=== PATIENT | female | born 1955 | race Caucasian/White ===

== ENCOUNTER → 2018-03-17 10:04 | Outpatient (CLI) | payer MEDICAID, SELFPAY ==
--- NOTE | 2018-03-17 10:11 | MM_ITS ---
MM Dig screening mamm BI w/CAD ORDERING PHYSICIAN : Lane Pozo MD PATIENT AGE: 62 years GENDER: Female INDICATION: Routine screening.. Previous benign excisional biopsy right breast. No new areas of concern reported on history sheet. No hormones. Noncontributory family history COMPARISON:.: Only prior is a [facility] Film screen mammogram from 2011 TECHNIQUE: Standard CC and MLO images were obtained. R2 CAD reviewed. FINDINGS: . Low-density breast with diffuse generalized fatty replacement. . No dominant mass nor suspicious calcifications. In either breast There are a few small scattered benign calcifications at lateral right and left breast. These small punctate benign-appearing calcifications can be followed in one year. IMPRESSION: No areas of significant concern follow-up in one year . Overall basically Stable bilateral mammogram since outside studies 2011 BI-RADS Category: 1 Negative RECOMMENDED FOLLOW-UP: 1YR - 1 YEAR FOLLOW-UP (A letter has been sent to the patient regarding results of the study.)
== END ==
PROVIDERS: Family Provider Internal Medicine Adolescent Medicine; PCP Internal Medicine Adolescent Medicine; Visit Provider Internal Medicine Adolescent Medicine
DX: Z12.31 Encounter for screening mammogram for malignant neoplasm of breast (principal)
CPT/HCPCS: 77067

== ENCOUNTER → 2018-12-22 08:47 | Outpatient (CLI) | payer MEDICARE, BC, SELFPAY ==
--- NOTE | 2018-12-22 08:56 | MM_ITS ---
MM Dig screening mamm BI w/CAD CAD Screening COMPARISON: Digital mammograms with CAD 03/17/2018 and outside analog mammograms 06/07/2012 INDICATION: There is no personal or family history of breast cancer. There has been a previous biopsy right breast for benign disease. TECHNIQUE: Standard CC and MLO images were obtained. R2 CAD reviewed. FINDINGS: The breasts are of low density composed primarily of fat with minimal scattered fibroglandular densities in each breast. There are couple benign-appearing calcination is in each breast. There is a cardiac pacing device overlying the axillary tail left breast. There is a possible small asymmetric density right breast 6:00 position. This could very well be a summation shadow but recommend patient return for spot compression views and ultrasound if this proves to be a true lesion. No other abnormality is seen. IMPRESSION: Fatty type breast parenchyma with possible new asymmetric density right breast BI-RADS Category: 0 Need Additional Imaging Evaluation RECOMMENDED FOLLOW-UP: IMM - IMMEDIATE FOLLOW-UP RECOMMENDED (A letter has been sent to the patient regarding results of the study.)
== END ==
PROVIDERS: PCP Internal Medicine Adolescent Medicine; Visit Provider Internal Medicine Adolescent Medicine
DX: Z12.31 Encounter for screening mammogram for malignant neoplasm of breast (principal)
CPT/HCPCS: 77067

== ENCOUNTER → 2018-12-30 19:13 | Outpatient (CLI) | payer MEDICARE, BC, MEDICAID, SELFPAY ==
[2018-12-30 20:24] LABS: Basophils % 0.7 % (0.1-2.0); Eosinophils # 0.1 K/mm3 (0.0-0.4); Eosinophils % 1.7 % (0.1-12.0); Hematocrit 35.8 % (37.0-47.0); Hemoglobin 11.7 g/dL (12.2-16.2); Lymphocytes % 52.8 % (10-50); Mean Corpuscular HGB Conc 32.7 g/dL (31.8-35.4); Mean Corpuscular Hemoglobin 30.4 pg (27.0-31.2); Mean Corpuscular Volume 93.1 fl (81-99); Mean Platelet Volume 8.4 fl (7.4-10.4); Monocytes # 0.5 K/mm3 (0.1-1.0); Monocytes % 8.3 % (1.7-9.3); Neutrophils # 2.1 K/mm3 (1.8-7.8); Neutrophils % 36.5 % (37.0-80.0); Platelet Count 212 K/mm3 (142-424); Red Blood Count 3.85 M/mm3 (4.20-5.40); Red Cell Distribution Width 14.6 % (11.5-17.5); White Blood Count 5.7 K/mm3 (4.8-10.8)
[2018-12-30 20:26] LABS: MANUAL DIFFERENTIAL MANUAL DIFFERENTIAL (MANUAL DIFF)
[2018-12-30 20:53] LABS: Alanine Aminotransferase 29 U/L (12-78); Albumin Level 2.8 gm/dL (3.4-5.0); Albumin/Globulin Ratio 0.7 (1.1-1.8); Alkaline Phosphatase 78 U/L (46-116); Aspartate Amino Transferase 25 U/L (15-37); Bilirubin,Total 0.2 mg/dL (0.2-1.0); Blood Urea Nitrogen 15 mg/dL (7-18); Calcium 8.7 mg/dL (8.5-10.1); Carbon Dioxide 34 mmol/L (21.0-32.0); Chloride 100 mmol/L (98-107); Creatinine,Serum 0.69 mg/dL (0.55-1.02); Estimated Glomerular Filt Rate 85 ml/min (>60); GFR (African American) 103 ML/MIN (>60); Globulin 3.9 gm/dl (1.3-3.2); Glucose 85 mg/dL (74-106); Sodium 141 mmol/L (136-145); Total Protein,Serum 6.7 gm/dL (6.4-8.2)
[2018-12-30 23:22] LABS: Anisocytosis 1+; Eosinophils % 5 % (0-3); Lymphocytes % 58 % (10-50); Monocytes % 6 % (2-9); Neutrophils % 30 % (42-76); Platelet Estimate Normal; Total Cells Counted 100
== END ==
PROVIDERS: Visit Provider Internal Medicine Adolescent Medicine
DX: D64.9 Anemia, unspecified (principal)
CPT/HCPCS: 80053; 85007; 85025

== ENCOUNTER → 2018-12-31 14:47 | Outpatient (CLI) | payer MEDICARE, BC, MEDICAID, SELFPAY ==
[2018-12-31 14:51] LABS: Microscopic, Urine URINE MICROSCOPIC (MICROSCOPIC)
[2018-12-31 15:07] LABS: Appearance,Urine CLEAR (Clear); Bilirubin,Urine Negative (Negative); Blood, Urine Negative (Negative); Color,Urine DK YELLOW (Yellow); Glucose,Urine (UA) Negative (Negative); Ketones,Urine TRACE (Negative); Leukocyte Esterase,Urine Negative (Negative); Nitrate,Urine Negative (Negative); Protein,Urine Negative (Negative); Specific Gravity, Urine 1.025 (1.005-1.030); Urobilinogen,Urine 0.2 EU/dl (0.2)
[2018-12-31 16:28] LABS: Bacteria,Urine Trace /lpf; WBC,Urine Occasional #/hpf (0-3)
== END ==
PROVIDERS: Visit Provider Internal Medicine Adolescent Medicine
DX: R56.9 Unspecified convulsions (principal)
CPT/HCPCS: 81001

== ENCOUNTER → 2019-02-10 14:22 | Outpatient (CLI) | payer MEDICARE, MEDICAID, SELFPAY ==
--- NOTE | 2019-02-10 14:28 | MM_ITS ---
MM Dig mamm DX unilat RT CAD, US breast RT complete INDICATION: Follow-up abnormal mammogram ORDERING PHYSICIAN: Lane Pozo MD PATIENT AGE: 63 years COMPARISON: 12/22/2018 TECHNIQUE: Problem-solving views of the right wrist along with right breast ultrasound FINDINGS: Average fibroglandular tissue. Minimal focus of asymmetric density in the central aspect of the right breast cc view are somewhat less distinct on spot compression views. There is a faint nodular density noted in the lower one half of the right breast on the MLO view at 5 x 3 mm. Right breast ultrasound: No cystic or solid nodules. Small nodes are present in the axilla. IMPRESSION: There is some minimal asymmetric density in the central aspect of the right breast which persist on the spot compression views but not demonstrated on the orthogonal view. A faint nodular area is noted in the inferior right breast on the MLO view. These findings are probably benign. Six-month follow-up recommended. Ultrasound is unremarkable BI-RADS Category: 3 Probably Benign Finding Short Term Follow-up RECOMMENDED FOLLOW-UP: 6M - 6 MONTH FOLLOW-UP (A letter has been sent to the patient regarding results of the study.)
== END ==
PROVIDERS: PCP Internal Medicine Adolescent Medicine; Visit Provider Internal Medicine Adolescent Medicine
DX: R92.8 Other abnormal and inconclusive findings on diagnostic imaging of breast (principal)
CPT/HCPCS: 76641; 77065

== ENCOUNTER → 2019-04-05 09:10 | Outpatient (CLI) | payer MEDICARE, MEDICAID, SELFPAY ==
--- NOTE | 2019-04-05 09:15 | CT_ITS ---
CT lung screening EXAM: CT LUNG LOW DOSE WO CONTRAST HISTORY: 30 pack-year smoking history, asymptomatic for lung cancer ITS.REASON: HX TOBACCO USE ORDERING PHYSICIAN: Torri Cooney APRN PATIENT AGE: 63 years COMPARISON: None TECHNIQUE: The exam was performed . On a GE Light Speed [address] scanner using 2.90 mGy CTDI. A low dose helical CT CHEST was performed on a multi-detector scanner. All CT scans at the facility use one or more dose reduction, viz: automated exposure control, ma/kV adjustment per patient size (including targeted exams where dose is matched to indication, i.e. head), or iterative reconstruction technique. The LDCT was performed in a facility that meets the criteria for the screening program. Data regarding this exam was submitted to ACR which is an approved registry. The order for this exam indicates that it came as a result of a lung cancer screening counseling shard decision-making visit that included all the elements required of such a visit including smoking cessation. The radiologist interpreting this exam meets the CMS criteria for the LDCT lung cancer screening program. The exam is reported using the Lung-RADS classification scale and reported to the ACR registry. NOTE: This study was performed for the specific purposes of lung cancer screening and is not an alternative to diagnostic chest CT. RADIATION DOSE: CTDI vol(CT dose Index-volume) = 2.90mG DLP (Dose Length Product) = 96.38 mGcm FINDINGS: Artifact is present from pacemaker placed by left subclavian approach. Coronary artery stents and/or calcifications noted. 5 mm noncalcified nodule right middle lobe axial image #41. Atelectatic or fibrotic change in the lingula. IMPRESSION: 1. Lung RADS Category: 3, probably benign 5 mm nodule right middle lobe 2. Other findings: coronary artery disease RECOMMENDATIONS: [address] follow-up
== END ==
PROVIDERS: PCP Nurse Practitioner Family; Visit Provider Nurse Practitioner Family
DX: Z12.2 Encounter for screening for malignant neoplasm of respiratory organs (principal); Z87.891 Personal history of nicotine dependence

== ENCOUNTER 2019-04-23 17:28 | Observation (INO) ==
[2019-04-23 17:49] LABS: ABG Base Excess 5.5 mmol/L (-2.4-2.3); ABG HCO3 30.1 mmhg (22.0-26.0); ABG Oxygen Saturation 95 % (90-100); ABG PCO2 48.4 mmhg (35.0-45.0); ABG PH 7.41 mmol/L (7.35-7.45); ABG PO2 81.8 mmhg (80-100); ABG TCO2 31.6 mmhg (23-27); Allen's Test Y; Oxygen 6 %
--- NOTE | 2019-04-23 18:05 | Emergency Department Note ---
ED Disposition Clinical Impression: COPD (chronic obstructive pulmonary disease), Obesity, ZULEYKA (obstructive sleep apnea), Hypertension Disposition: Still a Patient Condition on Discharge: Fair Referrals: Provider,Referral, [Referring] - - Critical Care Critical Care Time: No Attestation: On , the high probability of a clinically significant, sudden or life threatening deterioration of the following system(s) required my full and direct attention, intervention and personal management. The time I documented below is in addition to time spent performing reported procedures but includes the follo wing listed in this critical care notation. Medical Decision Making - Medical Records Medical records reviewed: Yes: I reviewed the patient's medical records. - Marc Inquiry Pt receiving controlled substance: No Marc was queried for this patient: No Vital Signs: 04/23/19 17:29 04/23/19 17:52 04/23/19 17:53 Temperature 98 F Temperature Source Oral Pulse Rate 77 80 Pulse Rate [Left Radial] 90 Respiratory Rate 24 Blood Pressure [Right Arm] 123/95 H Blood Pressure Mean [Right Arm] 104 Blood Pressure Source [Right Arm] Automatic Cuff Blood Pressure Position [Right Arm] Sitting 02 Sat by Pulse Oximetry 95 Oxygen Delivery Method Nasal Cannula Oxygen Flow Rate (LPM) 6 04/23/19 19:07 Temperature Temperature Source Pulse Rate Pulse Rate [Left Radial] 91 H Respiratory Rate Blood Pressure [Right Arm] 130/64 Blood Pressure Mean [Right Arm] 86 Blood Pressure Source [Right Arm] Automatic Cuff Blood Pressure Position [Right Arm] Sitting 02 Sat by Pulse Oximetry 93 L Oxygen Delivery Method Nasal Cannula Oxygen Flow Rate (LPM) 2 - Lab Data Lab Results 04/23/19 17:48: Specimen Source R/r, O2 % 6, ABG pH 7.41, ABG pCO2 48.4 H, ABG pO2 81.8, ABG HCO3 30.1 H, ABG Total CO2 31.6 H, ABG O2 Saturation 95, ABG Base Excess 5.5 H, Abdirizak Test Y 04/23/19 18:58: WBC 7.9, RBC 3.73 L, Hgb 10.4 L, Hct 34.1 L, MCV 91.5, MCH 27.9, MCHC 30.5 L, RDW 15.1, Plt Count 237, MPV 7.7, Neut % (Auto) 72.5, Lymph % (Auto) 18.4, [place] % (Auto) 8.6, Eos % (Auto) 0.2, Baso % (Auto) 0.3, Neut # (Auto) 5.8, Lymph # (Auto) 1.5, [place] # (Auto) 0.7, Eos # (Auto) 0.0, Baso # (Auto) 0.0 04/23/19 18:58: Sodium 139, Potassium 4.5, Chloride 100, Carbon Dioxide 29, Anion Gap 14.5, BUN 12, Creatinine 0.65, Estimated Creat Clear 76, Estimated GFR 91, Est GFR ( Amer) 111, Glucose 118 H, Calcium 8.9, Total Bilirubin 0.3, AST 24, ALT 30, Alkaline Phosphatase 79, Troponin I 0.02, Total Protein 7.9, Albumin 2.6 L, Globulin 5.3 H, Albumin/Globulin Ratio 0.5 L, Total Valproic Acid 64.4 04/23/19 18:58: Lactate 0.7 04/23/19 18:58: PT 12.0 H, INR 1.16 H, APTT 33.4 04/23/19 18:58: Urine Color Yellow, Urine Appearance Clear, Urine pH 7.0, Ur Specific [place] 1.020, Urine Protein 1+, Urine Glucose (UA) Negative, Urine Ketones Trace, Urine Blood 1+, Urine Nitrate Negative, Urine Bilirubin Negative, Urine Urobilinogen 1.0, Ur Leukocyte Esterase Negative, Urine RBC 5-10, Ur Squamous Epith Cells 5-10 Result diagrams: 04/23/19 18:58 04/23/19 18:58 Orders (Tests/Meds): ED MEDICATIONS Discontinued Medications Generic Name Dose Route Start Last Admin Trade Name Christopherq PRN Reason Stop Dose Admin Albuterol/Ipratropium 3 ml 04/23/19 19:40 Duoneb 3ml Neb IH 04/23/19 19:41 ONCE ONE Methylprednisolone Sodium Succinate 125 mg 04/23/19 17:42 04/23/19 19:17 Solu-Medrol 125mg/2ml Vial IV 04/23/19 17:43 125 mg ONCE ONE Administration ORDERS Category Date Time Status Chest XR -- portable [XR chest portable] Stat Exams 04/23/19 17:36 Taken BNP [B-Type Natriuretic Peptide] Stat Lab 04/23/19 18:58 Received D-Dimer Stat Lab 04/23/19 18:58 Results Levetiracetam (Keppra) Stat Lab 04/23/19 18:58 Received PT/PTT Stat Lab 04/23/19 18:58 Results Blood Culture Stat Micro 04/23/19 19:30 Ordered Arterial Blood Gas Stat RT 04/23/19 17:36 Ordered - Radiology Data #1 Image(s): Chest Image Reviewed: Yes I reviewed the patient's radiology image Preliminary Findings: Abnormal Chest x-ray portable: underpenetrated, postop changes, pulmonary vascular congestion, no pulmonary edema. - ECG Data Tracing #1 Normal sinus rhythm 91/min baseline artifact no acute findings ECG initial impression date: 04/23/19 ECG initial impression time: 19:45 Medical Decision Narrative: The patient improved after Solu-Medrol and neb treatments. Came less shaky and more talkative. Her EKG and troponin was negative for acute findings. Her BNP was 455 and her dimer was 650. The patient continued to deny having chest pain, shortness of breath has improved. I discussed with Dr. Pozo who was in the thoughts that she may have an upper respiratory infection that triggered an airway disease. He requested upper respiratory panel, IV antibiotics and continued neb treatments. The patient was admitted in a stable condition. General Adult HPI - General Chief complaint: Shortness of Breath/Dyspnea Stated complaint: sob Time Seen by Provider: 04/23/19 17:40 Mode of Arrival: EMS Limitations: No Limitations Description of Symptoms (Recalled from ER Triage Doc. by RN): to ed per squad with c/o weakness, sob, low o2 sats starting this am. NH states o2 sats of 82 % 4Lpt diaphoretic . pt wears 2L o2 24/7. pt with intermittent episodes of confusion. pt alert oriented to person and place. pt with snoring resp. currently on 6L o2 pt with diminished breath sounds dora. cpta duo neb - History of Present Illness HPI narrative: 63 years old white female with history of COPD who developed shortness of breath, weakness and became confused. Upon EMS arrival her saturations were in the 80s she received neb treatment oxygen and was brought to the ED for evaluation. Onset (ago): hour(s) Radiation: non-radiation Relieving factors: none Exacerbating factors: none Associated symptoms: denies other symptoms - Related Data Home Medications Medication Instructions Recorded Confirmed Amitriptyline HCl [Elavil 50mg 100 mg PO HS 04/23/19 04/23/19 tablet] Aspirin [Aspir 81] 81 mg PO DAILY 04/23/19 04/23/19 Atorvastatin Calcium [Atorvastatin 40 mg PO DAILY 04/23/19 04/23/19 40mg Tab] Carvedilol [Carvedilol 6.25mg Tab] 6.25 mg PO DAILY 04/23/19 04/23/19 Cetirizine HCl [Zyrtec] 10 mg PO DAILY 04/23/19 04/23/19 Clopidogrel Bisulfate [Plavix 75mg 75 mg PO DAILY 04/23/19 04/23/19 Tab] Divalproex Sodium [Depakote] 1,000 mg PO BID 04/23/19 04/23/19 Docusate Sodium [Colace] 100 mg PO DAILY 04/23/19 04/23/19 Donepezil HCl [Aricept 10mg 10 mg PO HS 04/23/19 04/23/19 tablet] Fluticasone Propionate [Flonase 1 spr NS DAILY 04/23/19 04/23/19 50mcg nasal spray 16gm] Furosemide [Lasix 40mg tablet] 40 mg PO DAILY 04/23/19 04/23/19 LORazepam [Ativan 2mg/ml inj] 2 mg IM NEEDED PRN 04/23/19 04/23/19 OXcarbazepine [Trileptal] 600 mg PO BID 04/23/19 04/23/19 Omeprazole Magnesium [Prilosec Otc 20 mg PO DAILY 04/23/19 04/23/19 20mg Tab] Omeprazole [Omeprazole 40mg 40 mg PO DAILY 04/23/19 04/23/19 Capsule] Potassium Chloride in 0.9%NaCl 20 meq PO DAILY 04/23/19 04/23/19 [Potassium Cl Conc 20 Meq/20 ml] levETIRAcetam [Keppra] 2,000 mg PO BID 04/23/19 04/23/19 levoFLOXacin [Levaquin 250mg 250 mg PO DAILY 04/23/19 04/23/19 tab] levoFLOXacin [Levaquin 500mg 500 mg PO DAILY 04/23/19 04/23/19 tab] predniSONE [Deltasone 20mg 20 mg PO BID 04/23/19 04/23/19 tablet] Allergies Allergy/AdvReac Type Severity Reaction Status Date / Time alendronate sodium Allergy Unknown I-HIVES Verified 04/23/19 19:17 [From FOSAMAX] Penicillins [PENICILLINS] Allergy Unknown I-HIVES Verified 04/23/19 19:17 Sulfa (Sulfonamide Allergy Unknown I-HIVES Verified 04/23/19 19:17 Antibiotics) [SULFA (SULFONAMIDE ANTIBIOTICS)] [facility] History - Hepatitis A Screen Drug use history?: No High risk sexual behaviors?: No History of sexually transmitted infection?: No Currently employed?: No Childcare worker?: No Do you have indoor plumbing?: Yes Do you have electricity?: Yes Attestation statement:: This patient has been screened for Hepatitis A risk factors. I have reviewed the patient's past medical history: Yes - Social History Alcohol Intake: never Occupational Status: other - Psychiatric History Expresses thoughts of harming self/others: None Suicide Plan Description: No Plan ROS Obtained: Yes All systems reviewed & no additional complaints Physical Exam - General General appearance: alert, in no apparent distress - Head Head exam: atraumatic, normocephalic, normal inspection - Eye Eye exam: Present: normal appearance, PERRL, EOMI - ENT ENT exam: Present: normal exam, normal oropharynx, mucous membranes moist, TM's normal bilaterally, normal external ear exam - Neck Neck exam: Present: normal inspection, full ROM, trachea midline. Absent: meningismus, lymphadenopathy - Chest Chest inspection: Present: normal inspection, symmetric chest wall rise. Absent: tenderness - Respiratory Respiratory exam: Present: normal lung sounds bilaterally. Absent: respiratory distress - Cardiovascular Cardiovascular exam: Present: regular rate, normal rhythm, normal heart sounds. Absent: JVD - Abdominal Exam Abdominal exam: Present: soft, normal bowel sounds. Absent: distention, tend erness, guarding - Extremities Exam Extremities exam: Present: normal inspection, full ROM, normal capillary refill. Absent: calf tenderness - Back Exam Back exam: Present: normal inspection. Absent: tenderness - Neurological Exam Neurological exam: Present: alert, oriented X3, CN II-XII intact, motor sensory deficit, reflexes normal - Psychiatric Psychiatric exam: Present: normal affect, normal mood - Skin Skin exam: Present: warm, dry, intact, normal color - Lymphatic Lymphatic Findings: no adenopathy
[2019-04-23 19:16] LABS: Microscopic, Urine URINE MICROSCOPIC (MICROSCOPIC)
[2019-04-23 19:29] LABS: Basophils % 0.3 % (0.1-2.0); Eosinophils % 0.2 % (0.1-12.0); Hematocrit 34.1 % (37.0-47.0); Hemoglobin 10.4 g/dL (12.2-16.2); Lymphocytes # 1.5 K/mm3 (0.7-4.5); Lymphocytes % 18.4 % (10-50); Mean Corpuscular HGB Conc 30.5 g/dL (31.8-35.4); Mean Corpuscular Volume 91.5 fl (81-99); Mean Platelet Volume 7.7 fl (7.4-10.4); Monocytes # 0.7 K/mm3 (0.1-1.0); Monocytes % 8.6 % (1.7-9.3); Neutrophils # 5.8 K/mm3 (1.8-7.8); Neutrophils % 72.5 % (37.0-80.0); Platelet Count 237 K/mm3 (142-424); Red Blood Count 3.73 M/mm3 (4.20-5.40); Red Cell Distribution Width 15.1 % (11.5-17.5); White Blood Count 7.9 K/mm3 (4.8-10.8)
[2019-04-23 19:37] LABS: Activated Partial Thrombo Time 33.4 seconds (23.6-34.0); INR 1.16 (0.9-1.1)
[2019-04-23 19:44] LABS: Albumin Level 2.6 gm/dL (3.4-5.0); Albumin/Globulin Ratio 0.5 (1.1-1.8); Anion Gap 14.5 mEq/L (5-15); Appearance,Urine CLEAR (Clear); Bilirubin,Total 0.3 mg/dL (0.2-1.0); Bilirubin,Urine Negative (Negative); Blood, Urine 1+ (Negative); Calcium 8.9 mg/dL (8.5-10.1); Color,Urine YELLOW (Yellow); Globulin 5.3 gm/dl (1.3-3.2); Glucose,Urine (UA) Negative (Negative); Ketones,Urine TRACE (Negative); Leukocyte Esterase,Urine Negative (Negative); Protein,Urine 1+ (Negative); Total Protein,Serum 7.9 gm/dL (6.4-8.2)
[2019-04-24 01:48] LABS: Coronavirus 229E Not Detected (NotDetected); Coronavirus NL63 Not Detected (NotDetected); Coronavirus OC43 Not Detected (NotDetected); Coronovirus HKU1,PCR Not Detected (NotDetected)
[2019-04-24 05:41] LABS: Basophils % 0.3 % (0.1-2.0); Eosinophils % 0.4 % (0.1-12.0); Hemoglobin 10.1 g/dL (12.2-16.2); Lymphocytes # 1.6 K/mm3 (0.7-4.5); Lymphocytes % 21.4 % (10-50); Mean Corpuscular HGB Conc 30.6 g/dL (31.8-35.4); Mean Corpuscular Volume 91.5 fl (81-99); Mean Platelet Volume 7.7 fl (7.4-10.4); Monocytes # 0.5 K/mm3 (0.1-1.0); Monocytes % 6.7 % (1.7-9.3); Neutrophils # 5.4 K/mm3 (1.8-7.8); Neutrophils % 71.2 % (37.0-80.0); Platelet Count 237 K/mm3 (142-424); Red Cell Distribution Width 14.9 % (11.5-17.5); White Blood Count 7.6 K/mm3 (4.8-10.8)
[2019-04-24 06:02] LABS: Anion Gap 11.1 mEq/L (5-15); Blood Urea Nitrogen 12 mg/dL (7-18); Calcium 8.8 mg/dL (8.5-10.1); Carbon Dioxide 31 mmol/L (21.0-32.0); Chloride 102 mmol/L (98-107); Glucose 107 mg/dL (74-106); Sodium 140 mmol/L (136-145)
--- NOTE | 2019-04-24 09:19 | History & Physical Report ---
*Admission Date: 04/23/19 *Chief complaint: Weakness, cough/congestion *History of present illness: 63-year-old white female with seizure disorder and COPD, resident of [facility] [place], who was recently treated with Levaquin therapy for COPD exacerbation, cough and mucus production who continued to feel worse and was transferred to the emergency department. Labs were not significantly abnormal but patient had crackles, rhonchi and felt very badly, admitted to hospital for COPD exacerbation and further antibiotic therapy, pulmonary toilet and more diagnostic testing. [facility] History I have reviewed the patient's past medical history: Yes Medical History: Reports:: Hypertension, Myocardial Infarction Denies:: Cancer, Diabetes Mellitus Type 1, Diabetes Mellitus Type 2, Internal Pacemaker, MRSA *Have you ever received a pneumonia vaccine?: Yes *Have you received a flu vaccine this season?: No Other Surgeries: No: Pacemaker Amputation: No Fractures: No - *Social History Smoking Status: Former smoker Tobacco Type: cigarettes # Packs/Day (cigarettes): 2 Alcohol Intake: never *Occupational Status:: retired, other Housing: [facility] *Travel in the last 8 weeks: Outside the [facility] - Psychiatric History Expresses thoughts of harming self/others: None Suicide Plan Description: No Plan Family Hx:: Unable to obtain, No significant family history Review of Systems - Review of Systems Review of systems:: pertinent systems reviewed and negative unless documented below This morning patient states she feels better, continues to suffer from a cough, Denies chest pain, abdominal pain, Meds Home Medications Medication Instructions Recorded Confirmed Type Amitriptyline HCl [Elavil 50mg 100 mg PO HS 04/23/19 04/24/19 History tablet] Aspirin [Aspir 81] 81 mg PO DAILY 04/23/19 04/24/19 History Atorvastatin Calcium [Atorvastatin 40 mg PO DAILY 04/23/19 04/24/19 History 40mg Tab] Carvedilol [Carvedilol 6.25mg Tab] 6.25 mg PO DAILY 04/23/19 04/24/19 History Cetirizine HCl [Zyrtec] 10 mg PO DAILY 04/23/19 04/24/19 History Clopidogrel Bisulfate [Plavix 75mg 75 mg PO DAILY 04/23/19 04/24/19 History Tab] Divalproex Sodium [Depakote] 1,000 mg PO BID 04/23/19 04/24/19 History Docusate Sodium [Colace] 100 mg PO DAILY 04/23/19 04/24/19 History Donepezil HCl [Aricept 10mg 10 mg PO HS 04/23/19 04/24/19 History tablet] Fluticasone Propionate [Flonase 1 spr NS DAILY 04/23/19 04/24/19 History 50mcg nasal spray 16gm] Furosemide [Lasix 40mg tablet] 40 mg PO DAILY 04/23/19 04/24/19 History LORazepam [Ativan 2mg/ml inj] 2 mg IM NEEDED PRN 04/23/19 04/24/19 History OXcarbazepine [Trileptal] 600 mg PO BID 04/23/19 04/24/19 History Omeprazole Magnesium [Prilosec Otc 20 mg PO DAILY 04/23/19 04/24/19 History 20mg Tab] Omeprazole [Omeprazole 40mg 40 mg PO DAILY 04/23/19 04/24/19 History Capsule] levETIRAcetam [Keppra] 2,000 mg PO BID 04/23/19 04/24/19 History levoFLOXacin [Levaquin 250mg 250 mg PO DAILY 04/23/19 04/24/19 History tab] levoFLOXacin [Levaquin 500mg 500 mg PO DAILY 04/23/19 04/24/19 History tab] predniSONE [Deltasone 20mg 20 mg PO BID 04/23/19 04/24/19 History tablet] Potassium Chloride [Klor-con 20 20 meq PO BID 04/24/19 04/24/19 History mEq tablet] Allergies Allergy/AdvReac Type Severity Reaction Status Date / Time alendronate sodium Allergy Unknown I-HIVES Verified 04/23/19 23:36 [From FOSAMAX] Penicillins [PENICILLINS] Allergy Unknown I-HIVES Verified 04/23/19 23:36 Sulfa (Sulfonamide Allergy Unknown I-HIVES Verified 04/23/19 23:36 Antibiotics) [SULFA (SULFONAMIDE ANTIBIOTICS)] Exam Vital signs and Labs for Last 24 Hours: Temp Pulse Resp BP Pulse Ox 97.3 F L 74 20 162/79 H 94 L 04/24/19 07:57 04/24/19 07:57 04/24/19 07:57 04/24/19 07:57 04/24/19 07:57 Laboratory Results - last 24 hr 04/23/19 17:48: Specimen Source R/r, O2 % 6, ABG pH 7.41, ABG pCO2 48.4 H, ABG pO2 81.8, ABG HCO3 30.1 H, ABG Total CO2 31.6 H, ABG O2 Saturation 95, ABG Base Excess 5.5 H, Abdirizak Test Y 04/23/19 18:58: WBC 7.9, RBC 3.73 L, Hgb 10.4 L, Hct 34.1 L, MCV 91.5, MCH 27.9, MCHC 30.5 L, RDW 15.1, Plt Count 237, MPV 7.7, Neut % (Auto) 72.5, Lymph % (Auto) 18.4, [place] % (Auto) 8.6, Eos % (Auto) 0.2, Baso % (Auto) 0.3, Neut # (Auto) 5.8, Lymph # (Auto) 1.5, [place] # (Auto) 0.7, Eos # (Auto) 0.0, Baso # (Auto) 0.0 04/23/19 18:58: Sodium 139, Potassium 4.5, Chloride 100, Carbon Dioxide 29, Anion Gap 14.5, BUN 12, Creatinine 0.65, Estimated Creat Clear 76, Estimated GFR 91, Est GFR ( Amer) 111, Glucose 118 H, Calcium 8.9, Total Bilirubin 0.3, AST 24, ALT 30, Alkaline Phosphatase 79, Troponin I 0.02, Total Protein 7.9, Albumin 2.6 L, Globulin 5.3 H, Albumin/Globulin Ratio 0.5 L, Total Valproic Acid 64.4 04/23/19 18:58: Lactate 0.7 04/23/19 18:58: B-Natriuretic Peptide 455 H 04/23/19 18:58: PT 12.0 H, INR 1.16 H, APTT 33.4, D-Dimer 593 H* 04/23/19 18:58: Urine Color Yellow, Urine Appearance Clear, Urine pH 7.0, Ur Specific [place] 1.020, Urine Protein 1+, Urine Glucose (UA) Negative, Urine Ketones Trace, Urine Blood 1+, Urine Nitrate Negative, Urine Bilirubin Negative, Urine Urobilinogen 1.0, Ur Leukocyte Esterase Negative, Urine RBC 5-10, Ur Squamous Epith Cells 5-10 04/23/19 23:15: Troponin I < 0.02 04/24/19 01:30: Chlamy pneumoniae PCR Not detected, Adenovirus (PCR) Not detected, B. pertussis DNA (PCR) Not detected, Coronavirus OC43 (PCR) Not detected, Coronavirus HKU1 (PCR) Not detected, Coronavirus 229E (PCR) Not detected, Coronavirus NL63 (PCR) Not detected, Human Metapneumovir PCR Not detected, Influenza A (H1) PCR Not detected, Influ A (H1N1/09) PCR Not detected, Influenza A (H3) PCR Not detected, Influenza Type A (PCR) Not detected, Influenza Type B (PCR) Not detected, M. pneumoniae (PCR) Not detected, Parainfluenza 1 (PCR) Not detected, Parainfluenza 2 (PCR) Not detected, Parainfluenza 3 (PCR) Not detected, Parainfluenza 4 (PCR) Not detected, RSV (PCR) Not detected, Entero/Rhino (PCR) Not detected 04/24/19 05:15: Sodium 140, Potassium 4.1, Chloride 102, Carbon Dioxide 31, Anion Gap 11.1, BUN 12, Creatinine 0.64, Estimated Creat Clear 46, Estimated GFR 93, Est GFR ( Amer) 113, Glucose 107 H, Calcium 8.8, Troponin I < 0.02 04/24/19 05:15: WBC 7.6, RBC 3.60 L, Hgb 10.1 L, Hct 33.0 L, MCV 91.5, MCH 28.0, MCHC 30.6 L, RDW 14.9, Plt Count 237, MPV 7.7, Neut % (Auto) 71.2, Lymph % (Auto) 21.4, [place] % (Auto) 6.7, Eos % (Auto) 0.4, Baso % (Auto) 0.3, Neut # (Auto) 5.4, Lymph # (Auto) 1.6, [place] # (Auto) 0.5, Eos # (Auto) 0.0, Baso # (Auto) 0.0 I & O for Last 24 hours: Intake & Output 04/21/19 04/22/19 04/23/19 04/24/19 11:59 11:59 11:59 11:59 Intake Total 404 / 404 Balance 404 / 404 Weight 241 lb 3 oz Narrative: Patient is alert. Responsive. States she feels better. Cranial nerves intact, Rhonchi and crackles in both lower lung aburto. Abdomen soft and nontender. No edema noted. ENT exam clear. Neurologic exam nonfocal. Assessment and Plan (1) COPD (chronic obstructive pulmonary disease) Current visit: Yes Status: Acute Category: Medical Code(s): J44.9 - Chronic obstructive pulmonary disease, unspecified Possible exacerbation but chest x-ray is somewhat suspicious for fluid overload. Repeat PA and lateral chest x-ray today. Elevated BNP noted but patient clinically does not appear to be fluid overloaded. (2) ZULEYKA (obstructive sleep apnea) Current visit: Yes Status: Acute Category: Medical Code(s): G47.33 - Obstructive sleep apnea (adult) (pediatric) (3) Obesity Current visit: Yes Status: Acute Category: Medical Code(s): E66.9 - Obesity, unspecified
--- NOTE | 2019-04-24 10:59 | Pharmacy Consult Notes ---
[facility] VTE Monitoring - Patient Demographics Admission date: 04/24/19 Report Date: 04/24/19 Time: 10:59 Allergies/Adverse Reactions: Patient Allergies alendronate sodium [From FOSAMAX] Allergy (Unknown, Verified 04/23/19 23:36) I-HIVES Penicillins [PENICILLINS] Allergy (Unknown, Verified 04/23/19 23:36) I-HIVES Sulfa (Sulfonamide Antibiotics) [SULFA (SULFONAMIDE ANTIBIOTICS)] Allergy (Unknown, Verified 04/23/19 23:36) I-HIVES Height: 1.6 m Weight: 109.401 kg Patient Problems: Current Active Problems (Updated 04/23/19 @ 20:09 by Rodriguez Larkin MD) COPD (chronic obstructive pulmonary disease) (Acute) Obesity (Acute) ZULEYKA (obstructive sleep apnea) (Acute) Hypertension (Acute) - VTE Risk Labs: VTE Related Lab Results Hgb 10.1 g/dL (12.2-16.2) L 04/24/19 05:15 Hct 33.0 % (37.0-47.0) L 04/24/19 05:15 Plt Count 237 K/mm3 (142-424) 04/24/19 05:15 PT 12.0 seconds (9.4-11.8) H 04/23/19 18:58 INR 1.16 (0.9-1.1) H 04/23/19 18:58 APTT 33.4 seconds (23.6-34.0) 04/23/19 18:58 BUN 12 mg/dL (7-18) 04/24/19 05:15 Creatinine 0.64 mg/dL (0.55-1.02) 04/24/19 05:15 Estimated Creat Clear 46 mL/min (50-200) 04/24/19 05:15 VTE Score: 9 VTE Risk Level: Moderate Risk - Prophylaxis Types of VTE Prophylaxis: TEDS Knee High (SONI HOSE ORDER PLACED)
[2019-04-25 06:57] LABS: Basophils # 0.1 K/mm3 (0-0.2); Basophils % 0.6 % (0.1-2.0); Eosinophils # 0.1 K/mm3 (0.0-0.4); Eosinophils % 0.6 % (0.1-12.0); Hematocrit 39.3 % (37.0-47.0); Hemoglobin 12.2 g/dL (12.2-16.2); Lymphocytes # 2.3 K/mm3 (0.7-4.5); Lymphocytes % 22.7 % (10-50); Mean Corpuscular HGB Conc 31.2 g/dL (31.8-35.4); Mean Corpuscular Volume 90.8 fl (81-99); Mean Platelet Volume 7.3 fl (7.4-10.4); Monocytes # 0.8 K/mm3 (0.1-1.0); Monocytes % 7.6 % (1.7-9.3); Neutrophils # 6.9 K/mm3 (1.8-7.8); Neutrophils % 68.4 % (37.0-80.0); Platelet Count 277 K/mm3 (142-424); Red Blood Count 4.33 M/mm3 (4.20-5.40); White Blood Count 10.1 K/mm3 (4.8-10.8)
[2019-04-25 07:31] LABS: Albumin Level 2.6 gm/dL (3.4-5.0); Albumin/Globulin Ratio 0.6 (1.1-1.8); Anion Gap 14.3 mEq/L (5-15); Bilirubin,Total 0.3 mg/dL (0.2-1.0); Calcium 8.8 mg/dL (8.5-10.1); Globulin 4.6 gm/dl (1.3-3.2); Total Protein,Serum 7.2 gm/dL (6.4-8.2)
--- NOTE | 2019-04-25 08:42 | Progress Note ---
Internal Medicine - PN: Subj *Date: 04/25/19 *Time: 08:41 Interval history: Patient sitting up on the side of the chair/bed, feels better, eating breakfast vigorously. Exam Vital signs and Labs for Last 24 Hours: Temp Pulse Resp BP Pulse Ox 97.8 F 101 H 20 159/86 H 89 L 04/25/19 04:00 04/25/19 07:33 04/25/19 04:00 04/25/19 04:00 04/25/19 07:33 Laboratory Results - last 24 hr 04/25/19 06:28: WBC 10.1 D, RBC 4.33, Hgb 12.2, Hct 39.3, MCV 90.8, MCH 28.3, MCHC 31.2 L, RDW 15.0, Plt Count 277, MPV 7.3 L, Neut % (Auto) 68.4, Lymph % (Auto) 22.7, Hendricks % (Auto) 7.6, Eos % (Auto) 0.6, Baso % (Auto) 0.6, Neut # (Auto) 6.9, Lymph # (Auto) 2.3, Hendricks # (Auto) 0.8, Eos # (Auto) 0.1, Baso # (Auto) 0.1 04/25/19 06:28: Sodium 140, Potassium 4.3, Chloride 100, Carbon Dioxide 30, Anion Gap 14.3, BUN 17 D, Creatinine 0.68, Estimated Creat Clear 46, Estimated GFR 87, Est GFR ( Amer) 105, Glucose 78, Calcium 8.8, Total Bilirubin 0.3, AST 35 D, ALT 31, Alkaline Phosphatase 85, Total Protein 7.2, Albumin 2.6 L, Globulin 4.6 H, Albumin/Globulin Ratio 0.6 L I & O for Last 24 hours: Intake & Output 04/22/19 04/23/19 04/24/19 04/25/19 11:59 11:59 11:59 11:59 Intake Total 404 / 404 850 / 850 Balance 404 / 404 850 / 850 Weight 241 lb 3 oz Microbiology Reports for the Last 24 Hours: Microbiology 04/24/19 08:47 Sputum - Expectorated Sputum Gram Stain - Final Narrative: Some rhonchi in both bases, minor crackles. However better air entry. Heart rate regular. Abdomen soft, tremulous but this is her baseline. Alert, oriented x3. Assessment and Plan (1) COPD (chronic obstructive pulmonary disease) Current visit: Yes Status: Acute Category: Medical Code(s): J44.9 - Chronic obstructive pulmonary disease, unspecified (2) ZULEYKA (obstructive sleep apnea) Current visit: Yes Status: Acute Category: Medical Code(s): G47.33 - Obstructive sleep apnea (adult) (pediatric) (3) Obesity Current visit: Yes Status: Acute Category: Medical Code(s): E66.9 - Obesity, unspecified - Assessment and plan all Dx Assessment and Plan for all problems:: Overall improving. Stop IV fluids. 1 dose of Lasix given history of fluid overload. Await sputum culture results and probable transfer back to [facility] tomorrow.
--- NOTE | 2019-04-26 07:49 | Discharge Summary ---
General - General Admission date:: 04/23/19 Discharge date: 04/26/19 HPI HPI: 63-year-old white female with seizure disorder and COPD, resident of assisted in [place], who was recently treated with Levaquin therapy for COPD exacerbation, cough and mucus production who continued to feel worse and was transferred to the emergency department. Labs were not significantly abnormal but patient had crackles, rhonchi and felt very badly, admitted to hospital for COPD exacerbation and further antibiotic therapy, pulmonary toilet and more diagnostic testing. Hospital Course Hospital Course: Upon admission antibiotic coverage was broadened. Blood cultures were obtained and patient treated for worsening COPD exacerbation vs pneumonia. Symptoms defervesced. Stable on baseline oxygen requirement. Transition back to oral Levaquin for discharge. Blood culture and sputum cultures negative. Patient at baseline alertness, denies chest pain, shortness of breath, nausea vomiting. Hemodynamically stable on day of discharge. Meeting criteria for discharge back to nursing facility. Plan to finish 750 mg of Levaquin daily for the next 5 days. Continue steroids as previously prescribed. Continue aggressive breathing treatments and COPD treatment at assisted.. Medically stable for discharge Objective Vital signs: Temp Pulse Resp BP Pulse Ox 98.4 F 77 20 116/61 95 04/26/19 04:00 04/26/19 06:26 04/26/19 04:00 04/26/19 04:00 04/26/19 06:26 Narrative: Due to body habitus, respiratory exam difficult. Poor air movement in bases with some rhonchi in both bases Heart rate regular Abdomen soft tremulous but this is her baseline Alert, oriented x3. Results Labs on day of discharge: Preliminary micro results at discharge 04/23/19 18:58 Blood Culture - Preliminary Blood NO GROWTH AFTER 48 HOURS 04/23/19 18:58 Blood Culture - Preliminary Blood NO GROWTH AFTER 48 HOURS 04/24/19 08:47 Sputum Culture - Preliminary Sputum - Expectorated Sputum DS: Diagnosis - Discharge Diagnosis (1) COPD (chronic obstructive pulmonary disease) Status: Chronic (2) ZULEYKA (obstructive sleep apnea) Status: Chronic (3) Obesity Status: Chronic (4) COPD exacerbation Status: Acute Discharge Plan - Patient Discharge Instructions Patient Instructions: DI for Chronic Obstructive Pulmonary Disease - Follow up Plan Disposition: er Intermediate Care [facility] Home Medications: Home Medications Medication Instructions Recorded Confirmed Type Atorvastatin Calcium [Atorvastatin 40 mg PO DAILY 04/23/19 04/24/19 History 40mg Tab] Carvedilol [Carvedilol 6.25mg Tab] 6.25 mg PO BID 04/23/19 04/24/19 History Cetirizine HCl [Zyrtec] 10 mg PO DAILY 04/23/19 04/24/19 History Docusate Sodium [Colace] 100 mg PO DAILY 04/23/19 04/24/19 History Donepezil HCl [Aricept 10mg 10 mg PO HS 04/23/19 04/24/19 History tablet] Fluticasone Propionate [Flonase 1 spr NS DAILY 04/23/19 04/24/19 History 50mcg nasal spray 16gm] Furosemide [Lasix 40mg tablet] 40 mg PO BIDL 04/23/19 04/24/19 History LORazepam [Ativan 2mg/ml inj] 2 mg IM NEEDED PRN 04/23/19 04/24/19 History OXcarbazepine [Trileptal] 600 mg PO BID 04/23/19 04/24/19 History Omeprazole [Omeprazole 40mg 40 mg PO DAILY 04/23/19 04/24/19 History Capsule] levETIRAcetam [Keppra] 2,000 mg PO BID 04/23/19 04/24/19 History predniSONE [Deltasone 20mg 20 mg PO BID 04/23/19 04/24/19 History tablet] Acetaminophen [Acetaminophen 325mg 650 mg PO Q4HP PRN 04/24/19 04/24/19 History tab] Albuterol Sulfate [Albuterol HFA 2 puffs IH Q6HP PRN 04/24/19 04/24/19 History Inhaler] Amitriptyline HCl 100 mg PO HS 04/24/19 04/24/19 History Aspirin [Aspirin 81mg chewable 81 mg PO DAILY 04/24/19 04/24/19 History tab] Divalproex Sodium [Depakote ER] 1,000 mg PO BID 04/24/19 04/24/19 History Levothyroxine Sodium 150 mcg PO DAILY 04/24/19 04/24/19 History [Levothyroxine 150mcg (0.15mg) Tab] Loperamide HCl [Imodium 2 mg 2 mg PO DAILYP PRN 04/24/19 04/24/19 History capsule] Magnesium Oxide 400 mg PO BID 04/24/19 04/24/19 History Melatonin 10 mg PO HS 04/24/19 04/24/19 History Nitroglycerin 0.4 mg SL Q5MINP PRN 04/24/19 04/24/19 History Sherrill-3 Fatty Acids/Fish Oil [Fish 1 each PO HS 04/24/19 04/24/19 History Oil 1,000 mg Capsule] Ondansetron [Ondansetron Odt 8mg 8 mg PO Q8HP PRN 04/24/19 04/24/19 History Tab] Potassium Chloride [Klor-con 20 20 meq PO BID 04/24/19 04/24/19 History mEq tablet] Simethicone [Gas Relief 80] 80 mg PO TIDP PRN 04/24/19 04/24/19 History Tramadol HCl [Ultram 50mg 50 mg PO DAILYP PRN 04/24/19 04/24/19 History tablet] diphenhydrAMINE HCl 25 mg PO Q6HP PRN 04/24/19 04/24/19 History [Diphenhydramine HCl] guaiFENesin [Robitussin 200mg/10mL 200 mg PO Q6HP PRN 04/24/19 04/24/19 History Syrup Udc] levoFLOXacin [Levaquin 750mg 750 mg PO 2100 tablet 04/26/19 Rx tablet] Prescriptions/Medication Reconciliation: New levoFLOXacin [Levaquin 750mg tablet] 750 mg PO 2100 tablet Continued Donepezil HCl [Aricept 10mg tablet] 10 mg PO HS Fluticasone Propionate [Flonase 50mcg nasal spray 16gm] 1 spr NS DAILY predniSONE [Deltasone 20mg tablet] 20 mg PO BID OXcarbazepine [Trileptal] 600 mg PO BID Omeprazole [Omeprazole 40mg Capsule] 40 mg PO DAILY levETIRAcetam [Keppra] 2,000 mg PO BID Furosemide [Lasix 40mg tablet] 40 mg PO BIDL Docusate Sodium [Colace] 100 mg PO DAILY Cetirizine HCl [Zyrtec] 10 mg PO DAILY Atorvastatin Calcium [Atorvastatin 40mg Tab] 40 mg PO DAILY Potassium Chloride [Klor-con 20 mEq tablet] 20 meq PO BID Aspirin [Aspirin 81mg chewable tab] 81 mg PO DAILY Divalproex Sodium [Depakote ER] 1,000 mg PO BID Albuterol Sulfate [Albuterol HFA Inhaler] 2 puffs IH Q6HP PRN PRN Reason: Shortness Of Breath Or Wheezing guaiFENesin [Robitussin 200mg/10mL Syrup Udc] 200 mg PO Q6HP PRN PRN Reason: Cough Magnesium Oxide 400 mg PO BID Melatonin 10 mg PO HS Sherrill-3 Fatty Acids/Fish Oil [Fish Oil 1,000 mg Capsule] 1 each PO HS Nitroglycerin 0.4 mg SL Q5MINP PRN PRN Reason: Chest Pain Loperamide HCl [Imodium 2 mg capsule] 2 mg PO DAILYP PRN PRN Reason: Diarrhea Ondansetron [Ondansetron Odt 8mg Tab] 8 mg PO Q8HP PRN PRN Reason: Nausea LORazepam [Ativan 2mg/ml inj] 2 mg IM NEEDED PRN PRN Reason: seizure Carvedilol [Carvedilol 6.25mg Tab] 6.25 mg PO BID Amitriptyline HCl 100 mg PO HS Levothyroxine Sodium [Levothyroxine 150mcg (0.15mg) Tab] 150 mcg PO DAILY Acetaminophen [Acetaminophen 325mg tab] 650 mg PO Q4HP PRN PRN Reason: As Needed For Fever Or Pain Simethicone [Gas Relief 80] 80 mg PO TIDP PRN PRN Reason: Gas Pain And Discomfort diphenhydrAMINE HCl [Diphenhydramine HCl] 25 mg PO Q6HP PRN PRN Reason: Itching Tramadol HCl [Ultram 50mg tablet] 50 mg PO DAILYP PRN PRN Reason: PAIN Discontinued levoFLOXacin [Levaquin 500mg tab] 500 mg PO DAILY
[2019-04-26 11:46] VITALS: BP 145/83
== END 2019-04-26 14:40 ==
LOC: 2ND 17:28 → ER 17:28 → 2ND 21:08
PROVIDERS: ADMIT Internal Medicine Adolescent Medicine; ATTEND Internal Medicine Adolescent Medicine
DX: Z88.0 Allergy status to penicillin; Z68.41 Body mass index [BMI] 40.0-44.9, adult; G47.33 Obstructive sleep apnea (adult) (pediatric); Z88.8 Allergy status to other drugs, medicaments and biological substances; Z79.82 Long term (current) use of aspirin; I10 Essential (primary) hypertension; J44.1 Chronic obstructive pulmonary disease with (acute) exacerbation; Z88.2 Allergy status to sulfonamides; Z79.899 Other long term (current) drug therapy; E66.9 Obesity, unspecified; Z79.2 Long term (current) use of antibiotics; G40.909 Epilepsy, unspecified, not intractable, without status epilepticus
CPT/HCPCS: 36415; 71010; 71020; 71045; 71046; 80048; 80053; 80164; 80177; 81001; 82803; 83605; 83880; 84484; 85025; 85378; 85610; 85730; 87040; 87070; 87077; 87186; 87205; 87486; 87581; 87633; 87798; 93005; 94640; 94761; 96365; 96375; 99285; G0378; J1956

== ENCOUNTER → 2019-07-27 14:24 | Outpatient (CLI) | payer MEDICARE, MEDICAID, SELFPAY ==
--- NOTE | 2019-07-27 14:27 | MM_ITS ---
PROCEDURE: MM DIG MAMM DX UNILAT RT CAD CLINICAL INDICATION: 6 MONTH F/U Follow-up abnormal mammogram COMPARISON: [facility] [employer] from 06/07/2012 [facility] MM Dig screening mamm BI w/CAD from 03/17/2018 [facility] MM Dig screening mamm BI w/CAD from 12/22/2018 [facility] MM Dig mamm DX unilat RT CAD from 02/10/2019 TECHNIQUE: Standard images performed along with spot compression views and right breast ultrasound FINDINGS: Average fibroglandular tissue. No malignant appearing mass or malignant-appearing microcalcification. There is a small lobulated density in the mid aspect of the right breast at 5 mm the small nodular density noted in the inferior 1/3 of the right breast does not appear significantly changed from the previous exam. Right breast ultrasound: At 3 o'clock there is a 5 mm cyst. At 9 o'clock there is a 4 mm cyst. No suspicious nodules are evident. IMPRESSION: Probably benign findings. There is a new nodular density in the central aspect of the right breast which is probably benign. This may correspond to the 1 of the cysts seen on the ultrasound. No evidence of malignancy BI-RAD Category: 3 Probably Benign Finding Short Term Follow-up FOLLOW-UP: 6M 6Month Follow-up (A letter has been sent to the patient regarding results of the study.) Dictated by: Abdirizak Neumann MD 07/31/2019 22:47 Electronically signed by Abdirizak Neumann MD in [place] 07/31/2019 22:48
== END ==
PROVIDERS: PCP Internal Medicine Adolescent Medicine; Visit Provider Internal Medicine Adolescent Medicine
DX: R92.8 Other abnormal and inconclusive findings on diagnostic imaging of breast (principal)
CPT/HCPCS: 76641; 77065

== ENCOUNTER → 2019-08-08 10:43 | Outpatient (POV) | payer MEDICARE, MEDICAID, SELFPAY ==
[2019-08-08 11:00] VITALS: BP 141/61; PULSE 78; RESP 20; O2SAT 96; BMI 35.3
--- NOTE | 2019-08-09 08:56 | HMH.PMCON ---
Assessment and Plan (1) Degenerative disc disease Current visit: Yes Status: Chronic Qualifiers: Spinal region: lumbar Qualified Code(s): M51.36 - Other intervertebral disc degeneration, lumbar region Category: Medical (2) Lumbar spondylosis Current visit: Yes Status: Chronic Category: Medical Code(s): M47.816 - Spondylosis without myelopathy or radiculopathy, lumbar region (3) Knee pain Current visit: Yes Status: Chronic Category: Medical Code(s): M25.569 - Pain in unspecified knee - Assessment and plan all Dx Assessment and Plan for all problems:: Schedule medial branch block for the patient L3-L4 L4-L5 L5-S1 bilaterally. We will see if this is beneficial for her. We did discuss potential neurotomy in the diagnostic nature of this. Patient is asking about narcotic medications. Patient has failed a pill count with us in the past. I discussed with her that we would not be prescribing any narcotic medications. Patient is not on any anticoagulation therapy. I will follow-up with her after her injection reassess her symptoms at that time. Dr. Centeno has reviewed this note and agrees with this plan of care. This note was dictated using voice recognition software and may contain errors or omissions HPI - Data of Consult Consult date: 08/08/19 Requesting Physician: Cely Perkins APRN Primary Care Provider: Lane Pozo MD - Consult Narrative Reason for consult: Back pain, leg pain, knee pain History of present illness: Ms. Perkins is a 64 year old female who presents today for consultation in regards to her back and knee pain. Patient was seen several years ago and discharged due to an inappropriate pill count during that time she did receive some injection therapy. However she did not find it beneficial. Patient and I discussed about her pain is mostly focal in her low back and on her knee. We discussed which area we would start treating first we discussed decided that the back is a bigger issue for her at this time. Patient and I discussed a medial branch block/facet joint injection. She has no radiation of pain into her legs. She has difficulty with any kind of twisting motion. She is tried and failed physical therapy, medications, anti-inflammatories. [facility] CC: Cely Perkins APRN [facility] History I have reviewed the patient's past medical history: Yes Medical History: Reports:: Diabetes Mellitus Type 2, Hyperlipidemia, Hypertension, Internal Pacemaker, Myocardial Infarction Denies:: Cancer, Diabetes Mellitus Type 1, MRSA *Have you ever received a pneumonia vaccine?: Yes *Have you received a flu vaccine this season?: Yes Other Medical History: Reports: Hypothyroidism Laterality Cases: Right: Lumpectomy Other Surgeries: Yes: Cholecystectomy, Hernia Repair, Hysterectomy-Total, Pacemaker, Other ( nerve rotation , gum) Amputation: No Fractures: No - *Social History Smoking Status: Former smoker Tobacco Type: cigarettes # Packs/Day (cigarettes): 2 Alcohol Intake: never *Occupational Status:: retired, other Housing: jail Household Members: other *Travel in the last 8 weeks: None Family Hx:: Unable to obtain, No significant family history Review of Systems - Review of Systems ROS General: no recent weight change, no fever, no sleep disturbances Respiratory: no cough, no shortness of air, no recurring pulmonary infections Cardiovascular/Peripheral Vascular: No chest pain, No palpitations, no edema, no shortness of breath. Gastrointestinal: no incontinence, normal bowel movements reported Genitourinary: no incontinence Musculoskeletal: Back pain, knee pain Psychiatric: normal mood/ affect Neurological: [denies weakness in extremities], [denies balance issues] Meds Home Medications Medication Instructions Recorded Confirmed Type Atorvastatin Calcium [Atorvastatin 40 mg PO DAILY 04/23/19
--- NOTE | 2019-08-09 09:00 | P.CONS_ITS ---
Assessment and Plan (1) Degenerative disc disease Current visit: Yes Status: Chronic Qualifiers: Spinal region: lumbar Qualified Code(s): M51.36 - Other intervertebral disc degeneration, lumbar region Category: Medical (2) Lumbar spondylosis Current visit: Yes Status: Chronic Category: Medical Code(s): M47.816 - Spondylosis without myelopathy or radiculopathy, lumbar region (3) Knee pain Current visit: Yes Status: Chronic Category: Medical Code(s): M25.569 - Pain in unspecified knee - Assessment and plan all Dx Assessment and Plan for all problems:: Schedule medial branch block for the patient L3-L4 L4-L5 L5-S1 bilaterally. We will see if this is beneficial for her. We did discuss potential neurotomy in the diagnostic nature of this. Patient is asking about narcotic medications. Patient has failed a pill count with us in the past. I discussed with her that we would not be prescribing any narcotic medications. Patient is not on any anticoagulation therapy. I will follow-up with her after her injection reassess her symptoms at that time. Dr. Centeno has reviewed this note and agrees with this plan of care. This note was dictated using voice recognition software and may contain errors or omissions HPI - Data of Consult Consult date: 08/08/19 Requesting Physician: Cely Perkins APRN Primary Care Provider: Lane Pozo MD - Consult Narrative Reason for consult: Back pain, leg pain, knee pain History of present illness: Ms. Perkins is a 64 year old female who presents today for consultation in regards to her back and knee pain. Patient was seen several years ago and discharged due to an inappropriate pill count during that time she did receive some injection therapy. However she did not find it beneficial. Patient and I discussed about her pain is mostly focal in her low back and on her knee. We discussed which area we would start treating first we discussed decided that the back is a bigger issue for her at this time. Patient and I discussed a medial branch block/facet joint injection. She has no radiation of pain into her legs. She has difficulty with any kind of twisting motion. She is tried and failed physical therapy, medications, anti-inflammatories. She is continuing therapy at her long term at this time. CC: Cely Perkins APRN [facility] History I have reviewed the patient's past medical history: Yes Medical History: Reports:: Diabetes Mellitus Type 2, Hyperlipidemia, Hypertension, Internal Pacemaker, Myocardial Infarction Denies:: Cancer, Diabetes Mellitus Type 1, MRSA *Have you ever received a pneumonia vaccine?: Yes *Have you received a flu vaccine this season?: Yes Other Medical History: Reports: Hypothyroidism Laterality Cases: Right: Lumpectomy Other Surgeries: Yes: Cholecystectomy, Hernia Repair, Hysterectomy-Total, Pacemaker, Other ( nerve rotation , gum) Amputation: No Fractures: No - *Social History Smoking Status: Former smoker Tobacco Type: cigarettes # Packs/Day (cigarettes): 2 Alcohol Intake: never *Occupational Status:: retired, other Housing: long term Household Members: other *Travel in the last 8 weeks: None Family Hx:: Unable to obtain, No significant family history Review of Systems - Review of Systems ROS General: no recent weight change, no fever, no sleep disturbances Respiratory: no cough, no shortness of air, no recurring pulmonary infections Cardiovascular/Peripheral Vascular: No chest pain, No palpitations, no edema, no shortness of breath. Gastrointestinal: no incon
== END ==
PROVIDERS: PCP Internal Medicine Adolescent Medicine; Visit Provider Clinical Nurse Specialist Family Health
DX: M51.36 Other intervertebral disc degeneration, lumbar region (principal); M47.816 Spondylosis without myelopathy or radiculopathy, lumbar region; M25.569 Pain in unspecified knee
CPT/HCPCS: 99202

== ENCOUNTER → 2019-09-13 15:20 | Outpatient (CLI) | payer MEDICARE, MEDICAID, SELFPAY ==
--- NOTE | 2019-09-13 15:24 | CT_ITS ---
PROCEDURE: CT HEAD/BRAIN WO CON CLINICAL INDICATION: SEIZURES Seizure disorder, multiple syncopal episodes COMPARISON: [facility] CT HEAD W/O CONTRAST from 05/08/2017 TECHNIQUE: Axial images obtained. All CT scans at the facility use one or more dose reduction, viz: automated exposure control, ma/kV adjustment per patient size (including targeted exams where dose is matched to indication, i.e. head), or iterative reconstruction technique. FINDINGS: No midline shift, mass effect, intracranial hemorrhage, hydrocephalus, or extra-axial fluid collection is evident. There is generalized atrophy with hypoattenuation of the periventricular white matter consistent with microangiopathic changes. The calvarium has an unremarkable appearance. No mastoid effusion. No sinus air-fluid level. IMPRESSION: No acute intracranial finding Dictated by: Abdirizak Neumann MD 09/13/2019 16:46 Electronically signed by Abdirizak Neumann MD in [place] 09/13/2019 16:46
== END ==
PROVIDERS: PCP Internal Medicine Adolescent Medicine; Visit Provider Nurse Practitioner Family
DX: R56.9 Unspecified convulsions (principal)
CPT/HCPCS: 70450

== ENCOUNTER → 2019-10-10 14:40 | Outpatient (POV) | payer MEDICARE, MEDICAID, SELFPAY ==
[2019-10-10 15:32] VITALS: BP 129/67; PULSE 89; RESP 18; O2SAT 98; BMI 48.9
--- NOTE | 2019-10-11 08:29 | HMH.PAINSOAP ---
[facility] Pain Management SOAP Note Subjective:: Patient is a pleasant 64-year-old white female who presents today for follow-up after medial branch block. Patient states that she had no relief from her injection she rates her pain a 7 out of 10. Patient does not want to move forward with any more injections. Patient did ask me about gabapentin I do believe that adding this to her regimen may be beneficial I will recommend it. ROS General: no recent weight change, no fever, no sleep disturbances Respiratory: no cough, no shortness of air, no recurring pulmonary infections Cardiovascular/Peripheral Vascular: No chest pain, No palpitations, no edema, no shortness of breath. Gastrointestinal: no new onset incontinence, normal bowel movements reported Genitourinary: no new onset incontinence Musculoskeletal: Back pain, leg pain Psychiatric: normal mood/ affect Neurological: [denies new onset weakness in extremities], [denies new onset balance issues] Objective:: Physical Exam General: Alert and oriented x3, no acute distress, pleasant and cooperative, Lungs: Resps E/U, Symmetrical chest expansion, Eyes: PERRL Musculoskeletal: Flexion and extension of lumbar spine somewhat guarded secondary to pain, deep tendon reflexes normal, strength in upper and lower extremities [5/5], [abnormal gait noted] Neurological: speech clear, conceptor equal, no gross sensory deficits Assessment:: Degenerative generative disc disease lumbar spine with lumbar radiculopathy Plan:: I will follow-up with the patient on as-needed basis. It is recommended to potentially start gabapentin therapy. I be happy to see the patient back in the future. I do also think patient would benefit from occupational therapy. Dr. Centeno has reviewed this note and agrees with this plan of care. This note was dictated using voice recognition software and may contain errors or omissions [facility] History I have reviewed the patient's past medical history: Yes Medical History: Reports:: Diabetes Mellitus Type 2, Hyperlipidemia, Hypertension, Internal Pacemaker, Myocardial Infarction, Seizures Denies:: Cancer, Diabetes Mellitus Type 1, MRSA *Have you ever received a pneumonia vaccine?: Yes *Have you received a flu vaccine this season?: Yes Other Medical History: Reports: Hypothyroidism Laterality Cases: Right: Lumpectomy Other Surgeries: Yes: Cholecystectomy, Hernia Repair, Hysterectomy-Total, Pacemaker, Other ( nerve rotation , gum) Amputation: No Fractures: No - *Social History Smoking Status: Former smoker Tobacco Type: cigarettes # Packs/Day (cigarettes): 2 Alcohol Intake: never *Occupational Status:: other Housing: halfway Household Members: other *Travel in the last 8 weeks: None Family Hx:: Unable to obtain, No significant family history
== END ==
PROVIDERS: PCP Internal Medicine Adolescent Medicine; Visit Provider Clinical Nurse Specialist Family Health
DX: M51.16 Intervertebral disc disorders with radiculopathy, lumbar region (principal)
CPT/HCPCS: 99212

== ENCOUNTER → 2019-10-12 13:08 | Outpatient (CLI) | payer MEDICARE, MEDICAID, SELFPAY ==
--- NOTE | 2019-10-12 13:12 | CT_ITS ---
PROCEDURE: CT CHEST WO CON CLINICAL INDICATION: ABN LOW DOSE LUNG SCREENING,RT LOBE NODULE Tobacco use, COPD, abnormal low dose lung scan, follow-up pulmonary nodule COMPARISON: [facility] from 04/05/2019 TECHNIQUE: Axial images obtained with sagittal and coronal reformats. All CT scans at the facility use one or more dose reduction, viz: automated exposure control, ma/kV adjustment per patient size (including targeted exams where dose is matched to indication, i.e. head), or iterative reconstruction technique. FINDINGS: There are significant coronary artery calcifications. Normal heart size. Cardiac pacemaker device is present with artifact. There is a small precarinal lymph node at 10 mm slightly larger compared to the previous exam. The right hilum is also somewhat prominent and may be due to some small overlying nodes adjacent to the vessels difficult to evaluate without contrast. There are scattered patchy areas of ground-glass density in the right upper lobe, right perihilar region, right middle lobe, right lower lobe, lingula, and left lower lobe consistent with bilateral pneumonitis. This is more prominent on the right compared to the left. Right middle lobe nodules unchanged. Faint nodular opacity is present in the right lung base medially but could be related to underlying inflammation at 6 mm. Continued follow-up is recommended. Nodular density also present in the left lung base at 7 mm not readily apparent previously. IMPRESSION: 1. Interval development patchy ground-glass infiltrates in both lungs consistent with pneumonia the. 2. No change right middle lobe nodule. 3. There are 2 new nodular opacities 1 in the right lower lobe and 1 in the left lung base possibly related to the acute pathological process of pneumonitis. Recommend 3 month follow-up without and with contrast. 4. Mild right hilar and mediastinal adenopathy. Possibly reactive change to the pneumonia. Follow-up recommended Dictated by: Abdirizak Neumann MD 10/14/2019 09:59 Electronically signed by Abdirizak Neumann MD in [place] 10/14/2019 09:59
== END ==
PROVIDERS: PCP Internal Medicine Adolescent Medicine; Visit Provider Internal Medicine Adolescent Medicine
DX: R91.1 Solitary pulmonary nodule (principal)
CPT/HCPCS: 71250

== ENCOUNTER → 2019-12-14 09:59 | Outpatient (CLI) | payer MEDICARE, MEDICAID, SELFPAY ==
[2019-12-14 10:35] LABS: Basophils % 0.4 % (0.1-2.0); Eosinophils # 0.2 K/mm3 (0.0-0.4); Eosinophils % 3.6 % (0.1-12.0); Hematocrit 40.8 % (37.0-47.0); Hemoglobin 13.5 g/dL (12.2-16.2); Lymphocytes # 2.6 K/mm3 (0.7-4.5); Lymphocytes % 48.5 % (10-50); Mean Corpuscular HGB Conc 33.1 g/dL (31.8-35.4); Mean Corpuscular Hemoglobin 31.2 pg (27.0-31.2); Mean Corpuscular Volume 94.3 fl (81-99); Mean Platelet Volume 8.1 fl (7.4-10.4); Monocytes # 0.4 K/mm3 (0.1-1.0); Monocytes % 7.9 % (1.7-9.3); Neutrophils # 2.1 K/mm3 (1.8-7.8); Neutrophils % 39.6 % (37.0-80.0); Platelet Count 199 K/mm3 (142-424); Red Blood Count 4.33 M/mm3 (4.20-5.40); Red Cell Distribution Width 14.2 % (11.5-17.5); White Blood Count 5.4 K/mm3 (4.8-10.8)
--- NOTE | 2019-12-14 10:42 | ECG_ITS ---
APPROVED REPORT Exam: Resting ECG HR:79 bpm ECG Measurements Heart Rate 79 AXES MA 158 P 54 QRSd 74 QRS 23 QT 386 T -14 QTc 442 <Conclusion> Normal sinus rhythm Normal ECG Electronically signed by : Lane Pozo, 12/18/2019 07:53:06
[2019-12-14 11:02] LABS: Anion Gap 13.8 mEq/L (5-15); Blood Urea Nitrogen 14 mg/dL (7-18); Calcium 9.5 mg/dL (8.5-10.1); Carbon Dioxide 34 mmol/L (21.0-32.0); Chloride 98 mmol/L (98-107); Creatinine,Serum 1.09 mg/dL (0.55-1.02); Estimated Glomerular Filt Rate 50 ml/min (>60); GFR (African American) 61 ML/MIN (>60); Glucose 139 mg/dL (74-106); Sodium 142 mmol/L (137-145)
[2019-12-14 11:05] LABS: Potassium 3.8 mmoL/L (3.5-5.1)
== END ==
PROVIDERS: Visit Provider Surgery
DX: K81.1 Chronic cholecystitis (principal); R22.31 Localized swelling, mass and lump, right upper limb
CPT/HCPCS: 36415; 80048; 85025; 93005

== ENCOUNTER → 2020-04-10 12:48 | Outpatient (CLI) | payer MEDICARE, MEDICAID, SELFPAY ==
--- NOTE | 2020-04-10 12:56 | CT_ITS ---
PROCEDURE: CT CHEST WO CON CLINICAL INDICATION: LUNG NODULE COMPARISON: CT CHEST WO CON from 10/12/2019 TECHNIQUE: Axial images obtained with sagittal and coronal reformats. All CT scans at the facility use one or more dose reduction, viz: automated exposure control, ma/kV adjustment per patient size (including targeted exams where dose is matched to indication, i.e. head), or iterative reconstruction technique. FINDINGS: HEART AND MEDIASTINAL STRUCTURES: Cardiac size is normal. There is prominent coronary artery calcification. The left-sided cardiac pacemaker is again noted causing streak artifact. The small precarinal node seen on the previous study is stable and unchanged. There is prominent arteriosclerotic calcification of the aortic arch. LUNGS AND PLEURAL SPACES: Coarse patchy ill-defined pneumonic infiltrate is seen in the right perihilar region and right upper lobe. There is a small focal subpleural numb opacity anterior segment left upper lobe which was not seen previously and likely is a small focal pneumonic infiltrate. There is an ill-defined pneumonic infiltrate in superior segment left lower lobe which was not seen previously. There is a focal opacity with air bronchograms proximal aspect posterior basal segment right lower lobe which was not seen previously. The right middle lobe nodule stable the small nodule medial aspect of the right lower lobe seen on the previous study is not definitely seen on this study. There is no pleural fluid. BONY STRUCTURES: No acute bony abnormalities apparent. UPPER ABDOMEN: Unremarkable. ADDITIONAL FINDINGS: No other significant abnormalities. IMPRESSION: New findings of patchy bilateral pneumonic infiltrates and in this clinical environment certainly covid- 19 is a consideration. Dictated by: Dr. Severo Santiago MD 04/10/2020 13:[address] Severo Santiago MD in [facility] 04/10/2020 13:31
--- NOTE | 2020-04-10 12:57 | MM_ITS ---
PROCEDURE: MM DIG MAMM BI DX W/CAD Digital Breast Tomosynthesis Included CLINICAL INDICATION: ABN MAMM There is no personal or family history of breast cancer. There has been a previous biopsy right breast for benign disease. This is a screening mammogram left breast and six-month follow-up mammogram right breast. COMPARISON: [facility] MM Dig screening mamm BI w/CAD from 03/17/2018 [facility] MM Dig screening mamm BI w/CAD from 12/22/2018 [facility] MM Dig mamm DX unilat RT CAD from 02/10/2019 MM DIG MAMM DX UNILAT RT CAD from 07/27/2019 TECHNIQUE: Standard CC and MLO images and 3D Tomosynthesis was obtained. R2 CAD reviewed. FINDINGS: The breasts are composed primarily of fat. The questionable tiny lesion right breast seen on the previous study is not definitely seen and confirmed with tracey images. A cardiac pacemaker device overlies the axillary tail of the left breast. There are few scattered benign-appearing microcalcifications in each breast there is no suspicious lesion in either breast and no suspicious microcalcifications. IMPRESSION: Fatty type breast parenchyma with no suspicious lesions seen BI-RAD Category: 2 Benign Finding(s) FOLLOW-UP: 1YR 1 Year Follow-up (A letter has been sent to the patient regarding results of the study.) Dictated by: Dr. Severo Santiago MD 04/10/2020 14:[address] Severo Santiago MD in [facility] 04/10/2020 14:43
== END ==
PROVIDERS: PCP Internal Medicine Adolescent Medicine; Visit Provider Internal Medicine Adolescent Medicine
DX: R91.1 Solitary pulmonary nodule (principal)
CPT/HCPCS: 71250; 77062; 77066; G0279

== ENCOUNTER → 2020-08-07 10:24 | Outpatient (CLI) | payer MEDICARE, MEDICAID, SELFPAY ==
--- NOTE | 2020-08-07 10:29 | CT_ITS ---
PROCEDURE: CT ABDOMEN PELVIS W CON CLINICAL INDICATION: N/V,DIARRHEA COMPARISON: CT CT CHEST WO CON from 04/10/2020 TECHNIQUE: IV Contrast: 75ML OPTIRAY 350 Oral Contrast None Axial images obtained with sagittal and coronal reformats. All CT scans at the facility use one or more dose reduction, viz: automated exposure control, ma/kV adjustment per patient size (including targeted exams where dose is matched to indication, i.e. head), or iterative reconstruction technique. FINDINGS: LOWER THORAX: There is some patchy density noted in the lung bases and lingula. There is a 4 mm noncalcified nodule in the right middle lobe unchanged. Artifact is present from cardiac pacemaker device. Coronary artery calcifications are present as well. ABDOMEN & PELVIS: There has been a prior cholecystectomy. The liver, spleen, adrenal glands, and pancreas have an unremarkable appearance. No renal or ureteral calculi are evident. The appendix is not clearly delineated. There is no convincing evidence of appendicitis. There is a mild amount of retained colonic feces within the colon. There has been a prior hysterectomy. 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 There is a small ventral abdominal wall hernia containing fat. This is central and 12 cm superior to the umbilicus. There is a small umbilical hernia containing fat. No acute bony findings. IMPRESSION: 1. Moderate amount of retained colonic feces. 2. Small ventral abdominal wall hernia and small umbilical hernia both containing fat. 3. Mild bibasilar airspace disease Dictated by: Abdirizak Neumann MD 08/08/2020 11:40 Abdirizak Neumann MD in [facility] 08/08/2020 11:40
== END ==
PROVIDERS: PCP Internal Medicine Adolescent Medicine; Visit Provider Internal Medicine Adolescent Medicine
DX: R11.2 Nausea with vomiting, unspecified (principal); R19.7 Diarrhea, unspecified
CPT/HCPCS: 74177; Q9967

== ENCOUNTER → 2020-08-17 05:00 | Outpatient (CLI) | payer MEDICARE, MEDICAID, SELFPAY ==
[2020-08-18 12:39] LABS: Microscopic, Urine URINE MICROSCOPIC (MICROSCOPIC)
[2020-08-18 13:41] LABS: Appearance,Urine CLEAR (Clear); Bilirubin,Urine Negative (Negative); Blood, Urine Negative (Negative); Color,Urine YELLOW (Yellow); Glucose,Urine (UA) Negative (Negative); Ketones,Urine Negative (Negative); Leukocyte Esterase,Urine 1+ (Negative); Nitrate,Urine Negative (Negative); Protein,Urine Negative (Negative); Specific Gravity, Urine 1.015 (1.005-1.030)
[2020-08-18 13:58] LABS: Calcium Oxalate Crystals,Urine 2+ /lpf
== END ==
PROVIDERS: Visit Provider Nurse Practitioner Family
DX: N39.0 Urinary tract infection, site not specified (principal)
CPT/HCPCS: 81001; 87086; 87088; 87186

== ENCOUNTER 2020-08-25 12:18 | Emergency (ER) | payer MEDICARE, MEDICAID, SELFPAY ==
[2020-08-25 12:18] VITALS: BP 158/82; PULSE 83; RESP 20; TEMP 36.5; O2SAT 95; BMI 38.9
--- NOTE | 2020-08-25 12:22 | CT_ITS ---
PROCEDURE: CT CERVICAL SPINE WO CON CLINICAL INDICATION: fall Neck injury with pain, contusion/abrasion or hematoma, cervical sprain/strain the COMPARISON: No exams were available for comparison TECHNIQUE: Axial images obtained with sagittal and coronal reformats. All CT scans at the facility use one or more dose reduction, viz: automated exposure control, ma/kV adjustment per patient size (including targeted exams where dose is matched to indication, i.e. head), or iterative reconstruction technique. Axial spiral CT scanning performed of the cervical spine beginning at the base of the skull and continuing to the upper T-spine. 3-D multiplanar reconstruction with 3-D manipulation of volumetric data set in image rendering was completed by the radiologist and/or technologist with the supervision of the radiologist on independent workstation. FINDINGS: Normal alignment. No fracture or dislocation. There is degenerative disc disease at C5-C6. No lytic or blastic change. Lung apices are clear. Air hemorrhage levels present in the right maxillary sinus IMPRESSION: 1. No acute fracture. 2. Degenerative changes. 3. Air hemorrhage level right maxillary sinus Dictated by: Abdirizak Neumann MD 08/25/2020 15:03 Abdirizak Neumann MD in [facility] 08/25/2020 15:03
--- NOTE | 2020-08-25 12:22 | XR_ITS ---
PROCEDURE: XR CHEST AP CLINICAL HISTORY: fall Pain COMPARISON: CR CXR1 CHEST-PORTABLE from 12/23/2013 CR CXR2V XR chest 2V from 04/24/[address] CHEST WO CON from 04/10/2020 FINDINGS: Bipolar pacemaker is present from left subclavian approach. Normal heart size. Coronary artery calcification and/or stents noted on the left The lungs are clear without infiltrates, suspicious nodules, or pleural effusions. No acute bony abnormalities. IMPRESSION: No acute findings. Dictated by: Abdirizak Neumann MD 08/25/2020 14:42 Abdirizak Neumann MD in [facility] 08/25/2020 14:42
--- NOTE | 2020-08-25 12:22 | CT_ITS ---
PROCEDURE: CT HEAD/BRAIN WO CON CLINICAL INDICATION: fall Posttraumatic pain, Head injury with headache/pain, contusion, abrasion or hematoma with loss of consciousness bruising and swelling COMPARISON: CT CT HEAD/BRAIN WO CON from 09/13/2019 TECHNIQUE: Axial images obtained. All CT scans at the facility use one or more dose reduction, viz: automated exposure control, ma/kV adjustment per patient size (including targeted exams where dose is matched to indication, i.e. head), or iterative reconstruction technique. FINDINGS: No midline shift, mass effect, intracranial hemorrhage, hydrocephalus, or extra-axial fluid collection is evident. There is generalized atrophy with hypoattenuation of the periventricular white matter consistent with microangiopathic changes.. Soft tissue swelling is present in the right frontal region of the scalp. There is an air-fluid level in the right maxillary sinus. Right orbital floor fracture is present better distinguished on the maxillofacial CT. The calvarium has an unremarkable appearance. No mastoid effusion. Air-fluid level right maxillary sinus IMPRESSION: 1. No acute intracranial findings. 2. Right frontal scalp hematoma 3. Right orbital floor fracture with air hemorrhage level in the right maxillary sinus Dictated by: Abdirizak Neumann MD 08/25/2020 15:00 Abdirizak Neumann MD in [facility] 08/25/2020 15:00
--- NOTE | 2020-08-25 12:22 | XR_ITS ---
PROCEDURE: XR PELVIS 1-2V CLINICAL INDICATION: fall Pain COMPARISON: No exams were available for comparison TECHNIQUE: XR Pelvis AP View FINDINGS: No fracture or dislocation is evident. No significant degenerative change. No lytic or blastic change. IMPRESSION: No acute findings. Dictated by: Abdirizak Neumann MD 08/25/2020 14:41 Abdirizak Neumann MD in [facility] 08/25/2020 14:41
--- NOTE | 2020-08-25 12:23 | CT_ITS ---
PROCEDURE: CT LUMBAR SPINE WO CON CLINICAL HISTORY: fall Fall with injury and pain, low back pain COMPARISON: CT LSWO CT LUMBAR SPINE W/O CONTRAST from 05/22/2015 TECHNIQUE: Axial images obtained with sagittal and coronal reformats. All CT scans at the facility use one or more dose reduction, viz: automated exposure control, ma/kV adjustment per patient size (including targeted exams where dose is matched to indication, i.e. head), or iterative reconstruction technique. FINDINGS: Normal alignment. No fracture or dislocation. There mild facet hypertrophic change at L4-5 and L5-S1. Minimal bulging disc at L5-S1 and L3-L4. Incidental findings include mild distention of the urinary bladder, prior cholecystectomy with mild biliary ectasia, colonic diverticulosis IMPRESSION: 1. No acute fracture. 2. Other nonacute findings as described above Dictated by: Abdirizak Neumann MD 08/25/2020 15:06 Abdirizak Neumann MD in [facility] 08/25/2020 15:06
--- NOTE | 2020-08-25 12:24 | CT_ITS ---
PROCEDURE: CT FACIAL BONES WO CON CLINICAL HISTORY: trauma Right periorbital pain bruising and swelling, recent injury COMPARISON: No exams were available for comparison TECHNIQUE: Axial images obtained with sagittal and coronal reformats. All CT scans at the facility use one or more dose reduction, viz: automated exposure control, ma/kV adjustment per patient size (including targeted exams where dose is matched to indication, i.e. head), or iterative reconstruction technique. FINDINGS: There is a minimally displaced right orbital floor fracture. The inferior rectus muscle does not appear entrapped. Correlation with ophthalmologic exam is needed however. The fracture is along the inferior aspect of the inferior rectus muscle. There is mild mucosal thickening involving the roof of the right maxillary sinus with some lobular thickening along the anterior and superior aspect of the right maxillary sinus. The nondisplaced fracture is present involving the right lateral orbital wall. The zygomatic arch appears intact. There is some irregularity of the medial wall the right orbit. Minimal impaction injury is not excluded. The roof of the right orbit has an unremarkable appearance. There is small air-fluid level in the right maxillary sinus. There is an old fracture versus of the right styloid process at its base versus an ununited ossification center. Mild osteoarthritic changes are present involving the TMJs left more so than right. Prominent soft tissue swelling is present in the right periorbital region both supraorbital lateral orbital and infraorbital area. The right globe appears intact. There is bilateral exophthalmos. The right-side appears slightly greater than the left but could be related to the imaging plane. There is mild rightward nasal septal deviation. IMPRESSION: 1. Minimally displaced fracture involves the floor the right orbit 2. Nondisplaced lateral orbital wall fracture on the right. 3. Possible minimal depression of the medial wall of the right orbit. 4. Periorbital hematoma with an air hemorrhage level in the right maxillary sinus 5. Exophthalmos on both sides right slightly greater than left Dictated by: Abdirizak Neumann MD 08/25/2020 15:11 Abdirizak Neumann MD in [place] 08/25/2020 15:11
--- NOTE | 2020-08-25 12:25 | [facility].EDFALL ---
ED Disposition Clinical Impression: Closed fracture of right orbital floor Qualifiers: Encounter type: initial encounter Qualified Code(s): S02.31XA - Fracture of orbital floor, right side, initial encounter for closed fracture Concussion with loss of consciousness Qualifiers: Encounter type: initial encounter Qualified Code(s): S06.0X9A - Concussion with loss of consciousness of unspecified duration, initial encounter Disposition: Xfer SNF Condition on Discharge: Good Instructions: DI for Orbital Fracture Referrals: PCP,No [Primary Care Provider] - [facility] [Other] - Critical Care Critical Care Time: No Attestation: On , the high probability of a clinically significant, sudden or life threatening deterioration of the following system(s) required my full and direct attention, intervention and personal management. The time I documented below is in addition to time spent performing reported procedures but includes the following listed in this critical care notation. Medical Decision Making - Medical Records Medical records reviewed: Yes: I reviewed the patient's medical records. - Marc Inquiry Pt receiving controlled substance: No Vital Signs: 08/25/20 12:18 Temperature 97.7 F Temperature Source Oral Pulse Rate [Right Radial] 83 Respiratory Rate 20 Blood Pressure [Right Arm] 158/82 H Blood Pressure Mean [Right Arm] 107 02 Sat by Pulse Oximetry 95 Oxygen Delivery Method Nasal Cannula Oxygen Flow Rate (LPM) 1 Orders (Tests/Meds): ED MEDICATIONS Discontinued Medications Generic Name Dose Route Start Last Admin Trade Name Freq PRN Reason Stop Dose Admin Morphine Sulfate 4 mg 08/25/20 14:16 Morphine 4mg/Ml Syringe IV 08/25/20 14:17 ONCE ONE Ondansetron HCl 4 mg 08/25/20 14:16 Ondansetron 4mg/2ml Vial IV 08/25/20 14:17 ONCE ONE ORDERS Category Date Time Status CT cervical spine wo con Stat Cat Scan 08/25/20 12:[address] facial bones wo con Stat Cat Scan 08/25/20 12:[address] head/brain wo con Stat Cat Scan 08/25/20 12:[address] lumbar spine wo con Stat Cat Scan 08/25/20 12:23 Ordered XR chest AP Stat Exams 08/25/20 12:22 Ordered XR pelvis 1-2V Stat Exams 08/25/20 12:22 Ordered - Radiology Data #1 Image(s): Chest, Pelvis Image Reviewed: Yes I reviewed the patient's radiology results, Yes I reviewed the patient's radiology image Preliminary Findings: Normal/NAD, No Fracture Seen - CT Data CT Scan: Head, C-Spine, L-Spine, Other (Facial) Time Received: 14:[address] Reviewed: Yes: I have reviewed the patient's CT results, I have viewed the radiologist's interpretation Findings Narrative: CT of the head without contrast showed no acute intracranial hemorrhage. Some soft tissue swelling of the right frontal region. Right orbital floor fracture. CT of the cervical spine did not show any acute fracture. No subluxation. Intervertebral disc narrowing at C5-C6. CT lumbar spine showed mild degeneration with no acute fracture. CT of the maxillofacial did show some extra calvarial soft tissue swelling over the right orbit. There is air hemorrhage level in the right maxillary sinus. Minimally displaced right orbital floor fracture. - Reevaluation(s) Time: 14:15 Reevaluation #1: On reevaluation, the patient is feeling much better. She does have evidence of a right orbital floor fracture. Her examination does not show any loss of extraocular movements. Does have some bleeding in the right maxillary sinus which is consistent with orbital floor fracture. Her nasal septum is intact. She is not having any epistaxis at this time. Patient will be arranged to follow-up with oral maxillofacial surgeon. The daughter was given strict return precautions. Verbalized understanding. Medical Decision Narrative: 65-year-old female presented to the emergency department after A fall. Patient does have some ecchymosis
[2020-08-25 14:27] VITALS: BP 111/57; PULSE 76; RESP 17; TEMP 36.8; O2SAT 95
--- NOTE | 2020-08-25 14:38 | XR_ITS ---
PROCEDURE: XR HAND LT MIN 3V CLINICAL INDICATION: fall, injury Pain COMPARISON: No exams were available for comparison FINDINGS: There is a longitudinal lucency involving the ulnar and proximal aspect of the middle phalanx of the 2nd digit. This is of questionable clinical significance as the patient's pain is reported to be at the 3rd digit. The 3rd digit has an unremarkable appearance. No other significant anomalies. IMPRESSION: As above, possible nondisplaced fracture involves the proximal and ulnar aspect of the middle phalanx of the 2nd digit otherwise negative Dictated by: Abdirizak Neumann MD 08/25/2020 15:14 Abdirizak Neumann MD in [place] 08/25/2020 15:14
== END 2020-08-25 15:21 ==
PROVIDERS: Emergency Provider Emergency Medicine
DX: S02.31XA Fracture of orbital floor, right side, initial encounter for closed fracture (principal); S06.0X9A Concussion with loss of consciousness of unspecified duration, initial encounter; W01.0XXA Fall on same level from slipping, tripping and stumbling without subsequent striking against object, initial encounter; Y92.129 Unspecified place in nursing home as the place of occurrence of the external cause; I25.2 Old myocardial infarction; I10 Essential (primary) hypertension; E11.9 Type 2 diabetes mellitus without complications; E78.5 Hyperlipidemia, unspecified; Z88.2 Allergy status to sulfonamides; Z79.899 Other long term (current) drug therapy
CPT/HCPCS: 70450; 70486; 71045; 72125; 72131; 72170; 73130; 96374; 96375; 99283; J2405

== ENCOUNTER → 2021-02-12 09:07 | Outpatient (CLI) | payer MEDICARE, MEDICAID, SELFPAY ==
[2021-02-13 14:35] LABS: Hep A Ab, IgM Negative (Negative); Hepatitis B Core Antibody IgM Negative (Negative); Hepatitis B Surface Antigen Negative (Negative)
[2021-02-13 22:26] LABS: HIV Screen 4th Generation wRfx Non Reactive (Non Reactive); Hepatitis C Antibody <0.1 s/co ratio (0.0-0.9)
== END ==
PROVIDERS: Visit Provider Nurse Practitioner Family
DX: R63.4 Abnormal weight loss (principal); L81.8 Other specified disorders of pigmentation; Z11.4 Encounter for screening for human immunodeficiency virus [HIV]
CPT/HCPCS: 36415; 80074; 86703; G0432

== ENCOUNTER → 2021-02-15 11:50 | Outpatient (CLI) | payer MEDICARE, MEDICAID, SELFPAY ==
[2021-02-15 15:26] LABS: Coronavirus 19 IgG Antibody Positive (Negative); Coronavirus 19 IgM Antibody Negative (Negative)
== END ==
PROVIDERS: Visit Provider Internal Medicine Gastroenterology
DX: Z01.812 Encounter for preprocedural laboratory examination (principal); Z20.822 Contact with and (suspected) exposure to COVID-19; Z13.810 Encounter for screening for upper gastrointestinal disorder; Z12.2 Encounter for screening for malignant neoplasm of respiratory organs; R13.10 Dysphagia, unspecified; R11.2 Nausea with vomiting, unspecified; R63.4 Abnormal weight loss
CPT/HCPCS: 36415; 86328

== ENCOUNTER 2021-02-18 10:57 | Day surgery (SDC) | payer MEDICARE, MEDICAID, SELFPAY ==
[2021-02-13 14:14] VITALS: BMI 36.8
[2021-02-18 11:36] VITALS: BP 130/77; PULSE 60; RESP 20; TEMP 36.1; O2SAT 97
[2021-02-18 11:55] LABS: POC Glucose,Bedside 99 (70-110)
--- NOTE | 2021-02-18 13:03 | P.PN_ITS ---
[facility] Anesthesia Checklist - Patient Identification Patient Identification: Arm Band - Structural Data Admitted From: Home Planned Operative Procedure/s: EGD, Colonoscopy Consent for Planned Operative Procedure(s) Verified: Yes - NPO Status Verified Time NPO: 00:00 - Additional verifications Anesthesia Reactions: No Hx Blood Transfusions: No Blood Transfusion Reaction: No - Airway Assessment Dentition: Edentulous - Neurological Assessment Level of Consciousness: Awake - Anesthesia Plan Anesthesia Risk discussed: Yes Anesthesia Plan: Verified ASA Class: III Anesthesia Type: MAC [facility] History I have reviewed the patient's past medical history: Yes Medical History: Reports:: Diabetes Mellitus Type 2, Hyperlipidemia, Hypertension, Internal Pacemaker, Myocardial Infarction Denies:: Cancer, Diabetes Mellitus Type 1, MRSA, Seizures *Have you ever received a pneumonia vaccine?: Yes *Have you received a flu vaccine this season?: Yes Other Medical History: Reports: Hypothyroidism. Denies: Blood Transfusion Reaction Anesthesia experience/problems:: None Laterality Cases: Right: Lumpectomy Other Surgeries: Yes: Cholecystectomy, Hernia Repair, Hysterectomy-Total, Pacemaker, Other Amputation: No Fractures: No - *Social History Smoking Status: Former smoker Tobacco Type: cigarettes # Packs/Day (cigarettes): 2 Alcohol Intake: never Substance Use Type: other *Occupational Status:: disabled Housing: long-term Household Members: other *Travel in the last 8 weeks: None Family Hx:: Unable to obtain
--- NOTE | 2021-02-18 13:18 | P.PCN_ITS ---
[facility] Procedure Note Procedure Note:: Upper Endoscopy Procedure Report: Esophagogastroduodenoscopy with cold biopsies and TTS balloon dilation Endoscopost: Teo Robin II, MD Referring Physician: Lane Pozo M.D. Date of Procedure: February 18, 2021 Equipment: Olympus GIF 190 standard upper endoscope Sedation: MAC sedation Indications: Mrs. Perkins is a 65-year-old female with COPD, CASHD and cardiomyopathy with a defibrillator. The patient has had ongoing nausea, vomiting, dyspepsia, weight loss and dysphagia. She has required prior endoscopy with TTS balloon dilation. She does state that she has lost over 100 pounds in the last couple of years. She does take omeprazole and Zofran when necessary. Her CAT scan showed some narrowing of the ostium of the celiac artery at about 60% but there was no evidence of mesenteric three-vessel disease (i.e. no mesenteric angina/ischemia). The patient does report moderate chronic constipation. Procedure: Prior to the procedure, a history and physical exam was performed, and patient's medications and allergies were reviewed. The risks, benefits and alternatives of the sedation and procedure were discussed with the patient. All questions were answered and informed consent was obtained. The patient was brought to the procedure room. Patient identification and proposed procedure were verified by the physician and the nurse. The patient was placed in a left lateral decubitus position and the scope was passed under direct vision. Throughout the procedure, the patient's blood pressure, pulse, and oxygen saturations were monitored continuously. The upper GI endoscopy was accomplished without difficulty. The patient tolerated the procedure well. Findings: The scope was passed directly into the upper esophagus and advanced to the third portion of the duodenum. The post bulbar duodenum and duodenal bulb were normal with normal mucosa and conniventes. The scope was withdrawn through a normal duodenal bulb and pylorus into the stomach. There was moderate bile reflux with linear reactive gastropathy of the antrum and body of the stomach. The remainder of the fundus of the stomach was grossly normal. Upon retroflexion there was a very small sliding 1 to 2 cm hiatal hernia. 2 biopsies were taken in the antrum and along the lesser curvature for histology to rule out gastritis and/or H pylori. The scope was then withdrawn into the esophagus. There was a serrated Z-line but no evidence of reflux esophagitis, Moser's or Schatzki's ring. There were tertiary contractions and evidence of moderate esophageal dysmotility. The entire esophagus was dilated to 60 [place]/20 mm with a TTS hydrostatic balloon. There was minor resistance at the cricopharyngeus. The remainder of the esophageal mucosa was normal. Impression: 1. Nonerosive GERD with moderate esophageal dysmotility and very small sliding 1 to 2 cm hiatal hernia 2. Bile reflux with moderate linear reactive gastropathy Plan: I will follow-up the biopsies. 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 We will discuss additional treatment options which may include promotility therapy and treatment of her obstipation. I will proceed with diagnostic colonoscopy.
--- NOTE | 2021-02-18 13:40 | P.PCN_ITS ---
[facility] Procedure Note Procedure Note:: Colonoscopy Procedure Report: Colonoscopy with cold snare polypectomy Endoscopist: Teo Robin II, MD Referring physician: Lane Pozo M.D. Date of Procedure: February 18, 2021 Equipment: Olympus 190 variable stiffness pediatric colonoscope Sedation: MAC sedation Indication: Mrs. Perkins is a 65-year-old female with abdominal pain/discomfort, dyspepsia and chronic constipation. Her CAT scan in August 2020 showed a marked amount of retained stool. She also had some narrowing (60%) of the ostium of the celiac artery but no evidence of any other mesenteric vessel disease. She has lost 100 pounds over the last couple of years. She reports no rectal bleeding or family history of colon cancer. It has been more than 10 years since her last colonoscopy. She has had a prior hysterectomy. Procedure: Prior to the procedure, a history and physical exam was performed, and patient's medications and allergies were reviewed. The risks, benefits and alternatives of the sedation and procedure were discussed with the patient. All questions were answered and informed consent was obtained. The patient was brought to the procedure room. Patient identification and proposed procedure were verified by the physician and the nurse. The patient was placed in a left lateral decubitus position and the scope was passed under direct vision. Throughout the procedure, the patient's blood pressure, pulse, and oxygen saturations were monitored continuously. The colonoscopy was accomplished without difficulty. The patient tolerated the procedure well. Findings: On digital rectal examination there was normal rectal tone. There were no external hemorrhoids. The colonoscope was introduced through the anal canal to the rectum and advanced to the cecum. The ileocecal valve and appendiceal orifice were identified. The scope was advanced a short distance into the ileum which appeared grossly normal. The scope was then withdrawn into the colon. There was marked submucosal hemorrhages of the right colon because of pericolonic adhesions pulling creating these with colonoscopy. There were 8 colon polyps (ascending x2 (5 and 7 mm), transverse x2 (6 and 7 mm), descending x3 (5, 6 and 9 mm) and sigmoid x1 (5 mm)) which were all removed via cold snare polypectomy. There were scattered extensive diverticuli throughout the descending and sigmoid colon (LEFT colon). There was also evidence of moderate pericolonic adhesions around the sigmoid colon. The rectum itself was normal. Upon retroflexion within the rectum there were grade 1 internal hemorrhoids. The preparation was good throughout with [place] Preparation Score of 8 out of 9. The cecal time was 16 minutes. Impression: 1. Colonic polyps x8 2. Left-sided diverticulosis with sigmoid pericolonic adhesions (likely secondary to prior hysterectomy) 3. Grade 1 internal hemorrhoids Plan: I will follow up the polyp pathology and recommend repeat colonoscopy again in 2-3 years based upon the size and number of adenomatous polyps and the polyp histology. I would encourage dietary measures and fiber bowel regimen (combined MiraLAX plus Konsyl twice daily) on a long-term daily maintenance basis.
[2021-02-18 13:42] VITALS: BP 85/39; PULSE 51; RESP 18; TEMP 36.2; O2SAT 97
--- NOTE | 2021-02-18 13:45 | HMH.ANESI ---
[facility] Anesthesia Record Part I Intake, IV Amount: 600 Estimated blood loss (mL): 0 Urine output (mL): 0 Blood Pressure: 85/39 SaO2: 92 Pulse Rate: 51 Respiratory Rate: 14 Temperature: 97.1 F Patient is:: Awake Stable to PACU at:: 13:42
[2021-02-18 13:46] VITALS: BP 85/39; PULSE 51; RESP 14; TEMP 36.2; O2SAT 92
[2021-02-18 13:52] VITALS: BP 129/61; PULSE 60; RESP 18; O2SAT 98
[2021-02-18 14:28] VITALS: BP 155/79; BP 173/85; PULSE 60; RESP 18; O2SAT 100; O2SAT 96
--- NOTE | 2021-02-18 14:35 | SUR.PHASEII ---
REPORT CALLED TO MARTA NAJERA [employer].
--- NOTE | 2021-02-18 14:48 | HMH.ANESII ---
[facility] Anesthesia Record Part II Discharge Time: 14:28 Destination: Surgical Day Care (OP Surgery) PACU nurse assessment reviewed?: Yes Patient Condition:: Good Anesthesia Complications:: None Swallowing reflex intact?: Yes Cyanosis?: No Blood Pressure: 173/85 Pulse Rate: 60 Temperature: 97.1 F Mental Status: Alert & Oriented Pain level:: 0 Nausea and/or vomitting:: None Intake, IV Amount: 600
[2021-02-18 14:49] VITALS: BP 173/85; PULSE 60; TEMP 36.2
== END 2021-02-18 14:36 | disposition home or self-care (01) ==
LOC: OUTP 11:01
PROVIDERS: PCP Internal Medicine Adolescent Medicine; Visit Provider Internal Medicine Gastroenterology
PROC: 0DJ08ZZ Inspection of Upper Intestinal Tract, Via Natural or Artificial Opening Endoscopic (ICD-10-PCS; CPT 43235; principal; 2021-02-18 12:00)
DX: K21.9 Gastro-esophageal reflux disease without esophagitis (principal); K22.4 Dyskinesia of esophagus; K44.9 Diaphragmatic hernia without obstruction or gangrene; K31.9 Disease of stomach and duodenum, unspecified; K63.5 Polyp of colon; K57.30 Diverticulosis of large intestine without perforation or abscess without bleeding; K66.0 Peritoneal adhesions (postprocedural) (postinfection); K64.0 First degree hemorrhoids; E11.9 Type 2 diabetes mellitus without complications; E78.5 Hyperlipidemia, unspecified; I10 Essential (primary) hypertension; J44.9 Chronic obstructive pulmonary disease, unspecified; I25.10 Atherosclerotic heart disease of native coronary artery without angina pectoris
CPT/HCPCS: 43239; 43249; 45385; 82962; C1726

== ENCOUNTER → 2021-02-24 14:58 | Outpatient (CLI) | payer MEDICARE, MEDICAID, SELFPAY ==
[2021-02-24 15:05] LABS: Microscopic, Urine URINE MICROSCOPIC (MICROSCOPIC)
[2021-02-24 15:14] LABS: Appearance,Urine TURBID (Clear); Bilirubin,Urine Negative (Negative); Blood, Urine TRACE-I (Negative); Color,Urine YELLOW (Yellow); Glucose,Urine (UA) Negative (Negative); Ketones,Urine TRACE (Negative); Leukocyte Esterase,Urine 1+ (Negative); Nitrate,Urine Negative (Negative); PH,Urine 8.5 (5.0-8.5); Protein,Urine 2+ (Negative); Specific Gravity, Urine 1.015 (1.005-1.030)
[2021-02-24 15:26] LABS: Amorphous Sediment,Urine 3+ /lpf; WBC,Urine Occasional #/hpf (0-3)
== END ==
LOC: LAB.DROPOF 02-25 06:27 → HMH.JM 02-25 07:00
PROVIDERS: Visit Provider Nurse Practitioner Family
DX: N39.0 Urinary tract infection, site not specified (principal); B96.4 Proteus (mirabilis) (morganii) as the cause of diseases classified elsewhere
CPT/HCPCS: 81001; 87086; 87088; 87186

== ENCOUNTER → 2021-06-03 12:14 | Outpatient (CLI) | payer MEDICARE, MEDICAID, SELFPAY ==
--- NOTE | 2021-06-03 | CA_ITS ---
APPROVED REPORT [facility]ship: SUNG Laterality: Bilateral Study Quality: Good Indications: syncope Risk Factors Smoking Doppler Spectral Velocity Analysis ECA (R) 93.60/8.60 cm/s ECA (L) 65.80/10.50 cm/s dICA (R) 207.50/55.10 cm/s dICA (L) 114.30/32.10 cm/s Naty (R) 68.00/16.00 cm/s Naty (L) 106.60/25.70 cm/s pICA (R) 62.60/15.00 cm/s pICA (L) 63.60/14.20 cm/s dCCA (R) 79.10/13.70 cm/s dCCA (L) 75.60/18.00 cm/s pCCA (R) 96.20/16.00 cm/s pCCA (L) 86.80/16.50 cm/s Vert (R) 31.00/7.50 cm/s Vert (L) 68.10/20.50 cm/s ICA/CCA 2.20 ICA/CCA 1.40 Findings Duplex evaluation demonstrates stenosis of the right distal internal carotid artery in the range of 50-69% with PSV =140 cm/sec, EDV =100 cm/sec, and IC/CC Ratio <4.0. Duplex evaluation demonstrates stenosis of the left proximal internal carotid artery in the range of 20-49% with PSV <140 cm/sec, EDV <100 cm/sec, and IC/CC Ratio <4.0. Duplex evaluation demonstrates antegrade flow of the bilateral Vertebral Arteries. Conclusion Duplex evaluation demonstrates stenosis of the right distal internal carotid artery in the range of 50-69% with PSV =140 cm/sec, EDV =100 cm/sec, and IC/CC Ratio <4.0. Duplex evaluation demonstrates stenosis of the left proximal internal carotid artery in the range of 20-49% with PSV <140 cm/sec, EDV <100 cm/sec, and IC/CC Ratio <4.0. Duplex evaluation demonstrates antegrade flow of the bilateral Vertebral Arteries. Electronically signed by : Abdirizak Neumann MD 06/03/2021 16:53:36
--- NOTE | 2021-06-03 | CA_ITS ---
APPROVED REPORT EXAM: Comprehensive 2D, Doppler, and color-flow Echocardiogram [employer]: Irena Dumont CRT Ht: 5 ft 0 in Wt: 223lbs BSA: 1.96 BP: 110/74 mmHg Indications: COPD, Shortness of Breath, Diabetes, CAD, Hyperlipidemia, Hypertension/HDD, stents, AICD, old mi, coded x 4,syncope 2D Dimensions LVOT 1.94 cm (M/F) 1.5-2.5 LA Volume 24.00 mL LA Volume Index 12.30 mL/m2 (M/F) 16-34 M-Mode Dimensions RVDd 2.75 cm (0.9-2.6) LA Diam 3.61 cm (1.9-4.0) LVDd 4.51 cm (3.5-5.7) Ao Diam 3.46 cm (2.0-3.7) LVDs 2.47 cm (3.5-5.7) IVSd 0.94 cm (0.6-1.1) PWd 0.81 cm (0.6-1.1) EF (Teich) 76.60% FS 45.20% EDV (Teich) 92.90 mL ESV (Teich) 21.70 mL LV Diastology E Decel Time 243.00 (160-240 msec) E/A Ratio 0.76 MED E' 7.30 (< 7 cm/sec) MED A' 11.40 cm/s E'/MED E' Ratio 8.79 (>14) LAT E' 9.60 (<10 cm/sec) LAT A' 9.40 cm/s E/LAT E' Ratio 6.69 (>14) Aortic Valve AO Peak GR. 6.70 mmHg Mitral Valve MV A Velocity 85.00 (40-130 cm/s) E/A Ratio 0.76 MV Decel. Time 243.00 (160-240 ms) Pulmonary Valve PV Peak Velocity 96.00 (50-150 cm/s) Tricuspid Valve TR P. Velocity 237.00 cm/s RAP Estimate 10.00 mmHg RVSP 32.40 mmHg Left Ventricle Left atrium is mildly enlarged, left ventricle is normal size, mild concentric left ventricular hypertrophy, visually estimated ejection fraction 55% with no regional wall motion abnormality, grade 1 diastolic dysfunction seen without tissue Doppler evidence of raise left atrial pressure. Right Ventricle Right atrium and right ventricle are mildly enlarged with normal contractility, there is an AICD lead seen in right ventricle. Aortic Valve Aortic valve is minimally thickened and fibrosed, there is no aortic stenosis or aortic insufficiency. Mitral Valve Mitral valve is grossly normal, there is trace mitral regurgitation. Tricuspid Valve Tricuspid valve grossly normal, there is trace tricuspid regurgitation, tricuspid regurgitation jet velocity is inadequate for calculation of the right ventricular systolic pressure. Pulmonic Valve Pulmonic valve is poorly visualized. Great Vessels Aortic root is normal size. Pericardium No significant pericardial effusion noted. Conclusion 1. Mild biatrial enlargement, normal left ventricular size, mild concentric left ventricular hypertrophy, visually estimated ejection fraction 55% with no regional wall motion abnormality, grade 1 diastolic dysfunction seen without tissue Doppler evidence of raise left atrial pressure. 2. Mildly enlarged right ventricle with normal contractility. 3. Trace mitral and tricuspid regurgitation. 4. No significant pericardial effusion noted. Electronically signed by : Bonilla Roberts, 06/03/2021 22:01:23
== END ==
PROVIDERS: PCP Internal Medicine Adolescent Medicine; Visit Provider Nurse Practitioner Family
DX: R55 Syncope and collapse (principal)
CPT/HCPCS: 93225; 93226; 93306; 93880

== ENCOUNTER → 2021-06-04 13:44 | Outpatient (CLI) | payer MEDICARE, MEDICAID, SELFPAY ==
[2021-06-04 14:35] LABS: Alanine Aminotransferase 21 U/L (12-78); Albumin Level 3.2 g/dl (3.5-5.0); Albumin/Globulin Ratio 1.3 (1.1-1.8); Alkaline Phosphatase 48 U/L (38-126); Anion Gap 12.1 mEq/L (5-15); Aspartate Amino Transferase 68 U/L (14-36); Bilirubin,Total 0.8 mg/dl (0.2-1.3); Blood Urea Nitrogen 17 mg/dl (7-17); Carbon Dioxide 30 mmol/L (22.0-30.0); Chloride 101 mmol/L (98-107); Estimated Glomerular Filt Rate 72 ml/min (>60); GFR (African American) 87 ML/MIN (>60); Globulin 2.5 g/dL (1.3-3.2); Glucose 82 mg/dl (74-100); HDL Cholesterol 30 mg/dl (40-60); Potassium 4.1 mmoL/L (3.5-5.1); Sodium 139 mmol/L (136-145); Total Protein,Serum 5.7 g/dl (6.3-8.2)
[2021-06-04 14:43] LABS: Chol/HDL Ratio 3.7 (1-3.5); Cholesterol 111 mg/dl (140-200); Triglycerides 207 mg/dl (30-150); VLDL Cholesterol 41 mg/dL (0-40)
[2021-06-04 14:47] LABS: Direct LDL Cholesterol 38.13 mg/dL (100-129); Valproic Acid, (Depakene) 93.7 ug/ml (50-100)
[2021-06-04 15:00] LABS: Hemoglobin A1C 4.8 % (4.0-6.0)
[2021-06-04 15:06] LABS: Thyroid Stimulating Hormone < 0.02 uIU/mL (0.465-4.68)
[2021-06-04 15:55] LABS: Basophils % 0.6 % (0.1-2.0); Eosinophils % 0.8 % (0.1-12.0); Hematocrit 34.9 % (37.0-47.0); Hemoglobin 11.2 g/dL (12.2-16.2); Lymphocytes # 2.6 K/mm3 (0.7-4.5); Lymphocytes % 63.8 % (10-50); Mean Corpuscular HGB Conc 32.3 g/dL (31.8-35.4); Mean Corpuscular Hemoglobin 31.2 pg (27.0-31.2); Mean Corpuscular Volume 96.7 fl (81-99); Mean Platelet Volume 11.6 fl (7.4-10.4); Monocytes # 0.4 K/mm3 (0.1-1.0); Monocytes % 8.7 % (1.7-9.3); Neutrophils # 1.1 K/mm3 (1.8-7.8); Neutrophils % 26.1 % (37.0-80.0); Platelet Count 121 K/mm3 (142-424); Red Cell Distribution Width 14.4 % (11.5-17.5); White Blood Count 4.1 K/mm3 (4.8-10.8)
[2021-06-04 15:57] LABS: MANUAL DIFFERENTIAL MANUAL DIFFERENTIAL (MANUAL DIFF)
[2021-06-04 16:41] LABS: Lymphocytes % 43 % (10-50); Monocytes % 4 % (2-9); Neutrophils % 50 % (42-76); Total Cells Counted 100
[2021-06-04 16:46] LABS: Platelet Estimate Slight Decrease
== END ==
PROVIDERS: Visit Provider Nurse Practitioner Family
DX: I10 Essential (primary) hypertension (principal); R79.1 Abnormal coagulation profile; E66.9 Obesity, unspecified; Z79.899 Other long term (current) drug therapy; Z51.81 Encounter for therapeutic drug level monitoring
CPT/HCPCS: 36415; 80053; 80061; 80164; 83036; 84443; 85007; 85025

== ENCOUNTER → 2021-06-07 07:40 | Outpatient (CLI) | payer MEDICARE, MEDICAID, SELFPAY ==
--- NOTE | 2021-06-07 07:47 | MM_ITS ---
PROCEDURE: MM DIG SCREENING MAMM BI W/CAD Digital Breast Tomosynthesis Included CLINICAL INDICATION: SCREENING COMPARISON: MG SCBI MM Dig screening mamm BI w/CAD from 12/22/2018 MG DXRT MM Dig mamm DX unilat RT CAD from 02/10/2019 MG MM DIG MAMM DX UNILAT RT CAD from 07/27/2019 MG MM DIG MAMM BI DX W/CAD from 04/10/2020 TECHNIQUE: Standard CC and MLO images and 3D Tomosynthesis was obtained. R2 CAD reviewed. FINDINGS: Mostly fatty replaced fibroglandular tissue. Pacemaker artifact present on the left. No suspicious appearing mass, malignant-appearing microcalcification, architectural distortion, or skin thickening. No significant change IMPRESSION: Negative BI-RAD Category: 1 Negative FOLLOW-UP: 1 YR 1 Year Follow-up (A letter has been sent to the patient regarding results of the study.) Dictated by: Adbirizak Neumann MD 06/20/2021 14:27 Abdirizak Neumann MD in [place] 06/20/2021 14:27
--- NOTE | 2021-06-07 08:27 | CT_ITS ---
PROCEDURE: CT CHEST WO CON CLINICAL INDICATION: LUNG NODULES Follow-up lung nodules and infiltrates COMPARISON: CT LDLS from 04/05/[address] CHEST WO CON from 04/10/2020 TECHNIQUE: Axial images obtained with sagittal and coronal reformats. All CT scans at the facility use one or more dose reduction, viz: automated exposure control, ma/kV adjustment per patient size (including targeted exams where dose is matched to indication, i.e. head), or iterative reconstruction technique. FINDINGS: HEART AND MEDIASTINAL STRUCTURES: Cardiac pacemaker device is present from left subclavian approach. Coronary artery stents are noted. Mild ectasia ascending aorta at 3.8 cm unchanged. No mediastinal or hilar mass or adenopathy. LUNGS AND PLEURAL SPACES: Biapical scarring. The stable 4 mm nodule right middle lobe. Stable 4 mm nodule right lower lobe. Previously noted infiltrates have resolved. Scarring noted in the lingula as before. No new nodules. No effusions or infiltrates. BONY STRUCTURES: No acute bony abnormalities apparent. UPPER ABDOMEN: There is a ventral abdominal wall hernia containing fat 7 cm inferior to the tip of the xiphoid process. ADDITIONAL FINDINGS: No other significant abnormalities. IMPRESSION: No acute finding. Stable bilateral pulmonary nodules Resolved areas of pneumonia. Dictated by: Abdirizak Neumann MD 06/08/2021 08:14 Abdirizak Neumann MD in [place] 06/08/2021 08:14
== END ==
PROVIDERS: PCP Internal Medicine Adolescent Medicine; Visit Provider Nurse Practitioner Family
DX: Z12.31 Encounter for screening mammogram for malignant neoplasm of breast (principal); Z87.891 Personal history of nicotine dependence; Z12.2 Encounter for screening for malignant neoplasm of respiratory organs
CPT/HCPCS: 71250; 77063; 77067

== ENCOUNTER → 2021-06-13 07:36 | Outpatient (CLI) | payer MEDICARE, MEDICAID, SELFPAY ==
[2021-06-13 14:50] LABS: Blood Urea Nitrogen 19 mg/dl (7-17); Estimated Glomerular Filt Rate 83 ml/min (>60); GFR (African American) 101 ML/MIN (>60)
== END ==
PROVIDERS: Visit Provider Nurse Practitioner Family
DX: Z01.812 Encounter for preprocedural laboratory examination (principal)
CPT/HCPCS: 36415; 82565; 84520

== ENCOUNTER → 2021-06-17 10:15 | Outpatient (CLI) | payer MEDICARE, MEDICAID, SELFPAY ==
--- NOTE | 2021-06-17 10:23 | CT_ITS ---
Procedure: CT ANGIO NECK CLINICAL HISTORY: ABN IMAGING ON DOPPLER Carotid stenosis COMPARISON: CT CT ANGIO HEAD from 06/17/2021 TECHNIQUE: IV Contrast: 100ml Isovue 370 Axial images obtained with sagittal and coronal reformats. All CT scans at the facility use one or more dose reduction, viz: automated exposure control, ma/kV adjustment per patient size (including targeted exams where dose is matched to indication, i.e. head), or iterative reconstruction technique. FINDINGS: CTA NECK: Calcific plaque is present in the aortic arch. No significant stenosis of the great vessels. There is some calcific plaque at the ostium of the left common carotid and subclavian artery. Right carotid: No significant stenosis. There is mild eccentric fibrocalcific plaque at the proximal ICA on the right. There is tortuosity of the distal ICA which may account for the increased velocity on the duplex carotid. Left carotid: The left common carotid is unremarkable. Minimal eccentric calcific plaque at the carotid bulb. No stenosis. Moderate tortuosity of the distal left ICA. No significant stenosis. Vertebrals: Hypoplastic right vertebral artery which ends in PICA. Small amount of eccentric calcific plaque is present involving the left dominant vertebral with no significant stenosis. The left vertebral gives rise to the basilar artery. CTA BRAIN: Mild atheromatous changes are present involving the cavernous portion of the ICAs with minimal luminal irregularity. No significant stenosis. There is persistent origin of the right posterior cerebral artery as a normal variant. There is a hypoplastic A1 segment on the right with a dominant left A1 segment. No large aneurysms are evident. A small infundibulum is present at the origin of the left meningeal hypophyseal branch at approximately 2 mm. 2/396 no other significant anomalies are evident. No midline shift, mass effect, intracranial hemorrhage, or hydrocephalus is evident. No enhancing lesions. No dural venous thrombosis. IMPRESSION: 1. No carotid stenotic lesions evident. There is tortuosity of the ICAs distally on both sides which may account for the increased velocity on the carotid Doppler. Mild atheromatous calcific and fibrocalcific plaque without significant stenosis. No ulceration or dissection. 2. 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 Small area of protrusion along the suprasellar portion of the left ICA suggesting a small infundibulum of the meningeal hypophyseal branch. Consider follow-up exam in 6 months to confirm stability. Dictated by: Abdirizak Neumann MD 06/18/2021 06:38 Abdirizak Neumann MD in [place] 06/18/2021 06:38
== END ==
PROVIDERS: PCP Internal Medicine Adolescent Medicine; Visit Provider Nurse Practitioner Family
DX: R51.9 Headache, unspecified (principal); M54.2 Cervicalgia; I65.23 Occlusion and stenosis of bilateral carotid arteries
CPT/HCPCS: 70496; 70498; Q9967

== ENCOUNTER → 2021-07-22 06:57 | Outpatient (CLI) | payer MEDICARE, MEDICAID, SELFPAY ==
[2021-07-22 14:04] LABS: Basophils % 0.3 % (0.1-2.0); Eosinophils # 0.1 K/mm3 (0.0-0.4); Hematocrit 34.8 % (37.0-47.0); Hemoglobin 11.3 g/dL (12.2-16.2); Lymphocytes % 65.9 % (10-50); Mean Corpuscular HGB Conc 32.5 g/dL (31.8-35.4); Mean Corpuscular Hemoglobin 32.4 pg (27.0-31.2); Mean Corpuscular Volume 99.6 fl (81-99); Mean Platelet Volume 11.1 fl (7.4-10.4); Monocytes # 0.4 K/mm3 (0.1-1.0); Monocytes % 5.8 % (1.7-9.3); Neutrophils # 1.6 K/mm3 (1.8-7.8); Neutrophils % 26.9 % (37.0-80.0); Platelet Count 195 K/mm3 (142-424); Red Blood Count 3.49 M/mm3 (4.20-5.40); Red Cell Distribution Width 14.2 % (11.5-17.5)
[2021-07-22 14:09] LABS: MANUAL DIFFERENTIAL MANUAL DIFFERENTIAL (MANUAL DIFF)
[2021-07-22 14:16] LABS: Chloride 96 mmol/L (98-107); Sodium 138 mmol/L (136-145)
[2021-07-22 14:17] LABS: Potassium 3.7 mmoL/L (3.5-5.1)
[2021-07-22 14:20] LABS: Anion Gap 13.7 mEq/L (5-15); Blood Urea Nitrogen 16 mg/dl (7-17); Calcium 9.1 mg/dl (8.4-10.2); Carbon Dioxide 32 mmol/L (22.0-30.0); Estimated Glomerular Filt Rate 83 ml/min (>60); GFR (African American) 101 ML/MIN (>60); Glucose 80 mg/dl (74-100)
[2021-07-22 17:56] LABS: Eosinophils % 1 % (0-3); Lymphocytes % 75 % (10-50); Monocytes % 7 % (2-9); Neutrophils % 17 % (42-76); Platelet Estimate Normal; RBC Morphology Normal; Total Cells Counted 100
== END ==
PROVIDERS: Visit Provider Internal Medicine Adolescent Medicine
DX: I10 Essential (primary) hypertension (principal)
CPT/HCPCS: 36415; 80048; 85007; 85025

== ENCOUNTER → 2021-09-02 06:47 | Outpatient (CLI) | payer MEDICARE, MEDICAID, SELFPAY ==
[2021-09-02 14:13] LABS: Chloride 100 mmol/L (98-107); Potassium 3.5 mmoL/L (3.5-5.1); Sodium 136 mmol/L (136-145)
[2021-09-02 14:15] LABS: Blood Urea Nitrogen 21 mg/dl (7-17); Estimated Glomerular Filt Rate 83 ml/min (>60); GFR (African American) 101 ML/MIN (>60)
[2021-09-02 14:16] LABS: Alanine Aminotransferase 12 U/L (12-78); Albumin/Globulin Ratio 1.1 (1.1-1.8); Alkaline Phosphatase 53 U/L (38-126); Anion Gap 10.5 mEq/L (5-15); Aspartate Amino Transferase 37 U/L (14-36); Basophils # 0.1 K/mm3 (0-0.2); Basophils % 0.6 % (0.1-2.0); Bilirubin,Total 0.8 mg/dl (0.2-1.3); Carbon Dioxide 29 mmol/L (22.0-30.0); Chol/HDL Ratio 2.5 (1-3.5); Cholesterol 93 mg/dl (140-200); Eosinophils # 0.1 K/mm3 (0.0-0.4); Eosinophils % 0.5 % (0.1-12.0); Globulin 2.7 g/dL (1.3-3.2); Glucose 91 mg/dl (74-100); HDL Cholesterol 37 mg/dl (40-60); Hemoglobin 10.5 g/dL (12.2-16.2); Lymphocytes # 3.9 K/mm3 (0.7-4.5); Lymphocytes % 31.8 % (10-50); Mean Corpuscular HGB Conc 31.8 g/dL (31.8-35.4); Mean Corpuscular Hemoglobin 31.7 pg (27.0-31.2); Mean Corpuscular Volume 99.5 fl (81-99); Mean Platelet Volume 10.8 fl (7.4-10.4); Monocytes # 0.7 K/mm3 (0.1-1.0); Monocytes % 5.8 % (1.7-9.3); Neutrophils # 7.5 K/mm3 (1.8-7.8); Neutrophils % 61.3 % (37.0-80.0); Platelet Count 158 K/mm3 (142-424); Red Blood Count 3.32 M/mm3 (4.20-5.40); Red Cell Distribution Width 14.1 % (11.5-17.5); Total Protein,Serum 5.7 g/dl (6.3-8.2); Triglycerides 108 mg/dl (30-150); VLDL Cholesterol 22 mg/dL (0-40); White Blood Count 12.2 K/mm3 (4.8-10.8)
[2021-09-02 14:27] LABS: Direct LDL Cholesterol 32.22 mg/dL (100-129)
[2021-09-02 14:47] LABS: Thyroid Stimulating Hormone 0.06 uIU/mL (0.465-4.68)
[2021-09-02 15:01] LABS: Hemoglobin A1C 4.7 % (4.0-6.0)
== END ==
PROVIDERS: Visit Provider Nurse Practitioner Family
DX: I10 Essential (primary) hypertension (principal); Z79.899 Other long term (current) drug therapy
CPT/HCPCS: 36415; 80053; 80061; 83036; 84443; 85025

== ENCOUNTER → 2021-09-05 07:52 | Outpatient (CLI) | payer MEDICARE, MEDICAID, SELFPAY ==
[2021-09-05 15:54] LABS: Anion Gap 8.8 mEq/L (5-15); Blood Urea Nitrogen 17 mg/dl (7-17); Calcium 8.6 mg/dl (8.4-10.2); Carbon Dioxide 32 mmol/L (22.0-30.0); Chloride 98 mmol/L (98-107); Estimated Glomerular Filt Rate 99 ml/min (>60); GFR (African American) 120 ML/MIN (>60); Glucose 102 mg/dl (74-100); Potassium 3.8 mmoL/L (3.5-5.1); Sodium 135 mmol/L (136-145)
== END ==
PROVIDERS: Visit Provider Nurse Practitioner Family
DX: I10 Essential (primary) hypertension (principal)
CPT/HCPCS: 36415; 80048

== ENCOUNTER → 2021-10-15 08:45 | Outpatient (CLI) | payer MEDICARE, MEDICAID, SELFPAY ==
[2021-10-15 13:57] LABS: Chloride 98 mmol/L (98-107); Sodium 139 mmol/L (136-145)
[2021-10-15 13:58] LABS: Potassium 3.6 mmoL/L (3.5-5.1)
[2021-10-15 14:00] LABS: Alanine Aminotransferase 12 U/L (12-78); Albumin Level 3.3 g/dl (3.5-5.0); Alkaline Phosphatase 91 U/L (38-126); Anion Gap 12.6 mEq/L (5-15); Aspartate Amino Transferase 37 U/L (14-36); Blood Urea Nitrogen 27 mg/dl (7-17); Carbon Dioxide 32 mmol/L (22.0-30.0); Estimated Glomerular Filt Rate 71 ml/min (>60); GFR (African American) 86 ML/MIN (>60)
[2021-10-15 14:01] LABS: Albumin/Globulin Ratio 1.2 (1.1-1.8); Calcium 8.9 mg/dl (8.4-10.2); Globulin 2.7 g/dL (1.3-3.2); Glucose 83 mg/dl (74-100)
[2021-10-15 14:02] LABS: Basophils % 0.5 % (0.1-2.0); Eosinophils # 0.2 K/mm3 (0.0-0.4); Hematocrit 34.3 % (37.0-47.0); Hemoglobin 11.3 g/dL (12.2-16.2); Lymphocytes # 3.2 K/mm3 (0.7-4.5); Lymphocytes % 42.9 % (10-50); Mean Corpuscular Hemoglobin 31.1 pg (27.0-31.2); Mean Corpuscular Volume 94.2 fl (81-99); Mean Platelet Volume 10.4 fl (7.4-10.4); Monocytes # 0.4 K/mm3 (0.1-1.0); Monocytes % 5.8 % (1.7-9.3); Neutrophils # 3.6 K/mm3 (1.8-7.8); Neutrophils % 48.7 % (37.0-80.0); Platelet Count 250 K/mm3 (142-424); Red Blood Count 3.64 M/mm3 (4.20-5.40); Red Cell Distribution Width 14.1 % (11.5-17.5); White Blood Count 7.5 K/mm3 (4.8-10.8)
[2021-10-15 14:15] LABS: Bilirubin,Total 0.1 mg/dl (0.2-1.3)
[2021-11-12 11:50] LABS: Free Valproic Acid (Depakote) 6.5
== END ==
PROVIDERS: Visit Provider Nurse Practitioner Family
DX: E11.9 Type 2 diabetes mellitus without complications (principal); G40.909 Epilepsy, unspecified, not intractable, without status epilepticus; Z79.84 Long term (current) use of oral hypoglycemic drugs
CPT/HCPCS: 36415; 80053; 80165; 85025

== ENCOUNTER → 2021-11-12 07:09 | Outpatient (CLI) | payer MEDICARE, MEDICAID, SELFPAY ==
[2021-11-12 13:57] LABS: Alanine Aminotransferase 16 U/L (12-78); Albumin Level 3.5 g/dl (3.5-5.0); Albumin/Globulin Ratio 1.3 (1.1-1.8); Alkaline Phosphatase 55 U/L (38-126); Anion Gap 11.3 mEq/L (5-15); Aspartate Amino Transferase 45 U/L (14-36); Bilirubin,Total 0.4 mg/dl (0.2-1.3); Blood Urea Nitrogen 25 mg/dl (7-17); Calcium 9.3 mg/dl (8.4-10.2); Carbon Dioxide 33 mmol/L (22.0-30.0); Chloride 97 mmol/L (98-107); Estimated Glomerular Filt Rate 71 ml/min (>60); GFR (African American) 86 ML/MIN (>60); Globulin 2.7 g/dL (1.3-3.2); Glucose 86 mg/dl (74-100); Magnesium 1.5 mg/dl (1.6-2.3); Phosphorous 4.5 mg/dl (2.5-4.5); Potassium 3.3 mmoL/L (3.5-5.1); Sodium 138 mmol/L (136-145); Total Protein,Serum 6.2 g/dl (6.3-8.2)
[2021-11-12 14:09] LABS: Basophils # 0.1 K/mm3 (0-0.2); Basophils % 0.9 % (0.1-2.0); Eosinophils # 0.1 K/mm3 (0.0-0.4); Eosinophils % 1.8 % (0.1-12.0); Hematocrit 38.6 % (37.0-47.0); Hemoglobin 12.4 g/dL (12.2-16.2); Lymphocytes # 3.8 K/mm3 (0.7-4.5); Lymphocytes % 60.3 % (10-50); Mean Corpuscular HGB Conc 32.1 g/dL (31.8-35.4); Mean Corpuscular Hemoglobin 30.9 pg (27.0-31.2); Mean Corpuscular Volume 96.3 fl (81-99); Mean Platelet Volume 10.8 fl (7.4-10.4); Monocytes # 0.4 K/mm3 (0.1-1.0); Monocytes % 6.7 % (1.7-9.3); Neutrophils # 1.9 K/mm3 (1.8-7.8); Neutrophils % 30.4 % (37.0-80.0); Platelet Count 236 K/mm3 (142-424); Red Blood Count 4.01 M/mm3 (4.20-5.40); Red Cell Distribution Width 14.9 % (11.5-17.5); White Blood Count 6.3 K/mm3 (4.8-10.8)
[2021-11-12 14:19] LABS: MANUAL DIFFERENTIAL MANUAL DIFFERENTIAL (MANUAL DIFF)
[2021-11-12 14:28] LABS: Thyroid Stimulating Hormone 0.03 uIU/mL (0.465-4.68)
[2021-11-12 15:33] LABS: Eosinophils % 2 % (0-3); Lymphocytes % 62 % (10-50); Monocytes % 7 % (2-9); Neutrophils % 29 % (42-76); Total Cells Counted 100
[2021-11-12 15:34] LABS: Platelet Estimate Normal
== END ==
PROVIDERS: Visit Provider Nurse Practitioner Family
DX: I10 Essential (primary) hypertension (principal); Z79.899 Other long term (current) drug therapy
CPT/HCPCS: 36415; 80053; 83735; 84100; 84443; 85007; 85025

== ENCOUNTER → 2021-11-26 06:38 | Outpatient (CLI) | payer MEDICARE, MEDICAID, SELFPAY ==
[2021-11-26 14:28] LABS: Magnesium 1.9 mg/dl (1.6-2.3)
== END ==
PROVIDERS: Visit Provider Nurse Practitioner Family
DX: R79.89 Other specified abnormal findings of blood chemistry (principal)
CPT/HCPCS: 36415; 83735

== ENCOUNTER → 2021-12-24 06:26 | Outpatient (CLI) | payer MEDICARE, MEDICAID, SELFPAY ==
[2021-12-24 14:31] LABS: Chloride 98 mmol/L (98-107); Sodium 134 mmol/L (136-145)
[2021-12-24 14:32] LABS: Potassium 3.5 mmoL/L (3.5-5.1)
[2021-12-24 14:34] LABS: Anion Gap 9.5 mEq/L (5-15); Blood Urea Nitrogen 22 mg/dl (7-17); Carbon Dioxide 30 mmol/L (22.0-30.0); Estimated Glomerular Filt Rate 62 ml/min (>60); GFR (African American) 75 ML/MIN (>60)
[2021-12-24 14:35] LABS: Calcium 8.3 mg/dl (8.4-10.2); Glucose 83 mg/dl (74-100); Magnesium 1.7 mg/dl (1.6-2.3)
== END ==
PROVIDERS: Visit Provider Nurse Practitioner Family
DX: I10 Essential (primary) hypertension (principal)
CPT/HCPCS: 36415; 80048; 83735

== ENCOUNTER → 2022-01-03 08:36 | Outpatient (CLI) | payer MEDICARE, MEDICAID, SELFPAY ==
--- NOTE | 2022-01-03 08:43 | CT_ITS ---
FINAL REPORT CLINICAL HISTORY: .cad, cta head and neck also done today FINDINGS: Axial images of the head were obtained without contrast. Coronal reformatted images were also obtained. This study was performed with techniques to keep radiation doses as low as reasonably achievable (ALARA). Individualized dose reduction techniques using automated exposure control or adjustment of mA and/or kV according to the patient's size were employed. There is generalized age-appropriate atrophy. Periventricular low-attenuation areas are seen consistent with mild chronic ischemic changes. There is no evidence of intracranial hemorrhage or mass. There is no evidence of acute infarct. There is no evidence of shift of the midline structures. No skull abnormality is seen on the bone window images. IMPRESSION: Atrophy and mild periventricular chronic ischemic changes. No acute intracranial abnormality identified. Reviewed, Interpreted and Dictated by Juan Marmolejo III, MD Transcribed by Penny Drew Authenticated by Juan Marmolejo III, MD on 01/03/2022 01:13:14 PM [facility]
--- NOTE | 2022-01-03 08:43 | CT_ITS ---
FINAL REPORT TECHNIQUE: Thin section axial CT with IV contrast supplemented with multiplanar reconstruction under CT angiogram protocol. 3-D reconstructions were performed. This study was performed with techniques to keep radiation doses as low as reasonably achievable (ALARA). Individualized dose reduction techniques using automated exposure control or adjustment of mA and/or kV according to the patient's size were employed. CLINICAL HISTORY: .cad FINDINGS: The distal vertebral, basilar and distal internal carotid arteries have an unremarkable appearance. No aneurysm is seen. Major intracranial vessels are patent without significant stenosis. IMPRESSION: No abnormality is identified. Reviewed, Interpreted and Dictated by Juan Marmolejo III, MD Transcribed by Penny Drew Authenticated by Juan Marmolejo III, MD on 01/03/2022 01:12:57 PM [facility]
--- NOTE | 2022-01-03 08:43 | CT_ITS ---
FINAL REPORT TECHNIQUE: Thin section axial CT with IV contrast supplemented with multiplanar reconstruction under CT angiogram protocol. This study was performed with techniques to keep radiation doses as low as reasonably achievable (ALARA). Individualized dose reduction techniques using automated exposure control or adjustment of mA and/or kV according to the patient''s size were employed. NASCET criteria was utilized during interpretation. CLINICAL HISTORY: CAD FINDINGS: Aortic arch: Arch shows no significant narrowing. Great vessel origins are widely patent. Right carotid: No significant stenosis is seen of the cervical common or internal carotid artery. There is moderate plaque at the level of the carotid bulb. Left carotid: No significant stenosis is seen of the cervical common or internal carotid artery. There is moderate plaque at the level of the carotid bulb. Vertebral: Left vertebral artery is dominant. No significant stenosis is present. IMPRESSION: No significant stenosis or major branch occlusion. Moderate plaque at the level of the carotid bulbs bilaterally. Reviewed, Interpreted and Dictated by Juan Marmolejo III, MD Transcribed by Penny Drew Authenticated by Juan Marmolejo III, MD on 01/03/2022 01:13:09 PM [facility]
== END ==
PROVIDERS: PCP Internal Medicine Adolescent Medicine; Visit Provider Internal Medicine Adolescent Medicine
DX: I25.10 Atherosclerotic heart disease of native coronary artery without angina pectoris (principal)
CPT/HCPCS: 70450; 70496; 70498; Q9967

== ENCOUNTER 2024-09-27 08:51 | Outpatient (CLI) | payer MEDICARE, MEDICAID, SELFPAY ==
--- OUTSIDE RECORDS SUMMARY | 2024-09-27 08:55 | XMS_ITS | Encounter Summary ---
Author Organization [employer] Address [address] [place] [address] Care Team Providers Care Woodworking Bench Carpenter Name Role Phone Marly Kumar NP Primary Care Provider [phone] Reason for Visit * Auth/Cert (Routine) Specialty Diagnoses / Procedures Referred By Nubia dawkins Referred To Contact Diagnoses Combined forms of age-related cataract of left eye SEE PRIMARY DX Procedures [place] XCAPSL CTRC RMVL INSJ IO LENS PROSTH W/O ECP EXTRACTION, CATARACT, WITH IOL INSERTION [facility] Operating Room [address] [place] [phone] Phone: tel: fax: [facility] Operating Room [address] [place] [phone] Phone: tel: fax: Referral ID Status Reason Start Date Expiration Date Visits Re quested Visits Authorized [id number] 1 1 Encounter Details Date Type Department Care Team (Late st Contact Info) Description 09/22/2024 1:37 PM EST Anesthesia Event [facility] Operating Room [address] [place] [phone] Hasmukh Porter, [employer] SUPERVISOR [address] [place] [address] Carole Baugh, DO [address] [place] [address] Anesthesia Record Procedure Summary Procedure Name Responsible Anesthesiologist Anesthesia Start Time Anesthesia Stop Time PHACO IOL OS PC 21.50 (Left: Eye) Hasmukh Porter, [employer] SUPERVISOR 09/22/24 1337 09/22/24 1352 Events Date Time Event Comment 09/22/2024 1247 1337 An Start Patient identif ied and chart reviewed. 1337 An Start Data Anesthesia mac alfonso and monitors checked. 1337 Pre-Induction Eval FDA anest hesia machine pre-use checkout completed. Patient status reassessed prior to start of anesthesia care. 1337 Anesthesia Ready 1351 an stop data 1352 Handoff to Receiving I compl eted my handoff to the receiving clinician during which we: 1. Identified the patient. 2. Identified the responsible provider. 3. Reviewed the pertinent medical history. 4. Discussed the surgical course. 5. Reviewed intra-op anesthesia management and issues during anesthesia. 6. Set expectations for post-procedure period. 7. Allowed opportunity for questions and acknowledgement of understanding. 1352 An Stop Meds Name Total midazolam (VERSED) injection 1 mg/ mL 2 mg * Agents Name O2 N2O Air * Blood No blood administrations on file. Lines, Drains, and Airways Type Details Placement Removal Wound 09/22/24; 1221; Inci patricia; Eye; Left 09/22/24 1221 by Ling Delaney RN Peripheral IV Placement Date: 09/03 11/25; Placement Time: 1214; Size: 22 G; Orientation: Anterior, Left; Location: Forearm; Site Prep: Alcohol; Inserted by: adonis dinero; Insertion attempts: 1; Securement Method: Taped; Removal Date: 09/22/24; Removal Time: 1354; Removal Reason: Therapy Completed 09/22/24 1214 by Ruth Armijo RN 09/22/24 1354 by Celeste Alvarez RN documented in this encounter Social History Tobacco Use Types Packs/Day Years Used Date Smoking Tobacco: Former Cigarettes Smokeless Tobacco: Never Alcohol Use Standard Drinks/Week Comments Not Currently 0 (1 standard drink = 0.6 oz pur e alcohol) Comments No Sex and Gender Information Value Date Recorded Sex Assigned at Female 05/01/2022 3:59 PM CDT Legal Sex Female 1:54 PM CDT Gender Identity Female 05/01/2022 3:59 PM CDT Sexual Orientation Not on file documented as of this encounter OR Notes * Anesthesia Postprocedure Evaluation - Hasmukh Porter CRNA - 09/22/2024 1:52 PM EST Patient: Eloy Perkins Procedure Summary Date: 09/22/24 Room / Location: [facility] [place] [facility] OPERATING ROOM Anesthesia Start: 1337 Anesthesia Stop: Procedure: PHACO IOL OS PC 21.50 (Left: Eye) Diagnosis: Combined forms of age-related cataract of left eye (SEE PRIMARY DX) Surgeons: Urmila So MD Responsible Provider: Hasmukh Porter CRNA Anesthesia Type: MAC ASA Status: 4 Anesthesia Type: MAC Vitals Value Taken Time BP 153/70 09/22/24 1352 Temp 97 09/22/24 1352 Pulse 70 09/22/24 1352 Resp 12 09/22/24 1352 SpO2 100 09/22/24 1352 Ht 1.524 m (5') Wt 70.3 kg (155 lb) BMI 30.27 kg/m?? Anesthesia Post Evaluation Patient location during evaluation: PACU Patient participation: complete - patient participated Level of consciousness: awake Pain score: 0 Pain management: adequate Multimodal analgesia pain management approach Airway patency: patent Cardiovascular status: stable Respiratory status: nasal cannula Hydration status: stable Color: [place] Activity: Moves 4 extremities Inotropes/Vasopressors: N/A No notable events documented. Hasmukh Porter CRNA 09/22/2024 1:52 PM EST ET RISK SPECIALIST * Anesthesia Preprocedure Evaluation - Carole Baugh DO - 09/22/2024 12:44 PM EST Anesthesia Pre Evaluation Ms. Eloy Perkins is a 69 y.o. female being evaluated for the following: Date/Time: 09/22/24 1427 Procedure: PHACO IOL OS PC 21.50 (Left: Eye) - 1215 Pacemaker Location: [facility] OR OPERATING ROOM Surgeons: Urmila So MD Relevant Problems No relevant active problems Past Medical History: Diagnosis Date COPD (chronic obstructive pulmonary disease) (HCC) History of migraine Presence of combination internal cardiac defibrillator (ICD) and pacemaker MRI compatible Seizure (HCC) beginning of year Stroke (HCC) strokes-last one two years ago Past Surgical History: Procedure Laterality Date BREAST LUMPECTOMY Right CARDIAC PACEMAKER PLACEMENT CHOLECYSTECTOMY HERNIA REPAIR Inguinal HYSTERECTOMY MOUTH SURGERY gums NERVE SURGERY left arm nerve rotation Allergies Allergen Reactions Penicillin Hives Sulfa (Sulfonamide Antibiotics) Nausea And Vomiting Alendronate Rash Current Outpatient Medications Medication Instructions aspirin 81 mg, Daily atorvastatin (LIPITOR) 40 mg, Every Night budesonide-formoteroL (SYMBICORT) 160-4.5 mcg/actuation inhaler 2 puffs, 2 times daily (RT) divalproex (DEPAKOTE) 500 mg, 2 times daily fenofibrate (TRICOR) 145 mg, Daily furosemide (LASIX) 20 mg, Daily levothyroxine (SYNTHROID) 88 mcg, Daily (0600) loratadine (CLARITIN) 10 mg, Daily magnesium oxide (MAG-OX) 400 mg tablet 1 tablet, Daily midodrine (PROAMATINE) 2.5 mg, 2 times daily mirtazapine (REMERON) 30 mg, Every Night omeprazole (PRILOSEC) 40 mg, Daily (0600) ondansetron (ZOFRAN) 4 mg, Every 6 hours PRN OXcarbazepine (TRILEPTAL) 300 mg, 2 times daily potassium chloride 40 mEq/15 mL liqd 10 mEq, Daily QUEtiapine (SEROQUEL) 12.5-25 mg, Every Night tiZANidine (ZANAFLEX) 2-4 mg, Every 6 hours PRN Clinical information reviewed: NPO Status Date of last liquid: 09/21/24 Time of last liquid: 1899 Date of last solid: 09/21/24 Time of last solid: 1899 Physical Exam Airway Mallampati: III TM distance: <3 FB Neck ROM: full Cardiovascular - normal exam Dental Comments: decay Pulmonary - normal exam Abdominal Anesthesia Plan ASA 4 Planned anesthetic: MAC (MAC) Induction: intravenous Informed Consent- Anesthetic plan and risks discussed with patient. Plan discussed with [employer] SUPERVISOR. AICD - St Doc (for ischemic cardiomyopathy) placed 2015, generator change 2022. Sees lita Nicole . CAD- 2 stents 2015 COPD- inhalers prn ZULEYKA- BIPAP ET RISK SPECIALIST documented in this encounter Plan of Treatment Not on file documented as of this encounter Visit Diagnoses Not on filedocumented in this encounter Administered Medications Inactive Administered Medications - up to 3 most recent administrations Medication Order MAR Action Action Date Dose Rate Site midazolam (VERSED) injection As needed, intravenous, Starting on Mary 09/22/24 at 1339, Anesthesia Intra-op Given 09/22/2024 1:39 PM EST 2 mg documented in this encounter Care Teams Woodworking Bench Carpenter Relationship Specialty Start Date End Date Marly Kumar, DUNG [address] [place] [address] PCP - General Nurse Practitioner 09/22/24 documented as of this encounter
--- OUTSIDE RECORDS SUMMARY | 2024-09-27 08:55 | XMS_ITS | Encounter Summary ---
Author Organization [facility] [employer] Address [address] [place] [address] Care Team Providers Care Bolt Loader Name Role Phone Marly Kumar [employer] SUPERVISOR Primary Care Provider [phone] Encounter Details Date Type Department Care Team (Late st Contact Info) Description 07/28/2020 Transcribed Document [facility] [place] Family Medicine [address] [place] [address] ProviderMiya MD [address] [place] [id number] Social History Tobacco Use Types Packs/Day Years Used Date Smoking Tobacco: Never Assessed Comments Unknown Sex and Gender Information Value Date Recorded Sex Assigned at Female 05/01/2022 3:59 PM CDT Legal Sex Female 1:54 PM CDT Gender Identity Female 05/01/2022 3:59 PM CDT Sexual Orientation Not on file documented as of this encounter Miscellaneous Notes * Cerner Conversion Note - Miya Vegas MD - 07/28/2020 11:02 AM CDT DATE OF SERVICE: 07/28/2020 REPORT TYPE: EEG REFERRING PHYSICIAN: Rad Duong MD REPORT TITLE: Video Electroencephalogram Report STUDY DURATION: 4 hours 15 minutes. 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 EEG VIDEO MONITORING METHODOLOGY: Time-locked EEG-video monitoring was performed using the 32-channel [employer] monitoring system. The seizure detection computer was used for detection of ictal discharges (subclinical and clinical), interictal discharges, and to record ictal events that were documented by depression of the event button in the patient's room. Analyses of the monitoring data were performed using the following techniques: Review of the relevant EEG-video data. Review of events detected by the computer system in detail. Review of clinical seizures, with both detailed review of EEG and video and playback using multiple montages. A variety of referential and bipolar montages were used. CLINICAL AND EEG ANALYSIS: There was no event reported. TIME SAMPLES: The recording was reviewed. During wakefulness, 9 to 9.5 Hz activity is seen posteriorly intermixed with lower amplitude faster activity in the beta range with a wider distribution. 4 to 5 Hz theta waves and less frequent higher amplitude 2 to 3 Hz delta waves are seen at F7-T7 and F8-T8, more commonly in the former. Sleep was recorded with the appearance of well-formed sleep spindles in both hemispheres. SPIKE DETECTION: The spike detection program was activated during the period of monitoring and revealed no abnormal paroxysmal activity. EEG DIAGNOSIS: This is an abnormal video EEG study because of focal slow wave activity seen independently at F7-T7 and F8-T8, more commonly in the former. CLINICAL INTERPRETATION: The patient had no clinical event during the period of monitoring. Continuous EEG recordings showed no electrographic ictal discharge or other epileptiform abnormality. EEG recordings showed focal slow-wave activity independently in the anterior temporal electrodes in both hemispheres, more commonly on the left, indicative of focal cerebral dysfunction in the anterior temporal regions, more prominent on the left. /[id number] MD RAPHAEL Esquivel/AQ / TAF / MODL /[id number] Electronically signed by [facility] Conversion Cereal Popper Cerner at 02/19/2023 6:29 PM CDT documented in this encounter Plan of Treatment Not on file documented as of this encounter Visit Diagnoses Not on filedocumented in this encounter Care Teams Bolt Loader Relationship Specialty Start Date End Date Marly Kumar, DUNG [address] [place] [address] PCP - General Nurse Practitioner 09/22/24 documented as of this encounter
--- OUTSIDE RECORDS SUMMARY | 2024-09-27 08:55 | XMS_ITS | Encounter Summary ---
Author Organization [facility] [employer] Address [address] [place] [address] Care Team Providers Care Leadership Development Manager Name Role Phone Marly Kumar NP Primary Care Provider [phone] Reason for Visit * Auth/Cert (Routine) Specialty Diagnoses / Procedures Referred By Nubia dawkins Referred To Contact Diagnoses Combined forms of age-related cataract of left eye SEE PRIMARY DX Procedures OR XCAPSL CTRC RMVL INSJ IO LENS PROSTH W/O ECP EXTRACTION, CATARACT, WITH IOL INSERTION [facility] Operating Room [address] [place] [phone] Phone: tel: fax: [facility] Operating Room [address] [place] [phone] Phone: tel: fax: Referral ID Status Reason Start Date Expiration Date Visits Re quested Visits Authorized [id number] 1 1 Encounter Details Date Type Department Care Team (Late st Contact Info) Description 09/22/2024 12:01 PM EST - 09/22/2024 1:57 PM [facility] Hospital Encounter [facility] Operating Room [address] [place] [phone] Urmila So MD [address] [facility] [address] [place] [phone] Discharge Disposition: Home or Self Care Social History Tobacco Use Types Packs/Day Years Used Date Smoking Tobacco: Former Cigarettes Smokeless Tobacco: Never Tobacco Cessation:Counseling Given: Not Answered Alcohol Use Standard Drinks/Week Comments Not Currently 0 (1 standard drink = 0.6 oz pur e alcohol) Comments No Sex and Gender Information Value Date Recorded Sex Assigned at Female 05/01/2022 3:59 PM CDT Legal Sex Female 1:54 PM CDT Gender Identity Female 05/01/2022 3:59 PM CDT Sexual Orientation Not on file documented as of this encounter Last Filed Vital Signs Vital Sign Reading Time Taken Comments Blood Pressure 163/84 09/22/2024 1:55 PM EST Pulse 67 09/22/2024 1:55 PM EST Temperature 36.3 ??C (97.4 ??F) 09/22/2024 1:55 PM ES T Respiratory Rate 17 09/22/2024 1:55 PM EST Oxygen Saturation 100% 09/22/2024 1:55 PM EST Inhaled Oxygen Concentration - - Weight 70.3 kg (155 lb) 09/22/2024 12:11 PM EST Height 152.4 cm (5') 09/22/2024 12:11 PM EST Body Mass Index 30.27 09/22/2024 12:11 PM EST documented in this encounter Medications at Time of Discharge aspirin 81 MG EC tablet Take 1 tablet (81 mg total) by mouth daily. atorvastatin (LIPITOR) 40 MG tablet Take 1 tablet (40 mg total) by mouth nightly. 07/21/2024 budesonide-formotero L (SYMBICORT) 160-4.5 mcg/actuation inhaler Inhale 2 puffs by mouth via inhaler 2 (two) times daily. divalproex (DEPAKOTE) 500 MG EC tablet Take 1 tablet (500 mg total) by mouth 2 (two) times daily. fenofibrate (TRICOR) 145 MG tablet Take 1 tablet (145 mg total) by mouth daily. furosemide (LASIX) 20 MG tablet Take 1 tablet (20 mg total) by mouth daily. 08/15/2024 levothyroxine (SYNTHROID) 88 MCG tablet Take 1 tablet (88 mcg total) by mouth Daily (0600). loratadine (CLARITIN) 10 mg tablet Take 1 tablet (10 mg total) by mouth daily. 08/22/2024 magnesium oxide (MAG-OX) 400 mg tablet Take 1 tablet (400 mg total) by mouth daily. 08/22/2024 midodrine (PROAMATINE) 2.5 MG tablet Take 1 tablet (2.5 mg total) by mouth 2 (two) times daily. 07/15/2024 mirtazapine (REMERON) 30 MG disintegrating tablet Take 1 tablet (30 mg total) by mouth nightly. omeprazole (PriLOSEC) 40 MG capsule Take 1 capsule (40 mg total) by mouth Daily (0600). ondansetron (ZOFRAN) 4 MG tablet Take 1 tablet (4 mg total) by mouth every 6 (six) hours as needed for nausea or vomiting. OXcarbazepine (TRILEPTAL) 300 MG tablet Take 1 tablet (300 mg total) by mouth 2 (two) times daily. potassium chloride 40 mEq/15 mL liqd Take 3.75 mLs (10 mEq total) by mouth daily. 09/08/2024 QUEtiapine (SEROquel) 25 MG tablet Take 0.5-1 tablets (12.5-25 mg total) by mouth nightly. 09/08/2024 tiZANidine (ZANAFLEX) 4 MG tablet Take 0.5-1 tablets (2-4 mg total) by mouth every 6 (six) hours as needed. 08/22/2024 documented as of this encounter H&P Notes * Urmila So MD - 09/22/2024 1:00 PM EST H&P reviewed. The patient was examined and there are no changes to the H&P. RAM PRODUCTION SPECIALIST Source Note - Urmila So MD - 09/19/2024 10:54 AM EST documented in this encounter Miscellaneous Notes * Op Note - Urmila So MD - 09/22/2024 1:33 PM EST Date: 09/22/24 Patient Name: Eloy Perkins : 1955 Procedures: Procedure(s): PHACO IOL OS PC 21.50 Indications: Eloy Perkins is an 69 y.o. female presents with SEE PRIMARY DX. The risks, benefits, and alternatives of the above procedure were discussed and the patient has elected to proceed. Surgeons: * Urmila So MD - Primary Findings: SEE MEDIA Anesthesia: Monitor Anesthesia Care Estimated Blood Loss: NONE Total IV Fluids: See anesthesia note Complications: SEE NOTE * Disposition: Post Op to Home Condition: Stable Urmila So MD RAM PRODUCTION SPECIALIST documented in this encounter Plan of Treatment Not on file documented as of this encounter Procedures Procedure Name Priority Date/Time Associated Diagnosis Comments OR XCAPSL CTRC RMVL INSJ IO LENS PROSTH W/O ECP 09/22/2024 1:37 PM EST Combined forms of age-related cataract of left eye Case Notes 1215 Pacemaker documented in this encounter Visit Diagnoses Not on filedocumented in this encounter Administered Medications Inactive Administered Medications - up to 3 most recent administrations Medication Order MAR Action Action Date Dose Rate Site ofloxacin (OCUFLOX) ophthalmic solution 0.3% 1 drop Every 5 min, left eye, First dose on Mary 09/22/24 at 1230, For 3 doses, Patient Supplied, Pre-op Given 09/22/2024 12:27 PM EST 1 drop Given 09/22/2024 12:20 PM EST 1 drop Given 09/22/2024 12:15 PM EST 1 drop phenylephrine (MYDFRIN) ophthalmic solution 2.5% 1 drop Every 5 min, left eye, First dose on Mary 09/22/24 at 1230, For 3 doses, Pre-op Given 09/22/2024 12:27 PM EST 1 drop Given 09/22/2024 12:20 PM EST 1 drop Given 09/22/2024 12:15 PM EST 1 drop povidone-iodine 5 % ophthalmic solution left eye, Once, On Mary 09/22/24 at 1230, For 1 dose, 1 drop in operative eye On-call to OR (immediately before leaving pre-op area -- after tetracaine), Pre-op Given 09/22/2024 1:18 PM EST tetracaine (PF) ophthalmic drop 0.5% 1 drop Every hour, left eye, First dose on Mary 09/22/24 at 1230, For 2 doses, Instill drop prior to all other eye drops; Instill an additional drop on-call to OR (immediately before leaving pre-op area), Pre-op Given 09/22/2024 1:19 PM EST 1 drop Given 09/22/2024 12:15 PM EST 1 drop Given 09/22/2024 12:14 PM EST 1 drop tropicamide (MYDRIACYL) ophthalmic solution 1% 1 drop Every 5 min, left eye, First dose on Mary 09/22/24 at 1230, For 3 doses, Pre-op Given 09/22/2024 12:27 PM EST 1 drop Given 09/22/2024 12:20 PM EST 1 drop Given 09/22/2024 12:15 PM EST 1 drop documented in this encounter Active and Recently Administered Medications Times are shown in EST. Scheduled Medication Order 09/20/2024 09/21/2024 09/22/2024 BSS with gentamicin, epinephrine and vancomycin ophthalmic irrigation (COMPLETED) ophthalmic, Once, On Mary 09/22/24 at 1230, For 1 dose, In the operative eye as per MD instructions during procedure, Intra-op 1230 (Due)1342 (Give n - Provider: Urimla So MD) lidocaine PF (XYLOCAINE) 40 mg/mL (4 %) injection 40 mg (COMPLETED) 40 mg Once (1 mL), other - see admin instructions, On Mary 09/22/24 at 1230, For 1 dose, In the operative eye as per MD instructions during procedure, Intra-op 1230 (Due)1342 (Give n - Provider: Roxana Rider RN) llhzumand-jhcdwprauyxr-DGS(PF) 1-1.5 % syrg 1 mL (COMPLETED) 1 mL Once, ophthalmic, On Mary 09/22/24 at 1230, For 1 dose, In the operative eye as per MD instructions during procedure, Intra-op 1230 (Due)1342 (Give n - Provider: Urmila So MD) ofloxacin (OCUFLOX) ophthalmic solution 0.3% (COMPLETED)(Linked Group 1) 1 drop Every 5 min, left eye, First dose on Mary 09/22/24 at 1230, For 3 doses, Patient Supplied, Pre-op 1215 (Given - Provid er: Nia Gage RN)1220 (Given - Provider: Nia Gage RN)1227 (Given - Provider: Nia Gage RN) ofloxacin (OCUFLOX) ophthalmic solution 0.3%(Linked Group 2) 1 drop Once, left eye, On Mary 09/22/24 at 1230, For 1 dose, Immediately after procedure Patient Supplied, Intra-op 1230 (Due) ofloxacin (OCUFLOX) ophthalmic solution 0.3%(Linked Group 2) 1 drop Once, left eye, On Mary 09/22/24 at 1230, For 1 dose, Immediately after procedure Hospital Supply - use only if patient own supply unavailable, Intra-op 1230 (Due) phenylephrine (MYDFRIN) ophthalmic solution 2.5% (COMPLETED) 1 drop Every 5 min, left eye, First dose on Mary 09/22/24 at 1230, For 3 doses, Pre-op 1215 (Given - Provid er: Nia Gage RN)1220 (Given - Provider: Nia Gage RN)1227 (Given - Provider: Nia Gage RN) povidone-iodine 5 % ophthalmic solution (COMPLETED) left eye, Once, On Mary 09/22/24 at 1230, For 1 dose, 1 drop in operative eye On-call to OR (immediately before leaving pre-op area -- after tetracaine), Pre-op 1318 (Given - Provid er: Chiquis Mccall RN) tetracaine (PF) ophthalmic drop 0.5% (COMPLETED) 1 drop Every hour, left eye, First dose on Mary 09/22/24 at 1230, For 2 doses, Instill drop prior to all other eye drops; Instill an additional drop on-call to OR (immediately before leaving pre-op area), Pre-op 1214 (Given - Provid er: Nery Matthew RN)1215 (Given - Provider: Nia Gage RN)1319 (Given - Provider: Chiquis Mccall RN) tropicamide (MYDRIACYL) ophthalmic solution 1% (COMPLETED) 1 drop Every 5 min, left eye, First dose on Mary 09/22/24 at 1230, For 3 doses, Pre-op 1215 (Given - Provid er: Nia Gage RN)1220 (Given - Provider: Nia Gage RN)1227 (Given - Provider: Nia Gage RN) Linked Groups Order Group 1: ofloxacin (OCUFLOX) ophthalmic solution 0.3% (COMPLETED)Jump to med 1 drop Every 5 min, left eye, First dose on Mary 09/22/24 at 1230, For 3 doses, Patient Supplied, Pre-op Or ofloxacin (OCUFLOX) ophthalmic solution 0.3% (COMPLETED) 1 drop Every 5 min, left eye, First dose on Mary 09/22/24 at 1230, For 3 doses, Hospital Supply - use only if patient own supply unavailable, Pre-op Or gentamicin (GARAMYCIN) ophthalmic solution 0.3% (CANCELED) 1 drop Every 5 min, left eye, First dose on Mary 09/22/24 at 1230, For 3 doses, If patient has ALLERGY to fluoroquinolones (e.g. levofloxacin, ciprofloxacin, ofloxacin, etc.) Patient Supplied, Pre-op Or tobramycin (TOBREX) 0.3 % ophthalmic solution 1 drop (CANCELED) 1 drop Every 5 min, left eye, First dose on Mary 09/22/24 at 1230, For 3 doses, If patient has ALLERGY to fluoroquinolones (e.g. levofloxacin, ciprofloxacin, ofloxacin, etc.) Hospital Supply - use only if patient own supply unavailable, Pre-op Group 2: ofloxacin (OCUFLOX) ophthalmic solution 0.3%Jump to med 1 drop Once, left eye, On Mary 09/22/24 at 1230, For 1 dose, Immediately after procedure Patient Supplied, Intra-op Or ofloxacin (OCUFLOX) ophthalmic solution 0.3%Jump to med 1 drop Once, left eye, On Mary 09/22/24 at 1230, For 1 dose, Immediately after procedure Hospital Supply - use only if patient own supply unavailable, Intra-op Or gentamicin (GARAMYCIN) ophthalmic solution 0.3% (CANCELED) 1 drop Once, left eye, On Mary 09/22/24 at 1230, For 1 dose, Immediately after procedure If patient has ALLERGY to fluoroquinolones (e.g. levofloxacin, ciprofloxacin, ofloxacin, etc.) Patient Supplied, Intra-op Or tobramycin (TOBREX) 0.3 % ophthalmic solution 1 drop (CANCELED) 1 drop Once, left eye, On Mary 09/22/24 at 1230, For 1 dose, Immediately after procedure If patient has ALLERGY to fluoroquinolones (e.g. levofloxacin, ciprofloxacin, ofloxacin, etc.) Hospital Supply - use only if patient own supply unavailable, Intra-op documented in this encounter Care Teams Leadership Development Manager Relationship Specialty Start Date End Date Marly Kumar, DUNG [address] [place] [address] PCP - General Nurse Practitioner 09/22/24 documented as of this encounter
--- OUTSIDE RECORDS SUMMARY | 2024-09-27 08:55 | XMS_ITS | Referral Summary ---
Author Organization [employer] Address [address] [place] [address] Care Team Providers Care Assistant Professor Of Life Sciences Name Role Phone Marly Kumar DIRECTOR OF SUSTAINABILITY PROGRAMS Primary Care Provider [phone] Encounters Date Type Department Care Team Description 09/22/2024 1:37 PM EST Anesthesia Event [facility] Operating Room [address] [place] [phone] Hasmukh Porter CRNA Qureshi, Hera Fatima, DO 09/22/2024 Travel 09/22/2024 2:27 PM EST - 09/22/2024 2:53 PM EST Surgery [facility] Operating Room [address] [place] [phone] Urmila So MD PHACO IOL OS PC 21.50 09/22/2024 12:01 PM EST - 09/22/2024 1:57 PM EST Hospital Encounter [facility] Operating Room [address] [place] [phone] Urmila So MD Discharge Disposition: Home or Self Care from Last 3 Months Allergies Active Allergy Reactions Criticality Noted Date Comments Alendronate Rash Low 03/06/2017 Penicillin Hives High 09/15/2024 Sulfa (Sulfonamide Antibiotics) Nausea And Vomiting 09/15/2024 Medications atorvastatin (LIPITOR) 40 MG tablet Take 1 tablet (40 mg total) by mouth nightly. 4 Active furosemide (LASIX) 20 MG tablet Take 1 tablet (20 mg total) by mouth daily. 4 Active loratadine (CLARITIN) 10 mg tablet Take 1 tablet (10 mg total) by mouth daily. 4 Active magnesium oxide (MAG-OX) 400 mg tablet Take 1 tablet (400 mg total) by mouth daily. 4 Active midodrine (PROAMATINE) 2.5 MG tablet Take 1 tablet (2.5 mg total) by mouth 2 (two) times daily. 4 Active potassium chloride 40 mEq/15 mL liqd Take 3.75 mLs (10 mEq total) by mouth daily. 4 Active QUEtiapine (SEROquel) 25 MG tablet Take 0.5-1 tablets (12.5-25 mg total) by mouth nightly. 4 Active tiZANidine (ZANAFLEX) 4 MG tablet Take 0.5-1 tablets (2-4 mg total) by mouth every 6 (six) hours as needed. 4 Active aspirin 81 MG EC tablet Take 1 tablet (81 mg total) by mouth daily. Active budesonide-formoter oL (SYMBICORT) 160-4.5 mcg/actuation inhaler Inhale 2 puffs by mouth via inhaler 2 (two) times daily. Active divalproex (DEPAKOTE) 500 MG EC tablet Take 1 tablet (500 mg total) by mouth 2 (two) times daily. Active fenofibrate (TRICOR) 145 MG tablet Take 1 tablet (145 mg total) by mouth daily. Active levothyroxine (SYNTHROID) 88 MCG tablet Take 1 tablet (88 mcg total) by mouth Daily (0600). Active mirtazapine (REMERON) 30 MG disintegrating tablet Take 1 tablet (30 mg total) by mouth nightly. Active omeprazole (PriLOSEC) 40 MG capsule Take 1 capsule (40 mg total) by mouth Daily (0600). Active ondansetron (ZOFRAN) 4 MG tablet Take 1 tablet (4 mg total) by mouth every 6 (six) hours as needed for nausea or vomiting. Active OXcarbazepine (TRILEPTAL) 300 MG tablet Take 1 tablet (300 mg total) by mouth 2 (two) times daily. Active Social History Tobacco Use Types Packs/Day Years [...] PM CDT Sexual Orientation Not on file Last Filed Vital Signs Vital Sign Reading [...] Mass Index 30.27 09/22/2024 12:11 PM EST Plan of Treatment Not on file Medical Devices Implanted Type Area Senior Buyer Device Identifier Shelf Expiration Date Model / Serial / Lot Iol Uv Clareon +21.5 [id number] - [id number] Implanted:Qty: 1 on 09/22/2024 by Urmila So MD at [facility] IMPLANTS Left: Eye GUS LAB:SURG 09/24/2027 [id number] / [id number] / Procedures Procedure Name Priority Date/Time Associated Diagnosis Comments NE XCAPSL CTRC RMVL INSJ IO LENS PROSTH W/O ECP 09/22/2024 1:37 PM EST Combined forms of age-related cataract of left eye Case Notes 1215 Pacemaker from Last 3 Months Insurance MEDICARE PART B ONLY MEDICAID OF [place] Care Teams Assistant Professor Of Life Sciences Relationship Specialty Start Date End Date Marly Kumar, DUNG [address] [place] [id number] PCP - General Nurse Practitioner 09/22/24
--- OUTSIDE RECORDS SUMMARY | 2024-09-27 08:55 | XMS_ITS | Clinical Summary ---
Author Organization [employer] Address [address] [place] [address] Care Team Providers Care Underwriter Solicitation Director Name Role Phone José Marly Kaity HANDBELL CHOIR DIRECTOR Primary Care Provider [phone] Allergies Active Allergy Reactions Criticality Noted Date [...] by mouth 2 (two) times daily. Active Encounters Date Type Department Care Team Description 09/22/2024 2:27 PM EST - 09/22/2024 2:53 PM EST Surgery [facility] Operating Room [address] [place] [phone] Urmila So MD PHACO IOL OS PC 21.50 09/22/2024 1:37 PM EST Anesthesia Event [facility] Operating Room [address] [place] [phone] Hasmukh Porter CRNA Qureshi, Hera Fatima, 09/22/2024 12:01 PM EST - 09/22/2024 1:57 PM EST Hospital Encounter [facility] Operating Room [address] [place] [phone] Urmila So MD Discharge Disposition: Home or Self Care 09/22/2024 Travel from Last 3 Months Social History Tobacco Use Types Packs/Day Years [...] 09/22/2024 12:11 PM EST Plan of Treatment Health Maintenance Due Date Last Done Comments CT Colonography 1953 Colonoscopy 1953 Colorectal Cancer Screening 1953 DXA SCAN 1953 FOBT/FIT 1953 Fit-DNA (Cologuard) 1953 Sigmoidoscopy 1953 Depression Screening (12+) 1965 Hepatitis C Screening 1971 DTAP/TDAP/TD VACCINES (1 - Tdap) 1972 Breast Cancer Screening 1993 Shingles Vaccine (Zoster) (1 of 2) 2003 Pneumococcal 65+ years (1 of 1 - PCV) 2018 Falls Risk Screening 11/02/2023 COVID-19 VACCINE (1 - season) 2024 Influenza Vaccine (#1) 2024 Tobacco Cessation Counseling and Screening (12+) 09/2209/22/2024 Respiratory Syncytial Virus (RSV) Adult or (1 - 1-dose 75+ series) 2028 Medical Devices Implanted Type Area Qualification Engineer Device Identifier Shelf Expiration Date Model / Serial / Lot Iol Uv Clareon +21.5 [id number] - [id number] Implanted:Qty: 1 on 09/22/2024 by Urmila So MD at [facility] IMPLANTS Left: Eye GUS LAB:SURG 09/24/2027 [id number] / [id number] / Procedures Procedure Name Priority Date/Time Associated Diagnosis Comments [place] XCAPSL CTRC RMVL INSJ IO LENS PROSTH W/O ECP 09/22/2024 1:37 PM EST Combined forms of age-related cataract of left eye Case Notes 1215 Pacemaker from Last 3 Months Insurance MEDICARE PART B ONLY MEDICAID OF [place] Care Teams Underwriter Solicitation Director Relationship Specialty Start Date End Date Marly Kumar NP [address] [place] [address] PCP - General Nurse Practitioner 09/22/24
--- OUTSIDE RECORDS SUMMARY | 2024-09-27 08:55 | XMS_ITS | Encounter Summary ---
Author Organization [facility] Address [address] [place] [address] Care Team Providers Care Entry Level Installation Technician Name Role Phone Unavailable Primary Care Provider Unavailabl e Encounter Details Date Type Department Care Team (Late st Contact Info) Description 07/27/2020 Historic Encounter [address] [phone] Provider, [facility] Historical Social History Tobacco Use Types Packs/Day Years Used Date Smoking Tobacco: Never Assessed Comments Unknown Sex and Gender Information Value Date Recorded Sex Assigned at Female 05/01/2022 3:59 PM CDT Legal Sex Female 1:54 PM CDT Gender Identity Female 05/01/2022 3:59 PM CDT Sexual Orientation Not on file documented as of this encounter Plan of Treatment Not on file documented as of this encounter Procedures Procedure Name Priority Date/Time Associated Diagnosis Comments GLUCOSE-POC Routine 07/27/2020 10:40 PM EDT documented in this encounter Results * (ABNORMAL) Glucose, Point of Care (07/27/2020 10:40 PM EDT) [facility] Signature Glucose POC2 126(H) 70 - 110 mg/dL 07/28/2020 2:[address] [facility] Telecommunicator Supervisor [phone] 07/28/2020 2:[address] [facility] Device SN [id number] 07/28/2020 2:[address] [facility] Blood 07/27/2020 10:4 0 PM EDT 07/28/2020 10:15 AM EDT [facility] Historical Provider POINT OF CARE TEST YELITZA LOU Final Result [facility] [address] [place] [address], [facility] [phone] documented in this encounter Visit Diagnoses Not on filedocumented in this encounter
--- OUTSIDE RECORDS SUMMARY | 2024-09-27 08:55 | XMS_ITS | Encounter Summary ---
Author Organization [facility] Address [address] [place] [address] Care Team Providers Care Aoc Operations Intelligence Chief Name Role Phone Unavailable Primary Care Provider Unavailabl e Encounter Details Date Type Department Care Team (Late st Contact Info) Description 08/09/2013 Office Visit Converted [facility] [address] [place] [address] Avinash Jerez MD Social History Tobacco Use Types Packs/Day Years Used Date Smoking Tobacco: Never Assessed Comments Unknown Sex and Gender Information Value Date Recorded Sex Assigned at Not on file Legal Sex Female 10:34 AM EDT Gender Identity Not on file Sexual Orientation Not on file documented as of this encounter Last Filed Vital Signs Vital Sign Reading Time Taken Comments Blood Pressure 128/84 08/09/2013 3:05 PM EDT Pulse - - Temperature - - Respiratory Rate - - Oxygen Saturation - - Inhaled Oxygen Concentration - - Weight 95.7 kg (211 lb) 08/09/2013 3:05 PM EDT Height 149.9 cm (4' 11 ) 08/09/2013 3:05 PM EDT Body Mass Index 42.62 08/09/2013 3:05 PM EDT documented in this encounter Progress Notes * Avinash Jerez MD - 08/09/2013 2:45 PM EDT Chief Complaint 1. Seizure History of Present Illness HPI: The patient is seen today in consultation at the request of Dr. Payne My assessment and recommendations follow below and have been forwarded to the referring doctor. 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 Apparently when she was in her teens her seizures subsided for some time and then she started havingthem on a regular basis but they were controlled with Depakote 500 in the morning and 1000 in the evening. More recently however she has had breakthrough seizures almost every single day. they are short and usually consist of staring spells. Her Depakote level was reported to be high and the dose was reduced to 500 in the morning and 750 in the evening. He also has had for about 7-8 years bilateral tremor which he takes Requip. Review of Systems Complete-Female: Constitutional: negative. Eyes: negative. ENT: negative. Cardiovascular: negative. Respiratory: negative. Gastrointestinal: negative. Genitourinary: negative. Musculoskeletal: negative. Integumentary and Breasts: negative. Neurological: as noted in HPI. Psychiatric: negative. Endocrine: negative. Hematologic and Lymphatic: negative. Past Medical History 1. History of Cancer 199.1 2. History of Chronic Obstructive Pulmonary Disease 496 3. History of Congestive Heart Failure 428.0 4. 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 History of Hyperlipidemia 272.4 6. History of Hypothyroidism 244.9 7. History of Osteoarthritis V13.4 8. History of Parkinson's Disease 332.0 9. History of Restless Legs Syndrome 333.94 10. History of Stroke Syndrome 436 Surgical History 1. History of Breast Surgery Lumpectomy 2. History of Cholecystectomy 3. History of Dental Surgery 4. History of Hernia Repair 5. History of Hysterectomy V45.77 Family History 1. Family history of Cancer 2. Family history of Diabetes Mellitus V18.0 3. Family history of Hypertension V17.49 4. Family history of Reported Family History Of Heart Disease Social History ?? Being A Social Drinker ?? Former Smoker V15.82 ?? Marital History - V61.03 Current Meds 1. Advair Diskus 100-50 MCG/DOSE Inhalation Aerosol Powder Breath Activated; Therapy: 09Aug2013 to 2. Amitriptyline HCl 100 MG Oral Tablet; Therapy: 09Aug2013 to 3. Aspirin Low Dose 81 MG Oral Tablet; Therapy: 09Aug2013 to 4. Depakote 500 MG Oral Tablet Delayed Release; Therapy: 09Aug2013 to 5. Lofibra 134 MG Oral Capsule; Therapy: 09Aug2013 to 6. Lortab 10-500 MG Oral Tablet; Therapy: 09Aug2013 to 7. Lovastatin 40 MG Oral Tablet; Therapy: 09Aug2013 to . Mobic 7.5 MG Oral Tablet; Therapy: 09Aug2013 to 9. Oxybutynin Chloride 5 MG Oral Tablet; Therapy: 09Aug2013 to 10. Prevacid 30 MG Oral Capsule Delayed Release; Therapy: 09Aug2013 to 11. Promethazine HCl 25 MG Oral Tablet; Therapy: 09Aug2013 to 12. Requip 1 MG Oral Tablet; Therapy: 09Aug2013 to 13. Synthroid 50 MCG Oral Tablet; Therapy: 09Aug2013 to Allergies 1. Fosamax TABS 2. Penicillins 3. Sulfa Drugs Vitals Signs [Data Includes: Current Encounter] 09Aug2013 03:05PM Systolic: 128 Diastolic: 84 BMI Calculated: 42.54 BSA Calculated: 1.89 Height: 4 ft 11 in Weight: 211 lb Physical Exam Constitutional General appearance: Normal. Cardiovascular Auscultation of heart: Normal. Carotid pulses: Normal. Peripheral vascular exam: Normal. Eyes Ophthalmoscopic examination: Normal. Mental status:. The patient's orientation, memory, attention, language and furnd of knowledge were normal. Cranial Nerves: visual acuity and visual aburto were intact, the oculomotor, trochlear and abducensnervea were intact, no trigeminal neuropathy was noted, no facial nerve palsy was noted, hearing was intact, there was normal movement of the soft palate and normal gag, shoulder shrug was intact bilaterally and there was no tongue deviation with protrusion. Sensory exam:. Light touch was intact. Pain and temperature sensation was intact. Vibration sense was intact. Proprioception was normal. Coordination was normal, including finger to nose, heal to shiin, and rapid alternating movements. Deep tendon reflexes: Biceps: right 2+, left 2+. Triceps: right 2+, left 2+. Brachioradialis: right 2+, left 2+. Patella: right 2+, left 2+. Ankle Jerk: right 2+, left 2+. Babinski reflex absent on the right, absent on the left. Musculoskeletal The gait and station were normal. Motor Strength: motor strength was normal in all muscle groups. Motor tone:. The muscle tone was normal. An intention tremor was observed on the right. A rest tremor was observed in the right upper extremity. An action tremor was observed on the right. Assessment 1. 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 Tremor 781.0 Plan 1. LevETIRAcetam 500 MG Oral Tablet; TAKE 1 TABLET TWICE DAILY; Therapy: 09Aug2013 to (Evaluate:07Mar2014); Last Rx:09Aug2013 2. EEG Sleep Deprived - 18760 Requested for: 09Aug2013 3. Follow-up visit in 3 weeks Evaluation and Treatment Follow-up Requested for: 09Aug2013 Discussion/Summary Discussion Summary Free Text Note Form: Mr. patient's Depakote dose was reduced and we will have to add Keppra to her present regimen especially since am not sure if the Depakote is not the cause for her tremor. If her seizure tendency increases on that combination she is to contact the office to further increase the dose of Keppra to 750 mg twice a day. I will get a sleep deprived EEG to look for seizure tendency and see her back in 3 weeks time at which point I will get blood levels on both medications. I discussed my assessment and my recommendations in detail with the patient. However, should there be worsening of the patient's condition, appearence of new symptoms or lack of improvement despite my recommendations, the patient is to contact the office for re-evaluation and discuss the possibility of additional diagnostic testing (e.g. imaging, electrophysiology, etc.) In case of acute worsening, the patient is to seek the attention of the closest emergency room without delay. Review of Data: Reviewed lab tests . Ordered lab tests eeg. PCP records reviewed. Referring MD records reviewed . Time Documentation: The patient and patient's family was counseled regarding instructions for management, patient and family education, impressions, risks and benefits of treatment options and importance of compliance with treatment. Total time of encounter was 55 minutes and [address] minutes was spent counseling. Dr Pennington Per your request, I saw ZAKIYA VILLA today in consultation for the assessment listedbelow. Dr Pennington Thank you very much for allowing me to participate in the care of this patient. If you have any questions, please do not hesitate to contact me. Signatures Electronically signed by : Avinash Jerez M.D.; Aug 09 2013 3:28PM (Author) documented in this encounter Miscellaneous Notes * Letter - Avinash Jerez MD - 08/09/2013 2:[address] Pennington Per your request, I saw ZAKIYA VILLA today in consultation for the assessment listedbelow. Chief Complaint 1. Seizure History of Present Illness HPI: The patient is seen today in consultation at the request of Dr. Payne My assessment and recommendations follow below and have been forwarded to the referring doctor. 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 Apparently when she was in her teens her seizures subsided for some time and then she started havingthem on a regular basis but they were controlled with Depakote 500 in the morning and 1000 in the evening. More recently however she has had breakthrough seizures almost every single day. they are short and usually consist of staring spells. Her Depakote level was reported to be high and the dose was reduced to 500 in the morning and 750 in the evening. He also has had for about 7-8 years bilateral tremor which he takes Requip. Review of Systems Constitutional: negative. Eyes: negative. ENT: negative. Cardiovascular: negative. Respiratory: negative. Gastrointestinal: negative. Genitourinary: negative. Musculoskeletal: negative. Integumentary and Breasts: negative. Neurological: as noted in HPI. Psychiatric: negative. Endocrine: negative. Hematologic and Lymphatic: negative. Past Medical History ?? History of Cancer 199.1 ?? History of Chronic Obstructive Pulmonary Disease 496 ?? History of Congestive Heart Failure 428.0 ?? 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 History of Hyperlipidemia 272.4 ?? History of Hypothyroidism 244.9 ?? History of Osteoarthritis V13.4 ?? History of Parkinson's Disease 332.0 ?? History of Restless Legs Syndrome 333.94 ?? History of Stroke Syndrome 436 Surgical History ?? History of Breast Surgery Lumpectomy ?? History of Cholecystectomy ?? History of Dental Surgery ?? History of Hernia Repair ?? History of Hysterectomy V45.77 Family History ?? Family history of Cancer ?? Family history of Diabetes Mellitus V18.0 ?? Family history of Hypertension V17.49 ?? Family history of Reported Family History Of Heart Disease Social History ?? Being A Social Drinker ?? Former Smoker V15.82 ?? Marital History - V61.03 Current Meds 1. Advair Diskus 100-50 MCG/DOSE Inhalation Aerosol Powder Breath Activated; Therapy: 09Aug2013 to 2. Amitriptyline HCl 100 MG Oral Tablet; Therapy: 09Aug2013 to 3. Aspirin Low Dose 81 MG Oral Tablet; Therapy: 09Aug2013 to 4. Depakote 500 MG Oral Tablet Delayed Release; Therapy: 09Aug2013 to 5. Lofibra 134 MG Oral Capsule; Therapy: 09Aug2013 to 6. Lortab 10-500 MG Oral Tablet; Therapy: 09Aug2013 to 7. Lovastatin 40 MG Oral Tablet; Therapy: 09Aug2013 to 8. Mobic 7.5 MG Oral Tablet; Therapy: 09Aug2013 to 9. Oxybutynin Chloride 5 MG Oral Tablet; Therapy: 09Aug2013 to 10. Prevacid 30 MG Oral Capsule Delayed Release; Therapy: 09Aug2013 to 11. Promethazine HCl 25 MG Oral Tablet; Therapy: 09Aug2013 to 12. Requip 1 MG Oral Tablet; Therapy: 09Aug2013 to 13. Synthroid 50 MCG Oral Tablet; Therapy: 09Aug2013 to Allergies 1. Fosamax TABS 2. Penicillins 3. Sulfa Drugs Vitals Signs [Data Includes: Current Encounter] Systolic: 128, Diastolic: 84, BMI Calculated: 42.54, BSA Calculated: 1.89, Height: 4 ft 11 in, Weight: 211 lb Physical Exam Constitutional General appearance: Normal. Cardiovascular Auscultation of heart: Normal. Carotid pulses: Normal. Peripheral vascular exam: Normal. Eyes Ophthalmoscopic examination: Normal. Mental status:. The patient's orientation, memory, attention, language and furnd of knowledge were normal. Cranial Nerves: visual acuity and visual aburto were intact, the oculomotor, trochlear and abducensnervea were intact, no trigeminal neuropathy was noted, no facial nerve palsy was noted, hearing was intact, there was normal movement of the soft palate and normal gag, shoulder shrug was intact bilaterally and there was no tongue deviation with protrusion. Sensory exam:. Light touch was intact. Pain and temperature sensation was intact. Vibration sense was intact. Proprioception was normal. Coordination was normal, including finger to nose, heal to shiin, and rapid alternating movements. Deep tendon reflexes: Biceps: right 2+, left 2+. Triceps: right 2+, left 2+. Brachioradialis: right 2+, left 2+. Patella: right 2+, left 2+. Ankle Jerk: right 2+, left 2+. Babinski reflex absent on the right, absent on the left. Musculoskeletal The gait and station were normal. Motor Strength: motor strength was normal in all muscle groups. Motor tone:. The muscle tone was normal. An intention tremor was observed on the right. A rest tremor was observed in the right upper extremity. An action tremor was observed on the right. Assessment 1. 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 Tremor 781.0 Plan Epilepsy And Recurrent Seizures (345.90) ?? LevETIRAcetam 500 MG Oral Tablet; TAKE 1 TABLET TWICE DAILY; Therapy: 09Aug2013 to (Evaluate:07Mar2014); Last Rx:09Aug2013 Tremor (781.0) ?? EEG Sleep Deprived - 22450 Requested for: 09Aug2013 ?? Follow-up visit in 3 weeks Evaluation and Treatment Follow-up Requested for: 09Aug2013 Discussion/Summary Mr. dean's Depakote dose was reduced and we will have to add Keppra to her present regimen especially since am not sure if the Depakote is not the cause for her tremor. If her seizure tendency increases on that combination she is to contact the office to further increase the dose of Keppra to 750 mg twice a day. I will get a sleep deprived EEG to look for seizure tendency and see her back in 3 weeks time at which point I will get blood levels on both medications. I discussed my assessment and my recommendations in detail with the patient. However, should there be worsening of the patient's condition, appearence of new symptoms or lack of improvement despite my recommendations, the patient is to contact the office for re-evaluation and discuss the possibility of additional diagnostic testing (e.g. imaging, electrophysiology, etc.) In case of acute worsening, the patient is to seek the attention of the closest emergency room without delay. Reviewed lab tests . Ordered lab tests eeg. PCP records reviewed. Referring MD records reviewed . The patient and patient's family was counseled regarding instructions for management, patient and family education, impressions, risks and benefits of treatment options and importance of compliance with treatment. Total time of encounter was 55 minutes and 35 minutes was spent counseling. Dr Pennington Thank you very much for allowing me to participate in the care of this patient. If you have any questions, please do not hesitate to contact me. Signatures Electronically signed by : Avinash Jerez M.D.; Aug 09 2013 3:28PM (Author) documented in this encounter Plan of Treatment Upcoming Encounters Date Type Department Care Team (Late st Contact Info) Description 10/05/2024 12:30 PM EST Office Visit [facility] [address] [phone] Kailey Porras APRN [address] [place] [address] 10/05/2024 12:30 PM EST Clinical Support No Requirements [facility] [address] [address] documented as of this encounter Visit Diagnoses Not on filedocumented in this encounter
--- OUTSIDE RECORDS SUMMARY | 2024-09-27 08:55 | XMS_ITS | Encounter Summary ---
Author Organization [employer] Address [address] [place] [id number] Care Team Providers Care Edi Analyst Name Role Phone Marly Kumar SALES AND SERVICE AGENT Primary Care Provider [phone] Encounter Details Date Type Department Care Team (Late st Contact Info) Description 07/27/2020 Transcribed Document [facility] [place] [address] [place] [address] ProviderMiya MD [address] [id number] Social History Tobacco Use Types Packs/Day Years Used Date Smoking Tobacco: Never Assessed Comments Unknown Sex and Gender Information Value Date Recorded Sex Assigned at Female 05/01/2022 3:59 PM CDT Legal Sex Female 1:54 PM CDT Gender Identity Female 05/01/2022 3:59 PM CDT Sexual Orientation Not on file documented as of this encounter Miscellaneous Notes * Cerner Conversion Note - Miya ProviderMD - 07/27/2020 10:23 AM CDT Patient: RENNY VELAZQUEZ Age: 64 years Sex: Female : 1955 Associated Diagnoses: None Author: YADI SIDDIQI MD-LALITO Subjective No clinical event since admission. ROS: No complaints. Health Status Allergies: Allergic Reactions (Selected) Severity Not Documented Alendronate- Raxh and raxh. Penicillin- Hives and hives. Sulfa drugs- Nausea and nausea., Allergies (3) Active Reaction alendronate raxh penicillin hives sulfa drugs nausea Current medications: (Selected) Inpatient Medications Ordered Aricept: 10 mg, Oral, Daily Depakote: 1,000 mg, Oral, BID Elavil: 100 mg, Oral, At Bedtime Fish Oil: 1,000 mg, Oral, Daily Flonase: 1 [place], Nostrils Both, Daily Florastor: 250 mg, Oral, Daily Glucophage: 500 mg, Oral, Daily LORazepam: 2 mg, IV Push, Q8H, PRN: Seizures Lasix: 40 mg, Oral, Daily Lasix: 80 mg, Oral, Daily Lipitor: 40 mg, Oral, Daily TriCor 145 mg oral tablet: 145 mg, 1 Tab, Oral, Daily Trileptal: 300 mg, Oral, BID Zofran: 4 mg, IV Push, Q6H, PRN: Nausea/Vomiting aspirin: 81 mg, Oral, Daily carvedilol: 6.25 mg, Oral, BID ibuprofen: 600 mg, Oral, Q6H, PRN: Headache/Pain levothyroxine: 150 mcg, Oral, Daily loratadine: 10 mg, Oral, Daily niacin: 1,000 mg, Oral, At Bedtime pantoprazole: 40 mg, Oral, Daily potassium chloride 20 mEq oral tablet, extended release: 20 mEq, 1 Tab, Oral, BID Documented Medications Documented Aricept 10 mg oral tablet: 1 Tab, Oral, Once a day (at bedtime), 30 Tab, 0 Refill(s) Depakote 500 mg oral delayed release tablet: 2 Tab, Oral, BID, 270 Tab, 0 Refill(s) Elavil: 100 mg, Oral, At Bedtime, 0 Refill(s) Fish Oil 1000 mg oral capsule: 1 Cap, Oral, Daily, 60 Cap, 0 Refill(s) Flonase: 1 [place], Nostrils Both, Daily, 0 Refill(s) Florastor: 250 mg, Oral, Daily, 0 Refill(s) Glucophage 500 mg oral tablet: 1 Tab, Oral, Daily, 60 Tab, 0 Refill(s) Lasix 40 mg oral tablet: 1 Tab, Oral, See Comment, every afternoon at 1pm, 0 Refill(s) Lasix: 80 mg, Oral, Daily, 0 Refill(s) Lipitor 40 mg oral tablet: 1 Tab, Oral, Daily, 0 Refill(s) Niaspan ER 1000 mg oral tablet, extended release: 1 Tab, Oral, At Bedtime, 0 Refill(s) PriLOSEC: 40 mg, Oral, Daily, 0 Refill(s) TriCor 145 mg oral tablet: 1 Tab, Oral, Daily, 30 Tab, 0 Refill(s) Trileptal 300 mg oral tablet: 1 Tab, Oral, BID, 120 Tab, 0 Refill(s) ZyrTEC: 10 mg, Oral, Daily, 0 Refill(s) aspirin 81 mg oral tablet: 1 Tab, Oral, Daily, 30 Tab, 0 Refill(s) carvedilol 6.25 mg oral tablet: 1 Tab, Oral, BID, 60 Tab, 0 Refill(s) levothyroxine 150 mcg (0.15 mg) oral tablet: 1 Tab, Oral, Daily, 60 Tab, 0 Refill(s) potassium chloride 20 mEq oral tablet, extended release: 1 Tab, Oral, BID, 0 Refill(s), Home Medications (19) Active Aricept 10 mg oral tablet 10 mg = 1 Tab, Oral, Once a day (at bedtime) aspirin 81 mg oral tablet 1 Tab, Oral, Daily carvedilol 6.25 mg oral tablet 6.25 mg = 1 Tab, Oral, BID Depakote 500 mg oral delayed release tablet 1,000 mg = 2 Tab, Oral, BID Elavil 100 mg, Oral, At Bedtime Fish Oil 1000 mg oral capsule 1,000 mg = 1 Cap, Oral, Daily Flonase 1 [place], Nostrils Both, Daily Florastor 250 mg, Oral, Daily Glucophage 500 mg oral tablet 500 mg = 1 Tab, Oral, Daily Lasix 80 mg, Oral, Daily Lasix 40 mg oral tablet 40 mg = 1 Tab, Oral, See Comment levothyroxine 150 mcg (0.15 mg) oral tablet 150 mcg = 1 Tab, Oral, Daily Lipitor 40 mg oral tablet 40 mg = 1 Tab, Oral, Daily Niaspan ER 1000 mg oral tablet, extended release 1,000 mg = 1 Tab, Oral, At Bedtime potassium chloride 20 mEq oral tablet, extended release 20 mEq = 1 Tab, Oral, BID PriLOSEC 40 mg, Oral, Daily TriCor 145 mg oral tablet 145 mg = 1 Tab, Oral, Daily Trileptal 300 mg oral tablet 300 mg = 1 Tab, Oral, BID ZyrTEC 10 mg, Oral, Daily , Medications (22) Active Scheduled: (19) amitriptyline 50 mg tab 100 mg 2 Tab, Oral, At Bedtime aspirin 81 mg chew tab 81 mg 1 Tab, Oral, Daily atorvastatin 40 mg tab 40 mg 1 Tab, Oral, Daily carvedilol 6.25 mg tab 6.25 mg 1 Tab, Oral, BID divalproex 500 mg EC tab 1,000 mg 2 Tab, Oral, BID donepezil 10 mg tab 10 mg 1 Tab, Oral, Daily fenofibrate 145 mg tab 145 mg 1 Tab, Oral, Daily fluticasone 0.05% nasal spray 1 [place], Nostrils Both, Daily furosemide 40 mg tab 40 mg 1 Tab, Oral, Daily furosemide 80 mg tab 80 mg 1 Tab, Oral, Daily levothyroxine 150 mcg (0.15 mg) tab 150 mcg 1 Tab, Oral, Daily loratadine 10 mg tab 10 mg 1 Tab, Oral, Daily metFORMIN 500 mg tab 500 mg 1 Tab, Oral, Daily niacin SR 500 mg tab 1,000 mg 2 Tab, Oral, At Bedtime omega-3 fish oil 1,000 mg cap 1,000 mg 1 Cap, Oral, Daily OXcarbazepine 300 mg tab 300 mg 1 Tab, Oral, BID pantoprazole EC 40 mg tab 40 mg 1 Tab, Oral, Daily potassium chloride CR 20 mEq tab 20 mEq 1 Tab, Oral, BID saccharomyces boulardii 250 mg cap 250 mg 1 Cap, Oral, Daily Continuous: (0) PRN: (3) ibuprofen 600 mg tab 600 mg 1 Tab, Oral, Q6H LORazepam 2 mg/mL inj 2 mg 1 mL, IV Push, Q8H ondansetron 4 mg/2 mL inj 4 mg 2 mL, IV Push, Q6H Problem list: Medical At risk for sleep apnea / IMO [id number] / Confirmed, Active Problems (17) Angina Arthritis At risk for sleep apnea Back pain Cardiomyopathy COPD Coronary artery disease GERD - Gastro-esophageal reflux disease H/O: CVA High blood pressure Hyperlipidemia Myocardial infarction Restless legs syndrome Seizure Sleep apnea Stented coronary artery Thyroid disease Objective VS/Measurements Vital Signs/Vital Measures 07/26/2020 12:00 EDT Systolic Blood Pressure 153 mmHg HI Diastolic Blood Pressure 81 mmHg Temperature Source Oral Temperature Mode Fahrenheit Temperature, Fahrenheit 98.3 Deg F Clinical Temperature, C 36.8 Deg C Heart Rate, Apical 65 bpm Respiratory Rate 18 Breaths/Min , Measurements from flowsheet : Measurements 07/26/2020 16:24 EDT Height Source Stated Height Entry Format [place] Height/Length, SOMALI (ft) 4 ft Height/Length SOMALI 11 Inch CLINICALHEIGHT 149.86 cm Type of Weight Measurement. [place] Weight, est lb 245 lb Estimated Clinical Dosing Weight 111.36 kg [place] Body Weight 43 kg Weight Source Stated 07/26/2020 15:40 EDT Height Source Not Done: Completed and previously documented (Not Done) Height Entry Format Not Done: Completed and previously documented (Not Done) Weight Source Not Done: Completed and previously documented (Not Done) , Vitals Signs (last 24 hrs) Last Charted Minimum Maximum Temp 98.3 (JUL 26 12:00) 98.3 (JUL 26 12:00) 98.3 (JUL 26 12:00) Apical HR 65 (JUL 26 12:00) 65 (JUL 26 12:00) 65 (JUL 26 12:00) Resp Rate 18 (JUL 26 12:00) 18 (JUL 26 12:00) 18 (JUL 26 12:00) SBP H 153 (JUL 26 12:00) H 153 [place] H 153 [place] [place] DBP 81 [place] 81 [place] [place]) 81 ([facility] [place] General: Alert and oriented. Eye: Pupils are equal, round and reactive to light. Neurologic: Normal motor function, No focal deficits, Cranial Nerves II-XII are grossly intact. Results Review Continuous EEG: bilateral temporal slowing Impression and Plan Discussed findings with patient. 1. Continue video EEG monitoring. 2. DVT prophylaxis Electronically signed by [facility] Conversion Sql Analyst Cerner at 02/19/2023 6:41 PM CDT documented in this encounter Plan of Treatment Not on file documented as of this encounter Visit Diagnoses Not on filedocumented in this encounter Care Teams Edi Analyst Relationship Specialty Start Date End Date Marly Kumar NP [address] [place] [address] PCP - General Nurse Practitioner 09/22/24 documented as of this encounter
--- OUTSIDE RECORDS SUMMARY | 2024-09-27 08:55 | XMS_ITS | Encounter Summary ---
Author Organization [facility] Address [address] [place] [address] Care Team Providers Care Corn Husker Machine Operator Name Role Phone Jass Barrios Marlee SHAKIRA Primary Care Provider Reason for Visit * Reason Onset Date Comments remote monitoring 06/07/2024 Encounter Details Date Type Department Care Team (Late st Contact Info) Description 06/07/[address] [facility] [address] [place] [phone] Dinorah Christiansen MD [address] [place] [address] remote monitoring Social History Tobacco Use Types Packs/Day Years Used Date Smoking Tobacco: Former Cigarettes Passive Smoke Exposure: Past Smokeless Tobacco: Never Alcohol Use Standard Drinks/Week Comments Yes 0 (1 standard drink = 0.6 oz pur e alcohol) social Abuse Screen Answer Date Recorded Unsafe at Home or Work/School Not on file Feels Threatened by Someone? Not on file 07/2023 Does Anyone Keep You from Co ntacting Others or Doint Things Outside the Home? Not on file 08/10/2023 Physical Sign of Abuse Present Not on file 1 Housing Stability Answer Date Recorded Current Living Arrangements Not on file 07/2023 Potentially Unsafe Housing Conditions Not on kymberly e 08/10/2023 Family and Community Support Answer Jai e Recorded Help with Day-to-Day Activities Not on file 08/10/2023 Lonely or Isolated Not on file 08/10/2023 Employment Answer Date Recorded Do you want help finding or keeping work or a jarett b? Not on file 08/10/2023 Disabilities Answer Date Recorded Concentrating, Remembering, or Making Decisions Difficulty Not on file 08/10/2023 Doing Errands Independently Difficulty Not on fi le 08/10/2023 Education Answer Date Recorded Help with school or training? Not on file Preferred Language Not on file 08/10/2023 Comments Unknown Sex and Gender Information Value Date Recorded Sex Assigned at Not on file Legal Sex Female 10:34 AM EDT Gender Identity Not on file Sexual Orientation Not on file documented as of this encounter Miscellaneous Notes * Telephone Encounter - Jessy Ivan RN - 06/07/2024 2:59 PM EDT Requested release of remote monitoring from [facility] . She is pending release from them so we can assume remote monitoring of her [employer] [place] device. documented in this encounter Plan of Treatment Upcoming Encounters Date Type Department Care Team (Late st Contact Info) Description 10/05/2024 12:30 PM EST Office Visit [facility] [address] [place] [address] [place] [phone] Kailey Porras APRN [address] [place] [address] 10/05/2024 12:30 PM EST Clinical Support No Requirements [facility] [place] [address] documented as of this encounter Visit Diagnoses Not on filedocumented in this encounter Care Teams Corn Husker Machine Operator Relationship Specialty Start Date End Date Jass Barrios APRN [address] [place] [id number] PCP - General Nurse Practitioner 05/24/24 07/05/24 documented as of this encounter
--- OUTSIDE RECORDS SUMMARY | 2024-09-27 08:55 | XMS_ITS | Encounter Summary ---
Author Organization [employer] Address [address] [place] [address] Care Team Providers Care Scale Shooter Name Role Phone Marly Kumar EXECUTIVE RECRUITER Primary Care Provider [phone] Encounter Details Date Type Department Care Team (Late st Contact Info) Description 07/28/2020 Transcribed Document [facility] [place] [address] [place] [address] ProviderMiya MD [address] [place] [id number] Social History Tobacco Use Types Packs/Day Years Used Date Smoking Tobacco: Never Assessed Comments Unknown Sex and Gender Information Value Date Recorded Sex Assigned at Female 05/01/2022 3:59 PM CDT Legal Sex Female 1:54 PM CDT Gender Identity Female 05/01/2022 3:59 PM CDT Sexual Orientation Not on file documented as of this encounter Miscellaneous Notes * Cerner Conversion Note - Miya ProviderMD - 07/28/2020 10:18 AM CDT DATE OF ADMISSION: 07/26/2020 DATE OF DISCHARGE: 07/28/2020 FINAL DIAGNOSIS: Intractable localization-related epilepsy. HISTORY: This is a 64-year-old woman with long history of seizures. She has had intense episodes characterized by loss of consciousness with generalized stiffening and jerking with no recent recurrence. She has had milder episodes where she stares and becomes unresponsive. A few months ago, there was an addition of levetiracetam because of a suspicion of nocturnal seizures. PAST MEDICAL HISTORY: 1. Hypertension. 2. Head trauma. 3. Osteoporosis. HOSPITAL COURSE: The patient was admitted following tapering and discontinuation of levetiracetam. She had no clinical event during hospitalization. Continuous EEG recordings showed no electrographic ictal discharge. DISPOSITION: I discussed the results of monitoring with the patient. I told her that this study showed no evidence for unrecognized seizures. I recommended therefore making no additional change in her regimen. PHYSICAL EXAMINATION: VITAL SIGNS: On the day of discharge, blood pressure 118/57, heart rate 80 per minute and regular. HEENT: Pupils equal and reactive. LUNGS: Clear. HEART: Regular rate and rhythm. Normal peripheral pulses. NEUROLOGIC: She is alert and well oriented. Normal language functions. Normal cranial nerves. Normal motor exam. She has bilateral hand tremors. DISCHARGE INSTRUCTIONS: 1. No driving. 2. Atorvastatin 40 mg daily. 3. Zyrtec 10 mg daily. 4. Aricept 10 mg daily. 5. Tricor 145 mg daily. 6. Flonase 1 spray in both nostrils daily. 7. Metformin 500 mg daily. 8. Niacin 1000 mg daily. 9. Fish oil 1000 mg daily. 10. Florastor 250 mg daily. 11. Oxcarbazepine 300 mg twice daily. 12. Amitriptyline 100 mg nightly. 13. Aspirin 81 mg daily. 14. Carvedilol 6.25 mg twice daily. 15. Divalproex 1000 mg twice daily. 16. Furosemide 120 mg daily. 17. Levothyroxine 150 mcg daily. 18. Omeprazole 40 mg daily. 19. Potassium chloride 20 mEq twice daily. 20. Follow up with Dr. Duong in 6 months. /[id number] MD RAPHAEL Esquivel/JOHNNIE / RAPHAEL / MODL /[id number] documented in this encounter Plan of Treatment Not on file documented as of this encounter Visit Diagnoses Not on filedocumented in this encounter Care Teams Scale Shooter Relationship Specialty Start Date End Date Marly Kumar NP [address] [place] [address] PCP - General Nurse Practitioner 09/22/24 documented as of this encounter
--- OUTSIDE RECORDS SUMMARY | 2024-09-27 08:55 | XMS_ITS | Encounter Summary ---
Author Organization [facility] Address [address] [place] [address] Care Team Providers Care Engineering Document Control Clerk Name Role Phone JoséMarly frey APRN Primary Care Provider [phone] Reason for Visit * Diagnostic Imaging (Routine) - Closed Specialty Diagnoses / Procedures Referred By Contac t Referred To Contact Diagnoses PVD (peripheral vascular disease) with claudication Procedures Duplex Lower Extremity Art / Grafts - Bilateral CAR Dinorah Christiansen MD [address] [place] [address] Phone: tel: fax: [facility] [place] [address] [address] [place] [address] Phone: tel: fax: Referral ID Status Reason Start Date Expiration Date Visits Re quested Visits Authorized [id number] Closed 06/06/2024 06/06/2025 1 1 Encounter Details Date Type Department Care Team (Latest Contact Info) Description 07/25/2024 2:30 PM EDT Ancillary Procedure [facility] [place] [address] PVD (peripheral vascular disease) with claudication Social History Tobacco Use Types Packs/Day Years [...] Sign Reading Time Taken Comments Blood Pressure 126/82 07/25/2024 2:17 PM EDT Pulse - - Temperature - - Respiratory Rate - - Oxygen Saturation - - Inhaled Oxygen Concentration - - Weight 69.4 kg (153 lb) 07/25/2024 2:17 PM EDT Height 149.9 cm (4' 11 ) 07/25/2024 2:17 PM EDT Body Mass Index 30.9 07/25/2024 2:17 PM EDT documented in this encounter Plan of Treatment Upcoming Encounters Date Type Department Care Team (Late st Contact Info) Description 10/05/2024 12:30 PM EST Office Visit [facility] [address] [place] [address] Kailey Porras APRN [address] [place] [address] 10/05/2024 12:30 PM EST Clinical Support No Requirements [facility] [address] [place] [address] documented as of this encounter Procedures Procedure Name Priority Date/Time Associated Diagnosis Comments DUPLEX LOWER EXTREMITY ART/GRAFTS BILATERAL CAR - COR/YARELY/MAD Routine 07/25/2024 2:59 PM EDT PVD (peripheral vascular disease) with claudication documented in this encounter Results * DUPLEX LOWER EXTREMITY ART/GRAFTS BILATERAL CAR - COR/YARELY/MAD (07/25/2024 2:59 PM EDT) Right Brachial Pressure 122 mmHg Left Brachial Pressure 126 mmHg RIGHT E [employer] PRESSURE 160 mmHg LEFT E [employer] PRESSURE 150 mmHg SFA Prox PSV-Right -105.0 cm/s SFA Mid PSV-Right -98.0 cm/s SFA Distal PSV-Right -91.7 cm/s Popiteal A Prox PSV-Right 85.8 cm/s Ant Tibial A Prox PSV-Right 67.9 cm/s Ant Tibial A Distal PSV-Right 67.9 cm/s SFA Prox PSV-Left -101.0 cm/s SFA Mid PSV-Left -80.5 cm/s SFA Distal PSV-Left -82.4 cm/s Popiteal A Prox PSV-Left 74.2 cm/s Right groin DIRECTOR OF CASEWORK DEPARTMENT sys 259.0 cm/sec Left groin DIRECTOR OF CASEWORK DEPARTMENT sys 113.0 cm/sec DIRECTOR OF CASEWORK DEPARTMENT Distal PSV-Right 259.00 cm/s DFA Prox PSV-Right 84.20 cm/s Rt. Tibeoperoneal PSV 89.50 cm/s E [employer] Distal PSV-Right 112.00 cm/s RIGHT ANDREA RATIO 1.31 LEFT ANDREA RATIO 1.19 DIRECTOR OF CASEWORK DEPARTMENT Distal PSV-Left 113.00 cm/s DFA Prox PSV-Left 89.50 cm/s Ant Tibial A Mid PSV-Left 51.80 cm/s Lt. Tibperoneal PSV 80.70 cm/s E [employer] Distal PSV-Left 82.40 cm/s Anatomical Region Laterality Modality Ultrasound Narrative 07/25/2024 5:45 PM EDT ?Right lower extremity arteries are patent and without significant stenosis. Left lower extremity arteries are patent and without significant stenosis. ?The left proximal deep femoral artery demonstrates no significant stenosis. ?Left lower extremity arteries are patent and without significant stenosis. Right Lower Arterial Findings The right distal common femoral artery exhibits multiphasic, high resistive arterial flow. The right proximal deep femoral artery exhibits multiphasic, high resistive arterial flow. The right proximal superficial femoral artery exhibits multiphasic, high resistive arterial flow. The right mid superficial femoral artery exhibits multiphasic, high resistive arterial flow. The right distal superficial femoral artery exhibits multiphasic, high resistive arterial flow. The right proximal popliteal artery exhibits multiphasic, high resistive arterial flow. The right distal anterior tibial artery exhibits multiphasic, high resistive arterial flow. The right tibial peroneal trunk exhibits multiphasic, high resistive arterial flow. The right distal posterior tibial artery exhibits multiphasic, high resistive arterial flow. Lower Arterial Conclusions Right Conclusion: All right sided vessels appear normal. Left Conclusion: The left proximal deep femoral artery demonstrates no significant stenosis. All left sided vessels appear normal. Left Lower Arterial Findings The left distal common femoral artery exhibits multiphasic, high resistive arterial flow. The left proximal deep femoral artery exhibits multiphasic, high resistive arterial flow. The left proximal superficial femoral artery exhibits multiphasic, high resistive arterial flow. The left mid superficial femoral artery exhibits multiphasic, high resistive arterial flow. The left distal superficial femoral artery exhibits multiphasic, high resistive arterial flow. The left proximal popliteal artery exhibits multiphasic, high resistive arterial flow. The left mid anterior tibial artery exhibits multiphasic, high resistive arterial flow. The left tibial peroneal trunk exhibits multiphasic, high resistive arterial flow. The left distal posterior tibial artery exhibits multiphasic, high resistive arterial flow. Additional Study Details The study is technically adequate for diagnosis. us Dinorah Christiansen MD CV VASCULAR ORDERABLES Final Result documented in this encounter Visit Diagnoses Diagnosis PVD (peripheral vascular disease) with claudication Unspecified peripheral vascular disease documented in this encounter Care Teams Engineering Document Control Clerk Relationship Specialty Start Date End Date JoséMarly APRN [address] [place] [address] PCP - General Family Medicine 9/4/24 documented as of this encounter
--- OUTSIDE RECORDS SUMMARY | 2024-09-27 08:55 | XMS_ITS | Encounter Summary ---
Author Organization [facility] Address [address] [place] [address] Care Team Providers Care Boilermaker Central Steam Plant Name Role Phone Unavailable Primary Care Provider Unavailabl e Encounter Details Date Type Department Care Team (Late st Contact Info) Description 12/27/2014 Office Visit Converted [facility] [address] [place] [address] [place] [id number] Avinash Jerez MD Social History Tobacco Use Types Packs/Day Years Used Date Smoking Tobacco: Never Assessed Comments Unknown Sex and Gender Information Value Date Recorded Sex Assigned at Not on file Legal Sex Female 10:34 AM EDT Gender Identity Not on file Sexual Orientation Not on file documented as of this encounter Miscellaneous Notes * Letter - Avinash Jerez MD - 12/27/2014 10:30 AM EST Dear ZAKIYA VILLA, Thank you for choosing [facility]. Your health is of our utmost concern which is why we want to inform you that you recently missed your appointment on 12/27/2014 at 10:30AM with Avinash Jerez. We understand unexpected circumstances arise; however, anytime you miss your appointment we are unable to provide you with appropriate care. In addition, each appointment missed could have been used to provide care for others. We ask that you call at least 24 hours in advance to cancel or reschedule an appointment in order to avoid a possible fee for a no-show. We would like to take this opportunity to remind you of our policy stating patients who miss three or more appointments without cancelling or rescheduling 24 hours in advance of the appointment may be subject to dismissal from the practice. To reschedule your appointment, please contact the number listed above. We value you as a patient and thank you for allowing [facility] to provide care for all of your healthcare needs. Thank you. Electronically signed by : Jennie Briscoe, ; Dec 27 2014 10:51AM EST (Author) documented in this encounter Plan of Treatment Upcoming Encounters Date Type Department Care Team (Late st Contact Info) Description 10/05/2024 12:30 PM EST Office Visit [facility] [address] [place] [address] Kailey Porras APRN [address] [facility] [place] [address] 10/05/2024 12:30 PM EST Clinical Support No Requirements [facility] [address] [place] [address] documented as of this encounter Visit Diagnoses Not on filedocumented in this encounter
--- OUTSIDE RECORDS SUMMARY | 2024-09-27 08:55 | XMS_ITS | Encounter Summary ---
Author Organization [facility] [employer] Address [address] [place] [address] Care Team Providers Care Brood Station Manager Name Role Phone Marly Kumar DRAWING IN MACHINE TENDER HELPER Primary Care Provider [phone] Encounter Details Date Type Department Care Team (Late st Contact Info) Description 07/28/2020 Transcribed Document [facility] [place] Family Medicine [address] [place] [address] ProviderMiya MD [address] [place] [id number] Social History Tobacco Use Types Packs/Day Years [...] Conversion Note - Miya ProviderMD - 07/28/2020 9:27 AM CDT DATE OF SERVICE: 07/27/2020 REPORT TYPE: EEG REFERRING PHYSICIAN: Rad Duong MD REPORT TITLE: Video Electroencephalogram Report STUDY DURATION: One day. 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 EEG VIDEO MONITORING METHODOLOGY: Time-locked EEG-video monitoring was performed using the 32-channel InHiro monitoring system. The seizure detection computer was [...] AND EEG ANALYSIS: There was no event reported during the period of monitoring. TIME SAMPLES: The recording was reviewed. During wakefulness, 9 to 9.5 Hz activity is seen posteriorly, intermixed with lower amplitude fast activity in the beta range with a wider distribution. 4 to 5 Hz theta waves and less frequent 2 to 3 Hz delta waves are seen at F7-T7-P7 and F8-T8-P8, at times appearing more prominent in the latter. During sleep, well-formed sleep spindles were seen in both hemispheres. SPIKE DETECTION: The spike detection program was activated during the period of monitoring and revealed no abnormal paroxysmal activity. EEG DIAGNOSES: This is an abnormal video EEG study because of focal slow wave activity seen at F7-T7-P7 and F8-T8-P8, at times appearing more prominent in the latter. CLINICAL INTERPRETATION: There was no clinical event reported during the period of monitoring. Continuous EEG recording showed no electrographic ictal discharge or other epileptiform abnormality. The study therefore provides no definitive evidence to support the diagnosis of epilepsy. However, that diagnosis cannot be excluded, particularly in the absence of a recorded event. EEG recordings showed focal slow-wave activity independently in the temporal electrodes in both hemispheres, at times appearing more prominent on the right. This finding is consistent with focal cerebral dysfunction in the temporal regions, which may be more prominent on the right. /[id number] Rad Duong MD TAF/AQ / TAF / MODL /[id number] documented in this encounter Plan of Treatment Not on file documented as of this encounter Visit Diagnoses Not on filedocumented in this encounter Care Teams Brood Station Manager Relationship Specialty Start Date End Date Marly Kumar, DUNG [address] [place] [address] PCP - General Nurse Practitioner 09/22/24 documented as of this encounter
--- OUTSIDE RECORDS SUMMARY | 2024-09-27 08:55 | XMS_ITS | Encounter Summary ---
Author Organization [facility] [employer] Address [address] [place] [address] Care Team Providers Care Newspaper Reporter Name Role Phone Marly Kumar MASTER BLACK BELT Primary Care Provider [phone] Encounter Details Date Type Department Care Team (Late st Contact Info) Description 07/27/2020 Transcribed Document [facility] [place] [address] [place] [address] ProviderMiya MD [address] [place] [address] Social History Tobacco Use Types Packs/Day Years [...] Conversion Note - Miya ProviderMD - 07/27/2020 2:25 PM CDT On Going Discharge Planning Entered On: 07/27/2020 14:25 EDT Performed On: 07/27/2020 14:25 EDT by EDISON FONTANEZ, RN-Software Support TechnicianSulphate Tester Progress Note Discharge Arrangements : Patient Post-Acute Information Patient Name: RENNY VILLA Gender: Female : [birth year] Age: 64 Years No Post-Acute Placement(s) Listed No Post-Acute Service(s) Listed No [place] Referral(s) Listed Barriers to Discharge Identified : Clinical Condition of Patient Barriers to Discharge Unresolved : Clinical Condition of Patient Designation of Choice Signed : No Patient Offered Choice/Affiliations Explained : No Were Referrals Sent to Post Acute Providers : Yes Does the Patient have a Floor to SNF Benefit? : No Is the Patient Meeting Medical Necessity : Yes Physician Agreeable to Move Forward with D/C Plan? : No Did you Attend Multidisciplinary Rounds? : No EDISON FONTANEZ, RN-Software Support Technician - 07/27/2020 14:25 EDT Narrative Progress Note Narrative Progress Note : Continues on EEG monitoring. Updates faxed to Justin Perkins. Historical Progress Note : On continuous EEG monitoring. EDISON FONTANEZ, RN-Software Support Technician - 07/26/20 16:04:13 EDISON FONTANEZ RN-Software Support Technician - 07/27/2020 14:25 EDT documented in this encounter Plan of Treatment Not on file documented as of this encounter Visit Diagnoses Not on filedocumented in this encounter Care Teams Newspaper Reporter Relationship Specialty Start Date End Date Marly Kumar NP [address] [place] [address] PCP - General Nurse Practitioner 09/22/24 documented as of this encounter
--- OUTSIDE RECORDS SUMMARY | 2024-09-27 08:55 | XMS_ITS | Encounter Summary ---
Author Organization [facility] Address [address] [place] [address] Care Team Providers Care Supervising Broker Name Role Phone Jass Barrios SHAKIRA Primary Care Provider Encounter Details Date Type Department Care Team (Late st Contact Info) Description 05/24/2024 5:00 AM EDT Outside Facility Service [facility] [address] [place] [address] Dinorah Christiansen MD [address] [place] [address] Social History Tobacco Use Types Packs/Day Years Used Date Smoking Tobacco: Never Assessed Abuse Screen Answer Date Recorded Unsafe at [...] as of this encounter Plan of Treatment Upcoming Encounters Date Type Department Care Team (Late st Contact Info) Description 10/05/2024 12:30 PM EST Office Visit [facility] [address] [place] [address] Kailey Porras, SHAKIRA [address] [place] [address] 10/05/2024 12:30 PM EST Clinical Support No Requirements [facility] [address] [facility] [place] [address] documented as of this encounter Visit Diagnoses Not on filedocumented in this encounter Care Teams Supervising Broker Relationship Specialty Start Date End Date Jass Barrios, JEWELRY CONSULTANT [address] [place] [address] PCP - General Nurse Practitioner 05/24/24 07/05/24 documented as of this encounter
--- OUTSIDE RECORDS SUMMARY | 2024-09-27 08:55 | XMS_ITS | Encounter Summary ---
Author Organization [facility] Address [address] [place] [address] Care Team Providers Care Electrical Engineer Name Role Phone Marly Kumar Kaity ROSENBERG Primary Care Provider [phone] Reason for Visit * Reason Comments Coronary Artery Disease [facility] Follow Up Lo w BP Leg Swelling Encounter Details Date Type Department Care Team (Late st Contact Info) Description 07/06/2024 10:00 AM EDT Office Visit [facility] [address] [place] [address] Kailey Porras APRN [address] [place], [place] [id number] Hospital discharge follow-up; Hypotension due to drugs; Localized edema Social History Tobacco Use Types Packs/Day Years Used Date Smoking Tobacco: Former Cigarettes Passive Smoke Exposure: Past Smokeless Tobacco: Never Tobacco Cessation:Counseling Given: Yes Alcohol Use Standard Drinks/Week Comments Yes 0 [...] Sign Reading Time Taken Comments Blood Pressure 110/60 07/06/2024 9:57 AM EDT Pulse 73 07/06/2024 9:57 AM EDT Temperature - - Respiratory Rate - - Oxygen Saturation 99% 07/06/2024 9:57 AM EDT Inhaled Oxygen Concentration - - Weight 73.5 kg (162 lb) 07/06/2024 9:57 AM EDT Height 149.9 cm (4' 11 ) 07/06/2024 9:57 AM EDT Body Mass Index 32.72 07/06/2024 9:57 AM EDT documented in this encounter Progress Notes * Kailey Porras APRN - 07/06/2024 11:01 AM EDTAssociated Problem(s): Localized edema Will restart Lasix at a very low dose to help prevent hypotension or kidney injury. Will titrate upslowly and cautiously. Today will restart Lasix at 20 mg daily and potassium at 10 mEq daily. May need to recheck labs at follow-up. Patient has arterial duplex and follow-up already scheduled with Dr. Christiansen on 07/25/2024. * Kailey Porras APRN - 07/06/2024 11:01 AM EDTAssociated Problem(s): Hypotension due to drugs Very labile blood pressure. Per Dr. Christiansen restart midodrine 2.5 mg twice daily to help compensate for restarting Lasix. * Kailey Porras APRN - 07/06/2024 11:01 AM EDTAssociated Problem(s): Hospital discharge follow-up [facility] 06/30/2024 ER records reviewed. Patient was dehydrated and had acute renal failure. All diuretics and several blood pressure medications were stopped including her carvedilol. She has an appointment with Dr. Christiansen on 07/25/2024. Based on how patient's blood pressure is doing Dr. Christiansen may want to restart beta-hernando. * Kailey Porras APRN - 07/06/2024 10:00 AM EDT Images from the original note were not included. [facility] Provider Note Date: 07/06/2024 Name: Mu Perkins : 1955 PCP: Marly Kumar APRN Chief Complaint Patient presents with Coronary Artery Disease [facility] Follow Up Low BP Leg Swelling Subjective History of Present Illness Mu Perkins is a 68 y.o. female who presents today for ER follow-up for labile blood pressure. They stopped several of her medications. Today she reports her blood pressure has been stable around 110/80. She does have significant 2+ edema bilateral lower extremities. She is asking to restart Lasix that ER stopped. No chest pain or shortness of air. No palpitations. Pacemaker in place. Spoke with Dr. Christiansen. Dr. Christiansen like to restart midodrine, restart Lasix at a much lower dose of 20 daily and potassium 10 mEq daily. Patient has appointment on 07/25/2024 Dr. Christiansen and to get bilateral arterial duplex. We will see her back as scheduled. Cardiac and sleep related history 1. Ischemic cardiomyopathy -Dual-chamber defibrillator [facility]. 2. CAD -LHC 02/25/2016 LAD stents patent x 2, 40% RCA 3. ZULEYKA AHI 10 on BiPAP with oxygen 4. CVA 5. COPD 6. Seizure disorder Allergies Allergen Reactions Penicillins Hives, Itching and Unknown - Low Severity Sulfa Antibiotics Unknown - Low Severity Current Outpatient Medications: aspirin 81 MG EC tablet, Take 1 tablet by mouth Daily., Disp: , Rfl: atorvastatin (LIPITOR) 40 MG tablet, Take 1 tablet by mouth every night at bedtime., Disp: , Rfl: budesonide-formoterol (SYMBICORT) 160-4.5 MCG/ACT inhaler, Inhale 2 puffs 2 (Two) Times a Day., Disp: , Rfl: divalproex (DEPAKOTE ER) 500 MG 24 hr tablet, Take 1 tablet by mouth 2 (Two) Times a Day., Disp: , Rfl: fenofibrate (TRICOR) 145 MG tablet, Take 1 tablet by mouth every night at bedtime., Disp: , Rfl: hydrOXYzine (ATARAX) 25 MG tablet, Take 1 tablet by mouth Every 6 (Six) Hours As Needed., Disp: , Rfl: levothyroxine (SYNTHROID, LEVOTHROID) 75 MCG tablet, Take 1 tablet by mouth Daily., Disp: , Rfl: loratadine (CLARITIN) 10 MG tablet, Take 1 tablet by mouth Daily., Disp: , Rfl: magnesium oxide (MAG-OX) 400 MG tablet, Take 1 tablet by mouth Daily., Disp: 30 tablet, Rfl: 11 midodrine (PROAMATINE) 2.5 MG tablet, Take 1 tablet by mouth 2 (Two) Times a Day., Disp: 60 tablet,Rfl: 0 mirtazapine (REMERON) 30 MG tablet, Take 1 tablet by mouth every night at bedtime., Disp: , Rfl: omeprazole (priLOSEC) 40 MG capsule, Take 1 capsule by mouth Daily., Disp: , Rfl: tiZANidine (ZANAFLEX) 4 MG tablet, TAKE 1/2 TABLET TO ONE TABLET EVERY SIX HOURS NEEDED FOR PAIN, Disp: , Rfl: furosemide (Lasix) 20 MG tablet, Take 1 tablet by mouth Daily., Disp: 30 tablet, Rfl: 0 potassium chloride 10 MEQ CR tablet, Take 1 tablet by mouth Daily., Disp: 30 tablet, Rfl: 0 Past Medical History: Diagnosis Date Acute on chronic systolic heart failure 11/20/2016 Bronchopneumonia 11/20/2016 Problem Code: J18.0; Problem Code Type: ICD-10; Problem Code: J18.0; Problem Code Type: ICD-10; CAD (coronary artery disease) Carotid stenosis CHF (congestive heart failure) COPD (chronic obstructive pulmonary disease) Hyperlipidemia Hypertension Localized swelling of head 11/12/2023 Pneumococcal pneumonia 11/20/2016 Problem Code: 481; Problem Code Type: ICD-9; Problem Code: 481; Problem Code Type: ICD-9; Seizures Sleep apnea Past Surgical History: Procedure Laterality Date BREAST LUMPECTOMY CARDIAC DEFIBRILLATOR PLACEMENT GALLBLADDER SURGERY GUM SURGERY HERNIA REPAIR HYSTERECTOMY NERVE REPAIR Left SUBCLAVIAN / PULMONARY SHUNT History reviewed. No pertinent family history. Social History Socioeconomic History Marital status: Tobacco Use Smoking status: Former Current packs/day: 1.00 Types: Cigarettes Passive exposure: Past Smokeless tobacco: Never Vaping Use Vaping status: Never Used Substance and Sexual Activity Alcohol use: Yes Comment: social Drug use: Never Sexual activity: Defer Objective Vital Signs: BP 110/60 (BP Location: Left arm, Patient Position: Sitting, Cuff Size: Large Adult) Pulse 73 Ht 149.9 cm (59 ) Wt 73.5 kg (162 lb) SpO2 99% BMI 32.72 kg/m?? Estimated body mass index is 32.72 kg/m?? as calculated from the following: Height as of this encounter: 149.9 cm (59 ). Weight as of this encounter: 73.5 kg (162 lb). Physical Exam Vitals reviewed. Constitutional: Appearance: Normal appearance. She is well-developed. HENT: Head: Normocephalic and atraumatic. Eyes: General: No scleral icterus. Pupils: Pupils are equal, round, and reactive to light. Cardiovascular: Rate and Rhythm: Normal rate and regular rhythm. Heart sounds: Normal heart sounds. No murmur heard. Pulmonary: Breath sounds: Normal breath sounds. No wheezing or rhonchi. Musculoskeletal: Right lower leg: Edema present. Left lower leg: Edema present. Comments: 2+ Skin: Capillary Refill: Capillary refill takes less than 2 seconds. Coloration: Skin is not cyanotic. Nails: There is no clubbing. Neurological: Mental Status: She is alert and oriented to person, place, and time. Motor: No weakness. Gait: Gait normal. Psychiatric: Mood and Affect: Mood normal. Behavior: Behavior is cooperative. Thought Content: Thought content normal. Cognition and Memory: Memory normal. Assessment and Plan Diagnoses and all orders for this visit: 1. Hospital discharge follow-up Assessment & Plan: [facility] 06/30/2024 ER records reviewed. Patient was dehydrated and had acute renal failure. All diuretics and several blood pressure medications were stopped including her carvedilol. She has an appointment with Dr. Christiansen on 07/25/2024. Based on how patient's blood pressure is doing Dr. Christiansen may want to restart beta-hernando. 2. Hypotension due to drugs Assessment & Plan: Very labile blood pressure. Per Dr. Christiansen restart midodrine 2.5 mg twice daily to help compensate for restarting Lasix. Orders: - midodrine (PROAMATINE) 2.5 MG tablet; Take 1 tablet by mouth 2 (Two) Times a Day. Dispense: 60 tablet; Refill: 0 3. Localized edema Assessment & Plan: Will restart Lasix at a very low dose to help prevent hypotension or kidney injury. Will titrate upslowly and cautiously. Today will restart Lasix at 20 mg daily and potassium at 10 mEq daily. May need to recheck labs at follow-up. Patient has arterial duplex and follow-up already scheduled with Dr. Christiansen on 07/25/2024. Other orders - furosemide (Lasix) 20 MG tablet; Take 1 tablet by mouth Daily. Dispense: 30 tablet; Refill: 0 - potassium chloride 10 MEQ CR tablet; Take 1 tablet by mouth Daily. Dispense: 30 tablet; Refill: 0 Recommendations: ER if symptoms increase, Report if any new/changing symptoms immediately, Elevate legs, Compression hose, and Stop cigarettes Follow Up Return for as scheduled on 07/25/24. Kailey Porras APRN 07/06/2024 Please note that this explicitly excludes time spent on other separate billable services such as performing procedures or test interpretation, when applicable. This note was created using dictation software which occasionally transcribes nonsensical phrases. Please contact the provider if any clarification is needed. documented in this encounter Plan of Treatment Upcoming Encounters Date Type Department Care Team (Lilliam nichole Contact Info) Description 10/05/2024 12:30 PM EST Office Visit [facility] [address] [place] [address] [place] [address] Kailey Porras APRN [address] [place] [address] 10/05/2024 12:30 PM EST Clinical Support No Requirements [facility] [address] [place] [address] [place] [address] documented as of this encounter Visit Diagnoses Diagnosis Hospital discharge follow-up Other follow-up examination Hypotension due to drugs Other iatrogenic hypotension Localized edema Edema documented in this encounter Care Teams Electrical Engineer Relationship Specialty Start Date End Date Marly Kumar APRN [address] [place] [address] PCP - General Family Medicine 07/06/24 documented as of this encounter
--- OUTSIDE RECORDS SUMMARY | 2024-09-27 08:55 | XMS_ITS | Encounter Summary ---
Author Organization [facility] [employer] Address [address] [place] [address] Care Team Providers Care Application Coordinator Name Role Phone Marly Kumar SCREEN ROOM OPERATOR Primary Care Provider [phone] Encounter Details Date Type Department Care Team (Late st Contact Info) Description 07/28/2020 Transcribed Document [facility] [place] Family Medicine [address] [place] [address] ProviderMiya MD [address] [place] [address] Social History Tobacco Use Types Packs/Day [...] Conversion Note - Miya ProviderMD - 07/28/2020 10:08 AM CDT [address] , [place] [address] Patient Copy Patient Information: Name: RENNY VILLA Current Date: 07/28/2020 10:08:21 : 1955 Patient Address: [address] [place] [id number] Patient Attending Physician: YADI SIDDIQI MD-NEU Primary Care Provider: MARIE OMER (REF)ALEJA Primary Care Provider Discharge Diagnosis: Abnormal electroencephalogram (EEG); Localization-related (focal) (partial) idiopathic epilepsy and epileptic syndromes with seizures of localized onset, intractable, without status epilepticus Comment: Follow-up Instructions: With: Address: When: YADI SIDDIQI [address] [place] [address], [address] [place] [id number] Business (1) Within 6 months Discharge Instructions: Immunizations Documented During Stay: No Immunizations Found Heart Failure Discharge Instructions (if any): Stroke Related Discharge Instructions (if any): Warfarin Related Discharge Instructions (if any): Final Medication List: Other Medications OXcarbazepine (Trileptal 300 mg oral tablet) 1 Tablet(s) Oral Two Times A Day. amitriptyline (Elavil) 100 Milligram(s) Oral At Bedtime. aspirin (aspirin 81 mg oral tablet) 1 Tablet(s) Oral Every Day. atorvastatin (Lipitor 40 mg oral tablet) 1 Tablet(s) Oral Every Day. carvedilol (carvedilol 6.25 mg oral tablet) 1 Tablet(s) Oral Two Times A Day. cetirizine (ZyrTEC) 10 Milligram(s) Oral Every Day. divalproex sodium (Depakote 500 mg oral delayed release tablet) 2 Tablet(s) Oral Two Times A Day. donepezil (Aricept 10 mg oral tablet) 1 Tablet(s) Oral once a day (at bedtime). fenofibrate (TriCor 145 mg oral tablet) 1 Tablet(s) Oral Every Day. fluticasone nasal (Flonase) 1 [place](s) Nostrils Both Every Day. furosemide (Lasix 40 mg oral tablet) 1 Tablet(s) Oral See Comment. every afternoon at 1pm. furosemide (Lasix) 80 Milligram(s) Oral Every Day. levothyroxine (levothyroxine 150 mcg (0.15 mg) oral tablet) 1 Tablet(s) Oral Every Day. metFORMIN (Glucophage 500 mg oral tablet) 1 Tablet(s) Oral Every Day. niacin (Niaspan ER 1000 mg oral tablet, extended release) 1 Tablet(s) Oral At Bedtime. omega-3 polyunsaturated fatty acids (Fish Oil 1000 mg oral capsule) 1 Capsule(s) Oral Every Day. omeprazole (PriLOSEC) 40 Milligram(s) Oral Every Day. potassium chloride (potassium chloride 20 mEq oral tablet, extended release) 1 Tablet(s) Oral Two Times A Day. saccharomyces boulardii lyo (Florastor) 250 Milligram(s) Oral Every Day. Patient Allergies: sulfa drugs; alendronate; penicillin Medication Instructions: Take your medications faithfully. Do NOT skip medication. Do NOT stop taking medications without the direction of a physician. Carry a list of your medications with you at all times, and take this medication list with you to your first follow up visit. Report any side effects. Avoid herbal remedies unless discussed with your physician. As part of your treatment plan, your physician may have prescribed a limited course of a controlled substance. This medication may be given to help people with moderate or severe pain or for other medical conditions, but there are risks involved with treatment. Common side effects may include nausea, constipation, drowsiness, sweating, itching, dry mouth, and rash. More serious side effects may include cognitive and motor impairment, like problems with thinking, concentrating, alertness, and movement (e.g. slowed reflexes), and driving and operating heavy machinery can be dangerous. It is important for you to talk to your physician if you have these side effects or questions. These controlled substances can produce physical dependence and be habit-forming if taken for an extended period of time, which means that the body has gotten used to them and may experience withdrawal symptoms if they are abruptly stopped. Withdrawal symptoms can include runny nose, sweating, goose bumps, diarrhea, abdominal cramping, rapid heartbeat, difficulty sleeping, and nervousness. CIGARETTE SMOKING: The facts are clear, cigarette smoking will shorten your life. Smoking can cause many illnesses along the way. As a healthcare provider, we recommend that you stop smoking. Assistance with quitting is available by contacting 9-096-RFCK-NOW. This is a free resource providing counseling, support, and referral. Or you may contact your personal physician. 4 WAYS TO GET AHEAD OF SEPSIS SEPSIS is a MEDICAL EMERGENCY. Time matters! Infections put you and your family at risk for a life-threatening condition called sepsis. Sepsis is the body???s extreme response to an infection. It is life-threatening, and without timely treatment, sepsis can rapidly lead to tissue damage, organ failure, and . Sepsis happens when an infection you already have???in your skin, lungs, urinary tract or somewhere else???triggers a chain reaction throughout your body. 1 PREVENT INFECTIONS Take good care of chronic conditions. Talk to your doctor about getting the recommended vaccines. 2 PRACTICE GOOD HYGIENE Wash your hands frequently. Keep cuts or open sores clean and covered until they are healed. 3 KNOW THE SYMPTOMS Confusion or disorientation Shortness of breath High heart rate Fever, shivering, or feeling very cold Extreme pain or discomfort Clammy or sweaty skin 4 ACT FAST Get medical care IMMEDIATELY if you suspect sepsis or if you have an infection that???s not getting better or is getting worse. To learn more about sepsis and how to prevent infections, visit www.cdc.gov/sepsis. STROKE is an EMERGENCY Every Minute Counts ACT F.A.S.T! FACE ?? Facial droop ?? Uneven smile ARM ?? Arm numbness ?? Arm weakness SPEECH ?? Slurred speech ?? Difficulty speaking or understanding TIME ?? Call 911 and get to the hospital immediately Have the ambulance go to the nearest stroke center. STROKE Risk Factors High blood pressure High cholesterol Heart Disease Diabetes Smoking Heavy alcohol use Physical inactivity and obesity Atrial Fibrillation (irregular heartbeat) Family history of stroke Reminder: Be sure to sign up for the [employer] patient portal, which gives you 25/05 access to your medical information ??? including these discharge instructions ??? using your computer, smartphone, or tablet. Just go to [facility] to get started. Questions? Call . [facility] would like to thank you for allowing us to assist you with your healthcare needs. DAISY Richter JACKQUELINE F, (or car sales representative) have received the above patient education materials/instructions and have verbalized understanding: Patient Signature _ Date/Time Patient Waistband Setter Lockstitch Signature (if needed) Date/Time Clinician/Hospital Waistband Setter Lockstitch Signature (if needed) Date/Time Electronically signed by Interface, [facility] Conversion Publication Specialist Cerner at 02/19/2023 6:41 PM CDT documented in this encounter Plan of Treatment Not on file documented as of this encounter Visit Diagnoses Not on filedocumented in this encounter Care Teams Application Coordinator Relationship Specialty Start Date End Date Marly Kumar, DUNG [address] [place] [address] PCP - General Nurse Practitioner 09/22/24 documented as of this encounter
--- OUTSIDE RECORDS SUMMARY | 2024-09-27 08:55 | XMS_ITS | Encounter Summary ---
Author Organization [facility] [employer] Address [address] [place] [address] Care Team Providers Care Marinator Name Role Phone Marly Kumar DUNG Primary Care Provider [phone] Encounter Details Date Type Department Care Team (Late st Contact Info) Description 07/28/[address] [facility] [place] Family Medicine [address] [place] [address] ProviderMiya MD [address] [place] [address] Social History Tobacco Use Types [...] Conversion Note - Miya ProviderMD - 07/28/2020 12:50 PM CDT Meds to Bed Enrollment Entered On: 07/28/2020 12:50 EDT Performed On: 07/28/2020 12:50 EDT by [facility] PHARMACIST-MEDICATION RECON Meds to Bed Enrollment Patient Enrollment Decision: : No/do not enroll in meds to bed program Reason for Declining Meds to Bed Program: : Prefer to use home pharmacy [facility] PHARMACIST-MEDICATION RECON - 07/28/2020 12:50 EDT documented in this encounter Plan of Treatment Not on file documented as of this encounter Visit Diagnoses Not on filedocumented in this encounter Care Teams Marinator Relationship Specialty Start Date End Date Marly Kumar, DUNG [address] [place] [id number] PCP - General Nurse Practitioner 09/22/24 documented as of this encounter
--- OUTSIDE RECORDS SUMMARY | 2024-09-27 08:55 | XMS_ITS | Encounter Summary ---
Author Organization [facility] [employer] Address [address] [place] [address] Care Team Providers Care Stump Shooter Name Role Phone Marly Kumar COMPUTER ASSISTANT Primary Care Provider [phone] Encounter Details Date Type Department Care Team (Late st Contact Info) Description 07/28/2020 Transcribed Document [facility] Family Medicine [address] [place] [address] ProviderMiya MD [address] [place] [address] Social History Tobacco Use Types [...] Conversion Note - Miya ProviderMD - 07/28/2020 1:07 PM CDT Final Discharge Planning Entered On: 07/28/2020 13:08 EDT Performed On: 07/28/2020 13:07 EDT by JENNIFER TRUJILLO RN-Blog Writer Final Discharge Planning Discharge Arrangements : Patient Post-Acute Information Patient Name: RENNY VILLA Gender: Female : [birth year] Age: 64 Years No Post-Acute Placement(s) Listed No Post-Acute Service(s) Listed No [place] Referral(s) Listed Patient Offered Choice/Affiliations Explained : No Discharge Transportation Arrangement Cmt : [place] transportation Follow Up Appointment Scheduled : No (Comment: List of appointments sent to Patient Access Center [JENNIFER TRUJILLO RN-Blog Writer - 07/28/2020 13:07 EDT] ) Is Patient High/Moderate Readmission Risk? : No Patient/Family Notified of Plan : Yes Is Patient Ready for Discharge? : Yes Physician Notified Patient is Ready for Discharge? : Yes Discharge To Care Management : SNF with Medicare Certification-03 JENNIFER TRUJILLO RN-Blog Writer - 07/28/2020 13:07 EDT Final Narrative Note Final Narrative Note : Discharged back to [facility]. Transportation by [place] [facility] JENNIFER TRUJILLO RN-Blog Writer - 07/28/2020 13:07 EDT documented in this encounter Plan of Treatment Not on file documented as of this encounter Visit Diagnoses Not on filedocumented in this encounter Care Teams Stump Shooter Relationship Specialty Start Date End Date Marly Kumar NP [address] [place] [address] PCP - General Nurse Practitioner 09/22/24 documented as of this encounter
--- OUTSIDE RECORDS SUMMARY | 2024-09-27 08:55 | XMS_ITS | Encounter Summary ---
Author Organization [facility] Address [address] [place] [address] Care Team Providers Care Upper Inspector Name Role Phone Unavailable Primary Care Provider Unavailabl e Encounter Details Date Type Department Care Team (Late st Contact Info) Description 02/08/2014 Office Visit Converted [facility] NEUROLOGY [address] [place], [place] [phone] Avinash Jerez MD Social History Tobacco Use [...] Sign Reading Time Taken Comments Blood Pressure 127/73 02/08/2014 10:07 AM EDT Pulse - - Temperature - - Respiratory Rate - - Oxygen Saturation - - Inhaled Oxygen Concentration - - Weight 94.8 kg (208 lb 15.9 oz) 014 10:07 AM EDT Height 149.9 cm (4' 11 ) 02/08/2014 10: 07 AM EDT Body Mass Index 42.21 02/08/2014 10:07 AM EDT documented in this encounter Progress Notes * Avinash Jerez MD - 02/08/2014 10:15 AM EDT PCP/Referring Physician Primary Care Provider: Marianela Payne APRN Chief Complaint 1. Seizure History of Present Illness HPI: the patient has off and on tremor and she has gotten used to it and is not bothered by it. Shehas no seizures. She is currently in 750 mg of Depakote and on 1500 mg of Keppra. Review of Systems Constitutional: negative. ENT: negative. Cardiovascular: negative. Respiratory: negative. Gastrointestinal: negative. Genitourinary: negative. Musculoskeletal: negative. Integumentary and Breasts: negative. Neurological: as noted in HPI. Psychiatric: negative. Active Problems 1. Seizure disorder (345.90) ?? Assessed By: Avinash eJrez (Neurology); Last Assessed: 08 Feb 2014 2. Tremor (781.0) ?? Assessed By: Avinash Jerez (Neurology); Last Assessed: 08 Feb 2014 Past Medical History 1. History of Cancer (199.1) 2. History of Chronic obstructive pulmonary disease (496) 3. History of congestive heart disease (V12.59) 4. History of hyperlipidemia (V12.29) 5. History of hypertension (V12.59) 6. History of hypothyroidism (V12.29) 7. History of seizure disorder (V12.49) 8. History of Osteoarthritis (V13.4) 9. History of Parkinson's disease (332.0) 10. History of Restless legs syndrome (333.94) 11. History of Stroke syndrome (436) Surgical History 1. History of Breast Surgery Lumpectomy 2. History of Cholecystectomy 3. History of Dental Surgery 4. History of Hernia Repair 5. History of Hysterectomy Family History 1. Family history of Cancer 2. Family history of Diabetes Mellitus (V18.0) 3. Family history of Hypertension (V17.49) 4. Family history of Parkinson's Disease 5. Family history of Reported Family History Of Heart Disease Social History 1. Being A Social Drinker 2. Former smoker (V15.82) 3. Marital History - (V61.03) Current Meds Medication Name Instruction Advair Diskus 100-50 MCG/DOSE Inhalation Aerosol Powder Breath Activated Amitriptyline HCl - 100 MG Oral Tablet Aspirin Low Dose 81 MG Oral Tablet Depakote 500 MG Oral Tablet Delayed Release LevETIRAcetam 500 MG Oral Tablet TAKE 1 AND 1/2 TABLETS TWICE DAILY. Lofibra 134 MG Oral Capsule Lortab 10-500 MG Oral Tablet Lovastatin 40 MG Oral Tablet Metoprolol Tartrate 25 MG Oral Tablet Mobic 7.5 MG Oral Tablet Oxybutynin Chloride 5 MG Oral Tablet Prevacid 30 MG Oral Capsule Delayed Release Promethazine HCl - 25 MG Oral Tablet Requip 1 MG Oral Tablet Synthroid 50 MCG Oral Tablet Allergies 1. Fosamax TABS 2. Penicillins 3. Sulfa Drugs Vitals Signs [Data Includes: Current Encounter] Systolic: 127 Diastolic: 73 Height: 4 ft 11 in Weight: 209 lb BMI Calculated: 42.21 BSA Calculated: 1.88 Physical Exam Constitutional General appearance: Normal. Cardiovascular Carotid pulses: Normal. Mental status:. The patient's orientation, memory, [...] Vibration sense was intact. Proprioception was normal. Coordination: Coordination was normal, including finger to nose, heal to frost, and rapid alternating movements. Deep tendon reflexes: [...] Motor tone:. The muscle tone was normal. A rest tremor was observed in the right upper extremity and observed in the left upper extremity. An action tremor was observed on the right. A head tremor was observed. Discussion/Summary we'll get an ammonia level. if the level is less than 60 I will not to change to patient's current regimen but just see her back in 2 months unless her tremor worsens. If the level is higher than that I will reduce the dose of Depakote to 500 mg ER and increase Keppra 2000 mg twice a day. I will see her back in 2 months, unless she develops further problems. Reviewed lab tests . Referring MD records reviewed . Assessment 1. Tremor (781.0) ?? Assessed By: Avinash Jerez (Neurology); Last Assessed: 08 Feb 2014 2. Seizure disorder (345.90) ?? Assessed By: Avinash Jerez (Neurology); Last Assessed: 08 Feb 2014 Plan Seizure disorder 1. Renew: Renew: LevETIRAcetam 500 MG Oral Tablet; TAKE 1 AND 1/2 TABLETS TWICE DAILY Rx By: Avinash Jerez; Dispense: 0 Days ; #:90 Tablet; Refill: 6; For: Seizure disorder; DENISA = N;Send To: [facility] 2. Ammonia Level Status: Hold For - Specimen Collection and/or Additional Processing Requested for: 08Feb2014 Perform: To Be Determined Lab Due: 22Feb2014 Marked Important; Ordered; For: Seizure disorder; Ordered By: Avinash Jerez 3. Follow-up visit in 2 months Evaluation and Treatment Follow-up Status: Hold For - Scheduling Requested for: 08Feb2014 Ordered; For: Seizure disorder; Ordered By: Avinash Jerez Performed: Due: 13Feb2014 End of Encounter Meds Medication Name Instruction Advair Diskus 100-50 MCG/DOSE Inhalation Aerosol Powder Breath Activated Amitriptyline HCl - 100 MG Oral Tablet Aspirin Low Dose 81 MG Oral Tablet Depakote 500 MG Oral Tablet Delayed Release (Divalproex Sodium) LevETIRAcetam 500 MG Oral Tablet TAKE 1 AND 1/2 TABLETS TWICE DAILY. Lofibra 134 MG Oral Capsule (Fenofibrate Micronized) Lortab 10-500 MG Oral Tablet (Hydrocodone-Acetaminophen) Lovastatin 40 MG Oral Tablet Metoprolol Tartrate 25 MG Oral Tablet Mobic 7.5 MG Oral Tablet (Meloxicam) Oxybutynin Chloride 5 MG Oral Tablet Prevacid 30 MG Oral Capsule Delayed Release (Lansoprazole) Promethazine HCl - 25 MG Oral Tablet Requip 1 MG Oral Tablet (ROPINIRole HCl) Synthroid 50 MCG Oral Tablet (Levothyroxine Sodium) Signatures Electronically signed by : Avinash Jerez M.D.; Feb 08 2014 10:33AM EST (Author) documented in this encounter Miscellaneous Notes * Letter - Avinash Jerez MD - 02/08/2014 10:15 AM EDT Chief Complaint 1. Seizure History of Present Illness HPI: the patient has off and on tremor and she has gotten used to it and is not bothered by it. Shehas no seizures. She is currently in 750 mg of Depakote and on 1500 mg of Keppra. Review of Systems Constitutional: negative. ENT: negative. Cardiovascular: negative. Respiratory: negative. Gastrointestinal: negative. Genitourinary: negative. Musculoskeletal: negative. Integumentary and Breasts: negative. Neurological: as noted in HPI. Psychiatric: negative. Active Problems 1. Seizure disorder (345.90) ?? Assessed By: Avinash Jerez (Neurology); Last Assessed: 08 Feb 2014 2. Tremor (781.0) ?? Assessed By: Avinash Jerez (Neurology); Last Assessed: 08 Feb 2014 Past Medical History ?? History of Cancer (199.1) ?? History of Chronic obstructive pulmonary disease (496) ?? History of congestive heart disease (V12.59) ?? History of hyperlipidemia (V12.29) ?? History of hypertension (V12.59) ?? History of hypothyroidism (V12.29) ?? History of seizure disorder (V12.49) ?? History of Osteoarthritis (V13.4) ?? History of Parkinson's disease (332.0) ?? History of Restless legs syndrome (333.94) ?? History of Stroke syndrome (436) Surgical History ?? History of Breast Surgery Lumpectomy ?? History of Cholecystectomy ?? History of Dental Surgery ?? History of Hernia Repair ?? History of Hysterectomy Family History ?? Family history of Cancer ?? Family history of Diabetes Mellitus (V18.0) ?? Family history of Hypertension (V17.49) ?? Family history of Parkinson's Disease ?? Family history of Reported Family History Of Heart Disease Social History ?? Being A Social Drinker ?? Former smoker (V15.82) ?? Marital History - (V61.03) Current Meds Medication Name Instruction Advair Diskus 100-50 MCG/DOSE Inhalation Aerosol Powder Breath Activated Amitriptyline HCl - 100 MG Oral Tablet Aspirin Low Dose 81 MG Oral Tablet Depakote 500 MG Oral Tablet Delayed Release LevETIRAcetam 500 MG Oral Tablet TAKE 1 AND 1/2 TABLETS TWICE DAILY. Lofibra 134 MG Oral Capsule Lortab 10-500 MG Oral Tablet Lovastatin 40 MG Oral Tablet Metoprolol Tartrate 25 MG Oral Tablet Mobic 7.5 MG Oral Tablet Oxybutynin Chloride 5 MG Oral Tablet Prevacid 30 MG Oral Capsule Delayed Release Promethazine HCl - 25 MG Oral Tablet Requip 1 MG Oral Tablet Synthroid 50 MCG Oral Tablet Allergies 1. Fosamax TABS 2. Penicillins 3. Sulfa Drugs Vitals Signs [Data Includes: Current Encounter] Systolic: 127 Diastolic: 73 Height: 4 ft 11 in Weight: 209 lb BMI Calculated: 42.21 BSA Calculated: 1.88 Physical Exam Constitutional General appearance: Normal. Cardiovascular Carotid pulses: Normal. Mental status:. The patient's orientation, memory, [...] Vibration sense was intact. Proprioception was normal. Coordination: Coordination was normal, including finger to nose, heal to frost, and rapid alternating movements. Deep tendon reflexes: [...] Motor tone:. The muscle tone was normal. A rest tremor was observed in the right upper extremity and observed in the left upper extremity. An action tremor was observed on the right. A head tremor was observed. Discussion/Summary we'll get an ammonia level. if the level is less than 60 I will not to change to patient's current regimen but just see her back in 2 months unless her tremor worsens. If the level is higher than that I will reduce the dose of Depakote to 500 mg ER and increase Keppra 2000 mg twice a day. I will see her back in 2 months, unless she develops further problems. Reviewed lab tests . Referring MD records reviewed . Assessment 1. Tremor (781.0) ?? Assessed By: Avinash Jerez (Neurology); Last Assessed: 08 Feb 2014 2. Seizure disorder (345.90) ?? Assessed By: Avinash Jerez (Neurology); Last Assessed: 08 Feb 2014 Plan Seizure disorder ?? Renew: LevETIRAcetam 500 MG Oral Tablet; TAKE 1 AND 1/2 TABLETS TWICE DAILY Rx By: Avinash Jerez; Dispense: 0 Days ; #:90 Tablet; Refill: 6; For: Seizure disorder; DENISA = N;Send To: [facility] ?? Ammonia Level Status: Hold For - Specimen Collection and/or Additional Processing Requested for: 08Feb2014 Perform: To Be Determined Lab Due: 22Feb2014 Marked Important; Ordered; For: Seizure disorder; Ordered By: Avinash Jerez ?? Follow-up visit in 2 months Evaluation and Treatment Follow-up Status: Hold For - Scheduling Requested for: 08Feb2014 Ordered; For: Seizure disorder; Ordered By: Avinash Jerez Performed: Due: 13Feb2014 End of Encounter Meds Medication Name Instruction Advair Diskus 100-50 MCG/DOSE Inhalation Aerosol Powder Breath Activated Amitriptyline HCl - 100 MG Oral Tablet Aspirin Low Dose 81 MG Oral Tablet Depakote 500 MG Oral Tablet Delayed Release (Divalproex Sodium) LevETIRAcetam 500 MG Oral Tablet TAKE 1 AND 1/2 TABLETS TWICE DAILY. Lofibra 134 MG Oral Capsule (Fenofibrate Micronized) Lortab 10-500 MG Oral Tablet (Hydrocodone-Acetaminophen) Lovastatin 40 MG Oral Tablet Metoprolol Tartrate 25 MG Oral Tablet Mobic 7.5 MG Oral Tablet (Meloxicam) Oxybutynin Chloride 5 MG Oral Tablet Prevacid 30 MG Oral Capsule Delayed Release (Lansoprazole) Promethazine HCl - 25 MG Oral Tablet Requip 1 MG Oral Tablet (ROPINIRole HCl) Synthroid 50 MCG Oral Tablet (Levothyroxine Sodium) Signatures Electronically signed by : Avinash Jerez M.D.; Feb 08 2014 10:33AM EST (Author) documented in this encounter Plan of Treatment Upcoming Encounters Date Type Department Care Team (Late st Contact Info) Description 10/05/2024 12:30 PM EST Office Visit [facility] [address] [place] [address] [place] [phone] Kailey Porras APRN [address] [facility] [place] [address] 10/05/2024 12:30 PM EST Clinical Support No Requirements [facility] [address] [place] [address] [place] [id number] documented as of this encounter Visit Diagnoses Not on filedocumented in this encounter
--- OUTSIDE RECORDS SUMMARY | 2024-09-27 08:55 | XMS_ITS | Encounter Summary ---
Author Organization [facility] Address [address] [place] [address] Care Team Providers Care Hosiery Mater Name Role Phone Marly Kumar APRN Primary Care Provider [phone] Reason for Visit * Reason Onset Date Comments DR. SULTANA 06/20/2024 Encounter Details Date Type Department Care Team (Late st Contact Info) Description 06/20/[address] [facility] [address] [place] [address] Dinorah Christiansen MD [address] [place] [address] DR. SULTANA Social History Tobacco Use Types Packs/Day Years [...] encounter Miscellaneous Notes * Telephone Encounter - Peace Pope RN - 06/21/2024 2:47 PM EDT Spoke with emergency contact Edwin Wilson ( I tried calling patient and got no answer) went over instructions about decreasing lasix and starting midodrine. Also advised to monitor B/P and symptoms and if any issues to let us know. Verbalized understanding- she will inform patient. * Telephone Encounter - Dinorah Christiansen MD - 06/21/2024 2:39 PM EDT Cut her lasix from three times a day to two times a day and start midodrine 2.5mg BID. Low dose med to keep blood pressure up. I have done a really small dose to start. * Telephone Encounter - Tona Luciano MA - 06/20/2024 4:19 PM EDT Patient is not on carvedilol anymore. Patient also has been having headaches, dizziness and passingout feeling. * Telephone Encounter - Dinorah Christiansen MD - 06/20/2024 4:04 PM EDT Double check that she is not taking carvedilol anymore. If not I may need to call her something in.Let me know. If it gets very low and does not come back up she probably needs to go to the emergency room. * Telephone Encounter - Jessy Sanchez RegSched Rep - 06/20/2024 2:11 PM EDT Caller: EDWIN WILSON Relationship: Emergency Contact Best call back number: [phone] What is the best time to reach you: ANY What was the call regarding: ADVISING PATIENT'S BP IS RUNNING LOW AROUND 70/40 YESTERDAY AND ATE SALT IT BROUGHT IT UP TO 127/70. HAVING THE SAME ISSUES TODAY. PLEASE CALL THE ABOVE TO ADVISE. Is it okay if the provider responds through MyChart: NO documented in this encounter Plan of Treatment Upcoming Encounters Date Type Department Care Team (Late st Contact Info) Description 10/05/2024 12:30 PM EST Office Visit [facility] [address] [place] [address] [place] [address] Kailey Porras APRN [address] [place] [address] 10/05/2024 12:30 PM EST Clinical Support No Requirements [facility] [place] [address] documented as of this encounter Visit Diagnoses Diagnosis Hypotension due to drugs- Primary Other iatrogenic hypotension documented in this encounter Care Teams Hosiery Mater Relationship Specialty Start Date End Date Marly Kumar APRN [address] [place], [place] [id number] PCP - General Family Medicine 07/06/24 documented as of this encounter
--- OUTSIDE RECORDS SUMMARY | 2024-09-27 08:55 | XMS_ITS | Encounter Summary ---
Author Organization [facility] Address [address] [place] [address] Care Team Providers Care Needle Punch Machine Operator Name Role Phone Marly Kumar APRN Primary Care Provider [phone] Encounter Details Date Type Department Care Team (Late st Contact Info) Description 09/08/2024 Telephone [facility] [address] [place] [address] Dinorah Christiansen MD [address] [place] [address] Social History Tobacco Use Types Packs/Day Years [...] Miscellaneous Notes * Telephone Encounter - Jessy Sanchez RegSched Rep - 09/09/2024 3:45 PM EST Name: Mu Perkins Relationship: Self Best Callback Number: [phone] [facility] PROVIDED THE RELAY MESSAGE FROM THE OFFICE PATIENT: VOICED UNDERSTANDING AND HAS NO FURTHER QUESTIONS AT THIS TIME ADDITIONAL INFORMATION: THERE WAS NO Thursday AVAILABLE, SCHEDULED PATIENT FOR 09.28.2024 PLEASE CALL HER IF THIS IS A PROBLEM * Telephone Encounter - Ester Richardson RegSched Rep - 09/09/2024 12:36 PM EST CALLED PATIENT LEFT VM FOR HER TO CALL BACK AND SCHEDULE ON [facility] ON THE OR Thursday OK FOR HUB TO RELAY AND SCHEDULE. * Telephone Encounter - Joaquín Ybarra CMA - 09/09/2024 11:37 AM EST PCP NOTIFIED OF MESSAGE. CAN YOU CALL PATIENT AND SCHEDULE APPT? PATIENT HAS DEFIBRILLATOR THAT WILL NEED TO BE FOLLOWED. THANK YOU * Telephone Encounter - Dinorah Christiansen MD - 09/08/2024 4:42 PM EST I would not recommend NSAIDs because of possibility of fluid retention and her history of heart failure. Please let PCP know and also schedule follow-up as she has a defibrillator that needs to be followed. Thanks * Telephone Encounter - Yulissa Queen RN - 09/08/2024 11:53 AM EST Pt last seen by Mira on 07/06/24 with no follow up scheduled. Please advise. * Telephone Encounter - Peyton Zimmerman RegSched Rep - 09/08/2024 10:39 AM EST Marly from [facility] in [place] called regarding patient. Evin stated that PT suffers from chronic back pain and she would like to prescribe patient Meloxicam 7.5mg, She just wanted to confirm with Dr Christiansen that this would be OK for this patient. Marly asked for a call back at . She stated that a message could be left for her. documented in this encounter Plan of Treatment Upcoming Encounters Date Type Department Care Team (Late st Contact Info) Description 10/05/2024 12:30 PM EST Office Visit [facility] [address] [place] [address] Kailey Porras APRN [address] [place] [address] 10/05/2024 12:30 PM EST Clinical Support No Requirements [facility] [address] [place] [address] documented as of this encounter Visit Diagnoses Not on filedocumented in this encounter Care Teams Needle Punch Machine Operator Relationship Specialty Start Date End Date Mraly Kumar APRN [address] [phone] PCP - General Family Medicine 07/06/24 documented as of this encounter
--- OUTSIDE RECORDS SUMMARY | 2024-09-27 08:55 | XMS_ITS | Encounter Summary ---
Author Organization [facility] Address [address] [place] [address] Care Team Providers Care Converting Technician Name Role Phone Unavailable Primary Care Provider Unavailabl e Encounter Details Date Type Department Care Team (Late st Contact Info) Description 07/27/2020 Historic Encounter [address] [address] Provider, [facility] Historical Social History Tobacco Use Types [...] Date/Time Associated Diagnosis Comments GLUCOSE-POC Routine 07/27/2020 6:59 AM EDT documented in this encounter Results * Glucose, Point of Care (07/27/2020 6:59 AM EDT) [facility] Glucose POC2 102 70 - 110 mg/dL 07/27/2020 10:59 AM EDT [facility] Plumbing Technician [id number] 07/27/2020 10:59 AM EDT [facility] Device SN [id number] 07/27/2020 10:59 AM EDT [facility] Blood 07/27/2020 6:59 AM EDT 07/27/2020 3:15 PM EDT [facility] Historical Provider POINT OF CARE TEST ORDAaron LOU Final Result [facility] [address] [place] [address], [facility] [phone] documented in this encounter Visit Diagnoses Not on filedocumented in this encounter
--- OUTSIDE RECORDS SUMMARY | 2024-09-27 08:55 | XMS_ITS | Encounter Summary ---
Author Organization [facility] Address [address] [place] [address] Care Team Providers Care Handyman Name Role Phone Unavailable Primary Care Provider Unavailabl e Encounter Details Date Type Department Care Team (Late st Contact Info) Description 04/12/2014 Office Visit Converted [facility] [address] [place], [place] [id number] Avinash Jerez MD Social History Tobacco Use [...] Sign Reading Time Taken Comments Blood Pressure 145/83 04/12/2014 10:41 AM EDT Pulse - - Temperature - - Respiratory Rate - - Oxygen Saturation - - Inhaled Oxygen Concentration - - Weight 99.3 kg (219 lb 0.1 oz) 04/12/2014 10:41 AM EDT Height 149.9 cm (4' 11 ) 04/12/2014 10:41 AM EDT Body Mass Index 44.23 04/12/2014 10:41 AM EDT documented in this encounter Progress Notes * Avinash Jerez MD - 04/12/2014 10:45 AM EDT Chief Complaint 1. Headache 2. Seizure History of Present Illness HPI: And has been seizure free on the dose of Keppra 750 twice a day and go to a 500 twice a day +250 in the evening. she has a significant tremor especially in her right arm that is on occasion so severe that she has problems feeding herself Review of Systems Constitutional: negative. ENT: negative. Cardiovascular: negative. Respiratory: negative. Gastrointestinal: negative. Genitourinary: negative. Musculoskeletal: negative. Integumentary and Breasts: negative. Neurological: as noted in HPI. Psychiatric: negative. Active Problems 1. Seizure disorder (345.90) ?? Assessed By: Avinash Jerez (Neurology); Last Assessed: 12 Apr 2014 2. Tremor (781.0) ?? Assessed By: Avinash Jerez (Neurology); Last Assessed: 12 Apr 2014 Past Medical History 1. History of [...] 134 MG Oral Capsule Lortab 10-500 MG TABS Lovastatin 40 MG Oral Tablet Metoprolol Tartrate 25 MG Oral Tablet Mobic 7.5 MG Oral Tablet Oxybutynin Chloride 5 MG Oral Tablet Prevacid 30 MG Oral Capsule Delayed Release Promethazine HCl - 25 MG Oral Tablet Requip 1 MG Oral Tablet Synthroid 50 MCG Oral Tablet Allergies 1. Fosamax TABS 2. Penicillins 3. Sulfa Drugs Vitals Signs [Data Includes: Current Encounter] Systolic: 145 Diastolic: 83 Height: 4 ft 11 in Weight: 219 lb BMI Calculated: 44.23 BSA Calculated: 1.92 Physical Exam Constitutional General appearance: Normal. Cardiovascular [...] An action tremor was observed on the right and observed on the left. Discussion/Summary Get a Keppra and an and Depakote level today and an ammonia level since her ammonia was slightly elevated as well as a TSH. He will decrease Depakote to 500 twice a day and increase Keppra 2000 twicea day Reviewed lab tests . Ordered lab tests . PCP records reviewed. Referring MD records reviewed . Assessment 1. Seizure disorder (345.90) ?? Assessed By: Avinash Jerez (Neurology); Last Assessed: 12 Apr 2014 2. Tremor (781.0) ?? Assessed By: Avinash Jerez (Neurology); Last Assessed: 12 Apr 2014 Plan Seizure disorder, Tremor 1. Start: Start: LevETIRAcetam 1000 MG Oral Tablet; 1 tab po BID Rx By: Avinash Jerez; Dispense: 0 Days ; #:1 X 60 Tablet Bottle; Refill: 10; For: Seizure disorder, Tremor; DENISA = N; Send To: [facility] Tremor 2. Ammonia Level Status: Hold For - Specimen Collection and/or Additional Processing Requested for: 12Apr2014 Perform: To Be Determined Lab Due: 26Apr2014 Marked Important; Ordered; For: Tremor; Ordered By: Avinash Jerez 3. Depakene ( Valproic Acid ) Status: Hold For - Specimen Collection and/or Additional Processing Requested for: 12Apr2014 Perform: To Be Determined Lab Due: 26Apr2014 Marked Important; Ordered; For: Tremor; Ordered By: Avinash Jerez 4. Levetiracetam ( Keppra ) Quant Status: Hold For - Specimen Collection and/or Additional Processing Requested for: 12Apr2014 Perform: To Be Determined Lab Due: 26Apr2014 Marked Important; Ordered; For: Tremor; Ordered By: Avinash Jerez 5. TSH Status: Hold For - Specimen Collection and/or Additional Processing Requested for: 12Apr2014 Perform: To Be Determined Lab Due: 26Apr2014 Marked Important; Ordered; For: Tremor; Ordered By: Avinash Jerez 6. Follow-up visit in 4 months Evaluation and Treatment Follow-up Status: Hold For - Scheduling Requested for: 12Apr2014 Ordered; For: Tremor; Ordered By: Avinash Jerez Performed: Due: 17Apr2014 End of Encounter Meds Medication Name Instruction Advair Diskus 100-50 MCG/DOSE Inhalation Aerosol Powder Breath Activated Amitriptyline HCl - 100 MG Oral Tablet Aspirin Low Dose 81 MG Oral Tablet Depakote 500 MG Oral Tablet Delayed Release (Divalproex Sodium) LevETIRAcetam 1000 MG Oral Tablet 1 tab po BID LevETIRAcetam 500 MG Oral Tablet TAKE 1 AND 1/2 TABLETS TWICE DAILY. Lofibra 134 MG Oral Capsule (Fenofibrate Micronized) Lortab 10-500 MG TABS (Hydrocodone-Acetaminophen) Lovastatin 40 MG Oral Tablet Metoprolol Tartrate 25 MG Oral Tablet Mobic 7.5 MG Oral Tablet (Meloxicam) Oxybutynin Chloride 5 MG Oral Tablet Prevacid 30 MG Oral Capsule Delayed Release (Lansoprazole) Promethazine HCl - 25 MG Oral Tablet Requip 1 MG Oral Tablet (ROPINIRole HCl) Synthroid 50 MCG Oral Tablet (Levothyroxine Sodium) The patient and patient's family was counseled regarding instructions for management, patient and family education, impressions, risks and benefits of treatment options and importance of compliance with treatment. Signatures Electronically signed by : Avinash Jerez M.D.; Apr 12 2014 11:25AM EST (Author) documented in this encounter Miscellaneous Notes * Letter - Avinash Jerez MD - 04/12/2014 10:45 AM EDT Chief Complaint 1. Headache 2. Seizure History of Present Illness HPI: And has been seizure free on the dose of Keppra 750 twice a day and go to a 500 twice a day +250 in the evening. she has a significant tremor especially in her right arm that is on occasion so severe that she has problems feeding herself Review of Systems Constitutional: negative. ENT: negative. Cardiovascular: negative. Respiratory: negative. Gastrointestinal: negative. Genitourinary: negative. Musculoskeletal: negative. Integumentary and Breasts: negative. Neurological: as noted in HPI. Psychiatric: negative. Active Problems 1. Seizure disorder (345.90) ?? Assessed By: Avinash Jerez (Neurology); Last Assessed: 12 Apr 2014 2. Tremor (781.0) ?? Assessed By: Avinash Jerez (Neurology); Last Assessed: 12 Apr 2014 Past Medical History ?? History of [...] 134 MG Oral Capsule Lortab 10-500 MG TABS Lovastatin 40 MG Oral Tablet Metoprolol Tartrate 25 MG Oral Tablet Mobic 7.5 MG Oral Tablet Oxybutynin Chloride 5 MG Oral Tablet Prevacid 30 MG Oral Capsule Delayed Release Promethazine HCl - 25 MG Oral Tablet Requip 1 MG Oral Tablet Synthroid 50 MCG Oral Tablet Allergies 1. Fosamax TABS 2. Penicillins 3. Sulfa Drugs Vitals Signs [Data Includes: Current Encounter] Systolic: 145 Diastolic: 83 Height: 4 ft 11 in Weight: 219 lb BMI Calculated: 44.23 BSA Calculated: 1.92 Physical Exam Constitutional General appearance: Normal. Cardiovascular [...] An action tremor was observed on the right and observed on the left. Discussion/Summary Get a Keppra and an and Depakote level today and an ammonia level since her ammonia was slightly elevated as well as a TSH. He will decrease Depakote to 500 twice a day and increase Keppra 2000 twicea day Reviewed lab tests . Ordered lab tests . PCP records reviewed. Referring MD records reviewed . Assessment 1. Seizure disorder (345.90) ?? Assessed By: Avinash Jerez (Neurology); Last Assessed: 12 Apr 2014 2. Tremor (781.0) ?? Assessed By: Avinash Jerez (Neurology); Last Assessed: 12 Apr 2014 Plan Seizure disorder, Tremor ?? Start: LevETIRAcetam 1000 MG Oral Tablet; 1 tab po BID Rx By: Avinash Jerez; Dispense: 0 Days ; #:1 X 60 Tablet Bottle; Refill: 10; For: Seizure disorder, Tremor; DENISA = N; Send To: [facility] Tremor ?? Ammonia Level Status: Hold For - Specimen Collection and/or Additional Processing Requested for: 12Apr2014 Perform: To Be Determined Lab Due: 26Apr2014 Marked Important; Ordered; For: Tremor; Ordered By: Avinash Jerez ?? Depakene ( Valproic Acid ) Status: Hold For - Specimen Collection and/or Additional Processing Requested for: 12Apr2014 Perform: To Be Determined Lab Due: 26Apr2014 Marked Important; Ordered; For: Tremor; Ordered By: Avinash Jerez ?? Levetiracetam ( Keppra ) Quant Status: Hold For - Specimen Collection and/or Additional Processing Requested for: 12Apr2014 Perform: To Be Determined Lab Due: 26Apr2014 Marked Important; Ordered; For: Tremor; Ordered By: Avinash Jerez ?? TSH Status: Hold For - Specimen Collection and/or Additional Processing Requested for: 12Apr2014 Perform: To Be Determined Lab Due: 26Apr2014 Marked Important; Ordered; For: Tremor; Ordered By: Avinash Jerez ?? Follow-up visit in 4 months Evaluation and Treatment Follow-up Status: Hold For - Scheduling Requested for: 12Apr2014 Ordered; For: Tremor; Ordered By: Avinash Jerez Performed: Due: 17Apr2014 End of Encounter Meds Medication Name Instruction Advair Diskus 100-50 MCG/DOSE Inhalation Aerosol Powder Breath Activated Amitriptyline HCl - 100 MG Oral Tablet Aspirin Low Dose 81 MG Oral Tablet Depakote 500 MG Oral Tablet Delayed Release (Divalproex Sodium) LevETIRAcetam 1000 MG Oral Tablet 1 tab po BID LevETIRAcetam 500 MG Oral Tablet TAKE 1 AND 1/2 TABLETS TWICE DAILY. Lofibra 134 MG Oral Capsule (Fenofibrate Micronized) Lortab 10-500 MG TABS (Hydrocodone-Acetaminophen) Lovastatin 40 MG Oral Tablet Metoprolol Tartrate 25 MG Oral Tablet Mobic 7.5 MG Oral Tablet (Meloxicam) Oxybutynin Chloride 5 MG Oral Tablet Prevacid 30 MG Oral Capsule Delayed Release (Lansoprazole) Promethazine HCl - 25 MG Oral Tablet Requip 1 MG Oral Tablet (ROPINIRole HCl) Synthroid 50 MCG Oral Tablet (Levothyroxine Sodium) The patient and patient's family was counseled regarding instructions for management, patient and family education, impressions, risks and benefits of treatment options and importance of compliance with treatment. Signatures Electronically signed by : Avinash Jerez M.D.; Apr 12 2014 11:25AM EST (Author) documented in this encounter Plan of Treatment Upcoming Encounters Date Type Department Care Team (Late st Contact Info) Description 10/05/2024 12:30 PM EST Office Visit [facility] [address] [place] [address] Kailey Porras APRN [address] [place] [address] 10/05/2024 12:30 PM EST Clinical Support No Requirements [facility] [address] [place] [address] documented as of this encounter Visit Diagnoses Not on filedocumented in this encounter
--- OUTSIDE RECORDS SUMMARY | 2024-09-27 08:55 | XMS_ITS | Encounter Summary ---
Author Organization [facility] Address [address] [place] [address] Care Team Providers Care Grocery Deliverer Name Role Phone Unavailable Primary Care Provider Unavailabl e Encounter Details Date Type Department Care Team (Late st Contact Info) Description 07/28/2020 Historic Encounter [address] [address] Provider, [facility] Historical Social History Tobacco Use Types Packs/Day [...] Priority Date/Time Associated Diagnosis Comments GLUCOSE-POC Routine 07/28/2020 6:34 AM EDT documented in this encounter Results * (ABNORMAL) Glucose, Point of Care (07/28/2020 6:34 AM EDT) [facility] Glucose POC2 111(H) 70 - 110 mg/dL 07/28/2020 10:34 AM EDT [facility] Criminology Professor [phone] 07/28/2020 10:34 AM EDT [facility] Device SN [id number] 07/28/2020 10:34 AM EDT [facility] Blood 07/28/2020 6:34 AM EDT 07/28/2020 10:41 AM EDT [facility] Historical Provider POINT OF CARE TEST ORDE RABLES Final Result [facility] [address] [phone] documented in this encounter Visit Diagnoses Not on filedocumented in this encounter
--- OUTSIDE RECORDS SUMMARY | 2024-09-27 08:55 | XMS_ITS | Encounter Summary ---
Author Organization [facility] Address [address] [place] [address] Care Team Providers Care Missile Pad Mechanic Name Role Phone Unavailable Primary Care Provider Unavailabl e Encounter Details Date Type Department Care Team (Late st Contact Info) Description 08/30/2013 Office Visit Converted [facility] [address] [place] [address] Avinash Jerez MD Social History Tobacco Use [...] Sign Reading Time Taken Comments Blood Pressure 130/82 08/30/2013 1:55 PM EDT Pulse - - Temperature - - Respiratory Rate - - Oxygen Saturation - - Inhaled Oxygen Concentration - - Weight 95.7 kg (211 lb) 08/30/2013 1:55 PM EDT Height 149.9 cm (4' 11 ) 08/30/2013 1:55 PM EDT Body Mass Index 42.62 08/30/2013 1:55 PM EDT documented in this encounter Progress Notes * Avinash Jerez MD - 08/30/2013 2:15 PM EDT Chief Complaint 1. Seizure History of Present Illness HPI: The patient had 3 seizures since I saw her last. 2 of these episodes she had longer lasting convulsions. However, overall she is doing better. She continues to have her tremor Review of Systems Constitutional: negative. ENT: negative. Cardiovascular: negative. Respiratory: negative. Gastrointestinal: negative. Genitourinary: negative. Musculoskeletal: negative. Integumentary and Breasts: negative. Neurological: as noted in HPI. Psychiatric: negative. Active Problems 1. 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 Tremor 781.0 Past Medical History ?? History of Cancer 199.1 ?? History of Chronic Obstructive Pulmonary Disease 496 ?? History of Congestive Heart Failure 428.0 ?? 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 History of Hyperlipidemia 272.4 ?? History of Hypertension 401.9 ?? History of Hypothyroidism 244.9 ?? History [...] of Hypertension V17.49 ?? Family history of Parkinson's Disease ?? [...] Tablet Delayed Release; Therapy: 09Aug2013 to 5. LevETIRAcetam 500 MG Oral Tablet; TAKE 1 TABLET TWICE DAILY; Therapy: 09Aug2013 to (Evaluate:[id number]) Requested for: 09Aug2013; Last Rx:09Aug2013 6. Lofibra 134 MG Oral Capsule; Therapy: 09Aug2013 to 7. Lortab 10-500 MG Oral Tablet; Therapy: 09Aug2013 to 8. Lovastatin 40 MG Oral Tablet; Therapy: 09Aug2013 to 9. Metoprolol Tartrate 25 MG Oral Tablet; Therapy: 30Aug2013 to 10. Mobic 7.5 MG Oral Tablet; Therapy: 09Aug2013 to 11. Oxybutynin Chloride 5 MG Oral Tablet; Therapy: 09Aug2013 to 12. Prevacid 30 MG Oral Capsule Delayed Release; Therapy: 09Aug2013 to 13. Promethazine HCl 25 MG Oral Tablet; Therapy: 09Aug2013 to 14. Requip 1 MG Oral Tablet; Therapy: 09Aug2013 to 15. Synthroid 50 MCG Oral Tablet; Therapy: 09Aug2013 to Allergies 1. Fosamax TABS 2. Penicillins 3. Sulfa Drugs Vitals Signs [Data Includes: Current Encounter] Systolic: 130, Diastolic: 82, BMI Calculated: 42.54, BSA Calculated: 1.89, Height: [...] was observed on the right. Assessment 1. Tremor 781.0 2. Epilepsy And Recurrent Seizures 345.90 Plan Epilepsy And Recurrent Seizures (345.90) ?? LevETIRAcetam 500 MG Oral Tablet; TAKE 1 AND 1/2 TABLETS TWICE DAILY; Therapy: 09Aug2013 to (Evaluate:[id number]) Requested for: 30Aug2013; Last Rx:30Aug2013 Epilepsy And Recurrent Seizures (345.90), Tremor (781.0) ?? Follow-up visit in 6 weeks Evaluation and Treatment Follow-up Requested for: 30Aug2013 Discussion/Summary At this point and the entire sure about the etiology of the tremor but they cannot taper off Depakote because the patient still has seizures. She will increase her dose of Depakote to 750 mg twice a day and I will reevaluate her in 6 weeks. Her MRI and EEG were normal however the EEG was not a sleep deprived and without hyperventilation and photic stimulation. Reviewed lab tests . Reviewed radiology tests . PCP records reviewed. Referring MD records reviewed . MRI reviewed. The patient and patient's family was counseled regarding diagnostic results, instructions for management, patient and family education, impressions and risks and benefits of treatment options. Total time of encounter was 45 minutes and 35 minutes was spent counseling. Signatures Electronically signed by : Avinash Jerez M.D.; Aug 30 2013 2:19PM (Author) documented in this encounter Miscellaneous Notes * Letter - Avinash Jerez MD - 08/30/2013 2:15 PM EDT Chief Complaint 1. Seizure History of Present Illness HPI: The patient had 3 seizures since I saw her last. 2 of these episodes she had longer lasting convulsions. However, overall she is doing better. She continues to have her tremor Review of Systems Constitutional: negative. ENT: negative. Cardiovascular: negative. Respiratory: negative. Gastrointestinal: negative. Genitourinary: negative. Musculoskeletal: negative. Integumentary and Breasts: negative. Neurological: as noted in HPI. Psychiatric: negative. Active Problems 1. 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 Tremor 781.0 Past Medical History ?? History of Cancer 199.1 ?? History of Chronic Obstructive Pulmonary Disease 496 ?? History of Congestive Heart Failure 428.0 ?? 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 History of Hyperlipidemia 272.4 ?? History of Hypertension 401.9 ?? History of Hypothyroidism 244.9 ?? History [...] of Hypertension V17.49 ?? Family history of Parkinson's Disease ?? [...] Tablet Delayed Release; Therapy: 09Aug2013 to 5. LevETIRAcetam 500 MG Oral Tablet; TAKE 1 TABLET TWICE DAILY; Therapy: 09Aug2013 to (Evaluate:[id number]) Requested for: 09Aug2013; Last Rx:09Aug2013 6. Lofibra 134 MG Oral Capsule; Therapy: 09Aug2013 to 7. Lortab 10-500 MG Oral Tablet; Therapy: 09Aug2013 to 8. Lovastatin 40 MG Oral Tablet; Therapy: 09Aug2013 to 9. Metoprolol Tartrate 25 MG Oral Tablet; Therapy: 30Aug2013 to 10. Mobic 7.5 MG Oral Tablet; Therapy: 09Aug2013 to 11. Oxybutynin Chloride 5 MG Oral Tablet; Therapy: 09Aug2013 to 12. Prevacid 30 MG Oral Capsule Delayed Release; Therapy: 09Aug2013 to 13. Promethazine HCl 25 MG Oral Tablet; Therapy: 09Aug2013 to 14. Requip 1 MG Oral Tablet; Therapy: 09Aug2013 to 15. Synthroid 50 MCG Oral Tablet; Therapy: 09Aug2013 to Allergies 1. Fosamax TABS 2. Penicillins 3. Sulfa Drugs Vitals Signs [Data Includes: Current Encounter] Systolic: 130, Diastolic: 82, BMI Calculated: 42.54, BSA Calculated: 1.89, Height: [...] was observed on the right. Assessment 1. Tremor 781.0 2. Epilepsy And Recurrent Seizures 345.90 Plan Epilepsy And Recurrent Seizures (345.90) ?? LevETIRAcetam 500 MG Oral Tablet; TAKE 1 AND 1/2 TABLETS TWICE DAILY; Therapy: 09Aug2013 to (Evaluate:28Mar2014) Requested for: 30Aug2013; Last Rx:30Aug2013 Epilepsy And Recurrent Seizures (345.90), Tremor (781.0) ?? Follow-up visit in 6 weeks Evaluation and Treatment Follow-up Requested for: 30Aug2013 Discussion/Summary At this point and the entire sure about the etiology of the tremor but they cannot taper off Depakote because the patient still has seizures. She will increase her dose of Depakote to 750 mg twice a day and I will reevaluate her in 6 weeks. Her MRI and EEG were normal however the EEG was not a sleep deprived and without hyperventilation and photic stimulation. Reviewed lab tests . Reviewed radiology tests . PCP records reviewed. Referring MD records reviewed . MRI reviewed. The patient and patient's family was counseled regarding diagnostic results, instructions for management, patient and family education, impressions and risks and benefits of treatment options. Total time of encounter was 45 minutes and 35 minutes was spent counseling. Signatures Electronically signed by : Avinash Jerez M.D.; Aug 30 2013 2:19PM (Author) documented in this encounter Plan of Treatment Upcoming Encounters Date Type Department Care Team (Late st Contact Info) Description 10/05/2024 12:30 PM EST Office Visit [facility] [address] [place] [address] Kailey Porras APRN [address] [facility] [place] [address] 10/05/2024 12:30 PM EST Clinical Support No Requirements [facility] [address] [place] [address] documented as of this encounter Visit Diagnoses Not on filedocumented in this encounter
--- OUTSIDE RECORDS SUMMARY | 2024-09-27 08:55 | XMS_ITS | Encounter Summary ---
Author Organization [facility] Address [address] [place] [address] Care Team Providers Care Program Director Name Role Phone Unavailable Primary Care Provider Unavailabl e Encounter Details Date Type Department Care Team (Late st Contact Info) Description 03/23/2003 Conversion Encounter [facility]ISTORICAL CONV [address] [place] [address] Interface, See Report Social History Tobacco Use Types Packs/Day Years [...] Description 10/05/2024 12:30 PM EST Office Visit [facility] [address] [place] [address] Kailey Porras APRN [address] [place] [address] 10/05/2024 12:30 PM EST Clinical Support No Requirements [facility] [address] [place] [address] documented as of this encounter Procedures Procedure Name Priority Date/Time Associated Diagnosis Comments CONVERTED (HISTORICAL) SURGICAL PATHOLOGY Routine 03/23/2003 2:48 PM EDT documented in this encounter Results * Converted Surgical Pathology (03/23/2003 2:48 PM EDT) 03/23/2003 2:48 PM EDT [facility] LABORATORY - 03/24/2003 2:40 PM EDT [facility] SURGICAL PATHOLOGY REPORT Patient Name: LAUREN VILLA MR#: [id number] : 51 Gender: F Ordering Physician: CESAR VICTORIA Copy To: [facility] Endoscopy Location: OP Collected: 03/23/03 Received: 03/23/03 Reported: 03/24/03 Clinical Diagnosis and History The working history is dysphagia, GERD, esopahgeal candidiasis. Final Diagnosis 1. ?GASTRIC ANTRUM BIOPSIES: ? Mild chronic gastritis. ??Helicobacter organisms not identified. 2. ?ESOPHAGEAL BIOPSIES: ? Slight acute and chronic inflammation. Electronically Signed Out By Uday Colindres M.D. Specimen(s) Received: 1: Gastric Biopsy 2: Esophagus, biopsy Gross Description Specimen 1 labeled antrum biopsies consists of four soft che tissue biopsies 0.4 to 0.6 cm entirely submitted. Specimen 2 labeled esophagus biopsies consists of four soft che tissue biopsies 0.5 cm each entirely submitted. ??JM/blm Microscopic Description Sections of #1 show only slight chronic inflammation but there is definite reactive change and disorganization consistent with chronic gastritis. ??No atrophy, atypia or intestinal metaplasia is seen. ??Helicobacter forms are not seen on special stain. ??Controls stain appropriately. Sections of #2 show squamous epithelium with some reactive change but there is only rare slight chronic inflammation present. ??There is also only slight acanthosis and eosinophils are rare. ??Erosion is not seen and there is only slight acute inflammation. us See Report Interface PATHOLOGY/CYTOLOGY ORDERABL ES Final Result PSYCHIATRIC LABORATORY [address] [id number], documented in this encounter Visit Diagnoses Not on filedocumented in this encounter
--- OUTSIDE RECORDS SUMMARY | 2024-09-27 08:55 | XMS_ITS | Encounter Summary ---
Author Organization [facility] Address [address] [place] [address] Care Team Providers Care Labor Delivery Rn Name Role Phone Unavailable Primary Care Provider Unavailabl e Encounter Details Date Type Department Care Team (Late st Contact Info) Description 09/27/2014 Office Visit Converted [facility] [address] [place] [id number] Avinash Jerez MD Social History Tobacco Use [...] Sign Reading Time Taken Comments Blood Pressure 160/94 09/27/2014 10:10 AM EST Pulse - - Temperature - - Respiratory Rate - - Oxygen Saturation - - Inhaled Oxygen Concentration - - Weight 105 kg (232 lb 0.2 oz) 09/27/2014 10:10 A M EST Height 149.9 cm (4' 11 ) 09/27/2014 10:10 AM EST Body Mass Index 46.86 09/27/2014 10:10 AM EST documented in this encounter Progress Notes * Avinash Jerez MD - 09/27/2014 10:15 AM EST PCP/Referring Physician Primary Care Provider: SHANNON Elizabeth Chief Complaint 1. Seizure History of Present Illness HPI: With the initial switch from Keppra to Trileptal the patient had no more seizures they were all tonic, now on Trileptal 600 milligrams twice a day and Depakote 750 mg daily at bedtime she is seizure-free for 3 weeks now. Her tremor is unchanged but she also has now bronchitis Review of Systems Constitutional: negative. ENT: negative. Cardiovascular: negative. Respiratory: negative. Gastrointestinal: negative. Genitourinary: negative. Musculoskeletal: negative. Integumentary and Breasts: negative. Neurological: as noted in HPI. Psychiatric: negative. Active Problems 1. Chronic insomnia (780.52) ?? Assessed By: Avinash Jerez (Neurology); Last Assessed: 27 Sep 2014 2. Seizure disorder (345.90) ?? Assessed By: Avinash Jerez (Neurology); Last Assessed: 27 Sep 2014 3. Tremor (781.0) ?? Assessed By: Avinash Jerez (Neurology); Last Assessed: 27 Sep 2014 Past Medical History 1. History of [...] Hysterectomy Family History 1. Family history of Hypertension (V17.49) 2. Family history of Cancer 3. Family history of Diabetes Mellitus (V18.0) 4. Family history of Hypertension (V17.49) 5. Family history of Parkinson's Disease 6. Family history of Reported Family History Of Heart Disease Social History 1. Being A Social Drinker 2. Former smoker (V15.82) 3. Marital History - (V61.03) Current Meds Medication Name Instruction Advair Diskus 100-50 MCG/DOSE Inhalation Aerosol Powder Breath Activated Amitriptyline HCl - 50 MG Oral Tablet TAKE 1 TABLET AT BEDTIME. Aspirin Low Dose 81 MG Oral Tablet Divalproex Sodium 500 MG Oral Tablet Delayed Release take 1 tab QAM and 2 tab po QPM Lofibra 134 MG Oral Capsule Lortab 10-500 MG TABS Lovastatin 40 MG Oral Tablet Metoprolol Tartrate 25 MG Oral Tablet Mobic 7.5 MG Oral Tablet OXcarbazepine 300 MG Oral Tablet 2 tab po bid Oxybutynin Chloride 5 MG Oral Tablet Prevacid 30 MG Oral Capsule Delayed Release Promethazine HCl - 25 MG Oral Tablet Requip 1 MG Oral Tablet Synthroid 50 MCG Oral Tablet Allergies 1. Fosamax TABS 2. Penicillins 3. Sulfa Drugs Vitals Signs [Data Includes: Current Encounter] Systolic: 160 Diastolic: 94 Height: 4 ft 11 in Weight: 232 lb BMI Calculated: 46.86 BSA Calculated: 1.96 Physical Exam Constitutional General appearance: Normal. Cardiovascular [...] and rapid alternating movements. Deep tendon reflexes: Babinski reflex absent on the right, absent on the left. Musculoskeletal The gait and station were normal. Motor Strength: motor strength was normal in all muscle groups. Motor tone:. The muscle tone was normal. A rest tremor was observed in the right upper extremity and observed in the left upper extremity. A head tremor was observed. Discussion/Summary I will get a Depakote and Trileptal level today and will see the patient back in 3-4 months Reviewed lab tests . PCP records reviewed. Referring MD records reviewed . Assessment 1. Chronic insomnia (780.52) ?? Assessed By: Avinash Jerez (Neurology); Last Assessed: 27 Sep 2014 2. Seizure disorder (345.90) ?? Assessed By: Avinash Jerez (Neurology); Last Assessed: 27 Sep 2014 3. Tremor (781.0) ?? Assessed By: Avinash Jerez (Neurology); Last Assessed: 27 Sep 2014 Plan Tremor 1. Depakene ( Valproic Acid ); Status:Hold For - Specimen Collection and/or Additional Processing; Requested for:27Sep2014; Perform:To Be Determined Lab; Due:[id number]; Marked Important;Ordered; For:Tremor; Ordered By:Avinash Jerez; 2. Oxcarbazepine Metabolite; Status:Hold For - Specimen Collection and/or Additional Processing; Requested for:27Sep2014; Perform:To Be Determined Lab; Due:[id number]; Marked Important;Ordered; For:Tremor; Ordered By:Avinash Jerez; 3. Follow-up visit in 4 months Evaluation and Treatment Follow-up Status: Hold For - Scheduling Requested for: 27Sep2014 Ordered; For: Tremor; Ordered By: Avinash Jerez Performed: Due: [id number] End of Encounter Meds Medication Name Instruction Advair Diskus 100-50 MCG/DOSE Inhalation Aerosol Powder Breath Activated Amitriptyline HCl - 50 MG Oral Tablet TAKE 1 TABLET AT BEDTIME. Aspirin Low Dose 81 MG Oral Tablet Divalproex Sodium 500 MG Oral Tablet Delayed Release (Depakote) take 1 tab QAM and 2 tab po QPM Lofibra 134 MG Oral Capsule (Fenofibrate Micronized) Lortab 10-500 MG TABS (Hydrocodone-Acetaminophen) Lovastatin 40 MG Oral Tablet Metoprolol Tartrate 25 MG Oral Tablet Mobic 7.5 MG Oral Tablet (Meloxicam) OXcarbazepine 300 MG Oral Tablet 2 tab po bid Oxybutynin Chloride 5 MG Oral Tablet Prevacid 30 MG Oral Capsule Delayed Release (Lansoprazole) Promethazine HCl - 25 MG Oral Tablet Requip 1 MG Oral Tablet (ROPINIRole HCl) Synthroid 50 MCG Oral Tablet (Levothyroxine Sodium) Patient Care Team Care Labor Delivery Rn Role Specialty Office Number [place] The patient and patient's family was counseled regarding instructions for management, patient and family education, impressions, risks and benefits of treatment options and importance of compliance with treatment. Signatures Electronically signed by : Avinash Jerez M.D.; Sep 27 2014 10:31AM EST (Author) documented in this encounter Miscellaneous Notes * Letter - Avinash Jerez MD - 09/27/2014 10:15 AM EST Chief Complaint 1. Seizure History of Present Illness HPI: With the initial switch from Keppra to Trileptal the patient had no more seizures they were all tonic, now on Trileptal 600 milligrams twice a day and Depakote 750 mg daily at bedtime she is seizure-free for 3 weeks now. Her tremor is unchanged but she also has now bronchitis Review of Systems Constitutional: negative. ENT: negative. Cardiovascular: negative. Respiratory: negative. Gastrointestinal: negative. Genitourinary: negative. Musculoskeletal: negative. Integumentary and Breasts: negative. Neurological: as noted in HPI. Psychiatric: negative. Active Problems 1. Chronic insomnia (780.52) ?? Assessed By: Avinash Jerez (Neurology); Last Assessed: 27 Sep 2014 2. Seizure disorder (345.90) ?? Assessed By: Avinash Jerez (Neurology); Last Assessed: 27 Sep 2014 3. Tremor (781.0) ?? Assessed By: Avinash Jerez (Neurology); Last Assessed: 27 Sep 2014 Past Medical History ?? History of [...] Hysterectomy Family History ?? Family history of Hypertension (V17.49) ?? Family history of Cancer ?? Family [...] Aerosol Powder Breath Activated Amitriptyline HCl - 50 MG Oral Tablet TAKE 1 TABLET AT BEDTIME. Aspirin Low Dose 81 MG Oral Tablet Divalproex Sodium 500 MG Oral Tablet Delayed Release take 1 tab QAM and 2 tab po QPM Lofibra 134 MG Oral Capsule Lortab 10-500 MG TABS Lovastatin 40 MG Oral Tablet Metoprolol Tartrate 25 MG Oral Tablet Mobic 7.5 MG Oral Tablet OXcarbazepine 300 MG Oral Tablet 2 tab po bid Oxybutynin Chloride 5 MG Oral Tablet Prevacid 30 MG Oral Capsule Delayed Release Promethazine HCl - 25 MG Oral Tablet Requip 1 MG Oral Tablet Synthroid 50 MCG Oral Tablet Allergies 1. Fosamax TABS 2. Penicillins 3. Sulfa Drugs Vitals Signs [Data Includes: Current Encounter] Systolic: 160 Diastolic: 94 Height: 4 ft 11 in Weight: 232 lb BMI Calculated: 46.86 BSA Calculated: 1.96 Physical Exam Constitutional General appearance: Normal. Cardiovascular [...] and rapid alternating movements. Deep tendon reflexes: Babinski reflex absent on the right, absent on the left. Musculoskeletal The gait and station were normal. Motor Strength: motor strength was normal in all muscle groups. Motor tone:. The muscle tone was normal. A rest tremor was observed in the right upper extremity and observed in the left upper extremity. A head tremor was observed. Discussion/Summary I will get a Depakote and Trileptal level today and will see the patient back in 3-4 months Reviewed lab tests . PCP records reviewed. Referring MD records reviewed . Assessment 1. Chronic insomnia (780.52) ?? Assessed By: Avinash Jerez (Neurology); Last Assessed: 27 Sep 2014 2. Seizure disorder (345.90) ?? Assessed By: Avinash Jerez (Neurology); Last Assessed: 27 Sep 2014 3. Tremor (781.0) ?? Assessed By: Avinash Jerez (Neurology); Last Assessed: 27 Sep 2014 Plan Tremor ?? Depakene ( Valproic Acid ); Status:Hold For - Specimen Collection and/or Additional Processing; Requested for:27Sep2014; Perform:To Be Determined Lab; Due:[id number]; Marked Important;Ordered; For:Tremor; Ordered By:Avinash Jerez; ?? Oxcarbazepine Metabolite; Status:Hold For - Specimen Collection and/or Additional Processing; Requested for:27Sep2014; Perform:To Be Determined Lab; Due:[id number]; Marked Important;Ordered; For:Tremor; Ordered By:Avinash Jerez; ?? Follow-up visit in 4 months Evaluation and Treatment Follow-up Status: Hold For - Scheduling Requested for: 27Sep2014 Ordered; For: Tremor; Ordered By: Avinash Jerez Performed: Due: [id number] End of Encounter Meds Medication Name Instruction Advair Diskus 100-50 MCG/DOSE Inhalation Aerosol Powder Breath Activated Amitriptyline HCl - 50 MG Oral Tablet TAKE 1 TABLET AT BEDTIME. Aspirin Low Dose 81 MG Oral Tablet Divalproex Sodium 500 MG Oral Tablet Delayed Release (Depakote) take 1 tab QAM and 2 tab po QPM Lofibra 134 MG Oral Capsule (Fenofibrate Micronized) Lortab 10-500 MG TABS (Hydrocodone-Acetaminophen) Lovastatin 40 MG Oral Tablet Metoprolol Tartrate 25 MG Oral Tablet Mobic 7.5 MG Oral Tablet (Meloxicam) OXcarbazepine 300 MG Oral Tablet 2 tab po bid Oxybutynin Chloride 5 MG Oral Tablet Prevacid 30 MG Oral Capsule Delayed Release (Lansoprazole) Promethazine HCl - 25 MG Oral Tablet Requip 1 MG Oral Tablet (ROPINIRole HCl) Synthroid 50 MCG Oral Tablet (Levothyroxine Sodium) Patient Care Team Care Labor Delivery Rn Role Specialty Office Number [place] The patient and patient's family was counseled regarding instructions for management, patient and family education, impressions, risks and benefits of treatment options and importance of compliance with treatment. Signatures Electronically signed by : Avinash Jerez M.D.; Sep 27 2014 10:31AM EST (Author) documented in this encounter Plan of Treatment Upcoming Encounters Date Type Department Care Team (Late st Contact Info) Description 10/05/2024 12:30 PM EST Office Visit [facility] [address] [place] [address] Kailey Porras APRN 24 [facility] [place] [address] 10/05/2024 12:30 PM EST Clinical Support No Requirements [facility] [address] [place] [address] documented as of this encounter Visit Diagnoses Not on filedocumented in this encounter
--- OUTSIDE RECORDS SUMMARY | 2024-09-27 08:55 | XMS_ITS | Encounter Summary ---
Author Organization [facility] [employer] Address [address] [place] [address] Care Team Providers Care Electrical Calibrator Name Role Phone Marly Kumar NP Primary Care Provider [phone] Encounter Details Date Type Department Care Team (Late st Contact Info) Description 07/28/2020 Transcribed Document [facility] Family Medicine [address] [place] [address] ProviderMiya MD [address] [place] [address] Social History Tobacco Use Types Packs/Day Years Used Date Smoking Tobacco: Never Assessed Comments Unknown Sex and Gender Information Value Date Recorded Sex Assigned at Female 05/01/2022 3:59 PM CDT Legal Sex Female 1:54 PM CDT Gender Identity Female 05/01/2022 3:59 PM CDT Sexual Orientation Not on file documented as of this encounter Miscellaneous Notes * [employer] Conversion Note - Miya ProviderMD - 07/28/2020 10:08 AM CDT Patient Education Materials Follows: documented in this encounter Plan of Treatment Not on file documented as of this encounter Visit Diagnoses Not on filedocumented in this encounter Care Teams Electrical Calibrator Relationship Specialty Start Date End Date Marly Kumar NP [address] [place] [id number] PCP - General Nurse Practitioner 09/22/24 documented as of this encounter
--- OUTSIDE RECORDS SUMMARY | 2024-09-27 08:55 | XMS_ITS | Encounter Summary ---
Author Organization [facility] [employer] Address [address] [place] [address] Care Team Providers Care Environmental Conflict Manager Name Role Phone José Marly aKity RAZO Primary Care Provider [phone] Reason for Visit * Auth/Cert (Routine) Specialty Diagnoses / Procedures Referred By Nubia dawkins Referred To Contact Diagnoses Combined forms of age-related cataract of left eye SEE PRIMARY DX Procedures ND XCAPSL CTRC RMVL INSJ IO LENS PROSTH W/O ECP EXTRACTION, CATARACT, WITH IOL INSERTION [facility] Operating Room [address] [place] [phone] Phone: tel: fax: [facility] [address] [place] [phone] Phone: tel: fax: Referral ID Status Reason Start Date Expiration Date Visits Re quested Visits Authorized [id number] 1 1 Encounter Details Date Type Department Care Team (Late st Contact Info) Description 09/22/2024 2:27 PM EST - 09/22/2024 2:53 PM EST Surgery [facility] Operating Room [address] [place] [phone] Urmila So MD [address] [facility] [address] [place] [phone] PHACO IOL OS PC 21.50 Social History Tobacco Use Types Packs/Day Years [...] there are no changes to the H&P. [facility]O[employer] DE[employer]Y Source Note - Urmila So MD - [...] to Home Condition: Stable Urmila So MD [employer] documented in this encounter Plan of Treatment Not on file documented as of this encounter Procedures Procedure Name Priority Date/Time Associated Diagnosis Comments ND XCAPSL CTRC RMVL INSJ IO LENS PROSTH W/O ECP 09/22/2024 1:37 PM EST Combined forms of age-related cataract of left eye Case Notes 1215 Pacemaker documented in this encounter Visit Diagnoses Diagnosis Combined forms of age-related cataract of left eye documented in this encounter Administered Medications Inactive Administered Medications - up to 3 most recent administrations Medication Order MAR Action Action Date Dose Rate Site BSS with gentamicin, epinephrine and vancomycin ophthalmic irrigation ophthalmic, Once, On Mary 09/22/24 at 1230, For 1 dose, In the operative eye as per MD instructions during procedure, Intra-op Given 09/22/2024 1:42 PM EST 500 mLs Left Eye lidocaine PF (XYLOCAINE) 40 mg/mL (4 %) injection 40 mg 40 mg Once (1 mL), other - see admin instructions, On Mary 09/22/24 at 1230, For 1 dose, In the operative eye as per MD instructions during procedure, Intra-op Given 09/22/2024 1:42 PM EST 1 mL Left Eye ddqtrdsyc-tfhhnsfrsefp-PAY(PF ) 1-1.5 % syrg 1 mL 1 mL Once, ophthalmic, On Mary 09/22/24 at 1230, For 1 dose, In the operative eye as per MD instructions during procedure, Intra-op Given 09/22/2024 1:42 PM EST 1 mL Left Eye ofloxacin (OCUFLOX) ophthalmic solution 0.3% 1 drop [...] dose, In the operative eye as per instructions during procedure, Intra-op 1230 (Due)1342 (Give n - Provider: Urmila So MD) lidocaine PF (XYLOCAINE) 40 mg/mL (4 %) injection 40 mg (COMPLETED) 40 mg Once (1 mL), other - see admin instructions, On Mary 09/22/24 at 1230, For 1 dose, In the operative eye as per MD instructions during procedure, Intra-op 1230 (Due)1342 (Give n - Provider: Roxana Rider RN) zaekwmpxi-rmhkjneetrbh-XQB(PF) 1-1.5 % syrg 1 mL (COMPLETED) 1 [...] Pre-op 1318 (Given - Provid er: Chiquis Mccall, TIM) tetracaine (PF) ophthalmic drop 0.5% (COMPLETED) 1 drop Every hour, left eye, First dose on Mary 09/22/24 at 1230, For 2 doses, Instill drop prior to all other eye drops; Instill an additional drop on-call to OR (immediately before leaving pre-op area), Pre-op 1214 (Given - Provid er: Nery Matthew RN)1215 (Given - Provider: Nia Gage, TIM)1319 (Given - Provider: Chiquis Mccall, TIM) tropicamide (MYDRIACYL) ophthalmic solution 1% (COMPLETED) 1 drop Every 5 min, left eye, First dose on Mary 09/22/24 at 1230, For 3 doses, Pre-op 1215 (Given - Provid er: Nia Gage RN)1220 (Given - Provider: Nia Gage, TIM)1227 (Given - Provider: Nia Gage, TIM) Linked Groups Order Group 1: ofloxacin (OCUFLOX) [...] Intra-op documented in this encounter Care Teams Environmental Conflict Manager Relationship Specialty Start Date End Date Marly Kumar, DUNG [address] [place] [address] PCP - General Nurse Practitioner 09/22/24 documented as of this encounter
--- OUTSIDE RECORDS SUMMARY | 2024-09-27 08:55 | XMS_ITS | Encounter Summary ---
Author Organization [facility] [employer] Address [address] [place] [address] Care Team Providers Care Dental Laboratory Manager Name Role Phone Marly Kumar NP Primary Care Provider [phone] Encounter Details Date Type Department Care Team (Latest Contact Info) Description 09/22/2024 Travel Social History Tobacco Use Types Packs/Day Years [...] on filedocumented in this encounter Care Teams Dental Laboratory Manager Relationship Specialty Start Date End Date Marly Kumar NP [address] [place] [address] PCP - General Nurse Practitioner 09/22/24 documented as of this encounter
--- OUTSIDE RECORDS SUMMARY | 2024-09-27 08:55 | XMS_ITS | Clinical Summary ---
Author Organization [facility] Address [address] [place] [address] Care Team Providers Care Bar Tacker Name Role Phone Marly Kumar Kaity ROSENBERG Primary Care Provider [phone] Allergies Active Allergy Reactions Criticality Noted Date Comments Penicillins Hives,Itching,Unknow n - Low Severity 08/09/2013 Sulfa Antibiotics Unknown - Low Severity 2012 Medications aspirin 81 MG EC tablet Take 1 tablet by mouth Daily. Active atorvastatin (LIPITOR) 40 MG tablet Take 1 tablet by mouth every night at bedtime. Active budesonide-form oterol (SYMBICORT) 160-4.5 MCG/ACT inhaler Inhale 2 puffs 2 (Two) Times a Day. 05/18/2024 Active divalproex (DEPAKOTE ER) 500 MG 24 hr tablet Take 1 tablet by mouth 2 (Two) Times a Day. Active fenofibrate (TRICOR) 145 MG tablet Take 1 tablet by mouth every night at bedtime. Active hydrOXYzine (ATARAX) 25 MG tablet Take 1 tablet by mouth Every 6 (Six) Hours As Needed. Active levothyroxine (SYNTHROID, LEVOTHROID) 75 MCG tablet Take 1 tablet by mouth Daily. Active loratadine (CLARITIN) 10 MG tablet Take 1 tablet by mouth Daily. Active mirtazapine (REMERON) 30 MG tablet Take 1 tablet by mouth every night at bedtime. Active omeprazole (priLOSEC) 40 MG capsule Take 1 capsule by mouth Daily. Active tiZANidine (ZANAFLEX) 4 MG tablet TAKE 1/2 TABLET TO ONE TABLET EVERY SIX HOURS NEEDED FOR PAIN Active magnesium oxide (MAG-OX) 400 MG tabletIndicatio ns:Hypomagnesem ia Take 1 tablet by mouth Daily. 30 tablet 11 06/06/2024 Active midodrine (PROAMATINE) 2.5 MG tabletIndicatio ns:Hypotension due to drugs Take 1 tablet by mouth 2 (Two) Times a Day. 60 tablet 07/06/2024 Active potassium chloride 10 MEQ CR tablet TAKE ONE TABLET BY MOUTH EVERY DAY 30 tablet 08/15/2024 Active furosemide (LASIX) 20 MG tablet TAKE ONE TABLET BY MOUTH DAILY 30 tablet 08/15/2024 Active Active Problems Problem Noted Date Diagnosed Date Has a tremor 07/06/2024 Hospital discharge follow-up 07/06/2024 Assessment & Plan (07/06/2024 11:01 AM EDT): [facility] 06/30/2024 ER records reviewed. Patient was dehydrated and had acute renal failure. All diuretics and several blood pressure medications were stopped including her carvedilol. She has an appointment with Dr. Christiansen on 07/25/2024. Based on how patient's blood pressure is doing Dr. Christiansen may want to restart beta-hernando. Hypotension due to drugs 07/06/2024 Assessment & Plan (07/06/2024 11:01 AM EDT): Very labile blood pressure. Per Dr. Christiansen restart midodrine 2.5 mg twice daily to help compensate for restarting Lasix. Chronic low back pain 12/23/2023 Chronic obstructive pulmonary disease 08/19/2023 Hypothyroidism 08/19/2023 Gastroesophageal reflux disease without esophagi tis 08/19/2023 Hypertensive disorder 08/19/2023 Hypokalemia 08/19/2023 Hypomagnesemia 08/19/2023 Insomnia, persistent 08/19/2023 Seasonal allergies 08/19/2023 Automatic implantable cardiac defibrillator in s itu 02/25/2022 Benign essential hypertension 02/25/2022 Coronary atherosclerosis 02/25/2022 History of cardiac arrest 02/25/2022 Mixed hyperlipidemia 02/25/2022 Seizure disorder 02/25/2022 Localized edema 02/24/2017 Overview (07/06/2024): Problem Code: 782.3; Problem Code Type: ICD-9; Problem Code: R60.0; Problem Code Type: ICD-10; Assessment & Plan (07/06/2024 11:05 AM EDT): Will restart Lasix at a very low dose to help prevent hypotension or kidney injury. Will titrate up slowly and cautiously. Today will restart Lasix at 20 mg daily and potassium at 10 mEq daily. May need to recheck labs at follow-up. Patient has arterial duplex and follow-up already scheduled with Dr. Christiansen on 07/25/2024. Congestive heart failure 11/20/2016 Overview (07/06/2024): Problem Code: 428.0; Problem Code Type: ICD-9; Resolved Problems Problem Noted Date Diagnosed Date Resolved Date Localized swelling of head 11/12/2023 0 07/06/2024 Memory impairment 08/19/2023 07/06/2024 Acute on chronic systolic heart failure 11/20/2016 07/06/2024 Bronchopneumonia 11/20/2016 07/06/2024 Overview (07/06/2024): Problem Code: J18.0; Problem Code Type: ICD-10; Problem Code: J18.0; Problem Code Type: ICD-10; Pneumococcal pneumonia 11/20/201607/06 Overview (07/06/2024): Problem Code: 481; Problem Code Type: ICD-9; Problem Code: 481; Problem Code Type: ICD-9; Encounters Date Type Department Care Team Description 09/08/2024 Telephone [facility] [address] [place] [phone] Dinorah Christiansen MD 08/15/2024 Refill [facility] [address] [place] [phone] Kailey Porras APRN Med Refill 07/25/2024 2:30 PM EDT Ancillary Procedure [facility] [address] [place] [phone] PVD (peripheral vascular disease) with claudication 07/06/2024 10:00 AM EDT Office Visit [facility] [address] [place] [phone] Kailey Porras APRN Hospital discharge follow-up; Hypotension due to drugs; Localized edema from Last 3 Months Immunizations Name Administration Dates Next Due Fluzone >6mos 08/11/2014 Fluzone (or Fluarix & Flulav al for VFC) >6mos 08/18/2022 Influenza Seasonal Injectable 07/21/2012, 010,12/03/2006 Family History Relation Name Status Comments Brother 2 Alive Father Mother Sister Social History Tobacco Use Types Packs/Day Years [...] on file Sexual Orientation Not on file Last Filed Vital Signs Vital Sign Reading Time Taken Comments Blood Pressure 126/82 07/25/2024 2:17 PM EDT Pulse 73 07/06/2024 9:57 AM EDT Temperature - - Respiratory Rate - - Oxygen Saturation 99% 07/06/2024 9:57 AM EDT Inhaled Oxygen Concentration - - Weight 69.4 kg (153 lb) 07/25/2024 2:17 PM EDT Height 149.9 cm (4' 11 ) 07/25/2024 2:17 PM EDT Body Mass Index 30.9 07/25/2024 2:17 PM EDT Plan of Treatment Upcoming Encounters Date Type Department Care Team (Late st Contact Info) Description 10/05/2024 12:30 PM EST Office Visit [facility] [address] [place], [place] [phone] Kailey Porras APRN [address] [place] [address] 10/05/2024 12:30 PM EST Clinical Support No Requirements [facility] [address] [place], [place] [phone] Health Maintenance Due Date Last Done Comments BMI FOLLOWUP 1953 COLOGUARD 1953 COLON CANCER SCREENING 5 YEA R SIGMOIDOSCOPY 1953 COLONOSCOPY 1953 [address] CANCER SCREENING 1953 CT COLONOGRAPHY 1953 DXA SCAN 1953 FECAL OCCULT BLOOD TEST 1953 FIT Testing (1 year) 1953 LIPID PANEL 1953 Pneumococcal Vaccine 65+ (1 of 2 - PCV) 1959 TDAP/TD VACCINES (1 - Tdap) 1972 MAMMOGRAM 1993 ZOSTER VACCINE (1 of 2) 2003 ANNUAL WELLNESS VISIT 05/23/2024 HEPATITIS C SCREENING 05/23/2024 INFLUENZA VACCINE 06/02/2024 08/18/2022, , 07/21/2012, Additional history exists COVID-19 Vaccine ( - 2023-2 5 season) 2024 09/09/2021, 12/05/2020, 11/15/2020 Procedures Procedure Name Priority Date/Time Associated Diagnosis Comments DUPLEX LOWER EXTREMITY ART/GRAFTS BILATERAL CAR - COR/YARELY/MAD Routine 07/25/2024 2:59 PM EDT PVD (peripheral vascular disease) with claudication SCANNED EKG 06/29/2024 SCANNED - LABS 06/28/2024 SCANNED - IMAGING 06/28/2024 SCANNED - IMAGING 06/28/2024 from Last 3 Months Results * DUPLEX LOWER EXTREMITY ART/GRAFTS BILATERAL CAR - COR/YARELY/MAD (07/25/2024 2:59 PM EDT) Right Brachial Pressure 122 mmHg Left Brachial Pressure 126 mmHg RIGHT PRECIPITATOR PRESSURE 160 mmHg LEFT PRECIPITATOR PRESSURE 150 mmHg SFA Prox PSV-Right -105.0 cm/s SFA Mid PSV-Right -98.0 cm/s SFA Distal PSV-Right -91.7 cm/s Popiteal A Prox PSV-Right 85.8 cm/s Ant Tibial A Prox PSV-Right 67.9 cm/s Ant Tibial A Distal PSV-Right 67.9 cm/s SFA Prox PSV-Left -101.0 cm/s SFA Mid PSV-Left -80.5 cm/s SFA Distal PSV-Left -82.4 cm/s Popiteal A Prox PSV-Left 74.2 cm/s Right groin PRESSURE CONTROLLER sys 259.0 cm/sec Left groin PRESSURE CONTROLLER sys 113.0 cm/sec PRESSURE CONTROLLER Distal PSV-Right 259.00 cm/s DFA Prox PSV-Right 84.20 cm/s Rt. Tibeoperoneal PSV 89.50 cm/s PRECIPITATOR Distal PSV-Right 112.00 cm/s RIGHT ANDREA RATIO 1.31 LEFT ANDREA RATIO 1.19 PRESSURE CONTROLLER Distal PSV-Left 113.00 cm/s DFA Prox PSV-Left 89.50 cm/s Ant Tibial A Mid PSV-Left 51.80 cm/s Lt. Tibperoneal PSV 80.70 cm/s PRECIPITATOR Distal PSV-Left 82.40 cm/s Anatomical Region Laterality [...] Christiansen MD CV VASCULAR ORDERABLES Final Result * ECG Scan (06/29/2024) us Sarah Barclay APRN ECG ORDERABLES Final Re sult * IMAGING SCANNED (06/28/2024) Only the most recent of2 resultswithin the time period is included. Anatomical Region Laterality Modality Radiographic Dayanara ging us Sarah Barclay APRN IMG DIAGNOSTIC IMAGING O RDERABLES Final Result * LABS SCANNED (06/28/2024) us Sarah Barclay APRN LAB BLOOD ORDERABLES Fin al Result from Last 3 Months [place] [address] MEDICA[place] Care Teams Bar Tacker Relationship Specialty Start Date End Date Marly Kumar APRN [address] [place] [address] PCP - General Family Medicine 07/06/24
--- OUTSIDE RECORDS SUMMARY | 2024-09-27 08:55 | XMS_ITS | Encounter Summary ---
Author Organization [facility] Address [address] [place] [address] Care Team Providers Care Electric Meter Repairer Helper Name Role Phone Denis Jass Marlee ROSENBERG Primary Care Provider Reason for Referral * Diagnostic Imaging (Routine) - Closed Specialty Diagnoses / Procedures Referred By Contac t Referred To Contact Diagnoses PVD (peripheral vascular disease) with claudication Procedures Duplex Lower Extremity Art / Grafts - Bilateral CAR [place] [address] Phone: tel: fax: [facility] [address] [place] [address] Phone: tel: fax: Referral ID Status Reason Start Date Expiration Date Visits Re quested Visits Authorized [id number] Closed 06/06/2024 06/06/2025 1 1 Reason for Visit * Reason Comments Pacemaker Check ICD ARTIST AND REPERTOIRE MANAGER follow u p Coronary Artery Disease Encounter Details Date Type Department Care Team (Late st Contact Info) Description 06/06/2024 2:15 PM EDT Office Visit [facility] [place] [address] [place] [address] Coronary artery disease involving chicken ranch coronary artery of chicken ranch heart without angina pectoris (Primary Dx); PVD (peripheral vascular disease) with claudication; Hypomagnesemia; Hypotension due to drugs; ICD (implantable cardioverter-defibril lator), dual, in situ Social History Tobacco Use Types Packs/Day Years [...] Sign Reading Time Taken Comments Blood Pressure 86/62 06/06/2024 2:18 PM EDT Pulse 64 06/06/2024 2:13 PM EDT Temperature - - Respiratory Rate - - Oxygen Saturation 99% 06/06/2024 2:13 PM EDT Inhaled Oxygen Concentration - - Weight 68 kg (150 lb) 06/06/2024 2:13 PM EDT Height 149.9 cm (4' 11 ) 06/06/2024 2:13 PM EDT Body Mass Index 30.3 06/06/2024 2:13 PM EDT documented in this encounter Progress Notes * Dinorah Christiansen MD - 06/06/2024 2:15 PM EDTAssociated Order(s): ECG 12 Lead Post-Procedure Diagnose(s): Coronary artery disease involving chicken ranch coronary artery of chicken ranch heart without angina pectoris Images from the original note were not included. [facility] Provider Note Date: 06/06/2024 Name: Mu Perkins : 1955 PCP: Jass Barrios APRN Chief Complaint Patient presents with Pacemaker Check ICD CHECK ER follow up Coronary Artery Disease Subjective History of Present Illness Mu Perkins is a 68 y.o. female who presents today for follow-up. She has not seen us in about 2 years. She moved to [facility] for a while and now is living back here. She did get her defibrillator generator changed during that time. She is doing well except for some low blood pressures. She was in the hospital recently and underwent stress testing and echocardiogram. Both were reviewed. After the Lexiscan administration she became hypotensive and had also went ahead and takenher regular medicines for the day. She was observed and recovered with a small amount of fluid after that. No new chest pain. Just fatigue. No increase in shortness of breath. Lower extremity edema is present but stable. Lower extremity edema does not change throughout the day. She also has some leg cramping both at night and during the day with activity. Cardiac and sleep related history 1. Ischemic cardiomyopathy -Dual-chamber defibrillator [place]. 2. CAD -C 02/25/2016 LAD stents patent x 2, 40% [...] (Two) Times a Day., Disp: , Rfl: donepezil (ARICEPT) 5 MG tablet, Take 1 tablet by mouth every night at bedtime., Disp: , Rfl: fenofibrate (TRICOR) 145 MG tablet, Take 1 tablet by mouth every night at bedtime., Disp: , Rfl: furosemide (LASIX) 40 MG tablet, Take 1 tablet by mouth 3 (Three) Times a Day., Disp: , Rfl: hydrOXYzine (ATARAX) 25 MG tablet, Take 1 tablet by mouth Every 6 (Six) Hours As Needed., Disp: , Rfl: levothyroxine (SYNTHROID, LEVOTHROID) 75 MCG tablet, Take 1 tablet by mouth Daily., Disp: , Rfl: loratadine (CLARITIN) 10 MG tablet, Take 1 tablet by mouth Daily., Disp: , Rfl: mirtazapine (REMERON) 30 MG tablet, Take 1 tablet by mouth every night at bedtime., Disp: , Rfl: omeprazole (priLOSEC) 40 MG capsule, Take 1 capsule by mouth Daily., Disp: , Rfl: potassium chloride (KLOR-CON M20) 20 MEQ CR tablet, Take 1 tablet by mouth 3 (Three) Times a Day., Disp: , Rfl: tiZANidine (ZANAFLEX) 4 MG tablet, TAKE 1/2 TABLET TO ONE TABLET EVERY SIX HOURS NEEDED FOR PAIN, Disp: , Rfl: magnesium oxide (MAG-OX) 400 MG tablet, Take 1 tablet by mouth Daily., Disp: 30 tablet, Rfl: 11 Past Medical History: Diagnosis Date CAD (coronary artery disease) Carotid stenosis CHF (congestive heart failure) COPD (chronic obstructive pulmonary disease) Hyperlipidemia Hypertension Seizures Sleep apnea Past Surgical History: Procedure [...] Sexual activity: Defer Objective Vital Signs: BP (!) 86/62 Pulse 64 Ht 149.9 cm (59 ) Wt 68 kg (150 lb) SpO2 99% BMI 30.30 kg/m?? Estimated body mass index is 30.3 kg/m?? as calculated from the following: Height as of this encounter: 149.9 cm (59 ). Weight as of this encounter: 68 kg (150 lb). Physical Exam Constitutional: Appearance: Normal appearance. She is well-developed. HENT: Head: Normocephalic and atraumatic. Eyes: General: No scleral icterus. Pupils: Pupils are equal, round, and reactive to light. Cardiovascular: Rate and Rhythm: Normal rate and regular rhythm. Heart sounds: Normal heart sounds. No murmur heard. Pulmonary: Breath sounds: Normal breath sounds. No wheezing or rhonchi. Musculoskeletal: Right lower leg: Edema (+1) present. Left lower leg: Edema (+1) present. Skin: Capillary Refill: Capillary refill takes less than 2 seconds. Coloration: Skin is not cyanotic. Nails: There is no clubbing. Neurological: Mental Status: She is alert and oriented to person, place, and time. Motor: No weakness. Gait: Gait normal. Psychiatric: Mood and Affect: Mood normal. Behavior: Behavior is cooperative. Thought Content: Thought content normal. Cognition and Memory: Memory normal. ECG 12 Lead Date/Time: 06/06/2024 3:07 PM Performed by: Dinorah Christiansen MD Authorized by: Dinorah Christiansen MD Comparison: compared with previous ECG from 05/16/2024 Similar to previous ECG Rhythm: sinus rhythm Rate: normal Conduction: conduction normal ST Segments: ST segments normal T Waves: T waves normal QRS axis: normal Other: no other findings Clinical impression: normal ECG Assessment and Plan Diagnoses and all orders for this visit: 1. Coronary artery disease involving chicken ranch coronary artery of chicken ranch heart without angina pectoris(Primary) Comments: Stress test low risk. Continue medical therapy. Troponins normal after hypotensive episode confirming stress test is false positive. Orders: - ECG 12 Lead 2. PVD (peripheral vascular disease) with claudication Comments: Plan arterial duplex for cramping. Suspect may be related to some neuropathy as well. Orders: - Duplex Lower Extremity Art / Grafts - Bilateral CAR; Future 3. Hypomagnesemia Comments: From labs in the [facility] emergency room. Start magnesium. May help cramping. Orders: - magnesium oxide (MAG-OX) 400 MG tablet; Take 1 tablet by mouth Daily. Dispense: 30 tablet; Refill: 11 4. Hypotension due to drugs Comments: Continued low blood pressure today. Stop carvedilol and monitor blood pressure at home. 5. ICD (implantable cardioverter-defibrillator), dual, in situ Comments: Good battery life and lead function. Will try to get an hour remote monitoring now that she has midback. Follow Up Return in about 6 weeks (around 07/18/2024) for PM/ICD check. Dinorah Christiansen MD 06/06/2024 Please note that this explicitly excludes time [...] Description 10/05/2024 12:30 PM EST Office Visit [facility] [place] [place] [address] Kailey Porras APRN [address] [place] [address] 10/05/2024 12:30 PM EST Clinical Support No Requirements [facility] [address] [place] [address] documented as of this encounter Procedures Procedure Name Priority Date/Time Associated Diagnosis Comments ECG 12-LEAD Routine 06/06/2024 3:07 PM EDT Coronary artery disease involving chicken ranch coronary artery of chicken ranch heart without angina pectoris documented in this encounter Results * DUPLEX LOWER EXTREMITY ART/GRAFTS BILATERAL CAR - COR/YARELY/MAD (07/25/2024 2:59 PM EDT) Right Brachial Pressure 122 mmHg Left Brachial Pressure 126 mmHg RIGHT NARROW FABRIC LOOM FIXER PRESSURE 160 mmHg LEFT NARROW FABRIC LOOM FIXER PRESSURE 150 mmHg SFA Prox PSV-Right -105.0 cm/s SFA Mid PSV-Right -98.0 cm/s SFA Distal PSV-Right -91.7 cm/s Popiteal A Prox PSV-Right 85.8 cm/s Ant Tibial A Prox PSV-Right 67.9 cm/s Ant Tibial A Distal PSV-Right 67.9 cm/s SFA Prox PSV-Left -101.0 cm/s SFA Mid PSV-Left -80.5 cm/s SFA Distal PSV-Left -82.4 cm/s Popiteal A Prox PSV-Left 74.2 cm/s Right groin PROFESSOR [employer] SP[employer] sys 259.0 cm/sec Left groin PROFESSOR [employer] sys 113.0 cm/sec PROFESSOR OF SPANISH Distal PSV-Right 259.00 cm/s DFA Prox PSV-Right 84.20 cm/s Rt. Tibeoperoneal PSV 89.50 cm/s NARROW FABRIC LOOM FIXER Distal PSV-Right 112.00 cm/s RIGHT ANDREA RATIO 1.31 LEFT ANDREA RATIO 1.19 PROFESSOR OF SPANISH Distal PSV-Left 113.00 cm/s DFA Prox PSV-Left 89.50 cm/s Ant Tibial A Mid PSV-Left 51.80 cm/s Lt. Tibperoneal PSV 80.70 cm/s NARROW FABRIC LOOM FIXER Distal PSV-Left 82.40 cm/s Anatomical Region Laterality [...] CV VASCULAR ORDERABLES Final Result * ECG 12-LEAD (06/06/2024 3:07 PM EDT) Narrative Dinorah Christiansen MD - 06/06/2024 3:07 PM EDT Dinorah Christiansen MD ? 06/07/2024 10:32 AM ECG 12 Lead Date/Time: 06/06/2024 3:07 PM Performed by: Dinorah Christiansen MD Authorized by: Dinorah Christiansen MD ??Comparison: compared with previous ECG from 05/16/2024 Similar to previous ECG Rhythm: sinus rhythm Rate: normal Conduction: conduction normal ST Segments: ST segments normal T Waves: T waves normal QRS axis: normal Other: no other findings Clinical impression: normal ECG Dinorah Christiansen MD ECG ORDERABLES Final Result documented in this encounter Visit Diagnoses Diagnosis Coronary artery disease involving chicken ranch coronary artery of chicken ranch heart without angina pectoris- Primary PVD (peripheral vascular disease) with claudication Unspecified peripheral vascular disease Hypomagnesemia Disorders of magnesium metabolism Hypotension due to drugs Other iatrogenic hypotension ICD (implantable cardioverter-defibrillator), dual, in situ PVD (peripheral vascular disease) with claudication Unspecified peripheral vascular disease documented in this encounter Care Teams Electric Meter Repairer Helper Relationship Specialty Start Date End Date Jass Barrios APRN [address] [place] [address] PCP - General Nurse Practitioner 05/24/24 07/05/24 documented as of this encounter
--- OUTSIDE RECORDS SUMMARY | 2024-09-27 08:55 | XMS_ITS | Encounter Summary ---
Author Organization [facility] Address [address] [place] [address] Care Team Providers Care Tenter Name Role Phone Unavailable Primary Care Provider Unavailabl e Encounter Details Date Type Department Care Team (Late st Contact Info) Description 08/09/2014 Office Visit Converted [facility] [address] [place] [id number] Avinash Jerez MD Social History Tobacco Use Types Packs/Day Years Used Date Smoking Tobacco: Never Assessed Comments Unknown Sex and Gender Information Value Date Recorded Sex Assigned at Not on file Legal Sex Female 10:34 AM EDT Gender Identity Not on file Sexual Orientation Not on file documented as of this encounter Progress Notes * Avinash Jerez MD - 08/09/2014 10:00 AM EDT PCP/Referring Physician Primary Care Provider: Dr. Garrett Payne Chief Complaint 1. Headache 2. Seizure History of Present Illness HPI: The patient had several seizures since I saw her last 4 in succession on the and 1-2 on July 24. She also has increased head tremor and she continues to have her tremor in both arms. Review of Systems Constitutional: negative. ENT: negative. Cardiovascular: negative. Respiratory: negative. Gastrointestinal: negative. Genitourinary: negative. Musculoskeletal: negative. Integumentary and Breasts: negative. Neurological: as noted in HPI. Psychiatric: negative. Active Problems 1. Seizure disorder (345.90) ?? Assessed By: Avinash Jerez (Neurology); Last Assessed: 09 Aug 2014 2. Tremor (781.0) ?? Assessed By: Avinash Jerez (Neurology); Last Assessed: 09 Aug 2014 Past Medical History 1. History of [...] tab QAM and 2 tab po QPM LevETIRAcetam 1000 MG Oral Tablet 1 tab po BID Lofibra 134 MG Oral Capsule Lortab 10-500 [...] Fosamax TABS 2. Penicillins 3. Sulfa Drugs Physical Exam Constitutional General appearance: Normal. Cardiovascular [...] head tremor was observed. Discussion/Summary I will switch the patient over from Keppra to Trileptal since it still seems to be ineffective and I cannot change the dose of Depakote as it appears the only effective medication at this time. She will reduce Keppra by half a tablet every week and instead increase Trileptal by 1 tablet every week up to 2 tablets twice a day. Reviewed lab tests . Referring MD records reviewed . Assessment 1. Tremor (781.0) ?? Assessed By: Avinash Jerez (Neurology); Last Assessed: 09 Aug 2014 2. Seizure disorder (345.90) ?? Assessed By: Avinash Jerez (Neurology); Last Assessed: 09 Aug 2014 3. Chronic insomnia (780.52) ?? Assessed By: Avinash Jerez (Neurology); Last Assessed: 09 Aug 2014 Plan Chronic insomnia 1. Changed: From Amitriptyline HCl - 100 MG Oral Tablet To Amitriptyline HCl - 50 MG Oral Tablet TAKE 1 TABLET AT BEDTIME Rx By: Avinash Jerez; Dispense: 30 Days ; #:30 Tablet; Refill: 6; For: Chronic insomnia; DENISA = N;Record Seizure disorder 2. Start: OXcarbazepine 300 MG Oral Tablet; 2 tab po BID Rx By: Avinash Jerez; Dispense: 0 Days ; #:120 Tablet; Refill: 1; For: Seizure disorder; DENISA = N;Sent To: [facility] 3. Follow-up visit in 6 weeks Evaluation and Treatment Follow-up Status: Hold For - Scheduling Requested for: 09Aug2014 Ordered; For: Seizure disorder; Ordered By: Avinash Jerez Performed: Due: 14Aug2014 End of Encounter Meds Medication Name Instruction Advair Diskus 100-50 MCG/DOSE Inhalation Aerosol Powder Breath Activated Amitriptyline HCl - 50 MG Oral Tablet TAKE 1 TABLET AT BEDTIME. Aspirin Low Dose 81 MG Oral Tablet Divalproex Sodium 500 MG Oral Tablet Delayed Release (Depakote) take 1 tab QAM and 2 tab po QPM LevETIRAcetam 1000 MG Oral Tablet 1 tab po BID Lofibra 134 MG Oral Capsule (Fenofibrate Micronized) Lortab 10-500 MG TABS (Hydrocodone-Acetaminophen) Lovastatin 40 MG Oral Tablet Metoprolol Tartrate 25 MG Oral Tablet Mobic 7.5 MG Oral Tablet (Meloxicam) OXcarbazepine 300 MG Oral Tablet 2 tab po BID Oxybutynin Chloride 5 MG Oral Tablet Prevacid 30 MG Oral Capsule Delayed Release (Lansoprazole) Promethazine HCl - 25 MG Oral Tablet Requip 1 MG Oral Tablet (ROPINIRole HCl) Synthroid 50 MCG Oral Tablet (Levothyroxine Sodium) Patient Care Team Care Tenter Role Specialty Office Number [place] The patient was counseled regarding instructions for management, patient and family education, impressions, risks and benefits of treatment options and importance of compliance with treatment. Signatures Electronically signed by : Avinash Jerez M.D.; Aug 09 2014 10:19AM EST (Author) documented in this encounter Miscellaneous Notes * Letter - Avinash Jerez MD - 08/09/2014 10:00 AM EDT Chief Complaint 1. Headache 2. Seizure History of Present Illness HPI: The patient had several seizures since I saw her last 4 in succession on the and 1-2 on July 24. She also has increased head tremor and she continues to have her tremor in both arms. Review of Systems Constitutional: negative. ENT: negative. Cardiovascular: negative. Respiratory: negative. Gastrointestinal: negative. Genitourinary: negative. Musculoskeletal: negative. Integumentary and Breasts: negative. Neurological: as noted in HPI. Psychiatric: negative. Active Problems 1. Seizure disorder (345.90) ?? Assessed By: Avinash Jerez (Neurology); Last Assessed: 09 Aug 2014 2. Tremor (781.0) ?? Assessed By: Avinash Jerez (Neurology); Last Assessed: 09 Aug 2014 Past Medical History ?? History of [...] tab QAM and 2 tab po QPM LevETIRAcetam 1000 MG Oral Tablet 1 tab po BID Lofibra 134 MG Oral Capsule Lortab 10-500 [...] Fosamax TABS 2. Penicillins 3. Sulfa Drugs Physical Exam Constitutional General appearance: Normal. Cardiovascular [...] head tremor was observed. Discussion/Summary I will switch the patient over from Keppra to Trileptal since it still seems to be ineffective and I cannot change the dose of Depakote as it appears the only effective medication at this time. She will reduce Keppra by half a tablet every week and instead increase Trileptal by 1 tablet every week up to 2 tablets twice a day. Reviewed lab tests . Referring MD records reviewed . Assessment 1. Tremor (781.0) ?? Assessed By: Avinash Jerez (Neurology); Last Assessed: 09 Aug 2014 2. Seizure disorder (345.90) ?? Assessed By: Avinash Jerez (Neurology); Last Assessed: 09 Aug 2014 3. Chronic insomnia (780.52) ?? Assessed By: Avinash Jerez (Neurology); Last Assessed: 09 Aug 2014 Plan Chronic insomnia ?? Changed: Amitriptyline HCl - 100 MG Oral Tablet To Amitriptyline HCl - 50 MG Oral Tablet TAKE 1 TABLET AT BEDTIME Rx By: Avinash Jerez; Dispense: 30 Days ; #:30 Tablet; Refill: 6; For: Chronic insomnia; DENISA = N;Record Seizure disorder ?? Start: 300 MG Oral Tablet; 2 tab po BID Rx By: Avinash Jerez; Dispense: 0 Days ; #:120 Tablet; Refill: 1; For: Seizure disorder; DENISA = N;Sent To: [facility] ?? Follow-up visit in 6 weeks Evaluation and Treatment Follow-up Status: Hold For - Scheduling Requested for: 09Aug2014 Ordered; For: Seizure disorder; Ordered By: Avinash Jerez Performed: Due: 14Aug2014 End of Encounter Meds Medication Name Instruction Advair Diskus 100-50 MCG/DOSE Inhalation Aerosol Powder Breath Activated Amitriptyline HCl - 50 MG Oral Tablet TAKE 1 TABLET AT BEDTIME. Aspirin Low Dose 81 MG Oral Tablet Divalproex Sodium 500 MG Oral Tablet Delayed Release (Depakote) take 1 tab QAM and 2 tab po QPM LevETIRAcetam 1000 MG Oral Tablet 1 tab po BID Lofibra 134 MG Oral Capsule (Fenofibrate Micronized) Lortab 10-500 MG TABS (Hydrocodone-Acetaminophen) Lovastatin 40 MG Oral Tablet Metoprolol Tartrate 25 MG Oral Tablet Mobic 7.5 MG Oral Tablet (Meloxicam) OXcarbazepine 300 MG Oral Tablet 2 tab po BID Oxybutynin Chloride 5 MG Oral Tablet Prevacid 30 MG Oral Capsule Delayed Release (Lansoprazole) Promethazine HCl - 25 MG Oral Tablet Requip 1 MG Oral Tablet (ROPINIRole HCl) Synthroid 50 MCG Oral Tablet (Levothyroxine Sodium) Patient Care Team Care Tenter Role Specialty Office Number GARRETT PAYNE The patient was counseled regarding instructions for management, patient and family education, impressions, risks and benefits of treatment options and importance of compliance with treatment. Signatures Electronically signed by : Avinash Jerez M.D.; Aug 09 2014 10:19AM EST (Author) documented in this encounter Plan of Treatment Upcoming Encounters Date Type Department Care Team (Late st Contact Info) Description 10/05/2024 12:30 PM EST Office Visit [facility] [address] [place] [address] Kailey Porras APRN [address] [facility] [place] [address] 10/05/2024 12:30 PM EST Clinical Support No Requirements [facility] [address] [place] [address] documented as of this encounter Visit Diagnoses Not on filedocumented in this encounter
--- OUTSIDE RECORDS SUMMARY | 2024-09-27 08:55 | XMS_ITS | Encounter Summary ---
Author Organization [facility] Address [address] [place] [address] Care Team Providers Care Front End Specialist Name Role Phone Marly Kumar Kaity ROSENBERG Primary Care Provider [phone] Reason for Visit * Reason Comments Med Refill Encounter Details Date Type Department Care Team (Late st Contact Info) Description 08/15/[address] [facility] [address] [place] [address] Kailey Porras APRN [address] [place], [place] [id number] Med Refill Social History Tobacco Use Types Packs/Day Years [...] Visit [facility] [place] [address] Kailey Porras APRN [address] [place] [address] 10/05/2024 12:30 PM EST Clinical Support No Requirements [facility] [place] [address] documented as of this encounter Visit Diagnoses Not on filedocumented in this encounter Care Teams Front End Specialist Relationship Specialty Start Date End Date Marly Kumar APRN [address] [place] [id number] PCP - General Family Medicine 07/06/24 documented as of this encounter
--- OUTSIDE RECORDS SUMMARY | 2024-09-27 08:55 | XMS_ITS | Encounter Summary ---
Author Organization [facility] [employer] Address [address] [place] [address] Care Team Providers Care Target Aircraft Technician Name Role Phone Marly Kumar COLLECTION CORRESPONDENT Primary Care Provider [phone] Encounter Details Date Type Department Care Team (Late st Contact Info) Description 07/27/2020 Transcribed Document [facility] Family Medicine [address] [place] [address] ProviderMiya MD [address] [id number] Social History Tobacco Use Types Packs/Day Years [...] Conversion Note - Miya ProviderMD - 07/27/2020 12:35 PM CDT UM Authorization Entered On: 07/27/2020 12:35 EDT Performed On: 07/27/2020 12:35 EDT by DRISS DEL REAL RN Primary Insurance Authorization Authorization and Policy Numbers : Insurance 1 Health Plan: MEDICARE Policy Number: [id number] Authorization Number: Insurance 2 Health Plan: MEDICAID [facility] Policy Number: [id number] Authorization Number: Insurance Primary Name : MEDICARE Policy Number: [id number] Authorized Service Begin Date-Primary : 07/26/2020 EDT Historical Authorization Comments-Primary : No Authorization Comments Found DRISS DEL REAL RN - 07/27/2020 12:35 EDT documented in this encounter Plan of Treatment Not on file documented as of this encounter Visit Diagnoses Not on filedocumented in this encounter Care Teams Target Aircraft Technician Relationship Specialty Start Date End Date Marly Kumar NP [address] [place] [address] PCP - General Nurse Practitioner 09/22/24 documented as of this encounter
--- OUTSIDE RECORDS SUMMARY | 2024-09-27 08:55 | XMS_ITS | Encounter Summary ---
Author Organization [facility] Address [address] [place] [address] Care Team Providers Care Vision Specialist Name Role Phone Unavailable Primary Care Provider Unavailabl e Encounter Details Date Type Department Care Team (Late st Contact Info) Description 04/19/2014 Documentation Converted [facility] HISTORICAL CONV [address] [place] [address] ProviderMiya MD [address] [place] [address] Social History Tobacco Use Types Packs/Day Years Used Date Smoking Tobacco: Never Assessed Comments Unknown Sex and Gender Information Value Date Recorded Sex Assigned at Not on file Legal Sex Female 10:34 AM EDT Gender Identity Not on file Sexual Orientation Not on file documented as of this encounter Miscellaneous Notes * Telephone Encounter - Interface, See Report - 04/19/2014 9:33 AM EDT Message Recorded as Task Date: 04/18/2014 08:33 AM, Created By: Avinash Jerez Task Name: Test Result Assigned To: Jennie Briscoe Regarding Patient: ZAKIYA VILLA, Status: Active Comment: Avinash Jerez - 18 Apr 2014 8:33 AM TASK CREATED ammonia level is high. repeat in 1 week w LFT's. mailed letter to patient with lab order to have labs re-drawn in a week Signatures Electronically signed by : Jennie Briscoe, ; Apr 19 2014 9:34AM EST (Author) documented in this encounter Plan of Treatment Upcoming Encounters Date Type Department Care Team (Late st Contact Info) Description 10/05/2024 12:30 PM EST Office Visit [facility] CARDIOLOGY [address] [place], [place] [address] Kailey Porras APRN [address] [place] [address] 10/05/2024 12:30 PM EST Clinical Support No Requirements [facility] C[facility] [address] [place], [place] [address] documented as of this encounter Visit Diagnoses Not on filedocumented in this encounter
--- OUTSIDE RECORDS SUMMARY | 2024-09-27 08:55 | XMS_ITS | Encounter Summary ---
Author Organization [facility] Address [address] [place] [address] Care Team Providers Care Protective Signal Operations Supervisor Name Role Phone Unavailable Primary Care Provider Unavailabl e Encounter Details Date Type Department Care Team (Late st Contact Info) Description 10/12/2013 Office Visit Converted [facility] NEUROLOGY [address] [place], [place] [id number] Avinash Jerez MD Social History Tobacco Use [...] Sign Reading Time Taken Comments Blood Pressure 121/67 10/12/2013 10:55 AM EST Pulse - - Temperature - - Respiratory Rate - - Oxygen Saturation - - Inhaled Oxygen Concentration - - Weight 98.4 kg (217 lb) 10/12/2013 10:55 AM EST Height 149.9 cm (4' 11 ) 10/12/2013 10:55 AM EST Body Mass Index 43.83 10/12/2013 10:55 AM EST documented in this encounter Progress Notes * Avinash Jerez MD - 10/12/2013 10:15 AM EST PCP/Referring Physician Primary Care Provider: Dr. Marianela Payne Chief Complaint 1. Seizure History of Present Illness HPI: the patient has had no seizures for 2 months on depakote 750 BID. the tremor has not worsend, but also not improved. Review of Systems Constitutional: negative. ENT: negative. [...] 1/2 TABLETS TWICE DAILY; Therapy: 09Aug2013 to (Evaluate:[id number]) Requested for: 30Aug2013; Last Rx:30Aug2013 6. Lofibra 134 MG Oral Capsule; Therapy: [...] Vitals Signs [Data Includes: Current Encounter] Systolic: 121, Diastolic: 67, BMI Calculated: 43.75, BSA Calculated: 1.91, Height: 4 ft 11 in, Weight: 217 lb Physical Exam Constitutional General appearance: Normal. [...] An intention tremor was observed on the right and observedon the left. A rest tremor was observed in the right upper extremity and observed in the left upperextremity. An action tremor was observed on the right and observed on the left. Assessment 1. 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 Tremor 781.0 Plan Epilepsy And Recurrent Seizures (345.90), Tremor (781.0) ?? Follow-up visit in 4 months Evaluation and Treatment Follow-up Requested for: [id number] ?? Ammonia Level Requested for: [id number] ?? Depakene ( Valproic Acid ) Requested for: [id number] Discussion/Summary I would like the patient to be seizure free for another 3 months until I consider adjusting her medications if the tremor is still a problem. Ordered lab tests . PCP records reviewed. Referring MD records reviewed . The patient and patient's family was counseled regarding instructions for management, patient and family education, impressions, risks and benefits of treatment options and importance of compliance with treatment. Total time of encounter was 35 minutes and 20 minutes was spent counseling. Signatures Electronically signed by : Avinash Jerez M.D.; Oct 12 2013 11:07AM (Author) documented in this encounter Miscellaneous Notes * Letter - Avinash Jerez MD - 10/12/2013 10:[address] Marianela Payne, Chief Complaint 1. Seizure History of Present Illness HPI: the patient has had no seizures for 2 months on depakote 750 BID. the tremor has not worsend, but also not improved. Review of Systems Constitutional: negative. ENT: negative. [...] 1/2 TABLETS TWICE DAILY; Therapy: 09Aug2013 to (Evaluate:[id number]) Requested for: 30Aug2013; Last Rx:30Aug2013 6. Lofibra 134 MG Oral Capsule; Therapy: [...] Vitals Signs [Data Includes: Current Encounter] Systolic: 121, Diastolic: 67, BMI Calculated: 43.75, BSA Calculated: 1.91, Height: 4 ft 11 in, Weight: 217 lb Physical Exam Constitutional General appearance: Normal. [...] An intention tremor was observed on the right and observedon the left. A rest tremor was observed in the right upper extremity and observed in the left upperextremity. An action tremor was observed on the right and observed on the left. Assessment 1. 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 Tremor 781.0 Plan Epilepsy And Recurrent Seizures (345.90), Tremor (781.0) ?? Follow-up visit in 4 months Evaluation and Treatment Follow-up Requested for: [id number] ?? Ammonia Level Requested for: [id number] ?? Depakene ( Valproic Acid ) Requested for: [id number] Discussion/Summary I would like the patient to be seizure free for another 3 months until I consider adjusting her medications if the tremor is still a problem. Ordered lab tests . PCP records reviewed. Referring MD records reviewed . The patient and patient's family was counseled regarding instructions for management, patient and family education, impressions, risks and benefits of treatment options and importance of compliance with treatment. Total time of encounter was 35 minutes and 20 minutes was spent counseling. Signatures Electronically signed by : Avinash Jerez M.D.; Oct 12 2013 11:07AM (Author) documented in this encounter Plan of Treatment Upcoming Encounters Date Type Department Care Team (Late st Contact Info) Description 10/05/2024 12:30 PM EST Office Visit [facility] CARDIOLOGY [address] [place] [address] [place] [address] Kailey Porras APRN [address] [place] [address] 10/05/2024 12:30 PM EST Clinical Support No Requirements [facility] C[facility]IOLOG[facility] [address] [place] [address] [place] [address] documented as of this encounter Visit Diagnoses Not on filedocumented in this encounter
--- OUTSIDE RECORDS SUMMARY | 2024-09-27 08:56 | XMS_ITS | Encounter Summary ---
Author Organization [facility] Address [address] [place] [address] Care Team Providers Care Striping Machine Operator Name Role Phone Marly Kumar AUTO BODY MECHANIC APPRENTICE Primary Care Provider [phone] Encounter Details Date Type Department Care Team (Late st Contact Info) Description 07/27/2020 Transcribed Document [facility] [place] [address] [place] [address] ProviderMiya MD [address] [place] [phone] Social History Tobacco Use Types Packs/Day Years [...] Conversion Note - Miya ProviderMD - 07/27/2020 8:45 AM CDT DATE OF SERVICE: 07/26/2020 REPORT TYPE: EEG REFERRING PHYSICIAN: Rad Duong MD REPORT TITLE: Video Electroencephalogram Report STUDY DURATION: One day. 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 EEG VIDEO MONITORING METHODOLOGY: Time-locked EEG-video monitoring was performed using the 32-channel [employer] monitoring system. The seizure detection computer was [...] SAMPLES: The recording was reviewed. During wakefulness, 8 to 9 Hz activity is seen posteriorly. Lower amplitude faster activity in the beta range is seen with a wider distribution. 4 to 6 Hz theta waves are seen at F7-T7 and F8-T8, more commonly in the former. At times, the slow waves have a wider field of distribution involving Fp1-F3 and Fp2-F4 respectively. During sleep, sleep spindles are seen in both hemispheres. SPIKE DETECTION: The spike detection program was activated during the period of monitoring and revealed no abnormal paroxysmal activity. EEG DIAGNOSIS: This is an abnormal video EEG study because of: 1. Slow wave activity noted independently at F7-T7 and F8-T8, overall more commonly in the former. 2. Intermittent slowing of the background. CLINICAL INTERPRETATION: There was no event reported during the period of monitoring. Continuous EEG recordings showed no electrographic ictal discharge or other epileptiform abnormality. This video EEG study therefore provides no evidence to support the diagnosis of epilepsy. However, that diagnosis cannot be excluded, particularly in the absence of a recorded event. EEG recordings showed slow-wave activity independently in the anterior temporal electrodes in both hemispheres, more commonly on the left, indicative of focal cerebral dysfunction in the anterior temporal regions, more prominent on the left. Additionally, intermittent slowing of the background was noted suggestive of mild diffuse cerebral dysfunction. /[id number] MD RAPHAEL Esquivel/AQ / TAF / MODL /[id number] documented in this encounter Plan of Treatment Not on file documented as of this encounter Visit Diagnoses Not on filedocumented in this encounter Care Teams Striping Machine Operator Relationship Specialty Start Date End Date Marly Kumar, AUTO BODY MECHANIC APPRENTICE [address] [place] [address] PCP - General Nurse Practitioner 09/22/24 documented as of this encounter
--- OUTSIDE RECORDS SUMMARY | 2024-09-27 08:56 | XMS_ITS | Encounter Summary ---
Author Organization [facility] Address [address] [id number] Care Team Providers Care Bar Waiter/Waitress Name Role Phone Pcp, No Primary Care Provider Unavailabl e Reason for Visit * Reason Onset Date Comments HCN Clinical Concern/Question 08/13/2023 HCN - Patient Message 08/13/2023 Encounter Details Date Type Department Care Team (Late st Contact Info) Description 08/13/[address] [facility] General Surgery [address] [place] [address] Peace Schmitt MD [address] [place] [address] HCN Clinical Concern/Question; HCN - Patient Message Social History Tobacco Use Types Packs/Day Years Used Date Smoking Tobacco: Former Cigarettes Smokeless Tobacco: Never Alcohol Use Standard Drinks/Week Comments Not Currently 0 (1 standard drink = 0.6 oz pur e alcohol) CAGE ASSESSMENT Answer Date Recorded Cage unable to access Not on file 08/08/2023 Cage max number of drinks Not on file 2022 Cage Beverages a week Not on file 08/08/2023 Have you ever felt you should CUT down on your d rinking? 0 08/08/2023 Have you been ANNOYED by people criticizing your drinking? 0 08/08/2023 Have you felt GUILTY about your drinking? 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 0 08/08/2023 CAGE Questionnaire Score 0 023 Comments Unknown Sex and Gender Information Value Date Recorded Sex Assigned at Not on file Legal Sex Female 7:19 PM EDT Gender Identity Not on file Sexual Orientation Not on file documented as of this encounter Functional Status * Are you deaf or do you have serious difficulty hearing? Answer Date of Assessment Author No 08/08/2023 5:39 PM EDT Kevin Isidro RN * Are you blind or do you have serious difficulty seeing, even when wearing glasses? Answer Date of Assessment Author No 08/08/2023 5:39 PM EDT Kevin Isidro RN * Do you have serious difficulty walking or climbing stairs? Answer Date of Assessment Author No 08/08/2023 5:39 PM EDT Kevin Isidro RN * Do you have serious difficulty dressing or bathing? Answer Date of Assessment Author No 08/08/2023 5:39 PM EDT Kevin Isidro RN * Because of a physical, mental, or emotional condition, do you have serious difficulty doing errandsalone such as visiting the doctor? Answer Date of Assessment Author Yes 08/08/2023 5:39 PM EDT Kevin Isidro RN documented as of this encounter Mental Status * Because of a physical, mental, or emotional condition, do you have serious difficulty concentrating, remembering, or making decisions? (5 years old or older) Answer Entry Date Author No 08/08/2023 5:39 PM EDT Kevin Isidro RN documented in this encounter Miscellaneous Notes * Telephone Encounter - Harvinder Riggs - 08/14/2023 9:33 AM EDT Patient Phone Message Reason for Call: Her daughter is calling back to make sure the picture she emailed was received. Best contact number and optimal time of day to reach caller: [phone] Note: Please do not reply to this message. Follow-up communication and further actions as a result of this message need to be communicated with the patient directly, if the patient is not active onMyChart. If the patient is active on MyChart, they will receive notification of the communication/outcome via [employer]. * Telephone Encounter - Sarita Middleton - 08/14/2023 8:42 AM EDT Returned patients daughter phone call. Daughter stated patients wound was hot to touch, but did notanswer my other questions about fever, n/v, pain, chills, etc. Will ask about those symptoms again after reviewing photo of patients wound patients daughter stated that she would send to my email. Patients daughter verbalized understanding of conversation. Currently awaiting patients daughter to send photo of wound to email. Nothing further at this time. * Telephone Encounter - Esthela Hutchison - 08/13/2023 4:22 PM EDT Clinical Concern/Question Reason for Call: pt daughter calling stating that surgical site is infected on pt head and needing antibiotics called in. Pharmacy: [facility] in [place] Best contact number: Other: [phone] or allowed to contact kevin downs [phone] Optimal time of day to reach caller: ANYTIME Additional comments/information from caller: None Note: Please do not reply to this message. Follow-up communication and further actions as a result of this message need to be communicated with the patient directly, if the patient is not active onMyChart. If the patient is active on MyChart, they will receive notification of the communication/outcome via MyChart. documented in this encounter Plan of Treatment Not on file documented as of this encounter Visit Diagnoses Not on filedocumented in this encounter Care Teams Bar Waiter/Waitress Relationship Specialty Start Date End Date Jose, [place] [address] PCP - General Family Medicine 08/07/23 documented as of this encounter
--- OUTSIDE RECORDS SUMMARY | 2024-09-27 08:56 | XMS_ITS | Encounter Summary ---
Author Organization [facility] Address [address] [place] [address] Care Team Providers Care Reversing Mill Roller Name Role Phone Marly Kumar NP Primary Care Provider Encounter Details Date Type Department Care Team (Late st Contact Info) Description 07/26/2020 Transcribed Document [facility] [place] Family Medicine [address] [place] [address] ProviderMiya MD [address] [place] [address] Social History Tobacco Use Types [...] Cerner Conversion Note - Miya ProviderMD - 07/26/2020 11:36 AM CDT Meds to Bed Enrollment Entered On: 07/26/2020 14:09 EDT Performed On: 07/26/2020 11:36 EDT by Jerry Hewitt HOP FARMER LEAD Meds to Bed Enrollment Patient Enrollment Decision: : Yes/enroll in meds to bed program Jerry Hewitt PHARMACY TECH LEAD - 07/26/2020 14:08 EDT documented in this encounter Plan of Treatment Not on file documented as of this encounter Visit Diagnoses Not on filedocumented in this encounter Care Teams Reversing Mill Roller Relationship Specialty Start Date End Date Marly Kumar NP [address] [place] [address] PCP - General Nurse Practitioner 09/22/24 documented as of this encounter
--- OUTSIDE RECORDS SUMMARY | 2024-09-27 08:56 | XMS_ITS | Clinical Summary ---
Author Organization Healthcare Address [address] [place] [address] Care Team Providers Care Applied Anthropologist Name Role Phone Pcp, No Primary Care Provider Unavailabl e Allergies Active Allergy Reactions Criticality Noted Date Comments Tamsulosin Other - please docum ent in the comment field Low 08/08/2023 Sick to stomach Penicillins Hives Medium 08/07/2023 Sulfa Drugs Other - please docum ent in the comment field Low 08/08/2023 Sick to stomach Active Problems Problem Noted Date Diagnosed Date ABLA (acute blood loss anemia) 08/08/2023 Overview (08/08/2023): Hgb: 11 and PLT 138 CTM/trend Transfuse blood products if hgb is <7 or PLT <100 Anemia 08/08/2023 Overview (08/08/2023): MCV-102 MCH-32.3 Need to follow up with PCP Coagulation test abnormality 08/08/2023 Overview (08/08/2023): PT-14.6 and INR: 1.2 Monitor/trend Treat when necessary Hypocalcemia 08/08/2023 Overview (08/08/2023): Likely due to stress secondary to trauma Malnourished 08/08/2023 Overview (08/08/2023): Albumin 3.4 and Total protein 5.9 Needs nutritional optimization and supplemental nutrition Elevated SGOT (AST) 08/08/2023 Overview (08/08/2023): Elevated; CTM/trend Monitor for bleeding Scalp laceration, initial encounter 08/08/2023 Overview (08/08/2023): Due to fall Left front scalp extending into the midline frontal scalp and left periorbital Repaired with glue Hypomagnesemia 08/08/2023 Overview (08/08/2023): Replete prn Monitor/trend 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 Overview (08/08/2023): Left cerebellum representing sequela Incidental finding on imaging Cerebral atrophy 08/08/2023 Overview (08/08/2023): Mild generalized Small vessel disease 08/08/2023 Overview (08/08/2023): Mild white matter changes Follow up with PCP Retention cyst of nasal cavity 08/08/2023 Overview (08/08/2023): Right maxillary sinus Incidental finding on imaging Follow-up with PCP for surveillance Multilevel degenerative joint disease of spine 1 Overview (08/08/2023): Cervical, thoracic, and lumbar spine Mild attenuation of the disc space at C5/6 associated with uncovertebral joint hypertrophy and facet arthropathy Mild facet arthropathy of the thoracic spine Multilevel tiny endplate osteophytes of the lumbar and lower lumbar and lumbosacral facet arthropathy Incidental finding on imaging Follow-up with PCP for surveillance HTN (hypertension) 08/07/2023 Overview (08/08/2023): Resume home medications when appropriate Pacemaker 08/07/2023 Overview (08/08/2023): Dual paced On ASA COPD (chronic obstructive pulmonary disease) 04/2023 Overview (08/08/2023): Resume home medications when appropriate Fall against sharp object, initial encounter 04/2023 Overview (08/08/2023): Hit wall and called laceration on left forehead Admitted SGT 2 Tertiary exam 08/08 Immunizations Name Administration Dates Next Due Tdap 08/07/2023 Social History Tobacco Use Types Packs/Day Years Used Date Smoking Tobacco: Former Cigarettes Smokeless Tobacco: Never Tobacco Cessation:Counseling Given: Yes Alcohol Use Standard Drinks/Week Comments Not Currently [...] drink first t 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 0 08/08/2023 CAGE Questionnaire Score 0 023 Comments Unknown Sex and Gender Information Value Date Recorded Sex Assigned at Not on file Legal Sex Female 7:19 PM EDT Gender Identity Not on file Sexual Orientation Not on file Last Filed Vital Signs Vital Sign Reading Time Taken Comments Blood Pressure 117/71 08/08/2023 2:50 PM EDT Pulse 69 08/08/2023 2:50 PM EDT Temperature 36.9 ??C (98.5 ??F) 08/08/2023 2:50 PM ED T Respiratory Rate 17 08/08/2023 2:50 PM EDT Oxygen Saturation 97% 08/08/2023 2:50 PM EDT Inhaled Oxygen Concentration - - Weight 67.1 kg (148 lb) 08/08/2023 2:41 AM EDT Height 152.4 cm (5') 08/08/2023 2:41 AM EDT Body Mass Index 28.9 08/08/2023 2:41 AM EDT Plan of Treatment Health Maintenance Due Date Last Done Comments [facility]-Bone Density Scan 1953 [facility]-Depression Screening 1953 [facility]-Hepatitis C Screening 1953 [facility]-Infant/Child/Adol SDOH Screenings 1953 [facility]-Pneumococcal Vaccine: 65+ Years (1 of 2 - PCV) 1959 [facility]- SDOH Screenings 1971 [facility]-Adult SDOH Screenings 1971 CT Colonography 1998 Colonoscopy 1998 FIT-DNA 1998 FIT 1998 FOBT 1998 Sigmoidoscopy 1998 [facility]-Colorectal Cancer Screening 1998 [facility]-Breast Cancer Screening 2003 [facility]-Zoster Vaccines (1 of 2) 2003 [facility]-RSV Vaccine: 60+ Years or (1 - Risk 60-74 years 1-dose series) 2013 LMV-YPQTO-10 Vaccine (4 - season) 2024 09/09/2021, 12/05/2020, 11/15/2020 [facility]-Influenza Vaccine (#1) 07/03/202408/18, 08/11/2014, 07/21/2012, Additional history exists [facility]-DTaP,Tdap,and Td Vaccines (2 - Td or Tdap) 08/07/2033 08/07/2023 [facility]-Obesity Intervention Completed 08/14/2023 [facility]-HIB Vaccines Aged Out No longer e ligible based on patient's age to complete this topic [facility]-HPV Vaccines Aged Out No longer e ligible based on patient's age to complete this topic [facility]-Hepatitis A Vaccines Aged Out No longer eligible based on patient's age to complete this topic [facility]-IPV Vaccines Aged Out No longer e ligible based on patient's age to complete this topic [facility]-Rotavirus Vaccines Aged Out No lo nger eligible based on patient's age to complete this topic Insurance [facility]ICAID [facility] OUT OF STATE Advance Directives * Full Code (Latest Code Status on File) Date Activated Date Inactivated Comments 08/07/2023 11:31 PM 08/08/2023 9:21 PM Question Answer Comments Patient has decision-making capacity? Yes Care Teams Applied Anthropologist Relationship Specialty Start Date End Date Pcp, No [address] [address] PCP - General Family Medicine 08/07/23
--- OUTSIDE RECORDS SUMMARY | 2024-09-27 08:56 | XMS_ITS | Encounter Summary ---
Author Organization Healthcare Address [address] [place] [address] Care Team Providers Care Night Cleaner Name Role Phone Pcp, No Primary Care Provider Unavailabl e Reason for Visit * Reason Comments Trauma Alert Red * Auth/Cert (Routine) Specialty Diagnoses / Procedures Referred By Contac t Referred To Contact Diagnoses Fall against sharp object, initial encounter Silverio Torres DO [address] [address] Phone: tel: fax: [facility] [address] [place] [address] Phone: tel: Referral ID Status Reason Start Date Expiration Date Visits Re quested Visits Authorized [id number] 1 1 Encounter Details Date Type Department Care Team (Late st Contact Info) Description 08/07/2023 7:19 PM EDT - 08/08/2023 7:16 PM EDT Emergency [facility] [address] [place] [address] Guille Badillo MD [address] [place] [address] Silverio Torres DO [address] [address] Peace Schmitt MD [address] [address] Fall against sharp object, initial encounter (Primary Dx); Laceration of forehead, initial encounter Discharge Disposition: Home or Self Care Social [...] drink first t 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 * Laceration, All Closures (Emirati) * Fall, Mechanical (Emirati) * Fall Prevention (Emirati) * Oxycodone Oral Tablet (Emirati) * Controlled Substance Discharge Sheet - [facility] () (Emirati) documented in this encounter Medications at Time of Discharge acetaminophen (Tylenol) 325 MG tablet Take 2 tablets (650 mg) by mouth every 6 (six) hours for 13 days. 100 tablet 08/08/2023 08/21/2023 senna-docusate (Rosie-Colace) 8.6-50 MG tablet Take 1 tablet by mouth 1 (one) time each day for 10 days. 10 tablet 08/08/2023 08/18/2023 documented as of this encounter Miscellaneous Notes * Nursing Note - Marcin Isidro - 08/08/2023 5:54 PM EDT Discharge completed at this time with patient. No questions. Waiting on family to knot picker cloth at this time. * Discharge Instr - Appointments - Wesley Ngo RN - 08/08/2023 5:40 PM EDT Follow up: Primary Care Provider: Follow up in 1-2 weeks post hospitalization for incidental findings and management of chronic conditions/medications SGT: [facility] Clinic as needed; [address] [facility] First Floor, Wing D Room [address] [place] [address], #[phone]. Questions or Concerns and Appointments If there are questions or concerns after discharge from the hospital, please call [phone] and ask for Blue Surgery Nurse. Working hours are Thursday - Thursday 8:00 AM to 4:00 PM. After hours, weekends and holidays please call [phone] and ask for the resident bowling or skating front desk clerk for Blue Surgery. For appointments please call [phone]. Medication requests should be made between the hours of 9:00 AM to 3:00 PM Thursday thru Thursday. Please note that based upon recent changes to [place] law related to prescribing opioid pain medications, our providers will not provide refills on controlled medications after your hospital discharge following a major surgery or trauma. [place] 218[place], [place].205 [place] 201 KAR9:260. * Discharge Summary - Alia Mcmahon, MACHINE ZIPPER TRIMMER, DNP - 08/08/2023 4:51 PM EDT Hospitalization Admit Date/Time: 08/07/2023 7:19 PM Admitting Attending: Silverio Torres Discharge Date: 08/08/2023 Discharge Attending Physician: Peace Schmitt MD PCP name and Address: Pcp, No [address] [place] [address] Referring provider name and address: No referring provider defined for this encounter. Chief Concern, Brief History of Present Illness, and Hospital Course Daniela Perkins is a 68 year old female who presented on 08/07/2023 after a fall. She has history ofCOPD, HTN, pacemaker. She was bending down to pick something up and fell forward face first into the corner of a wall. Injuries included scalp laceration which was glued closed. Past 24h: Patient resting in bed with daughter in the room. Alert and oriented. VSS, NAD. On RA. Pain controlled. Denies visual issues, nausea, vomiting, abd pain/discomfort, dizziness, SOA, or chest pain. Patient tolerating diet. Voiding spontaneously. 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 Tertiary exam was completed. No spinaltenderness with palpation and compression to C/T/L spine. No pelvic tenderness with rotation and palpation. All compartments are soft and compressible. Pulses are palpable and present. Patient is able to ambulate and has assistance at home. She is medically ready and will be discharged today. No concerns per patient or nursing at this time. At the time of discharge the patient was hemodynamically stable, tolerating PO, voiding spontaneously, normal bowel function, mobilizing appropriately, with their pain controlled with PO medication. At this time, the patient has obtained the maximum benefit from the present hospital stay, and so will be discharged to home. 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 Questions or Concerns and Appointments If there are questions or concerns after discharge from the hospital, please call [phone] and ask for Blue Surgery Nurse. Working hours are Thursday - Thursday 8:00 AM to 4:00 PM. After hours, weekends and holidays please call [phone] and ask for the resident bowling or skating front desk clerk for Blue Surgery. For appointments please call [phone]. Medication requests should be made between the hours of 9:00 AM to 3:00 PM Thursday thru Thursday. Please note that based upon recent changes to [place] law related to prescribing opioid pain medications, our providers will not provide refills on controlled medications after your hospital discharge following a major surgery or trauma. [place] 218[place], [place].205 [place] 201 KAR9:260. Surgeries and Procedures Procedures performed in this encounter Procedures Laceration Repair Medication List .. acetaminophen 325 MG tablet Commonly known as: Tylenol Take 2 tablets (650 mg) by mouth every 6 (six) hours for 13 days. senna-docusate 8.6-50 MG tablet Commonly known as: Rosie-Colace Take 1 tablet by mouth 1 (one) time each day for 10 days. Where to Get Your Medications These medications were sent to [facility] - [place], [place] - [address] [facility] [id number] acetaminophen 325 MG tablet senna-docusate 8.6-50 MG tablet Discharge Diagnosis Medical Problems Active and Resolved Hospital Problems Hospital HTN (hypertension) Overview Signed 08/08/2023 3:44 PM by Alia Mcmahon APRN, DNP Resume home medications when appropriate COPD (chronic obstructive pulmonary disease) ([facility]) Overview Signed 08/08/2023 3:44 PM by Alia Mcmahon APRN, DNP Resume home medications when appropriate * (Principal) Fall against sharp object, initial encounter Overview Signed 08/08/2023 3:45 PM by Alia Mcmahon APRN, DNP Hit wall and called laceration on left forehead Admitted SGT 2 Tertiary exam 08/08 ABLA (acute blood loss anemia) Overview Signed 08/08/2023 3:47 PM by Alia Mcmahon APRN, DNP Hgb: 11 and PLT 138 CTM/trend Transfuse blood products if hgb is <7 or PLT <100 Anemia Overview Signed 08/08/2023 3:48 PM by Alia Mcmahon APRN, DNP MCV-102 MCH-32.3 Need to follow up with PCP Coagulation test abnormality Overview Signed 08/08/2023 3:49 PM by Alia Mcmahon APRN, DNP PT-14.6 and INR: 1.2 Monitor/trend Treat when necessary Hypocalcemia Overview Signed 08/08/2023 3:49 PM by Alia Mcmahon APRN, DNP Likely due to stress secondary to trauma Malnourished (CMS/HCC) Overview Signed 08/08/2023 3:50 PM by Alia Mcmahon APRN, DNP Albumin 3.4 and Total protein 5.9 Needs nutritional optimization and supplemental nutrition Elevated SGOT (AST) Overview Signed 08/08/2023 3:52 PM by Alia Mcmahon APRN, DNP Elevated; CTM/trend Monitor for bleeding Scalp laceration, initial encounter Overview Signed 08/08/2023 3:53 PM by Alia Mcmahon APRN, DNP Due to fall Left front scalp extending into the midline frontal scalp and left periorbital Repaired with glue Hypomagnesemia Overview Signed 08/08/2023 3:53 PM by Alia Mcmahon APRN, DNP Replete prn Monitor/trend 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 Overview Addendum 08/08/2023 4:38 PM by Alia Mcmahon APRN, DNP Left cerebellum representing sequela Incidental finding on imaging Cerebral atrophy (CMS/HCC) Overview Signed 08/08/2023 4:10 PM by Alia Mcmahon APRN, DNP Mild generalized Small vessel disease (CMS/HCC) Overview Signed 08/08/2023 4:37 PM by Alia Mcmahon APRN, DNP Mild white matter changes Follow up with PCP Retention cyst of nasal cavity Overview Signed 08/08/2023 4:38 PM by Alia Mcmahon APRN, DNP Right maxillary sinus Incidental finding on imaging Follow-up with PCP for surveillance Multilevel degenerative joint disease of spine Overview Signed 08/08/2023 4:42 PM by Alia Mcmahon APRN, DNP Cervical, thoracic, and lumbar spine Mild attenuation of the disc space at C5/6 associated with uncovertebral joint hypertrophy and facet arthropathy Mild facet arthropathy of the thoracic spine Multilevel tiny endplate osteophytes of the lumbar and lower lumbar and lumbosacral facet arthropathy Incidental finding on imaging Follow-up with PCP for surveillance Pacemaker Overview Addendum 08/08/2023 3:45 PM by Alia Mcmahon APRN, DNP Dual paced On ASA Pertinent Physical Exam At Time of Discharge Physical Exam Vitals reviewed. HENT: Head: Comments: Left forehead laceration, glued and DIPTI Right Ear: External ear normal. Left Ear: External ear normal. Nose: Nose normal. Mouth/Throat: Mouth: Mucous membranes are moist. Pharynx: Oropharynx is clear. Eyes: Extraocular Movements: Extraocular movements intact. Pupils: Pupils are equal, round, and reactive to light. Comments: Redness around the skin of the eye Neck: Comments: No cervical stepoff; no pain noted per patient Cardiovascular: Rate and Rhythm: Normal rate. Pulses: Normal pulses. Comments: Rhythm is paced Pulmonary: Effort: Pulmonary effort is normal. Abdominal: General: There is no distension. Palpations: Abdomen is soft. Tenderness: There is no abdominal tenderness. Genitourinary: Comments: [facility] Musculoskeletal: General: No swelling or tenderness. Normal range of motion. Cervical back: Normal range of motion and neck supple. No tenderness. Comments: No spinal tenderness with palpation and compression to C/T/L spine. No pelvic tenderness with rotation and palpation. All compartments are soft and compressible. Pulses are palpable and present. Skin: General: Skin is warm and dry. Capillary Refill: Capillary refill takes less than 2 seconds. Findings: Bruising (around left eye) and laceration (left side of forehead) present. Neurological: General: No focal deficit present. Mental Status: She is alert and oriented to person, place, and time. Psychiatric: Mood and Affect: Mood normal. Behavior: Behavior normal. Thought Content: Thought content normal. Judgment: Judgment normal. TRAUMA SURGERY TERTIARY SURVEY I performed a complete tertiary exam, reviewed patient history, lab studies and all available imaging. All traumatic or incidental findings have been documented as below: Past Medical History: Active Ambulatory Problems Diagnosis Date Noted No Active Ambulatory Problems Resolved Ambulatory Problems Diagnosis Date Noted No Resolved Ambulatory Problems Past Medical History: Diagnosis Date COPD (chronic obstructive pulmonary disease) ([facility]) HTN (hypertension) Pacemaker Seizures ([facility]) Past Surgical History: History reviewed. No pertinent surgical history. Home Medications: Prior to Admission medications Medication Sig Start Date End Date Taking? Authorizing Provider acetaminophen (Tylenol) 325 MG tablet Take 2 tablets (650 mg) by mouth every 6 (six) hours for 13 days. 08/08/23 08/21/23 Yes Alia Mcmahon, MACHINE ZIPPER TRIMMER, DNP oxyCODONE (Roxicodone) 5 MG immediate release tablet Take 1 tablet (5 mg) by mouth every 6 (six) hours if needed for severe pain for up to 3 days. 08/08/23 08/11/23 Yes Magaly Briceño APRN senna-docusate (Rosie-Colace) 8.6-50 MG tablet Take 1 tablet by mouth 1 (one) time each day for 10 days. 08/08/23 08/18/23 Alia Mcmahon APRN, DNP Social History: Pt has reports that she has quit smoking. Her smoking use included cigarettes. She has never used smokeless tobacco. She reports that she does not currently use alcohol. She reports that she does notuse drugs. (details as available below) Social History Substance and Sexual Activity Alcohol Use Not Currently Social History Substance and Sexual Activity Drug Use Never Social History Tobacco Use Smoking Status Former Types: Cigarettes Smokeless Tobacco Never Audit-C for Alcohol Misuse Screening Q1: How often did you have a drink containing alcohol in the past year? Never = 0 Q2: How many drinks did you have on a typical day when you were drinking in the past year? None = 0 Q3: How often did you have six or more drinks on one occasion in the past year? Never = 0 The AUDIT-C is scored on a scale of 0-12 (scores of 0 reflect no alcohol use). In men, a score of 4or more is considered positive; in women, a score of 3 or more is considered positive. Generally, the higher the AUDIT-C score, the more likely it is that the patient's drinking is affecting his/her health and safety. If screening positive (men = 4 women = 3), proceed with referral for alcohol misuse. TOTAL SCORE: 0 Brief Intervention Performed: Not indicated Referral to Treatment Made: Not indicated Tertiary exam as documented above. Radiology: All imaging was reviewed New diagnoses, need for imaging or specialty consultation identified as present on admission via tertiary survey: No Discharge Disposition/Condition Disposition: Home Condition: Stable (s/sx potential problems absent or manageable) I spent >30 minutes of patient care and instruction time in preparation for this discharge. Cosigned by Peace Schmitt MD at 08/08/2023 8:19 PM EDT Associated attestation - Peace Schmitt MD - 08/08/2023 8:19 PM EDT The patient was seen only by Advanced Practice Provider ([facility]). * Hospital Course - Alia Mcmahon APRN, DNP - 08/08/2023 4:09 PM EDT Daniela Perkins is a 68 year old female who presented on 08/07/2023 after a fall. She has history ofCOPD, HTN, pacemaker. She was bending down to pick something up and fell forward face first into the corner of a wall. Injuries included scalp laceration which was glued closed. Past 24h: Patient resting in bed with daughter in the room. Alert and oriented. VSS, NAD. On RA. Pain controlled. Denies visual issues, nausea, vomiting, abd pain/discomfort, dizziness, SOA, or chest pain. Patient tolerating diet. Voiding spontaneously. 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 Tertiary exam was completed. No spinaltenderness with palpation and compression to C/T/L spine. No pelvic tenderness with rotation and palpation. All compartments are soft and compressible. Pulses are palpable and present. Patient is able to ambulate and has assistance at home. She is medically ready and will be discharged today. No concerns per patient or nursing at this time. At the time of discharge the patient was hemodynamically stable, tolerating PO, voiding spontaneously, normal bowel function, mobilizing appropriately, with their pain controlled with PO medication. At this time, the patient has obtained the maximum benefit from the present hospital stay, and so will be discharged to home. 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 Questions or Concerns and Appointments If there are questions or concerns after discharge from the hospital, please call [phone] and ask for Blue Surgery Nurse. Working hours are Thursday - Thursday 8:00 AM to 4:00 PM. After hours, weekends and holidays please call [phone] and ask for the resident bowling or skating front desk clerk for Blue Surgery. For appointments please call [phone]. Medication requests should be made between the hours of 9:00 AM to 3:00 PM Thursday thru Thursday. Please note that based upon recent changes to [place] law related to prescribing opioid pain medications, our providers will not provide refills on controlled medications after your hospital discharge following a major surgery or trauma. [place], [place] 201 KAR9:260. * Nursing Note - Marcin Isidro - 08/08/2023 7:15 AM EDT Bedside shift report recievec at this time. Patient in bed Aox4 at this time. Denies SOA. Complaints of head pain 03/11. Forehead laceration noted CDI glued DIPTI at this time. Patient updated on POC and medications at this time with no questions. Call light within reach and encouraged to call for assistance. No needs at this time. Will continue rounds. * Care Plan - Cherie Bowen - 08/08/2023 5:08 AM EDT Problem: Adult Inpatient Plan of Care Goal: Plan of Care Review Outcome: Ongoing, Progressing Flowsheets (Taken 08/08/2023 0507) Plan of Care Reviewed With: patient Goal: Patient-Specific Goal (Individualized) Outcome: Ongoing, Progressing Flowsheets (Taken 08/08/2023 0242 by Dayanara Bernnan) Patient/Family-Specific Goals (Include Timeframe): Pt will verbalize adequate pain control this shift Individualized Care Needs: Pain control Anxieties, Fears or Concerns: Pain control Goal: Absence of Hospital-Acquired Illness or Injury Outcome: Ongoing, Progressing Goal: Optimal Comfort and Wellbeing Outcome: Ongoing, Progressing Goal: Readiness for Transition of Care Outcome: Ongoing, Progressing Problem: Fall Injury Risk Goal: Absence of Fall and Fall-Related Injury Outcome: Ongoing, Progressing * Procedures - Calderon Goldman MD - 08/08/2023 1:00 AM EDTAssociated Order(s): Laceration Repair Post-Procedure Diagnose(s): Fall against sharp object, initial encounter Laceration Repair Performed by: Calderon Goldman MD Authorized by: Silverio Torres DO Consent: Consent obtained: Verbal Consent given by: Patient Osprey protocol: Procedure explained and questions answered to patient or proxy's satisfaction: yes Relevant documents present and verified: yes Test results available: yes Imaging studies available: no Required blood products, implants, devices, and special equipment available: yes Site/side marked: no Immediately prior to procedure, a time out was called: no Patient identity confirmed: Verbally with patient and arm band Attending Supervision?: yes Anesthesia: Anesthesia method: Local infiltration Local anesthetic: Lidocaine 1% w/o epi Laceration details: Location: Face Face location: Forehead Length (cm): 5 Depth (mm): 1 Pre-procedure details: Preparation: Patient was prepped and draped in usual sterile fashion Exploration: Limited defect created (wound extended): no Hemostasis achieved with: Direct pressure Wound exploration: entire depth of wound visualized Wound extent: areolar tissue violated and muscle damage Wound extent: fascia not violated, no foreign body, no nerve damage, no underlying fracture and no vascular damage Contaminated: no Treatment: Area cleansed with: Saline Amount of cleaning: Standard Irrigation solution: Sterile saline Irrigation volume: 50ml Irrigation method: Syringe Debridement: None Undermining: None Scar revision: no Layers/structures repaired: Deep dermal/superficial fascia Deep dermal/superficial fascia: Suture size: 3-0 Suture material: Vicryl Suture technique: Simple interrupted Number of sutures: 6 Skin repair: Repair method: Sutures Suture size: 4-0 Wound skin closure material used: monocryl. Suture technique: Subcuticular and running Number of sutures: 1 Approximation: Approximation: Close Repair type: Repair type: Intermediate Post-procedure details: Dressing: Open (no dressing) Procedure completion: Tolerated well, no immediate complications Cosigned by Silverio Torres DO at 08/17/2023 10:15 PM EDT Associated attestation - Silverio Torres DO - 08/17/2023 10:15 PM EDT I was present during all critical and israel portions of the procedure(s) and immediately available [facility] services the entire duration. See resident note for details. * Significant Event - Melissa Blanco MD - 08/08/2023 12:15 AM EDT Patient's C collar has been cleared. Patient denied any tenderness to palpation along cervical spine. Denies any neck pain while moving neck side to side or in flexion/extension. CT cervical revealeddegenerative changes of cervical spine without evidence of acute osseous injury, or acute traumaticmalalignment. Melissa Blanco MD General Surgery PGY1 Pager: [phone] * ED Notes - Bree Beaulieu - 08/07/2023 11:58 PM EDT Unable to get pts home medication list. She has her meds with her in the med office workforce planner. She just recently moved here from [place] and last pharmacy was [facility] in [place] Bree Beaulieu 08/07/23 1586 * Consults - Hernesto Pepe - 08/07/2023 7:45 PM EDT Pastoral Care Note Referral From: Dielectric Press Operator initiated Patient Profile: Consult Reasons: Trauma alert Unable to Assess: Unavailable Spiritual Assessment: Coping Skills: Unknown Interventions: Interventions Provided: Team meeting Pastoral Care Outcomes: Patient was busy with the Traum team, EMS said family was aware of the situation but did not seem to be rushing to the hospital. * H&P - Melissa Blanco MD - 08/07/2023 7:26 PM EDTAssociated Order(s): Consult to Trauma Surgery Trauma Alert? Yes Trauma Alert Red Consult to Trauma Surgery Consult performed by: Melissa Blanco MD Consult ordered by: Guille Badillo MD Reason for consult: Fall from standing Assessment/Recommendations: Tdap Follow up imaging Time of Consultation: 19:13 Time of Trauma Evaluation: 19:24 Arrival Date: 08/07/23 Arrival Time: 19:24 Referring Hospital: From scene Injury Date: 08/07/23 Injury Time: Unknown Transport Mode: Mode of Arrival: Ambulance Mechanism of Injury Fall Distance from standing Farm Related Injury: no Work Related Injury: no History Of Present Illness Eloy Perkins is a 68 y.o. female presenting after a fall. She was bending down to pick something up and fell forward face first into the corner of a wall. -LOC. She has a laceration on her left forehead. En route, SBP 89 and given 500cc fluids. PMH Pacemaker and HTN. On ASA 81. Old Chart Reviewed: no Total fluids given prior to arrival 500 ml. Loss of Consciousness: no Past Medical History She has a past medical history of COPD (chronic obstructive pulmonary disease) ([facility]/HCC), HTN (hypertension), and Pacemaker. Surgical History She has no past surgical history on file. Unable to obtain Family History No family history on file. Unable to obtain Social History She has no history on file for tobacco use, alcohol use, and drug use. Unable to obtain Allergies Penicillins Medications Current Facility-Administered Medications Medication Dose Route Frequency Provider Last Rate Last Admin lidocaine (Xylocaine) 1 % injection 10 mL 10 mL Infiltration Once Calderon Goldman MD No current outpatient medications on file. Unable to obtain Occupational History Employer: No address on file. Unable to obtain Immunizations reviewed VACCINE/DOSE DATE Flu Tetanus 08/07/2023 Pneumovax Shingles Review of Systems Relevant review of systems was obtained as able and is negative unless stated above in HPI. Physical Exam GEN: no apparent distress female HENT: normocephalic, atraumatic, 5cm vertical laceration medial to left eye and extending to forehead with exposed bone, surrounding ecchymosis EYES: pupils 4mm, equal, round, reactive to light, extraocular motion intact EARS: no hemotympanum, no lacerations FACE: no step off, lacerations, avulsions, or gross deformities NOSE: no septal hematoma, no tenderness to palpation, no lacerations, no blood per nares ORAL: no malocclusion, no lacerations NECK: no acute fracture of mal-alignment of cervical spine, c-collar in place, trachea midline, no masses or lacerations RESP: symmetric chest expansion, breath sounds present bilaterally, no tenderness to the chest wall, no lacerations or abrasions CV: appears well perfused, 85 rate, 2+ and symmetric ABD: soft, non-tender, non-distended, no penetrating wounds, no abrasions, no seat belt sign BACK: no tenderness to palpation of the thoracic, no tenderness to palpation of the lumbar spine, no step-offs, no penetrating wounds PELVIS: stable, no tenderness to palpation EXT: no apparent deformities, stength/tone grossly normal. 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 rate 14, weight 71.3 kg (157lb 3 oz), SpO2 99 %. Kelsie Kelsie Coma Scale Best Eye Response: Spontaneous Best Verbal Response: Oriented Best Motor Response: Follows commands Steger Coma Scale Score: 15 Intubated No Recent Results Labs in last 18 hours CBC WBC 5.55 Hb 11.0 (L) Plt 138 (L) Hct 34.8 ANC ?? INR 1.2 (H), PTT 25, Anti-Xa ?? BMP Na 137 Cl 105 BUN 16 Glu 84 K 3.7 Co2 24 Cr 0.74 Ca 8.6 (L) iCa ?? Mg ??, Phos ?? Lactate ?? LFT AST 73 (H) AlkPhos 111 T Prot 6.2 (L) ALK 27 Bili 0.3 Alb ?? D.Bili ?? Radiology FAST:Negative Images associated: No Images personally reviewed and consistent with the following: Plain Films: XR CHEST 1 VIEW, XR PELVIS 1 OR 2 VIEWS COMPARISON: None. FINDINGS: Chest: Unremarkable cardiomediastinal silhouette. No consolidation. No pneumothorax or pleural effusion. No acute displaced rib fracture. Pelvis: No acute fracture or malalignment. No SI joint or pubic symphysis diastasis. IMPRESSION: No acute findings. XR CHEST 1 VIEW, XR PELVIS 1 OR 2 VIEWS COMPARISON: None. FINDINGS: Chest: Unremarkable cardiomediastinal silhouette. No consolidation. No pneumothorax or pleural effusion. No acute displaced rib fracture. Pelvis: No acute fracture or malalignment. No SI joint or pubic symphysis diastasis. IMPRESSION: No acute findings. CT Scans: CT CERVICAL SPINE WO IV CONTRAST, CT THORACIC SPINE WO IV CONTRAST, CT LUMBAR SPINE WO IVCONTRAST IMPRESSION: Degenerative changes of cervical, thoracic,and lumbar spine without evidence of acute osseous injury, or acute traumatic malalignment. FINDINGS: CT Head: No acute intracranial abnormality. No evidence of acute hemorrhage or ischemia. No mass, mass effect, or midline displacement of structures. Normal ventricular size and configuration. Patent basal cisterns. 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 Mild generalized cerebral atrophy. Mild white matter changes which are nonspecific but commonly seen with small vessel ischemic disease. No displaced or depressed calvarial fractures. The mastoid air cells are clear. Contusion, laceration, and small hematoma of the superior left frontal scalp which extends into the midline frontal scalp and into the left periorbital soft tissues.. CT Face: Facial bones: No acute facial bone fracture. Patient is edentulous. Paranasal sinuses: Retention cyst is present within the right maxillary sinus. Globes: Bilateral globes appear intact. Soft tissues: Left frontal parietal scalp contusion and laceration as described above. Mild soft tissue swelling of the left cheek. IMPRESSION: No acute intracranial abnormality. No acute facial bone fracture. Contusion, laceration, and small hematoma of the superior left frontal scalp with associated subcutaneous emphysema which extends into the midline frontal scalp and into the left periorbital soft tissues. Contusion of the left cheek. CRITICAL RESULT: No. Angiography: None Impression: No acute fractures noted or acute findings on CT head. Laceration and small hematoma ofsuperior left frontal scalp with associated subcutaneous emphysema which extends into the midline frontal scalp and into the left periorbital soft tissues. Medical Problems Problem List HTN (hypertension) Pacemaker Overview Signed 08/07/2023 7:41 PM by Melissa Blanco MD On ASA COPD (chronic obstructive pulmonary disease) ([facility]) Plan: - Admit to SGT1 to obs - Tdap booster - Follow up on CT imaging head, face, cervical, lumbar, thoracic - Laceration repair of forehead - Clear c collar - Monitor hypotension - mIVF - NPO Melissa Blanco MD General Surgery PGY1 Pager: [phone] Cosigned by Silverio Torres DO at 08/17/2023 10:10 PM EDT Associated attestation - Silverio Torres DO - 08/17/2023 10:10 PM EDT Present on arrival. I saw and evaluated the patient. I discussed the case with the resident/fellow and agree with the findings and plan as documented. * ED Provider Notes - Ja Tobar MD - 08/07/2023 7:19 PM EDT Chief Complaint: Trauma Alert Red HPI: Eloy Perkins is a 68 y.o. female with a history of COPD, hypertension, pacemaker presenting for evaluation of Trauma Alert Red. Per EMS, patient was in her home and had a mechanical falland hit her head. They noted a large laceration over her left forehead. Patient states that she hadturned around in her home and lost her balance, she took several steps trying to regain her balancebut ended up falling, hitting her head on an item in her home. She denies any loss of consciousness. Per EMS, when they arrived, she was hypotensive with systolic pressures in the 90s but was mentating appropriately. GCS 15 on arrival. Patient does not know when her last tetanus shot was. She denies any other symptoms currently other than pain in the left forehead. She denies vision changes. Past Medical History: Past medical history was reviewed. Past Medical History: Diagnosis Date COPD (chronic obstructive pulmonary disease) ([facility]) HTN (hypertension) Pacemaker Seizures ([facility]) Social History: Social History was reviewed. Tobacco Use Smoking status: Former Types: Cigarettes Smokeless tobacco: Never Substance Use Topics Alcohol use: Not Currently Drug use: Never ROS: Review of Systems All other systems reviewed and are negative. ED Triage Vitals: ED Triage Vitals [08/07/231924] Temp Heart Rate Resp BP 36.7 ??C (98.1 ??F) 88 17 (!) 153/107 SpO2 Temp Source Heart Rate Source Patient Position 99 % Oral Monitor -- BP Location FiO2 (%) -- -- Physical Exam Vitals and nursing note reviewed. Constitutional: General: She is not in acute distress. Appearance: She is well-developed. She is not toxic-appearing. Interventions: Cervical collar in place. HENT: Head: Comments: Large vertical 5cm laceration along the left forehead extending to inferior portion of the left eyebrow. Exposed bone visualized within the laceration appears to be intact. Ecchymosis present to bilateral orbits with left worse than right Right Ear: External ear normal. Left Ear: External ear normal. Nose: Nose normal. Mouth/Throat: Mouth: Mucous membranes are moist. Eyes: Conjunctiva/sclera: Conjunctivae normal. Comments: PERRLA with 4mm and reactive pupils bilaterally Cardiovascular: Rate and Rhythm: Normal rate and regular rhythm. Pulses: Normal pulses. Heart sounds: Normal heart sounds. No murmur heard. No friction rub. No gallop. Pulmonary: Effort: Pulmonary effort is normal. No respiratory distress. Breath sounds: Normal breath sounds. No wheezing, rhonchi or rales. Abdominal: Palpations: Abdomen is soft. Tenderness: There is no abdominal tenderness. Musculoskeletal: General: No swelling. Cervical back: Neck supple. Skin: General: Skin is warm and dry. Capillary Refill: Capillary refill takes less than 2 seconds. Neurological: General: No focal deficit present. Mental Status: She is alert and oriented to person, place, and time. GCS: GCS eye subscore is 4. GCS verbal subscore is 5. GCS motor subscore is 6. Psychiatric: Mood and Affect: Mood normal. Behavior: Behavior normal. ED Course & MDM Medical Decision Making MDM: Patient is a 68 y.o. female with history and exam per above presenting for evaluation of Trauma Alert Red. Diagnoses considered include facial bone fracture, nasal bone fracture, cervical spine injury, intracranial injury, among others. The trauma surgery team was present at the time of the patient's arrival to the ED. See their notesfor full primary and secondary assessment and management decisions. The patient was hemodynamically stable upon arrival, in no acute respiratory distress, breathing comfortably on room air. Afebrile. Physical exam, as stated above, revealed a c-collar in place with alarge vertical 5cm laceration over the left forehead extending just inferior to the left eyebrow without occular involvement. GCS 15. She is complaining only of pain to her left forehead. Initial workup included CXR, pelvis xray, CT head without contrast, CT face without contrast, CT C-spine without contrast, CT T spine without contrast, CT L spine without contrast. These were reviewed and interpreted by me and revealed no acute fractures or dislocations. No acute intrathoracic findings. The patient does have soft tissue injuries and mild subcutaneous emphysema to the left forehead. The patient's tetanus shot was updated. The patient was subsequently admitted to the trauma surgery service for repair of the facial laceration and to give mIVF and to monitor hypotension. She did not require any acute airway interventionsduring her stay in the ED. Labs were independently interpreted by me. They are significant for no acute findings. The following orders were placed this encounter: Orders Placed This Encounter Procedures Laceration Repair XR Chest 1 View XR Pelvis [address] Head wo IV Contrast CT Face wo IV Contrast CT Cervical Spine wo IV Contrast CT Thoracic Spine wo IV Contrast CT Lumbar Spine wo IV Contrast Trauma shock panel blood gas CMP CBC w/o diff PT-INR APTT (PTT) Ethyl Alcohol Plasma Drug Abuse Screen, Urine Urinalysis with reflex microscopic Test Qualitative Plasma TEG Global Hemostasis with Lysis Type and Screen Urinalysis Microscopic Examination CBC W/O Differential Comprehensive metabolic panel Magnesium Phosphorus Adult diet Diet texture: Regular Continuous Pulse Oximetry Trauma Alert Red Notification Cardiac Monitoring Continuous Pulse Oximetry Trauma Alert Red Notification Notify Provider Vital Signs Intake and Output - Strict Neuro checks Mobility Orders Sequential compression device Do Not Give Nicotine Replacement Update First Call Provider Assignment Full code Consult to Trauma Surgery Consult to Trauma Surgery Oxygen Therapy - Device: Nasal Cannula Oxygen Therapy - Device: Nasal Cannula 2 Large Bore IV's 2 Large Bore IV's Insert peripheral IV Saline lock IV Initiate observation status Medications administered this encounter: Medications sodium chloride 0.9 % flush 10 mL (has no administration in time range) And sodium chloride 0.9 % flush 10 mL (has no administration in time range) ondansetron (Zofran) injection 4 mg (has no administration in time range) oxyCODONE (Roxicodone) immediate release tablet 5 mg (5 mg Oral Given 08/08/23 0631) acetaminophen (Tylenol) tablet 650 mg (has no administration in time range) Tdap (BoostRIX) 5-2.5-18.5 LF-MCG/0.5 vaccine 0.5 mL (0.5 mL Intramuscular Given 08/07/232035) morphine PF 4 mg (4 mg Intravenous Given 08/07/23 2202) lidocaine (Xylocaine) 1 % injection 10 mL (10 mL Infiltration Given 08/07/23 234) HYDROmorphone (Dilaudid) injection 0.25 mg (0.25 mg Intravenous Given 08/08/23 0053) morphine PF 2 mg (2 mg Intravenous Given 08/08/23 0306) ketorolac (Toradol) injection 15 mg (15 mg Intravenous Given 08/08/23 1144) Patient was admitted by Silverio Torres DO with admitting diagnosis of Fall against sharp object, initial encounter [W01.119A]. The following providers were documented as being assigned to this patient during this visit: Sincerely, Guille Badillo MD Tucker, DO Oskar Fischer Margaret M, MD Karsner, Joshua M, MD Roederer, Ardis M, MACHINE ZIPPER TRIMMER, DNP Clinical Impressions as of 08/08/235 Fall against sharp object, initial encounter Laceration of forehead, initial encounter New prescriptions, ambulatory referrals placed, if applicable: There are no discharge medications for this patient. You have no referrals or appointment requests from this visit. Ja Tobar MD Resident 08/08/231414 Cosigned by Guille Badillo MD at 08/09/2023 3:23 PM EDT Associated attestation - Guille Badillo MD - 08/09/2023 3:23 PM EDT I saw and evaluated the patient with the resident/fellow. I discussed the case with the resident/fellow and agree with the findings and plan as documented. * ED Triage Notes - Bernie Wisdom RN - 08/07/2023 7:19 PM EDT Pt fell and hit face off the wall. Laceration to eye to goes to forehead. -LOC, -BT, HOTN. Pt has apacemaker. documented in this encounter Plan of Treatment Not on file documented as of this encounter Procedures Procedure Name Priority Date/Time Associated Diagnosis Comments CBC W/O DIFFERENTIAL Routine 08/08/2023 4:02 AM EDT PHOSPHORUS, PLASMA Routine 08/08/2023 4: 02 AM EDT MAGNESIUM, PLASMA Routine 08/08/2023 4:0 2 AM EDT COMPREHENSIVE METABOLIC PANEL, PLASMA Routine 08/08/2023 4:02 AM EDT DC LAYR CLOS WND FACE,FACIAL 2.5-5 CM Routine 08/08/2023 1:00 AM EDT Fall against sharp object, initial encounter TRAUMA SHOCK PANEL BLOOD GAS STAT 08/07/2023 8:03 PM EDT ETHYL ALCOHOL PLASMA STAT 08/07/2023 8:03 PM EDT TEG GLOBAL HEMOSTASIS WITH LYSIS STAT 08/07/2023 8:03 PM EDT OXYGEN THERAPY STAT 08/07/2023 8:00 PM EDT OXYGEN THERAPY STAT 08/07/2023 8:00 PM EDT URINALYSIS MICROSCOPIC FOR UA REFLEX STAT 08/07/2023 7:56 PM EDT DRUG ABUSE SCREEN, URINE STAT 08/07/2023 7:56 PM EDT URINALYSIS WITH REFLEX MICROSCOPIC STAT 08/07/2023 7:[address] LUMBAR SPINE WO IV CONTRAST STAT 08/07/2023 7:[address] THORACIC SPINE WO IV CONTRAST STAT 08/07/2023 7:[address] CERVICAL SPINE WO IV CONTRAST STAT 08/07/2023 7:[address] FACE WO IV CONTRAST STAT 7:[address] HEAD WO IV CONTRAST STAT 7:54 PM EDT APTT STAT 08/07/2023 7:45 PM EDT PROTHROMBIN TIME(PT) / INR STAT 08/07/2023 7:45 PM EDT CBC W/O DIFFERENTIAL STAT 08/07/2023 7:45 PM EDT TYPE AND SCREEN STAT 08/07/2023 7:45 PM EDT TEST QUALITATIVE PLASMA STAT 08/07/2023 7:45 PM EDT COMPREHENSIVE METABOLIC PANEL, PLASMA STAT 08/07/2023 7:45 PM EDT XR PELVIS 1 OR 2 VIEWS STAT 7:41 PM EDT XR CHEST 1 VIEW STAT 08/07/2023 7:41 PM EDT OXYGEN THERAPY STAT 08/07/2023 7:31 PM EDT OXYGEN THERAPY STAT 08/07/2023 7:31 PM EDT OXYGEN THERAPY STAT 08/07/2023 7:31 PM EDT OXYGEN THERAPY STAT 08/07/2023 7:20 PM EDT OXYGEN THERAPY STAT 08/07/2023 7:20 PM EDT OXYGEN THERAPY STAT 08/07/2023 7:20 PM EDT documented in this encounter Results * (ABNORMAL) Phosphorus (08/08/2023 4:02 AM EDT) Phosphorus, Plasma 2.3(L) 2.5 - 4.5 mg/dL 08/08/2023 5:25 AM EDT [facility] Blood Venous blood specimen / Unknown Venipuncture / Unknown 08/08/2023 4:02 AM EDT 08/08/2023 4:45 AM EDT us Silverio Torres DO LAB BLOOD ORDERABLES Final Res ult [facility] [address] [place] [address] * (ABNORMAL) Magnesium (08/08/2023 4:02 AM EDT) Magnesium, Plasma 1.7(L) 1.9 - 2.4 mg/dL 08/08/2023 5:25 AM EDT [facility] Blood Venous blood specimen / Unknown Venipuncture / Unknown 08/08/2023 4:02 AM EDT 08/08/2023 4:45 AM EDT Silverio K Brian DO LAB BLOOD ORDERABLES Final Res ult [facility] [address] [place] [address] * (ABNORMAL) Comprehensive metabolic panel (08/08/2023 4:02 AM EDT) Glucose, Plasma 130(H) 74 - 99 mg/dL 08/08/2023 5:25 AM EDT [facility] BUN, Plasma 13 8 - 23 mg/dL 08/08/2023 5:25 AM EDT [facility] Creatinine, Plasma 0.79 0.60 - 1.10 mg/dL 08/08/2023 5:25 AM EDT [facility] BUN/Creatinine Ratio 16 08/08/2023 5:25 AM EDT [facility] Sodium, Plasma 143 136 - 145 mmol/L 08/08/2023 5:25 AM EDT [facility] Potassium, Plasma 3.8 3.7 - 4.8 mmol/L 08/08/2023 5:25 AM EDT [facility] Chloride, Plasma 107 97 - 107 mmol/L 08/08/2023 5:25 AM EDT [facility] CO2, Plasma 26 22 - 29 mmol/L 08/08/2023 5:25 AM EDT [facility] Anion Gap 10 6 - 16 mmol/L 08/08/2023 5:25 AM EDT [facility] Total Calcium, Plasma 8.9 8.9 - 10.2 mg/dL 08/08/2023 5:25 AM EDT [facility] Total Protein 5.9(L) 6.3 - 7.9 g/dL 08/08/2023 5:25 AM EDT [facility] Albumin, Plasma 3.4(L) 3.5 - 5.2 g/dL 08/08/2023 5:25 AM EDT [facility] AST, Plasma 71(H) 10 - 35 U/L 08/08/2023 5:25 AM EDT [facility] ALT, Plasma 27 10 - 35 U/L 08/08/2023 5:25 AM EDT [facility] Alkaline Phosphatase, Plasma 91 46 - 142 U/L 08/08/2023 5:25 AM EDT [facility] Total Bilirubin, Plasma 0.3 0.2 - 1.1 mg/dL 08/08/2023 5:25 AM EDT [facility] eGFRcr 80.6 mL/min/1.7 3m*2 08/08/2023 5:25 AM EDT [facility] Comment:Reported eGFRcr in m L/min/1.73m2 is based the CKD-EPI 2020 equation that does not use a race coefficient. Blood Venous blood specimen / Unknown Venipuncture / Unknown 08/08/2023 4:02 AM EDT 08/08/2023 4:45 AM EDT Silverio Torres DO LAB BLOOD ORDERABLES Final Res ult [facility] [address] [place] [address] * (ABNORMAL) CBC W/O Differential (08/08/2023 4:02 AM EDT) WBC Count 8.00 3.70 - 10.30 10*3/uL LAB HEMATOLOGY METHOD 08/08/2023 5:03 AM EDT [facility] RBC Count 3.44(L) 3.90 - 5.20 10*6/uL LAB HEMATOLOGY METHOD 08/08/2023 5:03 AM EDT [facility] HGB 11.3 11.2 - 15.7 g/dL LAB HEMATOLOGY METHOD 08/08/2023 5:03 AM EDT [facility] HCT 34.5 34.0 - 45.0 % LAB HEMATOLOGY METHOD 08/08/2023 5:03 AM EDT [facility] Platelet Count 136(L) 155 - 369 10*3/uL LAB HEMATOLOGY METHOD 08/08/2023 5:03 AM EDT [facility] MCV 100(H) 79 - 98 fL LAB HEMATOLOGY METHOD 08/08/2023 5:03 AM EDT [facility] MCH 32.8(H) 26.0 - 32.0 pg LAB HEMATOLOGY METHOD 08/08/2023 5:03 AM EDT [facility] MCHC 32.8 30.7 - 35.5 g/dL LAB HEMATOLOGY METHOD 08/08/2023 5:03 AM EDT [facility] RDW 13.8 11.5 - 14.5 % LAB HEMATOLOGY METHOD 08/08/2023 5:03 AM EDT [facility] MPV LAB HEMATOLOGY METHOD 08/08/2023 5:03 AM EDT [facility] Comment:Not Measured nRBC 0.0 <=0.0 per 100 WBCs LAB HEMATOLOGY METHOD 08/08/2023 5:03 AM EDT [facility] Blood Venous blood specimen / Unknown Venipuncture / Unknown 08/08/2023 4:02 AM EDT 08/08/2023 4:47 AM EDT us Silverio Torres DO LAB BLOOD ORDERABLES Final Res ult Performing Organization Address City/State/[facility] Co de Phone Number [facility] [address] [place] [address] * DC LAYR CLOS WND FACE,FACIAL 2.5-5 CM (08/08/2023 1:00 AM EDT) Narrative Silverio Torres, - 08/08/2023 1:00 AM EDT Calderon Goldman MD ? 08/08/2023 ??3:25 AM Laceration Repair Performed by: Calderon Goldman MD Authorized by: Silverio Torres DO ?? Consent: ??Consent obtained: ??Verbal ??Consent given by: ??Patient Osprey protocol: ??Procedure explained and questions answered to patient or proxy's satisfaction: yes ?Relevant documents present and verified: yes ?Test results available: yes ?Imaging studies available: no ?Required blood products, implants, devices, and special equipment available: yes ?Site/side marked: no ?Immediately prior to procedure, a time out was called: no ?Patient identity confirmed: ??Verbally with patient and arm band Attending Supervision?: yes ?? Anesthesia: ??Anesthesia method: ??Local infiltration ??Local anesthetic: ??Lidocaine 1% w/o epi Laceration details: ??Location: ??Face ??Face location: ??Forehead ??Length (cm): ??5 ??Depth (mm): ??1 Pre-procedure details: ??Preparation: ??Patient was prepped and draped in usual sterile fashion Exploration: ??Limited defect created (wound extended): no ?Hemostasis achieved with: ??Direct pressure ??Wound exploration: entire depth of wound visualized ?Wound extent: areolar tissue violated and muscle damage ?Wound extent: fascia not violated, no foreign body, no nerve damage, no underlying fracture and no vascular damage ?Contaminated: no ?? Treatment: ??Area cleansed with: ??Saline ??Amount of cleaning: ??Standard ??Irrigation solution: ??Sterile saline ??Irrigation volume: ??50ml ??Irrigation method: ??Syringe ??Debridement: ??None ??Undermining: ??None ??Scar revision: no ?Layers/structures repaired: ??Deep dermal/superficial fascia Deep dermal/superficial fascia: ??Suture size: ??3-0 ??Suture material: ??Vicryl ??Suture technique: ??Simple interrupted ??Number of sutures: ??6 Skin repair: ??Repair method: ??Sutures ??Suture size: ??4-0 ??Wound skin closure material used: monocryl. ??Suture technique: ??Subcuticular and running ??Number of sutures: ??1 Approximation: ??Approximation: ??Close Repair type: ??Repair type: ??Intermediate Post-procedure details: ??Dressing: ??Open (no dressing) ??Procedure completion: ??Tolerated well, no immediate complications us Silverio Torres DO IN CLINIC/BEDSIDE ORDERABLES F inal Result * (ABNORMAL) TEG Global Hemostasis with Lysis (08/07/2023 8:03 PM EDT) R, Lysis 2.2(L) 4.6 - 9.1 min 08/07/2023 9:22 PM EDT [facility] MA, Rapid, Lysis 63.2 52.0 - 70.0 mm 08/07/2023 9:22 PM EDT [facility] MA, Fibrinogen, Lysis 31.1 15.0 - 32.0 mm 08/07/2023 9:22 PM EDT [facility] LY30 0.0 0.0 - 2.6 % 08/07/2023 9:22 PM EDT [facility] Blood Venous blood specimen / Unknown Venipuncture / Unknown 08/07/2023 8:03 PM EDT 08/07/2023 8:06 PM EDT Gulile Badillo MD LAB BLOOD ORDERABLES Final Result [facility] [address] [place] [address] * Ethyl Alcohol Plasma (08/07/2023 8:03 PM EDT) Ethanol Plasma <10 <10 mg/dL 08/07/2023 8:27 PM EDT [facility] Blood Venous blood specimen / Unknown Venipuncture / Unknown 08/07/2023 8:03 PM EDT 08/07/2023 8:06 PM EDT Narrative [facility] - 08/07/2023 8:27 PM EDT Enzymatic Assay: Performed on [place] Gabriela. Guille Badillo MD LAB BLOOD ORDERABLES Final Result Performing Organization Address City/[facility] Co de Phone Number [facility] [address] [place] [address] * (ABNORMAL) Trauma shock panel blood gas (08/07/2023 8:03 PM EDT) pH, Venous 7.35 7.32 - 7.43 LAB HEMATOLOGY METHOD 08/07/2023 8:08 PM EDT [facility] Bicarbonate, Calculated, Venous 28(H) 22 - 26 mmol/L LAB HEMATOLOGY METHOD 08/07/2023 8:08 PM EDT [facility] Base Excess, Venous 1.4 -2.0 - 3.0 mmol/L LAB HEMATOLOGY METHOD 08/07/2023 8:08 PM EDT [facility] Lactate, Venous, Whole Blood 1.3 0.5 - 2.2 mmol/L LAB HEMATOLOGY METHOD 08/07/2023 8:08 PM EDT [facility] Blood Venous blood specimen / Unknown Venipuncture / Unknown 08/07/2023 8:03 PM EDT 08/07/2023 8:06 PM EDT Guille Badillo MD LAB BLOOD ORDERABLES Final Result Performing Organization Address [facility] Co de Phone Number [facility] [address] [place] [address] * Urinalysis Microscopic Examination (08/07/2023 7:56 PM EDT) Urine Urine specimen obtained by clean catch procedure / Unknown Non-blood Collection / Unknown 08/07/2023 7:56 PM EDT 08/07/2023 7:58 PM EDT Guille Badillo MD LAB URINE ORDERABLES Final Result Performing Organization Address [facility] Phone Number [facility] [address] [place] [address] * (ABNORMAL) Urinalysis with reflex microscopic (08/07/2023 7:56 PM EDT) Color, Urine Yellow LAB URINALYSIS - AUTOMATED METHOD 08/07/2023 8:32 PM EDT [facility] Clarity, Urine Clear LAB URINALYSIS - AUTOMATED METHOD 08/07/2023 8:32 PM EDT [facility] Spec Amigo, Urine 1.017 <=1.005 to >=1.030 LAB URINALYSIS - AUTOMATED METHOD 08/07/2023 8:32 PM EDT [facility] pH, Urine 7.5 4.5 to 8 LAB URINALYSIS - AUTOMATED METHOD 08/07/2023 8:32 PM EDT [facility] Protein, Urine Negative Negative mg/dL LAB URINALYSIS - AUTOMATED METHOD 08/07/2023 8:32 PM EDT [facility] Glucose, Urine Negative Negative mg/dL LAB URINALYSIS - AUTOMATED METHOD 08/07/2023 8:32 PM EDT [facility] Ketones, Urine Negative Negative mg/dL LAB URINALYSIS - AUTOMATED METHOD 08/07/2023 8:32 PM EDT [facility] Blood, Urine Negative Negative LAB URINALYSIS - AUTOMATED METHOD 08/07/2023 8:32 PM EDT [facility] Bilirubin, Urine Negative Negative LAB URINALYSIS - AUTOMATED METHOD 08/07/2023 8:32 PM EDT [facility] Urobilinogen, Urine 0.2 0.2 to 1.0 mg/dL LAB URINALYSIS - AUTOMATED METHOD 08/07/2023 8:32 PM EDT [facility] Leukocytes, Urine Small(A) Negative LAB URINALYSIS - AUTOMATED METHOD 08/07/2023 8:32 PM EDT [facility] Nitrite, Urine Negative Negative LAB URINALYSIS - AUTOMATED METHOD 08/07/2023 8:32 PM EDT [facility] RBC, Urine 1 0 to 3 /HPF LAB URINALYSIS - AUTOMATED METHOD 08/07/2023 8:32 PM EDT [facility] Comment:This result was prev iously suppressed from the chart. WBC, Urine 6 - 10(A) 0 to 5 /HPF LAB URINALYSIS - AUTOMATED METHOD 08/07/2023 8:32 PM EDT [facility] Comment:This result was prev iously suppressed from the chart. Squamous Epithelial Cells 0 - 2 0 to 5 /HPF LAB URINALYSIS - AUTOMATED METHOD 08/07/2023 8:32 PM EDT [facility] Comment:This result was prev iously suppressed from the chart. Hyaline Casts 0 - 2 0 to 5 /LPF LAB URINALYSIS - AUTOMATED METHOD 08/07/2023 8:32 PM EDT [facility] Comment:This result was prev iously suppressed from the chart. Bacteria, Urine Negative Negative LAB URINALYSIS - AUTOMATED METHOD 08/07/2023 8:32 PM EDT [facility] Comment:This result was prev iously suppressed from the chart. Urine Urine specimen obtained by clean catch procedure / Unknown Non-blood Collection / Unknown 08/07/2023 7:56 PM EDT 08/07/2023 7:58 PM EDT Guille Badillo MD LAB URINE ORDERABLES Final Result [facility] [address] [place] [id number] * Drug Abuse Screen, Urine (08/07/2023 7:56 PM EDT) [facility] Amphetamine Screen Urine Negative Cutoff: 500 ng/mL 08/07/2023 8:19 PM EDT [facility] Benzodiazepines Screen Urine Negative Cutoff: 200 ng/mL 08/07/2023 8:19 PM EDT [facility] Cannabinoid Screen Urine Negative Cutoff: 50 ng/mL 08/07/2023 8:19 PM EDT [facility] Cocaine Screen Urine Negative Cutoff: 300 ng/mL 08/07/2023 8:19 PM EDT [facility] Barbiturate Screen Urine Negative Cutoff: 200 ng/mL 08/07/2023 8:19 PM EDT [facility] Opiate Screen Urine Negative Cutoff: 300 ng/mL 08/07/2023 8:19 PM EDT [facility] Methadone Screen Urine Negative Cutoff: 300 ng/mL 08/07/2023 8:19 PM EDT [facility] Buprenorphine Screen Urine Negative Cutoff: 10 ng/mL 08/07/2023 8:19 PM EDT [facility] Fentanyl Screen Urine Negative Cutoff: 1 ng/mL 08/07/2023 8:19 PM EDT [facility] Oxycodone Screen Urine Negative Cutoff: 100 ng/mL 08/07/2023 8:19 PM EDT [facility] Urine Urine specimen obtained by clean catch procedure / Unknown Non-blood Collection / Unknown 08/07/2023 7:56 PM EDT 08/07/2023 7:59 PM EDT Guille Badillo MD LAB URINE ORDERABLES Final Result Performing Organization Address City/State/[facility] de Phone Number [facility] [address] [place] [address] * CT Lumbar Spine wo IV Contrast (08/07/2023 7:54 PM EDT) Anatomical Region Laterality Modality Spine, L-spine Computed Tomogra phy Impressions 08/07/2023 8:44 PM EDT Degenerative changes of cervical, thoracic,and lumbar spine without evidence of acute osseous injury, or acute traumatic malalignment. CRITICAL RESULT: ?? No. ?? COMMUNICATION: Per this written report. Drafted by Jose Del Rosario MD on 08/07/2023 8:39 PM Final report signed by Jose Del Rosario MD on 08/07/2023 8:44 PM Narrative 08/07/2023 8:44 PM EDT CLINICAL INDICATION: poly trauma TECHNIQUE: Imaging of the entire cervical, thoracic, and lumbar spine was performed, using spiral technique, without contrast administration. Reformatted images in the coronal and sagittal planes were generated from the axial data set to facilitate diagnostic accuracy and/or surgical planning. Total DLP (Dose-Length Product): 2138. Please note: The reported value represents the total of one or more individual components during the CT acquisition on this date and at this time, and as such, the same value may appear in more than one CT report depending on the interpreting/reporting physicians. COMPARISON: None. FINDINGS: Cervical Spine: Vertebrae: No acute vertebral body compression. Mild attenuation of the disc space at C5/6, associated uncovertebral joint hypertrophy. Mild multilevel facet arthropathy. Dens intact. Posterior skull base intact. No acute cervical spine fracture. Alignment: No acute traumatic subluxation. Paraspinal Soft Tissues: No paraspinal hematoma. Lung Apices: No pneumothorax at the lung apices. Thoracic Spine: Vertebrae: No acute vertebral body compression. Mild facet arthropathy of the thoracic spine. Posterior elements and the adjacent posterior medial ribs are intact. Alignment: No traumatic subluxation. Paraspinal Soft Tissues: No paraspinal hematoma. Lumbar Spine: Vertebrae: No acute vertebral body compression. Multilevel tiny endplate osteophytes. Lower lumbar and lumbosacral facet arthropathy. The posterior orbits otherwise intact. The SI joints do not appear to be widened. Visualized portion of the sacrum appears intact. Alignment: No traumatic subluxation. Paraspinal Soft Tissues: No paraspinal hematoma. Procedure Note Jose Del Rosario MD - 08/07/2023 CLINICAL INDICATION: poly trauma TECHNIQUE: Imaging of the entire cervical, thoracic, and lumbar spine was performed,using spiral technique, without contrast administration. Reformattedimages in the coronal and sagittal planes were generated from the axialdata set to facilitate diagnostic accuracy and/or surgical planning. Total DLP (Dose-Length Product): 2138. Please note: The reported valuerepresents the total of one or more individual components during the CTacquisition on this date and at this time, and as such, the same value mayappear in more than one CT report depending on the interpreting/reportingphysicians. COMPARISON: None. FINDINGS: Cervical Spine: Vertebrae: No acute vertebral body compression. Mild attenuation of thedisc space at C5/6, associated uncovertebral joint hypertrophy. Mildmultilevel facet arthropathy. Dens intact. Posterior skull base intact. Noacute cervical spine fracture. Alignment: No acute traumatic subluxation. Paraspinal Soft Tissues: No paraspinal hematoma. Lung Apices: No pneumothorax at the lung apices. Thoracic Spine: Vertebrae: No acute vertebral body compression. Mild facet arthropathy ofthe thoracic spine. Posterior elements and the adjacent posterior medialribs are intact. Alignment: No traumatic subluxation. Paraspinal Soft Tissues: No paraspinal hematoma. Lumbar Spine: Vertebrae: No acute vertebral body compression. Multilevel tiny endplateosteophytes. Lower lumbar and lumbosacral facet arthropathy. The posteriororbits otherwise intact. The SI joints do not appear to be widened.Visualized portion of the sacrum appears intact. Alignment: No traumatic subluxation. Paraspinal Soft Tissues: No paraspinal hematoma. IMPRESSION: Degenerative changes of cervical, thoracic,and lumbar spine withoutevidence of acute osseous injury, or acute traumatic malalignment. CRITICAL RESULT: No. COMMUNICATION: Per this written report. Drafted by Jose Del Rosario MD on 08/07/2023 8:39 PM Final report signed by Jose Del Rosario MD on 08/07/2023 8:44 PM Silverio Torres DO IMG CT PROCEDURES Final Result * CT Thoracic Spine wo IV Contrast (08/07/2023 7:54 PM EDT) Anatomical Region Laterality Modality Spine, T-spine Computed Tomogra phy Impressions 08/07/2023 8:44 PM EDT Degenerative changes of cervical, thoracic,and lumbar spine without evidence of acute osseous injury, or acute traumatic malalignment. CRITICAL RESULT: ?? No. ?? COMMUNICATION: Per this written report. Drafted by Jose Del Rosario MD on 08/07/2023 8:39 PM Final report signed by Jose Del Rosario MD on 08/07/2023 8:44 PM Narrative 08/07/2023 8:44 PM EDT CLINICAL INDICATION: poly trauma TECHNIQUE: Imaging of the entire cervical, thoracic, and lumbar spine was performed, using spiral technique, without contrast administration. Reformatted images in the coronal and sagittal planes were generated from the axial data set to facilitate diagnostic accuracy and/or surgical planning. Total DLP (Dose-Length Product): 2138. Please note: The reported value represents the total of one or more individual components during the CT acquisition on this date and at this time, and as such, the same value may appear in more than one CT report depending on the interpreting/reporting physicians. COMPARISON: None. FINDINGS: Cervical Spine: Vertebrae: No acute vertebral body compression. Mild attenuation of the disc space at C5/6, associated uncovertebral joint hypertrophy. Mild multilevel facet arthropathy. Dens intact. Posterior skull base intact. No acute cervical spine fracture. Alignment: No acute traumatic subluxation. Paraspinal Soft Tissues: No paraspinal hematoma. Lung Apices: No pneumothorax at the lung apices. Thoracic Spine: Vertebrae: No acute vertebral body compression. Mild facet arthropathy of the thoracic spine. Posterior elements and the adjacent posterior medial ribs are intact. Alignment: No traumatic subluxation. Paraspinal Soft Tissues: No paraspinal hematoma. Lumbar Spine: Vertebrae: No acute vertebral body compression. Multilevel tiny endplate osteophytes. Lower lumbar and lumbosacral facet arthropathy. The posterior orbits otherwise intact. The SI joints do not appear to be widened. Visualized portion of the sacrum appears intact. Alignment: No traumatic subluxation. Paraspinal Soft Tissues: No paraspinal hematoma. Procedure Note Jose Del Rosario MD - 08/07/2023 CLINICAL INDICATION: poly trauma TECHNIQUE: Imaging of the entire cervical, thoracic, and lumbar spine was performed,using spiral technique, without contrast administration. Reformattedimages in the coronal and sagittal planes were generated from the axialdata set to facilitate diagnostic accuracy and/or surgical planning. Total DLP (Dose-Length Product): 2138. Please note: The reported valuerepresents the total of one or more individual components during the CTacquisition on this date and at this time, and as such, the same value mayappear in more than one CT report depending on the interpreting/reportingphysicians. COMPARISON: None. FINDINGS: Cervical Spine: Vertebrae: No acute vertebral body compression. Mild attenuation of thedisc space at C5/6, associated uncovertebral joint hypertrophy. Mildmultilevel facet arthropathy. Dens intact. Posterior skull base intact. Noacute cervical spine fracture. Alignment: No acute traumatic subluxation. Paraspinal Soft Tissues: No paraspinal hematoma. Lung Apices: No pneumothorax at the lung apices. Thoracic Spine: Vertebrae: No acute vertebral body compression. Mild facet arthropathy ofthe thoracic spine. Posterior elements and the adjacent posterior medialribs are intact. Alignment: No traumatic subluxation. Paraspinal Soft Tissues: No paraspinal hematoma. Lumbar Spine: Vertebrae: No acute vertebral body compression. Multilevel tiny endplateosteophytes. Lower lumbar and lumbosacral facet arthropathy. The posteriororbits otherwise intact. The SI joints do not appear to be widened.Visualized portion of the sacrum appears intact. Alignment: No traumatic subluxation. Paraspinal Soft Tissues: No paraspinal hematoma. IMPRESSION: Degenerative changes of cervical, thoracic,and lumbar spine withoutevidence of acute osseous injury, or acute traumatic malalignment. CRITICAL RESULT: No. COMMUNICATION: Per this written report. Drafted by Jose Del Rosario MD on 08/07/2023 8:39 PM Final report signed by Jose Del Rosario MD on 08/07/2023 8:44 PM us Silverio Torres DO IMG CT PROCEDURES Final Result * CT Cervical Spine wo IV Contrast (08/07/2023 7:54 PM EDT) Anatomical Region Laterality Modality Spine, C-spine Computed Tomogra phy Impressions 08/07/2023 8:44 PM EDT Degenerative changes of cervical, thoracic,and lumbar spine without evidence of acute osseous injury, or acute traumatic malalignment. CRITICAL RESULT: ?? No. ?? COMMUNICATION: Per this written report. Drafted by Jose Del Rosario MD on 08/07/2023 8:39 PM Final report signed by Jose Del Rosario MD on 08/07/2023 8:44 PM Narrative 08/07/2023 8:44 PM EDT CLINICAL INDICATION: poly trauma TECHNIQUE: Imaging of the entire cervical, thoracic, and lumbar spine was performed, using spiral technique, without contrast administration. Reformatted images in the coronal and sagittal planes were generated from the axial data set to facilitate diagnostic accuracy and/or surgical planning. Total DLP (Dose-Length Product): 2138. Please note: The reported value represents the total of one or more individual components during the CT acquisition on this date and at this time, and as such, the same value may appear in more than one CT report depending on the interpreting/reporting physicians. COMPARISON: None. FINDINGS: Cervical Spine: Vertebrae: No acute vertebral body compression. Mild attenuation of the disc space at C5/6, associated uncovertebral joint hypertrophy. Mild multilevel facet arthropathy. Dens intact. Posterior skull base intact. No acute cervical spine fracture. Alignment: No acute traumatic subluxation. Paraspinal Soft Tissues: No paraspinal hematoma. Lung Apices: No pneumothorax at the lung apices. Thoracic Spine: Vertebrae: No acute vertebral body compression. Mild facet arthropathy of the thoracic spine. Posterior elements and the adjacent posterior medial ribs are intact. Alignment: No traumatic subluxation. Paraspinal Soft Tissues: No paraspinal hematoma. Lumbar Spine: Vertebrae: No acute vertebral body compression. Multilevel tiny endplate osteophytes. Lower lumbar and lumbosacral facet arthropathy. The posterior orbits otherwise intact. The SI joints do not appear to be widened. Visualized portion of the sacrum appears intact. Alignment: No traumatic subluxation. Paraspinal Soft Tissues: No paraspinal hematoma. Procedure Note Jose Del Rosario MD - 08/07/2023 CLINICAL INDICATION: poly trauma TECHNIQUE: Imaging of the entire cervical, thoracic, and lumbar spine was performed,using spiral technique, without contrast administration. Reformattedimages in the coronal and sagittal planes were generated from the axialdata set to facilitate diagnostic accuracy and/or surgical planning. Total DLP (Dose-Length Product): 2138. Please note: The reported valuerepresents the total of one or more individual components during the CTacquisition on this date and at this time, and as such, the same value mayappear in more than one CT report depending on the interpreting/reportingphysicians. COMPARISON: None. FINDINGS: Cervical Spine: Vertebrae: No acute vertebral body compression. Mild attenuation of thedisc space at C5/6, associated uncovertebral joint hypertrophy. Mildmultilevel facet arthropathy. Dens intact. Posterior skull base intact. Noacute cervical spine fracture. Alignment: No acute traumatic subluxation. Paraspinal Soft Tissues: No paraspinal hematoma. Lung Apices: No pneumothorax at the lung apices. Thoracic Spine: Vertebrae: No acute vertebral body compression. Mild facet arthropathy ofthe thoracic spine. Posterior elements and the adjacent posterior medialribs are intact. Alignment: No traumatic subluxation. Paraspinal Soft Tissues: No paraspinal hematoma. Lumbar Spine: Vertebrae: No acute vertebral body compression. Multilevel tiny endplateosteophytes. Lower lumbar and lumbosacral facet arthropathy. The posteriororbits otherwise intact. The SI joints do not appear to be widened.Visualized portion of the sacrum appears intact. Alignment: No traumatic subluxation. Paraspinal Soft Tissues: No paraspinal hematoma. IMPRESSION: Degenerative changes of cervical, thoracic,and lumbar spine withoutevidence of acute osseous injury, or acute traumatic malalignment. CRITICAL RESULT: No. COMMUNICATION: Per this written report. Drafted by Jose Del Rosario MD on 08/07/2023 8:39 PM Final report signed by Jose Del Rosario MD on 08/07/2023 8:44 PM Silverio Torres DO IMG CT PROCEDURES Final Result * CT Face wo IV Contrast (08/07/2023 7:54 PM EDT) Anatomical Region Laterality Modality Facial bones Computed Tomogra phy Impressions 08/07/2023 9:09 PM EDT No acute intracranial abnormality. No acute facial bone fracture. Contusion, laceration, and small hematoma of the superior left frontal scalp with associated subcutaneous emphysema which extends into the midline frontal scalp and into the left periorbital soft tissues. Contusion of the left cheek. CRITICAL RESULT: ?? No. COMMUNICATION: Per this written report. Drafted by Marie Urbano MD on 08/07/2023 8:56 PM Final report signed by Marie Urbano MD on 08/07/2023 9:09 PM Narrative 08/07/2023 9:09 PM EDT CLINICAL INDICATION: poly trauma TECHNIQUE: Routine contiguous axial CT images of the head and face were obtained without contrast administration. ??The axial dataset through the face was used to reconstruct images in the sagittal and coronal planes. TOTAL DLP (Dose-Length Product): 2137.53 mGy.cm. Please note: The reported value represents the total of one or more individual components during the CT acquisition on this date and at this time, and as such, the same value may appear in more than one CT report depending on the interpreting/reporting physicians. COMPARISON: None. FINDINGS: CT Head: No acute intracranial abnormality. No evidence of acute hemorrhage or ischemia. No mass, mass effect, or midline displacement of structures. Normal ventricular size and configuration. ??Patent basal cisterns. 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 Mild generalized cerebral atrophy. Mild white matter changes which are nonspecific but commonly seen with small vessel ischemic disease. No displaced or depressed calvarial fractures. The mastoid air cells are clear. Contusion, laceration, and small hematoma of the superior left frontal scalp which extends into the midline frontal scalp and into the left periorbital soft tissues.. CT Face: Facial bones: No acute facial bone fracture. Patient is edentulous. Paranasal sinuses: Retention cyst is present within the right maxillary sinus. Globes: Bilateral globes appear intact. Soft tissues: Left frontal parietal scalp contusion and laceration as described above. Mild soft tissue swelling of the left cheek. Procedure Note True, Marie Mcneill MD - 08/07/2023 CLINICAL INDICATION: poly trauma TECHNIQUE: Routine contiguous axial CT images of the head and face were obtainedwithout contrast administration. The axial dataset through the face wasused to reconstruct images in the sagittal and coronal planes. TOTAL DLP (Dose-Length Product): 2137.53 mGy.cm. Please note: The reportedvalue represents the total of one or more individual components during theCT acquisition on this date and at this time, and as such, the same valuemay appear in more than one CT report depending on theinterpreting/reporting physicians. COMPARISON: None. FINDINGS: CT Head: No acute intracranial abnormality. No evidence of acute hemorrhage orischemia. No mass, mass effect, or midline displacement of structures.Normal ventricular size and configuration. Patent basal cisterns. Smalllow-attenuation focus is present within the left cerebellum likelyrepresenting sequela of old infarction. Mild generalized cerebral atrophy.Mild white matter changes which are nonspecific but commonly seen withsmall vessel ischemic disease. No displaced or depressed calvarial fractures. The mastoid air cells areclear. Contusion, laceration, and small hematoma of the superior leftfrontal scalp which extends into the midline frontal scalp and into theleft periorbital soft tissues.. CT Face: Facial bones: No acute facial bone fracture. Patient is edentulous. Paranasal sinuses: Retention cyst is present within the right maxillarysinus. Globes: Bilateral globes appear intact. Soft tissues: Left frontal parietal scalp contusion and laceration asdescribed above. Mild soft tissue swelling of the left cheek. IMPRESSION: No acute intracranial abnormality. No acute facial bone fracture. Contusion, laceration, and small hematoma of the superior left frontalscalp with associated subcutaneous emphysema which extends into themidline frontal scalp and into the left periorbital soft tissues.Contusion of the left cheek. CRITICAL RESULT: No. COMMUNICATION: Per this written report. Drafted by Marie Urbano MD on 08/07/2023 8:56 PM Final report signed by aMrie Urbano MD on 08/07/2023 9:09 PM Silverio Torres DO IMG CT PROCEDURES Final Result * CT Head wo IV Contrast (08/07/2023 7:54 PM EDT) Anatomical Region Laterality Modality Head Computed Tomogra phy Impressions 08/07/2023 9:09 PM EDT No acute intracranial abnormality. No acute facial bone fracture. Contusion, laceration, and small hematoma of the superior left frontal scalp with associated subcutaneous emphysema which extends into the midline frontal scalp and into the left periorbital soft tissues. Contusion of the left cheek. CRITICAL RESULT: ?? No. COMMUNICATION: Per this written report. Drafted by Marie Urbano MD on 08/07/2023 8:56 PM Final report signed by Marie Urbano MD on 08/07/2023 9:09 PM Narrative 08/07/2023 9:09 PM EDT CLINICAL INDICATION: poly trauma TECHNIQUE: Routine contiguous axial CT images of the head and face were obtained without contrast administration. ??The axial dataset through the face was used to reconstruct images in the sagittal and coronal planes. TOTAL DLP (Dose-Length Product): 2137.53 mGy.cm. Please note: The reported value represents the total of one or more individual components during the CT acquisition on this date and at this time, and as such, the same value may appear in more than one CT report depending on the interpreting/reporting physicians. COMPARISON: None. FINDINGS: CT Head: No acute intracranial abnormality. No evidence of acute hemorrhage or ischemia. No mass, mass effect, or midline displacement of structures. Normal ventricular size and configuration. ??Patent basal cisterns. 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 Mild generalized cerebral atrophy. Mild white matter changes which are nonspecific but commonly seen with small vessel ischemic disease. No displaced or depressed calvarial fractures. The mastoid air cells are clear. Contusion, laceration, and small hematoma of the superior left frontal scalp which extends into the midline frontal scalp and into the left periorbital soft tissues.. CT Face: Facial bones: No acute facial bone fracture. Patient is edentulous. Paranasal sinuses: Retention cyst is present within the right maxillary sinus. Globes: Bilateral globes appear intact. Soft tissues: Left frontal parietal scalp contusion and laceration as described above. Mild soft tissue swelling of the left cheek. Procedure Note True, Marie Mcneill MD - 08/07/2023 CLINICAL INDICATION: poly trauma TECHNIQUE: Routine contiguous axial CT images of the head and face were obtainedwithout contrast administration. The axial dataset through the face wasused to reconstruct images in the sagittal and coronal planes. TOTAL DLP (Dose-Length Product): 2137.53 mGy.cm. Please note: The reportedvalue represents the total of one or more individual components during theCT acquisition on this date and at this time, and as such, the same valuemay appear in more than one CT report depending on theinterpreting/reporting physicians. COMPARISON: None. FINDINGS: CT Head: No acute intracranial abnormality. No evidence of acute hemorrhage orischemia. No mass, mass effect, or midline displacement of structures.Normal ventricular size and configuration. Patent basal cisterns. Smalllow-attenuation focus is present within the left cerebellum likelyrepresenting sequela of old infarction. Mild generalized cerebral atrophy.Mild white matter changes which are nonspecific but commonly seen withsmall vessel ischemic disease. No displaced or depressed calvarial fractures. The mastoid air cells areclear. Contusion, laceration, and small hematoma of the superior leftfrontal scalp which extends into the midline frontal scalp and into theleft periorbital soft tissues.. CT Face: Facial bones: No acute facial bone fracture. Patient is edentulous. Paranasal sinuses: Retention cyst is present within the right maxillarysinus. Globes: Bilateral globes appear intact. Soft tissues: Left frontal parietal scalp contusion and laceration asdescribed above. Mild soft tissue swelling of the left cheek. IMPRESSION: No acute intracranial abnormality. No acute facial bone fracture. Contusion, laceration, and small hematoma of the superior left frontalscalp with associated subcutaneous emphysema which extends into themidline frontal scalp and into the left periorbital soft tissues.Contusion of the left cheek. CRITICAL RESULT: No. COMMUNICATION: Per this written report. Drafted by Marie Urbano MD on 08/07/2023 8:56 PM Final report signed by Marie Urbano MD on 08/07/2023 9:09 PM Silverio Torres DO IMG CT PROCEDURES Final Result * Type and Screen (08/07/2023 7:45 PM EDT) ABO/Rh O Positive 08/07/2023 7:21 PM EDT BLOOD BANK Antibody Screen Negative 08/07/2023 7:21 PM EDT BLOOD BANK Specimen Expiration 08/10/2023 23:59 08/07/2023 7:21 PM EDT BLOOD BANK Blood Venous blood specimen / Unknown Venipuncture / Unknown 08/07/2023 7:45 PM EDT 08/07/2023 7:51 PM EDT Guille Badillo MD LAB BLOOD BANK TEST ORDERAB LES Final Result BLOOD BANK [address] [place] [address], * Test Qualitative Plasma (08/07/2023 7:45 PM EDT) Test Negative Negative 08/07/2023 8:15 PM EDT [facility] Blood Venous blood specimen / Unknown Venipuncture / Unknown 08/07/2023 7:45 PM EDT 08/07/2023 7:49 PM EDT Narrative [facility] - 08/07/2023 8:15 PM EDT Reference Range: Males and non- females: Negative. Guille Badillo MD LAB BLOOD ORDERABLES Final Result Performing Organization Address [facility]/ZIP Co de Phone Number HEALTHCARE LAB [address] [place] [address] * APTT (PTT) (08/07/2023 7:45 PM EDT) aPTT 25 25 - 35 sec 08/07/2023 8:09 PM EDT [facility]ALTH[facility]ARE LAB Blood Venous blood specimen / Unknown Venipuncture / Unknown 08/07/2023 7:45 PM EDT 08/07/2023 7:49 PM EDT Guille Badillo MD LAB BLOOD ORDERABLES Final Result Performing Organization Address [facility] de Phone Number HEALTHCARE LAB [address] [place] [address] * (ABNORMAL) PT-INR (08/07/2023 7:45 PM EDT) Prothrombin Time 14.6(H) 12.0 - 14.3 sec 08/07/2023 8:08 PM EDT [facility] INR 1.2(H) 0.9 - 1.1 08/07/2023 8:08 PM EDT [facility] Blood Venous blood specimen / Unknown Venipuncture / Unknown 08/07/2023 7:45 PM EDT 08/07/2023 7:49 PM EDT Narrative [facility] - 08/07/2023 8:08 PM EDT OPTIMAL INR RANGES FOR PATIENT ON ORAL ANTICOAGULANT THERAPY Prevention of venous thromboembolism ?INR 2.0 to 3.0 In patients with heart disease: Atrial fibrillation ?INR 2.0 to 3.0 Valvular heart disease ? INR 2.0 to 3.0 Tissue heart valves ?INR 2.0 to 3.0 Mechanical prosthetic valves ? INR 2.5 to 3.5 Prevention of recurrent CA ? INR 2.5 to 3.5 Guille Badillo MD LAB BLOOD ORDERABLES Final Result [facility] [address] [place] [address] * (ABNORMAL) CBC w/o diff (08/07/2023 7:45 PM EDT) WBC Count 5.55 3.70 - 10.30 10*3/uL LAB HEMATOLOGY METHOD 08/07/2023 7:51 PM EDT [facility] RBC Count 3.41(L) 3.90 - 5.20 10*6/uL LAB HEMATOLOGY METHOD 08/07/2023 7:51 PM EDT [facility]ALTH[facility] HGB 11.0(L) 11.2 - 15.7 g/dL LAB HEMATOLOGY METHOD 08/07/2023 7:51 PM EDT [facility] HCT 34.8 34.0 - 45.0 % LAB HEMATOLOGY METHOD 08/07/2023 7:51 PM EDT [facility] Platelet Count 138(L) 155 - 369 10*3/uL LAB HEMATOLOGY METHOD 08/07/2023 7:51 PM EDT [facility] MCV 102(H) 79 - 98 fL LAB HEMATOLOGY METHOD 08/07/2023 7:51 PM EDT [facility] MCH 32.3(H) 26.0 - 32.0 pg LAB HEMATOLOGY METHOD 08/07/2023 7:51 PM EDT [facility] MCHC 31.6 30.7 - 35.5 g/dL LAB HEMATOLOGY METHOD 08/07/2023 7:51 PM EDT [facility]ALTH[facility] RDW 13.5 11.5 - 14.5 % LAB HEMATOLOGY METHOD 08/07/2023 7:51 PM EDT [facility]ALTH[facility] MPV 12.7(H) 8.8 - 12.5 fL LAB HEMATOLOGY METHOD 08/07/2023 7:51 PM EDT [facility] nRBC 0.0 <=0.0 per 100 WBCs LAB HEMATOLOGY METHOD 08/07/2023 7:51 PM EDT [facility] Blood Venous blood specimen / Unknown Venipuncture / Unknown 08/07/2023 7:45 PM EDT 08/07/2023 7:49 PM EDT Guille Badillo MD LAB BLOOD ORDERABLES Final Result Performing Organization Address City/State/[facility] Co de Phone Number [facility] [address] [place] [address] * (ABNORMAL) CMP (08/07/2023 7:45 PM EDT) Glucose, Plasma 84 74 - 99 mg/dL 08/07/2023 8:15 PM EDT [facility] BUN, Plasma 16 10 - 31 mg/dL 08/07/2023 8:15 PM EDT [facility] Creatinine, Plasma 0.74 0.60 - 1.30 mg/dL 08/07/2023 8:15 PM EDT [facility] BUN/Creatinine Ratio 22 08/07/2023 8:15 PM EDT [facility] Sodium, Plasma 137 136 - 145 mmol/L 08/07/2023 8:15 PM EDT [facility] Potassium, Plasma 3.7 3.7 - 4.8 mmol/L 08/07/2023 8:15 PM EDT [facility] Chloride, Plasma 105 97 - 107 mmol/L 08/07/2023 8:15 PM EDT [facility] CO2, Plasma 24 22 - 29 mmol/L 08/07/2023 8:15 PM EDT [facility] Anion Gap 8 6 - 16 mmol/L 08/07/2023 8:15 PM EDT [facility] Total Calcium, Plasma 8.6(L) 8.9 - 10.2 mg/dL 08/07/2023 8:15 PM EDT [facility] Total Protein 6.2(L) 6.3 - 7.9 g/dL 08/07/2023 8:15 PM EDT [facility] Albumin, Plasma 3.4(L) 3.5 - 5.2 g/dL 08/07/2023 8:15 PM EDT [facility] AST, Plasma 73(H) 10 - 35 U/L 08/07/2023 8:15 PM EDT [facility] ALT, Plasma 27 10 - 35 U/L 08/07/2023 8:15 PM EDT [facility] Alkaline Phosphatase, Plasma 111 46 - 142 U/L 08/07/2023 8:15 PM EDT [facility] Total Bilirubin, Plasma 0.3 0.2 - 1.1 mg/dL 08/07/2023 8:15 PM EDT [facility] eGFRcr 62.7 mL/min/1.7 3m*2 08/07/2023 8:15 PM EDT [facility] Comment:Reported eGFRcr in m L/min/1.73m2 is based the CKD-EPI 2020 equation that does not use a race coefficient. Blood Venous blood specimen / Unknown Venipuncture / Unknown 08/07/2023 7:45 PM EDT 08/07/2023 7:49 PM EDT us Guille Badillo MD LAB BLOOD ORDERABLES Final Result Performing Organization Address City/State/[facility] Co de Phone Number [facility] [address] [place] [address] * XR Pelvis 1 or 2 Views (08/07/2023 7:41 PM EDT) Anatomical Region Laterality Modality Body, Pelvis Digital Radiogra phy Impressions 08/07/2023 8:28 PM EDT No acute findings. CRITICAL RESULT: ?? No. COMMUNICATION: Per this written report. Preliminary report signed by Ramiro Meza MD on 08/07/2023 8:18 PM By electronically signing this report, I, the attending physician, attest that I have personally reviewed the images/data for the above examination(s) and agree with the final edited report. Drafted by Ramiro Meza MD on 08/07/2023 8:17 PM Final report signed by Marie Urbano MD on 08/07/2023 8:28 PM Narrative 08/07/2023 8:28 PM EDT CLINICAL INDICATION: Trauma Alert Red TECHNIQUE: XR CHEST 1 VIEW, XR PELVIS 1 OR 2 VIEWS COMPARISON: None. FINDINGS: Chest: Unremarkable cardiomediastinal silhouette. No consolidation. No pneumothorax or pleural effusion. No acute displaced rib fracture. Pelvis: No acute fracture or malalignment. No SI joint or pubic symphysis diastasis. Procedure Note Marie Urbano MD - 08/07/2023 CLINICAL INDICATION: Trauma Alert Red TECHNIQUE: XR CHEST 1 VIEW, XR PELVIS 1 OR 2 VIEWS COMPARISON: None. FINDINGS: Chest: Unremarkable cardiomediastinal silhouette. No consolidation. Nopneumothorax or pleural effusion. No acute displaced rib fracture. Pelvis: No acute fracture or malalignment. No SI joint or pubic symphysisdiastasis. IMPRESSION: No acute findings. CRITICAL RESULT: No. COMMUNICATION: Per this written report. Preliminary report signed by Ramiro Meza MD on 08/07/2023 8:18 PM By electronically signing this report, I, the attending physician, attestthat I have personally reviewed the images/data for the aboveexamination(s) and agree with the final edited report. Drafted by Ramiro Meza MD on 08/07/2023 8:17 PM Final report signed by Marie Urbano MD on 08/07/2023 8:28 PM us Guille Badillo MD IMG XR PROCEDURES Final Res ult * XR Chest 1 View (08/07/2023 7:41 PM EDT) Anatomical Region Laterality Modality Chest Digital Radiogra phy Impressions 08/07/2023 8:28 PM EDT No acute findings. CRITICAL RESULT: ?? No. COMMUNICATION: Per this written report. Preliminary report signed by Ramiro Meza MD on 08/07/2023 8:18 PM By electronically signing this report, I, the attending physician, attest that I have personally reviewed the images/data for the above examination(s) and agree with the final edited report. Drafted by Ramiro Meza MD on 08/07/2023 8:17 PM Final report signed by Marie Urbano MD on 08/07/2023 8:28 PM Narrative 08/07/2023 8:28 PM EDT CLINICAL INDICATION: Trauma Alert Red TECHNIQUE: XR CHEST 1 VIEW, XR PELVIS 1 OR 2 VIEWS COMPARISON: None. FINDINGS: Chest: Unremarkable cardiomediastinal silhouette. No consolidation. No pneumothorax or pleural effusion. No acute displaced rib fracture. Pelvis: No acute fracture or malalignment. No SI joint or pubic symphysis diastasis. Procedure Note Marie Urbano MD - 08/07/2023 CLINICAL INDICATION: Trauma Alert Red TECHNIQUE: XR CHEST 1 VIEW, XR PELVIS 1 OR 2 VIEWS COMPARISON: None. FINDINGS: Chest: Unremarkable cardiomediastinal silhouette. No consolidation. Nopneumothorax or pleural effusion. No acute displaced rib fracture. Pelvis: No acute fracture or malalignment. No SI joint or pubic symphysisdiastasis. IMPRESSION: No acute findings. CRITICAL RESULT: No. COMMUNICATION: Per this written report. Preliminary report signed by Ramiro Meza MD on 08/07/2023 8:18 PM By electronically signing this report, I, the attending physician, attestthat I have personally reviewed the images/data for the aboveexamination(s) and agree with the final edited report. Drafted by Ramiro Meza MD on 08/07/2023 8:17 PM Final report signed by Marie Urbano MD on 08/07/2023 8:28 PM us Guille Badillo MD IMG XR PROCEDURES Final Res ult documented in this encounter Visit Diagnoses Diagnosis Fall against sharp object, initial encounter- Primary Fall against sharp object, initial encounter Laceration of forehead, initial encounter HTN (hypertension) Unspecified essential hypertension Pacemaker Cardiac pacemaker in situ COPD (chronic obstructive pulmonary disease) (CMS/HCC) Chronic airway obstruction, not elsewhere classified ABLA (acute blood loss anemia) Anemia Unspecified anemia Coagulation test abnormality Abnormal coagulation profile Hypocalcemia Malnourished (CMS/HCC) Unspecified protein-calorie malnutrition Elevated SGOT (AST) Nonspecific elevation of levels of transaminase or lactic acid dehydrogenase (LDH) Scalp laceration, initial encounter Hypomagnesemia Disorders of magnesium metabolism 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 Cerebral atrophy (CMS/HCC) Unspecified cerebral degeneration Small vessel disease (CMS/HCC) Unspecified peripheral vascular disease Retention cyst of nasal cavity Other diseases of nasal cavity and sinuses Multilevel degenerative joint disease of spine documented in this encounter Admitting Diagnoses Diagnosis Fall against sharp object, initial encounter documented in this encounter Administered Medications Inactive Administered Medications - up to 3 most recent administrations Medication Order MAR Action Action Date Dose Rate Site acetaminophen (Tylenol) tablet 500 mg 500 mg, Oral, Every 6 hours scheduled, First dose on 08/08/23 at 0000, Until Discontinued, Routine Given 08/08/2023 8:55 AM EDT 500 mg Given 08/08/2023 2:37 AM EDT 500 mg acetaminophen (Tylenol) tablet 650 mg 650 mg, Oral, Every 6 hours scheduled, First dose (after last modification) on 08/08/23 at 1430, Until Discontinued, Routine dextrose 5 % and lactated Ringer's infusion 100 mL/hr, Intravenous, Continuous, Starting on Thu08/07/23 at 2335, Until Thu08/08/23 at 0549, Routine New Bag 08/08/2023 2:38 AM EDT 100 mL/hr 100 mL /hr HYDROmorphone (Dilaudid) injection 0.25 mg 0.25 mg, Intravenous, Once, 1 dose, On 08/08/23 at 0040, Routine Given 08/08/2023 12:53 AM EDT 0.25 mg ketorolac (Toradol) injection 15 mg 15 mg, Intravenous, Once, 1 dose, On 08/08/23 at 1115, Routine Given 08/08/2023 11:44 AM EDT 15 mg lidocaine (Xylocaine) 1 % injection 10 mL 10 mL, Infiltration, Once, 1 dose, On Thu08/07/23 at 2330, Routine Given 08/07/2023 11:46 PM EDT 10 mL morphine PF 2 mg 2 mg, Intravenous, Once, 1 dose, On Thu08/08/23 at 0300, Routine Given 08/08/2023 3:06 AM EDT 2 mg morphine PF 4 mg 4 mg, Intravenous, Once, 1 dose, On Thu08/07/23 at 2155, STAT Given 08/07/2023 10:02 PM EDT 4 mg ondansetron (Zofran) injection 4 mg 4 mg, Intravenous, Every 6 hours PRN, Starting on Thu08/07/23 at 2330, Until 08/08/23 at 2116, Routine, nausea, vomiting oxyCODONE (Roxicodone) immediate release tablet 5 mg 5 mg, Oral, Every 6 hours PRN, Starting on Thu08/08/23 at 0612, Until 08/08/23 at 2116, Routine, severe pain Given 08/08/2023 3:00 PM EDT 5 mg Given 08/08/2023 6:31 AM EDT 5 mg sodium chloride 0.9 % flush 10 mL 10 mL, Intravenous, Every 12 hours PRN, Starting on Thu08/07/23 at 2328, Until 08/08/23 at 2116, Routine, line care sodium chloride 0.9 % flush 10 mL 10 mL, Intravenous, As needed, Starting on Thu08/07/23 at 2328, Until 08/08/23 at 2116, Routine, line care, Before and after each medication infusion documented in this encounter Active and Recently Administered Medications Times are shown in EDT. Scheduled Medication Order 2023 08/07/2023 08/08/2023 acetaminophen (Tylenol) tablet 500 mg (CANCELED) 500 mg, Oral, Every 6 hours scheduled, First dose on 08/08/23 at 0000, Until Discontinued, Routine 0237 (Given - Provid er: Cherie Bowen)0855 (Given - Provider: Marcin Isidro) acetaminophen (Tylenol) tablet 650 mg 650 mg, Oral, Every 6 hours scheduled, First dose (after last modification) on 08/08/23 at 1430, Until Discontinued, Routine 1451 (Not Given - Provider: Marcin Isidro - Reason: Patient/family refused)2030 (Canceled Entry - Provider: Automatic Discharge Provider - Comment: Automatically canceled at discontinue of medication order) HYDROmorphone (Dilaudid) injection 0.25 mg (COMPLETED) 0.25 mg, Intravenous, Once, 1 dose, On 08/08/23 at 0040, Routine 0053 (Given - Provid er: Bree Beaulieu) ketorolac (Toradol) injection 15 mg (COMPLETED) 15 mg, Intravenous, Once, 1 dose, On 08/08/23 at 1115, Routine 1144 (Given - Provid er: Marcin Isidro) lidocaine (Xylocaine) 1 % injection 10 mL (COMPLETED) 10 mL, Infiltration, Once, 1 dose, On Thu08/07/23 at 2330, Routine 2346 (Given - Provider: Bree Beaulieu - Comment: admin by provider doing lac) morphine PF 2 mg (COMPLETED) 2 mg, Intravenous, Once, 1 dose, On 08/08/23 at 0300, Routine 0306 (Given - Provid er: Dayanara Brennan) morphine PF 4 mg (COMPLETED) 4 mg, Intravenous, Once, 1 dose, On Thu08/07/23 at 2155, STAT 2202 (Given - Provider: Bree Beaulieu) Continuous Medication Order 2023 08/07/2023 08/08/2023 dextrose 5 % and lactated Ringer's infusion (CANCELED) 100 mL/hr, Intravenous, Continuous, Starting on Thu08/07/23 at 2335, Until 08/08/23 at 0549, Routine 0238 (New Bag - Prov ider: Cherie Bowen)0632 (Stopped - Provider: Cherie Bowen) PRN Medication Order 2023 08/07/2023 08/08/2023 ondansetron (Zofran) injection 4 mg 4 mg, Intravenous, Every 6 hours PRN, Starting on Thu08/07/23 at 2330, Until 08/08/23 at 2116, Routine, nausea, vomiting oxyCODONE (Roxicodone) immediate release tablet 5 mg 5 mg, Oral, Every 6 hours PRN, Starting on 08/08/23 at 0612, Until 08/08/23 at 2116, Routine, severe pain 0631 (Given - Provid er: Cherie Bowen)1500 (Given - Provider: Marcin Isidro) sodium chloride 0.9 % flush 10 mL(Linked Group 1) 10 mL, Intravenous, Every 12 hours PRN, Starting on Thu08/07/23 at 2328, Until 08/08/23 at 2116, Routine, line care sodium chloride 0.9 % flush 10 mL(Linked Group 1) 10 mL, Intravenous, As needed, Starting on Thu08/07/23 at 2328, Until 08/08/23 at 2116, Routine, line care, Before and after each medication infusion Linked Groups Order Group 1: Insert peripheral IV (COMPLETED) Once, On Thu08/07/23 at 2329, For 1 occurrence And Saline lock IV (COMPLETED) Once, On Thu08/07/23 at 2329, For 1 occurrence And sodium chloride 0.9 % flush 10 mLJump to med 10 mL, Intravenous, Every 12 hours PRN, Starting on Thu08/07/23 at 2328, Until 08/08/23 at 2116, Routine, line care And sodium chloride 0.9 % flush 10 mLJump to med 10 mL, Intravenous, As needed, Starting on Thu08/07/23 at 2328, Until 08/08/23 at 2116, Routine, line care, Before and after each medication infusion documented in this encounter Care Teams Night Cleaner Relationship Specialty Start Date End Date Pcp, Shea [address] [place] [address] PCP - General Family Medicine 08/07/23 documented as of this encounter
--- OUTSIDE RECORDS SUMMARY | 2024-09-27 08:56 | XMS_ITS | Encounter Summary ---
Author Organization [employer] Address [address] [place] [id number] Care Team Providers Care Licensed Veterinary Technician Name Role Phone Marly Kumar [employer] Primary Care Provider [phone] Encounter Details Date Type Department Care Team (Late st Contact Info) Description 07/26/2020 Transcribed Document [facility] Family Medicine [address] [place] [address] ProviderMiya MD [address] [place] [address] [phone] Social History Tobacco Use Types Packs/Day Years [...] Conversion Note - Miya ProviderMD - 07/26/2020 5:07 PM CDT EPILEPSY ADMISSION NOTE. DATE OF ADMISSION: 07/26/2020 ADMITTING PHYSICIAN: YADI SIDDIQI MD REASON FOR ADMISSION: Intractable epilepsy. HISTORY: This is a 64-year-old woman with long history of seizures that started in childhood. She has had seizures characterized by generalized stiffening and jerking in the past. She has had no recurrence of such episodes recently. She has had episodes of staring and decreased responsiveness. She had a change in her antiseizure medication regimen with the addition of levetiracetam because of suspicion of seizures in her sleep. PAST MEDICAL HISTORY: 1. Hypertension. 2. Osteoporosis. 3. Head trauma. PAST SURGICAL HISTORY: 1. Cholecystectomy. 2. Dental surgery. 3. Hysterectomy. 4. Hernia repair. ALLERGIES: 1. Alendronate. 2. Sulfa drugs. 3. Penicillin. MEDICATIONS AT HOME: 1. Amitriptyline 100 mg nightly. 2. Aspirin 81 mg daily. 3. Atorvastatin 40 mg daily. 4. Carvedilol 6.25 mg daily. 5. Cetirizine 10 mg daily. 6. Divalproex 1000 mg twice daily. 7. Aricept 10 mg daily. 8. Fenofibrate 145 mg daily. 9. Flonase 1 spray in both nostrils daily. 10. Furosemide 120 mg daily. 11. Levothyroxine 150 mcg daily. 12. Metformin 500 mg daily. 13. Niacin extended release 1000 mg daily. 14. Fish oil 1000 mg daily. 15. Omeprazole 40 mg daily. 16. Oxcarbazepine 300 mg twice daily. 17. Potassium chloride 20 mEq twice daily. 18. Florastor 250 mg daily. FAMILY HISTORY: Mental illness. SOCIAL HISTORY: She is a former smoker. She does not consume alcohol. REVIEW OF SYSTEMS: She has had symptoms of depression and anxiety, but denies suicidal ideation. She denies current symptoms referable to the cardiac, pulmonary, gastrointestinal or genitourinary systems. PHYSICAL EXAMINATION: BP: 153/81 ; HR: 65/min; RR: 18/min HEENT: Pupils are equal and reactive. NECK: Supple. Normal carotid pulses. NEUROLOGIC: Cranial nerves are normal. Full range of motion of extraocular muscles. Symmetric facial contractions. Normal tongue movements. Her motor examination was symmetric in the upper and lower extremities. COORDINATION: Normal [id number]. IMPRESSION: Ms. Perkins has a long history of intractable epilepsy. She has had no recent recognized seizures. She was suspected of having nocturnal events, and levetiracetam was added to her regimen. PLAN: 1. Admit to the epilepsy monitoring unit. 2. Start video EEG monitoring. 3. Discontinue levetiracetam. 4. Continue current doses of divalproex and oxcarbazepine. 5. Seizure precautions. 6. Lorazepam 2 mg IV for repetitive or prolonged seizures. /[id number] MD RAPHAEL Esquivel/AQ / TAF / MODL Electronically signed by Celestine, [facility] Conversion Compliance Vice President Cerner at 02/19/2023 6:42 PM CDT documented in this encounter Plan of Treatment Not on file documented as of this encounter Visit Diagnoses Not on filedocumented in this encounter Care Teams Licensed Veterinary Technician Relationship Specialty Start Date End Date Marly Kumar, DUNG [address] [place] [address] PCP - General Nurse Practitioner 09/22/24 documented as of this encounter
--- OUTSIDE RECORDS SUMMARY | 2024-09-27 08:56 | XMS_ITS | Encounter Summary ---
Author Organization Healthcare Address [address] [place] [address] Care Team Providers Care Gluer Name Role Phone Pcp, No Primary Care Provider Unavailabl e Encounter Details Date Type Department Care Team (Late st Contact Info) Description 08/14/2023 10:15 AM EDT [facility] Visit [facility] [address], [address] [place] [address] Shelley Gastelum, ORTHOPEDIC RADIOLOGIC TECHNOLOGIST [address] [place] [address] Scalp laceration, initial encounter (Primary Dx); Cellulitis of head except face Social History Tobacco Use Types Packs/Day Years [...] drink first t zander in the morning (EYE-ANTENNA DESIGN ENGINEER) to steady your nerves or to get [...] Entry Date Author No 08/08/2023 5:39 PM Kevin Schmidt RN documented in this encounter Miscellaneous Notes * Progress Notes - Shelley Gastelum, ORTHOPEDIC RADIOLOGIC TECHNOLOGIST - 08/14/2023 10:15 AM EDT 08/14/23 Eloy Perkins --- HPI --- Eloy Perkins is a 68 y.o. year old female who presents today for increased drainage and redness from laceration on forehead from fall on 08/07. Patient seen via tele health with daughter present. Patient forehead laceration noted to have dried blood at site with small amount of serosanguinous drainage. Site is erythematous and tender around edges. A scant amount of purulent discharge is expelled upon palpation of surrounding skin by daughter. Patient denies fever, chills and states painis controlled. Antibiotics sent to patients preferred pharmacy . Patient to follow up as needed. --- Social History --- reports that she has quit smoking. Her smoking use included cigarettes. She has never used smokeless tobacco. She reports that she does not currently use alcohol. She reports that she does not use drugs. --- Past Medical History --- Past Medical History: Diagnosis Date COPD (chronic obstructive pulmonary disease) ([facility]) HTN (hypertension) Pacemaker Seizures ([facility]) --- Past Surgical History --- No past surgical history on file. --- Vitals --- There were no vitals filed for this visit. --- Physical Exam --- Physical Exam HENT: Head: Normocephalic. Pulmonary: Effort: Pulmonary effort is normal. Skin: General: Skin is dry. Comments: Forehead laceration with dried blood; erythematous and tenderness noted around laceration. Neurological: General: No focal deficit present. Mental Status: She is alert. Psychiatric: Mood and Affect: Mood normal. BMI: There is no height or weight on file to calculate BMI. --- Current Medications --- Current Outpatient Medications Medication Sig Dispense Refill acetaminophen (Tylenol) 325 MG tablet Take 2 tablets (650 mg) by mouth every 6 (six) hours for 13 days. 100 tablet 0 cephalexin (Keflex) 250 MG capsule Take 2 capsules (500 mg) by mouth 4 (four) times a day for 7 days. 56 capsule 0 senna-docusate (Rosie-Colace) 8.6-50 MG tablet Take 1 tablet by mouth 1 (one) time each day for 10 days. 10 tablet 0 No current facility-administered medications for this visit. --- Assessment and Plan --- 1. Scalp laceration, initial encounter 2. Cellulitis of head except face Keep laceration clean and dry. Clean with soap and water Complete Abx course of keflex 500mg 4X daily X7 days Follow up as needed if s/s do not resolve Shelley Gastelum APRN documented in this encounter Plan of Treatment Not on file documented as of this encounter Visit Diagnoses Diagnosis Scalp laceration, initial encounter- Primary Cellulitis of head except face documented in this encounter Additional Health Concerns Assessment Noted Time A Body Mass Index follow-up plan has been documented for the patient 08/14/2023 12:22 PM EDT documented as of this encounter Care Teams Gluer Relationship Specialty Start Date End Date Pcp, Shea [address] [place] [address] PCP - General Family Medicine 08/07/23 documented as of this encounter
--- OUTSIDE RECORDS SUMMARY | 2024-09-27 08:56 | XMS_ITS | Encounter Summary ---
Author Organization Healthcare Address [address] [place] [address] Care Team Providers Care Traffic Circuit Engineer Name Role Phone Pcp, No Primary Care Provider Unavailabl e Encounter Details Date Type Department Care Team (Latest Contact Info) Description 08/07/2023 Travel Social History Tobacco Use Types Packs/Day Years Used Date Smoking Tobacco: Never Assessed CAGE ASSESSMENT Answer Date Recorded Cage unable [...] drink first t zander in the morning (EYE-PLANT CHANGER) to steady your nerves or to get [...] on filedocumented in this encounter Care Teams Traffic Circuit Engineer Relationship Specialty Start Date End Date Pcp, Shea [address] [place] [address] PCP - General Family Medicine 08/07/23 documented as of this encounter
--- OUTSIDE RECORDS SUMMARY | 2024-09-27 08:56 | XMS_ITS | Encounter Summary ---
Author Organization [employer] Address [address] [place] [address] Care Team Providers Care Superintendent Stations Name Role Phone Marly Kumar BOARDING KENNEL OR CATTERY OPERATOR Primary Care Provider [phone] Encounter Details Date Type Department Care Team (Late st Contact Info) Description 07/26/2020 Transcribed Document [facility] [place] [address] [place] [address] ProviderMiya MD [address] [place] [address] Social History Tobacco Use Types [...] Conversion Note - Miya ProviderMD - 07/26/2020 4:03 PM CDT On Going Discharge Planning Entered On: 07/26/2020 16:04 EDT Performed On: 07/26/2020 16:03 EDT by EDISON FONTANEZ, RN-Slip Box ChangerClinical Faculty Progress Note Discharge Arrangements : Patient Post-Acute [...] Referrals Sent to Post Acute Providers : No Does the Patient have a Floor to SNF Benefit? : No Is the Patient Meeting Medical Necessity : Yes Physician Agreeable to Move Forward with D/C Plan? : No Did you Attend Multidisciplinary Rounds? : No EDISON FONTANEZ, RN-Slip Box Changer - 07/26/2020 16:03 EDT Narrative Progress Note Narrative Progress Note : On continuous EEG monitoring. EDISON FONTANEZ RN-Slip Box Changer - 07/26/2020 16:03 EDT Electronically signed by [facility] Conversion Pediatrics Physician Cerner at 02/19/2023 6:34 PM CDT documented in this encounter Plan of Treatment Not on file documented as of this encounter Visit Diagnoses Not on filedocumented in this encounter Care Teams Superintendent Stations Relationship Specialty Start Date End Date Marly Kumar NP [address] [place] [address] PCP - General Nurse Practitioner 09/22/24 documented as of this encounter
--- OUTSIDE RECORDS SUMMARY | 2024-09-27 08:56 | XMS_ITS | Encounter Summary ---
Author Organization [facility] [employer] Address [address] [place] [address] Care Team Providers Care Patient Access Coordinator Name Role Phone Marly Kumar HYPNOTHERAPIST Primary Care Provider [phone] Encounter Details Date Type Department Care Team (Late st Contact Info) Description 07/26/2020 Transcribed Document [facility] [place] [address] [place] [address] ProviderMiya MD [address] [place], [place] [id number] Social History Tobacco Use Types Packs/Day Years [...] Conversion Note - Miya ProviderMD - 07/26/2020 3:58 PM CDT Initial Discharge Planning Entered On: 07/26/2020 16:03 EDT Performed On: 07/26/2020 15:58 EDT by EDISON FONTANEZ, RN-Wine Steward/Stewardess Initial Assessment I Previously Documented Living Environment : No qualifying data available. Living Situation : Extended care facility Patient Lives With : Family member(s) Is the Patient a Caregiver at Home? : No Emergency Contact #1 : Mckenna Mata Emergency Contact #1 Emergency Contact #1 Relationship : daughter Enter Doctors Name : Lane Pozo Does Patient have PCP Listed? : Yes Legal Guardian : No Is Guardianship Needed : No EDISON FONTANEZ, RN-Wine Steward/Stewardess - 07/26/2020 15:58 EDT Initial Assessment II Sensory and Motor Deficits : Weakness Deficit Description : uses a wheelchair for mobility Current Home Treatments and Equipment : Wheelchair Services and Community Resources : Transportation assistance Services and Community Resources Addl Comments : [facility] phone [phone] fax [phone] [employer] phone [phone] / [phone] Does the Patient have a Floor to SNF Benefit? : No EDISON FONTANEZ, RN-Wine Steward/Stewardess - 07/26/2020 15:58 EDT Discharge Needs I Anticipated Discharge Date : 07/28/2020 EDT Anticipated Discharge To, CM : Extended Care Facility Current Home Treatment/Equipment : Current Home Treatment/Equipment No qualifying data available. Post Acute/Home Treatments : None Documentation Status Complete : Yes EDISON FONTANEZ RN-Wine Steward/Stewardess - 07/26/2020 15:58 EDT Discharge Needs II Professional Skilled Services : Professional Skilled Services No qualifying data available. Needs Assistance with Transportation : Yes EDISON FONTANEZ, RN-Wine Steward/Stewardess - 07/26/2020 15:58 EDT Narrative Note Narrative Note : Pt from [facility] in [place]. Called Em at [facility]. She stated that pt has a bedhold. She stated that pt travels using [employer] (the bus). She stated that pt can return to the facility when she is discharged. EDISON FONTANEZ RN-Wine Steward/Stewardess - 07/26/2020 15:58 EDT documented in this encounter Plan of Treatment Not on file documented as of this encounter Visit Diagnoses Not on filedocumented in this encounter Care Teams Patient Access Coordinator Relationship Specialty Start Date End Date Marly Kumar, DUNG [address] [place] [address] PCP - General Nurse Practitioner 09/22/24 documented as of this encounter
--- OUTSIDE RECORDS SUMMARY | 2024-09-27 08:56 | XMS_ITS | Encounter Summary ---
Author Organization Healthcare Address [address] [place] [address] Care Team Providers Care Bee Robber Name Role Phone Pcp, No Primary Care Provider Unavailabl e Encounter Details Date Type Department Care Team (Latest Contact Info) Description 08/14/2023 Travel Social History Tobacco Use Types Packs/Day [...] drink first t zander in the morning (EYE-GENERAL OFFICE DISPATCHER) to steady your nerves or to get [...] of Assessment Author Yes 08/08/2023 5:39 PM EDKevin Trujillo RN documented as of this encounter Mental Status * Because of a physical, mental, or emotional condition, do you have serious difficulty concentrating, remembering, or making decisions? (5 years old or older) Answer Entry Date Author No 08/08/2023 5:39 PM Kevin Schmidt RN documented in this encounter Plan of Treatment Not on file documented as of this encounter Visit Diagnoses Not on filedocumented in this encounter Additional Health Concerns Assessment Noted Time A Body Mass Index follow-up plan has been documented for the patient 08/14/2023 12:22 PM EDT documented as of this encounter Care Teams Bee Robber Relationship Specialty Start Date End Date Pcp, No [address] [place] [address] PCP - General Family Medicine 08/07/23 documented as of this encounter
--- OUTSIDE RECORDS SUMMARY | 2024-09-27 08:56 | XMS_ITS | Encounter Summary ---
Author Organization [facility] [employer] Address [address] [place] [address] Care Team Providers Care Direct Sales Representative Name Role Phone Marly Kumar COMMUNICATIONS CONSULTANT Primary Care Provider [phone] Encounter Details Date Type Department Care Team (Late st Contact Info) Description 07/26/2020 Transcribed Document [facility] [place] [address] [place] [address] ProviderMiya MD [address], [place] [id number] Social History Tobacco Use Types Packs/Day Years [...] Conversion Note - Miya ProviderMD - 07/26/2020 4:24 PM CDT Admission History, Adult Entered On: 07/26/2020 16:55 EDT Performed On: 07/26/2020 16:24 EDT by Courtney Kearns RN Advance Directive Patient has Advance Directive *Q : Yes, Advance Directive with the patient Advance Directive Type : CPR directive Copy Advance Directive Verified/on Chart : Yes Courtney Kearns RN - 07/26/2020 16:24 EDT Anesthesia/Transfusion History Family History of Anesthesia Reaction : No prior transfusion(s) Blood Transfusion Acceptable to Patient : Yes Transfusion History : Prior anesthesia without reaction Family History of Anesthesia Reaction : None Courtney Kearns RN - 07/26/2020 16:24 EDT Functional Assessment Living Situation : Rehabilitation unit/facility Patient Lives With : Alone Current Daily Living Assistance : ADLs, Housekeeping, Meals, Transportation Sensory Deficits : None Mobility Assistance Prior to Admission : Total assistance ANGEL Hx Falls Immediate/Within 3 Months : No Current Home Treatments : BiPAP Home Equipment : Wheelchair Wheelchair : Wheelchair, standard Professional Skilled Services : Nursing, Occupational therapy, Physical Therapy, office services assistant, Respiratory Therapy, Saxophone Teacher Courtney Kearns RN - 07/26/2020 16:24 EDT General Info Arrived From : [facility] Mode of Arrival on Unit : Wheelchair Patient Arrival Date/Time : 07/26/2020 12:00 EDT Legal Guardian : Care provider Legal Guardian : No Support Person/Patient Personal Clothing Laundry Aide : No Support Person/Pt Rep Name : Marie Perkins [phone] Want Family/Rep/Phys Notified of Admit : No Emergency Contact #1 : Mckenna Mata Emergency Contact #1 Emergency Contact #1 Relationship : daughter Emergency Contact #2 : n/a Emergency Contact #2 Phone Number : n/a Emergency Contact #2 Relationship : n/a Information Obtained From : Medical Record Primary Language : Sami Preferred Communication Mode : Verbal Communication Barrier : None Research Administrator Needed : No Objects to Sharing Info w Family : No Currently Lactating : No Status : Patient denies Clinical Trials Participant *Q : None CTP, None *Q : Yes Courtney Kearns RN - 07/26/2020 16:24 EDT Fall Risk Scales ABCs Fall Injury Risk Identification : None Injury Moderate to High Risk Interventions : Bed alarm on, Transport methods appropriate to patient ANGEL Hx Falls Immediate/Within 3 Months : No Angel Secondary Diagnosis : Yes ANGEL Use of Ambulatory Aid : Bed rest/Nurse assist ANGEL IV Therapy or IV Access : Yes Angel Gait/Transferring : Weak Angel Mental Status : Overestimates/Forgets limitations Angel Fall Risk Score : 60 ANGEL Fall Scale Risk Level : 46 or > High Risk [place] Fall Interventions : Adequate lighting, Bed in low position, Call device within reach, Fall prevention handout/education per facility policy, Frequent orientation to call device, Frequent orientation to surroundings, Hourly comfort/safety rounds, Non-slip footwear, Personal items within reach, Reinforced to call for assistance before getting out of bed, Room free of clutter/spills, Upper side-rails up, Wheels locked, Wires/Cords secured Fall Moderate to High Risk Interventions : Bed alarm on, Transport methods appropriate to patient Barriers to Learning : None evident Highest Level of Education : None Baseline Knowledge of Topic : Limited Teaching Method : Explanation Learning Style Preferences Family : None Learning Style Preferences Patient : Verbal explanation Teaching Evaluation : Verbalizes understanding Fall Risk Scale Calc Temp : 0 Courtney Kearns RN - 07/26/2020 16:24 EDT Health Histories Smoking Status : Never (less than 100 in lifetime; none in last 30 days) Smokeless Tobacco Status : Never Courtney Kearns RN - 07/26/2020 16:24 EDT Social History (As Of: 07/26/2020 16:55:08 EDT) Tobacco: Smoking Status Former smoker. Last Used: quit 4 years ago. (Last Updated: 02/25/2016 12:29:21 EDT by FELISHA AGGARWAL RN) Height and Weight, Clinical Dosing Height Source : Stated Height Entry Format : [place] Height, Feet : 4 ft(Converted to: 122 cm, 48 Inch) Height, Inches : 11 Inch(Converted to: 0 ft 11 Inch, 27.94 cm) Clinical Height : 149.86 cm Weight Source : Stated [place] Body Weight : 43 kg Courtney Kearns RN - 07/26/2020 16:24 EDT Estimated Weight Type of Weight Measurement Est : [place] Weight, est lb : 245 lb(Converted to: 111 kg) Estimated Clinical Dosing Weight : 111.36 kg Courtney Kearns RN - 07/26/2020 16:24 EDT Infectious Disease History Has the patient ever been tested for COVID-19? : Unable to obtain or unsure Does patient have symptoms of COVID-19? : No COVID19 Screening : Unknown Experiencing Infectious Disease Symptoms : No symptoms Physical contact outside [place] in the last 30 days : No Infectious Disease History : Chicken pox/Shingles, Influenza, Measles, Mumps Active Surveillance Screen Assessment : Pt transferred from SNF, LTC, [facility], or rehab hospital Active Surveillance Screen Positive : Yes Childhood Vaccinations Up to Date : N/A Exposure to Contagious Illness : Unknown Tuberculosis Symptoms : None Courtney Kearns RN - 07/26/2020 16:24 EDT Influenza Vaccine Asmt, Adult Previous Vaccines from Immunization Schedule : No qualifying data available. Influenza Immunization, Current Season : Unknown Inactivated Flu Vaccine Contraindications : No contraindications to inactivated influenza vaccine Transplant Workup/Recent Transplant : No Order for Influenza Vaccine : Declined Vaccination Courtney Kearns RN - 07/26/2020 16:24 EDT Pneumococcal Vaccine Previous Vaccines from Immunization Schedule : No qualifying data available. Pneumonia Immunization Received : Unknown Pneumococcal Risk Assessment < Age 65 : N/A- Patient 65 years of age or older Pneumococcal Vaccine Contraindications : No contraindications to pneumococcal vaccine Transplant Workup/Recent Transplant : No Order for Pneumococcal Vaccine : Declined Vaccination Courtney Kearns RN - 07/26/2020 16:24 EDT Nutrition History Feeding Ability : Set-up, Minimal assist Adaptive Feeding Equipment : None Adaptive Feeding Equipment : Regular Oral Medication Administration : By mouth Eating Poorly Due to Decreased Appetite : No Unplanned Weight Loss in Past 3-6 Months : No Malnutrition Screening Tool Total(mal) : 0 Malnutrition Screening Tool Risk Level : Patient not at risk Courtney Kearns RN - 07/26/2020 16:24 EDT [place] Suicide Severity Rating Scale (C-SSRS) CSSRS Past Month Wish to be : No CSSRS Past Month Suicidal Thoughts : No CSSRS Lifetime Suicide Behavior : No Suicide Severity Rating Score : 0 Suicide Severity Rating : No Additional Care Required at this time Thoughts of Harming/Killing Others : Unable to obtain Courtney Kearns RN - 07/26/2020 16:24 EDT Psychosocial History Currently in Unsafe Situation : No Restraining Order Against Another Person : No Do You Have a Support System? : Unable to obtain Hospital/DC Financial Concerns : No Stressors Affecting Hospitalization/DC : No Courtney Kearns RN - 07/26/2020 16:24 EDT Sleep Apnea Risk Assmt Hx of Obstructive Sleep Apnea Diagnosis : No Snore Loudly : No Tired, Fatigued, or Sleepy During Day : No Observed Stopping Breathing During Sleep : No Have/Are Being Treated for Hypertension : Yes BMI Greater Than 35 kg/m2 : No Age over 50 Years Old : Yes Neck Circumference Greater Than 40 cm : No Gender Male : No STOP-BANG Sleep Apnea Risk Level Score : 2 Courtney Kearns RN - 9/24/2020 16:24 EDT Spiritual/Cultural Needs Significant Loss/Crisis in Past 3 Years : No Significant Distress/Coping/Need Support : No Any Spiritual/Cultural Needs or Requests : No Courtney Kearns RN - 07/26/2020 16:24 EDT Valuables and Belongings Valuables and Belongings : Clothing Clothing : Common streetwear Clothing Disposition : Bedside Courtney Kearns RN - 07/26/2020 16:24 EDT documented in this encounter Plan of Treatment Not on file documented as of this encounter Visit Diagnoses Not on filedocumented in this encounter Care Teams Direct Sales Representative Relationship Specialty Start Date End Date Marly Kumar, DUNG [address] [place] [address] PCP - General Nurse Practitioner 09/22/24 documented as of this encounter
--- OUTSIDE RECORDS SUMMARY | 2024-09-27 08:56 | XMS_ITS | Encounter Summary ---
Author Organization Healthcare Address [address] [place] [address] Care Team Providers Care Metal Caster Name Role Phone Pcp, No Primary Care Provider Unavailabl e Encounter Details Date Type Department Care Team (Late st Contact Info) Description 08/14/2023 Telephone TRAUMA SURGERY [address] [place] [address] Sarita Middleton RN Social History Tobacco Use Types Packs/Day Years [...] drink first t zander in the morning (EYE-LAN ADMINISTRATOR) to steady your nerves or to get [...] of Assessment Author Yes 08/08/2023 5:39 PM SEANT Kevin Isidro RN documented as of this encounter Mental Status * Because of a physical, mental, or emotional condition, do you have serious difficulty concentrating, remembering, or making decisions? (5 years old or older) Answer Entry Date Author No 08/08/2023 5:39 PM Kevin Schmidt RN documented in this encounter Miscellaneous Notes * Telephone Encounter - Sarita Middleton - 08/14/2023 9:59 AM EDT Returned patients daughter's phone call. Patients daughters email did not come through. Patients daughter was offered to set up a TH visit for patient so a provider could at least see the wound on patients head. Patients daughter was sent the link to set up patient [employer] account and offered an appointment at [phone] with our provider in clinic today to determine rather or not patient needs antibiotics. Patients daughter stated that patients wound was very warm to touch, swollen, red, and draining pus. Patients daughter verbalized understanding of TH visit and conversation. Nothing further at this time. documented in this encounter Plan of Treatment Not on file documented as of this encounter Visit Diagnoses Not on filedocumented in this encounter Additional Health Concerns Assessment Noted Time A Body Mass Index follow-up plan has been documented for the patient 08/14/2023 12:22 PM EDT documented as of this encounter Care Teams Metal Caster Relationship Specialty Start Date End Date Pcp, No [address] [place] [address] PCP - General Family Medicine 08/07/23 documented as of this encounter
--- NOTE | 2024-09-27 09:01 | XR_ITS ---
FINAL REPORT TECHNIQUE: Bone densitometry calculations of the lumbar spine and left hip were obtained. CLINICAL HISTORY: SCREENING COMPARISON: None FINDINGS: Using L1-4, the bone mineral density of the spine is 0.978 g/cm2, corresponding to T-score of -0.6 and a Z score of 1.6. This is within the range of within normal limits. Using the left hip, the bone mineral density of the femoral neck is 0.653 g/cm2, corresponding to a T-score of -2.4 and a Z-score of -0.8. This is within the range of osteopenia. Using the right hip, the bone mineral density of the femoral neck is 0.606 g/cm2, corresponding to a T-score of -2.8 and a Z-score of -1.2. This is within the range of osteoporosis. FRAX not reported because some T-score at or below-2.5. NOTE: T-score: Standard deviation compared with peak bone mass of young adult mean. *Following the recommendations of the International Society of Bone densitometry, classification of hip BMD is based on the lower of two T-scores; total hip or femoral neck. IMPRESSION: 1. Bone mineral density of the lumbar spine within the range of normal limits. 2. Bone mineral density of the left femoral neck within the range of osteopenia. 3. Bone mineral density of the right femoral neck within the range of osteoporosis. Reviewed, Interpreted and Dictated by Yesika Solano MD Transcribed by Jazzmine Colindres Authenticated and . [facility]
== END 2024-09-27 23:59 | disposition home or self-care (01) ==
LOC: RAD 08:53
PROVIDERS: PCP Internal Medicine Adolescent Medicine; Visit Provider Nurse Practitioner Family
DX: M81.0 Age-related osteoporosis without current pathological fracture (principal)
CPT/HCPCS: 77080

== ENCOUNTER 2025-02-10 09:06 | Outpatient (CLI) | payer MEDICARE, MEDICAID, SELFPAY ==
--- NOTE | 2025-02-10 10:00 | CT_ITS ---
FINAL REPORT TECHNIQUE: Noncontrast exam This study was performed with techniques to keep radiation doses as low as reasonably achievable, (ALARA). Individualized dose reduction techniques using automated exposure control or adjustment of mA and/or kV according to the patient's size were employed. CLINICAL HISTORY: seizures within 24 hours, HEADACHES COMPARISON: 01/03/2022 FINDINGS: CT HEAD: No abnormal density is seen. Ventricles are normal. There is no hemorrhage. No mass effect is seen. Bone windows show no evidence of fracture. IMPRESSION: No acute findings Reviewed, Interpreted and Dictated by Kimberley Franklin MD Transcribed by Tameka Cárdenas Authenticated and [facility]
== END 2025-02-10 23:59 | disposition home or self-care (01) ==
LOC: RAD 09:07
PROVIDERS: PCP Nurse Practitioner Family; Visit Provider Specialist
DX: R51.9 Headache, unspecified (principal); R56.9 Unspecified convulsions
CPT/HCPCS: 70450

== ENCOUNTER 2025-04-17 11:00 | Outpatient (RCR) | payer MEDICARE, MEDICAID, SELFPAY ==
--- NOTE | 2025-04-06 08:24 | HMH.OTOPEV ---
OT Inpatient Evaluation Rehab OT Outpatient Eval Start: 04/05/25 16:05 Freq: Status: Active Protocol: Document 04/05/25 16:06 LARISA (Rec: 04/05/25 16:48 LARISA [id number]) E-signed By Brook Anton, OT Outpatient Therapy Subjective History Subjective History Pt presents as a pleasant 75 year old female referred to OT for evaluation due to Bilateral wrist/UE pain and functional impairments related to bilateral carpel tunnel syndrome. PLOF reported by pt as independent ADL/IADL. She states she initially noticed symptoms approximately 6 months ago. Symptoms included RUE numbness progressing to tingling radiating from fingertips to elbow/shoulder. Symptoms have now started in LUE as well. Pt has difficulty opening jars and containers, also frequently drops items with both hands right worse than left). Pt has difficulty manipulating fasteners. 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 Daughter does laundry and cooks for pt. Pt was seen at [facility] and nerve conduction test was performed. Marly Kumar, PCP received results and referred pt to Dr. Garay in neurology at [facility] (f/u 04/24) . Pt attends [facility] [employer] 4 days per week. She states she exercises and engages in craft and gardening activities, as well as other various social activities. Medical History: seizure disorder, h/o ovarian cancer ( removed in 1960's ), CHF, COPD, HTN, hyperlipidemia, pacemaker and defibrillator (MRI compatible), bilateral eye surgeries for lens implant approximately one year ago. Other surgeries include Hysterectomy, gall bladder , 4 oral surgeries, inguinal hernia repair, lumpectomy right breast (benign), nerve rotation in left UE (scar medial elbow). Past smoker. Pt reside in a one level home with 3 steps to enter front and one step to rear entrance. New diagnosis of No cancer in past 12 months? Chief Complaint Pain,Stiff,Clicks,Swelling,Paresthesia,Weakness, Decreased Gas Desulfurizer Strength,Decreased Coordination Symptom Type Ache,Dull,Numbness,Tingling,Shooting Symptoms Relieved By OTC Meds,Prescription Meds Symptoms Aggravated Physical Activity,Lifting By Prior Functional None Limitations Current Functional Lifting,Housework,Dressing,Sleeping,Recreation Activity Limitations Symptom Description Constant but Variable Level of pain today 4 (0-10) Pain scale - at its 3 best (0-10) Pain scale - at its 10 worst (0-10) Wrist/Hand Eval Palpation Tenderness/Visual Exam Wrist pain bilateral tenderness wrist bilateral exam standard Wrist swelling right Wrist/Hand Palpation Tenderness Findings Wrist Range of Motion Right Wrist Limitations of Soft Tissue Tightness,Muscle Weakness,Pain Range of Motion Wrist Extension 65 Active Range of Motion (degrees) Wrist Flexion Active 75 Range of Motion ( degrees) Wrist Radial 28 Deviation Active Range of Motion ( degrees) Wrist Ulnar 30 Deviation Active Range of Motion ( degrees) Left Wrist Limitations of Soft Tissue Tightness,Muscle Weakness,Pain Range of Motion Wrist Extension 35 Active Range of Motion (degrees) Wrist Flexion Active 45 Range of Motion ( degrees) Wrist Radial 20 Deviation Active Range of Motion ( degrees) Wrist Ulnar 18 Deviation Active Range of Motion ( degrees) Forearm Supination WNL Active Range of Motion (degrees) Forearm Pronation WNL Active Range of Motion (degrees) Gas Desulfurizer/Pinch Strength Right Gas Desulfurizer Strength 18 Measurement (lbs) Palmar Pinch (3- Severe Impairment point) Ability Tip Pinch (2-point) Severe Impairment Ability Lateral Pinch Severe Impairment Ability Left Gas Desulfurizer Strength 20 Measurement (lbs) Palmar Pinch (3- Moderate Impairment point) Ability Tip Pinch (2-point) Moderate Impairment Ability Lateral Pinch Moderate Impairment Ability QuickDASH Activities Please rate your ability to do the following activities in the last week by selecting the number below the appropriate response. 1. Open a tight or Unable new jar. 2. Do heavy Severe difficulty senior officer (e. g., wash sanders, floors). 3. Carry a shopping Severe difficulty bag or briefcase. 4. Wash your back. Unable 5. Use a knife to Severe difficulty cut food. 6. Recreational Severe difficulty activities in which you take some force or impact through your arm, shoulder, or hand (e.g., golf, hammering, tennis, etc.). 7. During the past Extremely week, to what extent has your arm, shoulder or hand problem interfered with your normal social activities with family, friends , neighbors or groups? 8. During the past Very limited week, were you limited in your work or other regular daily activites as a result of your arm, shoulder or hand problem? 9. Arm, shoulder or Extreme hand pain. 10. Tingling (pins Extreme and needles) in your arm, shoulder or hand. 11. During the past Severe difficulty week, how much difficulty have you had sleeping because of the pain in your arm, shoulder or hand? Quick DASH 49 OT Outpatient Assessment Impairments Problems/Impairments Palpation Tenderness,Impaired Range of Motion,Impaired Strength,Impaired Endurance,Impaired Lifting,Impaired Dressing,Impaired Household Care,Impaired Recreational Activities,Subjective C/O Pain,Impaired Self Care/Self Management Prognosis Rehab Potential Good Clinical Impression Consistent with Yes Diagnosis Short Term Goals Number of Weeks 3 Increase Range of Yes: R wrist ext 70/flex 80; BRETT 35/RD 35; L wrist ext Motion 40/flex 50; HAYDEE 25/LRD 25 Increase Strength Yes: increase R necktie centralizing machine operator to 25 and L necktie centralizing machine operator to 30 Increase Endurance Yes: Pt will engage in 10 min sustained TE/TA prior to rest Improve Ability to Yes: Improve 9-hole peg test score to 25 sec B Dress Self Decrease Subjective Yes: Pain no greater than 5 at worst C/O Pain Patient to be Ind w/ Yes: ind with basic AROM/HEP HEP Improve Quick Dash Yes: no greater than 35 Score Mcc Goals Number of Weeks 6 Increase Range of Yes: R wrist ext 75/flex 85; BRETT 40/RD 40; L wrist ext Motion 45/flex 55; HAYDEE 30/LRD 30 Increase Strength Yes: increase R necktie centralizing machine operator to 30 and L necktie centralizing machine operator to 35 Increase Endurance Yes: Pt will engage in 20 min sustained TE/TA prior to rest Improve Ability to Yes: Imporve 9-hole peg test to 20 sec B Dress Self Patient to be Ind w/ Yes: pt ind with advanced HEP Advanced HEP Improve Quick Dash Yes: score no greater than 25 Score Outpatient Therapy Plan of Care Treatment Plan May Include Therapeutic Exercise Yes Including Home Exercise Program Manual Therapy Yes Techniques Therapeutic Yes Activities to Return to Previous Functional/Work Level ADL/Self Care Yes Education Thermal Modalities Yes Electrical Yes Stimulation Ultrasound/ Yes Phonophoresis Iontophoresis Yes Parrafin Yes Eval/Re-Eval Yes Frequency Times per week 2 Duration Number of Weeks 6 Addendums This patient is a No candidate for social or vocational rehab ? Patient/Guardian Yes verbally acknowledges understanding of treatment program and consents to further treatment? Patient/Guardian Yes verbally acknowledges understanding of diagnosis, prognosis and goals for treatment? Eval Complexity OT Charge 65575 - Moderate Complexity Shoulder/Elbow Eval Shoulder Objective Measurements Elbow Objective Measurements PHYSICIAN CERTIFICATION: I certify the specified therapy services for Jackqueline Ting Gregorio are required, authorized, and reviewed every 30 days.
== END 2025-04-17 23:59 | disposition home or self-care (01) ==
LOC: OT 11:00
PROVIDERS: Visit Provider Specialist
DX: G56.03 Carpal tunnel syndrome, bilateral upper limbs (principal)
CPT/HCPCS: 97110; 97140; 97166; 97530; 97763

== ENCOUNTER 2025-04-26 18:58 | Inpatient (IN) | payer MEDICAID, SELFPAY ==
--- OUTSIDE RECORDS SUMMARY | 2025-03-17 08:18 | XMS_ITS | Continuity of Care Document ---
Author Organization [facility] Phone Care Team Providers Care Authorization Manager Name Role Phone BRAYDEN SOTOMAYOR Unavailable BRAYDEN SOTOMAYOR Primary Attending BRAYDEN SOTOMAYOR Primary Care BRAYDEN SOTOMAYOR Admitting ALLERGIES AND ADVERSE REACTIONS ALLERGIES AND ADVERSE REACTIONS Code System Allergy Substance Adverse Reaction Date Reaction (Severity) Comment Status Reported By Updated [place] [id number] SNOMED CT Penicillins Adverse reaction to substance desir active [id number] on February 21, 2025 5:26:46 AM [facility] [id number] SNOMED CT Sulfa Antibiotics Adverse reaction to substance desir active [id number] on February 21, 2025 5:26:46 AM [facility] 41569 RXNorm Fosamax Adverse reaction to substance unknown active [id number] on February 21, 2025 5:26:46 AM [facility] FAMILY HISTORY RELATION: Father Status: Cause of : Motor vehicle accident victim Age at : Unknown SNOMED-CT Diagnosis Age At Onset Information not available RELATION: Father Status: Cause of : Motor vehicle injury Age at : Unknown SNOMED-CT Diagnosis Age At Onset Information not available RELATION: Mother Status: Cause of : Heart disease Age at : Unknown SNOMED-CT Diagnosis Age At Onset Information not available RELATION: Brother Status: LIVING SNOMED-CT Diagnosis Age At Onset [id number] Malignant neoplastic disease RELATION: Brother Status: LIVING SNOMED-CT Diagnosis Age At Onset Information not available RELATION: Sister Status: Cause of : Malignant neoplastic disease Age at : 61 SNOMED-CT Diagnosis Age At Onset Information not available RELATION: Son Status: LIVING SNOMED-CT Diagnosis Age At Onset Information not available RELATION: Son Status: LIVING SNOMED-CT Diagnosis Age At Onset [id number] Malignant tumor of testis RELATION: Daughter Status: LIVING SNOMED-CT Diagnosis Age At Onset Information not available RELATION: Daughter Status: LIVING SNOMED-CT Diagnosis Age At Onset Information not available RESULTS Patient: DAISY Walker Date of : [birth year] LABORATORY RESULTS Information is not available LABORATORY NARRATIVE RESULTS Information is not available RADIOLOGY RESULTS ORDER 100: SKYLER DIAG MAMMO W CAD RT (LOINC: 92943-1) ORDER DATE: March 14, 2025 11:54:00 AM [facility] PERFORMING LAB: [address] [id number] Final Result Date: March 14 12:31:[address] [place] [address] Name: RENNY VILLA Exam Date: 03/14/2025 : 1955 Age 69 years Gender: F Physician: BRAYDEN SOTOMAYOR Facility: [facility] Facility HSV: Outpatient Exam: SKYLER DIAG MAMMO W CAD RT Exam: 1.Right Diagnostic Mammogram Clinical indication: Patient presents for upper inner right breast calcifications with question focal asymmetry seen on screening exam Comparison: Exams to 2016 TECHNIQUE: Diagnostic Right 2D mammography and 3D (tomosynthesis) imaging were performed. BREAST DENSITY:There are scattered areas of fibroglandular density. FINDINGS: Additional views confirm predominantly coarse scattered calcifications seen throughout the upper central right breast. Previously questioned focal asymmetry resolves with spot compression. IMPRESSION: Probably benign upper central right breast predominantly coarse calcifications. Recommendation: Follow-up right mammogram recommended in 6 months The results of this report will be communicated to the patient by letter in layman's terms. ACR BI-RADS:3 - Probably Benign Findings Mammography does not detect approximately 10-15% of breast cancers. A normal mammogram does not exclude breast cancer in a patient with palpable mass or abnormal findings on physical examination. These patients may need biopsies and when clinically indicated a biopsy should not be postponed because of a normal mammogram. If the patient has breast surgery or biopsy, FDA/SA Regulatory Guidelines mandate that this facility receive pathologic results for follow-up correlation. Electronically signed by: Truong Berger MD 03/14/2025 08:37 AM EDT RP Dictated By: Truong Berger Transcribed By: Transcribed On: 03/14/2025 8:31 AM Electronically signed by: Truong Berger 03/14/2025 Thank you [facility]. Legally authenticated by JUAN DIEGO BROWN MD 2025-03-14 08:31:00 PATHOLOGY NARRATIVE RESULTS Information is not available MICROBIOLOGY RESULTS No Micro Labs/Results Exist for Patient BLOOD ADMIN RESULTS Information is not available MEDICATIONS HOME MEDICATIONS Status RXNORM NDC Medication Dose Route Frequency Dates Comments Reported By Updated By Drug Treatment Unknown DISCHARGE MEDICATIONS Status RXNORM NDC Medication Dose Route Frequency Dates Comments Physician Updated By No Discharge Medication Info rmation Available INPATIENT MEDICATIONS Status RXNORM NDC Medication Dose Route Frequency Rat e Quantity Dates Comments Physician Updated By No Inpatient Medication Info rmation Available SOCIAL HISTORY SOCIAL HISTORY SNOMED-CT Social History Element Description Effective Dates Offered Cessation Comment UpdatedBy [id number] Historical Tobacco smoking status Former Smoker [id number] on February 20, 2025 11:54:11 PM [facility] SOCIAL HISTORY - Gender Sex: Female SOCIAL HISTORY - Status : status i nformation is not available Intention in Next Year: intention information is not available SOCIAL HISTORY - Sexual Behavior Sexual Orientation Gender Identity SNOMED-CT Description SNO MED -CT Description Activity Level No of Partners Partner Type UpdatedBy Information is not available HEALTH CONCERNS Problems Concern Status Health Concern problem infor mation not available. Smoking Status Status Years Used Consumed packs p er day Health Concern smoking histo ry information not available. Family History Concern Status Health Concern family histor y information not available. ENCOUNTERS ENCOUNTER INFORMATION Reason for Visit R92.8 Admission March 14, 2025 11:39:[address] [address] Discharge March 14, 2025 5:39:00 PM [facility] DISC HARGED TO HOME OR SELF CARE ENCOUNTER DIAGNOSES Notes information is not gabino ilable. Code System Diagnosis Onset Date Diagnosis information is not available. ABSTRACT DIAGNOSES Code System Diagnosis Updated By R92.8 ICD10 OTHER ABNORMAL A ND INCONCLUSIVE FINDINGS ON DIAGNOSTIC IMAGING OF BREAST [id number] on February 24, 2025 4:17:55 PM [facility] R92.8 ICD10 OTHER ABNORMAL A ND INCONCLUSIVE FINDINGS ON DIAGNOSTIC IMAGING OF BREAST [id number] on March 17, 2025 12:17:38 PM UTC CARE TEAM Care Authorization Manager Role BRAYDEN SOTOMAYOR Referring BRAYDEN SOTOMAYOR Primary Attending BRAYDEN SOTOMAYOR Primary Care BRAYDEN SOTOMAYOR Admitting CARE TEAM CARE contact worker Role on Team Status Start Date End Date Update d By BRAN CRONIN APRN PCP normal February 24, 2025 4:17:55 PM UTC March 14, 2025 5:39:00 PM UTC [id number] on February 24, 2025 4:17:55 PM UTC BRAN CRONIN APRN Referring normal February 24, 2025 4:17:55 PM UTC March 14, 2025 5:39:00 PM UTC [id number] on February 24, 2025 4:17:55 PM UTC BRAN CRONIN APRN Attending normal February 24, 2025 4:17:55 PM UTC March 14, 2025 5:39:00 PM UTC [id number] on February 24, 2025 4:17:55 PM UTC BRAN CRONIN APRN Admitting normal February 24, 2025 4:17:55 PM UTC March 14, 2025 5:39:00 PM UTC [id number] on February 24, 2025 4:17:55 PM UTC
--- OUTSIDE RECORDS SUMMARY | 2025-03-20 06:46 | XMS_ITS | Continuity of Care Document ---
Author Organization [facility] Phone Care Team Providers Care Pathology Transcriptionist Name Role Phone THOMAS WELSH Admitting [phone] BRAYDEN SOTOMAYOR Primary Care THOMAS WELSH Primary Attending THOMAS WELSH Unavailable [phone] ALLERGIES AND ADVERSE REACTIONS ALLERGIES AND ADVERSE REACTIONS Code System Allergy Substance Adverse Reaction Date Reaction (Severity) Comment Status Reported By Updated [place] [id number] SNOMED CT Penicillins Adverse reaction to substance desir active [id number] on February 21, 2025 5:26:46 AM [facility] [id number] SNOMED CT Sulfa Antibiotics Adverse reaction to substance desir active [id number] on February 21, 2025 5:26:46 AM [facility] 33474 RXNorm Fosamax Adverse reaction to substance unknown active [id number] on February 21, 2025 5:26:46 AM [facility] [...] Status: LIVING SNOMED-CT Diagnosis Age At Onset [id number] Malignant neoplastic disease RELATION: Brother Status: LIVING SNOMED-CT Diagnosis Age At Onset Information not available RELATION: Sister Status: Cause of : Malignant neoplastic disease Age at : 61 SNOMED-CT Diagnosis Age At Onset Information not available RELATION: Son Status: LIVING SNOMED-CT Diagnosis Age At Onset Information not available RELATION: Son Status: LIVING SNOMED-CT Diagnosis Age At Onset [id number] Malignant tumor of testis RELATION: Daughter Status: LIVING SNOMED-CT Diagnosis Age At Onset Information not available RELATION: Daughter Status: LIVING SNOMED-CT Diagnosis Age At Onset Information not available RESULTS Patient: DAISY Walker Date of : August [birth year] LABORATORY RESULTS ORDER 200: BASIC METABOLIC P LEONARD (LOINC: 82336-2) ORDER DATE: March 17, 2025 6:10:00 PM UTC Specimen Source: Serum/Plasm a Specimen Type: Acellular blo od (serum or plasma) specimen PERFORMING LAB: [address] [id number] Result Comment: Final Result Date: March 17, 2025 6:40:00 PM UTC (TECH: LT) LOINC TEST FLAG RESULT REFERENCE RANGE UPDA SONI BY 2951-2 Sodium [Moles/volume ] in Serum or Plasma N 142 mmol/L 136 mmol/L - 145 mmol/L March 17, 2025 6:40:00 PM UTC (TECH: LT) 2823-3 Potassium [Moles/volume] in Serum or Plasma N 3.9 mmol/L 3.5 mmol/L - 5.1 mmol/L March 17, 2025 6:40:00 PM UTC (TECH: LT) 2075-0 Chloride [Moles/volu me] in Serum or Plasma N 106 mmol/L 98 mmol/L - 107 mmol/L March 17, 2025 6:40:00 PM UTC (TECH: LT) 8-9 Carbon dioxide, tota l [Moles/volume] in Serum or Plasma N 27 mmol/L 21 mmol/L - 32 mmol/L March 17, 2025 6:40:00 PM UTC (TECH: LT) 20770-2 Anion gap 3 in Serum or Plasma N 9.0 March 17, 2025 6:40:00 PM UTC (TECH: LT) 2345-7 Glucose [Mass/volume ] in Serum or Plasma N 106 mg/dL 70 mg/dL - 110 mg/dL March 17, 2025 6:40:00 PM UTC (TECH: LT) 3094-0 Urea nitrogen [Mass/volume] in Serum or Plasma H 20 mg/dL 7 mg/dL - 18 mg/dL March 17, 2025 6:40:00 PM UTC (TECH: LT) 2160-0 Creatinine [Mass/volume] in Serum or Plasma N 0.8 mg/dL 0.6 mg/dL - 1.0 mg/dL March 17, 2025 6:40:00 PM [facility] (TECH: LT) 3097-3 Urea nitrogen/Creatinine [Mass Ratio] in Serum or Plasma H 25.0 9 - 21 March 17, 2025 6:40:00 PM [facility] (TECH: LT) 51215-9 Glomerular filtratio n rate/1.73 sq M.predicted by Creatinine-based formula (MDRD) N 79 mL/min >60 March 17, 2025 6:40:00 PM [facility] (TECH: LT) 84164-4 Osmolality of Serum or Plasma by calculated by sum of electrolytes N 298 mosm/kg 275 mosm/kg - 301 mosm/kg March 17, 2025 6:40:00 PM [facility] (TECH: LT) 09580-4 Calcium [Mass/volume ] in Serum or Plasma N 9.9 mg/dL 8.5 mg/dL - 10.1 mg/dL March 17, 2025 6:40:00 PM [facility] (TECH: LT) LABORATORY NARRATIVE RESULTS Information is not available RADIOLOGY RESULTS Information is not available PATHOLOGY NARRATIVE RESULTS Information is not available [...] Description Effective Dates Offered Cessation Comment UpdatedBy [id number] Historical Tobacco smoking status Former Smoker [id number] on February 20, 2025 11:54:11 PM [facility] [...] available. ENCOUNTERS ENCOUNTER INFORMATION Reason for Visit R60.0 Admission March 17, 2025 5:59:00 PM [facility] [address] [facility] [address] Discharge March 17, 2025 5:59:00 PM [facility] DISC HARGED TO HOME OR SELF CARE ENCOUNTER DIAGNOSES Notes information is not gabino ilable. Code System Diagnosis Onset Date Diagnosis information is not available. ABSTRACT DIAGNOSES Code System Diagnosis Updated By R60.0 ICD10 LOCALIZED EDEMA [id number] on M ay 2024 10:46:13 AM [place] R60.0 ICD10 LOCALIZED EDEMA [id number] on M ay 2024 10:46:14 AM [facility] CARE TEAM Care Pathology Transcriptionist Role THOMAS WELSH Admitting BRAYDEN SOTOMAYOR Primary Care THOMAS WELSH Primary Attending THOMAS WELSH Referring CARE TEAM CARE wired music operator Role on Team Status Start Date End Date Update d By BRAN CRONIN APRN PCP normal March 17, 2025 4:00:00 AM [facility] March 17, 2025 5:59:00 PM [facility] [id number] on March 17, 2025 6:00:48 PM [facility] ANITHA [employer] SPORTS DEVELOPMENT OFFICER Referring normal March 17, 2025 4:00:00 AM [facility] March 17, 2025 5:59:00 PM [facility] [id number] on March 17, 2025 6:00:48 PM [facility] ANITHA [employer] SPORTS DEVELOPMENT OFFICER Attending normal March 17, 2025 4:00:00 AM [facility] March 17, 2025 5:59:00 PM [facility] [id number] on March 17, 2025 6:00:48 PM [facility] ANITHA Kell[employer] SPORTS DEVELOPMENT OFFICER Admitting normal March 17, 2025 4:00:00 AM [facility] March 17, 2025 5:59:00 PM [facility] [id number] on March 17, 2025 6:00:48 PM [facility]
[2025-04-26] VITALS (10 sets, daily range): BP systolic 92–172; BP diastolic 53–88; PULSE 62–73; RESP 12–20; TEMP 36.7–36.8; O2SAT 94–98; BMI 34.5; BMI 34.2
--- NOTE | 2025-04-26 19:00 | PC.NURSE ---
Pt awake alert and oriented states she does have some confusion cloudiness . Resp full and easy Speech clear and appropriate Skin pink warm and dry Report given to Shahnaz DUMONT
--- NOTE | 2025-04-26 19:02 | ED_ITS ---
<Statement entered by Marly Degroot DO - 04/26/25 23:30> I was consulted by the LIBBY, and we discussed the complexity of the problems being addressed. I approved the treatment and management plan for this patient's care in the emergency department, thus performing a substantive portion of the medical decision making. Marly Degroot DO Discharge Plan Disposition Patient Disposition: Admitted Condition: Fair Prescriptions Prescriptions: No Action quetiapine 25 mg tablet 25 mg PO Patient Comments: take ONE-HALF TABLET BY MOUTH every night FOR SLEEP nystatin 100,000 unit/gram cream topical loratadine 10 mg tablet 10 mg PO Patient Comments: TAKE ONE TABLET BY MOUTH DAILY budesonide-formoterol 160-4.5 mcg/actuation HFA aerosol inhaler 2 puff inhalation BID fenofibrate nanocrystallized 145 mg tablet 145 mg PO ONCE Patient Comments: TAKE ONE TABLET BY MOUTH AT BEDTIME furosemide 20 mg tablet 20 mg PO DAILY Patient Comments: TAKE TWO TABLETS BY MOUTH EVERY MORNING & ONE TABLET EVERY AFTERNOON DAILY levothyroxine 88 mcg capsule 88 mcg PO DAILY Rx Instructions: Take 1 tablet by mouth daily on empty stomach before breakfast ketorolac 0.4 % drops 1 drp Eye-Both QID Patient Comments: INSTILL ONE drop into the affected eye four times per day midodrine 5 mg tablet 2.5 mg PO BID Patient Comments: TAKE ONE TABLET BY MOUTH TWICE DAILY mirtazapine 30 mg tablet 30 mg PO HS Patient Comments: TAKE ONE TABLET BY MOUTH AT BEDTIME ofloxacin 0.3 % drops 1 drp Eye-Left QID Patient Comments: INSTILL ONE drop into operative (L) eye four times a day as directed prednisolone acetate 1 % drops,suspension 1 drp Eye-Left QID Patient Comments: INSTILL ONE drop into the affected eye (L) four times per day for 1 week then twice daily for 2 weeks tizanidine 4 mg tablet 4 mg PO Rx Instructions: Take 1/2 to 1 tablet every 6 hours as needed for pain ropinirole 0.5 mg tablet 0.5 mg PO HS Patient Comments: TAKE ONE TABLET BY MOUTH EVERY DAY NEEDED for restless legs acetaminophen 500 MG tablet 1,000 mg PO BIDP PRN (Reason: pain) omeprazole 40 capsule,delayed release(DR/EC) 40 mg PO DAILY atorvastatin 40 MG tablet 40 mg PO DAILY potassium chloride 20 MEQ tablet 20 meq PO BID aspirin 81 MG tablet,chewable 81 mg PO DAILY nitroglycerin 0.4 MG tablet, sublingual 0.4 mg sublingual Q5MINP PRN (Reason: Chest Pain) ondansetron 8 MG tablet,disintegrating 8 mg PO Q8HP PRN (Reason: Nausea) divalproex 500 mg tablet extended release 24 hr 500 mg PO BID magnesium oxide 400 mg (241.3 mg magnesium) tablet 400 mg PO ONCE oxcarbazepine 600 mg tablet 300 mg PO BID Referrals Follow up/Referrals: Marly Kumar APRN [Primary Care Provider, Medical] - See instructions Clinical Impressions Clinical Impression: Encephalopathy, Hyperammonemia, Urinary tract infectious disease, RON (acute kidney injury) Instructions Patient Instructions: DI for Diarrhea and Traveler's Diarrhea -- Adult, DI for Diarrhea and Traveler's Diarrhea -- Child, DI for Nausea -- Adult, DI for Nausea -- Child Print Language Print Language: Guatemalan Discharge ED Provider: Marly Degroot General Adult HPI <YUVAL East - Last Filed: 04/26/25 22:21> General Chief complaint: Nausea/Vomiting/Diarrhea Stated complaint: vomiting,swelling in legs Time Seen by Provider: 04/26/25 19:02 History of Present Illness HPI narrative: Patient presents in the care of her daughter for evaluation of weakness and acute confusion. Patient has a longstanding history of atrial fibrillation coronary artery disease pacemaker defibrillator seizure disorder COPD not on home O2 hyperlipidemia hypothyroidism GERD. Patient had a seizure and was taken to [facility] after which she was admitted. According to the daughter she apparently had an elevated ammonia level and was very confused. She was discharged today however daughter feels that she is not at her baseline. Patient states at baseline patient is conversant independent of all of her ADLs. Patient herself could not give a history at the moment although she is awake and interactive. There is no report of chest pain fever chills hemoptysis hematochezia melena nausea vomiting diarrhea. Patient does not have a known history of liver disease alcohol or drug abuse. Related Data Home Medications ?Medication ?Instructions ?Recorded ?Confirmed atorvastatin 40 mg tablet 40 mg PO DAILY Cholesterol 0 04/23/19 01/25/25 omeprazole 40 mg capsule,delayed 40 mg PO DAILY GERD 0 04/23/19 01/25/25 release aspirin 81 mg chewable tablet 81 mg PO DAILY CIRCULATI ON 04/24/19 01/25/25 nitroglycerin 0.4 mg sublingual 0.4 mg sublingual Q5MI BOTTOM CEMENTER PRN Chest 04/24/19 01/25/25 tablet Pain ondansetron 8 mg disintegrating 8 mg PO Q8HP PRN Nause a 04/24/19 01/25/25 tablet potassium chloride 20 mEq 20 meq PO BID POTASSIUM SUPP LEMENT 04/24/19 01/25/25 tablet,extended release(part/cryst) acetaminophen 500 mg tablet 1,000 mg PO BIDP PRN pain 08/08/19 01/25/25 budesonide-formoterol HFA 160 2 puff inhalation BID 01/25/25 mcg-4.5 mcg/actuation aerosol inhaler divalproex 500 mg tablet,extended 500 mg PO BID SEIZUR ES 01/25/25 01/25/25 release 24 hr fenofibrate nanocrystallized 145 145 mg PO ONCE 01/25/25 mg tablet furosemide 20 mg tablet 20 mg PO DAILY 01/25/2501/01 ketorolac 0.4 % eye drops 1 drp Eye-Both QID 01/25/25 01/25/25 levothyroxine 88 mcg capsule 88 mcg PO DAILY 01/25/25 01/25/25 loratadine 10 mg tablet 10 mg PO 01/25/25 01/25/25 magnesium oxide 400 mg (241.3 mg 400 mg PO ONCE Supple ment 01/25/25 01/25/25 magnesium) tablet midodrine 5 mg tablet 2.5 mg PO BID 01/25/2501/25 mirtazapine 30 mg tablet 30 mg PO HS 01/25/25 5 nystatin 100,000 unit/gram topical topical 01/25/25 cream ofloxacin 0.3 % eye drops 1 drp Eye-Left QID 01/25/25 01/25/25 oxcarbazepine 600 mg tablet 300 mg PO BID SEIZURES 01/25/25 prednisolone acetate 1 % eye 1 drp Eye-Left QID 01/25/25 drops,suspension quetiapine 25 mg tablet 25 mg PO 01/25/25 01/25/25 ropinirole 0.5 mg tablet 0.5 mg PO HS 01/25/25 tizanidine 4 mg tablet 4 mg PO 01/25/25 01/25/25 Allergies Allergy/AdvReac Type Severity Reaction Status Date / Time alendronate sodium (From Allergy Unknown I-HIVES Verified 01/25/25 08:52 FOSAMAX) Penicillins (PENICILLINS) Allergy Unknown I-HIVES Verified 01/25/25 08:52 Sulfa (Sulfonamide Allergy Unknown I-HIVES Verified 01/25/25 08:52 Antibiotics) (SULFA (SULFONAMIDE ANTIBIOTICS)) gabapentin Allergy Verified 01/25/25 08:52 [facility] <YUVAL East - Last Filed: 04/26/25 22:21> [facility] Disclaimer: The information contained in this section may have been updated after the patient was seen, as this information can be updated by other users. Medical History (Updated 04/26/25 @ 20:54 by YUVAL East) Seizure History of pacemaker Arthritis Seizures Renal insufficiency Osteoporosis Heart attack Migraine Hyperlipemia Depression Dementia CHF (congestive heart failure) Afib Surgical History (Updated 01/25/25 @ 08:58 by BEE Mayorga) Hx of hysterectomy Hx of lumpectomy Hx of cholecystectomy Family History (Updated 01/25/25 @ 08:59 by BEE Mayorga) Other Diabetes Hyperlipidemia Hypertension Social History Smoking Status: Never smoker second hand exposure: No alcohol intake: never substance use type: other current occupational status: disabled Travel in the last 8 weeks?: None household members: other housing: longterm current occupational exposures/hazards: No caffeine: Yes Have you lived/traveled outside [place] in past 30 days?: No Contact w/someone who lives/traveled outside US past 30 days?: No Exposure to someone with infectious disease in past 14 days?: No Do you have a fever (greater than 100.4 F or 38 C)?: No Have you tested positive for COVID-19?: No Exposed to someone with COVID-19 in past 14 days?: No Do you have a sore throat?: No Do you have a cough?: No Do you have any weakness?: No Do you have any diarrhea?: No Are you experiencing any unusual bleeding?: No Do you have any muscle aches/pain?: No Do you have any abdominal pain?: No Are you experiencing loss of taste or smell?: No Other Medical History Have you received the Flu Vaccine for this season: Yes Have you received the Pneumonia Vaccine: Yes <YUVAL East - Last Filed: 04/26/25 22:21> ROS Obtained: Yes Systems reviewed as appropriate & no additional complaints except as documented Physical Exam <YUVAL East - Last Filed: 04/26/25 22:21> General General appearance: alert and in no apparent distress Respiratory Respiratory exam: Present normal lung sounds bilaterally Cardiovascular Cardiovascular exam: Present regular rate Neurological Exam Neurological exam: Present alert and oriented X3 Medical Decision Making <YUVAL East - Last Filed: 04/26/25 22:21> Medical Records Medical records reviewed: Yes I reviewed the patient's medical records. Screening: Per USPSTF and CDC recommendations, given the prevalence of disease in our region, it is our hospital?s policy to screen for HIV and viral Hepatitis for all patients aged 18 and over and those with ongoing risk factors. Marc Inquiry Pt receiving controlled substance: No Vital Signs: 04/26/25 19:10 04/26/25 19:30 04/26/25 20:00 Temperature 98.2 F Temperature Source Oral Pulse Rate 67 63 Pulse Rate [Right Brachial] 73 Respiratory Rate 20 16 14 Blood Pressure 161/78 H 139/78 Blood Pressure [Right Arm] 167/77 H Blood Pressure Mean Blood Pressure Mean [Right Arm] 107 Blood Pressure Source Blood Pressure Source [Right Arm] Automatic Cuff Blood Pressure Position [Right Arm] Sitting 02 Sat by Pulse Oximetry 98 97 97 Oxygen Delivery Method Room Air 04/26/25 20:02 04/26/25 20:30 04/26/25 21:00 Temperature Temperature Source Pulse Rate 62 68 67 Pulse Rate [Right Brachial] Respiratory Rate 18 18 14 Blood Pressure 139/78 136/88 133/68 Blood Pressure [Right Arm] Blood Pressure Mean Blood Pressure Mean [Right Arm] Blood Pressure Source Automatic Cuff Blood Pressure Source [Right Arm] Blood Pressure Position [Right Arm] 02 Sat by Pulse Oximetry 97 97 97 Oxygen Delivery Method Room Air 04/26/25 21:31 04/26/25 22:00 Temperature Temperature Source Pulse Rate 66 66 Pulse Rate [Right Brachial] Respiratory Rate 15 12 Blood Pressure 92/53 L 127/58 L Blood Pressure [Right Arm] Blood Pressure Mean 77 Blood Pressure Mean [Right Arm] Blood Pressure Source Blood Pressure Source [Right Arm] Blood Pressure Position [Right Arm] 02 Sat by Pulse Oximetry 96 97 Oxygen Delivery Method Lab Data Lab results reviewed: Yes I reviewed the patient's lab results. Lab Results 04/26/25 19:23: WBC 4.8, RBC 4.04 L, Hgb 12.1 L, Hct 38.2, MCV 94.6, MCH 30.0, M CHC 31.7 L, RDW 14.9, Plt Count 215, MPV 12.5 H, Neut % (Auto) 40.8, Lymph % (Auto) 46.0, [place] % (Auto) 8.7, Eos % (Auto) 3.3, Baso % (Auto) 0.8, Neut # (Auto) 2.0, Lymph # (Auto) 2.2, [place] # (Auto) 0.4, Eos # (Auto) 0.2, Baso # (Auto) 0.0, ESR 32 H, PT 12.1, INR 1.10, APTT 23.4, Sodium 139, Potassium 3.9, Chloride 98, Carbon Dioxide 33 H, Anion Gap 11.9, BUN 35 H, Creatinine 1.20 H, Estimated Creat Clear 54, Estimated GFR 44 L, Est GFR ( Amer) 54 L, G lucose 106 H, Calcium 10.0, Magnesium 1.7, Total Bilirubin 0.6, AST 37 H, ALT 21, Alkaline Phosphatase 54, Total Creatine Kinase 41, Troponin I < 0.01, C- Reactive Protein 3.8, NT-Pro-B Natriuret Pep 192 H, Total Protein 7.1, Albumin 4.2, Globulin 2.9, Albumin/Globulin Ratio 1.4, Lipase 90, Procalcitonin 0.054, TSH 3.10, Free T4 Index 2.7 L, Thyroxine (T4) 8.5, T3 Uptake 32, HCV Ab WEI w/Rflx PCR Qn Negative, HIV Ag/Ab Combo Qual Negative 04/26/25 19:27: VBG pH 7.44 H, VBG pCO2 42.2, VBG pO2 47.0 H, VBG HCO3 28.0, VBG Total CO2 29.2 H, VBG O2 Saturation 82.1 H, VBG Base Excess 3.8 H, VBG Lactic Acid 1.4 04/26/25 19:32: Chlamy pneumoniae PCR Not detected, Adenovirus (PCR) Not detected, B. pertussis DNA (PCR) Not detected, Coronavirus OC43 (PCR) Not detected, Coronavirus HKU1 (PCR) Not detected, Coronavirus 229E (PCR) Not detected, SARS-CoV-2 (PCR) Not detected, Coronavirus NL63 (PCR) Not detected, Human Metapneumovir PCR Not detected, Influenza A (H1) PCR Not detected, Influ A (H1N1/09) PCR Not detected, Influenza A (H3) PCR Not detected, Influenza Type A (PCR) Not detected, Influenza Type B (PCR) Not detected, M. pneumoniae (PCR) Not detected, Parainfluenza 1 (PCR) Not detected, Parainfluenza 2 (PCR) Not detected, Parainfluenza 3 (PCR) Not detected, Parainfluenza 4 (PCR) Not detected, RSV (PCR) Not detected, Entero/Rhino (PCR) Not detected 04/26/25 19:43: Ammonia 36 H 04/26/25 19:52: Urine Color Yellow, Urine Appearance Clear, Urine pH 8.0, Ur Specific Malone 1.015, Urine Protein Negative, Urine Glucose (UA) Negative, Urine Ketones Negative, Urine Blood Negative, Urine Nitrate Negative, Urine Bilirubin Negative, Urine Urobilinogen 0.2, Ur Leukocyte Esterase Negative, Urine RBC 5-10, Urine WBC 5-10, Ur Squamous Epith Cells 3-5, Urine Bacteria 2+, Urine Mucus 1+ 04/26/25 19:23 04/26/25 19:23 Orders (Tests/Meds): ED MEDICATIONS Discontinued Medications Generic Name Dose Route Start Last Admin Trade Name Freq PRN Reason Stop Dose Admin Sodium Chloride 1,000 mls @ 999 mls/hr 04/26/25 19:23 04/26/25 19:49 Sod Chlor 0.9% 1000ml Bag IV 04/26/25 20:23 999 mls/hr .Q1H1M ONE Administration Ceftriaxone Sodium 1 gm/ 50 mls @ 100 mls/hr 04/26/25 21:00 04/26/25 21:35 Sodium Chloride IV 04/26/25 21:29 100 mls/hr ONCE ONE Administration Iopamidol 70 ml 04/26/25 20:19 04/26/25 20:20 Iopamidol-370 (76%);100ml Bottle IV 04/26/25 20:20 70 ml ONCE ONE Administration Sodium Chloride 50 ml 04/26/25 20:19 04/26/25 20:20 0.9 % Sodium Chloride 50 Ml Vial IV 04/26/25 20:20 50 ml ONCE ONE Administration Sodium Chloride 10 ml 04/26/25 20:19 04/26/25 20:20 Sodium Chloride 0.9% 10ml Syr (Rad Only) IV 04/26/25 20:20 10 ml ONCE ONE Administration ORDERS Category Date Time Status CT abdomen pelvis w con Stat Cat Scan 04/26/25 19:[address] angio chest PE protocol Stat Cat Scan 04/26/25 19:[address] head/brain wo con Stat Cat Scan 04/26/25 19:25 Completed Ammonia Stat Lab 04/26/25 19:43 Completed BNP [NT Pro Brain Natriuretic Pep.] Stat Lab 04/26/25 19:23 Completed CK [Creatine Kinase] Stat Lab 04/26/25 19:23 Completed CMP [Comprehensive Metabolic Panel] Stat Lab 04/26/25 19:23 Completed CRP [C-Reactive Protein] Stat Lab 04/26/25 19:23 Completed Complete Blood Count Auto Diff Stat Lab 04/26/25 19:23 Completed ESR [Erythrocyte Sedimentation Rate] Stat Lab 04/26/25 19:23 Completed Full Resp Panel w/COVID ([facility]) Routine Lab 04/26/25 19:32 Completed HIV Combo Routine Lab 04/26/25 19:23 Completed Hepatitis C Ab Qual. W/ RFX Routine Lab 04/26/25 19:23 Completed INR [Prothrombin Time INR] Stat Lab 04/26/25 19:23 Completed Lipase Stat Lab 04/26/25 19:23 Completed Magnesium Stat Lab 04/26/25 19:23 Completed PTT [Activated Partial Thrombo Time] Stat Lab 04/26/25 19:23 Completed Procalcitonin Stat Lab 04/26/25 19:23 Completed Thyroid Panel Stat Lab 04/26/25 19:23 Completed Trop I [Troponin I] Stat Lab 04/26/25 19:23 Completed Troponin I Q3H Lab 04/26/25 22:30 Ordered Troponin I Q3H Lab 04/27/25 01:30 Ordered UA [Urinalysis and Microscopic] Stat Lab 04/26/25 19:52 Completed Urine Culture Stat Micro 04/26/25 19:52 Received VBG [Venous Blood Gas] Stat RT 04/26/25 19:27 Completed Medical Decision Narrative: In summary patient is a 69-year-old female who presents to the emergency department for evaluation of weakness and lethargy altered mental status. Patient is hemodynamically stable with a blood pressure 167/77 pulse 73 respiratory rate is 20 satting at 98% on room air upon arrival, afebrile at 98.2. Physical exam is remarkable for an unwell appearing 69-year-old female who does not appear to be acute distress. She is awake and interactive but appears too weak to talk. She occasionally answers questions weak to talk and or confused. Breath sounds clear and equal bilaterally to the bases with adventitious sounds. Patient does have dependent edema 3+. Abdomen soft nontender no rebound or guarding no rigidity. Differential diagnosis includes CHF versus ACS versus cirrhosis versus congestive hepatopathy versus electrolyte abnormality versus metabolic encephalopathy etc. Initial workup will be conducted with hematologic labs CT scan of the head chest and abdomen. Initial interventions include crystalloid bolus for now. Initial workup reviewed by me and her logic labs significant for white count of 4.8 hemoglobin hematocrit 12.1 and 38.2 respectively absolute neutrophil count is 2.0 sed rate is 32 INR is 1.1 VBG shows a pH of 7.4 pCO2 is 42.2 VBG lactic acid is 1.4 creatinine is 1.2 GFR is 44 bilirubin is 0.6 AST is 37 ALT is 21 alk phos 54 ammonia level is 36 NT proBNP is less than 0.01 CK is 41 NT proBNP is 192 CRP is 3.8 lipase is 90 procalcitonin 0.054 TSH 3.1 urinalysis shows 5-10 red cells 5-10 white cells 3-5 epithelial cells and 2+ bacteria. Full respiratory panel is negative. I have started the patient on Rocephin. Given her hyperammonemia RON and urinary tract infection I had an interactive discussion with hospital medicine regarding patient presentation CHUNG and management and she will be admitted for further evaluation and care. <Marly Degroot DO - Last Filed: 04/26/25 20:44> Vital Signs: 04/26/25 19:10 04/26/25 19:30 04/26/25 20:00 Temperature 98.2 F Temperature Source Oral Pulse Rate 67 63 Pulse Rate [Right Brachial] 73 Respiratory Rate 20 16 14 Blood Pressure 161/78 H 139/78 Blood Pressure [Right Arm] 167/77 H Blood Pressure Mean Blood Pressure Mean [Right Arm] 107 Blood Pressure Source Blood Pressure Source [Right Arm] Automatic Cuff Blood Pressure Position [Right Arm] Sitting 02 Sat by Pulse Oximetry 98 97 97 Oxygen Delivery Method Room Air 04/26/25 20:02 04/26/25 20:30 04/26/25 21:00 Temperature Temperature Source Pulse Rate 62 68 67 Pulse Rate [Right Brachial] Respiratory Rate 18 18 14 Blood Pressure 139/78 136/88 133/68 Blood Pressure [Right Arm] Blood Pressure Mean Blood Pressure Mean [Right Arm] Blood Pressure Source Automatic Cuff Blood Pressure Source [Right Arm] Blood Pressure Position [Right Arm] 02 Sat by Pulse Oximetry 97 97 97 Oxygen Delivery Method Room Air 04/26/25 21:31 04/26/25 22:00 Temperature Temperature Source Pulse Rate 66 66 Pulse Rate [Right Brachial] Respiratory Rate 15 12 Blood Pressure 92/53 L 127/58 L Blood Pressure [Right Arm] Blood Pressure Mean 77 Blood Pressure Mean [Right Arm] Blood Pressure Source Blood Pressure Source [Right Arm] Blood Pressure Position [Right Arm] 02 Sat by Pulse Oximetry 96 97 Oxygen Delivery Method Lab Data Lab Results 04/26/25 19:23: WBC 4.8, RBC 4.04 L, Hgb 12.1 L, Hct 38.2, MCV 94.6, MCH 30.0, M CHC 31.7 L, RDW 14.9, Plt Count 215, MPV 12.5 H, Neut % (Auto) 40.8, Lymph % (Auto) 46.0, [place] % (Auto) 8.7, Eos % (Auto) 3.3, Baso % (Auto) 0.8, Neut # (Auto) 2.0, Lymph # (Auto) 2.2, [place] # (Auto) 0.4, Eos # (Auto) 0.2, Baso # (Auto) 0.0, ESR 32 H, PT 12.1, INR 1.10, APTT 23.4, Sodium 139, Potassium 3.9, Chloride 98, Carbon Dioxide 33 H, Anion Gap 11.9, BUN 35 H, Creatinine 1.20 H, Estimated Creat Clear 54, Estimated GFR 44 L, Est GFR ( Amer) 54 L, G lucose 106 H, Calcium 10.0, Magnesium 1.7, Total Bilirubin 0.6, AST 37 H, ALT 21, Alkaline Phosphatase 54, Total Creatine Kinase 41, Troponin I < 0.01, C- Reactive Protein 3.8, NT-Pro-B Natriuret Pep 192 H, Total Protein 7.1, Albumin 4.2, Globulin 2.9, Albumin/Globulin Ratio 1.4, Lipase 90, Procalcitonin 0.054, TSH 3.10, Free T4 Index 2.7 L, Thyroxine (T4) 8.5, T3 Uptake 32, HCV Ab WEI w/Rflx PCR Qn Negative, HIV Ag/Ab Combo Qual Negative 04/26/25 19:27: VBG pH 7.44 H, VBG pCO2 42.2, VBG pO2 47.0 H, VBG HCO3 28.0, VBG Total CO2 29.2 H, VBG O2 Saturation 82.1 H, VBG Base Excess 3.8 H, VBG Lactic Acid 1.4 04/26/25 19:32: Chlamy pneumoniae PCR Not detected, Adenovirus (PCR) Not detected, B. pertussis DNA (PCR) Not detected, Coronavirus OC43 (PCR) Not detected, Coronavirus HKU1 (PCR) Not detected, Coronavirus 229E (PCR) Not detected, SARS-CoV-2 (PCR) Not detected, Coronavirus NL63 (PCR) Not detected, Human Metapneumovir PCR Not detected, Influenza A (H1) PCR Not detected, Influ A (H1N1/09) PCR Not detected, Influenza A (H3) PCR Not detected, Influenza Type A (PCR) Not detected, Influenza Type B (PCR) Not detected, M. pneumoniae (PCR) Not detected, Parainfluenza 1 (PCR) Not detected, Parainfluenza 2 (PCR) Not detected, Parainfluenza 3 (PCR) Not detected, Parainfluenza 4 (PCR) Not detected, RSV (PCR) Not detected, Entero/Rhino (PCR) Not detected 04/26/25 19:43: Ammonia 36 H 04/26/25 19:52: Urine Color Yellow, Urine Appearance Clear, Urine pH 8.0, Ur Specific Malone 1.015, Urine Protein Negative, Urine Glucose (UA) Negative, Urine Ketones Negative, Urine Blood Negative, Urine Nitrate Negative, Urine Bilirubin Negative, Urine Urobilinogen 0.2, Ur Leukocyte Esterase Negative, Urine RBC 5-10, Urine WBC 5-10, Ur Squamous Epith Cells 3-5, Urine Bacteria 2+, Urine Mucus 1+ Orders (Tests/Meds): ED MEDICATIONS Discontinued Medications Generic Name Dose Route Start Last Admin Trade Name Freq PRN Reason Stop Dose Admin Sodium Chloride 1,000 mls @ 999 mls/hr 04/26/25 19:23 04/26/25 19:49 Sod Chlor 0.9% 1000ml Bag IV 04/26/25 20:23 999 mls/hr .Q1H1M ONE Administration Ceftriaxone Sodium 1 gm/ 50 mls @ 100 mls/hr 04/26/25 21:00 04/26/25 21:35 Sodium Chloride IV 04/26/25 21:29 100 mls/hr ONCE ONE Administration Iopamidol 70 ml 04/26/25 20:19 04/26/25 20:20 Iopamidol-370 (76%);100ml Bottle IV 04/26/25 20:20 70 ml ONCE ONE Administration Sodium Chloride 50 ml 04/26/25 20:19 04/26/25 20:20 0.9 % Sodium Chloride 50 Ml Vial IV 04/26/25 20:20 50 ml ONCE ONE Administration Sodium Chloride 10 ml 04/26/25 20:19 04/26/25 20:20 Sodium Chloride 0.9% 10ml Syr (Rad Only) IV 04/26/25 20:20 10 ml ONCE ONE Administration ORDERS Category Date Time Status CT abdomen pelvis w con Stat Cat Scan 04/26/25 19:[address] angio chest PE protocol Stat Cat Scan 04/26/25 19:[address] head/brain wo con Stat Cat Scan 04/26/25 19:25 Completed Ammonia Stat Lab 04/26/25 19:43 Completed BNP [NT Pro Brain Natriuretic Pep.] Stat Lab 04/26/25 19:23 Completed CK [Creatine Kinase] Stat Lab 04/26/25 19:23 Completed CMP [Comprehensive Metabolic Panel] Stat Lab 04/26/25 19:23 Completed CRP [C-Reactive Protein] Stat Lab 04/26/25 19:23 Completed Complete Blood Count Auto Diff Stat Lab 04/26/25 19:23 Completed ESR [Erythrocyte Sedimentation Rate] Stat Lab 04/26/25 19:23 Completed Full Resp Panel w/COVID ([facility]) Routine Lab 04/26/25 19:32 Completed HIV Combo Routine Lab 04/26/25 19:23 Completed Hepatitis C Ab Qual. W/ RFX Routine Lab 04/26/25 19:23 Completed INR [Prothrombin Time INR] Stat Lab 04/26/25 19:23 Completed Lipase Stat Lab 04/26/25 19:23 Completed Magnesium Stat Lab 04/26/25 19:23 Completed PTT [Activated Partial Thrombo Time] Stat Lab 04/26/25 19:23 Completed Procalcitonin Stat Lab 04/26/25 19:23 Completed Thyroid Panel Stat Lab 04/26/25 19:23 Completed Trop I [Troponin I] Stat Lab 04/26/25 19:23 Completed Troponin I Q3H Lab 04/26/25 22:30 Ordered Troponin I Q3H Lab 04/27/25 01:30 Ordered UA [Urinalysis and Microscopic] Stat Lab 04/26/25 19:52 Completed Urine Culture Stat Micro 04/26/25 19:52 Received VBG [Venous Blood Gas] Stat RT 04/26/25 19:27 Completed ECG Data Tracing #1: I reviewed this ECG and interpreted as documented below: Normal sinus rhythm with a ventricular rate of [address] changes concerning for STEMI. Normal interval ECG initial impression date: 04/26/25 ECG initial impression time: 20:43 Critical Care <YUVAL East - Last Filed: 04/26/25 22:21> Critical Care Time Critical Care Time: Yes Attestation: On 04/26/25, the high probability of a clinically significant, sudden or life threatening deterioration of the following system(s) required my full and direct attention, intervention and personal management. The time I documented below is in addition to time spent performing reported procedures but includes the following listed in this critical care notation. Total Time Total Critical Care Time: 30
--- OUTSIDE RECORDS SUMMARY | 2025-04-26 19:14 | XMS_ITS | Clinical Summary ---
Author Organization [employer] Address [address] [place] [address] Care Team Providers Care Primer Powder Blender Wet Name Role Phone Marly Kumar MACHINIST FIRST CLASS Primary Care Provider [phone] Allergies Active Allergy Reactions Criticality Noted Date [...] by mouth 2 (two) times daily. Active Active Problems Problem Noted Date Diagnosed Date HTN (hypertension) 10/06/2024 Stented coronary artery 10/06/2024 CAD (coronary artery disease) 10/06/2024 CHF (congestive heart failure) 10/06/2024 Pacemaker 10/06/2024 Other supraventricular tachycardia 10/06/2024 CO (myocardial infarction) 10/06/2024 Gastroesophageal reflux disease 10/06/2024 Seizures 10/06/2024 TIA (transient ischemic attack) 10/06/2024 Chronic obstructive pulmonary disease 10/06/2024 Smoker 10/06/2024 Social History Tobacco Use Types Packs/Day Years [...] Sign Reading Time Taken Comments Blood Pressure 173/81 10/06/2024 1:40 PM EST Pulse 67 10/06/2024 1:40 PM EST Temperature 36.3 C (97.3 F) 10/06/2024 1:40 PM EST Respiratory Rate 14 10/06/2024 1:40 PM EST Oxygen Saturation 100% 10/06/2024 1:40 PM EST Inhaled Oxygen Concentration - - Weight 70.3 kg (155 lb) 10/06/2024 11:49 AM EST Height 152.4 cm (5') 10/06/2024 11:49 AM EST Body Mass Index 30.27 10/06/2024 11:49 AM EST Plan of Treatment Health Maintenance Due Date Last Done Comments CT Colonography 1955 Colonoscopy 1955 Colorectal Cancer Screening 1955 DXA SCAN 1955 FOBT/FIT 1955 Fit-DNA (Cologuard) 1955 Sigmoidoscopy 1953 Depression Screening (12+) 1965 Hepatitis C Screening 1971 Pneumococcal 50+ years (1 of 2 - PCV) 1972 Breast Cancer Screening 1993 Shingles Vaccine (Zoster) (1 of 2) 2003 Respiratory Syncytial Virus (RSV) Adult or (1 - Risk 60-74 years 1-dose series) 2013 COVID-19 VACCINE ( - season) 2024 Falls Risk Screening 11/02/2024 Influenza Vaccine (Season Ended) 2025 Tobacco Cessation Counseling and Screening (12+) 10/0610/06/2024 DTAP/TDAP/TD VACCINES (2 - Td or Tdap) 08/07/2033 Medical Devices Implanted Type Area Furniture Polisher Device Identifier Shelf Expiration Date Model / Serial / Lot Iol Uv Clareon +21.5 [id number] - [id number] Implanted:Qty: 1 on 09/22/2024 by Urmila So MD at [facility] IMPLANTS Left: Eye GUS 09/24/2027 [id number] / [id number] / Iol Uv Clareon +22.0 [id number] - [id number] Implanted:Qty: 1 on 10/06/2024 by Urmila So MD at [facility] IMPLANTS Right: Eye GUS 08/05/2027 [id number] / [id number] / Insurance MEDICARE PART B ONLY MEDICAID OF [place] MEDICARE PART A B Care Teams Primer Powder Blender Wet Relationship Specialty Start Date End Date Marly Kumar NP [address] [place] [address] PCP - General Nurse Practitioner 09/22/24
--- OUTSIDE RECORDS SUMMARY | 2025-04-26 19:15 | XMS_ITS | Referral Summary ---
Author Organization [email or web address] Address [address] [place] [address] Care Team Providers Care Color Checker Name Role Phone Marly Kumar JEWEL BLOCKER AND SAWYER Primary Care Provider [phone] Allergies Active Allergy Reactions Criticality Noted Date [...] 10/06/2024 Pacemaker 10/06/2024 Other supraventricular tachycardia 10/06/2024 IA (myocardial infarction) 10/06/2024 Gastroesophageal reflux disease 10/06/2024 [...] 10/06/2024 11:49 AM EST Plan of Treatment Not on file Medical Devices Implanted Type Area Centerpuncher Device Identifier Shelf Expiration Date Model / Serial / Lot Iol Uv Clareon +21.5 [id number] - [id number] Implanted:Qty: 1 on 09/22/2024 by Urmila So MD at [facility] IMPLANTS Left: Eye GUS 09/24/2027 [id number] / [id number] / Iol Uv Clareon +22.0 [id number] - [id number] Implanted:Qty: 1 on 10/06/2024 by Urmila So MD at [facility] IMPLANTS Right: Eye GUS 08/05/2027 [id number] / [id number] / Insurance MEDICARE PART B ONLY MEDICAID OF [place] MEDICARE PART A B Care Teams Color Checker Relationship Specialty Start Date End Date Marly Kumar NP [address] [place] [address] PCP - General Nurse Practitioner 09/22/24
--- OUTSIDE RECORDS SUMMARY | 2025-04-26 19:16 | XMS_ITS | Encounter Summary ---
Author Organization [employer] Address [address] [place] [address] Care Team Providers Care Website Developer Name Role Phone Marly Kumar DUNG Primary Care Provider [phone] Encounter Details Date Type Department Care Team (Late st Contact Info) Description 07/28/2020 Transcribed Document [facility] [place] Family Medicine [address] [place] [address] ProviderMiya MD [address] [place] [address] Social History Tobacco Use Types Packs/Day Years [...] up with Dr. Duong in 6 months. /[id number] MD RAPHAEL Esquivel/JOHNNIE / RAPHAEL / MODL /[id number] documented in this encounter Plan of Treatment Not on file documented as of this encounter Visit Diagnoses Not on filedocumented in this encounter Care Teams Website Developer Relationship Specialty Start Date End Date Marly Kumar NP [address] [place] [address] PCP - General Nurse Practitioner 09/22/24 documented as of this encounter
--- OUTSIDE RECORDS SUMMARY | 2025-04-26 19:16 | XMS_ITS | Encounter Summary ---
Author Organization [facility] [employer] Address [address] [place] [address] Care Team Providers Care Fitter Hand Name Role Phone Marly Kumar DUNG Primary Care Provider [phone] Encounter Details Date Type Department Care Team (Late st Contact Info) Description 07/28/2020 Transcribed Document [facility] [place] Family Medicine [address] [place] [address] ProviderMiya MD [address] [place] [address] Social History Tobacco Use Types Packs/Day Years Used Date Smoking Tobacco: Never Assessed Comments Unknown Sex and Gender Information Value Date Recorded Sex Assigned at Female 05/01/2022 3:59 PM CDT Legal Sex Female 1:54 PM CDT Gender Identity Female 05/01/2022 3:59 PM CDT Sexual Orientation Not on file documented as of this encounter Miscellaneous Notes * Cerner Conversion Note - Miya Provider, - 07/28/2020 10:08 AM CDT [address] , [place] [address] Patient Copy Patient Information: Name: RENNY VILLA Current Date: 07/28/2020 10:08:21 : 1955 Patient Address: [address] [place] [phone] Patient Attending Physician: YADI SIDDIQI MD-NEU Primary Care Provider: MARIE OMER (REF)ALEJA Primary Care Provider Discharge Diagnosis: Abnormal electroencephalogram (EEG); Localization-related (focal) (partial) idiopathic epilepsy and epileptic syndromes with seizures of localized onset, intractable, without status epilepticus Comment: Follow-up Instructions: With: Address: When: YADI SIDDIQI [address] [place] [address], [address] [place] [id number] Business (1) Within 6 months Discharge Instructions: [...] Oral Every Day. fluticasone nasal (Flonase) 1 Mcgrath(s) Nostrils Both Every Day. furosemide (Lasix 40 [...] Assistance with quitting is available by contacting [phone]-RAFG-NOW. This is a free resource providing counseling, [...] Be sure to sign up for the [facility] patient portal, which gives you 25/05 access to your medical information ??? including these discharge instructions ??? using your computer, smartphone, or tablet. Just go to Advise Only to get started. Questions? Call . [facility] would like to thank you for allowing us to assist you with your healthcare needs. DAISY Richter JACKQUELINE F, (or home furnishings sales representative) have received the above patient education materials/instructions and have verbalized understanding: Patient Signature _ Date/Time Patient Feed Grinder Signature (if needed) Date/Time Clinician/Hospital Feed Grinder Signature (if needed) Date/Time Electronically signed by Interface, [facility] Conversion Ad Compositor Cerner at 02/19/2023 6:41 PM CDT documented in this encounter Plan of Treatment Not on file documented as of this encounter Visit Diagnoses Not on filedocumented in this encounter Care Teams Fitter Hand Relationship Specialty Start Date End Date Marly Kumar, DUNG [address] [place] [address] PCP - General Nurse Practitioner 09/22/24 documented as of this encounter
--- OUTSIDE RECORDS SUMMARY | 2025-04-26 19:17 | XMS_ITS | Data Portability ---
Author Organization [facility][1] [facility], [facility] [address] [facility] [address] [place] [address] Care Team Providers Care Communications Project Lead Name Role Phone GIAN SHULTZ Primary Care Provider [phone] Assessment Encounter Date Assessment Date Assessment LastModified by Organization Details LastModified Time 02/25/2022 02/25/2022 (This note was produced using voice recognition computer-[employer] suleman dictation software. Errors maybe present despite proofreading and editing). [email or web address] Not available 02/25/2022 10:16:58 Plan of Treatment Reminders Order Date Submit Date Provider Last Modified By Organization Details Last Modified Time Details Appointments None recorde d. Lab None recorde d. Referral clinica l cardiac electro physiol ogist referra l 2021 [email or web address] Elenita Larose MD, [address], [address], [place], [address], 14:57:12 Procedures None recorde d. Surgeries cardiac generat or change (SURG) 2021 022 [email or web address] Not available 15:33:48 Imaging US, echocar diogram , transth oracic, complet e, w/ color flow 2021 [email or web address] [facility] (Central Scheduling All Locations), [facility], [place], [address], 10:22:34 electro cardiog yoko 2021 022 [email or web address] In-Office Order, Internal Use Only DO Not Attach Compendium DO Not Attach Compendium, Do Not Delete/merge, [id number] 10:56:56 Medication Orders None recorde d. Patient TargetsNo targets recorded. Patient Instructions Encounter Date Encounter Id Patient Instructions Last Modified By Organization Details Last Modified Time 02/25/2022 [id number] device remote enrollment* [email or web address] Not available 03/06/2022 12:11:22 medical record request* [email or web address] Not available 03/14/2022 13:48:11 epilepsy: care instructions [email or web address] Not available 02/25/2022 10:24:38 high cholesterol : care instructions [email or web address] Not available 02/25/2022 10:24:38 high blood pressure: care instructions [email or web address] Not available 02/25/2022 10:24:38 learning about high blood pressure sadigun Not available 02/25/2022 10:24:38 Thank you for allowing us to participate in the care of this pleasant patient. RTO in [address] Schmidt Pt has multiple medical co-morbidities. Decision making highly complex. 61 mins of total encounter time spent with patient including [id number]-dwnv and review of records. [email or web address] Not available 02/25/2022 10:57:44 Reason for Referral Clinical Cardiac Electrophys iologist Referral for Automatic implantable cardiac defibrillator in situ Referring Physician: Ivan Connolly, Cardiology, Encounter Date: 02/25/2022 Results Created Date Observation Date Name Description Value Unit Range Abnormal Flag Note LastModifiedBy Organization Detail LastModifiedTime 03/07/20 22 03/07/2022 PROTH ROMBI N TIME W/ INR PT 15.5 secon d(s) 9.6-12 .2 high DISCL AIMER : Effec t of inhib itor drugs canno t be exclu ded. Not Available [facility] (Lab) [address], [place], [address], 03/07/2022 06:59:01 03/07/20 22 03/07/2022 PROTH ROMBI N TIME W/ INR INR 1.5 0.9-1. 1 high The Ameri can Colle ge of Chest Physi cians ' conse nsus panel recom mends low-i ntens ity warfa rin thera py (INR, 2.0 to 3.0) for all indic ation s excep t prost hetic mecha nical heart valve s and proph ylaxi s of recur rent [place], for which highe r-int ensit y warfa rin thera py (INR, 2.5 to 3.5) is martir savage. For a perso n who is not on a blood -thin porter medic ation , the INR britany l refer ence range is 0.9-1 .1 Not Available [facility] (Lab) [address] [place], [address], 03/07/2022 06:59:01 03/07/20 22 03/07/2022 COMPL ETE BLOOD COUNT WBC 5.8 x10(3 )/mcL 3.7-10 .7 Not Available [facility] (Lab) [address] [place], [address], 03/07/2022 06:59:15 03/07/20 22 03/07/2022 COMPL ETE BLOOD COUNT RBC cnt 3.87 x10(6 )/mcL 3.40-5 .30 Not Available [facility] (Lab) [address] [place], [address], 03/07/2022 06:59:15 03/07/20 22 03/07/2022 COMPL ETE BLOOD COUNT HGB 12.0 g/dL 11.4-1 5.8 Not Available [facility] (Lab) [address] [place], [address], 03/07/2022 06:59:15 03/07/20 22 03/07/2022 COMPL ETE BLOOD COUNT HCT 35.5 % 34.0-4 7.0 Not Available [facility] (Lab) [address] [place] [address], [address], 03/07/2022 06:59:15 03/07/20 22 03/07/2022 COMPL ETE BLOOD COUNT MCV 92 fL 80-97 Not Available [facility] (Lab) [address] [place] [address], [address], 03/07/2022 06:59:15 03/07/20 22 03/07/2022 COMPL ETE BLOOD COUNT MCH 31 pg 26-33 Not Available [facility] (Lab) [address] [place] [address], [address], 03/07/2022 06:59:15 03/07/20 22 03/07/2022 COMPL ETE BLOOD COUNT MCHC 34 g/dL 33-36 Not Available [facility] (Lab) [address] [place] [address], [address], 03/07/2022 06:59:15 03/07/20 22 03/07/2022 COMPL ETE BLOOD COUNT RDW 16.0 % 11.5-1 6.0 Not Available [facility] (Lab) [address] [place] [address], [address], 03/07/2022 06:59:15 03/07/20 22 03/07/2022 COMPL ETE BLOOD COUNT plt cnt 173 x10(3 )/mcL 130-40 0 Not Available [facility] (Lab) [address] [place] [address], [address], 03/07/2022 06:59:15 03/07/20 22 03/07/2022 COMPL ETE BLOOD COUNT MPV 10.7 fL 7.5-11 .2 Not Available [facility] (Lab) [address] [place] [address], [address], 03/07/2022 06:59:15 03/07/20 22 03/07/2022 COMPL ETE BLOOD COUNT instr WBC 5.8 no reference range Not Available [facility] (Lab) [address] [place], [address], 03/07/2022 06:59:15 03/07/20 22 03/07/2022 BASIC METAB OLIC PANEL sodium 138 mmol/ L 138-14 6 Not Available [facility] (Lab) [address] [place] [address], [address], 03/07/2022 07:11:51 03/07/20 22 03/07/2022 BASIC METAB OLIC PANEL potassium 3.9 mmol/ L 3.5-5. 2 Not Available [facility] (Lab) [address] [place] [address], [address], 03/07/2022 07:11:51 03/07/20 22 03/07/2022 BASIC METAB OLIC PANEL chloride 100 mmol/ L 98-114 Not Available [facility] (Lab) [address] [place] [address], [address], 03/07/2022 07:11:51 03/07/20 22 03/07/2022 BASIC METAB OLIC PANEL carbon dioxide 33 mmol/ L 22-33 Not Available [facility] (Lab) [address] [place] [address], [address], 03/07/2022 07:11:51 03/07/20 22 03/07/2022 BASIC METAB OLIC PANEL BUN 19 mg/dL 5-26 Not Available [facility] (Lab) [address] [place], [address], 03/07/2022 07:11:51 03/07/20 22 03/07/2022 BASIC METAB OLIC PANEL creatinine 1.19 mg/dL 0.50-1 .30 The GFR britany l range may vary by facto rs inclu ding extre me body size, pregn don, hospi aaron treat ment, other ethni citie s, etc. Not Available [facility] (Lab) [address] [place], [address], 03/07/2022 07:11:51 03/07/20 22 03/07/2022 BASIC METAB OLIC PANEL glucose 92 mg/dL 70-110 Not Available [facility] (Lab) [address] [place], [address], 03/07/2022 07:11:51 03/07/20 22 03/07/2022 BASIC METAB OLIC PANEL calcium 9.4 mg/dL 8.5-10 .1 Not Available [facility] (Lab) [address] [place], [address], 03/07/2022 07:11:51 03/07/20 22 03/07/2022 BASIC METAB OLIC PANEL eGFR non 47 mL/mi n/1.7 3_m2 >=60 low Not Available [facility] (Lab) [address] [place], [address], 03/07/2022 07:11:51 03/07/20 22 03/07/2022 BASIC METAB OLIC PANEL eGFR 54 mL/mi n/1.7 3_m2 >=60 low Not Available [facility] (Lab) [address] [place], [address], 03/07/2022 07:11:51 03/07/20 22 03/07/2022 BASIC METAB OLIC PANEL anion gap 5 mmol/ L 5-15 Not Available [facility] (Lab) [address] [place], [address], 03/07/2022 07:11:51 03/07/20 22 03/07/2022 BASIC METAB OLIC PANEL BUN/crea ratio 16 mmol/ L 6-22 Not Available [facility] (Lab) [address] [place], [address], 03/07/2022 07:11:51 03/07/20 22 03/07/2022 BASIC METAB OLIC PANEL osmol calc 288 mOsm/ kg 270-30 0 Not Available [facility] (Lab) [address], [place], [address], 03/07/2022 07:11:51 02/26/20 22 02/25/2022 elect halima solisgr am No observ ation record ed. talha In-Office Order Internal Use Only DO Not Attach Compendium DO Not Attach Compendium, Do Not Delete/merge, [id number] 02/25/2022 10:56:57 02/26/20 22 02/25/2022 devic e remot e enrol lment * No observ ation record ed. [email or web address] Not Available 2021 12:11:21 02/26/20 22 02/25/2022 US, echoc ardio gram, trans thora cic, compl ete, w/ color flow No observ ation record ed. [email or web address] Not Available 2021 10:22:34 06/25/20 22 06/23/2022 pacem yessy check (PROC ) No observ ation record ed. BARCODE Not Available 2021 16:29:05 10/30/20 22 07/30/2022 remot e cardi ac devic e inter rogat ion No observ ation record ed. INTERFACE [address], [address], 10/30/2022 10:29:35 10/30/20 22 08/30/2022 remot e cardi ac devic e inter rogat ion No observ ation record ed. INTERFACE [facility] [place] [address] [place], [address], 10/30/2022 13:33:15 04/05/20 23 11/29/2022 remot e cardi ac devic e inter rogat ion No observ ation record ed. INTERFACE [address] [address] [place], [address], 04/05/2023 23:01:21 04/05/20 23 11/29/2022 remot e cardi ac devic e inter rogat ion No observ ation record ed. INTERFACE [address], [address], 04/05/2023 23:01:24 04/06/20 23 01/28/2023 remot e cardi ac devic e inter rogat ion No observ ation record ed. INTERFACE [address], [address], 04/06/2023 07:40:23 04/06/20 23 04/01/2023 remot e cardi ac devic e inter rogat ion No observ ation record ed. INTERFACE [address], [address], 04/06/2023 19:18:29 04/06/20 23 03/01/2023 remot e cardi ac devic e inter rogat ion No observ ation record ed. INTERFACE [address], [address], 04/06/2023 19:33:38 04/06/20 23 03/01/2023 remot e cardi ac devic e inter rogat ion No observ ation record ed. INTERFACE [address], [address], 04/06/2023 19:34:00 05/08/20 23 05/02/2023 remot e cardi ac devic e inter rogat ion No observ ation record ed. INTERFACE [address], [address], 05/08/2023 17:23:04 06/01/20 23 05/15/2023 remot e cardi ac devic e inter rogat ion No observ ation record ed. INTERFACE [address], [address], 06/01/2023 00:30:26 06/16/20 23 06/15/2023 remot e cardi ac devic e inter rogat ion No observ ation record ed. INTERFACE [address] [place], [address], 06/16/2023 14:06:12 06/16/20 23 06/15/2023 remot e cardi ac devic e inter rogat ion No observ ation record ed. INTERFACE [facility] [address] [place], [address], 06/16/2023 14:07:54 07/22/20 23 07/16/2023 remot e cardi ac devic e inter rogat ion No observ ation record ed. INTERFACE [facility] [address] [place], [address], 07/22/2023 20:54:00 08/21/20 23 08/18/2023 remot e cardi ac devic e inter rogat ion No observ ation record ed. INTERFACE [facility] [address] [place], [address], 08/21/2023 20:17:15 09/29/20 23 09/16/2023 remot e cardi ac devic e inter rogat ion No observ ation record ed. INTERFACE [facility] [address] [place], [address], 09/29/2023 17:16:46 09/29/20 23 09/16/2023 remot e cardi ac devic e inter rogat ion No observ ation record ed. INTERFACE [facility] [address] [place], [address], 09/29/2023 17:17:41 10/22/20 23 10/17/2023 remot e cardi ac devic e inter rogat ion No observ ation record ed. INTERFACE [facility] [address] [place], [address], 10/22/2023 22:11:12 11/20/19 24 11/17/2023 remot e cardi ac devic e inter rogat ion No observ ation record ed. INTERFACE [facility] [address] [place], [address], 11/20/2023 16:24:04 12/31/19 24 12/18/2023 remot e cardi ac devic e inter rogat ion No observ ation record ed. INTERFACE [address], [address], 12/31/2023 15:38:37 12/31/19 24 12/18/2023 remot e cardi ac devic e inter rogat ion No observ ation record ed. INTERFACE [address], [address], 12/31/2023 15:38:43 01/20/20 24 01/18/2024 remot e cardi ac devic e inter rogat ion No observ ation record ed. INTERFACE [address], [address], 01/20/2024 23:02:46 02/27/20 24 02/18/2024 remot e cardi ac devic e inter rogat ion No observ ation record ed. INTERFACE [address], [address], 02/27/2024 07:03:15 Result Notes None recorded. Problems Name Problem SNOMED Code Status Onset Date Resolution Date Notes Provider Name and Address Organization Details Recorded Time Automatic implantable cardiac defibrillato r in situ 365787428 Active 2021 IVAN CONNOLLY NP [address], [place], [address], [facility] 2 10:21:57 Seizure disorder 514308354 Active 2021 IVAN CONNOLLY NP [address], [place], [address], [facility] [place] [facility] 2 10:57:44 History of cardiac arrest 215579206 Active 2021 IVAN CONNOLLY NP [address], [place], [address], [facility] 2 10:57:45 Hyperlipidem ia 41575782 Active 2021 IVAN CONNOLLY NP [address], [place], [address] [place] [address], [facility] 2 10:57:47 Benign essential hypertension 5240092 Active 2021 IVAN CNONOLLY NP [address], [place], [address] [place] [address], [facility] 2 10:57:50 Disorder of thyroid gland 08257091 Active 2021 IVAN CONNOLLY NP [address], [place], [address] [place] [address], [facility] 2 11:21:16 Coronary atherosclero sis 652959290 Active 2021 IVAN CONNOLLY NP [address], [place], [address] [place] [address], [facility] 2 11:21:17 Problem Notes None recorded. Procedures Surgical History Date Name Laterality Status Provider Name and Address Organization Details Recorded Time ELECTROPHYSIOLOGIC EVALUTATION OF SINGLE OR DUAL CHAMBER PACING CARDIOVERTER-DEFIBRIL LATOR LEADS INCLUDING DEFIBRILLATION THRESHOLD EVALUATION AT TIME OF INITIAL IMPLANTATION OR REPLACEMENT, WITH TEST completed Jeremy Angeles RN [facility] 03/19/2022 14:32:31 022 73837: ICD interrogation completed IVAN CONNOLLY NP [address], [place], [address] [place] [address], [facility] 02/25/2022 10:23:56 Imaging Results None recorded. Procedure Notes None recorded. Medical Equipment None Reported. Allergies Allergen ID Allergen Name Allergen Category Reaction Reaction Severity Criticality Documentation Date Start Date Code Code System Note Provider Name and Address Organization Details Recorded Time 04514 Product containin g penicilli n (product) medicatio n itching Not available low 02/25/2022 60523 8001 SNOMED [facility] tierra, [facility] 2 08:49:24 45156 Substance with sulfonami de structure and antibacte rial mechanism of action (substanc e) medicatio n flushing Not available low 02/25/2022 11728 8003 SNOMED [employer] Pack null, [facility] 2 08:49:42 31106 Fosamax medicatio n anaphylax is Not available low 02/25/2022 01302 5 RxNorm [facility] Pack null, [facility] 2 08:49:57 Medications Name Sig Start Date Stop Date Status Note LastModified by Organization Details LastModified Time furosemide 40 mg tablet TAKE TWO TABLETS IN THE MORNING AND ONE TABLET AT 4 PM active Not Available Not Available No t Available atorvastatin 40 mg tablet TAKE ONE TABLET AT BEDTIME active Not Available Not Available No t Available doxycycline hyclate 100 mg capsule TAKE ONE CAPSULE TWICE DAILY FOR THREE DAYS active Not Available Not Available No t Available donepezil 5 mg tablet TAKE ONE TABLET AT BEDTIME active Not Available Not Available No t Available trazodone 50 mg tablet TAKE ONE TABLET BY MOUTH EVERY DAY active Not Available Not Available No t Available azithromycin 250 mg tablet TAKE 2 TABLETS BY MOUTH ON DAY 1, THEN TAKE 1 TABLET DAILY ON DAYS 2-5 active Not Available Not Available No t Available tizanidine 4 mg tablet TAKE 1/2 TABLET TO ONE TABLET EVERY SIX HOURS NEEDED FOR PAIN active Not Available Not Available No t Available divalproex 500 mg tablet,delay ed release active Not Available Not Available N ot Available omeprazole 40 mg capsule,franklin yed release TAKE ONE CAPSULE DAILY active Not Available Not Available No t Available aspirin 81 mg tablet,delay ed release TAKE ONE TABLET EVERY DAY active Not Available Not Available No t Available tramadol 50 mg tablet Take 2 tablets 3 times a day by oral route for 30 days. active Not Available Not Available No t Available carvedilol 3.125 mg tablet TAKE ONE TABLET TWICE DAILY active Not Available Not Available Not Available ondansetron 8 mg disintegrati ng tablet Place 1 tablet every 8 hours by translingua l route as needed. active Not Available Not Available No t Available levothyroxin e 75 mcg tablet TAKE ONE TABLET IN THE MORNING ON EMPTY stomach active Not Available Not Available No t Available oxycodone-ac etaminophen 5 mg-325 mg tablet TAKE ONE TABLET every 6-8 hours NEEDED FOR PAIN FOR THREE DAYS active Not Available Not Available N ot Available levothyroxin e 88 mcg tablet TAKE ONE TABLET EVERY MORNING active Not Available Not Available No t Available Zofran 8 mg tablet Take 1 tablet as needed by oral route. active Not Available Not Available Not Available potassium chloride ER 20 mEq tablet,exten ded release(part /cryst) TAKE ONE TABLET THREE TIMES DAILY active Not Available Not Available No t Available magnesium oxide 400 mg (241.3 mg magnesium) tablet TAKE ONE TABLET AT BEDTIME active Not Available Not Available No t Available mirtazapine 30 mg tablet TAKE ONE TABLET AT BEDTIME active Not Available Not Available No t Available nystatin 100,000 unit/gram topical cream active Not Available Not Available Not Available divalproex ER 500 mg tablet,exten ded release 24 hr TAKE ONE TABLET IN THE MORNING AND ONE TABLET AT BEDTIME active Not Available Not Available No t Available aspirin 81 mg chewable tablet Chew 1 tablet every day by oral route. active Not Available Not Available No t Available Tylenol 325 mg tablet Take 2 tablets every 6-8 hours by oral route. active Not Available Not Available Not Available hydroxyzine HCl 25 mg tablet Take 1/2 to 1 tablet at night to assist with sleep. active Not Available Not Available No t Available mirtazapine 15 mg tablet TAKE ONE TABLET AT BEDTIME active Not Available Not Available No t Available methylpredni solone 4 mg tablets in a dose pack take by MOUTH as directed active Not Available Not Available No t Available loratadine 10 mg tablet TAKE ONE TABLET IN THE MORNING active Not Available Not Available Not Available potassium 20 mg chewable tablet Take 1 tablet every day by oral route. active Not Available Not Available No t Available fenofibrate micronized 145 mg tablet Take 1 tablet every day by oral route. active Not Available Not Available No t Available Nyamyc 100,000 unit/gram topical powder apply SMALL AMOUNT TWICE DAILY NEEDED active Not Available Not Available No t Available melatonin 5mg active Not Available Not Jasmina ilable Not Available fenofibrate nanocrystall ized 145 mg tablet TAKE ONE TABLET AT BEDTIME active Not Available Not Available No t Available melatonin 5 mg tablet TAKE TWO TABLETS AT BEDTIME active Not Available Not Available No t Available magnesium 400 mg (as magnesium oxide) capsule Take 1 capsule every day by oral route. active Not Available Not Available No t Available Claritin 10 mg chewable tablet Take 1 tablet every day by oral route. active Not Available Not Available No t Available Vitals Date Recorded Body height Body mass index (BMI) Body weight Heart rate Oxygen saturation Oxygen saturation in Arterial blood by Pulse oximetry Systolic blood pressure Diastolic blood pressure Provider Name and Address Organization Details Last Updated DateTime 2 152.4 cm 24.6 kg/m2 52125.6 4 g 75 /min 98 % 98 % 170 mm[Hg] 85 mm[Hg] [facility] 2 08:48:28 Social History None recorded. Functional Status Question Answer Note LastModified by Organizat ion Details LastModified Time What is your occupation? RETIRED INTERFACE- Information n ot available 03/06/2022 Mental Status None recorded. Family History Nothing Reported. Medical History No medical history recorded. Gynecological HistoryNo gynecological history recorded. Obstetrics History GPAL:G 0 P 0 0 0 0 Past Encounters Encounter ID Performer Location Encounter Start Date Encounter Closed Date Diagnosis/Indication Diagnosis SNOMED-CT Code Diagnosis ICD10 Code Diagnosis Note [id number] IVAN CONNOLLY NP [facility] [facility] [address] [place] [address] 02/25/2022 08:31:24 02/25/2022 10:13:16 Automatic implantable cardiac defibrillator in situ 410433392 Z95.810 SJD _ 10/2011EF unknown; arrange ECHO and attempt to request records from her previous cardiologi st.Her device hit FABIO on JANUARY 16 2022Normal device function and lead data. We will discuss gen change arrangemen t with Dr. Nikita phillips.Her device leads are MRI conditiona l. She has chronic back issues. Benign ess ential hypertension 3760408 I10 Not at goal today. Instructed patient to keep a log.Limit salt Seizure disorder 4717608 02 G40.909 Stable on antiseizur e agents. History of cardiac arrest 077507367 Z86.74 2010ICD appears to have been implanted for secondary prevention . Hyperlipidemia 12410316 E78.5 On statin. Disorder o f thyroid gland 89628029 E07.9 Reportedly euthyroid Coronary atherosclerosis 634399983 I25.10 On ASA and statin We discussed coronary artery disease, including the symptoms, diagnostic tests, and progressio n. Educated patient on healthy life choices including activities and dietary modificati on. We also talked about what to do in the event of chest pain, and the use of anti-angin al and disease modifying medication s. Continue aggressive medical treatment with aspirin and statin therapy. Health Concerns Section Related Observation LastModified by Organization Detai ls LastModified Time None Recorded Concern Status LastModified by Organization Details LastModified Time None Recorded Advance Directives Directive None Recorded Payers Insurance Date Sequence Insurance Name Policy Number Policy Cordero Covered Member ID Cordero Member ID Guarantor Name 10/27/2024 2 [place] [facility] (SECONDARY TO MEDICARE) Eloy Mcneill Gregorio [id number] Eloy Mcneill Gregorio 10/27/2024 [place] [facility] [facility] (SECONDARY TO MEDICARE) Eloy Mcneill Gregorio [id number] Eloy Mcneill Gregorio 10/27/2024 1 [facility] [place] [id number] Patricioisidro Perkins [id number] Patricioisidro Charito Gregorio 10/27/2024 1 [place] Eloy Mcneill Gregorio [id number] Eloy Perkins 10/27/2024 [place] [facility] (SECONDARY TO MEDICARE) Eloy Mcneill Gregorio [id number] Eloy Perkins 11/21/2023 2 UNSPECIFIED REMIT PAYOR Eloy Perkins Notes Date Note Type Note Provider Name and Address Organization Details Recorded Time 02/25/2022 text/html 66 yo pleasant presents as a new patient, at the request of Dr. Christiansen to establish cardiology care.She has history of seizure disorder, HTN, thyroid disorder, and cardiac arrest in 2010 during her granddaughter's hospitalization. She subsequently had ICD implant.She also gives a h/o CAD with 5 stents. Last CATH was evidently 10-15 years ago. Had stress test and ECHO few years ago but records are currently unavailable for review and has been requested.She previously resided in a fdc in [place] prior to facility shutting down. She relocated to [place] last month and currently lives at home with her daughter. During recent eval by her previous cardiology in [place], her device was found to have less than 3% battery longevity. She was asked to establish with a spike maker as soon as she arrives in [place].Symptom cuevas, she denies CP, LINARES, fatigue, palpitation, syncope, or leg edema.Here with daughter IVAN CONNOLLY, COMPUTER TECH [address], [place], [address], [facility] 02/25/2022 11:23:15 OBGyn Episode No OBEpisode recorded.
--- OUTSIDE RECORDS SUMMARY | 2025-04-26 19:17 | XMS_ITS | Encounter Summary ---
Author Organization [facility] [employer] Address [address] [place] [address] Care Team Providers Care Treating And Pumping Supervisor Name Role Phone Marly Kumar GROUP DYNAMICS INSTRUCTOR Primary Care Provider [phone] Encounter Details Date Type Department Care Team (Late st Contact Info) Description 07/28/2020 Transcribed Document [facility] [place] Family Medicine [address] [place] [address] ProviderMiya MD [address] [place], [place] [id number] Social History Tobacco Use Types Packs/Day Years [...] EEG-video monitoring was performed using the 32-channel OnGreen monitoring system. The seizure detection computer was [...] temporal regions, more prominent on the left. /[id number] MD RAPHAEL Esquivel/AQ / TAF / MODL /[id number] Electronically signed by [facility] Conversion Fruit Preserver Cerner at 02/19/2023 6:29 PM CDT documented in this encounter Plan of Treatment Not on file documented as of this encounter Visit Diagnoses Not on filedocumented in this encounter Care Teams Treating And Pumping Supervisor Relationship Specialty Start Date End Date Marly Kumar, DUNG [address] [place] [address] PCP - General Nurse Practitioner 09/22/24 documented as of this encounter
--- OUTSIDE RECORDS SUMMARY | 2025-04-26 19:17 | XMS_ITS | Encounter Summary ---
Author Organization [facility] [employer] Address [address] [place] [address] Care Team Providers Care Recovery Collector Name Role Phone Marly Kumar NP Primary Care Provider Encounter Details Date Type Department Care Team (Late st Contact Info) Description 07/28/2020 Transcribed Document [facility] [place] Family Medicine [address] [place] [address] ProviderMiya MD [address] [place], [place] [id number] Social History Tobacco Use Types Packs/Day Years [...] on filedocumented in this encounter Care Teams Recovery Collector Relationship Specialty Start Date End Date Marly Kumar NP [address] [place] [id number] PCP - General Nurse Practitioner 09/22/24 documented as of this encounter
--- OUTSIDE RECORDS SUMMARY | 2025-04-26 19:17 | XMS_ITS | Encounter Summary ---
Author Organization [facility] [employer] Address [address] [place] [address] Care Team Providers Care Pelota Maker Name Role Phone Marly Kumar DUNG Primary Care Provider [phone] Encounter Details Date Type Department Care Team (Late st Contact Info) Description 07/28/2020 Transcribed Document [facility] [place] Family Medicine [address] [place] [address] ProviderMiya MD [address] [place], [place] [id number] Social History Tobacco Use Types Packs/Day Years [...] HALL PHARMACIST-MEDICATION RECON - 07/28/2020 12:50 EDT Electronically signed by Klaus Sprague Conversion Milling Machine Operator Gear Cerner at 02/19/2023 6:42 PM CDT documented in this encounter Plan of Treatment Not on file documented as of this encounter Visit Diagnoses Not on filedocumented in this encounter Care Teams Pelota Maker Relationship Specialty Start Date End Date Marly Kumar, DUNG [address] [place] [id number] PCP - General Nurse Practitioner 09/22/24 documented as of this encounter
--- OUTSIDE RECORDS SUMMARY | 2025-04-26 19:17 | XMS_ITS | Encounter Summary ---
Author Organization [employer] Address [address] [place] [address] Care Team Providers Care Dressing Machine Operator Name Role Phone Marly Kumar DIDACTIC INSTRUCTOR Primary Care Provider [phone] Encounter Details Date Type Department Care Team (Late st Contact Info) Description 07/27/2020 Transcribed Document [facility] [place] Family Medicine [address] [place] [address] ProviderMiya MD [address] [place], [place] [id number] Social History Tobacco Use Types Packs/Day Years [...] Oil: 1,000 mg, Oral, Daily Flonase: 1 [place], Nostrils Both, Daily Florastor: 250 mg, Oral, [...] Daily, 60 Cap, 0 Refill(s) Flonase: 1 [place], Nostrils Both, Daily, 0 Refill(s) Florastor: 250 [...] = 1 Cap, Oral, Daily Flonase 1 [place], Nostrils Both, Daily Florastor 250 mg, Oral, [...] Oral, Daily fluticasone 0.05% nasal spray 1 [place], Nostrils Both, Daily furosemide 40 mg tab [...] At risk for sleep apnea / IMO [id number] / Confirmed, Active Problems (17) Angina Arthritis [...] EDT Height Source Stated Height Entry Format Marquette Height/Length, PERSIAN (ft) 4 ft Height/Length PERSIAN 11 Inch CLINICALHEIGHT 149.86 cm Type of Weight Measurement. [place] Weight, est lb 245 lb Estimated Clinical Dosing Weight 111.36 kg [place] Body Weight 43 kg Weight Source Stated 07/26/2020 15:40 EDT Height Source Not Done: Completed and previously documented (Not Done) Height Entry Format Not Done: Completed and previously documented (Not Done) Weight Source Not Done: Completed and previously documented (Not Done) , Vitals Signs (last 24 hrs) Last Charted Minimum Maximum Temp 98.3 (JUL 26 12:00) 98.3 (JUL 26 12:00) 98.3 ([facility] 12:00) Apical HR 65 (JUL 26 12:00) 65 ([facility] 12:00) 65 ([facility] 12:00) Resp Rate 18 (JUL 26 12:00) 18 ([facility] 12:00) 18 ([facility] 12:00) SBP H 153 ([facility] 12:00) H 153 ([facility] 12:00) H 153 ([facility] 12:00) DBP 81 ([facility] 12:00) 81 ([facility] 12:00) 81 ([facility] 12:00) General: Alert and oriented. Eye: Pupils are equal, round and reactive to light. Neurologic: Normal motor function, No focal deficits, Cranial Nerves II-XII are grossly intact. Results Review Continuous EEG: bilateral temporal slowing Impression and Plan Discussed findings with patient. 1. Continue video EEG monitoring. 2. DVT prophylaxis Electronically signed by [facility] Conversion Roll Slicing Machine Tender Cerner at 02/19/2023 6:41 PM CDT documented in this encounter Plan of Treatment Not on file documented as of this encounter Visit Diagnoses Not on filedocumented in this encounter Care Teams Dressing Machine Operator Relationship Specialty Start Date End Date Marly Kumar NP [address] [place] [address] PCP - General Nurse Practitioner 09/22/24 documented as of this encounter
--- OUTSIDE RECORDS SUMMARY | 2025-04-26 19:18 | XMS_ITS | Encounter Summary ---
Author Organization [facility] [employer] Address [address] [place] [address] Care Team Providers Care Flat Locker Name Role Phone Marly Kumar DUNG Primary Care Provider [phone] Encounter Details Date Type Department Care Team (Late st Contact Info) Description 07/28/2020 Transcribed Document [facility] [place] [address] [place] [address] ProviderMiya MD [address] [place], [place] [phone] Social History Tobacco Use Types Packs/Day Years [...] On: 07/28/2020 13:07 EDT by JENNIFER TRUJILLO RN-Office Administration Instructor Final Discharge Planning Discharge Arrangements : Patient Post-Acute Information Patient Name: RENNY VILLA Gender: Female : [birth year] Age: 64 Years No Post-Acute Placement(s) Listed No Post-Acute Service(s) Listed No [place] Referral(s) Listed Patient Offered Choice/Affiliations Explained : No Discharge Transportation Arrangement Cmt : [place] transportation Follow Up Appointment Scheduled : No (Comment: List of appointments sent to Patient Access Center [JENNIFER TRUJILLO RN-Office Administration Instructor - 07/28/2020 13:07 EDT] ) Is Patient High/Moderate Readmission Risk? : No Patient/Family Notified of Plan : Yes Is Patient Ready for Discharge? : Yes Physician Notified Patient is Ready for Discharge? : Yes Discharge To Care Management : SNF with Medicare Certification-03 JENNIFER TRUJILLO RN-Office Administration Instructor - 07/28/2020 13:07 EDT Final Narrative Note Final Narrative Note : Discharged back to [facility]. Transportation by [place] [facility] JENNIFER TRUJILLO RN-Office Administration Instructor - 07/28/2020 13:07 EDT documented in this encounter Plan of Treatment Not on file documented as of this encounter Visit Diagnoses Not on filedocumented in this encounter Care Teams Flat Locker Relationship Specialty Start Date End Date Marly Kumar NP [address] [place] [address] PCP - General Nurse Practitioner 09/22/24 documented as of this encounter
--- OUTSIDE RECORDS SUMMARY | 2025-04-26 19:18 | XMS_ITS | Continuity of Care Document ---
[facility] Organization [facility] Address [address] [place] [id number] Assessment Encounter Date Assessment Date Assessment LastModified by Organization Details LastModified Time 03/29/2025 03/29/2025 COPD exacerbation today. Will treat with azithromycin and prednisone. Chest XR. Continue home nebulizer PRN. If worsening in next 48 hours, patient instructed to go to ER. She voiced understanding. Follow up in 3 months for recheck and fasting labs (lipid, CBC, CMP, TSH/T4) Consider tdap update as well. Not available 03/29/2025 09:38:25 Plan of Treatment Reminders Order Date Submit Date Provider Last Modified By Organization Details Last Modified Time Details Appointments FOLLOW UP 30 2024 02:30P Marly Singleton Not available Not available Not available Lab None recorded. Referral None recorded. Procedures None recorded. Surgeries None recorded. Imaging XR, chest, 2 view 2024 025 [email or web address] [facility], [address] [place] [address], [id number], 03/29/2025 12:33:56 Medication Orders Chest Congestio n Relief DM 20 mg-400 mg tablet 2024 025 [facility], [address] [place] [address], [id number], 03/29/2025 09:49:03 benzonata te 200 mg capsule 2024 025 [facility], [address] [place] [address], [id number], 03/29/2025 09:49:03 prednison e 20 mg tablet 2024 025 [facility], [address] [place] [address], [id number], 03/29/2025 09:49:04 azithromy chasity 250 mg tablet 2024 025 [facility], [address] [place] [address], [id number], 03/29/2025 09:49:03 Patient TargetsNo targets recorded. Patient InstructionsNo instructions recorded. Reason for Referral None Reported. Results Created Date Observation Date Name Description Value Unit Range Abnormal Flag Note LastModifiedBy Organization Detail LastModifiedTime 03/14/2003/14/2025 MAMMO , diagn ostic , digit al, unila teral No observ ation record ed. [facility] Centralized Scheduling [address], [place], [address], 03/15/2025 10:21:18 03/29/20 XR, chest , 2 view No observ ation record ed. [email or web address] [address], [address], 03/29/2025 15:02:44 04/25/20 25 04/25/2025 XR, chest No observ ation record ed. [email or web address] [facility] (Radiology) [address] [place], [address], 04/26/2025 09:15:25 04/26/20 25 04/25/2025 US, liver No observ ation record ed. [email or web address] [facility] (Radiology) [address] [place], [address], 04/26/2025 08:46:22 Result Notes None recorded. Problems Name Problem SNOMED Code Status Onset Date Resolution Date Notes Provider Name and Address Organization Details Recorded Time Hyperten sive disorder 78621271 Active [address], [id number] , [employer] 3 14:59:06 Hyperlip idemia 13715752 Completed 202203/29/2025 Marly Kumar NP [address] [place] [address], [address] [place] [address] , [employer] 5 09:38:16 Chronic obstruct mark pulmonar y disease 09762756 Active [address], [address] [place] [address] , [employer] 3 14:59:59 Hypothyr oidism 46564737 Active [address], [address] [place] [address] , [employer] 3 15:01:45 Monitori ng of pacemake r 63170911 Active [address], [address] [place] [address] , [employer] 3 15:22:52 Seizure disorder 892658954 Active 2022 Marly Kumar NP [address] [place] [address], [address] [place] [address] , [employer] 4 18:02:53 Memory impairme nt 370223775 Active 2022 Marly Kumar NP [address] [place] [address], [address] , [employer] 4 18:02:44 Seasonal allergy 849231615 Active 2022 Marly Kumar NP [address] [place] [address], [address] , [employer] 4 18:02:51 Nausea 507701633 Completed 202205/26/2024 Marly Kumar NP [address] [place] [address], [address] , [employer] 4 18:02:48 Mixed hyperlip idemia 452826684 Active 2022 Marly Kumar NP [address] [place] [address], [address] , [place] [employer] 4 18:02:46 Anxiety disorder 033295491 Completed 202205/26/2024 Marly Kumar NP [address] [place] [address], [address] , [place] [employer] 4 12:06:47 Insomnia 742491701 Active 2022 Marly Kumar NP [address] [place] [address], [address] , [employer] 4 18:02:40 Hypomagn esemia 190211918 Completed 202205/26/2024 Marly Kumar NP [address] [place] [address], [address] , [place] [employer] 4 18:02:38 Gastroes ophageal reflux disease without esophagi tis 369259804 Active 2022 Marly Kumar NP [address] [place] [address], [address] , [employer] 4 18:02:34 Hypokale caitlyn 97597957 Completed 202205/26/2024 Marly Kumar NP [address] [place] [address], [address] , [employer] 5 09:20:02 Candidia sis of skin 52775238 Completed 202205/26/2024 Marly Kumar NP [address] [place] [address], [address] , [employer] 5 14:39:29 Wound of skin 714945294 Active 2022 Marly Kumar NP [address] [place] [address], [address] , [place] [employer] 4 18:02:55 Localize d swelling of head 99240225765 989571 Completed 202305/26/2024 Marly Kumar NP [address] [place] [address], [address] , [place] [employer] 4 18:02:42 Chronic low back pain 172657697 Active 2023 Marly Kumar NP [address] [place] [address], [address] , [place] [employer] 4 18:02:29 Abnormal gait due to muscle weakness 662792026 Completed 202305/26/2024 Marly Kumar NP [address] [place] [address], [address] , [place] [employer] 4 12:06:44 Diarrhea 13169827 Completed 202305/26/2024 Marly Kumar NP [address] [place] [address], [address] , [place] [employer] 4 18:02:32 Numbness of hand 169446930 Completed 202309/08/2024 Marly Kumar NP [address] [place] [address], [address] , [place] [employer] 4 09:59:28 Peripher al demyelin ating neuropat hy 56054550 Active 2023 Marly Kumar NP [address] [place] [address], [address] , [place] [employer] 4 09:59:26 Chronic back pain 610876578 Active 2023 Marly Kumar NP [address] [place] [address], [address] , [place] [employer] 5 09:19:42 Osteopor osis 82497609 Active 2023 Marly Kumar NP [address] [place] [address], [address] , [employer] 09:19:56 Hypokale caitlyn 99988080 Completed 202312/07/2024 Marly Kumar NP [address] [place] [address], [address] , [employer] 09:20:02 Urinary incontin ence 430200125 Active 2023 Marly Kumar NP [address] [place] [address], [address] , [employer] 09:19:58 Essentia l hyperten patricia 69035653 Active 2024 Marly Kumar NP [address] [place] [address], [address] , [employer] 09:19:43 Pain of left knee joint 71012433840 4107 Completed 202401/23/2025 Marly Kumar NP [address] [place] [address], [address] , [employer] 11:21:21 Restless legs 20172215 Active 2024 Marly Kumar NP [address] [place] [address], [address] , [employer] 11:21:23 Bilatera l lower limb edema 242159074 Completed 202401/23/2025 Marly Kumar NP [address] [place] [address], [address] , [employer] 11:21:15 Pain of bilatera l hands 23547789472 648230 Completed 202401/23/2025 Marly Kumar NP [address] [place] [address], [address] , [employer] 11:21:18 Candidia sis of skin 58869036 Completed 202402/17/2025 Marly Kumar NP [address] [place] [address], [address] , [employer] 5 14:39:28 Cough 84011644 Active 2024 Marly Kumar NP [address] [place] [address], [address] , [employer] 5 14:39:26 Macromas tia 753800169 Active 2024 Marly Kumar NP [address] [place] [address], [address] , [employer] 5 14:39:23 Mammogra phy abnormal 193980321 Active 2024 Marly Kumar NP [address] [place] [address], [address] , [employer] 5 09:14:58 Pneumoni a 156309497 Completed 202403/29/2025 Marly Kumar NP [address] [place] [address], [address] , [employer] 5 09:02:21 Acute cough Active 2024 Marly Kumar NP [address] [place] [address], [address] , [employer] 5 09:08:45 Acute exacerba tion of chronic obstruct mark pulmonar y disease 775514003 Active 2024 Marly Kumar NP [address] [place] [address], [address] , [employer] 5 09:11:50 Acute on chronic systolic heart failure 111329036 Completed 201611/25/2016 Not Available [facility] 2 21:36:04 Bronchop neumonia 281086852 Completed 201601/19/2017 Problem Code: J18.0; Problem Code Type: ICD-10; Not Available [facility] 2 21:36:04 Bronchop neumonia 524004921 Completed 201601/24/2017 Problem Code: J18.0; Problem Code Type: ICD-10; Not Available [facility] 21:36:04 Pain of left wrist 86009491327 9102 Completed 201604/25/2017 Problem Code: M25.532; Problem Code Type: ICD-10; Not Available [facility] 21:36:04 Localize d edema 136382979 Completed 201604/25/2017 Problem Code: R60.0; Problem Code Type: ICD-10; Not Available [facility] 21:36:05 Congesti ve heart failure 71407352 Completed 201611/25/2016 Problem Code: 428.0; Problem Code Type: ICD-9; Not Available [facility] 21:36:05 Pneumoco ccal pneumoni a 611628904 Completed 201601/19/2017 Problem Code: 481; Problem Code Type: ICD-9; Not Available [facility] 21:36:05 Pain of joint of wrist 336786218 Completed 201604/25/2017 Problem Code: 719.43; Problem Code Type: ICD-9; Not Available [facility] 21:36:05 Edema 215775972 Completed 201604/25/2017 Problem Code: 782.3; Problem Code Type: ICD-9; Not Available [facility] 21:36:05 Pneumoco ccal pneumoni a 799365719 Completed 201601/24/2017 Problem Code: 481; Problem Code Type: ICD-9; Not Available [facility] 21:36:05 Problem Notes None recorded. Procedures Surgical History Date Name Laterality Status Provider Name and Address Organization Details Recorded Time 11/02/19 23 Most Recent Mammogram completed Ruth Zhao [facility]/26/2023 13:21:36 10/29/20 16 cholecystectomy completed Not Available [facility] 07/08/2022 22:56:19 10/29/20 16 hernia repair completed Not Available [facility] 07/08/2022 22:56:20 10/29/20 16 hysterectomy completed Not Available [facility] 07/08/2022 22:56:21 lumpectomy of right breast completed ALBERTO [employer] 08/19/2023 14:52:33 Imaging Results None recorded. Procedure Notes None recorded. Medical Equipment None Reported. Allergies Allergen ID Allergen Name Allergen Category Reaction Reaction Severity Criticality Documentation Date Start Date Code Code System Note Provider Name and Address Organization Details Recorded Time 35998 Product containin g penicilli n (product) medicatio n Not available Not available Not available 07/08/2022 71897 8001 SNOMED ALBERTO [employer] 3 14:43:11 29515 Substance with sulfonami de structure and antibacte rial mechanism of action (substanc e) medicatio n Not available Not available Not available 07/08/2022 12752 8003 [facility] [employer] 14:43:16 35228 Fosamax medicatio n Not available Not available Not available 07/08/2022 11797 5 RxNorm Not Available [facility] 2 22:55:02 Medications Name Sig Start Date Stop Date Status Note LastModified by Organization Details LastModified Time quetiapine 25 mg tablet take ONE-HALF TABLET BY MOUTH every night FOR SLEEP 2024 active Not Available Not Available Not Avai lable furosemide 40 mg tablet Take 1 tablet by mouth 2 (Two) Times a Day. active Not Available Not Available No t Available atorvastat in 40 mg tablet TAKE ONE TABLET BY MOUTH AT BEDTIME 2024 active Not Available Not Available Not Avai lable carvedilol 6.25 mg tablet Take 1 tablet(s ) by mouth bid 08/19 completed Not Available Not Available Not Available doxycyclin e hyclate 100 mg capsule TAKE ONE CAPSULE BY MOUTH TWICE DAILY 02/17 completed Not Available Not Available Not Available ropinirole 1 mg tablet TAKE ONE TABLET BY MOUTH AT BEDTIME for restless legs 2024 active Not Available Not Available Not Avai lable donepezil 5 mg tablet TAKE ONE TABLET BY MOUTH AT BEDTIME 09/08 completed Not Available Not Available Not Available carbidopa ER 25 mg-levodop a 100 mg tablet,ext ended release TAKE ONE TABLET EVERY EVENING, INCREASE TO THREE TIMES daily as tolerate d 08/19 completed Not Available Not Available Not Available trazodone 50 mg tablet TAKE ONE TABLET BY MOUTH EVERY DAY 09/08 completed Not Available Not Available Not Available amitriptyl ine 150 mg tablet Take one tablet at bedtime 09/02 completed Not Available Not Available Not Available azithromyc in 250 mg tablet TAKE 2 TABLETS BY MOUTH ON DAY 1, THEN TAKE 1 TABLET DAILY ON DAYS 2-5 active Not Available Not Available No t Available ofloxacin 0.3 % eye drops active Not Available Not Available Not Available tizanidine 4 mg tablet take ONE-HALF TABLET BY MOUTH EVERY 6 HOURS NEEDED FOR pain active Not Available Not Available No t Available benzonatat e 200 mg capsule TAKE ONE CAPSULE BY MOUTH THREE TIMES DAILY NEEDED FOR cough active Not Available Not Available No t Available ondansetro n HCl 4 mg tablet TAKE ONE TABLET every SIX hours NEEDED 12/23 completed Not Available Not Available Not Available prednisone 20 mg tablet TAKE TWO TABLETS BY MOUTH EVERY DAY active Not Available Not Available No t Available midodrine 5 mg tablet 12/28 completed Not Available Not Available Not Available potassium chloride ER 10 mEq tablet,ext ended release TAKE ONE TABLET BY MOUTH TWICE DAILY active Not Available Not Available No t Available oxcarbazep ine 300 mg tablet Take 2 tablet(s ) by mouth bid 2015 active Not Available Not Available Not Avai lable divalproex 500 mg tablet,del ayed release TAKE ONE TABLET BY MOUTH TWICE DAILY DIRECTED active Not Available Not Available No t Available omeprazole 40 mg capsule,de layed release TAKE ONE CAPSULE BY MOUTH EVERY MORNING active Not Available Not Available No t Available aspirin 81 mg tablet,del ayed release Take 1 tablet every day by oral route in the morning. 2022 active Not Available Not Available Not Avai lable tramadol 50 mg tablet Take 2 tablets 3 times a day by oral route for 30 days. 09/08 completed Not Available Not Available Not Available carvedilol 3.125 mg tablet TAKE ONE TABLET BY MOUTH TWICE DAILY 06/23 completed Heart doctor took her off this medicat ion. Not Available Not Available Not Available ondansetro n 8 mg disintegra ting tablet Place 1 tablet every 8 hours by translin gual route as needed, for nausea. 2024 active Not Available Not Available Not Avai lable potassium chloride 20 mEq/15 mL oral liquid Take 7.5 mL every day by oral route. 09/26 completed Not Available Not Available Not Available levothyrox ine 75 mcg tablet Take 1 tablet every day by oral route for 30 days. 11/26 completed Not Available Not Available Not Available levothyrox ine 88 mcg tablet TAKE ONE TABLET BY MOUTH DAILY ON EMPTY stomach BEFORE BREAKFAS T active Not Available Not Available No t Available potassium chloride ER 20 mEq tablet,ext ended release(pa rt/cryst) Take 1 tablet 3 times a day by oral route as directed . 09/08 completed Not Available Not Available Not Available prednisolo ne acetate 1 % eye drops,susp ension 12/07 completed Not Available Not Available Not Available magnesium oxide 400 mg (241.3 mg magnesium) tablet TAKE ONE TABLET BY MOUTH EVERY DAY active Not Available Not Available No t Available potassium chloride 40 mEq/15 mL oral liquid TAKE 3.75 ML BY MOUTH EVERY DAY 09/26 completed Not Available Not Available Not Available cephalexin 500 mg capsule Take 1 capsule 4 times a day by oral route. 09/09 completed Not Available Not Available Not Available mirtazapin e 30 mg tablet TAKE ONE TABLET BY MOUTH AT BEDTIME active Not Available Not Available No t Available ropinirole 0.5 mg tablet TAKE ONE TABLET BY MOUTH EVERY DAY NEEDED for restless legs 02/17 completed Not Available Not Available Not Available nystatin 100,000 unit/gram topical cream Apply 2 applicat ions topicall y daily to affected areas as needed active Not Available Not Available No t Available prednisone 50 mg tablet TAKE ONE TABLET BY MOUTH EVERY DAY 02/17 completed Not Available Not Available Not Available divalproex ER 500 mg tablet,ext ended release 24 hr TAKE ONE TABLET IN THE MORNING AND ONE TABLET AT BEDTIME 08/19 completed Not Available Not Available Not Available promethazi ne 25 mg tablet Take 1 every 6 hours as needed for nausea/v omiting. 03/25 completed Not Available Not Available Not Available nitroglyce rin 0.4 mg sublingual tablet DISSOLVE ONE TABLET UNDER THE TONGUE as needed FOR ANGINA, MAY REPEAT every FIVE minutes FOR UP TO three doses active Not Available Not Available No t Available gabapentin 300 mg capsule 1 po TID 07/12 completed Not Available Not Available Not Available omeprazole 20 mg capsule,de layed release Take 1 capsule( s) by mouth daily 05/27 completed Not Available Not Available Not Available Sinemet 25 mg-100 mg tablet 1 po bid 08/19 completed Not Available Not Available Not Available hydroxyzin e HCl 25 mg tablet Take 1/2 to 1 tablet at night to assist with sleep. 09/08 completed Not Available Not Available Not Available midodrine 2.5 mg tablet Take 1 tablet twice a day by oral route as directed . active Not Available Not Available No t Available furosemide 20 mg tablet TAKE TWO TABLETS BY MOUTH EVERY MORNING & ONE TABLET EVERY AFTERNOO N DAILY 03/29 completed Not Available Not Available Not Available Levaquin 500 mg tablet Take 1 tablet(s ) by mouth daily for 7 days 11/25 completed Not Available Not Available Not Available mirtazapin e 15 mg tablet TAKE ONE TABLET AT BEDTIME 08/19 completed Not Available Not Available Not Available nystatin 100,000 unit/gram topical powder apply SMALL AMOUNT TWICE DAILY NEEDED active Not Available Not Available No t Available levofloxac in 750 mg tablet Take 1 tablet every day by oral route for 2 days. 02/23 completed Not Available Not Available Not Available methylpred nisolone 4 mg tablets in a dose pack take by mouth as directed on package for 6 days 12/28 completed Not Available Not Available Not Available lisinopril 2.5 mg tablet Take 1 tablet at bedtime 09/08 completed Not Available Not Available Not Available loratadine 10 mg tablet TAKE ONE TABLET BY MOUTH DAILY active Not Available Not Available No t Available Ventolin HFA 90 mcg/actuat ion aerosol inhaler INHALE TWO puffs BY MOUTH EVERY 4 HOURS NEEDED for shortnes s of air,whee zing active Not Available Not Available No t Available ketorolac 0.4 % eye drops 12/07 completed Not Available Not Available Not Available [facility] Levothyrox ine Sodium Once daily 11/25 completed Not Available Not Available Not Available Chest Congestion Relief DM 20 mg-400 mg tablet TAKE ONE TABLET BY MOUTH EVERY 6 HOURS NEEDED FOR COUGH active Not Available Not Available No t Available fenofibrat e nanocrysta llized 145 mg tablet TAKE ONE TABLET BY MOUTH AT BEDTIME 2024 active Not Available Not Available Not Avai lable calcium 600 mg (as carbonate) -vitamin D3 10 mcg (400 unit) tablet TAKE ONE TABLET BY MOUTH ONCE DAILY 2024 active Not Available Not Available Not Avai lable budesonide -formotero l HFA 160 mcg-4.5 mcg/actuat ion aerosol inhaler INHALE TWO puffs BY MOUTH TWICE DAILY active Not Available Not Available No t Available melatonin 5 mg tablet TAKE TWO TABLETS AT BEDTIME 11/12 completed Not Available Not Available Not Available melatonin 10 mg capsule Take 2 capsules every day by oral route at bedtime. 12/23 completed Not Available Not Available Not Available Entresto 24 mg-26 mg tablet 1 Tablet BY MOUTH TWICE A DAY for CONGESTI ON 09/08 completed Not Available Not Available Not Available bisoprolol fumarate 2.5 mg tablet TAKE ONE TABLET BY MOUTH EVERY DAY active Not Available Not Available No t Available Vitals Date Recorded Body height Body mass index (BMI) Body weight Body temperature Heart rate Oxygen saturation Oxygen saturation in Arterial blood by Pulse oximetry Systolic blood pressure Diastolic blood pressure Provider Name and Address Organization Details Last Updated DateTime 5 152.4 cm 34.4 kg/m2 90402.9 6 g 98.2 [degF] 83 /min 96 % 96 % 134 mm[Hg] 85 mm[Hg] Codie Shah [employer] 5 08:53:15 Social History Question Answer Notes LastModified by Organizat ion Details LastModified Time Tobacco Smoking Status Former Smoker ALBERTO [employer]org[employer], [employer]. 08/19/2023 14:46:52 Do You Have An Advance Directive? No leann Information n ot available 08/19/2023 Is Your Home Air Conditioned? Yes [email or web address] Information not available 08/19/2023 Are You Blind Or Do You Have Difficulty Seeing? Yes [email or web address] Information n ot available 12/23/2023 Are You A Caregiver? No [email or web address] Information not available 06/23/2024 In The 14 Days Before Symptom Onset, Have You Had Close Contact With A Laboratory-confirm ed COVID-19 While That Case Was Ill? No Information n ot available 05/26/2024 In The 14 Days Before Symptom Onset, Have You Had Close Contact With A Person Who Is Under Investigation For COVID-19 While That Person Was Ill? No Information not available 05/26/2024 Have You Been To An Area Known To Be High Risk For COVID-19? No [email or web address] Information not available 08/19/2023 Are You Deaf Or Do You Have Serious Difficulty Hearing? Yes [email or web address] Information not available 12/23/2023 What Type Of Diet Are You Following? REGULAR [email or web address] Information n ot available 08/19/2023 Have There Been Any Changes To Your Family Or Social Situation? No [email or web address] Information no t available 08/19/2023 When Did You Quit Smoking? 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 No [email or web address] Information not available 08/19/2023 What Was The Date Of Your Most Recent Tobacco Screening? 03/29/2025 [email or web address] Information not available 03/29/2025 What Is Your Current Pack Years? 10-19packyear s [email or web address] Information not available 08/19/2023 Do You Have Any Pets? Yes Information not available 08/19/2023 What Is Your Relationship Status? [email or web address] Information not available 08/19/2023 Do You Use Your Seat Belt Or Car Seat Routinely? Yes [email or web address] Information not available 08/19/2023 Are You Sexually Active? No [email or web address] Information not available 06/23/2024 Do You Have Smoke And Carbon Monoxide Detectors In Your Home? Yes [email or web address] Information not available 08/19/2023 At What Age Did You Start Smoking Tobacco? 14 [email or web address] Information not available 08/19/2023 Are You Passively Exposed To Smoke? Yes [email or web address] Information no t available 08/19/2023 Are There Any Smokers In Your House? Yes Information not available 08/19/2023 Do You Participate In Social Media? No [email or web address] Information not available 06/23/2024 Has Tobacco Cessation Counseling Been Provided? No [email or web address] Information not available 08/19/2023 How Many Years Have You Smoked Tobacco? 15 Information not available 08/19/2023 Have You Recently Traveled Abroad? No Information not available 08/19/2023 Do You Have Difficulty Walking Or Climbing Stairs? Yes [email or web address] Information not available 08/19/2023 Are You Currently In School? No [email or web address] Information not available 08/19/2023 Do You Have Any Dietary Restrictions? No [email or web address] Information not available 06/23/2024 Sex: Female Functional Status Question Answer Note LastModified by Organizat ion Details LastModified Time Do you use any illicit or recreational drugs? No [email or web address] Information not available 08/19/2023 Do you or have you ever used any other forms of tobacco or nicotine? No [email or web address] Information not available 08/19/2023 What is your level of alcohol consumption? None [email or web address] Information not available 08/19/2023 Are you currently employed? No [email or web address] Information not available 08/19/2023 Do you have transportation difficulties? Yes unable to drive herself [email or web address] Information not available 08/19/2023 Are you able to walk? YESWOREST [email or web address] Information not available 08/19/2023 Do you have difficulty doing errands alone? Yes [email or web address] Information not available 12/23/2023 Are you able to care for yourself? Yes [email or web address] Information n ot available 08/19/2023 Do you have difficulty dressing or bathing? Yes [email or web address] Information not available 12/23/2023 Mental Status Question Answer Note LastModified by Organizat ion Details LastModified Time Do you feel stressed (tense, restless, nervous, or anxious, or unable to sleep at night)? [id number] [email or web address] Information not available 06/23/2024 Do you have difficulty concentrating, remembering or making decisions? Yes [email or web address] Information no t available 12/23/2023 Family History Relationship Description Onset Age of this Age Resolved Age Notes LastModified by Organization Details LastModified Time Mother Family history of Hypertension [email or web address] Not available 08/19/2023 14:44:48 Mother Family history of congestive heart failure [email or web address] Not available 14:44:53 Mother Family history of Myocardial infarction [email or web address] Not available 14:44:57 Mother Diabetes mellitus [email or web address] Not available 14:45:07 Mother Parkinson's disease Not available 14:45:25 Medical History Condition Response Hospitalizations N Emergency room visit since last appointm ent. N Hypothyroidism Y High Cholesterol Y Hypertension Y Gynecological History Statement/Question Response Date of Last Pap Smear Most Recent Mammogram 11/02/2022 Obstetrics History GPAL:G 0 P 0 0 0 0 Immunizations Vaccine Type Date Status Note Provider Nam e and Address Organization Details Recorded Time Influenza, high-dose, trivalent, PF 4 completed Marly Kumar NP [address] [place] [address], [id number], [employer] 09/09/2024 11:00:39 RSV, recombinant, protein subunit RSVpreF, adjuvant reconstituted, 0.5 mL, PF 4 completed Marly Kumar NP [address] [place] [address], [phone], [employer] 09/09/2024 11:00:39 zoster recombinant 4 completed Marly Kumar NP [address] [place] [address], [phone], [employer] 09/26/2024 17:21:28 zoster recombinant 5 completed Marly Kumar NP [address] [place], [phone], [employer] 12/28/2024 12:12:07 COVID-19, mRNA, LNP-S, PF, 100 mcg/0.5mL dose or 50 mcg/0.25mL dose 1 completed ALBERTO mayorga, [employer] 08/19/2023 14:43:02 COVID-19, mRNA, LNP-S, PF, 30 mcg/0.3 mL dose 1 completed ALBERTO ROCK null, [employer] 08/19/2023 14:43:02 COVID-19, mRNA, LNP-S, PF, 30 mcg/0.3 mL dose 1 completed ALBERTO ROCK null, [employer] 08/19/2023 14:43:02 Influenza, split virus, trivalent, preservative 7 completed ALBERTO ROCK null, [employer] 08/19/2023 14:43:02 Influenza, split virus, trivalent, preservative 2 [facility], [employer] 08/19/2023 14:43:02 Influenza, split virus, trivalent, preservative 0 [facility], [place] [employer] 08/19/2023 14:43:02 Influenza, split virus, trivalent, PF 4 completed [facility] null, [employer] 08/19/2023 14:43:02 Influenza, split virus, quadrivalent, PF 2 completed [facility], [place] [employer] 08/19/2023 14:43:02 Pneumococcal conjugate PCV20, polysaccharide [id number] conjugate, adjuvant, PF 4 completed Abi Vazquez null, [place] [employer] 05/26/2024 11:20:59 Past Encounters Encounter ID Performer Location Encounter Start Date Encounter Closed Date Diagnosis/Indication Diagnosis SNOMED-CT Code Diagnosis ICD10 Code Diagnosis Note [id number] Marly Kumar NP [address] [address] 03/29/2025 08:34:18 03/29/2025 09:18:47 Hyperlipidemia 29802651 E78.5 Acute cough [id number] 24037356 R05.1 Acute exac erbation of chronic obstructive pulmonary disease 648763687 J44.1 Seizure disorder 4728288 02 G40.909 Mixed hyperlipidemia 267 962050 E78.2 Gastroesop hageal reflux disease without esophagitis 563109653 K21.9 Health Concerns Section Related Observation LastModified by Organization Detai ls LastModified Time None Recorded Concern Status LastModified by Organization Details LastModified Time None Recorded Payers Encounter Date Sequence Insurance Name Policy Number Policy Cordero Covered Member ID Cordero Member ID Guarantor Name 03/29/2025 1 [place] Eloy Perkins [id number] Eloy Perkins 03/29/2025 2 [place]-[facility] CHOICES - FFS/TRADITI ONAL [place] Perkins [id number] Eloy Perkins Notes Date Note Type Note Provider Name and Address Organization Details Recorded Time 03/29/2025 text/html Patient presents for follow up on multiple chronic illnesses.Cardiol ogy increased lasix to BID. She had BMP two weeks ago and potassium was normal (able to review in chart). Last fasting labs were 3 months ago and stable. She is following with cardiology regarding her pacemaker - abnormality? Sees them again next week. Cough x 1 week now. She also reports fever over the weekend. States fever has resolved now, but she still has cough. She states cough is not productive. She is more short of breath than normal. Can't sleep d/t cough. She did have pneumonia about two months ago now. She brings an empty bottle of a cough medication given to her in the ER asking for RF today. Rash has improved. No other concerns today. Marly Kumar, DUNG [address] [facility], [place], [address], [facility] [employer] 03/29/2025 09:38:54 OBGyn Episode No OBEpisode recorded.
--- OUTSIDE RECORDS SUMMARY | 2025-04-26 19:18 | XMS_ITS | Encounter Summary ---
Author Organization [facility] [employer] [facility] Address [address] [place] [address] Care Team Providers Care Cook Helper Name Role Phone Marly Kumar EMBEDDED FIRMWARE ENGINEER Primary Care Provider [phone] Encounter Details Date Type Department Care Team (Late st Contact Info) Description 07/28/2020 Transcribed Document [facility] [place] [address] [place] [address] ProviderMiya MD [address] [place], [place] [address] Social History Tobacco Use Types Packs/Day Years [...] EEG-video monitoring was performed using the 32-channel [employer] monitoring system. The seizure detection computer was [...] may be more prominent on the right. /[id number] Rad Duong MD TAF/AQ / TAF / MODL /[id number] documented in this encounter Plan of Treatment Not on file documented as of this encounter Visit Diagnoses Not on filedocumented in this encounter Care Teams Cook Helper Relationship Specialty Start Date End Date Marly Kumar, DUNG [address] [place] [address] PCP - General Nurse Practitioner 09/22/24 documented as of this encounter
--- OUTSIDE RECORDS SUMMARY | 2025-04-26 19:19 | XMS_ITS | Encounter Summary ---
Author Organization [facility] [employer] [facility] [employer] Address [address] [place] [address] Care Team Providers Care Engraver Optical Frames Name Role Phone Marly Kumar DUNG Primary Care Provider [phone] Encounter Details Date Type Department Care Team (Late st Contact Info) Description 07/26/2020 Transcribed Document [facility] [place] [address] [place] [address] ProviderMiya MD [address] [place], [place] [id number] Social History Tobacco Use Types Packs/Day Years [...] On: 07/26/2020 16:03 EDT by EDISON FONTANEZ, RN-Supervisor Tumbling And RollingFacilities Maintenance Worker Progress Note Discharge Arrangements : Patient Post-Acute [...] Attend Multidisciplinary Rounds? : No EDISON FONTANEZ, RN-Supervisor Tumbling [employer] - 07/26/2020 16:03 EDT Narrative Progress Note Narrative Progress Note : On continuous EEG monitoring. EDISON FONTANEZ, RN-Supervisor Tumbling And Rolling - 07/26/2020 16:03 EDT Electronically signed by Celestine [facility] Conversion Mortgage Specialist Cerner at 02/19/2023 6:34 PM CDT documented in this encounter Plan of Treatment Not on file documented as of this encounter Visit Diagnoses Not on filedocumented in this encounter Care Teams Engraver Optical Frames Relationship Specialty Start Date End Date Marly Kumar NP [address] [place] [address] PCP - General Nurse Practitioner 09/22/24 documented as of this encounter
--- OUTSIDE RECORDS SUMMARY | 2025-04-26 19:19 | XMS_ITS | Encounter Summary ---
Author Organization [employer] Address [address] [place] [address] Care Team Providers Care Software Applications Developer Name Role Phone Marly Kumar DUNG Primary Care Provider [phone] Encounter Details Date Type Department Care Team (Late st Contact Info) Description 07/26/2020 Transcribed Document [facility] [place] [address] [place] [address] ProviderMiya MD [address] [place], [place] [id number] Social History Tobacco Use Types Packs/Day Years [...] the upper and lower extremities. COORDINATION: Normal [id number]. IMPRESSION: Ms. Perkins has a long history [...] mg IV for repetitive or prolonged seizures. /[id number] MD RAPHAEL Esquivel/AQ / TAF / MODL Electronically signed by Celestine, [facility] Conversion Feed Mixer Cerner at 02/19/2023 6:42 PM CDT documented in this encounter Plan of Treatment Not on file documented as of this encounter Visit Diagnoses Not on filedocumented in this encounter Care Teams Software Applications Developer Relationship Specialty Start Date End Date Marly Kumar, DUNG [address] [place] [address] PCP - General Nurse Practitioner 09/22/24 documented as of this encounter
--- OUTSIDE RECORDS SUMMARY | 2025-04-26 19:19 | XMS_ITS | Clinical Summary ---
Author Organization [facility] Address [address] [place] [address] Care Team Providers Care Door To Door Selling Agent Name Role Phone Pcp, No Primary Care Provider Unavailabl e Jessie Payne MICROSOFT ARCHITECT Unavailable [phone] Allergies Active Allergy Reactions Criticality Noted Date [...] Admitted SGT 2 Tertiary exam 08/08 Immunizations Immunization Administration Dates Next Due Influenza, seasonal, injectable 10/30/2011 Tdap 08/07/2023 Social History Tobacco Use Types [...] drink first t zander in the morning (EYE-INTERNAL MEDICINE VETERINARY TECHNICIAN) to steady your nerves or to [...] 69 08/08/2023 2:50 PM EDT Temperature 36.9 C (98.5 F) 08/08/2023 2:50 PM EDT Respiratory Rate 17 08/08/2023 2:50 PM EDT [...] [facility]-Depression Screening 1953 [facility]-Hepatitis C Screening 1953 [facility]-/Child/Adol SDOH Screenings 1953 [facility]- SDOH Screenings 1971 [facility]-Adult SDOH Screenings 1971 CT Colonography 1998 Colonoscopy 1998 FIT-DNA 1998 FIT 1998 FOBT 1998 Sigmoidoscopy 1998 [facility]-Colorectal Cancer Screening 1998 [facility]-Breast Cancer Screening 2003 [facility]-Pneumococcal Vaccine: 50+ Years (1 of 1 - PCV) 2003 [facility]-Zoster Vaccines (1 of 2) 2003 VYY-TVAII-07 Vaccine ( season) 2024 09/09/2021, 12/05/2020, 11/15/2020 [facility]-Influenza Vaccine (Season Ended) 2025 08/18/2022, 08/11/2014, 07/21/2012, Additional history exists [facility]-RSV Vaccine: 60+ Years or (1 - 1-dose 75+ series) 2028 [facility]-DTaP,Tdap,and Td Vaccines (2 - Td or Tdap) 08/07/2033 08/07/2023 [facility]-Obesity Intervention Completed 08/14/2023 HPV Vaccines Aged Out No longer eligi ble based on patient's age to complete this topic [facility]-HIB Vaccines Aged Out No longer e [...] patient's age to complete this topic [place] [employer] MEDICAID OUT OF STATE Advance Directives * Full Code (Latest Code Status on File) Date Activated Date Inactivated Comments 08/07/2023 11:31 PM 08/08/2023 9:21 PM Question Answer Comments Patient has decision-making capacity? Yes Care Teams Door To Door Selling Agent Relationship Specialty Start Date End Date Pcp, Shea [address] [place] [address] PCP - General Family Medicine 08/07/23 Jessie Payne APRN [address] [place] [address] 08/07/23
--- OUTSIDE RECORDS SUMMARY | 2025-04-26 19:19 | XMS_ITS | Encounter Summary ---
Author Organization [facility] [employer] Address [address] [place] [address] Care Team Providers Care Therapeutic Sales Specialist Name Role Phone Marly Kumar PIPEFITTER Primary Care Provider [phone] Encounter Details Date Type Department Care Team (Late st Contact Info) Description 07/26/2020 Transcribed Document [facility] [place] [address] [place] [address] ProviderMiya MD [address] [place], [place] [address] Social History Tobacco Use Types Packs/Day Years Used Date Smoking Tobacco: Never Assessed Comments Unknown Sex and Gender Information Value Date Recorded Sex Assigned at Female 05/01/2022 3:59 PM CDT Legal Sex Female 1:54 PM CDT Gender Identity Female 05/01/2022 3:59 PM CDT Sexual Orientation Not on file documented as of this encounter Miscellaneous Notes * Cerner Conversion Note - Historical Provider, - 07/26/2020 4:24 PM CDT Admission History, [...] Services : Nursing, Occupational therapy, Physical Therapy, handicapper harness racing, Respiratory Therapy, Plaster Foreman Courtney Kearns RN - 07/26/2020 16:24 EDT General Info Arrived From : 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 operator 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 care facility Mode of Arrival on Unit : Wheelchair Patient Arrival Date/Time : 07/26/2020 12:00 EDT Legal Guardian : Care provider Legal Guardian : No Support Person/Patient Restaurant Kitchen Manager : No Support Person/Pt Rep Name : Marie Perkins [phone] Want Family/Rep/Phys Notified of Admit : No Emergency Contact #1 : Mckenna Mata Emergency Contact #1 Emergency Contact #1 Relationship : daughter Emergency Contact #2 : n/a Emergency Contact #2 Phone Number : n/a Emergency Contact #2 Relationship : n/a Information Obtained From : Medical Record Primary Language : [place] Preferred Communication Mode : Verbal Communication Barrier : None Animal Trainer Supervisor Needed : No Objects to Sharing Info [...] Level : 46 or > High Risk Jackson Fall Interventions : Adequate lighting, Bed in [...] Source : Stated Height Entry Format : Traphill Height, Feet : 4 ft(Converted to: 122 cm, 48 Inch) Height, Inches : 11 Inch(Converted to: 0 ft 11 Inch, 27.94 cm) Clinical Height : 149.86 cm Weight Source : Stated [place] Body Weight : 43 kg Courtney Kearns RN - 07/26/2020 16:24 EDT Estimated Weight Type of Weight Measurement Est : Traphill Weight, est lb : 245 lb(Converted to: [...] Assessment : Pt transferred from SNF, LTC, CUSTODIAL, or rehab hospital Active Surveillance Screen Positive [...] Courtney Kearns RN - 07/26/2020 16:24 EDT [place] Suicide Severity Rating Scale (C-SSRS) CSSRS Past [...] Courtney Kearns RN - 07/26/2020 16:24 EDT Electronically signed by Celestine [facility] Conversion Cad Intern Cerner at 02/19/2023 6:44 PM CDT documented in this encounter Plan of Treatment Not on file documented as of this encounter Visit Diagnoses Not on filedocumented in this encounter Care Teams Therapeutic Sales Specialist Relationship Specialty Start Date End Date Marly Kumar, DUNG [address] [place] [address] PCP - General Nurse Practitioner 09/22/24 documented as of this encounter
--- OUTSIDE RECORDS SUMMARY | 2025-04-26 19:19 | XMS_ITS | Encounter Summary ---
Author Organization [facility] Address [address] [place] [address] Care Team Providers Care Knapsack Sprayer Name Role Phone Marly Kumar NP Primary Care Provider [phone] Encounter Details Date Type Department Care Team (Late st Contact Info) Description 07/26/2020 Transcribed Document [facility] [place] [address] [place] [address] ProviderMiya MD [address] [place] [address] Social History Tobacco Use Types [...] On: 07/26/2020 11:36 EDT by Jerry Hewitt DIP UNIT OPERATOR LEAD Meds to Bed Enrollment Patient Enrollment Decision: : Yes/enroll in meds to bed program Jerry Hewitt PHARMACY TECH LEAD - 07/26/2020 14:08 EDT documented in this encounter Plan of Treatment Not on file documented as of this encounter Visit Diagnoses Not on filedocumented in this encounter Care Teams Knapsack Sprayer Relationship Specialty Start Date End Date Marly Kumar NP [address] [place] [address] PCP - General Nurse Practitioner 09/22/24 documented as of this encounter
--- OUTSIDE RECORDS SUMMARY | 2025-04-26 19:19 | XMS_ITS | Encounter Summary ---
Author Organization [facility] [employer] Address [address] [place] [address] Care Team Providers Care Detention Attendant Name Role Phone Marly Kumar GARNETTER Primary Care Provider [phone] Encounter Details Date Type Department Care Team (Late st Contact Info) Description 07/27/2020 Transcribed Document [facility] [place] [address] [place] [address] ProviderMiya MD [address] [place], [place] [address]661 Social History Tobacco Use Types Packs/Day Years [...] EEG-video monitoring was performed using the 32-channel [employer] monitoring system. The seizure detection computer was [...] noted suggestive of mild diffuse cerebral dysfunction. /[id number] MD RAPHAEL Esquivel/AQ / TAF / MODL /[id number] documented in this encounter Plan of Treatment Not on file documented as of this encounter Visit Diagnoses Not on filedocumented in this encounter Care Teams Detention Attendant Relationship Specialty Start Date End Date Marly Kumar, GARNETTER [address] [place] [address] PCP - General Nurse Practitioner 09/22/24 documented as of this encounter
--- OUTSIDE RECORDS SUMMARY | 2025-04-26 19:19 | XMS_ITS | Encounter Summary ---
Author Organization [facility] [employer] Address [address] [place] [address] Care Team Providers Care Revenue Analyst Name Role Phone Marly Kumar BEHAVIOR SUPPORT SPECIALIST Primary Care Provider [phone] Encounter Details Date Type Department Care Team (Late st Contact Info) Description 07/26/2020 Transcribed Document [facility] [place] [address] [place] [address] ProviderMiya MD [address] [place], [place] [address] Social History Tobacco Use Types Packs/Day Years [...] On: 07/26/2020 15:58 EDT by EDISON FONTANEZ, RN-Hat Finishing Materials Preparer Initial Assessment I Previously Documented Living Environment [...] : No Is Guardianship Needed : No HUSEYIN, EDISON G., RN-Hat Finishing Materials Preparer - 07/26/2020 15:58 EDT Initial Assessment II Sensory and Motor Deficits : Weakness Deficit Description : uses a wheelchair for mobility Current Home Treatments and Equipment : Wheelchair Services and Community Resources : Transportation assistance Services and Community Resources Addl Comments : [facility] phone [phone] fax [phone] [employer] [facility] phone [phone] / [phone] Does the Patient have a Floor to SNF Benefit? : No EDISON FONTANEZ, RN-Hat Finishing Materials Preparer - 07/26/2020 15:58 EDT Discharge Needs I Anticipated Discharge Date : 07/28/2020 EDT Anticipated Discharge To, CM : Extended Care Facility Current Home Treatment/Equipment : Current Home Treatment/Equipment No qualifying data available. Post Acute/Home Treatments : None Documentation Status Complete : Yes EDISON FONTANEZ, RN-Hat Finishing Materials Preparer - 07/26/2020 15:58 EDT Discharge Needs II Professional Skilled Services : Professional Skilled Services No qualifying data available. Needs Assistance with Transportation : Yes EDISON FONTANEZ, RN-Hat Finishing Materials Preparer - 07/26/2020 15:58 EDT Narrative Note Narrative Note : Pt from [facility] nursing [facility]. Called Em at [facility]. She stated that pt has a bedhold. She stated that pt travels using [facility] (the bus). She stated that pt can return to the facility when she is discharged. EDISON FONTANEZ, RN-Hat Finishing Materials Preparer - 07/26/2020 15:58 EDT documented in this encounter Plan of Treatment Not on file documented as of this encounter Visit Diagnoses Not on filedocumented in this encounter Care Teams Revenue Analyst Relationship Specialty Start Date End Date Marly Kumar, DUNG [address] [place] [address] PCP - General Nurse Practitioner 09/22/24 documented as of this encounter
--- OUTSIDE RECORDS SUMMARY | 2025-04-26 19:20 | XMS_ITS | Encounter Summary ---
Author Organization [facility] [employer] Address [address] [place] [address] Care Team Providers Care Line Haul Driver Name Role Phone Marly Kumar DIRECTOR ADVANCED Primary Care Provider [phone] Encounter Details Date Type Department Care Team (Late st Contact Info) Description 07/27/2020 Transcribed Document [facility] [place] [address] [place] [address] ProviderMiya MD [address] [place], [place] [address] Social History Tobacco Use Types Packs/Day Years Used Date Smoking Tobacco: Never Assessed Comments Unknown Sex and Gender Information Value Date Recorded Sex Assigned at Female 05/01/2022 3:59 PM CDT Legal Sex Female 1:54 PM CDT Gender Identity Female 05/01/2022 3:59 PM CDT Sexual Orientation Not on file documented as of this encounter Miscellaneous Notes * Cerner Conversion Note - Historical ProviderMD - 07/27/2020 12:35 PM CDT UM Authorization Entered On: 07/27/2020 12:35 EDT Performed On: 07/27/2020 12:35 EDT by DRISS DEL REAL RN Primary Insurance Authorization Authorization and Policy Numbers : Insurance 1 Health Plan: MEDICARE Policy Number: [id number] Authorization Number: Insurance 2 Health Plan: MEDICAID [facility] Policy Number: [id number] Authorization Number: Insurance Primary Name : MEDICARE Policy Number: [id number] Authorized Service Begin Date-Primary : 07/26/2020 EDT Historical Authorization Comments-Primary : No Authorization Comments Found DRISS DEL REAL RN - 07/27/2020 12:35 EDT Electronically signed by Klaus Sprague Conversion Hoop Driving Machine Operator Helper Cerner at 02/19/2023 6:32 PM CDT documented in this encounter Plan of Treatment Not on file documented as of this encounter Visit Diagnoses Not on filedocumented in this encounter Care Teams Line Haul Driver Relationship Specialty Start Date End Date Marly Kumar NP [address] [place] [address] PCP - General Nurse Practitioner 09/22/24 documented as of this encounter
--- OUTSIDE RECORDS SUMMARY | 2025-04-26 19:20 | XMS_ITS | Encounter Summary ---
Author Organization [facility] Address [address] [place] [id number] Care Team Providers Care Regional Service Manager Name Role Phone Marly Kumar DUNG Primary Care Provider [phone] Encounter Details Date Type Department Care Team (Late st Contact Info) Description 07/27/2020 Transcribed Document [facility] [place] Family Medicine [address] [place] [address] ProviderMiya MD [address] [place] [address] Social History Tobacco Use Types [...] On: 07/27/2020 14:25 EDT by EDISON FONTANEZ, RN-Band Lining BanderCustomer Sales Consultant Progress Note Discharge Arrangements : Patient Post-Acute [...] Attend Multidisciplinary Rounds? : No EDISON FONTANEZ, RN-Band Lining Bander - 07/27/2020 14:25 EDT Narrative Progress Note Narrative Progress Note : Continues on EEG monitoring. Updates faxed to Justin Perkins. Historical Progress Note : On continuous EEG monitoring. EDISON FONTANEZ, RN-Band Lining Bander - 07/26/20 16:04:13 EDISON FONTANEZ RN-Band Lining Bander - 07/27/2020 14:25 EDT documented in this encounter Plan of Treatment Not on file documented as of this encounter Visit Diagnoses Not on filedocumented in this encounter Care Teams Regional Service Manager Relationship Specialty Start Date End Date Marly Kumar, DUNG [address] [place] [address] PCP - General Nurse Practitioner 09/22/24 documented as of this encounter
--- NOTE | 2025-04-26 19:23 | PC.NURSE ---
Spoke with [facility], faxing a medical release form at this time.
--- NOTE | 2025-04-26 19:25 | CT_ITS ---
PROCEDURE INFORMATION: Exam: CT Head Without Contrast Exam date and time: 04/26/2025 8:12 PM Age: 69 years old Clinical indication: Other: Lethargy; Additional info: Lethargy and encephalopathy TECHNIQUE: Imaging protocol: Computed tomography of the head without contrast. Radiation optimization: All CT scans at this facility use at least one of these dose optimization techniques: automated exposure control; mA and/or kV adjustment per patient size (includes targeted exams where dose is matched to clinical indication); or iterative reconstruction. COMPARISON: CT HEAD/BRAIN WO CON 02/10/2025 9:45 AM FINDINGS: Brain: Mild chronic brain volume loss and chronic small vessel ischemic changes. Cerebral ventricles: No ventriculomegaly. Paranasal sinuses: Mild mucosal thickening in the paranasal sinuses. Right maxillary sinus retention cyst. Mastoid air cells: Visualized mastoid air cells are well aerated. Orbital cavities: Status post bilateral cataract surgery. Bones: Unremarkable. No acute fracture. Soft tissues: Unremarkable. IMPRESSION: No acute intracranial findings. If there is high clinical concern for acute infarction, consider MRI for further evaluation. ASSESSMENT: ASPECTS score ([place] Stroke Program Early CT Score) is 10.
--- NOTE | 2025-04-26 19:25 | CT_ITS ---
PROCEDURE INFORMATION: Exam: CT Abdomen And Pelvis With Contrast Exam date and time: 04/26/2025 8:16 PM Age: 69 years old Clinical indication: Other: Lethargy; Additional info: Lethargy, encephalopathy TECHNIQUE: Imaging protocol: Computed tomography of the abdomen and pelvis with contrast. 3D rendering (Not supervised by radiologist): MIP and/or 3D reconstructed images were created by the technologist. Radiation optimization: All CT scans at this facility use at least one of these dose optimization techniques: automated exposure control; mA and/or kV adjustment per patient size (includes targeted exams where dose is matched to clinical indication); or iterative reconstruction. Contrast material: ISOVUE; Contrast volume: 70 ml; Contrast route: IV; COMPARISON: CT ABDOMEN PELVIS W CON 08/07/2020 11:28 AM FINDINGS: Liver: Normal. No mass. Gallbladder and biliary ducts: Surgically absent gallbladder. No biliary ductal dilatation. Pancreas: Normal. No ductal dilation. Spleen: Normal. No splenomegaly. Adrenal glands: Normal. No mass. Kidneys and ureters: No nephroureterolithiasis. No hydronephrosis. Stomach and bowel: Scattered sigmoid colonic diverticula without pericolonic fat stranding. Nonobstructive pattern. Appendix: Not visualized. No pericecal fat stranding. Intraperitoneal space: Unremarkable. No free air. No significant fluid collection. Vasculature: Atherosclerotic calcification of aortoiliac arteries without aneurysm. Ostial atherosclerotic calcification of celiac, superior mesenteric arteries. High-grade ostial stenoses of celiac and superior mesenteric arteries. Lymph nodes: Unremarkable. No enlarged lymph nodes. Urinary bladder: Unremarkable as visualized. Reproductive: Unremarkable as visualized. Bones/joints: Unremarkable. No acute fracture. Soft tissues: Chronic anterior abdominal wall fat containing hernia. IMPRESSION: 1. No acute findings identified. 2. Chronic anterior abdominal wall fat herniation. 3. Colonic diverticulosis. 4. 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
--- NOTE | 2025-04-26 19:26 | CT_ITS ---
PROCEDURE INFORMATION: Exam: CTA Chest With Contrast Exam date and time: 04/26/2025 8:16 PM Age: 69 years old Clinical indication: Other: Lethargy; Additional info: Lethargy and encephalopathy TECHNIQUE: Imaging protocol: Computed tomographic angiography of the chest with contrast. Exam focused on the arteries. 3D rendering (Not supervised by radiologist): MIP and/or 3D reconstructed images were created by the technologist. Radiation optimization: All CT scans at this facility use at least one of these dose optimization techniques: automated exposure control; mA and/or kV adjustment per patient size (includes targeted exams where dose is matched to clinical indication); or iterative reconstruction. Contrast material: ISOVUE; Contrast volume: 70 ml; Contrast route: INTRAVENOUS (IV); COMPARISON: CT CHEST WO CON 06/07/2021 8:31 AM FINDINGS: Pulmonary arteries: No central or segmental pulmonary arterial intraluminal embolism identified. Aorta: Atherosclerotic calcification. No aortic aneurysm. No aortic dissection. Lungs: Lingular subsegmental atelectasis. No consolidation. No masses. Pleural spaces: Unremarkable. No pneumothorax. No pleural effusion. Heart: Unremarkable. No cardiomegaly. No pericardial effusion. Lymph nodes: Unremarkable. No enlarged lymph nodes. Bones/joints: Unremarkable. No acute fracture. Soft tissues: Unremarkable. IMPRESSION: No acute findings.
[2025-04-26 19:36] LABS: Lactate Venous 1.4 mmol/L (0.4-2.0); VBG Base Excess 3.8 mmol/L (-2.4-2.3); VBG Oxygen Saturation 82.1 % (50-70); VBG PCO2 42.2 mmol/L (35-51); VBG PH 7.44 mmol/L (7.31-7.41); VBG Total CO2 29.2 mmol/L (23-27)
[2025-04-26 19:38] LABS: Adenovirus,PCR Not Detected (NotDetected); Bordetella Pertussis Not Detected (NotDetected); Chlamydophila Pneumoniae, PCR Not Detected (NotDetected); Coronavirus 19, PCR Not Detected (NotDetected); Coronavirus 229E Not Detected (NotDetected); Coronavirus NL63 Not Detected (NotDetected); Coronavirus OC43 Not Detected (NotDetected); Coronovirus HKU1,PCR Not Detected (NotDetected); Human Metapneumovirus Not Detected (NotDetected); Influenza A, PCR Not Detected (NotDetected); Influenza AH1, 2009 Not Detected (NotDetected); Influenza AH1, PCR Not Detected (NotDetected); Influenza AH3,PCR Not Detected (NotDetected); Influenza B, PCR Not Detected (NotDetected); Mycoplasma Pneumoniae, PCR Not Detected (NotDetected); Parainfluenza 1, PCR Not Detected (NotDetected); Parainfluenza 2, PCR Not Detected (NotDetected); Parainfluenza 3, PCR Not Detected (NotDetected); Parainfluenza 4, PCR Not Detected (NotDetected); Respiratory Syncytial Virus Not Detected (NotDetected); Rhinovirus/Enterovirus Not Detected (NotDetected)
[2025-04-26] MEDS: 0.9 % SODIUM CHLORIDE 1000ML 1,000 ML 999 ML IV (19:49)
[2025-04-26 19:52] LABS: Alanine Aminotransferase 21 U/L (12-78); Albumin Level 4.2 g/dl (3.5-5.0); Albumin/Globulin Ratio 1.4 (1.1-1.8); Alkaline Phosphatase 54 U/L (38-126); Anion Gap 11.9 mEq/L (5-15); Aspartate Amino Transferase 37 U/L (14-36); Bilirubin,Total 0.6 mg/dl (0.2-1.3); Blood Urea Nitrogen 35 mg/dl (7-17); Carbon Dioxide 33 mmol/L (22.0-30.0); Chloride 98 mmol/L (98-107); Creatine Kinase 41 U/L (30-135); Creatinine Clearance Estimated 54 mL/min (50-200); Estimated Glomerular Filt Rate 44 ml/min (>60); GFR (African American) 54 ML/MIN (>60); Globulin 2.9 g/dL (1.3-3.2); Glucose 106 mg/dl (74-100); Lipase 90 U/L (23-300); Magnesium 1.7 mg/dl (1.6-2.3); Potassium 3.9 mmoL/L (3.5-5.1); Sodium 139 mmol/L (136-145); Total Protein,Serum 7.1 g/dl (6.3-8.2)
[2025-04-26 19:54] LABS: Prothrombin Time 12.1 seconds (10.1-12.5)
[2025-04-26 19:57] LABS: C-Reactive Protein 3.8 mg/L (0-4); Erythrocyte Sedimentation Rate 32 mm/hr (0-30)
[2025-04-26 19:58] LABS: Basophils % 0.8 % (0.1-2.0); Eosinophils # 0.2 Kmm3 (0.0-0.4); Eosinophils % 3.3 % (0.1-12.0); Hematocrit 38.2 % (37.0-47.0); Hemoglobin 12.1 g/dL (12.2-16.2); Immature Granulocytes # 0.02 10^3uL; Immature Granulocytes % 0.4 %; Lymphocytes # 2.2 K/mm3 (0.7-4.5); Mean Corpuscular HGB Conc 31.7 g/dL (31.8-35.4); Mean Corpuscular Volume 94.6 fl (81-99); Mean Platelet Volume 12.5 fl (7.4-10.4); Monocytes # 0.4 K/mm3 (0.1-1.0); Monocytes % 8.7 % (1.7-9.3); Neutrophils % 40.8 % (37.0-80.0); Nucleated Red Blood Cells # 0 10^3/uL; Nucleated Red Blood Cells % 0 %; Platelet Count 215 K/mm3 (142-424); Red Blood Count 4.04 M/mm3 (4.20-5.40); Red Cell Distribution Width 14.9 % (11.5-17.5); Red Cell Distribution Width-SD 51.1 fL; White Blood Count 4.8 K/mm3 (4.8-10.8)
[2025-04-26 20:00] LABS: Microscopic, Urine URINE MICROSCOPIC (MICROSCOPIC)
[2025-04-26 20:02] LABS: Activated Partial Thrombo Time 23.4 seconds (22.8-30.6)
[2025-04-26 20:04] LABS: NT Pro Brain Natriuretic Pep. 192 pg/mL (0-125)
[2025-04-26 20:06] LABS: Appearance,Urine CLEAR (Clear); Bilirubin,Urine Negative (Negative); Blood, Urine Negative (Negative); Color,Urine YELLOW (Yellow); Glucose,Urine (UA) Negative (Negative); Ketones,Urine Negative (Negative); Leukocyte Esterase,Urine Negative (Negative); Nitrate,Urine Negative (Negative); Protein,Urine Negative (Negative); Specific Gravity, Urine 1.015 (1.005-1.030); Urobilinogen,Urine 0.2 EU/dl (0.2)
[2025-04-26 20:08] LABS: Troponin I < 0.01 ng/ml (0.00-0.034)
[2025-04-26 20:09] LABS: Procalcitonin 0.054 ng/mL (0.0-2.0)
[2025-04-26 20:16] LABS: Ammonia 36 umol/L (9-30)
[2025-04-26] MEDS: IOPAMIDOL-370 (76%);100ML BOTTLE 70 ML IV (20:20)
[2025-04-26] MEDS: 0.9 % SODIUM CHLORIDE 50 ML VIAL IV (20:20)
[2025-04-26] MEDS: SODIUM CHLORIDE 0.9% 10ML SYR (RAD ONLY) 10 ML IV (20:20)
[2025-04-26 20:29] LABS: Free Thyroxine Index 2.7 ug/dL (5.93-13.13); T4 (Thyroxine) 8.5 ug/dl (5.53-11.0); Triiodothryronine (T3) Uptake 32 % (23.5-40.5)
[2025-04-26 20:40] LABS: Bacteria,Urine 2+ /lpf; Mucus,Urine 1+ /lpf
--- NOTE | 2025-04-26 20:41 | ECG_ITS ---
APPROVED REPORT Exam: Resting ECG HR:63 bpm ECG Measurements Heart Rate 63 AXES UT 152 P 57 QRSd 85 QRS 31 QT 406 T 24 QTc 414 Conclusion SINUS RHYTHM NORMAL ECG UNCONFIRMED REPORT Electronically signed by : RUFUS BULLARD, 04/27/2025 06:14:18
[2025-04-26 21:06] LABS: HIV Combo NEGATIVE (Negative)
[2025-04-26 21:13] LABS: Hepatitis C Ab Qual. W/ RFX NEGATIVE (Negative)
[2025-04-26] MEDS: CEFTRIAXONE 1 GM 1 GM in 0.9 % SODIUM CHLORIDE 50 ML IV (21:35)
--- NOTE | 2025-04-26 22:19 | PC.NURSE ---
Repeat troponin sent to lab
--- NOTE | 2025-04-26 22:21 | PC.NURSE ---
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
--- NOTE | 2025-04-26 22:38 | PC.NURSE ---
Report called to TIM Hull on the 2nd floor.
[2025-04-26 22:44] LABS: Troponin I < 0.01 ng/ml (0.00-0.034)
--- NOTE | 2025-04-26 22:52 | PC.NURSE ---
Patient arrived to floor via stretcher from ED at 22:48.
[2025-04-26] MEDS: 0.9 % SODIUM CHLORIDE 1000ML 1,000 ML 100 ML IV (22:59)
[2025-04-26] MEDS: HEPARIN SODIUM 5,000 UNIT/ML VIAL 5000 UNIT SUBCUT (22:59)
--- NOTE | 2025-04-26 23:54 | P.HP_ITS ---
<Statement entered by Anson Eubanks MD - 04/27/25 19:49> Rounded on patient after nurse practitioner. Personally examined and interviewed patient. Agree with exam findings and care plan as documented. History of Present Illness *Admission Date: 04/26/25 *Reason for visit:: Altered mental status *History of present illness: Ms. Perkins is a 69-year-old female presents to the ER for evaluation of altered mental status. Patient has a past medical history of seizure disorder, congestive heart failure, atrial fibrillation, dementia, hyperlipidemia, [place], and renal insufficiency. Patient states that she was admitted on the for seizure activity at [facility] and discharged the next day. She states when she was discharged she was still continuing to have nausea and vomiting. She states she was brought in today because the person that was with her thought that she was confused. She states that person reported she kept rolling her eyes in the back of her head. Patient does not remember being confused today she just remembers having persistent nausea and vomiting. She denies fever/chills, cough, congestion, runny nose, abdominal pain, diarrhea, constipation, headache, lightheadedness, dizziness, or syncope. [facility] Disclaimer: The information contained in this section may have been updated after the patient was seen, as this information can be updated by other users. Medical History Seizure History of pacemaker Arthritis Seizures Renal insufficiency Osteoporosis Heart attack Migraine Hyperlipemia Depression Dementia CHF (congestive heart failure) Afib Surgical History Hx of hysterectomy Hx of lumpectomy Hx of cholecystectomy Family History Other Diabetes Hyperlipidemia Hypertension Social History Smoking Status: Never smoker second hand exposure: No alcohol intake: never substance use type: other current occupational status: disabled Travel in the last 8 weeks?: None household members: other housing: pen[facility]entiary current occupational exposures/hazards: No caffeine: Yes Have you lived/traveled outside US in past 30 days?: No Contact w/someone who lives/traveled outside US past 30 days?: No Exposure to someone with infectious disease in past 14 days?: No Do you have a fever (greater than 100.4 F or 38 C)?: No Have you tested positive for COVID-19?: No Exposed to someone with COVID-19 in past 14 days?: No Do you have a sore throat?: No Do you have a cough?: No Do you have any weakness?: No Do you have any diarrhea?: No Are you experiencing any unusual bleeding?: No Do you have any muscle aches/pain?: No Do you have any abdominal pain?: No Are you experiencing loss of taste or smell?: No Other Medical History Have you received the Flu Vaccine for this season: Yes Have you received the Pneumonia Vaccine: Yes Review of Systems Constitutional Constitutional: Denies chills, Denies fever(s) and Denies headache(s) ENT Ears, Nose, Mouth, and Throat: Denies dizziness and Denies headache(s) *Cardiovascular Cardiovascular: Denies chest pain, Denies dyspnea and Reports leg edema *Respiratory Respiratory: Denies cough and Denies dyspnea *Gastrointestinal Gastrointestinal: Denies abdominal pain, Denies constipation, Denies diarrhea, Reports nausea and Reports vomiting *Genitourinary Genitourinary: Reports system reviewed and no additional complaints, except as documented *Musculoskeletal Musculoskeletal: Reports system reviewed and no additional complaints, except as documented *Neurologic Neurologic: Denies confusion, Denies dizziness, Denies headache(s) and Reports seizure-like activity Psychiatric Psychiatric: Denies confusion Meds Home Medications and Allergies Home Medications ?Medication ?Instructions ?Recorded ?Confirmed ?Type atorvastatin 40 mg tablet 40 mg PO DAILY Cholesterol 0 04/23/19 04/26/25 History omeprazole 40 mg capsule,delayed 40 mg PO DAILY GERD 0 04/23/19 04/26/25 History release aspirin 81 mg chewable tablet 81 mg PO DAILY CIRCULATI ON 04/24/19 04/26/25 History nitroglycerin 0.4 mg sublingual 0.4 mg sublingual 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 04/24/19 04/26/25 History tablet Pain ondansetron 8 mg disintegrating 8 mg PO Q8HP PRN Nause a 04/24/19 04/26/25 History tablet potassium chloride 20 mEq 20 meq PO BID POTASSIUM SUPP LEMENT 04/24/19 04/26/25 History tablet,extended release(part/cryst) acetaminophen 500 mg tablet 1,000 mg PO BIDP PRN pain 08/08/19 04/26/25 History budesonide-formoterol HFA 160 2 puff inhalation BID 04/26/25 History mcg-4.5 mcg/actuation aerosol inhaler divalproex 500 mg tablet,extended 500 mg PO BID SEIZUR ES 01/25/25 04/26/25 History release 24 hr fenofibrate nanocrystallized 145 145 mg PO ONCE 04/26/25 History mg tablet furosemide 20 mg tablet 40 mg PO BID 01/25/25 History levothyroxine 88 mcg capsule 88 mcg PO DAILY 01/25/25 04/26/25 History loratadine 10 mg tablet 10 mg PO DAILY 01/25/2504/03 History magnesium oxide 400 mg (241.3 mg 400 mg PO ONCE Supple ment 01/25/25 04/26/25 History magnesium) tablet midodrine 5 mg tablet 2.5 mg PO BID 01/25/2504/26 History mirtazapine 30 mg tablet 30 mg PO HS 01/25/25 5 History nystatin 100,000 unit/gram topical 1 applic topical DA MALLORY 01/25/25 04/26/25 History cream oxcarbazepine 600 mg tablet 300 mg PO BID SEIZURES 04/26/25 History quetiapine 25 mg tablet 25 mg PO HS 01/25/25 5 History ropinirole 0.5 mg tablet 0.5 mg PO HS 01/25/25 History tizanidine 4 mg tablet 4 mg PO DAILY PRN muscle spa sms 01/25/25 04/26/25 History bisoprolol fumarate 2.5 mg tablet 2.5 mg PO DAILY 04/0304/26/25 History New Prescriptions to Start Prescriptions: Allergies Allergy/AdvReac Type Severity Reaction Status Date / Time alendronate sodium (From Allergy Unknown I-HIVES Verified 01/25/25 08:52 FOSAMAX) Penicillins (PENICILLINS) Allergy Unknown I-HIVES Verified 01/25/25 08:52 Sulfa (Sulfonamide Allergy Unknown I-HIVES Verified 01/25/25 08:52 Antibiotics) (SULFA (SULFONAMIDE ANTIBIOTICS)) gabapentin Allergy Verified 01/25/25 08:52 Exam Data for Last 24 hours Vital signs and Labs for Last 24 Hours: Temp Pulse Resp BP Pulse Ox O2 Del Method 98.0 F 66 20 127/58 L 97 Room Air 04/26/25 22:46 04/26/25 22:46 04/26/25 22:46 04/26/25 22:46 04/26/25 22:00 04/26/25 22:46 Laboratory Results - last 24 hr 04/26/25 19:23: WBC 4.8, RBC 4.04 L, Hgb 12.1 L, Hct 38.2, MCV 94.6, MCH 30.0, MCHC 31.7 L, RDW 14.9, Plt Count 215, MPV 12.5 H, Neut % (Auto) 40.8, Lymph % (Auto) 46.0, [place] % (Auto) 8.7, Eos % (Auto) 3.3, Baso % (Auto) 0.8, Neut # (Auto) 2.0, Lymph # (Auto) 2.2, [place] # (Auto) 0.4, Eos # (Auto) 0.2, Baso # (Auto) 0.0, ESR 32 H, PT 12.1, INR 1.10, APTT 23.4, Sodium 139, Potassium 3.9, Chloride 98, Carbon Dioxide 33 H, Anion Gap 11.9, BUN 35 H, Creatinine 1.20 H, Estimated Creat Clear 54, Estimated GFR 44 L, Est GFR ( Amer) 54 L, Glucose 106 H, Calcium 10.0, Magnesium 1.7, Total Bilirubin 0.6, AST 37 H, ALT 21, Alkaline Phosphatase 54, Total Creatine Kinase 41, Troponin I < 0.01, C- Reactive Protein 3.8, NT-Pro-B Natriuret Pep 192 H, Total Protein 7.1, Albumin 4.2, Globulin 2.9, Albumin/Globulin Ratio 1.4, Lipase 90, Procalcitonin 0.054, TSH 3.10, Free T4 Index 2.7 L, Thyroxine (T4) 8.5, T3 Uptake 32, HCV Ab WEI w/Rflx PCR Qn Negative, HIV Ag/Ab Combo Qual Negative 04/26/25 19:27: VBG pH 7.44 H, VBG pCO2 42.2, VBG pO2 47.0 H, VBG HCO3 28.0, VBG Total CO2 29.2 H, VBG O2 Saturation 82.1 H, VBG Base Excess 3.8 H, VBG Lactic Acid 1.4 04/26/25 19:32: Chlamy pneumoniae PCR Not detected, Adenovirus (PCR) Not detected, B. pertussis DNA (PCR) Not detected, Coronavirus OC43 (PCR) Not detected, Coronavirus HKU1 (PCR) Not detected, Coronavirus 229E (PCR) Not detected, SARS-CoV-2 (PCR) Not detected, Coronavirus NL63 (PCR) Not detected, Human Metapneumovir PCR Not detected, Influenza A (H1) PCR Not detected, Influ A (H1N1/09) PCR Not detected, Influenza A (H3) PCR Not detected, Influenza Type A (PCR) Not detected, Influenza Type B (PCR) Not detected, M. pneumoniae (PCR) Not detected, Parainfluenza 1 (PCR) Not detected, Parainfluenza 2 (PCR) Not detected, Parainfluenza 3 (PCR) Not detected, Parainfluenza 4 (PCR) Not detected, RSV (PCR) Not detected, Entero/Rhino (PCR) Not detected 04/26/25 19:43: Ammonia 36 H 04/26/25 19:52: Urine Color Yellow, Urine Appearance Clear, Urine pH 8.0, Ur Specific [place] 1.015, Urine Protein Negative, Urine Glucose (UA) Negative, Urine Ketones Negative, Urine Blood Negative, Urine Nitrate Negative, Urine Bilirubin Negative, Urine Urobilinogen 0.2, Ur Leukocyte Esterase Negative, Urine RBC 5-10, Urine WBC 5-10, Ur Squamous Epith Cells 3-5, Urine Bacteria 2+, Urine Mucus 1+ 04/26/25 22:15: Troponin I < 0.01 I & O for Last 24 hours: Intake & Output 04/23/25 04/24/25 04/25/25 04/26/25 23:59 23:59 23:59 23:59 Weight 80.286 kg *Routine HEENT Exam Head: Present normocephalic and atraumatic Eye: Present EOMI and PERRL ENT: Present mucous membranes moist and oropharynx clear *Routine Neck Exam Neck: Present supple and full ROM *Routine Respiratory Exam Respiratory: Present CTA bilaterally, normal respiratory effort and symmetric chest movement; Absent accessory muscle use *Routine Cardiovascular Exam Cardiovascular: Present RRR, Normal S1 and Normal S2 *Routine Abdominal Exam Abdominal: Present soft and normoactive bowel sounds; Absent tenderness or distended *Routine Rectal Exam Rectal:: deferred *Routine Genitalia Exam Genitalia:: deferred *Routine Extremities Exam Extremities: Present edema (1+ pitting edema noted to bilateral lower extrem ities), pulses intact and normal capillary refill *Routine Skin Exam Skin: Present intact, dry and warm *Routine Neurological Exam Neurological: Present alert, oriented X3 (Oriented to self, place, and situation. Knows month and year) and CN II-XII intact Assessment and Plan *Assessment and plan (1) Encephalopathy: Status: Acute Qualifiers: Encephalopathy type: unspecified encephalopathy Qualified Code(s): G93.40 - Encephalopathy, unspecified Category: Medical Code(s): G93.40 - Encephalopathy, unspecified Plan: Treat for urinary tract infection Mildly elevated ammonia level, monitor Monitor for seizure activity (2) RON (acute kidney injury): Status: Acute Category: Medical Code(s): N17.9 - Acute kidney failure, unspecified Plan: NS at 100 mL an hour, monitor for fluid overload Monitor I's and O's Avoid nephrotoxic agents (3) Urinary tract infectious disease: Status: Acute Qualifiers: Hematuria presence: with hematuria Urinary tract infection type: site unspecified Qualified Code(s): N39.0 - Urinary tract infection, site not specified; R31.9 - Hematuria, unspecified Category: Medical Code(s): N39.0 - Urinary tract infection, site not specified Plan: Rocephin 1 g every 24 hours Monitor urine culture and adjust antibiotics as indicated (4) Hyperammonemia: Status: Acute Category: Medical Code(s): E72.20 - Disorder of urea cycle metabolism, unspecified Plan: Trend ammonia level Consider GI consult (5) Seizure: Problem Comment: Atypical seizures cannot exclude psychogenic etiology, PNES. Currently on valproic acid ER, oxcarbazepine. Seen in the past by neurology, details unknown. Status: Chronic Category: Medical Code(s): R56.9 - Unspecified convulsions Plan: Continue patient's home dose of valproic acid and oxcarbazepine (6) COPD (chronic obstructive pulmonary disease): Status: Chronic Category: Medical Code(s): J44.9 - Chronic obstructive pulmonary disease, unspecified Plan: Continue patient's home Symbicort inhaler
[2025-04-27] MEDS: MIDODRINE HCL 5 MG TABLET 2.5 MG PO ×3 (00:13→22:46)
[2025-04-27] MEDS: QUETIAPINE 25MG TABLET 25 MG PO (00:15)
[2025-04-27] MEDS: CEFTRIAXONE SODIUM 1 GM in 0.9 % SODIUM CHLORIDE 50 ML IV (00:41)
[2025-04-27 02:11] LABS: Troponin I < 0.01 ng/ml (0.00-0.034)
[2025-04-27 04:00] VITALS: BP 98/64; PULSE 60; RESP 16; TEMP 36.5; O2SAT 95; BMI 34.2
[2025-04-27 06:53] LABS: Basophils % 0.6 % (0.1-2.0); Eosinophils # 0.1 Kmm3 (0.0-0.4); Immature Granulocytes # 0.01 10^3uL; Immature Granulocytes % 0.2 %; Lymphocytes # 2.8 K/mm3 (0.7-4.5); Lymphocytes % 59.6 % (10-50); Mean Corpuscular HGB Conc 32.4 g/dL (31.8-35.4); Mean Corpuscular Hemoglobin 30.5 pg (27.0-31.2); Monocytes # 0.4 K/mm3 (0.1-1.0); Monocytes % 9.2 % (1.7-9.3); Neutrophils # 1.3 K/mm3 (1.8-7.8); Neutrophils % 27.4 % (37.0-80.0); Nucleated Red Blood Cells # 0 10^3/uL; Nucleated Red Blood Cells % 0 %; Platelet Count 177 K/mm3 (142-424); Red Blood Count 3.51 M/mm3 (4.20-5.40); Red Cell Distribution Width 14.9 % (11.5-17.5); Red Cell Distribution Width-SD 51.2 fL; White Blood Count 4.7 K/mm3 (4.8-10.8)
[2025-04-27 07:00] LABS: Ammonia 94 umol/L (9-30); Chloride 105 mmol/L (98-107); Potassium 3.8 mmoL/L (3.5-5.1); Sodium 140 mmol/L (136-145)
[2025-04-27 07:03] LABS: Anion Gap 9.8 mEq/L (5-15); Blood Urea Nitrogen 30 mg/dl (7-17); Carbon Dioxide 29 mmol/L (22.0-30.0); Creatinine Clearance Estimated 65 mL/min (50-200); Estimated Glomerular Filt Rate 62 ml/min (>60); GFR (African American) 75 ML/MIN (>60)
[2025-04-27 07:04] LABS: Calcium 8.3 mg/dl (8.4-10.2); Glucose 82 mg/dl (74-100)
[2025-04-27 07:43] LABS: Hemoglobin 10.7 g/dL (12.2-16.2)
[2025-04-27] MEDS: LEVOTHYROXINE 88MCG (0.088MG) TAB 88 MCG PO (08:01)
[2025-04-27] MEDS: 0.9 % SODIUM CHLORIDE 1000ML 1,000 ML 100 ML IV (08:01)
--- OUTSIDE RECORDS SUMMARY | 2025-04-27 08:21 | XMS_ITS | Clinical Summary ---
Author Organization [facility] Address [address] [place] [address] Care Team Providers Care Newspaper Publisher Name Role Phone Pcp, No Primary Care Provider Unavailabl e Jessie Payne BEHAVIORAL HEALTH TECH Unavailable Allergies Active Allergy Reactions Criticality Noted Date [...] drink first t zander in the morning ([employer]) to steady your nerves or to get [...] 2003 UKY-Zoster Vaccines (1 of 2) 2003 [id number] Vaccine ( season) 2024 09/09/2021, 12/05/2020, 11/15/2020 [...] patient's age to complete this topic Insurance [place] MEDICAID [employer] MEDICAID OUT OF STATE Advance Directives * Full Code (Latest Code Status on File) Date Activated Date Inactivated Comments 08/07/2023 11:31 PM 08/08/2023 9:21 PM Question Answer Comments Patient has decision-making capacity? Yes Care Teams Newspaper Publisher Relationship Specialty Start Date End Date Pcp, Shea [address] [place] [address] PCP - General Family Medicine 08/07/23 Jessie Payne APRN [address] [place] [id number] 08/07/23
--- OUTSIDE RECORDS SUMMARY | 2025-04-27 08:22 | XMS_ITS | Data Portability ---
Author Organization [employer] [facility] Address [address] [place] [address] Assessment Encounter Date Assessment Date Assessment LastModified by Organization Details LastModified Time 12/07/2024 12/07/2024 XR left knee. Medrol pack. Cannot take NSAIDs. May use tylenol PRN pain. Recommended soft knee support and application of ice regularly for a few days to a week. If XR normal and no improvement with treatment, will consider ortho versus PT. Patient does prefer ortho referral. Follow up as planned, sooner if needed. Not available 12/08/2024 17:34:23 12/28/2024 12/28/2024 1. Call cardiology to get sooner appointment given BLE swelling and weight gain. Patient is agreeable to call. 2. Labs per plan below. 3. Start ropinirole as prescribed for RLS symptoms at night. We discussed risks and the importance of taking her time changing positions when she starts this medication. 4. Immunization updated per plan below after patient was counseled. 5. She has new report of bilateral hand pain, we will check BRO and RF. Her right distal ring finger has mild deformity at the DIP joint without known injury per patient. 6. Follow up in 3 months to recheck, sooner if needed Not available 12/28/2024 12:16:29 01/23/2025 01/23/2025 1. Nystatin and zinc oxide topically for rash. 2. She has mild cough that is improving possibly from exposure to RSV, no evidence of bacterial infection. Benzonatate PRN. Follow up if worsening. 3. Mammogram ordered. 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 We will discuss further at follow up. 4. Follow up in 2 months as planned, sooner if needed Not available 01/23/2025 13:24:09 02/17/2025 02/17/2025 Medication for cough. Follow up chest xr ordered. Further plan with result if needed. Discussed signs/symptoms of worsening (fever, chills, increasing shortness of breath) that would warrant sooner follow up or ER visit. Follow up as planned, sooner if needed Not available 02/20/2025 18:48:50 03/29/2025 03/29/2025 COPD exacerbation today. Will treat [...] Not available Not available Not available Lab BRO (antinucl ear antibodie s) screen, serum 2024 025 [facility] [address] [place], [address], 12/29/2024 14:09:00 rf (rheumato id factor), serum 2024 025 [email or web address] [address] [place], [address], 12/29/2024 14:09:00 lipid panel, serum 2024 025 [email or web address] [address] [place], [address], 12/29/2024 14:08:58 CMP, serum or plasma 2024 025 [facility] ([facility]), [address] [place], [address], 12/29/2024 14:08:57 CBC w/ auto diff 2024 025 [place] ([facility]), [address] [place], [address], 12/29/2024 14:08:56 Hepatitis C IgG Ab, qual, serum 2024 025 [place] [facility] ([facility]), [address] [place], [address], 12/29/2024 14:08:59 Referral None recorded. Procedures None recorded. Surgeries None recorded. Imaging XR, chest, 2 view [address], [address] [place] [address], [phone], 03/29/2025 12:33:56 XR, chest, 2 view [address], [address] [place] [address], [address], 02/21/2025 10:02:34 MAMMO, screening , digital, bilateral - Patient has pacemaker /defibril lator 2024 025 [facility] Centralized Scheduling, [address] [place], [address], 02/13/2025 11:20:55 XR, knee, 3 view 2024 025 [facility], [address] [place] [address], [phone], 12/07/2024 14:38:30 Medication Orders Chest Congestio n Relief DM 20 mg-400 mg tablet 2024 025 [facility], [address] [place] [address], [address], 03/29/2025 09:49:03 benzonata te 200 mg capsule 2024 025 [facility], [address] [place] [address], [address], 03/29/2025 09:49:03 prednison e 20 mg tablet 2024 025 [facility], [address] [place] [address], [address], 03/29/2025 09:49:04 azithromy chasity 250 mg tablet 2024 025 [facility], [address] [place] [address], [address], 03/29/2025 09:49:03 benzonata te 200 mg capsule 2024 025 [facility], [address] [place] [address], [address], 02/17/2025 15:44:40 ropinirol e 1 mg tablet 2024 025 [facility], [address] [place] [address], [address], 01/24/2025 17:05:01 benzonata te 200 mg capsule 2024 025 [facility], [address] [place] [address], [address], 01/23/2025 11:52:53 nystatin 100,000 unit/gram topical cream 2024 025 [facility], [address] [place] [address], [address], 04/14/2025 11:01:38 ropinirol e 0.5 mg tablet 2024 025 [facility], [address] [place] [address], [address], 02/17/2025 14:51:34 Medrol (Donnell) 4 mg tablets in a dose pack 2024 025 [facility], [address] [place] [address], [id number], 12/28/2024 09:17:01 Patient TargetsNo targets recorded. Patient Instructions Encounter Date Encounter Id Patient Instructions Last Modified By Organization Details Last Modified Time 12/28/2024 [id number] insomnia: care instructions Not available 12/28/2024 09:03:18 chronic obstructive pulmonary disease (COPD): care instructions Not available 12/28/2024 09:03:18 learning about copd and how to prevent lung infections Not available 12/28/2024 09:03:18 high cholesterol : care instructions Not available 12/28/2024 09:03:18 restless legs syndrome: care instructions Not available 12/28/2024 09:03:18 high blood pressure: care instructions Not available 12/28/2024 09:03:18 learning about high blood pressure Not available 12/28/2024 09:03:18 01/23/2025 [id number] learning about breast cancer screening Not available 01/23/2025 11:31:51 cough: care instructions Not available 01/23/2025 11:28:16 02/17/2025 [id number] pneumonia: care instructions Not available 02/17/2025 15:05:34 Reason for Referral None Reported. Results Created Date Observation Date Name Description Value Unit Range Abnormal Flag Note LastModifiedBy Organization Detail LastModifiedTime 12/28/1912/29/2024 CBC WITH DIFFE RENTI AL/PL ATELE T WBC 4.5 x10e3 /uL 3.4-10 .8 normal Not Available [facility] ([facility]) [address] [facility], [place], [address], 12/29/2024 14:08:56 12/28/19 25 12/29/2024 CBC WITH DIFFE RENTI AL/PL ATELE T RBC 3.97 x10e6 /uL 3.77-5 .28 normal Not Available [facility] ([facility]) [address] [place], [address], 12/29/2024 14:08:56 12/28/19 25 12/29/2024 CBC WITH DIFFE RENTI AL/PL ATELE T hemoglobin 12.5 g/dL 11.1-1 5.9 normal Not Available [facility] ([facility]) [address] [place], [address], 12/29/2024 14:08:56 12/28/19 25 12/29/2024 CBC WITH DIFFE RENTI AL/PL ATELE T hematocrit 38.1 % 34.0-4 6.6 normal Not Available [facility] ([facility]) [address] [place], [address], 12/29/2024 14:08:56 12/28/19 25 12/29/2024 CBC WITH DIFFE RENTI AL/PL ATELE T MCV 96 fL 79-97 normal Not Available [facility] ([facility]) [address] [place], [address], 12/29/2024 14:08:56 12/28/19 25 12/29/2024 CBC WITH DIFFE RENTI AL/PL ATELE T MCH 31.5 pg 26.6-3 3.0 normal Not Available [facility] ([facility]) [address] [place], [address], 12/29/2024 14:08:56 12/28/19 25 12/29/2024 CBC WITH DIFFE RENTI AL/PL ATELE T MCHC 32.8 g/dL 31.5-3 5.7 normal Not Available [facility] ([facility]) [address] [place], [address], 12/29/2024 14:08:56 12/28/19 25 12/29/2024 CBC WITH DIFFE RENTI AL/PL ATELE T RDW 13.3 % 11.7-1 5.4 Not Available [facility] ([facility]) [address] [facility], [place], [address], 12/29/2024 14:08:56 12/28/19 25 12/29/2024 CBC WITH DIFFE RENTI AL/PL ATELE T platelets 174 x10e3 /uL 150-45 0 normal Not Available [facility] ([facility]) [address] [facility], [place], [address], 12/29/2024 14:08:56 12/28/19 25 12/29/2024 CBC WITH DIFFE RENTI AL/PL ATELE T neutrophils 42 % not estab. normal Not Available [facility] ([facility]) [address] [facility], [place], [address], 12/29/2024 14:08:56 12/28/19 25 12/29/2024 CBC WITH DIFFE RENTI AL/PL ATELE T lymphs 45 % not estab. normal Not Available [facility] ([facility]) [address] [facility], [place], [address], 12/29/2024 14:08:56 12/28/19 25 12/29/2024 CBC WITH DIFFE RENTI AL/PL ATELE T monocytes 7 % not estab. normal Not Available [facility] ([facility]) [address] [facility], [place], [address], 12/29/2024 14:08:56 12/28/19 25 12/29/2024 CBC WITH DIFFE RENTI AL/PL ATELE T eos 5 % not estab. normal Not Available [facility] ([facility]) [address] [facility], [place], [address], 12/29/2024 14:08:56 12/28/19 25 12/29/2024 CBC WITH DIFFE RENTI AL/PL ATELE T basos 1 % not estab. normal Not Available [facility] ([facility]) [address] [place], [address], 12/29/2024 14:08:56 12/28/19 25 12/29/2024 CBC WITH DIFFE RENTI AL/PL ATELE T immature cells CUSHION GUM APPLICATOR Not Available [facility] ([facility]) [address] [facility], [place], [address], 12/29/2024 14:08:56 12/28/19 25 12/29/2024 CBC WITH DIFFE RENTI AL/PL ATELE T neutrophils (absolute) 1.9 x10e3 /uL 1.4-7. 0 normal Not Available [facility] ([facility]) [address] [place], [address], 12/29/2024 14:08:56 12/28/19 25 12/29/2024 CBC WITH DIFFE RENTI AL/PL ATELE T lymphs (absolute) 2.1 x10e3 /uL 0.7-3. 1 normal Not Available [facility] ([facility]) [address] [place], [address], 12/29/2024 14:08:56 12/28/19 25 12/29/2024 CBC WITH DIFFE RENTI AL/PL ATELE T monocytes(ab solute) 0.3 x10e3 /uL 0.1-0. 9 normal Not Available [facility] ([facility]) [address] [place], [address], 12/29/2024 14:08:56 12/28/19 25 12/29/2024 CBC WITH DIFFE RENTI AL/PL ATELE T eos (absolute) 0.2 x10e3 /uL 0.0-0. 4 normal Not Available [facility] ([facility]) [address] [place], [address], 12/29/2024 14:08:56 12/28/19 25 12/29/2024 CBC WITH DIFFE RENTI AL/PL ATELE T baso (absolute) 0.0 x10e3 /uL 0.0-0. 2 normal Not Available [facility] ([facility]) [address] [facility], [place], [address], 12/29/2024 14:08:56 12/28/19 25 12/29/2024 CBC WITH DIFFE RENTI AL/PL ATELE T immature granulocytes 0 % not estab. Not Available [facility] ([facility]) [address] [facility], [place], [address], 12/29/2024 14:08:56 12/28/19 25 12/29/2024 CBC WITH DIFFE RENTI AL/PL ATELE T immature grans (abs) 0.0 x10e3 /uL 0.0-0. 1 Not Available [facility] ([facility]) [address] [facility], [place], [address], 12/29/2024 14:08:56 12/28/19 25 12/29/2024 CBC WITH DIFFE RENTI AL/PL ATELE T NRBC CUSHION GUM APPLICATOR Not Available [facility] ([facility]) [address] [facility], [place], [address], 12/29/2024 14:08:56 12/28/19 25 12/29/2024 CBC WITH DIFFE RENTI AL/PL ATELE T hematology comments: CUSHION GUM APPLICATOR Not Available [facility] ([facility]) [address] [place], [address], 12/29/2024 14:08:56 12/28/19 25 12/29/2024 COMP. METAB OLIC PANEL (14) glucose 89 mg/dL 70-99 normal Not Available [facility] ([facility]) [address] [place], [address], 12/29/2024 14:08:57 12/28/19 25 12/29/2024 COMP. METAB OLIC PANEL (14) BUN 22 mg/dL 8-27 normal Not Available [facility] ([facility]) [address] [place], [address], 12/29/2024 14:08:57 12/28/19 25 12/29/2024 COMP. METAB OLIC PANEL (14) creatinine 0.90 mg/dL 0.57-1 .00 normal Not Available [facility] ([facility]) [address] [facility] [place], [address], 12/29/2024 14:08:57 12/28/19 25 12/29/2024 COMP. METAB OLIC PANEL (14) eGFR 68 mL/mi n/1.7 3 >59 normal Not Available [facility] ([facility]) [address] [facility] [place], [address], 12/29/2024 14:08:57 12/28/19 25 12/29/2024 COMP. METAB OLIC PANEL (14) BUN/creatini ne ratio 24 12-28 normal Not Available [facility] ([facility]) [address] [facility] [place], [address], 12/29/2024 14:08:57 12/28/19 25 12/29/2024 COMP. METAB OLIC PANEL (14) sodium 143 mmol/ L 134-14 4 normal Not Available [facility] ([facility]) [address] [facility] [place], [address], 12/29/2024 14:08:57 12/28/19 25 12/29/2024 COMP. METAB OLIC PANEL (14) potassium 4.2 mmol/ L 3.5-5. 2 normal Not Available [facility] ([facility]) [address] [facility] [place], [address], 12/29/2024 14:08:57 12/28/19 25 12/29/2024 COMP. METAB OLIC PANEL (14) chloride 105 mmol/ L 96-106 normal Not Available [facility] ([facility]) [address] [facility] [place] [place], [address], 12/29/2024 14:08:57 12/28/19 25 12/29/2024 COMP. METAB OLIC PANEL (14) carbon dioxide, total 22 mmol/ L 20-29 normal Not Available [facility] ([facility]) [address] [place], [address], 12/29/2024 14:08:57 12/28/19 25 12/29/2024 COMP. METAB OLIC PANEL (14) calcium 10.0 mg/dL 8.7-10 .3 normal Not Available [facility] ([facility]) [address] [place], [address], 12/29/2024 14:08:57 12/28/19 25 12/29/2024 COMP. METAB OLIC PANEL (14) protein, total 7.7 g/dL 6.0-8. 5 normal Not Available [facility] ([facility]) [address] [facility] [place], [address], 12/29/2024 14:08:57 12/28/19 25 12/29/2024 COMP. METAB OLIC PANEL (14) albumin 4.5 g/dL 3.8-4. 8 normal Not Available [facility] ([facility]) [address] [facility] [place] [place], [address], 12/29/2024 14:08:57 12/28/19 25 12/29/2024 COMP. METAB OLIC PANEL (14) globulin, total 3.2 g/dL 1.5-4. 5 Not Available [facility] ([facility]) [address] [facility] [place] [place], [address], 12/29/2024 14:08:57 12/28/19 25 12/29/2024 COMP. METAB OLIC PANEL (14) bilirubin, total 0.4 mg/dL 0.0-1. 2 normal Not Available [facility] ([facility]) [address] [facility] [place], [address], 12/29/2024 14:08:57 12/28/19 25 12/29/2024 COMP. METAB OLIC PANEL (14) alkaline phosphatase 76 IU/L 44-121 normal Not Available [facility]) [address] [place], [address], 12/29/2024 14:08:57 12/28/19 25 12/29/2024 COMP. METAB OLIC PANEL (14) AST (SGOT) 32 IU/L 0-40 normal Not Available [facility] ([facility]) [address] [place], [address], 12/29/2024 14:08:57 12/28/19 25 12/29/2024 COMP. METAB OLIC PANEL (14) ALT (SGPT) 18 IU/L 0-32 normal Not Available [facility] ([facility]) [address] [place], [address], 12/29/2024 14:08:57 12/28/19 25 12/29/2024 LIPID PANEL cholesterol, total 147 mg/dL 100-19 9 normal Not Available [facility] ([facility]) [address] [place], [address], 12/29/2024 14:08:58 12/28/19 25 12/29/2024 LIPID PANEL triglyceride s 166 mg/dL 0-149 above high normal Not Available [facility] ([facility]) [address] [place], [address], 12/29/2024 14:08:58 12/28/19 25 12/29/2024 LIPID PANEL HDL cholesterol 54 mg/dL >39 normal Not Available [facility] ([facility]) [address] [place], [address], 12/29/2024 14:08:58 12/28/19 25 12/29/2024 LIPID PANEL VLDL cholesterol kayla 28 mg/dL 5-40 Not Available [facility] ([facility]) [address] [place], [address], 12/29/2024 14:08:58 12/28/19 25 12/29/2024 LIPID PANEL LDL chol calc ([facility]) 65 mg/dL 0-99 Not Available [facility] ([facility]) [address] [facility], [place], [address], 12/29/2024 14:08:58 12/28/19 25 12/29/2024 LIPID PANEL LDL calc comment: CUSHION GUM APPLICATOR Not Available [facility] ([facility]) [address] [facility], [place], [address], 12/29/2024 14:08:58 12/28/19 25 12/29/2024 HCV ANTIB ANNIKA CASCA DE(PC R/GEN O) HCV Ab Non Reacti ve non reacti ve Not Available [facility] ([facility]) [address] [facility], [place], [address], 12/29/2024 14:08:59 12/28/19 25 12/29/2024 HCV ANTIB ANNIKA CASCA DE(PC R/GEN O) interpretati on: Commen t Not infec suleman with HCV unles s early or acute infec tion is suspe cted (whic h may be delay ed in an immun ocomp romis ed indiv idual ), or other evide nce exist s to indic ate HCV infec tion. Not Available [facility] ([facility]) [address] [facility], [place], [address], 12/29/2024 14:08:59 12/28/19 25 12/29/2024 RHEUM ATOID FACTO R (RF) rheumatoid factor (rf) 11.6 IU/mL <14.0 normal Not Available [facility] ([facility]) [address] [facility], [place], [address], 12/29/2024 14:09:00 12/28/19 25 12/29/2024 ANTIN UCLEA R AB MULTI PLEX RFX 9 BRO direct Negati ve negati ve Not Available [facility] ([facility]) [address], [place], [address], 12/29/2024 14:09:00 12/07/19 25 XR, knee, 3 view No observ ation record ed. [email or web address], [address], 12/07/2024 16:32:24 02/01/20 25 01/31/2025 XR, chest , 2 view No observ ation record ed. [address] (Radiology) [address] , [place], [address], 02/01/2025 17:50:42 02/11/20 25 02/10/2025 CT, head + brain , w/o contr ast No observ ation record ed. [address], [place], [address], 02/13/2025 10:03:35 02/14/20 25 02/09/2025 MAMMO , scree porter, digit al, bilat eral No observ ation record ed. [email or web address] [facility] ([facility]) [address] , [place], [address], 02/15/2025 09:15:01 02/16/20 25 02/09/2025 MAMMO , scree porter, digit al, bilat eral No observ ation record ed. [address] ([facility]) [address] , [place], [address], 02/15/2025 13:13:46 02/18/20 25 XR, chest , 2 view No observ ation record ed. [address], [place], [address], 02/20/2025 10:15:33 02/22/20 25 02/21/2025 CT, angio gram, chest , w/o contr ast No observ ation record ed. [facility] ([facility]) [address] , [place], [address], 02/22/2025 10:55:40 03/14/20 25 03/14/2025 MAMMO , diagn ostic , digit al, unila teral No observ ation record ed. [email or web address] [facility] Centralized Scheduling [address] , [place], [address], 03/15/2025 10:21:18 03/29/20 XR, chest , 2 view No observ ation record ed. [email or web address] [address], [place], [address], 03/29/2025 15:02:44 04/25/20 25 04/25/2025 XR, chest No observ ation record ed. [email or web address] [facility] ([facility]) [address] , [place], [address], 04/26/2025 09:15:25 04/26/20 25 04/25/2025 US, liver No observ ation record ed. [email or web address] [facility] (Radiology) [address] , [place], [address], 04/26/2025 08:46:22 04/26/20 25 04/26/2025 imagi ng/di agnos tic resul t No observ ation record ed. [facility] [address], [place], [address], 04/26/2025 21:34:02 04/26/20 25 04/26/2025 imagi ng/di agnos tic resul t No observ ation record ed. [facility] [address], [place], [address], 04/26/2025 22:01:09 04/26/20 25 04/26/2025 imagi ng/di agnos tic resul t No observ ation record ed. [facility] [address], [place], [place], [address], 04/26/2025 22:05:27 04/27/2004/26/2025 imagi ng/di agnos tic resul t No observ ation record ed. [facility] [address], [place], [place], [address], 04/27/2025 06:16:45 Result Notes None recorded. Problems Name Problem SNOMED Code Status Onset Date Resolution Date Notes Provider Name and Address Organization Details Recorded Time Hyperten sive disorder 02276597 Active 2022 FREDDY GARCIA [address], [address] [place] [address] , [employer] 14:59:06 Hyperlip idemia 24106204 Completed 202203/29/2025 Marly Kumar NP [address] [place] [address], [address] [place] [address] , [employer] 5 09:38:16 Chronic obstruct mark pulmonar y disease 72388748 Active 2022 FREDDY GARCIA [address], [address] [place] [address] , [employer] 14:59:59 Hypothyr oidism 52450665 Active 2022 FREDDY GARCIA [address], [address] [place] [address] , [employer] 15:01:45 Monitori ng of pacemake r 31086797 Active [address] [facility] [address], [address] [place] [address] , [employer] 3 15:22:52 Seizure disorder 139748860 Active 2022 Marly Kumar NP [address] [place] [address], [address] [place] [address] , [employer] 18:02:53 Memory impairme nt 725178062 Active 2022 Marly Kumar NP [address] [place] [address], [address] , [employer] 18:02:44 Seasonal allergy 222044310 Active 2022 Marly Kumar NP [address] [place] [address], [address] , [employer] 18:02:51 Nausea 760224270 Completed 202205/26/2024 Marly Kumar NP [address] [place] [address], [address] , [employer] 18:02:48 Mixed hyperlip idemia 865106886 Active 2022 Marly uKmar NP [address] [place] [address], [address] , [employer] 18:02:46 Anxiety disorder 273985499 Completed 202205/26/2024 Marly Kumar NP [address] [place] [address], [address] , [employer] 12:06:47 Insomnia 916148708 Active 2022 Marly Kumar NP [address] [place] [address], [address] , [employer] 18:02:40 Hypomagn esemia 997419891 Completed 202205/26/2024 Marly Kumar NP [address] [place] [address], [address] , [place] [employer] 18:02:38 Gastroes ophageal reflux disease without esophagi tis 661220017 Active 2022 Marly Kumar NP [address] [place] [address], [address] , [employer] 18:02:34 Hypokale caitlyn 90160672 Completed 202205/26/2024 Marly Kumar NP [address] [place] [address], [address] , [place] [employer] 5 09:20:02 Candidia sis of skin 95599340 Completed 202205/26/2024 Marly Kumar NP [address] [place] [address], [address] , [place] [employer] 5 14:39:29 Wound of skin 340523322 Active 2022 Marly Kumar NP [address] [place] [address], [address] , [place] [employer] 4 18:02:55 Localize d swelling of head 28044255098 839454 Completed 202305/26/2024 Marly Kumar NP [address] [place] [address], [address] , [employer] 4 18:02:42 Chronic low back pain 765108434 Active 2023 Marly Kumar NP [address] [place] [address], [address] , [place] [employer] 4 18:02:29 Abnormal gait due to muscle weakness 504942781 Completed 202305/26/2024 Marly Kumar NP [address] [place] [address], [address] , [place] [employer] 4 12:06:44 Diarrhea 05838706 Completed 202305/26/2024 Marly Kumar NP [address] [place] [address], [address] , [place] [employer] 4 18:02:32 Numbness of hand 618289370 Completed 202309/08/2024 Marly Kumar NP [address] [place] [address], [address] , [place] [employer] 4 09:59:28 Peripher al demyelin ating neuropat hy 04897894 Active 2023 Marly Kumar NP [address] [place] [address], [address] , [employer] 4 09:59:26 Chronic back pain 008328828 Active 2023 Marly Kumar NP [address] [place] [address], [address] , [place] [employer] 5 09:19:42 Osteopor osis 97653737 Active 2023 Marly Kumar NP [address] [place] [address], [address] , [employer] 5 09:19:56 Hypokale caitlyn 49807481 Completed 202312/07/2024 Marly Kumar NP [address] [place] [address], [address] , [place] [employer] 5 09:20:02 Urinary incontin ence 811725293 Active 2023 Marly Kumar NP [address] [place] [address], [address] , [employer] 5 09:19:58 Essentia l hyperten patricia 75287927 Active 2024 Marly Kumar NP [address] [place] [address], [address] , [place] [employer] 5 09:19:43 Pain of left knee joint 79413604098 4107 Completed 202401/23/2025 Marly Kumar NP [address] [place] [address], [address] , [employer] 5 11:21:21 Restless legs 17978072 Active 2024 Marly Kumar NP [address] [place] [address], [address] , [employer] 5 11:21:23 Bilatera l lower limb edema 496654672 Completed 202401/23/2025 Marly Kumar NP [address] [place] [address], [address] , [place] [employer] 5 11:21:15 Pain of bilatera l hands 40333557221 955171 Completed 202401/23/2025 Marly Kumar NP [address] [place] [address], [address] , [place] [employer] 5 11:21:18 Candidia sis of skin 41396814 Completed 202402/17/2025 Marly Kumar NP [address] [place] [address], [address] , [employer] 14:39:28 Cough 22446289 Active 2024 Marly Kumar NP [address] [place] [address], [address] , [employer] 5 14:39:26 Macromas tia 772300735 Active 2024 Marly Kumar NP [address] [place] [address], [address] , [place] [employer] 5 14:39:23 Mammogra phy abnormal 635881775 Active 2024 Marly Kumar NP [address] [place] [address], [address] , [employer] 09:14:58 Pneumoni a 501043780 Completed 202403/29/2025 Marly Kumar NP [address] [place] [address], [address] , [employer] 5 09:02:21 Acute cough Active 2024 Marly Kumar NP [address] [place] [address], [address] , [employer] 5 09:08:45 Acute exacerba tion of chronic obstruct mark pulmonar y disease 009988534 Active 2024 Marly Kumar NP [address] [place] [address], [address] , [facility] [employer] 5 09:11:50 Acute on chronic systolic heart failure 061875935 Completed 201611/25/2016 Not Available [facility] 2 21:36:04 Bronchop neumonia 298568197 Completed 201601/19/2017 Problem Code: J18.0; Problem Code Type: ICD-10; Not Available [facility] 2 21:36:04 Bronchop neumonia 172831562 Completed 201601/24/2017 Problem Code: J18.0; Problem Code Type: ICD-10; Not Available [facility] 21:36:04 Pain of left wrist 14042883248 9102 Completed 201604/25/2017 Problem Code: M25.532; Problem Code Type: ICD-10; Not Available [facility] 2 21:36:04 Localize d edema 968636340 Completed 201604/25/2017 Problem Code: R60.0; Problem Code Type: ICD-10; Not Available [facility] 2 21:36:05 Congesti ve heart failure 39966601 Completed 201611/25/2016 Problem Code: 428.0; Problem Code Type: ICD-9; Not Available [facility] 2 21:36:05 Pneumoco ccal pneumoni a 233369987 Completed 201601/19/2017 Problem Code: 481; Problem Code Type: ICD-9; Not Available [facility] 2 21:36:05 Pain of joint of wrist 636865477 Completed 201604/25/2017 Problem Code: 719.43; Problem Code Type: ICD-9; Not Available [facility] 2 21:36:05 Edema 422729887 Completed 201604/25/2017 Problem Code: 782.3; Problem Code Type: ICD-9; Not Available [facility] 2 21:36:05 Pneumoco ccal pneumoni a 161615187 Completed 201601/24/2017 Problem Code: 481; Problem Code Type: ICD-9; Not Available [facility] 21:36:05 Problem Notes None recorded. Procedures Surgical History Date Name Laterality Status Provider Name and Address Organization Details Recorded Time 11/02/19 23 Most Recent Mammogram completed Ruth Zhao [employer]. 11/26/2023 13:21:36 10/29/20 16 cholecystectomy completed Not Available [facility] 07/08/2022 22:56:19 10/29/20 16 hernia repair completed Not Available [facility] 07/08/2022 22:56:20 10/29/20 16 hysterectomy completed Not Available [facility] 07/08/2022 22:56:21 lumpectomy of right breast completed [employer] 08/19/2023 14:52:33 Imaging Results None recorded. Procedure Notes None recorded. Medical Equipment None Reported. Allergies Allergen ID Allergen Name Allergen Category Reaction Reaction Severity Criticality Documentation Date Start Date Code Code System Note Provider Name and Address Organization Details Recorded Time 11930 Product containin g penicilli n (product) medicatio n Not available Not available Not available 07/08/2022 13767 8001 [employer]. 14:43:11 83492 Substance with sulfonami de structure and antibacte rial mechanism of action (substanc e) medicatio n Not available Not available Not available 07/08/2022 85399 8003 [facility] [employer]. 14:43:16 95313 Fosamax medicatio n Not available Not available Not available 07/08/2022 58250 5 RxNorm Not Available [facility] 22:55:02 Medications Name Sig Start Date Stop [...] oximetry Systolic blood pressure Diastolic blood pressure Systolic blood pressure Diastolic blood pressure Systolic blood pressure Diastolic blood pressure Provider Name and Address Organization Details Last Updated DateTime 152.4 cm 32.1 kg/m2 57263.9 g 98.6 [degF] 88 /min 97 % 97 % 157 mm[Hg] 82 mm[Hg] 156 mm[Hg] 87 mm[Hg] 148 mm[Hg] 84 mm[Hg] [employer] 5 09:14:28 Date Recorded Body height Body mass index (BMI) Body weight Heart rate Oxygen saturation Oxygen saturation in Arterial blood by Pulse oximetry Systolic blood pressure Diastolic blood pressure Systolic blood pressure Diastolic blood pressure Provider Name and Address Organization Details Last Updated DateTime 5 152.4 cm 34.2 kg/m2 45809.3 6 g 72 /min 96 % 96 % 158 mm[Hg] 72 mm[Hg] 136 mm[Hg] 82 mm[Hg] Kelsey Chris [employer] 5 08:25:29 Date Recorded Body height Body mass index (BMI) Body weight Heart rate Oxygen saturation Oxygen saturation in Arterial blood by Pulse oximetry Systolic blood pressure Diastolic blood pressure Systolic blood pressure Diastolic blood pressure Provider Name and Address Organization Details Last Updated DateTime 5 152.4 cm 33.8 kg/m2 10362.8 8 g 79 /min 98 % 98 % 158 mm[Hg] 79 mm[Hg] 137 mm[Hg] 86 mm[Hg] [employer] 5 10:48:36 Date Recorded Body height Body mass index (BMI) Body weight Heart rate Oxygen saturation Oxygen saturation in Arterial blood by Pulse oximetry Systolic blood pressure Diastolic blood pressure Provider Name and Address Organization Details Last Updated DateTime 5 152.4 cm 34.8 kg/m2 92523.5 4 g 94 /min 95 % 95 % 132 mm[Hg] 83 mm[Hg] [employer] 5 14:32:15 Date Recorded Body height Body mass index (BMI) Body weight Body temperature Heart rate Oxygen saturation Oxygen saturation in Arterial blood by Pulse oximetry Systolic blood pressure Diastolic blood pressure Provider Name and Address Organization Details Last Updated DateTime 5 152.4 cm 34.4 kg/m2 11998.9 6 g 98.2 [degF] 83 /min 96 % 96 % 134 mm[Hg] 85 mm[Hg] Codie Shah [employer] 08:53:15 Social History Question Answer Notes LastModified by Organizat ion Details LastModified Time Tobacco Smoking Status Former Smoker ALBERTO ROCK tierra, [employer] 08/19/2023 14:46:52 Do You Have An Advance Directive? No Information n ot available 08/19/2023 Is Your Home Air Conditioned? Yes [email or web address] Information not available 08/19/2023 Are You Blind Or Do You Have Difficulty Seeing? Yes [email or web address] Information n ot available 12/23/2023 Are You A Caregiver? No [email or web address] Information not available 06/23/2024 In The 14 [...] To Be High Risk For COVID-19? No [email or web address] Information not available 08/19/2023 Are You Deaf Or Do You Have Serious Difficulty Hearing? Yes Information not available 12/23/2023 What Type Of Diet Are You Following? REGULAR [email or web address] Information n ot available 08/19/2023 Have There Been Any Changes To Your Family Or Social Situation? No [email or web address] Information no t available 08/19/2023 When Did You Quit Smoking? 16+yearssince lastcigaranaly [email or web address] Information not available 08/19/2023 Do You Have A Medical Power Of Pill Coater? No [email or web address] Information not available 08/19/2023 What Was The Date Of Your Most Recent Tobacco Screening? 03/29/2025 [email or web address] Information not available 03/29/2025 What Is Your Current Pack Years? 10-19pamuriel s [email or web address] Information not available 08/19/2023 Do You Have Any Pets? Yes [email or web address] Information not available 08/19/2023 What Is Your Relationship Status? [email or web address] Information not available 08/19/2023 Do You Use Your Seat Belt Or Car Seat Routinely? Yes [email or web address] Information not available 08/19/2023 Are You Sexually Active? No [email or web address] Information not available 06/23/2024 Do You Have Smoke And Carbon Monoxide Detectors In Your Home? Yes Information not available 08/19/2023 At What Age Did You Start Smoking Tobacco? 14 [email or web address] Information not available 08/19/2023 Are You Passively Exposed To Smoke? Yes [email or web address] Information no t available 08/19/2023 Are There Any Smokers In Your House? Yes [email or web address] Information not available 08/19/2023 Do You Participate In Social Media? No Information not available 06/23/2024 Has Tobacco Cessation Counseling Been Provided? No [email or web address] Information not available 08/19/2023 How Many Years Have You Smoked Tobacco? 15 Information not available 08/19/2023 Have You Recently Traveled Abroad? No Information not available 08/19/2023 Do You Have Difficulty Walking Or Climbing Stairs? Yes [email or web address] Information not available 08/19/2023 Are You Currently In School? No [email or web address] Information not available 08/19/2023 Do You Have Any Dietary Restrictions? No [email or web address] Information not available 06/23/2024 Sex: Female Functional Status Question Answer Note LastModified by Organizat ion Details LastModified Time Do you use any illicit or recreational drugs? No [email or web address] Information not available 08/19/2023 Do you or have you ever used any other forms of tobacco or nicotine? No [email or web address] Information not available 08/19/2023 What is your level of alcohol consumption? None Information not available 08/19/2023 Are you currently employed? No [email or web address] Information not available 08/19/2023 Do you have transportation difficulties? Yes unable to drive herself [email or web address] Information not available 08/19/2023 Are you able to walk? YESWOREST [email or web address] Information not available 08/19/2023 Do you have difficulty doing errands alone? Yes [email or web address] Information not available 12/23/2023 Are you able to care for yourself? Yes [email or web address] Information n ot available 08/19/2023 Do you have difficulty dressing or bathing? Yes [email or web address] Information not available 12/23/2023 Mental Status Question Answer Note LastModified by Organizat ion Details LastModified Time Do you feel stressed (tense, restless, nervous, or anxious, or unable to sleep at night)? JD8766-4 [email or web address] Information not available 06/23/2024 Do you have difficulty concentrating, remembering or making decisions? Yes [email or web address] Information no t available 12/23/2023 Family History Relationship Description Onset Age of this Age Resolved Age Notes LastModified by Organization Details LastModified Time Mother Family history of Hypertension Not available 08/19/2023 14:44:48 Mother Family history of congestive heart failure [email or web address] Not available 14:44:53 Mother Family history of Myocardial infarction [email or web address] Not available 14:44:57 Mother Diabetes mellitus [email or web address] Not available 14:45:07 Mother Parkinson's disease [email or web address] Not available 14:45:25 Medical History Condition Response Emergency room visit since last appointm ent. N Hypothyroidism Y High Cholesterol Y Hospitalizations N Hypertension Y Gynecological History Statement/Question Response Date of Last Pap Smear Most Recent Mammogram 11/02/2022 Obstetrics History GPAL:G 0 P 0 0 0 0 Immunizations Vaccine Type Date Status Note Provider Nam e and Address Organization Details Recorded Time Influenza, high-dose, trivalent, PF 4 completed Marly Kumar NP [address] [place] [address], [phone], [employer] 09/09/2024 11:00:39 RSV, recombinant, protein subunit RSVpreF, adjuvant reconstituted, 0.5 mL, PF 4 completed Marly Kumar NP [address] [place], [address], [employer] 09/09/2024 11:00:39 zoster recombinant 4 completed Marly Kumar NP [address] [place], [address], [employer] 09/26/2024 17:21:28 zoster recombinant 5 completed Marly Kumar, DUNG [address] [place], [address], [employer] 12/28/2024 12:12:07 COVID-19, mRNA, LNP-S, PF, 100 mcg/0.5mL dose or 50 mcg/0.25mL dose 1 completed ALBERTO ROCK null, [employer] 08/19/2023 14:43:02 COVID-19, mRNA, LNP-S, PF, 30 mcg/0.3 mL dose 1 completed ALBERTO ROCK null, [employer] 08/19/2023 14:43:02 COVID-19, mRNA, LNP-S, PF, 30 mcg/0.3 mL dose 1 completed ALBERTO ROCK null, [employer] 08/19/2023 14:43:02 Influenza, split virus, trivalent, preservative 7 completed ALBERTO ROCK null, [employer] 08/19/2023 14:43:02 Influenza, split virus, trivalent, preservative 2 completed ALBERTO ROCK null, [employer] 08/19/2023 14:43:02 Influenza, split virus, trivalent, preservative 0 completed ALBERTO ROCK null, [employer] 08/19/2023 14:43:02 Influenza, split virus, trivalent, PF 4 completed ALBERTO ROCK null, [employer] 08/19/2023 14:43:02 Influenza, split virus, quadrivalent, PF 2 completed ALBERTO ROCK null, [employer] 08/19/2023 14:43:02 Pneumococcal conjugate PCV20, polysaccharide RKH401 conjugate, adjuvant, PF 4 completed Abi Vazquez null, [employer] 05/26/2024 11:20:59 Past Encounters Encounter ID Performer Location Encounter Start Date Encounter Closed Date Diagnosis/Indication Diagnosis SNOMED-CT Code Diagnosis ICD10 Code Diagnosis Note [id number] [place] [id number] 0 08/19/2023 14:36:10 08/19/2023 15:40:23 Seizure disorder 941311814 G40.909 Memory impairment 607750 006 R41.3 Hypothyroidism 26714201 E03.9 Seasonal allergy 4297228 04 J30.2 Nausea 869878165 R11.0 Mixed hyperlipidemia 267 494315 E78.2 Hypertensive disorder 38 654314 I10 Anxiety disorder 6758928 06 F41.9 Insomnia 638303735 G47.0 0 Hypomagnesemia 125850312 E83.42 Gastroesop hageal reflux disease without esophagitis 777343247 K21.9 Hypokalemia 93359464 E87 .6 Candidiasis of skin 4988 3006 B37.2 [id number] [place] [address] 0 09/09/2023 14:09:35 09/09/2023 14:56:12 Candidiasis of skin 39580188 B37.2 Wound of skin 862140625 T14.8XXD [id number] [place] [address] 0 10/15/2023 10:07:51 10/15/2023 10:29:28 Long-term current use of opiate analgesic drug 5923319190 76035 Z79.534 [id number] [place] [address] 11/12/2023 08:38:20 11/12/2023 10:30:58 Localized swelling of head 7833617509 1175761 R22.0 Insomnia 643759818 G47.0 0 [id number] Pam Guevara APRN [place] [id number] 0 11/26/2023 13:07:57 11/26/2023 14:05:55 Cough 99432328 R05.9 Lower resp iratory tract infection 51379486 J22 Body mass index 25-29 - overweight 944987997 Z68.26 [id number] FREDDY GARCIA [place] [id number] 0 12/23/2023 08:59:20 12/23/2023 09:48:11 Chronic low back pain 084674529 M54.50 Activity o f daily living (ADL) alteration 597132325 Z73.89 Abnormal g ait due to muscle weakness 478304464 M62.81 Insomnia 913008468 G47.0 0 Memory impairment 755846 006 R41.3 Seizure disorder 4025405 02 G40.463 [id number] FREDDY GARCIA [place] [address] 0 02/03/2024 09:45:35 02/03/2024 09:54:21 Difficulty demonstrating health literacy 206862505 Z55.6 [id number] FREDDY GARCIA [place] [address] 0 04/04/2024 09:37:30 04/04/2024 11:29:03 Needs assistance with community resources 4732940289 9102 Z76.89 [id number] Marly Kumar NP [place] [address] 0 05/26/2024 11:02:27 05/26/2024 12:49:53 Hyperlipidemia 80502220 E78.5 Hypertensive disorder 38 379969 I10 Post-disch arge follow-up 724591179 Z09 Chronic ob structive pulmonary disease 81386301 J44.9 [id number] Marly Kumar NP [place] [address] 0 06/23/2024 12:36:58 06/23/2024 13:43:14 Numbness of hand 364751879 R20.0 Ophthalmic examination and evaluation 80496508 Z01.00 Hypertensive disorder 38 565670 I10 Hyperlipidemia 29207260 E78.5 [id number] Marly Kumar NP [place] [id number] 0 06/24/2024 08:48:48 06/24/2024 08:51:13 Finding related to health literacy 945191582 Z55.6 [id number] Marly Kumar, DUNG [place] [address] 0 07/27/2024 09:03:39 07/27/2024 09:40:08 Finding related to health literacy 364217464 Z55.6 Food insecurity 81257723 3 Z59.41 [id number] Marly Kumar, DUNG [place] [address] 0 09/08/2024 09:08:03 09/08/2024 10:49:37 Active or passive immunization 978436167 Z23 Chronic ob structive pulmonary disease 16274935 J44.9 Hyperlipidemia 65740192 E78.5 Hypertensive disorder 38 112658 I10 Insomnia 686836011 G47.0 0 Postmenopausal state 764 45629 Z78.0 Chronic back pain 226303 002 G89.29 Osteoporosis 75298656 M8 1.0 Hypokalemia 89359130 E87 .6 Body mass index 30+ - obesity 172148340 Z68.30 Adult heal th examination 767842077 Z00.01 [id number] Marly Kumar NP [place] [address] 0 09/26/2024 08:42:47 09/26/2024 09:52:35 Hypertensive disorder 63388776 I10 Long-term drug therapy 040275048 Z79.891 Active or passive immunization 987131847 Z23 Gastroesop hageal reflux disease without esophagitis 061166338 K21.9 Peripheral demyelinating neuropathy 68431056 G62.89 Chronic back pain 526934 002 G89.29 [id number] Marly Kumar NP [place] [address] 0 12/07/2024 08:54:21 12/07/2024 10:12:24 Pain of left knee joint 0727569180 20120 M25.120 [id number] Marly Kumar NP [place] [address] 0 12/28/2024 08:11:42 12/28/2024 10:05:34 Chronic obstructive pulmonary disease 83421859 J44.9 Essential hypertension 58902241 I10 Hyperlipidemia 08770085 E78.5 Gastroesop hageal reflux disease without esophagitis 178108606 K21.9 Insomnia 631533940 G47.0 0 Restless legs 65753364 G 25.81 Hepatitis C screening 41 6166276 Z11.59 Active or passive immunization 542319354 Z23 Bilateral lower limb edema 940366107 R60.0 Pain of bi lateral hands 6787930202 9167906 M79.641 M79.324 [id number] Marly Kumar NP [place] [address] 0 01/23/2025 10:35:51 01/23/2025 11:32:52 Candidiasis of skin 45546974 B37.2 Cough 35217443 R05.9 Macromastia 383406155 N6 2 Restless legs 54413639 G 25.81 Screening for malignant neoplasm of breast 997355380 Z12.39 [id number] Marly Kumar NP [place] [address] 0 02/17/2025 14:15:48 02/17/2025 15:48:12 Cough 64464254 R05.9 Pneumonia 128179475 J18. 9 [id number] Marly Kumar NP [place] [address] 0 03/29/2025 08:34:18 03/29/2025 09:18:47 Hyperlipidemia 58593516 E78.5 Acute cough 1723078021 62840903 R05.1 Acute exac erbation of chronic obstructive pulmonary disease 514046243 J44.1 Seizure disorder 0553398 02 G40.909 Mixed hyperlipidemia 267 020985 E78.2 Gastroesop hageal reflux disease without esophagitis 942238835 K21.9 Health Concerns Section Related Observation LastModified by Organization Detai ls LastModified Time None Recorded Concern Status LastModified by Organization Details LastModified Time None Recorded Advance Directives Directive N: Payers Insurance Date Sequence Insurance Name Policy Number Policy Cordero Covered Member ID Cordero Member ID Guarantor Name 03/26/2025 [employer] - DMEPOS ASSIGNED (MEDICARE DME REGION B) Jackqueline F Gregorio [id number] Jackqueline Gregorio 11/24/2024 SLIDING FEE SCHEDULE - DISCOUNT Jackqueline Gregorio 02/17/2025 1 [place] Jackqueline F Gregorio [id number] Jackqueline Gregorio 02/17/2025 [place] [employer] [place] Jackqueline Gregorio [id number] Jackqueline Gregorio 02/17/2025 2 [place] [id number] Jackqueli F Gregorio [id number] Jackqueline Gregorio 04/27/2025 2 MEDICAID-[facility] - FFS/TRADITIONAL Jackqueli Gregorio [id number] Jackqueline Gregorio 02/02/2024 2 UNSPECIFIED REMIT PAYOR Jackqueline Gregorio 04/09/2024 SLIDING FEE SCHEDULE - DISCOUNT Jackqueline Gregorio 02/17/2025 [place] [employer] [place] Jackqueline Gregorio [id number] Jackqueline Gregorio 02/17/2025 2 [place] [id number] Jackqueline F Gregorio [id number] Jackqueline Gregorio 03/26/2025 1 [place] Jackqueline F Gregorio [id number] Jackqueline Gregorio 03/26/2025 [place] [employer] [place] Jackqueline F Gregorio [id number] Jackqueline Gregorio Notes Date Note Type Note Provider Name and Address Organization Details Recorded Time 12/07/2024 text/html Patient presents for evaluation of left knee pain. No trauma or fall. She states on Thursday she was getting out of bed (2 days ago), and her knee was completely bent. She could not straighten it out to get out of bed. She ended up taking her other leg and pushing until she could straighten it. She heard and felt a pop on both lateral and medial knee joint and has had pain since then. She has mildly limping gait but significant pain with ROM. No erythema or warmth. She has no history of gout. She did have previous ligament tear that was treated with knee immobilizer years ago, but typically did not have knee pain prior to this. She does have osteoporosis. She cannot take NSAIDs. Marly Kumar NP [address] [place], [address], [employer] 12/08/2024 17:34:52 12/28/2024 text/html Patient presents for follow up on HTN, HLD, COPD. She is taking her medications as prescribed.For the last two weeks she has had RLS. States that she has constant aching and movement of her legs. She also has increased swelling in her legs - she sees cardiology next in March. Their last note advised that she wear compression stockings, but she cannot get them on right now because of the swelling. She has also gained 11 lbs in the last 3 weeks. Blood pressure runs below 130 over below 80's at home. She has not had to take her midodrine in quite some time now. Marly Kumar NP [address] [place], [address], [employer] 12/28/2024 12:17:02 01/23/2025 text/html Patient presents for evaluation of place on her chest. She also admits she had exposure to RSV. States it is right between her breasts, it started 2 months ago. States it comes back every time she goes without a bra. It is a rash but seems like it splits open without a bra. She states that she also has upper back pain d/t large breasts and wonders if she should get a reduction.She does have a cough that started a few days ago. No fever/chills. No SOA. She did have RSV vaccine in September. Marly Kumar NP [address] [place], [address], [employer] 01/23/2025 13:25:00 02/17/2025 text/html Patient presents for ER follow up. She was diagnosed with pneumonia about two weeks ago. She has completed the antibiotic and steroid that were prescribed but continues to have cough. She has not had any increased SOA. She has not had any fevers. Marly Kumar NP [address] [place], [address], [employer] 02/20/2025 18:49:09 03/29/2025 text/html Patient presents for follow up on multiple chronic illnesses.Cardiolo gy increased lasix to BID. She had BMP [...] has improved. No other concerns today. Marly Kumar NP [address] [place], [address], [employer] 03/29/2025 09:38:54 OBGyn Episode No OBEpisode recorded.
[2025-04-27] MEDS: NYSTATIN CREAM 30GM/TUBE TP (08:28)
[2025-04-27] MEDS: BISOPROLOL 5MG TABLET 2.5 MG PO (08:30)
[2025-04-27] MEDS: ASPIRIN 81MG CHEWABLE TABLET 81 MG PO (08:30)
[2025-04-27] MEDS: LACTULOSE 20GM/30ML UDC 20 GM PO ×2 (08:30→22:37)
[2025-04-27] MEDS: FENOFIBRATE 134MG CAPSULE 134 MG PO (08:30)
[2025-04-27] MEDS: LORATADINE 10MG TABLET 10 MG PO (08:31)
[2025-04-27] MEDS: HEPARIN SODIUM 5,000 UNIT/ML VIAL 5000 UNIT SUBCUT ×2 (08:31→22:34)
[2025-04-27] MEDS: OXcarbazepine 300MG TABLET 300 MG PO (08:32)
[2025-04-27] MEDS: levETIRAcetam 500 MG TABLET PO ×2 (10:31→22:34)
[2025-04-27 12:00] VITALS: BP 121/58; PULSE 70; RESP 16; TEMP 36.5; O2SAT 94
[2025-04-27] MEDS: FLUTICASONE/SALMETEROL 250/50MCG DISKUS 1 PUFF IH (18:15)
--- NOTE | 2025-04-27 19:47 | P.PN_ITS ---
Subjective *Date: 04/27/25 *Time: 21:40 Interval history: Patient afebrile. On room air. No seizure activity. Some improving mentation today. Labs showed elevated ammonia. Started on lactulose. Having bowel movements. No nausea or vomiting. Medical Exam Vital signs and Labs for Last 24 Hours: Vital Signs Temp Pulse Pulse Resp BP BP Pulse Ox 04/27/25 12:00 97.7 F 70 16 121/58 L 94 L 04/27/25 09:00 04/27/25 08:00 04/27/25 06:40 04/27/25 05:00 04/27/25 04:00 97.7 F 60 16 98/64 L 95 04/27/25 03:00 04/27/25 01:00 04/26/25 23:05 98.1 F 68 14 172/85 H 94 L 04/26/25 23:00 04/26/25 22:46 98.0 F 66 20 127/58 L 04/26/25 22:26 04/26/25 22:00 66 12 127/58 L 97 04/26/25 21:31 66 15 92/53 L 96 04/26/25 21:00 67 14 133/68 97 04/26/25 20:30 68 18 136/88 97 04/26/25 20:02 62 18 139/78 97 04/26/25 20:00 63 14 139/78 97 O2 Del Method 04/27/25 12:00 Room Air 04/27/25 09:00 Room Air 04/27/25 08:00 Room Air 04/27/25 06:40 Room Air 04/27/25 05:00 Room Air 04/27/25 04:00 Room Air 04/27/25 03:00 Room Air 04/27/25 01:00 Room Air 04/26/25 23:05 Room Air 04/26/25 23:00 Room Air 04/26/25 22:46 Room Air 04/26/25 22:26 Room Air 04/26/25 22:00 04/26/25 21:31 04/26/25 21:00 04/26/25 20:30 04/26/25 20:02 Room Air 04/26/25 20:00 Intake and Output 04/27/25 04/27/25 04/27/25 07:59 15:59 23:59 Intake Total 50 / 930 680 / 930 200 / 930 Output Total 250 / 450 200 / 450 Balance -200 / 480 480 / 480 200 / 480 Intake: Intake, Oral Amount 680 / 880 200 / 880 Intake, Total IV Amount 50 / 50 Ceftriaxone 1 gm 1 gm In 0.9 % 50 / 50 Sodium Chloride 50 ml @ 100 mls /hr IV ONCE ONE Rx#:[id number] Output: Output, Urine Amount 250 / 450 200 / 450 Other: Number of Unmeasured Voids 0 0 Number of Bowel Movements 1 Weight 79.243 kg Patient Weight 04/27/25 23:59 Weight 79.243 kg Laboratory Results - last 24 hr 04/26/25 19:23: WBC 4.8, RBC 4.04 L, Hgb 12.1 L, Hct 38.2, MCV 94.6, MCH 30.0, MCHC 31.7 L, RDW 14.9, Plt Count 215, MPV 12.5 H, Neut % (Auto) 40.8, Lymph % (Auto) 46.0, [place] % (Auto) 8.7, Eos % (Auto) 3.3, Baso % (Auto) 0.8, Neut # (Auto) 2.0, Lymph # (Auto) 2.2, [place] # (Auto) 0.4, Eos # (Auto) 0.2, Baso # (Auto) 0.0, ESR 32 H, PT 12.1, INR 1.10, APTT 23.4, Sodium 139, Potassium 3.9, Chloride 98, Carbon Dioxide 33 H, Anion Gap 11.9, BUN 35 H, Creatinine 1.20 H, Estimated Creat Clear 54, Estimated GFR 44 L, Est GFR ( Amer) 54 L, Glucose 106 H, Calcium 10.0, Magnesium 1.7, Total Bilirubin 0.6, AST 37 H, ALT 21, Alkaline Phosphatase 54, Total Creatine Kinase 41, Troponin I < 0.01, C- Reactive Protein 3.8, NT-Pro-B Natriuret Pep 192 H, Total Protein 7.1, Albumin 4.2, Globulin 2.9, Albumin/Globulin Ratio 1.4, Lipase 90, Procalcitonin 0.054, TSH 3.10, Free T4 Index 2.7 L, Thyroxine (T4) 8.5, T3 Uptake 32, HCV Ab WEI w/Rflx PCR Qn Negative, HIV Ag/Ab Combo Qual Negative 04/26/25 19:32: Chlamy pneumoniae PCR Not detected, Adenovirus (PCR) Not detected, B. pertussis DNA (PCR) Not detected, Coronavirus OC43 (PCR) Not detected, Coronavirus HKU1 (PCR) Not detected, Coronavirus 229E (PCR) Not detected, SARS-CoV-2 (PCR) Not detected, Coronavirus NL63 (PCR) Not detected, Human Metapneumovir PCR Not detected, Influenza A (H1) PCR Not detected, Influ A (H1N1/09) PCR Not detected, Influenza A (H3) PCR Not detected, Influenza Type A (PCR) Not detected, Influenza Type B (PCR) Not detected, M. pneumoniae (PCR) Not detected, Parainfluenza 1 (PCR) Not detected, Parainfluenza 2 (PCR) Not detected, Parainfluenza 3 (PCR) Not detected, Parainfluenza 4 (PCR) Not detected, RSV (PCR) Not detected, Entero/Rhino (PCR) Not detected 04/26/25 19:43: Ammonia 36 H 04/26/25 19:52: Urine Color Yellow, Urine Appearance Clear, Urine pH 8.0, Ur Specific [place] 1.015, Urine Protein Negative, Urine Glucose (UA) Negative, Urine Ketones Negative, Urine Blood Negative, Urine Nitrate Negative, Urine Bilirubin Negative, Urine Urobilinogen 0.2, Ur Leukocyte Esterase Negative, Urine RBC 5-10, Urine WBC 5-10, Ur Squamous Epith Cells 3-5, Urine Bacteria 2+, Urine Mucus 1+ 04/26/25 22:15: Troponin I < 0.01 04/27/25 01:38: Troponin I < 0.01 04/27/25 06:29: WBC 4.7 L, RBC 3.51 L, Hgb 10.7 L D, Hct 33.0 L, MCV 94.0, MCH 30.5, MCHC 32.4, RDW 14.9, Plt Count 177, MPV 13.0 H, Neut % (Auto) 27.4 L, Lymph % (Auto) 59.6 H, [place] % (Auto) 9.2, Eos % (Auto) 3.0, Baso % (Auto) 0.6, Neut # (Auto) 1.3 L, Lymph # (Auto) 2.8, [place] # (Auto) 0.4, Eos # (Auto) 0.1, Baso # (Auto) 0.0, Sodium 140, Potassium 3.8, Chloride 105, Carbon Dioxide 29, Anion Gap 9.8, BUN 30 H, Creatinine 0.90 D, Estimated Creat Clear 65, Estimated GFR 62, Est GFR ( Amer) 75 D, Glucose 82 D, Calcium 8.3 L, Ammonia 94 H I & O for Labs for Last 24 Hours: Intake & Output 04/24/25 04/25/25 04/26/25 04/27/25 23:59 23:59 23:59 23:59 Intake Total 930 / 930 Output Total 450 / 450 Balance 480 / 480 Weight 79.243 kg 79.243 kg Constitutional: Present no acute distress, obese, chronically ill appearing and cooperative Head: Present atraumatic and normocephalic ENT: Present normal exam Respiratory: Present normal respiratory effort; Absent rhonchi, wheezes or crackles Cardiac: Present Reg Rate and Rhythm GI: Present soft and normal bowel sounds; Absent distention or tenderness Extremities: Present normal inspection and full ROM Skin: Present intact; Absent erythema Neuro: Present Grossly Intact, alert, awake and moves all extremities Comment:: Oriented to self and place. Ambulating independently Assessment and Plan *Assessment and plan (1) Encephalopathy: Status: Acute Qualifiers: Encephalopathy type: unspecified encephalopathy Qualified Code(s): G93.40 - Encephalopathy, unspecified Category: Medical Code(s): G93.40 - Encephalopathy, unspecified Plan: Treat for urinary tract infection Mildly elevated ammonia level, monitor Monitor for seizure activity (2) RON (acute kidney injury): Status: Acute Category: Medical Code(s): N17.9 - Acute kidney failure, unspecified Plan: NS at 100 mL an hour, monitor for fluid overload Monitor I's and O's Avoid nephrotoxic agents (3) Urinary tract infectious disease: Status: Acute Qualifiers: Hematuria presence: with hematuria Urinary tract infection type: site unspecified Qualified Code(s): N39.0 - Urinary tract infection, site not specified; R31.9 - Hematuria, unspecified Category: Medical Code(s): N39.0 - Urinary tract infection, site not specified Plan: Rocephin 1 g every 24 hours Monitor urine culture and adjust antibiotics as indicated (4) Hyperammonemia: Status: Acute Category: Medical Code(s): E72.20 - Disorder of urea cycle metabolism, unspecified Plan: Trend ammonia level Consider GI consult (5) Seizure: Problem Comment: Atypical seizures cannot exclude psychogenic etiology, PNES. Currently on valproic acid ER, oxcarbazepine. Seen in the past by neurology, details unknown. Status: Chronic Category: Medical Code(s): R56.9 - Unspecified convulsions Plan: Continue patient's home dose of valproic acid and oxcarbazepine (6) COPD (chronic obstructive pulmonary disease): Status: Chronic Category: Medical Code(s): J44.9 - Chronic obstructive pulmonary disease, unspecified Plan: Continue patient's home Symbicort inhaler Plan 69-year-old female admitted for encephalopathy. Found to have elevated ammonia. Differential includes cirrhosis, medication side effect. Imaging of abdomen do es not show any signs of cirrhosis. No history of cirrhosis. Patient on Depakote for seizures, risk for elevated ammonia levels. Adjustments to medication regimen today. Continues to require patient management. Problems addressed as follows: Encephalopathy Hyperammonemia RON - Patient's confusion marginally better today. Ammonia level this morning elevated at 94, up from 36 on admission. Initiated lactulose 20 gm 3 times daily p.o. - White count 4.7, kidney function normal and 30, creatinine 0.9. Improved this morning. - Repeat CBC, CMP, magnesium, ammonia ordered for the morning - Anticipate improvement with improvement in pneumonia. - Elevated level suspect to be secondary to Depakote. Discontinue Depakote at this time. Free valproic acid level pending Seizure disorder - Discussed case with patient's PCP. She has referred her to neurology, recently seen 3 months ago by neurology at [facility]. Recommended transitioning to different seizure medication at that time but changes have not been made. Has not seen neurology at in some time. Some confusion on patient's medication regimen. Taking Depakote currently, states history of oxcarbazepine but does not show a fill history in the past 6 months. - Given concern for Depakote as cause for her confusion, elevated ammonia, will discontinue at this time - Continue oxcarbazepine - Initiate Keppra 500 mg p.o. twice daily - Monitor for seizure activity. Will plan to refer to neurology as an outpatient for further management Continue bisoprolol 2.5 mg daily for hypertension Continue levothyroxine 88 mcg daily for hypothyroid Holding midodrine given normotensive state Continue omeprazole 40 mg for GERD Continue seroquel 12.5 mg nightly for sleep Full code Cardiac diet Continue heparin 5000 units subcu twice daily
[2025-04-27 20:00] VITALS: BP 130/61; PULSE 71; RESP 18; TEMP 36.8; O2SAT 95
[2025-04-27] MEDS: PANTOPRAZOLE 40MG TABLET 40 MG PO (22:34)
[2025-04-27] MEDS: ROPINIROLE HCL 0.25 MG TABLET 0.5 MG PO (22:35)
[2025-04-27] MEDS: ATORVASTATIN 40MG TABLET 40 MG PO (22:36)
[2025-04-27] MEDS: QUETIAPINE 25MG TABLET 12.5 MG PO (22:37)
[2025-04-27] MEDS: MIRTAZAPINE 15 MG TABLET 30 MG PO (22:37)
[2025-04-28] VITALS: BP 116/61; PULSE 59; RESP 16; TEMP 36.4; O2SAT 96
--- NOTE | 2025-04-28 02:17 | PC.NURSE ---
Spoke with Cesar at [facility] for consultation on Rocephin infiltration. He states to continue cold compresses over effected area and continue to monitor. While I was speaking to Cesar, patient called out and stated that US guided IV was burning. Attempted to pull back on line and unable to obtain blood return, attempted to flush IV without success. Line removed and provider made aware for future IV abx.
[2025-04-28] MEDS: ACETAMINOPHEN 325MG TAB 650 MG PO (02:52)
[2025-04-28 03:59] VITALS: BP 144/64; PULSE 63; RESP 16; TEMP 36.7; O2SAT 97; BMI 35.5
[2025-04-28] MEDS: FLUTICASONE/SALMETEROL 250/50MCG DISKUS 1 PUFF IH (05:49)
[2025-04-28 07:04] LABS: Basophils % 0.4 % (0.1-2.0); Chloride 106 mmol/L (98-107); Eosinophils # 0.1 Kmm3 (0.0-0.4); Eosinophils % 2.7 % (0.1-12.0); Hematocrit 34.6 % (37.0-47.0); Hemoglobin 10.5 g/dL (12.2-16.2); Immature Granulocytes # 0.01 10^3uL; Immature Granulocytes % 0.2 %; Lymphocytes # 2.6 K/mm3 (0.7-4.5); Lymphocytes % 54.7 % (10-50); Mean Corpuscular HGB Conc 30.3 g/dL (31.8-35.4); Mean Corpuscular Hemoglobin 29.1 pg (27.0-31.2); Mean Corpuscular Volume 95.8 fl (81-99); Mean Platelet Volume 12.3 fl (7.4-10.4); Monocytes # 0.5 K/mm3 (0.1-1.0); Monocytes % 9.6 % (1.7-9.3); Neutrophils # 1.5 K/mm3 (1.8-7.8); Neutrophils % 32.4 % (37.0-80.0); Nucleated Red Blood Cells # 0 10^3/uL; Nucleated Red Blood Cells % 0 %; Platelet Count 175 K/mm3 (142-424); Red Blood Count 3.61 M/mm3 (4.20-5.40); Red Cell Distribution Width 14.9 % (11.5-17.5); Red Cell Distribution Width-SD 52.4 fL; White Blood Count 4.8 K/mm3 (4.8-10.8)
[2025-04-28 07:05] LABS: Albumin Level 3.5 g/dl (3.5-5.0); Potassium 3.9 mmoL/L (3.5-5.1); Sodium 142 mmol/L (136-145)
[2025-04-28 07:07] LABS: Ammonia 39 umol/L (9-30); Anion Gap 12.9 mEq/L (5-15); Blood Urea Nitrogen 31 mg/dl (7-17); Carbon Dioxide 27 mmol/L (22.0-30.0); Creatinine Clearance Estimated 67 mL/min (50-200); Estimated Glomerular Filt Rate 55 ml/min (>60); GFR (African American) 66 ML/MIN (>60)
[2025-04-28 07:08] LABS: Alanine Aminotransferase 15 U/L (12-78); Albumin/Globulin Ratio 1.4 (1.1-1.8); Alkaline Phosphatase 60 U/L (38-126); Aspartate Amino Transferase 24 U/L (14-36); Bilirubin,Total 0.2 mg/dl (0.2-1.3); Calcium 9.2 mg/dl (8.4-10.2); Globulin 2.5 g/dL (1.3-3.2); Glucose 105 mg/dl (74-100)
--- NOTE | 2025-04-28 07:33 | EXP.DC.SUM ---
General Admission date:: 04/26/25 Discharge date: 04/28/25 HPI HPI HPI: Ms. Perkins is a 69-year-old female presents to the ER for evaluation of altered mental status. Patient has a past medical history of seizure disorder, congestive heart failure, atrial fibrillation, dementia, hyperlipidemia, NH, and renal insufficiency. Patient states that she was admitted on the for seizure activity at [facility] and discharged the next day. She states when she was discharged she was still continuing to have nausea and vomiting. She states she was brought in today because the person that was with her thought that she was confused. She states that person reported she kept rolling her eyes in the back of her head. Patient does not remember being confused today she just remembers having persistent nausea and vomiting. She denies fever/chills, cough, congestion, runny nose, abdominal pain, diarrhea, constipation, headache, lightheadedness, dizziness, or syncope. Hospital Course Hospital Course Hospital Course: 69-year-old female admitted for encephalopathy. Found to have elevated ammonia. Differential includes cirrhosis, medication side effect. Imaging of abdomen does not show any signs of cirrhosis. No history of cirrhosis. Patient on Depakote for seizures, risk for elevated ammonia levels. Adjustments made to medications. Mentation improved during admission. Recommend follow-up with neurology for further management. Stable at this time with improved ammonia levels. Problems addressed as follows: Encephalopathy Hyperammonemia RON -Patient presented with some mild confusion and ammonia level of 36 on admission. Worsened to 94 by the morning after admission. Was initiated on lactulose. White count was normal. Kidney function normal. Evaluation of home medications shows the patient is on Depakote. Free valproic acid level was obtained and found to be 26. As Depakote can elevate ammonia levels, will transition to Keppra and discontinue Depakote at this time. Review of patient's chart shows a recent visit with neurology 3 months ago where recommendations were made to consider changing Depakote but no meds were adjusted at that time. Patient's mentation has improved with bowel movements and stopping Depakote. Feels she would benefit from continuing to take lactulose once daily. Has no signs of cirrhosis on exam or workup at this time. Suspect elevated ammonia likely medication related. Tolerating p.o. intake, baseline mentation on day of discharge. Discharged home with family. Seizure disorder - Discussed case with patient's PCP. She has referred her to neurology, recently seen 3 months ago by neurology at [facility]. Recommended transitioning to different seizure medication at that time but changes have not been made. Has not seen neurology at in some time. Some confusion on patient's medication regimen. Taking Depakote currently, states history of oxcarbazepine but does not show a fill history in the past 6 months. Depakote was discontinued due to elevated level of 26 for free valproic acid level. Discontinued oxcarbazepine because it does not appear to have been filled in 6 months or more. Initiated Keppra 500 mg twice daily, increased to 1000 mg twice daily at discharge. No seizure activity during admission. Recommend follow-up with neurology, appointment in the next 2 weeks for further management. Continue bisoprolol 2.5 mg daily for hypertension Continue levothyroxine 88 mcg daily for hypothyroid Holding midodrine given normotensive state Continue omeprazole 40 mg for GERD Continue seroquel 12.5 mg nightly for sleep Total time spent on discharge 32 minutes in counseling, documentation, chart review, and direct care with patient. Exam Data for Last 24 hours Vital signs and Labs for Last 24 Hours: Temp Pulse Resp BP Pulse Ox O2 Del Method 98.0 F 63 16 144/64 H 97 Room Air 04/28/25 03:59 04/28/25 03:59 04/28/25 03:59 04/28/25 03:59 04/28/25 03:59 04/28/25 07:00 Laboratory Results - last 24 hr 04/27/25 06:29: Hgb 10.7 L D 04/28/25 06:35: WBC 4.8, RBC 3.61 L, Hgb 10.5 L, Hct 34.6 L, MCV 95.8, MCH 29.1, MCHC 30.3 L, RDW 14.9, Plt Count 175, MPV 12.3 H, Neut % (Auto) 32.4 L, Lymph % (Auto) 54.7 H, [place] % (Auto) 9.6 H, Eos % (Auto) 2.7, Baso % (Auto) 0.4, Neut # (Auto) 1.5 L, Lymph # (Auto) 2.6, [place] # (Auto) 0.5, Eos # (Auto) 0.1, Baso # (Auto) 0.0, Sodium 142, Potassium 3.9, Chloride 106, Carbon Dioxide 27, Anion Gap 12.9, BUN 31 H, Creatinine 1.00, Estimated Creat Clear 67, Estimated GFR 55 L, Est GFR ( Amer) 66, Glucose 105 H, Calcium 9.2, Magnesium 2.0 D, Total Bilirubin 0.2, AST 24 D, ALT 15 D, Alkaline Phosphatase 60, Ammonia 39 H, Total Protein 6.0 L, Albumin 3.5 D, Globulin 2.5, Albumin/Globulin Ratio 1.4 I & O for Last 24 hours: Intake & Output 04/25/25 04/26/25 04/27/25 04/28/25 23:59 23:59 23:59 23:59 Intake Total 930 / 1430 500 / 500 Output Total 850 / 850 300 / 300 Balance 80 / 580 200 / 200 Weight 79.243 kg 79.243 kg 82.1 kg Constitutional Constitutional: no acute distress, obese, chronically ill appearing and cooperative *Routine HEENT Exam Head: Present normocephalic Eye: Present EOMI and PERRL ENT: Present mucous membranes moist *Routine Neck Exam Neck: Present supple; Absent lymphadenopathy *Routine Respiratory Exam Respiratory: Present CTA bilaterally; Absent rhonchi or wheezes *Routine Cardiovascular Exam Cardiovascular: Present RRR *Routine Abdominal Exam Abdominal: Present soft and normoactive bowel sounds; Absent tenderness *Routine Rectal Exam Patient deferred: visual exam *Routine Exam Patient deferred: external exam *Routine Extremities Exam Extremities: Absent cyanosis, clubbing or edema *Routine Skin Exam Skin: Present intact and warm; Absent rash *Routine Neurological Exam Neurological: Present alert, oriented X3 and moving all extremities; Absent altered mental status Comments: Improve mentation from admission. Results Data Completed and Pending Labs on day of discharge: Labs from last 24 hours 04/28/25 04/27/25 06:35 06:29 WBC 4.8 RBC 3.61 L Hgb 10.5 L 10.7 L D Hct 34.6 L MCV 95.8 MCH 29.1 MCHC 30.3 L RDW 14.9 Plt Count 175 MPV 12.3 H Neut % (Auto) 32.4 L Lymph % (Auto) 54.7 H [place] % (Auto) 9.6 H Eos % (Auto) 2.7 Baso % (Auto) 0.4 Neut # (Auto) 1.5 L Lymph # (Auto) 2.6 [place] # (Auto) 0.5 Eos # (Auto) 0.1 Baso # (Auto) 0.0 Sodium 142 Potassium 3.9 Chloride 106 Carbon Dioxide 27 Anion Gap 12.9 BUN 31 H Creatinine 1.00 Estimated Creat Clear 67 Estimated GFR 55 L Est GFR ( Amer) 66 Glucose 105 H Calcium 9.2 Magnesium 2.0 D Total Bilirubin 0.2 AST 24 D ALT 15 D Alkaline Phosphatase 60 Ammonia 39 H Total Protein 6.0 L Albumin 3.5 D Globulin 2.5 Albumin/Globulin Ratio 1.4 DS: Diagnosis Discharge Diagnosis (1) Encephalopathy: Status: Resolved Code(s): G93.40 - Encephalopathy, unspecified Qualifiers: Encephalopathy type: unspecified encephalopathy Qualified Code(s): G93.40 - Encephalopathy, unspecified (2) RON (acute kidney injury): Status: Resolved Code(s): N17.9 - Acute kidney failure, unspecified (3) Urinary tract infectious disease: Status: Resolved Code(s): N39.0 - Urinary tract infection, site not specified Qualifiers: Hematuria presence: with hematuria Urinary tract infection type: site unspecified Qualified Code(s): N39.0 - Urinary tract infection, site not specified; R31.9 - Hematuria, unspecified (4) Hyperammonemia: Status: Acute Code(s): E72.20 - Disorder of urea cycle metabolism, unspecified (5) Seizure: Status: Chronic Code(s): R56.9 - Unspecified convulsions Problem details: Atypical seizures cannot exclude psychogenic etiology, PNES. (6) COPD (chronic obstructive pulmonary disease): Status: Chronic Code(s): J44.9 - Chronic obstructive pulmonary disease, unspecified Meds Home Medications and Allergies Home Medications ?Medication ?Instructions ?Recorded ?Confirmed ?Type atorvastatin 40 mg tablet 40 mg PO DAILY 04/23/19 04/26/25 History omeprazole 40 mg capsule,delayed 40 mg PO DAILY 04/23/19 04/26/25 History release aspirin 81 mg chewable tablet 81 mg PO DAILY 04/24/19 04/26/25 History nitroglycerin 0.4 mg sublingual 0.4 mg sublingual Q5MINP PRN Chest 04/24/19 04/26/25 History tablet Pain ondansetron 8 mg disintegrating 8 mg PO Q8HP PRN Nausea 04/24/19 04/26/25 History tablet potassium chloride 20 mEq 20 meq PO BID POTASSIUM SUPPLEMENT 04/24/19 04/27/25 History tablet,extended release(part/cryst) acetaminophen 500 mg tablet 1,000 mg PO BIDP PRN pain 08/08/19 04/26/25 History budesonide-formoterol HFA 160 2 puff inhalation BID 01/25/25 04/26/25 History mcg-4.5 mcg/actuation aerosol inhaler fenofibrate nanocrystallized 145 145 mg PO DAILY 01/25/25 04/27/25 History mg tablet levothyroxine 88 mcg capsule 88 mcg PO DAILY 01/25/25 04/27/25 History loratadine 10 mg tablet 10 mg PO DAILY 01/25/25 04/26/25 History magnesium oxide 400 mg (241.3 mg 400 mg PO DAILY 01/25/25 04/27/25 History magnesium) tablet mirtazapine 30 mg tablet 30 mg PO HS 01/25/25 04/26/25 History nystatin 100,000 unit/gram topical 1 applic topical DAILY 01/25/25 04/26/25 History cream quetiapine 25 mg tablet 12.5 mg PO HS 01/25/25 04/27/25 History tizanidine 4 mg tablet 4 mg PO DAILY PRN muscle spasms 01/25/25 04/26/25 History bisoprolol fumarate 2.5 mg tablet 2.5 mg PO DAILY 04/26/25 04/26/25 History furosemide 40 mg tablet 40 mg PO BID 04/27/25 04/27/25 History ropinirole 1 mg tablet 1 mg PO HS 04/27/25 04/27/25 History lactulose 10 gram/15 mL oral 20 g (30 mL) PO DAILY 30 days 04/28/25 Rx solution #1,200 mL levetiracetam 500 mg tablet 1,000 mg (2 x 500 mg) PO BID 30 04/28/25 Rx (Keppra) days #120 tabs New Prescriptions to Start Prescriptions: Anson Pierre levetiracetam [Keppra] Anson Eubanks Allergies Allergy/AdvReac Type Severity Reaction Status Date / Time alendronate sodium (From Allergy Unknown I-HIVES Verified 01/25/25 08:52 FOSAMAX) Penicillins (PENICILLINS) Allergy Unknown I-HIVES Verified 01/25/25 08:52 Sulfa (Sulfonamide Allergy Unknown I-HIVES Verified 01/25/25 08:52 Antibiotics) (SULFA (SULFONAMIDE ANTIBIOTICS)) gabapentin Allergy Verified 01/25/25 08:52 Discharge Plan Disposition Patient Disposition: Home, Self-Care Condition: Fair Discharge Order Discharge Orders: Discharge Order (Routine); Ordered 04/28/25 Ordered By: Anson Eubanks Follow up Plan Follow up with: Marly Kumar APRN [Primary Care Provider, Medical] - 05/17/25 4:45 pm Cynthia Garay MD [Staff Physician, Neurology] - 05/09/25 2:30 pm Prescriptions/Medication Reconciliation: New levetiracetam [Keppra] 500 mg Tablet 1,000 mg PO BID 30 Days Qty: 120 0RF lactulose 10 gram/15 mL Solution 20 g PO DAILY 30 Days Qty: 1200 0RF Continued quetiapine 25 mg tablet 12.5 mg PO HS Patient Comments: take ONE-HALF TABLET BY MOUTH every night FOR SLEEP nystatin 100,000 unit/gram cream 1 applic topical DAILY loratadine 10 mg tablet 10 mg PO DAILY Patient Comments: TAKE ONE TABLET BY MOUTH DAILY budesonide-formoterol 160-4.5 mcg/actuation HFA aerosol inhaler 2 puff inhalation BID fenofibrate nanocrystallized 145 mg tablet 145 mg PO DAILY Patient Comments: TAKE ONE TABLET BY MOUTH AT BEDTIME levothyroxine 88 mcg capsule 88 mcg PO DAILY Rx Instructions: Take 1 tablet by mouth daily on empty stomach before breakfast mirtazapine 30 mg tablet 30 mg PO HS Patient Comments: TAKE ONE TABLET BY MOUTH AT BEDTIME tizanidine 4 mg tablet 4 mg PO DAILY PRN (Reason: muscle spasms) Rx Instructions: Take 1/2 to 1 tablet every 6 hours as needed for pain acetaminophen 500 MG tablet 1,000 mg PO BIDP PRN (Reason: pain) bisoprolol fumarate 2.5 mg tablet 2.5 mg PO DAILY furosemide 40 mg tablet 40 mg PO BID ropinirole 1 mg tablet 1 mg PO HS omeprazole 40 capsule,delayed release(DR/EC) 40 mg PO DAILY atorvastatin 40 MG tablet 40 mg PO DAILY potassium chloride 20 MEQ tablet 20 meq PO BID aspirin 81 MG tablet,chewable 81 mg PO DAILY nitroglycerin 0.4 MG tablet, sublingual 0.4 mg sublingual Q5MINP PRN (Reason: Chest Pain) ondansetron 8 MG tablet,disintegrating 8 mg PO Q8HP PRN (Reason: Nausea) magnesium oxide 400 mg (241.3 mg magnesium) tablet 400 mg PO DAILY Discontinued midodrine 5 mg tablet 2.5 mg PO BID Patient Comments: TAKE ONE TABLET BY MOUTH TWICE DAILY divalproex 500 mg tablet,delayed release (DR/EC) 500 mg PO BID Patient Comments: TAKE ONE TABLET BY MOUTH TWICE DAILY DIRECTED oxcarbazepine 600 mg tablet 300 mg PO BID Problem Reconciliation Problems Reviewed?: Yes Patient Discharge Instructions ACTIVITY: Continue current activity DIET: continue same diet Patient Instructions: DI for Urinary Tract Infection (UTI), DI for Altered Mental Status, Stop Light Infection Print Language: Norwegian Providers Primary Care Provider: Marly Kumar Admit Provider: Anson Eubanks Attending Provider: Anson Eubanks
[2025-04-28 08:00] VITALS: BP 111/62; PULSE 78; RESP 15; TEMP 36.8; O2SAT 97
[2025-04-28] MEDS: LACTULOSE 20GM/30ML UDC 20 GM PO (09:54)
[2025-04-28] MEDS: ASPIRIN 81MG CHEWABLE TABLET 81 MG PO (09:54)
[2025-04-28] MEDS: HEPARIN SODIUM 5,000 UNIT/ML VIAL 5000 UNIT SUBCUT (09:55)
[2025-04-28] MEDS: LORATADINE 10MG TABLET 10 MG PO (09:55)
[2025-04-28] MEDS: levETIRAcetam 500 MG TABLET PO ×2 (09:55→12:55)
[2025-04-28] MEDS: FENOFIBRATE 134MG CAPSULE 134 MG PO (09:55)
[2025-04-28] MEDS: BISOPROLOL 5MG TABLET 2.5 MG PO (09:56)
[2025-04-28] MEDS: NYSTATIN CREAM 30GM/TUBE TP (11:12)
[2025-04-28] MEDS: OXcarbazepine 300MG TABLET 300 MG PO (11:12)
[2025-04-28 12:00] VITALS: BP 152/72; PULSE 72; RESP 16; TEMP 36.8; O2SAT 95
[2025-04-30 16:10] LABS: Free Valproic Acid (Depakote) 26.2 ug/mL (6.0-22.0)
--- NOTE | 2025-05-02 10:33 | SW/DCPLANNER ---
Phoned patient x2. Voice mail box has not been sat up yet. Anup Loera
== END 2025-04-28 17:30 | disposition home or self-care (01) | DRG 92 ==
LOC: ER 22:21 → 2ND 22:40
PROVIDERS: Nurse Practitioner Family; Physician Assistant; Admitting Provider Internal Medicine Adolescent Medicine; Emergency Provider Emergency Medicine; PCP Nurse Practitioner Family; Visit Provider Internal Medicine Adolescent Medicine
DX: G92.8 Other toxic encephalopathy (principal); E72.20 Disorder of urea cycle metabolism, unspecified; N17.9 Acute kidney failure, unspecified; N39.0 Urinary tract infection, site not specified; I25.10 Atherosclerotic heart disease of native coronary artery without angina pectoris; G40.909 Epilepsy, unspecified, not intractable, without status epilepticus; T42.6X5A Adverse effect of other antiepileptic and sedative-hypnotic drugs, initial encounter; E78.5 Hyperlipidemia, unspecified; E03.9 Hypothyroidism, unspecified; J44.9 Chronic obstructive pulmonary disease, unspecified; I48.91 Unspecified atrial fibrillation; K21.9 Gastro-esophageal reflux disease without esophagitis; M19.90 Unspecified osteoarthritis, unspecified site; I25.2 Old myocardial infarction; M81.0 Age-related osteoporosis without current pathological fracture; G43.909 Migraine, unspecified, not intractable, without status migrainosus; F32.A Depression, unspecified; Z79.899 Other long term (current) drug therapy; Z79.51 Long term (current) use of inhaled steroids; Z79.890 Hormone replacement therapy; Z79.82 Long term (current) use of aspirin; Z95.810 Presence of automatic (implantable) cardiac defibrillator; Z90.49 Acquired absence of other specified parts of digestive tract; Z88.8 Allergy status to other drugs, medicaments and biological substances; Z88.2 Allergy status to sulfonamides; Z88.0 Allergy status to penicillin; Z90.710 Acquired absence of both cervix and uterus; Z82.49 Family history of ischemic heart disease and other diseases of the circulatory system; Z83.3 Family history of diabetes mellitus; Z81.8 Family history of other mental and behavioral disorders
CPT/HCPCS: 36415; 70450; 71275; 74177; 80048; 80053; 80165; 81001; 82140; 82550; 82803; 83690; 83735; 83880; 84145; 84436; 84443; 84479; 84484; 85025; 85610; 85651; 85730; 86140; 86803; 87086; 87389; 87633; 93005; 94640; J0696; J1644; J7030; Q9967

== ENCOUNTER 2025-06-19 13:23 | Emergency (ER) | payer MEDICARE, MEDICAID, SELFPAY ==
--- OUTSIDE RECORDS SUMMARY | 2025-05-22 15:00 | XMS_ITS | Encounter Summary ---
Author Organization [facility] Address [address] [place] [address] Care Team Providers Care Crystal Gazer Name Role Phone Marly Kumar APRN Primary Care Provider [phone] Reason for Visit * Reason Comments Pacemaker Check Hospital Follow Up Visit Pt states she w as recently in [facility] and [facility] for elevated ammonia levels. Encounter Details Date Type Department Care Team (Latest Contact Info) Description 05/22/2025 3:00 PM EDT Office Visit [facility] C[facility] [address] [place] [address] Dinorah Christiansen MD [address] [place], [place] [id number] Elevated troponin (Primary Dx); Coronary artery disease involving [place] coronary artery of [place] heart without angina pectoris; Automatic implantable cardiac [...] Visit Pt states she was recently in [facility] and [facility] for elevated ammonia levels. Subjective History of Present Illness Mu Perkins is a 69 y.o. female who presents today for follow-up from ER visit. Had elevated ammonia levels at [facility]. Troponin was up too. No [...] the tongue as needed for angina, may [id number] for up three doses, Disp: 25 tablet, Rfl: 5 ??? nystatin (MYCOSTATIN) 215527 UNIT/GM cream, Apply 2 applications topically daily [...] Day; Future 2. Coronary artery disease involving [place] coronary artery of [place] heart without angina pectoris - Stress Test [...] for results of testing, Patient OK with MORTGAGE CONSULTANT visit. Mary Ellen Christiansen MD Cardiology and Sleep [facility] 05/22/2025 Please note that this explicitly excludes time spent on other separate billable services such as performing procedures or test interpretation, when applicable. This note was created using dictation software which occasionally transcribes nonsensical phrases. Please contact the provider if any clarification is needed. documented in this encounter Plan of Treatment Upcoming Encounters Date Type Department Care Team (Late st Contact Info) Description 09/20/2025 2:30 PM EST Office Visit [facility] [address] [address] Kailey Porras APRN [address] [place] [address] 09/20/2025 2:30 PM EST Clinical Support No Requirements [facility] [address] [address] documented as of this encounter Results * [...] abnormal blood chemistry Coronary artery disease involving [place] coronary artery of [place] heart without angina pectoris Automatic implantable cardiac defibrillator in situ Elevated troponin Other abnormal blood chemistry Coronary artery disease involving [place] coronary artery of [place] heart without angina pectoris documented in this encounter Care Teams Crystal Gazer Relationship Specialty Start Date End Date Marly Kumar APRN [address] [place] [address] PCP - General Family Medicine 07/06/24 documented as of this encounter
--- OUTSIDE RECORDS SUMMARY | 2025-06-01 07:58 | XMS_ITS | Encounter Summary ---
Author Organization [facility] Address [address] [place] [address] Care Team Providers Care Hook And Eye Machine Operator Name Role Phone Marly Kumar TEACHING ASSISTANT Primary Care Provider [phone] Encounter Details Date Type Department Care Team (Latest Contact Info) Description 06/01/2025 7:58 AM EDT - 06/01/2025 11:59 PM EDT Hospital Encounter [facility] [address] [place] [address] [address] [place] [address] Elevated troponin; Coronary artery disease involving [place] coronary artery of one[place] heart without angina pectoris Discharge Disposition: Home [...] tablet by mouth every night at bedtime. Bisoprolol Fumarate 2.5 MG tabletIndications:C oronary artery disease involving [place] coronary artery of [place] heart without angina pectoris,Ventricula r tachycardia (paroxysmal),Sustai jigar SVT Take 2.5 mg by mouth Daily. 30 tablet 11 5 budesonide-formoter ol (SYMBICORT) 160-4.5 MCG/ACT inhaler Inhale [...] doses 25 tablet 5 5 nystatin (MYCOSTATIN) 899234 UNIT/GM cream Apply 2 applications topically daily [...] TABLET EVERY SIX HOURS NEEDED FOR PAIN magnesium oxide (MAG-OX) 400 MG tabletIndications:H ypomagnesemia Take 1 tablet by mouth Daily. 30 tablet 11 4 06/09/20 25 documented as of this encounter Plan of Treatment Upcoming Encounters Date Type Department Care Team (Late st Contact Info) Description 09/20/2025 2:30 PM EST Office Visit [facility] [address] [address] Kailey Porras APRN [address] [place] [address] 09/20/2025 2:30 PM EST Clinical Support No Requirements [facility] [address] [place] [address] documented as of this encounter Procedures Procedure Name Priority Date/Time Associated Diagnosis Comments OUTSIDE NON-INVASIVE CARDIOLOGY STUDY Routine 06/01/2025 7:58 AM EDT Elevated troponin Coronary artery disease involving one[place] coronary artery of one[place] heart without angina pectoris documented in this encounter Results * External Stress Procedure (06/01/2025 7:58 AM EDT) Narrative 06/01/2025 7:58 AM EDT This procedure was auto-finalized with no dictation required. Procedure Note 06/01/2025 This procedure was auto-finalized with no dictation required. us Dinorah K Waespe MD CV CARDIAC SERVICES ORDERABL ES Final Result documented in this encounter Visit Diagnoses Diagnosis Elevated troponin Other abnormal blood chemistry Coronary artery disease involving [place] coronary artery of one[place] heart without angina pectoris documented in this encounter Care Teams Hook And Eye Machine Operator Relationship Specialty Start Date End Date José Marly Kaity, SHAKIRA [address] [place] [address] PCP - General Family Medicine 07/06/24 documented as of this encounter
--- OUTSIDE RECORDS SUMMARY | 2025-06-13 14:15 | XMS_ITS | Encounter Summary ---
Author Organization [facility] Address [address] [place] [id number] Care Team Providers Care Photoengraving Machine Operator/Tender Name Role Phone Marly Kumar SHAKIRA Primary Care Provider [phone] Reason for Visit * Reason Comments Coronary Artery Disease Pt is here for a CAD follow up. Nuclear stress test results in chart. Pt denies chest pain, no falls. Pt states she has SOA, dizziness, palpitations, swelling of lower legs. Encounter Details Date Type Department Care Team (Latest Contact Info) Description 06/13/2025 2:15 PM EDT Office Visit [facility] CARDIOLOGY [address] [place] [address] Kailey Porras APRN [address] [place] [id number] Atherosclerosis of ute coronary artery of ute heart with stable angina pectoris; Automatic implantable [...] Disp: 25 tablet, Rfl: 5 nystatin (MYCOSTATIN) [id number] UNIT/GM cream, Apply 2 applications topically daily [...] orders for this visit: 1. Atherosclerosis of ute coronary artery of ute heart with stable angina pectoris 2. Automatic [...] for w/ ICD check. Patient or patient credit and collections representative verbalized consent for the use of Ambient [...] Description 09/20/2025 2:30 PM EST Office Visit [facility] CARDIOLOGY [address] [place] [address] Kailey Porras APRN [address] [place] [address] 09/20/2025 2:30 PM EST Clinical Support No Requirements [facility] [address] [place] [address] documented as of this encounter Visit Diagnoses Diagnosis Atherosclerosis of ute coronary artery of ute heart with stable angina pectoris Automatic implantable cardiac defibrillator in situ Localized edema Edema documented in this encounter Care Teams Photoengraving Machine Operator/Tender Relationship Specialty Start Date End Date Marly Kumar APRN [address] [place] [address] PCP - General Family Medicine 07/06/24 documented as of this encounter
[2025-06-19] VITALS (11 sets, daily range): BP systolic 109–168; BP diastolic 61–91; PULSE 62–67; RESP 15–20; TEMP 36.6–36.9; O2SAT 95–98; BMI 34.9
--- NOTE | 2025-06-19 13:33 | ECG_ITS ---
APPROVED REPORT Exam: Resting ECG HR:65 bpm ECG Measurements Heart Rate [address] 153 P 57 QRSd 75 QRS 22 QT 383 T 22 QTc 394 Conclusion Normal sinus rhythm Normal axis Normal intervals NO STEMIU Electronically signed by : Renato Anderson, 06/19/2025 17:35:06
--- NOTE | 2025-06-19 13:50 | XR_ITS ---
FINAL REPORT CLINICAL HISTORY: Nonspecific chest pain COMPARISON: 03/29/2025 FINDINGS: The heart size is normal. A left-sided pacer is present. The mediastinum is normal. There is no focal infiltrate or edema. Chronic scarring is noted in the lung bases. There are no pleural effusions. There is no pneumothorax. There is no osseous abnormality. IMPRESSION: No acute cardiopulmonary process Reviewed, Interpreted and Dictated by Jagdish Asif MD Transcribed by Jazzmine Colindres Authenticated and [facility]
--- OUTSIDE RECORDS SUMMARY | 2025-06-19 13:53 | XMS_ITS | Encounter Summary ---
Author Organization [employer] ([place], [place], [place], [place]) Address [address] [place] [address] Care Team Providers Care Bull Fiddle Player Name Role Phone Marly Kumar SEAFOOD CLERK Primary Care Provider [phone] Encounter Details Date Type Department Care Team (Late st Contact Info) Description 07/26/2020 Transcribed Document [facility] Family Medicine [facility] [place] [address] ProviderMiya MD [address] [place], [place] [address] Social History Tobacco Use Types Packs/Day Years [...] On: 07/26/2020 15:58 EDT by EDISON FONTANEZ, RN-Broadcast Traffic Coordinator Initial Assessment I Previously Documented Living Environment [...] Is Guardianship Needed : No EDISON FONTANEZ, RN-Broadcast Traffic Coordinator - 07/26/2020 15:58 EDT Initial Assessment II Sensory and Motor Deficits : Weakness Deficit Description : uses a wheelchair for mobility Current Home Treatments and Equipment : Wheelchair Services and Community Resources : Transportation assistance Services and Community Resources Addl Comments : [facility] phone [phone] fax [phone] [employer] [facility] phone [phone] / [phone] Does the Patient have a Floor to SNF Benefit? : No EDISON FONTANEZ, RN-Broadcast Traffic Coordinator - 07/26/2020 15:58 EDT Discharge Needs I Anticipated Discharge Date : 07/28/2020 EDT Anticipated Discharge To, : Extended Care Facility Current Home Treatment/Equipment : Current Home Treatment/Equipment No qualifying data available. Post Acute/Home Treatments : None Documentation Status Complete : Yes EDISON FONTANEZ RN-Broadcast Traffic Coordinator - 07/26/2020 15:58 EDT Discharge Needs II Professional Skilled Services : Professional Skilled Services No qualifying data available. Needs Assistance with Transportation : Yes EDISON FONTANEZ RN-Broadcast Traffic Coordinator - 07/26/2020 15:58 EDT Narrative Note Narrative Note : Pt from [facility]. Called Em at [facility]. She stated that pt has a bedhold. She stated that pt travels using [employer] (the bus). She stated that pt can return to the facility when she is discharged. EDISON FONTANEZ RN-Broadcast Traffic Coordinator - 07/26/2020 15:58 EDT documented in this encounter Plan of Treatment Upcoming Encounters Date Type Department Care Team (Late st Contact Info) Description 07/10/2025 10:00 AM EDT Office Visit [facility] Neurology [address] [place] [address] Rad Duong MD [address] [place], [place] [id number] documented as of this encounter Visit Diagnoses Not on filedocumented in this encounter Care Teams Bull Fiddle Player Relationship Specialty Start Date End Date Marly Kumar, DUNG [address] [place] [id number] PCP - General Nurse Practitioner 09/22/24 documented as of this encounter
--- OUTSIDE RECORDS SUMMARY | 2025-06-19 13:53 | XMS_ITS | Encounter Summary ---
Author Organization [facility] Address [address] [place] [address] Care Team Providers Care Anchor Tacker Name Role Phone Pcp, No Primary Care Provider Unavailabl e Jessie Payne PULVERIZER Unavailable Marly Kumar PULVERIZER Primary Care Provider [phone] Reason for Referral * Consultation (Routine) - Authorized Specialty Diagnoses / Procedures Referred By Contact Referred To Contact Physical Medicine and Rehabilitation Diagnoses Numbness Numbness and tingling Carpal tunnel syndrome, bilateral Cynthia Garay MD [address] [place] [address] [place] [address] Phone: tel:[phone] fax:[phone] [facility] [address] [place] [place] [address] Phone: tel: fax: Referral ID Status Reason Start Date Expiration Date Visits Requested Visits Authorized [id number] Authorized Specialty Services Required 06/02/2025 12/02/2026 1 1 Encounter Details Date Type Department Care Team (Late st Contact Info) Description 06/02/2025 Community [facility] Community Practice [address] [place] [address] Cynthia Garay MD [address] [place] [address] Numbness (Primary Dx); Numbness and tingling; Carpal tunnel syndrome, bilateral Social History Tobacco Use Types Packs/Day Years [...] drink first t zander in the morning (EYE-BANK OFFICER) to steady your nerves or to get [...] Care Team (Late st Contact Info) Description 08/11/2025 3:30 PM EDT Procedure Visit [facility] [address] [place] [address] Nolan Cooney S, DO [address] [place] [address] Scheduled Referrals Name Type Priority Associated Diagnoses Order Schedule Ambulatory referral to Physical Medicine Rehab Outpatient Referral Routine Numbness Numbness and tingling Carpal tunnel syndrome, bilateral Expected: 06/02/2025 (Approximate), Expires: 12/04/2026 documented as of this encounter Visit Diagnoses Diagnosis Numbness- Primary Disturbance of skin sensation Numbness and tingling Disturbance of skin sensation Carpal tunnel syndrome, bilateral Carpal tunnel syndrome documented in this encounter Additional Health Concerns Assessment Noted Time A Body Mass Index follow-up plan has been documented for the patient 08/14/2023 12:22 PM EDT documented as of this encounter Care Teams Anchor Tacker Relationship Specialty Start Date End Date Pcp, No [address] [place] [address] PCP - General Family Medicine 08/07/23 06/08/25 Marly Kumar APRN [address] [place] [address] PCP - General 06/09/25 Jessie Payne APRN [address] [place] [address] 08/07/23 documented as of this encounter
--- OUTSIDE RECORDS SUMMARY | 2025-06-19 13:53 | XMS_ITS | Encounter Summary ---
Author Organization [employer] ([place], [place], [place], [place]) Address [address] [place] [address] Care Team Providers Care Line Worker Name Role Phone Marly Kumra STATE FARM AGENT TEAM MEMBER Primary Care Provider [phone] Encounter Details Date Type Department Care Team (Late st Contact Info) Description 07/26/2020 Transcribed Document [facility] Family Medicine [facility] [address] ProviderMiya MD [address] [place] [id number] Social History Tobacco Use Types Packs/Day Years Used Date Smoking Tobacco: Never Assessed Comments Unknown Sex and Gender Information Value Date Recorded Sex Assigned at Female 05/01/2022 3:59 PM CDT Legal Sex Female 1:54 PM CDT Gender Identity Female 05/01/2022 3:59 PM CDT Sexual Orientation Not on file documented as of this encounter Miscellaneous Notes * Cerner Conversion Note - Historical ProviderMD - 07/26/2020 4:24 PM CDT Admission [...] Services : Nursing, Occupational therapy, Physical Therapy, business practices supervisor, Respiratory Therapy, Producer Director Courtney Kearns RN - 07/26/2020 16:24 EDT General Info Arrived From : [facility] binder [facility] Mode of Arrival on Unit : Wheelchair Patient Arrival Date/Time : 07/26/2020 12:00 EDT Legal Guardian : Care provider Legal Guardian : No Support Person/Patient Drilling Superintendent : No Support Person/Pt Rep Name : [facility] [phone] Want Family/Rep/Phys Notified of Admit : No Emergency Contact #1 : Mckenna Mata Emergency Contact #1 Emergency Contact #1 Relationship : daughter Emergency Contact #2 : n/a Emergency Contact #2 Phone Number : n/a Emergency Contact #2 Relationship : n/a Information Obtained From : Medical Record Primary Language : Venezuelan Preferred Communication Mode : Verbal Communication Barrier : None Lathe Operator Contact Lens Needed : No Objects to Sharing Info [...] Level : 46 or > High Risk [place] Fall Interventions : Adequate lighting, Bed in [...] Source : Stated Height Entry Format : [place] Height, Feet : 4 ft(Converted to: 122 cm, 48 Inch) Height, Inches : 11 Inch(Converted to: 0 ft 11 Inch, 27.94 cm) Clinical Height : 149.86 cm Weight Source : Stated [place] Body Weight : 43 kg Courtney Kearns RN - 07/26/2020 16:24 EDT Estimated Weight Type of Weight Measurement Est : [place] Weight, est lb : 245 lb(Converted to: [...] Assessment : Pt transferred from SNF, LTC, [facility], or rehab hospital Active Surveillance Screen Positive [...] Courtney Kearns RN - 07/26/2020 16:24 EDT [place] Suicide Severity Rating Scale (C-SSRS) CSSRS Past [...] Score : 2 Courtney Kearns RN - 07/26/2020 16:24 EDT Spiritual/Cultural Needs Significant Loss/Crisis in Past 3 Years : No Significant Distress/Coping/Need Support : No Any Spiritual/Cultural Needs or Requests : No Courtney Kearns RN - 07/26/2020 16:24 EDT Valuables and Belongings Valuables and Belongings : Clothing Clothing : Common streetwear Clothing Disposition : Bedside Courtney Kearns RN - 07/26/2020 16:24 EDT Electronically signed by [facility] Conversion Geospatial Technologist Cerner at 02/19/2023 6:44 PM CDT documented in this encounter Plan of Treatment Upcoming Encounters Date Type Department Care Team (Late st Contact Info) Description 07/10/2025 10:00 AM EDT Office Visit [facility] Neurology [address] [facility] [address] [place] [address] Rad Duong MD [address] [place] [address] documented as of this encounter Visit Diagnoses Not on filedocumented in this encounter Care Teams Line Worker Relationship Specialty Start Date End Date Marly Kumar, DUNG [address] [place] [address] PCP - General Nurse Practitioner 09/22/24 documented as of this encounter
--- OUTSIDE RECORDS SUMMARY | 2025-06-19 13:53 | XMS_ITS | Encounter Summary ---
Author Organization [employer] ([place], [place], [place], [place]) Address [address] [place] [address] Care Team Providers Care Body Repairer Name Role Phone Marly Kumar SEATING AND MOBILITY TECHNOLOGIST Primary Care Provider [phone] Encounter Details Date Type Department Care Team (Late st Contact Info) Description 07/26/2020 Transcribed Document [facility] [place] [facility] [place] [address] ProviderMiya MD [address] [place] [address] [phone] Social History Tobacco Use Types Packs/Day Years [...] DATE OF ADMISSION: 07/26/2020 ADMITTING PHYSICIAN: YADI DUONG MD REASON FOR ADMISSION: Intractable epilepsy. HISTORY: [...] the upper and lower extremities. COORDINATION: Normal [id number]. IMPRESSION: Ms. Perkins has a long history [...] mg IV for repetitive or prolonged seizures. /[id number] Yadi Duong MD TAF/AQ / TAF / MODL Electronically signed by Celestine, [facility] Conversion Commissioner Of Internal Revenue Cerner at 02/19/2023 6:42 PM CDT documented in this encounter Plan of Treatment Upcoming Encounters Date Type Department Care Team (Late st Contact Info) Description 07/10/2025 10:00 AM EDT Office Visit [facility] Neurology [address] [facility] [place] [address] Yadi Duong MD [address] [facility] [place] [address] documented as of this encounter Visit Diagnoses Not on filedocumented in this encounter Care Teams Body Repairer Relationship Specialty Start Date End Date Marly Kumar, DUNG [address] [place] [address] PCP - General Nurse Practitioner 09/22/24 documented as of this encounter
--- OUTSIDE RECORDS SUMMARY | 2025-06-19 13:53 | XMS_ITS | Clinical Summary ---
Author Organization [facility] Address [address] [place] [address] Care Team Providers Care Research Programmer Name Role Phone Jessie Payne TERRAZZO POLISHER HELPER Unavailable [phone] José Marly Nancy TERRAZZO POLISHER HELPER Primary Care Provider [phone] Allergies Active Allergy Reactions Criticality Noted Date [...] forehead Admitted SGT 2 Tertiary exam 08/08 Encounters Date Type Department Care Team Description 06/02/2025 [facility] [address] [place] [phone] Cynthia Garay MD Numbness (Primary Dx); Numbness and tingling; Carpal tunnel syndrome, bilateral from Last 3 Months Immunizations Immunization Administration Dates Next Due Influenza, [...] drink first t zander in the morning (EYE-LABEL PRESS OPERATOR) to steady your nerves or to get [...] 08/08/2023 2:41 AM EDT Plan of Treatment Upcoming Encounters Date Type Department Care Team (Late st Contact Info) Description 08/11/2025 3:30 PM EDT Procedure Visit [facility] [address] [place] [address] Nolan Cooney S, DO [address] [place] [address] Health Maintenance Due Date Last Done Comments [facility]-Bone Density Scan 1953 [facility]-Depression Screening 1953 [facility]-Hepatitis C Screening 1953 [facility]-Medicare Annual Wellness (AWV) 1953 [facility]-/Child/Adol SDOH Screenings 1953 [facility]- SDOH Screenings 1971 [facility]-Adult SDOH Screenings 1971 CT Colonography 1998 Colonoscopy 1998 FIT-DNA 1998 FIT 1998 FOBT 1998 Sigmoidoscopy 1998 [facility]-Colorectal Cancer Screening 1998 [facility]-Breast Cancer Screening 2003 [facility]-XARYQ-70 Vaccine ( season) 2024 09/09/2021, 12/05/2020, 11/15/2020 [facility]-Influenza Vaccine (#1) 07/03/202509/08, 08/18/2022, 08/11/2014, Additional history exists [facility]-DTaP,Tdap,and Td Vaccines (3 - Td or Tdap) 05/10/2035 05/10/2025, 08/07/2023 [facility]-Obesity Intervention Completed 08/14/2023 [facility]-Pneumococcal Vaccine: 50+ Years Completed 05/17/2024 [facility]-RSV Vaccine: 60+ Years or Completed 09/08/2024 [facility]-Zoster Vaccines Completed 12/28/2024, HPV Vaccines Aged Out No longer eligi [...] patient's age to complete this topic Insurance [place] [employer] MEDICAID OUT OF STATE MEDICARE [place]ICAID-[place] Advance Directives * Full Code (Latest Code Status on File) Date Activated Date Inactivated Comments 08/07/2023 11:31 PM 08/08/2023 9:21 PM Question Answer Comments Patient has decision-making capacity? Yes Care Teams Research Programmer Relationship Specialty Start Date End Date Marly Kumar APRN [address] [place] [address] PCP - General 06/09/25 Jessie Payne APRN [address] [place] [place] [address] 08/07/23
--- OUTSIDE RECORDS SUMMARY | 2025-06-19 13:53 | XMS_ITS | Encounter Summary ---
Author Organization [employer] ([place], [place], [place], [place]) Address [address] [place] [address] Care Team Providers Care Cherry Grower Name Role Phone Marly Kumar FOREST ECOLOGY PROFESSOR Primary Care Provider [phone] Encounter Details Date Type Department Care Team (Late st Contact Info) Description 07/26/2020 Transcribed Document [facility] [place] [address] ProviderMiya MD [address] [place] [address] [phone] Social History Tobacco Use Types Packs/Day Years [...] On: 07/26/2020 16:03 EDT by EDISON FONTANEZ, RN-Stone BankerWindow Cutter Progress Note Discharge Arrangements : Patient Post-Acute [...] Attend Multidisciplinary Rounds? : No EDISON FONTANEZ, RN-Stone Banker - 07/26/2020 16:03 EDT Narrative Progress Note Narrative Progress Note : On continuous EEG monitoring. EDISON FONTANEZ, RN-Stone Banker - 07/26/2020 16:03 EDT Electronically signed by [facility], [facility] Conversion Lead Advisor Cerner at 02/19/2023 6:34 PM CDT documented in this encounter Plan of Treatment Upcoming Encounters Date Type Department Care Team (Late st Contact Info) Description 07/10/2025 10:00 AM EDT Office Visit [facility] Neurology [address] [facility] [address] [place] [address] Rad Duong MD [address] [facility] [address] [place], [place] [id number] documented as of this encounter Visit Diagnoses Not on filedocumented in this encounter Care Teams Cherry Grower Relationship Specialty Start Date End Date Marly Kumar NP [address] [place] [address] PCP - General Nurse Practitioner 09/22/24 documented as of this encounter
--- OUTSIDE RECORDS SUMMARY | 2025-06-19 13:53 | XMS_ITS | Encounter Summary ---
Author Organization [employer] ([place], [place], [place], [place]) Address [address] [place] [address] Care Team Providers Care Power Shovel Mechanic Name Role Phone Marly Kumar BENCH HAND Primary Care Provider [phone] Encounter Details Date Type Department Care Team (Late Contact Info) Description 07/26/2020 Transcribed Document [facility] [place] [facility] [place] [address] ProviderMiya MD [address] [place] [address] [phone] Social History Tobacco Use Types Packs/Day Years [...] On: 07/26/2020 11:36 EDT by Jerry Hewitt MESH CUTTER LEAD Meds to Bed Enrollment Patient Enrollment Decision: : Yes/enroll in meds to bed program Jerry Hewitt MESH CUTTER LEAD - 07/26/2020 14:08 EDT documented in this encounter Plan of Treatment Upcoming Encounters Date Type Department Care Team (Late st Contact Info) Description 07/10/2025 10:00 AM EDT Office Visit [facility] Neurology [address] [facility] [address] [place] [address] Rad Duong MD [address] [place] [address] documented as of this encounter Visit Diagnoses Not on filedocumented in this encounter Care Teams Power Shovel Mechanic Relationship Specialty Start Date End Date Marly Kumar, DUNG [address] [place], [place] [id number] PCP - General Nurse Practitioner 09/22/24 documented as of this encounter
--- OUTSIDE RECORDS SUMMARY | 2025-06-19 13:54 | XMS_ITS | Encounter Summary ---
Author Organization [facility] Address [address] [place] [address] Care Team Providers Care Marketing Database Consultant Name Role Phone Marly Kumarshanika ROSENBERG Primary Care Provider [phone] Encounter Details Date Type Department Care Team (Late st Contact Info) Description 06/05/2025 Telephone [facility] CARDIOLOGY [address] [place] [address] Kailey Porras APRN [address] [place] [address] Social History Tobacco Use Types Packs/Day [...] encounter Miscellaneous Notes * Telephone Encounter - Yulissa Queen RN - 06/05/2025 10:56 AM EDT Pt has an appointment scheduled for 06/13/25 @ 2:15PM with Mira Porras APRN. Related results will be reivewed with pt that day. She verbalizes iunderstanding. * Telephone Encounter - Miryam Blanton RegSched Rep - 06/05/2025 10:45 AM EDT PT CALLED BACK LVM PT STATED SHE MISSED A CALL SHE HAS HER PHONE TURNED UP NOW SO SHE WON'T MISS THE NEXT CALL. SHE WOULD LIKE A CALL BACK. * Telephone Encounter - Yulissa Queen RN - 06/05/2025 10:37 AM EDT LVM for pt to call back. * Telephone Encounter - Miryam Blanton RegSched Rep - 06/05/2025 10:06 AM EDT PT CALLED BACK LVM ASKING FOR A CALL BACK. THANKS. * Telephone Encounter - Yulissa Queen RN - 06/05/2025 9:08 AM EDT LVM for pt to call back. * Telephone Encounter - Peyton Zimmerman RegSched Rep - 06/05/2025 8:33 AM EDT Pt called and LVM regarding her stress test results. She is asking for a call back when possible, documented in this encounter Plan of Treatment Upcoming Encounters Date Type Department Care Team (Late st Contact Info) Description 09/20/2025 2:30 PM EST Office Visit [facility] CARDIOLOGY [address] [place] [address] Kailey Porras APRN [address] [place] [address] 09/20/2025 2:30 PM EST Clinical Support No Requirements [facility] CARDIOLOGY [address] [place] [address] documented as of this encounter Visit Diagnoses Not on filedocumented in this encounter Care Teams Marketing Database Consultant Relationship Specialty Start Date End Date Marly Kumar, PHYSIOTHERAPY PRACTICE MANAGER [address] [place] [address] PCP - General Family Medicine 07/06/24 documented as of this encounter
--- OUTSIDE RECORDS SUMMARY | 2025-06-19 13:54 | XMS_ITS | Encounter Summary ---
Author Organization [facility] Address [address] [place] [address] Care Team Providers Care Horticultural Technical Officer Name Role Phone Marly Kumar SHAKIRA Primary Care Provider [phone] Reason for Visit * Reason Onset Date Comments Kimberley BARCLAY - SCHEDULING REQUEST 04/24/2025 Encounter Details Date Type Department Care Team (Late st Contact Info) Description 04/24/2025 Telephone [facility] CARDIOLOGY [address] [place] [address] Sarah Barclay APRN [address] [place] [address] Kimberley BARCLAY - SCHEDULING REQUEST Social History Tobacco Use Types Packs/Day Years Used Date Smoking Tobacco: Former Cigarettes Passive Smoke Exposure: Past Smokeless Tobacco: Never Alcohol Use Standard Drinks/Week Comments Yes 0 (1 standard drink = 0.6 oz pur e alcohol) social Abuse Screen Answer Date Recorded Feels Unsafe [...] encounter Miscellaneous Notes * Telephone Encounter - Joseph Orr RegSched Rep - 04/24/2025 9:57 AM EDT Caller: Mu Perkins Relationship: Self Best call back number: [phone] What is the best time to reach you: ANY Who are you requesting to speak with (clinical staff, provider, specific staff member): ACADEMIC DEAN What was the call regarding: PT HAD TO CANCEL DEVICE CHECK AND F/U 6.25. PLEASE CALL PT TO SCHEDULE NEXT DEVICE CHECK/FU. documented in this encounter Plan of Treatment Upcoming Encounters Date Type Department Care Team (Late st Contact Info) Description 09/20/2025 2:30 PM EST Office Visit [facility] CARDIOLOGY [address] [facility] [place] [address] Kailey Porras APRN [address] [place] [address] 09/20/2025 2:30 PM EST Clinical Support No Requirements [facility] CARDIOLOGY [address] [place] [address] documented as of this encounter Visit Diagnoses Not on filedocumented in this encounter Care Teams Horticultural Technical Officer Relationship Specialty Start Date End Date Marly Kumar APRN [address] [place] [address] PCP - General Family Medicine 07/06/24 documented as of this encounter
--- OUTSIDE RECORDS SUMMARY | 2025-06-19 13:54 | XMS_ITS | Encounter Summary ---
Author Organization [employer] ([place], [place], [place], [place]) Address [address] [place] [address] Care Team Providers Care Heat Sealing Machine Operator Name Role Phone Marly Kumar PRESIDENT/GM PRODUCTION & LIVE EXPERIENCES Primary Care Provider [phone] Encounter Details Date Type Department Care Team (Late st Contact Info) Description 07/28/2020 Transcribed Document [facility] [place] Medicine [facility] [place] [address] ProviderMiya MD [facility] [place] [address] Social History Tobacco Use Types [...] Description 07/10/2025 10:00 AM EDT Office Visit [facility] Neurology [address] [facility] [address] [place] [address] Rad Duong MD [address] [facility] [address] [place] [address] documented as of this encounter Visit Diagnoses Not on filedocumented in this encounter Care Teams Heat Sealing Machine Operator Relationship Specialty Start Date End Date Marly Kumar, DUNG [address] [place] [id number] PCP - General Nurse Practitioner 09/22/24 documented as of this encounter
--- OUTSIDE RECORDS SUMMARY | 2025-06-19 13:54 | XMS_ITS | Encounter Summary ---
Author Organization [employer] ([place], [place], [place], [place]) Address [address] [place] [address] Care Team Providers Care Repair Service Clerk Name Role Phone Marly Kumar FLOUR BLENDER Primary Care Provider [phone] Encounter Details Date Type Department Care Team (Late st Contact Info) Description 07/28/2020 Transcribed Document [facility] [place] Medicine [facility] [place] [address] ProviderMiya MD [address] [place] [phone] Social History Tobacco Use Types Packs/Day Years [...] On: 07/28/2020 13:07 EDT by JENNIFER TRUJILLO RN-Regulatory Leader Final Discharge Planning Discharge Arrangements : Patient Post-Acute Information Patient Name: RENNY VILLA Gender: Female : [birth year] Age: 64 Years No Post-Acute Placement(s) Listed No Post-Acute Service(s) Listed No [place] Referral(s) Listed Patient Offered Choice/Affiliations Explained : No Discharge Transportation Arrangement Cmt : [place] transportation Follow Up Appointment Scheduled : No (Comment: List of appointments sent to Patient Access Center [JENNIFER TRUJILLO RN-Regulatory Leader - 07/28/2020 13:07 EDT] ) Is Patient High/Moderate Readmission Risk? : No Patient/Family Notified of Plan : Yes Is Patient Ready for Discharge? : Yes Physician Notified Patient is Ready for Discharge? : Yes Discharge To Care Management : SNF with Medicare Certification-03 JENNIFER TRUJILLO RN-Regulatory Leader - 07/28/2020 13:07 EDT Final Narrative Note Final Narrative Note : Discharged back to [facility]. Transportation by [place] Transport JENNIFER TRUJILLO RN-Regulatory Leader - 07/28/2020 13:07 EDT documented in this encounter Plan of Treatment Upcoming Encounters Date Type Department Care Team (Late st Contact Info) Description 07/10/2025 10:00 AM EDT Office Visit [facility] Neurology [address] [facility] [address] [place] [address] Rad Duong MD [address] [facility] [address] [place], [place] [phone] documented as of this encounter Visit Diagnoses Not on filedocumented in this encounter Care Teams Repair Service Clerk Relationship Specialty Start Date End Date Marly Kumar NP [address] [place] [address] PCP - General Nurse Practitioner 09/22/24 documented as of this encounter
--- OUTSIDE RECORDS SUMMARY | 2025-06-19 13:54 | XMS_ITS | Encounter Summary ---
Author Organization [employer] ([place], [place], [place], [place]) Address [address] [place] [address] Care Team Providers Care Painter Helper Spray Name Role Phone Marly Kumar CHIEF OF HARBOR PATROL Primary Care Provider [phone] Encounter Details Date Type Department Care Team (Late st Contact Info) Description 07/28/2020 Transcribed Document [facility] [place] [facility] [place] [address] ProviderMiya MD [address] [place] [phone] Social History Tobacco Use Types Packs/Day Years [...] EEG-video monitoring was performed using the 32-channel [employer] monitoring system. The seizure detection computer was [...] may be more prominent on the right. /[id number] MD RAPHAEL Esquivel/JOHNNIE / TAF / MODL /[id number] Electronically signed by Klaus Sprague Conversion Supervising Law Enforcement Analyst Cerner at 02/19/2023 6:56 PM CDT documented in this encounter Plan of Treatment Upcoming Encounters Date Type Department Care Team (Late st Contact Info) Description 07/10/2025 10:00 AM EDT Office Visit [facility] Neurology [address] [place] [address] Rad Duong MD [address] [facility] [address] [place] [address] documented as of this encounter Visit Diagnoses Not on filedocumented in this encounter Care Teams Painter Helper Spray Relationship Specialty Start Date End Date Marly Kumar, DUNG [address] [place] [address] PCP - General Nurse Practitioner 09/22/24 documented as of this encounter
--- OUTSIDE RECORDS SUMMARY | 2025-06-19 13:54 | XMS_ITS | Encounter Summary ---
Author Organization [facility] Address [address] [place] [address] Care Team Providers Care Dental Appliance Repairer Name Role Phone Marly Kumar SHAKIRA Primary Care Provider [phone] Encounter Details Date Type Department Care Team (Latest Contact Info) Description 05/22/2025 Travel Social History Tobacco Use Types Packs/Day [...] Description 09/20/2025 2:30 PM EST Office Visit [facility] CARDIOLOGY [address] [place] [address] Kailey Porras APRN [address] [place] [address] 09/20/2025 2:30 PM EST Clinical Support No Requirements [facility] CARDIOLOGY [address] [place] [place] [address] documented as of this encounter Visit Diagnoses Not on filedocumented in this encounter Care Teams Dental Appliance Repairer Relationship Specialty Start Date End Date Marly Kumar, ASSISTANT COUNTY ENGINEER [address] [place] [address] PCP - General Family Medicine 07/06/24 documented as of this encounter
--- OUTSIDE RECORDS SUMMARY | 2025-06-19 13:54 | XMS_ITS | Encounter Summary ---
Author Organization [employer] ([place], [place], [place], [place]) Address [address] [place] [address] Care Team Providers Care Frame Gate Mortiser Operator Name Role Phone Marly Kumar INSTALLER INSPECTOR FINAL Primary Care Provider [phone] Encounter Details Date Type Department Care Team (Late st Contact Info) Description 07/28/[address] [facility] [place] [address] ProviderMiya MD [address] [place] [address] [phone] Social History Tobacco Use Types Packs/Day Years [...] Description 07/10/2025 10:00 AM EDT Office Visit [facility] Neurology [address] [facility] [address] [place] [address] Rad Duong MD [address] [facility] [address] [place] [address] documented as of this encounter Visit Diagnoses Not on filedocumented in this encounter Care Teams Frame Gate Mortiser Operator Relationship Specialty Start Date End Date Marly Kumar NP [address] [place] [address] PCP - General Nurse Practitioner 09/22/24 documented as of this encounter
--- OUTSIDE RECORDS SUMMARY | 2025-06-19 13:54 | XMS_ITS | Clinical Summary ---
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 Active atorvastatin (LIPITOR) 40 MG tablet Take 1 tablet by mouth every night at bedtime. Active budesonide-formot shabbir (SYMBICORT) 160-4.5 MCG/ACT inhaler Inhale 2 puffs 2 (Two) Times a Day. 024 Active fenofibrate (TRICOR) 145 MG tablet Take [...] EVERY SIX HOURS NEEDED FOR PAIN Active QUEtiapine (SEROquel) 25 MG tablet Take 0.5-1 tablets by mouth Daily. Active ondansetron (ZOFRAN) 4 MG tablet Take 1 tablet by mouth Every 8 (Eight) Hours As Needed. Active calcium carb-cholecalcife rol 600-10 MG-MCG tablet per tablet Take 1 tablet by mouth Daily. Active potassium chloride 10 MEQ CR tabletIndications :Localized edema Take 1 tablet by mouth 2 (Two) Times a Day. 60 tablet 6 Active Additional Information Patient taking differently: 20 mEqOral 2 Times Daily, Informant: Self, Reported on 06/13/2025 nitroglycerin (NITROSTAT) 0.4 MG SL tablet 1 under the tongue as needed for angina, may repeat q5mins for up three doses 25 tablet 5 Active furosemide (LASIX) 40 MG tablet Take 1 tablet by mouth 2 (Two) Times a Day. 180 tablet 1 Active albuterol sulfate HFA (Ventolin HFA) 108 (90 Base) MCG/ACT inhaler Inhale 2 puffs 4 (Four) Times a Day. Active Bisoprolol Fumarate 2.5 MG tabletIndications :Coronary artery disease involving teller coronary artery of teller heart without angina pectoris,Ventricu lar tachycardia (paroxysmal),Sust ained SVT Take 2.5 mg by mouth Daily. 30 tablet 11 Active lactulose (CHRONULAC) 10 GM/15ML solution take 15 ML BY MOUTH THREE TIMES A DAY NEEDED FOR CONSTIPATION titrate TO maintain 3-5 bowel movements PER DAY] Active levETIRAcetam (KEPPRA) 1000 MG tablet Take 1 tablet by mouth 2 (Two) Times a Day. Active metoclopramide (REGLAN) 5 MG tablet TAKE ONE TABLET BY MOUTH BEFORE each MEAL Active nystatin (MYCOSTATIN) 265305 UNIT/GM cream Apply 2 applications topically daily to affected areas as needed Active ondansetron ODT (ZOFRAN-ODT) 8 MG disintegrating tablet DISSOLVE ONE TABLET UNDER THE TONGUE every EIGHT hours NEEDED, FOR NAUSEA Active rOPINIRole (REQUIP) 1 MG tablet TAKE ONE TABLET BY MOUTH AT BEDTIME for restless legs Active magnesium oxide (MAG-OX) 400 MG tabletIndications :Hypomagnesemia TAKE ONE TABLET BY MOUTH EVERY DAY 90 tablet 3 025 Active divalproex (DEPAKOTE ER) 500 MG 24 hr tablet Take 1 tablet by mouth 2 (Two) Times a Day. 2024 Discontinued(* Therapy completed) magnesium oxide (MAG-OX) 400 MG tabletIndications :Hypomagnesemia Take 1 tablet by mouth Daily. 30 tablet 11 024 2024 Discontinued OXcarbazepine (TRILEPTAL) 300 MG tablet Take 1 tablet by mouth 2 (Two) Times a Day. 2024 Discontinued(* Therapy completed) midodrine (PROAMATINE) 5 MG tablet Take 1 tablet by mouth 2 (Two) Times a Day. 60 tablet 024 2024 Discontinued(* Therapy completed) rOPINIRole (REQUIP) 0.5 MG tablet TAKE ONE TABLET BY MOUTH EVERY DAY NEEDED for restless legs 025 2024 Discontinued(* Therapy completed) Active Problems Problem Noted Date Diagnosed Date Has a tremor 07/06/2024 Hospital discharge follow-up 07/06/2024 Assessment & Plan (07/06/2024 11:01 AM EDT): [facility] 06/30/2024 ER records reviewed. Patient was dehydrated and had acute renal failure. All diuretics and several blood pressure medications were stopped including her carvedilol. She has an appointment with Dr. Christiansen on 07/25/2024. Based on how patient's blood pressure is doing Dr. Christiansen may want to restart beta-hernando. Hypotension due to drugs 07/06/2024 Assessment & Plan (10/12/2024 11:33 AM EST): Stable with Midodrine Assessment & Plan (10/05/2024 10:33 PM EST): We will double her lasix, midodrine, and potassium and recheck BP in 7-10 days to make sure she does not become hypotensive again with the diuretics. Assessment & Plan (07/06/2024 11:01 AM EDT): Very labile blood pressure. Per Dr. Christiansen restart midodrine 2.5 mg twice daily to help compensate for restarting Lasix. Chronic low back pain 12/23/2023 Chronic obstructive pulmonary disease 08/19/2023 Hypothyroidism 08/19/2023 Gastroesophageal reflux disease without esophagi tis 08/19/2023 Hypokalemia 08/19/2023 Hypomagnesemia 08/19/2023 Insomnia, persistent 08/19/2023 Seasonal allergies 08/19/2023 Automatic implantable cardiac defibrillator in s itu 02/25/2022 Assessment & Plan (03/17/2025 12:43 PM EDT): -PM only check next week -RTC in 6 months for f/u and ICD/PM check Assessment & Plan (10/05/2024 10:34 PM EST): [facility] ICD interrogated in clinic today. SVT times 8 episodes. She said she can tell when it happens but that it doesn't last very long. Benign essential hypertension 02/25/2022 Coronary atherosclerosis 02/25/2022 History of cardiac arrest 02/25/2022 Mixed hyperlipidemia 02/25/2022 Seizure disorder 02/25/2022 Localized edema 02/24/2017 Overview (07/06/2024): Problem Code: 782.3; Problem Code Type: ICD-9; Problem Code: R60.0; Problem Code Type: ICD-10; Assessment & Plan (03/17/2025 12:43 PM EDT): -Taking Lasix 40mg daily with a second one several days a week. Consistently takes Potassium 10 MEQ BID. -Check Potassium level today -Increase Lasix to 40mg BID every day since it helps so much, recheck labs in one week, may need to increase potassium -Gave patient newer copy of letter to allow her to elevate her legs at day center -PM only check next week -RTC in 6 months for f/u and PM check Assessment & Plan (01/04/2025 5:38 PM EST): Increase Lasix from 20 twice daily to 40 in the morning and 20 in the afternoon. Continue potassium. She is going to monitor weight at assisted living. Elevate legs when seated. Exercise and activity will help. Orders: furosemide (LASIX) 20 MG tablet; Take 1 tablet by mouth Take As Directed. Take two in the morning and one in the afternoon potassium chloride 10 MEQ CR tablet; Take 1 tablet by mouth 2 (Two) Times a Day. Assessment & Plan (11/16/2024 10:33 AM EST): Improved. Elevate legs and compression stockings are coming in.. Note to be off from day center until next Thursday and for 3 sets of compression stockings given. Check BMP. Assessment & Plan (10/12/2024 11:32 AM EST): Improved but still present with doubling Lasix, K, and Midodrine. Will recheck in one month. Use compression stockings and elevate legs while at day center. Recheck BMP at follow-up. May need to further increase diuretics/K/Midodrine. Assessment & Plan (10/05/2024 10:33 PM EST): 07/25/24 bilat lower extremity arterials reviewed and are normal. Today she still has bilat LE edema that is a 2 plus nonpitting. Her left back of calf is covered with a bandaid and tape. She said her dog scratched her but that it is healing. Her edema was so bad a few days ago that she said her legs were weeping clear fluid. We will double her lasix, midodrine, and potassium and recheck BP in 7-10 days to make sure she does not become hypotensive again with the diuretics. Assessment & Plan (07/06/2024 11:05 AM EDT): Will restart Lasix at a very low dose to help prevent hypotension or kidney injury. Will titrate up slowly and cautiously. Today will restart Lasix at 20 mg daily and potassium at 10 mEq daily. May need to recheck labs at follow-up. Patient has arterial duplex and follow-up already scheduled with Dr. Christainsen on 07/25/2024. Congestive heart failure 11/20/2016 Overview (07/06/2024): Problem Code: 428.0; Problem Code Type: ICD-9; Resolved Problems Problem Noted Date Diagnosed Date Resolved Date Localized swelling of head 11/12/2023 0 07/06/2024 Hypertensive disorder 08/19/20232023 Memory impairment 08/19/2023 07/06/2024 Acute on chronic systolic heart failure 11/20/2016 07/06/2024 Bronchopneumonia 11/20/2016 07/06/2024 Overview (07/06/2024): Problem Code: J18.0; Problem Code Type: ICD-10; Problem Code: J18.0; Problem Code Type: ICD-10; Pneumococcal pneumonia 11/20/201607/06 Overview (07/06/2024): Problem Code: 481; Problem Code Type: ICD-9; Problem Code: 481; Problem Code Type: ICD-9; Encounters Date Type Department Care Team Description 06/13/2025 2:15 PM EDT Office Visit [facility] [place] [address] Kailey Porras APRN Atherosclerosis of teller coronary artery of teller heart with stable angina pectoris; Automatic implantable cardiac defibrillator in situ; Localized edema 06/13/2025 Travel 06/12/2025 Telephone [facility] [place] [phone] Dinorah Christiansen MD 06/09/2025 Refill [facility] [place] [address] Dinorah Christiansen MD Med Refill 06/05/2025 Telephone [facility] [place] [address] Kailey Porras APRN 06/01/2025 7:58 AM EDT - 06/01/2025 11:59 PM EDT Hospital Encounter [facility] [address] [place] [id number] Elevated troponin; Coronary artery disease involving teller coronary artery of teller heart without angina pectoris Discharge Disposition: Home or Self Care 05/30/2025 Telephone [facility] [address] [facility] [place] [address] Dinorah Christiansen MD 05/23/2025 Patient rounding ([facility] only) [facility] [address] [place] [address] [place] [address] Dinorah Christiansen MD 05/22/2025 3:00 PM EDT Office Visit [address] [place] [address] Dinorah Christiansen MD Elevated troponin (Primary Dx); Coronary artery disease involving teller coronary artery of teller heart without angina pectoris; Automatic implantable cardiac defibrillator in situ 05/22/2025 Travel 05/02/2025 Telephone [facility] [address] [place] [address] [place] [address] Dinorah Christiansen MD 04/25/2025 Telephone [facility] [address] [place] [address] [place] [address] Dinorah Christiansen MD 04/24/2025 Telephone [facility] [address] [place] [address] [place] [address] Sarah Barclay APRN J. HARRY - SCHEDULING REQUEST 04/12/2025 [facility] CARDIOLOGY [facility] [place] [address] Dinorah Christiansen MD 04/10/2025 10:00 AM EDT Clinical Support No Requirements [facility] [address] [place] [address] [place] [address] Automatic implantable cardiac defibrillator in situ [Z95.810] (Primary Dx) 04/10/2025 10:00 AM EDT Office Visit [facility] [address] [place] [address] [place] [address] Dinorah Christiansen MD Coronary artery disease involving teller coronary artery of teller heart without angina pectoris (Primary Dx); Ventricular tachycardia (paroxysmal); Sustained SVT; Hypertension, essential; Autonomic dysfunction 04/10/2025 Travel 04/10/2025 Telephone [facility] [address] [place] [address] MD [address] WAESPE - SCHEDULING REQUEST 04/06/2025 2:28 PM EDT - 04/06/2025 6:37 PM EDT Emergency [facility] [address] [place] [address] Harrison Fink MD Chest pain, unspecified type (Primary Dx) Discharge Disposition: Home or Self Care 04/06/2025 Travel 04/06/2025 Telephone [facility] [address] [facility] [place] [address] Dinorah Christiansen MD 03/22/2025 3:00 PM EDT Clinical Support No Requirements [facility] [address] [place] [address] Automatic implantable cardiac defibrillator in situ [Z95.810] (Primary Dx) 03/22/2025 Travel from Last 3 Months Immunizations Immunization Administration Dates Next Due Fluzone >6mos 08/11/2014 [...] F) 06/13/2025 2:27 PM EDT Respiratory Rate 20 04/06/2025 2:40 PM EDT Oxygen Saturation 98% 06/13/2025 2:27 PM EDT Inhaled Oxygen Concentration - - Weight 79.5 kg (175 lb 4.8 oz) 06/13/2025 2:27 P M EDT Height 152.4 cm (5') 06/13/2025 2:27 PM EDT Body Mass Index 34.24 06/13/2025 2:27 PM EDT Plan of Treatment Upcoming Encounters Date Type Department Care Team (Late st Contact Info) Description 09/20/2025 2:30 PM EST Office Visit [facility] [address] [facility] [place] [address] Kailey Porras APRN [address] [facility] [place] [address] 09/20/2025 2:30 PM EST Clinical Support No Requirements [facility] [address] [place] [address] Health Maintenance Due Date Last Done Comments LIPID PANEL 1955 MAMMOGRAM 1993 COLOGUARD 1998 COLON CANCER SCREENING 5 YEA R SIGMOIDOSCOPY 1998 COLONOSCOPY 1998 COL[address]AL CANCER SCREENING 1998 CT COLONOGRAPHY 1998 FECAL OCCULT BLOOD TEST 1998 FIT Testing (1 year) 1998 ANNUAL WELLNESS VISIT 05/23/2024 HEPATITIS C SCREENING 05/23/2024 COVID-19 Vaccine (2023- 5 season) 2024 09/09/2021, 12/05/2020, 11/15/2020 INFLUENZA VACCINE 08/02/2025 09/08/2024, , 08/11/2014, Additional history exists DXA SCAN 09/27/2026 09/27/2024 TDAP/TD VACCINES (3 - Td or Tdap) 05/10/2035 025, 08/07/2023 Pneumococcal Vaccine 50+ Completed 05/17/2024 ZOSTER VACCINE Completed 12/28/2024, 09/26/2024 Procedures Procedure Name Priority Date/Time Associated Diagnosis Comments OUTSIDE NON-INVASIVE CARDIOLOGY STUDY Routine 06/01/2025 7:58 AM EDT Elevated troponin Coronary artery disease involving teller coronary artery of teller heart without angina pectoris REMOTE DEVICE CHECK 05/18/2025 2 :02 AM EDT SCANNED - LABS 05/10/2025 REMOTE DEVICE CHECK 05/09/2025 2 :04 AM EDT SCANNED - LABS 04/28/2025 SCANNED EKG 04/26/2025 SCANNED - IMAGING 04/26/2025 SCANNED - IMAGING 04/26/2025 SCANNED - IMAGING 04/26/2025 SCANNED EKG 04/25/2025 SCANNED - LABS 04/25/2025 SCANNED - IMAGING 04/25/2025 SCANNED - IMAGING 04/25/2025 ECG 12-LEAD Routine 04/10/2025 10:40 AM EDT Coronary artery disease involving teller coronary artery of teller heart without angina pectoris TROPONIN STAT 04/06/2025 4:21 PM EDT ECG 12-LEAD STAT 04/06/2025 4:15 PM EDT POCT TDU-IC-SEL-BUN-CR-HB-H CT STAT 04/06/2025 2:58 PM EDT LIGHT BLUE TOP STAT 04/06/2025 2:54 PM EDT SIMS TOP STAT 04/06/2025 2:54 PM EDT GOLD TOP - SST STAT 04/06/2025 2:54 PM EDT LAVENDER TOP STAT 04/06/2025 2:54 PM EDT DK GREEN TOP STAT 04/06/2025 2:54 PM EDT CBC AND DIFFERENTIAL STAT 04/06/2025 2:54 PM EDT TROPONIN STAT 04/06/2025 2:54 PM EDT SCAN SLIDE STAT 04/06/2025 2:54 PM EDT CBC WITH AUTO DIFFERENTIAL STAT 04/06/2025 2:54 PM EDT B-TYPE NATRIURETIC PEPTIDE STAT 04/06/2025 2:54 PM EDT TSH RFX ON ABNORMAL TO FREE T4 STAT 04/06/2025 2:54 PM EDT MAGNESIUM STAT 04/06/2025 2:54 PM EDT COMPREHENSIVE METABOLIC PANEL STAT 04/06/2025 2:54 PM EDT RAINBOW DRAW STAT 04/06/2025 2:54 PM EDT XR CHEST 1 VW STAT 04/06/2025 2:43 PM EDT ECG 12-LEAD STAT 04/06/2025 2:36 PM EDT BASIC METABOLIC PANEL Routine 03/20/2025 Localized edema from Last 3 Months Results * External Stress Procedure (06/01/2025 7:58 AM EDT) Narrative 06/01/2025 7:58 AM EDT This procedure was auto-finalized with no dictation required. Procedure Note 06/01/2025 This procedure was auto-finalized with no dictation required. us Dinorah Christiansen MD [facility] CARDIAC SERVICES ORDERABL ES Final Result * Remote Device Check (05/18/2025 2:02 AM EDT) Only the most recent of2 resultswithin the time period is included. Date Time Interrogation Session [id number] [facility] Type Interrogation Session Remote Device Initiated [facility] Implantable Pulse Generator Certified Court Interpreter [facility] Implantable Pulse Generator Type ICD PSYCHIATRIC Implantable Pulse Generator Model [id number] Kan(TM) [facility] Implantable Pulse Generator Serial Number [id number] [facility] Implantable Pulse Generator Implant Date [id number] [facility] Battery Remaining Percentage 71.00 % [facility] [employer] [facility] Battery Remaining Longevity 76.0 mo [facility] [employer] [facility] Battery Voltage 2.980 [facility] [employer] [facility] Battery CRANE HELPER Trigger 2.620 [facility] [employer] [facility] Battery Status Middle of Service [facility] Capacitor Charge Time 8.600 [facility] [employer] [facility] Jus Statistic RA Percent Paced 6.90 [facility] [employer] [facility] Jus Statistic RV Percent Paced 1.00 [facility] Atrial Tachy Statistic AT/AF [place] Percent 0.00 [facility] [employer] [facility] Lead Channel RA Sensing Intrinsic Amplitude 3.200 [facility] [employer] Lead Channel Setting RA Sensing Sensitivity 0.30 [facility] Lead Channel RA Impedance Value 450 [facility] [facility] Lead Channel RA Pacing Threshold Amplitude 0.375 [facility] Lead Channel RA Pacing Threshold Pulse Width 0.5 [facility] Lead Channel RA Measurements Date and Time [id number] [facility] Lead Channel Setting RA Pacing Amplitude 2.000 [facility] Lead Channel Setting RA Pacing Pulse Width 0.5 [facility] Lead Channel RV Sensing Intrinsic Amplitude 11.400 [facility] Lead Channel Setting RV Sensing Sensitivity 0.50 [facility] Lead Channel RV Impedance Value 660 [facility] Lead Channel Setting RV Pacing Amplitude 2.500 [facility] [employer] [facility] Lead Channel Setting RV Pacing Pulse Width 0.5 [facility] Jus Setting Mode (NBG Code) DDDR [facility] Jus Setting Lower Rate Limit 60 [facility] Jus Setting AT Mode Switch Rate 180 [facility] Jus Setting Maximum Tracking Rate 90 [facility] Jus Setting Maximum Sensor Rate 110 [facility] Jus Setting PAV Delay 250 [facility] Jus Setting REY Delay 250 [facility] Therapy Statistic Recent Shocks Delivered 0 [facility] Therapy Statistic Recent Shocks Aborted 0 [facility] Therapy Statistic Recent ATP Delivered 0 [facility] SHOCK MEASURED IMPEDANCE 65 [facility] Lead Channel Setting RA Sensing Polarity Bipolar [facility] Lead Channel Setting RV Sensing Polarity Bipolar [facility] Lead Channel Setting RA Pacing Polarity Bipolar [facility] Lead Channel Setting RV Pacing Polarity Bipolar [facility] Lead Channel RA Pacing Threshold Polarity Bipolar [facility] Lead Channel RV Pacing Threshold Polarity Bipolar [facility] Zone Setting Type Category VT [facility] IDC RATE 1 141 [facility] Zone Setting Status On [facility] Zone ID 1 [facility] Zone Setting Type Category VT [facility] IDC RATE 1 171 [facility] THERAPIES 4 x Burst+Scan,25.0J,3 4.0J,40.0J x 2 [facility] Zone Setting Status On [facility] Zone ID 2 [facility] Zone Setting Type Category VF [facility] IDC RATE 1 222 [facility] THERAPIES 30.0J,40.0J,40.0J x 4 [facility] Zone Setting Status On [facility] Zone ID 3 [facility] 05/18/2025 2:02 AM EDT us Dinorah Christiansen MD CV IMPLANTABLE CARDIAC DEVIC E Final Result [facility] * LABS SCANNED (05/10/2025) Only the most recent of3 resultswithin the time period is included. us Dinorah Christiansen MD LAB BLOOD ORDERABLES Final R esult * ECG Scan (04/26/2025) Only the most recent of2 resultswithin the time period is included. Dinorah Christiansen MD ECG ORDERABLES Final Result * IMAGING SCANNED (04/26/2025) Only the most recent of5 resultswithin the time period is included. Anatomical Region Laterality Modality Radiographic Dayanara ging Dinorah Christiansen MD IMG DIAGNOSTIC IMAGING ORDER YUNG Final Result * ECG 12-LEAD (04/10/2025 10:40 AM EDT) Only the most recent of3 resultswithin the time period is included. Narrative Tash Oneill RegSched Rep - 04/10/2025 10:40 AM EDT Dinorah Christiansen MD 04/10/2025 10:44 AM ECG 12 Lead Date/Time: 04/10/2025 10:40 AM Performed by: Dinorah Christiansen MD Authorized by: Dinorah Christiansen MD Comparison: compared with previous ECG from 04/06/2025 Similar to previous ECG Rhythm: sinus rhythm Ectopy: infrequent PVCs Rate: normal QRS axis: normal Other findings: T wave abnormality Clinical impression: abnormal EKG Procedure Note Dinorah Christiansen MD - 04/10/2025 10:00 AM EDT Images from the original note were not included. [facility] Provider Note Date: 04/10/2025 Name: Mu Perkins : 1955 PCP: Marly Kumar APRN Chief Complaint Patient presents with Edema ICD check ER follow up Subjective History of Present Illness Mu Perkins is a 69 y.o. female who presents today for follow-upfrom ER visit. Was reported that she had sustained 5 shocks. ER visit shows no new eventson ICD interrogation and no shocks. check today showed no new episodes. Labs reviewed. She denies any new chest pain. She does have some chronic shortness of breath which is stable. 04/10/2025 Updated Cardiac and sleep related history 1. Ischemic cardiomyopathy -Dual-chamber defibrillator [facility] 2. CAD -C 02/25/2016 LAD stents patent x 2, 40% RCA 3. ZULEYKA AHI 10 on BiPAP with oxygen 4. CVA 5. COPD 6. Seizure disorder Allergies Allergen Reactions Alendronate Sodium Hives Gabapentin Irritability Penicillins Hives, Itching and Unknown - Low Severity Sulfa Antibiotics Unknown - Low Severity Tamsulosin Other (See Comments) Sick to stomach Current Outpatient Medications: albuterol sulfate HFA (Ventolin HFA) 108 (90 Base) MCG/ACT inhaler,Inhale 2 puffs 4 (Four) Times a Day., Disp: , Rfl: aspirin 81 MG EC tablet, Take 1 tablet by mouth Daily., Disp: , Rfl: atorvastatin (LIPITOR) 40 MG tablet, Take 1 tablet by mouth every nightat bedtime., Disp: , Rfl: budesonide-formoterol (SYMBICORT) 160-4.5 MCG/ACT inhaler, Inhale 2puffs 2 (Two) Times a Day., Disp: , Rfl: calcium carb-cholecalciferol 600-10 MG-MCG tablet per tablet, Take 1tablet by mouth Daily., Disp: , Rfl: divalproex (DEPAKOTE ER) 500 MG 24 hr tablet, Take 1 tablet by mouth 2(Two) Times a Day., Disp: , Rfl: fenofibrate (TRICOR) 145 MG tablet, Take 1 tablet by mouth every nightat bedtime., Disp: , Rfl: furosemide (LASIX) 40 MG tablet, Take 1 tablet by mouth 2 (Two) Times aDay., Disp: 180 tablet, Rfl: 1 hydrOXYzine (ATARAX) 25 MG tablet, Take 1 tablet by mouth Every 6 (Six)Hours As Needed., Disp: , Rfl: levothyroxine (SYNTHROID, LEVOTHROID) 75 MCG tablet, Take 1 tablet bymouth Daily., Disp: , Rfl: loratadine (CLARITIN) 10 MG tablet, Take 1 tablet by mouth Daily., Disp:, Rfl: magnesium oxide (MAG-OX) 400 MG tablet, Take 1 tablet by mouth Daily.,Disp: 30 tablet, Rfl: 11 midodrine (PROAMATINE) 5 MG tablet, Take 1 tablet by mouth 2 (Two) Timesa Day. (Patient taking differently: Take 1 tablet by mouth 2 (Two) Times aDay. PRN), Disp: 60 tablet, Rfl: 0 mirtazapine (REMERON) 30 MG tablet, Take 1 tablet by mouth every nightat bedtime., Disp: , Rfl: nitroglycerin (NITROSTAT) 0.4 MG SL tablet, 1 under the tongue as neededfor angina, may repeat q5mins for up three doses, Disp: 25 tablet, Rfl:5 omeprazole (priLOSEC) 40 MG capsule, Take 1 capsule by mouth Daily.,Disp: , Rfl: ondansetron (ZOFRAN) 4 MG tablet, Take 1 tablet by mouth Every 8 (Eight)Hours As Needed., Disp: , Rfl: OXcarbazepine (TRILEPTAL) 300 MG tablet, Take 1 tablet by mouth 2 (Two)Times a Day., Disp: , Rfl: potassium chloride 10 MEQ CR tablet, Take 1 tablet by mouth 2 (Two)Times a Day., Disp: 60 tablet, Rfl: 6 QUEtiapine (SEROquel) 25 MG tablet, Take 0.5-1 tablets by mouth Daily.,Disp: , Rfl: rOPINIRole (REQUIP) 0.5 MG tablet, TAKE ONE TABLET BY MOUTH EVERY DAY ASNEEDED for restless legs, Disp: , Rfl: tiZANidine (ZANAFLEX) 4 MG tablet, TAKE 1/2 TABLET TO ONE TABLET EVERYSIX HOURS NEEDED FOR PAIN, Disp: , Rfl: Bisoprolol Fumarate 2.5 MG tablet, Take 2.5 mg by mouth Daily., Disp: 30tablet, Rfl: 11 Past Medical History: Diagnosis Date [...] Sexual activity: Defer Objective Vital Signs: BP 158/92 Pulse 90 Ht 152.4 cm (60 ) Wt 77.1 kg (170 lb) [id number] BMI 33.20 kg/m Estimated body mass index is 33.2 kg/m as calculated from thefollowing: Height as of this encounter: 152.4 cm [...] Memory: Memory normal. ECG 12 Lead Date/Time: 04/10/2025 10:40 AM Performed by: Dinorah Christiansen MD Authorized by: Dinorah Christiansen MD Comparison: compared with previousECG from 04/06/2025 Similar to previous ECG Rhythm: sinus rhythm Ectopy: infrequent PVCs Rate: normal QRS axis: normal Other findings: T wave abnormality Clinical impression: abnormal EKG Assessment and Plan Diagnoses and all orders for this visit: 1. Coronary artery disease involving teller coronary artery of nativeheart without angina pectoris (Primary) - Bisoprolol Fumarate 2.5 MG tablet; Take 2.5 mg by mouth Daily.Dispense: 30 tablet; Refill: 11 2. Ventricular tachycardia (paroxysmal) - Bisoprolol Fumarate 2.5 MG tablet; Take 2.5 mg by mouth Daily.Dispense: 30 tablet; Refill: 11 3. Sustained SVT - Bisoprolol Fumarate 2.5 MG tablet; Take 2.5 mg by mouth Daily.Dispense: 30 tablet; Refill: 11 4. Hypertension, essential 5. Autonomic dysfunction Other orders - ECG 12 Lead PLAN: -start bisoprolol 5mg daily for SVT and VT -will monitor BP closely at home and bring back for a close follow up -chest pain episode from ER noncardiac, no sustained VT. -lately BP has been high at home and has not needed as much midodrine, butwill be watching because of autonomic dysfunction. Follow Up Return for follow up as previously scheduled. Mary Ellen Christiansen MD Cardiology and Sleep [facility] 04/10/2025 Please note that this explicitly excludes time spent on other separatebillable services such as performing procedures or test interpretation,when applicable. This note was created using dictation software which occasionallytranscribes nonsensical phrases. Please contact the provider if anyclarification is needed. us Dinorah Christiansen MD ECG ORDERABLES Final Result * (ABNORMAL) High Sensitivity Troponin T (04/06/2025 4:21 PM EDT) Only the most recent of2 resultswithin the time period is included. HS Troponin T 20(H) <14 ng/L 04/06/2025 5:06 PM EDT [facility] Blood Structure of right upper limb / Unknown Butterfly / Unknown 04/06/2025 4:21 PM EDT 04/06/2025 4:26 PM EDT [facility] - 04/06/2025 5:06 PM EDT High Sensitive Troponin T Reference Range: <14.0 ng/L- Negative Female for AMI <22.0 ng/L- Negative Male for AMI >=14 - Abnormal Female indicating possible myocardial injury. >=22 - Abnormal Male indicating possible myocardial injury. Clinicians would have to utilize clinical acumen, EKG, Troponin, and serial changes to determine if it is an Acute Myocardial Infarction or myocardial injury due to an underlying chronic condition. Harrison Fink MD LAB BLOOD ORDERABLES Angelita zapata Result [facility]
[address] [place] [address], * (ABNORMAL) POC CHEM 8 (04/06/2025 2:58 PM EDT) Glucose 94 70 - 130 mg/dL 04/06/2025 3:01 PM EDT [facility] BUN 33(H) 8 - 26 mg/dL 04/06/2025 3:01 PM EDT [facility] Creatinine 1.30 0.60 - 1.30 mg/dL 04/06/2025 3:01 PM EDT [facility] Sodium 140 138 - 146 mmol/L 04/06/2025 3:01 PM EDT [facility] POC Potassium 3.6 3.5 - 4.9 mmol/L 04/06/2025 3:01 PM EDT [facility] Chloride 99 98 - 109 mmol/L 04/06/2025 3:01 PM EDT [facility] Total CO2 26 24 - 29 mmol/L 04/06/2025 3:01 PM EDT [facility] Hemoglobin 13.9 12.0 - 17.0 g/dL 04/06/2025 3:01 PM EDT [facility] Comment:Serial Number: [id number] Hematocrit 41 38 - 51 % 04/06/2025 3:01 PM EDT [facility] Ionized Calcium 1.11(L) 1.20 - 1.32 mmol/L 04/06/2025 3:01 PM EDT [facility] eGFR 44.1(L) >60.0 mL/min/1.7 3 04/06/2025 3:01 PM EDT [facility] Blood 04/06/2025 2:58 PM EDT 04/06/2025 3:01 PM EDT us Harrison Fink MD POINT OF CARE TEST ORDERA BLES Final Result Performing Organization Address [facility] Co de Phone Number [facility]
[address] [place] [address], * Sims Top (04/06/2025 2:54 PM EDT) Extra Tube Hold for add-ons. 04/06/2025 3:00 PM EDT [facility] Comment:Auto resulted. Blood Venipuncture / Unknown 04/06/2025 2:54 PM EDT 04/06/2025 2:59 PM EDT us Harrison Fink MD LAB BLOOD ORDER ONLY Angelita l Result Performing Organization Address [facility] Co de Phone Number [facility]
[address] [place] [address], [place] [phone] * TSH Rfx On Abnormal To Free T4 (04/06/2025 2:54 PM EDT) TSH 1.730 0.270 - 4.200 uIU/mL 04/06/2025 3:47 PM EDT [facility] Blood Venipuncture / Unknown 04/06/2025 2:54 PM EDT 04/06/2025 2:59 PM EDT us Harrison Fink MD LAB BLOOD ORDERABLES Angelita l Result Performing Organization Address [facility] Co de Phone Number [facility]
[address] [place] [address], [place] [phone] * Gold Top - SST (04/06/2025 2:54 PM EDT) Extra Tube Hold for add-ons. 04/06/2025 3:00 PM EDT [facility] Comment:Auto resulted. Blood Venipuncture / Unknown 04/06/2025 2:54 PM EDT 04/06/2025 2:59 PM EDT Harrison Fink MD LAB BLOOD ORDER ONLY Angelita l Result Performing Organization Address City/[facility]/ZIP Co de Phone Number [facility]
[address] [place] [address], * Green Top (Gel) (04/06/2025 2:54 PM EDT) Extra Tube Hold for add-ons. 04/06/2025 3:00 PM EDT [facility] Comment:Auto resulted. Blood Venipuncture / Unknown 04/06/2025 2:54 PM EDT 04/06/2025 2:59 PM EDT Harrison Fink MD LAB BLOOD ORDER ONLY Angelita l Result Performing Organization Address [facility] Co de Phone Number [facility]
[address] [place] [address], * Scan Slide (04/06/2025 2:54 PM EDT) RBC Morphology Normal Normal 04/06/2025 3:41 PM EDT [facility] WBC Morphology Normal Normal 04/06/2025 3:41 PM EDT [facility] Platelet Morphology Normal Normal 04/06/2025 3:41 PM EDT [facility] Blood Venipuncture / Unknown 04/06/2025 2:54 PM EDT 04/06/2025 2:59 PM EDT Harrison Fink MD LAB BLOOD ORDERABLES Angelita l Result Performing Organization Address City/[facility]/ZIP Co de Phone Number [facility]
[address] [place] [address], * (ABNORMAL) CBC Auto Differential (04/06/2025 2:54 PM EDT) [facility] Signature WBC 11.35(H) 3.40 - 10.80 10*3/mm3 04/06/2025 3:41 PM EDT [facility] RBC 4.37 3.77 - 5.28 10*6/mm3 04/06/2025 3:41 PM EDT [facility] Hemoglobin 13.1 12.0 - 15.9 g/dL 04/06/2025 3:41 PM EDT [facility] Hematocrit 40.5 34.0 - 46.6 % 04/06/2025 3:41 PM EDT [facility] MCV 92.7 79.0 - 97.0 fL 04/06/2025 3:41 PM EDT [facility] MCH 30.0 26.6 - 33.0 pg 04/06/2025 3:41 PM EDT [facility] MCHC 32.3 31.5 - 35.7 g/dL 04/06/2025 3:41 PM EDT [facility] RDW 14.0 12.3 - 15.4 % 04/06/2025 3:41 PM EDT [facility] RDW-SD 47.8 37.0 - 54.0 fl 04/06/2025 3:41 PM EDT [facility] MPV 11.0 6.0 - 12.0 fL 04/06/2025 3:41 PM EDT [facility] Platelets 303 140 - 450 10*3/mm3 04/06/2025 3:41 PM EDT [facility] Neutrophil % 43.1 42.7 - 76.0 % 04/06/2025 3:41 PM EDT [facility] Lymphocyte % 47.8(H) 19.6 - 45.3 % 04/06/2025 3:41 PM EDT [facility] Monocyte % 7.8 5.0 - 12.0 % 04/06/2025 3:41 PM EDT [facility] Eosinophil % 0.4 0.3 - 6.2 % 04/06/2025 3:41 PM EDT [facility] Basophil % 0.3 0.0 - 1.5 % 04/06/2025 3:41 PM EDT [facility] Immature Grans % 0.6(H) 0.0 - 0.5 % 04/06/2025 3:41 PM EDT [facility] Neutrophils, Absolute 4.88 1.70 - 7.00 10*3/mm3 04/06/2025 3:41 PM EDT [facility] Lymphocytes, Absolute 5.43(H) 0.70 - 3.10 10*3/mm3 04/06/2025 3:41 PM EDT [facility] Monocytes, Absolute 0.89 0.10 - 0.90 10*3/mm3 04/06/2025 3:41 PM EDT [facility] Eosinophils, Absolute 0.05 0.00 - 0.40 10*3/mm3 04/06/2025 3:41 PM EDT [facility] Basophils, Absolute 0.03 0.00 - 0.20 10*3/mm3 04/06/2025 3:41 PM EDT [facility] Immature Grans, Absolute 0.07(H) 0.00 - 0.05 10*3/mm3 04/06/2025 3:41 PM EDT [facility] nRBC 0.0 0.0 - 0.2 /100 WBC 04/06/2025 3:41 PM EDT [facility] Blood Venipuncture / Unknown 04/06/2025 2:54 PM EDT 04/06/2025 2:59 PM EDT Harrison Fink MD LAB BLOOD ORDERABLES Angelita zapata Result [facility]
[address] [place] [address], * Lavender Top (04/06/2025 2:54 PM EDT) Extra Tube hold for add-on 04/06/2025 3:00 PM EDT [facility] Comment:Auto resulted Blood Venipuncture / Unknown 04/06/2025 2:54 PM EDT 04/06/2025 2:59 PM EDT Harrison Fink MD LAB BLOOD ORDER ONLY Angelita l Result [facility]
[address] [place] [address], * Light Blue Top (04/06/2025 2:54 PM EDT) Extra Tube Hold for add-ons. 04/06/2025 3:00 PM EDT [facility] Comment:Auto resulted Blood Venipuncture / Unknown 04/06/2025 2:54 PM EDT 04/06/2025 2:59 PM EDT Harrison Fink MD LAB BLOOD ORDER ONLY Angelita l Result Performing Organization Address [facility] Co de Phone Number [facility]
[address] [place] [address], * BNP (04/06/2025 2:54 PM EDT) proBNP 330.3 0.0 - 900.0 pg/mL 04/06/2025 3:52 PM EDT [facility] Blood Venipuncture / Unknown 04/06/2025 2:54 PM EDT 04/06/2025 2:59 PM EDT Narrative [facility] - 04/06/2025 3:52 PM EDT This assay is used as an aid in the diagnosis of individuals suspected of having heart failure. It can be used as an aid in the diagnosis of acute decompensated heart failure (ADHF) in patients presenting with signs and symptoms of ADHF to the emergency department (ED). In addition, NT-proBNP of <300 pg/mL indicates ADHF is not likely. Age Range Result Interpretation NT-proBNP Concentration (pg/mL: <50 Positive >450 Sims 300-450 Negative <300 50-75 Positive >900 Sims 300-900 Negative <300 >75 Positive >1800 Sims 300-1800 Negative <300 Harrison Fink MD LAB BLOOD ORDERABLES Angelita l Result Performing Organization Address City/[facility]/ZIP Co de Phone Number [facility]
[address] [place] [address], * Magnesium (04/06/2025 2:54 PM EDT) Magnesium 1.8 1.6 - 2.4 mg/dL 04/06/2025 3:52 PM EDT [facility] Blood Venipuncture / Unknown 04/06/2025 2:54 PM EDT 04/06/2025 2:59 PM EDT Harrison Fink MD LAB BLOOD ORDERABLES Agnelita l Result Performing Organization Address [facility] de Phone Number [facility]
[address] [place] [address], * (ABNORMAL) Comprehensive Metabolic Panel (04/06/2025 2:54 PM EDT) Glucose 93 65 - 99 mg/dL 04/06/2025 3:53 PM EDT [facility] BUN 34.4(H) 8.0 - 23.0 mg/dL 04/06/2025 3:53 PM EDT [facility] Creatinine 1.06(H) 0.57 - 1.00 mg/dL 04/06/2025 3:53 PM EDT [facility] Sodium 141 136 - 145 mmol/L 04/06/2025 3:53 PM EDT [facility] Potassium 4.0 3.5 - 5.2 mmol/L 04/06/2025 3:53 PM EDT [facility] Comment:Slight hemolysis det ected by analyzer. Result may be falsely elevated. Chloride 100 98 - 107 mmol/L 04/06/2025 3:53 PM EDT [facility] CO2 26.0 22.0 - 29.0 mmol/L 04/06/2025 3:53 PM EDT [facility] Calcium 9.1 8.6 - 10.5 mg/dL 04/06/2025 3:53 PM EDT [facility] Total Protein 6.7 6.0 - 8.5 g/dL 04/06/2025 3:53 PM EDT [facility] Albumin 4.0 3.5 - 5.2 g/dL 04/06/2025 3:53 PM T [facility] ALT (SGPT) 15 1 - 33 U/L 04/06/2025 3:53 PM T [facility] AST (SGOT) 24 1 - 32 U/L 04/06/2025 3:53 PM T [facility] Comment:Slight hemolysis det ected by analyzer. Result may be falsely elevated. Alkaline Phosphatase 82 39 - 117 U/L 04/06/2025 3:53 PM T [facility] Total Bilirubin 0.2 0.0 - 1.2 mg/dL 04/06/2025 3:53 PM T [facility] Globulin 2.7 gm/dL 04/06/2025 3:53 PM T [facility] Comment:Calculated Result A/G Ratio 1.5 g/dL 04/06/2025 3:53 PM T [facility] BUN/Creatinine Ratio 32.5(H) 7.0 - 25.0 04/06/2025 3:53 PM T [facility] Anion Gap 15.0 5.0 - 15.0 mmol/L 04/06/2025 3:53 PM T [facility] eGFR 56.3(L) >60.0 mL/min/1.7 3 04/06/2025 3:53 PM EDT [facility] Blood Venipuncture / Unknown 04/06/2025 2:54 PM EDT 04/06/2025 2:59 PM EDT Narrative [facility] - 04/06/2025 3:53 PM EDT GFR Categories in Chronic Kidney Disease (CKD) GFR Category GFR (mL/min/1.73) Interpretation G1 90 or greater Normal or high (1) G2 60-89 Mild decrease (1) G3a 45-59 Mild to moderate decrease G3b 30-44 Moderate to severe decrease G4 15-29 Severe decrease G5 14 or less Kidney failure (1)In the absence of evidence of kidney disease, neither GFR category G1 or G2 fulfill the criteria for CKD. eGFR calculation 2020 CKD-EPI creatinine equation, which does not include race as a factor us Harrison Fink MD LAB BLOOD ORDERABLES Angelita l Result [facility]
[address] [place] [address], * XR Chest 1 View (04/06/2025 2:43 PM EDT) Anatomical Region Laterality Modality Body N/A Radiographic Dayanara ging 04/06/2025 3:10 PM EDT Impressions 04/06/2025 3:10 PM EDT Impression: No active disease. Electronically Signed: Jero Lima MD 04/06/2025 3:10 PM EDT Workstation ID: [id number] Narrative 04/06/2025 3:10 PM EDT XR CHEST 1 VW Date of Exam: 04/06/2025 2:33 PM EDT Indication: Dysrhythmia triage protocol Comparison: None available. Findings: Cardiomediastinal silhouette is unremarkable. There is a 2-lead left-sided pacemaker/AICD. No airspace disease, pneumothorax, nor pleural effusion. No acute osseous abnormality identified. Procedure Note Jero Lima MD - 04/06/2025 XR CHEST 1 VW Date of Exam: 04/06/2025 2:33 PM EDT Indication: Dysrhythmia triage protocol Comparison: None available. Findings: Cardiomediastinal silhouette is unremarkable. There is a 2-lead left-sidedpacemaker/AICD. No airspace disease, pneumothorax, nor pleural effusion.No acute osseous abnormality identified. IMPRESSION: Impression: No active disease. Electronically Signed: Jero Lima MD 04/06/2025 3:10 PM EDT Workstation ID: [id number] Harrison Fink MD IMG DIAGNOSTIC IMAGING OR DERABLES Final Result * Basic Metabolic Panel (03/20/2025) Blood Kailey Porras BUFFING WHEEL OPERATOR LAB BLOOD ORDERABLE S Final Result [facility]
[address] [place] [address], from Last 3 Months Insurance MEDICARE B ONLY MEDICAID [place] Care Teams Flame Planer Relationship Specialty Start Date End Date Marly Kumar, SHAKIRA [address] [place] [address] PCP - General Family Medicine 07/06/24
--- OUTSIDE RECORDS SUMMARY | 2025-06-19 13:54 | XMS_ITS | Clinical Summary ---
Author Organization [facility] ([place], [place], [place], [place] Address [address] [place] [address] Care Team Providers Care School Commissioner Name Role Phone Marly Kumar CONTACT CENTER ASSISTANT Primary Care Provider [phone] Allergies Active Allergy Reactions Criticality Noted Date [...] mouth every 6 (six) hours as needed. 10/21/202 4 Active aspirin 81 MG EC tablet [...] 10/06/2024 Pacemaker 10/06/2024 Other supraventricular tachycardia 10/06/2024 [place] (myocardial infarction) 10/06/2024 Gastroesophageal reflux disease 10/06/2024 [...] 10/06/2024 11:49 AM EST Plan of Treatment Upcoming Encounters Date Type Department Care Team (Late st Contact Info) Description 07/10/2025 10:00 AM EDT Office Visit [facility] [address] [place] [address] [address] [place] [address] [place] [address] [place] [address] [address] [place] [address] Health Maintenance Due Date Last Done Comments CT Colonography 1953 Colonoscopy 1953 Colorectal Cancer Screening 1953 DXA SCAN 1953 FOBT/FIT 1953 Fit-DNA (Cologuard) 1953 Sigmoidoscopy 1953 Depression Screening (12+) 1965 Hepatitis C Screening 1971 Breast Cancer Screening 1993 Respiratory Syncytial Virus (RSV) Adult or (1 - Risk 60-74 years 1-dose series) 2013 COVID-19 VACCINE ( season) 2024 09/09/2021, 12/05/2020, 11/15/2020 Falls Risk Screening 11/02/2024 Influenza Vaccine (#1) 2025 09/08/2024 Tobacco Cessation Counseling and Screening (12+) 10/06/2025 10/06/2024 DTAP/TDAP/TD VACCINES (3 - T d or Tdap) 05/10/2035 05/10/2025, 08/07/2023 Pneumococcal 50+ years Completed 05/17/2024 Shingles Vaccine (Zoster) Completed 12/28/2024, Medical Devices Implanted Type Area Satin Finisher Device Identifier Shelf Expiration Date Model / Serial / Lot Iol Uv Clareon +21.5 [id number] - [id number] Implanted:Qty: 1 on 09/22/2024 by Urmila So MD at [facility] IMPLANTS Left: Eye GUS 09/24/2027 [id number] / [id number] / Iol Uv Clareon +22.0 [id number] - [id number] Implanted:Qty: 1 on 10/06/2024 by Urmila So MD at [facility] IMPLANTS Right: Eye GUS 08/05/2027 [id number] / [id number] / Insurance MEDICARE PART B ONLY MEDICAID OF [place] MEDICARE PART A B Care Teams School Commissioner Relationship Specialty Start Date End Date Marly Kumar, DUNG [address] [place] [address] PCP - General Nurse Practitioner 09/22/24
--- OUTSIDE RECORDS SUMMARY | 2025-06-19 13:54 | XMS_ITS | Encounter Summary ---
Author Organization [facility] Address [address] [place] [address] Care Team Providers Care Carton Stapler Name Role Phone Marly Kumar APRN Primary Care Provider [phone] Encounter Details Date Type Department Care Team (Late st Contact Info) Description 05/30/2025 Telephone [facility] CARDIOLOGY [address] [place] [address] Dinorah Christiansen MD [address] [place] [address] Social History Tobacco Use Types Packs/Day [...] Telephone Encounter - Yulissa Queen RN - 05/30/2025 4:09 PM EDT Spoke with Tracee @ [facility] Neurology Clinic gave her instructions on what Enrique Barroso from [facility] recommends. This is either using a magnet to turn device off or have rep there to turn device off. She relates she will forward information on to her providers. She will then notify the pt. She verbalizesunderstanding. * Telephone Encounter - Yulissa Queen RN - 05/30/2025 3:46 PM EDT LVM for [facility] Neurology [facility] to call back. * Telephone Encounter - Yulissa Queen RN - 05/30/2025 3:45 PM EDT LVM for pt to call back. * Telephone Encounter - Yulissa Queen RN - 05/30/2025 3:21 PM EDT Spoke with Gilmar Barroso with [facility]. He recommends either they use a magnet during the procedure or have a rep there to turn device off during the procedure. States risks of shock too high. Please advise. * Telephone Encounter - Yulissa Queen RN - 05/30/2025 3:01 PM EDT Called [facility] Neurology Clinic in [facility] [phone]. Pt is rescheduled for 06/06/25. Also called Gilmar Barroso [phone] [facility]. LVM for him to call back. * Telephone Encounter - Dinorah Christiansen MD - 05/30/2025 2:43 PM EDT Patient has [facility] ICD. I would have to call [facility] rep to double check this, risk of interference and shocks is a big risk. DO not proceed until we hear back. Can someone please call Gilmar Barroso with [facility] and ask what the recommendation is on NCV with ICDs please. * Telephone Encounter - Yulissa Queen RN - 05/30/2025 1:08 PM EDT Tracee from Neurology Clinic @ [facility] called as pt is there for a nerve conduction and EMG. They will not be using a magnet. Pt has pacemaker and they want to know if ok to proceed. Last seen in clinic on 05/22/[address] Christiansen with follow up scheduled for 06/13/25 with Jose Porras APRN. Please advise. documented in this encounter Plan of Treatment Upcoming Encounters Date Type Department Care Team (Late st Contact Info) Description 09/20/2025 2:30 PM EST Office Visit [facility] CARDIOLOGY [address] [facility] [place] [address] Kailey Porras APRN 24 [place] [address] 09/20/2025 2:30 PM EST Clinical Support No Requirements [facility] [address] [place] [address] documented as of this encounter Visit Diagnoses Not on filedocumented in this encounter Care Teams Carton Stapler Relationship Specialty Start Date End Date Marly Kumar APRN [address] [place], [place] [id number] PCP - General Family Medicine 07/06/24 documented as of this encounter
--- OUTSIDE RECORDS SUMMARY | 2025-06-19 13:54 | XMS_ITS | Referral Summary ---
Author Organization [employer] ([place], [place], [place], [place]) Address [address] [place] [address] Care Team Providers Care It Trainer Name Role Phone Marly Kumar RN DOCUMENT IMPROVEMENT Primary Care Provider [phone] Allergies Active Allergy Reactions Criticality Noted Date [...] 10/06/2024 Pacemaker 10/06/2024 Other supraventricular tachycardia 10/06/2024 CT (myocardial infarction) 10/06/2024 Gastroesophageal reflux disease 10/06/2024 [...] Description 07/10/2025 10:00 AM EDT Office Visit [facility] Neurology [address] [place] [address] [address] [place] [address] [place] [address] [place] [address] [address] [place] [id number] Medical Devices Implanted Type Area Radiographic Technologist Device Identifier Shelf Expiration Date Model / Serial / Lot Iol Uv Clareon +21.5 [id number] - [id number] Implanted:Qty: 1 on 09/22/2024 by Urmila So MD at [facility] IMPLANTS Left: Eye GUS 09/24/2027 [id number] / [id number] / Iol Uv Clareon +22.0 [id number] - [id number] Implanted:Qty: 1 on 10/06/2024 by Urmila So MD at [facility] IMPLANTS Right: Eye GUS 08/05/2027 [id number] / [id number] / Insurance MEDICARE PART B ONLY MEDICAID OF [place] MEDICARE PART A B Care Teams It Trainer Relationship Specialty Start Date End Date Marly Kumar, DUNG [address] [place] [address] PCP - General Nurse Practitioner 09/22/24
--- OUTSIDE RECORDS SUMMARY | 2025-06-19 13:54 | XMS_ITS | Encounter Summary ---
Author Organization [facility] Address [address] [place] [address] Care Team Providers Care Stick Roller Name Role Phone Marly Kumar APRN Primary Care Provider [phone] Encounter Details Date Type Department Care Team (Late st Contact Info) Description 05/23/2025 Patient rounding ([facility]) [facility] CARDIOLOGY [address] [place] [address] Dinorah Christiansen MD [address] [place] [address] Social History Tobacco Use Types Packs/Day [...] as of this encounter Progress Notes * Miryam Blanton RegSched Rep - 05/23/2025 3:20 PM EDT ..My name is Marianela Delgado and I am the Inpatient Nursing Aide for [facility]. I would like to thank you for being a loyal patient. If you do not mind I would like to ask you a few questions about your recent visit with us. Please feel free to reply if you wish to provide us with feedback on your first visit with our practice. First, could you tell me what went well with your recent visit? Secondly, we are always looking for ways to make our patients' experiences even better. Do you haveany recommendations on ways we may improve? Finally, overall were you satisfied with your first visit to us as a [facility]? In the next few days, you will be receiving a Patient Experience Survey. Thank you for taking the time to answer a few questions today. I hope you have a good day. documented in this encounter Plan of Treatment Upcoming Encounters Date Type Department Care Team (Late st Contact Info) Description 09/20/2025 2:30 PM EST Office Visit [facility] CARDIOLOGY [address] [place] [address] [place] [address] Kailey Porras APRN [address] [place] [address] 09/20/2025 2:30 PM EST Clinical Support No Requirements [facility] CARDIOLOGY [address] [facility] [place] [address] documented as of this encounter Visit Diagnoses Not on filedocumented in this encounter Care Teams Stick Roller Relationship Specialty Start Date End Date Marly Kumar APRN [address] [place], [place] [id number] PCP - General Family Medicine 07/06/24 documented as of this encounter
--- OUTSIDE RECORDS SUMMARY | 2025-06-19 13:54 | XMS_ITS | Encounter Summary ---
Author Organization [employer] ([place], [place], [place], [place]) Address [address] [place] [address] Care Team Providers Care Supervisor Anodizing Name Role Phone Marly Kumar DRY PAN OPERATOR Primary Care Provider [phone] Encounter Details Date Type Department Care Team (Late st Contact Info) Description 07/27/2020 Transcribed Document [facility] Family [place] [facility] [place] [address] ProviderMiya MD [address] [place] [id number] Social History Tobacco Use Types Packs/Day Years [...] EEG-video monitoring was performed using the 32-channel [employer] monitoring system. The seizure detection computer was [...] noted suggestive of mild diffuse cerebral dysfunction. /[id number] MD RAPHAEL Esquivel/JOHNNIE / RAPHAEL / MODL /[id number] Electronically signed by Celestine [facility] Conversion Fig Bar Machine Operator Cerner at 02/19/2023 6:28 PM CDT documented in this encounter Plan of Treatment Upcoming Encounters Date Type Department Care Team (Late st Contact Info) Description 07/10/2025 10:00 AM EDT Office Visit [facility] Neurology [address] [facility] [address] [place] [address] Rad Duong MD [address] [facility] [address] [place], [place] [id number] documented as of this encounter Visit Diagnoses Not on filedocumented in this encounter Care Teams Supervisor Anodizing Relationship Specialty Start Date End Date Marly Kumar, DUNG [address] [place] [address] PCP - General Nurse Practitioner 09/22/24 documented as of this encounter
--- OUTSIDE RECORDS SUMMARY | 2025-06-19 13:54 | XMS_ITS | Encounter Summary ---
Author Organization [facility] Address [address] [place] [address] Care Team Providers Care Vice President Payment Name Role Phone Marly Kumar SHAKIRA Primary Care Provider [phone] Encounter Details Date Type Department Care Team (Latest Contact Info) Description 06/13/2025 Travel Social History Tobacco Use Types Packs/Day [...] Description 09/20/2025 2:30 PM EST Office Visit [facility] CARDIOLOGY [address] [place] [address] Kailey Porras APRN [address] [place] [address] 09/20/2025 2:30 PM EST Clinical Support No Requirements [facility] CARDIOLOGY [address] [place] [address] documented as of this encounter Visit Diagnoses Not on filedocumented in this encounter Care Teams Vice President Payment Relationship Specialty Start Date End Date Marly Kumar, PROTECTIVE SIGNAL INSTALLER [address] [place] [address] PCP - General Family Medicine 07/06/24 documented as of this encounter
--- OUTSIDE RECORDS SUMMARY | 2025-06-19 13:54 | XMS_ITS | Encounter Summary ---
Author Organization [employer] ([place], [place], [place], [place]) Address [address] [place] [address] Care Team Providers Care Optical Laboratory Manager Name Role Phone Marly Kumar SAXOPHONE TEACHER Primary Care Provider [phone] Encounter Details Date Type Department Care Team (Late st Contact Info) Description 07/28/2020 Transcribed Document [facility] [place] [facility] [address] ProviderMiya MD [address] [place] [phone] Social History Tobacco Use Types Packs/Day Years Used Date Smoking Tobacco: Never Assessed Comments Unknown Sex and Gender Information Value Date Recorded Sex Assigned at Female 05/01/2022 3:59 PM CDT Legal Sex Female 1:54 PM CDT Gender Identity Female 05/01/2022 3:59 PM CDT Sexual Orientation Not on file documented as of this encounter Miscellaneous Notes * Cerner Conversion Note - Historical ProviderMD - 07/28/2020 10:18 AM CDT DATE [...] up with Dr. Duong in 6 months. /[id number] MD RAPHAEL Esquivel/AQ / TAF / MODL /[id number] Electronically signed by Klaus Sprague Conversion Research And Development Director Cerner at 02/19/2023 6:40 PM CDT documented in this encounter Plan of Treatment Upcoming Encounters Date Type Department Care Team (Late st Contact Info) Description 07/10/2025 10:00 AM EDT Office Visit [facility] Neurology [address] [place], [place] [address] Rad Duong MD [address] [facility] [address] [place] [address] documented as of this encounter Visit Diagnoses Not on filedocumented in this encounter Care Teams Optical Laboratory Manager Relationship Specialty Start Date End Date Marly Kumar, DUNG [address] [place], [place] [phone] PCP - General Nurse Practitioner 09/22/24 documented as of this encounter
--- OUTSIDE RECORDS SUMMARY | 2025-06-19 13:54 | XMS_ITS | Encounter Summary ---
Author Organization [employer] ([place], [place], [place], [place]) Address [address] [place] [address] Care Team Providers Care Mold Unloader Name Role Phone Marly Kumar MAINTENANCE MANAGER Primary Care Provider Encounter Details Date Type Department Care Team (Late st Contact Info) Description 07/27/[address] [facility] Family Medicine [facility] [place] [address] ProviderMiya MD [address] [place] [phone] Social History Tobacco Use Types Packs/Day Years [...] On: 07/27/2020 14:25 EDT by EDISON FONTANEZ, RN-Admin AsstDeck Supervisor Progress Note Discharge Arrangements : Patient Post-Acute [...] Attend Multidisciplinary Rounds? : No EDISON FONTANEZ, RN-Admin Asst - 07/27/2020 14:25 EDT Narrative Progress Note Narrative Progress Note : Continues on EEG monitoring. Updates faxed to Justin Perkins. Historical Progress Note : On continuous EEG monitoring. EDISON FONTANEZ, RN-Admin Asst - 07/26/20 16:04:13 EDISON FONTANEZ, RN-Admin Asst - 07/27/2020 14:25 EDT Electronically signed by Celestine [facility] Conversion Supply Chain Analyst Cerner at 02/19/2023 6:34 PM CDT documented in this encounter Plan of Treatment Upcoming Encounters Date Type Department Care Team (Late st Contact Info) Description 07/10/2025 10:00 AM EDT Office Visit [facility] Neurology [address] [facility] [address] [place] [address] Rad Duong MD [address] [facility] [address] [place] [address] documented as of this encounter Visit Diagnoses Not on filedocumented in this encounter Care Teams Mold Unloader Relationship Specialty Start Date End Date Marly Kumar NP [address] [place], [place] [phone] PCP - General Nurse Practitioner 09/22/24 documented as of this encounter
--- OUTSIDE RECORDS SUMMARY | 2025-06-19 13:54 | XMS_ITS | Encounter Summary ---
Author Organization [employer] ([place], [place], [place], [place]) Address [address] [place] [address] Care Team Providers Care Pelt Salter Name Role Phone Marly Kumar GRAPHICS PROGRAMMER Primary Care Provider [phone] Encounter Details Date Type Department Care Team (Late st Contact Info) Description 07/28/2020 Transcribed Document [facility] Family Medicine [facility] [place] [address] ProviderMiya MD [address] [place] [id number] Social History Tobacco Use Types Packs/Day Years [...] Conversion Note - Miya ProviderMD - 07/28/2020 11:02 AM CDT DATE OF SERVICE: 07/28/2020 REPORT TYPE: EEG REFERRING PHYSICIAN: Rad Duong MD REPORT TITLE: Video Electroencephalogram Report STUDY DURATION: 4 hours 15 minutes. 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 EEG VIDEO MONITORING METHODOLOGY: Time-locked EEG-video monitoring was performed using the 32-channel [employer] monitoring system. The seizure detection computer was [...] temporal regions, more prominent on the left. /[id number] Rad Duong MD TAF/AQ / TAF / MODL /[id number] Electronically signed by Celestine [facility] Conversion Sand Screener Cerner at 02/19/2023 6:29 PM CDT documented in this encounter Plan of Treatment Upcoming Encounters Date Type Department Care Team (Late st Contact Info) Description 07/10/2025 10:00 AM EDT Office Visit [facility] Neurology [address] [facility] [address] [place] [address] [place] [address] [place] [address] [address] [place] [address] documented as of this encounter Visit Diagnoses Not on filedocumented in this encounter Care Teams Pelt Salter Relationship Specialty Start Date End Date Marly Kumar, DUNG [address] [place] [place] [address] PCP - General Nurse Practitioner 09/22/24 documented as of this encounter
--- OUTSIDE RECORDS SUMMARY | 2025-06-19 13:54 | XMS_ITS | Encounter Summary ---
Author Organization [employer] ([place], [place], [place], [place]) Address [address] [place] [address] Care Team Providers Care Industrial Maintenance Electrician Name Role Phone Marly Kumar PER DIEM NURSE Primary Care Provider [phone] Encounter Details Date Type Department Care Team (Late st Contact Info) Description 07/27/2020 Transcribed Document [facility] Family [facility] [place] [address] ProviderMiya MD [address] [place] [id number] Social History Tobacco Use Types Packs/Day Years [...] : 1955 Associated Diagnoses: None Author: YADI DUONG MD-LALITO Subjective No clinical event since admission. [...] Oil: 1,000 mg, Oral, Daily Flonase: 1 [place], Nostrils Both, Daily Florastor: 250 mg, Oral, [...] Daily, 60 Cap, 0 Refill(s) Flonase: 1 [place], Nostrils Both, Daily, 0 Refill(s) Florastor: 250 [...] = 1 Cap, Oral, Daily Flonase 1 [place], Nostrils Both, Daily Florastor 250 mg, Oral, [...] Oral, Daily fluticasone 0.05% nasal spray 1 [place], Nostrils Both, Daily furosemide 40 mg tab [...] At risk for sleep apnea / IMO [id number] / Confirmed, Active Problems (17) Angina Arthritis [...] EDT Height Source Stated Height Entry Format [place] Height/Length, MONGOLIAN (ft) 4 ft Height/Length MONGOLIAN 11 Inch CLINICALHEIGHT 149.86 cm Type of Weight Measurement. [place] Weight, est lb 245 lb Estimated Clinical Dosing Weight 111.36 kg Martin Body Weight 43 kg Weight Source Stated 07/26/2020 15:40 EDT Height Source Not Done: Completed and previously documented (Not Done) Height Entry Format Not Done: Completed and previously documented (Not Done) Weight Source Not Done: Completed and previously documented (Not Done) , Vitals Signs (last 24 hrs) Last Charted Minimum Maximum Temp 98.3 (JUL 24 12:00) 98.3 ([facility] 12:00) 98.3 ([facility] 12:00) Apical HR 65 ([facility] 12:00) 65 ([facility] 24 12:00) 65 ([facility] 24 12:00) Resp Rate 18 ([facility] 24 12:00) 18 ([facility] 24 12:00) 18 ([facility] 24 12:00) SBP H 153 ([facility] 24 12:00) H 153 ([facility] 24 12:00) H 153 ([facility] 24 12:00) DBP 81 ([facility] 24 12:00) 81 ([facility] 24 12:00) 81 ([facility] 24 12:00) General: Alert and oriented. Eye: Pupils are equal, round and reactive to light. Neurologic: Normal motor function, No focal deficits, Cranial Nerves II-XII are grossly intact. Results Review Continuous EEG: bilateral temporal slowing Impression and Plan Discussed findings with patient. 1. Continue video EEG monitoring. 2. DVT prophylaxis Electronically signed by Celestine [facility] Conversion Regulatory Affairs Consultant Cerner at 02/19/2023 6:41 PM CDT documented in this encounter Plan of Treatment Upcoming Encounters Date Type Department Care Team (Late st Contact Info) Description 07/10/2025 10:00 AM EDT Office Visit [facility] Neurology [address] [place] [address] [address] [place] [address] [place] [address] [place] [address] [address] [place] [address] documented as of this encounter Visit Diagnoses Not on filedocumented in this encounter Care Teams Industrial Maintenance Electrician Relationship Specialty Start Date End Date Marly Kumar, DUNG [address] [place] [address] PCP - General Nurse Practitioner 09/22/24 documented as of this encounter
--- OUTSIDE RECORDS SUMMARY | 2025-06-19 13:54 | XMS_ITS | Encounter Summary ---
Author Organization [facility] Address [address] [place] [address] Care Team Providers Care Security Incident Response Specialist Name Role Phone Marly Kumar APRN Primary Care Provider [phone] Encounter Details Date Type Department Care Team (Late st Contact Info) Description 06/12/2025 Telephone [facility] CARDIOLOGY [address] [place] [address] Dinorah Christiansen MD [address] [place] [address] Social History Tobacco Use Types [...] encounter Miscellaneous Notes * Telephone Encounter - Kristie Shah MA - 06/12/2025 2:55 PM EDT Called to let Melissa know it was ok to fill -- they stated someone already called back to let them know. Completing message. * Telephone Encounter - Dinorah Christiansen MD - 06/12/2025 2:47 PM EDT Ok to fill as requested * Telephone Encounter - Marie Hudson MA - 06/12/2025 1:27 PM EDT I spoke to Melissa at [facility]. She states Bisoprolol 2.5 mg is on backorder. Would like to fill 5 mg and take 1/2 tab qd. * Telephone Encounter - Miryam Blanton RegSched Rep - 06/12/2025 1:04 PM EDT MELISSA FROM [facility] CALLED ASKING ABOUT A MEDICATION PT NEEDS FILLED, NO CLINICAL STAFF AVAILABLE AT THE TIME. SHE CAN BE REACHED @ [phone]. THANKS. documented in this encounter Plan of Treatment Upcoming Encounters Date Type Department Care Team (Late st Contact Info) Description 09/20/2025 2:30 PM EST Office Visit [facility] CARDIOLOGY [address] [place] [address] [place] [address] Kailey Porras APRN [address] [place] [address] 09/20/2025 2:30 PM EST Clinical Support No Requirements [facility] CARDIOLOG[facility] CLINIC [place] [address] documented as of this encounter Visit Diagnoses Not on filedocumented in this encounter Care Teams Security Incident Response Specialist Relationship Specialty Start Date End Date Marly Kumar APRN [facility] [place] [id number] PCP - General Family Medicine 07/06/24 documented as of this encounter
--- OUTSIDE RECORDS SUMMARY | 2025-06-19 13:54 | XMS_ITS | Encounter Summary ---
Author Organization [employer] ([place], [place], [place], [place]) Address [address] [place] [address] Care Team Providers Care Polls Or Surveys Interviewer Name Role Phone Marly Kumar IT SERVICE DELIVERY MANAGER Primary Care Provider [phone] Encounter Details Date Type Department Care Team (Late st Contact Info) Description 07/27/2020 Transcribed Document [facility] Family Medicine [facility] [place] [address] ProviderMiya MD [address] [place], [place] [address] Social History Tobacco Use Types Packs/Day Years [...] Insurance 1 Health Plan: MEDICARE Policy Number: [id number] Authorization Number: Insurance 2 Health Plan: MEDICAID OF [place] Policy Number: [id number] Authorization Number: Insurance Primary Name : MEDICARE Policy Number: [id number] Authorized Service Begin Date-Primary : 07/26/2020 EDT Historical Authorization Comments-Primary : No Authorization Comments Found DRISS DEL REAL RN - 07/27/2020 12:35 EDT Electronically signed by Celestine [facility] Conversion Press Set Up Person Cerner at 02/19/2023 6:32 PM CDT documented in this encounter Plan of Treatment Upcoming Encounters Date Type Department Care Team (Late st Contact Info) Description 07/10/2025 10:00 AM EDT Office Visit [facility] Neurology [address] [facility] [address] [place] [address] Rad Duong MD [address] [facility] [address] [address] documented as of this encounter Visit Diagnoses Not on filedocumented in this encounter Care Teams Polls Or Surveys Interviewer Relationship Specialty Start Date End Date Marly Kumar, DUNG [address] [place] [address] PCP - General Nurse Practitioner 09/22/24 documented as of this encounter
--- OUTSIDE RECORDS SUMMARY | 2025-06-19 13:54 | XMS_ITS | Encounter Summary ---
Author Organization [facility] Address [address] [place] [address] Care Team Providers Care Blending Machine Operator Name Role Phone Marly Kumar SHAKIRA Primary Care Provider [phone] Reason for Visit * Reason Comments Med Refill Encounter Details Date Type Department Care Team (Late st Contact Info) Description 06/09/[address] [facility] CARDIOLOGY [address] [place] [address] Dinorah Christiansen MD [address] [place] [address] Med Refill Social History Tobacco Use Types [...] Description 09/20/2025 2:30 PM EST Office Visit [facility] C[facility] [address] [place] [address] Kailey Porras APRN [address] [place] [address] 09/20/2025 2:30 PM EST Clinical Support No Requirements [facility] [address] [place] [address] documented as of this encounter Visit Diagnoses Diagnosis Hypomagnesemia Disorders of magnesium metabolism documented in this encounter Care Teams Blending Machine Operator Relationship Specialty Start Date End Date Marly Kumar APRN [address] [place] [id number] PCP - General Family Medicine 07/06/24 documented as of this encounter
--- OUTSIDE RECORDS SUMMARY | 2025-06-19 13:54 | XMS_ITS | Encounter Summary ---
Author Organization [facility] Address [address] [place] [address] Care Team Providers Care Top Lifter Name Role Phone Marly Kumar APRN Primary Care Provider [phone] Encounter Details Date Type Department Care Team (Late st Contact Info) Description 04/25/2025 Telephone [facility] CARDIOLOGY [address] [place] [address] iDnorah Christiansen MD [address] [place] [address] Social History Tobacco Use Types Packs/Day [...] encounter Miscellaneous Notes * Telephone Encounter - Tona Luciano MA - 04/25/2025 11:35 AM EDT Patient was on your schedule today for PM check. Just an FYI. * Telephone Encounter - Miryam Blanton RegSched Rep - 04/25/2025 11:21 AM EDT DENNIS HINOJOSA CALLED SPOKE WITH MARTA, SHE STATED PT HAD A FIRESTORM SEIZURE , PT WAS TRANSFERRED BY EMS TO [facility]. documented in this encounter Plan of Treatment Upcoming Encounters Date Type Department Care Team (Late st Contact Info) Description 09/20/2025 2:30 PM EST Office Visit [facility] CARDIOLOGY [address] [place] [address] [place] [address] Kailey Porras APRN [address] [place] [address] 09/20/2025 2:30 PM EST Clinical Support No Requirements [facility] [place] [address] documented as of this encounter Visit Diagnoses Not on filedocumented in this encounter Care Teams Top Lifter Relationship Specialty Start Date End Date Marly Kumar APRN [address] [place] [id number] PCP - General Family Medicine 07/06/24 documented as of this encounter
--- OUTSIDE RECORDS SUMMARY | 2025-06-19 13:54 | XMS_ITS | Encounter Summary ---
Author Organization [facility] Address [address] [place] [address] Care Team Providers Care Anesthesia Resident Name Role Phone Marly Kumar APRN Primary Care Provider [phone] Encounter Details Date Type Department Care Team (Late st Contact Info) Description 05/02/2025 Telephone [facility] CARDIOLOG[facility] [address] [place] [address] Dinorah Christiansen MD [address] [place] [address] Social History Tobacco Use Types Packs/Day [...] Encounter - Joseph Orr RegSched Rep - 05/02/2025 10:59 AM EDT A user error has taken place: encounter opened in error, closed for administrative reasons. documented in this encounter Plan of Treatment Upcoming Encounters Date Type Department Care Team (Late st Contact Info) Description 09/20/2025 2:30 PM EST Office Visit [facility] CARDIOLOGY [address] [place] [address] [place] [address] Kailey Porras APRN [address] [place] [address] 09/20/2025 2:30 PM EST Clinical Support No Requirements [facility] C[facility] [address] [place] [address] [place] [address] documented as of this encounter Visit Diagnoses Not on filedocumented in this encounter Care Teams Anesthesia Resident Relationship Specialty Start Date End Date Marly Kumar APRN [address] [place] [address] PCP - General Family Medicine 07/06/24 documented as of this encounter
--- OUTSIDE RECORDS SUMMARY | 2025-06-19 13:54 | XMS_ITS | Encounter Summary ---
Author Organization [facility] ([place], [place], [place], [place]) Address [address] [place] [address] Care Team Providers Care Shell Fisherman Name Role Phone Marly Kumar SCREEN REPAIRER CRUSHER Primary Care Provider [phone] Encounter Details Date Type Department Care Team (Late st Contact Info) Description 07/28/[address] [facility] [place] [address] [place] [address] ProviderMiya MD [address] [place] [address] Social History Tobacco Use Types Packs/Day [...] Miya ProviderMD - 07/28/2020 10:08 AM CDT [address] [place] [address] Patient Copy Patient Information: Name: RENNY VILLA Current Date: 07/28/2020 10:08:21 : 1955 Patient Address: [address] [facility] [address] [facility] [address] Patient Attending Physician: YADI DUONG MD-NEU Primary Care Provider: MARIE OMER (REF)ALEJA Primary Care Provider Discharge Diagnosis: Abnormal electroencephalogram (EEG); Localization-related (focal) (partial) idiopathic epilepsy and epileptic syndromes with seizures of localized onset, intractable, without status epilepticus Comment: Follow-up Instructions: With: Address: When: YADI DUONG [address] [place] [address], [address] [place] [address] Business (1) Within 6 months Discharge Instructions: [...] Oral Every Day. fluticasone nasal (Flonase) 1 [place](s) Nostrils Both Every Day. furosemide (Lasix 40 [...] Assistance with quitting is available by contacting 9-985-KFXD-NOW. This is a free resource providing counseling, [...] Be sure to sign up for the [employer] patient portal, which gives you 25/05 access to your medical information ??? including these discharge instructions ??? using your computer, smartphone, or tablet. Just go to [employer] to get started. Questions? Call . [facility] would like to thank you for allowing us to assist you with your healthcare needs. DAISY Richter JACKQUELINE F, (or ict sales representative) have received the above patient education materials/instructions and have verbalized understanding: Patient Signature _ Date/Time Patient Mold Technician Signature (if needed) Date/Time Clinician/Hospital Mold Technician Signature (if needed) Date/Time documented in this encounter Plan of Treatment Upcoming Encounters Date Type Department Care Team (Late st Contact Info) Description 07/10/2025 10:00 AM EDT Office Visit [facility] Neurology [address] [facility] [address] [place] [address] Yadi Duong MD [address] [facility] [address] [place] [address] documented as of this encounter Visit Diagnoses Not on filedocumented in this encounter Care Teams Shell Fisherman Relationship Specialty Start Date End Date Marly Kumar NP [address] [place] [address] PCP - General Nurse Practitioner 09/22/24 documented as of this encounter
--- NOTE | 2025-06-19 14:23 | ED_ITS ---
Discharge Plan Disposition Patient Disposition: Home, Self-Care Prescriptions Prescriptions: No Action quetiapine 25 mg tablet 12.5 mg PO HS Patient Comments: take ONE-HALF TABLET BY MOUTH every night FOR SLEEP nystatin 100,000 unit/gram cream 1 applic topical DAILY loratadine 10 mg tablet 10 mg PO DAILY Patient Comments: TAKE ONE TABLET BY MOUTH DAILY budesonide-formoterol 160-4.5 mcg/actuation HFA aerosol inhaler 2 puff inhalation BID fenofibrate nanocrystallized 145 mg tablet 145 mg PO DAILY Patient Comments: TAKE ONE TABLET BY MOUTH AT BEDTIME levothyroxine 88 mcg capsule 88 mcg PO DAILY Rx Instructions: Take 1 tablet by mouth daily on empty stomach before breakfast mirtazapine 30 mg tablet 30 mg PO HS Patient Comments: TAKE ONE TABLET BY MOUTH AT BEDTIME tizanidine 4 mg tablet 4 mg PO DAILY PRN (Reason: muscle spasms) Rx Instructions: Take 1/2 to 1 tablet every 6 hours as needed for pain levetiracetam [Keppra] 1,000 mg tablet 1,000 mg PO BID Qty: 180 3RF acetaminophen 500 MG tablet 1,000 mg PO BIDP PRN (Reason: pain) bisoprolol fumarate 2.5 mg tablet 2.5 mg PO DAILY furosemide 40 mg tablet 40 mg PO BID ropinirole 1 mg tablet 1 mg PO HS lactulose 10 gram/15 mL Solution 20 g PO DAILY 30 Days Qty: 1200 0RF omeprazole 40 capsule,delayed release(DR/EC) 40 mg PO DAILY atorvastatin 40 MG tablet 40 mg PO DAILY potassium chloride 20 MEQ tablet 20 meq PO BID aspirin 81 MG tablet,chewable 81 mg PO DAILY nitroglycerin 0.4 MG tablet, sublingual 0.4 mg sublingual Q5MINP PRN (Reason: Chest Pain) ondansetron 8 MG tablet,disintegrating 8 mg PO Q8HP PRN (Reason: Nausea) magnesium oxide 400 mg (241.3 mg magnesium) tablet 400 mg PO DAILY Referrals Follow up/Referrals: Provider,Referral, MD [Primary Care Provider, Medical] - See instructions Activity Restrictions/Add. Instructions Additional Instructions/Restrictions: Follow-up with your suppository molding machine operator, Dr. Christiansen, this week for reevaluation. If you develop any new or worsening symptoms, or if you become concerned for your health for any reason, return to the emergency department for evaluation Clinical Impressions Clinical Impression: Chest pain Print Language Print Language: [place] Discharge ED Provider: Kin Tobar General Adult HPI <Renato Anderson, - Last Filed: 06/19/25 17:14> General Chief complaint: Recheck/Abnormal Lab/Rx Stated complaint: Defib shock Time Seen by Provider: 06/19/25 13:36 Mode of Arrival: Ambulatory Source of Information: Patient and EMS Description of Symptoms (Recalled from ER Triage Doc. by RN): Patient presents to ED via [facility] after they received a call for a defibrillator shocking the patient. On arrival EMS reports patient was A/O x3 denies any chest pain. Patient reports this happened before after a seizure about am onth ago. EKG performed on arrival. History of Present Illness HPI narrative: This is a 69-year-old female patient, with a past medical history of ischemic cardiomyopathy, coronary artery disease status post multiple stents, congestive heart failure status post dual-chamber pacemaker/defibrillator installation, who is presenting to the emergency department today for evaluation of chest pain. The patient states that earlier this morning she was at a senior citizen home and they were playing seated balloon Zip[employer]ball which she felt was exertional activity. While playing this game she began experiencing chest pain followed by a shocking sensation in her chest that she believes to be a defibrillation from her AICD. She states that her pain in her chest has been relatively constant since that time. Her pain is nonradiating in nature. She is not experiencing any shortness of breath. She has not had any worsening edema in her lower extremities and she has not noticed any lower extremity erythema Related Data Home Medications ?Medication ?Instructions ?Recorded ?Confirmed atorvastatin 40 mg tablet 40 mg PO DAILY 04/23/1905/02 omeprazole 40 mg capsule,delayed 40 mg PO DAILY 05/16/25 release aspirin 81 mg chewable tablet 81 mg PO DAILY 04/24/19 05/16/25 nitroglycerin 0.4 mg sublingual 0.4 mg sublingual Q5MI [employer] PRN Chest 04/24/19 05/16/25 tablet Pain ondansetron 8 mg disintegrating 8 mg PO Q8HP PRN Nause a 04/24/19 05/16/25 tablet potassium chloride 20 mEq 20 meq PO BID POTASSIUM SUPP LEMENT 04/24/19 05/16/25 tablet,extended release(part/cryst) acetaminophen 500 mg tablet 1,000 mg PO BIDP PRN pain 08/08/19 05/16/25 budesonide-formoterol HFA 160 2 puff inhalation BID 05/16/25 mcg-4.5 mcg/actuation aerosol inhaler fenofibrate nanocrystallized 145 145 mg PO DAILY 01/2505/16/25 mg tablet levothyroxine 88 mcg capsule 88 mcg PO DAILY 01/25/25 05/16/25 loratadine 10 mg tablet 10 mg PO DAILY 01/25/2505/02 magnesium oxide 400 mg (241.3 mg 400 mg PO DAILY 01/2505/16/25 magnesium) tablet mirtazapine 30 mg tablet 30 mg PO HS 01/25/25 5 nystatin 100,000 unit/gram topical 1 applic topical DA MALLORY 01/25/25 05/16/25 cream quetiapine 25 mg tablet 12.5 mg PO HS 01/25/2504/27 tizanidine 4 mg tablet 4 mg PO DAILY PRN muscle spa sms 01/25/25 05/16/25 bisoprolol fumarate 2.5 mg tablet 2.5 mg PO DAILY 04/0305/16/25 furosemide 40 mg tablet 40 mg PO BID 04/27/25 ropinirole 1 mg tablet 1 mg PO HS 04/27/25 05/16/25 Previous Rx's ?Medication ?Instructions ?Recorded lactulose 10 gram/15 mL oral 20 g (30 mL) PO DAILY 30 days 04/28/25 solution #1,200 mL levetiracetam 1,000 mg tablet 1,000 mg PO BID #180 tab s 05/16/25 (Keppra) Allergies Allergy/AdvReac Type Severity Reaction Status Date / Time alendronate sodium (From Allergy Unknown I-HIVES Verified 05/16/25 09:52 FOSAMAX) Penicillins (PENICILLINS) Allergy Unknown I-HIVES Verified 05/16/25 09:52 Sulfa (Sulfonamide Allergy Unknown I-HIVES Verified 05/16/25 09:52 Antibiotics) (SULFA (SULFONAMIDE ANTIBIOTICS)) gabapentin Allergy Verified 05/16/25 09:52 [facility] <Renato Anderson DO - Last Filed: 06/19/25 17:14> [facility] Disclaimer: The information contained in this section may have been updated after the patient was seen, as this information can be updated by other users. Medical History Seizure Atypical seizures cannot exclude psychogenic etiology, PNES. History of pacemaker Arthritis Seizures Renal insufficiency Osteoporosis Heart attack Migraine Hyperlipemia Depression Dementia CHF (congestive heart failure) Afib Surgical History Hx of hysterectomy Hx of lumpectomy Hx of cholecystectomy Family History Other Diabetes Hyperlipidemia Hypertension Social History Smoking Status: Former smoker tobacco type: cigarettes packs per day: 2 second hand exposure: No alcohol intake: never substance use type: other current occupational status: disabled Travel in the last 8 weeks?: None household members: other housing: care home current occupational exposures/hazards: No caffeine: Yes Have you lived/traveled outside [place] in past 30 days?: No Contact w/someone who lives/traveled outside US past 30 days?: No Exposure to someone with infectious disease in past 14 days?: No Do you have a fever (greater than 100.4 F or 38 C)?: No Have you tested positive for COVID-19?: No Exposed to someone with COVID-19 in past 14 days?: No Do you have a sore throat?: No Do you have a cough?: No Do you have any weakness?: No Do you have any diarrhea?: No Are you experiencing any unusual bleeding?: No Do you have any muscle aches/pain?: No Do you have any abdominal pain?: No Are you experiencing loss of taste or smell?: No Other Medical History Have you received the Flu Vaccine for this season: No Have you received the Pneumonia Vaccine: No <Renato Anderson DO - Last Filed: 06/19/25 17:14> ROS Obtained: Yes Systems reviewed as appropriate & no additional complaints except as documented Physical Exam <Renato Anderson DO - Last Filed: 06/19/25 17:14> General General appearance: other (See MDM) Respiratory Respiratory exam: Present other (See MDM) Cardiovascular Cardiovascular exam: Present other (See MDM) Neurological Exam Neurological exam: Present other (See MDM) Medical Decision Making <Renato Anderson DO - Last Filed: 06/19/25 17:14> Medical Records Medical records reviewed: Yes I reviewed the patient's medical records. Screening: Per USPSTF and CDC recommendations, given the prevalence of disease in our region, it is our hospital?s policy to screen for HIV and viral Hepatitis for all patients aged 18 and over and those with ongoing risk factors. Marc Inquiry Pt receiving controlled substance: No Marc was queried for this patient: No Vital Signs: 06/19/25 13:29 06/19/25 13:35 06/19/25 14:52 Temperature 97.8 F 97.8 F Temperature Source Oral Oral Pulse Rate 66 Pulse Rate [Right Brachial] 65 65 Respiratory Rate 18 18 15 Blood Pressure 138/76 Blood Pressure [Right Arm] 127/61 127/61 Blood Pressure Mean Blood Pressure Mean [Right Arm] 83 83 Blood Pressure Source [Right Arm] Automatic Cuff Automatic Cuff Blood Pressure Position [Right Arm] Supine Sitting 02 Sat by Pulse Oximetry 98 97 95 Oxygen Delivery Method Room Air Room Air 06/19/25 15:00 06/19/25 15:32 06/19/25 16:01 Temperature Temperature Source Pulse Rate 63 66 66 Pulse Rate [Right Brachial] Respiratory Rate 15 17 18 Blood Pressure 122/76 145/71 H 113/82 Blood Pressure [Right Arm] Blood Pressure Mean 85 87 Blood Pressure Mean [Right Arm] Blood Pressure Source [Right Arm] Blood Pressure Position [Right Arm] 02 Sat by Pulse Oximetry 97 98 96 Oxygen Delivery Method 06/19/25 16:30 06/19/25 17:00 06/19/25 17:30 Temperature Temperature Source Pulse Rate 66 67 64 Pulse Rate [Right Brachial] Respiratory Rate 18 15 17 Blood Pressure 156/66 H 147/65 H 142/72 H Blood Pressure [Right Arm] Blood Pressure Mean 85 92 95 Blood Pressure Mean [Right Arm] Blood Pressure Source [Right Arm] Blood Pressure Position [Right Arm] 02 Sat by Pulse Oximetry 98 97 97 Oxygen Delivery Method 06/19/25 18:00 06/19/25 19:25 Temperature 98.4 F Temperature Source Pulse Rate 62 64 Pulse Rate [Right Brachial] Respiratory Rate 17 20 Blood Pressure 109/91 L 168/78 H Blood Pressure [Right Arm] Blood Pressure Mean 94 Blood Pressure Mean [Right Arm] Blood Pressure Source [Right Arm] Blood Pressure Position [Right Arm] 02 Sat by Pulse Oximetry 96 Oxygen Delivery Method Lab Data Lab Results 06/19/25 14:48: WBC 5.0, RBC 4.47, Hgb 13.5, Hct 41.6, MCV 93.1, MCH 30.2, MCHC 32.5, RDW 13.2, Plt Count 205, MPV 11.5 H, Neut % (Auto) 56.1, Lymph % (Auto) 32.1, [place] % (Auto) 9.4 H, Eos % (Auto) 1.6, Baso % (Auto) 0.6, Neut # (Auto) 2.8, Lymph # (Auto) 1.6, [place] # (Auto) 0.5, Eos # (Auto) 0.1, Baso # (Auto) 0.0, Sodium 140, Potassium 3.8, Chloride 102, Carbon Dioxide 28, Anion Gap 13.8, BUN 28 H, Creatinine 1.10 H, Estimated Creat Clear 60, Estimated GFR 49 L, Est GFR ( Amer) 59, Glucose 104 H, Calcium 9.6, Total Bilirubin 0.5, AST 42 H, ALT 21, Alkaline Phosphatase 77, Troponin I < 0.01, NT-Pro-B Natriuret Pep 162 H , Total Protein 7.9 D, Albumin 4.7, Globulin 3.2, Albumin/Globulin Ratio 1.5, Lipase 147, HCV Ab WEI w/Rflx PCR Qn Negative, HIV Ag/Ab Combo Qual Negative 06/19/25 17:37: Troponin I < 0.01 06/19/25 14:48 06/19/25 14:48 Orders (Tests/Meds): ORDERS Category Date Time Status CXR --portable [XR chest portable] Stat Exams 06/19/25 13:50 Completed BNP [NT Pro Brain Natriuretic Pep.] Stat Lab 06/19/25 14:48 Completed CBC w/Auto Diff [Complete Blood Count Auto Diff] Stat Lab 06/19/25 14:48 Completed CMP [Comprehensive Metabolic Panel] Stat Lab 06/19/25 14:48 Completed HIV Combo Stat Lab 06/19/25 14:48 Completed Hepatitis C Ab Qual. W/ RFX Stat Lab 06/19/25 14:48 Completed Lipase Stat Lab 06/19/25 14:48 Completed Troponin I Q3H Lab 06/19/25 17:37 Completed Troponin I Stat Lab 06/19/25 14:48 Completed ECG Data Tracing #1: I reviewed this ECG and interpreted as documented below: EKG personally interpreted by me demonstrates normal sinus rhythm with a rate of 65 bpm, normal axis, no MA prolongation, narrow QRS, no QTc prolongation. No ST elevation or depression. No overt signs of ischemia or arrhythmia Medical Decision Narrative: In summary this is a 69-year-old female patient who is presenting to the emergency department today for evaluation of chest pain that developed during semiexertional activity as well as what she perceives to be a delivered shock from her AICD. Comorbidities include ischemic cardiomyopathy, CAD status post stenting, and heart failure with a dual chamber pacemaker and defibrillator. On initial evaluation of the patient they were resting comfortably in no acute distress and nontoxic in appearance. They are hemodynamically stable, saturating well room air, and are neurologically intact. On physical examination of the patient her heart and lungs are clear to auscultation bilaterally. She has no lower extremity pitting edema or asymmetric erythema. Abdomen is soft and nontender to palpation. She appears well-hydrated. radial pulses are symmetric bilaterally. Differential diagnosis includes ACS/MA, arrhythmia, electrolyte derangement, acute kidney injury, pneumothorax, pneumonia, among others. Workup was initiated with hematologic labs as well as an EKG and a chest x-ray. Labs have been personally interpreted by me. Labs are largely unremarkable and nonactionable. Her initial troponin is less than 0.01. On the patient's EKG I do not appreciate any pacer spikes which is somewhat inconsistent with the history that the patient has provided to me. Chest x-ray personally turbid by me demonstrates no lobar consolidation or pleural effusion. Official radiology read is in agreement and states that there is no acute abnormality. I have reached out to Dr. Christiansen who is the patient's suppository molding machine operator. Dr. Christiansen has been very helpful in providing collateral history. She is the one who has told me about the patient's history of coronary artery disease status post multiple stents as well as her ischemic cardiomyopathy, heart failure, and installation of her pacemaker and defibrillator. She states that this pacemaker is a dual-chamber pacemaker that is programmed to pace if the patient's intrinsic rhythm drops below 60 bpm. She states that the patient is not pacemaker dependent and this is the reason why we are not seeing pacer spikes on EKG. She also states that she receives remote alerts for her [employer] pacemaker patients, whenever they are not defibrillated by their AICD. I have asked Dr. Christiansen about her preferred disposition for this patient. She states that if the patient's troponins are elevated that she would like for her to be admitted here in our hospital and to undergo further workup with cardiology. However, if the patient's troponins are negative she will have the patient follow-up in her clinic this week for formal evaluation of the pacemaker and further workup of her underlying heart disease. At the time of shift change this patient's second troponin was pending. This case was handed off to Dr. Tobar who will follow up on the second troponin and disposition the patient appropriate. <Kin Tobar MD - Last Filed: 06/20/25 14:41> Vital Signs: 06/19/25 13:29 06/19/25 13:35 06/19/25 14:52 Temperature 97.8 F 97.8 F Temperature Source Oral Oral Pulse Rate 66 Pulse Rate [Right Brachial] 65 65 Respiratory Rate 18 18 15 Blood Pressure 138/76 Blood Pressure [Right Arm] 127/61 127/61 Blood Pressure Mean Blood Pressure Mean [Right Arm] 83 83 Blood Pressure Source [Right Arm] Automatic Cuff Automatic Cuff Blood Pressure Position [Right Arm] Supine Sitting 02 Sat by Pulse Oximetry 98 97 95 Oxygen Delivery Method Room Air Room Air 06/19/25 15:00 06/19/25 15:32 06/19/25 16:01 Temperature Temperature Source Pulse Rate 63 66 66 Pulse Rate [Right Brachial] Respiratory Rate 15 17 18 Blood Pressure 122/76 145/71 H 113/82 Blood Pressure [Right Arm] Blood Pressure Mean 85 87 Blood Pressure Mean [Right Arm] Blood Pressure Source [Right Arm] Blood Pressure Position [Right Arm] 02 Sat by Pulse Oximetry 97 98 96 Oxygen Delivery Method 06/19/25 16:30 06/19/25 17:00 06/19/25 17:30 Temperature Temperature Source Pulse Rate 66 67 64 Pulse Rate [Right Brachial] Respiratory Rate 18 15 17 Blood Pressure 156/66 H 147/65 H 142/72 H Blood Pressure [Right Arm] Blood Pressure Mean 85 92 95 Blood Pressure Mean [Right Arm] Blood Pressure Source [Right Arm] Blood Pressure Position [Right Arm] 02 Sat by Pulse Oximetry 98 97 97 Oxygen Delivery Method 06/19/25 18:00 06/19/25 19:25 Temperature 98.4 F Temperature Source Pulse Rate 62 64 Pulse Rate [Right Brachial] Respiratory Rate 17 20 Blood Pressure 109/91 L 168/78 H Blood Pressure [Right Arm] Blood Pressure Mean 94 Blood Pressure Mean [Right Arm] Blood Pressure Source [Right Arm] Blood Pressure Position [Right Arm] 02 Sat by Pulse Oximetry 96 Oxygen Delivery Method Lab Data Lab Results 06/19/25 14:48: WBC 5.0, RBC 4.47, Hgb 13.5, Hct 41.6, MCV 93.1, MCH 30.2, MCHC 32.5, RDW 13.2, Plt Count 205, MPV 11.5 H, Neut % (Auto) 56.1, Lymph % (Auto) 32.1, [place] % (Auto) 9.4 H, Eos % (Auto) 1.6, Baso % (Auto) 0.6, Neut # (Auto) 2.8, Lymph # (Auto) 1.6, [place] # (Auto) 0.5, Eos # (Auto) 0.1, Baso # (Auto) 0.0, Sodium 140, Potassium 3.8, Chloride 102, Carbon Dioxide 28, Anion Gap 13.8, BUN 28 H, Creatinine 1.10 H, Estimated Creat Clear 60, Estimated GFR 49 L, Est GFR ( Amer) 59, Glucose 104 H, Calcium 9.6, Total Bilirubin 0.5, AST 42 H, ALT 21, Alkaline Phosphatase 77, Troponin I < 0.01, NT-Pro-B Natriuret Pep 162 H , Total Protein 7.9 D, Albumin 4.7, Globulin 3.2, Albumin/Globulin Ratio 1.5, Lipase 147, HCV Ab WEI w/Rflx PCR Qn Negative, HIV Ag/Ab Combo Qual Negative 06/19/25 17:37: Troponin I < 0.01 Orders (Tests/Meds): ORDERS Category Date Time Status CXR --portable [XR chest portable] Stat Exams 06/19/25 13:50 Completed BNP [NT Pro Brain Natriuretic Pep.] Stat Lab 06/19/25 14:48 Completed CBC w/Auto Diff [Complete Blood Count Auto Diff] Stat Lab 06/19/25 14:48 Completed CMP [Comprehensive Metabolic Panel] Stat Lab 06/19/25 14:48 Completed HIV Combo Stat Lab 06/19/25 14:48 Completed Hepatitis C Ab Qual. W/ RFX Stat Lab 06/19/25 14:48 Completed Lipase Stat Lab 06/19/25 14:48 Completed Troponin I Q3H Lab 06/19/25 17:37 Completed Troponin I Stat Lab 06/19/25 14:48 Completed Medical Decision Narrative: In summary this is a 69-year-old female patient who is presenting to the emergency department today for evaluation of chest pain that developed during semiexertional activity as well as what she perceives to be a delivered shock from her AICD. Comorbidities include ischemic cardiomyopathy, CAD status post stenting, and heart failure with a dual chamber pacemaker and defibrillator. On initial evaluation of the patient they were resting comfortably in no acute distress and nontoxic in appearance. They are hemodynamically stable, saturating well room air, and are neurologically intact. On physical examination of the patient her heart and lungs are clear to auscultation bilaterally. She has no lower extremity pitting edema or asymmetric erythema. Abdomen is soft and nontender to palpation. She appears well-hydrated. radial pulses are symmetric bilaterally. Differential diagnosis includes ACS/MA, arrhythmia, electrolyte derangement, acute kidney injury, pneumothorax, pneumonia, among others. Workup was initiated with hematologic labs as well as an EKG and a chest x-ray. Labs have been personally interpreted by me. Labs are largely unremarkable and nonactionable. Her initial troponin is less than 0.01. On the patient's EKG I do not appreciate any pacer spikes which is somewhat inconsistent with the history that the patient has provided to me. Chest x-ray personally turbid by me demonstrates no lobar consolidation or pleural effusion. Official radiology read is in agreement and states that there is no acute abnormality. I have reached out to Dr. Christiansen who is the patient's suppository molding machine operator. Dr. Christiansen has been very helpful in providing collateral history. She is the one who has told me about the patient's history of coronary artery disease status post multiple stents as well as her ischemic cardiomyopathy, heart failure, and installation of her pacemaker and defibrillator. She states that this pacemaker is a dual-chamber pacemaker that is programmed to pace if the patient's intrinsic rhythm drops below 60 bpm. She states that the patient is not pacemaker dependent and this is the reason why we are not seeing pacer spikes on EKG. She also states that she receives remote alerts for her [employer] pacemaker patients, whenever they are not defibrillated by their AICD. I have asked Dr. Christiansen about her preferred disposition for this patient. She states that if the patient's troponins are elevated that she would like for her to be admitted here in our hospital and to undergo further workup with cardiology. However, if the patient's troponins are negative she will have the patient follow-up in her clinic this week for formal evaluation of the pacemaker and further workup of her underlying heart disease. At the time of shift change this patient's second troponin was pending. This case was handed off to Dr. Tobar who will follow up on the second troponin and disposition the patient appropriate.' Kin Tobar MD At the assumption of my care, repeat troponin is pending. Patient remained on continuous telemetry during her entire ED visit and remained stable. Her second troponin was also negative at less than 0.01. Given this, is felt that she is appropriate for close follow-up with her suppository molding machine operator and was given strict return precautions. She was then discharged from the emergency department in stable condition. Critical Care <Renato Anderson DO - Last Filed: 06/19/25 17:14> Critical Care Time Critical Care Time: No
[2025-06-19 15:04] LABS: Hematocrit 41.6 % (37.0-47.0); Hemoglobin 13.5 g/dL (12.2-16.2); Immature Granulocytes % 0.2 %; Mean Corpuscular HGB Conc 32.5 g/dL (31.8-35.4); Mean Corpuscular Hemoglobin 30.2 pg (27.0-31.2); Mean Corpuscular Volume 93.1 fl (81-99); Nucleated Red Blood Cells % 0 %; Platelet Count 205 K/mm3 (142-424); Red Blood Count 4.47 M/mm3 (4.20-5.40); Red Cell Distribution Width-SD 45.1 fL; White Blood Count 5.0 K/mm3 (4.8-10.8)
[2025-06-19 15:10] LABS: Albumin Level 4.7 g/dl (3.5-5.0); Chloride 102 mmol/L (98-107)
[2025-06-19 15:11] LABS: Potassium 3.8 mmoL/L (3.5-5.1); Sodium 140 mmol/L (136-145)
[2025-06-19 15:13] LABS: Alanine Aminotransferase 21 U/L (12-78); Anion Gap 13.8 mEq/L (5-15); Aspartate Amino Transferase 42 U/L (14-36); Blood Urea Nitrogen 28 mg/dl (7-17); Carbon Dioxide 28 mmol/L (22.0-30.0); Creatinine Clearance Estimated 60 mL/min (50-200); Creatinine,Serum 1.10 mg/dl (0.52-1.04); Estimated Glomerular Filt Rate 49 ml/min (>60); GFR (African American) 59 ML/MIN (>60)
[2025-06-19 15:14] LABS: Albumin/Globulin Ratio 1.5 (1.1-1.8); Alkaline Phosphatase 77 U/L (38-126); Bilirubin,Total 0.5 mg/dl (0.2-1.3); Calcium 9.6 mg/dl (8.4-10.2); Globulin 3.2 g/dL (1.3-3.2); Glucose 104 mg/dl (74-100); Lipase 147 U/L (23-300); Total Protein,Serum 7.9 g/dl (6.3-8.2)
[2025-06-19 15:25] LABS: NT Pro Brain Natriuretic Pep. 162 pg/mL (0-125)
[2025-06-19 15:31] LABS: Troponin I < 0.01 ng/ml (0.00-0.034)
[2025-06-19 16:50] LABS: Hepatitis C Ab Qual. W/ RFX NEGATIVE (Negative)
--- NOTE | 2025-06-19 18:31 | PC.NURSE ---
assisted patient to bathroom at this time.
[2025-06-19 19:12] LABS: Troponin I < 0.01 ng/ml (0.00-0.034)
== END 2025-06-19 19:35 | disposition home or self-care (01) ==
PROVIDERS: Student in an Organized Health Care Education/Training Program; Emergency Provider Student in an Organized Health Care Education/Training Program
DX: R07.89 Other chest pain (principal); I11.0 Hypertensive heart disease with heart failure; I50.9 Heart failure, unspecified; E78.5 Hyperlipidemia, unspecified; Z95.810 Presence of automatic (implantable) cardiac defibrillator; Z87.891 Personal history of nicotine dependence
CPT/HCPCS: 71045; 80053; 83690; 83880; 84484; 85025; 86803; 87389; 93005; 99284

== ENCOUNTER 2025-07-06 09:22 | Emergency (ER) | payer MEDICARE, MEDICAID, SELFPAY ==
--- OUTSIDE RECORDS SUMMARY | 2025-05-22 15:00 | XMS_ITS | Encounter Summary ---
Author Organization [facility] Address [address] [place] [address] Care Team Providers Care Community Mental Health Social Worker Name Role Phone aMrly Kumar APRN Primary Care Provider [phone] Reason for Visit * Reason Comments Pacemaker Check Hospital Follow Up Visit Pt states she w as recently in [facility] and [facility] for elevated ammonia levels. Encounter Details Date Type Department Care Team (Latest Contact Info) Description 05/22/2025 3:00 PM EDT Office Visit [facility] [address] [place] [address] Dinorah Christiansen MD [address] [place], [place] [id number] Elevated troponin (Primary Dx); Coronary artery disease involving [place] coronary artery of [place] heart without angina pectoris; Automatic implantable cardiac defibrillator in situ Social History Tobacco Use Types Packs/Day Years Used Date Smoking Tobacco: Former Cigarettes Passive Smoke Exposure: Past Smokeless Tobacco: Never Tobacco Cessation:Counseling Given: Yes Alcohol Use Standard Drinks/Week Comments Not Currently 0 (1 standard drink = 0.6 oz pur e alcohol) Abuse Screen Answer Date Recorded Feels Unsafe at Home or Work/School no 04/06/2025 Feels Threatened by Someone no 03/2025 Does Anyone Try to Keep You From Having Contact with Others or Doing Things Outside Your Home? no 04/06/2025 Physical Signs of Abuse Present no 04/06/2025 Comments Unknown Sex and Gender Information Value Date Recorded Sex Assigned at Not on file Legal Sex Female 10:34 AM EDT Gender Identity Not on file Sexual Orientation Not on file documented as of this encounter Last Filed Vital Signs Vital Sign Reading Time Taken Comments Blood Pressure 120/80 05/22/2025 3:57 PM EDT Pulse 62 05/22/2025 3:57 PM EDT Temperature - - Respiratory Rate - - Oxygen Saturation 98% 05/22/2025 3:57 PM EDT Inhaled Oxygen Concentration - - Weight 77.1 kg (170 lb) 05/22/2025 3:57 PM EDT Height 152.4 cm (5') 05/22/2025 3:57 PM EDT Body Mass Index 33.2 05/22/2025 3:57 PM EDT documented in this encounter Progress Notes * Dinorah Christiansen MD - 05/22/2025 3:00 PM EDT Images from the original note were not included. Cardiovascular [facility] Consulting Provider Note Date: 05/22/2025 Name: Mu Perkins : 1955 PCP: Marly Kumar APRN Chief Complaint Patient presents with ??? Pacemaker Check ??? Hospital Follow Up Visit Pt states she was recently in [facility] and [facility] for elevated ammonia levels. Subjective History of Present Illness Mu Perkins is a 69 y.o. female who presents today for follow-up from ER visit. Had elevated ammonia levels at [facility]. Troponin was up too. No chest pain or SOA. Every once in a while a small pain but nothing too bad per her. Swelling is worse on the left leg but stable overall. 05/22/2025 Updated Cardiac and sleep related history 1. Ischemic cardiomyopathy -Dual-chamber defibrillator [facility]. 2. CAD -C 02/25/2016 LAD stents patent x 2, 40% RCA 3. ZULEYKA AHI 10 on BiPAP with oxygen 4. CVA 5. COPD 6. Seizure disorder Allergies Allergen Reactions ??? Alendronate Sodium Hives ??? Gabapentin Irritability ??? Penicillins Hives, Itching and Unknown - Low Severity ??? Sulfa Antibiotics Unknown - Low Severity ??? Tamsulosin Other (See Comments) Sick to stomach Current Outpatient Medications: ??? albuterol sulfate HFA (Ventolin HFA) 108 (90 Base) MCG/ACT inhaler, Inhale 2 puffs 4 (Four) Times a Day., Disp: , Rfl: ??? aspirin 81 MG EC tablet, Take 1 tablet by mouth Daily., Disp: , Rfl: ??? atorvastatin (LIPITOR) 40 MG tablet, Take 1 tablet by mouth every night at bedtime., Disp: , Rfl: ??? Bisoprolol Fumarate 2.5 MG tablet, Take 2.5 mg by mouth Daily., Disp: 30 tablet, Rfl: 11 ??? budesonide-formoterol (SYMBICORT) 160-4.5 MCG/ACT inhaler, Inhale 2 puffs 2 (Two) Times a Day.,Disp: , Rfl: ??? calcium carb-cholecalciferol 600-10 MG-MCG tablet per tablet, Take 1 tablet by mouth Daily., Disp: , Rfl: ??? fenofibrate (TRICOR) 145 MG tablet, Take 1 tablet by mouth every night at bedtime., Disp: , Rfl: ??? furosemide (LASIX) 40 MG tablet, Take 1 tablet by mouth 2 (Two) Times a Day., Disp: 180 tablet,Rfl: 1 ??? hydrOXYzine (ATARAX) 25 MG tablet, Take 1 tablet by mouth Every 6 (Six) Hours As Needed., Disp:, Rfl: ??? lactulose (CHRONULAC) 10 GM/15ML solution, take 15 ML BY MOUTH THREE TIMES A DAY NEEDED FOR CONSTIPATION titrate TO maintain 3-5 bowel movements PER DAY], Disp: , Rfl: ??? levETIRAcetam (KEPPRA) 1000 MG tablet, Take 1 tablet by mouth 2 (Two) Times a Day., Disp: , Rfl: ??? levothyroxine (SYNTHROID, LEVOTHROID) 75 MCG tablet, Take 1 tablet by mouth Daily., Disp: , Rfl: ??? loratadine (CLARITIN) 10 MG tablet, Take 1 tablet by mouth Daily., Disp: , Rfl: ??? magnesium oxide (MAG-OX) 400 MG tablet, Take 1 tablet by mouth Daily., Disp: 30 tablet, Rfl: 11 ??? metoclopramide (REGLAN) 5 MG tablet, TAKE ONE TABLET BY MOUTH BEFORE each MEAL, Disp: , Rfl: ??? mirtazapine (REMERON) 30 MG tablet, Take 1 tablet by mouth every night at bedtime., Disp: , Rfl: ??? nitroglycerin (NITROSTAT) 0.4 MG SL tablet, 1 under the tongue as needed for angina, may [id number] for up three doses, Disp: 25 tablet, Rfl: 5 ??? nystatin (MYCOSTATIN) 080692 UNIT/GM cream, Apply 2 applications topically daily to affected areas as needed, Disp: , Rfl: ??? omeprazole (priLOSEC) 40 MG capsule, Take 1 capsule by mouth Daily., Disp: , Rfl: ??? ondansetron ODT (ZOFRAN-ODT) 8 MG disintegrating tablet, DISSOLVE ONE TABLET UNDER THE TONGUE every EIGHT hours NEEDED, FOR NAUSEA, Disp: , Rfl: ??? potassium chloride 10 MEQ CR tablet, Take 1 tablet by mouth 2 (Two) Times a Day. (Patient taking differently: Take 2 tablets by mouth 2 (Two) Times a Day.), Disp: 60 tablet, Rfl: 6 ??? QUEtiapine (SEROquel) 25 MG tablet, Take 0.5-1 tablets by mouth Daily., Disp: , Rfl: ??? rOPINIRole (REQUIP) 1 MG tablet, TAKE ONE TABLET BY MOUTH AT BEDTIME for restless legs, Disp: ,Rfl: ??? tiZANidine (ZANAFLEX) 4 MG tablet, TAKE 1/2 TABLET TO ONE TABLET EVERY SIX HOURS NEEDED FOR PAIN, Disp: , Rfl: ??? ondansetron (ZOFRAN) 4 MG tablet, Take 1 tablet by mouth Every 8 (Eight) Hours As Needed., Disp: , Rfl: Past Medical History: Diagnosis Date ??? Acute on chronic systolic heart failure 11/20/2016 ??? Bronchopneumonia 11/20/2016 Problem Code: J18.0; Problem Code Type: ICD-10; Problem Code: J18.0; Problem Code Type: ICD-10; ??? CAD (coronary artery disease) ??? Carotid stenosis ??? CHF (congestive heart failure) ??? COPD (chronic obstructive pulmonary disease) ??? Hyperlipidemia ??? Hypertension ??? Localized swelling of head 11/12/2023 ??? Pneumococcal pneumonia 11/20/2016 Problem Code: 481; Problem Code Type: ICD-9; Problem Code: 481; Problem Code Type: ICD-9; ??? Seizures ??? Sleep apnea Past Surgical History: Procedure Laterality Date ??? BREAST LUMPECTOMY ??? CARDIAC DEFIBRILLATOR PLACEMENT ??? GALLBLADDER SURGERY ??? GUM SURGERY ??? HERNIA REPAIR ??? HYSTERECTOMY ??? NERVE REPAIR Left ??? SUBCLAVIAN / PULMONARY SHUNT History reviewed. No pertinent family history. Social History Socioeconomic History ??? Marital status: Tobacco Use ??? Smoking status: Former Current packs/day: 1.00 Types: Cigarettes Passive exposure: Past ??? Smokeless tobacco: Never Vaping Use ??? Vaping status: Never Used Substance and Sexual Activity ??? Alcohol use: Not Currently ??? Drug use: Never ??? Sexual activity: Defer Objective Vital Signs: BP 120/80 (BP Location: Right arm, Patient Position: Sitting, Cuff Size: Adult) Pulse 62 Ht 152.4 cm (60 ) Wt 77.1 kg (170 lb) SpO2 98% BMI 33.20 kg/m?? Estimated body mass index is 33.2 kg/m?? as calculated from the following: Height as of this encounter: 152.4 cm (60 ). Weight as of this encounter: 77.1 kg (170 lb). Physical Exam Constitutional: Appearance: Normal appearance. [...] Edema present. Left lower leg: Edema present. Skin: Capillary Refill: Capillary refill takes [...] and all orders for this visit: 1. Elevated troponin (Primary) - Stress Test With Myocardial Perfusion One Day; Future 2. Coronary artery disease involving [place] coronary artery of [place] heart without angina pectoris - Stress Test With Myocardial Perfusion One Day; Future 3. Automatic implantable cardiac defibrillator in situ PLAN: -ICD check showed no new issues -forgot BP log at home, but thinks its mostly ok on meds, going to bring log next OV. -recently mild elevated troponin, will check nuclear stress test to risk assess -lately BP has been high at home and has not needed as much midodrine -no ICD check needed at follow up as check was good today -depending on stress test results can go back to 3-6mo OV Follow Up Return in about 4 weeks (around 06/19/2025) for results of testing, Patient OK with CIVIL ENGINEERING DRAFTER visit. Mary Ellen Christiansen MD Cardiology and Sleep [facility] 05/22/2025 Please note that this explicitly excludes time spent on other separate billable services such as performing procedures or test interpretation, when applicable. This note was created using dictation software which occasionally transcribes nonsensical phrases. Please contact the provider if any clarification is needed. documented in this encounter Plan of Treatment Upcoming Encounters Date Type Department Care Team (Late st Contact Info) Description 08/16/2025 2:45 PM EDT Clinical Support No Requirements [facility] [address] [place] [address] 08/16/2025 3:00 PM EDT Office Visit [facility] [address] [place] [address] Kailey Porras APRN [address] [place] [address] documented as of this encounter Results * External Stress Procedure (06/01/2025 7:58 AM EDT) Narrative 06/01/2025 7:58 AM EDT This procedure was auto-finalized with no dictation required. Procedure Note 06/01/2025 This procedure was auto-finalized with no dictation required. us Dinorah Christiansen MD [facility] CARDIAC SERVICES ORDERABL ES Final Result documented in this encounter Visit Diagnoses Diagnosis Elevated troponin- Primary Other abnormal blood chemistry Coronary artery disease involving [place] coronary artery of [place] heart without angina pectoris Automatic implantable cardiac defibrillator in situ Elevated troponin Other abnormal blood chemistry Coronary artery disease involving [place] coronary artery of [place] heart without angina pectoris documented in this encounter Care Teams Community Mental Health Social Worker Relationship Specialty Start Date End Date Marly Kumar APRN [address] [place] [address] PCP - General Family Medicine 07/06/24 documented as of this encounter
--- OUTSIDE RECORDS SUMMARY | 2025-06-01 07:58 | XMS_ITS | Encounter Summary ---
Author Organization [facility] Address [address] [place] [address] Care Team Providers Care Digital Strategy Director Name Role Phone Marly Kumar TRANSITION SPECIALIST Primary Care Provider [phone] Encounter Details Date Type Department Care Team (Latest Contact Info) Description 06/01/2025 7:58 AM EDT - 06/01/2025 11:59 PM EDT Hospital Encounter [facility] [address] [place] [address] [address] [place] [address] Elevated troponin; Coronary artery disease involving [place] coronary artery of [place] heart without angina pectoris Discharge Disposition: Home or Self Care Social [...] on file documented as of this encounter Medications at Time of Discharge albuterol sulfate HFA (Ventolin HFA) 108 (90 Base) MCG/ACT inhaler Inhale 2 puffs 4 (Four) Times a Day. aspirin 81 MG EC tablet Take 1 tablet by mouth Daily. atorvastatin (LIPITOR) 40 MG tablet Take 1 tablet by mouth every night at bedtime. budesonide-formoter ol (SYMBICORT) 160-4.5 MCG/ACT inhaler Inhale 2 puffs 2 (Two) Times a Day. 4 calcium carb-cholecalcifero l 600-10 MG-MCG tablet per tablet Take 1 tablet by mouth Daily. 4 fenofibrate (TRICOR) 145 MG tablet Take 1 tablet by mouth every night at bedtime. furosemide (LASIX) 40 MG tablet Take 1 tablet by mouth 2 (Two) Times a Day. 180 tablet 1 5 hydrOXYzine (ATARAX) 25 MG tablet Take 1 tablet by mouth Every 6 (Six) Hours As Needed. lactulose (CHRONULAC) 10 GM/15ML solution take 15 ML BY MOUTH THREE TIMES A DAY NEEDED FOR CONSTIPATION titrate TO maintain 3-5 bowel movements PER DAY] 5 levETIRAcetam (KEPPRA) 1000 MG tablet Take 1 tablet by mouth 2 (Two) Times a Day. levothyroxine (SYNTHROID, LEVOTHROID) 75 MCG tablet Take 1 tablet by mouth Daily. loratadine (CLARITIN) 10 MG tablet Take 1 tablet by mouth Daily. metoclopramide (REGLAN) 5 MG tablet TAKE ONE TABLET BY MOUTH BEFORE each MEAL mirtazapine (REMERON) 30 MG tablet Take 1 tablet by mouth every night at bedtime. nitroglycerin (NITROSTAT) 0.4 MG SL tablet 1 under the tongue as needed for angina, may repeat q5mins for up three doses 25 tablet 5 5 nystatin (MYCOSTATIN) 934365 UNIT/GM cream Apply 2 applications topically daily to affected areas as needed 5 omeprazole (priLOSEC) 40 MG capsule Take 1 capsule by mouth Daily. ondansetron (ZOFRAN) 4 MG tablet Take 1 tablet by mouth Every 8 (Eight) Hours As Needed. ondansetron ODT (ZOFRAN-ODT) 8 MG disintegrating tablet DISSOLVE ONE TABLET UNDER THE TONGUE every EIGHT hours NEEDED, FOR NAUSEA potassium chloride 10 MEQ CR tabletIndications:L ocalized edema Take 1 tablet by mouth 2 (Two) Times a Day. 60 tablet 6 5 QUEtiapine (SEROquel) 25 MG tablet Take 0.5-1 tablets by mouth Daily. 4 rOPINIRole (REQUIP) 1 MG tablet TAKE ONE TABLET BY MOUTH AT BEDTIME for restless legs 5 tiZANidine (ZANAFLEX) 4 MG tablet TAKE 1/2 TABLET TO ONE TABLET EVERY SIX HOURS NEEDED FOR PAIN Bisoprolol Fumarate 2.5 MG tabletIndications:C oronary artery disease involving [place] coronary artery of [place] heart without angina pectoris,Ventricula r tachycardia (paroxysmal),Sustai jigar SVT Take 2.5 mg by mouth Daily. 30 tablet 11 5 06/21/20 25 magnesium oxide (MAG-OX) 400 MG tabletIndications:H ypomagnesemia Take 1 tablet by mouth Daily. 30 tablet 11 4 06/09/20 25 documented as of this encounter Plan of Treatment Upcoming Encounters Date Type Department Care Team (Late st Contact Info) Description 08/16/2025 2:45 PM EDT Clinical Support No Requirements [facility] [address] [place] [address] 08/16/2025 3:00 PM EDT Office Visit [facility] [address] [facility] [place] [address] Kailey Porras APRN [address] [place] [address] documented as of this encounter Procedures Procedure Name Priority Date/Time Associated Diagnosis Comments OUTSIDE NON-INVASIVE CARDIOLOGY STUDY Routine 06/01/2025 7:58 AM EDT Elevated troponin Coronary artery disease involving [place] coronary artery of [place]oon[place] heart without angina pectoris documented in this encounter Results * External Stress Procedure (06/01/2025 7:58 AM EDT) Narrative 06/01/2025 7:58 AM EDT This procedure was auto-finalized with no dictation required. Procedure Note 06/01/2025 This procedure was auto-finalized with no dictation required. us Dinorah Christiansen MD CV CARDIAC SERVICES ORDERABL ES Final Result documented in this encounter Visit Diagnoses Diagnosis Elevated troponin Other abnormal blood chemistry Coronary artery disease involving [place] coronary artery of [place] heart without angina pectoris documented in this encounter Care Teams Digital Strategy Director Relationship Specialty Start Date End Date Marly Kumar, TRANSITION SPECIALIST [address] [place] [address] PCP - General Family Medicine 07/06/24 documented as of this encounter
--- OUTSIDE RECORDS SUMMARY | 2025-06-13 14:15 | XMS_ITS | Encounter Summary ---
Author Organization [facility] Address [address] [place] [id number] Care Team Providers Care Windows Server Specialist Name Role Phone Marly Kumar SHAKIRA Primary Care Provider [phone] Reason for Visit * Reason Comments Coronary Artery Disease Pt is here for a CAD follow up. Nuclear stress test results in chart. Pt denies chest pain, no falls. Pt states she has SOA, dizziness, palpitations, swelling of lower legs. Encounter Details Date Type Department Care Team (Latest Contact Info) Description 06/13/2025 2:15 PM EDT Office Visit [facility] CARDIOLOGY [address] [place] [address] Kailey Porras APRN [address] [place] [address] Atherosclerosis of chickaloon coronary artery of chickaloon heart with stable angina pectoris; Automatic implantable cardiac defibrillator in situ; Localized edema Social History Tobacco Use Types [...] Sign Reading Time Taken Comments Blood Pressure 128/68 06/13/2025 2:27 PM EDT Pulse 64 06/13/2025 2:27 PM EDT Temperature 36.5 C (97.7 F) 06/13/2025 2:27 PM EDT Respiratory Rate - - Oxygen Saturation 98% 06/13/2025 2:27 PM EDT Inhaled Oxygen Concentration - - Weight 79.5 kg (175 lb 4.8 oz) 06/13/2025 2:27 P M EDT Height 152.4 cm (5') 06/13/2025 2:27 PM EDT Body Mass Index 34.24 06/13/2025 2:27 PM EDT documented in this encounter Progress Notes * Kailey Porras APRN - 06/13/2025 2:15 PM EDT Images from the original note were not included. Date: 06/13/2025 Name: Xavierjose m Perkins : 1955 PCP: Marly Kumar APRN REF: No ref. provider found Sleep and/or Cardiology Consulting Provider Note ..Coronary Artery Disease (Pt is here for a CAD follow up. Nuclear stress test results in chart. Ptdenies chest pain, no falls. Pt states she has SOA, dizziness, palpitations, swelling of lower legs.) History of Present Illness The patient is a 69-year-old female who presents for follow-up on a nuclear stress test. She reports experiencing intermittent chest pain, which has not been increasing in frequency. She also mentions feeling fatigued, a symptom that has persisted since her ammonia levels were elevated. These levels have been rechecked. She has an upcoming appointment on 08/11/2025 for a nerve conduction study and to have her defibrillator deactivated. Chronic bilat lower extremity edema. Per Dr. Christiansen stress test was abnormal but it was a poor quality study and only recommends a left heart cath if patient starts to have worsening symptoms. Cardiac and sleep related history 1. Ischemic cardiomyopathy -Dual-chamber defibrillator [facility]. 2. CAD -LHC 02/25/2016 LAD stents patent x 2, 40% RCA 3. ZULEYKA AHI 10 on BiPAP with oxygen 4. CVA 5. COPD 6. Seizure disorder 06/01/2025 Nuclear Stress Test- Per Dr. Christiansen stress test was abnormal but it was a poor quality study and only recommends a left heart cath if patient starts to have worsening symptoms. There are no discontinued medications. Allergies Allergen Reactions Alendronate Sodium Hives Gabapentin Irritability Penicillins Hives, Itching and Unknown - Low Severity Sulfa Antibiotics Unknown - Low Severity Tamsulosin Other (See Comments) Sick to stomach Current Outpatient Medications: albuterol sulfate HFA (Ventolin HFA) 108 (90 Base) MCG/ACT inhaler, Inhale 2 puffs 4 (Four) Times aDay., Disp: , Rfl: aspirin 81 MG EC tablet, Take 1 tablet by mouth Daily., Disp: , Rfl: atorvastatin (LIPITOR) 40 MG tablet, Take 1 tablet by mouth every night at bedtime., Disp: , Rfl: budesonide-formoterol (SYMBICORT) 160-4.5 MCG/ACT inhaler, Inhale 2 puffs 2 (Two) Times a Day., Disp: , Rfl: calcium carb-cholecalciferol 600-10 MG-MCG tablet per tablet, Take 1 tablet by mouth Daily., Disp: , Rfl: fenofibrate (TRICOR) 145 MG tablet, Take 1 tablet by mouth every night at bedtime., Disp: , Rfl: furosemide (LASIX) 40 MG tablet, Take 1 tablet by mouth 2 (Two) Times a Day., Disp: 180 tablet, Rfl: 1 hydrOXYzine (ATARAX) 25 MG tablet, Take 1 tablet by mouth Every 6 (Six) Hours As Needed., Disp: , Rfl: lactulose (CHRONULAC) 10 GM/15ML solution, take 15 ML BY MOUTH THREE TIMES A DAY NEEDED FOR CONSTIPATION titrate TO maintain 3-5 bowel movements PER DAY], Disp: , Rfl: levETIRAcetam (KEPPRA) 1000 MG tablet, Take 1 tablet by mouth 2 (Two) Times a Day., Disp: , Rfl: levothyroxine (SYNTHROID, LEVOTHROID) 75 MCG tablet, Take 1 tablet by mouth Daily., Disp: , Rfl: loratadine (CLARITIN) 10 MG tablet, Take 1 tablet by mouth Daily., Disp: , Rfl: magnesium oxide (MAG-OX) 400 MG tablet, TAKE ONE TABLET BY MOUTH EVERY DAY, Disp: 90 tablet, Rfl: 3 metoclopramide (REGLAN) 5 MG tablet, TAKE ONE TABLET BY MOUTH BEFORE each MEAL, Disp: , Rfl: mirtazapine (REMERON) 30 MG tablet, Take 1 tablet by mouth every night at bedtime., Disp: , Rfl: nitroglycerin (NITROSTAT) 0.4 MG SL tablet, 1 under the tongue as needed for angina, may repeat q5mins for up three doses, Disp: 25 tablet, Rfl: 5 nystatin (MYCOSTATIN) 297447 UNIT/GM cream, Apply 2 applications topically daily to affected areas as needed, Disp: , Rfl: omeprazole (priLOSEC) 40 MG capsule, Take 1 capsule by mouth Daily., Disp: , Rfl: ondansetron (ZOFRAN) 4 MG tablet, Take 1 tablet by mouth Every 8 (Eight) Hours As Needed., Disp: , Rfl: ondansetron ODT (ZOFRAN-ODT) 8 MG disintegrating tablet, DISSOLVE ONE TABLET UNDER THE TONGUE everyEIGHT hours NEEDED, FOR NAUSEA, Disp: , Rfl: potassium chloride 10 MEQ CR tablet, Take 1 tablet by mouth 2 (Two) Times a Day. (Patient taking differently: Take 2 tablets by mouth 2 (Two) Times a Day.), Disp: 60 tablet, Rfl: 6 QUEtiapine (SEROquel) 25 MG tablet, Take 0.5-1 tablets by mouth Daily., Disp: , Rfl: rOPINIRole (REQUIP) 1 MG tablet, TAKE ONE TABLET BY MOUTH AT BEDTIME for restless legs, Disp: , Rfl: tiZANidine (ZANAFLEX) 4 MG tablet, TAKE 1/2 TABLET TO ONE TABLET EVERY SIX HOURS NEEDED FOR PAIN, Disp: , Rfl: Bisoprolol Fumarate 2.5 MG tablet, Take 2.5 mg by mouth Daily., Disp: 30 tablet, Rfl: 11 Past Medical History: Diagnosis Date Acute on [...] Problem Code Type: ICD-9; Seizures Sleep apnea Patient Active Problem List Diagnosis Automatic implantable cardiac defibrillator in situ Benign essential hypertension Chronic low back pain Chronic obstructive pulmonary disease Congestive heart failure Coronary atherosclerosis Hypothyroidism Gastroesophageal reflux disease without esophagitis Has a tremor History of cardiac arrest Hypokalemia Hypomagnesemia Insomnia, persistent Localized edema Mixed hyperlipidemia Seasonal allergies Seizure disorder Hospital discharge follow-up Hypotension due to drugs History reviewed. No pertinent family history. family history is not on file. Social History Socioeconomic History Marital status: Tobacco Use Smoking status: Former Current packs/day: 1.00 Types: Cigarettes Passive exposure: Past Smokeless tobacco: Never Vaping Use Vaping status: Never Used Substance and Sexual Activity Alcohol use: Not Currently Drug use: Never Sexual activity: Defer Vital Signs: BP 128/68 (BP Location: Right arm, Patient Position: Sitting, Cuff Size: Adult) Pulse 64 Temp 97.7 ??F (36.5 ??C) (Infrared) Ht 152.4 cm (60 ) Wt 79.5 kg (175 lb 4.8 oz) SpO2 98% BMI 34.24 kg/m?? Estimated body mass index is 34.24 kg/m?? as calculated from the following: Height as of this encounter: 152.4 cm (60 ). Weight as of this encounter: 79.5 kg (175 lb 4.8 oz). Physical Exam Vitals reviewed. Constitutional: Appearance: Normal appearance. She is well-developed. HENT: Head: Normocephalic and atraumatic. Eyes: General: No scleral icterus. Pupils: Pupils are equal, round, and reactive to light. Cardiovascular: Rate and Rhythm: Normal rate and regular rhythm. Heart sounds: Normal heart sounds. No murmur heard. Comments: ICD Pulmonary: Breath sounds: Normal breath sounds. No [...] is cooperative. Thought Content: Thought content normal. Physical Exam General: Patient appears tired. Results Imaging - Nuclear stress test: The quality was not optimal. Assessment and Plan Diagnoses and all orders for this visit: 1. Atherosclerosis of chickaloon coronary artery of chickaloon heart with stable angina pectoris 2. Automatic implantable cardiac defibrillator in situ 3. Localized edema Assessment & Plan 1. Chest pain: - Occasional chest pain reported, not increasing in frequency. - Recent nuclear stress test was of suboptimal quality; likely underestimated cardiac function. - Heart catheterization not necessary at this time. - Monitor symptoms closely and report any increase in frequency or severity of chest pain, as this may necessitate reconsideration of a heart catheterization. 2. Fatigue: - Persistent fatigue associated with previously elevated ammonia levels. - Continue monitoring symptoms and report any significant changes. 3. ICD management: - Upcoming appointment on 08/11/2025 for a nerve conduction study and to have the defibrillator turned off. - Follow-up visit scheduled in 3 months to assess the outcome of the procedure and obtain a new download from the ICD. 4. Chronic Lower Extremity Edema: -Chronic and stable Follow-up: Next scheduled visit in 3 months. Recommendations: ER if symptoms increase, Report if any new/changing symptoms immediately, Limit salt, Elevate legs, and Compression hose Follow Up Return in about 3 months (around 09/13/2025) for w/ ICD check. Patient or patient sales representative leather goods verbalized consent for the use of Ambient Listening during the visit with Kailey Porras APRN for chart documentation. 06/13/2025 16:13 EDT Kailey Porras APRN 06/13/2025 Please note that this explicitly excludes time [...] 2:45 PM EDT Clinical Support No Requirements [facility] C[facility]IOLOGY [address] [place] [place] [address] 08/16/2025 3:00 PM EDT Office Visit [facility] CARDIOLOGY [address] [place] [address] Kailey Porras APRN [address] [place] [address] documented as of this encounter Visit Diagnoses Diagnosis Atherosclerosis of chickaloon coronary artery of chickaloon heart with stable angina pectoris Automatic implantable cardiac defibrillator in situ Localized edema Edema documented in this encounter Care Teams Windows Server Specialist Relationship Specialty Start Date End Date Marly Kumar APRN [address] [place] [address] PCP - General Family Medicine 07/06/24 documented as of this encounter
--- OUTSIDE RECORDS SUMMARY | 2025-06-21 12:45 | XMS_ITS | Encounter Summary ---
Author Organization [facility] Address [address] [place] [address] Care Team Providers Care Filler In Name Role Phone Marly Kumar SHAKIRA Primary Care Provider [phone] Reason for Visit * Reason Comments Follow-up Pt reports she was i n the ER 2 days ago with chest pain, also needs device check Encounter Details Date Type Department Care Team (Latest Contact Info) Description 06/21/2025 12:45 PM EDT Office Visit [facility] [address] [place] [address] Kailey Porras APRN [address] [place], [place] [id number] Automatic implantable cardiac defibrillator in situ (Primary Dx); Atherosclerosis of jamul coronary artery of jamul heart with stable angina pectoris; Hospital discharge follow-up Social History Tobacco Use Types Packs/Day Years [...] Sign Reading Time Taken Comments Blood Pressure 122/80 06/21/2025 12:38 PM EDT Pulse 62 06/21/2025 12:38 PM EDT Temperature - - Respiratory Rate - - Oxygen Saturation 99% 06/21/2025 12: 38 PM EDT Inhaled Oxygen Concentration - - Weight 81.6 kg (179 lb 14.4 oz) 025 12:38 PM EDT Height 152.4 cm (5') 06/21/2025 12:38 PM EDT Body Mass Index 35.13 06/21/2025 12:38 PM EDT documented in this encounter Progress Notes * Kailey Porras APRN - 06/21/2025 12:45 PM EDTAssociated Order(s): ECG 12 Lead Pre-Procedure Diagnose(s): Atherosclerosis of jamul coronary artery of jamul heart with stable angina pectoris; Hospital discharge follow-up Post-Procedure Diagnose(s): Atherosclerosis of jamul coronary artery of jamul heart with stable angina pectoris; Hospital discharge follow-up Images from the original note were not included. Date: 06/21/2025 Name: Mu Perkins : 1955 PCP: Marly Kumar APRN REF: No ref. provider found Sleep and/or Cardiology Consulting Provider Note ..Follow-up (Pt reports she was in the ER 2 days ago with chest pain, also needs device check) History of Present Illness The patient is a 69-year-old female who presents for a hospital ER follow-up. She has been experiencing chest pain, which was also present during her recent visit to the emergency room. She reports that her defibrillator was not checked at that time. She has had two episodes of chest pain since we saw her last. Fortunately during one of the chest pain episodes she went to [facility] ER. Dr. Christiansen was consulted, it is reassuring that EKG and troponin were normal. She also had chest pain this morning as she was [place] the day [place]. EKG today and Defibrillator downloaded with no episodes. Cardiac and sleep related history 1. Ischemic [...] if patient starts to have worsening symptoms. Medications Discontinued During This Encounter Medication Reason Bisoprolol Fumarate 2.5 MG tablet Dose adjustment Allergies Allergen Reactions Alendronate Sodium Hives Gabapentin [...] every night at bedtime., Disp: , Rfl: bisoprolol (ZEBeta) 5 MG tablet, Take 1 tablet by mouth Daily., Disp: 90 tablet, Rfl: 0 budesonide-formoterol (SYMBICORT) 160-4.5 MCG/ACT inhaler, Inhale 2 [...] Disp: 25 tablet, Rfl: 5 nystatin (MYCOSTATIN) 363318 UNIT/GM cream, Apply 2 applications topically daily [...] HOURS NEEDED FOR PAIN, Disp: , Rfl: Past Medical History: Diagnosis Date Acute on [...] Never Sexual activity: Defer Vital Signs: BP 122/80 (BP Location: Right arm, Patient Position: Sitting, Cuff Size: Adult) Pulse 62 Ht 152.4 cm (60 ) Wt 81.6 kg (179 lb 14.4 oz) SpO2 99% BMI 35.13 kg/m?? Estimated body mass index is 35.13 kg/m?? as calculated from the following: Height as of this encounter: 152.4 cm (60 ). Weight as of this encounter: 81.6 kg (179 lb 14.4 oz). Physical Exam Constitutional: Appearance: Normal appearance. She [...] present. Left lower leg: Edema present. Comments: Chronic edema Skin: General: Skin is warm and dry. Capillary Refill: Capillary refill takes less than 2 seconds. Coloration: Skin is not cyanotic. Nails: There is no clubbing. Neurological: Mental Status: She is alert and oriented to person, place, and time. Motor: No weakness. Gait: Gait normal. Psychiatric: Mood and Affect: Mood normal. Behavior: Behavior is cooperative. Thought Content: Thought content normal. Physical Exam Results -[facility] ER records ECG 12 Lead Date/Time: 06/21/2025 1:51 PM Performed by: Kailey Porras APRN Authorized by: Kailey Porras APRN Comparison: compared with previous ECG from 06/19/2025 Similar to previous ECG Rate: normal BPM: 61 T Waves: T waves normal QRS axis: normal Other: no other findings Clinical impression: non-specific ECG Comments: Paced Assessment and Plan Diagnoses and all orders for this visit: 1. Automatic implantable cardiac defibrillator in situ (Primary) 2. Atherosclerosis of jamul coronary artery of jamul heart with stable angina pectoris - ECG 12 Lead 3. Hospital discharge follow-up - ECG 12 Lead Other orders - bisoprolol (ZEBeta) 5 MG tablet; Take 1 tablet by mouth Daily. Dispense: 90 tablet; Refill: 0 Assessment & Plan -[facility] ER records reviewed -ICD check; no events - Lab results were within normal limits. - Stress test did not indicate any blockages, but a minor abnormality was observed, likely a shadow. - Increase bisoprolol dosage from 2.5 mg to 5 mg for cardiac protection and alleviation of chest pain or coronary artery disease symptoms. - Schedule a nurse visit in 2 weeks to monitor heart rate and blood pressure. - If chest pain does not improve, consider a repeat left heart catheterization. Recommendations: ER if symptoms increase and Report if any new/changing symptoms immediately Follow Up Return for 3 week nurse BP/HR/CP check; Then Oct as scheduled. Patient or patient account service representative verbalized consent for the use of Ambient Listening during the visit with Kailey Porras APRN for chart documentation. 06/21/2025 13:48 EDT Kailey Porras APRN 06/21/2025 Please note that this explicitly excludes time [...] 2:45 PM EDT Clinical Support No Requirements [facility] [address] [place] [id number] 08/16/2025 3:00 PM EDT Office Visit [facility] [address] [place] [id number] Kailey Porras APRN [address] [place] [address] documented as of this encounter Procedures Procedure Name Priority Date/Time Associated Diagnosis Comments ECG 12-LEAD Routine 06/21/2025 1:51 PM EDT Atherosclerosis of jamul coronary artery of jamul heart with stable angina pectoris Hospital discharge follow-up documented in this encounter Results * ECG 12-LEAD (06/21/2025 1:51 PM EDT) Narrative [facility] ECG - 06/21/2025 1:51 PM EDT Kailey Porras APRN 06/21/2025 2:28 PM ECG 12 Lead Date/Time: 06/21/2025 1:51 PM Performed by: Kailey Porras APRN Authorized by: Kailey Porras APRN Comparison: compared with previous ECG from 06/19/2025 Similar to previous ECG Rate: normal BPM: 61 T Waves: T waves normal QRS axis: normal Other: no other findings Clinical impression: non-specific ECG Comments: Paced Procedure Note aKiley Porras APRN - 06/21/2025 12:45 PM EDT Images from the original note were not included. Date: 06/21/2025 Name: Mu Perkins : 1955 PCP: Marly Kumar APRN REF: No ref. provider found Sleep and/or Cardiology Consulting Provider Note ..Follow-up (Pt reports she was in the ER 2 days ago with chest pain, alsoneeds device check) History of Present Illness The patient is a 69-year-old female who presents for a hospital ERfollow-up. She has been experiencing chest pain, which was also present during herrecent visit to the emergency room. She reports that her defibrillator wasnot checked at that time. She has had two episodes of chest pain since wesaw her last. Fortunately during one of the chest pain episodes she wentto [facility] ER. Dr. Christiansen was consulted, it is reassuring that EKG andtroponin were normal. She also had chest pain this [place] E[place] today and Defibrillator downloaded with no episodes. Cardiac and sleep related history 1. Ischemic cardiomyopathy -Dual-chamber defibrillator [facility]. 2. CAD -LHC 02/25/2016 LAD stents patent x 2, 40% RCA 3. ZULEYKA AHI 10 on BiPAP with oxygen 4. CVA 5. COPD 6. Seizure disorder 06/01/2025 Nuclear Stress Test- Per Dr. Christiansen stress test was abnormalbut it was a poor quality study and only recommends a left heart cath ifpatient starts to have worsening symptoms. Medications Discontinued During This Encounter Medication Reason Bisoprolol Fumarate 2.5 MG tablet Dose adjustment Allergies Allergen Reactions Alendronate Sodium Hives Gabapentin [...] mouth every nightat bedtime., Disp: , Rfl: bisoprolol (ZEBeta) 5 MG tablet, Take 1 tablet by mouth Daily., Disp: 90tablet, Rfl: 0 budesonide-formoterol (SYMBICORT) 160-4.5 MCG/ACT inhaler, Inhale 2puffs 2 (Two) Times a Day., Disp: , Rfl: calcium carb-cholecalciferol 600-10 MG-MCG tablet per tablet, Take 1tablet by mouth Daily., Disp: , Rfl: fenofibrate (TRICOR) 145 MG tablet, Take 1 tablet by mouth every nightat bedtime., Disp: , Rfl: furosemide (LASIX) 40 MG tablet, Take 1 tablet by mouth 2 (Two) Times aDay., Disp: 180 tablet, Rfl: 1 hydrOXYzine (ATARAX) 25 MG tablet, Take 1 tablet by mouth Every 6 (Six)Hours As Needed., Disp: , Rfl: lactulose (CHRONULAC) 10 GM/15ML solution, take 15 ML BY MOUTH THREETIMES A DAY NEEDED FOR CONSTIPATION titrate TO maintain 3-5 bowelmovements PER DAY], Disp: , Rfl: levETIRAcetam (KEPPRA) 1000 MG tablet, Take 1 tablet by mouth 2 (Two)Times a Day., Disp: , Rfl: levothyroxine (SYNTHROID, LEVOTHROID) 75 MCG tablet, Take 1 tablet bymouth Daily., Disp: , Rfl: loratadine (CLARITIN) 10 MG tablet, Take 1 tablet by mouth Daily., Disp:, Rfl: magnesium oxide (MAG-OX) 400 MG tablet, TAKE ONE TABLET BY MOUTH EVERYDAY, Disp: 90 tablet, Rfl: 3 metoclopramide (REGLAN) 5 MG tablet, TAKE ONE TABLET BY MOUTH BEFOREeach MEAL, Disp: , Rfl: mirtazapine (REMERON) 30 MG tablet, Take 1 tablet by mouth every nightat bedtime., Disp: , Rfl: nitroglycerin (NITROSTAT) 0.4 MG SL tablet, 1 under the tongue as neededfor angina, may repeat q5mins for up three doses, Disp: 25 tablet, Rfl:5 nystatin (MYCOSTATIN) [id number] UNIT/GM cream, Apply 2 applicationstopically daily to affected areas as needed, Disp: , Rfl: omeprazole (priLOSEC) 40 MG capsule, Take 1 capsule by mouth Daily.,Disp: , Rfl: ondansetron (ZOFRAN) 4 MG tablet, Take 1 tablet by mouth Every 8 (Eight)Hours As Needed., Disp: , Rfl: ondansetron ODT (ZOFRAN-ODT) 8 MG disintegrating tablet, DISSOLVE ONETABLET UNDER THE TONGUE every EIGHT hours NEEDED, FOR NAUSEA, Disp: ,Rfl: potassium chloride 10 MEQ CR tablet, Take 1 tablet by mouth 2 (Two)Times a Day. (Patient taking differently: Take 2 tablets by mouth 2 (Two)Times a Day.), Disp: 60 tablet, Rfl: 6 QUEtiapine (SEROquel) 25 MG tablet, Take 0.5-1 tablets by mouth Daily.,Disp: , Rfl: rOPINIRole (REQUIP) 1 MG tablet, TAKE ONE TABLET BY MOUTH AT BEDTIME forrestless legs, Disp: , Rfl: tiZANidine (ZANAFLEX) 4 MG tablet, TAKE 1/2 TABLET TO ONE TABLET EVERYSIX HOURS NEEDED FOR PAIN, Disp: , Rfl: Past Medical History: Diagnosis Date Acute on [...] Never Sexual activity: Defer Vital Signs: BP 122/80 (BP Location: Right arm, Patient Position: Sitting, Cuff Size:Adult) Pulse 62 Ht 152.4 cm (60 ) Wt 81.6 kg (179 lb 14.4 oz) SpO2 99% BMI 35.13 kg/m Estimated body mass index is 35.13 kg/m as calculated from thefollowing: Height as of this encounter: 152.4 cm (60 ). Weight as of this encounter: 81.6 kg (179 lb 14.4 oz). Physical Exam Constitutional: Appearance: Normal appearance. She [...] present. Left lower leg: Edema present. Comments: Chronic edema Skin: General: Skin is warm and dry. Capillary Refill: Capillary refill takes less than 2 seconds. Coloration: Skin is not cyanotic. Nails: There is no clubbing. Neurological: Mental Status: She is alert and oriented to person, place, and time. Motor: No weakness. Gait: Gait normal. Psychiatric: Mood and Affect: Mood normal. Behavior: Behavior is cooperative. Thought Content: Thought content normal. Physical Exam Results -[facility] ER records ECG 12 Lead Date/Time: 06/21/2025 1:51 PM Performed by: Kailey Porras APRN Authorized by: Kailey Porras APRN Comparison: compared withprevious ECG from 06/19/2025 Similar to previous ECG Rate: normal BPM: 61 T Waves: T waves normal QRS axis: normal Other: no other findings Clinical impression: non-specific ECG Comments: Paced Assessment and Plan Diagnoses and all orders for this visit: 1. Automatic implantable cardiac defibrillator in situ (Primary) 2. Atherosclerosis of jamul coronary artery of jamul heart with stableangina pectoris - ECG 12 Lead 3. Hospital discharge follow-up - ECG 12 Lead Other orders - bisoprolol (ZEBeta) 5 MG tablet; Take 1 tablet by mouth Daily.Dispense: 90 tablet; Refill: 0 Assessment & Plan -[facility] ER records reviewed -ICD check; no events - Lab results were within normal limits. - Stress test did not indicate any blockages, but a minor abnormality wasobserved, likely a shadow. - Increase bisoprolol dosage from 2.5 mg to 5 mg for cardiac protectionand alleviation of chest pain or coronary artery disease symptoms. - Schedule a nurse visit in 2 weeks to monitor heart rate and bloodpressure. - If chest pain does not improve, consider a repeat left heartcatheterization. Recommendations: ER if symptoms increase and Report if any new/changingsymptoms immediately Follow Up Return for 3 week nurse BP/HR/CP check; Then Oct as scheduled. Patient or patient account service representative verbalized consent for the use ofAmbient Listening during the visit with Kailey Porras APRN forchart documentation. 06/21/2025 13:48 EDT Kailey Porras APRN 06/21/2025 Please note that this explicitly excludes time spent on other separatebillable services such as performing procedures or test interpretation,when applicable. This note was created using dictation software whichoccasionally transcribes nonsensical phrases. Please contact the providerif any clarification is needed. Kailey Porras APRN ECG ORDERABLES Matt suleman Result - Final ECG documented in this encounter Visit Diagnoses Diagnosis Automatic implantable cardiac defibrillator in situ- Primary Atherosclerosis of jamul coronary artery of jamul heart with stable angina pectoris Hospital discharge follow-up Other follow-up examination documented in this encounter Care Teams Filler In Relationship Specialty Start Date End Date Marly Kumar APRN [address] [place] [address] PCP - General Family Medicine 07/06/24 documented as of this encounter
--- OUTSIDE RECORDS SUMMARY | 2025-06-21 12:45 | XMS_ITS | Encounter Summary ---
Author Organization [facility] Address [address] [place] [address] Care Team Providers Care Reflesher Name Role Phone Marly Kumar APRN Primary Care Provider [phone] Encounter Details Date Type Department Care Team (Latest Contact Info) Description 06/21/2025 12:45 PM EDT Clinical Support No Requirements [facility] [address] [place] [address] Automatic implantable cardiac defibrillator in situ [Z95.810] (Primary Dx) Social History Tobacco Use Types Packs/Day Years [...] 2:45 PM EDT Clinical Support No Requirements [facility] [address] [place] [address] 08/16/2025 3:00 PM EDT Office Visit [facility] [address] [place] [address] Kailey Porras APRN [address] [place] [address] documented as of this encounter Visit Diagnoses Diagnosis Automatic implantable cardiac defibrillator in situ [Z95.810]- Primary Automatic implantable cardiac defibrillator in situ documented in this encounter Care Teams Reflesher Relationship Specialty Start Date End Date Marly Kumar APRN [address] [place], [place] [id number] PCP - General Family Medicine 07/06/24 documented as of this encounter
--- OUTSIDE RECORDS SUMMARY | 2025-06-30 11:00 | XMS_ITS | Encounter Summary ---
Author Organization Address [address] [place] [address] Care Team Providers Care Condemnation Engineer Name Role Phone PayneJessie Samantha ROSENBERG Unavailable [phone] Marly Kumar SNAKER Primary Care Provider [phone] Reason for Visit * Consultation (Routine) - Closed Specialty Diagnoses / Procedures Referred By Contact Referred To Contact Physical Medicine and Rehabilitation Diagnoses Numbness Numbness and tingling Carpal tunnel syndrome, bilateral Cynthia Garay MD [address] [facility] [address] [place] [address] Phone: tel:[phone] fax:[phone] [facility] at [facility] [address] [place] [address] Phone: tel: fax: Referral ID Status Reason Start Date Expiration Date V isits Requested Visits Authorized [id number] Closed Specialty Services Required 06/02/2025 12/02/2026 1 1 Encounter Details Date Type Department Care Team (Late st Contact Info) Description 06/30/2025 11:00 AM EDT Procedure Visit [facility] at [facility] [address] [place] [address] Freedom Henson DO [address] [place] [address] Bilateral carpal tunnel syndrome (Primary [...] drink first t zander in the morning (EYE-RN GERIATRIC) to steady your nerves or to get [...] 06/30/2025 10:56 AM EDT Adela James * If you checked off any problems on this questionnaire so far, Question Answer Date of Assessment Author How difficult have these problems made it for you to do your work, take care of things at home, or get along with other people? Not difficult at all 06/30/2025 10:56 AM EDT Adela Cazares * Question Answer Date of Assessment Author 1. Wish to be (Past 1 Month) No 06/30/2025 10:56 AM EDT Adela Giraldo 2. Non-Specific Active Suicidal Thoughts (Past 1 Month) No 06/30/2025 10:56 AM SEANT Adela Giraldo 6. Suicidal Behavior (Lifetime) No 06/30/2025 10:56 AM SEANT Adela Giraldo documented as of this encounter Mental Status * Because of a physical, mental, or emotional condition, do you have serious difficulty concentrating, remembering, or making decisions? (5 years old or older) Answer Entry Date Author No 08/08/2023 5:39 PM EDT Kevin Isidro RN documented in this encounter Miscellaneous Notes * Procedures - Freedom Henson, DO - 06/30/2025 11:00 AM EDTAssociated Order(s): [...] yes Risks discussed: Bleeding, infection and pain [place] protocol: Procedure explained and questions answered to patient or proxy's satisfaction: yes Immediately prior to procedure, a time out was called: yes Patient identity confirmed: Verbally with patient Indications: Indications: Paresthesias Pre-procedure details: Procedure prep: alcohol swap prior to insertion of EMG electrode. Sedation: Sedation type: None Anesthesia: Anesthesia method: None Post-procedure details: Procedure completion: Tolerated well, no immediate complications [facility] Department of Physical Medicine and [place] [address] Test Date: 06/30/2025 Patient: Lorna Perkins : 1955 Physician: Freedom Henson DO Sex: Male Height: ' Ref Phys: Cynthia Garay MD ID#: [id number] Weight: lbs. Resident: Patient Complaints: b/l hand [...] however undetermined significance of this. Freedom Henson, Nerve Conduction Studies Anti Sensory Summary Table [...] Care Team (Late st Contact Info) Description 07/11/2025 2:30 PM EDT Procedure Visit [facility] [address] [place] [address] Freedom Henson DO [address] [place] [address] documented as of this encounter Procedures Procedure [...] yes Risks discussed: Bleeding, infection and pain [place] protocol: Procedure explained and questions answered to patient or proxy's satisfaction: yes Immediately prior to procedure, a time out was called: yes Patient identity confirmed: Verbally with patient Indications: Indications: Paresthesias Pre-procedure details: Procedure prep: alcohol swap prior to insertion of EMG electrode. Sedation: Sedation type: None Anesthesia: Anesthesia method: None Post-procedure details: Procedure completion: Tolerated well, no immediate complications us Cynthia Garay MD NEUROLOGY ORDERABLES Final Resu lt documented in this encounter Visit Diagnoses Diagnosis Bilateral carpal tunnel syndrome- Primary Carpal tunnel syndrome Numbness and tingling Disturbance of skin sensation documented in this encounter Additional Health Concerns Assessment Noted Time PHQ-9 Depression Total Score: 0 06/30/20 25 10:56 AM EDT A fall risk assessment has been complete d for the patient 06/30/2025 11:05 AM EDT A Body Mass Index follow-up plan has been documented for the patient 06/30/2025 3:01 PM EDT documented as of this encounter Care Teams Condemnation Engineer Relationship Specialty Start Date End Date Marly Kumar APRN [address] [place] [address] PCP - General 06/09/25 Jessie Payne APRN [address] [facility] [place] [address] 08/07/23 documented as of this encounter
--- OUTSIDE RECORDS SUMMARY | 2025-07-05 12:30 | XMS_ITS | Encounter Summary ---
Author Organization [facility] Address [address] [place] [address] Care Team Providers Care Earth Auger Operator Name Role Phone Marly Kumar APRN Primary Care Provider [phone] Reason for Visit * Reason Comments Hypertension BP check Encounter Details Date Type Department Care Team (Late st Contact Info) Description 07/05/2025 12:30 PM EDT Clinical Support [facility] [address] [place] [address] Social History Tobacco Use Types Packs/Day Years [...] Sign Reading Time Taken Comments Blood Pressure 140/84 07/05/2025 11:46 AM EDT Pulse 79 07/05/2025 11:46 AM EDT Temperature - - Respiratory Rate - - Oxygen Saturation 96% 07/05/2025 11:46 AM EDT Inhaled Oxygen Concentration - - Weight - - Height - - Body Mass Index - - documented in this encounter Plan of Treatment Upcoming Encounters Date Type Department Care Team (Late st Contact Info) Description 08/16/2025 2:45 PM EDT Clinical Support No Requirements [facility] CL[place]IC [place] [address] 08/16/2025 3:00 PM EDT Office Visit [facility] [address] [facility] [place] [address] Kailey Porras APRN [address] [place] [address] documented as of this encounter Visit Diagnoses Not on filedocumented in this encounter Care Teams Earth Auger Operator Relationship Specialty Start Date End Date Marly Kumar APRN [address] [place] [address] PCP - General Family Medicine 07/06/24 documented as of this encounter
--- NOTE | 2025-07-06 09:28 | ECG_ITS ---
APPROVED REPORT Exam: Resting ECG HR:62 bpm ECG Measurements Heart Rate 62 AXES MS 159 P 86 QRSd 76 QRS 46 QT 229 T 60 QTc 233 Conclusion SINUS RHYTHM LOW QRS VOLTAGE IN PRECORDIAL LEADS [QRS DEFLECTION < 1.0 mV IN CHEST LEADS] NONSPECIFIC ST & T-WAVE ABNORMALITY BORDERLINE ECG UNCONFIRMED REPORT Electronically signed by : Anson Shah, 07/06/2025 15:28:28
[2025-07-06 09:31] VITALS: BP 154/63; PULSE 62; RESP 18; TEMP 36.7; O2SAT 97; BMI 31.2
[2025-07-06 09:34] VITALS: BP 136/70; PULSE 61; RESP 18; O2SAT 97
--- NOTE | 2025-07-06 09:43 | XR_ITS ---
FINAL REPORT CLINICAL HISTORY: dyspnea COMPARISON: 06/19/2025 FINDINGS: SINGLE VIEW CHEST The heart is normal in size. The mediastinum is unremarkable. Left subclavian pacer is identified. There are chronic changes in both lungs. There is no pneumothorax. IMPRESSION: No acute process. Reviewed, Interpreted and Dictated by Jagdish Asif MD Transcribed by Mary Ann Alva Authenticated and [facility]
--- NOTE | 2025-07-06 09:44 | ECG_ITS ---
APPROVED REPORT Exam: Resting ECG HR:68 bpm ECG Measurements Heart Rate 68 AXES NC 156 P 70 QRSd 81 QRS 52 QT 378 T 46 QTc 395 Conclusion SINUS RHYTHM WITH SINUS ARRHYTHMIA LOW QRS VOLTAGE IN PRECORDIAL LEADS [QRS DEFLECTION < 1.0 mV IN CHEST LEADS] BORDERLINE ECG UNCONFIRMED REPORT Electronically signed by : Anson Shah, 07/06/2025 15:28:21
--- OUTSIDE RECORDS SUMMARY | 2025-07-06 09:49 | XMS_ITS | Encounter Summary ---
Author Organization [facility] Address [address] [place] [address] Care Team Providers Care Heavy Truck Mechanic Name Role Phone Marly Kumar APRN Primary Care Provider [phone] Reason for Visit * Reason Onset Date Comments Dinorah Christiansen MD- HOSPITAL FOLLOW UP 2024 Encounter Details Date Type Department Care Team (Late st Contact Info) Description 06/19/2025 Telephone [facility] CARDIOLOGY [address] [place] [address] Dinorah Christiansen MD [address] [place] [address] Dinorah Christiansen MD- HOSPITAL FOLLOW UP Social History Tobacco Use Types Packs/Day Years [...] encounter Miscellaneous Notes * Telephone Encounter - Ester Richardson RegSched Rep - 06/20/2025 11:30 AM EDT Spoke with patient,she is scheduled with [facility] 06/21/25 * Telephone Encounter - Tona Luciano MA - 06/20/2025 11:15 AM EDT Ester is working to get the patient scheduled. * Telephone Encounter - Coco Anderson RegSched Rep - 06/20/2025 10:45 AM EDT . Caller: Mu Perkins Relationship to patient: Self Best call back number: . Telephone Information: New or established patient? [] New [x] Established Date of discharge: 06/19/25 Facility discharged from: [facility] Diagnosis/Symptoms: CHEST PAIN Length of stay (If applicable): 1 DAY Specialty Only: Did you see a [facility] provider? [] Yes [x] No If so, who? Additional Details: PT CALLED AND WANTED TO SET UP HOSPITAL F./U. PLEASE ADVISE PT. * Telephone Encounter - Miryam Blanton RegSched Rep - 06/19/2025 3:22 PM EDT [facility] called stated they were sending pt to [facility] ER pts PM had went off. documented in this encounter Plan of Treatment Upcoming Encounters Date Type Department Care Team (Late st Contact Info) Description 08/16/2025 2:45 PM EDT Clinical Support No Requirements [facility] CARDIOLOGY [address] [place] [address] 08/16/2025 3:00 PM EDT Office Visit [facility] CARDIOLOGY [address] [address] Kailey Porras APRN [address] [place], [place] [id number] documented as of this encounter Visit Diagnoses Not on filedocumented in this encounter Care Teams Heavy Truck Mechanic Relationship Specialty Start Date End Date Marly Kumar APRN [address] [place] [address] PCP - General Family Medicine 07/06/24 documented as of this encounter
--- OUTSIDE RECORDS SUMMARY | 2025-07-06 09:49 | XMS_ITS | Encounter Summary ---
Author Organization [facility] Address [address] [place] [address] Care Team Providers Care Safety Manager Name Role Phone Marly Kumar APRN Primary Care Provider [phone] Encounter Details Date Type Department Care Team (Late st Contact Info) Description 06/30/2025 Telephone [facility] CARDIOLOGY [address] [place] [address] Dinorah Christiansen MD [address] [place] [address] Social History Tobacco Use Types Packs/Day [...] encounter Miscellaneous Notes * Telephone Encounter - Joaquín Ybarra CMA - 07/05/2025 10:53 AM EDT PATIENT HAS NURSE VISIT TODAY IN OFFICE * Telephone Encounter - Joaquín Ybarra CMA - 07/04/2025 10:46 AM EDT LVM FOR PATIENT'S DAUGHTER TO RETURN CALL * Telephone Encounter - Dinorah Christiansen MD - 07/04/2025 10:27 AM EDT I'm not sure who ordered the nerve conduction study. They may have told her something that was a policy for the location she had it done but I have not been involved in scheduling or arranging these tests. There is no need to turn off the device beforehand. Usually they just put a round magnet over the device during the test. This may cause some fluttering during the magnet placement because it also changes the way the device paces her heart, but it is still the safest way and the device goes back tonormal after the magnet is removed. * Telephone Encounter - Bridgette Zepeda RN - 06/30/2025 4:03 PM EDT RECEIVED A CALL FROM PT DAUGHTER FARIDA VILLA. NOT LISTED ON VERBAL. WANTING A PHONE CALL BACK FROM DR CHRISTIANSEN EXPLAINING WHY IF DR CHRISTIANSEN WANTED HER NERVE CONDUCTION TEST DONE AT A HOSPITAL SOTHAT DEFIBRILLATOR COULD BE TURNED OFF THAT THEY WOULD NOT TURN IT OFF? STATES THAT SHE WENT TO [facility] AND NO ONE TURNED IT OFF AND EVERYTIME THEY DONE THE SHOCK FOR THE TEST THAT THE PT COULDFEEL HER HEART SKIPPING BEATS. CALLED AND TALKED TO REINALDO AND SHE RELAYS THAT FARIDA SHOULD BE LISTED ON HER VERBAL AND SHE IS GOING TO SIGN A NEW ONE WHEN SHE COMES IN ON 07-05-25. PT REITERATES THAT HER DEFIBRILLATOR NEVER SHOCKED HER THROUGHOUT THE TEST BUT IT DID CAUSE HER TO HAVE PALPITATIONS. SHE RELAYS THAT SHE IS SUPPOSED TO HAVE A NERVE CONDUCTION TEST ON FEET AND WANTS TO ENSURE THAT IF THE DEFIBRILLATOR IS SUPPOSED TO BE TURNED OFF THAT IT GETS TURNED OFF.FARIDA WAS REQUESTING A CALL BACK FROM DR CHRISTIANSEN TO DISCUSS AT [phone]. SHE IS COMING IN ON 07-05 FOR NURSE VISIT. documented in this encounter Plan of Treatment Upcoming Encounters Date Type Department Care Team (Late st Contact Info) Description 08/16/2025 2:45 PM EDT Clinical Support No Requirements [facility] CARDIOLOGY [address] [place] [address] [place] [address] 08/16/2025 3:00 PM EDT Office Visit [facility] CARDIOLOGY [address] [place] [address] Kailey Porras APRN [address] [place] [address] documented as of this encounter Visit Diagnoses Not on filedocumented in this encounter Care Teams Safety Manager Relationship Specialty Start Date End Date Marly Kumar APRN [address] [place] [id number] PCP - General Family Medicine 07/06/24 documented as of this encounter
--- OUTSIDE RECORDS SUMMARY | 2025-07-06 09:49 | XMS_ITS | Encounter Summary ---
Author Organization [facility] Address [address] [place] [address] Care Team Providers Care Service Technician Name Role Phone Marly Kumar SHAKIRA Primary Care Provider [phone] Encounter Details Date Type Department Care Team (Latest Contact Info) Description 07/05/2025 Travel Social History Tobacco Use Types Packs/Day [...] PM EDT Clinical Support No Requirements [facility] CARDIOLOGY [address] [address] 08/16/2025 3:00 PM EDT Office Visit [facility] CARDIOLOGY [address] [address] Kailey Porras APRN [address] [place] [address] documented as of this encounter Visit Diagnoses Not on filedocumented in this encounter Care Teams Service Technician Relationship Specialty Start Date End Date Marly Kumar APRN [facility] [place] [address] PCP - General Family Medicine 07/06/24 documented as of this encounter
--- OUTSIDE RECORDS SUMMARY | 2025-07-06 09:49 | XMS_ITS | Encounter Summary ---
Author Organization [facility] Address [address] [place] [address] Care Team Providers Care Economic History Teacher Name Role Phone Marly Kumar SHAKIRA Primary Care Provider [phone] Encounter Details Date Type Department Care Team (Latest Contact Info) Description 06/21/2025 Travel Social History Tobacco Use Types Packs/Day [...] 2:45 PM EDT Clinical Support No Requirements [facility] CARDIOLOGY [address] [address] 08/16/2025 3:00 PM EDT Office Visit [facility] CARDIOLOGY [address] [address] Kailey Porras APRN [address] [place] [address] documented as of this encounter Visit Diagnoses Not on filedocumented in this encounter Care Teams Economic History Teacher Relationship Specialty Start Date End Date Marly Kumar APRN [facility] [place] [address] PCP - General Family Medicine 07/06/24 documented as of this encounter
--- OUTSIDE RECORDS SUMMARY | 2025-07-06 09:50 | XMS_ITS | Encounter Summary ---
Author Organization [employer] ([place], [place], [place], [place]) Address [address] [place] [address] Care Team Providers Care Content Creation Manager Name Role Phone Marly Kumar DIDACTIC INSTRUCTOR Primary Care Provider [phone] Encounter Details Date Type Department Care Team (Late st Contact Info) Description 07/28/2020 Transcribed Document [facility] Family Medicine [facility] [place] [address] ProviderMiya MD [address] [place] [address] [id number] Social History Tobacco Use Types Packs/Day Years [...] up with Dr. Duong in 6 months. /[id number] MD RAPHAEL Esquivel/AQ / TAF / MODL /[id number] documented in this encounter Plan of Treatment Upcoming Encounters Date Type Department Care Team (Late st Contact Info) Description 07/10/2025 10:00 AM EDT Office Visit [facility] Neurology [address] [place], [place] [id number] Rad Duong MD [address] [facility] [address] [place] [address] documented as of this encounter Visit Diagnoses Not on filedocumented in this encounter Care Teams Content Creation Manager Relationship Specialty Start Date End Date Marly Kumar, DUNG [address] [place], [place] [id number] PCP - General Nurse Practitioner 09/22/24 documented as of this encounter
--- OUTSIDE RECORDS SUMMARY | 2025-07-06 09:50 | XMS_ITS | Encounter Summary ---
Author Organization [employer] ([place], [place], [place], [place]) Address [address] [place] [address] Care Team Providers Care Supervisor Ovens Name Role Phone Marly Kumar FAMILY RESOURCE MANAGEMENT PROFESSOR Primary Care Provider [phone] Encounter Details Date Type Department Care Team (Late st Contact Info) Description 07/26/2020 Transcribed Document [facility] Family Medicine [facility] [place] [address] ProviderMiya MD [address] [place] [phone] Social History Tobacco Use Types Packs/Day Years [...] the upper and lower extremities. COORDINATION: Normal [id number]. IMPRESSION: Ms. Perkins has a long history [...] mg IV for repetitive or prolonged seizures. /[id number] Yadi Duong MD TAF/AQ / TAF / MODL Electronically signed by Celestine, [facility] Conversion Slide Forming Machine Operator Cerner at 02/19/2023 6:42 PM CDT documented in this encounter Plan of Treatment Upcoming Encounters Date Type Department Care Team (Late st Contact Info) Description 07/10/2025 10:00 AM EDT Office Visit [facility] Neurology [address] [facility] [address] [place] [address] Yadi Duong MD [address] [facility] [address] [place] [address] documented as of this encounter Visit Diagnoses Not on filedocumented in this encounter Care Teams Supervisor Ovens Relationship Specialty Start Date End Date Marly Kumar, DUNG [address] [place] [address] PCP - General Nurse Practitioner 09/22/24 documented as of this encounter
--- OUTSIDE RECORDS SUMMARY | 2025-07-06 09:50 | XMS_ITS | Encounter Summary ---
Author Organization [employer] ([place], [place], [place], [place]) Address [address] [place] [address] Care Team Providers Care Lithograph Press Feeder Name Role Phone Marly Kumar GUMMED TAPE PRESS OPERATOR Primary Care Provider [phone] Encounter Details Date Type Department Care Team (Late st Contact Info) Description 07/26/2020 Transcribed Document [facility] [place] [facility] [place] [address] ProviderMiya MD [address] [place] [phone] Social History Tobacco Use Types Packs/Day Years [...] On: 07/26/2020 16:03 EDT by EDISON FONTANEZ, RN-CrttsHarvest Contractor Progress Note Discharge Arrangements : Patient Post-Acute [...] Attend Multidisciplinary Rounds? : No EDISON FONTANEZ, RN-Crtts - 07/26/2020 16:03 EDT Narrative Progress Note Narrative Progress Note : On continuous EEG monitoring. EDISON FONTANEZ, RN-Crtts - 07/26/2020 16:03 EDT Electronically signed by [facility] Conversion Weighing Station Operator Cerner at 02/19/2023 6:34 PM CDT documented in this encounter Plan of Treatment Upcoming Encounters Date Type Department Care Team (Late st Contact Info) Description 07/10/2025 10:00 AM EDT Office Visit [facility] Neurology [address] [facility] [address] [place] [address] Rad Duong MD [address] [facility] [address] [place], [place] [phone] documented as of this encounter Visit Diagnoses Not on filedocumented in this encounter Care Teams Lithograph Press Feeder Relationship Specialty Start Date End Date Marly Kumar NP [address] [place] [address] PCP - General Nurse Practitioner 09/22/24 documented as of this encounter
--- OUTSIDE RECORDS SUMMARY | 2025-07-06 09:50 | XMS_ITS | Clinical Summary ---
Author Organization [facility] Address [address] [place] [address] Care Team Providers Care Collections Agent Name Role Phone Marly Kumar TRAVEL COUNSELOR Primary Care Provider [phone] Allergies Active Allergy Reactions Criticality Noted Date [...] puffs 4 (Four) Times a Day. Active lactulose (CHRONULAC) 10 GM/15ML solution take 15 ML BY MOUTH THREE TIMES A DAY NEEDED FOR CONSTIPATION titrate TO maintain 3-5 bowel movements PER DAY] Active levETIRAcetam (KEPPRA) 1000 MG tablet Take 1 tablet by mouth 2 (Two) Times a Day. Active metoclopramide (REGLAN) 5 MG tablet TAKE ONE TABLET BY MOUTH BEFORE each MEAL Active nystatin (MYCOSTATIN) 780784 UNIT/GM cream Apply 2 applications topically daily [...] BY MOUTH EVERY DAY 90 tablet 3 Active bisoprolol (ZEBeta) 5 MG tablet Take 1 tablet by mouth Daily. 90 tablet Active magnesium oxide (MAG-OX) 400 MG tabletIndications :Hypomagnesemia Take 1 tablet by mouth Daily. 30 tablet 11 024 2024 Discontinued Bisoprolol Fumarate 2.5 MG tabletIndications :Coronary artery disease involving [place] coronary artery of [place] heart without angina pectoris,Ventricu lar tachycardia (paroxysmal),Sust ained SVT Take 2.5 mg by mouth Daily. 30 tablet 11 025 2024 Discontinued(D ose adjustment) Active Problems Problem Noted Date Diagnosed Date Has a tremor 07/06/2024 Hospital discharge follow-up 07/06/2024 Assessment & Plan (07/06/2024 11:01 AM EDT): [facility] 06/30/2024 ER records reviewed. Patient was dehydrated [...] Encounters Date Type Department Care Team Description 07/05/2025 12:30 PM EDT Clinical Support [facility] [address] [place] [address] [place] [address] 07/05/2025 Travel 06/30/[address] [place] [address] Dinorah Christiansen MD 06/21/2025 12:45 PM EDT Clinical Support No Requirements [address] [place] [address] Automatic implantable cardiac defibrillator in situ [Z95.810] (Primary Dx) 06/21/2025 12:45 PM EDT Office Visit [address] [place] [address] Kailey Porras APRN Automatic implantable cardiac defibrillator in situ (Primary Dx); Atherosclerosis of [place] coronary artery of [place] heart with stable angina pectoris; Hospital discharge follow-up 06/21/2025 Travel 06/19/[address] [place] [address] Dinorah Christiansen MD Waespe, Cristen K, MD- HOSPITAL FOLLOW UP 06/13/2025 2:15 PM EDT Office Visit [address] [place] [address] Kailey Porras APRN Atherosclerosis of [place] coronary artery of [place] heart with stable angina pectoris; Automatic implantable cardiac defibrillator in situ; Localized edema 06/13/2025 Travel 06/12/2025 Telephone [facility] [address] [place] [address] Dinorah Christiansen MD 06/09/2025 Refill [facility] [address] [place] [address] Dinorah Christiansen MD Med Refill 06/05/2025 Telephone [facility] [place] [address] Kailey Porras, TRAVEL COUNSELOR 06/01/2025 7:58 AM EDT - 06/01/2025 11:59 PM EDT Hospital Encounter [facility] [address] [facility] 3rd [place] [address] Elevated troponin; Coronary artery disease involving [place] coronary artery of [place] heart without angina pectoris Discharge Disposition: Home or Self Care 05/30/2025 Telephone [facility] [place] [address] Dinorah Christiansen MD 05/23/2025 Patient rounding ([facility]) [facility] [place] [address] Dinorah Christiansen MD 05/22/2025 3:00 PM EDT Office Visit [facility] [place] [address] Dinorah Christiansen MD Elevated troponin (Primary Dx); Coronary artery disease involving [place] coronary artery of [place] heart without angina pectoris; Automatic implantable cardiac defibrillator in situ 05/22/2025 Travel 05/02/2025 Telephone [facility] [address] [place] [address] Dinorah Christiansen MD 04/25/2025 Telephone [facility] [address] [place] [address] Dinorah Christiansen MD 04/24/2025 Telephone [facility] [place] [address] Sarah Barclay APRN J. TRAUTWEIN - SCHEDULING REQUEST 04/12/2025 Telephone [facility] [address] [place] [address] Dinorah Christiansen MD 04/10/2025 10:00 AM EDT Clinical Support No Requirements [facility] [place] [address] Automatic implantable cardiac defibrillator in situ [Z95.810] (Primary Dx) 04/10/2025 10:00 AM EDT Office Visit [facility] [address] [place] [address] [place] [address] Dinorah Christiansen MD Coronary artery disease involving [place] coronary artery of [place] heart without angina pectoris (Primary Dx); Ventricular tachycardia (paroxysmal); Sustained SVT; Hypertension, essential; Autonomic dysfunction 04/10/2025 Travel 04/10/2025 Telephone [facility] [place] [address] MD [address] WAESPE - SCHEDULING REQUEST 04/06/2025 2:28 PM EDT - 04/06/2025 6:37 PM EDT Emergency [facility] [address] [place] [phone] Harrison Fink MD Chest pain, unspecified type (Primary Dx) Discharge Disposition: Home or Self Care 04/06/2025 Travel 04/06/2025 Telephone [facility] [place] [address] Dinorah Christiansen MD from Last 3 Months Immunizations Immunization Administration [...] Pulse 79 07/05/2025 11:46 AM EDT Temperature 36.5 C (97.7 F) 06/13/2025 2:27 PM EDT Respiratory Rate 20 04/06/2025 2:40 PM EDT Oxygen Saturation 96% 07/05/2025 11: 46 AM EDT Inhaled Oxygen Concentration - - Weight 81.6 kg (179 lb 14.4 oz) 025 12:38 PM EDT Height 152.4 cm (5') 06/21/2025 12:38 PM EDT Body Mass Index 35.13 06/21/2025 12:38 PM EDT Plan of Treatment Upcoming Encounters Date Type Department Care Team (Late st Contact Info) Description 08/16/2025 2:45 PM EDT Clinical Support No Requirements [facility] [address] [place] [address] 08/16/2025 3:00 PM EDT Office Visit [facility] [address] [place] [address] Kailey Porras APRN [address] [place] [address] Health Maintenance Due Date Last Done Comments LIPID PANEL 1955 MAMMOGRAM 1993 COLOGUARD 1998 COLON CANCER SCREENING 5 YEA R SIGMOIDOSCOPY 1998 COLONOSCOPY 1998 [address] CANCER SCREENING 1998 CT COLONOGRAPHY 1998 FECAL OCCULT BLOOD TEST 1998 FIT Testing (1 year) 1998 ANNUAL WELLNESS VISIT 05/23/2024 HEPATITIS C SCREENING 05/23/2024 COVID-19 Vaccine (4 - 2024-2 6 season) 2025 09/09/2021, 12/05/2020, 11/15/2020 INFLUENZA VACCINE 08/02/2025 09/08/2024, , 08/11/2014, Additional history exists DXA SCAN 09/27/2026 09/27/2024 TDAP/TD VACCINES (3 - Td or Tdap) 05/10/2035 025, 08/07/2023 Pneumococcal Vaccine 50+ Completed 05/17/2024 ZOSTER VACCINE Completed 12/28/2024, 09/26/2024 Procedures Procedure Name Priority Date/Time Associated Diagnosis Comments ECG 12-LEAD Routine 06/21/2025 1:51 PM EDT Atherosclerosis of [place] coronary artery of [place] heart with stable angina pectoris Hospital discharge follow-up SCANNED EKG 06/19/2025 SCANNED - LABS 06/19/2025 SCANNED - IMAGING 06/19/2025 OUTSIDE NON-INVASIVE CARDIOLOGY STUDY Routine 06/01/2025 7:58 AM EDT Elevated troponin Coronary artery disease involving [place] coronary artery of [place] heart without angina pectoris REMOTE DEVICE CHECK [...] 10:40 AM EDT Coronary artery disease involving [place] coronary artery of [place] heart without angina pectoris TROPONIN STAT 04/06/2025 4:21 PM EDT ECG 12-LEAD STAT 04/06/2025 4:15 PM EDT POCT [id number] CT STAT 04/06/2025 2:58 PM EDT LIGHT [...] ECG 12-LEAD STAT 04/06/2025 2:36 PM EDT from Last 3 Months Results * ECG 12-LEAD (06/21/2025 1:51 PM EDT) Only the most recent of4 resultswithin the time period is included. Narrative BH ECG - 06/21/2025 1:51 PM [...] impression: non-specific ECG Comments: Paced Procedure Note Kailey Porras APRN - 06/21/2025 12:45 PM EDT [...] of the chest pain episodes [facility] ER. Dr. Christiansen was consulted, it is reassuring that EKG andtroponin were normal. She also had chest pain this morning as [facility] EKG today and Defibrillator downloaded with no episodes. Cardiac and sleep related history 1. Ischemic cardiomyopathy -Dual-chamber defibrillator [facility]. 2. CAD -[facility] 02/25/2016 LAD stents patent x 2, 40% [...] doses, Disp: 25 tablet, Rfl:5 nystatin (MYCOSTATIN) 219642 UNIT/GM cream, Apply 2 applicationstopically daily to [...] Content: Thought content normal. Physical Exam Results -[facility] ER records ECG 12 Lead Date/Time: 06/21/2025 [...] defibrillator in situ (Primary) 2. Atherosclerosis of [place] coronary artery of [place] heart with stableangina pectoris - ECG 12 Lead 3. Hospital discharge follow-up - ECG 12 Lead Other orders - bisoprolol (ZEBeta) 5 MG tablet; Take 1 tablet by mouth Daily.Dispense: 90 tablet; Refill: 0 Assessment & Plan -[facility] ER records reviewed -ICD check; no events [...] Then Oct as scheduled. Patient or patient patient relations representative verbalized consent for the use ofAmbient Listening during the visit with Kailey Porras APRN forchart documentation. 06/21/2025 13:48 EDT aKiley Porras APRN 06/21/2025 Please note that this explicitly excludes time spent on other separatebillable services such as performing procedures or test interpretation,when applicable. This note was created using dictation software whichoccasionally transcribes nonsensical phrases. Please contact the providerif any clarification is needed. [facility] TRAVEL COUNSELOR ECG ORDERABLES Matt suleman Result - Final ECG * ECG Scan (06/19/2025) Only the most recent of3 resultswithin the time period is included. [facility] TRAVEL COUNSELOR ECG ORDERABLES Fin al Result * IMAGING SCANNED (06/19/2025) Only the most recent of6 resultswithin the time period is included. Anatomical Region Laterality Modality Radiographic Dayanara ging [facility] [employer] TRAVEL COUNSELOR IMG DIAGNOSTIC IMAG ING ORDERABLES Final Result * LABS SCANNED (06/19/2025) Only the most recent of4 resultswithin the time period is included. [facility] Porras TRAVEL COUNSELOR LAB BLOOD ORDERABLE S Final Result * External Stress Procedure (06/01/2025 7:58 AM EDT) Narrative 06/01/2025 7:58 AM EDT This procedure was auto-finalized with no dictation required. Procedure Note 06/01/2025 This procedure was auto-finalized with no dictation required. Dinorah Christiansen MD [facility] CARDIAC SERVICES ORDERABL ES Final Result * Remote Device Check (05/18/2025 2:02 AM EDT) Only the most recent of2 resultswithin the time period is included. Date Time Interrogation Session [id number] [facility] Type Interrogation Session Remote Device Initiated [facility] Implantable Pulse Generator Client Development Director [facility] Implantable Pulse Generator Type ICD [facility] Implantable Pulse Generator Model [id number] Kan(TM) [facility] Implantable Pulse Generator Serial Number [id number] [facility] Implantable Pulse Generator Implant Date [id number] [facility] Battery Remaining Percentage 71.00 % [facility] Battery Remaining Longevity 76.0 mo [facility] Battery Voltage 2.980 [facility] Battery BRONZE CHASER Trigger 2.620 [facility] Battery Status Middle of Service [facility] Capacitor Charge Time 8.600 [facility] Ujs Statistic RA Percent Paced 6.90 [facility] Jus Statistic RV Percent Paced 1.00 [facility] Atrial Tachy Statistic AT/AF [place] Percent 0.00 [facility] Lead Channel RA Sensing Intrinsic Amplitude 3.200 [facility] Lead Channel Setting RA Sensing Sensitivity 0.30 [facility] Lead Channel RA Impedance Value 450 [facility] Lead Channel RA Pacing Threshold Amplitude 0.375 [facility] Lead Channel RA Pacing Threshold Pulse Width 0.5 [facility] Lead Channel RA Measurements Date and Time [id number] [facility] Lead Channel Setting RA Pacing Amplitude 2.000 [facility] Lead Channel Setting RA Pacing Pulse Width 0.5 [facility] Lead Channel RV Sensing Intrinsic Amplitude 11.400 [facility] Lead Channel Setting RV Sensing Sensitivity 0.50 [facility] Lead Channel RV Impedance Value 660 [facility] Lead Channel Setting RV Pacing Amplitude 2.500 [facility] Lead Channel Setting RV Pacing Pulse Width 0.5 [facility] Jus Setting Mode (NBG Code) DDDR [facility] Jus Setting Lower Rate Limit 60 [facility] Jus Setting AT Mode Switch Rate 180 [facility] Jus Setting Maximum Tracking Rate 90 [facility] Jus Setting Maximum Sensor Rate 110 [facility] Jus Setting PAV Delay 250 [facility] Jus Setting REY Delay 250 [facility] Therapy Statistic Recent Shocks Delivered 0 [facility] Therapy Statistic Recent Shocks Aborted 0 [facility] Therapy Statistic Recent ATP Delivered 0 [facility] SHOCK MEASURED IMPEDANCE 65 [facility] Lead Channel Setting RA Sensing Polarity Bipolar [facility] Lead Channel Setting RV Sensing Polarity Bipolar [facility] Lead Channel Setting RA Pacing Polarity Bipolar [facility] Lead Channel Setting RV Pacing Polarity Bipolar [facility] Lead Channel RA Pacing Threshold Polarity Bipolar [facility] Lead Channel RV Pacing Threshold Polarity Bipolar [facility] Zone Setting Type Category VT [facility] IDC RATE 1 141 [facility] Zone Setting Status On [facility] Zone ID 1 [facility] Zone Setting Type Category VT [facility] IDC RATE 1 171 [facility] THERAPIES 4 x Burst+Scan,25.0J,3 4.0J,40.0J x 2 [facility] Zone Setting Status On [facility] Zone ID 2 [facility] Zone Setting Type Category VF [facility] IDC RATE 1 222 [facility] THERAPIES 30.0J,40.0J,40.0J x 4 [facility] Zone Setting Status On [facility] Zone ID 3 [facility] 05/18/2025 2:02 AM EDT us Dinorah Christiansen MD CV IMPLANTABLE CARDIAC DEVIC E Final Result [facility] * (ABNORMAL) High Sensitivity Troponin T (04/06/2025 4:21 PM EDT) Only the most recent of2 resultswithin the time period is included. HS Troponin T 20(H) <14 ng/L 04/06/2025 5:06 PM EDT [facility] Blood Structure of right upper limb / Unknown Butterfly / Unknown 04/06/2025 4:21 PM EDT 04/06/2025 4:26 PM EDT Narrative [facility] - 04/06/2025 5:06 PM EDT High [...] injury due to an underlying chronic condition. us Harrison Fink MD LAB BLOOD ORDERABLES Angelita zapata Result [facility]
[address] [place] [address], * (ABNORMAL) POC CHEM 8 (04/06/2025 2:58 PM EDT) [facility] Glucose 94 70 - 130 mg/dL 04/06/2025 3:01 PM EDT [facility] BUN 33(H) 8 - 26 mg/dL 04/06/2025 3:01 PM EDT [facility] Creatinine 1.30 0.60 - 1.30 mg/dL 04/06/2025 3:01 PM EDT [facility] Sodium 140 138 - 146 mmol/L 04/06/2025 3:01 PM EDT [facility] POC Potassium 3.6 3.5 - 4.9 mmol/L 04/06/2025 3:01 PM EDT [facility] Chloride 99 98 - 109 mmol/L 04/06/2025 3:01 PM EDT [facility] Total CO2 26 24 - 29 mmol/L 04/06/2025 3:01 PM EDT [facility] Hemoglobin 13.9 12.0 - 17.0 g/dL 04/06/2025 3:01 PM EDT [facility] Comment:Serial Number: [id number] 7Operator: [id number] Hematocrit 41 38 - 51 % 04/06/2025 3:01 PM EDT [facility] Ionized Calcium 1.11(L) 1.20 - 1.32 mmol/L 04/06/2025 3:01 PM EDT [facility] eGFR 44.1(L) >60.0 mL/min/1.7 3 04/06/2025 3:01 PM EDT [facility] Blood 04/06/2025 2:58 PM EDT 04/06/2025 3:01 PM EDT Harrison Fink MD POINT OF CARE TEST ORDERA BLES Final Result Performing Organization Address [facility] Co de Phone Number [facility]
[address] [place] [address], * Sims Top (04/06/2025 2:54 PM EDT) Extra Tube Hold for add-ons. 04/06/2025 3:00 PM EDT [facility] Comment:Auto resulted. Blood Venipuncture / Unknown 04/06/2025 2:54 PM EDT 04/06/2025 2:59 PM EDT Harrison Fink MD LAB BLOOD ORDER ONLY Angelita l Result Performing Organization Address [facility] Phone Number [facility]
[address] [place] [address], * TSH Rfx On Abnormal To Free T4 (04/06/2025 2:54 PM EDT) TSH 1.730 0.270 - 4.200 uIU/mL 04/06/2025 3:47 PM EDT [facility] Blood Venipuncture / Unknown 04/06/2025 2:54 PM EDT 04/06/2025 2:59 PM EDT Harrison Fink MD LAB BLOOD ORDERABLES Angelita l Result Performing Organization Address [facility] Co de Phone Number [facility]
[address] [place] [address], [place] [phone] * Gold Top - SST (04/06/2025 2:54 PM EDT) Extra Tube Hold for add-ons. 04/06/2025 3:00 PM EDT [facility] Comment:Auto resulted. Blood Venipuncture / Unknown 04/06/2025 2:54 PM EDT 04/06/2025 2:59 PM EDT Harrison Fink MD LAB BLOOD ORDER ONLY Angelita l Result Performing Organization Address City/[facility]/ZIP Co de Phone Number [facility]
[address] [place] [address], * Green Top (Gel) (04/06/2025 2:54 PM EDT) Extra Tube Hold for add-ons. 04/06/2025 3:00 PM EDT [facility] Comment:Auto resulted. Blood Venipuncture / Unknown 04/06/2025 2:54 PM EDT 04/06/2025 2:59 PM EDT Harrison Fink MD LAB BLOOD ORDER ONLY Angelita l Result Performing Organization Address [facility]/ZIP Co de Phone Number [facility]
[address] [place] [address], * Scan Slide (04/06/2025 2:54 PM EDT) RBC Morphology Normal Normal 04/06/2025 3:41 PM EDT [facility] WBC Morphology Normal Normal 04/06/2025 3:41 PM EDT [facility] Platelet Morphology Normal Normal 04/06/2025 3:41 PM EDT [facility] Blood Venipuncture / Unknown 04/06/2025 2:54 PM EDT 04/06/2025 2:59 PM EDT Harrison Fink MD LAB BLOOD ORDERABLES Angelita l Result Performing Organization Address City/[facility]/ZIP Co de Phone Number [facility]
[address] [place] [address], * (ABNORMAL) CBC Auto Differential (04/06/2025 2:54 PM EDT) [facility] WBC 11.35(H) 3.40 - 10.80 10*3/mm3 04/06/2025 3:41 PM EDT [facility] RBC 4.37 3.77 - 5.28 10*6/mm3 04/06/2025 3:41 PM EDT [facility] Hemoglobin 13.1 12.0 - 15.9 g/dL 04/06/2025 3:41 PM EDT [facility] Hematocrit 40.5 34.0 - 46.6 % 04/06/2025 3:41 PM EDT [facility] MCV 92.7 79.0 - 97.0 fL 04/06/2025 3:41 PM EDT [facility] MCH 30.0 26.6 - 33.0 pg 04/06/2025 3:41 PM EDT [facility] MCHC 32.3 31.5 - 35.7 g/dL 04/06/2025 3:41 PM EDT [facility] RDW 14.0 12.3 - 15.4 % 04/06/2025 3:41 PM EDT [facility] RDW-SD 47.8 37.0 - 54.0 fl 04/06/2025 3:41 PM EDT [facility] MPV 11.0 6.0 - 12.0 fL 04/06/2025 3:41 PM EDT [facility] Platelets 303 140 - 450 10*3/mm3 04/06/2025 3:41 PM EDT [facility] Neutrophil % 43.1 42.7 - 76.0 % 04/06/2025 3:41 PM EDT [facility] Lymphocyte % 47.8(H) 19.6 - 45.3 % 04/06/2025 3:41 PM EDT [facility] Monocyte % 7.8 5.0 - 12.0 % 04/06/2025 3:41 PM EDT [facility] Eosinophil % 0.4 0.3 - 6.2 % 04/06/2025 3:41 PM EDT [facility] Basophil % 0.3 0.0 - 1.5 % 04/06/2025 3:41 PM EDT [facility] Immature Grans % 0.6(H) 0.0 - 0.5 % 04/06/2025 3:41 PM EDT [facility] Neutrophils, Absolute 4.88 1.70 - 7.00 10*3/mm3 04/06/2025 3:41 PM EDT [facility] Lymphocytes, Absolute 5.43(H) 0.70 - 3.10 10*3/mm3 04/06/2025 3:41 PM EDT [facility] Monocytes, Absolute 0.89 0.10 - 0.90 10*3/mm3 04/06/2025 3:41 PM EDT [facility] Eosinophils, Absolute 0.05 0.00 - 0.40 10*3/mm3 04/06/2025 3:41 PM EDT [facility] Basophils, Absolute 0.03 0.00 - 0.20 10*3/mm3 04/06/2025 3:41 PM EDT [facility] Immature Grans, Absolute 0.07(H) 0.00 - 0.05 10*3/mm3 04/06/2025 3:41 PM EDT [facility] nRBC 0.0 0.0 - 0.2 /100 WBC 04/06/2025 3:41 PM EDT [facility] Blood Venipuncture / Unknown 04/06/2025 2:54 PM EDT 04/06/2025 2:59 PM EDT us Harrison Fink MD LAB BLOOD ORDERABLES Angelita zapata Result [facility]
[address] [place] [address], * Lavender Top (04/06/2025 2:54 PM EDT) Extra Tube hold for add-on 04/06/2025 3:00 PM EDT [facility] Comment:Auto resulted Blood Venipuncture / Unknown 04/06/2025 2:54 PM EDT 04/06/2025 2:59 PM EDT Harrison Fink MD LAB BLOOD ORDER ONLY Angelita l Result Performing Organization Address City/[facility] Co de Phone Number [facility]
[address] [place] [address], * Light Blue Top (04/06/2025 2:54 PM EDT) Extra Tube Hold for add-ons. 04/06/2025 3:00 PM EDT [facility] Comment:Auto resulted Blood Venipuncture / Unknown 04/06/2025 2:54 PM EDT 04/06/2025 2:59 PM EDT Harrison Fink MD LAB BLOOD ORDER ONLY Angelita l Result Performing Organization Address [facility] Phone Number [facility]
[address] [place] [address], * BNP (04/06/2025 2:54 PM EDT) proBNP 330.3 0.0 - 900.0 pg/mL 04/06/2025 3:52 PM EDT [facility] Blood Venipuncture / Unknown 04/06/2025 2:54 PM EDT 04/06/2025 2:59 PM EDT Narrative [facility] - 04/06/2025 3:52 PM EDT [...] ORDERABLES Angelita l Result Performing Organization Address City/[facility]/ZIP Co de Phone Number [facility]
[address] [place] [address], * Magnesium (04/06/2025 2:54 PM EDT) Magnesium 1.8 1.6 - 2.4 mg/dL 04/06/2025 3:52 PM EDT [facility] Blood Venipuncture / Unknown 04/06/2025 2:54 PM EDT 04/06/2025 2:59 PM EDT Harrison Fink MD LAB BLOOD ORDERABLES Angelita l Result Performing Organization Address [facility]/ZIP Co de Phone Number [facility]
[address] [place] [address], * (ABNORMAL) Comprehensive Metabolic Panel (04/06/2025 2:54 PM EDT) Glucose 93 65 - 99 mg/dL 04/06/2025 3:53 PM EDT [facility] BUN 34.4(H) 8.0 - 23.0 mg/dL 04/06/2025 3:53 PM EDT [facility] Creatinine 1.06(H) 0.57 - 1.00 mg/dL 04/06/2025 3:53 PM EDT [facility] Sodium 141 136 - 145 mmol/L 04/06/2025 3:53 PM EDT [facility] Potassium 4.0 3.5 - 5.2 mmol/L 04/06/2025 3:[facility] Comment:Slight hemolysis det ected by analyzer. Result may be falsely elevated. Chloride 100 98 - 107 mmol/L 04/06/2025 3:53 PM EDT [facility] CO2 26.0 22.0 - 29.0 mmol/L 04/06/2025 3:53 PM T [facility] Calcium 9.1 8.6 - 10.5 mg/dL 04/06/2025 3:53 PM EDT [facility] Total Protein 6.7 6.0 - 8.5 g/dL 04/06/2025 3:53 PM T [facility] Albumin 4.0 3.5 - 5.2 g/dL 04/06/2025 3:53 PM [facility] ALT (SGPT) 15 1 - 33 U/L 04/06/2025 3:53 PM T [facility] AST (SGOT) 24 1 - 32 U/L 04/06/2025 3:53 PM T [facility] Comment:Slight hemolysis det ected by analyzer. Result may be falsely elevated. Alkaline Phosphatase 82 39 - 117 U/L 04/06/2025 3:53 PM T [facility] Total Bilirubin 0.2 0.0 - 1.2 mg/dL 04/06/2025 3:53 PM T [facility] Globulin 2.7 gm/dL 04/06/2025 3:53 PM T [facility] Comment:Calculated Result A/G Ratio 1.5 g/dL 04/06/2025 3:53 PM T [facility] BUN/Creatinine Ratio 32.5(H) 7.0 - 25.0 04/06/2025 3:53 PM [facility] Anion Gap 15.0 5.0 - 15.0 mmol/L 04/06/2025 3:53 PM [facility] eGFR 56.3(L) >60.0 mL/min/1.7 3 04/06/2025 3:53 PM [facility] Blood Venipuncture / Unknown 04/06/2025 2:54 PM EDT 04/06/2025 2:59 PM EDT Narrative [facility] - 04/06/2025 3:53 PM EDT [...] MD LAB BLOOD ORDERABLES Angelita l Result [facility]
[address] [place] [address], * XR Chest 1 View (04/06/2025 2:43 PM EDT) Anatomical Region Laterality Modality Body N/A Radiographic Dayanara ging 04/06/2025 3:10 PM EDT Impressions 04/06/2025 3:10 PM EDT Impression: No active disease. Electronically Signed: Jero Lima MD 04/06/2025 3:10 PM EDT Workstation ID: [id number] Narrative 04/06/2025 3:10 PM EDT XR CHEST [...] MD 04/06/2025 3:10 PM EDT Workstation ID: [id number] Harrison Fink MD IMG DIAGNOSTIC IMAGING OR DERABLES Final Result from Last 3 Months Insurance MEDICARE B ONLY MEDICAID [place] Care Teams Collections Agent Relationship Specialty Start Date End Date Marly Kumar APRN [address] [place] [address] PCP - General Family Medicine 07/06/24
--- OUTSIDE RECORDS SUMMARY | 2025-07-06 09:50 | XMS_ITS | Encounter Summary ---
Author Organization [employer] ([place], [place], [place], [place]) Address [address] [place] [address] Care Team Providers Care Economic Research Analyst Name Role Phone Marly Kumar PARASITOLOGIST Primary Care Provider [phone] Encounter Details Date Type Department Care Team (Late Contact Info) Description 07/26/2020 Transcribed Document [facility] Family Medicine [facility] [place] [address] ProviderMiya MD [address] [place] [address] [phone] Social History Tobacco Use Types Packs/Day Years [...] On: 07/26/2020 11:36 EDT by Jerry Hewitt SUPERVISOR IN CHARGE LEAD Meds to Bed Enrollment Patient Enrollment Decision: : Yes/enroll in meds to bed program Jerry Hewitt SUPERVISOR IN CHARGE LEAD - 07/26/2020 14:08 EDT Electronically signed by Klaus Sprague Conversion Entry Level Electrical Engineer Cerner at 02/19/2023 6:51 PM CDT documented in this encounter Plan of Treatment Upcoming Encounters Date Type Department Care Team (Late st Contact Info) Description 07/10/2025 10:00 AM EDT Office Visit [facility] Neurology [address] [facility] [address] [place] [address] Rad Duong MD [address] [facility] [address] [place] [address] documented as of this encounter Visit Diagnoses Not on filedocumented in this encounter Care Teams Economic Research Analyst Relationship Specialty Start Date End Date Marly Kumar, DUNG [address] [place], [place] [id number] PCP - General Nurse Practitioner 09/22/24 documented as of this encounter
--- OUTSIDE RECORDS SUMMARY | 2025-07-06 09:50 | XMS_ITS | Encounter Summary ---
Author Organization [employer] ([place], [place], [place], [place]) Address [address] [place] [address] Care Team Providers Care Rivet Maker Name Role Phone Marly Kumar SHOT POLISHER Primary Care Provider [phone] Encounter Details Date Type Department Care Team (Late st Contact Info) Description 07/28/2020 Transcribed Document [facility] Family Medicine [facility] [place] [address] ProviderMiya MD [address] [place] [id number] Social History Tobacco Use Types Packs/Day Years [...] On: 07/28/2020 13:07 EDT by JENNIFER TRUJILLO RN-Miller Supervisor Final Discharge Planning Discharge Arrangements : Patient Post-Acute Information Patient Name: RENNY VILLA Gender: Female : [birth year] Age: 64 Years No Post-Acute Placement(s) Listed No Post-Acute Service(s) Listed No [place] Referral(s) Listed Patient Offered Choice/Affiliations Explained : No Discharge Transportation Arrangement Cmt : [place] transportation Follow Up Appointment Scheduled : No (Comment: List of appointments sent to Patient Access Center [JENNIFER TRUJILLO RN-Miller Supervisor - 07/28/2020 13:07 EDT] ) Is Patient High/Moderate Readmission Risk? : No Patient/Family Notified of Plan : Yes Is Patient Ready for Discharge? : Yes Physician Notified Patient is Ready for Discharge? : Yes Discharge To Care Management : SNF with Medicare Certification-03 JENNIFER TRUJILLO RN-Miller Supervisor - 07/28/2020 13:07 EDT Final Narrative Note Final Narrative Note : Discharged back to [facility]. Transportation by [place] Transport JENINFER TURJILLO RN-Miller Supervisor - 07/28/2020 13:07 EDT documented in this encounter Plan of Treatment Upcoming Encounters Date Type Department Care Team (Late st Contact Info) Description 07/10/2025 10:00 AM EDT Office Visit [facility] Neurology [address] [facility] [address] [place] [address] Rad Duong MD [address] [facility] [address] [place], [place] [id number] documented as of this encounter Visit Diagnoses Not on filedocumented in this encounter Care Teams Rivet Maker Relationship Specialty Start Date End Date Marly Kumar NP [address] [place] [address] PCP - General Nurse Practitioner 09/22/24 documented as of this encounter
--- OUTSIDE RECORDS SUMMARY | 2025-07-06 09:50 | XMS_ITS | Encounter Summary ---
Author Organization [employer] ([place], [place], [place], [place]) Address [address] [place] [address] Care Team Providers Care Pmo Manager Name Role Phone Marly Kumar OUTSIDE SALES ACCOUNT MANAGER Primary Care Provider Encounter Details Date Type Department Care Team (Late st Contact Info) Description 07/28/2020 Transcribed Document [facility] Family Medicine [facility] [place] [address] ProviderMiya MD [address] [place] [phone] Social History Tobacco Use Types Packs/Day Years [...] EEG-video monitoring was performed using the 32-channel [employer] monitoring system. The seizure detection computer was [...] temporal regions, more prominent on the left. /[id number] Rad Duong MD TAF/AQ / TAF / MODL /[id number] Electronically signed by Celestine [facility] Conversion Harnessmaker Cerner at 02/19/2023 6:29 PM CDT documented in this encounter Plan of Treatment Upcoming Encounters Date Type Department Care Team (Late st Contact Info) Description 07/10/2025 10:00 AM EDT Office Visit [facility] Neurology [address] [facility] [address] [place] [address] [place] [address] [place] [address] [address] [place] [address] documented as of this encounter Visit Diagnoses Not on filedocumented in this encounter Care Teams Pmo Manager Relationship Specialty Start Date End Date Marly Kumar, DUNG [address] [place] [address] PCP - General Nurse Practitioner 09/22/24 documented as of this encounter
--- OUTSIDE RECORDS SUMMARY | 2025-07-06 09:50 | XMS_ITS | Encounter Summary ---
Author Organization [employer] ([place], [place], [place]) Address [address] [place] [address] Care Team Providers Care Head Sulfide Operator Name Role Phone Marly Kumar SCREEN STRETCHER Primary Care Provider [phone] Encounter Details Date Type Department Care Team (Late st Contact Info) Description 07/27/2020 Transcribed Document [place] Family Medicine [facility] [place] [address] ProviderMiya MD [address] [place] [address] [phone] Social History Tobacco Use Types Packs/Day Years [...] EEG-video monitoring was performed using the 32-channel [employer] monitoring system. The seizure detection computer was [...] noted suggestive of mild diffuse cerebral dysfunction. /[id number] MD RAPHAEL Esquivel/JOHNNIE / RAPHAEL / MODL /[id number] documented in this encounter Plan of Treatment Upcoming Encounters Date Type Department Care Team (Late st Contact Info) Description 07/10/2025 10:00 AM EDT Office Visit [facility] Neurology [address] [facility] [address] [place] [address] Rad Duong MD [address] [facility] [address] [place], [place] [phone] documented as of this encounter Visit Diagnoses Not on filedocumented in this encounter Care Teams Head Sulfide Operator Relationship Specialty Start Date End Date Marly Kumar, DUNG [address] [place] [address] PCP - General Nurse Practitioner 09/22/24 documented as of this encounter
--- OUTSIDE RECORDS SUMMARY | 2025-07-06 09:50 | XMS_ITS | Encounter Summary ---
Author Organization [facility] Address [address] [place] [address] Care Team Providers Care Crozer Name Role Phone Marly Kumarshanika ROSENBERG Primary Care Provider [phone] Encounter Details Date Type Department Care Team (Late st Contact Info) Description 06/05/2025 Telephone [facility] CARDIOLOGY [address] [place] [address] Kailey Porras APRN [address] [place] [address] Social History Tobacco Use Types [...] 2:45 PM EDT Clinical Support No Requirements [facility] CARD[facility] [address] [place] [address] 08/16/2025 3:00 PM EDT Office Visit [facility] CARD[facility] [address] [place] [address] Kailey Porras APRN [address] [place] [address] documented as of this encounter Visit Diagnoses Not on filedocumented in this encounter Care Teams Crozer Relationship Specialty Start Date End Date Marly Kumar, SUPERVISOR TYPE DISK QUALITY CONTROL [address] [place] [address] PCP - General Family Medicine 07/06/24 documented as of this encounter
--- OUTSIDE RECORDS SUMMARY | 2025-07-06 09:50 | XMS_ITS | Encounter Summary ---
Author Organization [facility] Address [address] [place] [address] Care Team Providers Care Fire Equipment Operator Name Role Phone Marly Kumar SHAKIRA Primary Care Provider [phone] Encounter Details Date Type Department Care Team [...] 2:45 PM EDT Clinical Support No Requirements [facility] CARDIOLOGY [address] [place] [address] 08/16/2025 3:00 PM EDT Office Visit [facility] CARDIOLOGY [address] [place] [address] Kailey Porras APRN [address] [place] [address] documented as of this encounter Visit Diagnoses Not on filedocumented in this encounter Care Teams Fire Equipment Operator Relationship Specialty Start Date End Date Marly Kumar APRN [facility] [place] [address] PCP - General Family Medicine 07/06/24 documented as of this encounter
--- OUTSIDE RECORDS SUMMARY | 2025-07-06 09:50 | XMS_ITS | Encounter Summary ---
Author Organization [employer] ([place], [place], [place], [place]) Address [address] [place] [address] Care Team Providers Care Garment Supervisor Name Role Phone Marly Kumar TRANSITION ASSISTANT Primary Care Provider [phone] Encounter Details Date Type Department Care Team (Late st Contact Info) Description 07/27/2020 Transcribed Document [facility] Family Medicine [facility] [place] [address] ProviderMiya MD [address] [place] [address] [phone] Social History Tobacco Use Types Packs/Day Years [...] Insurance 1 Health Plan: MEDICARE Policy Number: [id number] Authorization Number: Insurance 2 Health Plan: [place] Policy Number: [id number] Authorization Number: Insurance Primary Name : MEDICARE Policy Number: [id number] Authorized Service Begin Date-Primary : 07/26/2020 EDT Historical Authorization Comments-Primary : No Authorization Comments Found DRISS DEL REAL RN - 07/27/2020 12:35 EDT Electronically signed by Celestine [facility] Conversion Emergency Management Coordinator Cerner at 02/19/2023 6:32 PM CDT documented in this encounter Plan of Treatment Upcoming Encounters Date Type Department Care Team (Late st Contact Info) Description 07/10/2025 10:00 AM EDT Office Visit [facility] Neurology [address] [facility] [address] [place] [address] Rad Duong MD [address] [facility] [address] [place] [address] documented as of this encounter Visit Diagnoses Not on filedocumented in this encounter Care Teams Garment Supervisor Relationship Specialty Start Date End Date Marly Kumar, DUNG [address] [place] [address] PCP - General Nurse Practitioner 09/22/24 documented as of this encounter
--- OUTSIDE RECORDS SUMMARY | 2025-07-06 09:50 | XMS_ITS | Encounter Summary ---
Author Organization [facility] Address [address] [place] [address] Care Team Providers Care Branch Officer Name Role Phone Marly Kumar APRN Primary Care Provider [phone] Reason for Visit * Reason Comments Med Refill Encounter Details Date Type Department Care Team (Late st Contact Info) Description 06/09/2025 Refill [facility] CARDIOLOGY [address] [place] [address] Dinorah Christiansen MD [address] [place] [address] Med Refill Social History Tobacco Use [...] 2:45 PM EDT Clinical Support No Requirements [facility] CARDI[facility] [address] [place] [place] [address] 08/16/2025 3:00 PM EDT Office Visit [facility] CARDIOLOGY [address] [place] [address] Kailey Porras APRN [address] [place] [address] documented as of this encounter Visit Diagnoses Diagnosis Hypomagnesemia Disorders of magnesium metabolism documented in this encounter Care Teams Branch Officer Relationship Specialty Start Date End Date Marly Kumar APRN [address] [place] [address] PCP - General Family Medicine 07/06/24 documented as of this encounter
--- OUTSIDE RECORDS SUMMARY | 2025-07-06 09:50 | XMS_ITS | Encounter Summary ---
Author Organization [facility] Address [address] [place] [address] Care Team Providers Care At&T Retailer Sales Consultant Name Role Phone Marly Kumar APRN Primary Care Provider [phone] Encounter Details Date Type Department Care Team (Late st Contact Info) Description 05/23/2025 Patient rounding ([facility] [facility] [address] [place] [address] Dinorah Christiansen MD [address] [...] is Marianela Delgado and I am the Checker [employer] for [facility]. I would like to thank you for [...] your first visit to us as a [facility]? In the next few days, you will be receiving a Patient Experience Survey. Thank you for taking the time to answer a few questions today. I hope you have a good day. documented in this encounter Plan of Treatment Upcoming Encounters Date Type Department Care Team (Late st Contact Info) Description 08/16/2025 2:45 PM EDT Clinical Support No Requirements [facility] C[facility]IOLOG[facility] [address] [place] [id number] 08/16/2025 3:00 PM EDT Office Visit [facility] CARDIOLOG[facility] [address] [address] Kailey Porras APRN [address] [place] [address] documented as of this encounter Visit Diagnoses Not on filedocumented in this encounter Care Teams At&T Retailer Sales Consultant Relationship Specialty Start Date End Date Marly Kumar APRN [address] [place], [place] [phone] PCP - General Family Medicine 07/06/24 documented as of this encounter
--- OUTSIDE RECORDS SUMMARY | 2025-07-06 09:50 | XMS_ITS | Encounter Summary ---
Author Organization [employer] ([place], [place], [place], [place]) Address [address] [place] [address] Care Team Providers Care Wood Model Builder Name Role Phone Marly Kumar RETORT PRE COOKER Primary Care Provider [phone] Encounter Details Date Type Department Care Team (Late st Contact Info) Description 07/28/2020 Transcribed Document [facility] Family Medicine [facility] [place] [address] ProviderMiya MD [address] [place] [phone] Social History Tobacco Use Types Packs/Day Years [...] Description 07/10/2025 10:00 AM EDT Office Visit [facility] Neurology [address] [facility] [address] [place] [address] Rda Duong MD [address] [facility] [address] [place] [address] documented as of this encounter Visit Diagnoses Not on filedocumented in this encounter Care Teams Wood Model Builder Relationship Specialty Start Date End Date Marly Kumar NP [address] [place] [address] PCP - General Nurse Practitioner 09/22/24 documented as of this encounter
--- OUTSIDE RECORDS SUMMARY | 2025-07-06 09:50 | XMS_ITS | Encounter Summary ---
Author Organization [facility] Address [address] [place] [address] Care Team Providers Care Perinatal Specialist Name Role Phone Marly Kumar APRN Primary Care Provider [phone] Encounter Details Date Type Department Care Team (Late st Contact Info) Description 06/12/2025 Telephone [facility] CARDIOLOGY [address] [place] [address] Dinorah Christiansen MD [address] [place] [address] Social History Tobacco Use Types [...] PM EDT I spoke to Melissa at [facility]. She states Bisoprolol 2.5 mg is on backorder. Would like to fill 5 mg and take 1/2 tab qd. * Telephone Encounter - Miryam Blanton RegSched Rep - 06/12/2025 1:04 PM EDT MELISSA FROM [facility] CALLED ASKING ABOUT A MEDICATION PT NEEDS FILLED, NO CLINICAL STAFF AVAILABLE AT THE TIME. SHE CAN BE REACHED @ [phone]. THANKS. documented in this encounter Plan of Treatment Upcoming Encounters Date Type Department Care Team (Late st Contact Info) Description 08/16/2025 2:45 PM EDT Clinical Support No Requirements [facility] [address] [address] 08/16/2025 3:00 PM EDT Office Visit [facility]ARDI[facility] [address] [address] Kailey Porras APRN [address] [facility] [place] [address] documented as of this encounter Visit Diagnoses Not on filedocumented in this encounter Care Teams Perinatal Specialist Relationship Specialty Start Date End Date Marly Kumar APRN [address] [place] [id number] PCP - General Family Medicine 07/06/24 documented as of this encounter
--- OUTSIDE RECORDS SUMMARY | 2025-07-06 09:50 | XMS_ITS | Encounter Summary ---
Author Organization [employer] ([place], [place], [place], [place]) Address [address] [place] [address] Care Team Providers Care Emergency Management Coordinator Name Role Phone Marly Kumar PHARMACY TECHNOLOGY INSTRUCTOR Primary Care Provider [phone] Encounter Details Date Type Department Care Team (Late st Contact Info) Description 07/27/2020 Transcribed Document [facility] [place] [facility] [place] [address] ProviderMiya MD [address] [place] [phone] Social History Tobacco Use Types Packs/Day Years [...] Oil: 1,000 mg, Oral, Daily Flonase: 1 [place], Nostrils Both, Daily Florastor: 250 mg, Oral, [...] Daily, 60 Cap, 0 Refill(s) Flonase: 1 [place], Nostrils Both, Daily, 0 Refill(s) Florastor: 250 [...] = 1 Cap, Oral, Daily Flonase 1 [place], Nostrils Both, Daily Florastor 250 mg, Oral, [...] Oral, Daily fluticasone 0.05% nasal spray 1 [place], Nostrils Both, Daily furosemide 40 mg tab [...] At risk for sleep apnea / IMO [id number] / Confirmed, Active Problems (17) Angina Arthritis [...] EDT Height Source Stated Height Entry Format [place] Height/Length, SERBIAN (ft) 4 ft Height/Length SERBIAN 11 Inch CLINICALHEIGHT 149.86 cm Type of Weight Measurement. [place] Weight, est lb 245 lb Estimated Clinical Dosing Weight 111.36 kg [place] Body Weight 43 kg Weight Source Stated 07/26/2020 15:40 EDT Height Source Not Done: Completed and previously documented (Not Done) Height Entry Format Not Done: Completed and previously documented (Not Done) Weight Source Not Done: Completed and previously documented (Not Done) , Vitals Signs (last 24 hrs) Last Charted Minimum Maximum Temp 98.3 (JUL 24 12:00) 98.3 ([facility] 12:00) 98.3 ([facility] 12:00) Apical HR 65 ([facility] 12:00) 65 ([facility] 24 12:00) 65 ([facility] 24 12:00) Resp Rate 18 ([facility] 24 12:00) 18 ([facility] 24 12:00) 18 ([facility] 24 12:00) SBP H 153 ([facility] 24 12:00) H 153 ([facility] 24 12:00) H 153 ([facility] 24 12:00) DBP 81 ([facility] 24 12:00) 81 ([facility] 24 12:00) 81 ([facility] 24 12:00) General: Alert and oriented. Eye: Pupils are equal, round and reactive to light. Neurologic: Normal motor function, No focal deficits, Cranial Nerves II-XII are grossly intact. Results Review Continuous EEG: bilateral temporal slowing Impression and Plan Discussed findings with patient. 1. Continue video EEG monitoring. 2. DVT prophylaxis documented in this encounter Plan of Treatment Upcoming Encounters Date Type Department Care Team (Late st Contact Info) Description 07/10/2025 10:00 AM EDT Office Visit [facility] Neurology [address] [place] [address] [address] [place] [address] [place] [address] [place] [address] [address] [place] [address] documented as of this encounter Visit Diagnoses Not on filedocumented in this encounter Care Teams Emergency Management Coordinator Relationship Specialty Start Date End Date Marly Kumar, DUNG [address] [place] [address] PCP - General Nurse Practitioner 09/22/24 documented as of this encounter
--- OUTSIDE RECORDS SUMMARY | 2025-07-06 09:50 | XMS_ITS | Encounter Summary ---
Author Organization [employer] ([place], [place], [place], [place]) Address [address] [place] [address] Care Team Providers Care Chief Airport Guide Name Role Phone Marly Kumar SUPERVISOR SHED WORKERS Primary Care Provider [phone] Encounter Details Date Type Department Care Team (Late st Contact Info) Description 07/27/2020 Transcribed Document [facility] [place] [facility] [place] [address] ProviderMiya MD [address] [place] [id number] Social History Tobacco Use Types Packs/Day Years [...] On: 07/27/2020 14:25 EDT by EDISON FONTANEZ, RN-Crystal FinisherTalent Analyst Progress Note Discharge Arrangements : Patient Post-Acute [...] Attend Multidisciplinary Rounds? : No EDISON FONTANEZ, RN-Crystal Finisher - 07/27/2020 14:25 EDT Narrative Progress Note Narrative Progress Note : Continues on EEG monitoring. Updates faxed to [facility]. Historical Progress Note : On continuous EEG monitoring. EDISON FONTANEZ, RN-Crystal Finisher - 07/26/20 16:04:13 EDISON FONTANEZ, RN-Crystal Finisher - 07/27/2020 14:25 EDT Electronically signed by [facility] Conversion Industrial Twisting Machine Operator Cerner at 02/19/2023 6:34 PM CDT documented in this encounter Plan of Treatment Upcoming Encounters Date Type Department Care Team (Late st Contact Info) Description 07/10/2025 10:00 AM EDT Office Visit [facility] Neurology [address] [place] [address] Rad Duong MD [address] [place] [address] documented as of this encounter Visit Diagnoses Not on filedocumented in this encounter Care Teams Chief Airport Guide Relationship Specialty Start Date End Date Marly Kumar NP [address] [place], [place] [id number] PCP - General Nurse Practitioner 09/22/24 documented as of this encounter
--- OUTSIDE RECORDS SUMMARY | 2025-07-06 09:50 | XMS_ITS | Encounter Summary ---
Author Organization [facility] ([place], [place], [place], [place]) Address [address] [place] [address] Care Team Providers Care Differential Specialist Name Role Phone Marly Kumar CHAIR CAR ATTENDANT Primary Care Provider [phone] Encounter Details Date Type Department Care Team (Late st Contact Info) Description 07/26/[address] [facility] [place] [facility] [place] [address] ProviderMiya MD [address] [place] [address] [id number] Social History Tobacco Use Types Packs/Day Years [...] On: 07/26/2020 15:58 EDT by EDISON FONTANEZ, RN-Tension Worker Initial Assessment I Previously Documented Living Environment [...] Is Guardianship Needed : No EDISON FONTANEZ, RN-Tension Worker - 07/26/2020 15:58 EDT Initial Assessment II Sensory and Motor Deficits : Weakness Deficit Description : uses a wheelchair for mobility Current Home Treatments and Equipment : Wheelchair Services and Community Resources : Transportation assistance Services and Community Resources Addl Comments : [facility] phone [phone] fax [phone] [facility] phone [phone] / [phone] Does the Patient have a Floor to SNF Benefit? : No EDISON FONTANEZ, RN-Tension Worker - 07/26/2020 15:58 EDT Discharge Needs I Anticipated Discharge Date : 07/28/2020 EDT Anticipated Discharge To, : Extended Care Facility Current Home Treatment/Equipment : Current Home Treatment/Equipment No qualifying data available. Post Acute/Home Treatments : None Documentation Status Complete : Yes EDISON FONTANEZ RN-Tension Worker - 07/26/2020 15:58 EDT Discharge Needs II Professional Skilled Services : Professional Skilled Services No qualifying data available. Needs Assistance with Transportation : Yes EDISON FONTANEZ RN-Tension Worker - 07/26/2020 15:58 EDT Narrative Note Narrative Note : Pt from [facility] in [facility]. Called Em at [facility]. She stated that pt has a bedhold. She stated that pt travels using [facility] (the bus). She stated that pt can return to the facility when she is discharged. EDISON FONTANEZ RN-Tension Worker - 07/26/2020 15:58 EDT documented in this encounter Plan of Treatment Upcoming Encounters Date Type Department Care Team (Late st Contact Info) Description 07/10/2025 10:00 AM EDT Office Visit [facility] Neurology [address] [facility] [address] [place] [address] Rad Duong MD [address] [facility] [address] [place], [place] [id number] documented as of this encounter Visit Diagnoses Not on filedocumented in this encounter Care Teams Differential Specialist Relationship Specialty Start Date End Date Marly Kumar, DUNG [address] [place] [id number] PCP - General Nurse Practitioner 09/22/24 documented as of this encounter
--- OUTSIDE RECORDS SUMMARY | 2025-07-06 09:50 | XMS_ITS | Clinical Summary ---
Author Organization [employer] ([place], [place], [place], [place]) Address [address] [place] [address] Care Team Providers Care Line Lead Name Role Phone Marly Kumar LOW PRESSURE BOILER OPERATOR Primary Care Provider [phone] Allergies Active Allergy Reactions Criticality Noted Date [...] 10/06/2024 Pacemaker 10/06/2024 Other supraventricular tachycardia 10/06/2024 [place] (myocardial infarction) 10/06/2024 Gastroesophageal reflux disease 10/06/2024 [...] Description 07/10/2025 10:00 AM EDT Office Visit [facility] Neurology [address] [place] [address] [address] [place] [address] [place] [address] [place] [address] [address] [place] [address] Health Maintenance Due Date Last Done Comments [...] Completed 12/28/2024, Medical Devices Implanted Type Area Merchandise Handler Device Identifier Shelf Expiration Date Model / Serial / Lot Iol Uv Clareon +21.5 [id number] - [id number] Implanted:Qty: 1 on 09/22/2024 by Urmila So MD at [facility] IMPLANTS Left: Eye GUS 09/24/2027 [id number] / [id number] / Iol Uv Clareon +22.0 [id number] - [id number] Implanted:Qty: 1 on 10/06/2024 by Urmila So MD at [facility] IMPLANTS Right: Eye GUS 08/05/2027 [id number] / [id number] / Insurance MEDICARE PART B ONLY MEDICAID OF [place] MEDICARE PART A B Care Teams Line Lead Relationship Specialty Start Date End Date Marly Kumar, DUNG [address] [place] [address] PCP - General Nurse Practitioner 09/22/24
--- OUTSIDE RECORDS SUMMARY | 2025-07-06 09:50 | XMS_ITS | Encounter Summary ---
Author Organization [employer] ([place], [place], [place], [place]) Address [address] [place] [address] Care Team Providers Care Patient Accounts Clerk Name Role Phone Marly Kumar SILVERING DEPARTMENT SUPERVISOR Primary Care Provider [phone] Encounter Details Date Type Department Care Team (Late st Contact Info) Description 07/28/2020 Transcribed Document [facility] [place] Medicine [address] [place] [address] ProviderMiya MD [address] [place] [address] Social History Tobacco Use Types Packs/Day [...] Miya ProviderMD - 07/28/2020 10:08 AM CDT [address] [place] [address] Patient Copy Patient Information: Name: RENNY VILLA Current Date: 07/28/2020 10:08:21 : 1955 Patient Address: [address] [facility] [address] Patient Attending Physician: YADI DUONG MD-NEU Primary Care Provider: MARIE OMER (REF)ALEJA Primary Care Provider Discharge Diagnosis: Abnormal electroencephalogram (EEG); Localization-related (focal) (partial) idiopathic epilepsy and epileptic syndromes with seizures of localized onset, intractable, without status epilepticus Comment: Follow-up Instructions: With: Address: When: YADI DUONG [address] [place] [address], [address] [place] [address] Business (1) Within 6 months Discharge Instructions: [...] Oral Every Day. fluticasone nasal (Flonase) 1 Marcellus(s) Nostrils Both Every Day. furosemide (Lasix 40 [...] Assistance with quitting is available by contacting 7-177-YFUI-NOW. This is a free resource providing counseling, [...] Be sure to sign up for the [employer] patient portal, which gives you 25/05 access to your medical information ??? including these discharge instructions ??? using your computer, smartphone, or tablet. Just go to [employer] to get started. Questions? Call . [facility] would like to thank you for allowing us to assist you with your healthcare needs. DAISY Richter JACKQUELINE F, (or sales promotion representative) have received the above patient education materials/instructions and have verbalized understanding: Patient Signature _ Date/Time Patient Hot Dimpling Machine Operator Signature (if needed) Date/Time Clinician/Hospital Hot Dimpling Machine Operator Signature (if needed) Date/Time documented in this encounter Plan of Treatment Upcoming Encounters Date Type Department Care Team (Late st Contact Info) Description 07/10/2025 10:00 AM EDT Office Visit [facility] Neurology [address] [place] [address] Yadi Duong MD [address] [place] [address] documented as of this encounter Visit Diagnoses Not on filedocumented in this encounter Care Teams Patient Accounts Clerk Relationship Specialty Start Date End Date Marly Kumar NP [address] [place] [address] PCP - General Nurse Practitioner 09/22/24 documented as of this encounter
--- OUTSIDE RECORDS SUMMARY | 2025-07-06 09:50 | XMS_ITS | Encounter Summary ---
Author Organization [employer] ([place], [place], [place], [place]) Address [address] [place] [address] Care Team Providers Care Commutator Undercutter Name Role Phone Marly Kumar FINISHED GOODS PLANNER Primary Care Provider [phone] Encounter Details Date Type Department Care Team (Late st Contact Info) Description 07/28/2020 Transcribed Document [facility] [place] Medicine [facility] [place] [address] ProviderMiya MD [facility] [place] [address] Social History Tobacco Use Types [...] Description 07/10/2025 10:00 AM EDT Office Visit [facility] Neurology [address] [facility] [address] [place] [address] Rad Duong MD [address] [facility] [address] [place] [address] documented as of this encounter Visit Diagnoses Not on filedocumented in this encounter Care Teams Commutator Undercutter Relationship Specialty Start Date End Date Marly Kumar, DUNG [address] [place] [id number] PCP - General Nurse Practitioner 09/22/24 documented as of this encounter
--- OUTSIDE RECORDS SUMMARY | 2025-07-06 09:50 | XMS_ITS | Encounter Summary ---
Author Organization Healthcare Address [address] [place] [address] Care Team Providers Care Finance Vice President Name Role Phone Pcp, No Primary Care Provider Unavailabl e Jessie Payne CARPENTRY TEACHER Unavailable [phone] Marly Kumar CARPENTRY TEACHER Primary Care Provider [phone] Reason for Referral * Consultation (Routine) - Closed Specialty Diagnoses / Procedures Referred By Contact Referred To Contact Physical Medicine and Rehabilitation Diagnoses Numbness Numbness and tingling Carpal tunnel syndrome, bilateral Cynthia Garay MD [address] [place] [address] [place] [address] Phone: tel:[phone] fax:[phone] [facility] at [facility] [address] [place] [address] Phone: tel: fax: Referral ID Status Reason Start Date Expiration Date V isits Requested Visits Authorized [id number] Closed Specialty Services Required 06/02/2025 12/02/2026 1 1 Encounter Details Date Type Department Care Team (Late st Contact Info) Description 06/02/2025 [facility] Community Practice [address] [place] [address] Cynthia aGray MD [address] [facility] [address] [place] [address] Numbness (Primary Dx); Numbness and tingling; [...] drink first t zander in the morning (EYE-JAVA WEB ENGINEER) to steady your nerves or to [...] of Assessment Author No 08/08/2023 5:39 PM SEANT Kevin Isidro RN * Are you blind or do you have serious difficulty seeing, even when wearing glasses? Answer Date of Assessment Author No 08/08/2023 5:39 PM EDT Kevin Isidro RN * Do you have serious difficulty walking or climbing stairs? Answer Date of Assessment Author No 08/08/2023 5:39 PM SEANT Kevin Isidro RN * Do you have [...] [facility] [address] [place] [address] [address] Henson, [address] [place] [address] Scheduled Referrals Name Type Priority [...] documented as of this encounter Care Teams Finance Vice President Relationship Specialty Start Date End Date Pcp, No [address] [place] [address] PCP - General Family Medicine 08/07/23 06/08/25 Marly Kumar, CARPENTRY TEACHER [address] [place] [address] PCP - General 06/09/25 Jessie Payne APRN [address] [place] [address] 08/07/23 documented as of this encounter
--- OUTSIDE RECORDS SUMMARY | 2025-07-06 09:50 | XMS_ITS | Encounter Summary ---
Author Organization [employer] ([place], [place], [place], [place]) Address [address] [place] [address] Care Team Providers Care Pouncing Machine Operator Name Role Phone Marly Kumar QUILT SEWER Primary Care Provider [phone] Encounter Details Date Type Department Care Team (Late st Contact Info) Description 07/28/2020 Transcribed Document [facility] Family [place] [address] ProviderMiya MD [address] [place] [address] [id number] Social History Tobacco Use Types Packs/Day Years [...] EEG-video monitoring was performed using the 32-channel [employer] monitoring system. The seizure detection computer was [...] may be more prominent on the right. /[id number] MD RAPHAEL Esquivel/JOHNNIE / TAF / MODL /[id number] documented in this encounter Plan of Treatment Upcoming Encounters Date Type Department Care Team (Late st Contact Info) Description 07/10/2025 10:00 AM EDT Office Visit [facility] Neurology [address] [place] [address] Rad Duong MD [address] [facility] [address] [place] [address] documented as of this encounter Visit Diagnoses Not on filedocumented in this encounter Care Teams Pouncing Machine Operator Relationship Specialty Start Date End Date Marly Kumar, DUNG [address] [place] [address] PCP - General Nurse Practitioner 09/22/24 documented as of this encounter
--- OUTSIDE RECORDS SUMMARY | 2025-07-06 09:50 | XMS_ITS | Referral Summary ---
Author Organization [employer] ([place], [place], [place], [place]) Address [address] [place] [address] Care Team Providers Care Home Theater Expert Name Role Phone Marly Kumar KINDERGARTEN CLASSROOM TEACHER Primary Care Provider [phone] Allergies Active Allergy Reactions Criticality Noted Date [...] 10/06/2024 Pacemaker 10/06/2024 Other supraventricular tachycardia 10/06/2024 [place] (myocardial infarction) 10/06/2024 Gastroesophageal reflux disease 10/06/2024 [...] EDT Office Visit [facility] Neurology [address] [place] [address] [address] [place] [address] [place] [address] [place] [address] [address] [place] [id number] Medical Devices Implanted Type Area Linen Aide Device Identifier Shelf Expiration Date Model / Serial / Lot Iol Uv Clareon +21.5 [id number] - [id number] Implanted:Qty: 1 on 09/22/2024 by Urmila So MD at [facility] IMPLANTS Left: Eye GUS 09/24/2027 [id number] / [id number] / Iol Uv Clareon +22.0 [id number] - [id number] Implanted:Qty: 1 on 10/06/2024 by Urmila So MD at [facility] IMPLANTS Right: Eye GUS 08/05/2027 [id number] / [id number] / Insurance MEDICARE PART B ONLY MEDICAID OF [place] MEDICARE PART A B Care Teams Home Theater Expert Relationship Specialty Start Date End Date Marly Kumar, DUNG [address] [place] [address] PCP - General Nurse Practitioner 09/22/24
--- OUTSIDE RECORDS SUMMARY | 2025-07-06 09:50 | XMS_ITS | Encounter Summary ---
Author Organization [facility] Address [address] [place] [address] Care Team Providers Care Chef'S Assistant Name Role Phone Marly Kumar APRN Primary Care Provider [phone] Encounter Details Date Type Department Care Team (Late st Contact Info) Description 05/30/2025 Telephone [facility] CARDIOLOGY 24 [...] 4:09 PM EDT Spoke with Tracee @ [facility] Neurology Clinic gave her instructions on [...] - 05/30/2025 3:46 PM EDT LVM for [facility] to call back. * Telephone Encounter - [...] RN - 05/30/2025 3:01 PM EDT Called [facility] in [facility] [phone]. Pt is rescheduled for 06/06/25. Also called Gilmar Barroso [phone] [facility] LVM for him to [...] PM EDT Tracee from Neurology Clinic @ [facility] called as pt is there for a [...] [place] [address] Kailey Porras APRN [address] [place] [address] documented as of this encounter Visit Diagnoses Not on filedocumented in this encounter Care Teams Chef'S Assistant Relationship Specialty Start Date End Date Marly Kumar APRN [facility] [place] [address] PCP - General Family Medicine 07/06/24 documented as of this encounter
--- OUTSIDE RECORDS SUMMARY | 2025-07-06 09:50 | XMS_ITS | Encounter Summary ---
Author Organization [employer] ([place], [place], [place], [place]) Address [address] [place] [address] Care Team Providers Care Motorcycle Tester Name Role Phone Marly Kumar INSTRUMENT STERILIZER Primary Care Provider [phone] Encounter Details Date Type Department Care Team (Late st Contact Info) Description 07/26/2020 Transcribed Document [facility] [place] [place] [facility] [place] [address] ProviderMiya MD [address] [place] [address] Social History Tobacco Use Types Packs/Day Years [...] Services : Nursing, Occupational therapy, Physical Therapy, bin cleaner, Respiratory Therapy, Ventilating Engineer Courtney Kearns RN - 07/26/2020 16:24 EDT General Info Arrived From : intermodal owner operator truck driver care [facility] Mode of Arrival on Unit : Wheelchair Patient Arrival Date/Time : 07/26/2020 12:00 EDT Legal Guardian : Care provider Legal Guardian : No Support Person/Patient Supervisor Landscape : No Support Person/Pt Rep Name : Marie Perkins [phone] Want Family/Rep/Phys Notified of Admit : No Emergency Contact #1 : Mckenna Mata Emergency Contact #1 Emergency Contact #1 Relationship : daughter Emergency Contact #2 : n/a Emergency Contact #2 Phone Number : n/a Emergency Contact #2 Relationship : n/a Information Obtained From : Medical Record Primary Language : Belgian Preferred Communication Mode : Verbal Communication Barrier : None Masonry Contractor Needed : No Objects to Sharing Info [...] of Ambulatory Aid : Bed rest/Nurse assist NAGEL IV Therapy or IV Access : Yes Angel Gait/Transferring : Weak Angel Mental Status : Overestimates/Forgets limitations Angel Fall Risk Score : 60 ANGEL Fall Scale Risk Level : 46 or > High Risk [place] Fall Interventions : Adequate lighting, Bed in [...] Source : Stated Height Entry Format : [place] Height, Feet : 4 ft(Converted to: 122 cm, 48 Inch) Height, Inches : 11 Inch(Converted to: 0 ft 11 Inch, 27.94 cm) Clinical Height : 149.86 cm Weight Source : Stated [place] Body Weight : 43 kg Courtney Kearns RN - 07/26/2020 16:24 EDT Estimated Weight Type of Weight Measurement Est : [place] Weight, est lb : 245 lb(Converted to: [...] Assessment : Pt transferred from SNF, LTC, [facility], or rehab hospital Active Surveillance Screen Positive [...] Courtney Kearns RN - 07/26/2020 16:24 EDT [place]ard Suicide Severity Rating Scale (C-SSRS) CSSRS Past [...] Any Spiritual/Cultural Needs or Requests : No Courntey Kearns RN - 07/26/2020 16:24 EDT Valuables and Belongings Valuables and Belongings : Clothing Clothing : Common streetwear Clothing Disposition : Bedside Courtney Kearns RN - 07/26/2020 16:24 EDT Electronically signed by [facility] Conversion Toe Stripper Cerner at 02/19/2023 6:44 PM CDT documented in this encounter Plan of Treatment Upcoming Encounters Date Type Department Care Team (Late st Contact Info) Description 07/10/2025 10:00 AM EDT Office Visit [facility] Neurology [address] [facility] [address] [place] [address] Rad Duong MD [address] [facility] [address] [place] [address] documented as of this encounter Visit Diagnoses Not on filedocumented in this encounter Care Teams Motorcycle Tester Relationship Specialty Start Date End Date Marly Kumar, DUNG [address] [place] [address] PCP - General Nurse Practitioner 09/22/24 documented as of this encounter
--- OUTSIDE RECORDS SUMMARY | 2025-07-06 09:50 | XMS_ITS | Encounter Summary ---
Author Organization Healthcare Address [address] [place] [address] Care Team Providers Care Rn Diabetes Educator Name Role Phone Jessie Payne INTELLECTUAL PROPERTY LEGAL ASSISTANT Unavailable [phone] Marly Kumar INTELLECTUAL PROPERTY LEGAL ASSISTANT Primary Care Provider [phone] Encounter Details Date Type Department Care Team (Latest Contact Info) Description 06/30/2025 Travel Social History Tobacco Use Types Packs/Day [...] drink first t zander in the morning (EYE-PUNCH CARD OPERATOR) to steady your nerves or to [...] of Assessment Author Yes 08/08/2023 5:39 PM Kevin Schmidt RN * Over the past 2 weeks, how often have you been bothered by any of the following problems? Question Answer Date of Assessment Author Little interest or pleasure in doing things Not at all 06/30/2025 10:56 AM EDT Adela Diamond Feeling down, depressed, or hopeless Not at all 06/30/2025 10:56 AM EDT Adela Giraldo Patient Health Questionnaire-2 Score 0 06/30/2025 10:56 AM EDT Adela Khan * Question Answer Date of Assessment Author Trouble falling or staying asleep, or sleeping too much Not at all 06/30/2025 10:56 AM EDT Adela Alvarado Feeling tired or having little energy Not at all 06/30/2025 10:56 AM SEANT Adela Giraldo Poor appetite or overeating Not at all 06/30/2025 10 :56 AM SEANT Adela Cazares Feeling bad about yourself - or that you are a failure or have let yourself or your family down Not at all 06/30/2025 10:56 AM EDT Adela Giraldo Trouble concentrating on things, such as reading the newspaper or watching television Not at all 06/30/2025 10:56 AM EDT Adela Giraldo Moving or speaking so slowly that other [...] Not difficult at all 06/30/2025 10:56 AM SEANT Adela Cazares * Question Answer Date of Assessment Author 1. Wish to be (Past 1 Month) No 06/30/2025 10:56 AM Adela Eid 2. Non-Specific Active Suicidal Thoughts (Past 1 Month) No 06/30/2025 10:56 AM Adela Eid 6. Suicidal Behavior (Lifetime) No 06/30/2025 10:56 [...] [facility] [address] [place] [address] Freedom Henson, [address] [place] [address] documented as of this encounter Visit Diagnoses [...] documented as of this encounter Care Teams Rn Diabetes Educator Relationship Specialty Start Date End Date Marly Kumar APRN [address] [place] [address] PCP - General 06/09/25 Jessie Payne APRN [address] [place] [address] 08/07/23 documented as of this encounter
--- OUTSIDE RECORDS SUMMARY | 2025-07-06 09:51 | XMS_ITS | Clinical Summary ---
Author Organization [facility] Address [address] [place] [address] Care Team Providers Care Paving Stone Installer Name Role Phone Jessie Payne HOG SCALDER Unavailable [phone] José Marly Nancy HOG SCALDER Primary Care Provider [phone] Allergies Active Allergy Reactions Criticality Noted Date Comments Tamsulosin Other - please docum ent in the comment field Low 08/08/2023 Sick to stomach Penicillins Hives Medium 08/07/2023 Sulfa Drugs Other - please docum ent in the comment field Low 08/08/2023 Sick to stomach Medications acetaminophen (Tylenol Extra Strength) 500 MG tablet Take 1-2 tablets every 6 hours as needed for pain or fever 5 Active aspirin 81 MG EC tablet Take 1 tablet by mouth 1 time each day. Active atorvastatin (Lipitor) 40 MG tablet Take 1 tablet by mouth nightly. Active azithromycin (Zithromax) 250 MG tablet TAKE 2 TABLETS BY MOUTH ON DAY 1, THEN TAKE 1 TABLET DAILY ON DAYS 2-5 5 Active benzonatate (Tessalon) 200 MG capsule Take 1 capsule by mouth 3 times a day as needed. 5 Active bisoprolol (Zebeta) 5 MG tablet Take 1 tablet by mouth 1 time each day. 5 Active Calcium Carb-Cholecalcifer ol 600-10 MG-MCG tablet Take 1 tablet by mouth daily. 5 Active divalproex (Depakote) [address] tablet Take 1 tablet by mouth 2 times a day. Active doxycycline (Vibramycin) 100 MG capsule Take 1 capsule by mouth 2 times a day. 5 Active furosemide (Lasix) 40 MG tablet Take 1 tablet by mouth twice a day. 5 Active fenofibrate (Tricor) 145 MG tablet Take 1 tablet by mouth 1 time each day. Active hydrOXYzine HCl (Atarax) 25 MG tablet Take 1 tablet by mouth every 6 hours as needed. Active lactulose (Chronulac) 10 GM/15ML oral solution Take 15 mL by mouth 2 times a day. 5 Active levETIRAcetam (Keppra) 1000 MG tablet Take 1 tablet by mouth twice a day. Active levoFLOXacin (Levaquin) 750 MG tablet Take 250 mg by mouth daily. 5 Active magnesium oxide (Mag-Ox) 400 MG tablet Take 1 tablet by mouth 1 time each day. 4 Active methylPREDNISolone (Medrol Dospak) 4 MG tablets Take 1 tablet by mouth. 5 Active metoclopramide (Reglan) 5 MG tablet Take 1 tablet by mouth 4 times a day. Active nitroglycerin (Nitrostat) 0.[address] 1 tablet under the tongue every 5 minutes as needed for chest pain. 5 Active nystatin (Mycostatin) cream Apply topically as needed. 5 Active omeprazole (PriLOSEC) [address] capsule Take 1 capsule by mouth every morning. Active ondansetron ODT (Zofran-ODT) 8 MG disintegrating tablet Dissolve 1 tablet on the tongue every 8 hours as needed for nausea or vomiting. Active predniSONE (Deltasone) 50 MG tablet Take 1 tablet by mouth daily. 5 Active tiZANidine (Zanaflex) 4 MG tablet Take 1 tablet by mouth every 6 hours as needed for muscle spasms. 4 Active Active Problems Problem Noted Date Diagnosed Date Bilateral carpal tunnel syndrome 06/30/2025 Numbness and tingling 06/30/2025 ABLA (acute blood loss anemia) 08/08/2023 Overview [...] Encounters Date Type Department Care Team Description 06/30/2025 11:00 AM EDT Procedure Visit [facility] at [facility] [address] [place] [address] Freedom Henson, Bilateral carpal tunnel syndrome (Primary Dx); Numbness and tingling 06/30/2025 Travel 06/02/2025 Community [facility] [address] [place] [address] Cynthia Garay MD Numbness (Primary Dx); Numbness [...] drink first t zander in the morning (EYE-AUTOMOTIVE PARTS INTERPRETER) to steady your nerves or to get [...] Pulse 76 06/30/2025 10:56 AM EDT Temperature 36.9 C (98.5 F) 08/08/2023 2:50 PM EDT Respiratory Rate 17 08/08/2023 2:50 PM EDT Oxygen Saturation 98% 06/30/2025 10:56 AM EDT Inhaled Oxygen Concentration - - Weight 67.1 kg (148 lb) 06/30/2025 10:56 AM EDT Height 152.4 cm (5') 06/30/2025 10:56 AM EDT Body Mass Index 28.9 06/30/2025 10:56 AM EDT Plan of Treatment Upcoming Encounters Date Type Department Care Team (Late st Contact Info) Description 07/11/2025 2:30 PM EDT Procedure Visit [facility] [address] [place] [address] Freedom Henson, [address] [place] [address] Health Maintenance Due Date Last Done Comments [facility]-Bone Density Scan 1953 [facility]-Hepatitis C Screening 1953 [facility]-Medicare Annual Wellness (AWV) 1955 [facility]-Infant/Child/Adol SDOH Screenings 1953 [facility]- SDOH Screenings 1971 [facility]-Adult SDOH Screenings 1971 CT Colonography 1998 Colonoscopy 1998 FIT-DNA 1998 FIT 1998 FOBT 1998 Sigmoidoscopy 1998 [facility]-Colorectal Cancer Screening 1998 [facility]-Breast Cancer Screening 2003 [id number] Vaccine (4 - 2024- season) 2025 09/09/2021, 12/05/2020, 11/15/2020 [facility]-Influenza Vaccine (#1) 07/03/202509/08, 08/18/2022, 08/11/2014, Additional history exists [facility]-Depression Screening 06/30/2026 06/30/2025, 06/03 [facility]-DTaP,Tdap,and Td Vaccines (3 - Td or Tdap) 05/10/2035 05/10/2025, 08/07/2023 [facility]-Pneumococcal Vaccine: 50+ Years Completed 05/17/2024 [facility]-RSV Vaccine: 60+ Years or Completed 09/08/2024 [facility]-Zoster Vaccines Completed 12/28/2024, [facility]-Obesity Intervention Completed 06/30/2025, 08/02 HPV Vaccines Aged Out No longer eligi [...] on patient's age to complete this topic Procedures Procedure Name Priority Date/Time Associated Diagnosis Comments EMG / NERVE CONDUCTION STUDY Routine 06/30/2025 11:00 AM EDT Numbness and tingling Bilateral carpal tunnel syndrome from Last 3 Months Results * EMG / NERVE CONDUCTION STUDY [...] yes Risks discussed: Bleeding, infection and pain Tiona protocol: Procedure explained and questions answered to [...] Garay MD NEUROLOGY ORDERABLES Final Resu lt from Last 3 Months Insurance MEDICAID [facility] MEDICAID OUT OF STATE MEDICARE MEDICAID-[place] Advance Directives * Full Code (Latest Code Status on File) Date Activated Date Inactivated Comments 08/07/2023 11:31 PM 08/08/2023 9:21 PM Question Answer Comments Patient has decision-making capacity? Yes Care Teams Paving Stone Installer Relationship Specialty Start Date End Date Marly Kumar APRN [address] [place] [address] PCP - General 06/09/25 Jessie Payne APRN [address] [place] [address] 08/07/23
--- OUTSIDE RECORDS SUMMARY | 2025-07-06 09:51 | XMS_ITS | Encounter Summary ---
Author Organization [facility] Address [address] [place] [address] Care Team Providers Care Community Liaison Officer Name Role Phone Marly Kumar SHAKIRA Primary Care Provider [phone] Reason for Visit * Reason Onset Date Comments Kimberley BARCLAY - SCHEDULING REQUEST 04/24/2025 Encounter Details Date Type Department Care Team (Late st Contact Info) Description 04/24/2025 Telephone [facility] [address] [place] [address] Sarah Barclay APRN [address] [place] [address] Kimberley BARCLAY - SCHEDULING REQUEST Social [...] Perkins Relationship: Self Best call back number: [phone] What is the best time to reach you: ANY Who are you requesting to speak with (clinical staff, provider, specific staff member): NIGHT ORDER SELECTOR What was the call regarding: PT HAD TO CANCEL DEVICE CHECK AND F/U 6..25. PLEASE CALL PT TO SCHEDULE NEXT DEVICE CHECK/FU. documented in this encounter Plan of Treatment Upcoming Encounters Date Type Department Care Team (Late st Contact Info) Description 08/16/2025 2:45 PM EDT Clinical Support No Requirements [facility] [address] [place] [address] [place] [address] 08/16/2025 3:00 PM EDT Office Visit [facility] [address] [place] [address] [place] [address] Kailey Porras APRN [address] [place] [address] documented as of this encounter Visit Diagnoses Not on filedocumented in this encounter Care Teams Community Liaison Officer Relationship Specialty Start Date End Date Marly Kumar APRN [facility] [place] [id number] PCP - General Family Medicine 07/06/24 documented as of this encounter
--- OUTSIDE RECORDS SUMMARY | 2025-07-06 09:51 | XMS_ITS | Encounter Summary ---
Author Organization [facility] Address [address] [place] [address] Care Team Providers Care Sports Administrator Name Role Phone Marly Kumar SHAKIRA Primary Care Provider [phone] Encounter Details Date Type Department Care Team [...] [place] [address] Kailey Porras APRN [address] [place] [address] documented as of this encounter Visit Diagnoses Not on filedocumented in this encounter Care Teams Sports Administrator Relationship Specialty Start Date End Date Marly Kumar APRN [facility] [place] [address] PCP - General Family Medicine 07/06/24 documented as of this encounter
[2025-07-06] MEDS: ONDANSETRON 4MG/2ML VIAL 4 MG IV (09:58)
[2025-07-06 10:05] LABS: Hematocrit 42.6 % (37.0-47.0); Hemoglobin 13.6 g/dL (12.2-16.2); Immature Granulocytes % 0.2 %; Mean Corpuscular HGB Conc 31.9 g/dL (31.8-35.4); Mean Corpuscular Hemoglobin 29.8 pg (27.0-31.2); Mean Corpuscular Volume 93.4 fl (81-99); Nucleated Red Blood Cells % 0 %; Platelet Count 204 K/mm3 (142-424); Red Blood Count 4.56 M/mm3 (4.20-5.40); Red Cell Distribution Width-SD 43.2 fL; White Blood Count 4.8 K/mm3 (4.8-10.8)
[2025-07-06 10:08] LABS: Chloride 107 mmol/L (98-107)
[2025-07-06 10:09] LABS: Albumin Level 4.7 g/dl (3.5-5.0); Potassium 3.8 mmoL/L (3.5-5.1); Sodium 142 mmol/L (136-145)
[2025-07-06 10:10] VITALS: BP 136/70; PULSE 61; O2SAT 98
[2025-07-06 10:11] LABS: Blood Urea Nitrogen 24 mg/dl (7-17); Creatinine Clearance Estimated 59 mL/min (50-200); Creatinine,Serum 0.90 mg/dl (0.52-1.04); Estimated Glomerular Filt Rate 62 ml/min (>60); GFR (African American) 75 ML/MIN (>60)
[2025-07-06 10:12] LABS: Alanine Aminotransferase 23 U/L (12-78); Albumin/Globulin Ratio 1.4 (1.1-1.8); Alkaline Phosphatase 77 U/L (38-126); Anion Gap 12.8 mEq/L (5-15); Aspartate Amino Transferase 46 U/L (14-36); Bilirubin,Total 0.5 mg/dl (0.2-1.3); Calcium 10.4 mg/dl (8.4-10.2); Carbon Dioxide 26 mmol/L (22.0-30.0); Globulin 3.4 g/dL (1.3-3.2); Glucose 90 mg/dl (74-100); Total Protein,Serum 8.1 g/dl (6.3-8.2)
[2025-07-06 10:24] LABS: Troponin I < 0.01 ng/ml (0.00-0.034)
--- NOTE | 2025-07-06 10:28 | HMH.EDGENADL ---
Discharge Plan Disposition Patient Disposition: Home, Self-Care Prescriptions Prescriptions: No Action quetiapine 25 mg tablet 12.5 mg PO HS Patient Comments: take ONE-HALF TABLET BY MOUTH every night FOR SLEEP nystatin 100,000 unit/gram cream 1 applic topical DAILY loratadine 10 mg tablet 10 mg PO DAILY Patient Comments: TAKE ONE TABLET BY MOUTH DAILY budesonide-formoterol 160-4.5 mcg/actuation HFA aerosol inhaler 2 puff inhalation BID fenofibrate nanocrystallized 145 mg tablet 145 mg PO DAILY Patient Comments: TAKE ONE TABLET BY MOUTH AT BEDTIME levothyroxine 88 mcg capsule 88 mcg PO DAILY Rx Instructions: Take 1 tablet by mouth daily on empty stomach before breakfast mirtazapine 30 mg tablet 30 mg PO HS Patient Comments: TAKE ONE TABLET BY MOUTH AT BEDTIME tizanidine 4 mg tablet 4 mg PO DAILY PRN (Reason: muscle spasms) Rx Instructions: Take 1/2 to 1 tablet every 6 hours as needed for pain levetiracetam [Keppra] 1,000 mg tablet 1,000 mg PO BID Qty: 180 3RF acetaminophen 500 MG tablet 1,000 mg PO BIDP PRN (Reason: pain) bisoprolol fumarate 2.5 mg tablet 2.5 mg PO DAILY furosemide 40 mg tablet 40 mg PO BID ropinirole 1 mg tablet 1 mg PO HS lactulose 10 gram/15 mL Solution 20 g PO DAILY 30 Days Qty: 1200 0RF omeprazole 40 capsule,delayed release(DR/EC) 40 mg PO DAILY atorvastatin 40 MG tablet 40 mg PO DAILY potassium chloride 20 MEQ tablet 20 meq PO BID aspirin 81 MG tablet,chewable 81 mg PO DAILY nitroglycerin 0.4 MG tablet, sublingual 0.4 mg sublingual Q5MINP PRN (Reason: Chest Pain) ondansetron 8 MG tablet,disintegrating 8 mg PO Q8HP PRN (Reason: Nausea) magnesium oxide 400 mg (241.3 mg magnesium) tablet 400 mg PO DAILY Referrals Follow up/Referrals: Marly Kumar APRN [Primary Care Provider, Medical] - See instructions Activity Restrictions/Add. Instructions Additional Instructions/Restrictions: No evidence of emergent medical condition today your defibrillator interrogation was unremarkable. Labs otherwise unremarkable no evidence of a heart attack or any other concerning cardiovascular abnormality. Most likely today after the nausea and vomiting episode you had a neurocardiogenic/vasovagal syncopal episode which is where the nerve became overactive lowered your blood pressure and heart rate and because you to pass out. Anytime you pass out with your history of underlying heart disorders I do recommend you follow-up closely with your installation and repair technician. Return with any chest pain shortness of breath or other symptoms that you are concerned about. Clinical Impressions Clinical Impression: Syncope, vasovagal Instructions Patient Instructions: DI for Syncope in Adults (Fainting), DI for Syncope in Children (Fainting) Print Language Print Language: [place]guill[place] Discharge ED Provider: Mitra Shah General Adult HPI General Chief complaint: Syncope Stated complaint: AO-Loss of consciousness-Fall 09 Time Seen by Provider: 07/06/25 09:31 Mode of Arrival: Wheelchair Source of Information: Patient and Relative Description of Symptoms (Recalled from ER Triage Doc. by RN): pt had a syncopal episode this morning and fell. states she was not feeling bad or anything just passed out. denies hitting her head History of Present Illness HPI narrative: Patient is a 69-year-old female with a history of heart failure who has a pacemaker/defibrillator [employer] presents today with syncopal episode. She got nauseated and threw up 1 time and continued to have some nausea and passed out. Denies any shortness of breath or chest pain denies any fevers or chills or any other infectious symptoms such as cough runny nose etc. Denies any head injuries or injuries from the fall. Other than some mild nausea states she is at her baseline level of health. Related Data Home Medications ?Medication ?Instructions ?Recorded ?Confirmed atorvastatin 40 mg tablet 40 mg PO DAILY 04/23/19 05/16/25 omeprazole 40 mg capsule,delayed 40 mg PO DAILY 04/23/19 05/16/25 release aspirin 81 mg chewable tablet 81 mg PO DAILY 04/24/19 05/16/25 nitroglycerin 0.4 mg sublingual 0.4 mg sublingual Q5MINP PRN Chest 04/24/19 05/16/25 tablet Pain ondansetron 8 mg disintegrating 8 mg PO Q8HP PRN Nausea 04/24/19 05/16/25 tablet potassium chloride 20 mEq 20 meq PO BID POTASSIUM SUPPLEMENT 04/24/19 05/16/25 tablet,extended release(part/cryst) acetaminophen 500 mg tablet 1,000 mg PO BIDP PRN pain 08/08/19 05/16/25 budesonide-formoterol HFA 160 2 puff inhalation BID 01/25/25 05/16/25 mcg-4.5 mcg/actuation aerosol inhaler fenofibrate nanocrystallized 145 145 mg PO DAILY 01/25/25 05/16/25 mg tablet levothyroxine 88 mcg capsule 88 mcg PO DAILY 01/25/25 05/16/25 loratadine 10 mg tablet 10 mg PO DAILY 01/25/25 05/16/25 magnesium oxide 400 mg (241.3 mg 400 mg PO DAILY 01/25/25 05/16/25 magnesium) tablet mirtazapine 30 mg tablet 30 mg PO HS 01/25/25 05/16/25 nystatin 100,000 unit/gram topical 1 applic topical DAILY 01/25/25 05/16/25 cream quetiapine 25 mg tablet 12.5 mg PO HS 01/25/25 04/27/25 tizanidine 4 mg tablet 4 mg PO DAILY PRN muscle spasms 01/25/25 05/16/25 bisoprolol fumarate 2.5 mg tablet 2.5 mg PO DAILY 04/26/25 05/16/25 furosemide 40 mg tablet 40 mg PO BID 04/27/25 05/16/25 ropinirole 1 mg tablet 1 mg PO HS 04/27/25 05/16/25 Previous Rx's ?Medication ?Instructions ?Recorded lactulose 10 gram/15 mL oral 20 g (30 mL) PO DAILY 30 days 04/28/25 solution #1,200 mL levetiracetam 1,000 mg tablet 1,000 mg PO BID #180 tabs 05/16/25 (Keppra) Allergies Allergy/AdvReac Type Severity Reaction Status Date / Time alendronate sodium (From Allergy Unknown I-HIVES Verified 05/16/25 09:52 FOSAMAX) Penicillins (PENICILLINS) Allergy Unknown I-HIVES Verified 05/16/25 09:52 Sulfa (Sulfonamide Allergy Unknown I-HIVES Verified 05/16/25 09:52 Antibiotics) (SULFA (SULFONAMIDE ANTIBIOTICS)) gabapentin Allergy Verified 05/16/25 09:52 [facility] Disclaimer: The information contained in this section may have been updated after the patient was seen, as this information can be updated by other users. Medical History Seizure Atypical seizures cannot exclude psychogenic etiology, PNES. History of pacemaker Arthritis Seizures Renal insufficiency Osteoporosis Heart attack Migraine Hyperlipemia Depression Dementia CHF (congestive heart failure) Afib Surgical History Hx of hysterectomy Hx of lumpectomy Hx of cholecystectomy Family History Other Diabetes Hyperlipidemia Hypertension Social History Smoking Status: Never smoker second hand exposure: No alcohol intake: never substance use type: other current occupational status: disabled Travel in the last 8 weeks?: None household members: other housing: skilled nursing current occupational exposures/hazards: No caffeine: Yes Have you lived/traveled outside US in past 30 days?: No Contact w/someone who lives/traveled outside US past 30 days?: No Exposure to someone with infectious disease in past 14 days?: No Do you have a fever (greater than 100.4 F or 38 C)?: No Have you tested positive for COVID-19?: No Exposed to someone with COVID-19 in past 14 days?: No Do you have a sore throat?: No Do you have a cough?: No Do you have any weakness?: No Do you have any diarrhea?: No Are you experiencing any unusual bleeding?: No Do you have any muscle aches/pain?: No Do you have any abdominal pain?: No Are you experiencing loss of taste or smell?: No Other Medical History Have you received the Flu Vaccine for this season: No Have you received the Pneumonia Vaccine: No ROS Obtained: Yes All systems reviewed & no additional complaints except as documented Physical Exam General General appearance: alert and in no apparent distress Respiratory Respiratory exam: Present normal lung sounds bilaterally; Absent respiratory distress Cardiovascular Cardiovascular exam: Present regular rate and normal rhythm Abdominal Exam Abdominal exam: Present soft; Absent distention or tenderness Neurological Exam Neurological exam: Present alert and oriented X3 Medical Decision Making Medical Records Screening: Per USPSTF and CDC recommendations, given the prevalence of disease in our region, it is our hospital?s policy to screen for HIV and viral Hepatitis for all patients aged 18 and over and those with ongoing risk factors. Marc Inquiry Pt receiving controlled substance: No Vital Signs: 07/06/25 09:31 07/06/25 09:34 07/06/25 10:10 Temperature 98.1 F Temperature Source Oral Pulse Rate 61 61 Pulse Rate [Right] 62 Respiratory Rate 18 18 Blood Pressure 136/70 136/70 Blood Pressure [Right Arm] 154/63 H Blood Pressure Mean [Right Arm] 93 02 Sat by Pulse Oximetry 97 97 98 Oxygen Delivery Method Room Air Room Air Lab Data Lab results reviewed: Yes I reviewed the patient's lab results. Lab Results 07/06/25 09:40: WBC 4.8, RBC 4.56, Hgb 13.6, Hct 42.6, MCV 93.4, MCH 29.8, MCHC 31.9, RDW 12.7, Plt Count 204, MPV 11.5 H, Neut % (Auto) 41.5, Lymph % (Auto) 46.5, [place] % (Auto) 7.7, Eos % (Auto) 3.5, Baso % (Auto) 0.6, Neut # (Auto) 2.0, Lymph # (Auto) 2.2, [place] # (Auto) 0.4, Eos # (Auto) 0.2, Baso # (Auto) 0.0, Sodium 142, Potassium 3.8, Chloride 107, Carbon Dioxide 26, Anion Gap 12.8, BUN 24 H, Creatinine 0.90, Estimated Creat Clear 59, Estimated GFR 62, Est GFR ( Amer) 75, Glucose 90, Calcium 10.4 H, Magnesium 1.6, Total Bilirubin 0.5, AST 46 H, ALT 23, Alkaline Phosphatase 77, Troponin I < 0.01, Total Protein 8.1, Albumin 4.7, Globulin 3.4 H, Albumin/Globulin Ratio 1.4, TSH 2.18 07/06/25 09:40 07/06/25 09:40 Orders (Tests/Meds): ED MEDICATIONS Discontinued Medications Generic Name Dose Route Start Last Admin Trade Name Freq PRN Reason Stop Dose Admin Ondansetron HCl 4 mg 07/06/25 09:44 07/06/25 09:58 Ondansetron 4mg/2ml Vial IV 07/06/25 09:45 4 mg ONCE ONE Administration ORDERS Category Date Time Status CXR --portable [XR chest portable] Stat Exams 07/06/25 09:43 Completed BNP [NT Pro Brain Natriuretic Pep.] Stat Lab 07/06/25 09:40 Results CBC w/Auto Diff [Complete Blood Count Auto Diff] Stat Lab 07/06/25 09:40 Completed CMP [Comprehensive Metabolic Panel] Stat Lab 07/06/25 09:40 Completed Magnesium Stat Lab 07/06/25 09:40 Results TSH [Thyroid Stimulating Hormone] Stat Lab 07/06/25 09:40 Completed Trop I [Troponin I] Stat Lab 07/06/25 09:40 Completed Troponin I Q3H Lab 07/06/25 12:45 Ordered Troponin I Q3H Lab 07/06/25 15:45 Ordered ECG Data Tracing #1: I reviewed this ECG and interpreted as documented below: Ventricular rate of 68 sinus rhythm with a sinus arrhythmia but no significant ventricular ectopy or any other significant conduction abnormalities no ischemic changes or abnormal axis Medical Decision Narrative: Patient with above history and physical presents today with a syncopal episode after nausea vomiting episode likely vasovagal in nature. However given the fact that she has heart failure and has defibrillator we got her device interrogated. Patient is atrial paced 17% of the time ventricularly paced less than 1% of the time there were no atrial tachycardia or atrial fibrillation episodes with 0% burden specifically there were no episodes of V. tach or V-fib. Therefore an arrhythmia is incredibly unlikely to be the cause of her syncopal episode today. Favor neurocardiogenic or vasovagal syncope. She appears very stable from a hemodynamic standpoint and also a neurologic standpoint at the moment has no other signs or symptoms of any other cardiovascular emergency. Checking her electrolytes to optimize them and also giving her some nausea medication and will reassess. Reassessment 1045 labs unremarkable pacemaker defibrillator interrogation returned labs otherwise unremarkable nothing significant. No evidence of any acute coronary syndrome patient had no ischemic symptoms today. Will not get serial troponins. No evidence of decompensated heart failure hemodynamically she has remained stable she is much improved from a symptomatic standpoint after the Zofran she states she has Zofran at home to continue to take. Working diagnosis is vasovagal or neurocardiogenic syncope patient was discharged in stable condition with advised to follow-up with Dr. Twila Das Critical Care Critical Care Time Critical Care Time: No
[2025-07-06 10:32] VITALS: BP 117/91; PULSE 59; RESP 22; O2SAT 96
[2025-07-06 10:42] LABS: Magnesium 1.6 mg/dl (1.6-2.3)
[2025-07-06 10:43] LABS: Thyroid Stimulating Hormone 2.18 uIU/mL (0.465-4.68)
[2025-07-06 10:52] LABS: NT Pro Brain Natriuretic Pep. 234 pg/mL (0-125)
[2025-07-06 10:55] VITALS: BP 117/91; PULSE 60; RESP 18; TEMP 36.7; O2SAT 98
== END 2025-07-06 11:05 | disposition home or self-care (01) ==
PROVIDERS: Emergency Provider Student in an Organized Health Care Education/Training Program; PCP Nurse Practitioner Family
DX: R55 Syncope and collapse (principal); I10 Essential (primary) hypertension; G47.33 Obstructive sleep apnea (adult) (pediatric)
CPT/HCPCS: 71045; 80053; 83735; 83880; 84443; 84484; 85025; 93005; 96374; 99284; J2405

== ENCOUNTER 2025-08-23 10:39 | Inpatient (IN) | payer MEDICARE, MEDICAID, SELFPAY ==
--- OUTSIDE RECORDS SUMMARY | 2025-06-30 11:00 | XMS_ITS | Encounter Summary ---
Author Organization [facility] Address [address] [place] [address] Care Team Providers Care Book Sewing Machine Operator Name Role Phone PayneJessie Samantha ROSENBERG Unavailable [phone] Marly Kumar PRESS PULLER Primary Care Provider [phone] Reason for Visit * Consultation (Routine) - Closed Specialty Diagnoses / Procedures Referred By Contact Referred To Contact Physical Medicine and Rehabilitation Diagnoses Numbness Numbness and tingling Carpal tunnel syndrome, bilateral Cynthia Garay MD [address] [facility] [address] [place] [address] Phone: tel:[phone] fax:[phone] [facility] at [facility] [address] [place] [place] [address] Phone: tel: fax: Referral ID Status Reason Start Date Expiration Date V isits Requested Visits Authorized [id number] Closed Specialty Services Required 06/02/2025 12/02/2026 1 1 Encounter Details Date Type Department Care Team (Late st Contact Info) Description 06/30/2025 11:00 AM EDT Procedure Visit [facility] at [facility] [address] [place] [address] Freedom Henson DO [address] [place] [address] Bilateral carpal tunnel syndrome (Primary Dx); Numbness and tingling Social History Tobacco Use Types Packs/Day Years Used Date Smoking Tobacco: Former Cigarettes Smokeless Tobacco: Never Tobacco Cessation:Counseling Given: Not Answered Alcohol Use Standard Drinks/Week Comments Not Currently 0 (1 standard drink = 0.6 oz pur e alcohol) PHQ-2 Answer Date Recorded Patient Health Questionnaire-2 Score 0 06/30/2025 PHQ-9 Answer Date Recorded Patient Health Questionnaire-9 Score 0 06/30/2025 CAGE ASSESSMENT Answer Date Recorded Cage unable [...] drink first t zander in the morning (EYE-LOAN ASSOCIATE) to steady your nerves or to get [...] Sign Reading Time Taken Comments Blood Pressure 193/102 06/30/2025 12:51 PM EDT Pulse 76 06/30/2025 10:56 AM EDT Temperature - - Respiratory Rate - - Oxygen Saturation 98% 06/30/2025 10:56 AM EDT Inhaled Oxygen Concentration - - Weight 67.1 kg (148 lb) 06/30/2025 10:56 AM EDT Height 152.4 cm (5') 06/30/2025 10:56 AM EDT Body Mass Index 28.9 06/30/2025 10:56 AM EDT documented in this encounter Functional [...] pleasure in doing things Not at all 06/30/2025 10:56 AM Adela Ayala Feeling down, depressed, or hopeless Not at all 06/30/2025 10:56 AM SEANT Adela Giraldo Patient Health Questionnaire-2 Score 0 06/30/2025 10:56 AM EDT Adela Khan * Question Answer Date of Assessment Author Trouble falling or staying asleep, or sleeping too much Not at all 06/30/2025 10:56 AM SEANT Adela Alvarado Feeling tired or having little energy Not at all 06/30/2025 10:56 AM Adela Eid Poor appetite or overeating Not at all 06/30/2025 10 :56 AM SEANT Adela Cazares Feeling bad about yourself - or that you are a failure or have let yourself or your family down Not at all 06/30/2025 10:56 AM SEANT Adela Giraldo Trouble concentrating on things, such as reading the newspaper or watching television Not at all 06/30/2025 10:56 AM Adela Eid Moving or speaking so slowly that other people could have noticed? Or the opposite - being so fidgety or restless that you have been moving around a lot more than usual. Not at all 06/30/2025 10:56 AM EDT Adela Giraldo Thoughts that you would be better off or hurting yourself in some way Not at all 06/30/2025 10:56 AM EDT Adela Banerjee Patient Health Questionnaire-9 Score 0 06/30/2025 10:56 AM EDT Adela Khan * Calculated C-SSRS Risk Score (Lifetime/Recent) Answer Date of Assessment Author No Risk Indicated 06/30/2025 10:56 AM EDT Adela James * How difficult have these problems made it for you to do your work, take care of things at home, or get along with other people? Answer Date of Assessment Author Not difficult at all 06/30/2025 10:56 AM EDT Adela Ivey * Question Answer Date of Assessment Author 1. Wish to be (Past 1 Month) No 06/30/2025 10:56 AM EDT Adela Giraldo 2. Non-Specific Active Suicidal Thoughts (Past 1 Month) No 06/30/2025 10:56 AM EDT Adela Giraldo 6. Suicidal Behavior (Lifetime) No 06/30/2025 10:56 AM EDT Adela Giraldo documented as of this encounter Mental Status * Because of a physical, mental, or emotional condition, do you have serious difficulty concentrating, remembering, or making decisions? (5 years old or older) Answer Entry Date Author No 08/08/2023 5:39 PM EDT Kevin Isidro RN documented in this encounter Miscellaneous Notes * Procedures - Freedom Henson DO - 06/30/2025 11:00 AM EDTAssociated Order(s): EMG / NCV Pre-Procedure Diagnose(s): Numbness and tingling; Bilateral carpal tunnel syndrome Post-Procedure Diagnose(s): Numbness and tingling; Bilateral carpal tunnel syndrome Images from the original note were not included. Patient ID: Lorna Perkins is a 69 y.o. female. Encounter Diagnoses Name Primary? Bilateral carpal tunnel syndrome Yes Numbness and tingling EMG / NCV Date/Time: 06/30/2025 11:00 AM Performed by: Freedom Henson DO Authorized by: Cynthia Garay MD Consent: Consent obtained: Written and verbal Consent given by: Patient Risks, benefits, and alternatives were discussed: yes Risks discussed: Bleeding, infection and pain [place] protocol: Procedure explained and questions answered to patient or proxy's satisfaction: yes Immediately prior to procedure, a time out was called: yes Patient identity confirmed: Verbally with patient Indications: Indications: Paresthesias Pre-procedure details: Procedure prep: alcohol swap prior to insertion of EMG electrode. Sedation: Sedation type: None Anesthesia: Anesthesia method: None Post-procedure details: Procedure completion: Tolerated well, no immediate complications [facility] Department of Physical [place] [address] Test Date: 06/30/2025 Patient: Lorna Perkins : 1955 Physician: Freedom Henson DO Sex: Male Height: ' Ref Phys: Cynthia Garay MD ID#: [id number] Weight: lbs. Resident: Patient Complaints: b/l hand numbness and tingling Medications: 81mg ASA Patient History / Exam: Patient is 69-year-old female who was referred by Dr. Garay due to concerns for bilateral and numbness and tingling in upper extremities. She has a history of a left cubital tunnel release. She has ahistory of hypothyroidism and ovarian cancer but no chemo or radiation exposure. She denies diabetes or vitamin deficiencies were history of heavy alcohol use. NCS & EMG Findings: The left median motor study revealed normal onset latency, normal amplitudes, and normal conductionvelocity (Elbow-Wrist). The right median motor study revealed normal onset latency, normal amplitudes, and normal conduction velocity (Elbow-Wrist). The left ulnar motor study revealed normal onset latency, normal amplitudes, normal conduction velocity (B Elbow-Wrist), and normal conduction velocity (A Elbow-B Elbow). The right ulnar motor study revealed normal onset latency, normal amplitudes, normal conduction velocity (B Elbow-Wrist), and normal conduction velocity (A Elbow-B Elbow). The left dorsal cutaneous sensory study revealed prolonged peak latency and normal amplitude. The left ulnar sensory study revealed prolonged peak latency and normal amplitude. The right ulnar sensory study revealed prolonged peak latency and normal amplitude. The right dorsal cutaneous sensory study revealed normal peak latency and normal amplitude. The left median (across palm) sensory study revealed normal peak latency (Wrist), normal amplitude,and normal peak latency (Palm). The right median (across palm) sensory study revealed prolonged peak latency (Wrist), reduced amplitude, and prolonged peak latency (Palm). The left median/radial (dig I) comparison study revealed normal peak latency (Median), normal amplitude (Median), normal peak latency (Radial), normal amplitude (Radial), and abnormal peak latency difference (Median-Radial). The right median/radial (dig I) comparison study revealed prolonged peak latency (Median), normal amplitude (Median), normal peak latency (Radial), normal amplitude (Radial), and abnormal peak latency difference (Median-Radial). Concentric needle evaluation of the right first dorsal interosseous muscle showed slightly increased polyphasic potentials. Concentric EMG evaluation of the right ADM, APB, EIP muscles revealed normal insertional activity, no abnormal spontaneous activity, and the voluntary MUAPS were within normal limits. I was present for and performed the entire procedure, interpretation of the results and completion of the report. Physicians performed all the NCS. Impression: 1. 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 2. Electrodiagnostic evidence of a mild left median neuropathy best located at the wrist. 3. Electrodiagnostic evidence of a left ulnar sensory neuropathy proximal to the division of the dorsal cutaneous nerve. 4. Electrodiagnostic evidence of a right ulnar sensory neuropathy. 5. No electrodiagnostic evidence of a ulnar neuropathy at the elbow for either side. 6. No electrodiagnostic evidence of a left C8-T1 motor radiculopathy, no conclusive electrodiagnostic evidence of a right C7-T1 motor radiculopathy. Polyphasia was seen in the right FDI muscle however undetermined significance of this. Freedom Henson, DO Nerve Conduction Studies Anti Sensory Summary Table Stim Site NR Peak (ms) Norm Peak (ms) P-T Amp (??V) Norm P-T Amp Site1 Site2 Delta-P (ms) Dist (cm)Ken (m/s) Norm Ken (m/s) NCV Left DorsCutan Anti Sensory (Dorsum 5th MC) 30.2 ??C Wrist 2.7 <2.6 20.6 >8.0 Wrist Dorsum 5th MC 2.7 10.0 37 NCV Right DorsCutan Anti Sensory (Dorsum 5th MC) 30.3 ??C Wrist 2.2 <2.6 13.9 >8.0 Wrist Dorsum 5th MC 2.2 10.0 45 NCV Left Median Acr Palm Anti Sensory (3rd Digit) 30.2 ??C Wrist 3.6 <3.7 59.3 >20 Wrist 3rd Digit 3.6 14.0 39 Palm 1.9 <1.9 76.4 Palm 3rd Digit 1.9 7.0 37 NCV Right Median Acr Palm Anti Sensory (3rd Digit) 30 ??C Wrist 5.7 <3.7 16.9 >20 Wrist 3rd Digit 5.7 14.0 25 Palm 2.5 <1.9 18.7 Palm 3rd Digit 2.5 7.0 28 NCV Left Ulnar Anti Sensory (5th Digit) 30.9 ??C Wrist 4.0 <3.7 30.8 >20 Wrist 5th Digit 4.0 14.0 35 NCV Right Ulnar Anti Sensory (5th Digit) 30 ??C Wrist 3.9 <3.7 37.1 >20 Wrist 5th Digit 3.9 14.0 36 Motor Summary Table Stim Site NR Onset (ms) Norm Onset (ms) O-P Amp (mV) Norm O-P Amp Site1 Site2 Delta-0 (ms) Dist (cm) Ken (m/s) Norm Ken (m/s) NCV Left Median Motor (Abd Poll Brev) 30.6 ??C Wrist 4.0 <4.3 6.7 >4 Elbow Wrist 3.4 19.0 56 >45 Elbow 7.4 7.9 NCV Right Median Motor (Abd Poll Brev) 30 ??C Wrist 4.2 <4.3 11.5 >4 Elbow Wrist 4.5 20.5 46 >45 Elbow 8.7 9.4 NCV Left Ulnar Motor (Abd Dig Minimi) 30.7 ??C Wrist 3.8 <4.3 9.6 >2 B Elbow Wrist 2.9 13.0 45 >45 B Elbow 6.7 9.6 A Elbow B Elbow 2.0 14.0 70 >45 A Elbow 8.7 10.1 NCV Right Ulnar Motor (Abd Dig Minimi) 30.9 ??C Wrist 3.3 <4.3 8.5 >2 B Elbow Wrist 2.5 14.0 56 >45 B Elbow 5.8 7.1 A Elbow B Elbow 2.1 14.0 67 >45 A Elbow 7.9 8.2 Comparison Summary Table Stim Site NR Peak (ms) Norm Peak (ms) P-T Amp (??V) Norm P-T Amp Site1 Site2 Delta-P (ms) Norm Delta (ms) NCV Left Median/Radial Dig I Comparison (Digit 1) 30.8 ??C Median 3.2 <3.2 21.8 >20 Median Radial 0.8 <0.4 Radial 2.4 <2.9 12.7 >5 NCV Right Median/Radial Dig I Comparison (Digit 1) 30.2 ??C Median 3.6 <3.2 21.2 >20 Median Radial 1.2 <0.4 Radial 2.4 <2.9 13.1 >5 EMG Side Muscle Nerve Root Ins Act Fibs Psw Other Amp Dur Poly Recrt Comment Left Abd Poll Brev Median C8-T1 Nml 0 0 Nml Nml 0 Nml Left 1stDorInt Ulnar C8-T1 Nml 0 0 Nml Nml 0 Nml Right Abd Poll Brev Median C8-T1 Nml 0 0 Nml Nml 0 Nml Right 1stDorInt Ulnar C8-T1 Nml 0 0 Nml Nml 1+ Nml Right FlexCarpiUln Ulnar C8,T1 Nml 0 0 Nml Nml 0 Nml Right ExtIndicis Radial (Post Int) C7-8 Nml 0 0 Nml Nml 0 Nml Right ABD Dig Min Ulnar C8-T1 Nml 0 0 Nml Nml 0 Nml Waveforms: documented in this encounter Plan of Treatment Not on file documented as of this encounter Procedures Procedure Name Priority Date/Time Associated Diagnosis Comments EMG / NERVE CONDUCTION STUDY Routine 06/30/2025 11:00 AM EDT Numbness and tingling Bilateral carpal tunnel syndrome documented in this encounter Results * EMG / NERVE CONDUCTION STUDY (06/30/2025 11:00 AM EDT) Anatomical Region Laterality Modality Other Narrative 06/30/2025 11:00 AM EDT Freedom Henson DO 06/30/2025 3:01 PM EMG / NCV Date/Time: 06/30/2025 11:00 AM Performed by: Freedom Henson DO Authorized by: Cynthia Garay MD Consent: Consent obtained: Written and verbal Consent given by: Patient Risks, benefits, and alternatives were discussed: yes Risks discussed: Bleeding, infection and pain [place] protocol: Procedure explained and questions answered to patient or proxy's satisfaction: yes Immediately prior to procedure, a time out was called: yes Patient identity confirmed: Verbally with patient Indications: Indications: Paresthesias Pre-procedure details: Procedure prep: alcohol swap prior to insertion of EMG electrode. Sedation: Sedation type: None Anesthesia: Anesthesia method: None Post-procedure details: Procedure completion: Tolerated well, no immediate complications Cynthia Garay MD NEUROLOGY ORDERABLES Final Resu lt documented in this encounter Visit Diagnoses Diagnosis Bilateral carpal tunnel syndrome- Primary Carpal tunnel syndrome Numbness and tingling Disturbance of skin sensation documented in this encounter Additional Health Concerns Assessment Noted Time PHQ-9 Depression Total Score: 0 06/30/20 10:56 AM EDT A fall risk assessment has been complete d for the patient 06/30/2025 11:05 AM EDT A Body Mass Index follow-up plan has been documented for the patient 06/30/2025 3:01 PM EDT documented as of this encounter Care Teams Book Sewing Machine Operator Relationship Specialty Start Date End Date Marly Kumar APRN [address] [place] [address] PCP - General 06/09/25 Jessie Payne APRN [address] [facility] [place] [address] 08/07/23 documented as of this encounter
--- OUTSIDE RECORDS SUMMARY | 2025-07-05 12:30 | XMS_ITS | Encounter Summary ---
Author Organization [facility] Address [address] [place] [address] Care Team Providers Care Night Assistant Name Role Phone Marly Kumar APRN Primary Care Provider [phone] Reason for Visit * Reason Comments Hypertension BP check Encounter Details Date Type Department Care Team (Late st Contact Info) Description 07/05/2025 12:30 PM EDT Clinical Support [facility] [address] [place] [address] Social History Tobacco Use Types Packs/Day [...] Care Team (Late st Contact Info) Description 09/11/2025 2:00 PM EST Office Visit [facility] [address] [place] [address] [place] [address] Nereida Ambrose APRN [address] [place] [address] 09/11/2025 2:00 PM EST Clinical Support No Requirements [facility] [address] [place] [address] [place] [address] documented as of this encounter Visit Diagnoses Not on filedocumented in this encounter Care Teams Night Assistant Relationship Specialty Start Date End Date Marly Kumar, SHAKIRA [facility] [place] [id number] PCP - General Family Medicine 07/06/24 documented as of this encounter
--- OUTSIDE RECORDS SUMMARY | 2025-07-11 14:30 | XMS_ITS | Encounter Summary ---
Author Organization Healthcare Address [address] [place] [address] Care Team Providers Care Business Resiliency Manager Name Role Phone Jessie Payne RESIDENTIAL FEE APPRAISER Unavailable [phone] José Marly Nancy RESIDENTIAL FEE APPRAISER Primary Care Provider [phone] Encounter Details Date Type Department Care Team (Late st Contact Info) Description 07/11/2025 2:30 PM EDT Procedure Visit Physical Medicine & Rehabilitation Clinic at [facility] [address] [place] [address] Freedom Henson, [address] [place] [address] Polyneuropathy (Primary Dx); Numbness and tingling Social History [...] drink first t zander in the morning (EYE-PATHOLOGY LABORATORY TECHNOLOGIST) to steady your nerves or to get [...] Sign Reading Time Taken Comments Blood Pressure 172/77 07/11/2025 4:04 PM EDT Pulse 61 07/11/2025 2:46 PM EDT Temperature - - Respiratory Rate - - Oxygen Saturation 97% 07/11/2025 2:46 PM EDT Inhaled Oxygen Concentration - - Weight 67.1 kg (148 lb) 07/11/2025 2:46 PM EDT Height 152.4 cm (5') 07/11/2025 2:46 PM EDT Body Mass Index 28.9 07/11/2025 2:46 PM EDT documented in this encounter Functional Status * Are you deaf or do you have serious difficulty hearing? Answer Date of Assessment Author No 08/08/2023 5:39 PM EDT Kevin Isidro RN * Are you blind or do you have serious difficulty seeing, even when wearing glasses? Answer Date of Assessment Author No 08/08/2023 5:39 PM EDT Kevin Isidro, TIM * Do you have serious difficulty walking or climbing stairs? Answer Date of Assessment Author No 08/08/2023 5:39 PM EDT Kevin Isidro RN * Do you have serious difficulty dressing or bathing? Answer Date of Assessment Author No 08/08/2023 5:39 PM EDT Kevin Isidro, TIM * Because of a physical, mental, or emotional condition, do you have serious difficulty doing errandsalone such as visiting the doctor? Answer Date of Assessment Author Yes 08/08/2023 5:39 PM EDT Kevin Isidro, TIM * Over the past 2 weeks, how [...] lot more than usual. Not at all 07/11/2025 2:47 PM EDT [...] encounter Miscellaneous Notes * Progress Notes - Freedom Henson DO - 07/11/2025 2:30 PM EDT Images from the original note were not included. Patient ID: Lorna Perkins is a 69 y.o. female. Encounter Diagnoses Name Primary? Polyneuropathy Yes Numbness and tingling Procedures Performed by: Freedom Henson DO Authorized by: Mraly Kumar NP Consent: Consent obtained: Written and verbal Consent given by: Patient Risks, benefits, and alternatives were discussed: yes Risks discussed: Bleeding, infection and pain [place] protocol: Procedure explained and questions answered to patient or proxy's satisfaction: yes Immediately prior to procedure, a time out was called: yes Patient identity confirmed: Verbally with patient Indications: Indications: Paresthesias Pre-procedure details: Procedure prep: alcohol swap prior to insertion of EMG electrode. Sedation: Sedation type: None Anesthesia: Anesthesia method: None Post-procedure details: Procedure completion: Tolerated well, no immediate complications [facility] Department of Physical Medicine [place] [address] Test Date: 07/11/2025 Patient: Lorna Perkins : 1955 Physician: Freedom Henson DO Sex: Male Height: ' Ref Phys: Marly Kumar NP ID#: [id number] Weight: lbs. Resident: Patient Complaints: b/l numbness & tingling in feet Medications: 81 mg ASA Patient History / Exam: Patient is 69-year-old female who was referred by Marly Kumar NP due to concerns for bilateral and numbness and tingling in upper extremities. She has a history of a left cubital tunnel release. She has a history of hypothyroidism and ovarian cancer but no chemo or radiation exposure. She denies diabetes or vitamin deficiencies were history of heavy alcohol use. NCS & EMG Findings: The left peroneal motor study revealed normal onset latency, normal amplitudes, normal conduction velocity (B Fib-Ankle), and normal conduction velocity (Poplt- B Fib). The right peroneal motor study revealed normal onset latency, normal amplitudes, normal conduction velocity (B Fib-Ankle), and normal conduction velocity (Poplt- B Fib). The left tibial motor study revealed normal onset latency, reduced amplitudes, and normal conduction velocity (Knee-Ankle). The right tibial motor study revealed normal onset latency, normal amplitudes, and normal conduction velocity (Knee-Ankle). The left superficial peroneal sensory study revealed normal peak latency and reduced amplitude. The right superficial peroneal sensory study revealed normal peak latency and reduced amplitude. The left sural sensory study revealed normal peak latency and reduced amplitude. The right sural sensory study revealed normal peak latency and reduced amplitude. All F Wave latencies were within normal limits. Concentric EMG evaluation of the left medial gastrocnemius, anterior tibialis, and vastus medialis muscles revealed normal insertional activity, no abnormal spontaneous activity and the voluntary MUAPs were within normal limits. Concentric EMG evaluation of the right tibialis anterior revealed normal insertional activity, no abnormal spontaneous activity and the voluntary MUAPs demonstrated some serrations. Unsure of significance. Concentric EMG evaluation of the right medial gastrocnemius, vastus medialis and peroneus longus muscles revealed normal insertional activity, no abnormal spontaneous activity and the voluntary MUAPswere within normal limits. I was present for the entire procedure, interpretation of the results and completion of the report.Physicians performed all the NCS. Impression: Electrodiagnostic evidence suggestive of but not conclusive for a length dependent sensorimotor polyneuropathy. Freedom Henson, DO Nerve Conduction Studies Anti Sensory Summary Table Stim Site NR Peak (ms) Norm Peak (ms) P-T Amp (??V) Norm P-T Amp Site1 Site2 Delta-P (ms) Dist (cm)Ken (m/s) Norm Ken (m/s) NCV Left Sup Peron Anti Sensory (Ant Lat Mall) 34.1 ??C 14 cm 3.2 <4.0 6.4 >10 14 cm Ant Lat Mall 3.2 14.0 44 NCV Right Sup Peron Anti Sensory (Ant Lat Mall) 31.4 ??C 14 cm 3.3 <4.0 4.9 >10 14 cm Ant Lat Mall 3.3 14.0 42 NCV Left Sural Anti Sensory (Lat Mall) 32.9 ??C Calf 3.4 <4.3 9.7 >10 Calf Lat Mall 3.4 14.0 41 NCV Right Sural Anti Sensory (Lat Mall) 32.8 ??C Calf 3.6 <4.3 7.4 >10 Calf Lat Mall 3.6 14.0 39 Motor Summary Table Stim Site NR Onset (ms) Norm Onset (ms) O-P Amp (mV) Norm O-P Amp Site1 Site2 Delta-0 (ms) Dist (cm) Ken (m/s) Norm Ken (m/s) NCV Left Peroneal Motor (Ext Dig Brev) 33.1 ??C Ankle 3.6 <6.2 2.9 >2.0 B Fib Ankle 4.8 25.0 52 >40 B Fib 8.4 2.8 Poplt B Fib 1.4 10.0 71 >40 Poplt 9.8 2.7 NCV Right Peroneal Motor (Ext Dig Brev) 34.1 ??C Ankle 3.6 <6.2 2.4 >2.0 B Fib Ankle 4.8 25.0 52 >40 B Fib 8.4 2.3 Poplt B Fib 1.9 10.0 53 >40 Poplt 10.3 1.8 NCV Left Tibial Motor (Abd Gage Brev) 35.1 ??C Ankle 3.9 <6.2 4.7 >5.0 Knee Ankle 6.1 30.0 49 >40 Knee 10.0 5.2 NCV Right Tibial Motor (Abd Gage Brev) 32.8 ??C Ankle 4.2 <6.2 5.4 >5.0 Knee Ankle 5.5 31.0 56 >40 Knee 9.7 5.3 F Wave Studies NR F-Lat (ms) Lat Norm (ms) L-R F-Lat (ms) L-R Lat Norm Left Peroneal (Mrkrs) (EDB) 34.2 ??C 43.27 <60 <4.0 Left Tibial (Mrkrs) (Abd Hallucis) 34 ??C 46.30 <61 <4.0 EMG Side Muscle Nerve Root Ins Act Fibs Psw Other Amp Dur Poly Recrt Comment Left MedGastroc Tibial S1-2 Nml 0 0 Nml Nml 0 Nml Left AntTibialis Dp Br Peron L4-5 Nml 0 0 Nml Nml 0 Nml Left VastusMed Femoral L2-4 Nml 0 0 Nml Nml 0 Nml Right MedGastroc Tibial S1-2 Nml 0 0 Nml Nml 0 Nml Right AntTibialis Dp Br Peron L4-5 Nml 0 0 Nml Nml 0 Nml serrations Right VastusMed Femoral L2-4 Nml 0 0 Nml Nml 0 Nml Right Peroneus Long Sup Br Peron L5-S1 Nml 0 0 Nml Nml 0 Nml Waveforms: documented in this encounter Plan of Treatment Not on file documented as of this encounter Visit Diagnoses Diagnosis Polyneuropathy- Primary Unspecified hereditary and idiopathic peripheral neuropathy Numbness and tingling Disturbance of skin sensation documented in this encounter Additional Health Concerns Assessment Noted Time PHQ-9 Depression Total Score: 0 07/11/20 2:47 PM EDT A fall risk assessment has been complete d for the patient 07/11/2025 2:47 PM EDT A Body Mass Index follow-up plan has been documented for the patient 07/14/2025 11:50 AM EDT documented as of this encounter Care Teams Business Resiliency Manager Relationship Specialty Start Date End Date Marly Kumar APRN [address] [place] [id number] PCP - General 06/09/25 Jessie Payne APRN [address] [place], [place] [address] 08/07/23 documented as of this encounter
[2025-08-23] VITALS (16 sets, daily range): BP systolic 109–180; BP diastolic 57–123; PULSE 63–80; RESP 13–21; TEMP 35.8–36.8; O2SAT 92–100; BMI 33.1; BMI 34.6
--- NOTE | 2025-08-23 10:38 | ECG_ITS ---
APPROVED REPORT Exam: Resting ECG HR:69 bpm ECG Measurements Heart Rate 69 AXES TN 157 P 58 QRSd 78 QRS 21 QT 374 T 5 QTc 394 Conclusion SINUS RHYTHM LOW QRS VOLTAGE IN PRECORDIAL LEADS [QRS DEFLECTION < 1.0 mV IN CHEST LEADS] BORDERLINE ECG UNCONFIRMED REPORT Electronically signed by : RUFUS BULLARD, 08/24/2025 06:45:13
--- NOTE | 2025-08-23 10:52 | CT_ITS ---
FINAL REPORT CLINICAL HISTORY: facial droop and headache FINDINGS: CT NECK ANGIO, WITHOUT AND WITH CONTRAST TECHNIQUE: Thin section axial CT with contrast with multiplanar 3D MIP reconstruction. This study was performed with techniques to keep radiation doses as low as reasonably achievable, (ALARA). Individualized dose reduction techniques using automated exposure control or adjustment of mA and/or kV according to the patient's size were employed. NASCET criteria and technique was utilized during interpretation. Aortic arch: There is minimal calcified plaque without measurable stenosis. Right carotid: There is minimal calcified plaque without measurable stenosis. Left carotid: No significant stenosis is seen of the cervical common or internal carotid artery. Vertebrals: Left vertebral artery is dominant. No significant stenosis is present. There is significant extravasation of contrast in the left axilla, presumably related to infiltration from IV contrast injection. IMPRESSION: No significant stenosis of the cervical carotid arteries This study was performed using automated techniques to achieve radiation exposure as low as reasonably Reviewed, Interpreted and Dictated by Kimberley Franklin MD Transcribed by Mary Ann Alva Authenticated and [facility]
--- NOTE | 2025-08-23 10:52 | CT_ITS ---
FINAL REPORT TECHNIQUE: Noncontrast exam This study was performed with techniques to keep radiation doses as low as reasonably achievable, (ALARA). Individualized dose reduction techniques using automated exposure control or adjustment of mA and/or kV according to the patient''s size were employed. CLINICAL HISTORY: facial droop and headache COMPARISON: 04/26/2025 FINDINGS: There is a subtle hypodensity in the right thalamus which is new since prior, may represent acute or early subacute infarct. MRI could better differentiate. There is age-appropriate atrophy with mild chronic microvascular changes. No abnormal density is seen. Ventricles are normal. There is no hemorrhage. No mass effect is seen. Bone windows show no evidence of fracture. IMPRESSION: Interval development of small lacunar infarct in the right thalamus. Reviewed, Interpreted and Dictated by Kimberley Franklin MD Transcribed by Mary Ann Alva Authenticated and [facility]
--- NOTE | 2025-08-23 10:52 | CT_ITS ---
FINAL REPORT CLINICAL HISTORY: facial droop & headache FINDINGS: CTA HEAD TECHNIQUE: Thin section axial CT with contrast with 3D MIP reconstruction This study was performed with techniques to keep radiation doses as low as reasonably achievable, (ALARA). Individualized dose reduction techniques using automated exposure control or adjustment of mA and/or kV according to the patient's size were employed. No aneurysm is seen. Major intracranial vessels are patent without significant stenosis. 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 IMPRESSION: No acute large vessel occlusive disease. This study was performed using automated techniques to achieve radiation exposure as low as reasonably achievable Reviewed, Interpreted and Dictated by Kimberley Franklin MD Transcribed by Mary Ann Alva Authenticated and [facility]
--- NOTE | 2025-08-23 11:07 | ED_ITS ---
<Statement entered by Kin Tobar MD - 08/23/25 17:59> I was consulted by the LIBBY, and we discussed the complexity of the problems being addressed. I approve the treatment and management plan for this patient's care in the emergency department, thus performing a substantive portion of the medical decision making. Kin Tobar MD Discharge Plan Disposition Patient Disposition: Admitted Condition: Good Prescriptions Prescriptions: No Action quetiapine 25 mg tablet 12.5 mg PO HS Patient Comments: take ONE-HALF TABLET BY MOUTH every night FOR SLEEP nystatin 100,000 unit/gram cream 1 applic topical DAILY loratadine 10 mg tablet 10 mg PO DAILY Patient Comments: TAKE ONE TABLET BY MOUTH DAILY budesonide-formoterol 160-4.5 mcg/actuation HFA aerosol inhaler 2 puff inhalation BID fenofibrate nanocrystallized 145 mg tablet 145 mg PO DAILY Patient Comments: TAKE ONE TABLET BY MOUTH AT BEDTIME levothyroxine 88 mcg capsule 88 mcg PO DAILY Rx Instructions: Take 1 tablet by mouth daily on empty stomach before breakfast mirtazapine 30 mg tablet 30 mg PO HS Patient Comments: TAKE ONE TABLET BY MOUTH AT BEDTIME tizanidine 4 mg tablet 4 mg PO DAILY PRN (Reason: muscle spasms) Rx Instructions: Take 1/2 to 1 tablet every 6 hours as needed for pain levetiracetam [Keppra] 1,000 mg tablet 1,000 mg PO BID Qty: 180 3RF acetaminophen 500 MG tablet 1,000 mg PO BIDP PRN (Reason: pain) bisoprolol fumarate 2.5 mg tablet 2.5 mg PO DAILY furosemide 40 mg tablet 40 mg PO BID ropinirole 1 mg tablet 1 mg PO HS lactulose 10 gram/15 mL Solution 20 g PO DAILY 30 Days Qty: 1200 0RF omeprazole 40 capsule,delayed release(DR/EC) 40 mg PO DAILY atorvastatin 40 MG tablet 40 mg PO DAILY potassium chloride 20 MEQ tablet 20 meq PO BID aspirin 81 MG tablet,chewable 81 mg PO DAILY nitroglycerin 0.4 MG tablet, sublingual 0.4 mg sublingual Q5MINP PRN (Reason: Chest Pain) ondansetron 8 MG tablet,disintegrating 8 mg PO Q8HP PRN (Reason: Nausea) magnesium oxide 400 mg (241.3 mg magnesium) tablet 400 mg PO DAILY albuterol sulfate [Ventolin HFA] 90 mcg/actuation Hfa Aerosol Inhaler 2 puff INHALATION Q4HP PRN (Reason: Shortness Of Breath) Calcium + Vitamin D 600 mg calcium- 200 unit Tablet 1 tab PO DAILY metoclopramide HCl 5 mg Tablet 5 mg PO AC midodrine 2.5 mg Tablet 2.5 mg PO BID Rx Instructions: do not give last dose of day after 6PM or within 4 hrs of bedtime Referrals Follow up/Referrals: Provider,Referral, MD [Referring, Medical] - See instructions Clinical Impressions Clinical Impression: Acute CVA (cerebrovascular accident) Instructions Patient Instructions: DI for Ischemic Stroke Print Language Print Language: Khmer Discharge ED Provider: Kin Tobar General Adult HPI <Chandan Ybarra ([facility]), MIDWIFE - Last Filed: 08/23/25 18:00> General Chief complaint: Altered Mental Status Stated complaint: Rt sided Headache Time Seen by Provider: 08/23/25 10:51 Mode of Arrival: EMS Source of Information: Patient Limitations: No Limitations History of Present Illness HPI narrative: 71-year-old female presents for right-sided facial droopiness. Patient states she went to bed at 10:00 last night and was normal, woke up twice last time was at 3 AM and was normal and then woke up at 5:00 AM with right-sided facial droopiness. Patient states she has had a headache on the right side is 7 out of 10. Patient states she has had a stroke in the past which it is normal for her to have some facial droopiness but seems to be worse now. Related Data Home Medications ?Medication ?Instructions ?Recorded ?Confirmed atorvastatin 40 mg tablet 40 mg PO DAILY 04/23/1908/03 omeprazole 40 mg capsule,delayed 40 mg PO DAILY 08/23/25 release aspirin 81 mg chewable tablet 81 mg PO DAILY 04/24/19 08/23/25 nitroglycerin 0.4 mg sublingual 0.4 mg sublingual Q5MI PALM AND BACK FORGER PRN Chest 04/24/19 08/23/25 tablet Pain ondansetron 8 mg disintegrating 8 mg PO Q8HP PRN Nause a 04/24/19 08/23/25 tablet potassium chloride 20 mEq 20 meq PO BID POTASSIUM SUPP LEMENT 04/24/19 08/23/25 tablet,extended release(part/cryst) acetaminophen 500 mg tablet 1,000 mg PO BIDP PRN pain 08/08/19 08/23/25 budesonide-formoterol HFA 160 2 puff inhalation BID 08/23/25 mcg-4.5 mcg/actuation aerosol inhaler fenofibrate nanocrystallized 145 145 mg PO DAILY 01/2508/23/25 mg tablet levothyroxine 88 mcg capsule 88 mcg PO DAILY 01/25/25 08/23/25 loratadine 10 mg tablet 10 mg PO DAILY 01/25/2508/03 magnesium oxide 400 mg (241.3 mg 400 mg PO DAILY 01/2508/23/25 magnesium) tablet mirtazapine 30 mg tablet 30 mg PO HS 01/25/25 5 nystatin 100,000 unit/gram topical 1 applic topical DA MALLORY 01/25/25 08/23/25 cream quetiapine 25 mg tablet 12.5 mg PO HS 01/25/2508/23 tizanidine 4 mg tablet 4 mg PO DAILY PRN muscle spa sms 01/25/25 08/23/25 bisoprolol fumarate 2.5 mg tablet 2.5 mg PO DAILY 04/0308/23/25 furosemide 40 mg tablet 40 mg PO BID 04/27/25 ropinirole 1 mg tablet 1 mg PO HS 04/27/25 08/23/25 albuterol sulfate 90 mcg/actuation 2 puff inhalation Q 4HP PRN 08/23/25 08/23/25 aerosol inhaler (Ventolin HFA) Shortness Of Breath calcium carb-ergocalciferol (vit 1 tab PO DAILY 08/23/25 D2) 600 mg calcium-200 unit tablet metoclopramide HCl 5 mg tablet 5 mg PO AC 08/23/25 midodrine 2.5 mg tablet 2.5 mg PO BID 08/23/2508/23 Previous Rx's ?Medication ?Instructions ?Recorded lactulose 10 gram/15 mL oral 20 g (30 mL) PO DAILY 30 days 04/28/25 solution #1,200 mL levetiracetam 1,000 mg tablet 1,000 mg PO BID #180 tab s 05/16/25 (Keppra) Allergies Allergy/AdvReac Type Severity Reaction Status Date / Time alendronate sodium (From Allergy Unknown I-HIVES Verified 05/16/25 09:52 FOSAMAX) Penicillins (PENICILLINS) Allergy Unknown I-HIVES Verified 05/16/25 09:52 Sulfa (Sulfonamide Allergy Unknown I-HIVES Verified 05/16/25 09:52 Antibiotics) (SULFA (SULFONAMIDE ANTIBIOTICS)) gabapentin Allergy Verified 05/16/25 09:52 PFS <Chandan Ybarra ([facility]), MIDWIFE - Last Filed: 08/23/25 18:00> PFS Disclaimer: The information contained in this section may have been updated after the patient was seen, as this information can be updated by other users. Medical History , MIDWIFE) Seizure History of pacemaker Arthritis Seizures Renal insufficiency Osteoporosis Heart attack Migraine Hyperlipemia Depression Dementia CHF (congestive heart failure) Afib Surgical History , MIDWIFE) Hx of hysterectomy Hx of lumpectomy Hx of cholecystectomy Family History , MIDWIFE) Diabetes Hyperlipidemia Hypertension Social History , MIDWIFE) Smoking Status: Former smoker tobacco type: cigarettes packs per day: 2 second hand exposure: No alcohol intake: never substance use type: other current occupational status: disabled Travel in the last 8 weeks?: None household members: other housing: detention current occupational exposures/hazards: No caffeine: Yes Have you lived/traveled outside US in past 30 days?: No Contact w/someone who lives/traveled outside US past 30 days?: No Exposure to someone with infectious disease in past 14 days?: No Do you have a fever (greater than 100.4 F or 38 C)?: No Have you tested positive for COVID-19?: No Exposed to someone with COVID-19 in past 14 days?: No Do you have a sore throat?: No Do you have a cough?: No Do you have any weakness?: No Do you have any diarrhea?: No Are you experiencing any unusual bleeding?: No Do you have any muscle aches/pain?: No Do you have any abdominal pain?: No Are you experiencing loss of taste or smell?: No Other Medical History Have you received the Flu Vaccine for this season: No Have you received the Pneumonia Vaccine: No <Chandan Ybarra ([facility]), MIDWIFE - Last Filed: 08/23/25 18:00> ROS Obtained: Yes Systems reviewed as appropriate & no additional complaints except as documented Constitutional Constitutional: Reports system reviewed and no additional complaints, except as documented, Reports as per HPI and Reports headache(s) ENT Ears, Nose, Mouth, and Throat: Reports system reviewed and no additional complaints, except as documented, Reports as per HPI and Reports headache(s) Neurologic Neurologic: Reports system reviewed and no additional complaints, except as documented, Reports as per HPI, Reports headache(s) and Reports other (Right- sided facial droop) Physical Exam <Chandan Ybarra ([facility]), MIDWIFE - Last Filed: 08/23/25 18:00> General General appearance: alert and in no apparent distress Eye Eye exam: Present other (Right eyelid droopiness) ENT ENT exam: Present normal exam Neck Neck exam: Present normal inspection and full ROM Respiratory Respiratory exam: Present normal lung sounds bilaterally Cardiovascular Cardiovascular exam: Present regular rate and normal rhythm Extremities Exam Extremities exam: Present full ROM, normal capillary refill and other (weakness) Neurological Exam Neurological exam: Present alert, oriented X3 and other (rt facial droop, able to raise dora eyebrows,) Skin Skin exam: Present warm and intact Medical Decision Making <Chandan Ybarra ([facility]), MIDWIFE - Last Filed: 08/23/25 18:00> Medical Records Medical records reviewed: Yes I reviewed the patient's medical records. Screening: Per USPSTF and CDC recommendations, given the prevalence of disease in our region, it is our hospital?s policy to screen for HIV and viral Hepatitis for all patients aged 18 and over and those with ongoing risk factors. Marc Inquiry Pt receiving controlled substance: No Marc was queried for this patient: No Vital Signs: 08/23/25 10:38 08/23/25 11:01 08/23/25 12:01 Temperature 98.2 F Temperature Source Oral Pulse Rate 68 70 Pulse Rate [Left Radial] 69 Respiratory Rate 20 14 15 Blood Pressure 160/80 H 162/85 H Blood Pressure [Right Arm] 160/80 H Blood Pressure Mean [Right Arm] 106 02 Sat by Pulse Oximetry 97 98 100 Oxygen Delivery Method Room Air 08/23/25 12:30 08/23/25 13:55 08/23/25 14:00 Temperature Temperature Source Pulse Rate 72 63 71 Pulse Rate [Left Radial] Respiratory Rate 20 15 20 Blood Pressure 163/69 H 146/74 H 152/79 H Blood Pressure [Right Arm] Blood Pressure Mean [Right Arm] 02 Sat by Pulse Oximetry 100 99 97 Oxygen Delivery Method 08/23/25 14:30 Temperature Temperature Source Pulse Rate 68 Pulse Rate [Left Radial] Respiratory Rate 13 Blood Pressure 161/81 H Blood Pressure [Right Arm] Blood Pressure Mean [Right Arm] 02 Sat by Pulse Oximetry 97 Oxygen Delivery Method Lab Data Lab results reviewed: Yes I reviewed the patient's lab results. Lab Results 08/23/25 11:18: PT 11.3, INR 1.02, APTT 18.1 L, Sodium 139, Potassium 3.7, Chloride 104, Carbon Dioxide 30, Anion Gap 8.7, BUN 26 H, Creatinine 0.90, Estimated Creat Clear 60, Estimated GFR 62, Est GFR ( Amer) 74, Glucose 70 L, Calcium 9.1, Total Bilirubin 0.4, AST 39 H, ALT 24, Alkaline Phosphatase 75, Troponin I < 0.01, Total Protein 6.7, Albumin 3.8, Globulin 2.9, Albumin/Globulin Ratio 1.3, Triglycerides 127, Cholesterol 137 L, LDL Cholesterol Direct 50.43 L, VLDL Cholesterol 25, HDL Cholesterol 59, Cholesterol/HDL Ratio 2.3, Plasma/Serum Alcohol < 10 08/23/25 13:00: WBC 5.4, RBC 3.88 L, Hgb 11.6 L, Hct 36.2 L, MCV 93.3, MCH 29.9, MCHC 32.0, RDW 13.5, Plt Count 161, MPV 11.7 H, Neut % (Auto) 43.2, Lymph % (Auto) 45.1, [place] % (Auto) 8.2, Eos % (Auto) 2.0, Baso % (Auto) 0.6, Neut # (Auto) 2.3, Lymph # (Auto) 2.4, [place] # (Auto) 0.4, Eos # (Auto) 0.1, Baso # (Auto) 0.0 08/23/25 13:36: Urine Color Yellow, Urine Appearance Clear, Urine pH 7.5, Ur Specific [place] 1.010, Urine Protein Negative, Urine Glucose (UA) Negative, Urine Ketones Negative, Urine Blood Negative, Urine Nitrate Negative, Urine Bilirubin Negative, Urine Urobilinogen 0.2, Ur Leukocyte Esterase Trace, Urine RBC None, Urine WBC 3-5, Ur Squamous Epith Cells 5-10, Amorphous Sediment 2+, Urine Bacteria 1+, Urine Opiates Screen Negative, Urine Methadone Screen Negative, Ur Barbituates Screen Negative, Ur Phencyclidine Scrn Negative, Ur Amphetamines Screen Negative, U Benzodiazepines Scrn Negative, Urine Cocaine Screen Negative, U Marijuana (THC) Screen Negative 08/23/25 14:48: Troponin I < 0.01 08/23/25 13:00 08/23/25 11:18 Orders (Tests/Meds): ED MEDICATIONS Generic Name Dose Route Start Last Admin Trade Name Freq PRN Reason Stop Dose Admin Sodium Chloride 10 ml 08/23/25 10:51 Sodium Chloride 0.9% 10ml Flush Syringe IV 09/22/25 10:50 NEEDED PRN Maintain IV Site Discontinued Medications Generic Name Dose Route Start Last Admin Trade Name Freq PRN Reason Stop Dose Admin Diphenhydramine HCl 25 mg 08/23/25 14:26 08/23/25 15:04 Diphenhydramine 50mg/Ml Vial IV 08/23/25 14:27 25 mg ONCE ONE Administration Sodium Chloride 1,000 mls @ 999 mls/hr 08/23/25 14:26 08/23/25 16:29 Sod Chlor 0.9% 1000ml Bag IV 08/23/25 15:26 Infused .Q1H1M ONE Infusion Magnesium Sulfate 2 gm in 50 mls @ 50 mls/hr 08/23/25 14:26 08/23/25 16:30 Magnesium Sulfate 2gm/50ml Premix IV 08/23/25 15:25 Infused ONCE ONE Infusion Iopamidol 130 ml 08/23/25 13:16 08/23/25 13:16 Iopamidol-370 (76%);100ml Bottle IV 08/23/25 13:17 130 ml ONCE ONE Administration Prochlorperazine Edisylate 10 mg 08/23/25 14:26 08/23/25 15:02 Prochlorperazine 10mg/2ml Vial IV 08/23/25 14:27 10 mg ONCE ONE Administration Sodium Chloride 50 ml 08/23/25 13:16 08/23/25 13:16 0.9 % Sodium Chloride 50 Ml Vial IV 08/23/25 13:17 50 ml ONCE ONE Administration Sodium Chloride 10 ml 08/23/25 13:16 08/23/25 13:16 Sodium Chloride 0.9% 10ml Syr (Rad Only) IV 08/23/25 13:17 10 ml ONCE ONE Administration ORDERS Category Date Time Status CT angio head Stat Cat Scan 08/23/25 10:[address] angio neck Stat Cat Scan 08/23/25 10:[address] head/brain wo con Stat Cat Scan 08/23/25 10:52 Completed Activated Partial Thrombo Time Stat Lab 08/23/25 11:18 Completed Complete Blood Count Auto Diff Stat Lab 08/23/25 13:00 Completed Comprehensive Metabolic Panel Stat Lab 08/23/25 11:18 Completed Drug Screen,Urine Stat Lab 08/23/25 13:36 Completed Ethyl Alcohol Stat Lab 08/23/25 11:18 Completed Lipid Panel Stat Lab 08/23/25 11:18 Completed Prothrombin Time INR Stat Lab 08/23/25 11:18 Completed Troponin I Q3H Lab 08/23/25 14:48 Completed Troponin I Stat Lab 08/23/25 11:18 Completed Urinalysis and Microscopic Stat Lab 08/23/25 13:36 Completed Medical Decision Narrative: In summary patient is a 70-year-old female who presents to the emergency department for evaluation of right-sided facial droopiness. Patient states she went to bed at 10:00 last night and was normal, woke up twice last time was at 3 AM and was normal and then woke up at 5:00 AM with right-sided facial droopiness. Patient states she has had a headache on the right side is 7 out of 10. Patient states she has had a stroke in the past which it is normal for her to have some facial droopiness but seems to be worse now, history of Afib. Patient states she was told by her gyroscopic instrument mechanic that aspirin is enough of a blood thinner. Patient states after her first stroke she was placed on a blood thinner but then it was taken off of it but she is unsure why. Patient is hemodynamically stable upon arrival, afebrile. Right-sided facial droopiness. Differential diagnosis includes CVA, migraine, complex headache, cluster headache. Initial workup will be conducted with a subtle hypodensity in the right thalamus which is new since prior, may represent acute or early subacute infarct. Initial inventions include IV fluids, liter of IV fluids, 2 g mag IV, 10 of Compazine, 25 of Benadryl.. Initial workup reviewed by me a subtle hypodensity in the right thalamus which is new since prior, may represent acute or early subacute infarct., Spoke with [facility] -report given recommended migraine cocktail and placed on a wait list for transfer.Upon repeat evaluation 1532 after migraine cocktail patient states headache is greatly improved is eating sandwich and drinking water. Given this finding waiting for bed, and observation. Hospitalist accepted for admit <Kin Tobar MD - Last Filed: 08/23/25 17:59> Vital Signs: 08/23/25 10:38 08/23/25 11:01 08/23/25 12:01 Temperature 98.2 F Temperature Source Oral Pulse Rate 68 70 Pulse Rate [Left Radial] 69 Respiratory Rate 20 14 15 Blood Pressure 160/80 H 162/85 H Blood Pressure [Right Arm] 160/80 H Blood Pressure Mean [Right Arm] 106 02 Sat by Pulse Oximetry 97 98 100 Oxygen Delivery Method Room Air 08/23/25 12:30 08/23/25 13:55 08/23/25 14:00 Temperature Temperature Source Pulse Rate 72 63 71 Pulse Rate [Left Radial] Respiratory Rate 20 15 20 Blood Pressure 163/69 H 146/74 H 152/79 H Blood Pressure [Right Arm] Blood Pressure Mean [Right Arm] 02 Sat by Pulse Oximetry 100 99 97 Oxygen Delivery Method 08/23/25 14:30 Temperature Temperature Source Pulse Rate 68 Pulse Rate [Left Radial] Respiratory Rate 13 Blood Pressure 161/81 H Blood Pressure [Right Arm] Blood Pressure Mean [Right Arm] 02 Sat by Pulse Oximetry 97 Oxygen Delivery Method Lab Data Lab Results 08/23/25 11:18: PT 11.3, INR 1.02, APTT 18.1 L, Sodium 139, Potassium 3.7, Chloride 104, Carbon Dioxide 30, Anion Gap 8.7, BUN 26 H, Creatinine 0.90, Estimated Creat Clear 60, Estimated GFR 62, Est GFR ( Amer) 74, Glucose 70 L, Calcium 9.1, Total Bilirubin 0.4, AST 39 H, ALT 24, Alkaline Phosphatase 75, Troponin I < 0.01, Total Protein 6.7, Albumin 3.8, Globulin 2.9, Albumin/Globulin Ratio 1.3, Triglycerides 127, Cholesterol 137 L, LDL Cholesterol Direct 50.43 L, VLDL Cholesterol 25, HDL Cholesterol 59, Cholesterol/HDL Ratio 2.3, Plasma/Serum Alcohol < 10 08/23/25 13:00: WBC 5.4, RBC 3.88 L, Hgb 11.6 L, Hct 36.2 L, MCV 93.3, MCH 29.9, MCHC 32.0, RDW 13.5, Plt Count 161, MPV 11.7 H, Neut % (Auto) 43.2, Lymph % (Auto) 45.1, [place] % (Auto) 8.2, Eos % (Auto) 2.0, Baso % (Auto) 0.6, Neut # (Auto) 2.3, Lymph # (Auto) 2.4, [place] # (Auto) 0.4, Eos # (Auto) 0.1, Baso # (Auto) 0.0 08/23/25 13:36: Urine Color Yellow, Urine Appearance Clear, Urine pH 7.5, Ur Specific [place] 1.010, Urine Protein Negative, Urine Glucose (UA) Negative, Urine Ketones Negative, Urine Blood Negative, Urine Nitrate Negative, Urine Bilirubin Negative, Urine Urobilinogen 0.2, Ur Leukocyte Esterase Trace, Urine RBC None, Urine WBC 3-5, Ur Squamous Epith Cells 5-10, Amorphous Sediment 2+, Urine Bacteria 1+, Urine Opiates Screen Negative, Urine Methadone Screen Negative, Ur Barbituates Screen Negative, Ur Phencyclidine Scrn Negative, Ur Amphetamines Screen Negative, U Benzodiazepines Scrn Negative, Urine Cocaine Screen Negative, U Marijuana (THC) Screen Negative 08/23/25 14:48: Troponin I < 0.01 Orders (Tests/Meds): ED MEDICATIONS Generic Name Dose Route Start Last Admin Trade Name Freq PRN Reason Stop Dose Admin Sodium Chloride 10 ml 08/23/25 10:51 Sodium Chloride 0.9% 10ml Flush Syringe IV 09/22/25 10:50 NEEDED PRN Maintain IV Site Discontinued Medications Generic Name Dose Route Start Last Admin Trade Name Kyle PRN Reason Stop Dose Admin Diphenhydramine HCl 25 mg 08/23/25 14:26 08/23/25 15:04 Diphenhydramine 50mg/Ml Vial IV 08/23/25 14:27 25 mg ONCE ONE Administration Sodium Chloride 1,000 mls @ 999 mls/hr 08/23/25 14:26 08/23/25 16:29 Sod Chlor 0.9% 1000ml Bag IV 08/23/25 15:26 Infused .Q1H1M ONE Infusion Magnesium Sulfate 2 gm in 50 mls @ 50 mls/hr 08/23/25 14:26 08/23/25 16:30 Magnesium Sulfate 2gm/50ml Premix IV 08/23/25 15:25 Infused ONCE ONE Infusion Iopamidol 130 ml 08/23/25 13:16 08/23/25 13:16 Iopamidol-370 (76%);100ml Bottle IV 08/23/25 13:17 130 ml ONCE ONE Administration Prochlorperazine Edisylate 10 mg 08/23/25 14:26 08/23/25 15:02 Prochlorperazine 10mg/2ml Vial IV 08/23/25 14:27 10 mg ONCE ONE Administration Sodium Chloride 50 ml 08/23/25 13:16 08/23/25 13:16 0.9 % Sodium Chloride 50 Ml Vial IV 08/23/25 13:17 50 ml ONCE ONE Administration Sodium Chloride 10 ml 08/23/25 13:16 08/23/25 13:16 Sodium Chloride 0.9% 10ml Syr (Rad Only) IV 08/23/25 13:17 10 ml ONCE ONE Administration ORDERS Category Date Time Status CT angio head Stat Cat Scan 08/23/25 10:[address] angio neck Stat Cat Scan 08/23/25 10:[address] head/brain wo con Stat Cat Scan 08/23/25 10:52 Completed Activated Partial Thrombo Time Stat Lab 08/23/25 11:18 Completed Complete Blood Count Auto Diff Stat Lab 08/23/25 13:00 Completed Comprehensive Metabolic Panel Stat Lab 08/23/25 11:18 Completed Drug Screen,Urine Stat Lab 08/23/25 13:36 Completed Ethyl Alcohol Stat Lab 08/23/25 11:18 Completed Lipid Panel Stat Lab 08/23/25 11:18 Completed Prothrombin Time INR Stat Lab 08/23/25 11:18 Completed Troponin I Q3H Lab 08/23/25 14:48 Completed Troponin I Stat Lab 08/23/25 11:18 Completed Urinalysis and Microscopic Stat Lab 08/23/25 13:36 Completed Procedures <Kin Tobar MD - Last Filed: 08/23/25 17:59> Limited Ultrasound Indication:: Indication:: Ultrasound-guided line placement Indication: - Difficult IV access, numerous unsuccessful pokes Identified structures: - Right basilic vein, cephalic vein Location/access site: - Basillic vein Vessel patency: - Patent Direct visualization? - Yes Impression: Successful 18g catheter in left upper extremity cephalic vein Images were not saved to permanent archive The study was technically adequate Critical Care <Chandan Ybarra ([facility]), SHAKIRA - Last Filed: 08/23/25 18:00> Critical Care Time Critical Care Time: Yes Attestation: On 08/23/25, the high probability of a clinically significant, sudden or life threatening deterioration of the following system(s) required my full and direct attention, intervention and personal management. The time I documented below is in addition to time spent performing reported procedures but includes the following listed in this critical care notation. Total Time Total Critical Care Time: 35
--- OUTSIDE RECORDS SUMMARY | 2025-08-23 11:11 | XMS_ITS | Encounter Summary ---
Author Organization [facility] Address [address] [place] [address] Care Team Providers Care Director Voice Name Role Phone Marly Kumar SHAKIRA Primary Care Provider [phone] Encounter Details Date Type Department Care Team [...] 2:00 PM EST Office Visit [facility] [address] [id number] Nereida Ambrose APRN [address] [place] [address] 09/11/2025 2:00 PM EST Clinical Support No Requirements [facility] [address] [id number] documented as of this encounter Visit Diagnoses Not on filedocumented in this encounter Care Teams Director Voice Relationship Specialty Start Date End Date Marly Kumar, [employer] PROFESSOR [address] [place] [address] PCP - General Family Medicine 07/06/24 documented as of this encounter
--- OUTSIDE RECORDS SUMMARY | 2025-08-23 11:11 | XMS_ITS | Encounter Summary ---
Author Organization [facility] Address [address] [place] [address] Care Team Providers Care Indoor Plant Technician Name Role Phone Marly Kumar APRN Primary Care Provider [phone] Encounter Details Date Type Department Care Team (Late st Contact Info) Description 06/30/2025 Telephone [facility] [address] [place] [address] Dinorah Christiansen MD [address] [place] [address] Social History Tobacco Use Types Packs/Day [...] IT OFF? STATES THAT SHE WENT TO [facility] AND NO ONE TURNED IT OFF [...] BACK FROM DR CHRISTIANSEN TO DISCUSS AT [phone]. SHE IS COMING IN ON 07-05 FOR NURSE VISIT. documented in this encounter Plan of Treatment Upcoming Encounters Date Type Department Care Team (Late st Contact Info) Description 09/11/2025 2:00 PM EST Office Visit [facility] [address] [place] [address] [place] [address] Nereida Ambrose APRN [address] [place] [address] 09/11/2025 2:00 PM EST Clinical Support No Requirements [facility] [address] [place] [address] [place] [address] documented as of this encounter Visit Diagnoses Not on filedocumented in this encounter Care Teams Indoor Plant Technician Relationship Specialty Start Date End Date Marly Kumar APRN [address] [place] [id number] PCP - General Family Medicine 07/06/24 documented as of this encounter
--- OUTSIDE RECORDS SUMMARY | 2025-08-23 11:11 | XMS_ITS | Encounter Summary ---
Author Organization [employer] ([place], [place], [place], [place]) Address [address] [place] [address] Care Team Providers Care Site Safety Manager Name Role Phone Marly Kumar PSYCHOLOGY INTERN Primary Care Provider [phone] Encounter Details Date Type Department Care Team (Late st Contact Info) Description 07/26/2020 Transcribed Document [facility] [place] [facility] [place] [address] ProviderMiya MD [address], [place] [address] Social History Tobacco Use Types Packs/Day Years [...] On: 07/26/2020 15:58 EDT by EDISON FONTANEZ, RN-Production Lead Initial Assessment I Previously Documented Living Environment [...] Is Guardianship Needed : No EDISON FONTANEZ, RN-Production Lead - 07/26/2020 15:58 EDT Initial Assessment II Sensory and Motor Deficits : Weakness Deficit Description : uses a wheelchair for mobility Current Home Treatments and Equipment : Wheelchair Services and Community Resources : Transportation assistance Services and Community Resources Addl Comments : [facility] phone [phone] fax [phone] [employer] [facility] phone [phone] / [phone] Does the Patient have a Floor to SNF Benefit? : No EDISON FONTANEZ, RN-Production Lead - 07/26/2020 15:58 EDT Discharge Needs I Anticipated Discharge Date : 07/28/2020 EDT Anticipated Discharge To, : Extended Care Facility Current Home Treatment/Equipment : Current Home Treatment/Equipment No qualifying data available. Post Acute/Home Treatments : None Documentation Status Complete : Yes EDISON FONTANEZ, RN-Production Lead - 07/26/2020 15:58 EDT Discharge Needs II Professional Skilled Services : Professional Skilled Services No qualifying data available. Needs Assistance with Transportation : Yes EDISON FONTANEZ, RN-Production Lead - 07/26/2020 15:58 EDT Narrative Note Narrative Note : Pt from [facility] in [facility]. Called Em at [facility]. She stated that pt has a bedhold. She stated that pt travels using [employer] (the bus). She stated that pt can return to the facility when she is discharged. EDISON FONTANEZ RN-Production Lead - 07/26/2020 15:58 EDT documented in this encounter Plan of Treatment Not on file documented as of this encounter Visit Diagnoses Not on filedocumented in this encounter Care Teams Site Safety Manager Relationship Specialty Start Date End Date Marly Kumar, DUNG [address] [place] [address] PCP - General Nurse Practitioner 09/22/24 documented as of this encounter
--- OUTSIDE RECORDS SUMMARY | 2025-08-23 11:11 | XMS_ITS | Encounter Summary ---
Author Organization [employer] ([place], [place], [place], [place]) Address [address] [place] [address] Care Team Providers Care Construction Estimator Name Role Phone Marly Kumar PICKER / PACKER Primary Care Provider [phone] Encounter Details Date Type Department Care Team (Late st Contact Info) Description 07/26/2020 Transcribed Document [facility] [place] [address] ProviderMiya MD [address] [place] [address] [phone] Social History Tobacco Use Types Packs/Day Years [...] On: 07/26/2020 16:03 EDT by EDISON FONTANEZ, RN-Millroom SupervisorHead Bellhop Captain Progress Note Discharge Arrangements : Patient Post-Acute [...] Attend Multidisciplinary Rounds? : No EDISON FONTANEZ, RN-Millroom Supervisor - 07/26/2020 16:03 EDT Narrative Progress Note Narrative Progress Note : On continuous EEG monitoring. EDISON FONTANEZ, RN-Millroom Supervisor - 07/26/2020 16:03 EDT Electronically signed by [facility], [facility] Conversion Hotel Breakfast Attendant Cerner at 02/19/2023 6:34 PM CDT documented in this encounter Plan of Treatment Not on file documented as of this encounter Visit Diagnoses Not on filedocumented in this encounter Care Teams Construction Estimator Relationship Specialty Start Date End Date Marly Kumar NP [address] [place] [address] PCP - General Nurse Practitioner 09/22/24 documented as of this encounter
--- OUTSIDE RECORDS SUMMARY | 2025-08-23 11:11 | XMS_ITS | Encounter Summary ---
Author Organization [employer] ([place], [place], [place], [place]) Address [address] [place] [address] Care Team Providers Care Drafter Construction Name Role Phone Maryl Kumar EMERY WHEEL MOLDER Primary Care Provider [phone] Encounter Details Date Type Department Care Team (Late st Contact Info) Description 07/26/2020 Transcribed Document [facility] [place] [facility] [address] ProviderMiya MD [address] [place] [address] [id number] Social History Tobacco Use Types Packs/Day Years [...] Services : Nursing, Occupational therapy, Physical Therapy, sales executive, Respiratory Therapy, New Order Clerk Courtney Kearns RN - 07/26/2020 16:24 EDT General Info Arrived From : medical terminologist care [facility] Mode of Arrival on Unit : Wheelchair Patient Arrival Date/Time : 07/26/2020 12:00 EDT Legal Guardian : Care provider Legal Guardian : No Support Person/Patient Monitor Worker : No Support Person/Pt Rep Name : Marie [facility] [phone] Want Family/Rep/Phys Notified of Admit : No Emergency Contact #1 : Mckenna Mata Emergency Contact #1 Emergency Contact #1 Relationship : daughter Emergency Contact #2 : n/a Emergency Contact #2 Phone Number : n/a Emergency Contact #2 Relationship : n/a Information Obtained From : Medical Record Primary Language : Northern Irish Preferred Communication Mode : Verbal Communication Barrier : None Protective Signal Repairer Helper Needed : No Objects to Sharing Info [...] Level : 46 or > High Risk [place] Fall Interventions : Adequate lighting, Bed in [...] Source : Stated Height Entry Format : Bertie Height, Feet : 4 ft(Converted to: 122 cm, 48 Inch) Height, Inches : 11 Inch(Converted to: 0 ft 11 Inch, 27.94 cm) Clinical Height : 149.86 cm Weight Source : Stated Severy Body Weight : 43 kg Courtney Kearns RN - 07/26/2020 16:24 EDT Estimated Weight Type of Weight Measurement Est : Bertie Weight, est lb : 245 lb(Converted to: [...] Assessment : Pt transferred from SNF, LTC, [facility], or rehab hospital Active Surveillance Screen Positive [...] Courtney Kearns RN - 07/26/2020 16:24 EDT Oliver Suicide Severity Rating Scale (C-SSRS) CSSRS Past [...] - 07/26/2020 16:24 EDT Electronically signed by Celestine, [facility] Conversion Saddle Maker Cerner at 02/19/2023 6:44 PM CDT documented in this encounter Plan of Treatment Not on file documented as of this encounter Visit Diagnoses Not on filedocumented in this encounter Care Teams Drafter Construction Relationship Specialty Start Date End Date Marly Kumar NP [address] [place] [address] PCP - General Nurse Practitioner 09/22/24 documented as of this encounter
--- OUTSIDE RECORDS SUMMARY | 2025-08-23 11:12 | XMS_ITS | Encounter Summary ---
Author Organization [employer] ([place], [place], [place], [place]) Address [address] [place] [address] Care Team Providers Care Fx Artist Name Role Phone Marly Kumar BOX BLANK MACHINE FEEDER Primary Care Provider [phone] Encounter Details Date Type Department Care Team (Late st Contact Info) Description 07/27/2020 Transcribed Document [facility] [place] [facility] [place] [address] ProviderMiya MD [address] [place], [place] [phone] Social History Tobacco Use Types Packs/Day Years [...] Insurance 1 Health Plan: MEDICARE Policy Number: [id number] Authorization Number: Insurance 2 Health Plan: MEDICAID OF [place] Policy Number: [id number] Authorization Number: Insurance Primary Name : MEDICARE Policy Number: [id number] Authorized Service Begin Date-Primary : 07/26/2020 EDT Historical Authorization Comments-Primary : No Authorization Comments Found DRISS DEL REAL RN - 07/27/2020 12:35 EDT Electronically signed by Celestine, [facility] Conversion Rd Scientist Cerner at 02/19/2023 6:32 PM CDT documented in this encounter Plan of Treatment Not on file documented as of this encounter Visit Diagnoses Not on filedocumented in this encounter Care Teams Fx Artist Relationship Specialty Start Date End Date Marly uKmar, DUNG [address] [place] [id number] PCP - General Nurse Practitioner 09/22/24 documented as of this encounter
--- OUTSIDE RECORDS SUMMARY | 2025-08-23 11:12 | XMS_ITS | Clinical Summary ---
Author Organization [facility] Address [address] [place] [address] Care Team Providers Care Staffing Program Manager Name Role Phone Jessie Payne FIRE OBSERVER Unavailable [phone] José Marly Nancy FIRE OBSERVER Primary Care Provider [phone] Allergies Active Allergy Reactions Criticality Noted Date [...] Active Problems Problem Noted Date Diagnosed Date Polyneuropathy 07/14/2025 Bilateral carpal tunnel syndrome 06/30/2025 Numbness and [...] Encounters Date Type Department Care Team Description 07/11/2025 2:30 PM EDT Procedure Visit [facility] at [facility] [address] [place] [address] Freedom Henson DO Polyneuropathy (Primary Dx); Numbness and tingling 07/11/2025 Travel 06/30/2025 11:00 AM EDT Procedure Visit [facility] at [facility] [address] [place] [address] Freedom Henson DO Bilateral carpal tunnel syndrome (Primary Dx); Numbness and tingling 06/30/2025 Travel 06/02/2025 Community [facility] [address] [place] [address] Cynthia Garay MD Numbness (Primary Dx); Numbness [...] drink first t zander in the morning (EYE-CANDY ROLLER) to steady your nerves or to get [...] Pulse 61 07/11/2025 2:46 PM EDT Temperature 36.9 C (98.5 F) 08/08/2023 2:50 PM EDT Respiratory Rate 17 08/08/2023 2:50 PM EDT Oxygen Saturation 97% 07/11/2025 2:46 PM EDT Inhaled Oxygen Concentration - - Weight 67.1 kg (148 lb) 07/11/2025 2:46 PM EDT Height 152.4 cm (5') 07/11/2025 2:46 PM EDT Body Mass Index 28.9 07/11/2025 2:46 PM EDT Plan of Treatment Health Maintenance Due Date Last Done Comments [facility]-Bone Density Scan 1955 [facility]-Hepatitis C Screening 1955 [facility]-Medicare Annual Wellness (AWV) 1955 [facility]-/Child/Adol SDOH Screenings 1955 [facility]- SDOH Screenings 1971 [facility]-Adult SDOH Screenings 1971 CT Colonography 1998 Colonoscopy 1998 FIT-DNA 1998 FIT 1998 FOBT 1998 Sigmoidoscopy 1998 [facility]-Colorectal Cancer Screening 1998 [facility]-Breast Cancer Screening 2003 [id number] Vaccine ( season) 2025 09/09/2021, 12/05/2020, 11/15/2020 [facility]-Influenza Vaccine (#1) 07/03/202509/08, 08/18/2022, 08/11/2014, Additional history exists [facility]-Depression Screening 07/11/2026 07/11/2025, 07/2025 [facility]-DTaP,Tdap,and Td Vaccines (3 - Td or Tdap) 05/10/2035 05/10/2025, 08/07/2023 [facility]-Pneumococcal Vaccine: 50+ Years Completed 05/17/2024 [facility]-RSV Vaccine: 60+ Years or Completed 09/08/2024 [facility]-Zoster Vaccines Completed 12/28/2024, [facility]-Obesity Intervention Completed 025, 06/30/2025, 08/14/2023 HPV Vaccines Aged Out No longer [...] yes Risks discussed: Bleeding, infection and pain [place] protocol: Procedure explained and questions answered to [...] Resu lt from Last 3 Months Insurance MEDICARE [place] Advance Directives * Full Code (Latest Code Status on File) Date Activated Date Inactivated Comments 08/07/2023 11:31 PM 08/08/2023 9:21 PM Question Answer Comments Patient has decision-making capacity? Yes Care Teams Staffing Program Manager Relationship Specialty Start Date End Date Marly Kumar APRN [address] [place] [address] PCP - General 06/09/25 Jessie Payne APRN [address] [place] [address] 08/07/23
--- OUTSIDE RECORDS SUMMARY | 2025-08-23 11:12 | XMS_ITS | Encounter Summary ---
Author Organization [email or web address] ([place], [place], [place], [place]) Address [address] [place] [address] Care Team Providers Care Paint Maker Name Role Phone Marly Kumar FIRE ADJUSTER Primary Care Provider [phone] Encounter Details Date Type Department Care Team (Late st Contact Info) Description 07/27/2020 Transcribed Document [facility] [place] [address] ProviderMiya MD [address] [place] [address] [id number] Social History Tobacco Use Types Packs/Day Years [...] On: 07/27/2020 14:25 EDT by EDISON FONTANEZ, RN-Pediatric Physician AssistantMedication Technician Progress Note Discharge Arrangements : Patient Post-Acute [...] Attend Multidisciplinary Rounds? : No EDISON FONTANEZ, RN-Pediatric Physician Assistant - 07/27/2020 14:25 EDT Narrative Progress Note Narrative Progress Note : Continues on EEG monitoring. Updates faxed to [facility]. Historical Progress Note : On continuous EEG monitoring. EDISON FONTANEZ RN-Pediatric Physician Assistant - 07/26/20 16:04:13 EDISON FONTANEZ RN-Pediatric Physician Assistant - 07/27/2020 14:25 EDT documented in this encounter Plan of Treatment Not on file documented as of this encounter Visit Diagnoses Not on filedocumented in this encounter Care Teams Paint Maker Relationship Specialty Start Date End Date Marly Kumar, DUNG [address] [place] [address] PCP - General Nurse Practitioner 09/22/24 documented as of this encounter
--- OUTSIDE RECORDS SUMMARY | 2025-08-23 11:12 | XMS_ITS | Encounter Summary ---
Author Organization [email or web address] ([place], [place], [place], [place]) Address [address] [place] [address] Care Team Providers Care Community Health Navigator Name Role Phone Marly Kumar CHIEF LIBRARIAN BRANCH Primary Care Provider Encounter Details Date Type Department Care Team (Late st Contact Info) Description 07/28/2020 Transcribed Document [facility] [place] [address] [place] [address] ProviderMiya MD [address] [place] [address] Social History Tobacco Use Types Packs/Day [...] Miya ProviderMD - 07/28/2020 10:08 AM CDT [address] [place] [address] Patient Copy Patient Information: Name: RENNY VILLA Current Date: 07/28/2020 10:08:21 : 1955 Patient Address: [address] [facility] [address] Patient Attending Physician: YADI SIDDIQI MD-NEU Primary Care Provider: MARIE OMER (REF)ALEJA Primary Care Provider Discharge Diagnosis: Abnormal electroencephalogram (EEG); Localization-related (focal) (partial) idiopathic epilepsy and epileptic syndromes with seizures of localized onset, intractable, without status epilepticus Comment: Follow-up Instructions: With: Address: When: YADI SIDDIQI [address] [place] [address], [address] [place] [address] Business (1) Within 6 months Discharge Instructions: [...] Oral Every Day. fluticasone nasal (Flonase) 1 [place](s) Nostrils Both Every Day. furosemide (Lasix 40 [...] Assistance with quitting is available by contacting 9-052-PKNJ-NOW. This is a free resource providing counseling, [...] Be sure to sign up for the [employer] patient portal, which gives you 25/05 access to your medical information ??? including these discharge instructions ??? using your computer, smartphone, or tablet. Just go to [employer] to get started. Questions? Call . [facility] would like to thank you for allowing us to assist you with your healthcare needs. DAISY Richter JACKQUELINE F, (or desk representative) have received the above patient education materials/instructions and have verbalized understanding: Patient Signature _ Date/Time Patient License Distributor Signature (if needed) Date/Time Clinician/Hospital License Distributor Signature (if needed) Date/Time documented in this encounter Plan of Treatment Not on file documented as of this encounter Visit Diagnoses Not on filedocumented in this encounter Care Teams Community Health Navigator Relationship Specialty Start Date End Date Marly Kumar, DUNG [address] [place] [address] PCP - General Nurse Practitioner 09/22/24 documented as of this encounter
--- OUTSIDE RECORDS SUMMARY | 2025-08-23 11:12 | XMS_ITS | Encounter Summary ---
Author Organization [employer] ([place], [place], [place], [place]) Address [address] [place] [address] Care Team Providers Care Tie Tamper Name Role Phone Marly Kumar STUDENT LIFE VICE PRESIDENT Primary Care Provider [phone] Encounter Details Date Type Department Care Team (Late st Contact Info) Description 07/28/2020 Transcribed Document [facility] [place] [address] ProviderMiya MD [address] [place] [phone] Social History Tobacco Use Types Packs/Day Years [...] EEG-video monitoring was performed using the 32-channel [employer] monitoring system. The seizure detection computer was [...] temporal regions, more prominent on the left. /[id number] Rad Duong MD TAF/AQ / TAF / MODL /[id number] Electronically signed by Celestine [facility] Conversion Shipping And Receiving Coordinator Cerner at 02/19/2023 6:29 PM CDT documented in this encounter Plan of Treatment Not on file documented as of this encounter Visit Diagnoses Not on filedocumented in this encounter Care Teams Tie Tamper Relationship Specialty Start Date End Date Marly Kumar, DUNG [address] [place], [place] [address] PCP - General Nurse Practitioner 09/22/24 documented as of this encounter
--- OUTSIDE RECORDS SUMMARY | 2025-08-23 11:12 | XMS_ITS | Encounter Summary ---
Author Organization [employer] ([place], [place], [place], [place]) Address [address] [place] [address] Care Team Providers Care Rat Poisoner Name Role Phone Marly Kumar CAR WASH ATTENDANT AUTOMATIC Primary Care Provider [phone] Encounter Details Date Type Department Care Team (Late st Contact Info) Description 07/27/2020 Transcribed Document [facility] [place] [place] [facility] [place] [address] ProviderMiya MD [address] [place] [address] [phone] Social History Tobacco Use Types Packs/Day Years [...] Oil: 1,000 mg, Oral, Daily Flonase: 1 [place], Nostrils Both, Daily Florastor: 250 mg, Oral, [...] Daily, 60 Cap, 0 Refill(s) Flonase: 1 [place], Nostrils Both, Daily, 0 Refill(s) Florastor: 250 [...] = 1 Cap, Oral, Daily Flonase 1 [place], Nostrils Both, Daily Florastor 250 mg, Oral, [...] Oral, Daily fluticasone 0.05% nasal spray 1 [place], Nostrils Both, Daily furosemide 40 mg tab [...] At risk for sleep apnea / IMO [id number] / Confirmed, Active Problems (17) Angina Arthritis [...] EDT Height Source Stated Height Entry Format [place] Height/Length, SERBIAN (ft) 4 ft Height/Length SERBIAN 11 Inch CLINICALHEIGHT 149.86 cm Type of Weight Measurement. [place] Weight, est lb 245 lb Estimated Clinical Dosing Weight 111.36 kg [place] Body Weight 43 kg Weight Source Stated [...] Apical HR 65 (JUL 26 12:00) 65 ([facility] [place] 12:00) 65 ([facility] [place] [facility] 12:00) Resp Rate 18 (JUL 26 12:00) 18 ([facility] 24 12:00) 18 ([facility] 12:00) SBP H 153 ([facility] 24 12:00) H 153 ([facility] 12:00) H 153 ([facility] 12:00) DBP 81 ([facility] [place] [facility] 12:00) 81 ([facility] 24 12:00) 81 ([facility] [place] 12:00) General: Alert and oriented. Eye: Pupils are equal, round and reactive to light. Neurologic: Normal motor function, No focal deficits, Cranial Nerves II-XII are grossly intact. Results Review Continuous EEG: bilateral temporal slowing Impression and Plan Discussed findings with patient. 1. Continue video EEG monitoring. 2. DVT prophylaxis Electronically signed by [facility] Conversion Ballroom Dance Instructor Cerner at 02/19/2023 6:41 PM CDT documented in this encounter Plan of Treatment Not on file documented as of this encounter Visit Diagnoses Not on filedocumented in this encounter Care Teams Rat Poisoner Relationship Specialty Start Date End Date Marly Kumar NP [address] [place] [id number] PCP - General Nurse Practitioner 09/22/24 documented as of this encounter
--- OUTSIDE RECORDS SUMMARY | 2025-08-23 11:12 | XMS_ITS | Encounter Summary ---
Author Organization [email or web address] ([place], [place], [place], [place]) Address [address] [place] [address] Care Team Providers Care Guide Visitor Name Role Phone Marly Kumar NP Primary Care Provider [phone] Encounter Details Date Type Department Care Team (Late st Contact Info) Description 07/28/2020 Transcribed Document [facility] [place] [facility] [place] [address] ProviderMiya MD [address] [place] [address] [phone] Social History Tobacco Use Types Packs/Day Years [...] Program: : Prefer to use home pharmacy [facility] PHARMACIST-MEDICATION RECON - 07/28/2020 12:50 EDT documented in this encounter Plan of Treatment Not on file documented as of this encounter Visit Diagnoses Not on filedocumented in this encounter Care Teams Guide Visitor Relationship Specialty Start Date End Date Marly Kumar, DUNG [address] [place] [id number] PCP - General Nurse Practitioner 09/22/24 documented as of this encounter
--- OUTSIDE RECORDS SUMMARY | 2025-08-23 11:12 | XMS_ITS | Encounter Summary ---
Author Organization [employer] ([place], [place], [place], [place]) Address [address] [place] [address] Care Team Providers Care Executive Director Of Nursing Name Role Phone Marly Kumar BARK SKINNER Primary Care Provider [phone] Encounter Details Date Type Department Care Team (Late st Contact Info) Description 07/28/2020 Transcribed Document [facility] [place] [facility] [place] [address] ProviderMiya MD [address] [place] [address] [phone] Social History Tobacco Use Types Packs/Day Years [...] up with Dr. Duong in 6 months. /[id number] MD RAPHAEL Esquivel/AQ / TAF / MODL /[id number] documented in this encounter Plan of Treatment Not on file documented as of this encounter Visit Diagnoses Not on filedocumented in this encounter Care Teams Executive Director Of Nursing Relationship Specialty Start Date End Date Marly Kumar NP [address] [place] [address] PCP - General Nurse Practitioner 09/22/24 documented as of this encounter
--- OUTSIDE RECORDS SUMMARY | 2025-08-23 11:12 | XMS_ITS | Referral Summary ---
Author Organization [employer] ([place], [place], [place], [place]) Address [address] [place] [address] Care Team Providers Care Drying And Winding Supervisor Name Role Phone Marly Kumar GLASS INSTALLER TECHNICIAN Primary Care Provider [phone] Allergies Active Allergy Reactions Criticality Noted Date [...] on file Medical Devices Implanted Type Area Developmental Electronics Assembler Device Identifier Shelf Expiration Date Model / Serial / Lot Iol Uv Clareon +21.5 [id number] - [id number] Implanted:Qty: 1 on 09/22/2024 by Urmila So MD at [facility] IMPLANTS Left: Eye GUS 09/24/2027 [id number] / [id number] / Iol Uv Clareon +22.0 [id number] - [id number] Implanted:Qty: 1 on 10/06/2024 by Urmila So MD at [facility] IMPLANTS Right: Eye GUS 08/05/2027 [id number] / [id number] / Insurance MEDICARE PART B ONLY MEDICAID OF [place] Care Teams Drying And Winding Supervisor Relationship Specialty Start Date End Date Marly Kumar NP [address] [place] [address] PCP - General Nurse Practitioner 09/22/24
--- OUTSIDE RECORDS SUMMARY | 2025-08-23 11:12 | XMS_ITS | Clinical Summary ---
Author Organization [facility] Address [address] [place] [address] Care Team Providers Care Organ Recovery Coordinator Name Role Phone Marly Kumar SURFACE SHIP USW SUPERVISOR Primary Care Provider [phone] Allergies Active Allergy Reactions Criticality Noted Date [...] MOUTH BEFORE each MEAL Active nystatin (MYCOSTATIN) 131752 UNIT/GM cream Apply 2 applications topically daily [...] 3 Active bisoprolol (ZEBeta) 5 MG tablet TAKE 1 TABLET BY MOUTH DAILY 90 tablet Active bisoprolol (ZEBeta) 5 MG tablet Take 1 tablet by mouth Daily. 90 tablet 025 2024 Discontinued Active Problems Problem Noted Date Diagnosed Date Has a tremor 07/06/2024 Hospital discharge follow-up 07/06/2024 Assessment & Plan (07/06/2024 11:01 AM EDT): [facility] 06/30/2024 ER records reviewed. Patient was dehydrated [...] Encounters Date Type Department Care Team Description 08/16/[address] [place] [address] Kailey Porras, SURFACE SHIP USW SUPERVISOR 07/28/[address] [place] [address] Kailey Porras, SURFACE SHIP USW SUPERVISOR Med Refill 07/21/[address] [place] [address] Dinorah Christiansen MD 07/05/2025 12:30 PM EDT Clinical Support [address] [place] [address] 07/05/2025 Travel 06/30/[address] [place] [address] Dinorah Christiansen MD 06/21/2025 12:45 PM EDT Clinical Support No Requirements [address] [place] [address] Automatic implantable cardiac defibrillator in situ [Z95.810] (Primary Dx) 06/21/2025 12:45 PM EDT Office Visit [address] [place] [address] Kailey Porras, SURFACE SHIP USW SUPERVISOR Automatic implantable cardiac defibrillator in situ (Primary Dx); Atherosclerosis of [place] coronary artery of [place] heart with stable angina pectoris; Hospital discharge follow-up 06/21/2025 Travel 06/19/[address] [place] [address] Dinorah Christiansen MD Waespe, Cristen K, MD- HOSPITAL FOLLOW UP 06/13/2025 2:15 PM EDT Office Visit [address] [place] [address] Kailey Porras, SHAKIRA Atherosclerosis of [place] coronary artery of [place] heart with stable angina pectoris; Automatic implantable cardiac defibrillator in situ; Localized edema 06/13/2025 Travel 06/12/2025 Telephone [facility] [address] [place] [address] Dinorah Christiansen MD 06/09/2025 Refill [facility] [address] [place] [address] Dinorah Christiansen MD Med Refill 06/05/2025 Telephone [facility] [address] [place] [address] Kailey Porras APRN 06/01/2025 7:58 AM EDT - 06/01/2025 11:59 PM EDT Hospital Encounter [facility] [address] [place] [address] [address] [place] [address] Elevated troponin; Coronary artery disease involving [place] coronary artery of [place] heart without angina pectoris Discharge Disposition: Home or Self Care 05/30/2025 Telephone [facility] [address] [place] [address] Dinorah Christiansen MD 05/23/2025 Patient rounding ([facility] only) [facility] [address] [place] [address] Dinorah Christiansen MD from Last 3 Months [...] no 04/06/2025 Feels Threatened by Someone no 06/0 03/2025 Does Anyone Try to Keep You [...] Description 09/11/2025 2:00 PM EST Office Visit [facility] [address] [place] [address] Nereida Ambrose APRN [address] [place] [address] 09/11/2025 2:00 PM EST Clinical Support No Requirements [facility] [address] [place] [address] Health Maintenance Due Date Last Done Comments LIPID PANEL 1953 MAMMOGRAM 1993 COLOGUARD 1998 COLON CANCER SCREENING 5 YEA R SIGMOIDOSCOPY 1998 COLONOSCOPY 1998 COLORECTAL CANCER SCREENING 1998 CT COLONOGRAPHY 1998 FECAL OCCULT BLOOD TEST 1998 FIT Testing (1 year) 1998 ANNUAL WELLNESS VISIT 05/23/2024 HEPATITIS C SCREENING 05/23/2024 INFLUENZA VACCINE 06/02/2025 09/08/2024, , 08/11/2014, Additional history exists COVID-19 Vaccine ( - 2024-2 6 season) 2025 09/09/2021, 12/05/2020, 11/15/2020 DXA SCAN 09/27/2026 09/27/2024 TDAP/TD VACCINES (3 - Td or Tdap) 05/10/2035 025, 08/07/2023 Pneumococcal Vaccine 50+ Completed 05/17/2024 ZOSTER VACCINE Completed 12/28/2024, 09/26/2024 Procedures Procedure Name Priority Date/Time Associated Diagnosis Comments REMOTE DEVICE CHECK 08/16/2025 2 :02 AM EDT ECG 12-LEAD Routine 06/21/2025 1:51 PM EDT Atherosclerosis of [place] coronary artery of [place] heart with stable angina pectoris Hospital discharge follow-up SCANNED EKG 06/19/2025 SCANNED - LABS 06/19/2025 SCANNED - IMAGING 06/19/2025 OUTSIDE NON-INVASIVE CARDIOLOGY STUDY Routine 06/01/2025 7:58 AM EDT Elevated troponin Coronary artery disease involving [place] coronary artery of [place] heart without angina pectoris from Last 3 Months Results * Remote Device Check (08/16/2025 2:02 AM EDT) Date Time Interrogation Session [id number] [facility] Type Interrogation Session Remote Scheduled [facility] Implantable Pulse Generator Animal Maintenance Supervisor [employer] [facility] Implantable Pulse Generator Type ICD [facility] Implantable Pulse Generator Model [id number] Kan(ABRAHAN) [facility] Implantable Pulse Generator Serial Number [id number] [facility] Implantable Pulse Generator Implant Date [id number] [facility] Battery Remaining Percentage 69.00 % [facility] [employer] [facility] Battery Remaining Longevity 74.0 mo [facility] [employer] [facility] Battery Voltage 2.980 [facility] [place] [employer] [facility] Battery SENIOR INFORMATION DEVELOPER Trigger 2.620 [facility] Battery Status Middle of Service [facility] Capacitor Charge Time 8.600 [facility] Jus Statistic RA Percent Paced 17.00 [facility] Jus Statistic RV Percent Paced 1.00 [facility] Atrial Tachy Statistic AT/AF [place] Percent 0.00 [facility] Lead Channel RA Sensing Intrinsic Amplitude 3.000 [facility] Lead Channel Setting RA Sensing Sensitivity 0.30 [facility] Lead Channel RA Impedance Value 440 [facility] Lead Channel RA Pacing Threshold Amplitude 0.500 [facility] Lead Channel RA Pacing Threshold Pulse Width 0.5 [facility] Lead Channel RA Measurements Date and Time [id number] [facility] Lead Channel Setting RA Pacing Amplitude 2.000 [facility] [employer] [facility] Lead Channel Setting RA Pacing Pulse Width 0.5 [facility] [employer] [facility] Lead Channel RV Sensing Intrinsic Amplitude 11.400 [facility] Lead Channel Setting RV Sensing Sensitivity 0.50 [facility] Lead Channel RV Impedance Value 730 [facility] Lead Channel Setting RV Pacing Amplitude 2.500 [facility] [employer] [facility] Lead Channel Setting RV Pacing Pulse Width 0.5 [facility] Jus Setting Mode (NBG Code) DDDR [facility] Jus Setting Lower Rate Limit 60 [facility] Jus Setting AT Mode Switch Rate 180 [facility] Jus Setting Maximum Tracking Rate 90 [facility] Jus Setting Maximum Sensor Rate 110 [facility] Jus Setting PAV Delay 250 [facility] Jus Setting REY Delay 250 [facility] Therapy Statistic Recent Shocks Delivered 0 [facility] Therapy Statistic Recent Shocks Aborted 0 [facility] Therapy Statistic Recent ATP Delivered 0 [facility] SHOCK MEASURED IMPEDANCE 62 [facility] Lead Channel Setting RA Sensing Polarity Bipolar [facility] Lead Channel Setting RV Sensing Polarity Bipolar [facility] Lead Channel Setting RA Pacing Polarity Bipolar [facility] Lead Channel Setting RV Pacing Polarity Bipolar [facility] Lead Channel RA Pacing Threshold Polarity Bipolar [facility] Lead Channel RV Pacing Threshold Polarity Bipolar [facility] Zone Setting Type Category VT [facility] IDC RATE 1 141 [facility] Zone Setting Status On [facility] Zone ID 1 [facility] Zone Setting Type Category VT [facility] IDC RATE 1 171 [facility] THERAPIES 4 x Burst+Scan,25.0J,3 4.0J,40.0J x 2 [facility] Zone Setting Status On [facility] Zone ID 2 PSYCHIATRIC Zone Setting Type Category VF [facility] IDC RATE 1 222 [facility] THERAPIES 30.0J,40.0J,40.0J x 4 [facility] Zone Setting Status On [facility] Zone ID 3 [facility] 08/16/2025 2:02 AM EDT us Dinorah Christiansen MD CV IMPLANTABLE CARDIAC DEVIC E Final Result PSYCHIATRIC * ECG 12-LEAD (06/21/2025 1:51 PM EDT) [...] of the chest pain episodes she wentto [facility] ER. Dr. Christiansen was consulted, [...] doses, Disp: 25 tablet, Rfl:5 nystatin (MYCOSTATIN) 163609 UNIT/GM cream, Apply 2 applicationstopically daily to [...] Content: Thought content normal. Physical Exam Results -[facility] ER records ECG 12 Lead [...] defibrillator in situ (Primary) 2. Atherosclerosis of [place] coronary artery of [place] heart with stableangina pectoris - ECG 12 Lead 3. Hospital discharge follow-up - ECG 12 Lead Other orders - bisoprolol (ZEBeta) 5 MG tablet; Take 1 tablet by mouth Daily.Dispense: 90 tablet; Refill: 0 Assessment & Plan -[facility] ER records reviewed -ICD check; [...] Then Oct as scheduled. Patient or patient tour sales representative verbalized consent for the use ofAmbient [...] - Final ECG * ECG Scan (06/19/2025) Kailey Porras APRN ECG ORDERABLES Fin al Result * IMAGING SCANNED (06/19/2025) Anatomical Region Laterality Modality Radiographic Dayanara ging Kailey Porras APRN IMG DIAGNOSTIC IMAG ING ORDERABLES Final Result * LABS SCANNED (06/19/2025) Kailey Porras APRN LAB BLOOD ORDERABLE S Final Result * External Stress Procedure (06/01/2025 7:58 AM EDT) Narrative 06/01/2025 7:58 AM EDT This procedure was auto-finalized with no dictation required. Procedure Note 06/01/2025 This procedure was auto-finalized with no dictation required. Dinorah Christiansen MD CV CARDIAC SERVICES ORDERABL ES Final Result from Last 3 Months Insurance MEDICARE B ONLY MEDICAID [place] Care Teams Organ Recovery Coordinator Relationship Specialty Start Date End Date Marly Kumar APRN [address] [place] [address] PCP - General Family Medicine 07/06/24
--- OUTSIDE RECORDS SUMMARY | 2025-08-23 11:12 | XMS_ITS | Clinical Summary ---
Author Organization [employer] ([place], [place], [place], [place]) Address [address] [place] [address] Care Team Providers Care Airborne Mission Systems Name Role Phone Marly Kumar LOG WASHER Primary Care Provider [phone] Allergies Active Allergy Reactions Criticality Noted Date [...] 10/06/2024 Pacemaker 10/06/2024 Other supraventricular tachycardia 10/06/2024 MD (myocardial infarction) 10/06/2024 Gastroesophageal reflux disease 10/06/2024 [...] - Risk 60-74 years 1-dose series) 2013 Falls Risk Screening 11/02/2024 COVID-19 VACCINE ( - 2024- season) 2025 09/09/2021, 12/05/2020, 11/15/2020 Influenza Vaccine (#1) 2025 09/08/2024 Tobacco Cessation Counseling and Screening (12+) 10/06/2025 10/06/2024 DTAP/TDAP/TD VACCINES (3 - T d or Tdap) 05/10/2035 05/10/2025, 08/07/2023 Pneumococcal 50+ years Completed 05/17/2024 Shingles Vaccine (Zoster) Completed 12/28/2024, Medical Devices Implanted Type Area Wicker Worker Device Identifier Shelf Expiration Date Model / Serial / Lot Iol Uv Clareon +21.5 [id number] - [id number] Implanted:Qty: 1 on 09/22/2024 by Urmila So MD at [facility] IMPLANTS Left: Eye GUS 09/24/2027 [id number] / [id number] / Iol Uv Clareon +22.0 [id number] - [id number] Implanted:Qty: 1 on 10/06/2024 by Urmila So MD at [facility] IMPLANTS Right: Eye GUS 08/05/2027 [id number] / [id number] / Insurance MEDICARE PART B ONLY MEDICAID OF [place] Care Teams Airborne Mission Systems Relationship Specialty Start Date End Date Marly Kumar NP [address] [place] [address] PCP - General Nurse Practitioner 09/22/24
--- OUTSIDE RECORDS SUMMARY | 2025-08-23 11:12 | XMS_ITS | Encounter Summary ---
Author Organization [employer] ([place], [place], [place], [place]) Address [address] [place] [address] Care Team Providers Care Gravity Flow Irrigator Name Role Phone Marly Kumar PACKAGE YARNS DRYING MACHINE OPERATOR Primary Care Provider [phone] Encounter Details Date Type Department Care Team (Late st Contact Info) Description 07/27/2020 Transcribed Document [facility] Family Medicine [facility]ly [facility] [place] [address] ProviderMiya MD [address] [place] [id number] Social History Tobacco Use Types Packs/Day Years [...] EEG-video monitoring was performed using the 32-channel [employer] monitoring system. The seizure detection computer was [...] noted suggestive of mild diffuse cerebral dysfunction. /[id number] MD RAPHAEL Esquivel/AQ / RAPHAEL / MODL /[id number] documented in this encounter Plan of Treatment Not on file documented as of this encounter Visit Diagnoses Not on filedocumented in this encounter Care Teams Gravity Flow Irrigator Relationship Specialty Start Date End Date Marly Kumar, DUNG [address] [place] [address] PCP - General Nurse Practitioner 09/22/24 documented as of this encounter
--- OUTSIDE RECORDS SUMMARY | 2025-08-23 11:13 | XMS_ITS | Encounter Summary ---
Author Organization [employer] ([place], [place], [place], [place]) Address [address] [place] [address] Care Team Providers Care Origination Specialist Name Role Phone Marly Kumar PAINT MAKER Primary Care Provider [phone] Encounter Details Date Type Department Care Team (Late st Contact Info) Description 07/28/2020 Transcribed Document [facility] Family Medicine Count includes the [facility] [place] [address] ProviderMiya MD [address] [place] [id number] Social History Tobacco Use Types Packs/Day Years [...] On: 07/28/2020 13:07 EDT by JENNIFER TRUJILLO RN-Fur Dry Cleaner Final Discharge Planning Discharge Arrangements : Patient Post-Acute Information Patient Name: RENNY VILLA Gender: Female : 51 Age: 64 Years No Post-Acute Placement(s) Listed No Post-Acute Service(s) Listed No [place] Referral(s) Listed Patient Offered Choice/Affiliations Explained : No Discharge Transportation Arrangement Cmt : [place] transportation Follow Up Appointment Scheduled : No (Comment: List of appointments sent to Patient Access Center [JENNIFER TRUJILLO RN-Fur Dry Cleaner - 07/28/2020 13:07 EDT] ) Is Patient High/Moderate Readmission Risk? : No Patient/Family Notified of Plan : Yes Is Patient Ready for Discharge? : Yes Physician Notified Patient is Ready for Discharge? : Yes Discharge To Care Management : SNF with Medicare Certification-03 JENNIFER TRUJILLO RN-Fur Dry Cleaner - 07/28/2020 13:07 EDT Final Narrative Note Final Narrative Note : Discharged back to [facility]. Transportation by [place] Transport JENNIFER TRUJILLO RN-Fur Dry Cleaner - 07/28/2020 13:07 EDT documented in this encounter Plan of Treatment Not on file documented as of this encounter Visit Diagnoses Not on filedocumented in this encounter Care Teams Origination Specialist Relationship Specialty Start Date End Date Marly Kumar, DUNG [address] [place] [address] PCP - General Nurse Practitioner 09/22/24 documented as of this encounter
--- OUTSIDE RECORDS SUMMARY | 2025-08-23 11:13 | XMS_ITS | Encounter Summary ---
Author Organization [facility] Address [address] [place] [address] Care Team Providers Care Marketing Community Liaison Name Role Phone Marly Kumar SHAKIRA Primary Care Provider [phone] Encounter Details Date Type Department Care Team (Late st Contact Info) Description 08/16/2025 Telephone [facility] [address] [place] [address] Kailey Porras APRN [address] [place] [address] Social History Tobacco Use Types [...] encounter Miscellaneous Notes * Telephone Encounter - Miryam Blanton RegSched Rep - 08/16/2025 10:17 AM EDT LVM FOR PT TO CALL BACK APPT NEEDS RESCHEDULED PROVIDER HAD AN EMERGENCY. TRANSFER TO OFFICE IF PT CALLS BACK. THANKS. documented in this encounter Plan of Treatment Upcoming Encounters Date Type Department Care Team (Late st Contact Info) Description 09/11/2025 2:00 PM EST Office Visit [facility] [address] [place] [address] [place] [address] Nereida Ambrose APRN [address] [place] [address] 09/11/2025 2:00 PM EST Clinical Support No Requirements [facility] [address] [place] [address] [address] [place], [place] [address] documented as of this encounter Visit Diagnoses Not on filedocumented in this encounter Care Teams Marketing Community Liaison Relationship Specialty Start Date End Date Marly Kumar APRN [address] [place] [address] PCP - General Family Medicine 07/06/24 documented as of this encounter
--- OUTSIDE RECORDS SUMMARY | 2025-08-23 11:13 | XMS_ITS | Encounter Summary ---
Author Organization [employer] ([place], [place], [place], [place]) Address [address] [place] [address] Care Team Providers Care Cloth Measurer Name Role Phone Marly Kumar TETRYL BLENDER OPERATOR Primary Care Provider [phone] Encounter Details Date Type Department Care Team (Late st Contact Info) Description 07/28/2020 Transcribed Document [facility] Family Medicine [facility] [place] [address] ProviderMiya MD [address] [place] [id number] Social History Tobacco Use Types Packs/Day Years [...] EEG-video monitoring was performed using the 32-channel [employer] monitoring system. The seizure detection computer was [...] may be more prominent on the right. /[id number] MD RAPHAEL Esquivel/AQ / TAF / MODL /[id number] Electronically signed by Klaus Sprague Conversion Fitness And Wellness Director Ángelaner at 02/19/2023 6:56 PM CDT documented in this encounter Plan of Treatment Not on file documented as of this encounter Visit Diagnoses Not on filedocumented in this encounter Care Teams Cloth Measurer Relationship Specialty Start Date End Date Marly Kumar, DUNG [address] [place] [address] PCP - General Nurse Practitioner 09/22/24 documented as of this encounter
--- OUTSIDE RECORDS SUMMARY | 2025-08-23 11:13 | XMS_ITS | Encounter Summary ---
Author Organization [employer] ([place], [place], [place], [place]) Address [address] [place] [address] Care Team Providers Care Freight Traffic Consultant Name Role Phone Marly Kumar NP Primary Care Provider Encounter Details Date Type Department Care Team (Late st Contact Info) Description 07/28/2020 Transcribed Document [facility] [place] [address] ProviderMiya MD [address] [place], [place] [address]691 Social History Tobacco Use Types Packs/Day Years [...] on filedocumented in this encounter Care Teams Freight Traffic Consultant Relationship Specialty Start Date End Date Marly Kumar NP [address] [place] [address] PCP - General Nurse Practitioner 09/22/24 documented as of this encounter
--- OUTSIDE RECORDS SUMMARY | 2025-08-23 11:14 | XMS_ITS | Encounter Summary ---
Author Organization [facility] Address [address] [place] [id number] Care Team Providers Care Manager Image Name Role Phone Marly Kumar SHAKIRA Primary Care Provider [phone] Reason for Visit * Reason Comments Med Refill Encounter Details Date Type Department Care Team (Late st Contact Info) Description 07/28/2025 Refill [facility] [address] [place] [address] Kailey Porras APRN [address] [place] [address] Med Refill Social History Tobacco Use [...] Description 09/11/2025 2:00 PM EST Office Visit [facility] [address] [place] [address] Nereida Ambrose APRN [address] [place] [address] 09/11/2025 2:00 PM EST Clinical Support No Requirements [facility] [address] [facility] [place] [address] documented as of this encounter Visit Diagnoses Not on filedocumented in this encounter Care Teams Manager Image Relationship Specialty Start Date End Date Marly Kumar APRN [address] [place] [address] PCP - General Family Medicine 07/06/24 documented as of this encounter
--- OUTSIDE RECORDS SUMMARY | 2025-08-23 11:14 | XMS_ITS | Encounter Summary ---
Author Organization [facility] Address [address] [place] [address] Care Team Providers Care Trucking Contractor Name Role Phone Jessie Payne TRACTOR ENGINE MECHANIC Unavailable [phone] Marly Kumar TRACTOR ENGINE MECHANIC Primary Care Provider [phone] Encounter Details Date Type Department Care Team (Latest Contact Info) Description 07/11/2025 Travel Social History Tobacco Use Types Packs/Day [...] drink first t zander in the morning (EYE-SCREEN DOOR MAKER) to steady your nerves or to get [...] Time PHQ-9 Depression Total Score: 0 07/11/20 25 2:47 PM EDT A fall risk assessment has been complete d for the patient 07/11/2025 2:47 PM EDT A Body Mass Index follow-up plan has been documented for the patient 07/14/2025 11:50 AM EDT documented as of this encounter Care Teams Trucking Contractor Relationship Specialty Start Date End Date Marly Kumar APRN [address] [place] [address] PCP - General 06/09/25 Jessie Payne APRN [address] [place] [address] 08/07/23 documented as of this encounter
--- OUTSIDE RECORDS SUMMARY | 2025-08-23 11:14 | XMS_ITS | Encounter Summary ---
Author Organization [facility] Address [address] [place] [address] Care Team Providers Care Commercial Appraiser Name Role Phone Marly Kumar APRN Primary Care Provider [phone] Encounter Details Date Type Department Care Team (Late st Contact Info) Description 07/21/2025 Telephone [facility] [address] [place] [address] Dinorah Christiansen MD [address] [place] [address] Social History Tobacco Use Types Packs/Day [...] Telephone Encounter - Yulissa Queen RN - 07/25/2025 8:51 AM EDT Spoke with Leeanne Perkins, ( verbal release) and related written note of Dr. Christiansen. * Telephone Encounter - Dinorah Christiansen MD - 07/24/2025 2:00 PM EDT That does not sound true to me. I was not there and have not been notified of any such events. My has not notified me of any events similar either. Was just done at my 's office? Otherwise from my standpoint nothing like this occurred * Telephone Encounter - Bridgette Zepeda RN - 07/21/2025 11:03 AM EDT Called Leeanne (daughter) and listed on verbal. Leeanne states that her Mother had her nerve stimulator test on the and that Dr Christiansen and a nurse name Darby was with her. States that when he done the left side, her heart stopped and Dr Christiansen had to pound her heart to get it to start back. Leeanne is wondering about this event and if what her mother told her was factual. Instructed thatI would send this message to Dr Christiansen and will let her know what I find out. * Telephone Encounter - Peyton Zimmerman RegSched Rep - 07/21/2025 9:49 AM EDT Leeanne came into office with questions about patient's previous cardiac episodes. She is asking for call back from provider. documented in this encounter Plan of Treatment Upcoming Encounters Date Type Department Care Team (Late st Contact Info) Description 09/11/2025 2:00 PM EST Office Visit [facility] [address] [place] [address] Nereida Ambrose APRN [address] [place] [address] 09/11/2025 2:00 PM EST Clinical Support No Requirements [facility] [address] [place] [address] documented as of this encounter Visit Diagnoses Not on filedocumented in this encounter Care Teams Commercial Appraiser Relationship Specialty Start Date End Date Marly Kumar APRN [address] [place] [id number] PCP - General Family Medicine 07/06/24 documented as of this encounter
--- OUTSIDE RECORDS SUMMARY | 2025-08-23 11:14 | XMS_ITS | Encounter Summary ---
Author Organization Healthcare Address [address] [place] [address] Care Team Providers Care Holter Scanning Technician Name Role Phone Jessie Payne AIR DEFENSE ARTILLERY OFFICER Unavailable [phone] Marly Kumar AIR DEFENSE ARTILLERY OFFICER Primary Care Provider [phone] Encounter Details Date Type Department Care Team [...] drink first t zander in the morning (EYE-DIRECTOR VIDEO) to steady your nerves or to get [...] No 06/30/2025 10:56 AM SEANT Adela Giraldo 2. Non-Specific Active Suicidal Thoughts [...] documented as of this encounter Care Teams Holter Scanning Technician Relationship Specialty Start Date End Date Marly Kumar APRN [address] [place] [address] PCP - General 06/09/25 Jessie Payne APRN [address] [place] [address] 08/07/23 documented as of this encounter
--- OUTSIDE RECORDS SUMMARY | 2025-08-23 11:14 | XMS_ITS | Encounter Summary ---
Author Organization Healthcare Address [address] [place] [address] Care Team Providers Care Coal And Ash Supervisor Name Role Phone Pcp, No Primary Care Provider Unavailabl e Jessie Payne RECYCLING COLLECTIONS DRIVER Unavailable [phone] Marly Kumar RECYCLING COLLECTIONS DRIVER Primary Care Provider [phone] Reason for Referral * Consultation (Routine) - Closed Specialty Diagnoses / Procedures Referred By Contact Referred To Contact Physical Medicine and Rehabilitation Diagnoses Numbness Numbness and tingling Carpal tunnel syndrome, bilateral Cynthia Garay MD [address] [place] [address] [place] [address] Phone: tel:[phone] fax:[phone] [facility] [address] [place] [address] Phone: tel: fax: Referral ID Status Reason Start Date Expiration Date V isits Requested Visits Authorized [id number] Closed Specialty Services Required 06/02/2025 12/02/2026 1 1 Encounter Details Date Type Department Care Team (Late st Contact Info) Description 06/02/2025 [facility] [address] [place] [address] Cynthia Garay MD [address] [facility] [address] [place] [address] Numbness (Primary Dx); Numbness and tingling; [...] drink first t zander in the morning (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 (5 years old or older) Answer Entry Date Author No 08/08/2023 5:39 PM EDT Kevin Isidro RN documented in this encounter Plan of Treatment Scheduled Referrals Name Type Priority Associated Diagnoses [...] documented as of this encounter Care Teams Coal And Ash Supervisor Relationship Specialty Start Date End Date Pcp, No [address] [place] [address] PCP - General Family Medicine 08/07/23 06/08/25 Marly Kumar APRN [address] [facility] [place] [address] PCP - General 06/09/25 Jessie Payne APRN [address] [place] [address] 08/07/23 documented as of this encounter
[2025-08-23 11:41] LABS: Albumin Level 3.8 g/dl (3.5-5.0); Chloride 104 mmol/L (98-107); Sodium 139 mmol/L (136-145)
[2025-08-23 11:43] LABS: Blood Urea Nitrogen 26 mg/dl (7-17); Creatinine Clearance Estimated 60 mL/min (50-200); Creatinine,Serum 0.90 mg/dl (0.52-1.04); Estimated Glomerular Filt Rate 62 ml/min (>60); GFR (African American) 74 ML/MIN (>60); Potassium 3.7 mmoL/L (3.5-5.1)
[2025-08-23 11:44] LABS: Alanine Aminotransferase 24 U/L (12-78); Albumin/Globulin Ratio 1.3 (1.1-1.8); Anion Gap 8.7 mEq/L (5-15); Aspartate Amino Transferase 39 U/L (14-36); Calcium 9.1 mg/dl (8.4-10.2); Carbon Dioxide 30 mmol/L (22.0-30.0); Cholesterol 137 mg/dl (140-200); Globulin 2.9 g/dL (1.3-3.2); Glucose 70 mg/dl (74-100); HDL Cholesterol 59 mg/dl (40-60); Total Protein,Serum 6.7 g/dl (6.3-8.2); Triglycerides 127 mg/dl (30-150)
[2025-08-23 11:46] LABS: Alkaline Phosphatase 75 U/L (38-126); Bilirubin,Total 0.4 mg/dl (0.2-1.3)
--- NOTE | 2025-08-23 11:49 | PC.NURSE ---
Pt had CT head wo, iv infiltrated during CTA. Called nurse and she looked at it. Took pt back to room to get another IV
[2025-08-23 11:56] LABS: INR 1.02 (0.9-1.1); Prothrombin Time 11.3 seconds (10.1-12.5)
[2025-08-23 11:59] LABS: Activated Partial Thrombo Time 18.1 seconds (22.8-30.6)
[2025-08-23 12:00] LABS: Troponin I < 0.01 ng/ml (0.00-0.034)
[2025-08-23] MEDS: SODIUM CHLORIDE 0.9% 10ML SYR (RAD ONLY) 10 ML IV (13:16)
[2025-08-23] MEDS: 0.9 % SODIUM CHLORIDE 50 ML VIAL IV (13:16)
[2025-08-23] MEDS: IOPAMIDOL-370 (76%);100ML BOTTLE 130 ML IV (13:16)
[2025-08-23 13:19] LABS: Hematocrit 36.2 % (37.0-47.0); Hemoglobin 11.6 g/dL (12.2-16.2); Immature Granulocytes % 0.9 %; Mean Corpuscular HGB Conc 32.0 g/dL (31.8-35.4); Mean Corpuscular Hemoglobin 29.9 pg (27.0-31.2); Mean Corpuscular Volume 93.3 fl (81-99); Nucleated Red Blood Cells % 0 %; Platelet Count 161 K/mm3 (142-424); Red Blood Count 3.88 M/mm3 (4.20-5.40); Red Cell Distribution Width-SD 45.9 fL; White Blood Count 5.4 K/mm3 (4.8-10.8)
[2025-08-23 13:40] LABS: Microscopic, Urine URINE MICROSCOPIC (MICROSCOPIC)
[2025-08-23 13:44] LABS: Bilirubin,Urine Negative (Negative); Color,Urine YELLOW (Yellow); Glucose,Urine (UA) Negative (Negative); Ketones,Urine Negative (Negative); Leukocyte Esterase,Urine TRACE (Negative); PH,Urine 7.5 (5.0-8.5); Protein,Urine Negative (Negative); Specific Gravity, Urine 1.010 (1.005-1.030); Urobilinogen,Urine 0.2 EU/dl (0.2)
[2025-08-23 13:56] LABS: Amphetamine/Metha Screen,Urine Negative ng/ml (<1000)
[2025-08-23 13:57] LABS: Barbiturates Screen,Urine Negative ng/ml (<200); Benzodiazepines Screen,Urine Negative ng/ml (<200)
[2025-08-23 13:59] LABS: Methadone Screen,Urine Negative ng/ml (<300)
[2025-08-23 14:00] LABS: Opiate Screen,Urine Negative ng/ml (<300)
[2025-08-23 14:01] LABS: Phencyclidine Screen,Urine Negative ng/ml (<25)
--- NOTE | 2025-08-23 14:02 | PC.NURSE ---
Called [facility] to speak with them about this pt for an ischemic stroke. [facility]la is speaking with her now.
--- NOTE | 2025-08-23 14:16 | PC.NURSE ---
pt was accepted to [facility] on the wait list so she will be admiited here until she can be transferred
[2025-08-23 14:33] LABS: Amorphous Sediment,Urine 2+ /lpf; Bacteria,Urine 1+ /lpf
[2025-08-23] MEDS: PROCHLORPERAZINE 10MG/2ML VIAL 10 MG IV (15:02)
[2025-08-23] MEDS: 0.9 % SODIUM CHLORIDE 1000ML 1,000 ML 999 ML IV (15:06)
[2025-08-23] MEDS: MAGNESIUM SULFATE IN WATER 2 GM/50 ML PIGGYBACK IV (15:06)
--- NOTE | 2025-08-23 15:12 | PC.NURSE ---
1510hrs- Provided patient with a water, roast beef sandwich and bag of plain lays baked chips
[2025-08-23 15:23] LABS: Troponin I < 0.01 ng/ml (0.00-0.034)
--- NOTE | 2025-08-23 18:30 | PC.NURSE ---
arrived by w/c from ED
--- NOTE | 2025-08-23 18:53 | PC.NURSE ---
Rn aware of patients temp of 96.5 . Room temp turned up and will recheck it again .
--- NOTE | 2025-08-23 18:56 | P.HP_ITS ---
<Statement entered by Jeremy Huggins MD - 08/25/25 12:56> Agree with plan of care as outlined by the [employer]. History of Present Illness *Admission Date: 08/23/25 *Reason for visit:: Right sided facial weakness *History of present illness: This is a 70-year-old female who has a past medical history significant for CVA with right-sided facial weakness, seizures, arthritis, osteoporosis, MD, migraine, hyperlipidemia, depression, dimension, coronary ar deisy disease, atrial fibrillation, COPD, unspecified congestive heart failure, and obstructive sleep apnea who presents with a chief complaint of right sided facial drooping. Due to patient's symptoms, she presented to the emergency room for evaluation. While in the emergency room, CT scan of the head and neck was negative for any large vessel occlusion. CT scan of the head revealed interval development of a small lacunar infarct in the right thalamus. Patient's case was discussed with [facility] and they have voiced willingness to accept patient for MRI of the brain.Patient is currently on the waiting list. During my evaluation of the patient, she states that she went to bed around 2200 hrs. last night and she had no symptoms. She was awakened at 3 AM and was normal unfortunately, when she awoke at 0500 hrs. she noticed increased right sided facial drooping. She also states she had a headache that was initially 7 out of 10 on the right side and now is down to 5 out of 10. Patient was given migraine cocktail while in the emergency room. She states that she has a history of atrial fibrillation and has a pacemaker defibrillator in place. She was recently evaluated by her primary accounting lecturer (Dr. Christiansen) who recommended she may need another left heart cath. She states that her last left heart cath was greater than 10 years ago and she has cardiac stents. Current EKG reveals a sinus rhythm, QTc of 394, normal axis with T wave inversion in the inferior (lead III)-EKG fails to reveal any ST segment changes consistent with STEMI. Currently troponins are nonresponsive. Patient was complaining of left sternal wall chest pain without any radiation. She is currently denying any lightheadedness, dizziness, diplopia, blurred vision, shortness of breath, dyspnea, fever, chills, rigors, nausea, vomit, diarrhea. Additional pertinent vitals obtained include a red blood cell count of 3.8, hemoglobin 11.6, hematocrit 36.2, BUN of 26, blood glucose of 70, and AST of 39. [facility] Disclaimer: The information contained in this section may have been updated after the patient was seen, as this information can be updated by other users. Medical History , [employer]) Seizure History of pacemaker Arthritis Seizures Renal insufficiency Osteoporosis Heart attack Migraine Hyperlipemia Depression Dementia CHF (congestive heart failure) Afib Surgical History , [employer]) Hx of hysterectomy Hx of lumpectomy Hx of cholecystectomy Family History , [employer]) Diabetes Hyperlipidemia Hypertension Social History (Updated 08/23/25 @ 18:44 by Brook Sherman RN) Smoking Status: Former smoker tobacco type: cigarettes packs per day: 2 second hand exposure: No alcohol intake: never substance use type: other current occupational status: disabled Travel in the last 8 weeks?: None household members: other housing: alf current occupational exposures/hazards: No caffeine: Yes Have you lived/traveled outside US in past 30 days?: No Contact w/someone who lives/traveled outside US past 30 days?: No Exposure to someone with infectious disease in past 14 days?: No Do you have a fever (greater than 100.4 F or 38 C)?: No Have you tested positive for COVID-19?: No Exposed to someone with COVID-19 in past 14 days?: No Do you have a sore throat?: No Do you have a cough?: No Do you have any weakness?: No Do you have any diarrhea?: No Are you experiencing any unusual bleeding?: No Do you have any muscle aches/pain?: No Do you have any abdominal pain?: No Are you experiencing loss of taste or smell?: No Other Medical History Have you received the Flu Vaccine for this season: No Have you received the Pneumonia Vaccine: No Review of Systems Review of Systems Review of systems:: pertinent systems reviewed and negative unless documented below Constitutional Constitutional: Reports headache(s) Eyes Eyes: Reports system reviewed and no additional complaints, except as documented ENT Ears, Nose, Mouth, and Throat: Reports headache(s) *Cardiovascular Cardiovascular: Reports chest pain *Respiratory Respiratory: Reports system reviewed and no additional complaints, except as documented *Gastrointestinal Gastrointestinal: Reports system reviewed and no additional complaints, except as documented *Genitourinary Genitourinary: Reports system reviewed and no additional complaints, except as documented *Musculoskeletal Musculoskeletal: Reports system reviewed and no additional complaints, except as documented Integumentary/Breasts Skin/Breast: Reports system reviewed and no additional complaints, except as documented *Neurologic Neurologic: Reports system reviewed and no additional complaints, except as documented, Reports as per HPI, Reports headache(s) and Reports other (Right- sided facial droop) Psychiatric Psychiatric: Reports system reviewed and no additional complaints, except as documented Endocrine Endocrine: Reports system reviewed and no additional complaints, except as documented Hematologic/Lymphatic Hematologic/Lymphatic: Reports system reviewed and no additional complaints, except as documented Allergic/Immunologic Allergic/Immunologic: Reports system reviewed and no additional complaints, except as documented Meds Home Medications and Allergies Home Medications ?Medication ?Instructions ?Recorded ?Confirmed ?Type atorvastatin 40 mg tablet 40 mg PO DAILY 04/23/1908/03 History omeprazole 40 mg capsule,delayed 40 mg PO DAILY 08/23/25 History release aspirin 81 mg chewable tablet 81 mg PO DAILY 04/24/19 08/23/25 History nitroglycerin 0.4 mg sublingual 0.4 mg sublingual Q5MI [employer] SENIOR SERGEANT PRN Chest 04/24/19 08/23/25 History tablet Pain ondansetron 8 mg disintegrating 8 mg PO Q8HP PRN Nause a 04/24/19 08/23/25 History tablet potassium chloride 20 mEq 20 meq PO BID POTASSIUM SUPP LEMENT 04/24/19 08/23/25 History tablet,extended release(part/cryst) acetaminophen 500 mg tablet 1,000 mg PO BIDP PRN pain 08/08/19 08/23/25 History budesonide-formoterol HFA 160 2 puff inhalation BID 08/23/25 History mcg-4.5 mcg/actuation aerosol inhaler fenofibrate nanocrystallized 145 145 mg PO DAILY 01/2508/23/25 History mg tablet levothyroxine 88 mcg capsule 88 mcg PO DAILY 01/25/25 08/23/25 History loratadine 10 mg tablet 10 mg PO DAILY 01/25/2508/03 History magnesium oxide 400 mg (241.3 mg 400 mg PO DAILY 01/2508/23/25 History magnesium) tablet mirtazapine 30 mg tablet 30 mg PO HS 01/25/25 5 History nystatin 100,000 unit/gram topical 1 applic topical DA MALLORY 01/25/25 08/23/25 History cream quetiapine 25 mg tablet 12.5 mg PO HS 01/25/2508/23 History tizanidine 4 mg tablet 4 mg PO DAILY PRN muscle spa sms 01/25/25 08/23/25 History bisoprolol fumarate 2.5 mg tablet 2.5 mg PO DAILY 04/0308/23/25 History furosemide 40 mg tablet 40 mg PO BID 04/27/25 History ropinirole 1 mg tablet 1 mg PO HS 04/27/25 08/23/25 History lactulose 10 gram/15 mL oral 20 g (30 mL) PO DAILY 30 days 04/28/25 08/23/25 Rx solution #1,200 mL levetiracetam 1,000 mg tablet 1,000 mg PO BID #180 tab s 05/16/25 08/23/25 Rx (Keppra) albuterol sulfate 90 mcg/actuation 2 puff inhalation Q 4HP PRN 08/23/25 08/23/25 History aerosol inhaler (Ventolin HFA) Shortness Of Breath calcium carb-ergocalciferol (vit 1 tab PO DAILY 08/23/25 History D2) 600 mg calcium-200 unit tablet metoclopramide HCl 5 mg tablet 5 mg PO AC 08/23/25 History midodrine 2.5 mg tablet 2.5 mg PO BID 08/23/2508/23 History New Prescriptions to Start Prescriptions: Allergies Allergy/AdvReac Type Severity Reaction Status Date / Time alendronate sodium (From Allergy Unknown I-HIVES Verified 05/16/25 09:52 FOSAMAX) Penicillins (PENICILLINS) Allergy Unknown I-HIVES Verified 05/16/25 09:52 Sulfa (Sulfonamide Allergy Unknown I-HIVES Verified 05/16/25 09:52 Antibiotics) (SULFA (SULFONAMIDE ANTIBIOTICS)) gabapentin Allergy Verified 05/16/25 09:52 Exam Data for Last 24 hours Vital signs and Labs for Last 24 Hours: Temp Pulse Resp BP Pulse Ox O2 Del Method 96.5 F L 69 18 147/85 H 98 Room Air 08/23/25 18:50 08/23/25 18:50 08/23/25 18:50 08/23/25 18:50 08/23/25 18:50 08/23/25 18:50 Laboratory Results - last 24 hr 08/23/25 11:18: PT 11.3, INR 1.02, APTT 18.1 L, Sodium 139, Potassium 3.7, Chloride 104, Carbon Dioxide 30, Anion Gap 8.7, BUN 26 H, Creatinine 0.90, Estimated Creat Clear 60, Estimated GFR 62, Est GFR ( Amer) 74, Glucose 70 L, Calcium 9.1, Total Bilirubin 0.4, AST 39 H, ALT 24, Alkaline Phosphatase 75, Troponin I < 0.01, Total Protein 6.7, Albumin 3.8, Globulin 2.9, Albumin/Globulin Ratio 1.3, Triglycerides 127, Cholesterol 137 L, LDL Cholesterol Direct 50.43 L, VLDL Cholesterol 25, HDL Cholesterol 59, Cholesterol/HDL Ratio 2.3, Plasma/Serum Alcohol < 10 08/23/25 13:00: WBC 5.4, RBC 3.88 L, Hgb 11.6 L, Hct 36.2 L, MCV 93.3, MCH 29.9, MCHC 32.0, RDW 13.5, Plt Count 161, MPV 11.7 H, Neut % (Auto) 43.2, Lymph % (Auto) 45.1, [place] % (Auto) 8.2, Eos % (Auto) 2.0, Baso % (Auto) 0.6, Neut # (Auto) 2.3, Lymph # (Auto) 2.4, [place] # (Auto) 0.4, Eos # (Auto) 0.1, Baso # (Auto) 0.0 08/23/25 13:36: Urine Color Yellow, Urine Appearance Clear, Urine pH 7.5, Ur Specific [place] 1.010, Urine Protein Negative, Urine Glucose (UA) Negative, Urine Ketones Negative, Urine Blood Negative, Urine Nitrate Negative, Urine Bilirubin Negative, Urine Urobilinogen 0.2, Ur Leukocyte Esterase Trace, Urine RBC None, Urine WBC 3-5, Ur Squamous Epith Cells 5-10, Amorphous Sediment 2+, Urine Bacteria 1+, Urine Opiates Screen Negative, Urine Methadone Screen Negative, Ur Barbituates Screen Negative, Ur Phencyclidine Scrn Negative, Ur Amphetamines Screen Negative, U Benzodiazepines Scrn Negative, Urine Cocaine Screen Negative, U Marijuana (THC) Screen Negative 08/23/25 14:48: Troponin I < 0.01 I & O for Last 24 hours: Intake & Output 08/20/25 08/21/25 08/22/25 08/23/25 23:59 23:59 23:59 23:59 Intake Total 1050 / 1050 Balance 1050 / 1050 Weight 80.428 kg Constitutional Constitutional: no acute distress, obese and cooperative *Routine HEENT Exam Head: Present normocephalic and atraumatic Eye: Present EOMI and PERRL ENT: Present mucous membranes moist *Routine Neck Exam Neck: Present supple, full ROM and trachea midline *Routine Respiratory Exam Respiratory: Present CTA bilaterally, normal respiratory effort, able to speak in complete sentences and symmetric chest movement *Routine Cardiovascular Exam Cardiovascular: Present RRR, Normal S1 and Normal S2 *Routine Abdominal Exam Abdominal: Present soft, normoactive bowel sounds and obese *Routine Rectal Exam Rectal:: deferred *Routine Genitalia Exam Genitalia:: deferred *Routine Extremities Exam Extremities: Present full ROM, pulses intact and normal capillary refill Routine Back/Spine/Pelvis Exam Back/Spine: Present full ROM *Routine Skin Exam Skin: Present intact, dry and warm *Routine Neurological Exam Neurological: Present alert, oriented X3 and CN II-XII intact Routine Psychiatric Exam Psychiatric: Present normal affect, normal thought process, cooperative, good insight and good judgment H&P: Result Impressions 70-year-old female who presents with a chief complaint of strokelike symptoms who has a known history of prior stroke and atrial fibrillation Assessment and Plan *Assessment and plan (1) Acute CVA (cerebrovascular accident): Status: Acute Category: Medical Code(s): I63.9 - Cerebral infarction, unspecified (2) Chest pain: Status: Acute Qualifiers: Chest pain type: unspecified Qualified Code(s): R07.9 - Chest pain, unspecified Category: Medical Code(s): R07.9 - Chest pain, unspecified (3) Headache: Status: Acute Qualifiers: Headache chronicity pattern: acute headache Headache type: unspecified Intractability: intractable Qualified Code(s): R51.9 - Headache, unspecified Category: Medical Code(s): R51.9 - Headache, unspecified Plan Assessment: Small right thalamus CVA: Seen on CTA imaging Headache - Patient will require MRI of the brain without contrast - Will continue neurochecks every 4 hours - She is pending transfer to [facility] - Patient is currently on aspirin 81 mg daily, 40 mg of atorvastatin daily, and is absent of any long-term anticoagulation -Patient is currently out of the tPA window - Will allow for permissive hypertension with systolic blood pressures up to 220 for the next 24 to 48 hours Chest pain - EKG is without any findings consistent with STEMI - Will give pain for chest pain - If patient is still here by the a.m. will obtain 2D echo with bubble study Plan: Admit patient to the MedSurg unit Neurochecks every 6 hours Saline lock Vital signs every 4 hours Cardiac diet CBC/BMP daily 40 mg Lovenox subcu daily for DVT prophylax 5 mg Arley p.o. every 4 hours for moderate pain 2 mg morphine IV push every 4 hours as needed severe pain 4 mg Zofran IV push to 8 hours for nausea Full code I have discussed this case with attending physician Dr. Huggins and I look forward to more input
[2025-08-23] MEDS: MIDODRINE HCL 5 MG TABLET 2.5 MG PO (21:42)
[2025-08-23] MEDS: ROPINIROLE 1MG TABLET 1 MG PO (21:42)
[2025-08-23] MEDS: PANTOPRAZOLE 40MG TABLET 40 MG PO (21:43)
[2025-08-23] MEDS: MIRTAZAPINE 15 MG TABLET 30 MG PO (21:43)
[2025-08-23] MEDS: QUETIAPINE 25MG TABLET 12.5 MG PO (21:43)
[2025-08-24] VITALS: PULSE 70
[2025-08-24 04:00] VITALS: BP 120/55; PULSE 117; PULSE 60; RESP 16; TEMP 36.6; O2SAT 94; BMI 33.0
[2025-08-24 06:12] LABS: Hematocrit 35.1 % (37.0-47.0); Hemoglobin 11.1 g/dL (12.2-16.2); Immature Granulocytes % 0.2 %; Mean Corpuscular HGB Conc 31.6 g/dL (31.8-35.4); Mean Corpuscular Hemoglobin 29.6 pg (27.0-31.2); Mean Corpuscular Volume 93.6 fl (81-99); Nucleated Red Blood Cells % 0 %; Platelet Count 150 K/mm3 (142-424); Red Blood Count 3.75 M/mm3 (4.20-5.40); Red Cell Distribution Width-SD 46.1 fL; White Blood Count 4.6 K/mm3 (4.8-10.8)
[2025-08-24 06:30] LABS: Chloride 109 mmol/L (98-107)
[2025-08-24 06:31] LABS: Potassium 3.9 mmoL/L (3.5-5.1); Sodium 138 mmol/L (136-145)
[2025-08-24 06:34] LABS: Anion Gap 7.9 mEq/L (5-15); Blood Urea Nitrogen 20 mg/dl (7-17); Calcium 8.2 mg/dl (8.4-10.2); Carbon Dioxide 25 mmol/L (22.0-30.0); Creatinine Clearance Estimated 61 mL/min (50-200); Creatinine,Serum 0.90 mg/dl (0.52-1.04); Estimated Glomerular Filt Rate 62 ml/min (>60); GFR (African American) 74 ML/MIN (>60); Glucose 94 mg/dl (74-100)
[2025-08-24 07:36] VITALS: BP 167/75; PULSE 73; RESP 18; TEMP 36.7; O2SAT 93
--- NOTE | 2025-08-24 08:34 | P.DS_ITS ---
General Admission date:: 08/23/25 HPI HPI HPI: This is a 70-year-old female who has a past medical history significant for CVA with right-sided facial weakness, seizures, arthritis, osteoporosis, [place], migraine, hyperlipidemia, depression, dimension, coronary artery disease, atrial fibrillation, COPD, unspecified congestive heart failure, and obstructive sleep apnea who presents with a chief complaint of right sided facial drooping. Due to patient's symptoms, she presented to the emergency room for evaluation. While in the emergency room, CT scan of the head and neck was negative for any large vessel occlusion. CT scan of the head revealed interval development of a small lacunar infarct in the right thalamus. Patient's case was discussed with [facility] and they have voiced willingness to accept patient for MRI of the brain.Patient is currently on the waiting list. During my evaluation of the patient, she states that she went to bed around 2200 hrs. last night and she had no symptoms. She was awakened at 3 AM and was normal unfortunately, when she awoke at 0500 hrs. she noticed increased right sided facial drooping. She also states she had a headache that was initially 7 out of 10 on the right side and now is down to 5 out of 10. Patient was given migraine cocktail while in the emergency room. She states that she has a history of atrial fibrillation and has a pacemaker defibrillator in place. 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 Christiansen) who recommended she may need another left heart cath. She states that her last left heart cath was greater than 10 years ago and she has cardiac stents. Current EKG reveals a sinus rhythm, QTc of 394, normal axis with T wave inversion in the inferior (lead III)-EKG fails to reveal any ST segment changes consistent with STEMI. Currently troponins are nonresponsive. Patient was complaining of left sternal wall chest pain without any radiation. She is currently denying any lightheadedness, dizziness, diplopia, blurred vision, shortness of breath, dyspnea, fever, chills, rigors, nausea, vomit, diarrhea. Additional pertinent vitals obtained include a red blood cell count of 3.8, hemoglobin 11.6, hematocrit 36.2, BUN of 26, blood glucose of 70, and AST of 39. Hospital Course Hospital Course Hospital Course: Chaparrita Perkins is a 70-year-old female with medical history significant for CVA (previously right-sided facial weakness) who presented with acute onset right-sided facial drooping since 5 AM on 08/23/2025. Patient has an AICD in place and our facility cannot do MRIs with this, so [facility] was consulted by the ED who graciously except the patient. #Right facial droop #Acute CVA #History of CVA with right-sided facial weakness ? Presented with acute right-sided facial droop with forehead sparing since 5 AM on 08/23/2025. NIHSS score 2. ? Patient has had similar episodes of this in the past, with right-sided facial weakness. She states she has at least had 2 prior episodes of this. Had been on DAPT, currently on aspirin 81 mg. ? CT head shows interval development of right lacunar thalamic infarct. Does not necessarily correlate with right-sided facial droop. CTA head and neck does not show large vessel occlusion. ? Patient does have underlying A-fib, with AICD and pacemaker in place. Not on anticoagulation, patient does not know why. No previous GI bleeds. ? Patient's symptoms remained stable during hospital course. She was given aspirin 81 mg, Plavix 75 mg, atorvastatin 40 mg. ? [facility] grac[facility] accepted patient for further evaluation and management including brain MRI. Patient will be transferred in stable condition. #A-fib with pacemaker ? Patient does have underlying A-fib, with AICD and pacemaker in place. Not on anticoagulation, patient does not know why. No previous GI bleeds. ? Continue home bisoprolol 5 mg. Currently rate controlled. #Hypothyroidism ? Continue home levothyroxine 88 mcg. TSH normal in July. #Anxiety/depression ? Continue home mirtazapine, quetiapine. #HFpEF ? Currently euvolemic, continue Lasix 40 mg twice daily. #Seizure disorder ? Continue home levetiracetam 1000 mg twice daily. #Asthma ? Continue home Advair. #GERD ? Continue home PPI. Exam Data for Last 24 hours Vital signs and Labs for Last 24 Hours: Temp Pulse Resp BP Pulse Ox O2 Del Method 98.1 F 73 18 167/75 H 93 L Room Air 08/24/25 07:36 08/24/25 07:36 08/24/25 07:36 08/24/25 07:36 08/24/25 07:36 08/24/25 07:36 Laboratory Results - last 24 hr 08/23/25 11:18: PT 11.3, INR 1.02, APTT 18.1 L, Sodium 139, Potassium 3.7, Chloride 104, Carbon Dioxide 30, Anion Gap 8.7, BUN 26 H, Creatinine 0.90, Estimated Creat Clear 60, Estimated GFR 62, Est GFR ( Amer) 74, Glucose 70 L, Calcium 9.1, Total Bilirubin 0.4, AST 39 H, ALT 24, Alkaline Phosphatase 75, Troponin I < 0.01, Total Protein 6.7, Albumin 3.8, Globulin 2.9, Albumin/Globulin Ratio 1.3, Triglycerides 127, Cholesterol 137 L, LDL Cholesterol Direct 50.43 L, VLDL Cholesterol 25, HDL Cholesterol 59, Cholesterol/HDL Ratio 2.3, Plasma/Serum Alcohol < 10 08/23/25 13:00: WBC 5.4, RBC 3.88 L, Hgb 11.6 L, Hct 36.2 L, MCV 93.3, MCH 29.9, MCHC 32.0, RDW 13.5, Plt Count 161, MPV 11.7 H, Neut % (Auto) 43.2, Lymph % (Auto) 45.1, Bledsoe % (Auto) 8.2, Eos % (Auto) 2.0, Baso % (Auto) 0.6, Neut # (Auto) 2.3, Lymph # (Auto) 2.4, Bledsoe # (Auto) 0.4, Eos # (Auto) 0.1, Baso # (Auto) 0.0 08/23/25 13:36: Urine Color Yellow, Urine Appearance Clear, Urine pH 7.5, Ur Specific [place] 1.010, Urine Protein Negative, Urine Glucose (UA) Negative, Urine Ketones Negative, Urine Blood Negative, Urine Nitrate Negative, Urine Bilirubin Negative, Urine Urobilinogen 0.2, Ur Leukocyte Esterase Trace, Urine RBC None, Urine WBC 3-5, Ur Squamous Epith Cells 5-10, Amorphous Sediment 2+, Urine Bacteria 1+, Urine Opiates Screen Negative, Urine Methadone Screen Negativ e, Ur Barbituates Screen Negative, Ur Phencyclidine Scrn Negative, Ur Amphetamines Screen Negative, U Benzodiazepines Scrn Negative, Urine Cocaine Screen Negative, U Marijuana (THC) Screen Negative 08/23/25 14:48: Troponin I < 0.01 08/24/25 05:22: WBC 4.6 L, RBC 3.75 L, Hgb 11.1 L, Hct 35.1 L, MCV 93.6, MCH 29.6, MCHC 31.6 L, RDW 13.6, Plt Count 150, MPV 12.1 H, Neut % (Auto) 47.9, Lymph % (Auto) 38.7, Bledsoe % (Auto) 8.9, Eos % (Auto) 3.7, Baso % (Auto) 0.6, Neut # (Auto) 2.2, Lymph # (Auto) 1.8, Bledsoe # (Auto) 0.4, Eos # (Auto) 0.2, Baso # (Auto) 0.0, Sodium 138, Potassium 3.9, Chloride 109 H, Carbon Dioxide 25, Anion Gap 7.9, BUN 20 H, Creatinine 0.90, Estimated Creat Clear 61, Estimated GFR 62, Est GFR ( Amer) 74, Glucose 94 D, Calcium 8.2 L I & O for Last 24 hours: Intake & Output 08/21/25 08/22/25 08/23/25 08/24/25 23:59 23:59 23:59 23:59 Intake Total 1050 / 1170 120 / 120 Output Total 0 / 0 Balance 1050 / 1170 120 / 120 Weight 80.428 kg 76.385 kg Constitutional Constitutional: no acute distress *Routine HEENT Exam Head: Present normocephalic Eye: Present EOMI and PERRL ENT: Present mucous membranes moist *Routine Neck Exam Neck: Present supple; Absent lymphadenopathy *Routine Respiratory Exam Respiratory: Present CTA bilaterally *Routine Cardiovascular Exam Cardiovascular: Present RRR *Routine Abdominal Exam Abdominal: Present soft and normoactive bowel sounds; Absent tenderness *Routine Extremities Exam Extremities: Absent cyanosis, clubbing or edema *Routine Skin Exam Skin: Present warm; Absent rash *Routine Neurological Exam Neurological: Present alert and oriented X3 Comments: Right-sided facial paralysis with forehead sparing. Results Data Completed and Pending Labs on day of discharge: Labs from last 24 hours 08/24/25 08/23/25 08/23/25 05:22 14:48 13:36 WBC 4.6 L RBC 3.75 L Hgb 11.1 L Hct 35.1 L MCV 93.6 MCH 29.6 MCHC 31.6 L RDW 13.6 Plt Count 150 MPV 12.1 H Neut % (Auto) 47.9 Lymph % (Auto) 38.7 Bledsoe % (Auto) 8.9 Eos % (Auto) 3.7 Baso % (Auto) 0.6 Neut # (Auto) 2.2 Lymph # (Auto) 1.8 Bledsoe # (Auto) 0.4 Eos # (Auto) 0.2 Baso # (Auto) 0.0 PT INR APTT Sodium 138 Potassium 3.9 Chloride 109 H Carbon Dioxide 25 Anion Gap 7.9 BUN 20 H Creatinine 0.90 Estimated Creat Clear 61 Estimated GFR 62 Est GFR ( Amer) 74 Glucose 94 D Calcium 8.2 L Total Bilirubin AST ALT Alkaline Phosphatase Troponin I < 0.01 Total Protein Albumin Globulin Albumin/Globulin Ratio Triglycerides Cholesterol LDL Cholesterol Direct VLDL Cholesterol HDL Cholesterol Cholesterol/HDL Ratio Urine Color Yellow Urine Appearance Clear Urine pH 7.5 Ur Specific [place] 1.010 Urine Protein Negative Urine Glucose (UA) Negative Urine Ketones Negative Urine Blood Negative Urine Nitrate Negative Urine Bilirubin Negative Urine Urobilinogen 0.2 Ur Leukocyte Esterase Trace Urine RBC None Urine WBC 3-5 Ur Squamous Epith Cells 5-10 Amorphous Sediment 2+ Urine Bacteria 1+ Urine Opiates Screen Negative Urine Methadone Screen Negative Ur Barbituates Screen Negative Ur Phencyclidine Scrn Negative Ur Amphetamines Screen Negative U Benzodiazepines Scrn Negative Urine Cocaine Screen Negative U Marijuana (THC) Screen Negative Plasma/Serum Alcohol 08/23/25 08/23/25 13:00 11:18 WBC 5.4 RBC 3.88 L Hgb 11.6 L Hct 36.2 L MCV 93.3 MCH 29.9 MCHC 32.0 RDW 13.5 Plt Count 161 MPV 11.7 H Neut % (Auto) 43.2 Lymph % (Auto) 45.1 Bledsoe % (Auto) 8.2 Eos % (Auto) 2.0 Baso % (Auto) 0.6 Neut # (Auto) 2.3 Lymph # (Auto) 2.4 Bledsoe # (Auto) 0.4 Eos # (Auto) 0.1 Baso # (Auto) 0.0 PT 11.3 INR 1.02 APTT 18.1 L Sodium 139 Potassium 3.7 Chloride 104 Carbon Dioxide 30 Anion Gap 8.7 BUN 26 H Creatinine 0.90 Estimated Creat Clear 60 Estimated GFR 62 Est GFR ( Amer) 74 Glucose 70 L Calcium 9.1 Total Bilirubin 0.4 AST 39 H ALT 24 Alkaline Phosphatase 75 Troponin I < 0.01 Total Protein 6.7 Albumin 3.8 Globulin 2.9 Albumin/Globulin Ratio 1.3 Triglycerides 127 Cholesterol 137 L LDL Cholesterol Direct 50.43 L VLDL Cholesterol 25 HDL Cholesterol 59 Cholesterol/HDL Ratio 2.3 Urine Color Urine Appearance Urine pH Ur Specific [place] Urine Protein Urine Glucose (UA) Urine Ketones Urine Blood Urine Nitrate Urine Bilirubin Urine Urobilinogen Ur Leukocyte Esterase Urine RBC Urine WBC Ur Squamous Epith Cells Amorphous Sediment Urine Bacteria Urine Opiates Screen Urine Methadone Screen Ur Barbituates Screen Ur Phencyclidine Scrn Ur Amphetamines Screen U Benzodiazepines Scrn Urine Cocaine Screen U Marijuana (THC) Screen Plasma/Serum Alcohol < 10 DS: Diagnosis Discharge Diagnosis (1) Acute CVA (cerebrovascular accident): Status: Acute Code(s): I63.9 - Cerebral infarction, unspecified (2) Chest pain: Status: Acute Code(s): R07.9 - Chest pain, unspecified Qualifiers: Chest pain type: unspecified Qualified Code(s): R07.9 - Chest pain, unspecified (3) Headache: Status: Acute Code(s): R51.9 - Headache, unspecified Qualifiers: Headache chronicity pattern: acute headache Headache type: unspecified Intractability: intractable Qualified Code(s): R51.9 - Headache, unspecified Meds Home Medications and Allergies Home Medications ?Medication ?Instructions ?Recorded ?Confirmed ?Type atorvastatin 40 mg tablet 40 mg PO HS 04/23/19 5 History omeprazole 40 mg capsule,delayed 40 mg PO DAILY 08/23/25 History release aspirin 81 mg chewable tablet 81 mg PO DAILY 04/24/19 08/23/25 History nitroglycerin 0.4 mg sublingual 0.4 mg sublingual Q5MI [employer] PRN Chest 04/24/19 08/23/25 History tablet Pain acetaminophen 500 mg tablet 1,000 mg PO BIDP PRN pain 08/08/19 08/23/25 History budesonide-formoterol HFA 160 2 puff inhalation BID 08/23/25 History mcg-4.5 mcg/actuation aerosol inhaler fenofibrate nanocrystallized 145 145 mg PO HS 01/25/25 08/24/25 History mg tablet levothyroxine 88 mcg capsule 88 mcg PO DAILY 01/25/25 08/24/25 History loratadine 10 mg tablet 10 mg PO DAILY 01/25/2508/03 History magnesium oxide 400 mg (241.3 mg 400 mg PO DAILY 01/2508/23/25 History magnesium) tablet quetiapine 25 mg tablet 12.5 mg PO HS 01/25/2508/23 History tizanidine 4 mg tablet 4 mg PO DAILY PRN muscle spa sms 01/25/25 08/23/25 History furosemide 40 mg tablet 40 mg PO BID 04/27/25 History ropinirole 1 mg tablet 1 mg PO HS 04/27/25 08/23/25 History levetiracetam 1,000 mg tablet 1,000 mg PO BID #180 tab s 05/16/25 08/23/25 Rx (Keppra) albuterol sulfate 90 mcg/actuation 2 puff inhalation Q 4HP PRN 08/23/25 08/23/25 History aerosol inhaler (Ventolin HFA) Shortness Of Breath calcium carb-ergocalciferol (vit 1 tab PO DAILY 08/23/25 History D2) 600 mg calcium-200 unit tablet midodrine 2.5 mg tablet 2.5 mg PO NEEDED PRN low blood 08/23/25 08/24/25 History pressure bisoprolol fumarate 5 mg tablet 5 mg PO DAILY 08/24/25 08/24/25 History mirtazapine 45 mg tablet 45 mg PO HS 08/24/25 5 History potassium chloride 10 mEq 10 meq PO BID 08/24/2508/24 History tablet,extended release New Prescriptions to Start Prescriptions: Allergies Allergy/AdvReac Type Severity Reaction Status Date / Time alendronate sodium (From Allergy Unknown I-HIVES Verified 05/16/25 09:52 FOSAMAX) Penicillins (PENICILLINS) Allergy Unknown I-HIVES Verified 05/16/25 09:52 Sulfa (Sulfonamide Allergy Unknown I-HIVES Verified 05/16/25 09:52 Antibiotics) (SULFA (SULFONAMIDE ANTIBIOTICS)) gabapentin Allergy Verified 05/16/25 09:52 Discharge Plan Disposition Patient Disposition: Xfer Short-Term Hosp Condition: Fair Discharge Order Discharge Orders: Discharge Order (Routine); Ordered 08/24/25 Ordered By: Jeremy Huggins Follow up Plan Prescriptions/Medication Reconciliation: Continued quetiapine 25 mg tablet 12.5 mg PO HS Patient Comments: take ONE-HALF TABLET BY MOUTH every night FOR SLEEP loratadine 10 mg tablet 10 mg PO DAILY Patient Comments: TAKE ONE TABLET BY MOUTH DAILY budesonide-formoterol 160-4.5 mcg/actuation HFA aerosol inhaler 2 puff inhalation BID fenofibrate nanocrystallized 145 mg tablet 145 mg PO HS Patient Comments: TAKE ONE TABLET BY MOUTH AT BEDTIME levothyroxine 88 mcg capsule 88 mcg PO DAILY Rx Instructions: Take 1 tablet by mouth daily on empty stomach before breakfast tizanidine 4 mg tablet 4 mg PO DAILY PRN (Reason: muscle spasms) Rx Instructions: Take 1/2 to 1 tablet every 6 hours as needed for pain levetiracetam [Keppra] 1,000 mg tablet 1,000 mg PO BID Qty: 180 3RF acetaminophen 500 MG tablet 1,000 mg PO BIDP PRN (Reason: pain) furosemide 40 mg tablet 40 mg PO BID ropinirole 1 mg tablet 1 mg PO HS omeprazole 40 capsule,delayed release(DR/EC) 40 mg PO DAILY atorvastatin 40 MG tablet 40 mg PO HS aspirin 81 MG tablet,chewable 81 mg PO DAILY nitroglycerin 0.4 MG tablet, sublingual 0.4 mg sublingual Q5MINP PRN (Reason: Chest Pain) magnesium oxide 400 mg (241.3 mg magnesium) tablet 400 mg PO DAILY albuterol sulfate [Ventolin HFA] 90 mcg/actuation Hfa Aerosol Inhaler 2 puff INHALATION Q4HP PRN (Reason: Shortness Of Breath) calcium carbonate-vitamin D2 600 mg calcium- 200 unit Tablet 1 tab PO DAILY midodrine 2.5 mg Tablet 2.5 mg PO NEEDED PRN (Reason: low blood pressure) Rx Instructions: do not give last dose of day after 6PM or within 4 hrs of bedtime potassium chloride 10 mEq tablet extended release 10 meq PO BID Patient Comments: TAKE ONE TABLET BY MOUTH TWICE DAILY bisoprolol fumarate 5 mg tablet 5 mg PO DAILY Patient Comments: TAKE 1 TABLET BY MOUTH DAILY mirtazapine 45 mg tablet 45 mg PO HS Patient Comments: TAKE 1 TABLET BY MOUTH EVERY DAY Problem Reconciliation Problems Reviewed?: Yes Patient Discharge Instructions Stand Alone Forms: Transfer Record Patient Instructions: DI for Ischemic Stroke Print Language: Citizen Of [place] Providers Primary Care Provider: Marly Kumar Admit Provider: Jeremy Huggins Attending Provider: Jeremy Huggins
[2025-08-24] MEDS: CLOPIDOGREL 75MG TAB 75 MG PO (08:49)
[2025-08-24] MEDS: LEVOTHYROXINE 88MCG (0.088MG) TAB 88 MCG PO (08:50)
[2025-08-24] MEDS: FENOFIBRATE 134MG CAPSULE 134 MG PO (08:50)
[2025-08-24] MEDS: ASPIRIN 81MG CHEWABLE TABLET 81 MG PO (08:50)
[2025-08-24] MEDS: MAGNESIUM OXIDE 400MG TABLET 400 MG PO (08:51)
[2025-08-24] MEDS: LORATADINE 10MG TABLET 10 MG PO (08:51)
[2025-08-24] MEDS: CALCIUM CARB + VIT D 500MG TAB 500 MG PO (08:51)
[2025-08-24 09:00] VITALS: PULSE 80
--- NOTE | 2025-08-24 09:00 | CA_ITS ---
APPROVED REPORT EXAM: Comprehensive 2D, Doppler, and color-flow Echocardiogram Materials And Processes Manager: Irena Dumont CRT Ht: 5 ft 0 in Wt: 177lbs BSA: 1.77 BP: 147/85 mmHg Indications: COPD, Shortness of Breath, CVA/TIA, Atrial Fibrillation, Diabetes, CAD, Hyperlipidemia, Hypertension/HDD, AICD, old MO, pacer 2D Dimensions LA Volume 46.90 mL LA Volume Index 25.80 mL/m2 (M/F) 16-34 M-Mode Dimensions RVDd 2.41 cm (0.9-2.6) LA Diam 3.75 cm (1.9-4.0) LVDd 4.51 cm (3.5-5.7) LVDs 3.20 cm (3.5-5.7) IVSd 1.41 cm (0.6-1.1) PWd 0.75 cm (0.6-1.1) EF (Teich) 55.90% FS 29.00% EDV (Teich) 92.90 mL TAPSE 2.26 (<1.7) ESV (Teich) 41.00 mL LV Diastology E Decel Time 173 (160-240 msec) E/A Ratio 1.17 MED A' 11.90 cm/s LAT A' 10.00 cm/s Aortic Valve AO Peak GR. 7.80 mmHg Mitral Valve MV A Velocity 94.0 (40-130 cm/s) E/A Ratio 1.17 Tricuspid Valve TR P. Velocity 283.00 cm/s RAP Estimate 10.00 mmHg RVSP 42.10 mmHg Left Ventricle The left ventricle is normal size. Left ventricular systolic function is normal. The left ventricular ejection fraction is within the normal range. There is increased left ventricular wall thickness. There is normal LV segmental wall motion. The left ventricular diastolic function is normal. LVEF is 60%. Right Ventricle The right ventricle is normal size. The right ventricular systolic function is normal. There is a device lead in the right ventricle. Atria The left atrium is moderately dilated. The right atrium is moderately dilated. There is no color Doppler evidence of interatrial shunt. Aortic Valve The aortic valve is mildly thickened. There is no hemodynamically significant aortic valvular stenosis. Trace aortic regurgitation is present. Mitral Valve The mitral valve is normal in structure. No evidence of mitral valve stenosis. Mild mitral regurgitation is present. Tricuspid Valve The tricuspid valve leaflets are thin and pliable. Mild tricuspid regurgitation. RVSP is 30-35 mmHg. Pulmonic Valve The pulmonary valve is grossly normal in structure. Mild pulmonic valve regurgitation is present. Great Vessels The aortic root is normal in size. IVC is normal in size and collapses >50% with inspiration. Pericardium There is no pericardial effusion. Other Information Study Quality: Fair Conclusion Normal biventricular systolic function. Biatrial dilation. Mild MR, mild TR, mild PI. Electronically signed by : Sharron Torres MD 08/24/2025 12:12:15
--- NOTE | 2025-08-24 09:44 | PC.NURSE ---
report called to Andres at [facility]
[2025-08-24 11:34] VITALS: BP 159/77; PULSE 71; RESP 17; TEMP 36.7; O2SAT 95
[2025-08-24 12:04] VITALS: PULSE 90
== END 2025-08-24 13:35 | disposition short-term general hospital (02) | DRG 65 ==
LOC: ER 17:57 → 2ND 18:00
PROVIDERS: Nurse Practitioner Family; Admitting Provider Student in an Organized Health Care Education/Training Program; Emergency Provider Student in an Organized Health Care Education/Training Program; PCP Nurse Practitioner Family; Visit Provider Student in an Organized Health Care Education/Training Program
DX: I63.81 Other cerebral infarction due to occlusion or stenosis of small artery (principal); I50.32 Chronic diastolic (congestive) heart failure; I69.392 Facial weakness following cerebral infarction; I48.91 Unspecified atrial fibrillation; E03.9 Hypothyroidism, unspecified; F32.A Depression, unspecified; J45.909 Unspecified asthma, uncomplicated; G40.909 Epilepsy, unspecified, not intractable, without status epilepticus; F41.9 Anxiety disorder, unspecified; I25.10 Atherosclerotic heart disease of native coronary artery without angina pectoris; K21.9 Gastro-esophageal reflux disease without esophagitis; R29.810 Facial weakness; R29.702 NIHSS score 2; R51.9 Headache, unspecified; R07.9 Chest pain, unspecified; Z95.0 Presence of cardiac pacemaker; Z95.5 Presence of coronary angioplasty implant and graft; Z88.0 Allergy status to penicillin; Z88.2 Allergy status to sulfonamides; Z88.8 Allergy status to other drugs, medicaments and biological substances; Z79.82 Long term (current) use of aspirin; Z79.51 Long term (current) use of inhaled steroids; Z79.890 Hormone replacement therapy; Z79.899 Other long term (current) drug therapy; Z87.891 Personal history of nicotine dependence
CPT/HCPCS: 36415; 70450; 70496; 70498; 80048; 80053; 80061; 80307; 80320; 81001; 84484; 85025; 85610; 85730; 93005; 93306; 99285; J0780; J1200; J1650; J3475; J7030; Q9967

== ENCOUNTER 2025-10-24 12:59 | Outpatient (CLI) | payer MEDICARE, MEDICAID, SELFPAY ==
--- OUTSIDE RECORDS SUMMARY | 2025-02-08 23:00 | XMS_ITS | Encounter Summary ---
Author Organization Healthcare Address [address] [place] [address] Care Team Providers Care Metrology Manager Name Role Phone Pcp, No Primary Care Provider Jessie King POULTRY VETERINARIAN Unavailable Beth sher Encounter Details Date Type Department Care Team (Latest Contact Info) Description 02/09/2025 Hospital Encounter [facility] Breast Care Center [facility] [address] [address] Encounter for other specified special examinations Social History Tobacco Use Types Packs/Day Years Used Date Smoking Tobacco: Former Cigarettes Smokeless Tobacco: Never Alcohol Use Standard Drinks/Week Comments Not Currently 0 (1 standard drink = 0.6 oz pur e alcohol) PHQ-2 Answer Date Recorded Patient Health Questionnaire-2 Score 0 07/11/2025 PHQ-9 Answer Date Recorded Patient Health Questionnaire-9 Score 0 07/11/2025 CAGE ASSESSMENT Answer Date Recorded Cage unable [...] drink first t zander in the morning (EYE-SPECIALTY DEVELOPMENT CONSULTANT) to steady your nerves or to get rid of a hangover? 0 08/08/2023 CAGE Questionnaire Score 0 023 Comments Unknown Sex and Gender Information Value Date Recorded Sex Assigned at Not on file Legal Sex Female 8:16 PM EDT Gender Identity Not on file [...] 5:39 PM EDT Kevin Isidro RN * Over the past 2 weeks, how often have you been bothered by any of the following problems? Question Answer Date of Assessment Author Little interest or pleasure in doing things Not at all 07/11/2025 2:47 PM EDT Adela Boles Feeling down, depressed, or hopeless Not at all 07/11/2025 2:47 PM EDT Adela Cazares Patient Health Questionnaire-2 Score 0 07/11/2025 2:47 PM EDT Adela Banerjee * Question Answer Date of Assessment Author Trouble falling or staying asleep, or sleeping too much Not at all 07/11/2025 2:47 PM EDT Adela Cazares Feeling tired or having little energy Not at all 07/11/2025 2:47 PM EDT Adela Cazares Poor appetite or overeating Not at all 07/11/2025 2: 47 PM EDT Adela Cazares Feeling bad about yourself - or that you are a failure or have let yourself or your family down Not at all 07/11/2025 2:47 PM EDT Adela Cazares Trouble concentrating on things, such as reading the newspaper or watching television Not at all 07/11/2025 2:47 PM EDT Adela Cazares Moving or speaking so slowly that other people could have noticed. Or the opposite - being so fidgety or restless that you have been moving around a lot more than usual Not at all 07/11/2025 2:47 PM EDT Adela Cazares Thoughts that you would be better off or hurting yourself in some way Not at all 07/11/2025 2:47 PM EDT Adela Giraldo Patient Health Questionnaire-9 Score 0 07/11/2025 2:47 PM EDT Adela Banerjee * Calculated C-SSRS Risk Score (Lifetime/Recent) Answer Date of Assessment Author No Risk Indicated 07/11/2025 2:47 PM EDT Adela Alvarado * How difficult have these problems made it for you to do your work, take care of things at home, or get along with other people? Answer Date of Assessment Author Not difficult at all 07/11/2025 2:47 PM EDT Adela Chaves * Question Answer Date of Assessment Author 1. Wish to be (Past 1 Month) No 07/11/2025 2:47 PM EDT Adela Cazares 2. Non-Specific Active Suicidal Thoughts (Past 1 Month) No 07/11/2025 2:47 PM EDT Adela Cazares 6. Suicidal Behavior (Lifetime) No 07/11/2025 2:47 PM EDT Adela Cazares documented as of this encounter Mental Status * Because of a physical, mental, or emotional condition, do you have serious difficulty concentrating, remembering, or making decisions? (5 years old or older) Answer Entry Date Author No 08/08/2023 5:39 PM EDT Kevin Isidro RN documented in this encounter Plan of Treatment Upcoming Encounters Date Type Department Care Team (Late st Contact Info) Description 11/23/2025 9:00 AM EST Appointment [facility] Breast [facility] [address] [place] [address] 11/23/2025 9:30 AM EST [facility]ointment [facility] [address] [place] [address] 11/23/2025 1:00 PM EST Appointment [facility] [address] [facility] [address] [place] [address] documented as of this encounter Procedures Procedure Name Priority Date/Time Associated Diagnosis Comments MAMMOGRAPHY OUTSIDE IMAGES UPLOAD Routine 02/09/2025 12:00 AM EDT Encounter for other specified special examinations documented in this encounter Results * Mammography Outside Images Upload (02/09/2025 12:00 AM EDT) Narrative IMAGING - 10/24/2025 11:28 AM EST This study was performed at an outside facility and has been loaded into the PACS system for reference only. This order has been auto-finalized and does not contain a result. us Imaging Upload Radiant IMG BI PROCEDURES Final R esult IMAGING documented in this encounter Visit Diagnoses Diagnosis Encounter for other specified special examinations documented in this encounter Additional Health Concerns Assessment Noted Time A Body Mass Index follow-up plan has been documented for the patient 08/14/2023 12:22 PM EDT documented as of this encounter Care Teams Metrology Manager Relationship Specialty Start Date End Date Pcp, No [address] [place] [address] PCP - General Family Medicine 08/07/23 06/08/25 Jessie Payne APRN [address] [place] [address] 08/07/23 documented as of this encounter
--- OUTSIDE RECORDS SUMMARY | 2025-03-13 23:00 | XMS_ITS | Encounter Summary ---
Author Organization Healthcare Address [address] [place] [address] Care Team Providers Care Customer Pricing Manager Name Role Phone Pcp, No Primary Care Provider Jessie King QUALITY IMPROVEMENT ANALYST Unavailable Beth sher Encounter Details Date Type Department Care Team (Latest Contact Info) Description 03/14/2025 Hospital Encounter [facility] Breast Care Center [facility] [address] [address] Encounter for other specified special [...] drink first t zander in the morning (EYE-BRACELET FORMER) to steady your nerves or to get [...] at all 07/11/2025 2:47 PM EDT Adela Boels Feeling down, depressed, or hopeless Not at [...] AM EST Appointment [facility] [address] [place] [address] 11/23/2025 9:30 AM EST Appointment [facility] [address] [place] [address] 11/23/2025 1:00 PM EST Appointment [facility] [address] [facility] [address] [place] [address] documented as of this encounter Procedures Procedure Name Priority Date/Time Associated Diagnosis Comments MAMMOGRAPHY OUTSIDE IMAGES UPLOAD Routine 03/14/2025 12:00 AM EDT Encounter for other specified special examinations documented in this encounter Results * Mammography Outside Images Upload (03/14/2025 12:00 AM EDT) Narrative IMAGING - 10/24/2025 [...] documented as of this encounter Care Teams Customer Pricing Manager Relationship Specialty Start Date End Date Pcp, No [address] [place] [address] PCP - General Family Medicine 08/07/23 06/08/25 Jessie Payne APRN [address] [place] [address] 08/07/23 documented as of this encounter
--- OUTSIDE RECORDS SUMMARY | 2025-08-24 14:13 | XMS_ITS | Encounter Summary ---
Author Organization [facility] Address [address] [place] [address] Care Team Providers Care Vp Transportation Name Role Phone Marly Kumar SHAKIRA Primary Care Provider [phone] Reason for Referral * Home Health (Routine) - Pending Review Specialty Diagnoses / Procedures Referred By Contac t Referred To Contact Home Health Services Diagnoses Dysphagia, unspecified type Dysarthria Chronic obstructive pulmonary disease, unspecified COPD type Congestive heart failure, unspecified HF chronicity, unspecified heart failure type Procedures DC OFFICE/OUTPATIENT NEW MODERATE MDM 45 MINUTES Joselin Renteria MD [address] [place] [address] Phone: tel: fax: Referral ID Status Reason Start Date Expiration Date Visits Requested Visits Authorized [id number] Pending Review Specialty Services Required 5 11/24/2026 999 999 Reason for Visit * Auth/Cert Specialty Diagnoses / Procedures Referred By Contac t Referred To Contact Diagnoses Cerebrovascular Accident (CVA) Referral ID Status Reason Start Date Expiration Date Visits Re quested Visits Authorized [id number] 1 1 Encounter Details Date Type Department Care Team (Late st Contact Info) Description 08/24/2025 3:13 PM EDT - 08/27/2025 11:00 AM EDT Hospital Encounter [address] [place] [phone] Som Albert MD [address] [facility] [address] [place], [place] [id number] Samantha Castillo DO [address] [facility] [address] [place], [place] [id number] Joselin Renteria MD [address] [facility] 4th [address] [place], [place] [id number] Dysphagia, unspecified type (Primary Dx); Dysarthria; Chronic low back pain, unspecified back pain laterality, unspecified whether sciatica present; Has a tremor; Chronic obstructive pulmonary disease, unspecified COPD type; Congestive heart failure, unspecified HF chronicity, unspecified heart failure type Discharge Disposition: Home-Health Care Svc Social History Tobacco Use Types Packs/Day Years Used Date Smoking Tobacco: Former Cigarettes Passive Smoke Exposure: Past Smokeless Tobacco: Never Alcohol Use Standard Drinks/Week Comments Not Currently 0 (1 standard drink = 0.6 oz pur e alcohol) AUDIT-C Answer Date Recorded Q1: How often do you have a drink containing alcohol? Never 08/24/2025 Q2: How many drinks containi ng alcohol do you have on a typical day when you are drinking? Patient does not drink Q3: How often do you have si x or more drinks on one occasion? Never 08/24/2025 Abuse Screen Answer Date Recorded Feels Unsafe at Home or Work/School no 08/24/2025 Feels Threatened by Someone no 08/03 Does Anyone Try to Keep You From Having Contact with Others or Doing Things Outside Your Home? no 08/24/2025 Physical Signs of Abuse Present no 08/24/2025 Housing Stability Answer Date Recorded Current Living Arrangements home 08/03 Potentially Unsafe Housing Conditions Not on kymberly e 08/25/2025 Disabilities Answer Date Recorded Difficulty Concentrating, Remembering or Making Decisions no 08/24/2025 Difficulty Managing Errands Independently yes 08/24/2025 Comments Unknown Sex and Gender Information Value Date Recorded Sex Assigned at Not on file Legal Sex Female 10:34 AM EDT Gender Identity Not on file Sexual Orientation Not on file documented as of this encounter Last Filed Vital Signs Vital Sign Reading Time Taken Comments Blood Pressure 129/66 08/27/2025 8:47 AM EDT Pulse 71 08/27/2025 10:38 AM EDT Temperature 36.7 C (98 F) 08/27/2025 7:15 AM EDT Respiratory Rate 16 08/27/2025 10:38 AM EDT Oxygen Saturation 96% 08/27/2025 10:38 AM EDT SPOT CHECK Inhaled Oxygen Concentration - - Weight 76.7 kg (169 lb) 08/25/2025 11:50 AM EDT Height 149.9 cm (4' 11 ) 08/25/2025 11:50 AM EDT Body Mass Index 34.13 08/25/2025 11:50 AM EDT documented in this encounter Functional Status * AUDIT-C (Alcohol Use Disorders Identification Test) Question Answer Date of Assessment Author AUDIT-C Score 0 08/24/2025 4:13 PM EDT Ismael Shaffer RN Q1: How often do you have a drink containing alcohol? Never 08/24/2025 4:13 PM EDT Ismael Choudhury RN Q2: How many drinks containing alcohol do you have on a typical day when you are drinking? Patient does not drink 08/24/2025 4:13 PM EDT Ismael Choudhury RN Q3: How often do you have six or more drinks on one occasion? Never 08/24/2025 4:13 PM EDT Ismael Choudhury RN * Suicidal Ideation (Past 1 Month) Question Answer Date of Assessment Author 1. Wish to be (Past 1 Month) No 08/24/2025 4:19 PM EDT Ismael Choudhury RN 2. Non-Specific Active Suici reno Thoughts (Past 1 Month) No 08/24/2025 4:19 PM EDT Vimal Choudhury RN * Calculated C-SSRS Risk Score (Lifetime/Recent) Answer Date of Assessment Author Moderate Risk 08/24/2025 4:19 PM EDT Ismael Choudhury RN * [place] Suicide Severity Rating Scale (Screener/Recent Self-Report) Question Answer Date of Assessment Author 6. Suicidal Behavior (Lifetime) Yes 10/23/202 5 4:19 PM EDT Ismael Choudhury RN 6. Suicidal Behavior (3 Months) No 4:19 PM EDT Ismael Choudhury RN documented as of this encounter Discharge Summaries * Yvonne Silva APRN - 08/27/2025 9:08 AM EDT Images from the original note were not included. [facility] Medicine Services DISCHARGE SUMMARY Patient Name: Mu Perkins : 1955 Date of Admission: 08/24/2025 Date of Discharge: 08/27/2025 Primary Care Physician: Marly Kumar APRN Consults Date and Time Order Name Status Description 08/24/2025 3:16 PM Inpatient Cardiology Consult Completed Hospital Course Presenting Problem: Right facial numbness [R20.0] Active Hospital Problems Diagnosis POA ??? Right facial numbness [R20.0] Yes ??? Hypothyroidism [E03.9] Yes ??? Gastroesophageal reflux disease without esophagitis [K21.9] Yes ??? Seizure disorder [G40.909] Yes ??? Mixed hyperlipidemia [E78.2] Yes ??? Benign essential hypertension [I10] Yes ??? Congestive heart failure [I50.9] Yes Resolved Hospital Problems No resolved problems to display. Hospital Course: Mu Perkins is a 70 y.o. female PMH history of CVA with residual incontinence, ischemic cardiomyopathy s/p dual-chamber defibrillator CAD s/p stent 2015, HTN, COPD, seizure disorder, ZU[place] on BiPAP, chronic chest pain, HLD, carpal tunnel, hypothyroidism who presented with right facial droop and possible hand numbness. CT head shows hypo attenuation in the right thalamus that does not correlate with patient's symptoms. MRI negative, echo EF 56 to 60% with normal ventricular cavity size, left ventricular wall thickness consistent with hypertrophy. Aortic valve abnormal in structure without regurgitation or stenosis. Mild calcification of the aortic valve mainly affecting the right coronary cusps. Mild MVR, mild TVR, normal pulmonary valve structure with no regurgitation or stenosis. No indication for DAPT per neurology perspective continue aspirin, atorvastatin. Assessment/Plan Right facial droop History of CVA with residual incontinence - CT head shows hypo-attenuation in the right thalamus but does not correlate with patient's symptoms - MRI negative - Echo EF 56 to 60% with normal ventricular cavity size, left ventricular wall thickness consistentwith hypertrophy. Aortic valve abnormal in structure without regurgitation or stenosis. Mild calcification of the aortic valve mainly affecting the right coronary cusps. Mild MVR, mild TVR, normal pulmonary valve structure with no regurgitation or stenosis. Negative bubble study. - No indication for DAPT from neuro perspective, continue aspirin and atorvastatin - Neurology, LDL goal less than 70, A1c goal less than 7, blood pressure less than 130/80 --LDL 46 currently Hand numbness, chronic - Chronic per patient report. Patient has carpal tunnel syndrome - Area of concern on CT head does not correlate Chronic chest pain CAD s/p stent 2015 - No symptoms since arrival - Recent nuclear stress test that was indeterminant risk but reportedly poor study - Patient has a follow-up with cardiology 09/11 - Continue aspirin Seizures - Continue Keppra Ischemic cardiomyopathy CHF with EF 56 to 60% Hypertension - Echo EF 56 to 60% with normal ventricular cavity size, left ventricular wall thickness consistentwith hypertrophy. Aortic valve abnormal in structure without regurgitation or stenosis. Mild calcification of the aortic valve mainly affecting the right coronary cusps. Mild MVR, mild TVR, normal pulmonary valve structure with no regurgitation or stenosis. Negative bubble study. -Follows with cardiology - Bisoprolol HLD - Atorvastatin Hypothyroidism - Synthroid Discharge Follow Up Recommendations for labs/diagnostics: Follow-up with PCP in 1 week Follow-up with [facility] neurology in 2 months Follow-up with [facility] gastroenterology for reported esophageal dysphagia in 4weeks Day of Discharge HPI: Patient resting in bed reporting headache. Denies any new issues today. Otherwise ROS is negative except as mentioned in the HPI. Vital Signs: Temp: [97.7 ??F (36.5 ??C)-98.2 ??F (36.8 ??C)] 98 ??F (36.7 ??C) Heart Rate: [60-78] 64 Resp: [14-18] 16 BP: (102-129)/(56-72) 129/66 Physical Exam: Constitutional: Awake, alert, NAD HENT: NCAT, mucous membranes moist Respiratory: Clear, nonlabored Cardiovascular: RRR, no murmurs, rubs, or gallops Gastrointestinal: Positive bowel sounds, soft, nontender, nondistended Musculoskeletal: No bilateral ankle edema Psychiatric: Appropriate affect, cooperative Neurologic: Oriented x 3, right arm weakness 4/5. Decreased right arm, speech clear Skin: No rashes on exposed skin Pertinent and/or Most Recent Results Results from last 7 days Lab Units 08/25/25 0908/24/251909 WBC 10*3/mm3 4.93 5.50 HEMOGLOBIN g/dL 11.7* 11.6* HEMATOCRIT % 36.0 36.7 PLATELETS 10*3/mm3 145 143 SODIUM mmol/L 138 139 POTASSIUM mmol/L 3.7 4.0 CHLORIDE mmol/L 104 107 CO2 mmol/L 25.8 23.3 BUN mg/dL 18.4 20.7 CREATININE mg/dL 1.00 1.08* GLUCOSE mg/dL 127* 94 CALCIUM mg/dL 8.9 8.9 Results from last 7 days Lab Units 08/25/2591808/24/251909 BILIRUBIN mg/dL 0.4 0.2 ALK PHOS U/L 49 56 ALT (SGPT) U/L 28 17 AST (SGOT) U/L 46* 28 Results from last 7 days Lab Units 08/25/25 09 CHOLESTEROL mg/dL 117 TRIGLYCERIDES mg/dL 123 HDL CHOL mg/dL 49 Results from last 7 days Lab Units 08/25/25 0919 HEMOGLOBIN A1C % 6.22* Brief Urine Lab Results None Microbiology Results Abnormal None Imaging Results (All) Procedure Component Value Units Date/Time MRI Brain Without Contrast [[id number]] Collected: 08/25/251999 Updated: 08/25/252004 Narrative: MRI BRAIN WO CONTRAST Date of Exam: 08/25/2025 1:04 PM EDT Indication: Stroke, follow up right arm weakness, right facial droop. Comparison: None available. Technique: Routine multiplanar/multisequence sequence images of the brain were obtained without contrast administration. Findings: No acute infarct is present on diffusion weighted sequences. Midline structures appear normal and the craniocervical junction is satisfactory. Minimal age- related generalized volume loss is present. Sims-white differentiation is otherwise maintained and there is no evidence of intracranial hemorrhage, mass or mass effect. The ventricles are normal in size and configuration. The orbits are normal.The paranasal sinuses are clear. Impression: Impression: Essentially normal noncontrast MRI of the brain. No evidence of recent infarct, hemorrhage, mass ormass effect. Electronically Signed: Garrett Roberson MD 08/25/2025 8:02 PM EDT Workstation ID: [id number] CT Outside Head [[id number]] Resulted: 08/24/251633 Updated: 08/24/251633 Narrative: This procedure was auto-finalized with no dictation required. CT Outside Head [[id number]] Resulted: 08/24/251624 Updated: 08/24/251624 Narrative: This procedure was auto-finalized with no dictation required. CT Outside Neck [[id number]] Resulted: 08/24/251624 Updated: 08/24/251624 Narrative: This procedure was auto-finalized with no dictation required. Results for orders placed in visit on 07/25/24 Duplex Lower Extremity Art / Grafts - Bilateral CAR 07/25/2024 5:45 PM Interpretation Summary ??? Right lower extremity arteries are patent and without significant stenosis. Left lower extremity arteries are patent and without significant stenosis. ??? The left proximal deep femoral artery demonstrates no significant stenosis. ??? Left lower extremity arteries are patent and without significant stenosis. Results for orders placed in visit on 07/25/24 Duplex Lower Extremity Art / Grafts - Bilateral CAR 07/25/2024 5:45 PM Interpretation Summary ??? Right lower extremity arteries are patent and without significant stenosis. Left lower extremity arteries are patent and without significant stenosis. ??? The left proximal deep femoral artery demonstrates no significant stenosis. ??? Left lower extremity arteries are patent and without significant stenosis. Discharge Details Discharge Medications New Medications Instructions Start Date acetaminophen 325 MG tablet Commonly known as: TYLENOL 650 mg, Oral, Every 6 Hours PRN Changes to Medications Instructions Start Date furosemide 40 MG tablet Commonly known as: LASIX What changed: additional instructions 40 mg, Oral, 2 Times Daily levothyroxine 88 MCG tablet Commonly known as: SYNTHROID, LEVOTHROID What changed: medication strength 88 mcg, Oral, Daily Start Date: August 28, 2025 potassium chloride 10 MEQ CR tablet What changed: how much to take additional instructions 10 mEq, Oral, 2 Times Daily Continue These Medications Instructions Start Date aspirin 81 MG EC tablet 1 tablet, Daily atorvastatin 40 MG tablet Commonly known as: LIPITOR 1 tablet, Every Night at Bedtime bisoprolol 5 MG tablet Commonly known as: ZEBeta 5 mg, Oral, Daily budesonide-formoterol 160-4.5 MCG/ACT inhaler Commonly known as: SYMBICORT 2 puffs, 2 Times Daily - RT calcium carb-cholecalciferol 600-10 MG-MCG tablet per tablet 1 tablet, Daily fenofibrate 145 MG tablet Commonly known as: TRICOR 1 tablet, Daily HYDROcodone-acetaminophen 5-325 MG per tablet Commonly known as: NORCO 1 tablet, Oral, Every 4 Hours PRN hydrOXYzine 25 MG tablet Commonly known as: ATARAX 25 mg, Every 6 Hours PRN lactulose 10 GM/15ML solution Commonly known as: CHRONULAC Take 30 mL by mouth Daily. levETIRAcetam 1000 MG tablet Commonly known as: KEPPRA 1,000 mg, 2 Times Daily loratadine 10 MG tablet Commonly known as: CLARITIN 10 mg, Daily magnesium oxide 400 MG tablet Commonly known as: MAG-OX 400 mg, Oral, Daily mirtazapine 30 MG tablet Commonly known as: REMERON 1 tablet, Every Night at Bedtime nitroglycerin 0.4 MG SL tablet Commonly known as: NITROSTAT 1 under the tongue as needed for angina, may repeat q5mins for up three doses nystatin [id number] UNIT/GM cream Commonly known as: MYCOSTATIN Apply 2 applications topically daily to affected areas as needed omeprazole 40 MG capsule Commonly known as: priLOSEC 1 capsule, Daily ondansetron 4 MG tablet Commonly known as: ZOFRAN 4 mg, Every 8 Hours PRN QUEtiapine 25 MG tablet Commonly known as: SEROquel 12.5-25 mg, Daily rOPINIRole 1 MG tablet Commonly known as: REQUIP TAKE ONE TABLET BY MOUTH AT BEDTIME for restless legs tiZANidine 4 MG tablet Commonly known as: ZANAFLEX TAKE 1/2 TABLET TO ONE TABLET EVERY SIX HOURS NEEDED FOR PAIN Ventolin HFA 108 (90 Base) MCG/ACT inhaler Generic drug: albuterol sulfate HFA 2 puffs, 4 Times Daily - RT Stop These Medications clopidogrel 75 MG tablet Commonly known as: PLAVIX metoclopramide 5 MG tablet Commonly known as: REGLAN midodrine 2.5 MG tablet Commonly known as: PROAMATINE Allergies Allergen Reactions ??? Alendronate Sodium Hives ??? Gabapentin Irritability ??? Penicillins Hives, Itching and Unknown - Low Severity ??? Sulfa Antibiotics Unknown - Low Severity ??? Tamsulosin Other (See Comments) Sick to stomach Discharge Disposition: Home-Health Care Sv Discharge Diet: Diet Order Procedures ??? Diet: Cardiac; Healthy Heart (2-3 Na+); Texture: Soft to Chew (NDD 3); Soft to Chew: Chopped Meat; Fluid Consistency: Thin (IDDSI 0) Meds whole with thin or puree as tolerated Standing Status: Standing Number of Occurrences: 1 Diets:: Cardiac Cardiac Diet:: Healthy Heart (2-3 Na+) Texture:: Soft to Chew (NDD 3) Soft to Chew:: Chopped Meat Fluid Consistency:: Thin (IDDSI 0) Discharge Activity: Activity Instructions Activity as Tolerated Up WIth Assist CODE STATUS: Code Status and Medical Interventions: CPR (Attempt to Resuscitate); Full Support Ordered at: 08/24/25 1543 Code Status (Patient has no pulse and is not breathing): CPR (Attempt to Resuscitate) Medical Interventions (Patient has pulse or is breathing): Full Support Level Of Support Discussed With: Patient Future Appointments Date Time Provider Department Center 09/11/2025 2:00 PM Nereida Ambrose APRN [facility] 09/11/2025 2:00 PM [facility] DEVICE CHECK [facility] Additional Instructions for the Follow-ups that You Need to Schedule Ambulatory Referral to Home Health As directed Face to Face Visit Date: 08/25/2025 Follow-up provider for Plan of Care?: I treated the patient in an acute care facility and will not continue treatment after discharge. Follow-up provider: MARLY KUMAR [[id number]] Reason/Clinical Findings: s/p hospitalization for stroke like symptoms Describe mobility limitations that make leaving home difficult: Impaired functional mobility, balance, gait and endurance Nursing/Therapeutic Services Requested: Care Home Speech Therapy long-term orders: Neurovascular assessments TELEGRAPH EQUIPMENT MAINTAINER orders: Dysphagia therapy Articulation Language Frequency: Other Discharge Follow-up with PCP As directed Currently Documented PCP: Marly Kumar APRN PCP Follow Up Details: Follow up with PCP in 1 week Discharge Follow-up with Specified Provider: [facility] Neurology; 2 Months As directed To: [facility] Neurology Follow Up: 2 Months Discharge Follow-up with Specified Provider: [facility] gastroenterology; 1 Month As directed To: [facility] gastroenterology Follow Up: 1 Month Follow Up Details: esophageal dysphagia. Time Spent on Discharge: 45 minutes Electronically signed by Yvonne Silva APRN, 08/27/25, 9:09 AM EDT. Cosigned by Joselin Renteria MD at 08/27/2025 5:01 PM EDT Associated attestation - Joselin Renteria MD - 08/27/2025 5:01 PM EDT I have reviewed this documentation and agree. * Vonda Pagan OT - 08/25/2025 8:24 AM EDT Images from the original note were not included. Acute Care - Occupational Therapy Discharge [facility] Patient Name: Mu Perkins : 1955 Today's Date: 08/25/2025 Admit Date: 08/24/2025 Visit Dx: ICD-10-CM ICD-9-CM 1. Dysphagia, unspecified type R13.10 787.20 2. Dysarthria R47.1 784.51 Patient Active Problem List Diagnosis Automatic implantable cardiac defibrillator in situ Benign essential hypertension Chronic low back pain Chronic obstructive pulmonary disease Congestive heart failure Coronary atherosclerosis Hypothyroidism Gastroesophageal reflux disease without esophagitis Has a tremor History of cardiac arrest Hypokalemia Hypomagnesemia Insomnia, persistent Localized edema Mixed hyperlipidemia Seasonal allergies Seizure disorder Hospital discharge follow-up Hypotension due to drugs Right facial numbness Past Medical History: Diagnosis Date Acute on [...] NERVE REPAIR Left SUBCLAVIAN / PULMONARY SHUNT General Information Row Name 08/25/25 1028 OT Time and Intention Document Type discharge evaluation/summary -AN Mode of Treatment occupational therapy -AN Row Name 08/25/25 1028 General Information Patient Profile Reviewed yes -AN Prior Level of Function independent:;all household mobility;community mobility;gait;ADL's -AN Existing Precautions/Restrictions no known precautions/restrictions -AN Barriers to Rehab none identified -AN Row Name 08/25/25 1028 Living Environment Current Living Arrangements home -AN People in Home child(nahid), adult;grandchild(nahid) -AN Row Name 08/25/25 1028 Home Main Entrance Number of Stairs, Main Entrance one;other (see comments) back entrance -AN Row Name 08/25/25 1028 Stairs Within Home, Primary Number of Stairs, Within Home, Primary none -AN Row Name 08/25/25 1028 Cognition Orientation Status (Cognition) oriented x 4 -AN Row Name 08/25/25 1028 Safety Issues/Impairments Affecting Functional Mobility Safety Issues Affecting Function (Mobility) safety precaution awareness;safety precautions follow-through/compliance -AN Impairments Affecting Function (Mobility) balance;strength;sensation/sensory awareness -AN User Law (r) = Recorded By, (t) = Taken By, (c) = Cosigned By Initials Name Provider Type AN Vonda Pagan OT Occupational Therapist Mobility/ADL's Row Name 08/25/25 1030 Bed Mobility Bed Mobility [id number] -AN [id number] [place] (Bed Mobility) modified independence -AN Assistive Device (Bed Mobility) head of bed elevated -AN Row Name 08/25/25 1030 Transfers Transfers sit-stand transfer;stand-sit transfer;toilet transfer -AN Row Name 08/25/25 1030 Sit-Stand Transfer Sit-Stand [place] (Transfers) standby assist -AN Row Name 08/25/25 1030 Stand-Sit Transfer Stand-Sit [place] (Transfers) standby assist -AN Row Name 08/25/25 1030 Toilet Transfer Type (Toilet Transfer) sit-stand;stand-sit -AN [place] Level (Toilet Transfer) standby assist -AN Assistive Device (Toilet Transfer) commode;grab bars/safety frame -AN Row Name 08/25/25 1030 Functional Mobility Functional Mobility- Ind. Level standby assist -AN Functional Mobility-Distance (Feet) -- household distance -AN Row Name 08/25/25 1030 Activities of Daily Living BADL Assessment/Intervention upper body dressing;grooming;toileting -AN Row Name 08/25/25 103 Upper Body Dressing Assessment/Training [place] Level (Upper Body Dressing) don;pajama/robe;set up -AN Position (Upper Body Dressing) edge of bed sitting -AN Row Name 08/25/25 103 Grooming Assessment/Training [place] Level (Grooming) wash face, hands;standby assist -AN Position (Grooming) sink side -AN Row Name 08/25/25 103 Toileting Assessment/Training [place] Level (Toileting) adjust/manage clothing;perform perineal hygiene;standby assist -AN Assistive Devices (Toileting) commode -AN Position (Toileting) unsupported sitting;unsupported standing -AN User Law (r) = Recorded By, (t) = Taken By, (c) = Cosigned By Initials Name Provider Type Vonda Marquez OT Occupational Therapist Obj/Interventions Row Name 08/25/25 1031 Sensory Assessment (Somatosensory) Sensory Assessment (Somatosensory) right UE;right LE -AN Right UE Sensory Assessment general sensation -AN Sensory Subjective Reports numbness -AN Row Name 08/25/25 1031 Vision Assessment/Intervention Visual Impairment/Limitations WFL -AN Row Name 08/25/25 1031 Range of Motion Comprehensive General Range of Motion no range of motion deficits identified -AN Row Name 08/25/25 1031 Strength Comprehensive (MMT) General Manual Muscle Testing (MMT) Assessment upper extremity strength deficits identified -AN Comment, General Manual Muscle Testing (MMT) Assessment RUE grossly 4/5, LUE grossly 5/5 -AN Row Name 08/25/25 1031 Balance Balance Assessment sitting static balance;sitting dynamic balance;sit to stand dynamic balance;standing static balance;standing dynamic balance -AN Static Sitting Balance independent -AN Dynamic Sitting Balance independent -AN Position, Sitting Balance sitting edge of bed -AN Sit to Stand Dynamic Balance standby assist -AN Static Standing Balance standby assist -AN Dynamic Standing Balance standby assist -AN Position/Device Used, Standing Balance supported -AN Balance Interventions standing;sit to stand;supported;static;dynamic;minimal challenge;occupation based/functional task -AN User Law (r) = Recorded By, (t) = Taken By, (c) = Cosigned By Initials Name Provider Type Vonda Marquez OT Occupational Therapist Goals/Plan No documentation. Clinical Impression Row Name 08/25/25 1032 Pain Assessment Pretreatment Pain Rating 0/10 - no pain -AN Posttreatment Pain Rating 0/10 - no pain -AN Row Name 08/25/25 1032 Plan of Care Review Plan of Care Reviewed With patient -AN Progress no change -AN Outcome Evaluation Pt presents at her functional baseline with all ADLs and mobility at this time. No skilled OT services warranted. OT will dc and rec home with family. -AN Row Name 08/25/25 1032 Therapy Assessment/Plan (OT) Patient/Family Therapy Goal Statement (OT) Return to PLOF -AN Rehab Potential (OT) good -AN Criteria for Skilled Therapeutic Interventions Met (OT) yes;skilled treatment is necessary -AN Therapy Frequency (OT) daily -AN Predicted Duration of Therapy Intervention (OT) 5 days -AN Row Name 08/25/25 1032 Therapy Plan Review/Discharge Plan (OT) Anticipated Discharge Disposition (OT) home with assist -AN Row Name 08/25/25 1032 Vital Signs Pre Systolic BP Rehab 147 -AN Pre Treatment Diastolic BP 73 -AN Post Systolic BP Rehab 159 -AN Post Treatment Diastolic BP 77 -AN O2 Delivery Pre Treatment room air -AN O2 Delivery Intra Treatment room air -AN O2 Delivery Post Treatment room air -AN Pre Patient Position Supine -AN Intra Patient Position Standing -AN Post Patient Position Supine -AN Row Name 08/25/25 1032 Positioning and Restraints Pre-Treatment Position in bed -AN Post Treatment Position bed -AN In Bed notified nsg;supine;call light within reach;encouraged to call for assist;exit alarm on;siderails up x2 -AN User Law (r) = Recorded By, (t) = Taken By, (c) = Cosigned By Initials Name Provider Type Vonda Marquez OT Occupational Therapist Outcome Measures Row Name 08/25/25 1033 How much help from another is currently needed... Putting on and taking off regular lower body clothing? 4 -AN Bathing (including washing, rinsing, and drying) 3 -AN Toileting (which includes using toilet bed santos or urinal) 3 -AN Putting on and taking off regular upper body clothing 4 -AN Taking care of personal grooming (such as brushing teeth) 4 -AN Eating meals 4 -AN AM-PAC 6 Clicks Score (OT) 22 -AN Row Name 08/25/25 1033 Modified Laina Scale Pre-Stroke Modified Laina Scale 6 - Unable to determine (UTD) from the medical record documentation -AN Modified Laina Scale 2 - Slight disability. Unable to carry out all previous activities but able to look after own affairs without assistance. 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 (Done) Topic: Occupational Therapy (Done) Point: ADL training (Done) Learning Progress Summary Patient Acceptance, E, VU by AN at 08/25/2025 1034 Point: Home exercise program (Done) Learning Progress Summary Patient Acceptance, E, VU by AN at 08/25/2025 1034 Point: Precautions (Done) Learning Progress Summary Patient Acceptance, E, VU by AN at 08/25/2025 1034 Point: Body mechanics (Done) Learning Progress Summary Patient Acceptance, E, VU by AN at 08/25/2025 1034 User Law Initials Effective Dates Name Provider Type [facility] 07/23/21 - Vonda Pagan OT Occupational Therapist OT OT Recommendation and Plan Recommended discharge disposition is based on the functional assessment performed by PT/OT/Speech therapy (as applicable) and may not reflect the medical necessity determined by your provider or services covered by an individual patient's insurance plan or patient resource. Therapy Frequency (OT): daily Plan of Care Review Plan of Care Reviewed With: patient Progress: no change Outcome Evaluation: Pt presents at her functional baseline with all ADLs and mobility at this time.No skilled OT services warranted. OT will dc and rec home with family. Plan of Care Reviewed With: patient Outcome Evaluation: Pt presents at her functional baseline with all ADLs and mobility at this time.No skilled OT services warranted. OT will dc and rec home with family. Time Calculation: Evaluation Complexity (OT) Review Occupational Profile/Medical/Therapy History Complexity: brief/low complexity Assessment, Occupational Performance/Identification of Deficit Complexity: 1-3 performance deficits Clinical Decision Making Complexity (OT): problem focused assessment/low complexity Overall Complexity of Evaluation (OT): low complexity Time Calculation- OT Row Name 08/25/25 1035 Time Calculation- OT OT Start Time 0824 -AN OT Received On 08/25/25 -AN OT Goal Re-Cert Due Date 09/04/25 -AN Untimed Charges OT Eval/Re-eval Minutes 46 -AN Total Minutes Untimed Charges Total Minutes 46 -AN Total Minutes 46 -AN User Law (r) = Recorded By, (t) = Taken By, (c) = Cosigned By Initials Name Provider Type AN Vonda Pagan OT Occupational Therapist Therapy Charges for Today Code Description Service Date Service Provider Modifiers Qty [id number] OT EVAL LOW COMPLEXITY 4 08/25/2025 Vonda Pagan OT GO 1 OT Discharge Summary Anticipated Discharge Disposition (OT): home with assist Vonda Pagan OT 08/25/2025 documented in this encounter Discharge Instructions * Discharge Instructions* Iveth Mojica RN - 08/27/2025 10:19 AM EDT . * Attachments The following attachments cannot be sent through Care Everywhere. * Chronic Back Pain [id number] (Malawian) * Chronic Pain Adult (Malawian) * Pain Medicines: What to Know (Malawian) * COPD and Physical Activity (Malawian) * Eating Plan for Chronic Obstructive Pulmonary Disease (Malawian) * Heart Failure: How to Manage (Malawian) * Heart Failure: Self-Care (Malawian) * Heart Failure: What to Know (Malawian) * Dysphagia Eating Plan Bite Size Food (Malawian) * Dysphagia Eating Plan Minced and Moist Foods (Malawian) * How to Do a Supraglottic Swallow to Help With Swallowing Problems (Malawian) * Problems With Swallowing (Dysphagia): What to Know (Malawian) documented in this encounter Medications at Time of Discharge acetaminophen (TYLENOL) 325 MG tablet Take 2 tablets by mouth Every 6 (Six) Hours As Needed for Mild Pain. 08/27/2025 albuterol sulfate HFA (Ventolin HFA) 108 (90 Base) MCG/ACT inhaler Inhale 2 puffs 4 (Four) Times a Day. aspirin 81 MG EC tablet Take 1 tablet by mouth Daily. atorvastatin (LIPITOR) 40 MG tablet Take 1 tablet by mouth every night at bedtime. bisoprolol (ZEBeta) 5 MG tablet TAKE 1 TABLET BY MOUTH DAILY 90 tablet 07/28/2025 budesonide-formo terol (SYMBICORT) 160-4.5 MCG/ACT inhaler Inhale 2 puffs 2 (Two) Times a Day. 05/18/2024 calcium carb-cholecalcif shabbir 600-10 MG-MCG tablet per tablet Take 1 tablet by mouth Daily. 09/28/2024 fenofibrate (TRICOR) 145 MG tablet Take 1 tablet by mouth Daily. furosemide (LASIX) 40 MG tablet Take 1 tablet by mouth 2 (Two) Times a Day. 180 tablet 1 03/17/2025 HYDROcodone-acet aminophen (NORCO) 5-325 MG per tablet Take 1 tablet by mouth Every 4 (Four) Hours As Needed for Moderate Pain. hydrOXYzine (ATARAX) 25 MG tablet Take 1 tablet by mouth Every 6 (Six) Hours As Needed. lactulose (CHRONULAC) 10 GM/15ML solution Take 30 mL by mouth Daily. 04/26/2025 levETIRAcetam (KEPPRA) 1000 MG tablet Take 1 tablet by mouth 2 (Two) Times a Day. levothyroxine (SYNTHROID, LEVOTHROID) 88 MCG tablet Take 1 tablet by mouth Daily. 30 tablet 08/27/2025 9:15 AM EDT 08/28/2025 loratadine (CLARITIN) 10 MG tablet Take 1 tablet by mouth Daily. magnesium oxide (MAG-OX) 400 MG tabletIndication s:Hypomagnesemia TAKE ONE TABLET BY MOUTH EVERY DAY 90 tablet 3 06/09/2025 mirtazapine (REMERON) 30 MG tablet Take 1 tablet by mouth every night at bedtime. nitroglycerin (NITROSTAT) 0.4 MG SL tablet 1 under the tongue as needed for angina, may repeat q5mins for up three doses 25 tablet 5 02/01/2025 nystatin (MYCOSTATIN) 228980 UNIT/GM cream Apply 2 applications topically daily to affected areas as needed 04/11/2025 omeprazole (priLOSEC) 40 MG capsule Take 1 capsule by mouth Daily. ondansetron (ZOFRAN) 4 MG tablet Take 1 tablet by mouth Every 8 (Eight) Hours As Needed. potassium chloride 10 MEQ CR tabletIndication s:Localized edema Take 1 tablet by mouth 2 (Two) Times a Day. 60 tablet 6 01/04/2025 QUEtiapine (SEROquel) 25 MG tablet Take 0.5-1 tablets by mouth Daily. 09/08/2024 rOPINIRole (REQUIP) 1 MG tablet TAKE ONE TABLET BY MOUTH AT BEDTIME for restless legs 04/26/2025 tiZANidine (ZANAFLEX) 4 MG tablet TAKE 1/2 TABLET TO ONE TABLET EVERY SIX HOURS NEEDED FOR PAIN documented as of this encounter Progress Notes * Marisol Pickens APRN - 08/27/2025 11:00 AM EDT Enter Query Response Below Query Response: The etiology of the patient's right facial droop/right upper extremity weakness is of cryptogenic etiology most likely stuttering TIAs versus a MRI negative stroke. If applicable, please update the problem list. E * Joselin Renteria MD - 08/26/2025 5:06 PM EDT Images from the original note were not included. [facility] Medicine Services PROGRESS NOTE Patient Name: Mu Perkins : 1955 Date of Admission: 08/24/2025 Primary Care Physician: Marly Kumar APRN Subjective Subjective CC: R facial droop HPI: Pt feeling good this AM. She is eating well and slept ok. Objective Objective Vital Signs: Temp: [97.4 ??F (36.3 ??C)-98.1 ??F (36.7 ??C)] 98.1 ??F (36.7 ??C) Heart Rate: [60-72] 60 Resp: [15-18] 18 BP: (102-123)/(52-66) 123/64 Physical Exam Constitutional: General: She is not in acute distress. Cardiovascular: Rate and Rhythm: Normal rate and regular rhythm. Heart sounds: Normal heart sounds. Pulmonary: Effort: Pulmonary effort is normal. No respiratory distress. Breath sounds: Normal breath sounds. Abdominal: Palpations: Abdomen is soft. Tenderness: There is no abdominal tenderness. Musculoskeletal: Right lower leg: No edema. Left lower leg: No edema. Neurological: Mental Status: She is alert. Psychiatric: Mood and Affect: Mood normal. Thought Content: Thought content normal. No changes Results Reviewed: LAB RESULTS: Lab 08/25/2591808/24/251909 WBC 4.93 5.50 HEMOGLOBIN 11.7* 11.6* HEMATOCRIT 36.0 36.7 PLATELETS 145 143 NEUTROS ABS 2.35 2.12 IMMATURE GRANS (ABS) 0.02 0.01 LYMPHS ABS 2.12 2.74 MONOS ABS 0.27 0.44 EOS ABS 0.14 0.16 MCV 92.5 93.4 Lab 08/25/2591808/24/251909 SODIUM 138 139 POTASSIUM 3.7 4.0 CHLORIDE 104 107 CO2 25.8 23.3 ANION GAP 8.2 8.7 BUN 18.4 20.7 CREATININE 1.00 1.08* EGFR 60.0* 54.7* GLUCOSE 127* 94 CALCIUM 8.9 8.9 MAGNESIUM 1.6 1.9 HEMOGLOBIN A1C 6.22* -- Lab 08/25/2591808/24/251909 TOTAL PROTEIN 5.6* 6.0 ALBUMIN 3.7 3.5 GLOBULIN 1.9 2.5 ALT (SGPT) 28 17 AST (SGOT) 46* 28 BILIRUBIN 0.4 0.2 ALK PHOS 49 56 Lab 08/25/25918 CHOLESTEROL 117 LDL CHOL 46 HDL CHOL 49 TRIGLYCERIDES 123 Brief Urine Lab Results None Microbiology Results Abnormal None MRI Brain Without Contrast Result Date: 08/25/2025 MRI BRAIN WO CONTRAST Date of Exam: 08/25/2025 1:04 PM EDT Indication: Stroke, follow up right arm weakness, right facial droop. Comparison: None available. Technique: Routine multiplanar/multisequence sequence images of the brain were obtained without contrast administration. Findings: No acute infarct is present on diffusion weighted sequences. Midline structures appear normal and the craniocervical junction is satisfactory. Minimal age-related generalized volume loss is present. Sims-white differentiation is otherwise maintained and there is no evidence of intracranial hemorrhage, mass or mass effect. The ventricles are normal in size and configuration. The orbits are normal. The paranasal sinuses are clear. Impression: Impression: Essentially normal noncontrast MRI of the brain. No evidence of recent infarct, hemorrhage, mass or mass effect. Electronically Signed: Garrett Roberson MD 08/25/2025 8:02 PM EDT Workstation ID: [id number] I have personally reviewed the therapy plans: [] PT/OT/ ST Therapy Plans Current medications: Scheduled Meds:aspirin, 81 mg, Oral, Daily Or aspirin, 300 mg, Rectal, Daily atorvastatin, 40 mg, Oral, Nightly bisoprolol, 5 mg, Oral, Daily budesonide-formoterol, 2 puff, Inhalation, BID - RT furosemide, 40 mg, Oral, BID levETIRAcetam, 1,000 mg, Oral, BID levothyroxine, 88 mcg, Oral, Daily melatonin, 5 mg, Oral, Nightly nystatin, 1 Application, Topical, Q12H pantoprazole, 40 mg, Oral, Q AM QUEtiapine, 25 mg, Oral, Nightly rOPINIRole, 1 mg, Oral, Nightly sodium chloride, 10 mL, Intravenous, Q12H Continuous Infusions: PRN Meds:. acetaminophen OR acetaminophen OR acetaminophen senna-docusate sodium AND polyethylene glycol AND bisacodyl AND bisacodyl Calcium Replacement - Follow Nurse / BPA Driven Protocol HYDROcodone-acetaminophen ipratropium-albuterol Magnesium Standard Dose Replacement - Follow Nurse / BPA Driven Protocol nitroglycerin ondansetron ODT OR ondansetron Phosphorus Replacement - Follow Nurse / BPA Driven Protocol Potassium Replacement - Follow Nurse / BPA Driven Protocol sodium chloride sodium chloride Assessment & Plan Assessment & Plan Active Hospital Problems Diagnosis POA Right facial numbness [R20.0] Yes Hypothyroidism [E03.9] Yes Gastroesophageal reflux disease without esophagitis [K21.9] Yes Seizure disorder [G40.909] Yes Mixed hyperlipidemia [E78.2] Yes Benign essential hypertension [I10] Yes Congestive heart failure [I50.9] Yes Resolved Hospital Problems No resolved problems to display. Brief Hospital Course to date: Mu Perkins is a 70 y.o. female with hx CVA with residual incontinence, ischemic cardiomyopathy s/p dual chamber defibrillator, CAD s/p stent in 2016, HTN, COPD, seizure disorder, ZULEYKA on BiPAP, chronic chest pain, HLD, carpal tunnel, hypothyroidism who presents for R facial droop and possible hand numbness. R facial droop Hx CVA with residual incontinence - CT head shows hypo attenuation in the R thalamus but this does not correlate with pts symptoms - MRI negative - ECHO final read pending - continue ASA - no indication for DAPT from neuro perspective. Continue home ASA Hand numbness, chronic - chronic, pt reports carpal tunnel syndrome - areas of concern on he CT do not correlate Chronic chest pain CAD s/p stent 2016 - no symptoms since arrival here - had a recent nuclear stress test that was intermediate risk but reportedly poor study - pt has follow up with cardiology on 09/11 - continue ASA Seizures - continue keppra Ischemic cardiomyopathy CHF, unknown EF HTN - ECHO pending - pt follows with cardiology - continue bisoprolol HLD - continue statin Hypothyroidism - home synthroid Expected Discharge Location and Transportation: home, family can't get her until tomorrow Expected Discharge Expected discharge date/ time has not been documented. VTE Prophylaxis: Mechanical VTE prophylaxis orders are present. AM-PAC 6 Clicks Score (PT): 22 (08/26/25 2156) CODE STATUS: Code Status and Medical Interventions: CPR (Attempt to Resuscitate); Full Support Ordered at: 08/24/25 4286 Code Status (Patient has no pulse and is not breathing): CPR (Attempt to Resuscitate) Medical Interventions (Patient has pulse or is breathing): Full Support Level Of Support Discussed With: Patient Joselin Renteria MD 08/26/25 * Marisol PickensSHAKIRA - 08/26/2025 10:22 AM EDT Stroke Progress Note Chief Complaint: Right sided weakness/numbness Subjective Subjective Subjective: No new or worsening symptoms. Patient has persistent mild left arm weakness, left sided(face/arm/leg) has waxed and waned. Denies headache. Reviewed results of MRI with patient and discussed possible etiologies of her symptoms. Review of Systems Constitutional: Negative for fever. Eyes: Negative for visual disturbance. Respiratory: Negative for cough and shortness of breath. Cardiovascular: Negative for chest pain and palpitations. Gastrointestinal: Negative for nausea. Neurological: Positive for weakness and numbness. Negative for dizziness, facial asymmetry, speech difficulty and headaches. Psychiatric/Behavioral: Negative. Objective Objective Temp: [97.4 ??F (36.3 ??C)-98.3 ??F (36.8 ??C)] 97.7 ??F (36.5 ??C) Heart Rate: [60-85] 60 Resp: [15-18] 16 BP: (102-149)/(52-81) 109/66 Neurological Exam Mental Status Alert. Speech is normal. Language is fluent with no aphasia. Attention and concentration are normal. Cranial Nerves CN II: Visual aburto full to confrontation. CN III, IV, : Extraocular movements intact bilaterally. Normal lids and orbits bilaterally. Pupils equal round and reactive to light bilaterally. CN V: Facial sensation is normal. CN VII: Full and symmetric facial movement. CN XI: Shoulder shrug strength is normal. CN XII: Tongue midline without atrophy or fasciculations. Motor Normal muscle bulk throughout. No fasciculations present. Normal muscle tone. No abnormal involuntary movements. Strength is 5/5 in all four extremities except as noted. RUE 4/5. Sensory Light touch abnormality: Decreased in the right face, arm and leg. Coordination Xzreyy-[id number], rapid alternating movements and nlqy-kk-lcyd normal bilaterally without dysmetria. Gait Not tested. Physical Exam Vitals reviewed. Constitutional: Appearance: Normal appearance. HENT: Head: Normocephalic and atraumatic. Eyes: General: Lids are normal. Extraocular Movements: Extraocular movements intact. Pupils: Pupils are equal, round, and reactive to light. Cardiovascular: Rate and Rhythm: Normal rate. Pulmonary: Effort: Pulmonary effort is normal. No respiratory distress. Musculoskeletal: General: No swelling. Normal range of motion. Cervical back: Normal range of motion. Skin: General: Skin is warm and dry. Neurological: Mental Status: She is alert and oriented to person, place, and time. Cranial Nerves: Cranial nerve deficit present. Sensory: Sensory deficit present. Motor: Weakness present. Coordination: Coordination is intact. Psychiatric: Mood and Affect: Mood normal. Speech: Speech normal. Behavior: Behavior normal. Results Review: I reviewed the patient's new clinical results. MRI Brain Without Contrast Result Date: 08/25/2025 Impression: Essentially normal noncontrast MRI of the brain. No evidence of recent infarct, hemorrhage, mass or mass effect. Electronically Signed: Garrett Roberson MD 08/25/2025 8:02 PM EDT Workstation ID: [id number] WBC Date Value Ref Range Status 08/25/2025 4.93 3.40 - 10.80 10*3/mm3 Final RBC Date Value Ref Range Status 08/25/2025 3.89 3.77 - 5.28 10*6/mm3 Final Hemoglobin Date Value Ref Range Status 08/25/2025 11.7 (L) 12.0 - 15.9 g/dL Final Hematocrit Date Value Ref Range Status 08/25/2025 36.0 34.0 - 46.6 % Final MCV Date Value Ref Range Status 08/25/2025 92.5 79.0 - 97.0 fL Final MCH Date Value Ref Range Status 08/25/2025 30.1 26.6 - 33.0 pg Final MCHC Date Value Ref Range Status 08/25/2025 32.5 31.5 - 35.7 g/dL Final RDW Date Value Ref Range Status 08/25/2025 13.5 12.3 - 15.4 % Final RDW-SD Date Value Ref Range Status 08/25/2025 45.3 37.0 - 54.0 fl Final MPV Date Value Ref Range Status 08/25/2025 11.9 6.0 - 12.0 fL Final Platelets Date Value Ref Range Status 08/25/2025 145 140 - 450 10*3/mm3 Final Neutrophil % Date Value Ref Range Status 08/25/2025 47.7 42.7 - 76.0 % Final Lymphocyte % Date Value Ref Range Status 08/25/2025 43.0 19.6 - 45.3 % Final Monocyte % Date Value Ref Range Status 08/25/2025 5.5 5.0 - 12.0 % Final Eosinophil % Date Value Ref Range Status 08/25/2025 2.8 0.3 - 6.2 % Final Basophil % Date Value Ref Range Status 08/25/2025 0.6 0.0 - 1.5 % Final Immature Grans % Date Value Ref Range Status 08/25/2025 0.4 0.0 - 0.5 % Final Neutrophils, Absolute Date Value Ref Range Status 08/25/2025 2.35 1.70 - 7.00 10*3/mm3 Final Lymphocytes, Absolute Date Value Ref Range Status 08/25/2025 2.12 0.70 - 3.10 10*3/mm3 Final Monocytes, Absolute Date Value Ref Range Status 08/25/2025 0.27 0.10 - 0.90 10*3/mm3 Final Eosinophils, Absolute Date Value Ref Range Status 08/25/2025 0.14 0.00 - 0.40 10*3/mm3 Final Basophils, Absolute Date Value Ref Range Status 08/25/2025 0.03 0.00 - 0.20 10*3/mm3 Final Immature Grans, Absolute Date Value Ref Range Status 08/25/2025 0.02 0.00 - 0.05 10*3/mm3 Final nRBC Date Value Ref Range Status 08/25/2025 0.0 0.0 - 0.2 /100 WBC Final Lab Results Component Value Date GLUCOSE 127 (H) 08/25/2025 BUN 18.4 08/25/2025 CREATININE 1.00 08/25/2025 NA 138 08/25/2025 K 3.7 08/25/2025 CL 104 08/25/2025 CALCIUM 8.9 08/25/2025 PROTEINTOT 5.6 (L) 08/25/2025 ALBUMIN 3.7 08/25/2025 ALT 28 08/25/2025 AST 46 (H) 08/25/2025 ALKPHOS 49 08/25/2025 BILITOT 0.4 08/25/2025 GLOB 1.9 08/25/2025 AGRATIO 1.9 08/25/2025 BCR 18.4 08/25/2025 ANIONGAP 8.2 08/25/2025 EGFR 60.0 (L) 08/25/2025 Lab 08/25/25 0919 HEMOGLOBIN A1C 6.22* Lipid Panel 08/25/2025 09:19 Lipid Panel Total Cholesterol 117 Triglycerides 123 HDL Cholesterol 49 VLDL Cholesterol 22 LDL Cholesterol 46 LDL/HDL Ratio 0.89 Assessment/Plan Assessment/Plan:70 yr old female with a PMH significant for HTN, HLD, carotid stenosis, former tobacco abuse, seizure disorder, sleep apnea, CAD, s/p cardiac arrest (2021), tremor, ischemic cardiomyopathy, CTS, ICD, CHF, and COPD who presents to [facility] via transfer from [facility] where she initially presented with complaints of RFD, headache, and questionable RUE weakness (questionable baselineper patient report from OSH MD). Her LKW was reportedly 08/23/2025 at 3 AM. When she woke at 7 AM she noted R FD and RUE weakness. NIH 1. BP was 146/74. CTh revealed an area of hypoattenuation in theright thalamus suspicious for an age-indeterminate infarct. CTA H/N was negative for any flow-limiting stenosis or occlusion. Patient requested transfer to [facility] for further stroke workup. Antiplatelet GENERAL PARTNER: Aspirin 81 and Plavix 75 mg daily Anticoagulant GENERAL PARTNER: None Right sided weakness/numbness History of right thalamic stroke Chronic carpal tunnel Seizures -Persistent symptoms, could represent stuttering TIAs v MRI negaitve stroke -MRI brain is negative for ischemia. - OSH CT head had shown mild atherosclerosis, it does not appear these images are uploaded. I will ask staff to upload or have them Power[employer] from OSH - TTE showed EF of 56 to 60%, normal left atrium, negative bubble study - Continue DAPT (was on prior to admission), from our standpoint she only needs to be on aspirin -Continue home keppra - LDL 46, continue atorvastatin 40 mg daily - Normal blood pressure parameters, goal <130/80 - PT/OT following recommending [facility] at discharge -Follow up in the stroke clinic in 8 weeks (added to ADT) Discussed the importance of medication compliance Aspirin 81mg daily, and Atorvastatin 80mg nightlyand lifestyle modifications adequate control of blood pressure, adequate control of cholesterol (goal LDL <70), adequate control of glucose (<140, A1c goal <7), increased physical activity, and implementation of healthy diet to help reduce the risk of future cerebrovascular events. Also dis cussed the signs symptoms that would warrant the patient return back to the emergency department including unilateral weakness, unilateral numbness, visual disturbances, loss of balance, speech difficulties, and/or a sudden severe headache. Patient verbalized understanding. From our standpoint patient is ok for discharge, will follow in clinic. Please call with questions Marisol Pickens APRN 08/26/25 10:23 EDT * Joselin Renteria MD - 08/25/2025 4:24 PM EDT Images from the original note were not included. [facility] Medicine Services PROGRESS NOTE Patient Name: Mu Perkins : 1955 Date of Admission: 08/24/2025 Primary Care Physician: Marly Kumar APRN Subjective Subjective CC: R facial droop HPI: Pt feeling better today. Denies any recent chest pain or SOA. Objective Objective Vital Signs: Temp: [97.8 ??F (36.6 ??C)-98.3 ??F (36.8 ??C)] 98.3 ??F (36.8 ??C) Heart Rate: [66-136] 71 Resp: [16] 16 BP: (125-169)/(68-92) 126/81 Physical Exam Constitutional: General: She is not in acute distress. Cardiovascular: Rate and Rhythm: Normal rate and regular rhythm. Heart sounds: Normal heart sounds. Pulmonary: Effort: Pulmonary effort is normal. No respiratory distress. Breath sounds: Normal breath sounds. Abdominal: Palpations: Abdomen is soft. Tenderness: There is no abdominal tenderness. Musculoskeletal: Right lower leg: No edema. Left lower leg: No edema. Neurological: Mental Status: She is alert. Psychiatric: Mood and Affect: Mood normal. Thought Content: Thought content normal. Results Reviewed: LAB RESULTS: Lab 08/25/25 0919 08/24/251909 WBC 4.93 5.50 HEMOGLOBIN 11.7* 11.6* HEMATOCRIT 36.0 36.7 PLATELETS 145 143 NEUTROS ABS 2.35 2.12 IMMATURE GRANS (ABS) 0.02 0.01 LYMPHS ABS 2.12 2.74 MONOS ABS 0.27 0.44 EOS ABS 0.14 0.16 MCV 92.5 93.4 Lab 08/25/2591808/24/251909 SODIUM 138 139 POTASSIUM 3.7 4.0 CHLORIDE 104 107 CO2 25.8 23.3 ANION GAP 8.2 8.7 BUN 18.4 20.7 CREATININE 1.00 1.08* EGFR 60.0* 54.7* GLUCOSE 127* 94 CALCIUM 8.9 8.9 MAGNESIUM 1.6 1.9 HEMOGLOBIN A1C 6.22* -- Lab 08/25/2591808/24/251909 TOTAL PROTEIN 5.6* 6.0 ALBUMIN 3.7 3.5 GLOBULIN 1.9 2.5 ALT (SGPT) 28 17 AST (SGOT) 46* 28 BILIRUBIN 0.4 0.2 ALK PHOS 49 56 Lab 08/25/25918 CHOLESTEROL 117 LDL CHOL 46 HDL CHOL 49 TRIGLYCERIDES 123 Brief Urine Lab Results None Microbiology Results Abnormal None No radiology results from the last 24 hrs I have personally reviewed the therapy plans: [] PT/OT/ ST Therapy Plans Current medications: Scheduled Meds:aspirin, 81 mg, Oral, Daily Or aspirin, 300 mg, Rectal, Daily atorvastatin, 40 mg, Oral, Nightly bisoprolol, 5 mg, Oral, Daily budesonide-formoterol, 2 puff, Inhalation, BID - RT clopidogrel, 75 mg, Oral, Daily furosemide, 40 mg, Oral, BID levETIRAcetam, 1,000 mg, Oral, BID levothyroxine, 88 mcg, Oral, Daily melatonin, 5 mg, Oral, Nightly nystatin, 1 Application, Topical, Q12H pantoprazole, 40 mg, Oral, Q AM QUEtiapine, 25 mg, Oral, Nightly rOPINIRole, 1 mg, Oral, Nightly sodium chloride, 10 mL, Intravenous, Q12H Continuous Infusions: PRN Meds:. acetaminophen OR acetaminophen OR acetaminophen senna-docusate sodium AND polyethylene glycol AND bisacodyl AND bisacodyl Calcium Replacement - Follow Nurse / BPA Driven Protocol HYDROcodone-acetaminophen ipratropium-albuterol Magnesium Standard Dose Replacement - Follow Nurse / BPA Driven Protocol nitroglycerin ondansetron ODT OR ondansetron Phosphorus Replacement - Follow Nurse / BPA Driven Protocol Potassium Replacement - Follow Nurse / BPA Driven Protocol sodium chloride sodium chloride Assessment & Plan Assessment & Plan Active Hospital Problems Diagnosis POA Right facial numbness [R20.0] Yes Hypothyroidism [E03.9] Yes Gastroesophageal reflux disease without esophagitis [K21.9] Yes Seizure disorder [G40.909] Yes Mixed hyperlipidemia [E78.2] Yes Benign essential hypertension [I10] Yes Congestive heart failure [I50.9] Yes Resolved Hospital Problems No resolved problems to display. Brief Hospital Course to date: Mu Perkins is a 70 y.o. female with hx CVA with residual incontinence, ischemic cardiomyopathy s/p dual chamber defibrillator, CAD s/p stent in 2016, HTN, COPD, seizure disorder, ZULEYKA on BiPAP, chronic chest pain, HLD, carpal tunnel, hypothyroidism who presents for R facial droop and possible hand numbness. R facial droop Hx CVA with residual incontinence - CT head shows hypo attenuation in the R thalamus but this does not correlate with pts symptoms - MRI pending - ECHO pending - continue ASA - no indication for DAPT from neuro perspective. Appears pt was only on ASA at home not plavix. Hercardiac stent was in 2016 so ASA monotherapy should be appropriate. Will clarify home med list. Hand numbness, chronic - chronic, pt reports carpal tunnel syndrome - areas of concern on he CT do not correlate Chronic chest pain CAD s/p stent 2016 - no symptoms since arrival here - had a recent nuclear stress test that was intermediate risk but reportedly poor study - pt has follow up with cardiology on 09/11 - continue ASA Seizures - continue keppra Ischemic cardiomyopathy CHF, unknown EF HTN - ECHO pending - pt follows with cardiology - continue bisoprolol HLD - continue statin Hypothyroidism - home synthroid Expected Discharge Location and Transportation: home Expected Discharge Expected discharge date/ time has not been documented. VTE Prophylaxis: Mechanical VTE prophylaxis orders are present. AM-PAC 6 Clicks Score (PT): 19 (08/25/25 1508) CODE STATUS: Code Status and Medical Interventions: CPR (Attempt to Resuscitate); Full Support Ordered at: 08/24/25 0123 Code Status (Patient has no pulse and is not breathing): CPR (Attempt to Resuscitate) Medical Interventions (Patient has pulse or is breathing): Full Support Level Of Support Discussed With: Patient Joselin Renteria MD 08/25/25 * Ja Chavez MD - 08/25/2025 9:16 AM EDT Stroke Progress Note Chief Complaint: Right facial droop, right upper extremity weakness Subjective Subjective Subjective: The patient is lying down in the bed in NAD. Patient continues to have right sided sensory changes and some weakness. No other acute complains at this time Objective Temp: [97.7 ??F (36.5 ??C)-98.1 ??F (36.7 ??C)] 98.1 ??F (36.7 ??C) Heart Rate: [69-136] 76 Resp: [16] 16 BP: (145-176)/(73-92) 159/77 Objective GEN: lying in bed; in NAD HENT: normocephalic NEURO: Awake and alert. Oriented to self, time, place, and situation. Language is fluent with good comprehension. No evidence of aphasia Pupils are equal, round, and reactive to light. Visual aburto are full to confrontational testing. Extraocular movements intact. Face is symmetric at rest and with activation. Facial sensation is intact. Hearing grossly intact. No dysarthria. Tongue protrudes midline. No abnormal movements. Slight drift in right upper and right lower extremities. Decreased sensation to light touch in right hemibody. Coordination intact on [id number]. Reflexes and gait deferred. Results Review: I reviewed the patient's new clinical results. WBC Date Value Ref Range Status 08/24/2025 5.50 3.40 - 10.80 10*3/mm3 Final RBC Date Value Ref Range Status 08/24/2025 3.93 3.77 - 5.28 10*6/mm3 Final Hemoglobin Date Value Ref Range Status 08/24/2025 11.6 (L) 12.0 - 15.9 g/dL Final Hematocrit Date Value Ref Range Status 08/24/2025 36.7 34.0 - 46.6 % Final MCV Date Value Ref Range Status 08/24/2025 93.4 79.0 - 97.0 fL Final MCH Date Value Ref Range Status 08/24/2025 29.5 26.6 - 33.0 pg Final MCHC Date Value Ref Range Status 08/24/2025 31.6 31.5 - 35.7 g/dL Final RDW Date Value Ref Range Status 08/24/2025 13.5 12.3 - 15.4 % Final RDW-SD Date Value Ref Range Status 08/24/2025 46.2 37.0 - 54.0 fl Final MPV Date Value Ref Range Status 08/24/2025 11.7 6.0 - 12.0 fL Final Platelets Date Value Ref Range Status 08/24/2025 143 140 - 450 10*3/mm3 Final Neutrophil % Date Value Ref Range Status 08/24/2025 38.6 (L) 42.7 - 76.0 % Final Lymphocyte % Date Value Ref Range Status 08/24/2025 49.8 (H) 19.6 - 45.3 % Final Monocyte % Date Value Ref Range Status 08/24/2025 8.0 5.0 - 12.0 % Final Eosinophil % Date Value Ref Range Status 08/24/2025 2.9 0.3 - 6.2 % Final Basophil % Date Value Ref Range Status 08/24/2025 0.5 0.0 - 1.5 % Final Immature Grans % Date Value Ref Range Status 08/24/2025 0.2 0.0 - 0.5 % Final Neutrophils, Absolute Date Value Ref Range Status 08/24/2025 2.12 1.70 - 7.00 10*3/mm3 Final Lymphocytes, Absolute Date Value Ref Range Status 08/24/2025 2.74 0.70 - 3.10 10*3/mm3 Final Monocytes, Absolute Date Value Ref Range Status 08/24/2025 0.44 0.10 - 0.90 10*3/mm3 Final Eosinophils, Absolute Date Value Ref Range Status 08/24/2025 0.16 0.00 - 0.40 10*3/mm3 Final Basophils, Absolute Date Value Ref Range Status 08/24/2025 0.03 0.00 - 0.20 10*3/mm3 Final Immature Grans, Absolute Date Value Ref Range Status 08/24/2025 0.01 0.00 - 0.05 10*3/mm3 Final nRBC Date Value Ref Range Status 08/24/2025 0.0 0.0 - 0.2 /100 WBC Final Lab Results Component Value Date GLUCOSE 94 08/24/2025 BUN 20.7 08/24/2025 CREATININE 1.08 (H) 08/24/2025 NA 139 08/24/2025 K 4.0 08/24/2025 CL 107 08/24/2025 CALCIUM 8.9 08/24/2025 PROTEINTOT 6.0 08/24/2025 ALBUMIN 3.5 08/24/2025 ALT 17 08/24/2025 AST 28 08/24/2025 ALKPHOS 56 08/24/2025 BILITOT 0.2 08/24/2025 GLOB 2.5 08/24/2025 AGRATIO 1.4 08/24/2025 BCR 19.2 08/24/2025 ANIONGAP 8.7 08/24/2025 EGFR 54.7 (L) 08/24/2025 No radiology results for the last day Assessment/Plan Assessment: # Concern for possible acute ischemic stroke #Hypertension #Hyperlipidemia #Carotid stenosis #Former tobacco abuse #Coronary artery disease #Ischemic cardiomyopathy #CHF 70 yr old female with a PMH significant for HTN, HLD, carotid stenosis, former tobacco abuse, seizure disorder (on Keppra 1 g twice daily), sleep apnea, CAD, s/p cardiac arrest (2021), tremor, ischemic cardiomyopathy, CTS, ICD, CHF, thyroid disease, and COPD who presents to [facility] via transfer from [facility] where she initially presented with complaints of RFD, headache, and RUE weakness (questionable baseline per patient report from [facility] ). Her LKW was reportedly 08/23/2025 at 3 AM. NIH 1. BP was 146/74. CTH revealed an area of hypoattenuation in the right thalamus suspicious for an age-indeterminate infarct. CTA H/N was negative for any flow-limiting stenosis or occlusion. Patient requested transfer to [facility] for further stroke workup. Imaging: CT head read by radiology with potential age indeterminate infarct in the right thalamus, though this appears questionable. Mild intracranial and extracranial atherosclerotic plaque on CTA head and neck. Echocardiogram: EF 56 to 60%. Normal-sized left atrium. Bubble study negative. GENERAL PARTNER antiplatelet/anticoagulation/statin: Aspirin 81 mg, Plavix 75 mg, atorvastatin 40 mg Pertinent labs: LDL 46, A1c 6.22 CT head with questionable infarct in the right thalamus. Will obtain MRI brain for further evaluation. Right thalamic infarct would not correspond to right sided weakness and sensory changes. Of note, patient does have history of seizure disorder though postictal phenomenon would be unlikely to persist for this amount of time. 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 Stroke will continue to follow. Please call for any further questions or concerns Ja Chavez MD Vascular Neurologist [facility] documented in this encounter H&P Notes * Samantha Castillo, DO - 08/24/2025 3:30 PM EDT Images from the original note were not included. [facility] Medicine Services HISTORY AND PHYSICAL Patient Name: Mu Perkins : 1955 Primary Care Physician: Marly Kumar, SHAKIRA Date of admission: 08/24/2025 Subjective Subjective Chief Complaint: Stoke alert HPI: Reason for Admit: Right facial droop and questionable right upper extremity weakness. The patient is a 70-year-old female presenting from [facility] with right facial droop and questionable right upper extremity weakness, with the last known well time being yesterday. She has a past medical history significant for previous cerebrovascular accident (CVA), hyperlipidemia, and seizures. She is on Keppra at home and takes aspirin 81 mg daily. She was transferred to our facility for a stroke neurology evaluation and an MRI of the brain. She began experiencing right facial numbness and drooping on 08/23/2025, around 5:00 PM.The symptoms have remained consistent since their onset. She recalls having a headache prior to theonset of these symptoms. Upon waking between 5:00 and 5:30 AM, she noticed numbness on the right side of her face. Her daughter observed increased drooping of her eyes, prompting her to seek medical attention at [facility]. She continues to experience mild numbness on the right side of her face. She also reports numbness in her hands, which she attributes to carpal tunnel syndrome, and is uncertainif this is related to her current condition. She reports no nausea or abdominal pain. She has a history of stroke, which resulted in residual bowel and bladder incontinence. Her blood pressure has been fluctuating, and she takes medication to manage it when it drops too low. Will hold her home midodrine for now She experiences intermittent chest pain and has been diagnosed with a heart blockage following an ultrasound of her heart. A heart catheterization was discussed but not performed. Plans for repeat echo at this time, no active chest pain She has been experiencing ankle swelling and is currently taking Lasix. Personal History Past Medical History: Diagnosis Date ??? Acute [...] REPAIR Left ??? SUBCLAVIAN / PULMONARY SHUNT Family History: family history is not on file. Social History: reports that she has quit smoking. Her smoking use included cigarettes. She has been exposed to tobacco smoke. She has never used smokeless tobacco. She reports that she does not currently use alcohol. She reports that she does not use drugs. Social History Social History Narrative ??? Not on file Medications: Available home medication information reviewed. HYDROcodone-acetaminophen, QUEtiapine, albuterol sulfate HFA, aspirin, atorvastatin, bisoprolol, budesonide-formoterol, calcium carb-cholecalciferol, clopidogrel, enoxaparin sodium, fenofibrate, furosemide, hydrOXYzine, lactulose, levETIRAcetam, levothyroxine, loratadine, magnesium oxide, metoclopramide, midodrine, mirtazapine, nitroglycerin, nystatin, omeprazole, ondansetron, potassium chloride,rOPINIRole, and tiZANidine Allergies Allergen Reactions ??? Alendronate Sodium Hives ??? Gabapentin Irritability ??? Penicillins Hives, Itching and Unknown - Low Severity ??? Sulfa Antibiotics Unknown - Low Severity ??? Tamsulosin Other (See Comments) Sick to stomach Objective Objective Vital Signs: Temp: [97.7 ??F (36.5 ??C)] 97.7 ??F (36.5 ??C) Heart Rate: [103] 103 Resp: [16] 16 BP: (176)/(79) 176/79 Total (NIH Stroke Scale): 3 Physical Exam General: Patient is a frail, 70-year-old female resting comfortably sitting up in chair. She is awake, alert, and oriented x3. Head: Normocephalic and atraumatic. Eyes: Extraocular motions are intact. Nose: Nares are patent. Throat: Mucous membranes are moist. Neck: Normal range of motion and is supple. Cardiac: Heart has a regular rate and rhythm. Respiratory: Breath sounds are decreased bilaterally. No rhonchi, wheezing, or crackles. Abdominal: Abdomen is soft, nontender, and nondistended. Extremities: Trace bilateral lower extremity edema. No clubbing or cyanosis. Neurologic: Cranial nerves II through XII are otherwise intact except for sensory deficits on the right face. No other obvious focal deficits. Psychiatric: Mood is appropriate and patient is cooperative. Result Review: I have personally reviewed the results from the time of this admission to 08/24/2025 17:08 EDT and agree with these findings: [] Laboratory list / accordion [] Microbiology [] Radiology [] EKG/Telemetry [] Cardiology/Vascular [] Pathology [x] Old records [] Other: Labs pending at this time Imaging - CT of the head: Shows hypoattenuation right thalamus. - CTA head and neck: Negative at outside facility. LAB RESULTS: Microbiology Results (last 10 days) No results found for the last [address] Outside Head Result Date: 08/24/2025 This procedure was auto-finalized with no dictation required. CT Outside Head Result Date: 08/24/2025 This procedure was auto-finalized with no dictation required. CT Outside Neck Result Date: 08/24/2025 This procedure was auto-finalized with no dictation required. Assessment & Plan Assessment & Plan Code Status: Full code 1. Right facial droop. Stroke Like Symptoms, hx previous CVA - She presents with right facial droop and questionable right upper extremity weakness, with the last known well on afternoon of 08/23, symptoms however have persisted and prompted evaluation at outside ED earlier today. - Her NIH score at the outside facility was 1. - A CT of the head showed hypoattenuation in the right thalamus, and a CTA of the head and neck wasnegative. - She will be admitted for further evaluation by the stroke team and an MRI of the brain will be conducted. Patient with history of ICD and pending cardiac clearance - Will allow for permissive HTN at this time - Labs ordered and pending at our facility at this time - Plans for Asa/Plavix per stroke at this time 2. History of cerebrovascular accident (CVA). - She has a past medical history significant for a previous CVA, which resulted in incontinence issues. - Continued monitoring and management of her current symptoms are necessary. 3. Hyperlipidemia. - She has a history of hyperlipidemia. - Current medication regimen will be reviewed and adjusted as necessary. - Started on high intensity statin 4. Seizures. - She is on Keppra at home for seizure management. - Current medication regimen will be reviewed and adjusted as necessary. 5. Chest pain. - She reports intermittent chest pain and has a known blockage identified via ultrasound. - A repeat echo of the heart will be performed as part of the stroke workup. - No recent chest pain or currently present - Further cardiology evaluation may be necessary. 6. Hx chronic Carpal tunnel syndrome. - She reports numbness in her hands, which she attributes to carpal tunnel syndrome. - Differential diagnosis includes stroke-related numbness. - Further evaluation by physical and occupational therapists will be conducted. 7. Hx CHF, unknown EF S/p ICD B/L Ankle swelling. - She is on Lasix for fluid management. - Repeat echo pending at this time - Continued monitoring and adjustment of her diuretic therapy will be necessary. 8. Hypothyroidism - Restarted home synthroid 9. HTN - Okay for home bisoprolol - Monitor blood pressure at this time Right facial numbness Benign essential hypertension Congestive heart failure Hypothyroidism Gastroesophageal reflux disease without esophagitis Mixed hyperlipidemia Seizure disorder VTE Prophylaxis: Pharmacologic & mechanical VTE prophylaxis orders are present. CODE STATUS: Code Status and Medical Interventions: CPR (Attempt to Resuscitate); Full Support Ordered at: 08/24/25 1543 Code Status (Patient has no pulse and is not breathing): CPR (Attempt to Resuscitate) Medical Interventions (Patient has pulse or is breathing): Full Support Level Of Support Discussed With: Patient Expected Discharge Expected discharge date/ time has not been documented. Josh Castillo DO 08/24/25 Patient or patient account maintenance representative verbalized consent for the use of Ambient Listening during the visit for chart documentation. documented in this encounter Consult Notes * Cat Cárdenas RN - 08/25/2025 12:47 PM EDTAssociated Order(s): IP CONSULT TO [facility] Chart review for health educator consult. At the time of this review patient A1c is 6.2 , they have no noted history of diabetes and no home medications noted for treatment of diabetes. At this time we do not feel the patient would benefit from diabetes education. Thank you for this consult, should patient needs change please re consult us. * Marisol Pickens APRN - 08/24/2025 8:25 AM EDT Stroke Consult Note Patient Name: Mu Perkins Age: 70 y.o. Sex: female : 1955 Primary Care Physician: Marly Kumar APRN Referring Physician: Dr. Castillo Handedness: Right Race: Chief Complaint/Reason for Consultation: Right sided weakness and facial droop HPI: Mu Perkins is a 70 yr old female with a PMH significant for HTN, HLD, carotid stenosis, former tobacco abuse, seizure disorder, sleep apnea, CAD, s/p cardiac arrest (2021), tremor, ischemic cardiomyopathy, CTS, ICD, CHF, and COPD who presents to [facility] via transfer from [facility] while where she initially presented with complaints of RFD, headache, and questionable RUE weakness (questionable baseline per patient report from [facility] MD). Her LKW was reportedly 08/23/2025 at 3 AM. When she woke at 7 AM she noted R FD and RUE weakness. NIH 1. BP was 146/74. CTh revealed an area of hypoattenuation in the right thalamus suspicious for an age-indeterminate infarct. CTA H/N was negative for any flow- limiting stenosis or occlusion. Patient requested transfer to [facility] for further stroke workup. Last Known Normal Date/Time: 08/23/25 0300 EST Review of Systems HENT: Negative for trouble swallowing. Eyes: Negative for visual disturbance. Respiratory: Negative for cough and shortness of breath. Cardiovascular: Negative for chest pain and palpitations. Gastrointestinal: Negative for nausea and vomiting. Musculoskeletal: Negative. Skin: Negative. Neurological: Positive for facial asymmetry, weakness and headaches. Negative for dizziness, speechdifficulty and numbness. Psychiatric/Behavioral: Negative. Past Medical History: Diagnosis Date Acute on [...] NERVE REPAIR Left SUBCLAVIAN / PULMONARY SHUNT No family history on file. Social History Socioeconomic History Marital status: Tobacco Use Smoking status: Former Current packs/day: 1.00 Types: Cigarettes Passive exposure: Past Smokeless tobacco: Never Vaping Use Vaping status: Never Used Substance and Sexual Activity Alcohol use: Not Currently Drug use: Never Sexual activity: Defer Allergies Allergen Reactions Alendronate Sodium Hives Gabapentin Irritability Penicillins Hives, Itching and Unknown - Low Severity Sulfa Antibiotics Unknown - Low Severity Tamsulosin Other (See Comments) Sick to stomach Prior to Admission medications Medication Sig Start Date End Date Taking? Authorizing Provider albuterol sulfate HFA (Ventolin HFA) 108 (90 Base) MCG/ACT inhaler Inhale 2 puffs 4 (Four) Times a Day. Miya Vegas MD aspirin 81 MG EC tablet Take 1 tablet by mouth Daily. Miya Vegas MD atorvastatin (LIPITOR) 40 MG tablet Take 1 tablet by mouth every night at bedtime. Miya Vegas MD bisoprolol (ZEBeta) 5 MG tablet TAKE 1 TABLET BY MOUTH DAILY 07/28/25 Kailey Porras APRN budesonide-formoterol (SYMBICORT) 160-4.5 MCG/ACT inhaler Inhale 2 puffs 2 (Two) Times a Day. 05/18/24 Miya Vegas MD calcium carb-cholecalciferol 600-10 MG-MCG tablet per tablet Take 1 tablet by mouth Daily. 09/28/24Miya Vegas MD fenofibrate (TRICOR) 145 MG tablet Take 1 tablet by mouth every night at bedtime. Miya Vegas MD furosemide (LASIX) 40 MG tablet Take 1 tablet by mouth 2 (Two) Times a Day. 03/17/25 Kailey Porras APRN hydrOXYzine (ATARAX) 25 MG tablet Take 1 tablet by mouth Every 6 (Six) Hours As Needed. Miya Vegas MD lactulose (CHRONULAC) 10 GM/15ML solution take 15 ML BY MOUTH THREE TIMES A DAY NEEDED FOR CONSTIPATION titrate TO maintain 3-5 bowel movements PER DAY] 04/26/25 Miya Vegas MD levETIRAcetam (KEPPRA) 1000 MG tablet Take 1 tablet by mouth 2 (Two) Times a Day. Miya Vegas MD levothyroxine (SYNTHROID, LEVOTHROID) 75 MCG tablet Take 1 tablet by mouth Daily. Miya Vegas MD loratadine (CLARITIN) 10 MG tablet Take 1 tablet by mouth Daily. Miya Vegas MD magnesium oxide (MAG-OX) 400 MG tablet TAKE ONE TABLET BY MOUTH EVERY DAY 06/09/25 Dinorah Christiansen MD metoclopramide (REGLAN) 5 MG tablet TAKE ONE TABLET BY MOUTH BEFORE each MEAL Miya Vegas MD mirtazapine (REMERON) 30 MG tablet Take 1 tablet by mouth every night at bedtime. Miya Vegas MD nitroglycerin (NITROSTAT) 0.4 MG SL tablet 1 under the tongue as needed for angina, may repeat q5mins for up three doses 02/01/25 Kailey Porras APRN nystatin (MYCOSTATIN) 107328 UNIT/GM cream Apply 2 applications topically daily to affected areas as needed 04/11/25 Miya Vegas MD omeprazole (priLOSEC) 40 MG capsule Take 1 capsule by mouth Daily. Miya Vegas MD ondansetron (ZOFRAN) 4 MG tablet Take 1 tablet by mouth Every 8 (Eight) Hours As Needed. Miya Vegas MD ondansetron ODT (ZOFRAN-ODT) 8 MG disintegrating tablet DISSOLVE ONE TABLET UNDER THE TONGUE every EIGHT hours NEEDED, FOR NAUSEA Miya Vegas MD potassium chloride 10 MEQ CR tablet Take 1 tablet by mouth 2 (Two) Times a Day. Patient taking differently: Take 2 tablets by mouth 2 (Two) Times a Day. 01/04/25 Dinorah Christiansen MD QUEtiapine (SEROquel) 25 MG tablet Take 0.5-1 tablets by mouth Daily. 09/08/24 Miya Vegas MD rOPINIRole (REQUIP) 1 MG tablet TAKE ONE TABLET BY MOUTH AT BEDTIME for restless legs 04/26/25 Miya Vegas MD tiZANidine (ZANAFLEX) 4 MG tablet TAKE 1/2 TABLET TO ONE TABLET EVERY SIX HOURS NEEDED FOR PAIN ProviderMiya MD BP: ()/() Arterial Line BP: ()/() Neurological Exam Mental Status Alert. Speech is normal. Language is fluent with no aphasia. Attention and concentration are normal. Cranial Nerves CN II: Visual aburto full to confrontation. CN III, IV, : Extraocular movements intact bilaterally. Normal lids and orbits bilaterally. Pupils equal round and reactive to light bilaterally. CN V: Right: Diminished sensation of the entire right side of the face. CN VII: Full and symmetric facial movement. CN XI: Shoulder shrug strength is normal. CN XII: Tongue midline without atrophy or fasciculations. Motor Normal muscle bulk throughout. No fasciculations present. Normal muscle tone. No abnormal involuntary movements. Strength is 5/5 in all four extremities except as noted. RUE 4/5, BLE 4/5. Sensory Right hemisensory loss. Gait Not tested. Physical Exam Vitals reviewed. HENT: Head: Normocephalic and atraumatic. Eyes: General: Lids are normal. Extraocular Movements: Extraocular movements intact. Pupils: Pupils are equal, round, and reactive to light. Cardiovascular: Rate and Rhythm: Normal rate and regular rhythm. Pulmonary: Effort: Pulmonary effort is normal. No respiratory distress. Musculoskeletal: General: No swelling. Normal range of motion. Skin: General: Skin is warm and dry. Neurological: Mental Status: She is alert and oriented to person, place, and time. Cranial Nerves: Cranial nerve deficit present. Sensory: Sensory deficit present. Motor: No weakness. Psychiatric: Mood and Affect: Mood normal. Speech: Speech normal. Behavior: Behavior normal. Acute Stroke Data Thrombolytic Inclusion / Exclusion Criteria Time: 08:25 EDT Person Administering Scale: Lili Bueno APRN YES NO INCLUSION CRITERIA CLASS I [x] [] Suspected diagnosis of acute ischemic stroke with measureable neurological deficit. Low NIHSS with disabling stroke symptoms. [] [x] Onset of stroke symptoms < 3 hours before beginning treatment >/ 18 years old Stroke symptom onset = time patient was last seen well or without symptoms (LKW) [] [x] Onset of symptoms between 3-4.5 hours: >/= 80 years old (safe Class IIa) with history of both diabetes and prior CVA (reasonable Class IIb) AND NIHSS </= 25 *If not eligible for IV Thrombolytic consider neuro intervention for LKW within 24 hours YES NO EXCLUSION CRITERIA (CONTRAINDICATIONS) CLASS III EVIDENCE HARM [] [] Blood pressure >185/110 medically refractory to IV medications [] [] Active bleeding at a non-compressible site [] [] Active intracranial hemorrhage (ICH) [] [] Symptoms suggestive of subarachnoid hemorrhage (SAH) [] [] GI bleed within 21 days [] [] Ischemic stroke within 3 months [] [] Severe head trauma within 3 months [] [] Intracranial or intraspinal surgery within 3 months [] [] Current GI malignancy [] [] Intracranial neoplasm [] [] Infective endocarditis [] [] Aortic arch dissection [] [] Active coagulopathy with INR >1.7, platelets <100,000, PTT > 40 sec, PT > 15 sec *For warfarin, administration can begin before blood tests resulted. Discontinue for above values. [] [] Treatment dose* of LMWH (Lovenox) in last 24 hours *prophylactic dosages are not a contraindication [] [] Concurrent use of antiplatelet agents' glycoprotein inhibitors IIb/IIIa (Integrilin, etc.) [] [] Thrombin or factor Xa inhibitors (Eliquis, Xarelto, Arixtra) taken in last 48 hours YES NO CLASS II: AIS WITH THE FOLLOWING CONDITIONS - TREATMENT RISKS SHOULD BE WEIGHED AGAINST POSSIBLE BENEFITS. [] [] Major trauma in last 14 days, recent major surgery in last 14 days, intracranial arterial dissection, giant unruptured and unsecured intracranial aneurysm, pericarditis [] [] The risks, benefits, and alternatives have been discussed with the patient or family related to the administration of IV thrombolytic therapy for stroke symptoms. [] [] I have discussed and reviewed the patient's case and imaging with the attending prior to IV thrombolytic therapy. TIME Time IV thrombolytic administered Hospital Meds: Scheduled- Infusions- No current facility-administered medications for this encounter. PRNs- Functional Status Prior to Current Stroke/Laina Score: MODIFIED LAINA SCALE (to be assessed for each patient having history of stroke) []Stroke history but not assessed []0: No symptoms at all [x]1: No significant disability despite symptoms []2: Slight disability []3: Moderate disability []4: Moderately severe disability []5: Severe disability []6: NIH Stroke Scale Time: 08:25 EDT Person Administering Scale: Lili Bueno APRN 1a Level of consciousness: 0=alert; keenly responsive 1b. LOC questions: 0=Answers both questions correctly 1c. LOC commands: 0=Performs both tasks correctly 2. Best Gaze: 0=normal 3. Visual: 0=No visual loss 4. Facial Palsy: 0=Normal symmetric movement 5a. Motor left arm: 0=No drift, limb holds 90 (or 45) degrees for full 10 seconds 5b. Motor right arm: 0=No drift, limb holds 90 (or 45) degrees for full 10 seconds 6a. motor left le=No drift, limb holds 90 (or 45) degrees for full 10 seconds 6b Motor right le=No drift, limb holds 90 (or 45) degrees for full 10 seconds 7. Limb Ataxia: 0=Absent 8. Sensory: 1=Mild to moderate sensory loss; patient feels pinprick is less sharp or is dull on theaffected side; there is a loss of superficial pain with pinprick but patient is aware He is being touched 9. Best Language: 0=No aphasia, normal 10. Dysarthria: 0=Normal 11. Extinction and Inattention: 0=No abnormality Total: 1 Results Reviewed: I have personally reviewed current lab, radiology, and data. Lab Results Component Value Date GLUCOSE 93 04/06/2025 BUN 34.4 (H) 04/06/2025 CREATININE 1.30 04/06/2025 NA 141 04/06/2025 K 4.0 04/06/2025 CL 100 04/06/2025 CALCIUM 9.1 04/06/2025 PROTEINTOT 6.7 04/06/2025 ALBUMIN 4.0 04/06/2025 ALT 15 04/06/2025 AST 24 04/06/2025 ALKPHOS 82 04/06/2025 BILITOT 0.2 04/06/2025 GLOB 2.7 04/06/2025 AGRATIO 1.5 04/06/2025 BCR 32.5 (H) 04/06/2025 ANIONGAP 15.0 04/06/2025 EGFR 44.1 (L) 04/06/2025 OSH imaging will be uploaded - disc was sent Assessment/Plan: 70 yr old female with a PMH significant for HTN, HLD, carotid stenosis, former tobacco abuse, seizure disorder (on Keppra 1 g twice daily), sleep apnea, CAD, s/p cardiac arrest (2021), tremor, ischemic cardiomyopathy, CTS, ICD, CHF, thyroid disease, and COPD who presents to [facility] via transfer from [facility] where she initially presented with complaints of RFD, headache, and RUE weakness (questionable baseline per patient report from OSH MD). Her LKW was reportedly 08/23/2025 at 3 AM. NIH 1. BP was 146/74. CTH revealed an area of hypoattenuation in the right thalamus suspicious for an age-indeterminate infarct. CTA H/N was negative for any flow-limiting stenosis or occlusion. Patient requested transfer to [facility] for further stroke workup. Antiplatelet GENERAL PARTNER: Aspirin 81 mg daily, plavix 75 mg daily Anticoagulant GENERAL PARTNER: None #RFD, headache, RUE #Reported age-indeterminate right thalamic hypodensity #Hx seizure disorder #Multiple vascular risk factors (HTN, HLD, prior tobacco abuse, ZULEYKA) - Possible TIA, stroke/recrudescence, seizure, or complex migraine - Reported right thalamic age-indeterminate hypodensity does not correlate with patient's presenting symptoms. - MRI brain pending cardiology clearance - If unable to obtain MRI brain, will repeat CT head - TTE with bubble - aspirin 81 mg daily -Continue plavix 75 mg daily - atorvastatin 40 mg nightly - Hemoglobin A1c, lipid panel pending - Okay to begin normalizing BP goals <130/80. Further management per primary team. - N.p.o. unless dysphagia is passed - PT/OT/TELEGRAPH EQUIPMENT MAINTAINER - Activity as tolerated/fall precautions - Plan discussed with the patient, Dr. Chavez, primary team, and nursing staff. Stroke Neurology will continue to follow. Please call with any questions or concerns. Marisol Pickens APRN August 24, 2025 08:25 EDT documented in this encounter Nursing Notes * Mira Nava RN - 08/26/2025 6:46 PM EDT Problem: Adult Inpatient Plan of Care Goal: Plan of Care Review Outcome: Progressing Goal: Patient-Specific Goal (Individualized) Outcome: Progressing Goal: Absence of Hospital-Acquired Illness or Injury Outcome: Progressing Intervention: Identify and Manage Fall Risk Recent Flowsheet Documentation Taken 08/26/2025 1600 by Mira Nava RN Safety Promotion/Fall Prevention: assistive device/personal items within reach clutter free environment maintained nonskid shoes/slippers when out of bed safety round/check completed room organization consistent Taken 08/26/2025 1200 by Mira Nava RN Safety Promotion/Fall Prevention: assistive device/personal items within reach clutter free environment maintained nonskid shoes/slippers when out of bed safety round/check completed room organization consistent Taken 08/26/2025 0800 by Mira Nava RN Safety Promotion/Fall Prevention: assistive device/personal items within reach clutter free environment maintained nonskid shoes/slippers when out of bed safety round/check completed room organization consistent Intervention: Prevent Skin Injury Recent Flowsheet Documentation Taken 08/26/2025 1600 by Mira Nava RN Body Position: position changed independently Skin Protection: pulse oximeter probe site changed Taken 08/26/2025 1200 by Mira Nava RN Body Position: position changed independently Skin Protection: pulse oximeter probe site changed Taken 08/26/2025 0800 by Mira Nava RN Body Position: position changed independently Skin Protection: pulse oximeter probe site changed Intervention: Prevent and Manage VTE (Venous Thromboembolism) Risk Recent Flowsheet Documentation Taken 08/26/2025 1600 by Mira Nava RN VTE Prevention/Management: patient refused intervention Taken 08/26/2025 1200 by Mira Nava RN VTE Prevention/Management: patient refused intervention Taken 08/26/2025 0800 by Mira Nava RN VTE Prevention/Management: patient refused intervention Intervention: Prevent Infection Recent Flowsheet Documentation Taken 08/26/2025 1600 by Mira Nava RN Infection Prevention: single patient room provided environmental surveillance performed equipment surfaces disinfected Taken 08/26/2025 1200 by Mira Nava RN Infection Prevention: single patient room provided environmental surveillance performed equipment surfaces disinfected Taken 08/26/2025 0800 by Mira Nava RN Infection Prevention: single patient room provided environmental surveillance performed equipment surfaces disinfected Goal: Optimal Comfort and Wellbeing Outcome: Progressing Intervention: Monitor Pain and Promote Comfort Recent Flowsheet Documentation Taken 08/26/2025 1806 by Mira Nava RN Pain Management Interventions: pain medication given pillow support provided position adjusted Intervention: Provide Person-Centered Care Recent Flowsheet Documentation Taken 08/26/2025 0800 by Mira Nava RN Trust Relationship/Rapport: care explained choices provided thoughts/feelings acknowledged reassurance provided questions encouraged questions answered Goal: Readiness for Transition of Care Outcome: Progressing Problem: Comorbidity Management Goal: Blood Pressure in Desired Range Outcome: Progressing Problem: Skin Injury Risk Increased Goal: Skin Health and Integrity Outcome: Progressing Intervention: Optimize Skin Protection Recent Flowsheet Documentation Taken 08/26/2025 1600 by Mira Nava RN Activity Management: activity encouraged ambulated to bathroom up ad ke Pressure Reduction Techniques: frequent weight shift encouraged heels elevated off bed Head of Bed (HOB) Positioning: [facility] elevated Pressure Reduction Devices: pressure-redistributing mattress utilized heel offloading device utilized Skin Protection: pulse oximeter probe site changed Taken 08/26/2025 1200 by Mira Nava RN Activity Management: activity encouraged ambulated to bathroom up ad ke Pressure Reduction Techniques: frequent weight shift encouraged heels elevated off bed Head of Bed (HOB) Positioning: HOB elevated Pressure Reduction Devices: pressure-redistributing mattress utilized heel offloading device utilized Skin Protection: pulse oximeter probe site changed Taken 08/26/2025 0800 by Mira Nava RN Activity Management: activity encouraged ambulated to bathroom up ad ke Pressure Reduction Techniques: frequent weight shift encouraged heels elevated off bed Head of Bed (HOB) Positioning: HOB elevated Pressure Reduction Devices: pressure-redistributing mattress utilized heel offloading device utilized Skin Protection: pulse oximeter probe site changed Problem: Suicide Risk Goal: Absence of Self-Harm Outcome: Progressing Intervention: Assess Risk to Self and Maintain Safety Recent Flowsheet Documentation Taken 08/26/2025 1600 by Mira Nava RN Enhanced Safety Measures: room near unit station Taken 08/26/2025 1200 by Mira Nava RN Enhanced Safety Measures: room near unit station Taken 08/26/2025 0800 by Mira Nava RN Enhanced Safety Measures: room near unit station Intervention: Promote Psychosocial Wellbeing Recent Flowsheet Documentation Taken 08/26/2025 0800 by Mira Nava RN Family/Support System Care: self-care encouraged Problem: Fall Injury Risk Goal: Absence of Fall and Fall-Related Injury Outcome: Progressing Intervention: Identify and Manage Contributors Recent Flowsheet Documentation Taken 08/26/2025 1600 by Mira Nava RN Self-Care Promotion: independence encouraged Taken 08/26/2025 1200 by Mira Nava RN Self-Care Promotion: independence encouraged Taken 08/26/2025 0800 by Mira Nava RN Self-Care Promotion: independence encouraged Intervention: Promote Injury-Free Environment Recent Flowsheet Documentation Taken 08/26/2025 1600 by Mira Nava RN Safety Promotion/Fall Prevention: assistive device/personal items within reach clutter free environment maintained nonskid shoes/slippers when out of bed safety round/check completed room organization consistent Taken 08/26/2025 1200 by Mira Nava RN Safety Promotion/Fall Prevention: assistive device/personal items within reach clutter free environment maintained nonskid shoes/slippers when out of bed safety round/check completed room organization consistent Taken 08/26/2025 0800 by Mira Nava RN Safety Promotion/Fall Prevention: assistive device/personal items within reach clutter free environment maintained nonskid shoes/slippers when out of bed safety round/check completed room organization consistent Goal Outcome Evaluation: * Janet Gutierrez MS CCC-TELEGRAPH EQUIPMENT MAINTAINER - 08/26/2025 4:13 PM EDT Goal Outcome Evaluation: Anticipated Discharge Disposition (TELEGRAPH EQUIPMENT MAINTAINER): home Treatment Assessment (TELEGRAPH EQUIPMENT MAINTAINER): continued, toleration of diet, no clinical signs of, aspiration (08/26/25 1450) Treatment Assessment Comments (TELEGRAPH EQUIPMENT MAINTAINER): Patient prefers to remain on soft, choipped diet d/t missing dentition. She requested a GI consult d/t feeling as though food is sticking in her esophagus (she feels it in the mid sternal area) (08/26/25 1450) Plan for Continued Treatment (TELEGRAPH EQUIPMENT MAINTAINER): treatment no longer indicated as all goals met (08/26/25 1450) Electronically signed by Janet Gutierrez MS [facility])-TELEGRAPH EQUIPMENT MAINTAINER at 08/26/2025 4:13 PM EDT * Deja Goldman PTA - 08/26/2025 1:03 PM EDT Goal Outcome Evaluation: Plan of Care Reviewed With: patient Progress: improving Outcome Evaluation: patient ambulated 50' + 50' with CGA x1 and rolling walker for supprt, no unsteadiness or LOB noticed. Recommend home with assist at D/C. * Kari Valentine PT - 08/25/2025 2:30 PM EDT Goal Outcome Evaluation: Plan of Care Reviewed With: patient Outcome Evaluation: Patient continues to have a sever headache. She has increased sensory deficits on her R side and some R side weakness, that she stated is chronic from old stroke. I am recommending continued skilled PT and a rolling walker for home Anticipated Discharge Disposition (PT): home with assist * Vonda Pagan OT - 08/25/2025 8:24 AM EDT Goal Outcome Evaluation: Plan of Care Reviewed With: patient Progress: no change Outcome Evaluation: Pt presents at her functional baseline with all ADLs and mobility at this time.No skilled OT services warranted. OT will dc and rec home with family. Anticipated Discharge Disposition (OT): home with assist * Melissa Wilson MS CCC-TELEGRAPH EQUIPMENT MAINTAINER - 08/24/2025 3:33 PM EDT Goal Outcome Evaluation: Plan of Care Reviewed With: patient Progress: (eval; see note for more information) Anticipated Discharge Disposition (TELEGRAPH EQUIPMENT MAINTAINER): other (see comments) (pending further w/u) TELEGRAPH EQUIPMENT MAINTAINER Diagnosis: mild, dysarthria (08/24/251532) TELEGRAPH EQUIPMENT MAINTAINER Swallowing Diagnosis: mild, oral dysphagia, R/O pharyngeal dysphagia (08/24/251532) documented in this encounter Miscellaneous Notes * Case Management/Social Work - Junior Valente RN - 08/27/2025 11:00 AM EDT Case Management Discharge Note Final Note: Noted dc orders, unit CM delivered RW to patient thru [facility] on Thursday and arranged HH thru pending sale to [facility] for SN and speech. I left w/Deja @ pending [facility] to [facility] notifying of d/c today. Selected Continued Care - Discharged on 08/27/2025 Admission date: 08/24/2025 - Discharge disposition: Home-Health Care Svc Destination No services have been selected for the patient. Durable Medical Equipment Service Provider Services Address Phone Fax Patient Preferred [facility] Durable Medical Equipment [address], [place] [address] [phone] -- Dialysis/Infusion No services have been selected for the patient. Home Medical Care Service Provider Services Address Phone Fax Patient Preferred [facility] Home Rehabilitation, Home Nursing [address], [address], [place] [phone] -- Therapy No services have been selected for the patient. Community & DME No services have been selected for the patient. Community Resources No active community resources. Transportation Services Transportation: Private Transportation Final Discharge Disposition Code: 06 - home with home health care * Therapy Treatment Note - Janet Gutierrez MS CCC-TELEGRAPH EQUIPMENT MAINTAINER - 08/26/2025 4:12 PM EDT Images from the original note were not included. Acute Care - Speech Language Pathology Swallow Treatment Note Janelle Patient Name: Mu Perkins : 1955 Today's Date: 08/26/2025 Admit Date: 08/24/2025 Visit Dx: ICD-10-CM ICD-9-CM 1. Dysphagia, unspecified type R13.10 787.20 2. Dysarthria R47.1 784.51 3. Chronic low back pain, unspecified back pain laterality, unspecified whether sciatica present M54.50 724.2 G89.29 338.29 4. Has a tremor R25.1 781.0 5. Chronic obstructive pulmonary disease, unspecified COPD type J44.9 496 6. Congestive heart failure, unspecified HF chronicity, unspecified heart failure type I50.9 428.0 Patient Active Problem List Diagnosis Automatic implantable cardiac defibrillator in situ Benign essential hypertension Chronic low back pain Chronic obstructive pulmonary disease Congestive heart failure Coronary atherosclerosis Hypothyroidism Gastroesophageal reflux disease without esophagitis Has a tremor History of cardiac arrest Hypokalemia Hypomagnesemia Insomnia, persistent Localized edema Mixed hyperlipidemia Seasonal allergies Seizure disorder Hospital discharge follow-up Hypotension due to drugs Right facial numbness Past Medical History: Diagnosis Date Acute on [...] NERVE REPAIR Left SUBCLAVIAN / PULMONARY SHUNT TELEGRAPH EQUIPMENT MAINTAINER Recommendation and Plan Recommended discharge disposition is based on the functional assessment performed by PT/OT/Speech therapy (as applicable) and may not reflect the medical necessity determined by your provider or services covered by an individual patient's insurance plan or patient resource. TELEGRAPH EQUIPMENT MAINTAINER Diet Recommendation: soft to chew textures, chopped, thin liquids (08/26/251449) Recommended Precautions and Strategies: upright posture during/after eating, small bites of food and sips of liquid, general aspiration precautions (08/26/251449) TELEGRAPH EQUIPMENT MAINTAINER Rec. for Method of Medication Administration: meds whole, with thin liquids, with puree, as tolerated (08/26/251449) Anticipated Discharge Disposition (TELEGRAPH EQUIPMENT MAINTAINER): home (08/26/251449) Oral Care Recommendations: Oral Care BID/PRN, Toothbrush (08/26/251449) Demonstrates Need for Referral to Another Service: gastroenterology, dedicated esophageal assessment (08/26/251449) Swallowing Considerations per Physician Discretion: medical management of suspected esophageal dysphagia, as indicated (08/26/251449) Daily Summary of Progress (TELEGRAPH EQUIPMENT MAINTAINER): prepare for discharge (08/26/251449) Treatment Assessment (TELEGRAPH EQUIPMENT MAINTAINER): continued, toleration of diet, no clinical signs of, aspiration (08/26/251449) Treatment Assessment Comments (TELEGRAPH EQUIPMENT MAINTAINER): Patient prefers to remain on soft, choipped diet d/t missing dentition. She requested a GI consult d/t feeling as though food is sticking in her esophagus (she feels it in the mid sternal area) (08/26/251449) Plan for Continued Treatment (TELEGRAPH EQUIPMENT MAINTAINER): treatment no longer indicated as all goals met (08/26/251449) SWALLOW EVALUATION (Last 72 Hours) TELEGRAPH EQUIPMENT MAINTAINER Adult Swallow Evaluation Row Name 08/26/25144908/24/25 8233 Rehab Evaluation Document Type discharge treatment -CH evaluation -MM Subjective Information no complaints -CH no complaints -MM Patient Observations alert;cooperative;agree to therapy -CH alert;cooperative -MM Patient/Family/Caregiver Comments/Observations no family present -CH no family present -MM Patient Effort good -CH good -MM Symptoms Noted During/After Treatment none -CH none -MM General Information Patient Profile Reviewed yes -CH yes -MM Pertinent History Of Current Problem -- Pt is a 70 year old female who presented to the facility with R facial droop. Pt has history of previous CVA, hyperlipidemia, HTN, carotid stenosis, CAD, and seizures. Imaging pending at this time. -MM Current Method of Nutrition -- NPO -MM Precautions/Limitations, Vision -- WFL;for purposes of eval;corrective lenses needed for reading -MM Precautions/Limitations, Hearing -- WFL;for purposes of eval -MM Prior Level of Function-Communication -- unknown -MM Prior Level of Function-Swallowing -- safe, efficient swallowing in all situations;other (see comments) per pt report -MM Plans/Goals Discussed with -- patient;agreed upon -MM Barriers to Rehab -- none identified -MM Patient's Goals for Discharge -- return to PO diet -MM Pain Pretreatment Pain Rating 0/10 - no pain -CH 0/10 - no pain -MM Posttreatment Pain Rating 0/10 - no pain -CH 0/10 - no pain -MM Oral Motor Structure and Function Dentition Assessment -- edentulous, does not have dentures -MM Secretion Management -- WNL/WFL -MM Mucosal Quality -- dry -MM Oral Musculature and Cranial Nerve Assessment Oral Motor General Assessment -- oral labial or buccal impairment -MM Oral Labial or Buccal Impairment, Detail, Cranial Nerve VII (Facial): -- other (see comments) mild droop, baseline -MM General Eating/Swallowing Observations Eating/Swallowing Skills -- self-fed -MM Positioning During Eating -- upright in chair -MM Utensils Used -- spoon;cup;straw -MM Consistencies Trialed -- regular textures;pureed;thin liquids -MM Clinical Swallow Eval Oral Prep Phase -- impaired -MM Oral Transit -- WFL -MM Oral Residue -- WFL -MM Pharyngeal Phase -- no overt signs/symptoms of pharyngeal impairment -MM Oral Prep Concerns Oral Prep Concerns -- prolonged mastication -MM Prolonged Mastication -- regular consistencies -MM TELEGRAPH EQUIPMENT MAINTAINER Evaluation Clinical Impression TELEGRAPH EQUIPMENT MAINTAINER Swallowing Diagnosis -- mild;oral dysphagia;R/O pharyngeal dysphagia -MM Rehab Potential/Prognosis, Swallowing -- good, to achieve stated therapy goals -MM Swallow Criteria for Skilled Therapeutic Interventions Met -- demonstrates skilled criteria -MM TELEGRAPH EQUIPMENT MAINTAINER Treatment Clinical Impressions Treatment Assessment (TELEGRAPH EQUIPMENT MAINTAINER) continued;toleration of diet;no clinical signs of;aspiration -CH -- Treatment Assessment Comments (TELEGRAPH EQUIPMENT MAINTAINER) Patient prefers to remain on soft, choipped diet d/t missing dentition. She requested a GI consult d/t feeling as though food is sticking in her esophagus (she feels it in the mid sternal area) -CH -- Daily Summary of Progress (TELEGRAPH EQUIPMENT MAINTAINER) prepare for discharge - -- Plan for Continued Treatment (TELEGRAPH EQUIPMENT MAINTAINER) treatment no longer indicated as all goals met - -- Care Plan Review evaluation/treatment results reviewed;care plan/treatment goals reviewed;risks/benefits reviewed;current/potential barriers reviewed;patient/other agree to care plan - -- Recommendations Therapy Frequency (Swallow) -- PRN;3 days per week - TELEGRAPH EQUIPMENT MAINTAINER Diet Recommendation soft to chew textures;chopped;thin liquids - soft to chew textures;chopped;thin liquids - Recommended Precautions and Strategies upright posture during/after eating;small bites of food and sips of liquid;general aspiration precautions - upright posture during/after eating;small bites offood and sips of liquid;general aspiration precautions - Oral Care Recommendations Oral Care BID/PRN;Toothbrush - Oral Care BID/PRN;Toothbrush -MM TELEGRAPH EQUIPMENT MAINTAINER Rec. for Method of Medication Administration meds whole;with thin liquids;with puree;as tolerated - meds whole;with thin liquids;with puree;as tolerated - Monitor for Signs of Aspiration -- notify TELEGRAPH EQUIPMENT MAINTAINER if any concerns - Anticipated Discharge Disposition (TELEGRAPH EQUIPMENT MAINTAINER) -- other (see comments) pending further w/u -MM Demonstrates Need for Referral to Another Service gastroenterology;dedicated esophageal assessment - -- Swallowing Considerations per Physician Discretion medical management of suspected esophageal dysphagia, as indicated - -- User Law (r) = Recorded By, (t) = Taken By, (c) = Cosigned By Initials Name Effective Dates Janet Gutierrez MS [facility]TELEGRAPH EQUIPMENT MAINTAINER 11/21/24 - MM Melissa Wilson MS [facility]TELEGRAPH EQUIPMENT MAINTAINER 07/01/24 - EDUCATION The patient has been educated in the following areas: Dysphagia (Swallowing Impairment) Oral Care/Hydration. TELEGRAPH EQUIPMENT MAINTAINER GOALS Row Name 08/26/25 9081 08/24/25 1533 (LTG) Patient will demonstrate functional swallow for Diet Texture (Demonstrate functional swallow) soft to chew (chopped) textures - soft to chew (chopped) textures -MM Liquid viscosity (Demonstrate functional swallow) thin liquids - thin liquids -MM [place] (Demonstrate functional swallow) independently (over 90% accuracy) - independently (over 90% accuracy) - Time Frame (Demonstrate functional swallow) 2 weeks -CH 2 weeks -MM Progress/Outcomes (Demonstrate functional swallow) goal met -CH new goal -MM (STG) Patient will tolerate trials of Consistencies Trialed (Tolerate trials) soft to chew (chopped) textures;thin liquids -CH soft to chew (chopped) textures;thin liquids -MM Desired Outcome (Tolerate trials) without signs/symptoms of aspiration;with adequate oral prep/transit/clearance -CH without signs/symptoms of aspiration;with adequate oral prep/transit/clearance -MM [place] (Tolerate trials) independently (over 90% accuracy) -CH independently (over 90% accuracy) -MM Time Frame (Tolerate trials) 1 week -CH 1 week -MM Progress/Outcomes (Tolerate trials) goal met - new goal -MM Comment (Tolerate trials) Pt c/o food sticking in her esophagus (mid sternal area). GI consult recommended -CH -- TELEGRAPH EQUIPMENT MAINTAINER Diagnostic Treatment Patient will participate in further assessment in the following areas reading comprehension;graphicexpression;cognitive-linguistic -CH reading comprehension;graphic expression;cognitive-linguistic -MM Time Frame (Diagnostic) 1 week -CH 1 week -MM Progress/Outcomes (Additional Goal 1, TELEGRAPH EQUIPMENT MAINTAINER) goal met -CH new goal -MM Comment (Diagnostic) All were WFL -CH -- [place] Goal 1 (TELEGRAPH EQUIPMENT MAINTAINER) Improve [place] by Goal 1 (TELEGRAPH EQUIPMENT MAINTAINER) increasing rate;90%;with minimal cues (75-90%) - CH increasing rate;90%;with minimal cues (75-90%) -MM Time Frame ([place] Goal 1, TELEGRAPH EQUIPMENT MAINTAINER) 1 week -CH 1 week -MM Progress ([place] Goal 1, TELEGRAPH EQUIPMENT MAINTAINER) 100%;independently (over 90% accuracy) - -- Progress/Outcomes ([place] Goal 1, TELEGRAPH EQUIPMENT MAINTAINER) goal met - new goal -MM User Law (r) = Recorded By, (t) = Taken By, (c) = Cosigned By Initials Name Provider Type aJnet Velasquez MS [facility]TELEGRAPH EQUIPMENT MAINTAINER Speech and Language Pathologist Melissa Pireto MS [facility]TELEGRAPH EQUIPMENT MAINTAINER Speech and Language Pathologist Time Calculation: Time Calculation- TELEGRAPH EQUIPMENT MAINTAINER Row Name 08/26/25 1612 Time Calculation- TELEGRAPH EQUIPMENT MAINTAINER TELEGRAPH EQUIPMENT MAINTAINER Start Time 1450 -CH TELEGRAPH EQUIPMENT MAINTAINER Received On 08/26/25 - Untimed Charges 70843-ZI Treatment/ST Modification Prosth Aug Alter 40 -CH 91666-WB Treatment Swallow Minutes 25 -CH Total Minutes Untimed Charges Total Minutes 65 -CH Total Minutes 65 -CH User Law (r) = Recorded By, (t) = Taken By, (c) = Cosigned By Initials Name Provider Type ADDY Miguel GutierrezMS danny CCC-TELEGRAPH EQUIPMENT MAINTAINER Speech and Language Pathologist Therapy Charges for Today Code Description Service Date Service Provider Modifiers Qty 27707511183 HC ST TREATMENT SWALLOW 2 08/26/2025 Janet Gutierrez MS CCC-TELEGRAPH EQUIPMENT MAINTAINER GN 1 [id number] HC ST TREATMENT SPEECH 3 08/26/2025 Gutierrez, Janet, MS CCC-TELEGRAPH EQUIPMENT MAINTAINER GN 1 Janet MS JEFFERY Gutierrez-TELEGRAPH EQUIPMENT MAINTAINER 08/26/2025 and Acute Care - Speech Language Pathology Treatment Note Janelle Patient Name: Mu Perkins : 1955 Today's Date: 08/26/2025 Admit Date: 08/24/2025 Visit Dx: ICD-10-CM ICD-9-CM 1. Dysphagia, unspecified type R13.10 787.20 2. Dysarthria R47.1 784.51 3. Chronic low back pain, unspecified back pain laterality, unspecified whether sciatica present M54.50 724.2 G89.29 338.29 4. Has a tremor R25.1 781.0 5. Chronic obstructive pulmonary disease, unspecified COPD type J44.9 496 6. Congestive heart failure, unspecified HF chronicity, unspecified heart failure type I50.9 428.0 Patient Active Problem List Diagnosis Automatic implantable cardiac defibrillator in situ Benign essential hypertension Chronic low back pain Chronic obstructive pulmonary disease Congestive heart failure Coronary atherosclerosis Hypothyroidism Gastroesophageal reflux disease without esophagitis Has a tremor History of cardiac arrest Hypokalemia Hypomagnesemia Insomnia, persistent Localized edema Mixed hyperlipidemia Seasonal allergies Seizure disorder Hospital discharge follow-up Hypotension due to drugs Right facial numbness Past Medical History: Diagnosis Date Acute on [...] NERVE REPAIR Left SUBCLAVIAN / PULMONARY SHUNT TELEGRAPH EQUIPMENT MAINTAINER Recommendation and Plan Recommended discharge disposition is based on the functional assessment performed by PT/OT/Speech therapy (as applicable) and may not reflect the medical necessity determined by your provider or services covered by an individual patient's insurance plan or patient resource. Anticipated Discharge Disposition (TELEGRAPH EQUIPMENT MAINTAINER): home (08/26/251449) Demonstrates Need for Referral to Another Service: gastroenterology, dedicated esophageal assessment (08/26/251449) Oral Care Recommendations: Oral Care BID/PRN, Toothbrush (08/26/251449) Daily Summary of Progress (TELEGRAPH EQUIPMENT MAINTAINER): prepare for discharge (08/26/251449) Treatment Assessment (TELEGRAPH EQUIPMENT MAINTAINER): continued, toleration of diet, no clinical signs of, aspiration (08/26/251449) Treatment Assessment Comments (TELEGRAPH EQUIPMENT MAINTAINER): Patient prefers to remain on soft, choipped diet d/t missing dentition. She requested a GI consult d/t feeling as though food is sticking in her esophagus (she feels it in the mid sternal area) (08/26/251449) Plan for Continued Treatment (TELEGRAPH EQUIPMENT MAINTAINER): treatment no longer indicated as all goals met (08/26/251449) TELEGRAPH EQUIPMENT MAINTAINER EVALUATION (Last 72 Hours) TELEGRAPH EQUIPMENT MAINTAINER SLC Evaluation Row Name 08/26/25144908/24/25 2084 General Information Prior Level of Function-Communication -- unknown -MM Patient's Goals for Discharge -- patient did not state -MM Comprehension Assessment/Intervention Comprehension Assessment/Intervention -- Auditory Comprehension -MM Auditory Comprehension Assessment/Intervention Auditory Comprehension (Communication) -- WFL -MM Narrative Discourse -- simple paragraph level;WFL -MM Expression Assessment/Intervention Expression Assessment/Intervention -- verbal expression -MM Verbal Expression Assessment/Intervention Verbal Expression -- WFL -MM Conversational Discourse/Fluency -- WFL -MM Motor Speech Assessment/Intervention Motor Speech Function -- mild impairment -MM Characteristics Consistent with Dysarthria -- slow rate -MM Speech intelligibility -- 100%;in quiet environment;in connected speech;with unfamiliar listener -MM Cursory Voice Assessment/Intervention Quality and Resonance (Voice) -- WFL -MM TELEGRAPH EQUIPMENT MAINTAINER Evaluation Clinical Impressions TELEGRAPH EQUIPMENT MAINTAINER Diagnosis -- mild;dysarthria -MM Rehab Potential/Prognosis -- good -MM [facility] [place] for Skilled Therapy Interventions Met -- yes -MM Functional Impact -- difficulty in expressing complex messages -MM Recommendations Therapy Frequency (TELEGRAPH EQUIPMENT MAINTAINER SLC) -- 5 days per week -MM Predicted Duration Therapy Intervention (Days) -- 2 weeks -MM Anticipated Discharge Disposition (TELEGRAPH EQUIPMENT MAINTAINER) home - -- User Law (r) = Recorded By, (t) = Taken By, (c) = Cosigned By Initials Name Effective Dates CH Janet Gutierrez, MS CCC-TELEGRAPH EQUIPMENT MAINTAINER 11/21/24 - MM Melissa Wilson, MS CCC-TELEGRAPH EQUIPMENT MAINTAINER 07/01/24 - EDUCATION The patient has been educated in the following areas: Cognitive Impairment Communication Impairment. TELEGRAPH EQUIPMENT MAINTAINER GOALS Row Name 08/26/25 1450 08/24/25 1533 (LTG) Patient will demonstrate functional swallow for Diet Texture (Demonstrate functional swallow) soft to chew (chopped) textures - CH soft to chew (chopped) textures -MM Liquid viscosity (Demonstrate functional swallow) thin liquids - thin liquids -MM [place] (Demonstrate functional swallow) independently (over 90% accuracy) -CH independently (over 90% accuracy) -MM Time Frame (Demonstrate functional swallow) 2 weeks -CH 2 weeks -MM Progress/Outcomes (Demonstrate functional swallow) goal met -CH new goal -MM (STG) Patient will tolerate trials of Consistencies Trialed (Tolerate trials) soft to chew (chopped) textures;thin liquids - soft to chew (chopped) textures;thin liquids -MM Desired Outcome (Tolerate trials) without signs/symptoms of aspiration;with adequate oral prep/transit/clearance - without signs/symptoms of aspiration;with adequate oral prep/transit/clearance -MM [place] (Tolerate trials) independently (over 90% accuracy) -CH independently (over 90% accuracy) -MM Time Frame (Tolerate trials) 1 week -CH 1 week -MM Progress/Outcomes (Tolerate trials) goal met -CH new goal -MM Comment (Tolerate trials) Pt c/o food sticking in her esophagus (mid sternal area). GI consult recommended -CH -- TELEGRAPH EQUIPMENT MAINTAINER Diagnostic Treatment Patient will participate in further assessment in the following areas reading comprehension;graphicexpression;cognitive-linguistic -CH reading comprehension;graphic expression;cognitive-linguistic -MM Time Frame (Diagnostic) 1 week -CH 1 week -MM Progress/Outcomes (Additional Goal 1, TELEGRAPH EQUIPMENT MAINTAINER) goal met -CH new goal -MM Comment (Diagnostic) All were WFL -CH -- [place] Goal 1 (TELEGRAPH EQUIPMENT MAINTAINER) Improve [place] by Goal 1 (TELEGRAPH EQUIPMENT MAINTAINER) increasing rate;90%;with minimal cues (75-90%) - CH increasing rate;90%;with minimal cues (75-90%) -MM Time Frame ([place] Goal 1, TELEGRAPH EQUIPMENT MAINTAINER) 1 week -CH 1 week -MM Progress ([place] Goal 1, TELEGRAPH EQUIPMENT MAINTAINER) 100%;independently (over 90% accuracy) - -- Progress/Outcomes ([place] Goal 1, TELEGRAPH EQUIPMENT MAINTAINER) goal met -CH new goal -MM User Law (r) = Recorded By, (t) = Taken By, (c) = Cosigned By Initials Name Provider Type Janet Velasquez MS CCC-TELEGRAPH EQUIPMENT MAINTAINER Speech and Language Pathologist Melissa Prieto MS CCC-TELEGRAPH EQUIPMENT MAINTAINER Speech and Language Pathologist Time Calculation: Time Calculation- TELEGRAPH EQUIPMENT MAINTAINER Row Name 08/26/25 1612 Time Calculation- TELEGRAPH EQUIPMENT MAINTAINER TELEGRAPH EQUIPMENT MAINTAINER Start Time 1450 -CH TELEGRAPH EQUIPMENT MAINTAINER Received On 08/26/25 - Untimed Charges 24210-QW Treatment/ST Modification Prosth Aug Alter 40 -CH 09105-IK Treatment Swallow Minutes 25 -CH Total Minutes Untimed Charges Total Minutes 65 -CH Total Minutes 65 -CH User Law (r) = Recorded By, (t) = Taken By, (c) = Cosigned By Initials Name Provider Type Janet Gutierrez MS CCC-TELEGRAPH EQUIPMENT MAINTAINER Speech and Language Pathologist Therapy Charges for Today Code Description Service Date Service Provider Modifiers Qty [id number] ST TREATMENT SWALLOW 2 08/26/2025 Janet Gutierrez MS CCC-TELEGRAPH EQUIPMENT MAINTAINER GN [id number] TREATMENT SPEECH 3 08/26/2025 Janet Gutierrez MS CCC-TELEGRAPH EQUIPMENT MAINTAINER GN 1 Janet Gutierrez MS CCC-KAYLA 08/26/2025 * Therapy Treatment Note - Deja Goldman, GENERAL PARTNER - 08/26/2025 1:03 PM EDT Images from the original note were not included. Patient Name: Mu Perkins : 1955 Today's Date: 08/26/2025 Admit Date: 08/24/2025 Visit Dx: ICD-10-CM ICD-9-CM 1. Dysphagia, unspecified type R13.10 787.20 2. Dysarthria R47.1 784.51 3. Chronic low back pain, unspecified back pain laterality, unspecified whether sciatica present M54.50 724.2 G89.29 338.29 4. Has a tremor R25.1 781.0 5. Chronic obstructive pulmonary disease, unspecified COPD type J44.9 496 6. Congestive heart failure, unspecified HF chronicity, unspecified heart failure type I50.9 428.0 Patient Active Problem List Diagnosis Automatic implantable cardiac defibrillator in situ Benign essential hypertension Chronic low back pain Chronic obstructive pulmonary disease Congestive heart failure Coronary atherosclerosis Hypothyroidism Gastroesophageal reflux disease without esophagitis Has a tremor History of cardiac arrest Hypokalemia Hypomagnesemia Insomnia, persistent Localized edema Mixed hyperlipidemia Seasonal allergies Seizure disorder Hospital discharge follow-up Hypotension due to drugs Right facial numbness Past Medical History: Diagnosis Date Acute on [...] NERVE REPAIR Left SUBCLAVIAN / PULMONARY SHUNT General Information Row Name 08/26/25 1520 Physical Therapy Time and Intention Document Type therapy note (daily note) - Mode of Treatment physical therapy - Row Name 08/26/25 1526 General Information Patient Profile Reviewed yes - Existing Precautions/Restrictions fall;other (see comments) has increased sensory deficits on R side face, LUE - Barriers to Rehab previous functional deficit - Row Name 08/26/25 1961 Cognition Orientation Status (Cognition) oriented x 4 - Row Name 08/26/25 152 Safety Issues/Impairments Affecting Functional Mobility Safety Issues Affecting Function (Mobility) safety precautions follow-through/compliance;positioning of assistive device - Impairments Affecting Function (Mobility) balance;strength;sensation/sensory awareness - Comment, Safety Issues/Impairments (Mobility) alert and following commands - User Law (r) = Recorded By, (t) = Taken By, (c) = Cosigned By Initials Name Provider Type Deja Goldman PTA Physical Therapist Vault Mechanic Mobility Row Name 08/26/25 152 Bed Mobility Sit-Supine [place] (Bed Mobility) modified independence - Gdgkke-Eyv-Uwiefe [place] (Bed Mobility) modified independence - Assistive Device (Bed Mobility) head of bed elevated - Comment, (Bed Mobility) good technique demonstrated - Row Name 08/26/251528 Transfers Comment, (Transfers) no LOB or unsteadiness noticed - Row Name 08/26/251528 Bed-Chair Transfer Bed-Chair [place] (Transfers) unable to assess - Comment, (Bed-Chair Transfer) requested back to bed - Row Name 08/26/251528 Sit-Stand Transfer Sit-Stand [place] (Transfers) verbal cues;contact guard;1 person assist - Assistive Device (Sit-Stand Transfers) walker, front-wheeled - Row Name 08/26/25 152 Gait/Stairs (Locomotion) [place] Level (Gait) verbal cues;contact guard;1 person assist - Assistive Device (Gait) walker, front-wheeled - Distance in Feet (Gait) 50 + 50 - Deviations/Abnormal Patterns (Gait) right sided deviations;stride length decreased;weight shifting decreased - Comment, (Gait/Stairs) patient ambulated 50' + 50' with CGA x1 and rolling walker for supprt, no unsteadiness or LOB noticed. - User Law (r) = Recorded By, (t) = Taken By, (c) = Cosigned By Initials Name Provider Type Deja Goldman PTA Physical Therapist Vault Mechanic Obj/Interventions Row Name 08/26/25 153 Balance Dynamic Standing Balance verbal cues;contact guard;1-person assist - Position/Device Used, Standing Balance supported;walker, front-wheeled - Comment, Balance CGA for safety - User Law (r) = Recorded By, (t) = Taken By, (c) = Cosigned By Initials Name Provider Type Deja Goldman PTA Physical Therapist Vault Mechanic Goals/Plan No documentation. Clinical Impression Row Name 08/26/251530 Pain Pretreatment Pain Rating 0/10 - no pain - Posttreatment Pain Rating 0/10 - no pain - Row Name 08/26/251530 Plan of Care Review Plan of Care Reviewed With patient - Progress improving - Outcome Evaluation patient ambulated 50' + 50' with CGA x1 and rolling walker for supprt, no unsteadiness or LOB noticed. Recommend home with assist at D/C. - Row Name 08/26/251530 Positioning and Restraints Pre-Treatment Position in bed - Post Treatment Position bed - In Bed supine;call light within reach;encouraged to call for assist - User Law (r) = Recorded By, (t) = Taken By, (c) = Cosigned By Initials Name Provider Type Deja Goldman PTA Physical Therapist Vault Mechanic Outcome Measures Row Name 08/26/25153008/26/25 0800 How much help from another person do you currently need... Turning from your back to your side while in flat bed without using bedrails? 4 - 4 -BB Moving from lying on back to sitting on the side of a flat bed without bedrails? 4 - 4 -BB Moving to and from a bed to a chair (including a wheelchair)? 4 - 4 -BB Standing up from a chair using your arms (e.g., wheelchair, bedside chair)? 4 - 4 -BB Climbing 3-5 steps with a railing? 3 - 3 -BB To walk in hospital room? 3 - 4 -BB AM-PAC 6 Clicks Score (PT) 22 - 23 -BB Highest Level of Mobility Goal Walk 25 Feet or More-7 - Walk 25 Feet or More-7 -BB Row Name 08/26/251530 Functional Assessment Outcome Measure Options AM-PAC 6 Clicks Basic Mobility (PT) - User Law (r) = Recorded By, (t) = Taken By, (c) = Cosigned By Initials Name Provider Type Deja Goldman PTA Physical Therapist Vault Mechanic BB Elijah, Mira M, RN Registered Nurse Physical Therapy Education Title: PT OT TELEGRAPH EQUIPMENT MAINTAINER Therapies (In Progress) Topic: Physical Therapy (In Progress) Point: Mobility training (In Progress) Learning Progress Summary Patient Acceptance, E, NR by at 08/26/2025 1531 Eager, E, VU by ME at 08/25/2025 1509 Comment: Reviewed HEP Point: Home exercise program (In Progress) Learning Progress Summary Patient Acceptance, E, NR by at 08/26/2025 1531 Eager, E, VU by ME at 08/25/2025 1509 Comment: Reviewed HEP Point: Body mechanics (In Progress) Learning Progress Summary Patient Acceptance, E, NR by at 08/26/2025 1531 Eager, E, VU by ME at 08/25/2025 1509 Comment: Reviewed HEP Point: Precautions (In Progress) Learning Progress Summary Patient Acceptance, E, NR by at 08/26/2025 1531 Eager, E, VU by ME at 08/25/2025 1509 Comment: Reviewed HEP User Law Initials Effective Dates Name Provider Type Discipline ME 12/05/22 - Kari Valentine, PT Physical Therapist PT 05/19/25 - Deja Goldman, BENEDICT Physical Therapist Vault Mechanic PT PT Recommendation and Plan Recommended discharge disposition is based on the functional assessment performed by PT/OT/Speech therapy (as applicable) and may not reflect the medical necessity determined by your provider or services covered by an individual patient's insurance plan or patient resource. Progress: improving Outcome Evaluation: patient ambulated 50' + 50' with CGA x1 and rolling walker for supprt, no unsteadiness or LOB noticed. Recommend home with assist at D/C. Time Calculation: PT Charges Row Name 08/26/25 1532 Time Calculation Start Time 1303 - PT Received On 08/26/25 - PT Goal Re-Cert Due Date 09/04/25 - Timed Charges 33204 - Gait Training Minutes 23 - Total Minutes Timed Charges Total Minutes 23 - Total Minutes 23 - User Law (r) = Recorded By, (t) = Taken By, (c) = Cosigned By Initials Name Provider Type Deja Goldman, GENERAL PARTNER Physical Therapist Vault Mechanic Therapy Charges for Today Code Description Service Date Service Provider Modifiers Qty [id number] HC GAIT TRAINING EA 15 MIN 08/26/2025 Deja Goldman PTA GP 2 PT G-Codes Outcome Measure Options: AM-PAC 6 Clicks Basic Mobility (PT) AM-PAC 6 Clicks Score (PT): 22 AM-PAC 6 Clicks Score (OT): 22 Modified Cobb Scale: 2 - Slight disability. Unable to carry out all previous activities but able to look after own affairs without assistance. Deja Goldman PTA 08/26/2025 * Case Management/Social Work - Delmi Easley RN - 08/25/2025 3:46 PM EDT Images from the original note were not included. Discharge Planning Assessment [facility] Patient Name: Mu Perkins Today's Date: 08/25/2025 Admit Date: 08/24/2025 Plan: Home with family, waiver Caregiver, Rolling walker from [employer], and [facility] for SN and TELEGRAPH EQUIPMENT MAINTAINER Discharge Plan Row Name 08/25/25 1526 Plan Plan Home with family, waiver Caregiver, Rolling walk[facility] [employer], [facility] TELEGRAPH EQUIPMENT MAINTAINER Patient/Family in Agreement with Plan yes Plan Comments Met with Ms. Perkins, at the bedside, for discharge planning. Ms. Perkins lives with her son, daughter, a friend, a granddaughter, and 3 grandkids, in [facility]. She states that prior to admission, she ambulated independently and was independent with her ADL's.She only used a shower chair at home. She does not drive. She has a Medicaid Waiver, and her caregiver lives next door. The caregiver sees her M-F, for approx. 2-3 hours per day. The caregiver assists with ADL's, bathing laundry, helps with meals, cooks. She also receives Mom's meals . The caregiver can come on the weekend, if the patient requests. The patient's family assist with transport, groceries, errands. She also goes to adult daycare in [facility] on -. The patient has been evaluated by PT, OT and TELEGRAPH EQUIPMENT MAINTAINER and recommendation is home with TELEGRAPH EQUIPMENT MAINTAINER services. Discussed home health and the patient is agreeable to [facility]. Referral given to Deja with [facility] for SN and TELEGRAPH EQUIPMENT MAINTAINER services. The patient required a rolling walker for home use and did not have preference for provider. CM delivered a RW to the hospital room from [facility]. PCP is Marly Sánchez. Insruance is Medicare B and Medicaid with prescription drug coverage. No ACP documents. DC plan is home. Ms. Perkins's family will be transporting her home when discharged. CM will continue to follow. Final Discharge Disposition Code 06 - home with home health care Continued Care and Services - Admitted Since 08/24/2025 Durable Medical Equipment Service Provider Request Status Services Address Phone Fax Patient Preferred [facility] Selected Durable Medical Equipment [address] [place] [id number] [phone] -- Home Medical Care Service Provider Request Status Services Address Phone Fax Patient Preferred [facility] Selected Home Rehabilitation, Home Nursing [address], [address],[place] [id number] [phone] -- Delmi Easley RN * Therapy Evaluation - Kari Valentine PT - 08/25/2025 2:30 PM EDT Images from the original note were not included. Patient Name: Mu Perkins : 1955 Today's Date: 08/25/2025 Admit Date: 08/24/2025 Visit Dx: ICD-10-CM ICD-9-CM 1. Dysphagia, unspecified type R13.10 787.20 2. Dysarthria R47.1 784.51 Patient Active Problem List Diagnosis Automatic implantable cardiac defibrillator in situ Benign essential hypertension Chronic low back pain Chronic obstructive pulmonary disease Congestive heart failure Coronary atherosclerosis Hypothyroidism Gastroesophageal reflux disease without esophagitis Has a tremor History of cardiac arrest Hypokalemia Hypomagnesemia Insomnia, persistent Localized edema Mixed hyperlipidemia Seasonal allergies Seizure disorder Hospital discharge follow-up Hypotension due to drugs Right facial numbness Past Medical History: Diagnosis Date Acute on [...] NERVE REPAIR Left SUBCLAVIAN / PULMONARY SHUNT General Information Row Name 08/25/25 1451 Physical Therapy Time and Intention Document Type evaluation -ME Mode of Treatment physical therapy -ME Row Name 08/25/25 1451 General Information Patient Profile Reviewed yes -ME Prior Level of Function independent:;gait;transfer;all household mobility ambulated independently at home. -ME Existing Precautions/Restrictions fall;other (see comments) has increased sensory deficits on R side face, UE, LE -ME Barriers to Rehab previous functional deficit -ME Row Name 08/25/25 1451 Living Environment Current Living Arrangements home -ME People in Home child(nahid), adult -ME Row Name 08/25/25 1451 Home Main Entrance Number of Stairs, Main Entrance one -ME Row Name 08/25/25 1451 Stairs Within Home, Primary Number of Stairs, Within Home, Primary three -ME Row Name 08/25/25 1451 Cognition Orientation Status (Cognition) oriented x 4 -ME Row Name 08/25/25 1451 Safety Issues/Impairments Affecting Functional Mobility Impairments Affecting Function (Mobility) balance;strength;sensation/sensory awareness -ME Comment, Safety Issues/Impairments (Mobility) alert, following commands -ME User Law (r) = Recorded By, (t) = Taken By, (c) = Cosigned By Initials Name Provider Type ME Kari Valentine PT Physical Therapist Mobility Row Name 08/25/25 6366 Bed Mobility Bed Mobility supine-sit;scooting/bridging;sit-supine -SC Scooting/Bridging [place] (Bed Mobility) independent -ME Supine-Sit [place] (Bed Mobility) modified independence -ME Sit-Supine [place] (Bed Mobility) modified independence -ME Assistive Device (Bed Mobility) head of bed elevated -ME Comment, (Bed Mobility) extra time to get in oob -[facility] Name 08/25/25 1455 Transfers Comment, (Transfers) STS from EOB -[facility] Name 08/25/25 1455 Sit-Stand Transfer Sit-Stand [place] (Transfers) 1 person assist;contact guard -[facility] Name 08/25/25 1455 Gait/Stairs (Locomotion) [place] Level (Gait) 1 person assist;contact guard -ME Assistive Device (Gait) walker, front-wheeled -ME Distance in Feet (Gait) 40 -ME Deviations/Abnormal Patterns (Gait) right sided deviations;stride length decreased;weight shifting decreased -ME Comment, (Gait/Stairs) walked with and without walker . More steady with walker. Some sway noted. No LOB or buckling noted -ME User Law (r) = Recorded By, (t) = Taken By, (c) = Cosigned By Initials Name Provider Type ME Meme, Shearon A, PT Physical Therapist Obj/Interventions [facility] Name 08/25/25 1500 Range of Motion Comprehensive General Range of Motion no range of motion deficits identified -[facility] 08/25/25 1500 Strength Comprehensive (MMT) General Manual Muscle Testing (MMT) Assessment upper extremity strength deficits identified;lower extremity strength deficits identified -ME Comment, General Manual Muscle Testing (MMT) Assessment R LE quads -4/5, tib ant 3+/5, L LE grossly4+/5, Tontue mild deviation to R, face symmetrical, Eyes tracking without nustagmus -[facility] Name 08/25/25 1500 Motor Skills Motor Skills coordination -ME Coordination fine motor deficit;right;upper extremity;lower extremity;minimal impairment -[facility] 08/25/25 1500 Balance Dynamic Standing Balance modified independence -ME Position/Device Used, Standing Balance supported;walker, rolling -ME Comment, Balance required contact assistance without walker -[facility] Name 08/25/25 1500 Sensory Assessment (Somatosensory) Sensory Assessment (Somatosensory) other (see comments) impaired R leg R UE and R side of face -ME User Law (r) = Recorded By, (t) = Taken By, (c) = Cosigned By Initials Name Provider Type ME Meme, Shearon A, PT Physical Therapist Goals/Plan [facility] Name 08/25/25 1506 Gait Training Goal 1 (PT) Activity/Assistive Device (Gait Training Goal 1, PT) gait (walking locomotion);walker, rolling -ME [place] Level (Gait Training Goal 1, PT) modified independence -ME Distance (Gait Training Goal 1, PT) 200 -SC Time Frame (Gait Training Goal 1, PT) 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);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 -ME Row Name 08/25/25 1506 Stairs Goal 1 (PT) Activity/Assistive Device (Stairs Goal 1, PT) stairs, all skills -ME [place] Level/Cues Needed (Stairs Goal 1, PT) minimum assist (75% or more patient effort) -ME Number of Stairs (Stairs Goal 1, PT) 3 -SC Time Frame (Stairs Goal 1, PT) 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);10 days -ME Row Name 08/25/25 1506 Therapy Assessment/Plan (PT) Planned Therapy Interventions (PT) strengthening;stair training;gait training;home exercise program-ME User Law (r) = Recorded By, (t) = Taken By, (c) = Cosigned By Initials Name Provider Type ME Kari Valentine, PT Physical Therapist Clinical Impression Row Name 08/25/25 1503 Pain Pretreatment Pain Rating 9/10 -ME Posttreatment Pain Rating 9/10 -ME Pain Location head -ME Pain Management Interventions positioning techniques utilized -ME Response to Pain Interventions activity participation with tolerable pain -ME Pre/Posttreatment Pain Comment requested pain meds to -ME Row Name 08/25/25 1503 Plan of Care Review Plan of Care Reviewed With patient -ME Outcome Evaluation Patient continues to have a sever headache. She has increased sensory deficits on her R side and some R side weakness, that she stated is chronic from old stroke. I am recommendingcontinued skilled PT and a rolling walker for home -ME Row Name 08/25/25 1504 Therapy Assessment/Plan (PT) Patient/Family Therapy Goals Statement (PT) decrease pain and go home -ME Rehab Potential (PT) good -ME Criteria for Skilled Interventions Met (PT) yes;meets criteria -ME Therapy Frequency (PT) daily -ME Predicted Duration of Therapy Intervention (PT) 2 -ME Row Name 08/25/25 1503 Vital Signs Pre Systolic BP Rehab 125 -SC Pre Treatment Diastolic BP 68 -SC Post Systolic BP Rehab 126 -SC Post Treatment Diastolic BP 81 -SC Pretreatment Heart Rate (beats/min) 73 -SC Posttreatment Heart Rate (beats/min) 72 -SC Post SpO2 (%) 96 -ME O2 Delivery Post Treatment room air -ME Row Name 08/25/25 1503 Positioning and Restraints Pre-Treatment Position in bed -ME Post Treatment Position bed -ME In Bed supine;call light within reach;encouraged to call for assist;exit alarm on -ME User Law (r) = Recorded By, (t) = Taken By, (c) = Cosigned By Initials Name Provider Type Kari Best, PT Physical Therapist Outcome Measures Row Name 08/25/25 1508 How much help from another person do you currently need... Turning from your back to your side while in flat bed without using bedrails? 4 -SC Moving from lying on back to sitting on the side of a flat bed without bedrails? 3 -SC Moving to and from a bed to a chair (including a wheelchair)? 3 -SC Standing up from a chair using your arms (e.g., wheelchair, bedside chair)? 3 -SC Climbing 3-5 steps with a railing? 3 -SC To walk in hospital room? 3 -ME AM-PAC 6 Clicks Score (PT) 19 -ME Highest Level of Mobility Goal Walk 10 Steps or More-6 -ME Row Name 08/25/25 1508 08/25/25 1033 Modified [place] Scale Pre-Stroke Modified Cobb Scale 1 - No significant disability despite symptoms. Able to carry out all usual duties and activities. -ME 6 - Unable to determine (UTD) from the medical record documentation -AN Modified Cobb Scale -- 2 - Slight disability. Unable to carry out all previous activities but able to look after own affairs without assistance. - Row Name 08/25/25 1508 08/25/25 1033 Functional Assessment Outcome Measure Options AM-PAC 6 Clicks Basic Mobility (PT);Modified [place] -ME AM-PAC 6 Clicks Daily Activity (OT);Modified Cobb -AN User Law (r) = Recorded By, (t) = Taken By, (c) = Cosigned By Initials Name Provider Type Kari Best, PT Physical Therapist Vonda Marquez OT Occupational Therapist Physical Therapy Education Title: PT OT TELEGRAPH EQUIPMENT MAINTAINER Therapies (Done) Topic: Physical Therapy (Done) Point: Mobility training (Done) Learning Progress Summary Patient Aaron Burger VU by ME at 08/25/2025 1509 Comment: Reviewed HEP Point: Home exercise program (Done) Learning Progress Summary Patient Aaron Burger VU by ME at 08/25/2025 1509 Comment: Reviewed HEP Point: Body mechanics (Done) Learning Progress Summary Patient Aaron Burger VU by ME at 08/25/2025 1509 Comment: Reviewed HEP Point: Precautions (Done) Learning Progress Summary Patient Aaron Burger VU by ME at 08/25/2025 1509 Comment: Reviewed HEP User Law Initials Effective Dates Name Provider Type Discipline ME 12/05/22 - Kari Valentine PT Physical Therapist PT PT Recommendation and Plan Recommended discharge disposition is based on the functional assessment performed by PT/OT/Speech therapy (as applicable) and may not reflect the medical necessity determined by your provider or services covered by an individual patient's insurance plan or patient resource. Planned Therapy Interventions (PT): strengthening, stair training, gait training, home exercise program Therapy Frequency (PT): daily Outcome Evaluation: Patient continues to have a sever headache. She has increased sensory deficits on her R side and some R side weakness, that she stated is chronic from old stroke. I am recommending continued skilled PT and a rolling walker for home Time Calculation: PT Evaluation Complexity History, PT Evaluation Complexity: 3 or more personal factors and/or comorbidities Examination of Body Systems (PT Eval Complexity): total of 4 or more elements Clinical Presentation (PT Evaluation Complexity): evolving Clinical Decision Making (PT Evaluation Complexity): moderate complexity Overall Complexity (PT Evaluation Complexity): moderate complexity PT Charges Row Name 08/25/25 1430 Time Calculation Start Time 1430 -ME PT Received On 08/25/25 -ME PT Goal Re-Cert Due Date 09/04/25 -ME Untimed Charges PT Eval/Re-eval Minutes 45 -ME Total Minutes Untimed Charges Total Minutes 45 -ME Total Minutes 45 -SC User Law (r) = Recorded By, (t) = Taken By, (c) = Cosigned By Initials Name Provider Type ME Kari Valentine, PT Physical Therapist Therapy Charges for Today Code Description Service Date Service Provider Modifiers Qty [id number] HC PT EVAL MOD COMPLEXITY 3 08/25/2025 Kari Valentine PT GP 1 PT G-Codes Outcome Measure Options: AM-PAC 6 Clicks Basic Mobility (PT), Modified Cobb AM-PAC 6 Clicks Score (PT): 19 AM-PAC 6 Clicks Score (OT): 22 Modified Cobb Scale: 2 - Slight disability. Unable to carry out all previous activities but able to look after own affairs without assistance. PT Discharge Summary Anticipated Discharge Disposition (PT): home with assist Kari Valentine, PT 08/25/2025 * Therapy Evaluation - Melissa Wilson MS [facility]TELEGRAPH EQUIPMENT MAINTAINER - 08/24/2025 3:33 PM EDT Images from the original note were not included. Acute Care - Speech Language Pathology Swallow Initial Evaluation Janelle Clinical Swallow Evaluation Cognitive-Communication Evaluation Patient Name: Mu Perkins : 1955 Today's Date: 08/24/2025 Admit Date: 08/24/2025 Visit Dx: ICD-10-CM ICD-9-CM 1. Dysphagia, unspecified type R13.10 787.20 2. Dysarthria R47.1 784.51 Patient Active Problem List Diagnosis Automatic implantable cardiac defibrillator in situ Benign essential hypertension Chronic low back pain Chronic obstructive pulmonary disease Congestive heart failure Coronary atherosclerosis Hypothyroidism Gastroesophageal reflux disease without esophagitis Has a tremor History of cardiac arrest Hypokalemia Hypomagnesemia Insomnia, persistent Localized edema Mixed hyperlipidemia Seasonal allergies Seizure disorder Hospital discharge follow-up Hypotension due to drugs Right facial numbness Past Medical History: Diagnosis Date Acute on [...] NERVE REPAIR Left SUBCLAVIAN / PULMONARY SHUNT TELEGRAPH EQUIPMENT MAINTAINER Recommendation and Plan Recommended discharge disposition is based on the functional assessment performed by PT/OT/Speech therapy (as applicable) and may not reflect the medical necessity determined by your provider or services covered by an individual patient's insurance plan or patient resource. TELEGRAPH EQUIPMENT MAINTAINER Swallowing Diagnosis: mild, oral dysphagia, R/O pharyngeal dysphagia (08/24/251532) TELEGRAPH EQUIPMENT MAINTAINER Diet Recommendation: soft to chew textures, chopped, thin liquids (08/24/251532) Recommended Precautions and Strategies: upright posture during/after eating, small bites of food and sips of liquid, general aspiration precautions (08/24/251532) TELEGRAPH EQUIPMENT MAINTAINER Rec. for Method of Medication Administration: meds whole, with thin liquids, with puree, as tolerated (08/24/251532) Monitor for Signs of Aspiration: notify TELEGRAPH EQUIPMENT MAINTAINER if any concerns (08/24/251532) Swallow Criteria for Skilled Therapeutic Interventions Met: demonstrates skilled criteria () Anticipated Discharge Disposition (TELEGRAPH EQUIPMENT MAINTAINER): other (see comments) (pending further w/u) (08/24/251532) Rehab Potential/Prognosis, Swallowing: good, to achieve stated therapy goals (08/24/251532) Therapy Frequency (Swallow): PRN, 3 days per week (08/24/251532) Predicted Duration Therapy Intervention (Days): 2 weeks (08/24/251532) Oral Care Recommendations: Oral Care BID/PRN, Toothbrush (08/24/251532) Progress: (eval; see note for more information) SWALLOW EVALUATION (Last 72 Hours) TELEGRAPH EQUIPMENT MAINTAINER Adult Swallow Evaluation Row Name 08/24/251532 Rehab Evaluation Document Type evaluation -MM Subjective Information no complaints -MM Patient Observations alert;cooperative -MM Patient/Family/Caregiver Comments/Observations no family present -MM Patient Effort good -MM Symptoms Noted During/After Treatment none -MM General Information Patient Profile Reviewed yes -MM Pertinent History Of Current Problem Pt is a 70 year old female who presented to the facility with R facial droop. Pt has history of previous CVA, hyperlipidemia, HTN, carotid stenosis, CAD, and seizures. Imaging pending at this time. -MM Current Method of Nutrition NPO -MM Precautions/Limitations, Vision WFL;for purposes of eval;corrective lenses needed for reading -MM Precautions/Limitations, Hearing WFL;for purposes of eval -MM Prior Level of Function-Communication unknown -MM Prior Level of Function-Swallowing safe, efficient swallowing in all situations;other (see comments) per pt report -MM Plans/Goals Discussed with patient;agreed upon -MM Barriers to Rehab none identified -MM Patient's Goals for Discharge return to PO diet -MM Pain Pretreatment Pain Rating 0/10 - no pain -MM Posttreatment Pain Rating 0/10 - no pain -MM Oral Motor Structure and Function Dentition Assessment edentulous, does not have dentures -MM Secretion Management WNL/WFL -MM Mucosal Quality dry -MM Oral Musculature and Cranial Nerve Assessment Oral Motor General Assessment oral labial or buccal impairment -MM Oral Labial or Buccal Impairment, Detail, Cranial Nerve VII (Facial): other (see comments) mild droop, baseline -MM General Eating/Swallowing Observations Eating/Swallowing Skills self-fed -MM Positioning During Eating upright in chair -MM Utensils Used spoon;cup;straw -MM Consistencies Trialed regular textures;pureed;thin liquids -MM Clinical Swallow Eval Oral Prep Phase impaired -MM Oral Transit WFL -MM Oral Residue WFL -MM Pharyngeal Phase no overt signs/symptoms of pharyngeal impairment -MM Oral Prep Concerns Oral Prep Concerns prolonged mastication -MM Prolonged Mastication regular consistencies -MM TELEGRAPH EQUIPMENT MAINTAINER Evaluation Clinical Impression TELEGRAPH EQUIPMENT MAINTAINER Swallowing Diagnosis mild;oral dysphagia;R/O pharyngeal dysphagia -MM Rehab Potential/Prognosis, Swallowing good, to achieve stated therapy goals -MM Swallow Criteria for Skilled Therapeutic Interventions Met demonstrates skilled criteria -MM Recommendations Therapy Frequency (Swallow) PRN;3 days per week -MM TELEGRAPH EQUIPMENT MAINTAINER Diet Recommendation soft to chew textures;chopped;thin liquids -MM Recommended Precautions and Strategies upright posture during/after eating;small bites of food and sips of liquid;general aspiration precautions -MM Oral Care Recommendations Oral Care BID/PRN;Toothbrush -MM TELEGRAPH EQUIPMENT MAINTAINER Rec. for Method of Medication Administration meds whole;with thin liquids;with puree;as tolerated -MM Monitor for Signs of Aspiration notify TELEGRAPH EQUIPMENT MAINTAINER if any concerns -MM Anticipated Discharge Disposition (TELEGRAPH EQUIPMENT MAINTAINER) other (see comments) pending further w/u -MM User Law (r) = Recorded By, (t) = Taken By, (c) = Cosigned By Initials Name Effective Dates MM Melissa Wilson MS [facility]TELEGRAPH EQUIPMENT MAINTAINER 07/01/24 - EDUCATION The patient has been educated in the following areas: Communication Impairment Dysphagia (Swallowing Impairment). TELEGRAPH EQUIPMENT MAINTAINER GOALS Row Name 08/24/25 1533 (LTG) Patient will demonstrate functional swallow for Diet Texture (Demonstrate functional swallow) soft to chew (chopped) textures -MM Liquid viscosity (Demonstrate functional swallow) thin liquids -MM [place] (Demonstrate functional swallow) independently (over 90% accuracy) -MM Time Frame (Demonstrate functional swallow) 2 weeks -MM Progress/Outcomes (Demonstrate functional swallow) new goal -MM (STG) Patient will tolerate trials of Consistencies Trialed (Tolerate trials) soft to chew (chopped) textures;thin liquids -MM Desired Outcome (Tolerate trials) without signs/symptoms of aspiration;with adequate oral prep/transit/clearance -MM [place] (Tolerate trials) independently (over 90% accuracy) -MM Time Frame (Tolerate trials) 1 week -MM Progress/Outcomes (Tolerate trials) new goal -MM TELEGRAPH EQUIPMENT MAINTAINER Diagnostic Treatment Patient will participate in further assessment in the following areas reading comprehension;graphicexpression;cognitive-linguistic -MM Time Frame (Diagnostic) 1 week -MM Progress/Outcomes (Additional Goal 1, TELEGRAPH EQUIPMENT MAINTAINER) new goal -MM [place] Goal 1 (TELEGRAPH EQUIPMENT MAINTAINER) Improve [place] by Goal 1 (TELEGRAPH EQUIPMENT MAINTAINER) increasing rate;90%;with minimal cues (75-90%) -MM Time Frame ([place] Goal 1, TELEGRAPH EQUIPMENT MAINTAINER) 1 week -MM Progress/Outcomes ([place] Goal 1, TELEGRAPH EQUIPMENT MAINTAINER) new goal -MM User Law (r) = Recorded By, (t) = Taken By, (c) = Cosigned By Initials Name Provider Type Melissa Prieto MS CCC-TELEGRAPH EQUIPMENT MAINTAINER Speech and Language Pathologist Time Calculation: Time Calculation- TELEGRAPH EQUIPMENT MAINTAINER Row Name 08/24/25 1615 Time Calculation- TELEGRAPH EQUIPMENT MAINTAINER TELEGRAPH EQUIPMENT MAINTAINER Start Time 1533 -MM TELEGRAPH EQUIPMENT MAINTAINER Received On 08/24/25 -MM Untimed Charges 82681-HM Eval Speech and Production w/ Language Minutes 18 -MM 17919-FD Eval Oral Pharyng Swallow Minutes 24 -MM Total Minutes Untimed Charges Total Minutes 42 -MM Total Minutes 42 -MM User Law (r) = Recorded By, (t) = Taken By, (c) = Cosigned By Initials Name Provider Type Melissa Prieto MS CCC-TELEGRAPH EQUIPMENT MAINTAINER Speech and Language Pathologist Therapy Charges for Today Code Description Service Date Service Provider Modifiers Qty [phone] ST EVAL ORAL PHARYNG SWALLOW 2 08/24/2025 Steve, Melissa, MS CCC- TELEGRAPH EQUIPMENT MAINTAINER GN [phone] EVAL SPEECH AND PROD W LANG 1 08/24/2025 Melissa Wilson MS CCC-TELEGRAPH EQUIPMENT MAINTAINER GN 1 Melissa Wilson MS CCC-TELEGRAPH EQUIPMENT MAINTAINER 08/24/2025 and Acute Care - Speech Language Pathology Initial Evaluation [facility] Patient Name: Mu Perkins : 1955 Today's Date: 08/24/2025 Admit Date: 08/24/2025 Visit Dx: ICD-10-CM ICD-9-CM 1. Dysphagia, unspecified type R13.10 787.20 2. Dysarthria R47.1 784.51 Patient Active Problem List Diagnosis Automatic implantable cardiac defibrillator in situ Benign essential hypertension Chronic low back pain Chronic obstructive pulmonary disease Congestive heart failure Coronary atherosclerosis Hypothyroidism Gastroesophageal reflux disease without esophagitis Has a tremor History of cardiac arrest Hypokalemia Hypomagnesemia Insomnia, persistent Localized edema Mixed hyperlipidemia Seasonal allergies Seizure disorder Hospital discharge follow-up Hypotension due to drugs Right facial numbness Past Medical History: Diagnosis Date Acute on [...] NERVE REPAIR Left SUBCLAVIAN / PULMONARY SHUNT TELEGRAPH EQUIPMENT MAINTAINER Recommendation and Plan Recommended discharge disposition is based on the functional assessment performed by PT/OT/Speech therapy (as applicable) and may not reflect the medical necessity determined by your provider or services covered by an individual patient's insurance plan or patient resource. TELEGRAPH EQUIPMENT MAINTAINER Diagnosis: mild, dysarthria (08/24/251532) Monitor for Signs of Aspiration: notify TELEGRAPH EQUIPMENT MAINTAINER if any concerns (08/24/251532) Swallow Criteria for Skilled Therapeutic Interventions Met: demonstrates skilled criteria (533) SLC Criteria for Skilled Therapy Interventions Met: yes (08/24/251532) Anticipated Discharge Disposition (TELEGRAPH EQUIPMENT MAINTAINER): other (see comments) (pending further w/u) (08/24/251532) Therapy Frequency (Swallow): PRN, 3 days per week (08/24/251532) Therapy Frequency (TELEGRAPH EQUIPMENT MAINTAINER SLC): 5 days per week (08/24/251532) Predicted Duration Therapy Intervention (Days): 2 weeks (08/24/251532) Oral Care Recommendations: Oral Care BID/PRN, Toothbrush (08/24/251532) Progress: (eval; see note for more information) (08/24/251613) TELEGRAPH EQUIPMENT MAINTAINER EVALUATION (Last 72 Hours) TELEGRAPH EQUIPMENT MAINTAINER SLC Evaluation Row Name 08/24/251532 General Information Prior Level of Function-Communication unknown -MM Patient's Goals for Discharge patient did not state -MM Comprehension Assessment/Intervention Comprehension Assessment/Intervention Auditory Comprehension -MM Auditory Comprehension Assessment/Intervention Auditory Comprehension (Communication) WFL -MM Narrative Discourse simple paragraph level;WFL -MM Expression Assessment/Intervention Expression Assessment/Intervention verbal expression -MM Verbal Expression Assessment/Intervention Verbal Expression WFL -MM Conversational Discourse/Fluency WFL -MM Motor Speech Assessment/Intervention Motor Speech Function mild impairment -MM Characteristics Consistent with Dysarthria slow rate -MM Speech intelligibility 100%;in quiet environment;in connected speech;with unfamiliar listener -MM Cursory Voice Assessment/Intervention Quality and Resonance (Voice) WFL -MM TELEGRAPH EQUIPMENT MAINTAINER Evaluation Clinical Impressions TELEGRAPH EQUIPMENT MAINTAINER Diagnosis mild;dysarthria -MM Rehab Potential/Prognosis good -MM SLC Criteria for Skilled Therapy Interventions Met yes -MM Functional Impact difficulty in expressing complex messages -MM Recommendations Therapy Frequency (TELEGRAPH EQUIPMENT MAINTAINER SLC) 5 days per week -MM Predicted Duration Therapy Intervention (Days) 2 weeks -MM User Law (r) = Recorded By, (t) = Taken By, (c) = Cosigned By Initials Name Effective Dates MM Melissa Wilson MS [facility]TELEGRAPH EQUIPMENT MAINTAINER 07/01/24 - EDUCATION The patient has been educated in the following areas: Communication Impairment. TELEGRAPH EQUIPMENT MAINTAINER GOALS Row Name 08/24/25 153 (LTG) Patient will demonstrate functional swallow for Diet Texture (Demonstrate functional swallow) soft to chew (chopped) textures -MM Liquid viscosity (Demonstrate functional swallow) thin liquids -MM [place] (Demonstrate functional swallow) independently (over 90% accuracy) -MM Time Frame (Demonstrate functional swallow) 2 weeks -MM Progress/Outcomes (Demonstrate functional swallow) new goal -MM (STG) Patient will tolerate trials of Consistencies Trialed (Tolerate trials) soft to chew (chopped) textures;thin liquids -MM Desired Outcome (Tolerate trials) without signs/symptoms of aspiration;with adequate oral prep/transit/clearance -MM [place] (Tolerate trials) independently (over 90% accuracy) -MM Time Frame (Tolerate trials) 1 week -MM Progress/Outcomes (Tolerate trials) new goal -MM TELEGRAPH EQUIPMENT MAINTAINER Diagnostic Treatment Patient will participate in further assessment in the following areas reading comprehension;graphicexpression;cognitive-linguistic -MM Time Frame (Diagnostic) 1 week -MM Progress/Outcomes (Additional Goal 1, TELEGRAPH EQUIPMENT MAINTAINER) new goal -MM [place] Goal 1 (TELEGRAPH EQUIPMENT MAINTAINER) Improve [place] by Goal 1 (TELEGRAPH EQUIPMENT MAINTAINER) increasing rate;90%;with minimal cues (75-90%) -MM Time Frame ([place] Goal 1, TELEGRAPH EQUIPMENT MAINTAINER) 1 week -MM Progress/Outcomes ([place] Goal 1, TELEGRAPH EQUIPMENT MAINTAINER) new goal -MM User Law (r) = Recorded By, (t) = Taken By, (c) = Cosigned By Initials Name Provider Type MM Melissa Wilson MS CCC-TELEGRAPH EQUIPMENT MAINTAINER Speech and Language Pathologist Time Calculation: Time Calculation- TELEGRAPH EQUIPMENT MAINTAINER Row Name 08/24/25 1615 Time Calculation- TELEGRAPH EQUIPMENT MAINTAINER TELEGRAPH EQUIPMENT MAINTAINER Start Time 1533 -MM TELEGRAPH EQUIPMENT MAINTAINER Received On 08/24/25 -MM Untimed Charges 51415-YP Eval Speech and Production w/ Language Minutes 18 -MM 53565-AF Eval Oral Pharyng Swallow Minutes 24 -MM Total Minutes Untimed Charges Total Minutes 42 -MM Total Minutes 42 -MM User Law (r) = Recorded By, (t) = Taken By, (c) = Cosigned By Initials Name Provider Type MM Melissa Wilson MS CCC-TELEGRAPH EQUIPMENT MAINTAINER Speech and Language Pathologist Therapy Charges for Today Code Description Service Date Service Provider Modifiers Qty [id number] HC ST EVAL ORAL PHARYNG SWALLOW 2 08/24/2025 Melissa Wilson MS CCC- TELEGRAPH EQUIPMENT MAINTAINER GN [id number] EVAL SPEECH AND PROD W LANG 1 08/24/2025 Melissa Wilson MS CCC-TELEGRAPH EQUIPMENT MAINTAINER GN 1 Melissa Wilson MS CCC-TELEGRAPH EQUIPMENT MAINTAINER 08/24/2025 documented in this encounter Plan of Treatment Upcoming Encounters Date Type Department Care Team (Late st Contact Info) Description 10/31/2025 9:00 AM EST Office Visit [facility] [address] [place] [address] Nereida Ambrose, METAL DRILL OPERATOR [address] [place] [address] 11/13/2025 2:30 PM EST Office Visit [facility] [address] [facility] [address] [place] [address] Camille Spann, METAL DRILL OPERATOR [address] [facility] [address] [address] 02/09/2026 2:15 PM EDT Office Visit [facility] [address] [facility] [address] [place] [id number] Shahla Troy PA-C [address] [facility] [address] [place], [place] [id number] Scheduled Orders Name Type Priority Associated Diagnoses Orde r Schedule Cardiology Scan Cardiac Services Onc e for 1 Occurrences starting 08/30/2025 until 08/30/2025 Scheduled Referrals Name Type Priority Associated Diagnoses Orde r Schedule Ambulatory Referral to Home Health Outpatient Referral Routine Dysphagia, unspecified type Dysarthria Chronic obstructive pulmonary disease, unspecified COPD type Congestive heart failure, unspecified HF chronicity, unspecified heart failure type Ordered: 08/25/2025 documented as of this encounter Procedures Procedure Name Priority Date/Time Associated Diagnosis Comments MRI BRAIN WO CONTRAST Routine 08/25/2025 1:20 PM EDT ECHO COMPLETE W/ DOPPLER AND COLOR FLOW Routine 08/25/2025 11:51 AM EDT CBC WITH AUTO DIFFERENTIAL Routine 08/25/2025 9:19 AM EDT MAGNESIUM Routine 08/25/2025 9:19 AM EDT HEMOGLOBIN A1C Routine 08/25/2025 9:19 AM EDT LIPID PANEL Routine 08/25/2025 9:19 AM EDT COMPREHENSIVE METABOLIC PANEL Routine 08/25/2025 9:19 AM EDT POCT GLUCOSE FINGERSTICK Routine 08/24/2025 11:55 PM EDT CBC WITH AUTO DIFFERENTIAL Routine 08/24/2025 7:10 PM EDT CBC AND DIFFERENTIAL Routine 08/24/2025 7:10 PM EDT MAGNESIUM Routine 08/24/2025 7:10 PM EDT COMPREHENSIVE METABOLIC PANEL Routine 08/24/2025 7:10 PM EDT POCT GLUCOSE FINGERSTICK Routine 08/24/2025 4:31 PM EDT SCANNED - IMAGING 08/24/2025 SCANNED - IMAGING 08/24/2025 SCANNED - IMAGING 08/24/2025 CT OUTSIDE HEAD Routine 08/23/2025 12:[address] OUTSIDE HEAD Routine 08/23/2025 12:[address] OUTSIDE NECK Routine 08/23/2025 12:00 AM EDT documented in this encounter Results * MRI Brain Without Contrast (08/25/2025 1:20 PM EDT) Anatomical Region Laterality Modality Head, Neck N/A Magnetic Resonan ce 08/25/2025 8:00 PM EDT Impressions 08/25/2025 8:02 PM EDT Impression: Essentially normal noncontrast MRI of the brain. No evidence of recent infarct, hemorrhage, mass or mass effect. Electronically Signed: Garrett Roberson MD 08/25/2025 8:02 PM EDT Workstation ID: [id number] Narrative 08/25/2025 8:02 PM EDT MRI BRAIN WO CONTRAST Date of Exam: 08/25/2025 1:04 PM EDT Indication: Stroke, follow up right arm weakness, right facial droop. Comparison: None available. Technique: Routine multiplanar/multisequence sequence images of the brain were obtained without contrast administration. Findings: No acute infarct is present on diffusion weighted sequences. Midline structures appear normal and the craniocervical junction is satisfactory. Minimal age- related generalized volume loss is present. Sims-white differentiation is otherwise maintained and there is no evidence of intracranial hemorrhage, mass or mass effect. The ventricles are normal in size and configuration. The orbits are normal. The paranasal sinuses are clear. Procedure Note Joselito Roberson MD - 08/25/2025 MRI BRAIN WO CONTRAST Date of Exam: 08/25/2025 1:04 PM EDT Indication: Stroke, follow up right arm weakness, right facial droop. Comparison: None available. Technique: Routine multiplanar/multisequence sequence images of the brainwere obtained without contrast administration. Findings: No acute infarct is present on diffusion weighted sequences. Midlinestructures appear normal and the craniocervical junction is satisfactory.Minimal age-related generalized volume loss is present. Sims-whitedifferentiation is otherwise maintained and there is no evidence of intracranial hemorrhage, mass or mass effect. Theventricles are normal in size and configuration. The orbits are normal.The paranasal sinuses are clear. IMPRESSION: Impression: Essentially normal noncontrast MRI of the brain. No evidence of recentinfarct, hemorrhage, mass or mass effect. Electronically Signed: Garrett Roberson MD 08/25/2025 8:02 PM EDT Workstation ID: [id number] Marisol Walker Celio ROSENBERG [facility] MRI ORDERABLES Final Re sult * ECHO COMPLETE W/ DOPPLER AND COLOR FLOW (08/25/2025 11:51 AM EDT) 2D AUTO EF 58.5 % LVIDd 3.9 cm LVIDs 2.8 cm IVSd 1.10 cm LVPWd 1.10 cm IVS/LVPW 1.00 cm LVOT area 3.5 cm2 LVOT diam 2.10 cm SVi (LVOT) 39.9 ml/m2 MV E max rosaura 100.0 cm/sec MV A max rosaura 80.2 cm/sec MV E/A 1.25 IVRT 63.0 ms LA ESV Index (BP) 31.5 ml/m2 Med Peak E' Rosaura 10.5 cm/sec Lat Peak E' Rosaura 10.4 cm/sec TR max rosaura 254 cm/sec Avg E/e' ratio 9.57 SV(LVOT) 68.6 ml RV Base 3.2 cm RV Mid 2.8 cm RV Length 5.9 cm TAPSE (>1.6) 2.10 cm RV S' 16.1 cm/sec LA dimension (2D) 3.9 cm LV V1 max 88.0 cm/sec LV V1 max PG 3.1 mmHg LV V1 mean PG 1.40 mmHg LV V1 VTI 19.8 cm Ao pk rosaura 126.0 cm/sec Ao max PG 6.4 mmHg Ao mean PG 3.7 mmHg Ao V2 VTI 29.3 cm MERLYN(I,D) 2.34 cm2 Dimensionless Index 0.68 (DI) MV max PG 4.9 mmHg MV mean PG 1.80 mmHg MV V2 VTI 35.9 cm MVA(VTI) 1.91 cm2 TR max PG 26 mmHg PA V2 max 92.2 cm/sec PA acc time 0.12 sec Ao root diam 3.0 cm Ascending aorta 3.3 cm BH CV ECHO SHUNT ASSESSMENT PERFORMED (HIDDEN SCRIPTING) 1 MR max rosaura 445 cm/sec RVSP(TR) 28 mmHg RAP systole 3 mmHg Anatomical Region Laterality Modality Ultrasound Narrative 08/28/2025 4:30 PM EDT Left ventricular systolic function is normal. Automated 2D EF = 58.5% Left ventricular ejection fraction appears to be 56 - 60%. Left ventricular wall thickness is consistent with hypertrophy. Saline test results are negative. There is mild calcification of the aortic valve mainly affecting the right coronary cusp(s). Estimated right ventricular systolic pressure from tricuspid regurgitation is normal (<35 mmHg). Left Ventricle Left ventricular systolic function is normal. Automated 2D EF = 58.5%Left ventricular ejection fraction appears to be 56 - 60%. Normal left ventricular cavity size noted. Left ventricular wall thickness is consistent with hypertrophy. Right Ventricle Normal right ventricular cavity size, wall thickness and systolic function noted. Electronic lead present in the ventricle. Left Atrium Normal left atrial size and volume noted. Saline test results are negative. Right Atrium Normal right atrial cavity size noted. Right atrial volume is 21 ml. The inferior vena cava is normally sized. The diameter of the inferior vena cava is 1.7 cm. Normal IVC inspiratory collapse of greater than 50% noted. An electronic lead is present in the right atrium. Mitral Valve The mitral valve is structurally normal with no significant stenosis present. Mild mitral valve regurgitation is present with an anteriorly-directed jet noted. Tricuspid Valve The tricuspid valve is structurally normal with no significant stenosis present. Mild tricuspid valve regurgitation is present. Estimated right ventricular systolic pressure from tricuspid regurgitation is normal (<35 mmHg). Aortic Valve No aortic valve regurgitation or stenosis is present. The aortic valve is abnormal in structure. There is mild calcification of the aortic valve mainly affecting the right coronary cusp(s). Pulmonic Valve The pulmonic valve is structurally normal with no regurgitation or significant stenosis present. Pericardium The pericardium is normal. There is no evidence of pericardial effusion. . Greater Vessels No dilation of the aortic root is present. No dilation of the proximal aorta is present. The inferior vena cava is normally sized. Normal IVC inspiratory collapse of greater than 50% noted. Study Quality The study is technically adequate for diagnosis. Shunt Assessment Verbal consent was obtained from the patient for use of agitated saline to assess for shunting. A total of 20 mL of agitated saline was administered. Marisol Pickens APRN CV ECHO ORDERABLES Final Re sult * Magnesium (08/25/2025 9:19 AM EDT) Magnesium 1.6 1.6 - 2.4 mg/dL 08/25/2025 10:23 AM EDT [facility] Blood Venipuncture / Unknown 08/25/2025 9:19 AM EDT 08/25/2025 9:31 AM EDT us Samantha Harvinder Jonathan DO LAB BLOOD ORDERABLES Final Res ult [facility]
[address] [place] [address], * (ABNORMAL) Comprehensive Metabolic Panel (08/25/2025 9:19 AM EDT) Glucose 127(H) 65 - 99 mg/dL 08/25/2025 10:23 AM EDT [facility] BUN 18.4 8.0 - 23.0 mg/dL 08/25/2025 10:23 AM EDT [facility] Creatinine 1.00 0.57 - 1.00 mg/dL 08/25/2025 10:23 AM EDT [facility] Sodium 138 136 - 145 mmol/L 08/25/2025 10:23 AM EDT [facility] Potassium 3.7 3.5 - 5.2 mmol/L 08/25/2025 10:23 AM EDT [facility] Chloride 104 98 - 107 mmol/L 08/25/2025 10:23 AM EDT [facility] CO2 25.8 22.0 - 29.0 mmol/L 08/25/2025 10:23 AM EDT [facility] Calcium 8.9 8.6 - 10.5 mg/dL 08/25/2025 10:23 AM EDT [facility] Total Protein 5.6(L) 6.0 - 8.5 g/dL 08/25/2025 10:23 AM EDT [facility] Albumin 3.7 3.5 - 5.2 g/dL 08/25/2025 10:23 AM EDT [facility] ALT (SGPT) 28 1 - 33 U/L 08/25/2025 10:23 AM EDT [facility] AST (SGOT) 46(H) 1 - 32 U/L 08/25/2025 10:23 AM EDT [facility] Alkaline Phosphatase 49 39 - 117 U/L 08/25/2025 10:23 AM EDT [facility] Total Bilirubin 0.4 0.0 - 1.2 mg/dL 08/25/2025 10:23 AM EDT [facility] Globulin 1.9 gm/dL 08/25/2025 10:23 AM EDT [facility] Comment:Calculated Result A/G Ratio 1.9 g/dL 08/25/2025 10:23 AM EDT [facility] BUN/Creatinine Ratio 18.4 7.0 - 25.0 08/25/2025 10:23 AM EDT [facility] Anion Gap 8.2 5.0 - 15.0 mmol/L 08/25/2025 10:23 AM T [facility] eGFR 60.0(L) >60.0 mL/min/1.7 3 08/25/2025 10:23 AM T [facility] Blood Venipuncture / Unknown 08/25/2025 9:19 AM EDT 08/25/2025 9:31 AM EDT [facility] - 08/25/2025 10:23 AM EDT GFR Categories in Chronic Kidney Disease [...] not include race as a factor us Samantha Castillo DO LAB BLOOD ORDERABLES Final Res ult [facility]
[address] [place] [address], * (ABNORMAL) CBC Auto Differential (08/25/2025 9:19 AM EDT) WBC 4.93 3.40 - 10.80 10*3/mm3 08/25/2025 9:45 AM EDT [facility] RBC 3.89 3.77 - 5.28 10*6/mm3 08/25/2025 9:45 AM EDT [facility] Hemoglobin 11.7(L) 12.0 - 15.9 g/dL 08/25/2025 9:45 AM EDT [facility] Hematocrit 36.0 34.0 - 46.6 % 08/25/2025 9:45 AM EDT [facility] MCV 92.5 79.0 - 97.0 fL 08/25/2025 9:45 AM EDT [facility] MCH 30.1 26.6 - 33.0 pg 08/25/2025 9:45 AM [facility] MCHC 32.5 31.5 - 35.7 g/dL 08/25/2025 9:45 AM [facility] RDW 13.5 12.3 - 15.4 % 08/25/2025 9:45 AM [facility] RDW-SD 45.3 37.0 - 54.0 fl 08/25/2025 9:45 AM [facility] MPV 11.9 6.0 - 12.0 fL 08/25/2025 9:45 AM [facility] Platelets 145 140 - 450 10*3/mm3 08/25/2025 9:45 AM [facility] Neutrophil % 47.7 42.7 - 76.0 % 08/25/2025 9:45 AM EDT [facility] Lymphocyte % 43.0 19.6 - 45.3 % 08/25/2025 9:45 AM [facility] Monocyte % 5.5 5.0 - 12.0 % 08/25/2025 9:45 AM [facility] Eosinophil % 2.8 0.3 - 6.2 % 08/25/2025 9:45 AM [facility] Basophil % 0.6 0.0 - 1.5 % 08/25/2025 9:45 AM EDT [facility] Immature Grans % 0.4 0.0 - 0.5 % 08/25/2025 9:45 AM EDT [facility] Neutrophils, Absolute 2.35 1.70 - 7.00 10*3/mm3 08/25/2025 9:45 AM EDT [facility] Lymphocytes, Absolute 2.12 0.70 - 3.10 10*3/mm3 08/25/2025 9:45 AM EDT [facility] Monocytes, Absolute 0.27 0.10 - 0.90 10*3/mm3 08/25/2025 9:45 AM EDT [facility] Eosinophils, Absolute 0.14 0.00 - 0.40 10*3/mm3 08/25/2025 9:45 AM EDT [facility] Basophils, Absolute 0.03 0.00 - 0.20 10*3/mm3 08/25/2025 9:45 AM EDT [facility] Immature Grans, Absolute 0.02 0.00 - 0.05 10*3/mm3 08/25/2025 9:45 AM EDT [facility] nRBC 0.0 0.0 - 0.2 /100 WBC 08/25/2025 9:45 AM EDT [facility] Blood Venipuncture / Unknown 08/25/2025 9:19 AM EDT 08/25/2025 9:32 AM EDT Samantha Castillo DO LAB BLOOD ORDERABLES Final Res ult [facility]
[address] [place] [address], * Lipid Panel (08/25/2025 9:19 AM EDT) Total Cholesterol 117 0 - 200 mg/dL 08/25/2025 10:23 AM EDT [facility] Triglycerides 123 0 - 150 mg/dL 08/25/2025 10:23 AM EDT [facility] HDL Cholesterol 49 40 - 60 mg/dL 08/25/2025 10:23 AM EDT [facility] LDL Cholesterol 46 0 - 100 mg/dL 08/25/2025 10:23 AM EDT [facility] VLDL Cholesterol 22 5 - 40 mg/dL 08/25/2025 10:23 AM EDT [facility] LDL/HDL Ratio 0.89 08/25/2025 10:23 AM EDT [facility] Blood Venipuncture / Unknown 08/25/2025 9:19 AM EDT 08/25/2025 9:31 AM EDT Narrative [facility] - 08/25/2025 10:23 AM EDT Cholesterol Reference Ranges (U.S. Department of Health and Human Services ATP III Classifications) Desirable <200 mg/dL Borderline High 200-239 mg/dL High Risk >240 mg/dL Triglyceride Reference Ranges (U.S. Department of Health and Human Services ATP III Classifications) Normal <150 mg/dL Borderline High 150-199 mg/dL High 200-499 mg/dL Very High >500 mg/dL HDL Reference Ranges (U.S. Department of Health and Human Services ATP III Classifications) Low <40 mg/dl (major risk factor for CHD) High >60 mg/dl ('negative' risk factor for CHD) LDL Reference Ranges (U.S. Department of Health and Human Services ATP III Classifications) Optimal <100 mg/dL Near Optimal 100-129 mg/dL Borderline High 130-159 mg/dL High 160-189 mg/dL Very High >189 mg/dL LDL is calculated using the NIH LDL-C calculation. Marisol Pickens APRN LAB BLOOD ORDERABLES Final Result [facility]
[address] [place] [address], * (ABNORMAL) Hemoglobin A1c (08/25/2025 9:19 AM EDT) Hemoglobin A1C 6.22(H) 4.80 - 5.60 % 08/25/2025 10:14 AM EDT [facility] Blood Venipuncture / Unknown 08/25/2025 9:19 AM EDT 08/25/2025 9:32 AM EDT Narrative [facility] - 08/25/2025 10:14 AM EDT Hemoglobin A1C Ranges: Increased Risk for Diabetes 5.7% to 6.4% Diabetes >= 6.5% Diabetic Goal < 7.0% Marisol Pickens APRN LAB BLOOD ORDERABLES Final Result Performing Organization Address City/[facility]/ZIP Co de Phone Number [facility]
[address] [place] [address], * POC Glucose Once (08/24/2025 11:55 PM EDT) Glucose 119 70 - 130 mg/dL 08/24/2025 11:58 PM EDT [facility] Comment:Serial Number: [id number]: [id number] Blood 08/24/2025 11:5 5 PM EDT 08/24/2025 11:58 PM EDT us Samantha Castillo DO POINT OF CARE TEST ORDERABLES Final Result Performing Organization Address [facility] Co de Phone Number [facility]
[address] [place] [address], * (ABNORMAL) CBC Auto Differential (08/24/2025 7:10 PM EDT) WBC 5.50 3.40 - 10.80 10*3/mm3 08/24/2025 8:01 PM EDT [facility] RBC 3.93 3.77 - 5.28 10*6/mm3 08/24/2025 8:01 PM EDT [facility] Hemoglobin 11.6(L) 12.0 - 15.9 g/dL 08/24/2025 8:01 PM EDT [facility] Hematocrit 36.7 34.0 - 46.6 % 08/24/2025 8:01 PM EDT [facility] MCV 93.4 79.0 - 97.0 fL 08/24/2025 8:01 PM EDT [facility] MCH 29.5 26.6 - 33.0 pg 08/24/2025 8:01 PM EDT [facility] MCHC 31.6 31.5 - 35.7 g/dL 08/24/2025 8:01 PM EDT [facility] RDW 13.5 12.3 - 15.4 % 08/24/2025 8:01 PM EDT [facility] RDW-SD 46.2 37.0 - 54.0 fl 08/24/2025 8:01 PM EDT [facility] MPV 11.7 6.0 - 12.0 fL 08/24/2025 8:01 PM EDT [facility] Platelets 143 140 - 450 10*3/mm3 08/24/2025 8:01 PM EDT [facility] Neutrophil % 38.6(L) 42.7 - 76.0 % 08/24/2025 8:01 PM EDT [facility] Lymphocyte % 49.8(H) 19.6 - 45.3 % 08/24/2025 8:01 PM [facility] Monocyte % 8.0 5.0 - 12.0 % 08/24/2025 8:01 PM [facility] Eosinophil % 2.9 0.3 - 6.2 % 08/24/2025 8:01 PM EDT [facility] Basophil % 0.5 0.0 - 1.5 % 08/24/2025 8:01 PM [facility] Immature Grans % 0.2 0.0 - 0.5 % 08/24/2025 8:01 PM [facility] Neutrophils, Absolute 2.12 1.70 - 7.00 10*3/mm3 08/24/2025 8:01 PM [facility] Lymphocytes, Absolute 2.74 0.70 - 3.10 10*3/mm3 08/24/2025 8:01 PM EDT [facility] Monocytes, Absolute 0.44 0.10 - 0.90 10*3/mm3 08/24/2025 8:01 PM EDT [facility] Eosinophils, Absolute 0.16 0.00 - 0.40 10*3/mm3 08/24/2025 8:01 PM EDT [facility] Basophils, Absolute 0.03 0.00 - 0.20 10*3/mm3 08/24/2025 8:01 PM EDT [facility] Immature Grans, Absolute 0.01 0.00 - 0.05 10*3/mm3 08/24/2025 8:01 PM EDT [facility] nRBC 0.0 0.0 - 0.2 /100 WBC 08/24/2025 8:01 PM EDT [facility] Blood Venipuncture / Unknown 08/24/2025 7:10 PM EDT 08/24/2025 7:53 PM EDT [facility] Final Res ult Performing Organization Address City/[facility]/ZIP Co de Phone Number [facility]
[address] [place] [address], [place] [phone] * Magnesium (08/24/2025 7:10 PM EDT) Magnesium 1.9 1.6 - 2.4 mg/dL 08/24/2025 8:16 PM EDT [facility] Blood Venipuncture / Unknown 08/24/2025 7:10 PM EDT 08/24/2025 7:53 PM EDT [facility] BLOOD ORDERABLES Final Res ult [facility]
[address] [place] [address], [place] [phone] * (ABNORMAL) Comprehensive Metabolic Panel (08/24/2025 7:10 PM EDT) [facility] Glucose 94 65 - 99 mg/dL 08/24/2025 8:16 PM T [facility] BUN 20.7 8.0 - 23.0 mg/dL 08/24/2025 8:16 PM [facility] Creatinine 1.08(H) 0.57 - 1.00 mg/dL 08/24/2025 8:16 PM EDT [facility] Sodium 139 136 - 145 mmol/L 08/24/2025 8:16 PM T [facility] Potassium 4.0 3.5 - 5.2 mmol/L 08/24/2025 8:16 PM T [facility] Chloride 107 98 - 107 mmol/L 08/24/2025 8:16 PM EDT [facility] CO2 23.3 22.0 - 29.0 mmol/L 08/24/2025 8:16 PM EDT [facility] Calcium 8.9 8.6 - 10.5 mg/dL 08/24/2025 8:16 PM T [facility] Total Protein 6.0 6.0 - 8.5 g/dL 08/24/2025 8:16 PM T [facility] Albumin 3.5 3.5 - 5.2 g/dL 08/24/2025 8:16 PM [facility] ALT (SGPT) 17 1 - 33 U/L 08/24/2025 8:16 PM T [facility] AST (SGOT) 28 1 - 32 U/L 08/24/2025 8:16 PM [facility] Alkaline Phosphatase 56 39 - 117 U/L 08/24/2025 8:16 PM T [facility] Total Bilirubin 0.2 0.0 - 1.2 mg/dL 08/24/2025 8:16 PM T [facility] Globulin 2.5 gm/dL 08/24/2025 8:16 PM T [facility] Comment:Calculated Result A/G Ratio 1.4 g/dL 08/24/2025 8:16 PM EDT [facility] BUN/Creatinine Ratio 19.2 7.0 - 25.0 08/24/2025 8:16 PM EDT [facility] Anion Gap 8.7 5.0 - 15.0 mmol/L 08/24/2025 8:16 PM EDT [facility] eGFR 54.7(L) >60.0 mL/min/1.7 3 08/24/2025 8:16 PM EDT [facility] Blood Venipuncture / Unknown 08/24/2025 7:10 PM EDT 08/24/2025 7:53 PM EDT Narrative [facility] - 08/24/2025 8:16 PM EDT GFR Categories in Chronic Kidney [...] not include race as a factor us Samantha Castillo DO LAB BLOOD ORDERABLES Final Res ult [facility]
[address] [place] [address], * POC Glucose Once (08/24/2025 4:31 PM EDT) Glucose 88 70 - 130 mg/dL 08/24/2025 4:37 PM EDT [facility] Comment:Serial Number: [id number]: [id number] Blood 08/24/2025 4:31 PM EDT 08/24/2025 4:37 PM EDT us Samantha Castillo DO POINT OF CARE TEST ORDERABLES Final Result [facility]
[address] [place] [address], * IMAGING SCANNED (08/24/2025) Anatomical Region Laterality Modality Radiographic Dayanara ging [facility] IMG DIAGNOSTIC IMAGING ORDERA BLES Final Result * IMAGING SCANNED (08/24/2025) Anatomical Region Laterality Modality Radiographic Dayanara ging [facility] IMG DIAGNOSTIC IMAGING ORDERA BLES Final Result * IMAGING SCANNED (08/24/2025) Anatomical Region Laterality Modality Radiographic Dayanara ging Result [facility] IMG DIAGNOSTIC IMAGING ORDERA BLES Final Result * CT Outside Head (08/23/2025 12:10 AM EDT) Narrative SYSTEMGENERATED, DOCUMENTATION - 08/24/2025 4:34 PM EDT This procedure was auto-finalized with no dictation required. us [employer] IMG CT ORDERABLES Final Re sult * CT Outside Head (08/23/2025 12:05 AM EDT) Narrative SYSTEMGENERATED, DOCUMENTATION - 08/24/2025 4:25 PM EDT This procedure was auto-finalized with no dictation required. us [employer] IMG CT ORDERABLES Final Re sult * CT Outside Neck (08/23/2025 12:00 AM EDT) Narrative SYSTEMGENERATED, DOCUMENTATION - 08/24/2025 4:25 PM EDT This procedure was auto-finalized with no dictation required. us [employer] IMG CT ORDERABLES Final Re sult documented in this encounter Visit Diagnoses Diagnosis Right facial numbness- Primary Disturbance of skin sensation Dysphagia, unspecified type Dysarthria Chronic low back pain, unspecified back pain laterality, unspecified whether sciatica present Has a tremor Abnormal involuntary movements Chronic obstructive pulmonary disease, unspecified COPD type Congestive heart failure, unspecified HF chronicity, unspecified heart failure type Seizure disorder Unspecified epilepsy without mention of intractable epilepsy Mixed hyperlipidemia Hypothyroidism Unspecified hypothyroidism Gastroesophageal reflux disease without esophagitis Esophageal reflux Benign essential hypertension Essential hypertension, benign Congestive heart failure Congestive heart failure, unspecified documented in this encounter Admitting Diagnoses Diagnosis Right facial numbness Disturbance of skin sensation documented in this encounter Administered Medications Inactive Administered Medications - up to 3 most recent administrations Medication Order MAR Action Action Date Dose Rate Site acetaminophen (TYLENOL) 160 MG/5ML oral solution 650 mg 650 mg, Oral, Every 4 Hours PRN, Mild Pain, Starting on Mary 08/24/25 at 1542, If given for fever, use fever parameter: fever greater than 100.4 F Based on patient request - if ordered for moderate or severe pain, provider allows for administration of a medication prescribed for a lower pain scale. Do not exceed 4 grams of acetaminophen in a 24 hr period. Max dose of 2gm for AST/ALT greater than 120 units/L. If given for pain, use the following pain scale: Mild Pain = Pain Score of 1-3, CPOT 1-2 Moderate Pain = Pain Score of 4-6, CPOT 3-4 Severe Pain = Pain Score of 7-10, CPOT 5-8 acetaminophen (TYLENOL) suppository 650 mg 650 mg, Rectal, Every 4 Hours PRN, Mild Pain, Starting on Mary 08/24/25 at 1542, If given for fever, use fever parameter: fever greater than 100.4 F Based on patient request - if ordered for moderate or severe pain, provider allows for administration of a medication prescribed for a lower pain scale. Do not exceed 4 grams of acetaminophen in a 24 hr period. Max dose of 2gm for AST/ALT greater than 120 units/L. If given for pain, use the following pain scale: Mild Pain = Pain Score of 1-3, CPOT 1-2 Moderate Pain = Pain Score of 4-6, CPOT 3-4 Severe Pain = Pain Score of 7-10, CPOT 5-8 acetaminophen (TYLENOL) tablet 650 mg 650 mg, Oral, Every 4 Hours PRN, Mild Pain, Starting on Mary 08/24/25 at 1542, If given for fever, use fever parameter: fever greater than 100.4 F Based on patient request - if ordered for moderate or severe pain, provider allows for administration of a medication prescribed for a lower pain scale. Do not exceed 4 grams of acetaminophen in a 24 hr period. Max dose of 2gm for AST/ALT greater than 120 units/L. If given for pain, use the following pain scale: Mild Pain = Pain Score of 1-3, CPOT 1-2 Moderate Pain = Pain Score of 4-6, CPOT 3-4 Severe Pain = Pain Score of 7-10, CPOT 5-8 Given 08/27/2025 10:55 AM EDT 650 mg Given 08/26/2025 8:42 PM EDT 650 mg Given 08/24/2025 11:59 PM EDT 650 mg aspirin chewable tablet 81 mg 81 mg, Oral, Daily, First dose on Mary 08/24/25 at 1615, If patient fails dysphagia, DC option MUST be given. Do not exceed 4 grams of aspirin in a 24 hr period. If given for pain, use the following pain scale: Mild Pain = Pain Score of 1-3, CPOT 1-2 Moderate Pain = Pain Score of 4-6, CPOT 3-4 Severe Pain = Pain Score of 7-10, CPOT 5-8 Given 08/27/2025 8:48 AM EDT 81 mg Given 08/26/2025 9:09 AM EDT 81 mg Given 08/25/2025 9:29 AM EDT 81 mg aspirin suppository 300 mg 300 mg, Rectal, Daily, First dose on Mary 08/24/25 at 1615, If patient fails dysphagia, DC option MUST be given. Do not exceed 4 grams of aspirin in a 24 hr period. If given for pain, use the following pain scale: Mild Pain = Pain Score of 1-3, CPOT 1-2 Moderate Pain = Pain Score of 4-6, CPOT 3-4 Severe Pain = Pain Score of 7-10, CPOT 5-8 atorvastatin (LIPITOR) tablet 40 mg 40 mg, Oral, Nightly, First dose (after last modification) on Mary 08/24/25 at 2100, Avoid grapefruit juice. Given 08/26/2025 8:42 PM EDT 40 mg Given 08/25/2025 9:06 PM EDT 40 mg Given 08/24/2025 9:19 PM EDT 40 mg bisacodyl (DULCOLAX) EC tablet 5 mg 5 mg, Oral, Daily PRN, Constipation, Use if polyethylene glycol is ineffective, Starting on Mary 08/24/25 at 1542, Use if no bowel movement after 12 hours. Swallow whole. Do not crush, split, or chew tablet. bisacodyl (DULCOLAX) suppository 10 mg 10 mg, Rectal, Daily PRN, Constipation, Use if bisacodyl oral is ineffective, Starting on Mary 08/24/25 at 1542, Use if no bowel movement after 12 hours. Hold for diarrhea bisoprolol (ZEBeta) tablet 5 mg 5 mg, Oral, Daily, First dose on Thu08/25/25 at 0900, Hold for SBP less than 100, DBP less than 60, or heart rate less than 50. If a dose is held, please contact the provider. Caution: Look alike/sound alike drug alert Given 08/27/2025 8:47 AM EDT 5 mg Given 08/26/2025 9:09 AM EDT 5 mg Given 08/25/2025 9:29 AM EDT 5 mg budesonide-formoterol (SYMBICORT) 160-4.5 MCG/ACT inhaler 2 puff 2 puff, Inhalation, 2 Times Daily - RT, First dose on Mary 08/24/25 at 2130, Include Respiratory Treatment Education (SP) Shake well. Rinse mouth after use, do not swallow water. Send aerosols to pharmacy in ziplock bag for proper disposal. Given 08/27/2025 10:38 AM EDT 2 puffs Given 08/26/2025 7:36 PM EDT 2 puffs Given 08/26/2025 7:57 AM EDT 2 puffs Calcium Replacement - Follow Nurse / BPA Driven Protocol Open Order & Select BHS Electrolyte Replacement Protocol Algorithm to View Details clopidogrel (PLAVIX) tablet 75 mg 75 mg, Oral, Daily, First dose on Mary 08/24/25 at 1645 Given 08/25/2025 9:28 AM EDT 75 mg furosemide (LASIX) tablet 40 mg 40 mg, Oral, 2 Times Daily, First dose on Mary 08/24/25 at 2100 Given 08/26/2025 8:43 PM EDT 40 mg Given 08/26/2025 9:09 AM EDT 40 mg Given 08/25/2025 9:02 PM EDT 40 mg furosemide (LASIX) tablet 40 mg 40 mg, Oral, 2 Times Daily (Diuretics), First dose (after last modification) on [place] 08/27/25 at 0900 Given 08/27/2025 8:47 AM EDT 40 mg HYDROcodone-acetaminophen (NORCO) 5-325 MG per tablet 1 tablet 1 tablet, Oral, Every 4 Hours PRN, Moderate Pain, Starting on [facility] 08/24/25 at 1546, Based on patient request - if ordered for moderate or severe pain, provider allows for administration of a medication prescribed for a lower pain scale. [LAURIE] Do not exceed 4 grams of acetaminophen in a 24 hr period. Max dose of 2gm for AST/ALT greater than 120 units/L If given for pain, use the following pain scale: Mild Pain = Pain Score of 1-3, CPOT 1-2 Moderate Pain = Pain Score of 4-6, CPOT 3-4 Severe Pain = Pain Score of 7-10, CPOT 5-8 Given 08/27/2025 9:09 AM EDT 1 tablet Given 08/27/2025 4:19 AM EDT 1 tablet Given 08/26/2025 9:54 PM EDT 1 tablet ipratropium-albuterol (DUO-NEB) nebulizer solution 3 mL 3 mL, Nebulization, Every 4 Hours PRN, Shortness of Air, Starting on [facility] 08/24/25 at 1547, Include Respiratory Treatment Education levETIRAcetam (KEPPRA) tablet 1,000 mg 1,000 mg, Oral, 2 Times Daily, First dose on [facility] 08/24/25 at 2100, Mucous membrane irritant. Do not crush or chew tablet or capsule unless administered through a feeding tube. For tube route administration, disperse crushed tablets in 10 mL of water, shake for 5 minutes to dissolve, and administer immediately via enteral feeding tube. Caution: Look alike/sound alike drug alert. Given 08/27/2025 8:48 AM EDT 1,000 mg Given 08/26/2025 8:41 PM EDT 1,000 mg Given 08/26/2025 9:09 AM EDT 1,000 mg levothyroxine (SYNTHROID, LEVOTHROID) tablet 88 mcg 88 mcg, Oral, Daily, First dose on Thu08/25/25 at 0900, Take on empty stomach. Given 08/27/2025 8:48 AM EDT 88 mcg Given 08/26/2025 9:09 AM EDT 88 mcg Given 08/25/2025 9:29 AM EDT 88 mcg Magnesium Standard Dose Replacement - Follow Nurse / BPA Driven Protocol Open Order & Select BHS Electrolyte Replacement Protocol Algorithm to View Details melatonin tablet 5 mg 5 mg, Oral, Nightly, First dose on Mary 08/24/25 at 2100 Given 08/26/2025 8:43 PM EDT 5 mg Given 08/25/2025 9:06 PM EDT 5 mg Given 08/24/2025 9:19 PM EDT 5 mg nitroglycerin (NITROSTAT) SL tablet 0.4 mg 0.4 mg, Sublingual, Every 5 Minutes PRN, Chest Pain, Starting on Mary 08/24/25 at 1542, If Pain Unrelieved After 3 Doses Notify MD May administer up to 3 doses per episode. Hold if SBP less than 100. nystatin (MYCOSTATIN) 977142 UNIT/GM cream 1 Application 1 Application, Topical, Every 12 Hours Scheduled, First dose on Mary 08/24/25 at 2230, Apply to affected area. Given 08/27/2025 9:11 AM EDT 1 Applicati on Given 08/26/2025 9:09 AM EDT 1 Application Given 08/25/2025 9:29 AM EDT 1 Application ondansetron (ZOFRAN) injection 4 mg 4 mg, Intravenous, Every 6 Hours PRN, Nausea, Vomiting, Starting on Mary 08/24/25 at 1542, If BOTH ondansetron (ZOFRAN) and promethazine (PHENERGAN) are ordered use ondansetron first and THEN promethazine IF ondansetron is ineffective. Given 08/27/2025 5:00 AM EDT 4 mg ondansetron ODT (ZOFRAN-ODT) disintegrating tablet 4 mg 4 mg, Oral, Every 6 Hours PRN, Nausea, Vomiting, Starting on Mary 08/24/25 at 1542, If BOTH ondansetron (ZOFRAN) and promethazine (PHENERGAN) are ordered use ondansetron first and THEN promethazine IF ondansetron is ineffective. Place on tongue and allow to dissolve. Given 08/26/2025 9:55 PM EDT 4 mg Given 08/25/2025 8:06 PM EDT 4 mg Given 08/25/2025 12:38 AM EDT 4 mg pantoprazole (PROTONIX) EC tablet 40 mg 40 mg, Oral, Every [employer], First dose on Thu08/25/25 at 0600, Swallow whole; do not crush, split, or chew. Given 08/27/2025 5:00 AM EDT 40 mg Given 08/26/2025 5:43 AM EDT 40 mg Given 08/25/2025 5:25 AM EDT 40 mg Phosphorus Replacement - Follow Nurse / BPA Driven Protocol Open Order & Select S Electrolyte Replacement Protocol Algorithm to View Details polyethylene glycol (MIRALAX) packet 17 g 17 g, Oral, Daily PRN, Constipation, Use if senna-docusate is ineffective, Starting on Mary 08/24/25 at 1542, Use if no bowel movement after 12 hours. Mix in 6-8 ounces of water. Use 4-8 ounces of water, tea, or juice for each 17 gram dose. Potassium Replacement - Follow Nurse / BPA Driven Protocol Open Order & Select S Electrolyte Replacement Protocol Algorithm to View Details QUEtiapine (SEROquel) tablet 25 mg 25 mg, Oral, Nightly, First dose (after last modification) on Thu08/25/25 at 2100, Caution: Look alike/sound alike drug alert Given 08/26/2025 8:42 PM EDT 2 5 mg Given 08/25/2025 9:06 PM EDT 25 mg rOPINIRole (REQUIP) tablet 1 mg 1 mg, Oral, Nightly, First dose on Mary 08/24/25 at 2100, Caution: Look alike/sound alike drug alert Given 08/26/2025 8:41 PM EDT 1 mg Given 08/25/2025 9:06 PM EDT 1 mg Given 08/24/2025 9:18 PM EDT 1 mg sennosides-docusate (PERICOLACE) 8.6-50 MG per tablet 2 tablet 2 tablet, Oral, 2 Times Daily PRN, Constipation, Starting on Mary 08/24/25 at 1542, Start bowel management regimen if patient has not had a bowel movement after 12 hours. sodium chloride 0.9 % flush 10 mL 10 mL, Intravenous, Every 12 Hours Scheduled, First dose on Mary 08/24/25 at 2100 Given 08/26/2025 8:49 PM EDT 10 mL Given 08/26/2025 9:09 AM EDT 10 mL Given 08/25/2025 9:30 AM EDT 10 mL sodium chloride 0.9 % flush 10 mL 10 mL, Intravenous, As Needed, Line Care, Starting on Mary 08/24/25 at 1542 sodium chloride 0.9 % infusion 40 mL 40 mL, Intravenous, As Needed, Line Care, Starting on Mary 08/24/25 at 1542, Following administration of an IV intermittent medication, flush line with 40mL NS at 100mL/hr. documented in this encounter Active and Recently Administered Medications Times are shown in EDT. Scheduled Medication Order 08/25/2025 08/26/2025 08/27/2025 aspirin chewable tablet 81 mg(Linked Group 1) 81 mg, Oral, Daily, First dose on Mary 08/24/25 at 1615, If patient fails dysphagia, DC option MUST be given. Do not exceed 4 grams of aspirin in a 24 hr period. If given for pain, use the following pain scale: Mild Pain = Pain Score of 1-3, CPOT 1-2 Moderate Pain = Pain Score of 4-6, CPOT 3-4 Severe Pain = Pain Score of 7-10, CPOT 5-8 0929 (Given - Provider: Mian Almaraz RN) 0909 (Given - Provider: Mira Nava RN) 0848 (Given - Provider: Iveth Gastelum RN) aspirin suppository 300 mg(Linked Group 1) 300 mg, Rectal, Daily, First dose on Mary 08/24/25 at 1615, If patient fails dysphagia, DC option MUST be given. Do not exceed 4 grams of aspirin in a 24 hr period. If given for pain, use the following pain scale: Mild Pain = Pain Score of 1-3, CPOT 1-2 Moderate Pain = Pain Score of 4-6, CPOT 3-4 Severe Pain = Pain Score of 7-10, CPOT 5-8 0929 (Not Given: See Alt - Provider: Mian Almaraz, RN) 0909 (Not Given: See Alt - Provider: Mira Nava, RN) 0848 (Not Given: See Alt - Provider: Iveth Gastelum, RN) atorvastatin (LIPITOR) tablet 40 mg 40 mg, Oral, Nightly, First dose (after last modification) on Mary 08/24/25 at 2100, Avoid grapefruit juice. 2105 (Given - Provider: Ja Escudero, RN) 2041 (Given - Provider: Alma Lyons, TIM) bisoprolol (ZEBeta) tablet 5 mg 5 mg, Oral, Daily, First dose on Thu08/25/25 at 0900, Hold for SBP less than 100, DBP less than 60, or heart rate less than 50. If a dose is held, please contact the provider. Caution: Look alike/sound alike drug alert 0929 (Given - Provider: Mian Almaraz, RN) 0909 (Given - Provider: Mira Nava, TIM) 0847 (Given - Provider: Iveth Gastelum, TIM) budesonide-formoterol (SYMBICORT) 160-4.5 MCG/ACT inhaler 2 puff 2 puff, Inhalation, 2 Times Daily - RT, First dose on Thu08/24/25 at 2130, Include Respiratory Treatment Education (SP) Shake well. Rinse mouth after use, do not swallow water. Send aerosols to pharmacy in ziplock bag for proper disposal. 0848 (Given - Provider: Brittaney Coker, MEDICAL STAFF MANAGER)2055 (Given - Provider: Karen Guerin, BISHOP) 075 (Given - Provider: Jennifer Wallace, BISHOP)0930 (Canceled Entry - Provider: Jennifer Wallace, MEDICAL STAFF MANAGER)193 (Given - Provider: Gennaro Bee, BISHOP) 1038 (Given - Provider: Butch Moy, BISHOP) clopidogrel (PLAVIX) tablet 75 mg (CANCELED) 75 mg, Oral, Daily, First dose on Mary 08/24/25 at 1645 0928 (Given - Provider: Mian Almaraz, RN) furosemide (LASIX) tablet 40 mg (CANCELED) 40 mg, Oral, 2 Times Daily, First dose on Mary 08/24/25 at 2100 0929 (Given - Provider: Mian Almaraz RN)2101 (Given - Provider: Ja Escudero RN) 09 (Given - Provider: Mira Nava, TIM)2042 (Given - Provider: Alma Lyons, TIM) furosemide (LASIX) tablet 40 mg 40 mg, Oral, 2 Times Daily (Diuretics), First dose (after last modification) on Thu08/27/25 at 0900 0847 (Given - Provider: Iveth Gastelum, TIM) levETIRAcetam (KEPPRA) tablet 1,000 mg 1,000 mg, Oral, 2 Times Daily, First dose on Mary 08/24/25 at 2100, Mucous membrane irritant. Do not crush or chew tablet or capsule unless administered through a feeding tube. For tube route administration, disperse crushed tablets in 10 mL of water, shake for 5 minutes to dissolve, and administer immediately via enteral feeding tube. Caution: Look alike/sound alike drug alert. 09 (Given - Provider: Mian Almaraz RN)2107 (Given - Provider: Ja Escudero RN) 09 (Given - Provider: Mira Nava, TIM)2040 (Given - Provider: Alma Lyons, TIM) 0848 (Given - Provider: Iveth Gastelum, TIM) levothyroxine (SYNTHROID, LEVOTHROID) tablet 88 mcg 88 mcg, Oral, Daily, First dose on Thu08/25/25 at 0900, Take on empty stomach. 0929 (Given - Provider: iMan Almaraz RN) 09 (Given - Provider: Mira Nava, TIM) 0848 (Given - Provider: Iveth Gastelum, TIM) melatonin tablet 5 mg 5 mg, Oral, Nightly, First dose on Mary 08/24/25 at 2100 2106 (Given - Provider: Ja Escudero RN) 2042 (Given - Provider: Alma Lyons, TIM) nystatin (MYCOSTATIN) 430801 UNIT/GM cream 1 Application 1 Application, Topical, Every 12 Hours Scheduled, First dose on Thu08/24/25 at 2230, Apply to affected area. 09 (Given - Provider: Mian Almaraz RN)2109 (Canceled Entry - Provider: Ja Escudero RN) 908 (Given - Provider: Mira Nava, RN)2323 (Not Given - Provider: Alma Lyons, TIM - Reason: Patient/family refused) 910 (Given - Provider: Iveth Gastelum, TIM) pantoprazole (PROTONIX) EC tablet 40 mg 40 mg, Oral, Every [employer], First dose on Thu08/25/25 at 0600, Swallow whole; do not crush, split, or chew. 0525 (Given - Provider: Luana Mccann RN) 0543 (Given - Provider: Ja Escudero RN) 0500 (Given - Provider: Alma Lyons, TIM) QUEtiapine (SEROquel) tablet 25 mg 25 mg, Oral, Nightly, First dose (after last modification) on Thu08/25/25 at 2100, Caution: Look alike/sound alike drug alert 2105 (Given - Provider: Ja Escudero RN) 2041 (Given - Provider: Alma Lyons, TIM) rOPINIRole (REQUIP) tablet 1 mg 1 mg, Oral, Nightly, First dose on Thu08/24/25 at 2100, Caution: Look alike/sound alike drug alert 2105 (Given - Provider: Ja Escudero, TIM) 2040 (Given - Provider: Alma Lyons, TIM) sodium chloride 0.9 % flush 10 mL 10 mL, Intravenous, Every 12 Hours Scheduled, First dose on Thu08/24/25 at 2100 0930 (Given - Provider: Mian Almaraz, TIM)2109 (Canceled Entry - Provider: Ja Escudero RN) 908 (Given - Provider: Mira Nava, RN)2048 (Given - Provider: Alma Lyons, TIM) 909 (Canceled Entry - Provider: Iveth Gastelum, TIM) PRN Medication Order 08/25/2025 08/26/2025 08/27/2025 acetaminophen (TYLENOL) 160 MG/5ML oral solution 650 mg(Linked Group 2) 650 mg, Oral, Every 4 Hours PRN, Mild Pain, Starting on Mary 08/24/25 at 1542, If given for fever, use fever parameter: fever greater than 100.4 F Based on patient request - if ordered for moderate or severe pain, provider allows for administration of a medication prescribed for a lower pain scale. Do not exceed 4 grams of acetaminophen in a 24 hr period. Max dose of 2gm for AST/ALT greater than 120 units/L. If given for pain, use the following pain scale: Mild Pain = Pain Score of 1-3, CPOT 1-2 Moderate Pain = Pain Score of 4-6, CPOT 3-4 Severe Pain = Pain Score of 7-10, CPOT 5-8 2 (Not Given: See Alt - Provider: Alma Lyons RN) 0848 (Not Given: See Alt - Provider: Iveth Gastelum RN)1055 (Not Given: See Alt - Provider: Iveth Gastelum RN) acetaminophen (TYLENOL) suppository 650 mg(Linked Group 2) 650 mg, Rectal, Every 4 Hours PRN, Mild Pain, Starting on Mary 08/24/25 at 1542, If given for fever, use fever parameter: fever greater than 100.4 F Based on patient request - if ordered for moderate or severe pain, provider allows for administration of a medication prescribed for a lower pain scale. Do not exceed 4 grams of acetaminophen in a 24 hr period. Max dose of 2gm for AST/ALT greater than 120 units/L. If given for pain, use the following pain scale: Mild Pain = Pain Score of 1-3, CPOT 1-2 Moderate Pain = Pain Score of 4-6, CPOT 3-4 Severe Pain = Pain Score of 7-10, CPOT 5-8 2 (Not Given: See Alt - Provider: Alma Lyons RN) 0848 (Not Given: See Alt - Provider: Iveth Gastelum RN)1055 (Not Given: See Alt - Provider: Iveth Gastelum RN) acetaminophen (TYLENOL) tablet 650 mg(Linked Group 2) 650 mg, Oral, Every 4 Hours PRN, Mild Pain, Starting on Mary 25 at 1542, If given for fever, use fever parameter: fever greater than 100.4 F Based on patient request - if ordered for moderate or severe pain, provider allows for administration of a medication prescribed for a lower pain scale. Do not exceed 4 grams of acetaminophen in a 24 hr period. Max dose of 2gm for AST/ALT greater than 120 units/L. If given for pain, use the following pain scale: Mild Pain = Pain Score of 1-3, CPOT 1-2 Moderate Pain = Pain Score of 4-6, CPOT 3-4 Severe Pain = Pain Score of 7-10, CPOT 5-8 2042 (Given - Provider: Alma Lyons RN) 0848 (Not Given - Provider: Iveth Gastelum, RN - Reason: Contraindicated)1055 (Given - Provider: Iveth Gastelum, TIM) bisacodyl (DULCOLAX) EC tablet 5 mg(Linked Group 3) 5 mg, Oral, Daily PRN, Constipation, Use if polyethylene glycol is ineffective, Starting on Mary 08/24/25 at 1542, Use if no bowel movement after 12 hours. Swallow whole. Do not crush, split, or chew tablet. bisacodyl (DULCOLAX) suppository 10 mg(Linked Group 3) 10 mg, Rectal, Daily PRN, Constipation, Use if bisacodyl oral is ineffective, Starting on Mary 08/24/25 at 1542, Use if no bowel movement after 12 hours. Hold for diarrhea Calcium Replacement - Follow Nurse / BPA Driven Protocol Open Order & Select S Electrolyte Replacement Protocol Algorithm to View Details HYDROcodone-acetaminophen (NORCO) 5-325 MG per tablet 1 tablet 1 tablet, Oral, Every 4 Hours PRN, Moderate Pain, Starting on Mary 08/24/25 at 1546, Based on patient request - if ordered for moderate or severe pain, provider allows for administration of a medication prescribed for a lower pain scale. [LAURIE] Do not exceed 4 grams of acetaminophen in a 24 hr period. Max dose of 2gm for AST/ALT greater than 120 units/L If given for pain, use the following pain scale: Mild Pain = Pain Score of 1-3, CPOT 1-2 Moderate Pain = Pain Score of 4-6, CPOT 3-4 Severe Pain = Pain Score of 7-10, CPOT 5-8 0218 (Given - Provider: Ja Escduero, RN)0622 (Given - Provider: Luana Mccann, RN)1225 (Given - Provider: Mian Almaraz, RN)1648 (Given - Provider: Mian Almaraz, RN)2101 (Given - Provider: Ja Escudero, RN) 0543 (Given - Provider: Ja Escudero, RN)1806 (Given - Provider: Mira Nava, RN)215 (Given - Provider: Alma Lyons, TIM) 0419 (Given - Provider: Alma Lyons, RN)0909 (Given - Provider: Iveth Gastelum, TIM) ipratropium-albuterol (DUO-NEB) nebulizer solution 3 mL 3 mL, Nebulization, Every 4 Hours PRN, Shortness of Air, Starting on Mary 08/24/25 at 1547, Include Respiratory Treatment Education Magnesium Standard Dose Replacement - Follow Nurse / BPA Driven Protocol Open Order & Select S Electrolyte Replacement Protocol Algorithm to View Details nitroglycerin (NITROSTAT) SL tablet 0.4 mg 0.4 mg, Sublingual, Every 5 Minutes PRN, Chest Pain, Starting on Mary 08/24/25 at 1542, If Pain Unrelieved After 3 Doses Notify MD May administer up to 3 doses per episode. Hold if SBP less than 100. ondansetron (ZOFRAN) injection 4 mg(Linked Group 4) 4 mg, Intravenous, Every 6 Hours PRN, Nausea, Vomiting, Starting on Mary 08/24/25 at 1542, If BOTH ondansetron (ZOFRAN) and promethazine (PHENERGAN) are ordered use ondansetron first and THEN promethazine IF ondansetron is ineffective. 0038 (Not Given: See Alt - Provider: Ja Escudero RN)2005 (Not Given: See Alt - Provider: Hair Gavin RN) 2154 (Not Given: See Alt - Provider: Alma Lyons, TIM) 0500 (Given - Provider: Alma Lyons, TIM) ondansetron ODT (ZOFRAN-ODT) disintegrating tablet 4 mg(Linked Group 4) 4 mg, Oral, Every 6 Hours PRN, Nausea, Vomiting, Starting on Mary 08/24/25 at 1542, If BOTH ondansetron (ZOFRAN) and promethazine (PHENERGAN) are ordered use ondansetron first and THEN promethazine IF ondansetron is ineffective. Place on tongue and allow to dissolve. 0038 (Given - Provider: Ja Escudero, RN)2005 (Given - Provider: Hair Gavin, TIM) 215 (Given - Provider: Alma Lyons, RN) 0500 (Not Given: See Alt - Provider: Alma Lyons, TIM) Phosphorus Replacement - Follow Nurse / BPA Driven Protocol Open Order & Select [facility] Electrolyte Replacement Protocol Algorithm to View Details polyethylene glycol (MIRALAX) packet 17 g(Linked Group 3) 17 g, Oral, Daily PRN, Constipation, Use if senna-docusate is ineffective, Starting on Mary 08/24/25 at 1542, Use if no bowel movement after 12 hours. Mix in 6-8 ounces of water. Use 4-8 ounces of water, tea, or juice for each 17 gram dose. Potassium Replacement - Follow Nurse / BPA Driven Protocol Open Order & Select [facility] Electrolyte Replacement Protocol Algorithm to View Details sennosides-docusate (PERICOLACE) 8.6-50 MG per tablet 2 tablet(Linked Group 3) 2 tablet, Oral, 2 Times Daily PRN, Constipation, Starting on Mary 08/24/25 at 1542, Start bowel management regimen if patient has not had a bowel movement after 12 hours. sodium chloride 0.9 % flush 10 mL 10 mL, Intravenous, As Needed, Line Care, Starting on Mary 08/24/25 at 1542 sodium chloride 0.9 % infusion 40 mL 40 mL, Intravenous, As Needed, Line Care, Starting on Mary 08/24/25 at 1542, Following administration of an IV intermittent medication, flush line with 40mL NS at 100mL/hr. Linked Groups Order Group 1: aspirin chewable tablet 81 mgJump to med 81 mg, Oral, Daily, First dose on Mary 08/24/25 at 1615, If patient fails dysphagia, DC option MUST be given. Do not exceed 4 grams of aspirin in a 24 hr period. If given for pain, use the following pain scale: Mild Pain = Pain Score of 1-3, CPOT 1-2 Moderate Pain = Pain Score of 4-6, CPOT 3-4 Severe Pain = Pain Score of 7-10, CPOT 5-8 Or aspirin suppository 300 mgJump to med 300 mg, Rectal, Daily, First dose on Mary 08/24/25 at 1615, If patient fails dysphagia, DC option MUST be given. Do not exceed 4 grams of aspirin in a 24 hr period. If given for pain, use the following pain scale: Mild Pain = Pain Score of 1-3, CPOT 1-2 Moderate Pain = Pain Score of 4-6, CPOT 3-4 Severe Pain = Pain Score of 7-10, CPOT 5-8 Group 2: acetaminophen (TYLENOL) tablet 650 mgJump to med 650 mg, Oral, Every 4 Hours PRN, Mild Pain, Starting on Mary 08/24/25 at 1542, If given for fever, use fever parameter: fever greater than 100.4 F Based on patient request - if ordered for moderate or severe pain, provider allows for administration of a medication prescribed for a lower pain scale. Do not exceed 4 grams of acetaminophen in a 24 hr period. Max dose of 2gm for AST/ALT greater than 120 units/L. If given for pain, use the following pain scale: Mild Pain = Pain Score of 1-3, CPOT 1-2 Moderate Pain = Pain Score of 4-6, CPOT 3-4 Severe Pain = Pain Score of 7-10, CPOT 5-8 Or acetaminophen (TYLENOL) 160 MG/5ML oral solution 650 mgJump to med 650 mg, Oral, Every 4 Hours PRN, Mild Pain, Starting on Mary 08/24/25 at 1542, If given for fever, use fever parameter: fever greater than 100.4 F Based on patient request - if ordered for moderate or severe pain, provider allows for administration of a medication prescribed for a lower pain scale. Do not exceed 4 grams of acetaminophen in a 24 hr period. Max dose of 2gm for AST/ALT greater than 120 units/L. If given for pain, use the following pain scale: Mild Pain = Pain Score of 1-3, CPOT 1-2 Moderate Pain = Pain Score of 4-6, CPOT 3-4 Severe Pain = Pain Score of 7-10, CPOT 5-8 Or acetaminophen (TYLENOL) suppository 650 mgJump to med 650 mg, Rectal, Every 4 Hours PRN, Mild Pain, Starting on Mary 08/24/25 at 1542, If given for fever, use fever parameter: fever greater than 100.4 F Based on patient request - if ordered for moderate or severe pain, provider allows for administration of a medication prescribed for a lower pain scale. Do not exceed 4 grams of acetaminophen in a 24 hr period. Max dose of 2gm for AST/ALT greater than 120 units/L. If given for pain, use the following pain scale: Mild Pain = Pain Score of 1-3, CPOT 1-2 Moderate Pain = Pain Score of 4-6, CPOT 3-4 Severe Pain = Pain Score of 7-10, CPOT 5-8 Group 3: sennosides-docusate (PERICOLACE) 8.6-50 MG per tablet 2 tabletJump to med 2 tablet, Oral, 2 Times Daily PRN, Constipation, Starting on Mary 08/24/25 at 1542, Start bowel management regimen if patient has not had a bowel movement after 12 hours. And polyethylene glycol (MIRALAX) packet 17 gJump to med 17 g, Oral, Daily PRN, Constipation, Use if senna-docusate is ineffective, Starting on Mary 08/24/25 at 1542, Use if no bowel movement after 12 hours. Mix in 6-8 ounces of water. Use 4-8 ounces of water, tea, or juice for each 17 gram dose. And bisacodyl (DULCOLAX) EC tablet 5 mgJump to med 5 mg, Oral, Daily PRN, Constipation, Use if polyethylene glycol is ineffective, Starting on Mary 08/24/25 at 1542, Use if no bowel movement after 12 hours. Swallow whole. Do not crush, split, or chew tablet. And bisacodyl (DULCOLAX) suppository 10 mgJump to med 10 mg, Rectal, Daily PRN, Constipation, Use if bisacodyl oral is ineffective, Starting on Mary 08/24/25 at 1542, Use if no bowel movement after 12 hours. Hold for diarrhea Group 4: ondansetron ODT (ZOFRAN-ODT) disintegrating tablet 4 mgJump to med 4 mg, Oral, Every 6 Hours PRN, Nausea, Vomiting, Starting on Mary 08/24/25 at 1542, If BOTH ondansetron (ZOFRAN) and promethazine (PHENERGAN) are ordered use ondansetron first and THEN promethazine IF ondansetron is ineffective. Place on tongue and allow to dissolve. Or ondansetron (ZOFRAN) injection 4 mgJump to med 4 mg, Intravenous, Every 6 Hours PRN, Nausea, Vomiting, Starting on Mary 08/24/25 at 1542, If BOTH ondansetron (ZOFRAN) and promethazine (PHENERGAN) are ordered use ondansetron first and THEN promethazine IF ondansetron is ineffective. documented in this encounter Care Teams Vp Transportation Relationship Specialty Start Date End Date Marly Kumar APRN [address] [place] [address] PCP - General Family Medicine 07/06/24 documented as of this encounter
--- OUTSIDE RECORDS SUMMARY | 2025-09-11 14:00 | XMS_ITS | Encounter Summary ---
Author Organization [facility] Address [address] [place] [address] Care Team Providers Care Glassware Finisher Name Role Phone Marly Kumar Kaity ROSENBERG Primary Care Provider [phone] Reason for Visit * Reason Comments Coronary Artery Disease Hypertension Pacemaker Check Encounter Details Date Type Department Care Team (Latest Contact Info) Description 09/11/2025 2:00 PM EST Office Visit [facility] CARDIOLOGY [address] [place] [address] Nereida Ambrose APRN [address] [place] [address] Automatic implantable cardiac defibrillator in situ [Z95.810] (Primary Dx); Coronary artery disease involving barrow coronary artery of barrow heart without angina pectoris; Hypertension, essential; Mixed [...] PM ESTAssociated Problem(s): Coronary artery disease involving barrow coronary artery of barrow heart with out angina pectoris {Coronary Artery Disease (OPTIONAL):85775} Orders: Basic Metabolic Panel; Future Case Request Public Relations Professional: Left Heart Cath with Cors and SVG's, Left Heart Cath CBC Auto Differential; Future * Nereida Ambrose APRN - 09/11/2025 2:00 PM ESTAssociated Problem(s): Hypertension, essential {Hypertension is (optional):[id number]} * Nereida Ambrose APRN - 09/11/2025 2:00 PM ESTAssociated Problem(s): Mixed hyperlipidemia {Hyperlipidemia A/P Block (Optional):[id number]} * Nereida Ambrose APRN - 09/11/2025 2:00 PM ESTAssociated Problem(s): Precordial pain Orders: Basic Metabolic Panel; Future Case Request Public Relations Professional: Left Heart Cath with Cors and SVG's, [...] to the ER and was hospitalized at [facility] on 08/24/2025, pt had right facial [...] Disp: 25 tablet, Rfl: 5 nystatin (MYCOSTATIN) 713774 UNIT/GM cream, Apply 2 applications topically daily [...] in situ [Z95.810] Coronary artery disease involving barrow coronary artery of barrow heart without angina pectoris Orders: Basic Metabolic Panel; Future Case Request Public Relations Professional: Left Heart Cath with Cors and SVG's, Left Heart Cath CBC Auto Differential; Future Hypertension, essential Mixed hyperlipidemia Precordial pain Orders: Basic Metabolic Panel; Future Case Request Public Relations Professional: Left Heart Cath with Cors and SVG's, [...] pain has worsened will move forward with [facility]. To have CBC and BMP prior. - [...] worsened since last visit. - Order for [facility] 6. Lower Extremity Edema - Continue Lasix 40mg daily Recommendations: ER if symptoms increase, Report if any new/changing symptoms immediately, Limit salt, Elevate legs, Compression hose, and Limit caffeine Follow Up Return in about 6 weeks (around 10/23/2025) for Follow up after heart cath. Nereida Ambrose APRN Cardiology and Sleep [facility] 09/11/2025 Please note that this explicitly excludes time spent on other separate billable services such as performing procedures or test interpretation, when applicable. documented in this encounter Plan of Treatment Upcoming Encounters Date Type Department Care Team (Late st Contact Info) Description 10/31/2025 9:00 AM EST Office Visit [facility] CARDIOLOGY [address] [place] [address] Nereida Ambrose APRN [address] [place] [address] 11/13/2025 2:30 PM EST Office Visit [facility] NEUROLOGY [address] [place] [address] [place] [address] Camille Spann APRN [address] [facility] [address] [address] 02/09/2026 2:15 PM EDT Office Visit [facility]OENTEROLOGY [address] [facility] [address] [place] [id number] Shahla Troy PA-C [address] [place], [place] [id number] documented as of this encounter Visit Diagnoses Diagnosis Automatic implantable cardiac defibrillator in situ [Z95.810]- Primary Automatic implantable cardiac defibrillator in situ Coronary artery disease involving barrow coronary artery of barrow heart without angina pectoris Hypertension, essential Unspecified essential hypertension Mixed hyperlipidemia Precordial pain Bilateral lower extremity edema documented in this encounter Care Teams Glassware Finisher Relationship Specialty Start Date End Date Marly Kumar APRN [address] [place] [id number] PCP - General Family Medicine 07/06/24 documented as of this encounter
--- OUTSIDE RECORDS SUMMARY | 2025-09-21 09:03 | XMS_ITS | Encounter Summary ---
[facility] Address [address] [place] [address] Care Team Providers Care Parking Lot Laborer Name Role Phone JoséMarly APRN Primary Care Provider [phone] Reason for Referral * Diagnostic Medical (Routine) - Pending Review Specialty Diagnoses / Procedures Referred By Nubia dawkins Referred To Contact Diagnoses Coronary artery disease involving platinum coronary artery of platinum heart without angina pectoris Precordial pain Procedures Cardiac Catheterization/Vascular Study Nereida Ambrose APRN [address] [place] [address] Phone: tel: fax: Referral ID Status Reason Start Date Expiration Date V isits Requested Visits Authorized [id number] Pending Review 09/12/2025 12/12/2026 1 1 Reason for Visit * Auth/Cert Specialty Diagnoses / Procedures Referred By Nubia dawkins Referred To Contact Diagnoses Coronary artery disease involving platinum coronary artery of platinum heart without angina pectoris Precordial pain Procedures FL CATH PLMT L HRT & ARTS W/NJX & ANGIO IMG S&I Left Heart Cath Referral ID Status Reason Start Date Expiration Date Visits Re quested Visits Authorized [id number] 1 1 Encounter Details Date Type Department Care Team (Late st Contact Info) Description 09/21/2025 9:03 AM EST - 09/21/2025 3:54 PM EST Hospital Encounter [address] [id number] Justin Moses MD [address] [facility] [address] [place] [address] Coronary artery disease involving platinum coronary artery of platinum heart without angina pectoris; Precordial pain Discharge [...] 09/21/2025 9:30 AM Shelley Palacios RN * [place] Suicide Severity Rating Scale (Screener/Recent Self-Report) Question Answer Date of Assessment Author 6. Suicidal Behavior (Lifetime) No 9:30 AM Shelley Palacios RN documented as of this encounter Discharge Instructions * Attachments The following attachments cannot be sent through Care Everywhere. * Coronary Angiogram (French) * Coronary Angiogram Care After (French) * Radial Site Care (French) * Moderate Conscious Sedation Adult Care After (French) documented in this encounter Medications at Time [...] doses 25 tablet 5 02/01/2025 nystatin (MYCOSTATIN) 020863 UNIT/GM cream Apply 2 applications topically daily [...] to the ER and was hospitalized at [facility] on 08/24/2025, pt had right [...] Disp: 25 tablet, Rfl: 5 nystatin (MYCOSTATIN) 648483 UNIT/GM cream, Apply 2 applications topically daily [...] in situ [Z95.810] Coronary artery disease involving platinum coronary artery of platinum heart without angina pectoris Orders: Basic Metabolic Panel; Future Case Request Pediatric Audiologist: Left Heart Cath with Cors and SVG's, Left Heart Cath CBC Auto Differential; Future Hypertension, essential Mixed hyperlipidemia Precordial pain Orders: Basic Metabolic Panel; Future Case Request Pediatric Audiologist: Left Heart Cath with Cors and SVG's, [...] pain has worsened will move forward with [facility]. To have CBC and BMP prior. [...] worsened since last visit. - Order for [facility] 6. Lower Extremity Edema - Continue Lasix 40mg daily Recommendations: ER if symptoms increase, Report if any new/changing symptoms immediately, Limit salt, Elevate legs, Compression hose, and Limit caffeine Follow Up Return in about 6 weeks (around 10/23/2025) for Follow up after heart cath. Nereida Ambrose APRN Cardiology and Sleep [facility] 09/11/2025 Please note that this explicitly excludes time spent on other separate billable services such as performing procedures or test interpretation, when applicable. documented in this encounter Consult Notes * Hafsa Stover RN - 09/21/2025 12:34 PM ESTAssociated Order(s): IP CONSULT TO NUCLEAR PROCESS ENGINEER Diabetes Education Patient Name: Chaparrita Perkins Date [...] [facility] [address] [place] [phone] Nereida Ambrose APRN [address] [place] [address] 11/13/2025 2:30 PM EST Office Visit [facility] [address] [place] [address] Camille Spann APRN [address] [facility] [address] [address] 02/09/2026 2:15 PM EDT Office Visit [facility] GASTR[facility]ENTEROLOGY [address] [place] [phone] Shahla Troy PA-C [address] [facility] [address] [place], [place] [id number] documented as of this encounter Procedures Procedure Name Priority Date/Time Associated Diagnosis Comments SCANNED - TELEMETRY 09/21/2025 1 1:59 AM EST CARDIAC CATHETERIZATION Routine 09/21/20 25 11:48 AM EST Coronary artery disease involving platinum coronary artery of platinum heart without angina pectoris Precordial pain SCANNED [...] * Telemetry Scan (09/21/2025 11:59 AM EST) [facility] ECG ORDERABLES Final Result * LEFT HEART [...] the right radial artery using standard 6 [place] catheters. Borderline lesion in the RCA. Additional [...] * Telemetry Scan (09/21/2025 9:52 AM EST) Result [facility] Onbase ECG ORDERABLES Final Result * Telemetry Scan (09/21/2025 9:52 AM EST) [facility] Onbase ECG ORDERABLES Final Result * (ABNORMAL) Hemoglobin A1c (09/21/2025 9:34 AM EST) Hemoglobin A1C 5.82(H) 4.80 - 5.60 % 09/21/2025 11:09 AM EST [facility] Blood Line / Unknown 09/21/2025 9: 34 AM EST 09/21/2025 10:17 AM EST Narrative [facility] - 09/21/2025 11:09 AM EST Hemoglobin A1C Ranges: Increased Risk for Diabetes 5.7% to 6.4% Diabetes >= 6.5% Diabetic Goal < 7.0% Denise Pandey APRN LAB BLOOD ORDERABLES Final Result [facility]
[address] [place] [address], * Lipid Panel (09/21/2025 9:34 AM EST) Total Cholesterol 94 0 - 200 mg/dL 09/21/2025 10:45 AM EST [facility] Triglycerides 77 0 - 150 mg/dL 09/21/2025 10:45 AM EST [facility] HDL Cholesterol 40 40 - 60 mg/dL 09/21/2025 10:45 AM EST [facility] LDL Cholesterol 38 0 - 100 mg/dL 09/21/2025 10:45 AM EST [facility] VLDL Cholesterol 16 5 - 40 mg/dL 09/21/2025 10:45 AM EST [facility] LDL/HDL Ratio 0.97 09/21/2025 10:45 AM EST [facility] Blood Line / Unknown 09/21/2025 9: 34 AM EST 09/21/2025 10:17 AM EST [facility] - 09/21/2025 10:45 AM EST Cholesterol [...] is calculated using the NIH LDL-C calculation. Denise Pandey APRN LAB BLOOD ORDERABLES Final Result [facility]
[address] [place] [address], * Comprehensive Metabolic Panel (09/21/2025 9:34 AM EST) [facility] Glucose 89 65 - 99 mg/dL 09/21/2025 10:45 AM EST [facility] BUN 15.5 8.0 - 23.0 mg/dL 09/21/2025 10:45 AM EST [facility] Creatinine 0.82 0.57 - 1.00 mg/dL 09/21/2025 10:45 AM EST [facility] Sodium 138 136 - 145 mmol/L 09/21/2025 10:45 AM EST [facility] Potassium 4.4 3.5 - 5.2 mmol/L 09/21/2025 10:45 AM EST [facility] Chloride 106 98 - 107 mmol/L 09/21/2025 10:45 AM EST [facility] CO2 22.9 22.0 - 29.0 mmol/L 09/21/2025 10:45 AM EST [facility] Calcium 9.6 8.6 - 10.5 mg/dL 09/21/2025 10:45 AM EST [facility] Total Protein 6.6 6.0 - 8.5 g/dL 09/21/2025 10:45 AM [facility] Albumin 3.6 3.5 - 5.2 g/dL 09/21/2025 10:45 AM [facility] ALT (SGPT) 20 1 - 33 U/L 09/21/2025 10:45 AM [facility] AST (SGOT) 28 1 - 32 U/L 09/21/2025 10:45 AM [facility] Alkaline Phosphatase 58 39 - 117 U/L 09/21/2025 10:45 AM [facility] Total Bilirubin 0.5 0.0 - 1.2 mg/dL 09/21/2025 10:45 AM [facility] Globulin 3.0 gm/dL 09/21/2025 10:45 AM [facility] Comment:Calculated Result A/G Ratio 1.2 g/dL 09/21/2025 10:45 AM [facility] BUN/Creatinine Ratio 18.9 7.0 - 25.0 09/21/2025 10:45 AM [facility] Anion Gap 9.1 5.0 - 15.0 mmol/L 09/21/2025 10:45 AM [facility] eGFR 76.1 >60.0 mL/min/1.7 3 09/21/2025 10:45 AM [facility] Blood Line / Unknown 09/21/2025 9: 34 AM EST 09/21/2025 10:17 AM EST [facility] - 09/21/2025 10:45 AM EST GFR [...] does not include race as a factor Denise Pandey APRN LAB BLOOD ORDERABLES Final Result [facility]
[address] [id number], * (ABNORMAL) CBC (No Diff) (09/21/2025 9:34 AM EST) WBC 8.32 3.40 - 10.80 10*3/mm3 09/21/2025 10:23 AM EST [facility] RBC 3.83 3.77 - 5.28 10*6/mm3 09/21/2025 10:23 AM [facility] Hemoglobin 11.7(L) 12.0 - 15.9 g/dL 09/21/2025 10:23 AM [facility] Hematocrit 36.1 34.0 - 46.6 % 09/21/2025 10:23 AM [facility] MCV 94.3 79.0 - 97.0 fL 09/21/2025 10:23 AM [facility] MCH 30.5 26.6 - 33.0 pg 09/21/2025 10:23 AM [facility] MCHC 32.4 31.5 - 35.7 g/dL 09/21/2025 10:23 AM [facility] RDW 13.8 12.3 - 15.4 % 09/21/2025 10:23 AM [facility] RDW-SD 47.8 37.0 - 54.0 fl 09/21/2025 10:23 AM [facility] MPV 11.8 6.0 - 12.0 fL 09/21/2025 10:23 AM [facility] Platelets 189 140 - 450 10*3/mm3 09/21/2025 10:23 AM [facility] Blood Line / Unknown 09/21/2025 9: 34 AM EST 09/21/2025 10:17 AM EST us Denise Pandey PEDIATRIC PHYSIATRIST LAB BLOOD ORDERABLES Final Result [facility]
[address] [id number], documented in this encounter Visit Diagnoses Diagnosis Precordial pain- Primary Coronary artery disease involving platinum coronary artery of platinum heart without angina pectoris Coronary artery disease involving platinum coronary artery of platinum heart without angina pectoris Precordial pain documented in this encounter Admitting Diagnoses Diagnosis Coronary artery disease involving platinum coronary artery of platinum heart without angina pectoris Precordial pain documented [...] 1122 1122 (Given - Provid er: Joanna Rela RN) heparin (porcine) injection (CANCELED) Code / Trauma / Sedation Medication, Starting on Mary 09/21/25 at 1124 1124 (Given - Provid er: Justin Moses MD)1133 (Given - Provider: Joanna Real RN) iodixanol (VISIPAQUE) 320 MG/ML injection (CANCELED) Code [...] 5-8 documented in this encounter Care Teams Parking Lot Laborer Relationship Specialty Start Date End Date Marly Kumar APRN [address] [place] [address] PCP - General Family Medicine 07/06/24 documented as of this encounter
--- OUTSIDE RECORDS SUMMARY | 2025-09-21 10:52 | XMS_ITS | Encounter Summary ---
[facility] Address [address] [place] [address] Care Team Providers Care Microsoft Application Developer Name Role Phone Marly Kumar SHAKIRA Primary Care Provider + [phone] Reason for Visit * Auth/Cert Specialty Diagnoses / Procedures Referred By Contac t Referred To Contact Diagnoses Coronary artery disease involving mescalero apache coronary artery of mescalero apache heart without angina pectoris Precordial pain Procedures MO CATH PLMT L HRT & ARTS W/NJX & ANGIO IMG S&I Left Heart Cath Referral ID Status Reason Start Date Expiration Date Visits Re quested Visits Authorized [id number] 1 1 Encounter Details Date Type Department Care Team (Late st Contact Info) Description 09/21/2025 10:52 AM EST - 09/21/2025 11:52 AM EST Surgery [facility] WR[facility] [address] [place] [id number] Justin Moses MD [address] [facility] [address] [place] [id number] Left Heart Cath - Right radial access [81731 (CPT )] Social History Tobacco Use Types [...] Author AUDIT-C Score 0 09/21/2025 9:30 AM EST Shelley Huerta RN Q1: How often do you have a drink containing alcohol? Never 09/21/2025 9:30 AM EST Shelley Valente R N Q2: How many drinks containing alcohol do you have on a typical day when you are drinking? Patient does not drink 09/21/2025 9:30 AM EST Shelley Valente RN Q3: How often do you have [...] 09/21/2025 9:30 AM Shelley Palacios RN * [place] Suicide Severity Rating Scale (Screener/Recent Self-Report) Question Answer Date of Assessment Author 6. Suicidal Behavior (Lifetime) No 9:30 AM Shelley Palacios RN documented as of this encounter Discharge Instructions * Attachments The following attachments cannot be sent through Care Everywhere. * Coronary Angiogram (Bhutanese) * Coronary Angiogram Care After (Bhutanese) * Radial Site Care (Bhutanese) * Moderate Conscious Sedation Adult Care After (Bhutanese) documented in this encounter Medications at Time [...] doses 25 tablet 5 02/01/2025 nystatin (MYCOSTATIN) 342186 UNIT/GM cream Apply 2 applications topically daily [...] to the ER and was hospitalized at [facility] on 08/24/2025, pt had right facial [...] Disp: 25 tablet, Rfl: 5 nystatin (MYCOSTATIN) 211588 UNIT/GM cream, Apply 2 applications topically daily [...] in situ [Z95.810] Coronary artery disease involving mescalero apache coronary artery of mescalero apache heart without angina pectoris Orders: Basic Metabolic Panel; Future Case Request Alodize Machine Operator: Left Heart Cath with Cors and SVG's, Left Heart Cath CBC Auto Differential; Future Hypertension, essential Mixed hyperlipidemia Precordial pain Orders: Basic Metabolic Panel; Future Case Request Alodize Machine Operator: Left Heart Cath with Cors and SVG's, [...] pain has worsened will move forward with [facility]. To have CBC and BMP prior. [...] worsened since last visit. - Order for [facility] 6. Lower Extremity Edema - Continue Lasix 40mg daily Recommendations: ER if symptoms increase, Report if any new/changing symptoms immediately, Limit salt, Elevate legs, Compression hose, and Limit caffeine Follow Up Return in about 6 weeks (around 10/23/2025) for Follow up after heart cath. Nereida Ambrose APRN Cardiology and Sleep [facility] 09/11/2025 Please note that this explicitly excludes time spent on other separate billable services such as performing procedures or test interpretation, when applicable. documented in this encounter Consult Notes * Hafsa Stover RN - 09/21/2025 12:34 PM ESTAssociated Order(s): IP CONSULT TO [employer] Diabetes Education Patient Name: Chaparrita Perkins Date [...] Description 10/31/2025 9:00 AM EST Office Visit [facility] CARDIOLOGY [address] [place] [address] Nereida Ambrose APRN [address] [place] [address] 11/13/2025 2:30 PM EST Office Visit [facility] NEUROLOGY [address] [facility] [address] [place] [address] Camille Spann APRN [address] [facility] [address] [address] 02/09/2026 2:15 PM EDT Office Visit [facility] [address] [place] [address] [address] [place] [address] Shahla Troy PALienC [address] [facility] [address] [place], [place] [id number] documented as of this encounter Procedures Procedure Name Priority Date/Time Associated Diagnosis Comments SCANNED - TELEMETRY 09/21/2025 1 1:59 AM EST CARDIAC CATHETERIZATION Routine 09/21/20 25 11:48 AM EST Coronary artery disease involving mescalero apache coronary artery of mescalero apache heart without angina pectoris Precordial pain SCANNED [...] * Telemetry Scan (09/21/2025 11:59 AM EST) [facility] ORDERABLES Final Result * LEFT [...] the right radial artery using standard 6 Barbadian catheters. Borderline lesion in the RCA. Additional [...] * Telemetry Scan (09/21/2025 9:52 AM EST) [facility] ECG ORDERABLES Final Result * Telemetry Scan (09/21/2025 9:52 AM EST) [facility] ECG ORDERABLES Final Result * (ABNORMAL) Hemoglobin A1c (09/21/2025 9:34 AM EST) Hemoglobin A1C 5.82(H) 4.80 - 5.60 % 09/21/2025 11:09 AM EST [facility] Blood Line / Unknown 09/21/2025 9: 34 AM EST 09/21/2025 10:17 AM EST Narrative [facility] - 09/21/2025 11:09 AM EST Hemoglobin A1C Ranges: Increased Risk for Diabetes 5.7% to 6.4% Diabetes >= 6.5% Diabetic Goal < 7.0% Denise Pandey APRN LAB BLOOD ORDERABLES Final Result [facility]
[address] [place] [address], * Lipid Panel (09/21/2025 9:34 AM EST) Total Cholesterol 94 0 - 200 mg/dL 09/21/2025 10:45 AM EST [facility] Triglycerides 77 0 - 150 mg/dL 09/21/2025 10:45 AM EST [facility] HDL Cholesterol 40 40 - 60 mg/dL 09/21/2025 10:45 AM EST [facility] LDL Cholesterol 38 0 - 100 mg/dL 09/21/2025 10:45 AM EST [facility] VLDL Cholesterol 16 5 - 40 mg/dL 09/21/2025 10:45 AM EST [facility] LDL/HDL Ratio 0.97 09/21/2025 10:45 AM EST [facility] Blood Line / Unknown 09/21/2025 9: 34 AM EST 09/21/2025 10:17 AM EST [facility]ORATORY - 09/21/2025 10:45 AM EST Cholesterol [...] calculated using the NIH LDL-C calculation. Denise Johnsonroosevelt ROSENBERG LAB BLOOD ORDERABLES Final Result [facility]
[address] [place] [id number], * Comprehensive Metabolic Panel (09/21/2025 9:34 AM EST) [facility] Glucose 89 65 - 99 mg/dL 09/21/2025 10:45 AM EST [facility] BUN 15.5 8.0 - 23.0 mg/dL 09/21/2025 10:45 AM EST [facility] Creatinine 0.82 0.57 - 1.00 mg/dL 09/21/2025 10:45 AM EST [facility] Sodium 138 136 - 145 mmol/L 09/21/2025 10:45 AM EST [facility] Potassium 4.4 3.5 - 5.2 mmol/L 09/21/2025 10:45 AM EST [facility] Chloride 106 98 - 107 mmol/L 09/21/2025 10:45 AM EST [facility] CO2 22.9 22.0 - 29.0 mmol/L 09/21/2025 10:45 AM EST [facility] Calcium 9.6 8.6 - 10.5 mg/dL 09/21/2025 10:45 AM EST [facility] Total Protein 6.6 6.0 - 8.5 g/dL 09/21/2025 10:45 AM EST [facility] Albumin 3.6 3.5 - 5.2 g/dL 09/21/2025 10:45 AM EST [facility] ALT (SGPT) 20 1 - 33 U/L 09/21/2025 10:45 AM EST [facility] AST (SGOT) 28 1 - 32 U/L 09/21/2025 10:45 AM EST [facility] Alkaline Phosphatase 58 39 - 117 U/L 09/21/2025 10:45 AM EST [facility] Total Bilirubin 0.5 0.0 - 1.2 mg/dL 09/21/2025 10:45 AM EST [facility] Globulin 3.0 gm/dL 09/21/2025 10:45 AM EST [facility] Comment:Calculated Result A/G Ratio 1.2 g/dL 09/21/2025 10:45 AM EST [facility] BUN/Creatinine Ratio 18.9 7.0 - 25.0 09/21/2025 10:45 AM EST [facility] Anion Gap 9.1 5.0 - 15.0 mmol/L 09/21/2025 10:45 AM EST [facility] eGFR 76.1 >60.0 mL/min/1.7 3 09/21/2025 10:45 AM EST [facility] Blood Line / Unknown 09/21/2025 9: 34 AM EST 09/21/2025 10:17 AM EST [facility] - 09/21/2025 10:45 AM EST GFR [...] Pandey APRN LAB BLOOD ORDERABLES Final Result [facility]
[address] [place] [address], * (ABNORMAL) CBC (No Diff) (09/21/2025 9:34 AM EST) WBC 8.32 3.40 - 10.80 10*3/mm3 09/21/2025 10:23 AM EST [facility] RBC 3.83 3.77 - 5.28 10*6/mm3 09/21/2025 10:23 AM EST [facility] Hemoglobin 11.7(L) 12.0 - 15.9 g/dL 09/21/2025 10:23 AM EST [facility] Hematocrit 36.1 34.0 - 46.6 % 09/21/2025 10:23 AM EST [facility] MCV 94.3 79.0 - 97.0 fL 09/21/2025 10:23 AM EST [facility] MCH 30.5 26.6 - 33.0 pg 09/21/2025 10:23 AM EST [facility] MCHC 32.4 31.5 - 35.7 g/dL 09/21/2025 10:23 AM [facility] RDW 13.8 12.3 - 15.4 % 09/21/2025 10:23 AM [facility] RDW-SD 47.8 37.0 - 54.0 fl 09/21/2025 10:23 AM [facility] MPV 11.8 6.0 - 12.0 fL 09/21/2025 10:23 AM [facility] Platelets 189 140 - 450 10*3/mm3 09/21/2025 10:23 AM [facility] Blood Line / Unknown 09/21/2025 9: 34 AM EST 09/21/2025 10:17 AM EST Denise Pandey APRN LAB BLOOD ORDERABLES Final Result [facility]
[address] [place] [address], documented in this encounter Visit Diagnoses Diagnosis Precordial pain- Primary Coronary artery disease involving mescalero apache coronary artery of mescal[place] apache heart without angina pectoris Coronary artery disease involving [place] apache coronary artery of [place] apache heart without angina pectoris Precordial pain documented in this encounter Admitting Diagnoses Diagnosis Coronary artery disease involving mescal[place] apache coronary artery of [place] apache heart without angina pectoris Precordial pain documented [...] 5-8 documented in this encounter Care Teams Microsoft Application Developer Relationship Specialty Start Date End Date Marly Kumar APRN [address] [place] [address] PCP - General Family Medicine 07/06/24 documented as of this encounter
--- OUTSIDE RECORDS SUMMARY | 2025-10-10 14:15 | XMS_ITS | Encounter Summary ---
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 Shahla Troy PA-C [address] [address] Phone: tel: fax: [facility] GASTROENTEROLOGY [address] [place] [phone] Phone: tel: fax: Referral ID Status Reason Start Date Expiration Date Visits Requested Visits Authorized [id number] Authorized Specialty Services Required 10/10/2025 01/09/2027 1 1 Reason for Visit * Reason Comments Difficulty Swallowing Encounter Details Date Type Department Care Team (Late Contact Info) Description 10/10/2025 2:15 PM EST Office Visit [facility] GASTRO[facility] [address] [place] [phone] Shahla Troy PA-C [address] [address] Gastroesophageal reflux disease without esophagitis (Primary Dx); [...] time was about 15 years ago in [facility] but unsure of the who the provider [...] She had been admitted to hospital in [place], [place] in April 2025 for altered mental status.She reports they believed it was related to her hx of seizures. Pt did have a CTAP w/ contrast at that time completed at [facility] over the summer which noted chronic anterior [...] radial access; Surgeon: Justin Moses MD; Location: [facility]ATH [facility]; Service: Cardiovascular; Laterality: N/A; [...] Disp: 25 tablet, Rfl: 5 nystatin (MYCOSTATIN) [id number] UNIT/GM cream, Apply 2 applications topically daily [...] obtain prior colonoscopy and EGD records from [facility] in [place], [place] - follow up in clinic in [...] opinion of the practitioner. Shahla Troy PA-C [facility] documented in this encounter Plan of Treatment Upcoming Encounters Date Type Department Care Team (Late st Contact Info) Description 10/31/2025 9:00 AM EST Office Visit [facility] CARDIOLOGY [address] [phone] Nereida Ambrose APRN [address] [place] [address] 11/13/2025 2:30 PM EST Office Visit [facility] NEUROLOGY [address] [place] [address] [address] [place] [address] Camille Spann APRN [address] [facility] [address] [address] 02/09/2026 2:15 PM EDT Office Visit [facility] GASTR[facility]Y [address] [facility] [address] [place] [address] Shahla Troy PA-C [address] [facility] [address] [place], [place] [id number] Scheduled Referrals Name Type Priority Associated Diagnoses [...] artery documented in this encounter Care Teams Switchboard Operator Helper Relationship Specialty Start Date End Date Marly Kumar APRN [address] [place] [phone] PCP - General Family Medicine 07/06/24 documented as of this encounter
--- OUTSIDE RECORDS SUMMARY | 2025-10-11 10:00 | XMS_ITS | Encounter Summary ---
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 Consult to discuss seizure activity on Jul 2025. The seizure lasted 3-4 minutes. The patient did not go to the hospital. She has not had anymore since Jul 2025. The patient also had a light stroke Sep 2025. Encounter Details Date Type Department Care Team (Late st Contact Info) Description 10/11/2025 10:00 AM EST Office Visit [facility] Neurology [address] [place] [address] [address] [place] [address] Rad Duong MD [address] [facility] [address] [place] [address] Localization-relate d epilepsy with complex partial seizures with intractable epilepsy (HCC) (Primary Dx); Nonepileptic episode (HCC) Social History Tobacco Use Types Packs/Day Years [...] Sign Reading Time Taken Comments Blood Pressure 165/78 10/11/2025 9:55 AM EST Pulse 62 10/11/2025 9:55 AM EST Temperature 36.7 C (98.1 F) 10/11/2025 9:55 AM EST Respiratory Rate - - Oxygen Saturation 98% 10/11/2025 9:55 AM EST Inhaled Oxygen Concentration - - Weight 74.4 kg (164 lb) 10/11/2025 9:55 AM EST Height 152.4 cm (5') 10/11/2025 9:55 AM EST Body Mass Index 32.03 10/11/2025 9:55 AM EST documented in this encounter Functional Status * BP Answer Date of Assessment Author 165/78 10/11/2025 9:55 AM Tiarra Blancas CMA * Temp Answer Date of Assessment Author 98.1 10/11/2025 9:55 AM Tiarra Blancas CMA * Temp src Answer Date of Assessment Author Tympanic 10/11/2025 9:55 AM Tiarra Blancas CMA * Pulse Answer Date of Assessment Author 62 10/11/2025 9:55 AM Tiarra Blancas STARCH FACTORY LABORER * SpO2 Answer Date of Assessment Author 98 10/11/2025 9:55 AM YARN SPINNER Celestina, D eborah L, STARCH FACTORY LABORER * Height Answer Date of Assessment Author 60 10/11/2025 9:55 AM Tiarra Blancash L, STARCH FACTORY LABORER * Weight Answer Date of Assessment Author 2624 10/11/2025 9:55 AM Tiarra Blancash L, STARCH FACTORY LABORER * Tidal Volume Answer Date of Assessment Author 270 10/11/2025 9:55 AM Tiarra Blancasorah L, STARCH FACTORY LABORER * Shock Index Answer Date of Assessment Author 0.38 10/11/2025 9:55 AM Tiarra Blancasorah L, STARCH FACTORY LABORER * BMI (Calculated) Answer Date of Assessment Author 32 10/11/2025 9:55 AM Tiarra Blancasorah L, STARCH FACTORY LABORER * BP Answer Date of Assessment Author 165/78 10/11/2025 9:55 AM Tiarra Blancash L, STARCH FACTORY LABORER * Pulse Answer Date of Assessment Author 62 10/11/2025 9:55 AM Tiarra Blancasorah L, STARCH FACTORY LABORER * SpO2 Answer Date of Assessment Author 98 10/11/2025 9:55 AM Tiarra Blancash L, STARCH FACTORY LABORER * BMI (Calculated) Answer Date of Assessment Author 32 10/11/2025 9:55 AM Tiarra Blancash L, STARCH FACTORY LABORER documented as of this encounter Mental Status * BP Answer Entry Date Author 165/78 10/11/2025 9:55 AM Tiarra Blancas L, STARCH FACTORY LABORER * Temp Answer Entry Date Author 98.1 10/11/2025 9:55 AM Tiarra Blancas L, STARCH FACTORY LABORER * Temp src Answer Entry Date Author Tympanic 10/11/2025 9:55 AM Tiarra Blancash L, STARCH FACTORY LABORER * Pulse Answer Entry Date Author 62 10/11/2025 9:55 AM Tiarra Blancasorah L, STARCH FACTORY LABORER * SpO2 Answer Entry Date Author 98 10/11/2025 9:55 AM Tiarra Blancas L, STARCH FACTORY LABORER * Height Answer Entry Date Author 60 10/11/2025 9:55 AM Tiarra Blancas L, STARCH FACTORY LABORER * Weight Answer Entry Date Author 2624 10/11/2025 9:55 AM Tiarra Blancas L, STARCH FACTORY LABORER * Tidal Volume Answer Entry Date Author 270 10/11/2025 9:55 AM Tiarra Blancas CMA * Shock Index Answer Entry Date Author 0.38 10/11/2025 9:55 AM Tiarra Blancas CMA * BMI (Calculated) Answer Entry Date Author 32 10/11/2025 9:55 AM Tiarra Blancas CMA documented in this encounter Progress Notes * Rad Duong MD - 10/11/2025 10:00 AM EST Subjective: Eloy Perkins is a 70 y.o. female. Chief Complaint Patient presents with Seizures Referred by Dr Garay. Consult to discuss seizure activity on Jul 2025. The seizure lasted 3-4 minutes. The patient did not go to the hospital. She has not had anymore since Jul 2025. The patient also had a light stroke Sep 2025. I have reviewed and/or updated the following: This is my first encounter with Ms. Perkins, referred for consultation by Dr. Garay. Today she came with her daughter who help with her history and description of spells. She reports a long history of seizures that may have started in infancy. She cannot however provide details regarding seizures in childhood. Her daughter who is with her today reports witnessing stereotypical events for over 10years. The patient has no preceding warning symptoms as she loses awareness at onset. Her daughter reports noticing twitching of her left lip, with the staring and unresponsiveness. At times, she mayhave twitching or tremor like shaking of both hands. Typically, events last less than 5 minutes, followed by a period of tiredness. She has had associated incontinence but not tongue biting. The frequency of episodes has varied. There was improvement after she was started on levetiracetam and substitution for divalproex. She has had no witnessed event in the last 3 months or so. She is often unaware of these events when they have occurred. Risk factors for epilepsy: Her was uncomplicated. She may have had seizures. She is unsure about febrile seizures. She denies a history of head trauma with loss of consciousness. Family history is reportedly negative for epilepsy. HPI Review of Systems Constitutional: Negative. HENT: Negative. Eyes: Negative. Respiratory: Negative. Cardiovascular: Negative. Gastrointestinal: Negative. Endocrine: Negative. Genitourinary: Negative. Musculoskeletal: Positive for joint swelling. Skin: Negative. Allergic/Immunologic: Negative. Neurological: Positive for seizures. Psychiatric/Behavioral: Positive for sleep disturbance. Objective: BP (!) 165/78 Pulse 62 Temp 98.1 ??F (36.7 ??C) (Tympanic) Ht 1.524 m (5') Wt 74.4 kg (164 lb) SpO2 98% BMI 32.03 kg/m?? Physical Exam Constitutional: She is positive for obesity. HENT: Head: Normocephalic. Eyes: Pupils are equal, round, and reactive to light. Lids are normal. Cardiovascular: Normal rate, regular rhythm, normal heart sounds and normal pulses. Pulmonary/Chest: Effort normal and breath sounds normal. Musculoskeletal: General: Normal range of motion. Cervical back: Neck supple. Neurological: She has normal strength. Reflex Scores: Tricep reflexes are 2+ on the right side and 2+ on the left side. Bicep reflexes are 2+ on the right side and 2+ on the left side. Brachioradialis reflexes are 2+ on the right side and 2+ on the left side. Patellar reflexes are 2+ on the right side and 2+ on the left side. Achilles reflexes are 2+ on the right side and 2+ on the left side. Psychiatric: Her speech is normal. Nursing note and vitals reviewed. Neurological Exam Mental Status Awake, alert and oriented to person, place and time. Recalls 3 of 3 objects immediately. At 5 minutes recalls 3 of 3 objects. Speech is normal. Language is fluent with no aphasia. Digit span was 7 forward and 4 backward. Cranial Nerves CN II: Visual acuity is normal. Visual aburto full to confrontation. CN III, IV, : Extraocular movements intact bilaterally. Normal lids and orbits bilaterally. Pupils equal round and reactive to light bilaterally. CN V: Facial sensation is normal. CN VII: Full and symmetric facial movement. CN VIII: Hearing is normal. CN IX, X: Palate elevates symmetrically CN XI: Shoulder shrug strength is normal. CN XII: Tongue midline without atrophy or fasciculations. Motor Normal muscle bulk throughout. Normal muscle tone. No abnormal involuntary movements. Strength is 5/5 throughout all four extremities. Reflexes Right Left Brachioradialis 2+ 2+ Biceps 2+ 2+ Triceps 2+ 2+ Patellar 2+ 2+ Achilles 2+ 2+ Coordination Right: Usnhqb-kz-cetf normal. Rapid alternating movement normal.Left: Hctgvt-ls-nllg normal. Rapid alternating movement normal. Gait Casual gait is normal including stance, stride, and arm swing. Tandem gait abnormality: She had difficulty with tandem walking. Romberg is absent. Assessment: Ms. Perkins has a long history of seizures that may have started in childhood. They are characterized by loss of awareness at onset, witnessed twitching of left lower facial muscles (lips), staring,unresponsiveness with or without tremulous shaking of the hands. The clinical features are most suggestive of a partial onset or focal seizures. It is not clear whether the reported tremulous shakingrepresents secondary generalization of her seizures. The description of tremulous shaking raises the possibility of a nonepileptic component or etiology. 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 She has recently been on a combination of divalproex and oxcarbazepine, with a recent switch to levetiracetam and substitution for divalproex because of an elevated ammonialevel. She has not had any recent witnessed seizure, but is often unaware of the occurrence of these events, and may therefore have persistent unrecognized or unwitnessed seizures. She may have had seizures as well as a febrile seizure, but details are not available. Her neurologic examination reveals no objective focal abnormality. Plan: I had a long discussion with Ms. Perkins in the presence of her daughter today. I went over the classification of seizures and epilepsy syndromes with her at length. I told her about the possibilityof partial or focal seizures with or without generalization. I went over possible causes of focal seizures with her. I also discussed with her the differential diagnosis of seizures in general, and her spells in particular. I mention the possibility of a nonepileptic component, and went over possible causes of nonepileptic spells with her at length. I reviewed her previous workup and records, including those records kindly forwarded by Dr. Garay. She has had an unremarkable MRI of the brain. She has also had a normal routine EEG study. I told her about limitations of routine EEG studies because of their short duration. I went over options with her and her daughter. She thinks she has done well over the past 3 months, with no known recurrence of seizures since the latest switch to levetiracetam. She is however unaware of seizures when the have occurred. I therefore recommended admission to the hospital for continuous video EEG monitoring on current doses of her antiseizure medications.She is in agreement with the plan, and we will schedule her accordingly. 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
--- OUTSIDE RECORDS SUMMARY | 2025-10-17 | XMS_ITS | Encounter Summary ---
Author Organization Healthcare Address [address] [place] [address] Care Team Providers Care Hollow Core Door Frame Assembler Name Role Phone Jessie Payne APRN Unavailable Marly Gomez APRN Primary Care Provider [phone] Encounter Details Date Type Department Care Team (Latest Contact Info) Description 10/17/2025 Hospital Encounter [facility] Breast [facility] [address] [phone] Encounter for other specified special examinations Social [...] drink first t zander in the morning (EYE-FOREST WORKER) to steady your nerves or to get [...] Description 11/23/2025 9:00 AM EST Appointment [place] [place] [address] [address] 11/23/2025 9:30 AM EST Appointment [place] [place] [address] [address] 11/23/2025 1:00 PM EST Appointment [place] [place] [address] [address] documented as of this encounter Procedures Procedure [...] documented as of this encounter Care Teams Hollow Core Door Frame Assembler Relationship Specialty Start Date End Date Marly Kumar APRN [address] [place] [address] PCP - General 06/09/25 Jessie Payne APRN 08/07/23 documented as of this encounter
--- OUTSIDE RECORDS SUMMARY | 2025-10-20 03:23 | XMS_ITS | Continuity of Care Document ---
Author Organization [facility] Phone Care Team Providers Care Ground Crewman Aircraft Support Name Role Phone BRAYDEN SOTOMAYOR Primary Attending BRAYDEN SOTOMAYOR Admitting BRAYDEN SOTOMAYOR Unavailable BRAYDEN SOTOMAOYR Primary Care ALLERGIES AND ADVERSE REACTIONS ALLERGIES AND ADVERSE REACTIONS Code System Allergy Substance Adverse Reaction Date Reaction (Severity) Comment Status Reported By Updated [place] [id number] SNOMED CT Penicillins Adverse reaction to substance desir active [id number] on August 16, 2025 7:33:51 [place] [id number] SNOMED CT Penicillins Adverse reaction to substance desir active [id number] on August 16, 2025 7:33:51 PM [place] [id number] SNOMED CT Sulfa Antibiotics Adverse reaction to substance desir active [id number] on August 16, 2025 7:33:[place] [address] RXNorm Fosamax Adverse reaction to substance unknown active [id number] on August 16, 2025 7:33:51 PM UT FAMILY HISTORY RELATION: Father Status: Cause of [...] Status: LIVING SNOMED-CT Diagnosis Age At Onset [id number] Malignant neoplastic disease RELATION: Brother Status: LIVING SNOMED-CT Diagnosis Age At Onset Information not available RELATION: Sister Status: Cause of : Malignant neoplastic disease Age at : 61 SNOMED-CT Diagnosis Age At Onset Information not available RELATION: Son Status: LIVING SNOMED-CT Diagnosis Age At Onset Information not available RELATION: Son Status: LIVING SNOMED-CT Diagnosis Age At Onset [id number] Malignant tumor of testis RELATION: Daughter Status: LIVING SNOMED-CT Diagnosis Age At Onset Information not available RELATION: Daughter Status: LIVING SNOMED-CT Diagnosis Age At Onset Information not available RESULTS Patient: DAISY Walker Date of : August 06 LABORATORY RESULTS Information is not available LABORATORY NARRATIVE RESULTS Information is not available RADIOLOGY RESULTS ORDER 100: SKYLER DIAG MAMMO W CAD RT (LOINC: [id number]) ORDER DATE: October 17, 2025 2:09:00 PM [facility] PERFORMING LAB: [address] [id number] Final Result Date: October 17, 2025 2:33:[address] [place] [address] Name: RENNY VILLA Exam Date: 10/17/2025 : 1955 Age 70 years Gender: F Physician: BRAYDEN SOTOMAYOR Facility: [facility] Facility HSV: Outpatient Exam: SKYLER DIAG MAMMO W CAD RT Exam: 1.Right Diagnostic Mammogram Clinical indication: Right breast calcifications Comparison: Exams to 2023 TECHNIQUE: Diagnostic Right 2D mammography and 3D (tomosynthesis) imaging were performed. BREAST DENSITY:There are scattered areas of fibroglandular density. FINDINGS: There is a stable coarse calcification in the upper outer right breast. Posterior to this calcification there is a new 8 mm grouping of coarse heterogeneous calcifications. IMPRESSION: Stable benign upper outer coarse calcification that was under follow-up. There is a new 8 mm grouping of coarse heterogeneous calcifications seen posterior to this. Recommendation: Right breast detected biopsy recommended The results of this report will be communicated to the patient by letter in layman's terms. ACR BI-RADS:4 - Suspicious abnormality Mammography does not detect approximately 10-15% of [...] correlation. Electronically signed by: Truong Berger MD 10/17/2025 09:45 AM [facility] Dictated By: Truong Berger Transcribed By: Transcribed On: 10/17/2025 9:33 AM Electronically signed by: Truong Berger 10/17/2025 Thank you for referring RENNY VILLA to [facility]. Legally authenticated by JUAN DIEGO BROWN MD 2025-10-17 09:33:00 PATHOLOGY NARRATIVE RESULTS Information is not available MICROBIOLOGY RESULTS No Micro Labs/Results Exist for Patient BLOOD ADMIN RESULTS Information is not available MEDICATIONS HOME MEDICATIONS Status RXNORM NDC Medication Dose Route Frequency Dates Comments Reported By Updated By Drug Treatment Unknown DISCHARGE MEDICATIONS Status RXNORM NDC Medication Dose Route Frequency Dates Dis pense Data Comments Physician Updated By No Discharge Medication Info rmation Available INPATIENT MEDICATIONS Status RXNORM NDC Medication Dose Route Frequency Rat e Quantity Dates Indication Dispense Data Comments Physician Updated By No Inpatient Medication Info rmation Available SOCIAL HISTORY SOCIAL HISTORY - Smoking Status SNOMED-CT Social History Element Description Effective Dates Offered Cessation Comment Updated By [id number] Historical Tobacco smoking status Never Smoked [id number] on August 16, 2025 7:34:14 PM [facility] [id number] Historical Tobacco smoking status Former Smoker [id number] on February 20, 2025 11:54:11 PM [facility] SOCIAL HISTORY - Gender Sex: Female SOCIAL HISTORY - Status : status i nformation is not available Intention in Next Year: intention information is not available SOCIAL HISTORY - Assessments Code System Description Status Date Value of Assessment Updated By Comment Assessment Information is no t available SOCIAL HISTORY - [place] Affiliation [place] information is not av ailable SOCIAL HISTORY - Legal Sex Legal Sex : Female (finding) SOCIAL HISTORY - Sexual Behavior Sexual Orientation Gender Identity SNOMED-CT Description SNO MED -CT Description Activity Level No of Partners Partner Type UpdatedBy Information is not available SOCIAL HISTORY - Occupation Occupation information is no t available ENCOUNTERS ENCOUNTER INFORMATION Reason for Visit MAMMOGRAM Admission October 17, 2025 1:58:[address] [place] [address] Discharge October 17, 2025 7:58:00 PM UTC DISCHARGED TO HOME OR SELF CARE ENCOUNTER DIAGNOSES Notes information is not gabino ilable. Code System Diagnosis Onset Date Diagnosis information is not available. ABSTRACT DIAGNOSES Code System Diagnosis Updated By Abatement Date R92.8 ICD10 OTHER ABNORMAL A ND INCONCLUSIVE FINDINGS ON DIAGNOSTIC IMAGING OF BREAST [id number] on October 20, 2025 8:22:46 AM UTC R92.8 ICD10 OTHER ABNORMAL A ND INCONCLUSIVE FINDINGS ON DIAGNOSTIC IMAGING OF BREAST [id number] on October 20, 2025 8:22:48 AM UT R92.1 ICD10 MAMMOGRAPHIC HU CIFICATION FOUND ON DIAGNOSTIC IMAGING OF BREAST [id number] on October 20, 2025 8:22:50 AM [place] CARE TEAM Care Ground Crewman Aircraft Support Role BRAYDEN SOTOMAYOR Primary Attending BRAYDEN SOTOMAYOR Admitting BRAYDEN SOTOMAYOR Referring BRAYDEN SOTOMAYOR Primary Care CARE TEAM CARE accredited legal secretary Role on Team Location Telecom Status Start Date End Jai e Updated By BRAN CRONIN APRN PCP [address] [place], [address] normal October 02, 2025 9:03:57 PM UTC October 17, 2025 7:58:00 PM UTC [id number] on October 02, 2025 9:03:57 PM UTC BRAN CRONIN APRN Referring [address], [place], [address] normal October 02, 2025 9:03:57 PM UTC October 17, 2025 7:58:00 PM UTC [id number] on October 02, 2025 9:03:57 PM UTC BRAN CRONIN APRN Attending [address] [place], [address] normal October 02, 2025 9:03:56 PM UTC October 17, 2025 7:58:00 PM UTC [id number] on October 02, 2025 9:03:57 PM UTC BRAN CRONIN APRN Admitting [address], [place], [address] normal October 02, 2025 9:03:56 PM UTC October 17, 2025 7:58:00 PM UTC [id number] on October 02, 2025 9:03:57 PM UTC INSURANCE PROVIDERS INSURANCE PROVIDER Coverage Status - Effective Date Coverage Type Payor Plan Order Relationship To Subscriber Insurance Plan No Insurance Plan 2024-11-02 M PRIMARY [id number] MEDICARE A B 2024-11-02 W SECONDARY 18 [id number] MEDICAID [place]
--- OUTSIDE RECORDS SUMMARY | 2025-10-24 13:02 | XMS_ITS | Encounter Summary ---
Author Organization [employer] ([place], [place], [place], [place], [place]) Address [address] [place] [address] Care Team Providers Care Complaint Clerk Name Role Phone Marly Kumar RAKE OPERATOR Primary Care Provider [phone] Encounter Details Date Type Department Care Team (Late st Contact Info) Description 07/26/2020 Transcribed Document [facility] [place] [place] Family [place] [address] ProviderMiya MD [address] [place] [address] Social History Tobacco Use Types Packs/Day [...] On: 07/26/2020 11:36 EDT by Jerry Hewitt CLOTH BALE HEADER LEAD Meds to Bed Enrollment Patient Enrollment Decision: : Yes/enroll in meds to bed program Jerry Hewitt CLOTH BALE HEADER LEAD - 07/26/2020 14:08 EDT documented in this encounter Plan of Treatment Not on file documented as of this encounter Visit Diagnoses Not on filedocumented in this encounter Care Teams Complaint Clerk Relationship Specialty Start Date End Date Marly Kumar, DUNG [address] [place] [address] PCP - General Nurse Practitioner 09/22/24 documented as of this encounter
--- OUTSIDE RECORDS SUMMARY | 2025-10-24 13:02 | XMS_ITS | Encounter Summary ---
Author Organization [employer] ([place], [place], [place], [place], [place]) Address [address] [place] [address] Care Team Providers Care Sheeting Puller Name Role Phone Marly Kumar SUPERVISOR MICROFILM DUPLICATING UNIT Primary Care Provider [phone] Encounter Details Date Type Department Care Team (Late st Contact Info) Description 07/27/2020 Transcribed Document [facility] [place] [facility] [place] [address] ProviderMiya MD [address] [place] [address] Social History Tobacco Use Types Packs/Day [...] On: 07/27/2020 14:25 EDT by EDISON FONTANEZ, RN-Hydroelectric Plant Mechanical EngineerCleaning Validation Consultant Progress Note Discharge Arrangements : Patient [...] Attend Multidisciplinary Rounds? : No EDISON FONTANEZ, RN-Hydroelectric Plant Mechanical Engineer - 07/27/2020 14:25 EDT Narrative Progress Note Narrative Progress Note : Continues on EEG monitoring. Updates faxed to Justin Perkins. Historical Progress Note : On continuous EEG monitoring. EDISON FONTANEZ RN-Hydroelectric Plant Mechanical Engineer - 07/26/20 16:04:13 EDISON FONTANEZ RN-Hydroelectric Plant Mechanical Engineer - 07/27/2020 14:25 EDT documented in this encounter Plan of Treatment Not on file documented as of this encounter Visit Diagnoses Not on filedocumented in this encounter Care Teams Sheeting Puller Relationship Specialty Start Date End Date Marly Kumar NP [address] [place] [address] PCP - General Nurse Practitioner 09/22/24 documented as of this encounter
--- OUTSIDE RECORDS SUMMARY | 2025-10-24 13:02 | XMS_ITS | Encounter Summary ---
Author Organization [facility] Address [address] [place] [address] Care Team Providers Care Weight Yardage Checker Name Role Phone Marly Kumar SHAKIRA Primary Care Provider [phone] Encounter Details Date Type Department Care Team (Latest Contact Info) Description 09/21/2025 Travel Social History Tobacco Use Types Packs/Day [...] Description 10/31/2025 9:00 AM EST Office Visit [facility] CARDIOLOGY [address] [place] [address] Nereida Ambrose APRN [address] [place] [address] 11/13/2025 2:30 PM EST Office Visit [facility] NEUROLOGY [address] [facility] [address] [place], [place] [id number] Camille Spann APRN [address] [facility] [address] [place] [address] 02/09/2026 2:15 PM EDT Office Visit [facility] GASTROENTEROLOGY [address] [facility] [address] [place] [address] Shahla Troy PALienC [address] [facility] [address] [place], [place] [address] documented as of this encounter Visit Diagnoses Not on filedocumented in this encounter Care Teams Weight Yardage Checker Relationship Specialty Start Date End Date Marly Kumar APRN [address] [place], [place] [id number] PCP - General Family Medicine 07/06/24 documented as of this encounter
--- OUTSIDE RECORDS SUMMARY | 2025-10-24 13:02 | XMS_ITS | Encounter Summary ---
Author Organization [employer] ([place], [place], [place], [place], [place]) Address [address] [place] [address] Care Team Providers Care Oven Roaster Name Role Phone Marly Kumar PLASTER WHITTLER Primary Care Provider Encounter Details Date Type Department Care Team (Late st Contact Info) Description 07/26/2020 Transcribed Document [facility] Family Medicine [facility] [place] [address] ProviderMiya MD [address] [place] [address] Social History Tobacco Use Types Packs/Day [...] the upper and lower extremities. COORDINATION: Normal [id number]. IMPRESSION: Ms. Perkins has a long history [...] mg IV for repetitive or prolonged seizures. /[id number] Yadi Duong MD TAF/AQ / TAF / MODL Electronically signed by Interface, [facility] Conversion Shop And Alteration Tailor Cerner at 02/19/2023 6:42 PM CDT documented in this encounter Plan of Treatment Not on file documented as of this encounter Visit Diagnoses Not on filedocumented in this encounter Care Teams Oven Roaster Relationship Specialty Start Date End Date Marly Kumar, DUNG [address] [place] [address] PCP - General Nurse Practitioner 09/22/24 documented as of this encounter
--- OUTSIDE RECORDS SUMMARY | 2025-10-24 13:02 | XMS_ITS | Encounter Summary ---
Author Organization [facility] Address [address] [place] [address] Care Team Providers Care Automobile Racer Name Role Phone Marly Kumar SHAKIRA Primary Care Provider [phone] Reason for Visit * Reason Onset Date Comments Marie Hudson MA- CALL BACK 09/25/2025 Encounter Details Date Type Department Care Team (Late st Contact Info) Description 09/25/2025 Telephone [facility] CARDIOLOGY [address] [place] [address] Marie Hudson MA Gilvin, Jennifer, MA- CALL BACK Social History Tobacco Use Types Packs/Day Years [...] Telephone Encounter - Tona Luciano MA - 09/26/2025 1:08 PM EST Called and spoke to patient's daughter to let her know we have no documentation on patient startinga medication for 5 days. She understood and will call Dr. Moses's office to check with them. * Telephone Encounter - Bess Peña RegSched Rep - 09/26/2025 12:32 PM EST Caller: Leeanne Perkins Relationship: Emergency Contact Best call back number: [phone] What is the best time to reach you: ANY What was the call regarding: PT HAD HEART CATH DONE, CALLED US ON 09/25 TO DISCUSS NEW MEDS PT IS TO BE TAKING FOR 5 DAYS. PT JEWEL BIT CONFUSED ON WHERE THE MEDS CAME FROM. PLEASE ADVISE IF ANY NEW MEDS HAVE BEEN RX IN THIS OFFICE. CALLER IS NOT SURE WHO THE IN YARELY WAS THAT DID THIS PROCEDURE, CALLER IS NOT WITH PT. Is it okay if the provider responds through MyChart: CALL * Telephone Encounter - Marie Hudson MA - 09/25/2025 12:19 PM EST Pt's daughter, Leeanne, on verbal, called today. She wanted to know if this office put the pt onany new meds. According to the chart we have not started pt on anything new. Leeanne verbalized understanding. documented in this encounter Plan of Treatment Upcoming Encounters Date Type Department Care Team (Late st Contact Info) Description 10/31/2025 9:00 AM EST Office Visit [facility] CARDIOLOGY [address] [place] [phone] Nereida Ambrose, TYPESETTERS PRINTER [address] [place] [address] 11/13/2025 2:30 PM EST Office Visit [facility] NEUROLOGY [address] [facility] [address] [place], [place] [phone] Camille Spann, TYPESETTERS PRINTER [address] [facility] [address] [place], [place] [address] 02/09/2026 2:15 PM EDT Office Visit [facility] GASTROENTEROLOGY [address] [facility] [address] [place] [address] Shahla Troy PAMireille [address] [facility] [address] [place], [place] [address] documented as of this encounter Visit Diagnoses Not on filedocumented in this encounter Care Teams Automobile Racer Relationship Specialty Start Date End Date Marly Kumar, TYPESETTERS PRINTER [address] [place] [address] PCP - General Family Medicine 07/06/24 documented as of this encounter
--- OUTSIDE RECORDS SUMMARY | 2025-10-24 13:02 | XMS_ITS | Encounter Summary ---
Author Organization [employer] ([place], [place], [place], [place], [place]) Address [address] [place] [address] Care Team Providers Care Gas Regulator Repairer Helper Name Role Phone Marly Kumar AEROSPACE MEDICINE PHYSICIAN Primary Care Provider [phone] Encounter Details Date Type Department Care Team (Late st Contact Info) Description 07/27/2020 Transcribed Document [facility] [place] Family [place] [facility] [place] [address] ProviderMiya MD [address] [place] [address] Social History Tobacco Use Types Packs/Day [...] Insurance 1 Health Plan: MEDICARE Policy Number: [id number] Authorization Number: Insurance 2 Health Plan: MEDICAID [place] Policy Number: [id number] Authorization Number: Insurance Primary Name : MEDICARE Policy Number: [id number] Authorized Service Begin Date-Primary : 07/26/2020 EDT Historical Authorization Comments-Primary : No Authorization Comments Found DRISS DEL REAL RN - 07/27/2020 12:35 EDT documented in this encounter Plan of Treatment Not on file documented as of this encounter Visit Diagnoses Not on filedocumented in this encounter Care Teams Gas Regulator Repairer Helper Relationship Specialty Start Date End Date Marly Kumar, DUNG [address] [place] [address] PCP - General Nurse Practitioner 09/22/24 documented as of this encounter
--- OUTSIDE RECORDS SUMMARY | 2025-10-24 13:02 | XMS_ITS | Encounter Summary ---
Author Organization [employer] ([place], [place], [place], [place], [place]) Address [address] [place] [address] Care Team Providers Care Human Resources Operations Director Name Role Phone Marly Kumar LENS POLISHER Primary Care Provider [phone] Encounter Details Date Type Department Care Team (Late st Contact Info) Description 07/26/2020 Transcribed Document [facility] [place] Family Medicine [facility] [place] [address] ProviderMiya MD [address] [place] [address] Social History Tobacco Use Types Packs/Day [...] Services : Nursing, Occupational therapy, Physical Therapy, rolfer, Respiratory Therapy, Suction Dredge Dumping Supervisor Courtney Kearns RN - 07/26/2020 16:24 EDT General Info Arrived From : intermodal owner operator truck driver care [facility] Mode of Arrival on Unit : Wheelchair Patient Arrival Date/Time : 07/26/2020 12:00 EDT Legal Guardian : Care provider Legal Guardian : No Support Person/Patient Seafood And Service Meat Manager : No Support Person/Pt Rep Name : Marie Perkins [phone] Want Family/Rep/Phys Notified of Admit : No Emergency Contact #1 : Mckenna Mata Emergency Contact #1 Emergency Contact #1 Relationship : daughter Emergency Contact #2 : n/a Emergency Contact #2 Phone Number : n/a Emergency Contact #2 Relationship : n/a Information Obtained From : Medical Record Primary Language : [place] Preferred Communication Mode : Verbal Communication Barrier : None Cardiovascular Rn Needed : No Objects to Sharing Info [...] Level : 46 or > High Risk [place] Fall Interventions : Adequate lighting, Bed in [...] Source : Stated Height Entry Format : [place] Height, Feet : 4 ft(Converted to: 122 cm, 48 Inch) Height, Inches : 11 Inch(Converted to: 0 ft 11 Inch, 27.94 cm) Clinical Height : 149.86 cm Weight Source : Stated [place] Body Weight : 43 kg Corutney Kearns RN - 07/26/2020 16:24 EDT Estimated Weight Type of Weight Measurement Est : [place] Weight, est lb : 245 lb(Converted to: [...] Assessment : Pt transferred from SNF, LTC, [facility], or rehab hospital Active Surveillance Screen [...] Courtney Kearns RN - 07/26/2020 16:24 EDT [place] Suicide Severity Rating Scale (C-SSRS) CSSRS Past [...] on filedocumented in this encounter Care Teams Human Resources Operations Director Relationship Specialty Start Date End Date Marly Kumar NP [address] [place] [address] PCP - General Nurse Practitioner 09/22/24 documented as of this encounter
--- OUTSIDE RECORDS SUMMARY | 2025-10-24 13:02 | XMS_ITS | Encounter Summary ---
Author Organization [employer] ([place], [place], [place], [place], [place]) Address [address] [place] [address] Care Team Providers Care Shank Cutter Name Role Phone Marly Kumar HYDROGEN OPERATOR Primary Care Provider [phone] Encounter Details Date Type Department Care Team (Late st Contact Info) Description 07/26/2020 Transcribed Document [facility] [place] Family [facility] [place] [address] ProviderMiya MD [address] [place] [address] Social History Tobacco Use Types Packs/Day [...] On: 07/26/2020 16:03 EDT by EDISON FONTANEZ, RN-Medical Imaging DirectorRestaurant District Manager Progress Note Discharge Arrangements : Patient Post-Acute [...] Attend Multidisciplinary Rounds? : No EDISON FONTANEZ, RN-Medical Imaging Director - 07/26/2020 16:03 EDT Narrative Progress Note Narrative Progress Note : On continuous EEG monitoring. EDISON FONTANEZ RN-Medical Imaging Director - 07/26/2020 16:03 EDT Electronically signed by [facility] Conversion Plant Utility Person Cerner at 02/19/2023 6:34 PM CDT documented in this encounter Plan of Treatment Not on file documented as of this encounter Visit Diagnoses Not on filedocumented in this encounter Care Teams Shank Cutter Relationship Specialty Start Date End Date Marly Kumar NP [address] [place] [address] PCP - General Nurse Practitioner 09/22/24 documented as of this encounter
--- OUTSIDE RECORDS SUMMARY | 2025-10-24 13:02 | XMS_ITS | Encounter Summary ---
Author Organization [email or web address] ([place], [place], [place], [place], [place]) Address [address] [place] [address] Care Team Providers Care Sheep Killer Name Role Phone Marly Kumar INDUSTRIAL MACHINERY MECHANIC Primary Care Provider [phone] Encounter Details Date Type Department Care Team (Latest Contact Info) Description 10/11/2025 Travel Social History Tobacco Use Types Packs/Day [...] as of this encounter Functional Status * Communicable Disease Screening Question Answer Date of Assessment Author Have you been in contact with someone who was sick? No / Unsure 10/11/2025 9:26 AM Selena Pakr Do you have any of the following new or worsening symptoms? None of these 10/11/2025 9:26 AM [place] documented as of this encounter Plan of Treatment Not on file documented as of this encounter Visit Diagnoses Not on filedocumented in this encounter Care Teams Sheep Killer Relationship Specialty Start Date End Date Marly Kumar NP [address] [place] [address] PCP - General Nurse Practitioner 09/22/24 documented as of this encounter
--- OUTSIDE RECORDS SUMMARY | 2025-10-24 13:02 | XMS_ITS | Encounter Summary ---
Author Organization [employer] ([place], [place], [place], [place], [place]) Address [address] [place] [address] Care Team Providers Care University Controller Name Role Phone Marly Kumar BACTERIOLOGIST PHARMACEUTICAL Primary Care Provider [phone] Encounter Details Date Type Department Care Team (Late st Contact Info) Description 07/27/2020 Transcribed Document [facility] [facility] [place] [address] ProviderMiya MD [address] [place] [address] Social History Tobacco Use Types Packs/Day [...] EEG-video monitoring was performed using the 32-channel YPlan monitoring system. The seizure detection computer was [...] noted suggestive of mild diffuse cerebral dysfunction. /[id number] MD RAPHAEL Esquivel/JOHNNIE / RAPHAEL / MODL /[id number] Electronically signed by [facility] Conversion Vice President Business Development Cerner at 02/19/2023 6:28 PM CDT documented in this encounter Plan of Treatment Not on file documented as of this encounter Visit Diagnoses Not on filedocumented in this encounter Care Teams University Controller Relationship Specialty Start Date End Date Marly Kumar, DUNG [address] [place] [id number] PCP - General Nurse Practitioner 09/22/24 documented as of this encounter
--- OUTSIDE RECORDS SUMMARY | 2025-10-24 13:02 | XMS_ITS | Encounter Summary ---
Author Organization [employer] ([place], [place], [place], [place], [place]) Address [address] [place] [address] Care Team Providers Care Emr Specialist Name Role Phone Marly Kumar PRECISION OPTICAL GOODS WORKER Primary Care Provider [phone] Encounter Details Date Type Department Care Team (Late st Contact Info) Description 07/26/2020 Transcribed Document [facility] [place] [facility] [place] [address] ProviderMiya MD [address] [place] [address] Social History Tobacco Use Types Packs/Day [...] On: 07/26/2020 15:58 EDT by EDISON FONTANEZ, RN-Park Services Specialist Initial Assessment I Previously Documented Living Environment [...] Is Guardianship Needed : No EDISON FONTANEZ, RN-Park Services Specialist - 07/26/2020 15:58 EDT Initial Assessment II Sensory and Motor Deficits : Weakness Deficit Description : uses a wheelchair for mobility Current Home Treatments and Equipment : Wheelchair Services and Community Resources : Transportation assistance Services and Community Resources Addl Comments : [facility] phone [phone] fax [phone] [employer] phone [phone] / [phone] Does the Patient have a Floor to SNF Benefit? : No EDISON FONTANEZ, RN-Park Services Specialist - 07/26/2020 15:58 EDT Discharge Needs I Anticipated Discharge Date : 07/28/2020 EDT Anticipated Discharge To, : Extended Care Facility Current Home Treatment/Equipment : Current Home Treatment/Equipment No qualifying data available. Post Acute/Home Treatments : None Documentation Status Complete : Yes EDISON FONTANEZ, RN-Park Services Specialist - 07/26/2020 15:58 EDT Discharge Needs II Professional Skilled Services : Professional Skilled Services No qualifying data available. Needs Assistance with Transportation : Yes EDISON FONTANEZ, RN-Park Services Specialist - 07/26/2020 15:58 EDT Narrative Note Narrative Note : Pt from [facility] in [facility]. Called Em at [facility]. She stated that pt has a bedhold. She stated that pt travels using [employer] (the bus). She stated that pt can return to the facility when she is discharged. EDISON FONTANEZ, RN-Park Services Specialist - 07/26/2020 15:58 EDT documented in this encounter Plan of Treatment Not on file documented as of this encounter Visit Diagnoses Not on filedocumented in this encounter Care Teams Emr Specialist Relationship Specialty Start Date End Date Marly Kumar, DUNG [address] [place] [address] PCP - General Nurse Practitioner 09/22/24 documented as of this encounter
--- OUTSIDE RECORDS SUMMARY | 2025-10-24 13:03 | XMS_ITS | Clinical Summary ---
Author Organization [facility] Address [address] [place] [address] Care Team Providers Care Workers' Compensation Claims Examiner Name Role Phone Jessie Payne APRN Unavailable Marly Gomez APRN Primary Care Provider [phone] Allergies Active Allergy Reactions Criticality Noted Date [...] Encounters Date Type Department Care Team Description 10/23/2025 Telephone PAV [facility] 234 [facility] [address] [place] [address] [facility] 10/17/2025 Hospital Encounter P[facility] [address] [facility] [address] [place] [address] Encounter for other specified special examinations from Last 3 Months Immunizations Immunization Administration [...] drink first t zander in the morning (EYE-WELL DRILL OPERATOR) to steady your nerves or to [...] 07/11/2025 2:46 PM EDT Plan of Treatment Upcoming Encounters Date Type Department Care Team (Late st Contact Info) Description 11/23/2025 9:00 AM EST Appointment PAV [facility] Breast [facility] [address] [address] 11/23/2025 9:30 AM EST Appointment P[facility] Breast [facility] [address] [address] 11/23/2025 1:00 PM EST Appointment PAV [facility] Breast [facility] [address] [address] Health Maintenance Due Date Last Done Comments [facility]-Bone Density Scan 1953 [facility]-Hepatitis C Screening 1953 [facility]-Medicare Annual Wellness (AWV) 1953 [facility]-/Child/Adol SDOH Screenings 1953 [facility]- SDOH Screenings 1971 [facility]-Adult SDOH Screenings 1971 CT Colonography 1998 Colonoscopy 1998 FIT-DNA 1998 FIT 1998 FOBT 1998 Sigmoidoscopy 1998 [facility]-Colorectal Cancer Screening 1998 [facility]-Breast Cancer Screening 2003 [id number] Vaccine (5 - Mixed Product risk 2024- season) 01/31/2026 08/02/2025, 09/09/2021, 12/05/2020, Additional history exists [facility]-Depression Screening 07/11/2026 07/11/2025, 09/0 07/2025 [facility]-Diabetes: Hemoglobin A1C 09/21/2026 09/21/2025, 08/25/2025 [facility]-DTaP,Tdap,and Td Vaccines (3 - Td or Tdap) 05/10/2035 05/10/2025, 08/07/2023 [facility]-Pneumococcal Vaccine: 50+ Years Completed 05/17/2024 [facility]-RSV Vaccine: 60+ Years or Completed 09/08/2024 [facility]-Zoster Vaccines Completed 12/28/2024, [facility]-Obesity Intervention Completed 025, 06/30/2025, 08/14/2023 [facility]-Influenza Vaccine Completed 08/02/2025 , 09/08/2024, 08/18/2022, Additional history exists HPV Vaccines (No Doses Required) Completed [facility]-HIB Vaccines Aged Out No longer e [...] EST Encounter for other specified special examinations from Last 3 Months Results * Mammography Outside Images Upload (10/17/2025 12:00 AM EST) Narrative IMAGING - 10/24/2025 11:28 AM EST This study was performed at an outside facility and has been loaded into the PACS system for reference only. This order has been auto-finalized and does not contain a result. us Imaging Upload Radiant IMG BI PROCEDURES Final R esult IMAGING from Last 3 Months Insurance MEDICARE [place]ICAID-[place] Advance Directives * Full Code (Latest Code Status on File) Date Activated Date Inactivated Comments 08/07/2023 11:31 PM 08/08/2023 9:21 PM Question Answer Comments Patient has decision-making capacity? Yes Care Teams Workers' Compensation Claims Examiner Relationship Specialty Start Date End Date Marly Kumar APRN [address] [place] [address] PCP - General 06/09/25 Jessie Payne APRN 08/07/23
--- OUTSIDE RECORDS SUMMARY | 2025-10-24 13:03 | XMS_ITS | Encounter Summary ---
Author Organization [facility] Address [address] [place] [address] Care Team Providers Care Patent Prosecution Attorney Name Role Phone Marly Kumar SHAKIRA Primary Care Provider [phone] Encounter Details Date Type Department Care Team (Late st Contact Info) Description 08/28/2025 Readmission Management [facility] [address] [place] [address] Rosita Jesus, RN Social History Tobacco Use Types Packs/Day [...] as of this encounter Miscellaneous Notes * Outreach Note - Rosita Jesus, RN - 08/28/2025 8:04 AM EDT Prep Survey Flowsheet Row Responses [facility] patient discharged from? [facility] Is LACE score less than 10 ? No Eligibility Readm Mgmt Discharge diagnosis Right facial numbness Does the patient have one of the following disease processes/diagnoses(primary or secondary)? Other Does the patient have Home health ordered? Yes What is the Home health agency? [facility] Is there a DME ordered? Yes What DME was ordered? grabiel arguello Prep survey completed? Yes Rosita Cruz - Registered Nurse documented in this encounter Plan of Treatment Upcoming Encounters Date Type Department Care Team (Late st Contact Info) Description 10/31/2025 9:00 AM EST Office Visit [facility] CARDIOLOGY [address] [place] [address] Nereida Ambrose CLOTH ROLL WINDER [address] [place] [address] 11/13/2025 2:30 PM EST Office Visit [facility] NEUROLOGY [address] [facility] [address] [place] [address] Camille Spann, CL[employer] ROLL WINDER 1720 [facility] [address] [address] 02/09/2026 2:15 PM EDT Office Visit [facility] GASTROENTEROLOGY 1720 [facility] [address] [place] [address] Shahla Troy PA-C 1720 [facility] [address] [place] [address] documented as of this encounter Visit Diagnoses Not on filedocumented in this encounter Care Teams Patent Prosecution Attorney Relationship Specialty Start Date End Date Marly Kumar APRN [address] [place] [address] PCP - General Family Medicine 07/06/24 documented as of this encounter
--- OUTSIDE RECORDS SUMMARY | 2025-10-24 13:03 | XMS_ITS | Encounter Summary ---
Author Organization [facility] Address [address] [place] [address] Care Team Providers Care Lunchroom Food Service Supervisor Name Role Phone Marly Kumar SHAKIRA Primary Care Provider [phone] Encounter Details Date Type Department Care Team (Latest Contact Info) Description 10/10/2025 Travel Social History Tobacco Use Types Packs/Day [...] Description 10/31/2025 9:00 AM EST Office Visit [facility] CARDIOLOGY [address] [place] [address] Nereida Ambrose APRN [address] [place] [address] 11/13/2025 2:30 PM EST Office Visit [facility] NEUROLOGY [address] [facility] [address] [place], [place] [id number] Camille Spann APRN 1720 [facility] [address] [address] 02/09/2026 2:15 PM EDT Office Visit [facility] GASTROENTEROLOGY [address] [facility] [address] [place] [address] Shahla Troy PALienC 1720 [facility] [address] [place], [place] [address] documented as of this encounter Visit Diagnoses Not on filedocumented in this encounter Care Teams Lunchroom Food Service Supervisor Relationship Specialty Start Date End Date Marly Kumar APRN [address] [place], [place] [id number] PCP - General Family Medicine 07/06/24 documented as of this encounter
--- OUTSIDE RECORDS SUMMARY | 2025-10-24 13:03 | XMS_ITS | Encounter Summary ---
Author Organization [facility] Address [address] [place] [address] Care Team Providers Care Green Prize Packer Name Role Phone Marly Kumar SHAKIRA Primary Care Provider [phone] Reason for Visit * Reason Onset Date Comments - CALL BACK 09/26/2025 Encounter Details Date Type Department Care Team (Late st Contact Info) Description 09/26/2025 Telephone [facility] CARDIOLOGY [address] [address] Justin Moses MD 1720 [facility] [address] [place] [address] - CALL BACK Social History Tobacco Use Types [...] encounter Miscellaneous Notes * Telephone Encounter - Mary Ann Anderson RN - 09/26/2025 2:33 PM EST Spoke with patient, advised chart does not reflect any new medications ordered by Dr. Moses * Telephone Encounter - Rolanda Gutierrez RegSched Rep - 09/26/2025 1:48 PM EST Caller: [facility] Relationship: Emergency Contact Best call back number: [phone] What is the best time to reach you: ANYTIME Who are you requesting to speak with (clinical staff, provider, specific staff member): ANYONE What was the call regarding: PATIENTS DAUGHTER WOULD LIKE A CALL BACK TO DISCUSS WHICH MEDICATIONS SHE WAS PRESCRIBED AFTER HER HEART CATH. documented in this encounter Plan of Treatment Upcoming Encounters Date Type Department Care Team (Late st Contact Info) Description 10/31/2025 9:00 AM EST Office Visit [facility] CARDIOLOGY [address] [place] [address] Nereida Ambrose APRN [address] [place] [address] 11/13/2025 2:30 PM EST Office Visit [facility] NEUROLOGY [facility] [address] [place] [address] Camille Spann APRN 1720 [facility] [address] [place], [place] [address] 02/09/2026 2:15 PM EDT Office Visit [facility] GASTROENTEROLOGY 1720 [facility] [address] [place] [address] Shahla Troy PALienC 1720 [facility] [address] [place], [place] [address] documented as of this encounter Visit Diagnoses Not on filedocumented in this encounter Care Teams Green Prize Packer Relationship Specialty Start Date End Date Marly Kumar APRN [address] [place] [address] PCP - General Family Medicine 07/06/24 documented as of this encounter
--- OUTSIDE RECORDS SUMMARY | 2025-10-24 13:03 | XMS_ITS | Encounter Summary ---
Author Organization [facility] Address [address] [place] [address] Care Team Providers Care Jacket Preparer Name Role Phone Marly Kumar SHAKIRA Primary Care Provider [phone] Encounter Details Date Type Department Care Team (Late st Contact Info) Description 08/23/2025 Telephone [facility] CARDIOLOGY [address] [place] [address] Dinorha Christiansen MD [address] [place] [address] Social History Tobacco Use Types Packs/Day [...] Telephone Encounter - Yulissa Queen RN - 08/23/2025 4:06 PM EDT Received a call from Sia, the DO @ [facility] in regards to pt. Pt presented at [facility] with right sided facial drooping and hand jerking. Vital signs taken and were stable. Pt states she woke up that morning with nausea and right sided headache. They called pt's PCP, Marly Kumar APRN who advised them to call 911. Pt was transported to [facility]. The pt herself called Sia @ 2:34PM today and related CT scan showed she had had a stroke. Pt was awaiting transfer to [facility]. Pt wanted providers to be aware of her current situation. Pt has follow up scheduled here 09/11/25. documented in this encounter Plan of Treatment Upcoming Encounters Date Type Department Care Team (Late st Contact Info) Description 10/31/2025 9:00 AM EST Office Visit [facility] CARDIOLOGY [address] [place] [address] Nereida Ambrose APRN 24 [place] [address] 11/13/2025 2:30 PM EST Office Visit [facility] NEUROLOGY [address] [place] [address] [place] [address] Camille Spann APRN 1720 [facility] [address] [address] 02/09/2026 2:15 PM EDT Office Visit [facility] GASTROENTEROLOGY [address] [place] [address] Shahla Troy PA-C [address] [place], [place] [address] documented as of this encounter Visit Diagnoses Not on filedocumented in this encounter Care Teams Jacket Preparer Relationship Specialty Start Date End Date Marly Kumar, WAREHOUSE PACKER [facility]5 [place] [address] PCP - General Family Medicine 07/06/24 documented as of this encounter
--- OUTSIDE RECORDS SUMMARY | 2025-10-24 13:03 | XMS_ITS | Encounter Summary ---
Author Organization [facility] Address [address] [place] [address] Care Team Providers Care Acquisition Analyst Name Role Phone Marly Kumar SHAKIRA Primary Care Provider [phone] Reason for Visit * Reason Onset Date Comments Med Management 10/10/2025 Encounter Details Date Type Department Care Team (Late st Contact Info) Description 10/10/2025 Telephone [facility] GASTROENTEROLOGY 1720 [facility] [address] [place] [address] Shahla Troy PA-C 1720 [facility] [address] [place] [address] Med Management Social History Tobacco Use Types Packs/Day Years [...] encounter Miscellaneous Notes * Telephone Encounter - Hema Mccarthy RMA - 10/12/2025 9:36 AM EST I SPOKE WITH PHARMACIST. PRESCRIPTION IS READY FOR ELECTROLOGIST * Telephone Encounter - Melinda Morton RegSched Rep - 10/10/2025 2:45 PM EST Hub staff attempted to follow warm transfer process and was unsuccessful Caller: [facility] - [address] [phone] [facility] [phone] FX Relationship to patient: Pharmacy Best call back number: [phone] Patient is needing: PHARMACY IS NEEDING TO SPEAK W/ THE OFFICE REGARDING PRESCRIPTION. PLEASE CALL AND ADVISE. documented in this encounter Plan of Treatment Upcoming Encounters Date Type Department Care Team (Late st Contact Info) Description 10/31/2025 9:00 AM EST Office Visit [facility] CARDIOLOGY [address] [place] [address] Nereida Ambrose APRN [address] [place] [address] 11/13/2025 2:30 PM EST Office Visit [facility] NEUROLOGY [address] [facility] [address] [address] [place] [address] Camille Spann APRN 1720 [facility] [address] [address] 02/09/2026 2:15 PM EDT Office Visit [facility] GASTROENTEROLOGY 1720 [facility] [address] [place] [address] Shahla Troy PAMireille 1720 [facility] [address] [place], [place] [address] documented as of this encounter Visit Diagnoses Not on filedocumented in this encounter Care Teams Acquisition Analyst Relationship Specialty Start Date End Date Marly Kumar APRN [address] [place] [address] PCP - General Family Medicine 07/06/24 documented as of this encounter
--- OUTSIDE RECORDS SUMMARY | 2025-10-24 13:04 | XMS_ITS | Encounter Summary ---
Author Organization [facility] Address [address] [place] [address] Care Team Providers Care Research Director Name Role Phone Marly Kumar SHAKIRA Primary Care Provider [phone] Encounter Details Date Type Department Care Team (Latest Contact Info) Description 09/11/2025 Travel Social History Tobacco Use Types Packs/Day [...] [facility] CARDIOLOGY [address] [place] [address] Nereida Ambrose APRN [address] [place] [address] 11/13/2025 2:30 PM EST Office Visit [facility] NEUROLOGY [address] [facility] [address] [place], [place] [address] Camille Spann APRN 1720 [facility] [address] [address] 02/09/2026 2:15 PM EDT Office Visit [facility] GASTROENTEROLOGY [address] [facility] [address] [place] [address] Shahla Troy PALienC 1720 [facility] [address] [place], [place] [address] documented as of this encounter Visit Diagnoses Not on filedocumented in this encounter Care Teams Research Director Relationship Specialty Start Date End Date Marly Kumar APRN [address] [place], [place] [id number] PCP - General Family Medicine 07/06/24 documented as of this encounter
--- OUTSIDE RECORDS SUMMARY | 2025-10-24 13:04 | XMS_ITS | Clinical Summary ---
Author Organization [employer] ([place], [place], [place], [place], [place]) Address [address] [place] [address] Care Team Providers Care Cup Setter Lockstitch Name Role Phone Marly Kumar ARCHITECTURAL DRAFTSMAN Primary Care Provider [phone] Allergies Active Allergy Reactions Criticality Noted Date Comments Alendronate Rash Low 03/06/2017 Gabapentin Other (See Comments) High 10/11/2025 Stumble unsteady on feet Penicillin Hives High 09/15/2024 Sulfa (Sulfonamide Antibiotics) [...] mouth every 6 (six) hours as needed. Active aspirin 81 MG EC tablet Take 1 tablet (81 mg total) by mouth daily. Active budesonide-formoter oL (SYMBICORT) 160-4.5 mcg/actuation inhaler Inhale 2 puffs by mouth 2 (two) times daily. Active divalproex (DEPAKOTE) [...] by mouth 2 (two) times daily. Active levETIRAcetam (KEPPRA) 500 MG tablet Take 1 tablet (500 mg total) by mouth 2 (two) times daily. Active rOPINIRole (REQUIP) 1 MG tablet Take 1 tablet (1 mg total) by mouth daily. Active cholecalciferol, vitamin D3, 1,250 mcg (50,000 unit) tab Take 1 tablet (50,000 Units total) by mouth once a week. Active Active Problems Problem Noted Date Diagnosed Date HTN (hypertension) 10/06/2024 Stented coronary artery 10/06/2024 CAD (coronary artery disease) 10/06/2024 CHF (congestive heart failure) 10/06/2024 Pacemaker 10/06/2024 Other supraventricular tachycardia 10/06/2024 MN (myocardial infarction) 10/06/2024 Gastroesophageal reflux disease 10/06/2024 Seizures 10/06/2024 TIA (transient ischemic attack) 10/06/2024 Chronic obstructive pulmonary disease 10/06/2024 Smoker 10/06/2024 Encounters Date Type Department Care Team Description 10/11/2025 10:00 AM EST Office Visit [facility] Neurology [address] [facility] [address] [place] [address] Rad Duong MD 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); Nonepileptic episode (HCC) 10/11/2025 Travel from Last 3 Months Social History [...] F) 10/11/2025 9:55 AM EST Respiratory Rate 14 10/06/2024 1:40 PM EST Oxygen Saturation 98% 10/11/2025 9:55 AM EST Inhaled Oxygen Concentration - - Weight 74.4 kg (164 lb) 10/11/2025 9:55 AM EST Height 152.4 cm (5') 10/11/2025 9:55 AM EST Body Mass Index 32.03 10/11/2025 9:55 AM EST Plan of Treatment Health Maintenance Due Date Last Done Comments CT Colonography 1953 Colonoscopy 1953 Colorectal Cancer Screening 1953 DXA SCAN 1953 FOBT/FIT 1953 Fit-DNA (Cologuard) 1953 Sigmoidoscopy 1953 Depression Screening (12+) 1965 Hepatitis C Screening 1971 Breast Cancer Screening 1993 Respiratory Syncytial Virus (RSV) Adult or (1 - Risk 60-74 years 1-dose series) 2013 Falls Risk Screening 11/02/2024 COVID-19 VACCINE (5 - 4-2 5 season) 2026 08/02/2025, 09/09/2021, 12/05/2020, Additional history exists Tobacco Cessation Counseling and Screening (12+) 10/11/2026 10/11/2025 DTAP/TDAP/TD VACCINES (3 - T d or Tdap) 05/10/2035 05/10/2025, 08/07/2023 Pneumococcal 50+ years Completed 05/17/2024 Shingles Vaccine (Zoster) Completed 12/28/2024, Influenza Vaccine Completed 08/02/2025, 09/08/2024 Medical Devices Implanted Type Area Dimmer Board Operator Device Identifier Shelf Expiration Date Model / Serial / Lot Iol Uv Clareon +21.5 [id number] - [id number] Implanted:Qty: 1 on 09/22/2024 by Urmila So MD at [facility] IMPLANTS Left: Eye GUS 09/24/2027 [id number] / [id number] / Iol Uv Clareon +22.0 [id number] - [id number] Implanted:Qty: 1 on 10/06/2024 by Urmila So MD at [facility] IMPLANTS Right: Eye GUS 08/05/2027 [id number] / [id number] / Insurance MEDICARE PART B ONLY MEDICAID OF [place] Care Teams Cup Setter Lockstitch Relationship Specialty Start Date End Date Marly Kumar NP [address] [place] [address] PCP - General Nurse Practitioner 09/22/24
--- OUTSIDE RECORDS SUMMARY | 2025-10-24 13:04 | XMS_ITS | Encounter Summary ---
Author Organization Healthcare Address [address] [place] [address] Care Team Providers Care Reverser Name Role Phone Pcp, No Primary Care Provider Jessie King WOOD HEEL FITTER MACHINE Unavailable Marly Gomez WOOD HEEL FITTER MACHINE Primary Care Provider [phone] Reason for Referral * Consultation (Routine) - Closed Specialty Diagnoses / Procedures Referred By Contact Referred To Contact Physical Medicine and Rehabilitation Diagnoses Numbness Numbness and tingling Carpal tunnel syndrome, bilateral Cynthia Garay MD fax:[phone] [facility] [address] [facility] [place] [address] Phone: tel: fax: Referral ID Status Reason Start Date Expiration Date V isits Requested Visits Authorized [id number] Closed Specialty Services Required 06/02/2025 12/02/2026 1 1 Encounter Details Date Type Department Care Team (Late st Contact Info) Description 06/02/2025 Community [facility] [address] [place] [address] Cynthia Garay MD Numbness (Primary Dx); Numbness [...] drink first t zander in the morning (EYE-DENTURE WAXER) to steady your nerves or to get [...] Author Yes 08/08/2023 5:39 PM SEANT Kevin Isdiro RN documented as of this encounter Mental [...] Description 11/23/2025 9:00 AM EST Appointment [facility] [address] [facility] [address] [place] [address] 11/23/2025 9:30 AM EST Appointment [facility] [address] [facility] [address] [place] [address] 11/23/2025 1:00 PM EST Appointment [facility] [address] [facility] [address] [place] [address] Scheduled Referrals Name Type Priority Associated Diagnoses [...] documented as of this encounter Care Teams Reverser Relationship Specialty Start Date End Date Pcp, No [address] [place] [address] PCP - General Family Medicine 08/07/23 06/08/25 Marly Kumar APRN [address] [place] [address] PCP - General 06/09/25 Jessie Payne APRN [address] [place] [address] 08/07/23 documented as of this encounter
--- OUTSIDE RECORDS SUMMARY | 2025-10-24 13:04 | XMS_ITS | Encounter Summary ---
Author Organization [facility] Address [address] [place] [address] Care Team Providers Care Bus Operator Name Role Phone Marly Kumar SHAKIRA Primary Care Provider [phone] Encounter Details Date Type Department Care Team (Late st Contact Info) Description 09/07/2025 Readmission Management [facility] [address] [place] [address] Renee Gage RN Social History Tobacco Use Types Packs/Day [...] encounter Miscellaneous Notes * Outreach Note - Renee Gage RN - 09/07/2025 8:25 AM EST Medical Week 2 Survey Flowsheet Row Responses [facility] patient discharged from? [place] Does the patient have one of the following disease processes/diagnoses(primary or secondary)? Other Week 2 attempt successful? Yes Call start time 826 Discharge diagnosis Right facial numbness Call end time 830 Meds reviewed with patient/caregiver? Yes Is the patient taking all medications as directed (includes completed medication regime)? Yes Does the patient have a primary care provider? Yes Does the patient have an appointment with their PCP within 7 days of discharge? Yes Has the patient kept scheduled appointments due by today? Yes Has home health visited the patient within 72 hours of discharge? N/A What DME was ordered? rolling walker Has all DME been delivered? Yes Psychosocial issues? No Did the patient receive a copy of their discharge instructions? Yes What is the patient's perception of their health status since discharge? Same Is the patient/caregiver able to teach back the hierarchy of who to call/visit for symptoms/problems? PCP, Specialist, Home health nurse, Urgent Care, ED, 911 Yes Week 2 Call Completed? Yes Graduated Yes Graduated/Revoked comments Pt reports she is about the same. Pt goes to adult day care and does require assistance. Uses walker. Denies any new or worsening s/s and is awre of when to call Dr or seektreatment. Pt sees cardio next week and has appt with neuro in Nov. Call end time 830 RENEE Delvalle - Registered Nurse documented in this encounter Plan of Treatment Upcoming Encounters Date Type Department Care Team (Late st Contact Info) Description 10/31/2025 9:00 AM EST Office Visit [facility] CARDIOLOGY [address] [address] Nereida Ambrose APRN [address] [place] [address] 11/13/2025 2:30 PM EST Office Visit [facility] NEUROLOGY [address] [facility] [address] [place], [place] [id number] Camille Spann APRN 1720 [facility] [address] [place], [place] [id number] 02/09/2026 2:15 PM EDT Office Visit [facility] GASTROENTEROLOGY [address] [facility] [address] [place] [address] Shahla Troy PA-C [address] [facility] [address] [place], [place] [phone] documented as of this encounter Visit Diagnoses Not on filedocumented in this encounter Care Teams Bus Operator Relationship Specialty Start Date End Date Marly Kumar, DRILL PRESS HAND [facility] [place], [place] [id number] PCP - General Family Medicine 07/06/24 documented as of this encounter
--- OUTSIDE RECORDS SUMMARY | 2025-10-24 13:04 | XMS_ITS | Encounter Summary ---
Author Organization [facility] Address [address] [place] [address] Care Team Providers Care Irrigation System Installer Name Role Phone Marly Kumar SHAKIRA Primary Care Provider [phone] Reason for Visit * Reason Onset Date Comments CAMILLE SPANN APRN- [facility] F/U APPT 08/28/20 Encounter Details Date Type Department Care Team (Late st Contact Info) Description 08/28/2025 Telephone [facility] NEUROLOGY [address] [place] [address] Camille Spann APRN [address] [place] [address] CAMILLE SPANN APRN- [facility] F/U APPT Social History Tobacco Use Types Packs/Day Years [...] encounter Miscellaneous Notes * Telephone Encounter - Otf Shultz RegSched Rep - 08/28/2025 12:40 PM EDT Caller: Mu Perkins Relationship to patient: Self Best call back number: [phone] New or established patient? [x] New [] Established Date of admission: 08/24/2025 Date of discharge: 08/27/2025 Length of stay (If applicable): 3 DAYS Facility discharged from: [facility] Diagnosis/Symptoms: HX OF RIGHT THALAMIC STROKE Suggested follow-up timeframe: 8 WEEKS Specialty Only: Did you see a [facility] provider? [x] Yes [] No If so, who? HARLEEN TARANGO APRN & DR. NOBLE MAGUIRE Additional notes: PT HAS BEEN SCHEDULED FOR HER [facility] F/U ON 11/13/25 AND ADDED TO THE WAITLIST. PLEASE BE AWARE THIS APPT HAS BEEN SCHEDULED OUTSIDE OF THE SUGGESTED F/U TIMEFRAME INDICATED ON DISCHARGE SUMMARY. PLEASE REVIEW AND ADVISE. documented in this encounter Plan of Treatment Upcoming Encounters Date Type Department Care Team (Late st Contact Info) Description 10/31/2025 9:00 AM EST Office Visit [facility] CARDIOLOGY [address] [address] Nereida Ambrose APRN [address] [place] [address] 11/13/2025 2:30 PM EST Office Visit [facility] NEUROLOGY [address] [facility] [address] [place] [address] Camille Spann APRN 1720 [facility] [address] [address] 02/09/2026 2:15 PM EDT Office Visit [facility] GASTROENTEROLOGY [address] [facility] [address] [place] [phone] Shahla Troy PA-C [address] [facility] [address] [place] [phone] documented as of this encounter Visit Diagnoses Not on filedocumented in this encounter Care Teams Irrigation System Installer Relationship Specialty Start Date End Date Marly Kumar APRN [address] [place] [phone] PCP - General Family Medicine 07/06/24 documented as of this encounter
--- OUTSIDE RECORDS SUMMARY | 2025-10-24 13:04 | XMS_ITS | Encounter Summary ---
[facility] [address] [place] [address] Care Team Providers Care Education Faculty Member Name Role Phone Marly Kumar SHAKIRA Primary Care Provider [phone] Encounter Details Date Type Department Care Team (Late st Contact Info) Description 08/29/[address] [facility] CARDIOLOGY [address] [place] [address] Dinorah Christiansen MD [address] [place] [address] Social History Tobacco Use Types Packs/Day [...] encounter Miscellaneous Notes * Telephone Encounter - Bridgette Zepeda RN - 08/29/2025 12:14 PM EDT Have relayed to Mira that ER visit was at [facility] and after reviewing records she reiterates thatcardiology can wait till her upcoming appointment. She relays that this sounds more of PCP or neuroissue. Called and relayed information to Sia at [facility]. * Telephone Encounter - Bridgette Zepeda RN - 08/29/2025 10:27 AM EDT Received phone call from Sia at the [facility]. She states concerns because Daniela was sent to the ER for stroke like symptoms with a follow up with primary care.Primary care had instructed them that when she breaks out in sweats to put a cool rag on her head and if it last more than 10 minutes to go to the ER. She states that these episodes where she breaks out in big sweats are happening more frequently. They only last a couple minutes and staff are placing cool rag on her head but is concerned that she is going to have an event while at the day [facility]. Relays that she does not have a follow up until September [address] Christiansen. Was requesting sooner appointment.Was seen in ER on 08-24. seen family practice after. Scheduled for Neorology on 11-13-25. Scheduled with Crysty on 09-11-25 with device check. Did advise that the 09-11 appointment is probably the best that we are going krishna able to do. Do you think we need to try to get her in sooner? Please advise. documented in this encounter Plan of Treatment Upcoming Encounters Date Type Department Care Team (Late st Contact Info) Description 10/31/2025 9:00 AM EST Office Visit [facility] CARDIOLOGY [address] [place] [phone] Nereida Ambrsoe, GRINDER MACHINE SETTER [address] [place] [address] 11/13/2025 2:30 PM EST Office Visit [facility] NEUROLOGY [address] [facility] [address] [place], [place] [address] Camille Spann, GRINDER MACHINE SETTER 1720 [facility] [address] [place], [place] [phone] 02/09/2026 2:15 PM EDT Office Visit [facility] GASTROENTEROLOGY [address] [facility] [address] [place] [address] Shahla Troy PA-C [address] [facility] [address] [place], [place] [phone] documented as of this encounter Visit Diagnoses Not on filedocumented in this encounter Care Teams Education Faculty Member Relationship Specialty Start Date End Date Marly Kumar, GRINDER MACHINE SETTER [address] [place] [address] PCP - General Family Medicine 07/06/24 documented as of this encounter
--- OUTSIDE RECORDS SUMMARY | 2025-10-24 13:04 | XMS_ITS | Encounter Summary ---
Author Organization [employer] ([place], [place], [place], [place], [place]) Address [address] [place] [address] Care Team Providers Care Digital Media Manager Name Role Phone Marly Kumar AIRPLANE RENTAL CLERK Primary Care Provider [phone] Encounter Details Date Type Department Care Team (Late st Contact Info) Description 07/28/2020 Transcribed Document [facility] Family [facility] [place] [address] ProviderMiya MD [address] [place] [address] Social History Tobacco Use Types Packs/Day [...] EEG-video monitoring was performed using the 32-channel CheckInPage monitoring system. The seizure detection computer was [...] may be more prominent on the right. /[id number] MD RAPHAEL Esquivel/AQ / RAPHAEL / MODL /[id number] documented in this encounter Plan of Treatment Not on file documented as of this encounter Visit Diagnoses Not on filedocumented in this encounter Care Teams Digital Media Manager Relationship Specialty Start Date End Date Marly Kumar, AIRPLANE RENTAL CLERK [address] [place] [address] PCP - General Nurse Practitioner 09/22/24 documented as of this encounter
--- OUTSIDE RECORDS SUMMARY | 2025-10-24 13:04 | XMS_ITS | Encounter Summary ---
Author Organization [employer] ([place], [place], [place], [place], [place]) Address [address] [place] [address] Care Team Providers Care Junk Dealer Name Role Phone Marly Kumar TERRITORY SALES EXECUTIVE Primary Care Provider [phone] Encounter Details Date Type Department Care Team (Late st Contact Info) Description 07/28/2020 Transcribed Document [facility] Family Medicine [facility] [place] [address] ProviderMiya MD [address] [place] [address] Social History Tobacco Use Types Packs/Day [...] up with Dr. Duong in 6 months. /[id number] MD RAPHAEL Esquivel/AQ / TAF / MODL /[id number] documented in this encounter Plan of Treatment Not on file documented as of this encounter Visit Diagnoses Not on filedocumented in this encounter Care Teams Junk Dealer Relationship Specialty Start Date End Date Marly Kumar NP [address] [place] [place] [address] PCP - General Nurse Practitioner 09/22/24 documented as of this encounter
--- OUTSIDE RECORDS SUMMARY | 2025-10-24 13:04 | XMS_ITS | Encounter Summary ---
Author Organization [employer] ([place], [place], [place], [place], [place]) Address [address] [place] [address] Care Team Providers Care Dice Table Person Name Role Phone Marly Kumar INTEGRATED LOGISTICS OPERATIONS MANAGER Primary Care Provider [phone] Encounter Details Date Type Department Care Team (Late st Contact Info) Description 07/28/2020 Transcribed Document [facility] [place] [facility] [place] [address] ProviderMiya MD [address] [place] [address] Social History Tobacco Use Types Packs/Day [...] EEG-video monitoring was performed using the 32-channel [employer]urfers monitoring system. The seizure detection computer was [...] temporal regions, more prominent on the left. /[id number] Rad Duong MD TAF/AQ / TAF / MODL /[id number] documented in this encounter Plan of Treatment Not on file documented as of this encounter Visit Diagnoses Not on filedocumented in this encounter Care Teams Dice Table Person Relationship Specialty Start Date End Date Marly Kumar NP [address] [place] [address] PCP - General Nurse Practitioner 09/22/24 documented as of this encounter
--- OUTSIDE RECORDS SUMMARY | 2025-10-24 13:04 | XMS_ITS | Encounter Summary ---
Author Organization [employer] ([place], [place], [place], [place], [place]) Address [address] [place] [address] Care Team Providers Care Plumber Cub Name Role Phone Marly Kumar DATA MINING ANALYST Primary Care Provider [phone] Encounter Details Date Type Department Care Team (Late st Contact Info) Description 07/28/2020 Transcribed Document [facility] [place] [facility] [place] [address] ProviderMiya MD [address] [place] [address] Social History Tobacco Use Types [...] on filedocumented in this encounter Care Teams Plumber Cub Relationship Specialty Start Date End Date Marly Kumar NP [address] [place] [address] PCP - General Nurse Practitioner 09/22/24 documented as of this encounter
--- OUTSIDE RECORDS SUMMARY | 2025-10-24 13:04 | XMS_ITS | Encounter Summary ---
Author Organization [employer] ([place], [place], [place], [place], [place]) Address [address] [place] [address] Care Team Providers Care Mine Safety Engineer Name Role Phone Marly Kumar FREIGHT CHECKER Primary Care Provider [phone] Encounter Details Date Type Department Care Team (Late st Contact Info) Description 07/27/2020 Transcribed Document [facility] Family Medicine [facility] [place] [address] ProviderMiya MD [address] [place] [address] Social History Tobacco Use Types Packs/Day [...] Oil: 1,000 mg, Oral, Daily Flonase: 1 [place], Nostrils Both, Daily Florastor: 250 mg, Oral, [...] Daily, 60 Cap, 0 Refill(s) Flonase: 1 [place], Nostrils Both, Daily, 0 Refill(s) Florastor: 250 [...] = 1 Cap, Oral, Daily Flonase 1 [place], Nostrils Both, Daily Florastor 250 mg, Oral, [...] Oral, Daily fluticasone 0.05% nasal spray 1 [place], Nostrils Both, Daily furosemide 40 mg tab [...] At risk for sleep apnea / IMO [id number] / Confirmed, Active Problems (17) Angina Arthritis [...] EDT Height Source Stated Height Entry Format Rindge Height/Length, ECUADOREAN (ft) 4 ft Height/Length ECUADOREAN 11 Inch CLINICALHEIGHT 149.86 cm Type of Weight Measurement. Rindge Weight, est lb 245 lb Estimated Clinical Dosing Weight 111.36 kg [place] Body Weight 43 kg Weight Source Stated 07/26/2020 15:40 EDT Height Source Not Done: Completed and previously documented (Not Done) Height Entry Format Not Done: Completed and previously documented (Not Done) Weight Source Not Done: Completed and previously documented (Not Done) , Vitals Signs (last 24 hrs) Last Charted Minimum Maximum Temp 98.3 (JUL 24 12:00) 98.3 (JUL 26 12:00) 98.3 ([facility] 12:00) Apical HR 65 (JUL 26 12:00) 65 ([facility] 24 12:00) 65 ([facility] 24 12:00) Resp Rate 18 (JUL 24 12:00) 18 ([facility] 24 12:00) 18 ([facility] 24 12:00) SBP H 153 ([facility] 24 12:00) H 153 ([facility] 24 12:00) H 153 ([facility] 24 12:00) DBP 81 ([facility] 24 12:00) 81 ([facility] 24 12:00) 81 ([facility] 24 12:00) General: Alert and oriented. Eye: [...] on filedocumented in this encounter Care Teams Mine Safety Engineer Relationship Specialty Start Date End Date Marly Kumar NP [address] [place] [place] [address] PCP - General Nurse Practitioner 09/22/24 documented as of this encounter
--- OUTSIDE RECORDS SUMMARY | 2025-10-24 13:04 | XMS_ITS | Clinical Summary ---
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 4 Active fenofibrate (TRICOR) 145 MG tablet Take 1 tablet by mouth Daily. Active hydrOXYzine (ATARAX) 25 MG tablet Take 1 tablet by mouth Every 6 (Six) Hours As Needed. Active loratadine (CLARITIN) 10 MG tablet Take [...] Take 0.5-1 tablets by mouth Daily. 4 Active ondansetron (ZOFRAN) 4 MG tablet Take 1 tablet by mouth Every 8 (Eight) Hours As Needed. Active calcium carb-cholecalci ferol 600-10 MG-MCG tablet per tablet Take 1 tablet by mouth Daily. 4 Active potassium chloride 10 MEQ CR tabletIndicatio ns:Localized edema Take 1 tablet by mouth 2 (Two) Times a Day. 60 tablet 6 5 Active nitroglycerin (NITROSTAT) 0.4 MG SL tablet 1 under the tongue as needed for angina, may repeat q5mins for up three doses 25 tablet 5 5 Active furosemide (LASIX) 40 MG tablet Take 1 tablet by mouth 2 (Two) Times a Day. 180 tablet 1 5 Active albuterol sulfate HFA (Ventolin HFA) 108 (90 Base) MCG/ACT inhaler Inhale 2 puffs 4 (Four) Times a Day. Active lactulose (CHRONULAC) 10 GM/15ML solution Take 30 mL by mouth Daily. 5 Active levETIRAcetam (KEPPRA) 1000 MG tablet Take 1 tablet by mouth 2 (Two) Times a Day. Active nystatin (MYCOSTATIN) 839433 UNIT/GM cream Apply 2 applications topically daily to affected areas as needed 5 Active rOPINIRole (REQUIP) 1 MG tablet TAKE ONE TABLET BY MOUTH AT BEDTIME for restless legs 5 Active magnesium oxide (MAG-OX) 400 MG tabletIndicatio ns:Hypomagnesem ia TAKE ONE TABLET BY MOUTH EVERY DAY 90 tablet 3 5 Active bisoprolol (ZEBeta) 5 MG tablet TAKE 1 TABLET BY MOUTH DAILY 90 tablet 5 Active HYDROcodone-lisa taminophen (NORCO) 5-325 MG per tablet Take 1 tablet by mouth Every 4 (Four) Hours As Needed for Moderate Pain. Active acetaminophen (TYLENOL) 325 MG tablet Take 2 tablets by mouth Every 6 (Six) Hours As Needed for Mild Pain. 5 Active levothyroxine (SYNTHROID, LEVOTHROID) 88 MCG tablet Take 1 tablet by mouth Daily. 30 tablet 08/27/2025 9:15 AM EDT 5 Active famotidine (PEPCID) 20 MG tabletIndicatio ns:Gastroesopha geal reflux disease without esophagitis Take 1 tablet by mouth 2 (Two) Times a Day. 60 tablet 5 5 Active Active Problems Problem Noted Date Diagnosed Date Precordial pain 09/11/2025 Assessment & Plan (09/11/2025 1:33 PM EST): Orders: Basic Metabolic Panel; Future Case Request Housing Quality Standard Inspector: Left Heart Cath with Cors and SVG's, Left Heart Cath CBC Auto Differential; Future Right facial numbness 08/24/2025 Has a tremor 07/06/2024 Hospital discharge follow-up 07/06/2024 Assessment & Plan (07/06/2024 11:01 AM EDT): [facility] 06/30/2024 ER records reviewed. Patient [...] in s itu 02/25/2022 Assessment & Plan (09/11/2025 1:33 PM EST): Assessment & Plan (03/17/2025 12:43 PM EDT): -PM only check next week -RTC in 6 months for f/u and ICD/PM check Assessment & Plan (10/05/2024 10:34 PM EST): [facility] Doc ICD interrogated in clinic today. SVT times 8 episodes. She said she can tell when it happens but that it doesn't last very long. Hypertension, essential 02/25/2022 Assessment & Plan (09/11/2025 1:33 PM EST): {Hypertension is (optional):[id number]} Coronary artery disease invo lving [place] coronary artery of [place] heart without angina pectoris 02/25/2022 Assessment & Plan (09/11/2025 1:33 PM EST): {Coronary Artery Disease (OPTIONAL):94741} Orders: Basic Metabolic Panel; Future Case Request Housing Quality Standard Inspector: Left Heart Cath with Cors and SVG's, Left Heart Cath CBC Auto Differential; Future History of cardiac arrest 02/25/2022 Mixed hyperlipidemia 02/25/2022 Assessment & Plan (09/11/2025 1:33 PM EST): {Hyperlipidemia A/P Block (Optional):[id number]} Seizure disorder 02/25/2022 Localized edema 02/24/2017 Overview [...] Encounters Date Type Department Care Team Description 10/10/2025 2:15 PM EST Office Visit [facility] [address] [facility] [address] [place] [address] Shahla Troy PA-C Gastroesophageal reflux disease without esophagitis (Primary Dx); Esophageal dysphagia; Abnormal CT of the abdomen; Celiac artery stenosis; Superior mesenteric artery stenosis 10/10/2025 Telephone [facility] [address] [facility] [address] [place] [address] Shahla Troy PA-C Med Management 10/10/2025 Travel 09/26/2025 Telephone [facility] [address] [place] [address]MARANO - CALL BACK 09/25/2025 Telephone [facility] [address] [address] Marie Hudson MA Gilvin, Jennifer, MA- CALL BACK 09/21/2025 10:52 AM EST - 09/21/2025 11:52 AM EST Surgery [facility] F[facility] [address] [place] [address] Justin Moses MD Left Heart Cath - Right radial access [02202 (CPT )] 09/21/2025 9:03 AM EST - 09/21/2025 3:54 PM EST Hospital Encounter [facility] [address] [place] [address] Justin Moses MD Coronary artery disease involving [place] coronary artery of [place] heart without angina pectoris; Precordial pain Discharge Disposition: Home or Self Care 09/21/2025 Travel 09/11/2025 2:00 PM EST Office Visit [facility] [address] [address] Nereida Ambrose APRN Automatic implantable cardiac defibrillator in situ [Z95.810] (Primary Dx); Coronary artery disease involving [place] coronary artery of [place] heart without angina pectoris; Hypertension, essential; Mixed hyperlipidemia; Precordial pain; Bilateral lower extremity edema 09/11/2025 Travel 09/07/2025 Readmission Management [facility] [address] [place] [address] Renee Gage, TIM 08/29/2025 Telephone [facility] [address] [address] Dinorah Christiansen MD 08/29/2025 Readmission Management [facility] [address] [place] [address] Liliane Dwyer, TIM 08/28/2025 Telephone [facility] [address] [facility] [address] [place] [address] Lalit Spann, RESOLUTION AGENT LALIT SPANN, RESOLUTION AGENT- HOSPITAL F/U APPT 08/28/2025 Readmission Management [facility] [address] [facility] [place] [address] Rosita Jesus RN 08/24/2025 3:13 PM EDT - 08/27/2025 11:00 AM EDT Hospital Encounter [facility] [address] [facility] [place] [address] Som Albert MD Varney, M Scott, DO Seibert-Jacobs, Christina Marie, MD Dysphagia, unspecified type (Primary Dx); Dysarthria; Chronic low back pain, unspecified back pain laterality, unspecified whether sciatica present; Has a tremor; Chronic obstructive pulmonary disease, unspecified COPD type; Congestive heart failure, unspecified HF chronicity, unspecified heart failure type Discharge Disposition: Home-Health Care Svc 08/24/2025 Travel 08/23/2025 Telephone [facility] [address] [address] Dinorah Christiansen MD 08/16/2025 Telephone [facility] [address] [address] Kailey Porras APRN 07/28/2025 Refill [facility] [address] [address] Kailey Porras APRN Med Refill from Last 3 Months Immunizations Immunization Administration Dates Next Due Arexvy (RSV, Adults 60+ yrs) 09/08/2024 Fluzone >6mos 08/11/2014 Fluzone (or Fluarix & Flulav al for VFC) >6mos 08/18/2022 Fluzone High-Dose 65+YRS 08/02/2025,09/08/2024 Influenza Seasonal Injectable 07/21/2012 ,10/30/2011,08/12/2010,2006 Pneumococcal Conjugate 20-Va lent (PCV20) 05/17/2024 Shingrix 12/28/2024,09/26/2024 Tdap 05/10/2025,08/07/2023 Family History Relation Name Status Comments Brother [...] F) 10/10/2025 1:26 PM EST Respiratory Rate 18 09/21/2025 12:00 PM EST Oxygen Saturation 97% 10/10/2025 1:26 PM EST Inhaled Oxygen Concentration - - Weight 74.8 kg (165 lb) 10/10/2025 1:26 PM EST Height 152.4 cm (5') 10/10/2025 1:26 PM EST Body Mass Index 32.22 10/10/2025 1:26 PM EST Plan of Treatment Upcoming Encounters Date Type Department Care Team (Late st Contact Info) Description 10/31/2025 9:00 AM EST Office Visit [facility] [address] [place] [address] Nereida Ambrose, RESOLUTION AGENT [address] [place] [address] 11/13/2025 2:30 PM EST Office Visit [facility] [address] [facility] [address] [place] [address] Lalit Spann, RESOLUTION AGENT [address] [facility] [address] [address] 02/09/2026 2:15 PM EDT Office Visit [facility] [address] [facility] [address] [place] [phone] Shahla Troy PA-C [address] [facility] [address] [place], [place] [id number] Health Maintenance Due Date Last Done Comments MAMMOGRAM 1993 COLOGUARD 1998 COLON CANCER SCREENING 5 YEA R SIGMOIDOSCOPY 1998 COLONOSCOPY 1998 COLORECTAL CANCER SCREENING 1998 CT COLONOGRAPHY 1998 FECAL OCCULT BLOOD TEST 1998 FIT Testing (1 year) 1998 ANNUAL WELLNESS VISIT 05/23/2024 HEPATITIS C SCREENING 05/23/2024 COVID-19 Vaccine (5 - Mixed Product risk season) 2026 08/02/2025, 09/09/2021, 12/05/2020, Additional history exists LIPID PANEL 09/21/2026 09/21/2025, 08/25/2025 DXA SCAN 09/27/2026 09/27/2024 TDAP/TD VACCINES (3 - Td or Tdap) 05/10/2035 025, 08/07/2023 Pneumococcal Vaccine 50+ Completed 05/17/2024 ZOSTER VACCINE Completed 12/28/2024, 09/26/2024 INFLUENZA VACCINE Completed 08/02/2025, , 08/18/2022, Additional history exists Procedures Procedure Name Priority Date/Time Associated Diagnosis Comments REMOTE DEVICE CHECK 10/13/2025 2 :58 PM EST SCANNED - TELEMETRY 09/21/2025 1 1:59 AM EST CARDIAC CATHETERIZATION Routine 09/21/20 11:48 AM EST Coronary artery disease involving [place] coronary artery of [place] heart without angina pectoris Precordial pain SCANNED - TELEMETRY 09/21/2025 9 :52 AM EST SCANNED - TELEMETRY 09/21/2025 9 :52 AM EST HEMOGLOBIN A1C STAT 09/21/2025 9:34 AM EST LIPID PANEL STAT 09/21/2025 9:34 AM EST COMPREHENSIVE METABOLIC PANEL STAT 09/21/2025 9:34 AM EST CBC (NO DIFF) STAT 09/21/2025 9:34 AM EST MRI BRAIN WO CONTRAST Routine 08/25/2025 1:20 PM EDT ECHO COMPLETE W/ DOPPLER AND COLOR FLOW Routine 08/25/2025 11:51 AM EDT MAGNESIUM Routine 08/25/2025 9:19 AM EDT COMPREHENSIVE METABOLIC PANEL Routine 08/25/2025 9:19 AM EDT CBC WITH AUTO DIFFERENTIAL Routine 08/25/2025 9:19 AM EDT LIPID PANEL Routine 08/25/2025 9:19 AM EDT HEMOGLOBIN A1C Routine 08/25/2025 9:19 AM EDT POCT GLUCOSE FINGERSTICK Routine 08/24/2025 11:55 PM EDT CBC AND DIFFERENTIAL Routine 08/24/2025 7:10 PM EDT CBC WITH AUTO DIFFERENTIAL Routine 08/24/2025 7:10 PM EDT MAGNESIUM [...] OUTSIDE NECK Routine 08/23/2025 12:00 AM EDT REMOTE DEVICE CHECK 08/16/2025 2 :02 AM EDT from Last 3 Months Results * Telemetry Scan (09/21/2025 11:59 AM EST) Only the most recent of3 resultswithin the time period is included. [facility] ORDERABLES Final Result * LEFT [...] the right radial artery using standard 6 Estonian catheters. Borderline lesion in the RCA. Additional [...] CV CARDIAC CATH ORDERABLES Final Result * (ABNORMAL) CBC (No Diff) (09/21/2025 9:34 AM EST) [facility] WBC 8.32 3.40 - 10.80 10*3/mm3 09/21/2025 10:23 AM EST [facility] RBC 3.83 3.77 - 5.28 10*6/mm3 09/21/2025 10:23 AM EST [facility] Hemoglobin 11.7(L) 12.0 - 15.9 g/dL 09/21/2025 10:23 AM EST [facility] Hematocrit 36.1 34.0 - 46.6 % 09/21/2025 10:23 AM EST [facility] MCV 94.3 79.0 - 97.0 fL 09/21/2025 10:23 AM EST [facility] MCH 30.5 26.6 - 33.0 pg 09/21/2025 10:23 AM EST [facility] MCHC 32.4 31.5 - 35.7 g/dL 09/21/2025 10:23 AM EST [facility] RDW 13.8 12.3 - 15.4 % 09/21/2025 10:23 AM EST [facility] RDW-SD 47.8 37.0 - 54.0 fl 09/21/2025 10:23 AM EST [facility] MPV 11.8 6.0 - 12.0 fL 09/21/2025 10:23 AM EST [facility] Platelets 189 140 - 450 10*3/mm3 09/21/2025 10:23 AM EST [facility] Blood Line / Unknown 09/21/2025 9: 34 AM EST 09/21/2025 10:17 AM EST Denise Pandey APRN LAB BLOOD ORDERABLES Final Result [facility]
[address] [place] [address], * (ABNORMAL) Hemoglobin A1c (09/21/2025 9:34 AM EST) Only the most recent of2 resultswithin the time period is included. Hemoglobin A1C 5.82(H) 4.80 - 5.60 % 09/21/2025 11:09 AM EST [facility] Blood Line / Unknown 09/21/2025 9: 34 AM EST 09/21/2025 10:17 AM EST Narrative [facility] - 09/21/2025 11:09 AM EST Hemoglobin A1C Ranges: Increased Risk for Diabetes 5.7% to 6.4% Diabetes >= 6.5% Diabetic Goal < 7.0% Denise Pandey SHAKIRA LAB BLOOD ORDERABLES Final Result [facility]
[address] [place] [address], * Lipid Panel (09/21/2025 9:34 AM EST) Only the most recent of2 resultswithin the time period is included. Total Cholesterol 94 0 - 200 mg/dL 09/21/2025 10:45 AM EST [facility] Triglycerides 77 0 - 150 mg/dL 09/21/2025 10:45 AM EST [facility] HDL Cholesterol 40 40 - 60 mg/dL 09/21/2025 10:45 AM EST [facility] LDL Cholesterol 38 0 - 100 mg/dL 09/21/2025 10:45 AM EST [facility] VLDL Cholesterol 16 5 - 40 mg/dL 09/21/2025 10:45 AM EST [facility] LDL/HDL Ratio 0.97 09/21/2025 10:45 AM EST [facility] Blood Line / Unknown 09/21/2025 9: 34 AM EST 09/21/2025 10:17 AM EST [facility] - 09/21/2025 10:45 AM EST Cholesterol [...] Pandey APRN LAB BLOOD ORDERABLES Final Result [facility]
[address] [place] [address], * Comprehensive Metabolic Panel (09/21/2025 9:34 AM EST) Only the most recent of3 resultswithin the time period is included. Glucose 89 65 - 99 mg/dL 09/21/2025 10:45 AM EST [facility] BUN 15.5 8.0 - 23.0 mg/dL 09/21/2025 10:45 AM EST [facility] Creatinine 0.82 0.57 - 1.00 mg/dL 09/21/2025 10:45 AM EST [facility] Sodium 138 136 - 145 mmol/L 09/21/2025 10:45 AM EST [facility] Potassium 4.4 3.5 - 5.2 mmol/L 09/21/2025 10:45 AM EST [facility] Chloride 106 98 - 107 mmol/L 09/21/2025 10:45 AM EST [facility] CO2 22.9 22.0 - 29.0 mmol/L 09/21/2025 10:45 AM EST [facility] Calcium 9.6 8.6 - 10.5 mg/dL 09/21/2025 10:45 AM EST [facility] Total Protein 6.6 6.0 - 8.5 g/dL 09/21/2025 10:45 AM EST [facility] Albumin 3.6 3.5 - 5.2 g/dL 09/21/2025 10:45 AM EST [facility] ALT (SGPT) 20 1 - 33 U/L 09/21/2025 10:45 AM EST [facility] AST (SGOT) 28 1 - 32 U/L 09/21/2025 10:45 AM EST [facility] Alkaline Phosphatase 58 39 - 117 U/L 09/21/2025 10:45 AM EST [facility] Total Bilirubin 0.5 0.0 - 1.2 mg/dL 09/21/2025 10:45 AM [facility] Globulin 3.0 gm/dL 09/21/2025 10:45 AM EST [facility] Comment:Calculated Result A/G Ratio 1.2 g/dL 09/21/2025 10:45 AM EST [facility] BUN/Creatinine Ratio 18.9 7.0 - 25.0 09/21/2025 10:45 AM EST [facility] Anion Gap 9.1 5.0 - 15.0 mmol/L 09/21/2025 10:45 AM [facility] eGFR 76.1 >60.0 mL/min/1.7 3 09/21/2025 10:45 AM EST [facility] Blood Line / Unknown 09/21/2025 9: 34 AM EST 09/21/2025 10:17 AM EST [facility] - 09/21/2025 10:45 AM EST GFR [...] Pandey APRN LAB BLOOD ORDERABLES Final Result [facility]
[address] [id number], * MRI Brain Without Contrast (08/25/2025 1:20 PM EDT) Anatomical Region Laterality Modality Head, Neck N/A Magnetic Resonan ce 08/25/2025 8:00 PM EDT Impressions 08/25/2025 8:02 PM EDT Impression: Essentially normal noncontrast MRI of the brain. No evidence of recent infarct, hemorrhage, mass or mass effect. Electronically Signed: Garrett Roberson MD 08/25/2025 8:02 PM EDT Workstation ID: [id number] Narrative 08/25/2025 8:02 PM EDT MRI BRAIN [...] MD 08/25/2025 8:02 PM EDT Workstation ID: [id number] Marisol Pickens APRN IMG MRI ORDERABLES Final Re sult * ECHO COMPLETE W/ DOPPLER AND COLOR FLOW (08/25/2025 11:51 AM EDT) 2D AUTO EF 58.5 % LVIDd 3.9 cm LVIDs 2.8 cm IVSd 1.10 cm LVPWd 1.10 cm IVS/LVPW 1.00 cm LVOT area 3.5 cm2 LVOT diam 2.10 cm SVi (LVOT) 39.9 ml/m2 MV E max ken 100.0 cm/sec MV A max ken 80.2 cm/sec MV E/A 1.25 IVRT 63.0 ms LA ESV Index (BP) 31.5 ml/m2 Med Peak E' Ken 10.5 cm/sec Lat Peak E' Ken 10.4 cm/sec TR max ken 254 cm/sec Avg E/e' ratio 9.57 SV(LVOT) 68.6 ml RV Base 3.2 cm RV Mid 2.8 cm RV Length 5.9 cm TAPSE (>1.6) 2.10 cm RV S' 16.1 cm/sec LA dimension (2D) 3.9 cm LV V1 max 88.0 cm/sec LV V1 max PG 3.1 mmHg LV V1 mean PG 1.40 mmHg LV V1 VTI 19.8 cm Ao pk ken 126.0 cm/sec Ao max PG 6.4 mmHg [...] ASSESSMENT PERFORMED (HIDDEN SCRIPTING) 1 MR max ken 445 cm/sec RVSP(TR) 28 mmHg RAP systole [...] 20 mL of agitated saline was administered. us Marisol Pickens APRN CV ECHO ORDERABLES Final Re sult * (ABNORMAL) CBC Auto Differential (08/25/2025 9:19 AM EDT) Only the most recent of2 resultswithin the time period is included. WBC 4.93 3.40 - 10.80 10*3/mm3 08/25/2025 9:45 AM EDT [facility] RBC 3.89 3.77 - 5.28 10*6/mm3 08/25/2025 9:45 AM [facility] Hemoglobin 11.7(L) 12.0 - 15.9 g/dL 08/25/2025 9:45 AM [facility] Hematocrit 36.0 34.0 - 46.6 % 08/25/2025 9:45 AM EDT [facility] MCV 92.5 79.0 - 97.0 fL 08/25/2025 9:45 AM [facility] MCH 30.1 26.6 - 33.0 pg 08/25/2025 9:45 AM [facility] MCHC 32.5 31.5 - 35.7 g/dL 08/25/2025 9:45 AM [facility] RDW 13.5 12.3 - 15.4 % 08/25/2025 9:45 AM [facility] RDW-SD 45.3 37.0 - 54.0 fl 08/25/2025 9:45 AM [facility] MPV 11.9 6.0 - 12.0 fL 08/25/2025 9:45 AM [facility] Platelets 145 140 - 450 10*3/mm3 08/25/2025 9:45 AM EDT [facility] Neutrophil % 47.7 42.7 - 76.0 % 08/25/2025 9:45 AM [facility] Lymphocyte % 43.0 19.6 - 45.3 % 08/25/2025 9:45 AM [facility] Monocyte % 5.5 5.0 - 12.0 % 08/25/2025 9:45 AM [facility] Eosinophil % 2.8 0.3 - 6.2 % 08/25/2025 9:45 AM [facility] Basophil % 0.6 0.0 - 1.5 % 08/25/2025 9:45 AM EDT [facility] Immature Grans % 0.4 0.0 - 0.5 % 08/25/2025 9:45 AM EDT [facility] Neutrophils, Absolute 2.35 1.70 - 7.00 10*3/mm3 08/25/2025 9:45 AM EDT [facility] Lymphocytes, Absolute 2.12 0.70 - 3.10 10*3/mm3 08/25/2025 9:45 AM EDT [facility] Monocytes, Absolute 0.27 0.10 - 0.90 10*3/mm3 08/25/2025 9:45 AM EDT [facility] Eosinophils, Absolute 0.14 0.00 - 0.40 10*3/mm3 08/25/2025 9:45 AM EDT [facility] Basophils, Absolute 0.03 0.00 - 0.20 10*3/mm3 08/25/2025 9:45 AM EDT [facility] Immature Grans, Absolute 0.02 0.00 - 0.05 10*3/mm3 08/25/2025 9:45 AM EDT [facility] nRBC 0.0 0.0 - 0.2 /100 WBC 08/25/2025 9:45 AM EDT [facility] Blood Venipuncture / Unknown 08/25/2025 9:19 AM EDT 08/25/2025 9:32 AM EDT us Samantha Castillo DO LAB BLOOD ORDERABLES Final Res ult [facility]
[address] [place] [address], * Magnesium (08/25/2025 9:19 AM EDT) Only the most recent of2 resultswithin the time period is included. Magnesium 1.6 1.6 - 2.4 mg/dL 08/25/2025 10:23 AM EDT [facility] Blood Venipuncture / Unknown 08/25/2025 9:19 AM EDT 08/25/2025 9:31 AM EDT [facility] Harvinder Castillo DO LAB BLOOD ORDERABLES Final Res ult Performing Organization Address [facility]/ZIP Co de Phone Number [facility]
[address] [place] [address], * POC Glucose Once (08/24/2025 11:55 PM EDT) Only the most recent of2 resultswithin the time period is included. Glucose 119 70 - 130 mg/dL 08/24/2025 11:58 PM EDT [facility] Comment:Serial Number: [id number]: [id number] Blood 08/24/2025 11:5 5 PM EDT 08/24/2025 11:58 PM EDT Samantha Blanton Jonathan JANSEN POINT OF CARE TEST ORDERABLES Final Result Performing Organization Address [facility] de Phone Number [facility]
[address] [place] [address], * IMAGING SCANNED (08/24/2025) Only the most recent of3 resultswithin the time period is included. Anatomical Region Laterality Modality Radiographic Dayanara ging [facility] Onbase IMG DIAGNOSTIC IMAGING ORDERA BLES Final Result * CT Outside Head (08/23/2025 12:10 AM EDT) Only the most recent of2 resultswithin the time period is included. Narrative SYSTEMGENERATED, DOCUMENTATION - 08/24/2025 4:34 PM EDT This procedure was auto-finalized with no dictation required. [facility] Outside Films IMG CT ORDERABLES Final Re sult * CT Outside Neck (08/23/2025 12:00 AM EDT) Narrative SYSTEMGENERATED, DOCUMENTATION - 08/24/2025 4:25 PM EDT This procedure was auto-finalized with no dictation required. us [employer] Outside Films IMG CT ORDERABLES Final Re sult * Remote Device Check (08/16/2025 2:02 AM EDT) Date Time Interrogation Session [id number] PSYCHIATRIC RADIOLOGY Type Interrogation Session Remote Scheduled PSYCHIATRIC RADIOLOGY Implantable Pulse Generator [employer] [facility] PSYCHIATRIC RADIOLOGY Implantable Pulse Generator Type ICD [facility] Implantable Pulse Generator Model [id number] Kan(TM) PSYCHIATRIC RADIOLOGY Implantable Pulse Generator Serial Number [id number] PSYCHIATRIC RADIOLOGY Implantable Pulse Generator Implant Date [id number] PSYCHIATRIC RADIOLOGY Battery Remaining Percentage 69.00 % PSYCHIATRIC RADIOLOGY Battery Remaining Longevity 74.0 mo PSYCHIATRIC RADIOLOGY Battery Voltage 2.980 [facility] [place] [employer] RADIOLOGY Battery ANCHOR OPERATOR Trigger 2.620 PSYCHIATRIC RADIOLOGY Battery Status Middle of Service PSYCHIATRIC RADIOLOGY Capacitor Charge Time 8.600 PSYCHIATRIC RADIOLOGY Jus Statistic RA Percent Paced 17.00 PSYCHIATRIC RADIOLOGY Jus Statistic RV Percent Paced 1.00 PSYCHIATRIC RADIOLOGY Atrial Tachy Statistic AT/AF [place] Percent 0.00 PSYCHIATRIC RADIOLOGY Lead Channel RA Sensing Intrinsic Amplitude 3.000 PSYCHIATRIC RADIOLOGY Lead Channel Setting RA Sensing Sensitivity 0.30 PSYCHIATRIC RADIOLOGY Lead Channel RA Impedance Value 440 PSYCHIATRIC RADIOLOGY Lead Channel RA Pacing Threshold Amplitude 0.500 [facility] [place] RADIOLOGY Lead Channel RA Pacing Threshold Pulse Width 0.5 PSYCHIATRIC RADIOLOGY Lead Channel RA Measurements Date and Time [id number] PSYCHIATRIC RADIOLOGY Lead Channel Setting RA Pacing Amplitude 2.000 PSYCHIATRIC RADIOLOGY Lead Channel Setting RA Pacing Pulse Width 0.5 PSYCHIATRIC RADIOLOGY Lead [facility] RV Sensing Intrinsic Amplitude 11.400 PSYCHIATRIC RADIOLOGY Lead Channel Setting RV Sensing Sensitivity 0.50 [facility] [place] [facility] Lead [facility] RV Impedance Value 730 PSYCHIATRIC RADIOLOGY Lead Channel Setting RV Pacing Amplitude 2.500 PS[facility]CHIATRIC RADIOLOGY Lead [facility] Setting RV Pacing Pulse Width 0.5 PSYCHIATRIC RADIOLOGY Jus Setting Mode (NBG Code) DDDR PSYCHIATRIC RADIOLOGY Jus Setting Lower Rate Limit 60 PSYCHIATRIC RADIOLOGY Jus Setting AT Mode Switch Rate 180 PSYCHIATRIC RADIOLOGY Jus Setting Maximum Tracking Rate 90 PSYCHIATRIC RADIOLOGY Jus Setting Maximum Sensor Rate 110 PSYCHIATRIC RADIOLOGY Jus Setting PAV Delay 250 PSYCHIATRIC RADIOLOGY Jus Setting REY Delay 250 PSYCHIATRIC RADIOLOGY Therapy Statistic Recent Shocks Delivered 0 PSYCHIATRIC RADIOLOGY Therapy Statistic Recent Shocks Aborted 0 PSYCHIATRIC RADIOLOGY Therapy Statistic Recent ATP Delivered 0 PSYCHIATRIC RADIOLOGY SHOCK MEASURED IMPEDANCE 62 PSYCHIATRIC RADIOLOGY Lead Channel Setting RA Sensing Polarity Bipolar PSYCHIATRIC RADIOLOGY Lead Channel Setting RV Sensing Polarity Bipolar PSYCHIATRIC RADIOLOGY Lead Channel Setting RA Pacing Polarity Bipolar PSYCHIATRIC RADIOLOGY Lead Channel Setting RV Pacing Polarity Bipolar PSYCHIATRIC RADIOLOGY Lead Channel RA Pacing Threshold Polarity Bipolar PSYCHIATRIC RADIOLOGY Lead Channel RV Pacing Threshold Polarity Bipolar PSYCHIATRIC RADIOLOGY Zone Setting Type Category VT PSYCHIATRIC RADIOLOGY IDC RATE 1 141 PSYCHIATRIC RADIOLOGY Zone Setting Status On PSYCHIATRIC RADIOLOGY Zone ID 1 PSYCHIATRIC RADIOLOGY Zone Setting Type Category VT PSYCHIATRIC RADIOLOGY IDC RATE 1 171 PSYCHIATRIC RADIOLOGY THERAPIES 4 x Burst+Scan,25.0J,3 4.0J,40.0J x 2 PSYCHIATRIC RADIOLOGY Zone Setting Status On PSYCHIATRIC RADIOLOGY Zone ID 2 PSYCHIATRIC RADIOLOGY Zone Setting Type Category VF PSYCHIATRIC RADIOLOGY IDC RATE 1 222 PSYCHIATRIC RADIOLOGY THERAPIES 30.0J,40.0J,40.0J x 4 PSYCHIATRIC RADIOLOGY Zone Setting Status On PSYCHIATRIC RADIOLOGY Zone ID 3 PSYCHIATRIC RADIOLOGY 08/16/2025 2:02 AM EDT us Dinorah Christiansen MD CV IMPLANTABLE CARDIAC DEVIC E Final Result [facility] from Last 3 Months Insurance MEDICARE B ONLY [place]ICAID [place] Member Subscriber Plan / Payer (Ef fective 2025-Present) Name:Chaparrita Perkins Relation to Subscriber:Self Name:Chaparrita Perkins Payer ID:[id number] Group ID:Not on file Type:Not on file Address: [address] [place] [id number] Advance Directives * CPR (Attempt to Resuscitate) (Latest Code Status on File) Date Activated Date Inactivated Comments 08/24/2025 3:43 PM 08/27/2025 3:11 PM Question Answer Comments Code Status (Patient has no pulse and is not breathing): CPR (Attempt to Resuscitate) Medical Interventions (Patie nt has pulse or is breathing): Full Support Level Of Support Discussed With: Patient 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
--- OUTSIDE RECORDS SUMMARY | 2025-10-24 13:04 | XMS_ITS | Encounter Summary ---
Author Organization [employer] ([place], [place], [place], [place], [place]) Address [address] [place] [address] Care Team Providers Care Instructor Ground Services Name Role Phone Marly Kumar BANKING SUPERVISOR Primary Care Provider [phone] Encounter Details Date Type Department Care Team (Late st Contact Info) Description 07/28/[address] [facility] [place] [facility] [address] ProviderMiya MD [address] [place] [address] Social History Tobacco Use Types Packs/Day [...] Miya ProviderMD - 07/28/2020 10:08 AM CDT [address] [place] [address] Patient Copy Patient Information: Name: RENNY VILLA Current Date: 07/28/2020 10:08:21 : 1955 Patient Address: [address] [facility] [address] Patient Attending Physician: YADI SIDDIQI MD-LALITO Primary Care Provider: MARIE OMER (REF), ALEJA Primary Care Provider Discharge Diagnosis: Abnormal electroencephalogram (EEG); Localization-related (focal) (partial) idiopathic epilepsy and epileptic syndromes with seizures of localized onset, intractable, without status epilepticus Comment: Follow-up Instructions: With: Address: When: YADI SIDDIQI [address] [place] [address], [address] [place] [address] Business (1) Within 6 months Discharge Instructions: [...] Oral Every Day. fluticasone nasal (Flonase) 1 [place](s) Nostrils Both Every Day. furosemide (Lasix 40 [...] Assistance with quitting is available by contacting 3-906-OYDN-NOW. This is a free resource providing counseling, [...] Be sure to sign up for the [facility] patient portal, which gives you 25/05 access to your medical information ??? including these discharge instructions ??? using your computer, smartphone, or tablet. Just go to [employer] to get started. Questions? Call . [facility] would like to thank you for allowing us to assist you with your healthcare needs. DAISY Richter JACKQUELINE F, (or inbound sales representative) have received the above patient education materials/instructions and have verbalized understanding: Patient Signature _ Date/Time Patient Kiln Remover Signature (if needed) Date/Time Clinician/Hospital Kiln Remover Signature (if needed) Date/Time documented in this encounter Plan of Treatment Not on file documented as of this encounter Visit Diagnoses Not on filedocumented in this encounter Care Teams Instructor Ground Services Relationship Specialty Start Date End Date Marly Kumar, DUNG [address] [place] [address] PCP - General Nurse Practitioner 09/22/24 documented as of this encounter
--- OUTSIDE RECORDS SUMMARY | 2025-10-24 13:04 | XMS_ITS | Encounter Summary ---
Author Organization Healthcare Address [address] [place] [address] Care Team Providers Care Cancer Registrar Name Role Phone Jessie Payne APRN Unavailable Marly Gomez APRN Primary Care Provider [phone] Encounter Details Date Type Department Care Team (Late st Contact Info) Description 10/23/2025 Telephone PAV Breast Care Center [facility] [address] [address] [facility] Social History Tobacco Use Types Packs/Day Years [...] drink first t zander in the morning (EYE-CUFF PRESSER) to steady your nerves or to get [...] Description 11/23/2025 9:00 AM EST Appointment PAV [facility] [address] [address] 11/23/2025 9:30 AM EST Appointment P[place] [address] [address] [address] 11/23/2025 1:00 PM EST Appointment P[facility] [place] [address] [address] [address] documented as of this encounter Visit Diagnoses [...] documented as of this encounter Care Teams Cancer Registrar Relationship Specialty Start Date End Date Marly Kumar APRN [address] [place] [address] PCP - General 06/09/25 Jessie Payne APRN 08/07/23 documented as of this encounter
--- OUTSIDE RECORDS SUMMARY | 2025-10-24 13:04 | XMS_ITS | Encounter Summary ---
Author Organization [employer] ([place], [place], [place], [place], [place]) Address [address] [place] [address] Care Team Providers Care Transportation Clerk Name Role Phone Marly Kumar RADIOPHONE OPERATOR Primary Care Provider [phone] Encounter Details Date Type Department Care Team (Late st Contact Info) Description 07/28/2020 Transcribed Document [facility] [place] [address] ProviderMiya MD [address] [place] [address] Social History Tobacco Use Types Packs/Day [...] on filedocumented in this encounter Care Teams Transportation Clerk Relationship Specialty Start Date End Date Marly Kumar, DUNG [address] [place] [address] PCP - General Nurse Practitioner 09/22/24 documented as of this encounter
--- OUTSIDE RECORDS SUMMARY | 2025-10-24 13:04 | XMS_ITS | Referral Summary ---
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); Nonepileptic episode (HCC) from Last 3 Months Allergies Active Allergy [...] 10/06/2024 Pacemaker 10/06/2024 Other supraventricular tachycardia 10/06/2024 AL (myocardial infarction) 10/06/2024 Gastroesophageal reflux disease 10/06/2024 [...] 10/11/2025 9:55 AM EST Plan of Treatment Not on file Medical Devices Implanted Type Area Media Job Titles Device Identifier Shelf Expiration Date Model / Serial / Lot Iol Uv Clareon +21.5 [id number] - [id number] Implanted:Qty: 1 on 09/22/2024 by Urmila So MD at [facility] IMPLANTS Left: Eye GUS 09/24/2027 [id number] / [id number] / Iol Uv Clareon +22.0 [id number] - [id number] Implanted:Qty: 1 on 10/06/2024 by Urmila So MD at [facility] IMPLANTS Right: Eye GUS 08/05/2027 [id number] / [id number] / Insurance MEDICARE PART B ONLY MEDICAID OF [place] Care Teams District Traffic Chief Relationship Specialty Start Date End Date Marly Kumar NP [address] [place] [address] PCP - General Nurse Practitioner 09/22/24
--- OUTSIDE RECORDS SUMMARY | 2025-10-24 13:04 | XMS_ITS | Encounter Summary ---
[facility] Address [address] [place] [address] Care Team Providers Care Nurse Monitoring Name Role Phone Marly Kumar SHAKIRA Primary Care Provider [phone] Encounter Details Date Type Department Care Team (Late st Contact Info) Description 08/29/2025 Readmission Management [facility] [address] [place] [phone] Liliane Dwyer, TIM Social History Tobacco Use Types Packs/Day Years [...] encounter Miscellaneous Notes * Outreach Note - Liliane Dwyer RN - 08/29/2025 9:19 AM EDT Images from the original note were not included. Medical Week 1 Survey Flowsheet Row Responses [facility] patient discharged from? [facility] Does the patient have one of the following disease processes/diagnoses(primary or secondary)? Other Week 1 attempt successful? Yes [No PCP VR] Call start time [phone] Call end time [phone] Discharge diagnosis Right facial numbness Medication alerts for this patient Pt has assistance with her medications per pt report. Meds reviewed with patient/caregiver? Yes Is the patient having any side effects they believe may be caused by any medication additions or changes? No Does the patient have all medications ordered at discharge? Yes Is the patient taking all medications as directed (includes completed medication regime)? Yes Does the patient have a primary care provider? Yes Does the patient have an appointment with their PCP within 7 days of discharge? Yes Comments Pt has appt with the [facility] Nov 09, 2025 per pt report. What is the Home health agency? [facility] Has home health visited the patient within 72 hours of discharge? Yes Home health comments Pt attends Adult Day Care 4x/week, won't see pt since she is not consideredhome bound, per pt's report What DME was ordered? rolling walker Has all DME been delivered? Yes Comments Pt c/o ongoing numbness on Right side of body, R. facial droop remains most noticable at R. eye. Pt reports having some difficulty swallowing r/t possible preexisting issue, she has appt with GI in 1mo.Pt was DC advised to follow Soft Chew, chopped meat diet, pt v/u. Pt has noticed drooling out of R. side of mouth at rest. R. hand remains numb but able to hold light wt objects, and she is able to use the hand, reports that it just takes longer to do actions. Pt requires assistance withshowering r/t previous medical issues, she reports. Pt is now ambulating with walker, which is new for this pt, per her reports. Did the patient receive a copy of their discharge instructions? Yes Nursing interventions Reviewed instructions with patient What is the patient's perception of their health status since discharge? Same Is the patient/caregiver able to teach back signs and symptoms related to disease process for when to call PCP? Yes Is the patient/caregiver able to teach back signs and symptoms related to disease process for when to call 911? Yes If the patient is a current smoker, are they able to teach back resources for cessation? Not a smoker Additional teach back comments RN reviewed BEFAST with pt, pt v/u Week 1 call completed? Yes Call end time [phone] Liliane Kellogg - Registered Nurse documented in this encounter Plan of Treatment Upcoming Encounters Date Type Department Care Team (Late st Contact Info) Description 10/31/2025 9:00 AM EST Office Visit [facility] CARDIOLOGY [address] [place] [address] Nereida Ambrose APRN [address] [place] [address] 11/13/2025 2:30 PM EST Office Visit [facility] NEUROLOGY [address] [facility] [address] [place] [address] Camille Spann APRN [address] [facility] [address] [address] 02/09/2026 2:15 PM EDT Office Visit [facility] GASTROENTEROLOGY [address] [facility] [address] [place] [phone] Shahla Troy PA-C [address] [facility] [address] [place] [address] documented as of this encounter Visit Diagnoses Not on filedocumented in this encounter Care Teams Nurse Monitoring Relationship Specialty Start Date End Date José, Marly Briceno APRN [address] [place] [address] PCP - General Family Medicine 07/06/24 documented as of this encounter
--- OUTSIDE RECORDS SUMMARY | 2025-10-24 13:04 | XMS_ITS | Encounter Summary ---
Author Organization [employer] ([place], [place], [place], [place], [place]) Address [address] [place] [address] Care Team Providers Care Criminal Judge Name Role Phone Marly Kumar COTTON INSPECTOR Primary Care Provider [phone] Encounter Details Date Type Department Care Team (Late st Contact Info) Description 07/28/2020 Transcribed Document [facility] [place] Family [place] [address] ProviderMiya MD [address] [place] [address] Social History Tobacco Use Types Packs/Day [...] On: 07/28/2020 13:07 EDT by JENNIFER TRUJILLO RN-Researcher Final Discharge Planning Discharge Arrangements : Patient Post-Acute Information Patient Name: RENNY VILLA Gender: Female : [birth year] Age: 64 Years No Post-Acute Placement(s) Listed No Post-Acute Service(s) Listed No [place] Referral(s) Listed Patient Offered Choice/Affiliations Explained : No Discharge Transportation Arrangement Cmt : [facility] transportation Follow Up Appointment Scheduled : No (Comment: List of appointments sent to Patient Access Center [JENNIFER TRUJILLO RN-Researcher - 07/28/2020 13:07 EDT] ) Is Patient High/Moderate Readmission Risk? : No Patient/Family Notified of Plan : Yes Is Patient Ready for Discharge? : Yes Physician Notified Patient is Ready for Discharge? : Yes Discharge To Care Management : SNF with Medicare Certification-03 JENNIFER TRUJILLO RN-Researcher - 07/28/2020 13:07 EDT Final Narrative Note Final Narrative Note : Discharged back to [facility]. Transportation by [facility] JENNIFER TRUJILLO RN-Researcher - 07/28/2020 13:07 EDT Electronically signed by Klaus Sprague Conversion Cracking [employer] Fanning Machine Operator Cerner at 02/19/2023 6:43 PM CDT documented in this encounter Plan of Treatment Not on file documented as of this encounter Visit Diagnoses Not on filedocumented in this encounter Care Teams Criminal Judge Relationship Specialty Start Date End Date Marly Kumar, DUNG [address] [place] [address] PCP - General Nurse Practitioner 09/22/24 documented as of this encounter
--- NOTE | 2025-10-24 13:08 | XR_ITS ---
FINAL REPORT CLINICAL HISTORY: right hand pain COMPARISON: None FINDINGS: Three views of the right knee hand show no evidence of acute displaced fracture or dislocation of the visualized bony architecture. The joint spaces appear normal. IMPRESSION: Unremarkable exam. Reviewed, Interpreted and Dictated by Kimberley Franklin MD Transcribed by Jazzmine Colindres Authenticated and [facility]
--- NOTE | 2025-10-24 13:08 | XR_ITS ---
FINAL REPORT CLINICAL HISTORY: right wrist pain COMPARISON: None FINDINGS: RIGHT WRIST THREE VIEW FINDINGS: Three views show no evidence of an acute, displaced fracture or dislocation of the visualized bony architecture. The joint spaces appear normal. IMPRESSION: Unremarkable exam. Reviewed, Interpreted and Dictated by Kimberley Franklin MD Transcribed by Jazzmine Colindres Authenticated and [facility]
== END 2025-10-24 23:59 ==
LOC: RAD 13:00
PROVIDERS: PCP Nurse Practitioner Family; Visit Provider Student in an Organized Health Care Education/Training Program
DX: G56.01 Carpal tunnel syndrome, right upper limb (principal); M79.641 Pain in right hand
CPT/HCPCS: 73110; 73130

== ENCOUNTER 2025-10-28 10:16 | Emergency (ER) | payer MEDICARE, MEDICAID, SELFPAY ==
--- OUTSIDE RECORDS SUMMARY | 2025-09-11 14:00 | XMS_ITS | Encounter Summary ---
Author Organization [facility] Address [address] [place] [address] Care Team Providers Care Agricultural Systems Specialist Name Role Phone Marly Kumar Kaity ROSENBERG Primary Care Provider [phone] Reason for Visit * Reason Comments Coronary Artery Disease Hypertension Pacemaker Check Encounter Details Date Type Department Care Team (Latest Contact Info) Description 09/11/2025 2:00 PM EST Office Visit [facility] [address] [place] [address] Nereida Ambrose APRN [address] [place] [address] Automatic implantable cardiac defibrillator in situ [Z95.810] (Primary Dx); Coronary artery disease involving redding coronary artery of redding heart without angina pectoris; Hypertension, essential; Mixed hyperlipidemia; Precordial pain; Bilateral lower extremity edema Social History Tobacco Use Types Packs/Day [...] Sign Reading Time Taken Comments Blood Pressure 122/76 09/11/2025 12:58 PM EST Pulse 75 09/11/2025 12:58 PM EST Temperature - - Respiratory Rate - - Oxygen Saturation 96% 09/11/2025 12:58 PM EST Inhaled Oxygen Concentration - - Weight 75.3 kg (166 lb) 09/11/2025 12:58 PM EST Height 149.9 cm (4' 11 ) 09/11/2025 12:58 PM EST Body Mass Index 33.53 09/11/2025 12:58 PM EST documented in this encounter Progress Notes * Nereida Ambrose APRN - 09/11/2025 2:00 PM ESTAssociated Problem(s): Automatic implantable cardiac defibrillator in situ * Nereida Ambrose APRN - 09/11/2025 2:00 PM ESTAssociated Problem(s): Coronary artery disease involving redding coronary artery of redding heart with out angina pectoris {Coronary Artery Disease (OPTIONAL):02094} Orders: Basic Metabolic Panel; Future Case Request Switch Engineer: Left Heart Cath with Cors and SVG's, Left Heart Cath CBC Auto Differential; Future * Nereida Ambrose APRN - 09/11/2025 2:00 PM ESTAssociated Problem(s): Hypertension, essential {Hypertension is (optional):8425620966} * Nereida Ambrose APRN - 09/11/2025 2:00 PM ESTAssociated Problem(s): Mixed hyperlipidemia {Hyperlipidemia A/P Block (Optional):0981125373} * Nereida Ambrose APRN - 09/11/2025 2:00 PM ESTAssociated Problem(s): Precordial pain Orders: Basic Metabolic Panel; Future Case Request Switch Engineer: Left Heart Cath with Cors and SVG's, Left Heart Cath CBC Auto Differential; Future * Nereida Ambrose APRN - 09/11/2025 2:00 PM EST Images from the original note were not included. [facility] Provider Note Date: 09/11/2025 Name: Mu Perkins : 1955 PCP: Marly Kumar APRN Chief Complaint Patient presents with Coronary Artery Disease Hypertension Pacemaker Check Subjective History of Present Illness Mu Perkins is a 70 y.o. female who presents today for 4 month follow up of Pacemaker check. Patient with history of coronary artery disease, hypertension, hyperlipidemia, and pacemaker. Pt went to the ER and was hospitalized at [facility] on 08/24/2025, pt had right facial droopiness.CT head showed hypo-attenuation in the right thalamus that does not correlate with patient's symptoms. MRI negative, echo EF 56 to 60% with normal ventricular cavity size, left ventricular wall thicknessconsistent with hypertrophy. Aortic valve abnormal in structure without regurgitation or stenosis. Mild calcification of the aortic valve mainly affecting the right coronary cusps. Mild MVR, mild TVR, normal pulmonary valve structure with no regurgitation or stenosis. No indication for DAPT per neurology perspective continue aspirin, atorvastatin. Nuclear Stress Test on 06/01/2025 was abnormal that revealed anteroseptal and anterior basilar defect consistent with ischemia. Intermediate risk study. States she has chest pain almost everyday. States the pain has worsened since last visit. States pain is worse when she is up moving around. Stateshas occasional shortness of breath. Denies any dizziness. Has chronic swelling in her lower extremities. Recent lab work on 08/25/2025 revealed LDL 46, triglycerides 123, and total cholesterol 117. Hyperlipidemia managed with atorvastatin 40 mg daily and fenofibrate 245 mg daily. Cardiac and sleep related history 1. Ischemic cardiomyopathy -Dual-chamber defibrillator [facility]. 2. CAD -LHC 02/25/2016 LAD stents patent x 2, 40% RCA 3. ZULEYKA AHI 10 on BiPAP with oxygen 4. CVA 5. COPD 6. Seizure disorder 08/24/2025 ECHO - ejection fraction appears to be 56 - 60%. ?? Left ventricular wall thickness is consistent with hypertrophy. ?? Saline test results are negative. ?? There is mild calcification of the aortic valve mainly affecting the right coronary cusp(s). Estimated right ventricular systolic pressure from tricuspid regurgitation is normal (<35 mmHg). 06/01/2025 Nuclear Stress Test- Per Dr. Christiansen stress test was abnormal but it was a poor quality study and only recommends a left heart cath if patient starts to have worsening symptoms. - Anteroseptal and anterior basilar defect consistent with ischemia. Intermediate risk study. Allergies Allergen Reactions Alendronate Sodium Hives Gabapentin Irritability Penicillins Hives, Itching and Unknown - Low Severity Sulfa Antibiotics Unknown - Low Severity Tamsulosin Other (See Comments) Sick to stomach Current Outpatient Medications: acetaminophen (TYLENOL) 325 MG tablet, Take 2 tablets by mouth Every 6 (Six) Hours As Needed for Mild Pain., Disp: , Rfl: albuterol sulfate HFA (Ventolin HFA) 108 (90 Base) MCG/ACT inhaler, Inhale 2 puffs 4 (Four) Times aDay., Disp: , Rfl: aspirin 81 MG EC tablet, Take 1 tablet by mouth Daily., Disp: , Rfl: atorvastatin (LIPITOR) 40 MG tablet, Take 1 tablet by mouth every night at bedtime., Disp: , Rfl: bisoprolol (ZEBeta) 5 MG tablet, TAKE 1 TABLET BY MOUTH DAILY, Disp: 90 tablet, Rfl: 0 budesonide-formoterol (SYMBICORT) 160-4.5 MCG/ACT inhaler, Inhale 2 puffs 2 (Two) Times a Day., Disp: , Rfl: calcium carb-cholecalciferol 600-10 MG-MCG tablet per tablet, Take 1 tablet by mouth Daily., Disp: , Rfl: fenofibrate (TRICOR) 145 MG tablet, Take 1 tablet by mouth Daily., Disp: , Rfl: furosemide (LASIX) 40 MG tablet, Take 1 tablet by mouth 2 (Two) Times a Day., Disp: 180 tablet, Rfl: 1 HYDROcodone-acetaminophen (NORCO) 5-325 MG per tablet, Take 1 tablet by mouth Every 4 (Four) Hours As Needed for Moderate Pain., Disp: , Rfl: hydrOXYzine (ATARAX) 25 MG tablet, Take 1 tablet by mouth Every 6 (Six) Hours As Needed., Disp: , Rfl: lactulose (CHRONULAC) 10 GM/15ML solution, Take 30 mL by mouth Daily., Disp: , Rfl: levETIRAcetam (KEPPRA) 1000 MG tablet, Take 1 tablet by mouth 2 (Two) Times a Day., Disp: , Rfl: levothyroxine (SYNTHROID, LEVOTHROID) 88 MCG tablet, Take 1 tablet by mouth Daily., Disp: 30 tablet, Rfl: 0 loratadine (CLARITIN) 10 MG tablet, Take 1 tablet by mouth Daily., Disp: , Rfl: magnesium oxide (MAG-OX) 400 MG tablet, TAKE ONE TABLET BY MOUTH EVERY DAY, Disp: 90 tablet, Rfl: 3 mirtazapine (REMERON) 30 MG tablet, Take 1 tablet by mouth every night at bedtime., Disp: , Rfl: nitroglycerin (NITROSTAT) 0.4 MG SL tablet, 1 under the tongue as needed for angina, may repeat q5mins for up three doses, Disp: 25 tablet, Rfl: 5 nystatin (MYCOSTATIN) 352121 UNIT/GM cream, Apply 2 applications topically daily to affected areas as needed, Disp: , Rfl: omeprazole (priLOSEC) 40 MG capsule, Take 1 capsule by mouth Daily., Disp: , Rfl: ondansetron (ZOFRAN) 4 MG tablet, Take 1 tablet by mouth Every 8 (Eight) Hours As Needed., Disp: , Rfl: potassium chloride 10 MEQ CR tablet, Take 1 tablet by mouth 2 (Two) Times a Day., Disp: 60 tablet, Rfl: 6 [...] Currently Drug use: Never Sexual activity: Defer Objective Vital Signs: BP 122/76 Pulse 75 Ht 149.9 cm (59 ) Wt 75.3 kg (166 lb) SpO2 96% BMI 33.53 kg/m?? Estimated body mass index is 33.53 kg/m?? as calculated from the following: Height as of this encounter: 149.9 cm (59 ). Weight as of this encounter: 75.3 kg (166 lb). BMI is >= 30 and <35. (Class 1 Obesity). The following options were offered after discussion;: exercise counseling/recommendations and nutrition counseling/recommendations Physical Exam Constitutional: Appearance: Normal appearance. She is well-developed. HENT: Head: Normocephalic and atraumatic. Cardiovascular: Rate and Rhythm: Normal rate and regular rhythm. Heart sounds: Normal heart sounds. No murmur heard. Comments: Pt with ICD Pulmonary: Breath sounds: Normal breath sounds. No wheezing or rhonchi. Musculoskeletal: Comments: Chronic lower extremity edema Walks with Walker Skin: Capillary Refill: Capillary refill takes less than 2 seconds. Coloration: Skin is not cyanotic. Nails: There is no clubbing. Neurological: Mental Status: She is alert and oriented to person, place, and time. Motor: No weakness. Gait: Gait normal. Psychiatric: Mood and Affect: Mood normal. Behavior: Behavior is cooperative. Thought Content: Thought content normal. Assessment and Plan Assessment & Plan Automatic implantable cardiac defibrillator in situ [Z95.810] Coronary artery disease involving redding coronary artery of redding heart without angina pectoris Orders: Basic Metabolic Panel; Future Case Request Switch Engineer: Left Heart Cath with Cors and SVG's, Left Heart Cath CBC Auto Differential; Future Hypertension, essential Mixed hyperlipidemia Precordial pain Orders: Basic Metabolic Panel; Future Case Request Switch Engineer: Left Heart Cath with Cors and SVG's, Left Heart Cath CBC Auto Differential; Future Bilateral lower extremity edema Pacemaker - Pacemaker with good battery life and lead function. No events noted. 2. Coronary Artery Disease Nuclear Stress Test on 06/01/2025 was abnormal that revealed anteroseptal and anterior basilar defect consistent with ischemia. Intermediate risk study. States she has chest pain almost everyday. States the pain has worsened since last visit. - Since chest pain has worsened will move forward with [facility]. To have CBC and BMP prior. - Continue aspirin 81 mg daily, bisoprolol 5 mg daily, atorvastatin 40 mg daily, and fenofibrate 145 mg daily 3. Hypertension - BP stable 122/76 - Continue Bisoprolol 5mg daily 4. Hyperlipidemia - Recent lab work on 08/21/2025 revealed LDL 46, total cholesterol 117, triglycerides 123 - Continue Lipitor 40 mg daily and fenofibrate 145 mg daily 5. Chest pain - Nuclear Stress Test on 06/01/2025 was abnormal that revealed anteroseptal and anterior basilar defect consistent with ischemia. Intermediate risk study. States she has chest pain almost everyday. States the pain has worsened since last visit. - Order for [facility] 6. Lower Extremity Edema - Continue Lasix 40mg daily Recommendations: ER if symptoms increase, Report if any new/changing symptoms immediately, Limit salt, Elevate legs, Compression hose, and Limit caffeine Follow Up Return in about 6 weeks (around 10/23/2025) for Follow up after heart cath. Nereida Ambrose APRN Cardiology and Sleep [facility] 09/11/2025 Please note that this explicitly excludes time spent on other separate billable services such as performing procedures or test interpretation, when applicable. documented in this encounter Plan of Treatment Upcoming Encounters Date Type Department Care Team (Late st Contact Info) Description 10/31/2025 9:00 AM EST Office Visit [facility] [address] [place] [address] Nereida Ambrose APRN [address] [place] [address] 11/13/2025 2:30 PM EST Office Visit [facility] NEUR[facility] [address] [place] [address] [place] [id number] Camille Spann APRN [address] [facility] [address] [address] 02/09/2026 2:15 PM EDT Office Visit [facility] [address] [facility] [address] [place] [id number] Shahla Troy PA-C [address] [place], [place] [id number] documented as of this encounter Visit Diagnoses Diagnosis Automatic implantable cardiac defibrillator in situ [Z95.810]- Primary Automatic implantable cardiac defibrillator in situ Coronary artery disease involving redding coronary artery of redding heart without angina pectoris Hypertension, essential Unspecified essential hypertension Mixed hyperlipidemia Precordial pain Bilateral lower extremity edema documented in this encounter Care Teams Agricultural Systems Specialist Relationship Specialty Start Date End Date Marly Kumar APRN [address] [place] [id number] PCP - General Family Medicine 07/06/24 documented as of this encounter
--- OUTSIDE RECORDS SUMMARY | 2025-09-21 09:03 | XMS_ITS | Encounter Summary ---
[facility] Organization [facility] Address [address] [place] [address] Care Team Providers Care Telephone Answerer Name Role Phone JoséMarly APRN Primary Care Provider [phone] Reason for Referral * Diagnostic Medical (Routine) - Pending Review Specialty Diagnoses / Procedures Referred By Nubia dawkins Referred To Contact Diagnoses Coronary artery disease involving [place] coronary artery of [place] heart without angina pectoris Precordial pain Procedures Cardiac Catheterization/Vascular Study Nereida Ambrose APRN [address] [place] [address] Phone: tel: fax: Referral ID Status Reason Start Date Expiration Date V isits Requested Visits Authorized [id number] Pending Review 09/12/2025 12/12/2026 1 1 Reason for Visit * Auth/Cert Specialty Diagnoses / Procedures Referred By Nubia dawkins Referred To Contact Diagnoses Coronary artery disease involving [place] coronary artery of [place] heart without angina pectoris Precordial pain Procedures SD CATH PLMT L HRT & ARTS W/NJX & ANGIO IMG S&I Left Heart Cath Referral ID Status Reason Start Date Expiration Date Visits Re quested Visits Authorized [id number] 1 1 Encounter Details Date Type Department Care Team (Late st Contact Info) Description 09/21/2025 9:03 AM EST - 09/21/2025 3:54 PM EST Hospital Encounter [address] [id number] Justin Moses MD [address] [facility] [address] [place] [address] Coronary artery disease involving [place] coronary artery of [place] heart without angina pectoris; Precordial pain Discharge Disposition: Home or Self Care Social History Tobacco Use Types Packs/Day Years Used Date Smoking Tobacco: Former Cigarettes Passive Smoke Exposure: Past Smokeless Tobacco: Never Alcohol Use Standard Drinks/Week Comments Not Currently 0 (1 standard drink = 0.6 oz pur e alcohol) AUDIT-C Answer Date Recorded Q1: How often do you have a drink containing alcohol? Never 09/21/2025 Q2: How many drinks containi ng alcohol do you have on a typical day when you are drinking? Patient does not drink Q3: How often do you have si x or more drinks on one occasion? Never 09/21/2025 Abuse Screen Answer Date Recorded Feels Unsafe at Home or Work/School no 09/21/2025 Feels Threatened by Someone no 09/03 Does Anyone Try to Keep You From Having Contact with Others or Doing Things Outside Your Home? no 09/21/2025 Physical Signs of Abuse Present no 09/21/2025 Housing Stability Answer Date Recorded Current Living Arrangements home 09/03 Potentially Unsafe Housing Conditions Not on kymberly e 09/21/2025 Disabilities Answer Date Recorded Difficulty Concentrating, Remembering or Making Decisions no 09/21/2025 Difficulty Managing Errands Independently yes 09/21/2025 Comments Unknown Sex and Gender Information Value Date Recorded Sex Assigned at Not on file Legal Sex Female 10:34 AM EDT Gender Identity Not on file Sexual Orientation Not on file documented as of this encounter Last Filed Vital Signs Vital Sign Reading Time Taken Comments Blood Pressure 127/74 09/21/2025 3:30 PM EST Pulse 66 09/21/2025 3:30 PM EST Temperature 36.7 C (98 F) 09/21/2025 9:20 AM EST Respiratory Rate 18 09/21/2025 12:00 PM EST Oxygen Saturation 95% 09/21/2025 3:30 PM EST Inhaled Oxygen Concentration - - Weight 75.6 kg (166 lb 9.6 oz) 09/21/2025 9:20 A M EST Height 152.4 cm (5') 09/21/2025 9:20 AM EST Body Mass Index 32.54 09/21/2025 9:20 AM EST documented in this encounter Functional Status * Malnutrition Screening Tool Question Answer Date of Assessment Author Have you recently lost weigh t without trying? If yes, how much weight have you lost? 0--> No 09/21/2025 9:30 AM Shelley Palacios RN Have you been eating poorly because of a decreased appetite? 0--> No 09/21/2025 9:30 AM Shelley Palacios RN MST score 0 09/21/2025 9:30 AM Shelley Palacios RN * How much help from another person do you currently need... Question Answer Date of Assessment Author Turning from your back to your side while in flat bed without using bedrails? 4 09/21/2025 9:30 AM Shelley Palacios RN Standing up from a chair using your arms (e.g., wheelchair, bedside chair)? 3 09/21/2025 9:30 AM Shelley Palacios RN Moving from lying on back to sitting on the side of a flat bed without bedrails? 4 09/21/2025 9:30 AM Shelley Palacios RN Moving to and from a bed to a chair (including a wheelchair)? 4 09/21/2025 9:30 AM Shelley Palacios RN To walk in hospital room? 3 09/21/2025 9:30 AM Shelley Palacios RN Climbing 3-5 steps with a railing? 2 09/21/2025 9:30 AM Shelley Palacios RN AM-PAC 6 Clicks Score (PT) 09/21/2025 9:30 AM Shelley Palacios RN Highest Level of Mobility Goal Walk 10 Steps or More-6 09/21/2025 9:30 AM Shelley Palacios RN * Cognitive/Neuro/Behavioral WDL Question Answer Date of Assessment Author Level of Consciousness Alert 09/21/2025 11:42 A M EST Isamar Reyes * Functional Screen (every 3 days/change) Question Answer Date of Assessment Author Communication 0 - understands/communicates without difficulty 09/21/2025 1:56 PM Marie Carreon RN Bathing 1 - assistive equipment 09/21/2025 1:56 P M Marie Carreon RN Eating 0 - independent 09/21/2025 1:56 PM Marie Franco Si, RN Dressing 0 - independent 09/21/2025 1:56 PM Marie Franco Si, RN Swallowing 0 - swallows foods/liquids without difficulty 09/21/2025 1:56 PM Marie Carreon RN Ambulation 1 - assistive equipment 09/21/2025 1:56 P M Marie Carreon RN Toileting 0 - independent 09/21/2025 1:56 PM Marie Franco Si, RN Transferring 0 - independent 09/21/2025 1:56 PM Marie Sal RN * Nutrition Risk Screen Question Answer Date of Assessment Author Nutrition Risk Screen no indicators present 09/21/2025 9:30 AM Shelley Palacios RN * AUDIT-C (Alcohol Use Disorders Identification Test) Question Answer Date of Assessment Author AUDIT-C Score 0 09/21/2025 9:30 AM Shelley Mcnamara RN Q1: How often do you have a drink containing alcohol? Never 09/21/2025 9:30 AM Shelley Palacios RN Q2: How many drinks containing alcohol do you have on a typical day when you are drinking? Patient does not drink 09/21/2025 9:30 AM Shelley Palacios RN Q3: How often do you have six or more drinks on one occasion? Never 09/21/2025 9:30 AM Shelley Palacios RN * Coping Question Answer Date of Assessment Author Trust Relationship/Rapport care explained;emotional support provided;choices provided;empathic listening provided;questions answered;questions encouraged;reassurance provided;thoughts/feelin gs acknowledged 09/21/2025 9:30 AM Shelley Palacios RN * Health Management Question Answer Date of Assessment Author Symptoms/Conditions Managed at Home none 09/21 9:30 AM Shelley Palacios RN * HEENT WDL Question Answer Date of Assessment Author DARIN GARDINERL 09/21/2025 1:56 PM Marie Preciado RN * Disability/Function Question Answer Date of Assessment Author Errands Management caregiver drives. 09/21/2025 9:30 A M Shelley Palacios RN Hearing Difficulty or Deaf no 09/21/2025 9:30 AM Shelley Palacios RN Eating/Swallowing Difficulty no 09/21/2025 9:30 AM Shelley Palacios RN Difficulty Managing Errands Independently yes 09/21/2025 9:30 AM Shelley Palacios RN Equipment Currently Used at Home cane, straight;bp cuff;bath bench;rollator 09/21/2025 9:30 AM Shelley Palacios RN Difficulty Concentrating, Remembering or Making Decisions no 09/21/2025 9:30 AM Shelley Palacios RN Dressing/Bathing Management shower chair 09/21/2025 9:30 AM Shelley Palacios RN Vision Management reading glasses 09/21/2025 9:30 AM Shelley Chang RN Visual Difficulty or Blind yes 09/21/2025 9:30 AM Shelley Palacios RN Change in Functional Status Since Onset of Current Illness/Injury no 09/21/2025 9:30 AM Shelley Palacios RN Communication Difficulty no 09/21/2025 9:30 AM Shelley Palacios RN Dressing/Bathing Difficulty yes 09/21/2025 9:30 AM Shelley Palacios RN Dressing/Bathing bathing difficulty, requires equipment 09/21/2025 9:30 AM Shelley Palacios RN Walking or Climbing Stairs Difficulty no 09/21/2025 9:30 AM Shelley Palacios, TIM * Resource/Environmental Concerns Question Answer Date of Assessment Author Current Living Arrangements home 09/21/2025 9: 30 AM Shelley Palacios, TIM * Positioning Question Answer Date of Assessment Author Body Position position changed independently 09/21/2025 9:30 AM Shelley Palacios, TIM Positioning/Transfer Devices pillows;in use 09/21/2025 9:30 AM Shelley Palacios, TIM * Victor Manuel Risk Assessment Question Answer Date of Assessment Author Sensory Perception 4-->no impairment 09/21/2025:56 AM Marie Carreon RN Friction and Shear 3-->no apparent problem 09/21 11:56 AM Marie Carreon RN Moisture 4-->rarely moist 09/21/2025 11:5 6 AM Marie Carreon RN Victor Manuel Score 20 09/21/2025 11:56 AM Marie Carreon RN Nutrition 3-->adequate 09/21/2025 11:56 AM Marie Carreon RN Activity 3-->walks occasionally 11:56 AM Marie Carreon RN Mobility 3-->slightly limited 09/21/2025 11:56 AM Marie Carreon RN * Safety Question Answer Date of Assessment Author Safety ZULEYKAL WDL 09/21/2025 1:56 PM Marie Preciado RN * Musculoskeletal Question Answer Date of Assessment Author Musculoskeletal WDL X;mobility 09/21/2025 1:56 PM Marie Webb RN General Mobility mildly impaired;generalized weakness 09/21/2025 1:56 PM Marie Carreon RN * Skin Question Answer Date of Assessment Author Skin ZULEYKAL X;integrity 09/21/2025 1:56 PM Marie Preciado RN * Nutrition Question Answer Date of Assessment Author Diet/Nutrition Received low saturated fat/low cholesterol 09/21/2025 1:56 PM Marie Carreon RN * Daily Care Question Answer Date of Assessment Author Activity Assistance Provided independent 09/21/2025 3:15 PM Smooth Carreon RN Symptoms Noted During/After Activity none 09/21/2025 3:15 PM Erika Carreon RN * Suicidal Ideation (Past 1 Month) Question Answer Date of Assessment Author 1. Wish to be (Past 1 Month) No 025 9:30 AM Shelley Palacios RN 2. Non-Specific Active Suici reno Thoughts (Past 1 Month) No 09/21/2025 9:30 AM Shelley Palacios RN * Calculated C-SSRS Risk Score (Lifetime/Recent) Answer Date of Assessment Author No Risk Indicated 09/21/2025 9:30 AM Shelley Palacios RN * Norman Suicide Severity Rating Scale (Screener/Recent Self-Report) Question Answer Date of Assessment Author 6. Suicidal Behavior (Lifetime) No 9:30 AM Shelley Palacios RN * Lore Jean Fall Risk Assessment (First 24 hrs only, then right click and complete this group) Question Answer Date of Assessment Author Last Known Fall 0 09/21/2025 11:56 AM Marie Sal RN Mobility 3 09/21/2025 11:56 AM Marie Ambriz RN Medications 1;3 09/21/2025 11:56 AM Marie Ambriz RN Mental Status/LOC/Awareness 0 09/21/2025 11 :56 AM Marie Carreon RN Toileting Needs 0 09/21/2025 11:56 AM Marie Sal RN Volume/Electrolyte Status 0 09/21/2025 11:5 6 AM Marie Carreon RN Communication/Sensory 0 09/21/2025 11:56 AM Marie Carreon RN Hester Davis Fall Risk Total 10 09/21/2025 1 1:56 AM Marie Carreon RN * Pressure Injury Screen Question Answer Date of Assessment Author Pressure Injury Present on Admission no 09/03 9:30 AM Shelley Palacios RN * Malnutrition Screening Tool Question Answer Date of Assessment Author Have you recently lost weigh t without trying? If yes, how much weight have you lost? 0--> No 09/21/2025 9:30 AM Shelley Palacios RN Have you been eating poorly because of a decreased appetite? 0--> No 09/21/2025 9:30 AM Shelley Palacios RN MST score 0 09/21/2025 9:30 AM Shelley Palacios RN * How much help from another person do you currently need... Question Answer Date of Assessment Author Turning from your back to your side while in flat bed without using bedrails? 4 09/21/2025 9:30 AM Shelley Palacios RN Standing up from a chair using your arms (e.g., wheelchair, bedside chair)? 3 09/21/2025 9:30 AM Shelley Palacios RN Moving from lying on back to sitting on the side of a flat bed without bedrails? 4 09/21/2025 9:30 AM Shelley Palacios RN Moving to and from a bed to a chair (including a wheelchair)? 4 09/21/2025 9:30 AM Shelley Palacios RN To walk in hospital room? 3 09/21/2025 9:30 AM Shelley Palacios RN Climbing 3-5 steps with a railing? 2 09/21/2025 9:30 AM Shelley Palacios RN AM-PAC 6 Clicks Score (PT) 09/21/2025 9:30 AM Shelley Palacios RN Highest Level of Mobility Goal Walk 10 Steps or More-6 09/21/2025 9:30 AM Shelley Palacios RN * Cognitive/Neuro/Behavioral WDL Question Answer Date of Assessment Author Level of Consciousness Alert 09/21/2025 11:42 A M Isamar Burns * Edema Question Answer Date of Assessment Author Ankle, Left Edema 2+ (Mild) 09/21/2025 1:56 PM Marie Carreon RN Edema foot, right;foot, left;ankle, right;ankle, left;leg, right;leg, left 09/21/2025 1:56 PM Marie Carreon RN Leg, Right Edema 2+ (Mild) 09/21/2025 1:56 PM EST Marie De La Torre RN Foot, Left Edema 2+ (Mild) 09/21/2025 1:56 PM EST Marie De La Torre RN Leg, Left Edema 2+ (Mild) 09/21/2025 1:56 PM Marie Franco Si, RN Ankle, Right Edema 2+ (Mild) 09/21/2025 1:56 PM Marie Carreon RN Foot, Right Edema 2+ (Mild) 09/21/2025 1:56 PM Marie Carreon RN * Pulse Dorsalis Pedis Question Answer Date of Assessment Author Right Dorsalis Pedis Pulse 2+ (normal) 09/21/2025 1:56 PM EST Smooth Arboleda RN Left Dorsalis Pedis Pulse 2+ (normal) 09/21/2025 1:56 PM EST Marie Arboleda RN * Functional Screen (every 3 days/change) Question Answer Date of Assessment Author Communication 0 - understands/communicates without difficulty 09/21/2025 1:56 PM EST Marie Arboleda RN Bathing 1 - assistive equipment 09/21/2025 1:56 P M EST Marie Arboleda RN Eating 0 - independent 09/21/2025 1:56 PM EST Marie Fischer RN Dressing 0 - independent 09/21/2025 1:56 PM EST Marie Fischer RN Swallowing 0 - swallows foods/l iquids without difficulty 09/21/2025 1:56 PM Marie Carreon RN Ambulation 1 - assistive equipment 09/21/2025 1:56 P M Marie Carreon RN Toileting 0 - independent 09/21/2025 1:56 PM EST Marie Fischer RN Transferring 0 - independent 09/21/2025 1:56 PM EST Marie Fischer RN * Pulse Radial Question Answer Date of Assessment Author Right Radial Pulse 2+ (normal) 09/21/2025 3:45 PM Marie Carreon RN Left Radial Pulse 2+ (normal) 09/21/2025 1:56 PM Marie Carreon RN * Nutrition Risk Screen Question Answer Date of Assessment Author Nutrition Risk Screen no indicators present 09/21/2025 9:30 AM Shelley Palacios RN * AUDIT-C (Alcohol Use Disorders Identification Test) Question Answer Date of Assessment Author AUDIT-C Score 0 09/21/2025 9:30 AM Shelley Mcnamara RN Q1: How often do you have a drink containing alcohol? Never 09/21/2025 9:30 AM Shelley Palacios RN Q2: How many drinks containing alcohol do you have on a typical day when you are drinking? Patient does not drink 09/21/2025 9:30 AM Shelley Palacios RN Q3: How often do you have six or more drinks on one occasion? Never 09/21/2025 9:30 AM Shelley Palacios, TIM * Health Management Question Answer Date of Assessment Author Symptoms/Conditions Managed at Home none 09/21 9:30 AM Shelley Palacios, TIM * HEENT WDL Question Answer Date of Assessment Author HETI WDL WDL 09/21/2025 1:56 PM Marie Preciado RN * Disability/Function Question Answer Date of Assessment Author Errands Management caregiver drives. 09/21/2025 9:30 A M Shelley Palacios RN Hearing Difficulty or Deaf no 09/21/2025 9:30 AM Shelley Palacios RN Eating/Swallowing Difficulty no 09/21/2025 9:30 AM Shelley Palacios RN Difficulty Managing Errands Independently yes 09/21/2025 9:30 AM Shelley Palacios RN Equipment Currently Used at Home cane, straight;bp cuff;bath bench;rollator 09/21/2025 9:30 AM Shelley Palacios RN Difficulty Concentrating, Remembering or Making Decisions no 09/21/2025 9:30 AM Shelley Palacios RN Dressing/Bathing Management shower chair 09/21/2025 9:30 AM Shelley Palacios RN Vision Management reading glasses 09/21/2025 9:30 AM Shelley Chang RN Visual Difficulty or Blind yes 09/21/2025 9:30 AM Shelley Palacios RN Change in Functional Status Since Onset of Current Illness/Injury no 09/21/2025 9:30 AM Shelley Palacios RN Communication Difficulty no 09/21/2025 9:30 AM Shelley Palacios RN Dressing/Bathing Difficulty yes 09/21/2025 9:30 AM Shelley Palacios RN Dressing/Bathing bathing difficulty, requires equipment 09/21/2025 9:30 AM Shelley Palacios RN Walking or Climbing Stairs Difficulty no 09/21/2025 9:30 AM Shelley Palacios RN * Resource/Environmental Concerns Question Answer Date of Assessment Author Current Living Arrangements home 09/21/2025 9: 30 AM Shelley Palacios RN Resource/Environmental Concerns none 9:30 AM Shelley Palacios RN Transportation Concerns none 09/21/2025 9:30 A M Shelley Palacios RN * Genitourinary Question Answer Date of Assessment Author Voiding Characteristics voids spontaneou sly without difficulty 09/21/2025 1:56 PM Marie Carreon RN * Safety Question Answer Date of Assessment Author Safety WDL WD 09/21/2025 1:56 PM Marie Preciado RN * Musculoskeletal Question Answer Date of Assessment Author Musculoskeletal WDL X;mobility 09/21/2025 1:56 PM Marie Webb RN General Mobility mildly impaired;generalized weakness 09/21/2025 1:56 PM Marie Carreon RN * Cardiac Question Answer Date of Assessment Author Cardiac Rhythm radial pulse regular 09/21/2025 1:56 PM Marie Carreon RN * Skin Question Answer Date of Assessment Author Skin Integrity bruised (ecchymotic) 09/21/2025 1:56 PM Maire Carreon RN Skin WDL X;integrity 09/21/2025 1:56 PM Marie Preciado RN * Cognitive Question Answer Date of Assessment Author Cognitive/Neuro/Behavioral WDL [employer] 09/21/2025 1:56 PM Smooth Carreon RN * Violence Assessment Tool Risk Indicators Question Answer Date of Assessment Author Assessment Type Initial Assessment 09/21/2025 9:30 AM Shelley Palacios RN History of Violence 0 09/21/2025 9:30 AM Shelley Rivero RN Confused 0 09/21/2025 9:30 AM Shelley Palacios RN Irritable 0 09/21/2025 9:30 AM Shelley Palacios RN Boisterous 0 09/21/2025 9:30 AM Shelley Palacios RN Verbal Threats 0 09/21/2025 9:30 AM Shelley Kate RN Physical Threats 0 09/21/2025 9:30 AM Shelley Mccollum RN Attacking Objects 0 09/21/2025 9:30 AM Shelley Palacios RN Agitated/Impulsive 0 09/21/2025 9:30 AM Shelley Palacios RN Paranoid/Suspicious 0 09/21/2025 9:30 AM Shelley Rivero RN Substance Intoxication/Withdrawal 0 09/21/2025 9:30 AM Shelley Palacios RN Socially Inappropriate/Disruptive Behavior 0 09/21/2025 9:30 AM Shelley Palacios RN Body Language 0 09/21/2025 9:30 AM Shelley Mcnamara RN Violence Assessment Tool Total Score 0 09/21/2025 9:30 AM Shelley Palacios RN * Suicidal Ideation (Past 1 Month) Question Answer Date of Assessment Author 1. Wish to be (Past 1 Month) No 025 9:30 AM Shelley Palacios RN 2. Non-Specific Active Suici reno Thoughts (Past 1 Month) No 09/21/2025 9:30 AM Shelley Palacios RN * Calculated C-SSRS Risk Score (Lifetime/Recent) Answer Date of Assessment Author No Risk Indicated 09/21/2025 9:30 AM Shelley Palacios RN * Norman Suicide Severity Rating Scale (Screener/Recent Self-Report) Question Answer Date of Assessment Author 6. Suicidal Behavior (Lifetime) No 9:30 AM Shelley Palacios RN * Lore Jean Fall Risk Assessment (First 24 hrs only, then right click and complete this group) Question Answer Date of Assessment Author Last Known Fall 0 09/21/2025 11:56 AM Marie Sal RN Mobility 3 09/21/2025 11:56 AM Marie Ambriz RN Medications 1;3 09/21/2025 11:56 AM Marie Ambriz RN Mental Status/LOC/Awareness 0 09/21/2025 11 :56 AM Marie Carreon RN Toileting Needs 0 09/21/2025 11:56 AM Marie Sal RN Volume/Electrolyte Status 0 09/21/2025 11:5 6 AM Marie Carreon RN Communication/Sensory 0 09/21/2025 11:56 AM Marie Carreon RN Lore Jean Fall Risk Total 10 09/21/2025 1 1:56 AM Marie Carreon RN documented as of this encounter Mental Status * Ravena Scale Question Answer Entry Date Author Markos Scale Score 2 - patient cooperat mark, oriented and tranquil 09/21/2025 11:42 AM Isamar Burns * Cognitive/Neuro/Behavioral WDL Question Answer Entry Date Author Level of Consciousness Alert 09/21/2025 11:42 A M Isamar Burns * Kelsie Coma Scale Question Answer Entry Date Author Best Eye Response 4-->(E4) spontaneous 1:56 PM Marie Carreon RN Best Verbal Response 5-->(V5) oriented 1:56 PM Marie Carreon RN Best Motor Response 6-->(M6) obeys commands 09/03 1:56 PM Marie Carreon RN Oracle Coma Scale Score 15 09/21/2025 1:56 PM Marie Carreon RN * Edema Question Answer Entry Date Author Edema foot, right;foot, left;ankle, right;ankle, left;leg, right;leg, left 09/21/2025 1:56 PM Marie Carreon RN * Coping Question Answer Entry Date Author Trust Relationship/Rapport care explained;emotional support provided;choices provided;empathic listening provided;questions answered;questions encouraged;reassurance provided;thoughts/feelings acknowledged 09/21/2025 9:30 AM Shelley Palacios RN * HEENT WDL Question Answer Entry Date Author HEENT WDL WDL 09/21/2025 1:56 PM Marie Preciado RN * Disability/Function Question Answer Entry Date Author Difficulty Concentrating, Remembering or Making Decisions no 09/21/2025 9:30 AM Shelley Palacios, TIM Vision Management reading glasses 09/21/2025 9:30 AM Shelley Chang, TIM * Ori Postanesthesia Score Question Answer Entry Date Author Consciousness 2-->fully awake 09/21/2025 1:56 PM Marie Carreon RN Activity 2-->moves 4 extremit ies voluntarily or on command 09/21/2025 1:56 PM Marie Carreon RN * Coping/Psychosocial Question Answer Entry Date Author Involvement in Care at bedside 09/21/2025 1 :56 PM Marie Carreno RN Family/Support Persons daughter 1:56 PM Marie Carreon RN Verbalized Emotional State acceptance 09/21/2025 1:56 PM Marie Carreon RN Family/Support System Care involvement promoted;presence promoted 09/21/2025 11:56 AM Marie Carreon RN Observed Emotional State calm;cooperative 2024 1:56 PM Marie Carreon RN * Comfort Interventions Question Answer Entry Date Author Sleep/Rest/Relaxation no problem identified;awake 09/21/2025 1:56 PM Marie Carreon RN * Cardiac Question Answer Entry Date Author Cardiac Rhythm radial pulse regular 09/21/2025 1:56 PM Marie Carreon RN * Neuro Question Answer Entry Date Author Additional Documentation Oracle Coma Sc sari (Group) 09/21/2025 9:30 AM Shelley Palacios RN * Cognitive Question Answer Entry Date Author Cognitive/Neuro/Behavioral WDL WDL 09/21/2025 1:56 PM Smooth Carreon RN * Pain/Comfort/Sleep Question Answer Entry Date Author POSS (Pasero Opioid-Induced Sed Scale) 1 - Awake and alert 09/21/2025 1:56 PM Marie Carreon RN * Violence Assessment Tool Risk Indicators Question Answer Entry Date Author Assessment Type Initial Assessment 09/21/2025 9: 30 AM Shelley Palacios RN History of Violence 0 09/21/2025 9 :30 AM Shelley Palacios RN Confused 0 09/21/2025 9:30 AM Shelley Palacios RN Irritable 0 09/21/2025 9:30 AM Shelley Palacios RN Boisterous 0 09/21/2025 9:30 AM Shelley Palacios RN Verbal Threats 0 09/21/2025 9:30 AM Shelley Palacios RN Physical Threats 0 09/21/2025 9:30 AM Shelley Palacios RN Attacking Objects 0 09/21/2025 9:3 0 AM Shelley Palacios RN Agitated/Impulsive 0 09/21/2025 9: 30 AM Shelley Palacios RN Paranoid/Suspicious 0 09/21/2025 9 :30 AM Shelley Palacios RN Substance Intoxication/Withdrawal 0 09/21/2025 9:30 AM Shelley Palacios RN Socially Inappropriate/Disruptive Behavior 0 09/21/2025 9:30 AM Shelley Palacios RN Body Language 0 09/21/2025 9:30 AM Shelley Palacios RN Violence Assessment Tool Total Score 0 09/21/2025 9:30 AM Shelley Palacios RN documented in this encounter Discharge Instructions * Attachments The following attachments cannot be sent through Care Everywhere. * Coronary Angiogram ([place]) * Coronary Angiogram Care After ([place]) * Radial Site Care ([place]) * Moderate Conscious Sedation Adult Care After ([place]) documented in this encounter Medications at Time [...] doses 25 tablet 5 02/01/2025 nystatin (MYCOSTATIN) [id number] UNIT/GM cream Apply 2 applications topically daily [...] FOR PAIN documented as of this encounter H&P Notes * Denise Pandey APRN - 09/21/2025 9:56 AM EST H&P reviewed. The patient was examined and there are no changes to the H&P. Modified right grant's positive. Cardiac catheterization discussed with patient she is agreeable to proceed. Further recommendations to follow procedure. Denise Pandey APRN Cosigned by Justin Moses MD at 09/21/2025 11:53 AM EST Associated attestation - Justin Moses MD - 09/21/2025 11:53 AM EST Source Note - Nereida Ambrose APRN - 09/11/2025 2:00 PM [...] to the ER and was hospitalized at [facility] on 08/24/2025, pt had right facial droopiness.CT head showed hypo-attenuation in the right thalamus that does not correlate with patient's symptoms. MRI negative, echo EF 56 to 60% with normal ventricular cavity size, left ventricular wall thicknessconsistent with hypertrophy. Aortic valve abnormal in structure without regurgitation or stenosis.Mild calcification of the aortic valve mainly affecting [...] related history 1. Ischemic cardiomyopathy -Dual-chamber defibrillator Doc. 2. CAD -[facility] 02/25/2016 LAD stents patent x 2, 40% [...] Disp: 25 tablet, Rfl: 5 nystatin (MYCOSTATIN) [id number] UNIT/GM cream, Apply 2 applications topically daily [...] in situ [Z95.810] Coronary artery disease involving [place] coronary artery of [place] heart without angina pectoris Orders: Basic Metabolic Panel; Future Case Request Photolithographer: Left Heart Cath with Cors and SVG's, Left Heart Cath CBC Auto Differential; Future Hypertension, essential Mixed hyperlipidemia Precordial pain Orders: Basic Metabolic Panel; Future Case Request Photolithographer: Left Heart Cath with Cors and SVG's, [...] has worsened will move forward with [facility]. To have CBC and BMP prior. - [...] last visit. - Order for [facility] 6. Lower Extremity Edema - Continue Lasix 40mg daily Recommendations: ER if symptoms increase, Report if any new/changing symptoms immediately, Limit salt, Elevate legs, Compression hose, and Limit caffeine Follow Up Return in about 6 weeks (around 10/23/2025) for Follow up after heart cath. Nereida Ambrose APRN Cardiology and Sleep [facility] 09/11/2025 Please note that this explicitly excludes time spent on other separate billable services such as performing procedures or test interpretation, when applicable. 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 Current A1c is 5.8 noted during chart review. Pt is on no home meds exclusively for diabetes and has no documented history of diabetes per H&P. Thank you. Electronically signed by: Hafsa Stover RN 09/21/25 12:34 EST documented in this encounter Plan of Treatment Upcoming Encounters Date Type Department Care Team (Late st Contact Info) Description 10/31/2025 9:00 AM EST Office Visit [facility] [address] [place] [address] Nereida Ambrose APRN [address] [place] [address] 11/13/2025 2:30 PM EST Office Visit [facility] [address] [facility] [address] [place] [address] Camille Spann APRN [address] [facility] [address] [address] 02/09/2026 2:15 PM EDT Office Visit [facility] [address] [facility] [address] [place] [id number] Shahla Troy PA-C [address] [facility] [address] [place] [address] [phone] (work) documented as of this encounter Procedures Procedure Name Priority Date/Time Associated Diagnosis Comments SCANNED - TELEMETRY 09/21/2025 1 1:59 AM EST CARDIAC CATHETERIZATION Routine 09/21/20 11:48 AM EST Coronary artery disease involving [place] coronary artery of [place] heart without angina pectoris Precordial pain SCANNED - TELEMETRY 09/21/2025 9 :52 AM EST SCANNED - TELEMETRY 09/21/2025 9 :52 AM EST CBC (NO DIFF) STAT 09/21/2025 9:34 AM EST HEMOGLOBIN A1C STAT 09/21/2025 9:34 AM EST LIPID PANEL STAT 09/21/2025 9:34 AM EST COMPREHENSIVE METABOLIC PANEL STAT 09/21/2025 9:34 AM EST documented in this encounter Results * Telemetry Scan (09/21/2025 11:59 AM EST) [facility] Onbase ECG ORDERABLES Final Result * LEFT HEART CATH (09/21/2025 11:48 AM EST) Cath EF Estimated 60 % Anatomical Region Laterality Modality X-Ray Angiograph y Narrative 09/21/2025 11:49 AM EST Nonflow-limiting coronary artery disease 50% mid RCA stenosis with normal IFR of 0.90 Widely patent LAD stent Normal LVEF 60 Procedure Narrative Left heart catheterization, ventriculography and coronary arteriography performed via the right radial artery using standard 6 [place] catheters. Borderline lesion in the RCA. Additional heparin was given. Through an F R4 guide, I passed across the stenosis. iFR was normal at 0.96. no complications. Hemostasis using a radial band. Coronary Findings Diagnostic Dominance: Right Left Main: The vessel was visualized by angiography, is moderate in size and is angiographically normal. Left Anterior Descending: Large vessel 1 large diagonal branch. Widely patent proximal LAD stent. Otherwise no atherosclerotic disease seen angiographic Left Circumflex: Moderate size nondominant vessel in rest of branching ramus, and 2 obtuse marginal branches. Mild luminal irregularities Right Coronary Artery: Moderate size dominant vessel giving rise to the right PDA and a trifurcating right posterolateral. Tortuous mid segment, with some hazy 50% stenosis seen in the mid RCA. iFR of this region confirmed nonflow-limiting stenosis with IFR mean (3 runs) 0.96. Intervention No interventions have been documented. Left Ventricle The left ventricular size is normal. The left ventricular systolic function is normal. The estimated ejection fraction is 60%. There are no wall motion abnormalities noted in the left ventricle.The outflow tract is normal. Hemodynamics LV pressures (S/D/E) : 118/12 mmHg AO pressures (S/D/M) : 118/64/ Nereida Ambrose APRN CV CARDIAC CATH ORDERABLES Final Result * Telemetry Scan (09/21/2025 9:52 AM EST) [facility] Onbase ECG ORDERABLES Final Result * Telemetry Scan (09/21/2025 9:52 AM EST) [facility] Onbase ECG ORDERABLES Final Result * (ABNORMAL) Hemoglobin A1c (09/21/2025 9:34 AM EST) Hemoglobin A1C 5.82(H) 4.80 - 5.60 % 09/21/2025 11:09 AM EST [facility] Blood Line / Unknown 09/21/2025 9: 34 AM EST 09/21/2025 10:17 AM EST Narrative [facility] - 09/21/2025 11:09 AM EST Hemoglobin A1C Ranges: Increased Risk for Diabetes 5.7% to 6.4% Diabetes >= 6.5% Diabetic Goal < 7.0% Denise Pandey APRN LAB BLOOD ORDERABLES Final Result [facility]
[address] [place] [address], * Lipid Panel (09/21/2025 9:34 AM EST) Total Cholesterol 94 0 - 200 mg/dL 09/21/2025 10:45 AM EST [facility] Triglycerides 77 0 - 150 mg/dL 09/21/2025 10:45 AM EST [facility] HDL Cholesterol 40 40 - 60 mg/dL 09/21/2025 10:45 AM EST [facility] LDL Cholesterol 38 0 - 100 mg/dL 09/21/2025 10:45 AM EST [facility] VLDL Cholesterol 16 5 - 40 mg/dL 09/21/2025 10:45 AM EST [facility] LDL/HDL Ratio 0.97 09/21/2025 10:45 AM EST [facility] Blood Line / Unknown 09/21/2025 9: 34 AM EST 09/21/2025 10:17 AM EST [facility] - 09/21/2025 10:45 AM EST Cholesterol Reference Ranges (U.S. Department of Health [...] is calculated using the NIH LDL-C calculation. us Denise Pandey APRN LAB BLOOD ORDERABLES Final Result [facility]
[address] [place] [address], * Comprehensive Metabolic Panel (09/21/2025 9:34 AM EST) Glucose 89 65 - 99 mg/dL 09/21/2025 10:45 AM EST [facility] BUN 15.5 8.0 - 23.0 mg/dL 09/21/2025 10:45 AM EST [facility] Creatinine 0.82 0.57 - 1.00 mg/dL 09/21/2025 10:45 AM EST [facility] Sodium 138 136 - 145 mmol/L 09/21/2025 10:45 AM EST [facility] Potassium 4.4 3.5 - 5.2 mmol/L 09/21/2025 10:45 AM EST [facility] Chloride 106 98 - 107 mmol/L 09/21/2025 10:45 AM EST [facility] CO2 22.9 22.0 - 29.0 mmol/L 09/21/2025 10:45 AM EST [facility] Calcium 9.6 8.6 - 10.5 mg/dL 09/21/2025 10:45 AM EST [facility] Total Protein 6.6 6.0 - 8.5 g/dL 09/21/2025 10:45 AM EST [facility] Albumin 3.6 3.5 - 5.2 g/dL 09/21/2025 10:45 AM EST [facility] ALT (SGPT) 20 1 - 33 U/L 09/21/2025 10:45 AM EST [facility] AST (SGOT) 28 1 - 32 U/L 09/21/2025 10:45 AM EST [facility] Alkaline Phosphatase 58 39 - 117 U/L 09/21/2025 10:45 AM EST [facility] Total Bilirubin 0.5 0.0 - 1.2 mg/dL 09/21/2025 10:45 AM EST [facility] Globulin 3.0 gm/dL 09/21/2025 10:45 AM EST [facility] Comment:Calculated Result A/G Ratio 1.2 g/dL 09/21/2025 10:45 AM EST [facility] BUN/Creatinine Ratio 18.9 7.0 - 25.0 09/21/2025 10:45 AM EST [facility] Anion Gap 9.1 5.0 - 15.0 mmol/L 09/21/2025 10:45 AM EST [facility] eGFR 76.1 >60.0 mL/min/1.7 3 09/21/2025 10:45 AM EST [facility] Blood Line / Unknown 09/21/2025 9: 34 AM EST 09/21/2025 10:17 AM EST [facility] - 09/21/2025 10:45 AM EST GFR Categories in Chronic Kidney Disease (CKD) [...] not include race as a factor us Denise Pandey APRN LAB BLOOD ORDERABLES Final Result [facility]
[address] [place] [address], * (ABNORMAL) CBC (No Diff) (09/21/2025 9:34 AM EST) WBC 8.32 3.40 - 10.80 10*3/mm3 09/21/2025 10:23 AM EST [facility] RBC 3.83 3.77 - 5.28 10*6/mm3 09/21/2025 10:23 AM EST [facility] Hemoglobin 11.7(L) 12.0 - 15.9 g/dL 09/21/2025 10:23 AM EST [facility] Hematocrit 36.1 34.0 - 46.6 % 09/21/2025 10:23 AM EST [facility] MCV 94.3 79.0 - 97.0 fL 09/21/2025 10:23 AM EST [facility] MCH 30.5 26.6 - 33.0 pg 09/21/2025 10:23 AM EST [facility] MCHC 32.4 31.5 - 35.7 g/dL 09/21/2025 10:23 AM [facility] RDW 13.8 12.3 - 15.4 % 09/21/2025 10:23 AM [facility] RDW-SD 47.8 37.0 - 54.0 fl 09/21/2025 10:23 AM [facility] MPV 11.8 6.0 - 12.0 fL 09/21/2025 10:23 AM [facility] Platelets 189 140 - 450 10*3/mm3 09/21/2025 10:23 AM [facility] Blood Line / Unknown 09/21/2025 9: 34 AM EST 09/21/2025 10:17 AM EST Denise Pandey APRN LAB BLOOD ORDERABLES Final Result [facility]
[address] [place] [address], documented in this encounter Visit Diagnoses Diagnosis Precordial pain- Primary Coronary artery disease involving [place] coronary artery of [place] heart without angina pectoris Coronary artery disease involving [place] coronary artery of [place] heart without angina pectoris Precordial pain documented in this encounter Admitting Diagnoses Diagnosis Coronary artery disease involving [place] coronary artery of [place] heart without angina pectoris Precordial pain documented in this encounter Administered Medications Inactive Administered Medications - up to 3 most recent administrations Medication Order MAR Action Action Date Dose Rate Site aspirin tablet 325 mg 325 mg, Oral, Once, On Mary 09/21/25 at 0926, For 1 dose, Do not exceed 4 grams of aspirin in a 24 hr period. If given for pain, use the following pain scale: Mild Pain = Pain Score of 1-3, CPOT 1-2 Moderate Pain = Pain Score of 4-6, CPOT 3-4 Severe Pain = Pain Score of 7-10, CPOT 5-8 Given 09/21/2025 9:52 AM EST 325 mg documented in this encounter Active and Recently Administered Medications Times are shown in EST. Scheduled Medication Order 09/19/2025 09/20/2025 09/21/2025 aspirin tablet 325 mg (COMPLETED)(Linked Group 1) 325 mg, Oral, Once, On Mary 09/21/25 at 0926, For 1 dose, Do not exceed 4 grams of aspirin in a 24 hr period. If given for pain, use the following pain scale: Mild Pain = Pain Score of 1-3, CPOT 1-2 Moderate Pain = Pain Score of 4-6, CPOT 3-4 Severe Pain = Pain Score of 7-10, CPOT 5-8 0952 (Given - Provid er: Shelley Valente RN) PRN Medication Order 09/19/2025 09/20/2025 09/21/2025 acetaminophen (TYLENOL) tablet 650 mg 650 mg, Oral, Every 4 Hours PRN, Mild Pain, Fever, temperature greater than 101F, Starting on Mary 09/21/25 at 1152, Based on patient request - if ordered [...] = Pain Score of 7-10, CPOT 5-8 fentaNYL citrate (PF) (SUBLIMAZE) injection (CANCELED) Code / Trauma / Sedation Medication, Starting on Mary 09/21/25 at 1122 1122 (Given - Provid er: Joanna Real RN) heparin (porcine) injection (CANCELED) Code / Trauma / Sedation Medication, Starting on Mary 09/21/25 at 1124 1124 (Given - Provid er: Justin Moses MD)1133 (Given - Provider: Joanna Real, TIM) iodixanol (VISIPAQUE) 320 MG/ML injection (CANCELED) Code / Trauma / Sedation Medication, Starting on Mary 09/21/25 at 1144 1144 (Given - Provid er: Justin Moses MD) lidocaine PF 1% (XYLOCAINE) injection (CANCELED) Code / Trauma / Sedation Medication, Starting on Mary 09/21/25 at 1123 1123 (Given - Provid er: Justin Moses MD) midazolam (VERSED) injection (CANCELED) Code / Trauma / Sedation Medication, Starting on Mary 09/21/25 at 1122 1122 (Given - Provid er: Joanna Real RN) niCARdipine (CARDENE) syringe (CANCELED) Code / Trauma / Sedation Medication, Starting on Mary 09/21/25 at 1124 1124 (Given - Provid er: Justin Moses MD) nitroglycerin 100 mcg/mL in D5W syringe (CANCELED) Code / Trauma / Sedation Medication, Starting on Mary 09/21/25 at 1124 1124 (Given - Provid er: Justin Moses MD) Linked Groups Order Group 1: aspirin tablet 325 mg (COMPLETED)Jump to med 325 mg, Oral, Once, On Mary 09/21/25 at 0926, For 1 dose, Do not exceed 4 grams of aspirin in a 24 hr period. If given for pain, use the following pain scale: Mild Pain = Pain Score of 1-3, CPOT 1-2 Moderate Pain = Pain Score of 4-6, CPOT 3-4 Severe Pain = Pain Score of 7-10, CPOT 5-8 And aspirin EC tablet 325 mg (CANCELED) 325 mg, Oral, Daily, First dose on Thu09/22/25 at 0900, Swallow tablet whole. Do not crush, chew, or split. Do not exceed 4 grams of aspirin in a 24 hr period. If given for pain, use the following pain scale: Mild Pain = Pain Score of 1-3, CPOT 1-2 Moderate Pain = Pain Score of 4-6, CPOT 3-4 Severe Pain = Pain Score of 7-10, CPOT 5-8 documented in this encounter Care Teams Telephone Answerer Relationship Specialty Start Date End Date Marly Kumar APRN [address] [place] [address] PCP - General Family Medicine 07/06/24 documented as of this encounter
--- OUTSIDE RECORDS SUMMARY | 2025-09-21 10:52 | XMS_ITS | Encounter Summary ---
[facility] [address] [place] [address] Care Team Providers Care Coating Machine Operator Helper Name Role Phone Marly Kumar SHAKIRA Primary Care Provider + [phone] Reason for Visit * Auth/Cert Specialty Diagnoses / Procedures Referred By Contac t Referred To Contact Diagnoses Coronary artery disease involving umatilla tribe coronary artery of umatilla tribe heart without angina pectoris Precordial pain Procedures MN CATH PLMT L HRT & ARTS W/NJX & ANGIO IMG S&I Left Heart Cath Referral ID Status Reason Start Date Expiration Date Visits Re quested Visits Authorized [id number] 1 1 Encounter Details Date Type Department Care Team (Late st Contact Info) Description 09/21/2025 10:52 AM EST - 09/21/2025 11:52 AM EST Surgery [facility] [address] [place] [id number] Justin Moses MD [address] [facility] [address] [place] [id number] Left Heart Cath - Right radial access [27465 (CPT )] Social History Tobacco Use Types Packs/Day Years [...] Sign Reading Time Taken Comments Blood Pressure 105/50 09/21/2025 11:42 AM EST Pulse 74 09/21/2025 11:42 AM EST Temperature 36.7 C (98 F) 09/21/2025 9:20 AM EST Respiratory Rate 18 09/21/2025 11:42 AM EST Oxygen Saturation 92% 09/21/2025 11:42 AM EST Inhaled Oxygen Concentration - - Weight [...] you lost? 0--> No 09/21/2025 9:30 AM EST Shelley Valente RN Have you been eating poorly because of a decreased appetite? 0--> No 09/21/2025 9:30 AM EST Shelley Valente RN MST score 0 09/21/2025 9:30 AM EST Shelley Valente RN * How much help from another [...] 09/21/2025 11:42 A M Isamar Burns * Functional Screen (every 3 days/change) Question Answer Date of Assessment Author Communication 0 - understands/communicates without difficulty 09/21/2025 1:56 PM Marie Carreon RN Bathing 1 - assistive equipment 09/21/2025 1:56 P M Marie Carreon RN Eating 0 - independent 09/21/2025 1:56 PM Marie Franco Si, RN Dressing 0 - independent 09/21/2025 1:56 PM Marie Franco Si, RN Swallowing 0 - swallows foods/l iquids without difficulty 09/21/2025 1:56 PM Marie Carreon RN Ambulation 1 - assistive equipment 09/21/2025 1:56 P M Marie Carreon RN Toileting 0 - independent 09/21/2025 1:56 PM Marie Franco Si, RN Transferring 0 - independent 09/21/2025 1:56 PM Marie Franco Si, RN * Nutrition Risk Screen Question Answer [...] WDL Question Answer Date of Assessment Author HEENT WDL WDL 09/21/2025 1:56 PM [...] 09/21/2025 9: 30 AM Shelley Palacios RN * Positioning Question Answer Date of Assessment Author Body Position position changed independently 09/21/2025 9:30 AM Shelley Palacios RN Positioning/Transfer Devices pillows;in use 09/21/2025 9:30 AM Shelley Palacios RN * Victor Manuel Risk Assessment Question Answer Date of Assessment Author Sensory Perception 4-->no impairment 09/21/2025 11:56 AM Marie Carreon RN Friction and Shear [...] 09/21/2025 9:30 AM Shelley Palacios RN * [place] Suicide Severity Rating Scale (Screener/Recent Self-Report) Question [...] Palacios RN AM-PAC 6 Clicks Score (PT) 20 09/21/2025 9:30 AM Shelley Palacios RN Highest Level of Mobility Goal Walk 10 Steps or More-6 09/21/2025 9:30 AM Shelley Palacios RN * Cognitive/Neuro/Behavioral WDL Question Answer Date of Assessment Author Level of Consciousness Alert 09/21/2025 11:42 A M EST Isamar Reyes * Edema Question Answer Date of Assessment Author Ankle, Left Edema 2+ (Mild) 09/21/2025 1:56 PM EST Marie Arboleda RN Edema foot, right;foot, left;ankle, right;ankle, left;leg, right;leg, left 09/21/2025 1:56 PM EST Marie Arboleda RN Leg, Right Edema 2+ (Mild) 09/21/2025 1:56 PM EST Marie De La Torre RN Foot, Left Edema 2+ (Mild) 09/21/2025 1:56 PM EST Marie De La Torre RN Leg, Left Edema 2+ (Mild) 09/21/2025 1:56 PM EST Marie Fischer RN Ankle, Right Edema 2+ (Mild) 09/21/2025 1:56 PM EST Marie Arboleda RN Foot, Right Edema 2+ (Mild) 09/21/2025 1:56 PM EST Marie Arboleda RN * Pulse Dorsalis Pedis Question Answer Date of Assessment Author Right Dorsalis Pedis Pulse 2+ (normal) 09/21/2025 1:56 PM EST Smooth Arboleda RN Left Dorsalis Pedis Pulse 2+ (normal) 09/21/2025 1:56 PM Marie Carreon RN * Functional Screen (every 3 days/change) [...] 09/21/2025 1:56 PM Marie Franco Si, RN * Pulse Radial Question Answer Date [...] WDL Question Answer Date of Assessment Author HEENT WDL WDL 09/21/2025 1:56 PM [...] Palacios RN Vision Management reading glasses 09/21/2025 9: 30 AM Shelley Palacios RN Visual Difficulty or Blind yes 09/21/2025 [...] Concerns none 09/21/2025 9:30 A M Shelley Palacios, TIM * Genitourinary Question Answer Date of Assessment Author Voiding Characteristics voids spontaneou sly without difficulty 09/21/2025 1:56 PM Marie Carreon RN * Safety Question Answer Date of Assessment Author Safety WDL WDL 09/21/2025 1:56 PM Marie Preciado [...] Skin Integrity bruised (ecchymotic) 09/21/2025 1:56 PM Marie Carreon RN Skin WDL X;integrity 09/21/2025 1:56 PM EST Marie Mas RN * Cognitive Question Answer Date of Assessment Author Cognitive/Neuro/Behavioral WDL WDL 09/21/2025 1:56 PM EST Smooth Arboleda RN * Violence Assessment Tool Risk Indicators Question Answer Date of Assessment Author Assessment Type Initial Assessment 09/21/2025 9:30 AM Shelley Palacios RN History of Violence 0 09/21/2025 9:30 AM Shelley Rivero RN Confused 0 09/21/2025 9:30 AM Shelley Palacios RN Irritable 0 09/21/2025 9:30 AM Shelley Paalcios RN Boisterous 0 09/21/2025 9:30 AM Shelley [...] Month) No 09/21/2025 9:30 AM Shelley Palacios , TIM * Calculated C-SSRS Risk Score (Lifetime/Recent) Answer Date of Assessment Author No Risk Indicated 09/21/2025 9:30 AM Shelley Palacios RN * [place] Suicide Severity Rating Scale (Screener/Recent Self-Report) Question [...] as of this encounter Mental Status * Markos Scale Question Answer Entry Date Author Bascom Scale Score 2 - patient cooperat mark, [...] commands 09/03 1:56 PM Marie Carreon RN Pax Coma Scale Score 15 09/21/2025 1:56 PM Marie Carreon RN * Edema Question Answer Entry Date Author Edema foot, right;foot, left;ankle, right;ankle, left;leg, right;leg, left 09/21/2025 1:56 PM Marie Carreon RN * Coping Question Answer Entry Date Author Trust Relationship/Rapport care explained;emotional support provided;choices provided;empathic listening provided;questions answered;questions encouraged;reassurance provided;thoughts/feelings acknowledged 09/21/2025 9:30 AM Shelley Palacios RN * DARIN WDNancy Question Answer Entry Date Author DARIN OSULLIVAN 09/21/2025 1:56 PM Marie Preciado RN * Disability/Function Question Answer Entry Date Author Difficulty Concentrating, Remembering or Making Decisions no 09/21/2025 9:30 AM Shelley Palacios RN Vision Management reading glasses 09/21/2025 9:30 AM Shelley Chang RN * Ori Postanesthesia Score Question Answer Entry Date Author Consciousness 2-->fully awake 09/21/2025 1:56 PM Marie Carreon RN Activity 2-->moves 4 extremit ies voluntarily or on command 09/21/2025 1:56 PM Marie Carreon RN * Coping/Psychosocial Question Answer Entry Date Author Involvement in Care at bedside 09/21/2025 1 :56 PM Marie Carreon RN Family/Support Persons daughter 1:56 PM Marie [...] Question Answer Entry Date Author Additional Documentation Kelsie Coma Sc sari (Group) 09/21/2025 9:30 AM [...] sent through Care Everywhere. * Coronary Angiogram (Puerto Rican) * Coronary Angiogram Care After ([place]ican) * Radial Site Care ([place]) * Moderate Conscious Sedation Adult Care After ([place]) documented in this encounter Medications at [...] doses 25 tablet 5 02/01/2025 nystatin (MYCOSTATIN) [id number] UNIT/GM cream Apply 2 applications topically daily [...] AM EST Source Note - Nereida Ambrose NON PROFIT JOB TITLES - 09/11/2025 2:00 PM EST Images from the original note were not included. Cardiovascular and Sleep Consulting Provider Note Date: 09/11/2025 Name: Mu Perkins : 1955 PCP: Marly Kumar, SHAKIRA Chief Complaint Patient presents with Coronary Artery Disease Hypertension Pacemaker Check Subjective History of Present Illness Mu Perkins is a 70 y.o. female who presents today for 4 month follow up of Pacemaker check. Patient with history of coronary artery disease, hypertension, hyperlipidemia, and pacemaker. Pt went to the ER and was hospitalized at [facility] on 08/24/2025, pt had right [...] Disp: 25 tablet, Rfl: 5 nystatin (MYCOSTATIN) [id number] UNIT/GM cream, Apply 2 applications topically daily [...] in situ [Z95.810] Coronary artery disease involving umatilla tribe coronary artery of um[place]illa tribe heart without angina pectoris Orders: Basic Metabolic Panel; Future Case Request Fashion Marketer: Left Heart Cath with Cors and SVG's, Left Heart Cath CBC Auto Differential; Future Hypertension, essential Mixed hyperlipidemia Precordial pain Orders: Basic Metabolic Panel; Future Case Request Fashion Marketer: Left Heart Cath with Cors and SVG's, [...] pain has worsened will move forward with [facility]. To have CBC and BMP prior. [...] worsened since last visit. - Order for [facility] 6. Lower Extremity Edema - Continue Lasix 40mg daily Recommendations: ER if symptoms increase, Report if any new/changing symptoms immediately, Limit salt, Elevate legs, Compression hose, and Limit caffeine Follow Up Return in about 6 weeks (around 10/23/2025) for Follow up after heart cath. Nereida Ambrose APRN Cardiology and Sleep [facility] 09/11/2025 Please note that this explicitly excludes time spent on other separate billable services such as performing procedures or test interpretation, when applicable. documented in this encounter Consult Notes * Hfasa Stover RN - 09/21/2025 12:34 PM ESTAssociated Order(s): IP CONSULT TO GOLD RECLAIMER Diabetes Education Patient Name: Chaparrita Perkins Date [...] Description 10/31/2025 9:00 AM EST Office Visit [facility] [address] [place] [address] Nereida Ambrose, NON PROFIT JOB TITLES [address] [place], [place] [id number] 11/13/2025 2:30 PM EST Office Visit [facility] [address] [facility] [address] [place] [address] Camille Spann, NON PROFIT JOB TITLES [address] [facility] [address] [address] 02/09/2026 2:15 PM EDT Office Visit [facility] [address] [facility] [address] [place] [id number] Shahla Troy PA-C [address] [facility] [address] [place], [place] [id number] documented as of this encounter Procedures Procedure Name Priority Date/Time Associated Diagnosis Comments SCANNED - TELEMETRY 09/21/2025 1 1:59 AM EST CARDIAC CATHETERIZATION Routine 09/21/20 11:48 AM EST Coronary artery disease involving umatilla tribe coronary artery of umatilla tribe heart without angina pectoris Precordial pain SCANNED [...] * Telemetry Scan (09/21/2025 11:59 AM EST) [facility] ECG ORDERABLES Final Result * LEFT HEART [...] the right radial artery using standard 6 Maori catheters. Borderline lesion in the RCA. Additional [...] * Telemetry Scan (09/21/2025 9:52 AM EST) [facility] Onbase ECG ORDERABLES Final Result * Telemetry Scan (09/21/2025 9:52 AM EST) [facility] On[facility] ECG ORDERABLES Final Result * (ABNORMAL) Hemoglobin A1c (09/21/2025 9:34 AM EST) Hemoglobin A1C 5.82(H) 4.80 - 5.60 % 09/21/2025 11:09 AM EST [facility] Blood Line / Unknown 09/21/2025 9: 34 AM EST 09/21/2025 10:17 AM EST Narrative [facility] - 09/21/2025 11:09 AM EST Hemoglobin A1C Ranges: Increased Risk for Diabetes 5.7% to 6.4% Diabetes >= 6.5% Diabetic Goal < 7.0% Denise Pandey APRN LAB BLOOD ORDERABLES Final Result [facility]
[address] [place] [address], * Lipid Panel (09/21/2025 9:34 AM EST) Total Cholesterol 94 0 - 200 mg/dL 09/21/2025 10:45 AM EST [facility] Triglycerides 77 0 - 150 mg/dL 09/21/2025 10:45 AM EST [facility] HDL Cholesterol 40 40 - 60 mg/dL 09/21/2025 10:45 AM EST [facility] LDL Cholesterol 38 0 - 100 mg/dL 09/21/2025 10:45 AM EST [facility] VLDL Cholesterol 16 5 - 40 mg/dL 09/21/2025 10:45 AM EST [facility] LDL/HDL Ratio 0.97 09/21/2025 10:45 AM EST [facility] Blood Line / Unknown 09/21/2025 9: 34 AM EST 09/21/2025 10:17 AM EST [facility] - 09/21/2025 10:45 AM EST Cholesterol [...] Pandey APRN LAB BLOOD ORDERABLES Final Result [facility]
[address] [place] [address], * Comprehensive Metabolic Panel (09/21/2025 9:34 AM EST) [facility] Glucose 89 65 - 99 mg/dL 09/21/2025 10:45 AM EST [facility] BUN 15.5 8.0 - 23.0 mg/dL 09/21/2025 10:45 AM EST [facility] Creatinine 0.82 0.57 - 1.00 mg/dL 09/21/2025 10:45 AM [facility] Sodium 138 136 - 145 mmol/L 09/21/2025 10:45 AM [facility] Potassium 4.4 3.5 - 5.2 mmol/L 09/21/2025 10:45 AM [facility] Chloride 106 98 - 107 mmol/L 09/21/2025 10:45 AM [facility] CO2 22.9 22.0 - 29.0 mmol/L 09/21/2025 10:45 AM [facility] Calcium 9.6 8.6 - 10.5 mg/dL 09/21/2025 10:45 AM [facility] Total Protein 6.6 6.0 - 8.5 g/dL 09/21/2025 10:45 AM [facility] Albumin 3.6 3.5 - 5.2 g/dL 09/21/2025 10:45 AM [facility] ALT (SGPT) 20 1 - 33 U/L 09/21/2025 10:45 AM [facility] AST (SGOT) 28 1 - 32 U/L 09/21/2025 10:45 AM [facility] Alkaline Phosphatase 58 39 - 117 U/L 09/21/2025 10:45 AM [facility] Total Bilirubin 0.5 0.0 - 1.2 mg/dL 09/21/2025 10:45 AM [facility] Globulin 3.0 gm/dL 09/21/2025 10:45 AM [facility] Comment:Calculated Result A/G Ratio 1.2 g/dL 09/21/2025 10:45 AM [facility] BUN/Creatinine Ratio 18.9 7.0 - 25.0 09/21/2025 10:45 AM [facility] Anion Gap 9.1 5.0 - 15.0 mmol/L 09/21/2025 10:45 AM [facility] eGFR 76.1 >60.0 mL/min/1.7 3 09/21/2025 10:45 AM [facility] Blood Line / Unknown 09/21/2025 9: 34 AM EST 09/21/2025 10:17 AM EST [facility] - 09/21/2025 10:45 AM EST GFR [...] Pandey APRN LAB BLOOD ORDERABLES Final Result [facility]
[address] [place] [address], * (ABNORMAL) CBC (No Diff) (09/21/2025 9:34 AM EST) WBC 8.32 3.40 - 10.80 10*3/mm3 09/21/2025 10:23 AM [facility] RBC 3.83 3.77 - 5.28 10*6/mm3 09/21/2025 10:23 AM [facility] Hemoglobin 11.7(L) 12.0 - 15.9 g/dL 09/21/2025 10:23 AM [facility] Hematocrit 36.1 34.0 - 46.6 % 09/21/2025 10:23 AM [facility] MCV 94.3 79.0 - 97.0 fL 09/21/2025 10:23 AM [facility] MCH 30.5 26.6 - 33.0 pg 09/21/2025 10:23 AM [facility] MCHC 32.4 31.5 - 35.7 g/dL 09/21/2025 10:23 AM [facility] RDW 13.8 12.3 - 15.4 % 09/21/2025 10:23 AM EST [facility] RDW-SD 47.8 37.0 - 54.0 fl 09/21/2025 10:23 AM EST [facility] MPV 11.8 6.0 - 12.0 fL 09/21/2025 10:23 AM EST [facility] Platelets 189 140 - 450 10*3/mm3 09/21/2025 10:23 AM EST [facility] Blood Line / Unknown 09/21/2025 9: 34 AM EST 09/21/2025 10:17 AM EST Denise Pandey APRN LAB BLOOD ORDERABLES Final Result [facility]
[address] [place] [address], documented in this encounter Visit Diagnoses Diagnosis Precordial pain- Primary Coronary artery disease involving um[place]illa tribe coronary artery of um[place]illa tribe heart without angina pectoris Coronary artery disease involving um[place]illa tribe coronary artery of um[place]illa tribe heart without angina pectoris Precordial pain documented in this encounter Admitting Diagnoses Diagnosis Coronary artery disease involving um[place]illa tribe coronary artery of umatilla tribe heart without angina pectoris Precordial pain documented [...] Given 09/21/2025 9:52 AM EST 325 mg fentaNYL citrate (PF) (SUBLIMAZE) injection Code / Trauma / Sedation Medication, Starting on Mary 09/21/25 at 1122 Given 09/21/2025 11:22 AM EST 50 mcg Left Arm heparin (porcine) injection Code / Trauma / Sedation Medication, Starting on Mary 09/21/25 at 1124 Given 09/21/2025 11:33 AM EST 5,000 Units Left Arm Given 09/21/2025 11:24 AM EST 5,000 Units Wrist Right iodixanol (VISIPAQUE) 320 MG/ML injection Code / Trauma / Sedation Medication, Starting on Mary 09/21/25 at 1144 Given 09/21/2025 11:44 AM EST 105 mL Wrist Right lidocaine PF 1% (XYLOCAINE) injection Code / Trauma / Sedation Medication, Starting on Mary 09/21/25 at 1123 Given 09/21/2025 11:23 AM EST 5 mL Wrist Right midazolam (VERSED) injection Code / Trauma / Sedation Medication, Starting on Mary 09/21/25 at 1122 Given 09/21/2025 11:22 AM EST 2 mg Left Arm niCARdipine (CARDENE) syringe Code / Trauma / Sedation Medication, Starting on Mary 09/21/25 at 1124 Given 09/21/2025 11:24 AM EST 200 mcg Wrist Right nitroglycerin 100 mcg/mL in D5W syringe Code / Trauma / Sedation Medication, Starting on Mary 09/21/25 at 1124 Given 09/21/2025 11:24 AM EST 200 mcg Wrist Right documented in this encounter Active and Recently [...] 5-8 documented in this encounter Care Teams Coating Machine Operator Helper Relationship Specialty Start Date End Date Marly Kumar APRN [address] [place] [address] PCP - General Family Medicine 07/06/24 documented as of this encounter
--- OUTSIDE RECORDS SUMMARY | 2025-10-10 14:15 | XMS_ITS | Encounter Summary ---
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 Shahla Troy PA-C [address] [address] Phone: tel: fax: [facility] [address] [place] [phone] Phone: tel: fax: Referral ID Status Reason Start Date Expiration Date Visits Requested Visits Authorized [id number] Authorized Specialty Services Required 10/10/2025 01/09/2027 1 1 Reason for Visit * Reason Comments Difficulty Swallowing Encounter Details Date Type Department Care Team (Late Contact Info) Description 10/10/2025 2:15 PM EST Office Visit [facility] [address] [place] [phone] Shahla Troy PA-C [address] [address] Gastroesophageal reflux disease without esophagitis (Primary Dx); Esophageal dysphagia; Abnormal CT of the abdomen; Celiac artery stenosis; Superior mesenteric artery stenosis Social History Tobacco Use Types Packs/Day Years [...] Sign Reading Time Taken Comments Blood Pressure 146/90 10/10/2025 1:26 PM EST Pulse 66 10/10/2025 1:26 PM EST Temperature 36.3 C (97.3 F) 10/10/2025 1:26 PM EST Respiratory Rate - - Oxygen Saturation 97% 10/10/2025 1:26 PM EST Inhaled Oxygen Concentration - - Weight 74.8 kg (165 lb) 10/10/2025 1:26 PM EST Height 152.4 cm (5') 10/10/2025 1:26 PM EST Body Mass Index 32.22 10/10/2025 1:26 PM EST documented in this encounter Progress Notes * Shahla Troy PA-C - 10/10/2025 2:15 PM EST Images from the original note were not included. New Patient Consultation Date: 10/10/2025 Patient Name: Chaparrita Perkins : 1955 Chief Complaint: Chief Complaint Patient presents with Difficulty Swallowing History of Present Illness Mu Perkins is a 70 y.o. female PMH history of CVA with residual incontinence, ischemic cardiomyopathy s/p dual-chamber defibrillator CAD s/p stent 2015, HTN, COPD, seizure disorder, ZULEYKA on BiPAP, chronic chest pain, HLD, carpal tunnel, hypothyroidism here for Gastroenterology evaluation ofdysphagia. Pt reports that for the last 1 year she has had issues with swallowing, especially bread and potatoes. She has to keep water or beverage with her when she eats as she reports she will have some pain and feeling like food is stuck in her esophagus whenever she eats. Reports eventually it will pass but takes a long time. She reports she has required EGD with dilation in the past, the last time was about [address] [facility] but unsure of the who the provider was at the time. She reports she was told she had a lot of scarring in my esophagus and they had to scrape it. She denies hemoptysis, cough. She reports daily breakthrough acid reflux symptoms despite her Omeprazole 40 mg daily no matter what she eats. Will sometimes occur on its own. She will take Tums otc to help sometimes, too. This provides some relief. She denies abdominal pain, bloating, weight loss, fevers, chills, nausea or vomiting. Reports she has 1 bm daily that is soft. Denies blood in the stool. She had been admitted to hospital in [place], [place] in April 2025 for altered mental status.She reports they believed it was related to her hx of seizures. Pt did have a CTAP w/ contrast at that time completed at [facility] over the summer which noted chronic anterior abdominal wall fat herniation. Colonic diverticulosis. Chronic high grade celiac and superior mesenteric arterial ostial stenoses. She has not seen a vascular surgeon in the past. Denies abdominal pain. Abdominal surgeries include: includes s/p CCY, inguinal hernia repair, hysterectomy. Patient denies personal or FHx of PUD, H Pylori, gastritis, pancreatitis, colitis, Celiac disease, UC, Crohn's disease, IBS, colon or gastric cancers. Pt denies EtOH, tobacco, illicit substance or NSAID use. Past gastro testin09/21/25 ALT 20 AST 28 ALP 58 Total Bilirubin 0.5 Hgb 11.7 Hct 36.1 Plt 189 CTAP w/ contrast 04/2025: chronic anterior abdominal wall fat herniation. Colonic diverticulosis. Chronic high grade celiac and superior mesenteric arterial ostial stenoses. Subjective Review of Systems: Review of Systems Constitutional: Negative for chills, fever and unexpected weight loss. HENT: Positive for trouble swallowing. Respiratory: Negative for chest tightness and shortness of breath. Cardiovascular: Negative for chest pain and palpitations. Gastrointestinal: Negative for abdominal pain, blood in stool, constipation, diarrhea, nausea, vomiting, GERD and indigestion. Neurological: Negative for dizziness and light-headedness. Past Medical History: Past Medical History: Diagnosis Date Acute on [...] ICD-9; Seizures Sleep apnea Past Surgical History: Past Surgical History: Procedure Laterality Date BREAST LUMPECTOMY CARDIAC CATHETERIZATION N/A 09/21/2025 Procedure: Left Heart Cath - Right radial access; Surgeon: Justin Moses MD; Location: [facility] CATH INVASIVE LOCATION; Service: Cardiovascular; Laterality: N/A; CARDIAC DEFIBRILLATOR PLACEMENT GALLBLADDER SURGERY GUM SURGERY HERNIA REPAIR HYSTERECTOMY NERVE REPAIR Left SUBCLAVIAN / PULMONARY SHUNT Family History: No family history on file. Social History: Social History Socioeconomic History Marital status: Tobacco Use Smoking status: Former Current packs/day: 1.00 Types: Cigarettes Passive exposure: Past Smokeless tobacco: Never Vaping Use Vaping status: Never Used Substance and Sexual Activity Alcohol use: Not Currently Drug use: Never Sexual activity: Defer Alcohol/Tobacco History: Social History Substance and Sexual Activity Alcohol Use Not Currently Social History Tobacco Use Smoking Status Former Current packs/day: 1.00 Types: Cigarettes Passive exposure: Past Smokeless Tobacco Never Medications: Current Outpatient Medications: acetaminophen (TYLENOL) 325 MG [...] (Two) Times a Day., Disp: , Rfl: loratadine (CLARITIN) 10 MG [...] Disp: 25 tablet, Rfl: 5 nystatin (MYCOSTATIN) 910191 UNIT/GM cream, Apply 2 applications topically daily [...] HOURS NEEDED FOR PAIN, Disp: , Rfl: famotidine (PEPCID) 20 MG tablet, Take 1 tablet by mouth 2 (Two) Times a Day., Disp: 60 tablet, Rfl: 5 levothyroxine (SYNTHROID, LEVOTHROID) 88 MCG tablet, Take 1 tablet by mouth Daily., Disp: 30 tablet, Rfl: 0 Allergies: Allergies Allergen Reactions Alendronate Sodium Hives Gabapentin Irritability Penicillins Hives, Itching and Unknown - Low Severity Sulfa Antibiotics Unknown - Low Severity Tamsulosin Other (See Comments) Sick to stomach Objective Physical Exam: Vital Signs: Vitals: 10/10/25 1326 BP: 146/90 BP Location: Right arm Patient Position: Sitting Cuff Size: Adult Pulse: 66 Temp: 97.3 ??F (36.3 ??C) TempSrc: Temporal SpO2: 97% Weight: 74.8 kg (165 lb) Height: 152.4 cm (60 ) PainSc: 0-No pain Body mass index is 32.22 kg/m??. Physical Exam Vitals reviewed. Constitutional: General: She is not in acute distress. Appearance: Normal appearance. She is not ill-appearing. HENT: Head: Normocephalic and atraumatic. Eyes: General: No scleral icterus. Pupils: Pupils are equal, round, and reactive to light. Cardiovascular: Rate and Rhythm: Normal rate and regular rhythm. Pulses: Normal pulses. Heart sounds: Normal heart sounds. Pulmonary: Effort: Pulmonary effort is normal. Breath sounds: Normal breath sounds. Abdominal: General: Abdomen is flat. Bowel sounds are normal. There is no distension. Palpations: Abdomen is soft. Tenderness: There is no abdominal tenderness. There is no guarding or rebound. Skin: General: Skin is warm. Coloration: Skin is not jaundiced. Neurological: General: No focal deficit present. Mental Status: She is alert and oriented to person, place, and time. Psychiatric: Mood and Affect: Mood normal. Assessment / Plan Assessment/Plan: Diagnoses and all orders for this visit: 1. Gastroesophageal reflux disease without esophagitis (Primary) - famotidine (PEPCID) 20 MG tablet; Take 1 tablet by mouth 2 (Two) Times a Day. Dispense: 60 tablet; Refill: 5 - Ambulatory referral for Screening EGD 2. Esophageal dysphagia - Ambulatory referral for Screening EGD 3. Abnormal CT of the abdomen - Ambulatory referral for Screening EGD - Ambulatory Referral to Vascular Surgery 4. Celiac artery stenosis - Ambulatory referral for Screening EGD 5. Superior mesenteric artery stenosis - Ambulatory referral for Screening EGD -pleasant 70 year old female here for presents for history of esophageal dysphagia for last 1 year,but reports same complaints in the past that have required esophageal dilation. She is having frequent reflux symptoms on her PPI therapy once daily that had previously managed her indigestion. - continue Omeprazole 40 mg daily. Add Pepcid 20 mg BID. -patient to reach out in 1-2 weeks regarding her change in symptoms -Counseled on GERD lifestyle and dietary modifications -avoid spicy foods, carbonated beverages and NSAIDs advised to consume foods with soft, moist textures. Avoid dry, coarse foods, spicy or acidic items,carbonated beverages or sticky or doughy foods. Encouraged to sit upright during and after meals for 30-45 minutes. Avoid eating close to bedtime. -discussed options for evaluating her symptoms with either an esophagram v EGD. Pt reports she has required intervention with esophageal dilation in the past for these same symptoms. Plan to schedulefor EGD , but pending cardiac and neurology clearance -vascular surgery referral placed for incidentally noted celiac artery and SMA stenosis on CTAP w/ contrast from 04/26/25 from outside facility. She is currently asymptomatic at this time. -will obtain prior colonoscopy and EGD records from [facility] in [place], [place] - follow up in clinic in 3 months, or after completion of above studies - call clinic at any time for questions or new / worsened sx Follow Up: Return after scopes. Time Statement: Discussed plan of care in detail with patient today. Patient verbally understands and agrees. I have spent 60 minutes reviewing available diagnostics, obtaining history, examining thepatient, developing a treatment plan, and educating the patient on disease process and plan of care. Plan of care reviewed with the patient at the conclusion of today's visit. Education was provided regarding diagnosis, management, and any prescribed or recommended OTC medications. Patient verbalized understanding of and agreement with management plan. NOTE TO PATIENT: The Cures Act makes medical notes like these available to patients inthe interest of transparency. However, be advised this is a medical document. It is intended as peer to peer communication. It is written in medical language and may contain abbreviations or verbiagethat are unfamiliar. It may appear blunt or direct. Medical documents are intended to carry relevant information, facts as evident, and the clinical opinion of the practitioner. Shahla Troy PA-C [facility] Gastroenterology documented in this encounter Plan of Treatment Upcoming Encounters Date Type Department Care Team (Late st Contact Info) Description 10/31/2025 9:00 AM EST Office Visit [facility]ARDIOLOGY [address] [phone] Nereida Ambrose APRN [address] [place] [address] 11/13/2025 2:30 PM EST Office Visit [facility] NEUROLOGY [address] [place] [address] [address] [place] [address] Camille Spann APRN [address] [facility] [address] [address] 02/09/2026 2:15 PM EDT Office Visit [facility] [address] [facility] [address] [place] [address] Shahla Troy PA-C [address] [facility] [address] [place], [place] [id number] Scheduled Referrals Name Type Priority Associated Diagnoses Order Schedule Ambulatory referral for Screening EGD Outpatient Referral Routine Gastroesophageal reflux disease without esophagitis Esophageal dysphagia Abnormal CT of the abdomen 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 Ordered: 10/10/2025 documented as of this encounter Visit Diagnoses Diagnosis Gastroesophageal reflux disease without esophagitis- Primary Esophageal reflux Esophageal dysphagia Dysphagia, pharyngoesophageal phase Abnormal CT of the abdomen Nonspecific (abnormal) findings on radiological and other examination of abdominal area, including retroperitoneum Celiac artery stenosis Stricture of artery Superior mesenteric artery stenosis Stricture of artery documented in this encounter Care Teams Labor And Delivery Nurse Relationship Specialty Start Date End Date Marly Kumar APRN [address] [place] [id number] PCP - General Family Medicine 07/06/24 documented as of this encounter
--- OUTSIDE RECORDS SUMMARY | 2025-10-11 10:00 | XMS_ITS | Encounter Summary ---
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) Nonepileptic episode (HCC) Procedures EEG Continuous Video Monitoring Rad Duong MD [address] [facility] [address] [place] [address] Phone: tel: fax: [facility] Neurodiagnostic Services [address] [place] [phone] Phone: tel: fax: Referral ID Status Reason Start Date Expiration Date V isits Requested Visits Authorized [id number] Authorized 10/18/2025 10/18/2026 1 1 Reason for [...] Description 10/11/2025 10:00 AM EST Office Visit [facility] Neurology [address] [place] [address] [address] [place] [address] Rad Duong MD [address] [facility] [address] [place] [address] Localization-relate d epilepsy with complex [...] Author 62 10/11/2025 9:55 AM Tiarra Blancas ASSISTANT PROGRAM MANAGER * SpO2 Answer Date of Assessment Author 98 10/11/2025 9:55 AM SPEED BELT SANDER TENDER Celestina, D eborah L, ASSISTANT PROGRAM MANAGER * Height Answer Date of Assessment Author 60 10/11/2025 9:55 AM Tiarra Blancash L, ASSISTANT PROGRAM MANAGER * Weight Answer Date of Assessment Author 2624 10/11/2025 9:55 AM Tiarra Blancash L, ASSISTANT PROGRAM MANAGER * Tidal Volume Answer Date of Assessment Author 270 10/11/2025 9:55 AM Tiarra Blancasorah L, ASSISTANT PROGRAM MANAGER * Shock Index Answer Date of Assessment Author 0.38 10/11/2025 9:55 AM Tiarra Blancasorah L, ASSISTANT PROGRAM MANAGER * BMI (Calculated) Answer Date of Assessment Author 32 10/11/2025 9:55 AM Tiarra Blancasorah L, ASSISTANT PROGRAM MANAGER * BP Answer Date of Assessment Author 165/78 10/11/2025 9:55 AM Tiarra Blancash L, ASSISTANT PROGRAM MANAGER * Pulse Answer Date of Assessment Author 62 10/11/2025 9:55 AM Tiarra Blancasorah L, ASSISTANT PROGRAM MANAGER * SpO2 Answer Date of Assessment Author 98 10/11/2025 9:55 AM Tiarra Blancash L, ASSISTANT PROGRAM MANAGER * BMI (Calculated) Answer Date of Assessment Author 32 10/11/2025 9:55 AM Tiarra Blancash L, ASSISTANT PROGRAM MANAGER documented as of this encounter Mental Status * BP Answer Entry Date Author 165/78 10/11/2025 9:55 AM Tiarra Blancas L, ASSISTANT PROGRAM MANAGER * Temp Answer Entry Date Author 98.1 10/11/2025 9:55 AM Tiarra Blancas L, ASSISTANT PROGRAM MANAGER * Temp src Answer Entry Date Author Tympanic 10/11/2025 9:55 AM Tiarra Blancash L, ASSISTANT PROGRAM MANAGER * Pulse Answer Entry Date Author 62 10/11/2025 9:55 AM Tiarra Blancasorah L, ASSISTANT PROGRAM MANAGER * SpO2 Answer Entry Date Author 98 10/11/2025 9:55 AM Tiarra Blancas L, ASSISTANT PROGRAM MANAGER * Height Answer Entry Date Author 60 10/11/2025 9:55 AM Tiarra Blancas L, ASSISTANT PROGRAM MANAGER * Weight Answer Entry Date Author 2624 10/11/2025 9:55 AM Tiarra Blancas L, ASSISTANT PROGRAM MANAGER * Tidal Volume Answer Entry Date Author [...] 2+ 2+ Achilles 2+ 2+ Coordination Right: Rtukbi-wx-mydd normal. Rapid alternating movement normal.Left: Magbvl-el-wzun normal. Rapid alternating movement normal. 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 She has recently been on a combination [...] and counseling, formulation of plans and documentation D BELT SANDER TENDER documented in this encounter Plan of Treatment [...] (HCC) documented in this encounter Care Teams Cafe Assistant Relationship Specialty Start Date End Date Marly Kumar, DUNG [address] [place] [address] PCP - General Nurse Practitioner 09/22/24 documented as of this encounter
--- OUTSIDE RECORDS SUMMARY | 2025-10-17 | XMS_ITS | Encounter Summary ---
Author Organization [facility] Address [address] [place] [id number] Care Team Providers Care Senior Quality Assurance Analyst Name Role Phone Jessie Payne APRN Unavailable Marly Gomez APRN Primary Care Provider [phone] Encounter Details Date Type Department Care Team (Latest Contact Info) Description 10/17/2025 - 10/17/2025 11:59 PM [facility] Hospital Encounter [facility] [address] [phone] Encounter for other specified special examinations Discharge Disposition: Home or Self Care Social [...] drink first t zander in the morning (EYE-ANGIOGRAPHY TECHNOLOGIST) to steady your nerves or to [...] Kevin Schmidt RN documented in this encounter Medications at Time of Discharge acetaminophen (Tylenol Extra Strength) 500 MG tablet Take 1-2 tablets every 6 hours as needed for pain or fever 06/07/2025 aspirin 81 MG EC tablet Take 1 tablet by mouth 1 time each day. atorvastatin (Lipitor) 40 MG tablet Take 1 tablet by mouth nightly. azithromycin (Zithromax) 250 MG tablet TAKE 2 TABLETS BY MOUTH ON DAY 1, THEN TAKE 1 TABLET DAILY ON DAYS 2-5 03/29/2025 benzonatate (Tessalon) 200 MG capsule Take 1 capsule by mouth 3 times a day as needed. 03/29/2025 bisoprolol (Zebeta) 5 MG tablet Take 1 tablet by mouth 1 time each day. 06/21/2025 Calcium Carb-Cholecalciferol 600-10 MG-MCG tablet Take 1 tablet by mouth daily. 02/20/2025 divalproex (Depakote) [address] tablet Take 1 tablet by mouth 2 times a day. doxycycline (Vibramycin) 100 MG capsule Take 1 capsule by mouth 2 times a day. 02/01/2025 fenofibrate (Tricor) 145 MG tablet Take 1 tablet by mouth 1 time each day. furosemide (Lasix) 40 MG tablet Take 1 tablet by mouth twice a day. 03/17/2025 hydrOXYzine HCl (Atarax) 25 MG tablet Take 1 tablet by mouth every 6 hours as needed. lactulose (Chronulac) 10 GM/15ML oral solution Take 15 mL by mouth 2 times a day. 04/26/2025 levETIRAcetam (Keppra) 1000 MG tablet Take 1 tablet by mouth twice a day. levoFLOXacin (Levaquin) 750 MG tablet Take 250 mg by mouth daily. 02/21/2025 magnesium oxide (Mag-Ox) 400 MG tablet Take 1 tablet by mouth 1 time each day. 08/22/2024 methylPREDNISolone (Medrol Dospak) 4 MG tablets Take 1 tablet by mouth. 12/07/2024 metoclopramide (Reglan) 5 MG tablet Take 1 tablet by mouth 4 times a day. nitroglycerin (Nitrostat) 0.[address] 1 tablet under the tongue every 5 minutes as needed for chest pain. 02/01/2025 nystatin (Mycostatin) cream Apply topically as needed. 04/11/2025 omeprazole (PriLOSEC) [address] capsule Take 1 capsule by mouth every morning. ondansetron ODT (Zofran-ODT) 8 MG disintegrating tablet Dissolve 1 tablet on the tongue every 8 hours as needed for nausea or vomiting. predniSONE (Deltasone) 50 MG tablet Take 1 tablet by mouth daily. 02/21/2025 tiZANidine (Zanaflex) 4 MG tablet Take 1 tablet by mouth every 6 hours as needed for muscle spasms. 08/22/2024 documented as of this encounter Plan of Treatment Upcoming Encounters Date Type Department Care Team (Late st Contact Info) Description 11/23/2025 9:00 AM EST Appointment [facility] Breast [facility] [address] [place] [address] 11/23/2025 9:30 AM EST Appointment [facility] [address] [place] [address] 11/23/2025 1:00 PM EST Appointment [facility] [address] [facility] [address] [place] [address] documented as of this encounter Procedures Procedure Name Priority Date/Time Associated Diagnosis Comments MAMMOGRAPHY OUTSIDE IMAGES UPLOAD Routine 10/17/2025 12:00 AM EST Encounter for other specified special examinations documented in this encounter Results * Mammography Outside Images Upload (10/17/2025 12:00 AM EST) Narrative IMAGING - 10/24/2025 11:28 AM EST [...] documented as of this encounter Care Teams Senior Quality Assurance Analyst Relationship Specialty Start Date End Date Marly Kumar APRN [address] [place] [address] PCP - General 06/09/25 Jessie Payne APRN 08/07/23 documented as of this encounter
[2025-10-28] VITALS (8 sets, daily range): BP systolic 119–146; BP diastolic 64–81; PULSE 70–96; RESP 16–20; TEMP 36.6–36.9; O2SAT 95–97; BMI 32.0
--- OUTSIDE RECORDS SUMMARY | 2025-10-28 10:32 | XMS_ITS | Encounter Summary ---
Author Organization [employer] ([place], [place], [place], [place], [place]) Address [address] [place] [address] Care Team Providers Care Stove Mechanic Name Role Phone Marly Kumar AUTO DESIGN CHECKER Primary Care Provider [phone] Encounter Details Date Type Department Care Team (Late st Contact Info) Description 07/26/2020 Transcribed Document [facility] [place] [facility] [place] [address] ProviderMiya MD [address] [place] [address] Social History Tobacco Use Types Packs/Day [...] On: 07/26/2020 16:03 EDT by EDISON FONTANEZ, RN-Division Order TechnicianOcean Freight Forwarder Progress Note Discharge Arrangements : Patient Post-Acute [...] Attend Multidisciplinary Rounds? : No EDISON FONTANEZ, RN-Division Order Technician - 07/26/2020 16:03 EDT Narrative Progress Note Narrative Progress Note : On continuous EEG monitoring. EDISON FONTANEZ RN-Division Order Technician - 07/26/2020 16:03 EDT Electronically signed by Celestine [facility] Conversion Construction Representative Cerner at 02/19/2023 6:34 PM CDT documented in this encounter Plan of Treatment Not on file documented as of this encounter Visit Diagnoses Not on filedocumented in this encounter Care Teams Stove Mechanic Relationship Specialty Start Date End Date Marly Kumar NP [address] [place] [address] PCP - General Nurse Practitioner 09/22/24 documented as of this encounter
--- OUTSIDE RECORDS SUMMARY | 2025-10-28 10:32 | XMS_ITS | Continuity of Care Document ---
Author Organization [employer] [facility] Address [address] [place] [address] Care Team Providers Care Pharmacist Name Role Phone KIMBERLY SUMMERS Community Health Worker [phone] Assessment Encounter Date Assessment Date Assessment LastModified by Organization Details LastModified Time 09/27/2025 09/27/2025 She wants to update her HIPPA agreement - told me not to call her daughter Debi back. She is A&O x 4 today and competent to make this decision. Return to clinic next week for labs. Keep planned appt with cardiology. Follow up in a month to recheck, sooner if needed Not available 10/04/2025 15:20:08 Plan of Treatment Reminders Order Date Submit Date Provider Last Modified By Organization Details Last Modified Time Details Appointments TRANSP ORTATI ON 2025 01:30P M Transporter Not available Not available Not available FOLLOW UP 2025 02:00P M Marly Kumar Not available Not available Not available Lab arthurami shanika D, 25-hyd jeni, total, serum 2024 025 [place] [facility] ([place] [address] [place], [address], 10/05/2025 08:14:07 lipid panel, serum 2024 025 [place] [facility] ([place] [address] [place], [address], 10/05/2025 08:14:07 CMP, serum or plasma 2024 025 ERICH [facility] ([place]), [address] [facility], [place], [address], 10/05/2025 08:14:06 magnes ium, serum or plasma 2024 025 ERICH [facility] ([place]), [address] [facility], [place], [address], 10/05/2025 08:14:08 CBC w/ auto diff 2024 025 ERICH [facility] ([place]), [address] [facility], [place], [address], 10/05/2025 08:14:05 TSH + free T4, serum 2024 025 ERICH [facility] ([place]), [address] [facility], [place], [address], 10/05/2025 08:14:05 Referral None record ed. Procedures None record ed. Surgeries None record ed. Imaging None record ed. Medication Orders None record ed. Patient TargetsNo targets recorded. Patient InstructionsNo instructions recorded. Reason for Referral None Reported. Results Created Date Observation Date Name Description Value Unit Range Abnormal Flag Note LastModifiedBy Organization Detail LastModifiedTime 10/04/2010/05/2025 TSH+F REE T4 TSH 3.410 uIU/m L 0.450- 4.500 normal Not Available [facility] ([facility]) [address] [facility], [place], [address], 10/05/2025 08:14:05 10/04/20 25 10/05/2025 TSH+F REE T4 T4,free([facility]) 1.31 NG/dL 0.82-1 .77 normal Not Available [facility] ([facility]) [address] [facility], [place], [address], 10/05/2025 08:14:05 10/04/20 25 10/05/2025 CBC WITH DIFFE RENTI AL/PL ATELE T WBC 5.0 x10e3 /uL 3.4-10 .8 normal Not Available [facility] ([facility]) [address] [facility], [place], [address], 10/05/2025 08:14:05 10/04/20 25 10/05/2025 CBC WITH DIFFE RENTI AL/PL ATELE T RBC 4.21 x10e6 /uL 3.77-5 .28 normal Not Available [facility] ([facility]) [address] [facility], [place], [address], 10/05/2025 08:14:05 10/04/20 25 10/05/2025 CBC WITH DIFFE RENTI AL/PL ATELE T hemoglobin 12.7 g/dL 11.1-1 5.9 normal Not Available [facility] ([facility]) [address] [facility], [place], [address], 10/05/2025 08:14:05 10/04/20 25 10/05/2025 CBC WITH DIFFE RENTI AL/PL ATELE T hematocrit 39.0 % 34.0-4 6.6 normal Not Available [facility] ([facility]) [address] [place], [address], 10/05/2025 08:14:05 10/04/20 25 10/05/2025 CBC WITH DIFFE RENTI AL/PL ATELE T MCV 93 fL 79-97 normal Not Available [facility] ([facility]) [address] [place], [address], 10/05/2025 08:14:05 10/04/20 25 10/05/2025 CBC WITH DIFFE RENTI AL/PL ATELE T MCH 30.2 pg 26.6-3 3.0 normal Not Available [facility] ([facility]) [address] [place], [address], 10/05/2025 08:14:05 10/04/20 25 10/05/2025 CBC WITH DIFFE RENTI AL/PL ATELE T MCHC 32.6 g/dL 31.5-3 5.7 normal Not Available [facility] ([facility]) [address] [facility], [place], [address], 10/05/2025 08:14:05 10/04/20 25 10/05/2025 CBC WITH DIFFE RENTI AL/PL ATELE T RDW 14.0 % 11.7-1 5.4 Not Available [facility] ([facility]) [address] [facility], [place], [address], 10/05/2025 08:14:05 10/04/20 25 10/05/2025 CBC WITH DIFFE RENTI AL/PL ATELE T platelets 302 x10e3 /uL 150-45 0 normal Not Available [facility] ([facility]) [address] [facility], [place], [address], 10/05/2025 08:14:05 10/04/20 25 10/05/2025 CBC WITH DIFFE RENTI AL/PL ATELE T neutrophils 42 % not estab. normal Not Available [facility] ([facility]) [address] [facility], [place], [address], 10/05/2025 08:14:05 10/04/20 25 10/05/2025 CBC WITH DIFFE RENTI AL/PL ATELE T lymphs 45 % not estab. normal Not Available [facility] ([facility]) [address] [facility], [place], [address], 10/05/2025 08:14:05 10/04/20 25 10/05/2025 CBC WITH DIFFE RENTI AL/PL ATELE T monocytes 8 % not estab. normal Not Available [facility] ([facility]) [address] [facility], [place], [address], 10/05/2025 08:14:05 10/04/20 25 10/05/2025 CBC WITH DIFFE RENTI AL/PL ATELE T eos 4 % not estab. normal Not Available [facility] ([facility]) [address] [facility], [place], [address], 10/05/2025 08:14:05 10/04/20 25 10/05/2025 CBC WITH DIFFE RENTI AL/PL ATELE T basos 1 % not estab. normal Not Available [facility] ([facility]) [address] [facility], [place], [address], 10/05/2025 08:14:05 10/04/20 25 10/05/2025 CBC WITH DIFFE RENTI AL/PL ATELE T immature cells OILER BANDER Not Available [facility] ([facility]) [address] [facility], [place], [address], 10/05/2025 08:14:05 10/04/20 25 10/05/2025 CBC WITH DIFFE RENTI AL/PL ATELE T neutrophils (absolute) 2.1 x10e3 /uL 1.4-7. 0 normal Not Available [facility] ([facility]) [address] [facility], [place], [address], 10/05/2025 08:14:05 10/04/20 25 10/05/2025 CBC WITH DIFFE RENTI AL/PL ATELE T lymphs (absolute) 2.3 x10e3 /uL 0.7-3. 1 normal Not Available [facility] ([facility]) [address] [place], [address], 10/05/2025 08:14:05 10/04/20 25 10/05/2025 CBC WITH DIFFE RENTI AL/PL ATELE T monocytes(ab solute) 0.4 x10e3 /uL 0.1-0. 9 normal Not Available [facility] ([facility]) [address] [place], [address], 10/05/2025 08:14:05 10/04/20 25 10/05/2025 CBC WITH DIFFE RENTI AL/PL ATELE T eos (absolute) 0.2 x10e3 /uL 0.0-0. 4 normal Not Available [facility] ([facility]) [address] [facility], [place], [address], 10/05/2025 08:14:05 10/04/20 25 10/05/2025 CBC WITH DIFFE RENTI AL/PL ATELE T baso (absolute) 0.0 x10e3 /uL 0.0-0. 2 normal Not Available [facility] ([facility]) [address] [facility], [place], [address], 10/05/2025 08:14:05 10/04/20 25 10/05/2025 CBC WITH DIFFE RENTI AL/PL ATELE T immature granulocytes 0 % not estab. Not Available [facility] ([facility]) [address] [facility], [place], [address], 10/05/2025 08:14:05 10/04/20 25 10/05/2025 CBC WITH DIFFE RENTI AL/PL ATELE T immature grans (abs) 0.0 x10e3 /uL 0.0-0. 1 Not Available [facility] ([facility]) [address] [place], [address], 10/05/2025 08:14:05 10/04/20 25 10/05/2025 CBC WITH DIFFE RENTI AL/PL ATELE T NRBC OILER BANDER Not Available [facility] ([facility]) [address] [place], [address], 10/05/2025 08:14:05 10/04/20 25 10/05/2025 CBC WITH DIFFE RENTI AL/PL ATELE T hematology comments: OILER BANDER Not Available [facility] ([facility]) [address] [place], [address], 10/05/2025 08:14:05 10/04/20 25 10/05/2025 COMP. METAB OLIC PANEL (14) glucose 96 mg/dL 70-99 normal Not Available [facility] ([facility]) [address] [facility] [place], [address], 10/05/2025 08:14:06 10/04/20 25 10/05/2025 COMP. METAB OLIC PANEL (14) BUN 24 mg/dL 8-27 normal Not Available [facility] ([facility]) [address] [place], [address], 10/05/2025 08:14:06 10/04/20 25 10/05/2025 COMP. METAB OLIC PANEL (14) creatinine 0.95 mg/dL 0.57-1 .00 normal Not Available [facility] ([facility]) [address] [place], [address], 10/05/2025 08:14:06 10/04/20 25 10/05/2025 COMP. METAB OLIC PANEL (14) eGFR 64 mL/mi n/1.7 3 >59 normal Not Available [facility] ([facility]) [address] [facility] [place], [address], 10/05/2025 08:14:06 10/04/20 25 10/05/2025 COMP. METAB OLIC PANEL (14) BUN/creatini ne ratio 25 12-28 normal Not Available [facility] ([facility]) [address] [facility] [place], [address], 10/05/2025 08:14:06 10/04/20 25 10/05/2025 COMP. METAB OLIC PANEL (14) sodium 145 mmol/ L 134-14 4 above high normal Not Available [facility] ([facility]) [address] [facility] [place], [address], 10/05/2025 08:14:06 10/04/20 25 10/05/2025 COMP. METAB OLIC PANEL (14) potassium 4.1 mmol/ L 3.5-5. 2 normal Not Available [facility] ([facility]) [address] [facility] [place], [address], 10/05/2025 08:14:06 10/04/20 25 10/05/2025 COMP. METAB OLIC PANEL (14) chloride 106 mmol/ L 96-106 normal Not Available [facility] ([facility]) [address] [place], [address], 10/05/2025 08:14:06 10/04/20 25 10/05/2025 COMP. METAB OLIC PANEL (14) carbon dioxide, total 23 mmol/ L 20-29 normal Not Available [facility] ([facility]) [address] [place], [address], 10/05/2025 08:14:06 10/04/20 25 10/05/2025 COMP. METAB OLIC PANEL (14) calcium 10.1 mg/dL 8.7-10 .3 normal Not Available [facility] ([facility]) [address] [place], [address], 10/05/2025 08:14:06 10/04/20 25 10/05/2025 COMP. METAB OLIC PANEL (14) protein, total 7.0 g/dL 6.0-8. 5 normal Not Available [facility] ([facility]) [address] [place], [address], 10/05/2025 08:14:06 10/04/20 25 10/05/2025 COMP. METAB OLIC PANEL (14) albumin 4.2 g/dL 3.8-4. 8 normal Not Available [facility] ([facility]) [address] [place], [address], 10/05/2025 08:14:06 10/04/20 25 10/05/2025 COMP. METAB OLIC PANEL (14) globulin, total 2.8 g/dL 1.5-4. 5 Not Available [facility] ([facility]) [address] [place], [address], 10/05/2025 08:14:06 10/04/20 25 10/05/2025 COMP. METAB OLIC PANEL (14) bilirubin, total 0.3 mg/dL 0.0-1. 2 normal Not Available [facility] ([facility]) [address] [place], [address], 10/05/2025 08:14:06 10/04/20 25 10/05/2025 COMP. METAB OLIC PANEL (14) alkaline phosphatase 66 IU/L 49-135 normal Not Available [facility] ([facility]) [address] [facility] [place], [address], 10/05/2025 08:14:06 10/04/20 25 10/05/2025 COMP. METAB OLIC PANEL (14) AST (SGOT) 26 IU/L 0-40 normal Not Available [facility] ([facility]) [address] [place], [address], 10/05/2025 08:14:06 10/04/20 25 10/05/2025 COMP. METAB OLIC PANEL (14) ALT (SGPT) 16 IU/L 0-32 normal Not Available [facility] ([facility]) [address] [place], [address], 10/05/2025 08:14:06 10/04/20 25 10/05/2025 LIPID PANEL cholesterol, total 111 mg/dL 100-19 9 normal Not Available [facility] ([facility]) [address] [place], [address], 10/05/2025 08:14:06 10/04/20 25 10/05/2025 LIPID PANEL triglyceride s 96 mg/dL 0-149 normal Not Available [facility] ([facility]) [address] [place], [address], 10/05/2025 08:14:06 10/04/20 25 10/05/2025 LIPID PANEL HDL cholesterol 43 mg/dL >39 normal Not Available [facility] ([facility]) [address] [facility] [place], [address], 10/05/2025 08:14:06 10/04/20 25 10/05/2025 LIPID PANEL VLDL cholesterol kayla 18 mg/dL 5-40 Not Available [facility] ([facility]) [address] [facility], [place], [address], 10/05/2025 08:14:06 10/04/20 25 10/05/2025 LIPID PANEL LDL chol calc ([facility]) 50 mg/dL 0-99 Not Available [facility] ([facility]) [address] [facility], [place], [address], 10/05/2025 08:14:06 10/04/20 25 10/05/2025 LIPID PANEL LDL calc comment: OILER BANDER Not Available [facility] ([facility]) [address] [facility], [place], [address], 10/05/2025 08:14:06 10/04/20 25 10/05/2025 VITAM IN D, 25-HY DROXY vitamin D, 25-hydroxy 25.9 NG/mL 30.0-1 00.0 below low normal Vitam in D defic iency has been defin ed by the Insti tute of Medic ine and an Endoc rine Socie ty pract ice guide line as a level of serum 25-OH vitam in D less than 20 ng/mL (1,2) . The Endoc rine Socie ty went on to furth er defin e vitam in D insuf ficie ncy as a level betwe en 21 and 29 ng/mL (2). 1. IOM (Inst itute of Medic ine). 2010. Dieta ry refer ence kya es for calci um and D. Dean graff [place]: The [facility]io nal [facility] . 2. Rosa COHEN, Talia marin [place], Denisha off-F errgriffin i BURTON, et al. Evalu ation , treat ment, and preve ntion of vitam in D defic iency : an Endoc rine Socie ty clini kayla pract ice guide line. JCEM. 2010; 96(7) :1911 -30. Not Available [facility] ([facility]) [address] [facility], [place], [address], 10/05/2025 08:14:07 10/04/20 25 10/05/2025 MAGNE SIUM magnesium 1.7 mg/dL 1.6-2. 3 normal Not Available [facility] ([facility]) [address] [facility], [place], [address], 10/05/2025 08:14:07 10/18/20 25 10/17/2025 MAMMO , diagn ostic , digit al, unila teral No observ ation record ed. [address] [employer] [address] , [place], [address], 10/19/2025 14:44:04 10/19/20 25 10/17/2025 MAMMO , diagn ostic , digit al, unila teral No observ ation record ed. [address] [employer] Scheduling [address], [place], [address], 10/19/2025 14:44:04 10/24/20 25 10/24/2025 imagi ng/di agnos tic resul t No observ ation record ed. [address], [place], [address], 10/25/2025 09:49:25 10/24/20 25 10/24/2025 imagi ng/di agnos tic resul t No observ ation record ed. [address], [place], [address], 10/25/2025 09:49:25 Result Notes None recorded. Problems Name Problem SNOMED Code Status Onset Date Resolution Date Notes Provider Name and Address Organization Details Recorded Time Acute on chronic systolic heart failure 875807461 Completed 201611/25/2016 Not Available [facility] 21:36:04 Bronchop neumonia 530335441 Completed 201601/19/2017 Problem Code: J18.0; Problem Code Type: ICD-10; Not Available [facility] 21:36:04 Congesti ve heart failure 51795481 Completed 201611/25/2016 Problem Code: 428.0; Problem Code Type: ICD-9; Not Available [facility] 21:36:05 Pneumoco ccal pneumoni a 808528374 Completed 201601/19/2017 Problem Code: 481; Problem Code Type: ICD-9; Not Available [facility] 21:36:05 Bronchop neumonia 847310603 Completed 201601/24/2017 Problem Code: J18.0; Problem Code Type: ICD-10; Not Available [facility] 21:36:04 Pneumoco ccal pneumoni a 841340833 Completed 201601/24/2017 Problem Code: 481; Problem Code Type: ICD-9; Not Available [facility] 21:36:05 Pain of left wrist 21148780616 9102 Completed 201604/25/2017 Problem Code: M25.532; Problem Code Type: ICD-10; Not Available [facility] 21:36:04 Localize d edema 052740256 Completed 201604/25/2017 Problem Code: R60.0; Problem Code Type: ICD-10; Not Available [facility] 21:36:05 Pain of joint of wrist 403313100 Completed 201604/25/2017 Problem Code: 719.43; Problem Code Type: ICD-9; Not Available [facility] 21:36:05 Edema 528846200 Completed 201604/25/2017 Problem Code: 782.3; Problem Code Type: ICD-9; Not Available [facility] 21:36:05 Hyperten sive disorder 92729373 Completed 202209/27/2025 Marly Kumar APRN [address] [place], [address] , [employer] 5 08:49:10 Hyperlip idemia 83183367 Completed 202203/29/2025 Marly Kumar [employer] [address] [place] [address], [address] , [employer] 5 09:38:16 Chronic obstruct mark pulmonar y disease 97088735 Active [address], [address] , [employer] 3 14:59:59 Hypothyr oidism 60271985 Active [address], [address] , [employer] 3 15:01:45 Monitori ng of pacemake r 05897974 Active [address], [address] , [employer] 3 15:22:52 Seizure disorder 435643066 Active 2022 Marly Kumar [employer] [address] [place] [address], [address] , [employer] 4 18:02:53 Memory impairme nt 699148095 Active 2022 Marly Kumar APRN [address] [place] [address], [address] , [employer] 4 18:02:44 Seasonal allergy 964622423 Active 2022 Marly Kumar APRN [address] [place] [address], [address] , [employer] 4 18:02:51 Nausea 855054839 Completed 202205/26/2024 Marly Kumar APRN [address] [place] [address], [address] , [employer] 5 08:49:37 Mixed hyperlip idemia 833193443 Active 2022 Marly Kumar APRN [address] [place] [address], [address] , [employer] 4 18:02:46 Anxiety disorder 755925127 Completed 202205/26/2024 Marly VLADIMIR KumarN [address] [place] [address], [address] , [place] [employer] 4 12:06:47 Insomnia 456144243 Active 2022 Marly VLADIMIR KumarN [address] [place] [address], [address] , [employer] 4 18:02:40 Hypomagn esemia 394605702 Completed 202205/26/2024 Marly Kumar [employer] [address] [place] [address], [address] , [employer] 5 08:53:13 Gastroes ophageal reflux disease without esophagi tis 147136767 Active 2022 Marly José, [employer] [address] [place] [address], [address] , [employer] 4 18:02:34 Hypokale caitlyn 42637286 Completed 202205/26/2024 Marly Kumar APRN [address] [place] [address], [address] , [employer] 5 09:20:02 Candidia sis of skin 08143149 Completed 202205/26/2024 Marly Kumar APRN [address] [place] [address], [address] , [employer] 5 14:39:29 Wound of skin 871633695 Completed 202209/27/2025 Marly Kumar APRN [address] [place] [address], [address] , [employer] 5 08:49:19 Localize d swelling of head 27765893633 250239 Completed 202305/26/2024 Marly Kumar APRN [address] [place] [address], [address] , [employer] 4 18:02:42 Chronic low back pain 900856319 Active 2023 Marly Kumar APRN [address] [place] [address], [address] , [employer] 4 18:02:29 Abnormal gait due to muscle weakness 155879515 Completed 202305/26/2024 Marly Kumar APRN [address] [place] [address], [address] , [employer] 4 12:06:44 Diarrhea 98693297 Completed 202305/26/2024 Marly Kumar APRN [address] [place] [address], [address] , [employer] 4 18:02:32 Numbness of hand 869225886 Completed 202309/08/2024 Marly Kumar APRN [address] [place] [address], [address] , [employer] 4 09:59:28 Peripher al demyelin ating neuropat hy 53086337 Active 2023 Marly JoséSHAKIRA frey [address] [place] [address], [address] , [employer] 4 09:59:26 Chronic back pain 982193119 Active 2023 Marly JoséSHAKIRA frey [address] [place] [address], [address] , [employer] 5 09:19:42 Osteopor osis 71464788 Active 2023 Marly Kumar APRN [address] [place] [address], [address] , [employer] 09:19:56 Hypokale caitlyn 57940458 Completed 202312/07/2024 Marly Kumar APRN [address] [place] [address], [address] , [employer] 09:20:02 Urinary incontin ence 952211550 Active 2023 Marly Kumar APRN [address] [place] [address], [address] , [employer] 09:19:58 Essentia l hyperten patricia 45455063 Active 2024 Marly Kumar APRN [address] [place] [address], [address] , [employer] 09:19:43 Pain of left knee joint 83823762878 4107 Completed 202401/23/2025 Marly Kumar APRN [address] [place] [address], [address] , [employer] 11:21:21 Restless legs syndrome 58166879 Active 2024 Marly Kumar APRN [address] [place] [address], [address] , [employer] 5 11:21:23 Bilatera l lower limb edema 753305883 Completed 202401/23/2025 Marly Kumar APRN [address] [place] [address], [address] , [employer] 5 11:21:15 Pain of bilatera l hands 39995916659 345618 Completed 202401/23/2025 Marly Kumar APRN [address] [place] [address], [address] , [employer] 5 11:21:18 Candidia sis of skin 58164978 Completed 202402/17/2025 Marly Kumar APRN [address] [place] [address], [address] , [place] [employer] 14:39:28 Cough 00048446 Completed 202409/27/2025 Marly KumarSHAKIRA [address] [place] [address], [address] [place] [address] , [employer] 08:49:24 Macromas tia 975673068 Completed 202409/27/2025 Marly Kumar APRN [address] [place] [address], [address] [place] [address] , [employer] 08:49:22 Mammogra phy abnormal 279573822 Active 2024 Marly HarrisSHAKIRA fery [address] [place] [address], [address] [place] [address] , [employer] 09:14:58 Pneumoni a 274571728 Completed 202403/29/2025 Marly Kumar APRN [address] [place] [address], [address] [place] [address] , [employer] 09:02:21 Acute cough Completed 202405/10/2025 Marly Kumar APRN [address] [place] [address], [address] [place] [address] , [employer] 10:28:29 Acute exacerba tion of chronic obstruct mark pulmonar y disease 138467473 Completed 202405/10/2025 Marly Kumar APRN [address] [place] [address], [address] [place] [address] , [employer] 10:28:27 Nausea 248634848 Completed 202409/27/2025 Marly Kumar APRN [address] [place] [address], [address] [place] [address] , [employer] 08:49:37 Quantity of physiolo gic substanc e outside referenc e range 399240857 Completed 202408/30/2025 Marly Kumar APRN [address] [place] [address], [address] , [employer] 13:00:44 Hypomagn esemia 767296882 Active 2024 Marly Kumar APRN [address] [place] [address], [address] , [place] [employer] 08:53:13 Fatigue 43897604 Completed 202408/30/2025 Marly Kumar APRN [address] [place] [address], [address] , [place] [employer] 13:00:51 Cobalami n deficien cy 421138191 Active 2024 Marly Kumar APRN [address] [place] [address], [address] , [employer] 13:00:55 Pain 71674474 Completed 202409/27/2025 Marly Kumar APRN [address] [place] [address], [address] , [place] [employer] 08:49:38 Pain in bilatera l feet 26360308611 571794 Active 2024 Marly Kumar APRN [address] [place] [address], [address] , [employer] 13:00:47 Paresthe herson of foot 247929074 Active 2024 Marly Kumar APRN [address] [place] [address], [address] , [place] [employer] 13:00:45 Anxiety 53746808 Active 2024 Marly Kumar APRN [address] [place] [address], [address] , [employer] 08:49:30 Fever 893199850 Completed 202408/30/2025 Marly Kumar APRN [address] [place] [address], [address] , [employer] 5 13:00:50 Vitamin D deficien 94694811 Active 2024 Marly Kumar, [employer] [address] [facility], [place], [address] , [employer] 5 10:35:10 Problem Notes None recorded. Procedures Surgical History Date Name Laterality Status Provider Name and Address Organization Details Recorded Time 11/02/19 23 Most Recent Mammogram completed Ruth Jolly [facility]. 11/26/2023 13:21:36 10/29/20 16 cholecystectomy completed Not Available [facility] 07/08/2022 22:56:19 10/29/20 16 hernia repair completed Not Available [facility] 07/08/2022 22:56:20 10/29/20 16 hysterectomy completed Not Available [facility] 07/08/2022 22:56:21 lumpectomy of right breast completed [employer] 08/19/2023 14:52:33 Imaging Results None recorded. Procedure Notes None recorded. Medical Equipment None Reported. Allergies Allergen ID Allergen Name Allergen Category Reaction Reaction Severity Criticality Documentation Date Start Date Code Code System Note Provider Name and Address Organization Details Recorded Time 49800 Product containin g penicilli n (product) medicatio n Not available Not available Not available 07/08/2022 20861 8001 SNOMED ALBERTO ROCK [employer] 3 14:43:11 88282 Substance with sulfonami de structure and antibacte rial mechanism of action (substanc e) medicatio n Not available Not available Not available 07/08/2022 19287 8003 SNOMED ALBERTO ROCK [employer] 3 14:43:16 25759 Fosamax medicatio n Not available Not available Not available 07/08/2022 86159 5 RxNorm Not Available [facility] 2 22:55:02 33442 tamsulosi n medicatio n other Not available low 09/25/20252022 13506 RxNorm Sick to stoma ch Not Available erich - External Data Service - prod 12:37:33 75497 alendroni c acid Not available Not available Not available Not available 09/25/2025 58318 3 RxNorm unrec ogniz ed react ion (text : Adver se react ion to subst ance, code: 65786 0009) (from exter nal sourc e) Not Available erich - External Data Service - prod 12:37:42 15989 gabapenti n medicatio n Not available Not available Not available 09/25/20252020 75480 RxNorm unrec ogniz ed react ion (text : Irrit abili ty, code: 02381 6000) (from exter nal sourc e) Not Available [facility] External Data Service - prod 12:37:54 03713 alendrona te sodium medicatio n Not available Not available low 09/25/20252016 48065 2 RxNorm Not Available [facility] External Data Service - [facility] 12:38:24 Medications Name Sig Start Date Stop Date Status Note LastModified by Organization Details LastModified Time quetiapine 25 mg tablet take ONE-HALF TABLET BY MOUTH every night FOR SLEEP active Not Available Not Available No t Available furosemide 40 mg tablet Take 1 tablet by mouth 2 (Two) Times a Day. active Not Available Not Available No t Available atorvastat in 40 mg tablet TAKE ONE TABLET BY MOUTH AT BEDTIME active Not Available Not Available No t Available carvedilol 6.25 mg tablet Take 1 tablet(s ) by mouth bid 08/19 completed Not Available Not Available Not Available doxycyclin e hyclate 100 mg capsule Take 1 capsule twice a day by oral route for 10 days. 08/25 completed Not Available Not Available Not Available ropinirole 1 mg tablet TAKE ONE TABLET BY MOUTH AT BEDTIME for restless legs active Not Available Not Available No t Available donepezil 5 mg tablet TAKE ONE TABLET BY MOUTH AT BEDTIME 09/08 completed Not Available Not Available Not Available carbidopa ER 25 mg-levodop a 100 mg tablet,ext ended release TAKE ONE TABLET EVERY EVENING, INCREASE TO THREE TIMES daily as tolerate d 10/18 /2023 completed Not Available Not Available Not Available [...] TAKE 1 TABLET DAILY ON DAYS 2-5 05/10 completed Not Available Not Available Not Available ofloxacin 0.3 % eye drops 05/10 completed Not Available Not Available Not Available tizanidine 4 mg tablet take ONE-HALF TABLET BY MOUTH EVERY 6 HOURS NEEDED FOR pain active Not Available Not Available No t Available benzonatat e 200 mg capsule TAKE ONE CAPSULE BY MOUTH THREE TIMES DAILY NEEDED FOR cough 05/10 completed Not Available Not Available Not Available ondansetro n HCl 4 mg tablet TAKE ONE TABLET every SIX hours NEEDED 12/23 completed Not Available Not Available Not Available prednisone 20 mg tablet Take 1 tablet 3 times a day by oral route for 3 days. 08/18 completed Not Available Not Available Not Available midodrine 5 mg tablet 12/28 completed Not Available Not Available Not Available potassium chloride ER 10 mEq tablet,ext ended release TAKE ONE TABLET BY MOUTH TWICE DAILY active Not Available Not Available No t Available oxcarbazep ine 300 mg tablet Take 2 tablet(s ) by mouth bid 05/10 completed Not Available Not Available Not Available divalproex 500 mg tablet,del ayed release TAKE ONE TABLET BY MOUTH TWICE DAILY DIRECTED 05/10 completed Not Available Not Available Not Available omeprazole 40 mg capsule,de layed release TAKE 1 CAPSULE BY MOUTH EVERY MORNING active Not [...] ondansetro n 8 mg disintegra ting tablet DISSOLVE ONE TABLET UNDER THE TONGUE every EIGHT hours NEEDED, FOR NAUSEA active Not Available Not Available No t Available potassium chloride 20 mEq/15 mL oral liquid Take 7.5 mL every day by oral route. 09/26 completed Not Available Not Available Not Available levothyrox ine 75 mcg tablet Take 1 tablet every day by oral route for 30 days. 11/26 completed Not Available Not Available Not Available bisoprolol fumarate 5 mg tablet TAKE 1 TABLET BY MOUTH DAILY active Not Available Not Available No t Available levothyrox ine 88 mcg tablet TAKE [...] Not Available Not Available No t Available metoclopra mide 5 mg tablet TAKE ONE TABLET BY MOUTH BEFORE each MEAL active Not Available Not Available No t [...] TAKE ONE TABLET BY MOUTH AT BEDTIME 08/02 completed Not Available Not Available Not Available ropinirole 0.5 mg tablet TAKE ONE [...] Available Not Available Not Available mirtazapin e 45 mg tablet TAKE 1 TABLET BY MOUTH EVERY DAY active Not Available Not Available No t Available hydroxyzin e HCl 25 mg tablet [...] powder apply SMALL AMOUNT TWICE DAILY NEEDED 08/02 completed Not Available Not Available Not Available levofloxac in 750 mg tablet Take [...] Available Not Available No t Available Tylenol Extra Strength 500 mg tablet Take 1-2 tablets every 6 hours as needed for pain or fever 2024 active Not Available Not Available Not Avai lable Ventolin HFA 90 mcg/actuat ion aerosol inhaler INHALE TWO puffs BY MOUTH EVERY 4 HOURS NEEDED for shortnes s of air,whee zing active Not Available Not Available No t Available cholecalci ferol (vitamin D3) 25 mcg (1,000 unit) capsule Take 1 capsule every day by oral route. 2024 active Not Available Not Available Not Avai lable ketorolac 0.4 % eye drops 12/07 completed Not Available Not Available Not Available lactulose 10 gram/15 mL oral solution take 15 ML BY MOUTH THREE TIMES A DAY NEEDED FOR CONSTIPA TION titrate TO maintain 3-5 bowel movement s PER DAY] active Not Available Not Available No t Available [facility]SC Levothyrox ine Sodium Once daily 11/25 completed Not Available Not Available Not Available levetirace hdez 1,000 mg tablet TAKE 1 TABLET BY MOUTH TWICE DAILY active Not Available Not Available No t Available Chest Congestion Relief DM 20 mg-400 mg tablet TAKE ONE TABLET BY MOUTH EVERY 6 HOURS NEEDED FOR COUGH 05/10 completed Not Available Not Available Not Available fenofibrat e nanocrysta llized 145 mg tablet TAKE ONE TABLET BY MOUTH AT BEDTIME active Not Available Not Available No t Available cholecalci ferol (vitamin D3) 25 mcg (1,000 unit) tablet TAKE 1 TABLET BY MOUTH EVERY DAY active Not Available Not Available No t Available calcium 600 mg (as carbonate) -vitamin D3 10 mcg (400 unit) tablet TAKE ONE TABLET BY MOUTH ONCE DAILY active Not Available Not Available No t Available budesonide -formotero l HFA 160 mcg-4.5 mcg/actuat ion aerosol inhaler INHALE TWO puffs BY MOUTH TWICE DAILY active Not Available Not Available No t Available melatonin 5 mg tablet TAKE TWO TABLETS AT BEDTIME 11/12 completed Not Available Not Available Not Available Mucus Relief ER 600 mg tablet, extended release TAKE 1 TABLET BY MOUTH EVERY TWELVE HOURS NEEDED FOR COUGH 08/30 completed Not Available Not Available Not Available [...] TAKE ONE TABLET BY MOUTH EVERY DAY 08/03 completed Not Available Not Available Not Available Vitals Date Recorded Body height Body mass index (BMI) Body weight Heart rate Oxygen saturation Body temperature Systolic And Diastolic Provider Name and Address Organization Details Last Updated DateTime 152.4 cm 32 kg/m2 52920.1 5 g 67 /min 95 % 98.2 [degF] 131/76 mm[Hg] [employer] [employer] 10:52:08 Social History Question Answer Notes LastModified by Organizat ion Details LastModified Time Tobacco Smoking Status Former Smoker [facility]BERTO [employer] [employer] 08/19/2023 14:46:52 Do You Have An Advance Directive? No [email or web address] Information n ot available 08/19/2023 Is Your Home Air Conditioned? Yes [email or web address] Information not available 08/19/2023 Are You Blind Or Do You Have Difficulty Seeing? Yes [email or web address] Information not available 12/23/2023 Are You A Caregiver? No [email or web address] Information not available 06/23/2024 In The 14 Days Before Symptom Onset, Have You Had Close Contact With A Laboratory-confirme d COVID-19 While That Case Was Ill? No Information n ot available 05/26/2024 In The 14 Days Before Symptom Onset, Have You Had Close Contact With A Person Who Is Under Investigation For COVID-19 While That Person Was Ill? No Information not available 05/26/2024 Have You Been To An Area Known To Be High Risk For COVID-19? No [email or web address] Information not available 08/19/2023 Are You Deaf Or Do You Have Serious Difficulty Hearing? Yes Information not available 12/23/2023 What Type Of Diet Are You Following? REGULAR [email or web address] Information n ot available 08/19/2023 Have Your Transportation Difficulties Led To Difficulty In Accessing Medical Care? Yes [email or web address] Information not available 08/02/2025 What Is The Highest Grade Or Level Of School You Have Completed Or The Highest Degree You Have Received? BG70008-3 [email or web address] Information not available 08/02/2025 How Many Days Of Moderate To Strenuous Exercise, Like A Brisk Walk, Did You Do In The Last 7 Days? 5 [email or web address] Information not available 08/02/2025 Have There Been Any Changes To Your Family Or Social Situation? No [email or web address] Information not available 08/19/2023 When Did You Quit Smoking? 16+yearssinc elastcigaret te [email or web address] Information not available 08/19/2023 Which Of Your Hands Is Dominant? Right [email or web address] Information not available 08/02/2025 Do You Engage In Moderate/heavy Exercise (e.g. Brisk Walk, Jogging, Strength Training, Etc)? Yes [email or web address] Information not available 08/02/2025 Do You Have A Medical Power Of Manager Play? No [email or web address] Information not available 08/19/2023 What Was The Date Of Your Most Recent Tobacco Screening? 09/27/2025 [email or web address] Information n ot available 09/27/2025 What Is Your Current Pack Years? 10-19packyea rs [email or web address] Information not available 08/19/2023 Do You Have Any Pets? Yes [email or web address] Information not available 08/19/2023 What Is Your Relationship Status? [email or web address] Information not available 08/19/2023 Do You Wear A Seatbelt When Driving Or As A Passenger? Yes Information not available 08/02/2025 Do You Use Your Seat Belt Or Car Seat Routinely? Yes [email or web address] Information not available 08/19/2023 Are You Sexually Active? Yes [email or web address] Information not available 08/02/2025 Do You Have Smoke And Carbon Monoxide Detectors In Your Home? Yes [email or web address] Information not available 08/19/2023 At What Age Did You Start Smoking Tobacco? 11 [email or web address] Information not available 08/02/2025 Are You Passively Exposed To Smoke? Yes [email or web address] Information no t available 08/19/2023 Are There Any Smokers In Your House? Yes [email or web address] Information not available 08/19/2023 How Much Tobacco Do You Smoke? No [email or web address] Information not available 08/02/2025 Do You Participate In Social Media? No [email or web address] Information not available 06/23/2024 Has Tobacco Cessation Counseling Been Provided? No [email or web address] Information not available 08/19/2023 How Many Years Have You Smoked Tobacco? 40 [email or web address] Information not available 08/02/2025 Have You Recently Traveled Abroad? No [email or web address] Information not available 08/19/2023 Do You Have Difficulty Walking Or Climbing Stairs? Yes [email or web address] Information not available 08/19/2023 Are You Currently In School? No [email or web address] Information not available 08/19/2023 Do You Feel Safe In Your Home? Yes [email or web address] Information not available 08/02/2025 Do You Have Any Dietary Restrictions? No [email or web address] Information not available 06/23/2024 Sex: Unknown Functional Status Question Answer Note LastModified by Organizat ion Details LastModified Time Do you use any illicit or recreational drugs? No [email or web address] Information not available 08/19/2023 Do you or have you ever used any other forms of tobacco or nicotine? No [email or web address] Information not available 08/19/2023 What is your level of alcohol consumption? None [email or web address] Information not available 08/19/2023 Are you currently employed? No [email or web address] Information not available 08/19/2023 Do you have transportation difficulties? Yes unable to drive herself cgrywxcuv269 Information not available 08/19/2023 Are you able to walk independently without assistance or assistive devices? YESWOREST iinglqtym269 Information not available 08/19/2023 Do you have difficulty doing errands alone? Yes [email or web address] Information not available 12/23/2023 Are you able to care for yourself independently? Yes nivrqsirt937 Information not available 08/19/2023 Do you have difficulty dressing, bathing, grooming, or toileting? Yes [email or web address] Information not available 12/23/2023 Mental Status Question Answer Note LastModified by Organizat ion Details LastModified Time Do you feel stressed (tense, restless, nervous, or anxious, or unable to sleep at night)? GN89952-4 [email or web address] Information not available 08/02/2025 Do you have difficulty concentrating, remembering or making decisions? Yes [email or web address] Information no t available 12/23/2023 Family History Relationship Description Onset Age of this Age Resolved Age Notes LastModified by Organization Details LastModified Time Mother Family history of Hypertension [email or web address] Not available 08/19/2023 14:44:48 Mother Family history of congestive heart failure [email or web address] Not available 14:44:53 Mother Family history of Myocardial infarction [email or web address] Not available 14:44:57 Mother Diabetes mellitus [email or web address] Not available 14:45:07 Mother Parkinson's disease Not available 14:45:25 Medical History Condition Response ADD/ADHD N High Cholesterol Y Hospitalizations N Acid Reflux (GERD) N Emergency room visit since last appointm ent. N Abuse/Domestic Violence N Hypertension Y Hypothyroidism Y Acne N Gynecological History Statement/Question Response Date of Last Pap Smear Most Recent Mammogram 11/02/2022 Obstetrics History GPAL:G 0 P 0 0 0 0 Immunizations Vaccine Type Date Status Note Provider Nam e and Address Organization Details Recorded Time Influenza, high-dose, trivalent, PF 4 completed Marly Kumar APRN [address] [place] [address], [phone], [employer] 09/09/2024 11:00:39 RSV, recombinant, protein subunit RSVpreF, adjuvant reconstituted, 0.5 mL, PF 4 completed Marly Kumar APRN [address] [place] [address], [phone], [employer] 09/09/2024 11:00:39 zoster recombinant 4 completed Marly Kumar APRN [address] [place], [address], [employer] 09/26/2024 17:21:28 zoster recombinant 5 chandrika Kumar APRN [address] [place], [address], [employer] 12/28/2024 12:12:07 Tdap 5 completed Cdoie mayorga, [employer] 05/10/2025 10:57:25 Influenza, high-dose, trivalent, PF 5 completed Codie Shah null, [employer] 08/02/2025 14:54:57 COVID-19, mRNA, LNP-S, PF, kaz-sucrose, 30 mcg/0.3 mL 5 completed Codie Shah null, [employer] 08/02/2025 14:54:58 COVID-19, mRNA, LNP-S, PF, 100 mcg/0.5mL dose or 50 mcg/0.25mL dose 1 completed ALBERTO ROCK null, [employer] 08/19/2023 14:43:02 COVID-19, mRNA, LNP-S, PF, 30 mcg/0.3 mL dose 1 completed ALBERTO ROCK null, [employer] 08/19/2023 14:43:02 COVID-19, mRNA, LNP-S, PF, 30 mcg/0.3 mL dose 1 completed ALBERTO ROCK null, [employer] 08/19/2023 14:43:02 Influenza, split virus, trivalent, preservative 7 completed ALBERTO ROCK null, [employer] 08/19/2023 14:43:02 Influenza, split virus, trivalent, preservative 2 completed ALBERTO ROCK null, [employer] 08/19/2023 14:43:02 Influenza, split virus, trivalent, preservative 0 completed ALBERTO ROCK null, [employer] 08/19/2023 14:43:02 Influenza, split virus, trivalent, PF 4 completed ALBERTO ROCK null, [employer] 08/19/2023 14:43:02 Influenza, split virus, quadrivalent, PF 2 completed ALBERTO ROCK null, [employer] 08/19/2023 14:43:02 Pneumococcal conjugate PCV20, polysaccharide BAH734 conjugate, adjuvant, PF 4 [facility]/26/20[facility] 11:20:59 Past Encounters Encounter ID Performer Location Encounter Start Date Encounter Closed Date Diagnosis/Indication Diagnosis SNOMED-CT Code Diagnosis ICD10 Code Diagnosis IMO Codes Diagnosis Note [id number] [place] [address] 08/30/2025 11:30:28 08/30/2025 12:31:22 Post-discharge follow-up 302299497 Z09 793378 Essential hypertension 74964740 I10 Mixed hyperlipidemia 267 901675 E78.2 Anxiety 27406750 F41.9 95465 [id number] [place] [phone] 09/27/2025 10:40:09 09/27/2025 11:40:58 Mixed hyperlipidemia 314999751 E78.2 Hypothyroidism 97176652 E03.9 Anxiety disorder 8510723 06 F41.9 Essential hypertension 83237614 I10 Hypomagnesemia 494640825 E83.42 9931 Postmenopausal state 764 25188 Z78.0 386688 Osteoporosis 05670602 M8 1.0 Health Concerns Section Related Observation LastModified by Organization Detai ls LastModified Time None Recorded Concern Status LastModified by Organization Details LastModified Time None Recorded Payers Encounter Date Sequence Insurance Name Policy Number Policy Cordero Covered Member ID Cordero Member ID Guarantor Name 09/27/2025 1 [place] Eloy Perkins [id number] Eloy Perkins 09/27/2025 2 [facility]ADITI ONMS [place] Perkins [id number] Eloy Perkins Notes Date Note Type Note Provider Name and Address Organization Details Recorded Time 09/27/2025 text/html Patient presents for follow up. She has been back to the hospital.She had heart cath 09/21/2025. Radial on right side. Significant bruising on bilateral arms. She was told she had a 50 percent blockage. She will see Dr. Christiansen's office on 10/23/2025. No intervention at time of heart cath. She will talk to Dr. Christiansen at that visit and then decide how to proceed.Her mood has been better since we increased mirtazapine.She does have her medications prefilled by her healthcare worker (medicaid waiver). She sometimes has help getting into the shower. Ayanna Rivers (assigned worker).Daughter asked me to call her after the appt today, but patient states she does not want me to do so. Marly Kumar APRN [address] [place] [address], [phone], [facility] [employer] 10/04/2025 15:20:23 OBGyn Episode No OBEpisode recorded.
--- OUTSIDE RECORDS SUMMARY | 2025-10-28 10:32 | XMS_ITS | Encounter Summary ---
Author Organization [employer] ([place], [place], [place], [place], [place]) Address [address] [place] [address] Care Team Providers Care Coal Passer Name Role Phone Marly Kumar HISTORY INSTRUCTOR Primary Care Provider [phone] Encounter Details Date Type Department Care Team (Late st Contact Info) Description 07/27/2020 Transcribed Document [facility] Family [facility] [place] [address] ProviderMiya MD [address] [place] [address] Social History Tobacco Use Types Packs/Day [...] EEG-video monitoring was performed using the 32-channel [employer] monitoring system. The seizure detection computer was [...] noted suggestive of mild diffuse cerebral dysfunction. /[id number] MD RAPHAEL Esquivel/JOHNNIE / RAPHAEL / MODL /[id number] Electronically signed by Celestine [facility] [employer] Finished Garment Inspector [employer]ner at 02/19/2023 6:28 PM CDT documented in this encounter Plan of Treatment Not on file documented as of this encounter Visit Diagnoses Not on filedocumented in this encounter Care Teams Coal Passer Relationship Specialty Start Date End Date Marly Kumar, DUNG [address] [place] [phone] PCP - General Nurse Practitioner 09/22/24 documented as of this encounter
--- OUTSIDE RECORDS SUMMARY | 2025-10-28 10:32 | XMS_ITS | Encounter Summary ---
Author Organization [employer] ([place], [place], [place], [place], [place]) Address [address] [place] [address] Care Team Providers Care Junior Architect Name Role Phone Marly Kumar MAKING DEPARTMENT PREPARER Primary Care Provider [phone] Encounter Details Date Type Department Care Team [...] No / Unsure 10/11/2025 9:26 AM [place] Do you have any of the following new or worsening symptoms? None of these 10/11/2025 9:26 AM [place] documented as of this encounter Plan of Treatment Not on file documented as of this encounter Visit Diagnoses Not on filedocumented in this encounter Care Teams Junior Architect Relationship Specialty Start Date End Date Marly Kumar NP [address] [place] [address] PCP - General Nurse Practitioner 09/22/24 documented as of this encounter
--- OUTSIDE RECORDS SUMMARY | 2025-10-28 10:32 | XMS_ITS | Encounter Summary ---
Author Organization [employer] ([place], [place], [place], [place], [place]) Address [address] [place] [address] Care Team Providers Care Shoulder Joiner Name Role Phone Marly Kumar EMERGENCY VETERINARY TECHNICIAN Primary Care Provider [phone] Encounter Details Date Type Department Care Team (Late st Contact Info) Description 07/27/2020 Transcribed Document [facility] [place] [facility] [address] ProviderMiya MD [address] [place] [address] Social History Tobacco Use Types Packs/Day [...] Insurance 1 Health Plan: MEDICARE Policy Number: [id number] Authorization Number: Insurance 2 Health Plan: MEDICAID OF [place] Policy Number: [id number] Authorization Number: Insurance Primary Name : MEDICARE Policy Number: [id number] Authorized Service Begin Date-Primary : 07/26/2020 EDT Historical Authorization Comments-Primary : No Authorization Comments Found DRISS DEL REAL RN - 07/27/2020 12:35 EDT Electronically signed by Celestine [facility] Conversion Patternmaker Hand Cerner at 02/19/2023 6:32 PM CDT documented in this encounter Plan of Treatment Not on file documented as of this encounter Visit Diagnoses Not on filedocumented in this encounter Care Teams Shoulder Joiner Relationship Specialty Start Date End Date Marly Kumar, DUNG [address] [place] [address] PCP - General Nurse Practitioner 09/22/24 documented as of this encounter
--- OUTSIDE RECORDS SUMMARY | 2025-10-28 10:32 | XMS_ITS | Data Portability ---
Author Organization P[facility]il[facility] Address [address] [place] [address] Care Team Providers Care Senior Administrative Support Name Role Phone KIMBERLY SUMMERS Community Health Worker [phone] Assessment Encounter Date Assessment Date Assessment LastModified by Organization Details LastModified Time 06/14/2025 06/14/[address] Garay' office to verify where they sent patient for upper extremity EMG. WE will try to get scheduled the same day. Keep planned specialist appts. Follow up in 2 months to recheck, sooner if needed Not available 06/16/2025 21:30:10 08/02/2025 08/02/2025 Increase mirtazapine to 45 mg daily. Continue care with specialists. Notified CHW of living situation and she is going to try to help patient. Updated flu/COVID immunizations today after patient was counseled. Follow up in 3 weeks as planned, sooner if needed. Not available 08/03/2025 16:00:14 08/30/2025 08/30/2025 Continue with plan to see cardiology and discuss plavix further at that visit. Continue current regimen. Offered referral to for evaluation of anxiety. Encouraged patient to consider half-way facility referral for physical / occupational therapy after recent hospitalization, but she declines. Follow up in 1 month for recheck, sooner if needed. Not available 08/30/2025 13:02:10 09/27/2025 09/27/2025 She wants to update her [...] available Not available Not available FOLLOW UP 30 2025 02:00P M José, Marly Not available Not available Not available Lab vitami n D, 25-hyd jeni, total, serum 2024 025 ERICH [facility] ([place]), [address] [place], [address], 10/05/2025 08:14:07 lipid panel, serum 2024 025 [facility]), [address] [place], [address], 10/05/2025 08:14:07 CMP, serum or plasma 2024 025 [facility]), [address] [place], [address], 10/05/2025 08:14:06 magnes ium, serum or plasma 2024 025 [place] [facility] ([place]), [address] [place], [address], 10/05/2025 08:14:08 CBC w/ auto diff 2024 025 [place] ([place]), [address] [place], [address], 10/05/2025 08:14:05 TSH + free T4, serum 2024 025 ERICH [facility] ([place]), [address] [place], [address], 10/05/2025 08:14:05 rapid influe nza virus A + B and SARS CoV + SARS CoV 2 Ag panel, IA, upper respir atory specim en 2024 [email or web address] [facility], [address] [place] [address], [phone], 08/08/2025 12:37:11 Referral None record ed. Procedures nerve conduc tion study/ EMG, lower extrem ity (PROC) 2024 [email or web address] Nolan Cooney DO, [address], Entrance D, [place], [address], 08/18/2025 10:38:20 Surgeries None record ed. Imaging XR, chest, 2 view 2024 [email or web address] [facility], [address] [place] [address], [phone], 08/10/2025 10:51:08 Medication Orders doxycy wong hyclat e 100 mg capsul e 2024 [facility], [address] [place] [address], [address], 08/25/2025 05:01:24 predni sone 20 mg tablet 2024 [facility], [address] [place] [address], [address], 08/18/2025 05:01:56 guaife nesin ER 600 mg tablet , extend ed releas e 12 hr 2024 [facility], [address] [place] [address], [address], 08/30/2025 13:29:42 mirtaz apine 45 mg tablet 2024 [facility], [address] [place] [address], [address], 08/04/2025 14:51:54 Patient TargetsNo targets recorded. Patient InstructionsNo instructions recorded. Reason for Referral None Reported. Results Created Date Observation Date Name Description Value Unit Range Abnormal Flag Note LastModifiedBy Organization Detail LastModifiedTime 08/08/2008/08/2025 rapid influ alexandria virus A + B and SARS CoV + SARS CoV 2 Ag panel , [place], upper respi rator y speci men SARS-CoV2 negati ve Not Available [address], [address], 08/08/2025 09:12:04 08/08/2008/08/2025 rapid influ alexandria virus A + B and SARS CoV + SARS CoV 2 Ag panel , [place], upper respi rator y speci men Flu A negati ve Not Available [address], [address], 08/08/2025 09:12:04 08/08/20 25 08/08/2025 rapid influ alexandria virus A + B and SARS CoV + SARS CoV 2 Ag panel , [place], upper respi rator y speci men Flu B negati ve Not Available [address], [address], 08/08/2025 09:12:04 10/04/20 25 10/05/2025 TSH+F REE T4 TSH 3.410 uIU/m L 0.450- 4.500 normal Not Available [facility] ([facility]) [address] [facility], [place], [address], 10/05/2025 08:14:05 10/04/20 25 10/05/2025 TSH+F REE T4 T4,free(dire ct) 1.31 NG/dL 0.82-1 .77 normal Not Available [facility] ([facility]) [address] [facility], [place], [address], 10/05/2025 08:14:05 10/04/20 25 10/05/2025 CBC WITH DIFFE RENTI AL/PL ATELE T WBC 5.0 x10e3 /uL 3.4-10 .8 normal Not Available [facility] ([facility]) [address] [facility], [place], [address], 10/05/2025 08:14:05 10/04/20 25 10/05/2025 CBC WITH DIFFE RENTI AL/PL ATELE T RBC 4.21 x10e6 /uL 3.77-5 .28 normal Not Available [facility] ([facility]) [address] [place], [address], 10/05/2025 08:14:05 10/04/2010/05/2025 CBC WITH DIFFE RENTI AL/PL ATELE T hemoglobin 12.7 g/dL 11.1-1 5.9 normal Not Available [facility] ([facility]) [address] [place], [address], 10/05/2025 08:14:05 10/04/20 25 10/05/2025 CBC WITH DIFFE RENTI AL/PL ATELE T hematocrit 39.0 % 34.0-4 6.6 normal Not Available [facility] ([facility]) [address] [place], [address], 10/05/2025 08:14:05 10/04/2010/05/2025 CBC WITH DIFFE RENTI AL/PL ATELE T MCV 93 fL 79-97 normal Not Available [facility] ([facility]) [address] [place], [address], 10/05/2025 08:14:05 10/04/20 25 10/05/2025 CBC WITH DIFFE RENTI AL/PL ATELE T MCH 30.2 pg 26.6-3 3.0 normal Not Available [facility] ([facility]) [address] [place], [address], 10/05/2025 08:14:05 10/04/20 25 10/05/2025 CBC WITH DIFFE RENTI AL/PL ATELE T MCHC 32.6 g/dL 31.5-3 5.7 normal Not Available [facility] ([facility]) [address] [place], [address], 10/05/2025 08:14:05 10/04/20 25 10/05/2025 CBC WITH DIFFE RENTI AL/PL ATELE T RDW 14.0 % 11.7-1 5.4 Not Available [facility] ([facility]) [address] [facility], [place], [address], 10/05/2025 08:14:05 10/04/20 25 10/05/2025 CBC WITH DIFFE RENTI AL/PL ATELE T platelets 302 x10e3 /uL 150-45 0 normal Not Available [facility] ([facility]) [address] [facility], [place], [address], 10/05/2025 08:14:05 10/04/20 25 10/05/2025 CBC WITH DIFFE RENTI AL/PL ATELE T neutrophils 42 % not estab. normal Not Available [facility] ([facility]) [address] [facility], [place], [address], 10/05/2025 08:14:05 10/04/20 25 10/05/2025 CBC WITH DIFFE RENTI AL/PL ATELE T lymphs 45 % not estab. normal Not Available [facility] ([facility]) [address] [place], [address], 10/05/2025 08:14:05 10/04/20 25 10/05/2025 CBC WITH DIFFE RENTI AL/PL ATELE T monocytes 8 % not estab. normal Not Available [facility] ([facility]) [address] [facility], [place], [address], 10/05/2025 08:14:05 10/04/20 25 10/05/2025 CBC WITH DIFFE RENTI AL/PL ATELE T eos 4 % not estab. normal Not Available [facility] ([facility]) [address] [place], [address], 10/05/2025 08:14:05 10/04/20 25 10/05/2025 CBC WITH DIFFE RENTI AL/PL ATELE T basos 1 % not estab. 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 0 normal Not Available [facility] ([facility]) [address] [place], [address], 10/05/2025 08:14:05 10/04/20 25 10/05/2025 CBC WITH DIFFE RENTI AL/PL ATELE T lymphs (absolute) 2.3 x10e3 /uL 0.7-3. 1 normal Not Available [facility] ([facility]) [address] [place], [address], 10/05/2025 08:14:05 10/04/20 25 10/05/2025 CBC WITH DIFFE RENTI AL/PL ATELE T monocytes(ab solute) 0.4 x10e3 /uL 0.1-0. 9 normal Not Available [facility] ([facility]) [address] [place], [address], 10/05/2025 08:14:05 10/04/20 25 10/05/2025 CBC WITH DIFFE RENTI AL/PL ATELE T eos (absolute) 0.2 x10e3 /uL 0.0-0. 4 normal Not Available [facility] ([facility]) [address] [facility], [place], [address], 10/05/2025 08:14:05 10/04/20 25 10/05/2025 CBC WITH DIFFE RENTI AL/PL ATELE T baso (absolute) 0.0 x10e3 /uL 0.0-0. 2 normal Not Available [facility] ([facility]) [address] [facility], [place], [address], 10/05/2025 08:14:05 10/04/20 25 10/05/2025 CBC WITH DIFFE RENTI AL/PL ATELE T immature granulocytes 0 % not estab. Not Available [facility] ([facility]) [address] [facility], [place], [address], 10/05/2025 08:14:05 10/04/20 25 10/05/2025 CBC WITH DIFFE RENTI AL/PL ATELE T immature grans (abs) 0.0 x10e3 /uL 0.0-0. 1 Not Available [facility] ([facility]) [address] [place], [address], 10/05/2025 08:14:05 10/04/20 25 10/05/2025 CBC WITH DIFFE RENTI AL/PL ATELE T NRBC W[employer] WE[employer] WORKER Not Available [facility] ([facility]) [address] [place], [address], 10/05/2025 08:14:05 10/04/20 25 10/05/2025 CBC WITH DIFFE RENTI AL/PL ATELE T hematology comments: W[employer] WE[employer] WORKER Not Available [facility] ([facility]) [address] [place], [address], 10/05/2025 08:14:05 10/04/20 25 10/05/2025 COMP. METAB OLIC PANEL (14) glucose 96 mg/dL 70-99 normal Not Available [facility] ([facility]) [address] [place], [address], 10/05/2025 08:14:06 10/04/20 25 10/05/2025 COMP. METAB OLIC PANEL (14) BUN 24 mg/dL 8-27 normal Not Available [facility] ([facility]) [address] [place], [address], 10/05/2025 08:14:06 10/04/20 25 10/05/2025 COMP. METAB OLIC PANEL (14) creatinine 0.95 mg/dL 0.57-1 .00 normal Not Available [facility] ([facility]) [address] [place], [address], 10/05/2025 08:14:06 10/04/20 25 10/05/2025 COMP. METAB OLIC PANEL (14) eGFR 64 mL/mi n/1.7 3 >59 normal Not Available [facility] ([facility]) [address] [place], [address], 10/05/2025 08:14:06 10/04/20 25 10/05/2025 COMP. METAB OLIC PANEL (14) BUN/creatini ne ratio 25 12-28 normal Not Available [facility] ([facility]) [address] [place], [address], 10/05/2025 08:14:06 10/04/20 25 10/05/2025 COMP. METAB OLIC PANEL (14) sodium 145 mmol/ L 134-14 4 above high normal Not Available [facility] ([facility]) [address] [place], [address], 10/05/2025 08:14:06 10/04/20 25 10/05/2025 COMP. METAB OLIC PANEL (14) potassium 4.1 mmol/ L 3.5-5. 2 normal Not Available [facility] ([facility]) [address] [place], [address], 10/05/2025 08:14:06 10/04/20 25 10/05/2025 COMP. METAB OLIC PANEL (14) chloride 106 mmol/ L 96-106 normal Not Available [facility] ([facility]) [address] [place], [address], 10/05/2025 08:14:06 10/04/20 25 10/05/2025 COMP. METAB OLIC PANEL (14) carbon dioxide, total 23 mmol/ L 20-29 normal Not Available [facility] ([facility]) [address] [place], [address], 10/05/2025 08:14:06 10/04/20 25 10/05/2025 COMP. METAB OLIC PANEL (14) calcium 10.1 mg/dL 8.7-10 .3 normal Not Available [facility] ([facility]) [address] [place], [address], 10/05/2025 08:14:06 10/04/20 25 10/05/2025 COMP. METAB OLIC PANEL (14) protein, total 7.0 g/dL 6.0-8. 5 normal Not Available [facility] ([facility]) [address] [place], [address], 10/05/2025 08:14:06 10/04/20 25 10/05/2025 COMP. METAB OLIC PANEL (14) albumin 4.2 g/dL 3.8-4. 8 normal Not Available [facility] ([facility]) [address] [place], [address], 10/05/2025 08:14:06 10/04/20 25 10/05/2025 COMP. METAB OLIC PANEL (14) globulin, total 2.8 g/dL 1.5-4. 5 Not Available [facility] ([facility]) [address] [place], [address], 10/05/2025 08:14:06 10/04/20 25 10/05/2025 COMP. METAB OLIC PANEL (14) bilirubin, total 0.3 mg/dL 0.0-1. 2 normal Not Available [facility] ([facility]) [address] [place], [address], 10/05/2025 08:14:06 10/04/20 25 10/05/2025 COMP. METAB OLIC PANEL (14) alkaline phosphatase 66 IU/L 49-135 normal Not Available [facility] ([facility]) [address] [place], [address], 10/05/2025 08:14:06 10/04/20 25 10/05/2025 COMP. METAB OLIC PANEL (14) AST (SGOT) 26 IU/L 0-40 normal Not Available [facility] ([facility]) [address] [place], [address], 10/05/2025 08:14:06 10/04/20 25 10/05/2025 COMP. METAB OLIC PANEL (14) ALT (SGPT) 16 IU/L 0-32 normal Not Available [facility] ([facility]) [address] [place], [address], 10/05/2025 08:14:06 10/04/20 25 10/05/2025 LIPID PANEL cholesterol, total 111 mg/dL 100-19 9 normal Not Available [facility] ([facility]) [address] [place], [address], 10/05/2025 08:14:06 10/04/20 25 10/05/2025 LIPID PANEL triglyceride s 96 mg/dL 0-149 normal Not Available [facility] ([facility]) [address] [place], [address], 10/05/2025 08:14:06 10/04/20 25 10/05/2025 LIPID PANEL HDL cholesterol 43 mg/dL >39 normal Not Available [facility] ([facility]) [address] [facility], [place], [address], 10/05/2025 08:14:06 10/04/20 25 10/05/2025 LIPID PANEL VLDL cholesterol kayla 18 mg/dL 5-40 Not Available [facility] ([facility]) [address] [facility], [place], [address], 10/05/2025 08:14:06 10/04/20 25 10/05/2025 LIPID PANEL LDL chol calc (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 IOM (Inst itute of Medic ine). 2009. Dieta ry refer ence kya es for calci um and D. Dean graff [place]: The Natio nal [facility] Press . 2. Rosa sheppard MF, Talia ey [place], Denisha off-F errar i BURTON, et al. Evalu ation , treat ment, and preve ntion of vitam in D defic iency : an Endoc rine Socie ty clini kayla pract ice guide line. JCEM. 2010; 96(7) :1911 -30. Not Available [facility] ([facility]) [address] [facility], [place], [address], 10/05/2025 08:14:07 10/04/20 25 10/05/2025 MAGNE SIUM magnesium 1.7 mg/dL 1.6-2. 3 normal Not Available [facility] ([facility]) [address] [facility], [place], [address], 10/05/2025 08:14:07 07/06/20 25 07/06/2025 XR, chest , 2 view No observ ation record ed. [address], [place], [place], [address], 07/06/2025 12:12:38 07/06/20 25 07/06/2025 elect rocar diogr am No observ ation record ed. [address], [place], [place], [address], 07/07/2025 10:42:54 07/06/20 25 07/06/2025 elect rocar diogr am No observ ation record ed. [address], [place], [place], [address], 07/06/2025 15:57:13 08/08/20 XR, chest , 2 view No observ ation record ed. [email or web address] [address], [place], [address], 08/08/2025 16:34:02 08/23/20 25 08/23/2025 CT, head + brain , w/o contr ast No observ ation record ed. [email or web address] [facility] [address], [place], [place], [address], 08/25/2025 09:30:42 08/23/20 25 08/23/2025 CT, angio gram, neck, w/wo contr ast No observ ation record ed. [address], [place], [address], 08/25/2025 09:30:26 08/23/20 25 08/23/2025 CT, angio gram, head, w/wo contr ast No observ ation record ed. [address], [place], [place], [address], 08/25/2025 09:30:08 08/24/2008/23/2025 elect halima [place] am, routi ne ECG, 12 leads min No observ ation record ed. [address], [place], [place], [address], 08/25/2025 09:27:12 08/24/2008/24/2025 US, doppl er echoc ardio gram No observ ation record ed. [address], [place], [place], [address], 08/25/2025 09:24:11 10/18/20 25 10/17/2025 MAMMO , diagn ostic , digit al, unila teral No observ ation record ed. [address] Centralized Scheduling [address] [place], [address], 10/19/2025 14:44:04 10/19/20 25 10/17/2025 MAMMO , diagn ostic , digit al, unila teral No observ ation record ed. [address] Centralized Scheduling [address] [place], [address], 10/19/2025 14:44:04 10/24/20 25 10/24/2025 imagi ng/di agnos tic resul t No observ ation record ed. [address], [place], [address], 10/25/2025 09:49:25 10/24/2010/24/2025 [facility]el [facility] tic resul t No observ ation record ed. [facility] [address], [place], [address], 10/25/2025 09:49:25 Result Notes None recorded. Problems Name Problem SNOMED Code Status Onset Date Resolution Date Notes Provider Name and Address Organization Details Recorded Time Acute on chronic systolic heart failure 541274119 Completed 201611/25/2016 Not Available [facility] 21:36:04 Bronchop neumonia 295621140 Completed 201601/19/2017 Problem Code: J18.0; Problem Code Type: ICD-10; Not Available [facility] 21:36:04 Congesti ve heart failure 50742218 Completed 201611/25/2016 Problem Code: 428.0; Problem Code Type: ICD-9; Not Available [facility] 21:36:05 Pneumoco ccal pneumoni a 373930833 Completed 201601/19/2017 Problem Code: 481; Problem Code Type: ICD-9; Not Available [facility] 21:36:05 Bronchop neumonia 920394038 Completed 201601/24/2017 Problem Code: J18.0; Problem Code Type: ICD-10; Not Available [facility] 2 21:36:04 Pneumoco ccal pneumoni a 107850621 Completed 201601/24/2017 Problem Code: 481; Problem Code Type: ICD-9; Not Available [facility] 21:36:05 Pain of left wrist 28826577138 9102 Completed 201604/25/2017 Problem Code: M25.532; Problem Code Type: ICD-10; Not Available [facility] 21:36:04 Localize d edema 097775497 Completed 201604/25/2017 Problem Code: R60.0; Problem Code Type: ICD-10; Not Available [facility] 2 21:36:05 Pain of joint of wrist 182997682 Completed 201604/25/2017 Problem Code: 719.43; Problem Code Type: ICD-9; Not Available [facility] 2 21:36:05 Edema 406569905 Completed 201604/25/2017 Problem Code: 782.3; Problem Code Type: ICD-9; Not Available [facility] 2 21:36:05 Hyperten sive disorder 06416067 Completed 202209/27/2025 Marly Kumar APRN [address] [place] [address], [address] [place] [address] , [employer] 5 08:49:10 Hyperlip idemia 80332508 Completed 202203/29/2025 Marly Kumar APRN [address] [place] [address], [address] , [email or web address] 5 09:38:16 Chronic obstruct mark pulmonar y disease 89718899 Active 2022 FREDDY GARCIA [address], [address] [place] [address] , [employer] 3 14:59:59 Hypothyr oidism 85320842 Active 2022 FREDDY GARCIA [address], [address] [place] [address] , [employer] 3 15:01:45 Monitori ng of pacemake r 42257436 Active 2022 [facility] [address], [address] [place] [address] , [employer] 3 15:22:52 Seizure disorder 409686789 Active 2022 Marly Kumar APRN [address] [place] [address], [address] , [employer] 4 18:02:53 Memory impairme nt 843832776 Active 2022 Marly Kumar APRN [address] [place] [address], [address] , [employer] 4 18:02:44 Seasonal allergy 652291823 Active 2022 Marly Kumar APRN [address] [place] [address], [address] , [employer] 4 18:02:51 Nausea 917677201 Completed 202205/26/2024 Marly Kumar APRN [address] [place] [address], [address] , [employer] 5 08:49:37 Mixed hyperlip idemia 010798591 Active 2022 Marly Kumar APRN [address] [place] [address], [address] , [employer] 4 18:02:46 Anxiety disorder 305400414 Completed 202205/26/2024 Marly Kumar APRN [address] [place] [address], [address] , [employer] 4 12:06:47 Insomnia 653260157 Active 2022 Marly Kumar APRN [address] [place] [address], [address] , [employer] 4 18:02:40 Hypomagn esemia 568801340 Completed 202205/26/2024 Marly Kumar APRN [address] [place] [address], [address] , [employer] 5 08:53:13 Gastroes ophageal reflux disease without esophagi tis 649021196 Active 2022 Marly Kumar APRN [address] [place] [address], [address] , [employer] 4 18:02:34 Hypokale caitlyn 32349387 Completed 202205/26/2024 Marly Kumar APRN [address] [place] [address], [address] , [employer] 5 09:20:02 Candidia sis of skin 96889596 Completed 202205/26/2024 Marly Kumar APRN [address] [place] [address], [address] , [employer] 5 14:39:29 Wound of skin 867819984 Completed 202209/27/2025 Marly Kumar APRN [address] [place] [address], [address] , [employer] 5 08:49:19 Localize d swelling of head 13517586952 013515 Completed 202305/26/2024 Marly Kumar APRN [address] [place] [address], [address] , [employer] 4 18:02:42 Chronic low back pain 267498396 Active 2023 Marly Kumar APRN [address] [place] [address], [address] , [employer] 4 18:02:29 Abnormal gait due to muscle weakness 168695597 Completed 202305/26/2024 Marly Kumar APRN [address] [place] [address], [address] , [employer] 4 12:06:44 Diarrhea 60815504 Completed 202305/26/2024 Marly Kumar APRN [address] [place] [address], [address] , [employer] 4 18:02:32 Numbness of hand 315276831 Completed 202309/08/2024 Marly Kumar APRN [address] [place] [address], [address] , [employer] 4 09:59:28 Peripher al demyelin ating neuropat hy 85026196 Active 2023 Marly Kumar APRN [address] [place] [address], [address] , [employer] 4 09:59:26 Chronic back pain 579720483 Active 2023 Marly Kumar APRN [address] [place] [address], [address] , [employer] 5 09:19:42 Osteopor osis 31625396 Active 2023 Marly Kumar APRN [address] [place] [address], [address] , [employer] 5 09:19:56 Hypokale caitlyn 69942249 Completed 202312/07/2024 Marly Kumar APRN [address] [place] [address], [address] , [employer] 5 09:20:02 Urinary incontin ence 173759581 Active 2023 Marly Kumar APRN [address] [place] [address], [address] , [employer] 5 09:19:58 Essentia l hyperten patricia 80038783 Active 2024 Marly Kumar APRN [address] [place] [address], [address] , [employer] 5 09:19:43 Pain of left knee joint 69710353478 4107 Completed 202401/23/2025 Marly Kumar APRN [address] [place] [address], [address] , [employer] 5 11:21:21 Restless legs syndrome 76939770 Active 2024 Marly Kumar APRN [address] [place] [address], [address] , [employer] 5 11:21:23 Bilatera l lower limb edema 393172676 Completed 202401/23/2025 Marly Kumar APRN [address] [place] [address], [address] , [employer] 11:21:15 Pain of bilatera l hands 23167125823 992841 Completed 202401/23/2025 Marly Kumar APRN [address] [place] [address], [address] , [employer] 11:21:18 Candidia sis of skin 42768714 Completed 202402/17/2025 Marly Kumar APRN [address] [place] [address], [address] , [employer] 14:39:28 Cough 31664600 Completed 202409/27/2025 Marly Kumar APRN [address] [place] [address], [address] , [employer] 08:49:24 Macromas tia 168270530 Completed 202409/27/2025 Marly Kumar APRN [address] [place] [address], [address] , [employer] 08:49:22 Mammogra phy abnormal 807226786 Active 2024 Marly Kumar APRN [address] [place] [address], [address] , [employer] 09:14:58 Pneumoni a 439099056 Completed 202403/29/2025 Marly Kumar APRN [address] [place] [address], [address] , [employer] 5 09:02:21 Acute cough Completed 202405/10/2025 Marly Kumar APRN [address] [place] [address], [address] , [employer] 10:28:29 Acute exacerba tion of chronic obstruct mark pulmonar y disease 481114428 Completed 202405/10/2025 Marly Kumar APRN [address] [place] [address], [address] [place] [address] , [employer] 10:28:27 Nausea 159718053 Completed 202409/27/2025 Marly Kumar APRN [address] [place] [address], [address] [place] [address] , [employer] 08:49:37 Quantity of physiolo gic substanc e outside referenc e range 918139047 Completed 202408/30/2025 Marly Kumar APRN [address] [place] [address], [address] [place] [address] , [employer] 13:00:44 Hypomagn esemia 438914365 Active 2024 Marly Kumar APRN [address] [place] [address], [address] [place] [address] , [employer] 08:53:13 Fatigue 95067688 Completed 202408/30/2025 Marly Kumar APRN [address] [place] [address], [address] [place] [address] , [employer] 13:00:51 Cobalami n deficien cy 445658411 Active 2024 Marly Kumar APRN [address] [place] [address], [address] [place] [address] , [employer] 13:00:55 Pain 16093325 Completed 202409/27/2025 Marly Kumar APRN [address] [place] [address], [address] [place] [address] , [employer] 08:49:38 Pain in bilatera l feet 92930402937 873821 Active 2024 Marly Kumar APRN [address] [place] [address], [address] [place] [address] , [place] [employer] 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 13:00:45 Anxiety 73642115 Active 2024 Marly Kumar APRN [address] [place] [address], [address] , [employer] 08:49:30 Fever 015522227 Completed 202408/30/2025 Marly Kumar APRN [address] [place] [address], [address] , [employer] 13:00:50 Vitamin D deficien 37592903 Active 2024 Marly Kumar APRN [address] [place] [address], [address] , [employer] 10:35:10 Problem Notes None recorded. Procedures Surgical History Date Name Laterality Status Provider Name and Address Organization Details Recorded Time 11/02/19 23 Most Recent Mammogram completed Ruth Zhao [employer] 11/26/2023 13:21:36 10/29/20 16 cholecystectomy completed Not Available [facility] 07/08/2022 22:56:19 10/29/20 16 hernia repair completed Not Available [facility] 07/08/2022 22:56:20 10/29/20 16 hysterectomy completed Not Available [facility] 07/08/2022 22:56:21 lumpectomy of right breast completed [employer] 08/19/2023 14:52:33 Imaging Results None recorded. Procedure Notes None recorded. Medical Equipment None Reported. Allergies Allergen ID Allergen Name Allergen Category Reaction Reaction Severity Criticality Documentation Date Start Date Code Code System Note Provider Name and Address Organization Details Recorded Time 27295 Product containin g penicilli n (product) medicatio n Not available Not available Not available 07/08/2022 58287 8001 SNOMED ALBERTO mayorga, [employer] 3 14:43:11 55461 Substance with sulfonami de structure and antibacte rial mechanism of action (substanc e) medicatio n Not available Not available Not available 07/08/2022 31530 8003 SNOMED ALBERTO mayorga, [employer] 3 14:43:16 29011 Fosamax medicatio n Not available Not available Not available 07/08/2022 79466 5 RxNorm Not Available [facility] 2 22:55:02 89928 tamsulosi n medicatio n other Not available low 09/25/20252022 15974 RxNorm Sick to stoma ch Not Available [employer] - External Data Service - prod 12:37:33 37724 alendroni c acid Not available Not available Not available Not available 09/25/2025 42085 3 RxNorm unrec ogniz ed react ion (text : Adver se react ion to subst ance, code: 90403 0009) (from exter nal sourc e) Not Available [facility] - External Data [employer] - prod 5 12:37:42 18289 gabapenti n medicatio n Not available Not available Not available 09/25/20252020 70250 RxNorm unrec ogniz ed react ion (text : Irrit abili ty, code: 19125 6000) (from exter nal sourc e) Not Available [facility] - External Data Service - prod 5 12:37:54 52048 alendrona te sodium medicatio n Not available Not available low 09/25/20252016 57628 2 RxNorm Not Available erich [facility] External Data Service - prod 12:38:24 Medications Name Sig Start Date Stop [...] (BMI) Body weight Heart rate Oxygen saturation Systolic And Diastolic Provider Name and Address Organization Details Last Updated DateTime 5 152.4 cm 34.4 kg/m2 40640.2 6 g 67 /min 98 % 136/70 mm[Hg] [employer] 5 11:02:11 Date Recorded Body height Body mass index (BMI) Body weight Heart rate Oxygen saturation Systolic And Diastolic Provider Name and Address Organization Details Last Updated DateTime 5 152.4 cm 33.1 kg/m2 54849.5 6 g 78 /min 95 % 138/80 mm[Hg] [employer] 5 14:15:52 Date Recorded Body height Body mass index (BMI) Body weight Body temperature Heart rate Oxygen saturation Systolic And Diastolic Provider Name and Address Organization Details Last Updated DateTime 5 152.4 cm 32.8 kg/m2 81614.5 2 g 97.3 [degF] 72 /min 95 % 135/76 mm[Hg] Ruth Zhao [employer] 09:11:02 Date Recorded Body height Heart rate Oxygen saturation Body mass index (BMI) Body weight Body temperature Systolic And Diastolic Systolic And Diastolic Provider Name and Address Organization Details Last Updated DateTime 152.4 cm 65 /min 97 % 32.2 kg/m2 77687.7 4 g 97.8 [degF] 152/90 mm[Hg] 123/81 mm[Hg] Kelsey [employer] 11:56:15 Date Recorded Body height Body mass index (BMI) Body weight Heart rate Oxygen saturation Body temperature Systolic And Diastolic Provider Name and Address Organization Details Last Updated DateTime 152.4 cm 32 kg/m2 94699.1 5 g 67 /min 95 % 98.2 [degF] 131/76 mm[Hg] [employer] [employer]. 10:52:08 Social History Question Answer Notes LastModified by Organizat ion Details LastModified Time Tobacco Smoking Status Former Smoker ALBERTO PRANAV mayorga [employer]. 08/19/2023 14:46:52 Do You Have An Advance Directive? No [email or web address] Information n ot available 08/19/2023 Is Your Home Air Conditioned? Yes [email or web address] Information not available 08/19/2023 Are You Blind Or Do You Have Difficulty Seeing? Yes [email or web address] Information not available 12/23/2023 Are You A Caregiver? No [email or web address] Information not available 06/23/2024 In The 14 [...] To Be High Risk For COVID-19? No Information not available 08/19/2023 Are You Deaf Or Do You Have Serious Difficulty Hearing? Yes [email or web address] Information not available 12/23/2023 What Type Of Diet Are You Following? REGULAR [email or web address] Information n ot available 08/19/2023 Have Your Transportation Difficulties Led To Difficulty In Accessing Medical Care? Yes [email or web address] Information not available 08/02/2025 What Is The Highest Grade Or Level Of School You Have Completed Or The Highest Degree You Have Received? [id number] [email or web address] Information not available 08/02/2025 How Many Days Of Moderate To Strenuous Exercise, Like A Brisk Walk, Did You Do In The Last 7 Days? 5 [email or web address] Information not available 08/02/2025 Have There Been Any Changes To Your Family Or Social Situation? No [email or web address] Information not available 08/19/2023 When Did You Quit Smoking? 16+yearssinc elastcigaret te [email or web address] Information not available 08/19/2023 Which Of Your Hands Is Dominant? Right [email or web address] Information not available 08/02/2025 Do You Engage In Moderate/heavy Exercise (e.g. Brisk Walk, Jogging, Strength Training, Etc)? Yes [email or web address] Information not available 08/02/2025 Do You Have A Medical Power Of Gallery Director? No [email or web address] Information not available 08/19/2023 What Was The Date Of Your Most Recent Tobacco Screening? 09/27/2025 [email or web address] Information n ot available 09/27/2025 What Is Your Current Pack Years? 10-19packyea rs [email or web address] Information not available 08/19/2023 Do You Have Any Pets? Yes [email or web address] Information not available 08/19/2023 What Is Your Relationship Status? [email or web address] Information not available 08/19/2023 Do You Wear A Seatbelt When Driving Or As A Passenger? Yes [email or web address] Information not available 08/02/2025 Do You Use Your Seat Belt Or Car Seat Routinely? Yes [email or web address] Information not available 08/19/2023 Are You Sexually Active? Yes Information not available 08/02/2025 Do You Have Smoke And Carbon Monoxide Detectors In Your Home? Yes [email or web address] Information not available 08/19/2023 At What Age Did You Start Smoking Tobacco? 11 Information not available 08/02/2025 Are You Passively Exposed To Smoke? Yes [email or web address] Information no t available 08/19/2023 Are There Any Smokers In Your House? Yes [email or web address] Information not available 08/19/2023 How Much Tobacco Do You Smoke? No [email or web address] Information not available 08/02/2025 Do You Participate In Social Media? No [email or web address] Information not available 06/23/2024 Has Tobacco Cessation Counseling Been Provided? No [email or web address] Information not available 08/19/2023 How Many Years Have You Smoked Tobacco? 40 [email or web address] Information not available 08/02/2025 Have You Recently Traveled Abroad? No [email or web address] Information not available 08/19/2023 Do You Have Difficulty Walking Or Climbing Stairs? Yes Information not available 08/19/2023 Are You Currently In School? No Information not available 08/19/2023 Do You Feel Safe In Your Home? Yes Information not available 08/02/2025 Do You Have Any Dietary Restrictions? No [email or web address] Information not available 06/23/2024 Sex: Unknown Functional Status Question Answer Note LastModified by [employer] Details LastModified Time Do you use any illicit or recreational drugs? No Information not available 08/19/2023 Do you or have you ever used any other forms of tobacco or nicotine? No [email or web address] Information not available 08/19/2023 What is your level of alcohol consumption? None [email or web address] Information not available 08/19/2023 Are you currently employed? No [email or web address] Information not available 08/19/2023 Do you have transportation difficulties? Yes unable to drive herself [email or web address] Information not available 08/19/2023 Are you able to walk independently without assistance or assistive devices? YESWOREST [email or web address] Information not available 08/19/2023 Do you have difficulty doing errands alone? Yes [email or web address] Information not available 12/23/2023 Are you able to care for yourself independently? Yes [email or web address] Information not available 08/19/2023 Do you have difficulty dressing, bathing, grooming, or toileting? Yes [email or web address] Information not available 12/23/2023 Mental Status Question Answer Note LastModified by [employer] Details LastModified Time Do you feel stressed (tense, restless, nervous, or anxious, or unable to sleep at night)? [id number] [email or web address] Information not available 08/02/2025 Do you have difficulty concentrating, remembering or making decisions? Yes [email or web address] Information no t available 12/23/2023 Family History Relationship Description Onset Age of this Age Resolved Age Notes LastModified by Organization Details LastModified Time Mother Family history of Hypertension Not available 08/19/2023 14:44:48 Mother Family history of congestive heart failure [email or web address] Not available 14:44:53 Mother Family history of Myocardial infarction [email or web address] Not available 14:44:57 Mother Diabetes mellitus [email or web address] Not available 14:45:07 Mother Parkinson's disease Not [...] Immunizations Vaccine Type Date Status Note Provider Zac cerna and Address Organization Details Recorded Time Influenza, high-dose, trivalent, PF 4 completed Marly Kumar APRN [address] [place] [address], [address], [employer] 09/09/2024 11:00:39 RSV, recombinant, protein subunit RSVpreF, adjuvant reconstituted, 0.5 mL, PF 4 completed Marly Kumar APRN [address] [place], [address], [employer] 09/09/2024 11:00:39 zoster recombinant 4 chandrika Kumar APRN [address] [place], [address], [employer] 09/26/2024 17:21:28 zoster recombinant 5 chandrika Kumar APRN [address] [place], [address], [employer] 12/28/2024 12:12:07 Tdap 5 completed Codie Shah null, [employer] 05/10/2025 10:57:25 Influenza, high-dose, trivalent, PF 5 completed Codie Pablo null, [employer] 08/02/2025 14:54:57 COVID-19, mRNA, LNP-S, PF, kaz-sucrose, 30 mcg/0.3 mL 5 completed Codie Shah null, [employer] 08/02/2025 14:54:58 COVID-19, mRNA, LNP-S, PF, 100 mcg/0.5mL dose or 50 mcg/0.25mL dose 1 completed ALBERTO ROCK null, [employer] 08/19/2023 14:43:02 COVID-19, mRNA, LNP-S, PF, 30 mcg/0.3 mL dose 1 completed ALBERTO ROCK null, [employer] 08/19/2023 14:43:02 COVID-19, mRNA, LNP-S, PF, 30 mcg/0.3 mL dose 1 completed ALBERTO ROCK null, [employer] 08/19/2023 14:43:02 Influenza, split virus, trivalent, preservative 7 completed ALBERTO ROCK null, [employer] 08/19/2023 14:43:02 Influenza, split virus, trivalent, preservative 2 completed ALBERTO ROCK null, [employer] 08/19/2023 14:43:02 Influenza, split virus, trivalent, preservative 0 completed ALBERTO ROCK null, [employer] 08/19/2023 14:43:02 Influenza, split virus, trivalent, PF 4 completed ALBERTO ROCK null, [employer] 08/19/2023 14:43:02 Influenza, split virus, quadrivalent, PF 2 completed ALBERTO ROCK [facility], [place] [employer] [facility] [employer] 08/19/2023 14:43:02 Pneumococcal conjugate PCV20, polysaccharide NQS348 conjugate, adjuvant, PF 4 completed Abi Hanchie [facility], [employer] [employer] 05/26/2024 11:20:59 Past Encounters Encounter ID Performer Location Encounter Start Date Encounter Closed Date Diagnosis/Indication Diagnosis SNOMED-CT Code Diagnosis ICD10 Code Diagnosis IMO Codes Diagnosis Note [id number] FREDDY GARC[address] 0 08/19/2023 14:36:10 08/19/2023 15:40:23 Seizure disorder 389304563 G40.909 Memory impairment 970511 006 R41.3 Hypothyroidism 45570059 E03.9 Seasonal allergy 0058195 04 J30.2 Nausea 312704467 R11.0 Mixed hyperlipidemia 267 119935 E78.2 Hypertensive disorder 38 823428 I10 Anxiety disorder 3101662 06 F41.9 Insomnia 620606250 G47.0 0 Hypomagnesemia 845735275 E83.42 Gastroesop hageal reflux disease without esophagitis 923192843 K21.9 Hypokalemia 46909726 E87 .6 Candidiasis of skin 4988 3006 B37.2 [id number] [place] [address] 09/09/2023 14:09:35 09/09/2023 14:56:12 Candidiasis of skin 77101159 B37.2 Wound of skin 171683151 T14.8XXD [id number] [place] [address] 10/15/2023 10:07:51 10/15/2023 10:29:28 Long-term current use of opiate analgesic drug 2522219984 68128 Z79.008 [id number] FREDDY [place], [employer] [place] [address] 11/12/2023 08:38:20 11/12/2023 10:30:58 Localized swelling of head 3069254404 5528409 R22.0 Insomnia 481311022 G47.0 0 [id number] Pam Guevara [place] [address] 0 11/26/2023 13:07:57 11/26/2023 14:05:55 Cough 47445523 R05.9 Lower resp iratory tract infection 86948332 J22 Body mass index 25-29 - overweight 889901461 Z68.26 [id number] [place] [address] 12/23/2023 08:59:20 12/23/2023 09:48:11 Chronic low back pain 045683557 M54.50 Activity o f daily living (ADL) alteration 066984477 Z73.89 Abnormal g ait due to muscle weakness 462467855 M62.81 Insomnia 223253665 G47.0 0 Memory impairment 121733 006 R41.3 Seizure disorder 5610879 02 G40.449 [id number] [place] [address] 0 02/03/2024 09:45:35 02/03/2024 09:54:21 Difficulty demonstrating health literacy 417511361 Z55.6 [id number] [place] [address] 0 04/04/2024 09:37:30 04/04/2024 11:29:03 Needs assistance with community resources 4218056163 9102 Z76.89 [id number] Marly Kumar, [place] [address] 0 05/26/2024 11:02:27 05/26/2024 12:49:53 Hyperlipidemia 27215898 E78.5 Hypertensive disorder 38 893610 I10 Post-disch arge follow-up 199804576 Z09 Chronic ob structive pulmonary disease 71797879 J44.9 [id number] Marly Kumar APRN [place] [address] 0 06/23/2024 12:36:58 06/23/2024 13:43:14 Numbness of hand 460158019 R20.0 Ophthalmic examination and evaluation 98497989 Z01.00 Hypertensive disorder 38 266232 I10 Hyperlipidemia 38651187 E78.5 [id number] Marly Kumar APRN [address] 0 06/24/2024 08:48:48 06/24/2024 08:51:13 Finding related to health literacy 764577344 Z55.6 [id number] Marly Kumar APRN [place] [address] 0 07/27/2024 09:03:39 07/27/2024 09:40:08 Finding related to health literacy 110973059 Z55.6 Food insecurity 61203483 3 Z59.41 [id number] Marly Kumar APRN [place] [address] 0 09/08/2024 09:08:03 09/08/2024 10:49:37 Active or passive immunization 290369976 Z23 Chronic ob structive pulmonary disease 00595324 J44.9 Hyperlipidemia 77756851 E78.5 Hypertensive disorder 38 890099 I10 Insomnia 356070685 G47.0 0 Postmenopausal state 764 72612 Z78.0 Chronic back pain 171375 002 G89.29 Osteoporosis 29701875 M8 1.0 Hypokalemia 02039070 E87 .6 Body mass index 30+ - obesity 792439454 Z68.30 Adult heal th examination 905053340 Z00.01 [id number] Marly Kumar APRN [place] [address] 0 09/26/2024 08:42:47 09/26/2024 09:52:35 Hypertensive disorder 60430942 I10 Long-term drug therapy 672277433 Z79.891 Active or passive immunization 308214865 Z23 Gastroesop hageal reflux disease without esophagitis 106193571 K21.9 Peripheral demyelinating neuropathy 56747492 G62.89 Chronic back pain 357430 002 G89.29 [id number] Marly Kumar [place] [address] 0 12/07/2024 08:54:21 12/07/2024 10:12:24 Pain of left knee joint 0337355852 09771 M25.942 [id number] Marly Kumar [place] [address] 0 12/28/2024 08:11:42 12/28/2024 10:05:34 Chronic obstructive pulmonary disease 71950657 J44.9 Essential hypertension 05842125 I10 Hyperlipidemia 94638560 E78.5 Gastroesop hageal reflux disease without esophagitis 079705324 K21.9 Insomnia 951895571 G47.0 0 Restless l egs syndrome 23413395 G25.81 Hepatitis C screening 41 0729307 Z11.59 Active or passive immunization 516963955 Z23 Bilateral lower limb edema 297756080 R60.0 Pain of bi lateral hands 9791077672 4155400 M79.641 M79.854 [id number] Marly Kumar [place] [address] 0 01/23/2025 10:35:51 01/23/2025 11:32:52 Candidiasis of skin 13547616 B37.2 Cough 34742843 R05.9 Macromastia 133078870 N6 2 Restless l egs syndrome 00716868 G25.81 Screening for malignant neoplasm of breast 831935630 Z12.39 [id number] Marly Kumar [place] [address] 0 02/17/2025 14:15:48 02/17/2025 15:48:12 Cough 08325187 R05.9 Pneumonia 782419258 J18. 9 [id number] Marly Kumar [place] [address] 0 03/29/2025 08:34:18 03/29/2025 09:18:47 Hyperlipidemia 78017045 E78.5 Acute cough 1144976772 28496574 R05.0 0650936272 Acute exac erbation of chronic obstructive pulmonary disease 975254902 J44.1 519149 Seizure disorder 8123994 02 G40.909 Mixed hyperlipidemia 267 974467 E78.2 Gastroesop hageal reflux disease without esophagitis 660412973 K21.9 [id number] [place] [address] 05/10/2025 09:44:19 05/10/2025 13:24:03 Nausea 768342586 R11.0 06048 Seizure disorder 0389439 02 G40.909 Essential hypertension 96647885 I10 Quantity o f physiologic substance outside reference range 832976186 R79.89 9621689 Hypomagnesemia 934962659 E83.42 9931 Requires d iphtheria, tetanus and pertussis vaccination 226194724 Z23 653581 Fatigue 01823145 R53.83 72487983 Cobalamin deficiency 190 982435 E53.8 390993 Gastroesop hageal reflux disease without esophagitis 915601055 K21.9 Post-disch arge follow-up 888197888 Z09 068129 [id number] [place] [address] 06/14/2025 10:52:26 06/14/2025 11:23:07 Pain in bilateral feet 5132334906 5520583 M79.671 M79.810 6733598 Paresthesia of foot 3090 64459 R20.0 R20.2 66514877 [id number] [place] [address] 0 08/02/2025 14:08:01 08/02/2025 15:01:49 Anxiety 61898712 F41.9 12250 Anxiety disorder 3517570 06 F41.9 Immunization due 0219597 08 Z23 5275543 [id number] [place] [address] 08/08/2025 08:32:18 08/08/2025 10:15:24 Fever 855390111 R50.9 219862 Dyspnea 423780949 R06.02 36552 Pneumonia 235632817 J18. 9 7909774042 Body mass index 30+ - obesity 820597641 Z68.32 830492 [id number] [place] [address] 0 08/30/2025 11:30:28 08/30/2025 12:31:22 Post-discharge follow-up 347561550 Z09 999173 Essential hypertension 92499591 I10 Mixed hyperlipidemia 267 123752 E78.2 Anxiety 51719850 F41.9 86259 [id number] Marly Kumar [place] [address] 0 09/27/2025 10:40:09 09/27/2025 11:40:58 Mixed hyperlipidemia 577138893 E78.2 Hypothyroidism 53587881 E03.9 Anxiety disorder 8139732 06 F41.9 Essential hypertension 12878564 I10 Hypomagnesemia 408077960 E83.42 9931 Postmenopausal state 764 05130 Z78.0 594964 Osteoporosis 16973137 M8 1.0 Health Concerns Section Related Observation LastModified by Organization Detai ls LastModified Time None Recorded Concern Status LastModified by Organization Details LastModified Time None Recorded Advance Directives Directive N: Payers Insurance Date Sequence Insurance Name Policy Number Policy Cordero Covered Member ID Cordero Member ID Guarantor Name 10/18/2025 [employer] - DMEPOS ASSIGNED (MEDICARE DME REGION B) Jackqueline F Gregorio [id number] Patricioline Gregorio 11/24/2024 SLIDING FEE SCHEDULE - DISCOUNT Xavierqueline Gregorio 02/17/2025 1 [place] Jackqueline F Gregorio [id number] Jackqueline Gregorio 02/17/2025 [place] [facility] Jackqueline Gregorio [id number] Jackqueline Gregorio 02/17/2025 2 [place] [id number] Jackqueli Charito Perkins [id number] Jackqueline Gregorio 10/02/2025 2 [place] [facility] - FFS/TRADITIONAL Xavierqueli Gregorio [id number] Xavierqueline Gregorio 02/02/2024 2 UNSPECIFIED REMIT PAYOR Eloy Perkins 04/09/2024 SLIDING FEE SCHEDULE - DISCOUNT Patricioline Gregorio 02/17/2025 [place] [employer] - [facility] Xavierqueline Gregorio [id number] Xavierqueline Gregorio 02/17/2025 2 [facility] [place] ([place]ICAID REPLACEMENT - HMO) [id number] Jackqueline F Gregorio [id number] Xavierqueline Gregorio 10/18/2025 1 [place] Jackterrieline F Gregorio [id number] Xavierqueline Gregorio 10/15/2025 [place] [employer] - C Patricioline Charito Perkins [id number] Xavierqueline Gregorio Notes Date Note Type Note Provider Name and Address Organization Details Recorded Time 06/14/2025 text/html Patient presents for follow up. Bilateral feet have been burning on the bottom for the last week. No injury or fall. She has never had this before. She is going to see someone in [place] to have a NCV of upper extremity. She saw cardiology yesterday and they are going to do another procedure in 08/2025. (They have to deactivate pacemaker for procedure to be performed so Dr. Garay sent her to [facility] Dr Cooney for procedure.She has had one seizure a couple of weeks ago. States it was mild. She is going to see another specialist in [place], [place] - Dr. Duong (neuro). She has no other concerns today. Marly Kumar, SHAKIRA [address] [place] [address], [place], [address], [employer] 06/16/2025 21:30:31 08/02/2025 text/html Patient presents for evaluation of anxiety. She has a lot going on and just feels more anxious than normal and would like to discuss medication change.Her household: Currently 3 great grandchildren are living there and then the dogs as well are always barking. She states her anxiety has been very high.Anxiety at the day center as well, but it is better to get out of the house. Her son also recently overdosed. Lives with her son, her daughter, granddaughter, 3 great grandchildren, and great grandchildren's dad. She is sleeping in a recliner (she states by choice). There is no where to put a hospital bed. She is trying to find somewhere to live and is working with someone from her insurance. I also put her in contact with our CHW. She feels safe at home. She states that she has what she needs at home as well. Marly Kumar, SHAKIRA [address] [place], [address], [employer]. 08/03/2025 16:02:58 08/08/2025 text/html pt here today with c/o soa, lung pain, non productive cough and fever for 7 days since getting flu and covid vaccine on 08/02. pt states that she started feeling bad and then has gotten progressively worse. rapid flu and covid neg. on exam, pt appear ill. states she is weak. ears WNL, throat WNL, lungs decreased with strong, congested cough. i am going to order abx, steroids and cough med and xray. advised pt to increase fluid intake and make sure she is taking big deep breaths. return for worsening symptoms. Pam Guevara APRN [address] [facility], [place], [address], [employer] 08/08/2025 10:37:31 08/30/2025 text/html Patient presents for hospital follow up. She was recently sent to ER for right eye drooping and was transferred to [facility] and admitted x 3 days. She states they told her she had TIA. She was put on plavix initially, but then they stopped it and told her to wait until this visit to discuss whether she should take it. She is still taking her aspirin as previously recommended by cardiology.She states she is being evicted from her home - she is working with [facility] about this.No seizures since last visit. She is a little more tired today. Marly Kumar APRN [address] [facility], [place], [address], [employer] 08/30/2025 13:02:45 09/27/2025 text/html Patient presents for follow up. [...] me to do so. Marly Kumar APRN [address] [place], [address], [employer] 10/04/2025 15:20:23 OBGyn Episode No OBEpisode recorded.
--- OUTSIDE RECORDS SUMMARY | 2025-10-28 10:32 | XMS_ITS | Encounter Summary ---
Author Organization [employer] ([place], [place], [place], [place], [place]) Address [address] [place] [address] Care Team Providers Care Director Of Leadership Development Name Role Phone Marly Kumar WAFER FABRICATION OPERATOR Primary Care Provider [phone] Encounter Details Date Type Department Care Team (Late st Contact Info) Description 07/26/2020 Transcribed Document [facility] [place] [address] ProviderMiya MD [address] [place] [address] Social History Tobacco Use Types Packs/Day [...] On: 07/26/2020 15:58 EDT by EDISON FONTANEZ, RN-Insight Leader Initial Assessment I Previously Documented Living Environment [...] Is Guardianship Needed : No EDISON FONTANEZ, RN-Insight Leader - 07/26/2020 15:58 EDT Initial Assessment II Sensory and Motor Deficits : Weakness Deficit Description : uses a wheelchair for mobility Current Home Treatments and Equipment : Wheelchair Services and Community Resources : Transportation assistance Services and Community Resources Addl Comments : [facility] phone [phone] fax [phone] [employer] [facility] phone [phone] / [phone] Does the Patient have a Floor to SNF Benefit? : No EDISON FONTANEZ, RN-Insight Leader - 07/26/2020 15:58 EDT Discharge Needs I Anticipated Discharge Date : 07/28/2020 EDT Anticipated Discharge To, : Extended Care Facility Current Home Treatment/Equipment : Current Home Treatment/Equipment No qualifying data available. Post Acute/Home Treatments : None Documentation Status Complete : Yes EDISON FONTANEZ, RN-Insight Leader - 07/26/2020 15:58 EDT Discharge Needs II Professional Skilled Services : Professional Skilled Services No qualifying data available. Needs Assistance with Transportation : Yes EDISON FONTANEZ, RN-Insight Leader - 07/26/2020 15:58 EDT Narrative Note Narrative Note : Pt from [facility] in [facility]. Called Em at [facility]. She stated that pt has a bedhold. She stated that pt travels using [employer] (the bus). She stated that pt can return to the facility when she is discharged. EDISON FONTANEZ, RN-Insight Leader - 07/26/2020 15:58 EDT documented in this encounter Plan of Treatment Not on file documented as of this encounter Visit Diagnoses Not on filedocumented in this encounter Care Teams Director Of Leadership Development Relationship Specialty Start Date End Date Marly Kumar, DUNG [address] [place] [address] PCP - General Nurse Practitioner 09/22/24 documented as of this encounter
--- OUTSIDE RECORDS SUMMARY | 2025-10-28 10:32 | XMS_ITS | Encounter Summary ---
Author Organization [employer] ([place], [place], [place], [place], [place]) Address [address] [place] [address] Care Team Providers Care Waste Recycler Name Role Phone Marly Kumar PIN DRAFTING MACHINE TENDER Primary Care Provider [phone] Encounter Details Date Type Department Care Team (Late st Contact Info) Description 07/27/2020 Transcribed Document [facility] [place] [facility] [place] [address] ProviderMiya MD [address] [place] [address] Social History Tobacco Use Types Packs/Day [...] On: 07/27/2020 14:25 EDT by EDISON FONTANEZ, RN-Bookstore ClerkNeedle Control Cheniller Progress Note Discharge Arrangements : Patient Post-Acute [...] Attend Multidisciplinary Rounds? : No EDISON FONTANEZ, RN-Bookstore Clerk - 07/27/2020 14:25 EDT Narrative Progress Note Narrative Progress Note : Continues on EEG monitoring. Updates faxed to [facility]. Historical Progress Note : On continuous EEG monitoring. EDISON FONTANEZ RN-Bookstore Clerk - 07/26/20 16:04:13 EDISON FONTANEZ RN-Bookstore Clerk - 07/27/2020 14:25 EDT Electronically signed by Klaus Sprague Conversion Industry Operations Investigator Cerner at 02/19/2023 6:34 PM CDT documented in this encounter Plan of Treatment Not on file documented as of this encounter Visit Diagnoses Not on filedocumented in this encounter Care Teams Waste Recycler Relationship Specialty Start Date End Date Marly Kumar NP [address] [place] [address] PCP - General Nurse Practitioner 09/22/24 documented as of this encounter
--- OUTSIDE RECORDS SUMMARY | 2025-10-28 10:32 | XMS_ITS | Encounter Summary ---
Author Organization [employer] ([place], [place], [place], [place], [place]) Address [address] [place] [address] Care Team Providers Care Calender Machine Operator Helper Name Role Phone Marly Kumar CONSTRUCTION SAFETY MANAGER Primary Care Provider [phone] Encounter Details Date Type Department Care Team (Late st Contact Info) Description 07/26/2020 Transcribed Document [facility] [place] [facility] [place] [address] ProviderMiya MD [address] [place] [address] Social History Tobacco Use Types Packs/Day [...] On: 07/26/2020 11:36 EDT by Jerry Hewitt DECORATING INSPECTOR LEAD Meds to Bed Enrollment Patient Enrollment Decision: : Yes/enroll in meds to bed program Jerry Hewitt DECORATING INSPECTOR LEAD - 07/26/2020 14:08 EDT documented in this encounter Plan of Treatment Not on file documented as of this encounter Visit Diagnoses Not on filedocumented in this encounter Care Teams Calender Machine Operator Helper Relationship Specialty Start Date End Date Marly Kumar, DUNG [address] [place] [address] PCP - General Nurse Practitioner 09/22/24 documented as of this encounter
--- OUTSIDE RECORDS SUMMARY | 2025-10-28 10:32 | XMS_ITS | Encounter Summary ---
Author Organization [employer] ([place], [place], [place], [place], [place]) Address [address] [place] [address] Care Team Providers Care Organ Assembler Name Role Phone Marly Kumar ACCOUNT DEVELOPER Primary Care Provider [phone] Encounter Details Date Type Department Care Team (Late st Contact Info) Description 07/26/2020 Transcribed Document [facility] [place] [facility] [place] [address] ProviderMiya MD [address] [place] [address] Social History Tobacco Use Types Packs/Day [...] Services : Nursing, Occupational therapy, Physical Therapy, bridge repair crew person, Respiratory Therapy, Rewriter Courtney Kearns RN - 07/26/2020 16:24 EDT General Info 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 targeting 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 [facility] Mode of Arrival on Unit : Wheelchair Patient Arrival Date/Time : 07/26/2020 12:00 EDT Legal Guardian : Care provider Legal Guardian : No Support Person/Patient Concrete Placement Equipment Operator : No Support Person/Pt Rep Name : [facility] [phone] Want Family/Rep/Phys Notified of Admit : No Emergency Contact #1 : Mckenna Mata Emergency Contact #1 Emergency Contact #1 Relationship : daughter Emergency Contact #2 : n/a Emergency Contact #2 Phone Number : n/a Emergency Contact #2 Relationship : n/a Information Obtained From : Medical Record Primary Language : Indonesian Preferred Communication Mode : Verbal Communication Barrier : None Assistant General Manager Needed : No Objects to Sharing Info [...] Level : 46 or > High Risk [place] Fall Interventions : Adequate lighting, Bed in [...] Source : Stated Height Entry Format : [place] Height, Feet : 4 ft(Converted to: 122 cm, 48 Inch) Height, Inches : 11 Inch(Converted to: 0 ft 11 Inch, 27.94 cm) Clinical Height : 149.86 cm Weight Source : Stated [place] Body Weight : 43 kg Courtney Kearns RN - 07/26/2020 16:24 EDT Estimated Weight Type of Weight Measurement Est : [place] Weight, est lb : 245 lb(Converted [...] Assessment : Pt transferred from SNF, LTC, [facility], or rehab hospital Active Surveillance Screen Positive [...] Courtney Kearns RN - 07/26/2020 16:24 EDT [place] Suicide Severity Rating Scale (C-SSRS) CSSRS [...] on filedocumented in this encounter Care Teams Organ Assembler Relationship Specialty Start Date End Date Marly Kumar NP [address] [place] [address] PCP - General Nurse Practitioner 09/22/24 documented as of this encounter
--- OUTSIDE RECORDS SUMMARY | 2025-10-28 10:32 | XMS_ITS | Continuity of Care Document ---
Author Organization ID - [employer] [facility] Address [address] [place] [address] Care Team Providers Care Station Examiner Name Role Phone MELINA KIMBERLY Community Health Worker Assessment Encounter Date Assessment Date Assessment LastModified by Organization Details LastModified Time 08/30/2025 08/30/2025 Continue with plan to see cardiology and discuss plavix further at that visit. Continue current regimen. Offered referral to for evaluation of anxiety. Encouraged patient to consider nursing home facility referral for physical / occupational therapy after recent hospitalization , but she declines. Follow up in 1 month for recheck, sooner if needed. Not available 08/30/2025 13:02:10 Plan of Treatment Reminders Order Date Submit Date Provider Last Modified By Organization Details Last Modified Time Details Appointments TRANSP ORTATI ON 2025 01:30P M Transporter Not available Not available Not available FOLLOW UP 2025 02:00P M Marly Kumar Not available Not available Not available Lab None record ed. Referral None record ed. Procedures None record ed. Surgeries None record ed. Imaging None record ed. Medication Orders None record ed. Patient TargetsNo targets recorded. Patient InstructionsNo instructions recorded. Reason for Referral None Reported. Results Created Date Observation Date Name Description Value Unit Range Abnormal Flag Note LastModifiedBy Organization Detail LastModifiedTime 08/08/20 25 08/08/2025 rapid influ [place] virus A + B and SARS CoV + SARS CoV 2 Ag panel , [place], upper respi rator y speci men SARS-CoV2 negati ve Not Available [employer] [address] [facility], [place], [address], 08/08/2025 09:12:04 08/08/2008/08/2025 rapid influ [place]lexand[place] virus A + B and SARS CoV + SARS CoV 2 Ag panel , [place], upper respi rator y speci men Flu A negati ve Not Available [address], [address], 08/08/2025 09:12:04 08/08/2008/08/2025 rapid influ alexandria virus A + B and SARS CoV + SARS CoV 2 Ag panel , [place], upper respi rator y speci men Flu B negati ve Not Available [address], [address], 08/08/2025 09:12:04 08/08/20 XR, chest , 2 view No observ ation record ed. [email or web address] [address], [address], 08/08/2025 16:34:02 08/23/2008/23/2025 CT, head + brain , w/o contr ast No observ ation record ed. [place] [id number], [place], [address], 08/25/2025 09:30:42 08/23/2008/23/2025 CT, angio gram, neck, w/wo contr ast No observ ation record ed. [address], [place], [place], [address], 08/25/2025 09:30:26 08/23/2008/23/2025 CT, angio gram, head, w/wo contr ast No observ ation record ed. [place] [address], [place], [place], [address], 08/25/2025 09:30:08 08/24/20 25 08/23/2025 elect halima diogr am, routi ne ECG, 12 leads min No observ ation record ed. [address], [place], [address], 08/25/2025 09:27:12 08/24/20 25 08/24/2025 US, doppl er echoc ardio gram No observ ation record ed. [address], [place], [address], 08/25/2025 09:24:11 10/18/20 25 10/17/2025 MAMMO , diagn ostic , digit al, unila teral No observ ation record ed. [address] Centralized Scheduling [address] [place], [address], 10/19/2025 14:44:04 10/19/20 25 10/17/2025 MAMMO , diagn ostic , digit al, unila teral No observ ation record ed. [address] Centralized Scheduling [address] [place], [id number], 10/19/2025 14:44:04 10/24/20 25 10/24/2025 imagi ng/di agnos tic resul t No observ ation record ed. [place] [id number], [place], [address], 10/25/2025 09:49:25 10/24/20 25 10/24/2025 imagi ng/di agnos tic resul t No observ ation record ed. [place] [id number], [place], [address], 10/25/2025 09:49:25 Result Notes None recorded. Problems Name Problem SNOMED Code Status Onset Date Resolution Date Notes Provider Name and Address Organization Details Recorded Time Acute on chronic systolic heart failure 700696436 Completed 201611/25/2016 Not Available [facility] 2 21:36:04 Bronchop neumonia 522493907 Completed 201601/19/2017 Problem Code: J18.0; Problem Code Type: ICD-10; Not Available [facility] 2 21:36:04 Congesti ve heart failure 58893374 Completed 201611/25/2016 Problem Code: 428.0; Problem Code Type: ICD-9; Not Available [facility] 2 21:36:05 Pneumoco ccal pneumoni a 903611176 Completed 201601/19/2017 Problem Code: 481; Problem Code Type: ICD-9; Not Available [facility] 21:36:05 Bronchop neumonia 589464464 Completed 201601/24/2017 Problem Code: J18.0; Problem Code Type: ICD-10; Not Available [facility] 2 21:36:04 Pneumoco ccal pneumoni a 854901422 Completed 201601/24/2017 Problem Code: 481; Problem Code Type: ICD-9; Not Available [facility] 21:36:05 Pain of left wrist 32367638902 9102 Completed 201604/25/2017 Problem Code: M25.532; Problem Code Type: ICD-10; Not Available [facility] 2 21:36:04 Localize d edema 679165435 Completed 201604/25/2017 Problem Code: R60.0; Problem Code Type: ICD-10; Not Available [facility] 2 21:36:05 Pain of joint of wrist 173966748 Completed 201604/25/2017 Problem Code: 719.43; Problem Code Type: ICD-9; Not Available [facility] 21:36:05 Edema 598249989 Completed 201604/25/2017 Problem Code: 782.3; Problem Code Type: ICD-9; Not Available [facility] 2 21:36:05 Hyperten sive disorder 61328212 Completed 202209/27/2025 Marly Kumar APRN [address] [place] [address], [address] [place] [address] , [place] [employer] 5 08:49:10 Hyperlip idemia 82330481 Completed 202203/29/2025 Marly Kumar APRN [address] [place] [address], [address] [place] [address] , [place] [employer] 5 09:38:16 Chronic obstruct mark pulmonar y disease 18463156 Active [address], [address] [place] [address] , [employer] 3 14:59:59 Hypothyr oidism 87817839 Active [address], [address] [place] [address] , [employer] 3 15:01:45 Monitori ng of pacemake r 19667281 Active [address], [address] [place] [address] , [employer] 3 15:22:52 Seizure disorder 062773580 Active 2022 Marly Harristk SLIDE ATTENDANT [address] [place] [address], [address] [place] [address] , [employer] 4 18:02:53 Memory impairme nt 166641672 Active 2022 Marly Harristk SLIDE ATTENDANT [address] [place] [address], [address] [place] [address] , [employer] 4 18:02:44 Seasonal allergy 183798123 Active 2022 Marly Kumar SLIDE ATTENDANT [address] [place] [address], [address] [place] [address] , [employer] 4 18:02:51 Nausea 436203762 Completed 202205/26/2024 Marly Kumar SLIDE ATTENDANT [address] [place] [address], [address] [place] [address] , [employer] 5 08:49:37 Mixed hyperlip idemia 147771914 Active 2022 Marly HarrisSHAKIRA frey [address] [place] [address], [address] [place] [address] , [employer] 4 18:02:46 Anxiety disorder 689033362 Completed 202205/26/2024 Marly Kumar APRN [address] [place] [address], [address] [place] [address] , [employer] 4 12:06:47 Insomnia 636761967 Active 2022 Marly Kumar APRN [address] [place] [address], [address] [place] [address] , [employer] 4 18:02:40 Hypomagn esemia 550195230 Completed 202205/26/2024 Marly Kumar APRN [address] [place] [address], [address] [place] [address] , [employer] 5 08:53:13 Gastroes ophageal reflux disease without esophagi tis 799949549 Active 2022 Marly Kumar APRN [address] [place] [address], [address] [place] [address] , [employer] 4 18:02:34 Hypokale caitlyn 21801958 Completed 202205/26/2024 Marly Kumar APRN [address] [place] [address], [address] [place] [address] , [employer] 5 09:20:02 Candidia sis of skin 96103514 Completed 202205/26/2024 Marly Kumar APRN [address] [place] [address], [address] [place] [address] , [employer] 5 14:39:29 Wound of skin 954804754 Completed 202209/27/2025 Marly Kumar APRN [address] [place] [address], [address] , [place] [employer] 5 08:49:19 Localize d swelling of head 16122947216 023238 Completed 202305/26/2024 Marly Kumar APRN [address] [place] [address], [address] , [place] [employer] 4 18:02:42 Chronic low back pain 537658937 Active 2023 Marly Kumar APRN [address] [place] [address], [address] , [place] [employer] 4 18:02:29 Abnormal gait due to muscle weakness 086670477 Completed 202305/26/2024 Marly Kumar APRN [address] [place] [address], [address] , [place] [employer] 4 12:06:44 Diarrhea 41502663 Completed 202305/26/2024 Marly Kumar APRN [address] [place] [address], [address] , [place] [employer] 4 18:02:32 Numbness of hand 157467074 Completed 202309/08/2024 Marly Kumar APRN [address] [place] [address], [address] , [place] [employer] 4 09:59:28 Peripher al demyelin ating neuropat hy 01721423 Active 2023 Marly Kumar APRN [address] [place] [address], [address] , [place] [employer] 4 09:59:26 Chronic back pain 730875743 Active 2023 Marly Kumar APRN [address] [place] [address], [address] , [place] [employer] 5 09:19:42 Osteopor osis 88972687 Active 2023 Marly José, [address], [address] , [employer] 09:19:56 Hypokale caitlyn 21099497 Completed 202312/07/2024 Marly Kumar [address], [address] , [place] [employer] 09:20:02 Urinary incontin ence 395611901 Active 2023 Marly Kumar [address], [address] , [employer] 09:19:58 Essentia l hyperten patricia 07281664 Active 2024 Marly Kumar APR[address], [address] [place] [address] , [employer] 09:19:43 Pain of left knee joint 95989208273 4107 Completed 202401/23/2025 Marly Kumar APR[address], [address] [place] [address] , [employer] 11:21:21 Restless legs syndrome 64750318 Active 2024 Marly Kumar APRN [address] [place] [address], [address] [place] [address] , [employer] 5 11:21:23 Bilatera l lower limb edema 781005146 Completed 202401/23/2025 Marly Kumar APR[address], [address] , [employer] 5 11:21:15 Pain of bilatera l hands 17664869709 436446 Completed 202401/23/2025 Marly Kumar APR[address], [address] , [employer] 5 11:21:18 Candidia sis of skin 65118418 Completed 202402/17/2025 Marly Kumar APRN [address] [place] [address], [address] , [place] [employer] 14:39:28 Cough 76228873 Completed 202409/27/2025 Marly Kumar APRN [address] [place], [address] , [place] [employer] 08:49:24 Macromas tia 845021124 Completed 202409/27/2025 Marly Kumar APRN [address] [place] [address], [address] , [place] [employer] 08:49:22 Mammogra phy abnormal 285277822 Active 2024 Marly Kumar APRN [address] [place] [address], [address] , [place] [employer] 09:14:58 Pneumoni a 702589077 Completed 202403/29/2025 Marly Kumar APRN [address] [place] [address], [address] , [place] [employer] 09:02:21 Acute cough Completed 202405/10/2025 Marly Kumar APRN [address] [place] [address], [address] , [place] [employer] 10:28:29 Acute exacerba tion of chronic obstruct mark pulmonar y disease 533218935 Completed 202405/10/2025 Marly Kumar APRN [address] [place] [address], [address] , [place] [employer] 10:28:27 Nausea 649972210 Completed 202409/27/2025 Marly Kumar APRN [address] [place] [address], [address] , [place] [employer] 08:49:37 Quantity of physiolo gic substanc e outside referenc e range 358367994 Completed 202408/30/2025 Marly Kumar APRN [address] [place] [address], [address] [place] [address] , [employer] 13:00:44 Hypomagn esemia 187127940 Active 2024 Marly Kumar APRN [address] [place] [address], [address] [place] [address] , [employer] 08:53:13 Fatigue 61540359 Completed 202408/30/2025 Marly Kumar APRN [address] [place] [address], [address] [place] [address] , [employer] 13:00:51 Cobalami n deficien cy 970414748 Active 2024 Marly Kumar APRN [address] [place] [address], [address] [place] [address] , [employer] 13:00:55 Pain 81657906 Completed 202409/27/2025 Marly Kumar APRN [address] [place] [address], [address] [place] [address] , [employer] 08:49:38 Pain in bilatera l feet 89131257466 225578 Active 2024 Marly Kumar APRN [address] [place] [address], [address] [place] [address] , [employer] 13:00:47 Paresthe herson of foot 281889105 Active 2024 Marly Kumar APRN [address] [place] [address], [address] [place] [address] , [employer] 13:00:45 Anxiety 53000439 Active 2024 Marly Kumar APRN [address] [place] [address], [address] , [employer] 08:49:30 Fever 216330818 Completed 202408/30/2025 Marly Kumar, SLIDE ATTENDANT [address] [place], [address] , [employer] 5 13:00:50 Vitamin D deficien 45692737 Active 2024 Marly Kumar APRN [address] [place], [address] , [employer] 5 10:35:10 Problem Notes None recorded. Procedures Surgical History Date Name Laterality Status Provider Name and Address Organization Details Recorded Time 11/02/19 23 Most Recent Mammogram completed [place] [employer] [facility] [employer]. 11/26/2023 13:21:36 10/29/20 16 cholecystectomy completed Not Available [facility] 07/08/2022 22:56:19 10/29/20 16 hernia repair completed Not Available [facility] 07/08/2022 22:56:20 10/29/20 16 hysterectomy completed Not Available [facility] 07/08/2022 22:56:21 lumpectomy of right breast completed 5 Minutes. 08/19/2023 14:52:33 Imaging Results None recorded. Procedure Notes None recorded. Medical Equipment None Reported. Allergies Allergen ID Allergen Name Allergen Category Reaction Reaction Severity Criticality Documentation Date Start Date Code Code System Note Provider Name and Address Organization Details Recorded Time 80010 Product containin g penicilli n (product) medicatio n Not available Not available Not available 07/08/2022 68862 8001 SNOMED ALBERTO [employer] 3 14:43:11 37265 Substance with sulfonami de structure and antibacte rial mechanism of action (substanc e) medicatio n Not available Not available Not available 07/08/2022 15234 8003 SNOMED ALBERTO [employer] 3 14:43:16 35604 Fosamax medicatio n Not available Not available Not available 07/08/2022 94442 5 RxNorm Not Available [facility] 2 22:55:02 31993 tamsulosi n medicatio n other Not available low 09/25/20252022 79232 RxNorm Sick to stoma ch Not Available erich - External Data Service - prod 12:37:33 49681 alendroni c acid Not available Not available Not available Not available 09/25/2025 85884 3 RxNorm unrec ogniz ed react ion (text : Adver se react ion to subst ance, code: 69823 0009) (from exter nal sour e) Not Available [facility] - External Data Service - prod 12:37:42 11113 gabapenti n medicatio n Not available Not available Not available 09/25/20252020 27124 RxNorm unrec ogniz ed react ion (text : Irrit abili ty, code: 87695 6000) (from exter nal sour e) Not Available [facility] - External Data Service - prod 12:37:54 90150 alendrona te sodium medicatio n Not available Not available low 09/25/20252016 60326 2 RxNorm Not Available [facility] - External Data Service - prod 12:38:24 Medications [...] Not Available Vitals Date Recorded Body height Heart rate Oxygen saturation Body mass index (BMI) Body weight Body temperature Systolic And Diastolic Systolic And Diastolic Provider Name and Address Organization Details Last Updated DateTime 152.4 cm 65 /min 97 % 32.2 kg/m2 91942.7 4 g 97.8 [degF] 152/90 mm[Hg] 123/81 mm[Hg] Kelsey Chris [facility]. 11:56:15 Social History Question Answer Notes LastModified by Organizat ion Details LastModified Time Tobacco Smoking Status Former Smoker ALBERTO mayorga, [employer]. 08/19/2023 14:46:52 Do You Have An Advance Directive? No [email or web address] Information n ot available 08/19/2023 Is Your Home Air Conditioned? Yes [email or web address] Information not available 08/19/2023 Are You Blind Or Do You Have Difficulty Seeing? Yes [email or web address] Information not available 12/23/2023 Are You A Caregiver? No Information not available 06/23/2024 In The 14 [...] Do You Have Serious Difficulty Hearing? Yes [email or web address] Information not available 12/23/2023 What Type Of Diet Are You Following? REGULAR [email or web address] Information n ot available 08/19/2023 Have Your Transportation Difficulties Led To Difficulty In Accessing Medical Care? Yes [email or web address] Information not available 08/02/2025 What Is The Highest Grade Or Level Of School You Have Completed Or The Highest Degree You Have Received? TZ96763-1 [email or web address] Information not available 08/02/2025 How Many Days Of Moderate To Strenuous Exercise, Like A Brisk Walk, Did You Do In The Last 7 Days? 5 [email or web address] Information not available 08/02/2025 Have There Been Any Changes To Your Family Or Social Situation? No [email or web address] Information not available 08/19/2023 When Did You Quit Smoking? 16+yearssinc elastcigaret te [email or web address] Information not available 08/19/2023 Which Of Your Hands Is Dominant? Right Information not available 08/02/2025 Do You Engage In Moderate/heavy Exercise (e.g. Brisk Walk, Jogging, Strength Training, Etc)? Yes [email or web address] Information not available 08/02/2025 Do You Have A Medical Power Of Die Mechanic? No [email or web address] Information not available 08/19/2023 What Was The Date Of Your Most Recent Tobacco Screening? 09/27/2025 [email or web address] Information n ot available 09/27/2025 What Is Your Current Pack Years? 10-19packyea rs [email or web address] Information not available 08/19/2023 Do You Have Any Pets? Yes [email or web address] Information not available 08/19/2023 What Is Your Relationship Status? [email or web address] Information not available 08/19/2023 Do You Wear A Seatbelt When Driving Or As A Passenger? Yes [email or web address] Information not available 08/02/2025 Do You Use Your Seat Belt Or Car Seat Routinely? Yes [email or web address] Information not available 08/19/2023 Are You Sexually Active? Yes [email or web address] Information not available 08/02/2025 Do You Have Smoke And Carbon Monoxide Detectors In Your Home? Yes Information not available 08/19/2023 At What Age Did You Start Smoking Tobacco? 11 Information not available 08/02/2025 Are You Passively Exposed To Smoke? Yes [email or web address] Information no t available 08/19/2023 Are There Any Smokers In Your House? Yes [email or web address] Information not available 08/19/2023 How Much Tobacco Do You Smoke? No [email or web address] Information not available 08/02/2025 Do You Participate In Social Media? No [email or web address] Information not available 06/23/2024 Has Tobacco Cessation Counseling Been Provided? No [email or web address] Information not available 08/19/2023 How Many Years Have You Smoked Tobacco? 40 [email or web address] Information not available 08/02/2025 Have You Recently Traveled Abroad? No [email or web address] Information not available 08/19/2023 Do You Have Difficulty Walking Or Climbing Stairs? Yes [email or web address] Information not available 08/19/2023 Are You Currently In School? No Information not available 08/19/2023 Do You Feel Safe In Your Home? Yes [email or web address] Information not available 08/02/2025 Do You Have Any Dietary Restrictions? No [email or web address] Information not available 06/23/2024 Sex: Unknown Functional Status Question Answer Note LastModified by Chug ion Details LastModified Time Do you use any illicit or recreational drugs? No [email or web address] Information not available 08/19/2023 Do you or have you ever used any other forms of tobacco or nicotine? No [email or web address] Information not available 08/19/2023 What is your level of alcohol consumption? None [email or web address] Information not available 08/19/2023 Are you currently employed? No [email or web address] Information not available 08/19/2023 Do you have transportation difficulties? Yes unable to drive herself [email or web address] Information not available 08/19/2023 Are you able to walk independently without assistance or assistive devices? YESWOREST [email or web address] Information not available 08/19/2023 Do you have difficulty doing errands alone? Yes [email or web address] Information not available 12/23/2023 Are you able to care for yourself independently? Yes [email or web address] Information not available 08/19/2023 Do you have difficulty dressing, bathing, grooming, or toileting? Yes [email or web address] Information not available 12/23/2023 Mental Status Question Answer Note LastModified by Partschannelizat ion Details LastModified Time Do you feel stressed (tense, restless, nervous, or anxious, or unable to sleep at night)? AI48532-1 [email or web address] Information not available 08/02/2025 Do you have difficulty concentrating, remembering or making decisions? Yes leann Information no t available 12/23/2023 Family History Relationship Description Onset Age of this Age Resolved Age Notes LastModified by Organization Details LastModified Time Mother Family history of Hypertension Not available 08/19/2023 14:44:48 Mother Family history of congestive heart failure [email or web address] Not available 14:44:53 Mother Family history of Myocardial infarction [email or web address] Not available 14:44:57 Mother Diabetes mellitus [email or web address] Not available 14:45:07 Mother Parkinson's disease [email or web address] Not available 14:45:25 Medical History Condition Response ADD/ADHD N High Cholesterol Y Hospitalizations N Acid Reflux (GERD) N Emergency room visit since last appointm ent. N Hypertension Y Abuse/Domestic Violence N Hypothyroidism Y Acne N Gynecological History Statement/Question Response Date of Last Pap Smear Most Recent Mammogram 11/02/2022 Obstetrics History GPAL:G 0 P 0 0 0 0 Immunizations Vaccine Type Date Status Note Provider Nam e and Address Organization Details Recorded Time Influenza, high-dose, trivalent, PF 4 completed Marly Kumar APRN [address] [place] [address], [address], [employer] 09/09/2024 11:00:39 RSV, recombinant, protein subunit RSVpreF, adjuvant reconstituted, 0.5 mL, PF 4 completed Marly Kumar APRN [address] [place] [address], [address], [employer] 09/09/2024 11:00:39 zoster recombinant 4 completed Marly Kumar APRN [address] [place] [address], [address], [employer] 09/26/2024 17:21:28 zoster recombinant 5 completed Marly Kumar APRN [address] [place] [address], [address], [employer] 12/28/2024 12:12:07 Tdap 5 completed Codie Shah null, [employer] 05/10/2025 10:57:25 Influenza, high-dose, trivalent, PF 5 completed Codie Shah null, [employer] 08/02/2025 14:54:57 COVID-19, mRNA, LNP-S, PF, kaz-sucrose, 30 mcg/0.3 mL 5 completed Codie Shah null, [employer] 08/02/2025 14:54:58 COVID-19, mRNA, LNP-S, PF, 100 mcg/0.5mL dose or 50 mcg/0.25mL dose 1 completed ALBERTOTIM ROCK null, [employer] 08/19/2023 14:43:02 COVID-19, mRNA, LNP-S, PF, 30 mcg/0.3 mL dose 1 completed ALBERTO ROCK null, [employer] 08/19/2023 14:43:02 COVID-19, mRNA, LNP-S, PF, 30 mcg/0.3 mL dose 1 completed ALBERTO ROCK null, [employer] 08/19/2023 14:43:02 Influenza, split virus, trivalent, preservative 7 completed ALBERTO ROCK null, [employer] 08/19/2023 14:43:02 Influenza, split virus, trivalent, preservative 2 completed ALBERTO ROCK null, [employer] 08/19/2023 14:43:02 Influenza, split virus, trivalent, preservative 0 completed ALBERTO ROCK null, [employer] 08/19/2023 14:43:02 Influenza, split virus, trivalent, PF 4 completed ALBERTO ROCK null, [facility] [employer] [employer] 08/19/2023 14:43:02 Influenza, split virus, quadrivalent, PF 2 completed ALBERTO ROCK null, [facility] [employer] 08/19/2023 14:43:02 Pneumococcal conjugate PCV20, polysaccharide TMG041 conjugate, adjuvant, PF 4 completed Abi Hanchie [facility], [facility] 05/26/2024 11:20:59 Past Encounters Encounter ID Performer Location Encounter Start Date Encounter Closed Date Diagnosis/Indication Diagnosis SNOMED-CT Code Diagnosis ICD10 Code Diagnosis IMO Codes Diagnosis Note [id number] [place] [address] 08/02/2025 14:08:01 08/02/2025 15:01:49 Anxiety 70021113 F41.9 53485 Anxiety disorder 3482943 06 F41.9 Immunization due 0762097 08 Z23 4378259 [id number] [place] [id number] 0 08/08/2025 08:32:18 08/08/2025 10:15:24 Fever 706109640 R50.9 250000 Dyspnea 015753383 R06.02 99784 Pneumonia 511162950 J18. 9 6927351110 Body mass index 30+ - obesity 320563714 Z68.32 606242 [id number] [place] [id number] 0 08/30/2025 11:30:28 08/30/2025 12:31:22 Post-discharge follow-up 423705901 Z09 906212 Essential hypertension 18619298 I10 Mixed hyperlipidemia 267 124126 E78.2 Anxiety 69638915 F41.9 44711 Health Concerns Section Related Observation LastModified by Organization Detai ls LastModified Time None Recorded Concern Status LastModified by Organization Details LastModified Time None Recorded Payers Encounter Date Sequence Insurance Name Policy Number Policy Cordero Covered Member ID Cordero Member ID Guarantor Name 08/30/2025 1 MEDICARE-ID (MEDICARE) Eloy Perkins [id number] Eloy Perkins 08/30/2025 2 MEDICAID-[facility] CHOICES - FFS/TRADITI ONAL [place] [id number] Eloy Perkins Notes Date Note Type Note Provider Name and Address Organization Details Recorded Time 08/30/2025 text/html Patient presents for hospital follow up. She was recently sent to ER for right eye drooping and was transferred to [facility] and admitted x 3 days. She [...] little more tired today. Marly Kumar APRN [address] [place] [address], [place], [address], [facility] [employer] 08/30/2025 13:02:45 OBGyn Episode No OBEpisode recorded.
--- OUTSIDE RECORDS SUMMARY | 2025-10-28 10:32 | XMS_ITS | Encounter Summary ---
Author Organization [facility] Address [address] [place] [address] Care Team Providers Care Embedded Linux Developer Name Role Phone Marly Kumar SHAKIRA Primary Care Provider [phone] Encounter Details Date Type Department Care Team [...] Description 10/31/2025 9:00 AM EST Office Visit [facility] CARDIOLOGY [address] [place] [address] Nereida Ambrose APRN [address] [place] [address] 11/13/2025 2:30 PM EST Office Visit [facility] NEUROLOGY [address] [facility] [address] [place], [place] [id number] Camille Spann APRN [address] [facility] [address] [address] 02/09/2026 2:15 PM EDT Office Visit [facility] GASTROENTEROLOGY [address] [facility] [address] [place] [phone] Shahla Troy PALienC [address] [facility] [address] [place], [place] [address] documented as of this encounter Visit Diagnoses Not on filedocumented in this encounter Care Teams Embedded Linux Developer Relationship Specialty Start Date End Date Marly Kumar APRN [address] [place], [place] [id number] PCP - General Family Medicine 07/06/24 documented as of this encounter
--- OUTSIDE RECORDS SUMMARY | 2025-10-28 10:32 | XMS_ITS | Encounter Summary ---
Author Organization [employer] ([place], [place], [place], [place], [place]) Address [address] [place] [address] Care Team Providers Care Ballistic Expert Name Role Phone Marly Kumar PRIOR AUTHORIZATION TECHNICIAN Primary Care Provider [phone] Encounter Details Date Type Department Care Team (Late st Contact Info) Description 07/26/2020 Transcribed Document [facility] [place] [facility] [place] [address] ProviderMiya MD [address] [place] [address] Social History Tobacco Use Types Packs/Day [...] the upper and lower extremities. COORDINATION: Normal tbsydf-oz-enho. IMPRESSION: Ms. Perkins has a long history [...] mg IV for repetitive or prolonged seizures. /[id number] Yadi Duong MD TAF/AQ / TAF / MODL Electronically signed by Interface, [facility] Conversion Marker Maker Cerner at 02/19/2023 6:42 PM CDT documented in this encounter Plan of Treatment Not on file documented as of this encounter Visit Diagnoses Not on filedocumented in this encounter Care Teams Ballistic Expert Relationship Specialty Start Date End Date Marly Kumar, DUNG [address] [place] [address] PCP - General Nurse Practitioner 09/22/24 documented as of this encounter
--- OUTSIDE RECORDS SUMMARY | 2025-10-28 10:32 | XMS_ITS | Encounter Summary ---
[facility] Address [address] [place] [address] Care Team Providers Care Body And Frame Technician Name Role Phone Marly Kumar SHAKIRA Primary Care Provider [phone] Reason for Visit * Reason Onset Date Comments Marie Hudson MA- CALL BACK 09/25/2025 Encounter Details Date Type Department Care Team (Late st Contact Info) Description 09/25/[address] [facility] CARDIOLOGY [address] [place] [address] Marie Hudson MA Gilvin, Jennifer, MA- [...] Relationship: Emergency Contact Best call back number: [phone] What is the best time to reach [...] [facility] [address] [place] [phone] Nereida Ambrose, DIVE SUPERVISOR [address] [place] [address] 11/13/2025 2:30 PM EST Office Visit [facility] NEUROLOGY [address] [facility] [address] [place], [place] [address] Camille Spann, DIVE SUPERVISOR [address] [facility] [address] [place], [place] [id number] 02/09/2026 2:15 PM EDT Office Visit [facility] GASTROENTEROLOGY [address] [facility] [address] [place] [phone] Shahla Troy PAMireille [address] [facility] [address] [place], [place] [address] documented as of this encounter Visit Diagnoses Not on filedocumented in this encounter Care Teams Body And Frame Technician Relationship Specialty Start Date End Date Marly Kumar, DIVE SUPERVISOR [address] [place] [address] PCP - General Family Medicine 07/06/24 documented as of this encounter
--- OUTSIDE RECORDS SUMMARY | 2025-10-28 10:33 | XMS_ITS | Encounter Summary ---
Author Organization [facility] Address [address] [place] [address] Care Team Providers Care Water Resource Engineering Specialist Name Role Phone Marly Kumar SHAKIRA Primary Care Provider [phone] Reason for Visit * Reason Onset Date Comments - CALL BACK 09/26/2025 Encounter Details Date Type Department Care Team (Late st Contact Info) Description 09/26/2025 Telephone [facility] CARDIOLOGY [address] [address] Justin Moses MD [address] [facility] [address] [place] [address] - CALL BACK Social History Tobacco Use [...] Relationship: Emergency Contact Best call back number: [phone] What is the best time to reach [...] Description 10/31/2025 9:00 AM EST Office Visit [facility] CARDIOLOGY [address] [place] [address] Nereida Ambrose APRN [address] [place] [address] 11/13/2025 2:30 PM EST Office Visit [facility] NEUROLOGY [facility] [address] [place] [address] Camille Spann APRN [address] [facility] [address] [place], [place] [phone] 02/09/2026 2:15 PM EDT Office Visit [facility] GASTROENTEROLOGY [address] [facility] [address] [place] [phone] Shahla Troy PALienC [address] [facility] [address] [place], [place] [phone] documented as of this encounter Visit Diagnoses Not on filedocumented in this encounter Care Teams Water Resource Engineering Specialist Relationship Specialty Start Date End Date Marly Kumar APRN [address] [place] [address] PCP - General Family Medicine 07/06/24 documented as of this encounter
--- OUTSIDE RECORDS SUMMARY | 2025-10-28 10:33 | XMS_ITS | Encounter Summary ---
Author Organization [employer] ([place], [place], [place], [place], [place]) Address [address] [place] [address] Care Team Providers Care Gathering Machine Feeder Name Role Phone Marly Kumar HOSPITAL CLINIC ASSISTANT Primary Care Provider [phone] Encounter Details Date Type Department Care Team (Late st Contact Info) Description 07/28/2020 Transcribed Document [facility] [place] [address] ProviderMiya MD [address] [place] [address] Social History Tobacco Use Types Packs/Day [...] Miya ProviderMD - 07/28/2020 10:08 AM CDT [address] [place] [address] Patient Copy Patient Information: Name: RENNY VILLA Current Date: 07/28/2020 10:08:21 : 1955 Patient Address: [address] [facility] [address] Patient Attending Physician: YADI SIDDIQI MD-LALITO Primary Care Provider: MARIE OMER (REF), ALEJA Primary Care Provider Discharge Diagnosis: Abnormal electroencephalogram (EEG); Localization-related (focal) (partial) idiopathic epilepsy and epileptic syndromes with seizures of localized onset, intractable, without status epilepticus Comment: Follow-up Instructions: With: Address: When: YADI SIDDIQI [address] [place] [address], [address] [place] [address] Business (1) Within 6 months Discharge Instructions: [...] Oral Every Day. fluticasone nasal (Flonase) 1 [place](s) Nostrils Both Every Day. furosemide (Lasix [...] Assistance with quitting is available by contacting 1-424-LJIF-NOW. This is a free resource providing counseling, [...] Be sure to sign up for the [facility] patient portal, which gives you 25/05 access to your medical information ??? including these discharge instructions ??? using your computer, smartphone, or tablet. Just go to [employer] to get started. Questions? Call . [facility] would like to thank you for allowing us to assist you with your healthcare needs. DAISY Richter JACKQUELINE F, (or off premise service representative) have received the above patient education materials/instructions and have verbalized understanding: Patient Signature _ Date/Time Patient Shoe Folder Signature (if needed) Date/Time Clinician/Hospital Shoe Folder Signature (if needed) Date/Time documented in this encounter Plan of Treatment Not on file documented as of this encounter Visit Diagnoses Not on filedocumented in this encounter Care Teams Gathering Machine Feeder Relationship Specialty Start Date End Date Marly Kumar, DUNG [address] [place] [address] PCP - General Nurse Practitioner 09/22/24 documented as of this encounter
--- OUTSIDE RECORDS SUMMARY | 2025-10-28 10:33 | XMS_ITS | Continuity of Care Document ---
Author Organization [place] [employer], [facility] Address [address] [place] [address] Care Team Providers Care Anthropology Instructor Name Role Phone KIMBERLY SUMMERS Community Health Worker Assessment No assessment recorded. Plan of Treatment Reminders Order Date Submit Date Provider Last Modified By Organization Details Last Modified Time Details Appointments TRANSP ORTATI ON 2025 01:30P M Transporter Not available Not available Not available FOLLOW UP 30 2025 02:00P M José, Marly Not available Not available Not available Lab rapid influe nza virus A + B and SARS CoV + SARS CoV 2 Ag panel, [place], upper respir atory specim en 2024 025 [email or web address] [facility], [address] [place] [address], [phone], 08/08/2025 12:37:11 Referral None record ed. Procedures None record ed. Surgeries None record ed. Imaging XR, chest, 2 view 2024 025 [email or web address] [facility], [address] [place] [address], [id number], 08/10/2025 10:51:08 Medication Orders doxycy wong hyclat e 100 mg capsul e 2024 025 ERICH [facility], [address] [place] [address], [id number], 08/25/2025 05:01:24 predni sone 20 mg tablet 2024 [facility], [address] [place] [address], [address], 08/18/2025 05:01:56 guaife nesin ER 600 mg tablet , extend ed releas e 12 hr 2024 [facility], [address] [place] [address], [id number], 08/30/2025 13:29:42 Patient TargetsNo targets recorded. Patient InstructionsNo instructions recorded. Reason for Referral None Reported. Results Created Date Observation Date Name Description Value Unit Range Abnormal Flag Note LastModifiedBy Organization Detail LastModifiedTime 08/08/2008/08/2025 rapid influ alexandria virus A + B and SARS CoV + SARS CoV 2 Ag panel , [place], upper respi rator y speci men SARS-CoV2 negati ve Not Available [address], [address], 08/08/2025 09:12:04 08/08/2008/08/2025 rapid influ alexandria virus A + B and SARS CoV + SARS CoV 2 Ag panel , [place], upper respi rator y speci men Flu A negati ve Not Available [address], [address], 08/08/2025 09:12:04 08/08/2008/08/2025 rapid influ alexandria virus A + B and SARS CoV + SARS CoV 2 Ag panel , [place], upper respi rator y speci men Flu B negati ve Not Available [address], [address], 08/08/2025 09:12:04 08/08/20 XR, chest , 2 view No observ ation record ed. [email or web address] [address], [address], 08/08/2025 16:34:02 08/23/20 25 08/23/2025 CT, head + brain , w/o contr ast No observ ation record ed. [address], [place], [address], 08/25/2025 09:30:42 08/23/20 25 08/23/2025 CT, angio gram, neck, w/wo contr ast No observ ation record ed. [address], [place], [address], 08/25/2025 09:30:26 08/23/2008/23/2025 CT, angio gram, head, w/wo contr ast No observ ation record ed. [place] [address], [place], [address], 08/25/2025 09:30:08 08/24/20 25 08/23/2025 elect rocar diogr am, routi ne ECG, 12 leads min No observ ation record ed. [address], [place], [address], 08/25/2025 09:27:12 08/24/20 25 08/24/2025 US, doppl er echoc ardio gram No observ ation record ed. [address], [place], [address], 08/25/2025 09:24:11 10/18/20 25 10/17/2025 MAMMO , diagn ostic , digit al, unila teral No observ ation record ed. [email or web address] [facility] [address] [place], [address], 10/19/2025 14:44:04 10/19/20 25 10/17/2025 MAMMO , diagn ostic , digit al, unila teral No observ ation record ed. [email or web address] [facility] [address] , [place], [place], [address], 10/19/2025 14:44:04 10/24/20 25 10/24/2025 imagi ng/di agnos tic resul t No observ ation record ed. [address], [place], [address], 10/25/2025 09:49:25 10/24/20 25 10/24/2025 imagi ng/di agnos tic resul t No observ ation record ed. [address], [place], [address], 10/25/2025 09:49:25 Result Notes None recorded. Problems Name Problem SNOMED Code Status Onset Date Resolution Date Notes Provider Name and Address Organization Details Recorded Time Acute on chronic systolic heart failure 455480765 Completed 201611/25/2016 Not Available [facility] 2 21:36:04 Bronchop neumonia 988891613 Completed 201601/19/2017 Problem Code: J18.0; Problem Code Type: ICD-10; Not Available [facility] 21:36:04 Congesti ve heart failure 10681856 Completed 201611/25/2016 Problem Code: 428.0; Problem Code Type: ICD-9; Not Available [facility] 2 21:36:05 Pneumoco ccal pneumoni a 559787181 Completed 201601/19/2017 Problem Code: 481; Problem Code Type: ICD-9; Not Available [facility] 21:36:05 Bronchop neumonia 515430921 Completed 201601/24/2017 Problem Code: J18.0; Problem Code Type: ICD-10; Not Available [facility] 21:36:04 Pneumoco ccal pneumoni a 764905671 Completed 201601/24/2017 Problem Code: 481; Problem Code Type: ICD-9; Not Available [facility] 2 21:36:05 Pain of left wrist 93646831328 9102 Completed 201604/25/2017 Problem Code: M25.532; Problem Code Type: ICD-10; Not Available [facility] 2 21:36:04 Localize d edema 916911541 Completed 201604/25/2017 Problem Code: R60.0; Problem Code Type: ICD-10; Not Available [facility] 2 21:36:05 Pain of joint of wrist 209027236 Completed 201604/25/2017 Problem Code: 719.43; Problem Code Type: ICD-9; Not Available [facility] 2 21:36:05 Edema 118065036 Completed 201604/25/2017 Problem Code: 782.3; Problem Code Type: ICD-9; Not Available [facility] 2 21:36:05 Hyperten sive disorder 40981370 Completed 202209/27/2025 Marly Kumar APRN [address] [place] [address], [address] , [employer] 5 08:49:10 Hyperlip idemia 15306211 Completed 202203/29/2025 Marly Kumar APRN [address] [place] [address], [address] , [employer] 5 09:38:16 Chronic obstruct mark pulmonar y disease 74447944 Active 2022 FREDDY GARCIA [address], [address] , [employer] 3 14:59:59 Hypothyr oidism 54837211 Active 2022 FREDDY GARCIA [address], [address] , [employer] 3 15:01:45 Monitori ng of pacemake r 10843300 Active 2022 FREDDY GARCIA [address], [address] , [employer] 3 15:22:52 Seizure disorder 593074299 Active 2022 Marly Kumar APRN [address] [place] [address], [address] , [place] [employer] 4 18:02:53 Memory impairme nt 394476582 Active 2022 Marly Kumar APRN [address] [place] [address], [address] , [place] [employer] 4 18:02:44 Seasonal allergy 603564836 Active 2022 Marly Kumar [employer] [address] [place] [address], [address] , [place] [employer] 4 18:02:51 Nausea 055819215 Completed 202205/26/2024 Marly Kumar [employer] [address] [place] [address], [address] , [employer] 5 08:49:37 Mixed hyperlip idemia 161796726 Active 2022 Marly Kumar [employer] [address] [place] [address], [address] , [place] [employer] 4 18:02:46 Anxiety disorder 892296479 Completed 202205/26/2024 Marly aHrristk [employer]ER [address] [place] [address], [address] , [employer] 4 12:06:47 Insomnia 420460299 Active 2022 Marly Harristk [employer] [address] [place] [address], [address] , [employer] 4 18:02:40 Hypomagn esemia 515675123 Completed 202205/26/2024 Marly Kumar APRN [address] [place] [address], [address] [place] [address] , [place] [employer] 5 08:53:13 Gastroes ophageal reflux disease without esophagi tis 820417766 Active 2022 Marly Kumar APRN [address] [place] [address], [address] , [place] [employer] 4 18:02:34 Hypokale caitlyn 07701333 Completed 202205/26/2024 Marly Kumar [employer] [address] [place] [address], [address] [place] [address] , [employer] 5 09:20:02 Candidia sis of skin 26508601 Completed 202205/26/2024 Marly Kumar [employer] [address] [place] [address], [address] [place] [address] , [employer] 5 14:39:29 Wound of skin 401086698 Completed 202209/27/2025 Marly Kumar [employer] [address] [place] [address], [address] [place] [address] , [place] [employer] 5 08:49:19 Localize d swelling of head 20936567952 116545 Completed 202305/26/2024 Marly Kumar [employer] [address] [place] [address], [address] [place] [address] , [employer] 4 18:02:42 Chronic low back pain 848528896 Active 2023 Marly Kumar [employer] [address] [place] [address], [address] , [place] [employer] 4 18:02:29 Abnormal gait due to muscle weakness 716740693 Completed 202305/26/2024 Marly Harristk [employer] [address] [place] [address], [address] , [place] [employer] 4 12:06:44 Diarrhea 42526977 Completed 202305/26/2024 Marly Kumar APRN [address] [place] [address], [address] , [place] [employer] 4 18:02:32 Numbness of hand 154426982 Completed 202309/08/2024 Marly Kumar APRN [address] [place] [address], [address] , [place] [employer] 4 09:59:28 Peripher al demyelin ating neuropat hy 00327239 Active 2023 Marly Kumar APRN [address] [place] [address], [address] , [employer] 4 09:59:26 Chronic back pain 530900890 Active 2023 Marly Kumar APRN [address] [place] [address], [address] , [employer] 5 09:19:42 Osteopor osis 23360326 Active 2023 Marly Kumar APRN [address] [place] [address], [address] [place] [address] , [employer] 5 09:19:56 Hypokale caitlyn 52021526 Completed 202312/07/2024 Marly Kumar APRN [address] [place] [address], [address] , [employer] 5 09:20:02 Urinary incontin ence 421698013 Active 2023 Marly Kumar APRN [address] [place] [address], [address] , [employer] 5 09:19:58 Essentia l hyperten patricia 14739694 Active 2024 Marly HarrisyVLADIMIRN [address] [place] [address], [address] , [employer] 5 09:19:43 Pain of left knee joint 21832569050 4107 Completed 202401/23/2025 Marly Harristk [employer] [address] [place] [address], [address] [place] [address] , [employer] 11:21:21 Restless legs syndrome 68812454 Active 2024 Marly Kumar APRN [address] [place] [address], [address] [place] [address] , [place] [employer] 11:21:23 Bilatera l lower limb edema 055258668 Completed 202401/23/2025 Marly Kumar APRN [address] [place] [address], [address] [place] [address] , [place] [employer] 11:21:15 Pain of bilatera l hands 14943135497 906906 Completed 202401/23/2025 Marly Kumar APRN [address] [place] [address], [address] [place] [address] , [employer] 11:21:18 Candidia sis of skin 80969471 Completed 202402/17/2025 Marly Kumar APRN [address] [place] [address], [address] [place] [address] , [place] [employer] 14:39:28 Cough 14350253 Completed 202409/27/2025 Marly Kumar APRN [address] [place] [address], [address] [place] [address] , [employer] 08:49:24 Macromas tia 792905211 Completed 202409/27/2025 Marly Kumar APRN [address] [place] [address], [address] [place] [address] , [place] [employer] 08:49:22 Mammogra phy abnormal 476407836 Active 2024 Marly Kumar APRN [address] [place] [address], [address] [place] [address] , [place] [employer] 09:14:58 Pneumoni a 388722832 Completed 202403/29/2025 Marly Kumar APRN [address] [place] [address], [address] , [place] [employer] 09:02:21 Acute cough Completed 202405/10/2025 Marly Kumar APRN [address] [place] [address], [address] , [place] [employer] 10:28:29 Acute exacerba tion of chronic obstruct mark pulmonar y disease 836613427 Completed 202405/10/2025 Marly Kumar APRN [address] [place] [address], [address] , [employer] 10:28:27 Nausea 236258884 Completed 202409/27/2025 Marly Kumar APRN [address] [place] [address], [address] , [employer] 08:49:37 Quantity of physiolo gic substanc e outside referenc e range 690263805 Completed 202408/30/2025 Marly Kumar APRN [address] [place] [address], [address] , [employer] 13:00:44 Hypomagn esemia 619562230 Active 2024 Marly Kumar APRN [address] [place] [address], [address] , [employer] 08:53:13 Fatigue 06067050 Completed 202408/30/2025 Marly Kumar APRN [address] [place] [address], [address] , [employer] 13:00:51 Cobalami n deficien cy 720065975 Active 2024 Marly Kumar APRN [address] [place] [address], [address] , [employer] 13:00:55 Pain 52376153 Completed 202409/27/2025 Marly Kumar APRN [address] [place] [address], [address] , [employer] 08:49:38 Pain in bilatera l feet 00919285107 362839 Active 2024 Marly Kumar APRN [address] [place] [address], [address] , [employer] 13:00:47 Paresthe herson of foot 930618895 Active 2024 Marly Kumar APRN [address] [place] [address], [address] , [employer] 13:00:45 Anxiety 12501219 Active 2024 Marly Kumar APRN [address] [place] [address], [address] , [employer] 08:49:30 Fever 948736110 Completed 202408/30/2025 Marly Kumar APRN [address] [place] [address], [address] , [employer] 13:00:50 Vitamin D deficien 08050772 Active 2024 Marly Kumar APRN [address] [place] [address], [address] , [employer] 10:35:10 Problem Notes None recorded. Procedures Surgical History Date Name Laterality Status Provider Name and Address Organization Details Recorded Time 11/02/19 23 Most Recent Mammogram completed Ruth Zhao [employer] 11/26/2023 13:21:36 10/29/20 16 cholecystectomy completed Not Available [facility] 07/08/2022 22:56:19 10/29/20 16 hernia repair completed Not Available [facility] 07/08/2022 22:56:20 10/29/20 16 hysterectomy completed Not Available [facility] 07/08/2022 22:56:21 lumpectomy of right breast completed ALBERTO [employer] 08/19/2023 14:52:33 Imaging Results None recorded. Procedure Notes None recorded. Medical Equipment None Reported. Allergies Allergen ID Allergen Name Allergen Category Reaction Reaction Severity Criticality Documentation Date Start Date Code Code System Note Provider Name and Address Organization Details Recorded Time 16095 Product containin g penicilli n (product) medicatio n Not available Not available Not available 07/08/2022 45243 8001 SNOMED ALBERTO [facility], [employer] 3 14:43:11 91817 Substance with sulfonami de structure and antibacte rial mechanism of action (substanc e) medicatio n Not available Not available Not available 07/08/2022 77686 8003 SNOMED ALBERTO [facility], [employer] 14:43:16 81687 Fosamax medicatio n Not available Not available Not available 07/08/2022 57229 5 RxNorm Not Available [facility] 2 22:55:02 65500 tamsulosi n medicatio n other Not available low 09/25/20252022 24703 RxNorm Sick to stoma ch Not Available erich [employer] 5 12:37:33 40335 alendroni c acid Not available Not available Not available Not available 09/25/2025 40930 3 RxNorm unrec ogniz ed react ion (text : Adver se react ion to subst ance, code: 39330 0009) (from exter nal sourc e) Not Available erich - [employer] - prod 5 12:37:42 48515 gabapenti n medicatio n Not available Not available Not available 09/25/20252020 45235 RxNorm unrec ogniz ed react ion (text : Irrit abili ty, code: 74190 6000) (from exter nal sourc e) Not Available erich [employer] 5 12:37:54 34678 alendrona te sodium medicatio n Not available Not available low 09/25/20252016 08256 2 RxNorm Not Available erich - External [...] tablet at night to assist with sleep. 11/07 /2024 completed Not Available Not Available Not Available [...] Updated DateTime 5 152.4 cm 32.8 kg/m2 23097.5 2 g 97.3 [degF] 72 /min 95 % 135/76 mm[Hg] Ruth Zhao [employer]. 09:11:02 Social History Question Answer Notes LastModified by Organizat ion Details LastModified Time Tobacco Smoking Status Former Smoker ALBERTO mayorga [employer] 08/19/2023 14:46:52 Do You Have An Advance Directive? No [email or web address] Information n ot available 08/19/2023 Is Your Home Air Conditioned? Yes Information not available 08/19/2023 Are You Blind Or Do You Have Difficulty Seeing? Yes [email or web address] Information not available 12/23/2023 Are You A Caregiver? No [email or web address] Information not available 06/23/2024 In The 14 [...] To Be High Risk For COVID-19? No [email or web address] Information not available 08/19/2023 Are You Deaf Or Do You Have Serious Difficulty Hearing? Yes [email or web address] Information not available 12/23/2023 What Type Of Diet Are You Following? REGULAR [email or web address] Information n ot available 08/19/2023 Have Your Transportation Difficulties Led To Difficulty In Accessing Medical Care? Yes Information not available 08/02/2025 What Is The Highest Grade Or Level Of School You Have Completed Or The Highest Degree You Have Received? BF59072-6 [email or web address] Information not available 08/02/2025 How Many Days Of Moderate To Strenuous Exercise, Like A Brisk Walk, Did You Do In The Last 7 Days? 5 [email or web address] Information not available 08/02/2025 Have There Been Any Changes To Your Family Or Social Situation? No [email or web address] Information not available 08/19/2023 When Did You Quit Smoking? 16+yearssinc elastcigaret te [email or web address] Information not available 08/19/2023 Which Of Your Hands Is Dominant? Right [email or web address] Information not available 08/02/2025 Do You Engage In Moderate/heavy Exercise (e.g. Brisk Walk, Jogging, Strength Training, Etc)? Yes [email or web address] Information not available 08/02/2025 Do You Have A Medical Power Of Estate And Trust Tax Principal? No [email or web address] Information not available 08/19/2023 What Was The Date Of Your Most Recent Tobacco Screening? 09/27/2025 [email or web address] Information n ot available 09/27/2025 What Is Your Current Pack Years? 10-packyea rs [email or web address] Information not available 08/19/2023 Do You Have Any Pets? Yes [email or web address] Information not available 08/19/2023 What Is Your Relationship Status? [email or web address] Information not available 08/19/2023 Do You Wear A Seatbelt When Driving Or As A Passenger? Yes [email or web address] Information not available 08/02/2025 Do You Use Your Seat Belt Or Car Seat Routinely? Yes Information not available 08/19/2023 Are You Sexually Active? Yes [email or web address] Information not available 08/02/2025 Do You Have Smoke And Carbon Monoxide Detectors In Your Home? Yes [email or web address] Information not available 08/19/2023 At What Age Did You Start Smoking Tobacco? 11 [email or web address] Information not available 08/02/2025 Are You Passively Exposed To Smoke? Yes [email or web address] Information no t available 08/19/2023 Are There Any Smokers In Your House? Yes [email or web address] Information not available 08/19/2023 How Much Tobacco Do You Smoke? No [email or web address] Information not available 08/02/2025 Do You Participate In Social Media? No [email or web address] Information not available 06/23/2024 Has Tobacco Cessation Counseling Been Provided? No Information not available 08/19/2023 How Many Years Have You Smoked Tobacco? 40 [email or web address] Information not available 08/02/2025 Have You Recently Traveled Abroad? No [email or web address] Information not available 08/19/2023 Do You Have Difficulty Walking Or Climbing Stairs? Yes Information not available 08/19/2023 Are You Currently In School? No [email or web address] Information not available 08/19/2023 Do You Feel Safe In Your Home? Yes [email or web address] Information not available 08/02/2025 Do You Have Any Dietary Restrictions? No [email or web address] Information not available 06/23/2024 Sex: Unknown Functional Status Question Answer Note LastModified by Organizat ion Details LastModified Time Do you use any illicit or recreational drugs? No [email or web address] Information not available 08/19/2023 Do you or have you ever used any other forms of tobacco or nicotine? No [email or web address] Information not available 08/19/2023 What is your level of alcohol consumption? None [email or web address] Information not available 08/19/2023 Are you currently employed? No [email or web address] Information not available 08/19/2023 Do you have transportation difficulties? Yes unable to drive herself [email or web address] Information not available 08/19/2023 Are you able to walk independently without assistance or assistive devices? YESWOREST [email or web address] Information not available 08/19/2023 Do you have difficulty doing errands alone? Yes izeyumdwh245 Information not available 12/23/2023 Are you able to care for yourself independently? Yes Information not available 08/19/2023 Do you have difficulty dressing, bathing, grooming, or toileting? Yes [email or web address] Information not available 12/23/2023 Mental Status Question Answer Note LastModified by Organizat ion Details LastModified Time Do you feel stressed (tense, restless, nervous, or anxious, or unable to sleep at night)? CX04280-7 [email or web address] Information not available 08/02/2025 Do you have difficulty concentrating, remembering or making decisions? Yes [email or web address] Information no t available 12/23/2023 Family History Relationship Description Onset Age of this Age Resolved Age Notes LastModified by Organization Details LastModified Time Mother Family history of Hypertension [email or web address] Not available 08/19/2023 14:44:48 Mother Family history of congestive heart failure [email or web address] Not available 14:44:53 Mother Family history of Myocardial infarction [email or web address] Not available 14:44:57 Mother Diabetes mellitus [email or web address] Not available 14:45:07 Mother Parkinson's disease [email or web address] Not available 14:45:25 Medical History Condition Response [...] trivalent, PF 4 completed Marly Kumar APRN [address] [place] [address], [address], [employer] 09/09/2024 11:00:39 RSV, recombinant, protein subunit RSVpreF, adjuvant reconstituted, 0.5 mL, PF 4 completed Marly Kumar APRN [address] [place] [address], [address], [employer] 09/09/2024 11:00:39 zoster recombinant 4 completed Marly Kumar APRN [address] [place] [address], [address], [employer] 09/26/2024 17:21:28 zoster recombinant 5 completed Marly Kumar APRN [address] [place] [address], [address], [employer] 12/28/2024 12:12:07 Tdap 5 completed Codie Shah [facility], [employer] 05/10/2025 10:57:25 Influenza, high-dose, trivalent, PF 5 completed Codie Shah null, [employer] 08/02/2025 14:54:57 COVID-19, mRNA, LNP-S, PF, kaz-sucrose, 30 mcg/0.3 mL 5 completed Codie Shah null, [employer] 08/02/2025 14:54:58 COVID-19, mRNA, LNP-S, PF, 100 mcg/0.5mL dose or 50 mcg/0.25mL dose 1 completed ALBERTO mayorga, [employer] 08/19/2023 14:43:02 COVID-19, mRNA, LNP-S, PF, 30 mcg/0.3 mL dose 1 completed ALBERTO mayorga, [employer] 08/19/2023 14:43:02 COVID-19, mRNA, LNP-S, PF, 30 mcg/0.3 mL dose 1 completed ALBERTO mayorga, [employer] 08/19/2023 14:43:02 Influenza, split virus, trivalent, preservative 7 completed ALBERTOTIM mayorga, [employer] 08/19/2023 14:43:02 Influenza, split virus, trivalent, preservative 2 completed ALBERTOTIM ROCK null, [employer] 08/19/2023 14:43:02 Influenza, split virus, trivalent, preservative 0 completed ALBERTO mayorga, [employer] 08/19/2023 14:43:02 Influenza, split virus, trivalent, PF 4 completed ALBERTO ROCK [employer], [employer] 08/19/2023 14:43:02 Influenza, split virus, quadrivalent, PF 2 completed ALBERTO ROCK [employer], [employer] 08/19/2023 14:43:02 Pneumococcal conjugate PCV20, polysaccharide CEJ603 conjugate, adjuvant, PF 4 completed Abi Vazquez [facility], [employer] 05/26/2024 11:20:59 Past Encounters Encounter ID Performer Location Encounter Start Date Encounter Closed Date Diagnosis/Indication Diagnosis SNOMED-CT Code Diagnosis ICD10 Code Diagnosis IMO Codes Diagnosis Note [id number] Marly José, [address] [address] 08/02/2025 14:08:01 08/02/2025 15:01:49 Anxiety 22216207 F41.9 48941 Anxiety disorder 4122566 06 F41.9 Immunization due 2910636 08 Z23 1536938 [id number] Pam Ismael, [address] [address] 08/08/2025 08:32:18 08/08/2025 10:15:24 Fever 178325632 R50.9 503053 Dyspnea 791450704 R06.02 42406 Pneumonia 045710846 J18. 9 0087976490 Body mass index 30+ - obesity 425455804 Z68.32 [id number] Health Concerns Section Related Observation LastModified by Organization Detai ls LastModified Time None Recorded Concern Status LastModified by Organization Details LastModified Time None Recorded Payers Encounter Date Sequence Insurance Name Policy Number Policy Cordero Covered Member ID Cordero Member ID Guarantor Name 08/08/2025 1 [place] Eloy Perkins [id number] Eloy Perkins 08/08/2025 2 MEDICAID-[facility] CHOICES - FFS/TRADITI ONAL [place] [id number] Eloy Perkins Notes Date Note Type Note Provider Name and Address Organization Details Recorded Time 08/08/2025 text/html pt here today with c/o [...] deep breaths. return for worsening symptoms. Pam Guevara, STRAP STITCHER [address] [facility], [place], [address], [facility] [employer] 08/08/2025 10:37:31 OBGyn Episode No OBEpisode recorded.
--- OUTSIDE RECORDS SUMMARY | 2025-10-28 10:33 | XMS_ITS | Encounter Summary ---
Author Organization [employer] ([place], [place], [place], [place], [place]) Address [address] [place] [address] Care Team Providers Care Condenser Tube Tender Name Role Phone Marly Kumar SHUTTLE THREADER Primary Care Provider [phone] Encounter Details Date Type Department Care Team (Late st Contact Info) Description 07/28/2020 Transcribed Document [facility] [place] [facility] [place] [address] ProviderMiya MD [address] [place] [address] Social History Tobacco Use Types [...] on filedocumented in this encounter Care Teams Condenser Tube Tender Relationship Specialty Start Date End Date Marly Kumar NP [address] [place] [address] PCP - General Nurse Practitioner 09/22/24 documented as of this encounter
--- OUTSIDE RECORDS SUMMARY | 2025-10-28 10:33 | XMS_ITS | Clinical Summary ---
Author Organization [facility] Address [address] [place] [address] Care Team Providers Care Linen Clerk Name Role Phone Marly Kumar SHAKIRA Primary Care Provider [phone] Allergies Active Allergy Reactions Criticality Noted Date [...] (Two) Times a Day. Active nystatin (MYCOSTATIN) 514260 UNIT/GM cream Apply 2 applications topically daily [...] Orders: Basic Metabolic Panel; Future Case Request Parts Analyst: Left Heart Cath with Cors and SVG's, Left Heart Cath CBC Auto Differential; Future Right facial numbness 08/24/2025 Has a tremor 07/06/2024 Hospital discharge follow-up 07/06/2024 Assessment & Plan (07/06/2024 11:01 AM EDT): [facility] 06/30/2024 ER records reviewed. Patient was dehydrated [...] EDT): Very labile blood pressure. Per Dr. Chritsiansen restart midodrine 2.5 mg twice daily to [...] Plan (09/11/2025 1:33 PM EST): {Hypertension is (optional):[id number]} Coronary artery disease invo lving [place] coronary artery of [place] heart without angina pectoris 02/25/2022 Assessment & Plan (09/11/2025 1:33 PM EST): {Coronary Artery Disease (OPTIONAL):51478} Orders: Basic Metabolic Panel; Future Case Request Parts Analyst: Left Heart Cath with Cors and SVG's, Left Heart Cath CBC Auto Differential; Future History of cardiac arrest 02/25/2022 Mixed hyperlipidemia 02/25/2022 Assessment & Plan (09/11/2025 1:33 PM EST): {Hyperlipidemia A/P Block (Optional):[id number]} Seizure disorder 02/25/2022 Localized edema 02/24/2017 Overview [...] Description 10/10/2025 2:15 PM EST Office Visit [facility] [address] [place] [address] Shahla Troy PA-C Gastroesophageal reflux disease without esophagitis (Primary Dx); Esophageal dysphagia; Abnormal CT of the abdomen; Celiac artery stenosis; Superior mesenteric artery stenosis 10/10/2025 Telephone [facility] [address] [facility] [place] [address] Shahla Troy PA-C Med Management 10/10/2025 Travel 09/26/2025 Telephone [facility] CARDIOLOGY [address] [place] [phone]MARANO - CALL BACK 09/25/2025 Telephone [facility] CARDI[facility] [address] [address] Marie Hudson MA Gilvin, Jennifer, MA- CALL BACK 09/21/2025 10:52 AM EST - 09/21/2025 11:52 AM EST Surgery [facility] PAROLE AGENT [address] [place] [address] Justin Moses MD Left Heart Cath - Right radial access [09108 (CPT )] 09/21/2025 9:03 AM EST - 09/21/2025 3:54 PM EST Hospital Encounter [facility] CV[facility] [address] [place] [address] Justin Moses MD Coronary artery disease involving [place] coronary artery of [place] heart without angina pectoris; Precordial pain Discharge Disposition: Home or Self Care 09/21/2025 Travel 09/11/2025 2:00 PM EST Office Visit [facility] [address] [address] Nereida Ambrose APRN Automatic implantable cardiac defibrillator in situ [Z95.810] (Primary Dx); Coronary artery disease involving [place]aki[place] coronary artery of [place] heart without angina pectoris; Hypertension, essential; Mixed hyperlipidemia; Precordial pain; Bilateral lower extremity edema 09/11/2025 Travel 09/07/2025 Readmission Management [facility] [address] [place] [address] Renee Gage, TIM 08/29/2025 Telephone [facility] CARDI[facility] [address] [address] Dinorah Christiansen MD 08/29/2025 Readmission Management [facility] [address] [place] [address] Liliane Dwyer, TIM 08/28/2025 Telephone [facility] NEUROLOGY [address] [facility] [address] [place], [place] [id number] Camille Spann APRN CAROLINE MEYER, APRN- HOSPITAL F/U APPT 08/28/2025 Readmission Management [facility] [address] [facility] [place] [address] Rosita Jesus RN 08/24/2025 3:13 PM EDT - 08/27/2025 11:00 AM EDT Hospital Encounter [facility] 3F [address] [place] [address] Som Albert MD Varney, M Scott, DO Seibert-Jacobs, Christina Marie, MD Dysphagia, unspecified type (Primary Dx); Dysarthria; Chronic low back pain, unspecified back pain laterality, unspecified whether sciatica present; Has a tremor; Chronic obstructive pulmonary disease, unspecified COPD type; Congestive heart failure, unspecified HF chronicity, unspecified heart failure type Discharge Disposition: Home-Health Care Svc 08/24/2025 Travel 08/23/2025 Telephone [facility] CARDI[facility] [address] [address] Dinorah Christiansen MD 08/16/2025 Telephone [facility] [address] [address] Kailey Porras APRN from Last 3 Months Immunizations Immunization Administration Dates Next Due Arexvy (RSV, Adults 60+ yrs) 09/08/2024 Fluzone >6mos 08/11/2014 Fluzone (or Fluarix & Flulav al for VFC) >6mos 08/18/2022 Fluzone High-Dose 65+YRS 08/02/2025,09/08/2024 Influenza Seasonal Injectable 07/21/2012 ,10/30/2011,08/12/2010,02/01/ 2007 Pneumococcal Conjugate 20-Va lent (PCV20) 05/17/2024 Shingrix [...] Description 10/31/2025 9:00 AM EST Office Visit [facility] CARDI[facility] [address] [place] [address] Nereida Ambrose, BULLDOZER OPERATOR [address] [place] [address] 11/13/2025 2:30 PM EST Office Visit [facility] NEUR[facility]Y [address] [facility] [address] [place] [address] Camille Spann, BULLDOZER OPERATOR [address] [facility] [address] [address] 02/09/2026 2:15 PM EDT Office Visit [facility] [address] [facility] [address] [place] [phone] Shahla Troy, PALienC [address] [facility] [address] [place], [place] [id number] Health Maintenance Due Date Last Done Comments MAMMOGRAM 1993 COLOGUARD 1998 COLON CANCER SCREENING 5 YEA R SIGMOIDOSCOPY 1998 COLONOSCOPY 1998 COLORECTAL CANCER SCREENING 1998 CT COLONOGRAPHY 1998 FECAL OCCULT BLOOD TEST 1998 FIT Testing (1 year) 1998 ANNUAL WELLNESS VISIT 05/23/2024 HEPATITIS C SCREENING 05/23/2024 COVID-19 Vaccine (5 - Mixed Product risk 2023- season) 01/31/2026 08/02/2025, 09/09/2021, 12/05/2020, Additional history exists LIPID [...] 11:48 AM EST Coronary artery disease involving [place] coronary artery of [place] heart without angina pectoris Precordial pain SCANNED [...] of3 resultswithin the time period is included. [facility] ECG ORDERABLES Final Result * LEFT HEART [...] the right radial artery using standard 6 Lebanese catheters. Borderline lesion in the RCA. Additional [...] - 10.80 10*3/mm3 09/21/2025 10:23 AM EST [facility] RBC 3.83 3.77 - 5.28 10*6/mm3 09/21/2025 10:23 AM EST [facility] Hemoglobin 11.7(L) 12.0 - 15.9 g/dL 09/21/2025 10:23 AM EST [facility] Hematocrit 36.1 34.0 - 46.6 % 09/21/2025 10:23 AM EST [facility] MCV 94.3 79.0 - 97.0 fL 09/21/2025 10:23 AM EST [facility] MCH 30.5 26.6 - 33.0 pg 09/21/2025 10:23 AM EST [facility] MCHC 32.4 31.5 - 35.7 g/dL 09/21/2025 10:23 AM EST [facility] RDW 13.8 12.3 - 15.4 % 09/21/2025 10:23 AM EST [facility] RDW-SD 47.8 37.0 - 54.0 fl 09/21/2025 10:23 AM EST [facility] MPV 11.8 6.0 - 12.0 fL 09/21/2025 10:23 AM EST [facility] Platelets 189 140 - 450 10*3/mm3 09/21/2025 10:23 AM EST [facility] Blood Line / Unknown 09/21/2025 9: 34 AM EST 09/21/2025 10:17 AM EST Denise Pandey APRN LAB BLOOD ORDERABLES Final Result [facility]
[address] [place] [address], * (ABNORMAL) Hemoglobin A1c (09/21/2025 9:34 AM EST) Only the most recent of2 resultswithin the time period is included. Hemoglobin A1C 5.82(H) 4.80 - 5.60 % 09/21/2025 11:09 AM EST [facility] Blood Line / Unknown 09/21/2025 9: 34 AM EST 09/21/2025 10:17 AM EST Narrative [facility] - 09/21/2025 11:09 AM EST Hemoglobin A1C Ranges: Increased Risk for Diabetes 5.7% to 6.4% Diabetes >= 6.5% Diabetic Goal < 7.0% Denise Cleli ROSENBERG LAB BLOOD ORDERABLES Final Result [facility]
[address] [place] [address], * Lipid Panel (09/21/2025 9:34 AM EST) Only the most recent of2 resultswithin the time period is included. Total Cholesterol 94 0 - 200 mg/dL 09/21/2025 10:45 AM EST [facility] Triglycerides 77 0 - 150 mg/dL 09/21/2025 10:45 AM EST [facility] HDL Cholesterol 40 40 - 60 mg/dL 09/21/2025 10:45 AM EST [facility] LDL Cholesterol 38 0 - 100 mg/dL 09/21/2025 10:45 AM EST [facility] VLDL Cholesterol 16 5 - 40 mg/dL 09/21/2025 10:45 AM EST [facility] LDL/HDL Ratio 0.97 09/21/2025 10:45 AM EST [facility] Blood Line / Unknown 09/21/2025 9: 34 AM EST 09/21/2025 10:17 AM EST [facility] - 09/21/2025 10:45 AM EST Cholesterol [...] Pandey APRN LAB BLOOD ORDERABLES Final Result [facility]
[address] [place] [address], * Comprehensive Metabolic Panel (09/21/2025 9:34 AM EST) Only the most recent of3 resultswithin the time period is included. Glucose 89 65 - 99 mg/dL 09/21/2025 10:45 AM [facility] BUN 15.5 8.0 - 23.0 mg/dL 09/21/2025 10:45 AM EST [facility] Creatinine 0.82 0.57 - 1.00 mg/dL 09/21/2025 10:45 AM EST [facility] Sodium 138 136 - 145 mmol/L 09/21/2025 10:45 AM EST [facility] Potassium 4.4 3.5 - 5.2 mmol/L 09/21/2025 10:45 AM EST [facility] Chloride 106 98 - 107 mmol/L 09/21/2025 10:45 AM EST [facility] CO2 22.9 22.0 - 29.0 mmol/L 09/21/2025 10:45 AM EST [facility] Calcium 9.6 8.6 - 10.5 mg/dL 09/21/2025 10:45 AM EST [facility] Total Protein 6.6 6.0 - 8.5 g/dL 09/21/2025 10:45 AM EST [facility] Albumin 3.6 3.5 - 5.2 g/dL 09/21/2025 10:45 AM EST [facility] ALT (SGPT) 20 1 - 33 U/L 09/21/2025 10:45 AM EST [facility] AST (SGOT) 28 1 - 32 U/L 09/21/2025 10:45 AM EST [facility] Alkaline Phosphatase 58 39 - 117 U/L 09/21/2025 10:45 AM EST [facility] Total Bilirubin 0.5 0.0 - 1.2 mg/dL 09/21/2025 10:45 AM EST [facility] Globulin 3.0 gm/dL 09/21/2025 10:45 AM EST [facility] Comment:Calculated Result A/G Ratio 1.2 g/dL 09/21/2025 10:45 AM EST [facility] BUN/Creatinine Ratio 18.9 7.0 - 25.0 09/21/2025 10:45 AM EST [facility] Anion Gap 9.1 5.0 - 15.0 mmol/L 09/21/2025 10:45 AM EST [facility] eGFR 76.1 >60.0 mL/min/1.7 3 09/21/2025 10:45 AM EST [facility] Blood Line / Unknown 09/21/2025 9: 34 AM EST 09/21/2025 10:17 AM EST [facility] - 09/21/2025 10:45 AM EST GFR [...] race as a factor us Denise Pandey BULLDOZER OPERATOR LAB BLOOD ORDERABLES Final Result [facility]
[address] [place] [address], * MRI Brain Without Contrast (08/25/2025 1:20 PM EDT) Anatomical Region Laterality Modality Head, Neck N/A Magnetic Resonan ce 08/25/2025 8:00 PM EDT Impressions 08/25/2025 8:02 PM EDT Impression: Essentially normal noncontrast MRI of the brain. No evidence of recent infarct, hemorrhage, mass or mass effect. Electronically Signed: Garrett Robreson MD 08/25/2025 8:02 PM EDT Workstation ID: [id number] Narrative 08/25/2025 8:02 PM EDT MRI BRAIN [...] MD 08/25/2025 8:02 PM EDT Workstation ID: [id number] us Marisol Walker Celio ROSENBERG [facility] MRI ORDERABLES Final Re sult * ECHO COMPLETE W/ DOPPLER AND COLOR FLOW (08/25/2025 11:51 AM EDT) [facility] 2D AUTO EF 58.5 % LVIDd 3.9 [...] - 10.80 10*3/mm3 08/25/2025 9:45 AM EDT [facility] RBC 3.89 3.77 - 5.28 10*6/mm3 [facility] Hemoglobin 11.7(L) 12.0 - 15.9 g/dL 08/25/2025 9:45 AM EDT [facility] Hematocrit 36.0 34.0 - 46.6 % 08/25/2025 9:[facility] MCV 92.5 79.0 - 97.0 fL 08/25/2025 9:45 AM EDT [facility] MCH 30.1 26.6 - 33.0 pg 08/25/2025 9:45 [facility] MCHC 32.5 31.5 - 35.7 g/dL 08/25/2025 9:45 AM [facility] RDW 13.5 12.3 - 15.4 % 08/25/2025 9:45 AM [facility] RDW-SD 45.3 37.0 - 54.0 fl 08/25/2025 9:45 AM [facility] MPV 11.9 6.0 - 12.0 fL 08/25/2025 9:45 AM [facility] Platelets 145 140 - 450 10*3/mm3 08/25/2025 9:45 AM [facility] Neutrophil % 47.7 42.7 - 76.0 % 08/25/2025 9:45 AM [facility] Lymphocyte % 43.0 19.6 - 45.3 % 08/25/2025 9:45 [facility] Monocyte % 5.5 5.0 - 12.0 % 08/25/2025 9:45 [facility] Eosinophil % 2.8 0.3 - 6.2 % 08/25/2025 9:45 [facility] Basophil % 0.6 0.0 - 1.5 % 08/25/2025 9:45 [facility] Immature Grans % 0.4 0.0 - 0.5 % 08/25/2025 9:45 [facility] Neutrophils, Absolute 2.35 1.70 - 7.00 10*3/mm3 08/25/2025 9:45 AM EDT [facility] Lymphocytes, Absolute 2.12 0.70 - 3.10 10*3/mm3 08/25/2025 9:45 AM EDT [facility] Monocytes, Absolute 0.27 0.10 - 0.90 10*3/mm3 08/25/2025 9:45 AM EDT [facility] Eosinophils, Absolute 0.14 0.00 - 0.40 10*3/mm3 08/25/2025 9:45 AM EDT [facility] Basophils, Absolute 0.03 0.00 - 0.20 10*3/mm3 08/25/2025 9:45 AM EDT [facility] Immature Grans, Absolute 0.02 0.00 - 0.05 10*3/mm3 08/25/2025 9:45 AM EDT [facility] nRBC 0.0 0.0 - 0.2 /100 WBC 08/25/2025 9:45 AM EDT [facility] Blood Venipuncture / Unknown 08/25/2025 9:19 AM EDT 08/25/2025 9:32 AM EDT us Samantha Castillo DO LAB BLOOD ORDERABLES Final Res ult [facility]
[address] [place] [address], * Magnesium (08/25/2025 9:19 AM EDT) Only the most recent of2 resultswithin the time period is included. Magnesium 1.6 1.6 - 2.4 mg/dL 08/25/2025 10:23 AM EDT [facility] Blood Venipuncture / Unknown 08/25/2025 9:19 AM EDT 08/25/2025 9:31 AM EDT Samantha Castillo DO LAB BLOOD ORDERABLES Final Res ult Performing Organization Address [facility] Co de Phone Number [facility]
[address] [place] [address], * POC Glucose Once (08/24/2025 11:55 PM EDT) Only the most recent of2 resultswithin the time period is included. Glucose 119 70 - 130 mg/dL 08/24/2025 11:58 PM EDT [facility] Comment:Serial Number: [id number]: [id number] Blood 08/24/2025 11:5 5 PM EDT 08/24/2025 11:58 PM EDT Samantha Castillo DO POINT OF CARE TEST ORDERABLES Final Result Performing Organization Address [facility] de Phone Number [facility]
[address] [place] [address], * IMAGING SCANNED (08/24/2025) Only the most recent of3 resultswithin the time period is included. Anatomical Region Laterality Modality Radiographic Dayanara ging [facility] New Onbase IMG DIAGNOSTIC IMAGING ORDERA BLES Final [...] 2:02 AM EDT) Date Time Interrogation Session [id number] [facility] Type Interrogation Session Remote Scheduled [facility] Implantable Pulse Generator Soda Tester [employer] [facility] Implantable Pulse Generator Type ICD [facility] Implantable Pulse Generator Model [id number] Kan(TM) [facility] Implantable Pulse Generator Serial Number [id number] [facility] Implantable Pulse Generator Implant Date [id number] [facility] Battery Remaining Percentage 69.00 % [facility] Battery Remaining Longevity 74.0 mo [facility] Battery Voltage 2.980 [facility] Battery FLIGHT RADIO OPERATOR Trigger 2.620 [facility] Battery Status Middle of Service [facility] Capacitor Charge Time 8.600 [facility] Jus Statistic RA Percent Paced 17.00 [facility] Jus Statistic RV Percent Paced 1.00 [facility] Atrial Tachy Statistic AT/AF [place] Percent 0.00 [facility] Lead Channel RA Sensing Intrinsic Amplitude 3.000 [facility] Lead Channel Setting RA Sensing Sensitivity 0.30 [facility] Lead Channel RA Impedance Value 440 [facility] Lead Channel RA Pacing Threshold Amplitude 0.500 [facility] [email or web address] [facility] Lead Channel RA Pacing Threshold Pulse Width 0.5 [facility] Lead Channel RA Measurements Date and Time [id number] [facility] Lead Channel Setting RA Pacing Amplitude 2.000 [facility] [email or web address] Lead Channel Setting RA Pacing Pulse Width 0.5 [facility] [email or web address] [facility] Lead Channel RV Sensing Intrinsic Amplitude 11.400 [facility] [email or web address] [facility] Lead Channel Setting RV Sensing Sensitivity 0.50 [facility] [email or web address] Lead Channel RV Impedance Value 730 [facility] Lead Channel Setting RV Pacing Amplitude 2.500 [facility] [email or web address] [facility] Lead Channel Setting RV Pacing Pulse Width 0.5 [facility] Jus Setting Mode (NBG Code) DDDR [facility] Jus Setting Lower Rate Limit 60 [facility] Jus Setting AT Mode Switch Rate 180 [facility] Jus Setting Maximum Tracking Rate 90 [facility] Jus Setting Maximum Sensor Rate 110 [facility] Jus Setting PAV Delay 250 [facility] Jus Setting REY Delay 250 [facility] Therapy Statistic Recent Shocks Delivered 0 [facility] Therapy Statistic Recent Shocks Aborted 0 [facility] Therapy Statistic Recent ATP Delivered 0 [facility] SHOCK MEASURED IMPEDANCE 62 [facility] Lead Channel Setting RA Sensing Polarity Bipolar [facility] Lead Channel Setting RV Sensing Polarity Bipolar [facility] Lead Channel Setting RA Pacing Polarity Bipolar [facility] Lead Channel Setting RV Pacing Polarity Bipolar [facility] Lead Channel RA Pacing Threshold Polarity Bipolar [facility] Lead Channel RV Pacing Threshold Polarity Bipolar [facility] Zone Setting Type Category VT [facility] IDC RATE 1 141 [facility] Zone Setting Status On [facility] Zone ID 1 [facility] Zone Setting Type Category VT [facility] IDC RATE 1 171 [facility] THERAPIES 4 x Burst+Scan,25.0J,3 4.0J,40.0J x 2 [facility] Zone Setting Status On [facility] Zone ID 2 [facility] Zone Setting Type Category VF [facility] IDC RATE 1 222 [facility] THERAPIES 30.0J,40.0J,40.0J x 4 [facility] Zone Setting Status On [facility] Zone ID 3 [facility] 08/16/2025 2:02 AM EDT us Dinorah Christiansen MD CV IMPLANTABLE CARDIAC DEVIC E Final Result [facility] from Last 3 Months Insurance MEDICARE B ONLY MEDICAID [place] Advance Directives * CPR (Attempt to Resuscitate) (Latest Code Status on File) Date Activated Date Inactivated Comments 08/24/2025 3:43 PM 08/27/2025 3:11 PM Question Answer Comments Code Status (Patient has no pulse and is not breathing): CPR (Attempt to Resuscitate) Medical Interventions (Patie nt has pulse or is breathing): Full Support Level Of Support Discussed With: Patient Care Teams Linen Clerk Relationship Specialty Start Date End Date Marly Kumar APRN [address] [place] [address] PCP - General Family Medicine 07/06/24
--- OUTSIDE RECORDS SUMMARY | 2025-10-28 10:33 | XMS_ITS | Encounter Summary ---
Author Organization [facility] Address [address] [place] [address] Care Team Providers Care Project Geophysicist Name Role Phone Marly Kumar SHAKIRA Primary Care Provider [phone] Reason for Visit * Reason Onset Date Comments Med Management 10/10/2025 Encounter Details Date Type Department Care Team (Late st Contact Info) Description 10/10/2025 Telephone [facility] GASTROENTEROLOGY [address] [facility] [address] [place] [address] Shahla Troy PA-C [address] [facility] [address] [place] [address] Med Management Social History Tobacco Use Types [...] SPOKE WITH PHARMACIST. PRESCRIPTION IS READY FOR BEATER OUT LEVELING MACHINE * Telephone Encounter - Melinda Morton RegSched Rep - 10/10/2025 2:45 PM EST Hub staff attempted to follow warm transfer process and was unsuccessful Caller: [facility] - [address] [phone] [facility] [phone] FX Relationship to patient: Pharmacy Best call back number: [phone] Patient is needing: PHARMACY IS NEEDING TO SPEAK W/ THE OFFICE REGARDING PRESCRIPTION. PLEASE CALL AND ADVISE. documented in this encounter Plan of Treatment Upcoming Encounters Date Type Department Care Team (Late st Contact Info) Description 10/31/2025 9:00 AM EST Office Visit [facility] CARDIOLOGY [address] [place] [address] Nereida Ambrose APRN [address] [place] [address] 11/13/2025 2:30 PM EST Office Visit [facility] NEUROLOGY [address] [facility] [address] [place] [address] Camille Spann APRN [address] [facility] [address] [address] 02/09/2026 2:15 PM EDT Office Visit [facility] GASTRO[facility]OLOGY [address] [facility] [address] [place] [id number] Shahla Troy PAMireille [address] [facility] [address] [place], [place] [address] documented as of this encounter Visit Diagnoses Not on filedocumented in this encounter Care Teams Project Geophysicist Relationship Specialty Start Date End Date Marly Kumar APRN [address] [place] [address] PCP - General Family Medicine 07/06/24 documented as of this encounter
--- OUTSIDE RECORDS SUMMARY | 2025-10-28 10:33 | XMS_ITS | Encounter Summary ---
Author Organization [facility] Address [address] [place] [address] Care Team Providers Care Capture Manager Name Role Phone Jessie Payne APRN Unavailable Marly Gomez APRN Primary Care Provider [phone] Encounter Details Date Type Department Care Team (Late st Contact Info) Description 10/23/2025 Telephone [facility] [address] [address] [facility] Social History Tobacco Use Types [...] drink first t zander in the morning (EYE-ROLLER [employer]IL[employer]) to steady your nerves or to get [...] Description 11/23/2025 9:00 AM EST Appointment [facility] [address] [address] 11/23/2025 9:30 AM EST Appointment [facility] [place] [address] [address] [address] 11/23/2025 1:00 PM EST Appointment [facility] [place] [address] [address] [address] documented as of this encounter Visit Diagnoses [...] documented as of this encounter Care Teams Capture Manager Relationship Specialty Start Date End Date Marly Kumar APRN [address] [place] [address] PCP - General 06/09/25 Jessie Payne APRN 08/07/23 documented as of this encounter
--- OUTSIDE RECORDS SUMMARY | 2025-10-28 10:33 | XMS_ITS | Clinical Summary ---
Author Organization [facility] ([place], [place], [place], [place], [place]) Address [address] [place] [address] Care Team Providers Care Crate Opener Name Role Phone Marly Kumar US MARKETING DIRECTOR Primary Care Provider Allergies Active Allergy Reactions Criticality Noted Date [...] 10/06/2024 Pacemaker 10/06/2024 Other supraventricular tachycardia 10/06/2024 DE (myocardial infarction) 10/06/2024 Gastroesophageal reflux disease 10/06/2024 Seizures 10/06/2024 TIA (transient ischemic attack) 10/06/2024 Chronic obstructive pulmonary disease 10/06/2024 Smoker 10/06/2024 Encounters Date Type Department Care Team Description 10/11/2025 10:00 AM EST Office Visit [facility] Neurology [address] [facility] [address] [place] [address] Rad Duong MD Localization-related epilepsy [...] 08/02/2025, 09/08/2024 Medical Devices Implanted Type Area Deburrer Device Identifier Shelf Expiration Date Model / Serial / Lot Iol Uv Clareon +21.5 [id number] - [id number] Implanted:Qty: 1 on 09/22/2024 by Urmila So MD at [facility] IMPLANTS Left: Eye GUS 09/24/2027 [id number] / [id number] / Iol Uv Clareon +22.0 [id number] - [id number] Implanted:Qty: 1 on 10/06/2024 by Urmila So MD at [facility] IMPLANTS Right: Eye GUS 08/05/2027 [id number] / [id number] / Insurance MEDICARE PART B ONLY MEDICAID OF [place] Care Teams Crate Opener Relationship Specialty Start Date End Date Marly Kumar NP [address] [place] [address] PCP - General Nurse Practitioner 09/22/24
--- OUTSIDE RECORDS SUMMARY | 2025-10-28 10:33 | XMS_ITS | Encounter Summary ---
Author Organization [facility] ([place], [place], [place], [place]) Address [address] [place] [address] Care Team Providers Care Vp Celebrity Services Name Role Phone Marly Kumar STICKER ON Primary Care Provider [phone] Encounter Details Date Type Department Care Team (Late st Contact Info) Description 07/28/2020 Transcribed Document [facility] [place] [address] ProviderMiya MD [address] [place] [address] Social History Tobacco Use Types Packs/Day [...] EDT Electronically signed by Klaus Sprague [employer] Logistics Manager Cerner at 02/19/2023 6:42 PM CDT documented in this encounter Plan of Treatment Not on file documented as of this encounter Visit Diagnoses Not on filedocumented in this encounter Care Teams Vp Celebrity Services Relationship Specialty Start Date End Date Marly Kumar, DUNG [address] [place] [address] [place] [address] PCP - General Nurse Practitioner 09/22/24 documented as of this encounter
--- OUTSIDE RECORDS SUMMARY | 2025-10-28 10:33 | XMS_ITS | Encounter Summary ---
Author Organization [facility] ([place], [place], [place], [place]) Address [address] [place] [address] Care Team Providers Care Field Operations Coordinator Name Role Phone Marly Kumar QUALITY IMPROVEMENT CONSULTANT Primary Care Provider [phone] Encounter Details Date Type Department Care Team (Late st Contact Info) Description 07/28/2020 Transcribed Document [facility] [place] [facility] [place] [address] ProviderMiya MD [address] [place] [address] Social History Tobacco Use Types Packs/Day [...] EEG-video monitoring was performed using the 32-channel [employer] monitoring system. The seizure detection computer was [...] temporal regions, more prominent on the left. /[id number] Rad Duong MD TAF/AQ / TAF / MODL /[id number] documented in this encounter Plan of Treatment Not on file documented as of this encounter Visit Diagnoses Not on filedocumented in this encounter Care Teams Field Operations Coordinator Relationship Specialty Start Date End Date Marly Kumar NP [address] [place] [address] PCP - General Nurse Practitioner 09/22/24 documented as of this encounter
--- OUTSIDE RECORDS SUMMARY | 2025-10-28 10:33 | XMS_ITS | Continuity of Care Document ---
Author Organization [place] - [employer], [facility] Address [address] [place] [id number] Care Team Providers Care Information And Referral Director Name Role Phone KIMBERLY SUMMERS Community Health Worker Assessment Encounter Date Assessment Date Assessment LastModified by Organization Details LastModified Time 08/02/2025 08/02/2025 Increase mirtazapine to 45 mg daily. Continue care with specialists. Notified CHW of living situation and she is going to try to help patient. Updated flu/COVID immunizations today after patient was counseled. Follow up in 3 weeks as planned, sooner if needed. Not available 08/03/2025 16:00:14 Plan of Treatment Reminders Order Date Submit Date Provider Last Modified By Organization Details Last Modified Time Details Appointments TRANSP ORTATI ON 2025 01:30P M Transporter Not available Not available Not available FOLLOW UP 2025 02:00P M José, Marly Not available Not available Not available Lab None record ed. Referral None record ed. Procedures None record ed. Surgeries None record ed. Imaging None record ed. Medication Orders mirtaz apine 45 mg tablet 2024 025 [facility], [address] [place] [address], [address], 08/04/2025 14:51:54 Patient TargetsNo targets recorded. Patient InstructionsNo instructions recorded. Reason for Referral None Reported. Results Created Date Observation Date Name Description Value Unit Range Abnormal Flag Note LastModifiedBy Organization Detail LastModifiedTime 07/06/20 25 07/06/2025 XR, chest , 2 view No observ ation record ed. [address], [place], [address], 07/06/2025 12:12:38 07/06/2007/06/2025 elect rocar diogr am No observ ation record ed. [place] [address], [place], [address], 07/07/2025 10:42:54 07/06/2007/06/2025 elect rocar diogr am No observ ation record ed. [place] [address], [place], [address], 07/06/2025 15:57:13 08/08/20 XR, chest , 2 view No observ ation record ed. [address], [address], 08/08/2025 16:34:02 08/23/2008/23/2025 CT, head + brain , w/o contr ast No observ ation record ed. [place] [address], [place], [address], 08/25/2025 09:30:42 08/23/2008/23/2025 CT, angio gram, neck, w/wo contr ast No observ ation record ed. [address], [place], [address], 08/25/2025 09:30:26 08/23/2008/23/2025 CT, angio gram, head, w/wo contr ast No observ ation record ed. [address], [place], [address], 08/25/2025 09:30:08 08/24/2008/23/2025 irma south am, routi ne ECG, 12 leads min No observ ation record ed. [address], [place], [address], 08/25/2025 09:27:12 08/24/20 25 08/24/2025 US, doppl er echoc ardio gram No observ ation record ed. [address], [place], [address], 08/25/2025 09:24:11 10/18/20 25 10/17/2025 MAMMO , diagn ostic , digit al, unila teral No observ ation record ed. [address] Centralized Scheduling [address] [place], [address], 10/19/2025 14:44:04 10/19/20 25 10/17/2025 MAMMO , diagn ostic , digit al, unila teral No observ ation record ed. [address] Centralized Scheduling [address] [place], [address], 10/19/2025 14:44:04 10/24/20 25 10/24/2025 imagi ng/di agnos tic resul t No observ ation record ed. [address], [place], [address], 10/25/2025 09:49:25 10/24/20 25 10/24/2025 imagi ng/di agnos tic resul t No observ ation record ed. [address], [place], [address], 10/25/2025 09:49:25 Result Notes None recorded. Problems Name Problem SNOMED Code Status Onset Date Resolution Date Notes Provider Name and Address Organization Details Recorded Time Acute on chronic systolic heart failure 679220881 Completed 201611/25/2016 Not Available [facility] 21:36:04 Bronchop neumonia 375187809 Completed 201601/19/2017 Problem Code: J18.0; Problem Code Type: ICD-10; Not Available [facility] 21:36:04 Congesti ve heart failure 42908724 Completed 201611/25/2016 Problem Code: 428.0; Problem Code Type: ICD-9; Not Available [facility] 21:36:05 Pneumoco ccal pneumoni a 122009652 Completed 201601/19/2017 Problem Code: 481; Problem Code Type: ICD-9; Not Available [facility] 21:36:05 Bronchop neumonia 705831448 Completed 201601/24/2017 Problem Code: J18.0; Problem Code Type: ICD-10; Not Available [facility] 21:36:04 Pneumoco ccal pneumoni a 853012439 Completed 201601/24/2017 Problem Code: 481; Problem Code Type: ICD-9; Not Available [facility] 21:36:05 Pain of left wrist 14962824799 9102 Completed 201604/25/2017 Problem Code: M25.532; Problem Code Type: ICD-10; Not Available [facility] 21:36:04 Localize d edema 476975782 Completed 201604/25/2017 Problem Code: R60.0; Problem Code Type: ICD-10; Not Available [facility] 21:36:05 Pain of joint of wrist 207227341 Completed 201604/25/2017 Problem Code: 719.43; Problem Code Type: ICD-9; Not Available [facility] 21:36:05 Edema 759953877 Completed 201604/25/2017 Problem Code: 782.3; Problem Code Type: ICD-9; Not Available [facility] 21:36:05 Hyperten sive disorder 29522451 Completed 202209/27/2025 Marly Kumar APRN [address] [place] [address], [address] [place] [address] , [employer] 5 08:49:10 Hyperlip idemia 75644172 Completed 202203/29/2025 Marly Kumar APRN [address] [place] [address], [address] , [employer] 5 09:38:16 Chronic obstruct mark pulmonar y disease 72260281 Active [address], [address] [place] [address] , [employer] 3 14:59:59 Hypothyr oidism 70818464 Active [address], [address] [place] [address] , [employer] 3 15:01:45 Monitori ng of pacemake r 39640325 Active [address], [address] [place] [address] , [employer] 3 15:22:52 Seizure disorder 709836958 Active 2022 Marly Kumar APRN [address] [place] [address], [address] [place] [address] , [employer] 4 18:02:53 Memory impairme nt 636572486 Active 2022 Marly Kumar APRN [address] [place] [address], [address] [place] [address] , [employer] 4 18:02:44 Seasonal allergy 820218993 Active 2022 Marly Kumar APRN [address] [place] [address], [address] , [employer] 4 18:02:51 Nausea 045230661 Completed 202205/26/2024 Marly Kumar APRN [address] [place] [address], [address] , [employer] 5 08:49:37 Mixed hyperlip idemia 655913909 Active 2022 Marly Kumar APRN [address] [place] [address], [address] , [employer] 4 18:02:46 Anxiety disorder 700082500 Completed 202205/26/2024 Marly Kumar APRN [address] [place] [address], [address] [place] [address] , [employer] 4 12:06:47 Insomnia 899025925 Active 2022 Marly Kumar APRN [address] [place] [address], [address] [place] [address] , [employer] 4 18:02:40 Hypomagn esemia 557283521 Completed 202205/26/2024 Marly Kumar APRN [address] [place] [address], [address] [place] [address] , [employer] 5 08:53:13 Gastroes ophageal reflux disease without esophagi tis 883747624 Active 2022 Marly Kumar APRN [address] [place] [address], [address] [place] [address] , [employer] 4 18:02:34 Hypokale caitlyn 30507899 Completed 202205/26/2024 Marly Kumar APRN [address] [place] [address], [address] , [employer] 5 09:20:02 Candidia sis of skin 36131868 Completed 202205/26/2024 Marly Kumar APRN [address] [place] [address], [address] , [employer] 5 14:39:29 Wound of skin 807849701 Completed 202209/27/2025 Marly Kumar APRN [address] [place] [address], [address] , [employer] 5 08:49:19 Localize d swelling of head 05381387932 381047 Completed 202305/26/2024 Marly Kumar APRN [address] [place] [address], [address] , [employer] 4 18:02:42 Chronic low back pain 633837706 Active 2023 Marly Kumar APRN [address] [place] [address], [address] , [employer] 4 18:02:29 Abnormal gait due to muscle weakness 703030040 Completed 202305/26/2024 Marly Kumar APRN [address] [place] [address], [address] , [employer] 4 12:06:44 Diarrhea 89344901 Completed 202305/26/2024 Marly Kumar APRN [address] [place] [address], [address] , [employer] 4 18:02:32 Numbness of hand 483157745 Completed 202309/08/2024 Marly Kumar APRN [address] [place] [address], [address] , [employer] 4 09:59:28 Peripher al demyelin ating neuropat hy 69581252 Active 2023 Marly Kumar APRN [address] [place] [address], [address] , [employer] 4 09:59:26 Chronic back pain 043012666 Active 2023 Marly Kumar APRN [address] [place] [address], [address] , [employer] 5 09:19:42 Osteopor osis 24687695 Active 2023 Marly HarrisSHAKIRA frey [address] [place] [address], [address] , [employer] 09:19:56 Hypokale caitlyn 26616268 Completed 202312/07/2024 Marly Kumar APRN [address] [place] [address], [address] [place] [address] , [employer] 09:20:02 Urinary incontin ence 076016015 Active 2023 Marly Harristk [employer] [address] [place] [address], [address] [place] [address] , [employer] 09:19:58 Essentia l hyperten patricia 73267007 Active 2024 Marly José, [employer] [address] [place] [address], [address] [place] [address] , [employer] 09:19:43 Pain of left knee joint 18645356304 4107 Completed 202401/23/2025 Marly Kumar [employer] [address] [place] [address], [address] [place] [address] , [employer] 11:21:21 Restless legs syndrome 42240879 Active 2024 Marly José, [employer] [address] [place] [address], [address] [place] [address] , [employer] 11:21:23 Bilatera l lower limb edema 893269743 Completed 202401/23/2025 Marly Kumar [employer] [address] [place] [address], [address] [place] [address] , [employer] 11:21:15 Pain of bilatera l hands 72152224208 807960 Completed 202401/23/2025 Marly Kumar [employer] [address] [place] [address], [address] [place] [address] , [employer] 11:21:18 Candidia sis of skin 41534848 Completed 202402/17/2025 Marly Kumar APRN [address] [place] [address], [address] [place] [address] , [employer] 14:39:28 Cough 60544449 Completed 202409/27/2025 Marly Kumar APRN [address] [place] [address], [address] [place] [address] , [employer] 08:49:24 Macromas tia 737151193 Completed 202409/27/2025 Marly Harristk [employer] [address] [place] [address], [address] [place] [address] , [employer] 08:49:22 Mammogra phy abnormal 930163442 Active 2024 Marly Harristk [employer] [address] [place] [address], [address] [place] [address] , [employer] 09:14:58 Pneumoni a 877104900 Completed 202403/29/2025 Marly Harristk [employer] [address] [place] [address], [address] [place] [address] , [employer] 09:02:21 Acute cough Completed 202405/10/2025 Marly Kumar [employer] [address] [place] [address], [address] [place] [address] , [employer] 10:28:29 Acute exacerba tion of chronic obstruct mark pulmonar y disease 340595831 Completed 202405/10/2025 Marly Kumar [employer] [address] [place] [address], [address] [place] [address] , [employer] 10:28:27 Nausea 057184103 Completed 202409/27/2025 Marly Harristk [employer] [address] [place] [address], [address] [place] [address] , [employer] 08:49:37 Quantity of physiolo gic substanc e outside referenc e range 344494508 Completed 202408/30/2025 Marly Kumar APRN [address] [place] [address], [address] [place] [address] , [employer] 13:00:44 Hypomagn esemia 955718530 Active 2024 Marly Kumar APRN [address] [place] [address], [address] , [place] [employer] 08:53:13 Fatigue 73074639 Completed 202408/30/2025 Marly Kumar APRN [address] [place] [address], [address] [place] [address] , [place] [employer] 13:00:51 Cobalami n deficien cy 338050781 Active 2024 Marly Kumar APRN [address] [place] [address], [address] [place] [address] , [employer] 13:00:55 Pain 94073824 Completed 202409/27/2025 Marly Kumar APRN [address] [place] [address], [address] [place] [address] , [place] [employer] 08:49:38 Pain in bilatera l feet 72939086224 515274 Active 2024 Marly Kumar APRN [address] [place] [address], [address] [place] [address] , [place] [employer] 13:00:47 Paresthe herson of foot 063233887 Active 2024 Marly Kumar APRN [address] [place] [address], [address] [place] [address] , [place] [employer] 13:00:45 Anxiety 69941332 Active 2024 Marly Kumar APRN [address] [place] [address], [address] [place] [address] , [place] [employer] 08:49:30 Fever 217289888 Completed 202408/30/2025 Marly Kumar APRN [address] [place], [address] , [employer] 5 13:00:50 Vitamin D deficien 40638992 Active 2024 Marly Kumar, [employer] [address] [place], [address] , [employer] 5 10:35:10 Problem Notes None recorded. Procedures Surgical History Date Name Laterality Status Provider Name and Address Organization Details Recorded Time 11/02/19 23 Most Recent Mammogram completed Ruth Zhao [facility]. 11/26/2023 13:21:36 10/29/20 16 cholecystectomy completed Not Available [facility] 07/08/2022 22:56:19 10/29/20 16 hernia repair completed Not Available [facility] 07/08/2022 22:56:20 10/29/20 16 hysterectomy completed Not Available [facility] 07/08/2022 22:56:21 lumpectomy of right breast completed [employer] 08/19/2023 14:52:33 Imaging Results None recorded. Procedure Notes None recorded. Medical Equipment None Reported. Allergies Allergen ID Allergen Name Allergen Category Reaction Reaction Severity Criticality Documentation Date Start Date Code Code System Note Provider Name and Address Organization Details Recorded Time 22703 Product containin g penicilli n (product) medicatio n Not available Not available Not available 07/08/2022 88327 8001 SNOMED [facility] Com. 3 14:43:11 54480 Substance with sulfonami de structure and antibacte rial mechanism of action (substanc e) medicatio n Not available Not available Not available 07/08/2022 79779 8003 SNOMED [facility] Management. 3 14:43:16 89641 Fosamax medicatio n Not available Not available Not available 07/08/2022 30051 5 RxNorm Not Available [facility] 2 22:55:02 68010 tamsulosi n medicatio n other Not available low 09/25/20252022 67129 RxNorm Sick to stoma ch Not Available erich - External Data Service - prod 12:37:33 53513 alendroni c acid Not available Not available Not available Not available 09/25/2025 94338 3 RxNorm unrec ogniz ed react ion (text : Adver se react ion to subst ance, code: 99793 0009) (from exter nal sourc e) Not Available erich - External Data Service - prod 12:37:42 74977 gabapenti n medicatio n Not available Not available Not available 09/25/20252020 23530 RxNorm unrec ogniz ed react ion (text : Irrit abili ty, code: 37987 6000) (from exter nal sourc e) Not Available [facility] External Data Service - prod 12:37:54 41367 alendrona te sodium medicatio n Not available Not available low 09/25/20252016 42035 2 RxNorm Not Available [facility] External Data Service - prod 12:38:24 Medications [...] Organization Details Last Updated DateTime 152.4 cm 33.1 kg/m2 12788.5 6 g 78 /min 95 % 138/80 mm[Hg] Codie Shah [facility]. 14:15:52 Social History Question Answer Notes LastModified by Organizat ion Details LastModified Time Tobacco Smoking Status Former Smoker ALBERTO mayorga [facility]. 08/19/2023 14:46:52 Do You Have An Advance Directive? No [email or web address] Information n ot available 08/19/2023 Is Your Home Air Conditioned? Yes Information not available 08/19/2023 Are You Blind Or Do You Have Difficulty Seeing? Yes Information not available 12/23/2023 Are You A Caregiver? No [email or web address] Information not available 06/23/2024 In The 14 [...] To Be High Risk For COVID-19? No [email or web address] Information not available 08/19/2023 Are You Deaf Or Do You Have Serious Difficulty Hearing? Yes [email or web address] Information not available 12/23/2023 What Type Of Diet Are You Following? REGULAR [email or web address] Information n ot available 08/19/2023 Have Your Transportation Difficulties Led To Difficulty In Accessing Medical Care? Yes Information not available 08/02/2025 What Is The Highest Grade Or Level Of School You Have Completed Or The Highest Degree You Have Received? [id number] [email or web address] Information not available 08/02/2025 How Many Days Of Moderate To Strenuous Exercise, Like A Brisk Walk, Did You Do In The Last 7 Days? 5 [email or web address] Information not available 08/02/2025 Have There Been Any Changes To Your Family Or Social Situation? No [email or web address] Information not available 08/19/2023 When Did You Quit Smoking? 16+yearssinc elastcigaret te [email or web address] Information not available 08/19/2023 Which Of Your Hands Is Dominant? Right [email or web address] Information not available 08/02/2025 Do You Engage In Moderate/heavy Exercise (e.g. Brisk Walk, Jogging, Strength Training, Etc)? Yes [email or web address] Information not available 08/02/2025 Do You Have A Medical Power Of Band Booker? No [email or web address] Information not available 08/19/2023 What Was The Date Of Your Most Recent Tobacco Screening? 09/27/2025 [email or web address] Information n ot available 09/27/2025 What Is Your Current Pack Years? 10-19packyea rs [email or web address] Information not available 08/19/2023 Do You Have Any Pets? Yes [email or web address] Information not available 08/19/2023 What Is Your Relationship Status? [email or web address] Information not available 08/19/2023 Do You Wear A Seatbelt When Driving Or As A Passenger? Yes [email or web address] Information not available 08/02/2025 Do You Use Your Seat Belt Or Car Seat Routinely? Yes [email or web address] Information not available 08/19/2023 Are You Sexually Active? Yes [email or web address] Information not available 08/02/2025 Do You Have Smoke And Carbon Monoxide Detectors In Your Home? Yes [email or web address] Information not available 08/19/2023 At What Age Did You Start Smoking Tobacco? 11 [email or web address] Information not available 08/02/2025 Are You Passively Exposed To Smoke? Yes [email or web address] Information no t available 08/19/2023 Are There Any Smokers In Your House? Yes [email or web address] Information not available 08/19/2023 How Much Tobacco Do You Smoke? No Information not available 08/02/2025 Do You Participate In Social Media? No [email or web address] Information not available 06/23/2024 Has Tobacco Cessation Counseling Been Provided? No [email or web address] Information not available 08/19/2023 How Many Years Have You Smoked Tobacco? 40 [email or web address] Information not available 08/02/2025 Have You Recently Traveled Abroad? No [email or web address] Information not available 08/19/2023 Do You Have Difficulty Walking Or Climbing Stairs? Yes [email or web address] Information not available 08/19/2023 Are You Currently In School? No [email or web address] Information not available 08/19/2023 Do You Feel Safe In Your Home? Yes Information not available 08/02/2025 Do You Have Any Dietary Restrictions? No [email or web address] Information not available 06/23/2024 Sex: Unknown Functional Status Question Answer Note LastModified by [employer] Details LastModified Time Do you use any illicit or recreational drugs? No [email or web address] Information not available 08/19/2023 Do you or have you ever used any other forms of tobacco or nicotine? No [email or web address] Information not available 08/19/2023 What is your level of alcohol consumption? None [email or web address] Information not available 08/19/2023 Are you currently employed? No [email or web address] Information not available 08/19/2023 Do you have transportation difficulties? Yes unable to drive herself [email or web address] Information not available 08/19/2023 Are you able to walk independently without assistance or assistive devices? YESWOREST uevctxood219 Information not available 08/19/2023 Do you have difficulty doing errands alone? Yes Information not available 12/23/2023 Are you able to care for yourself independently? Yes [email or web address] Information not available 08/19/2023 Do you have difficulty dressing, bathing, grooming, or toileting? Yes [email or web address] Information not available 12/23/2023 Mental Status Question Answer Note LastModified by Organizat ion Details LastModified Time Do you feel stressed (tense, restless, nervous, or anxious, or unable to sleep at night)? [id number] [email or web address] Information not available 08/02/2025 Do you have difficulty concentrating, remembering or making decisions? Yes [email or web address] Information no t available 12/23/2023 Family History Relationship Description Onset Age of this Age Resolved Age Notes LastModified by Organization Details LastModified Time Mother Family history of Hypertension [email or web address] Not available 08/19/2023 14:44:48 Mother Family history of congestive heart failure [email or web address] Not available 14:44:53 Mother Family history of Myocardial infarction [email or web address] Not available 14:44:57 Mother Diabetes mellitus Not available 14:45:07 Mother Parkinson's disease [email or web address] Not available 14:45:25 Medical History Condition Response Emergency room visit since last appointm ent. N Hypothyroidism Y Acid Reflux (GERD) N High Cholesterol Y Hospitalizations N Acne N ADD/ADHD N Abuse/Domestic Violence N Hypertension Y Gynecological History Statement/Question Response Date of Last Pap Smear Most Recent Mammogram 11/02/2022 Obstetrics History GPAL:G 0 P 0 0 0 0 Immunizations Vaccine Type Date Status Note Provider Nam e and Address Organization Details Recorded Time Influenza, high-dose, trivalent, PF 4 completed Marly Kumar APRN [address] [place] [address], [address], [employer] 09/09/2024 11:00:39 RSV, recombinant, protein subunit RSVpreF, adjuvant reconstituted, 0.5 mL, PF 4 completed Marly Kumar APRN [address] [place] [address], [address], [employer] 09/09/2024 11:00:39 zoster recombinant 4 completed Marly Kumar APRN [address] [place], [address], [employer] 09/26/2024 17:21:28 zoster recombinant 5 completed Marly Kumar APRN [address] [place], [address], [employer] 12/28/2024 12:12:07 Tdap 5 completed Codie mayorga, [employer] 05/10/2025 10:57:25 Influenza, high-dose, trivalent, PF 5 completed Codie Shah null, [employer] 08/02/2025 14:54:57 COVID-19, mRNA, LNP-S, PF, kaz-sucrose, 30 mcg/0.3 mL 5 completed Codie Shah null, [employer] 08/02/2025 14:54:58 COVID-19, mRNA, LNP-S, PF, 100 mcg/0.5mL dose or 50 mcg/0.25mL dose 1 completed ALBERTOROSARIO ROCK null, [employer] 08/19/2023 14:43:02 COVID-19, mRNA, LNP-S, PF, 30 mcg/0.3 mL dose 1 completed ALBERTOROSARIO ROCK null, [employer] 08/19/2023 14:43:02 COVID-19, mRNA, LNP-S, PF, 30 mcg/0.3 mL dose 1 completed ALBERTO ROCK null, [employer] 08/19/2023 14:43:02 Influenza, split virus, trivalent, preservative 7 completed ALBERTO ROCK null, [employer] 08/19/2023 14:43:02 Influenza, split virus, trivalent, preservative 2 completed ALBERTO ROCK null, [employer] 08/19/2023 14:43:02 Influenza, split virus, trivalent, preservative 0 completed ALBERTO ROCK null, [employer] 08/19/2023 14:43:02 Influenza, split virus, trivalent, PF 4 completed ALBERTO ROCK null, [employer] 08/19/2023 14:43:02 Influenza, split virus, quadrivalent, PF 2 completed ALBERTO ROCK null, [employer] 08/19/2023 14:43:02 Pneumococcal conjugate PCV20, polysaccharide CAZ807 conjugate, adjuvant, PF 4 completed Abi mayorga [place] - [employer]. 05/26/2024 11:20:59 Past Encounters Encounter ID Performer Location Encounter Start Date Encounter Closed Date Diagnosis/Indication Diagnosis SNOMED-CT Code Diagnosis ICD10 Code Diagnosis IMO Codes Diagnosis Note [id number] Marly KumarSHAKIRA [address] [address] 08/02/2025 14:08:01 08/02/2025 15:01:49 Anxiety 07898054 F41.9 11722 Anxiety disorder 5743032 06 F41.9 Immunization due 4840835 08 Z23 [id number] Health Concerns Section Related Observation LastModified by Organization Detai ls LastModified Time None Recorded Concern Status LastModified by Organization Details LastModified Time None Recorded Payers Encounter Date Sequence Insurance Name Policy Number Policy Cordero Covered Member ID Cordero Member ID Guarantor Name 08/02/2025 1 MEDICARE-[place] (MEDICARE) Eloy Perkins [id number] Eloy Perkins 08/02/2025 2 MEDICAID-[facility] - FFS/TRADITI ONAL [place] [id number] Eloy Perkins Notes Date Note Type Note Provider Name and Address Organization Details Recorded Time 08/02/2025 text/html Patient presents for evaluation of [...] she needs at home as well. Marly Kumar APRN [address] [facility], [place], [address], [facility] [employer] 08/03/2025 16:02:58 OBGyn Episode No OBEpisode recorded.
--- OUTSIDE RECORDS SUMMARY | 2025-10-28 10:33 | XMS_ITS | Encounter Summary ---
Author Organization [employer] ([place], [place], [place], [place], [place]) Address [address] [place] [address] Care Team Providers Care Die Designer Apprentice Name Role Phone Marly Kumar FINANCIAL OPERATIONS CLERK Primary Care Provider [phone] Encounter Details Date Type Department Care Team (Late st Contact Info) Description 07/28/2020 Transcribed Document [facility] Family Medicine [facility] [place] [address] ProviderMiya MD [address] [place] [address] Social History Tobacco Use Types Packs/Day [...] up with Dr. Duong in 6 months. /[id number] MD RAPHAEL Esquivel/AQ / TAF / MODL /[id number] documented in this encounter Plan of Treatment Not on file documented as of this encounter Visit Diagnoses Not on filedocumented in this encounter Care Teams Die Designer Apprentice Relationship Specialty Start Date End Date Marly Kumar NP [address] [place] [address] PCP - General Nurse Practitioner 09/22/24 documented as of this encounter
--- OUTSIDE RECORDS SUMMARY | 2025-10-28 10:33 | XMS_ITS | Encounter Summary ---
Author Organization [employer] ([place], [place], [place], [place], [place]) Address [address] [place] [address] Care Team Providers Care Spud Driller Name Role Phone Marly Kumar ELASTIC ATTACHER COVERSTITCH Primary Care Provider [phone] Encounter Details Date Type Department Care Team (Late st Contact Info) Description 07/27/2020 Transcribed Document [facility] Family Medicine [facility] [place] [address] ProviderMiya MD [address] [place] [address] Social History Tobacco Use Types Packs/Day [...] Oil: 1,000 mg, Oral, Daily Flonase: 1 [place], Nostrils Both, Daily Florastor: 250 mg, Oral, [...] Daily, 60 Cap, 0 Refill(s) Flonase: 1 [place], Nostrils Both, Daily, 0 Refill(s) Florastor: 250 [...] = 1 Cap, Oral, Daily Flonase 1 [place], Nostrils Both, Daily Florastor 250 mg, Oral, [...] Oral, Daily fluticasone 0.05% nasal spray 1 [place], Nostrils Both, Daily furosemide 40 mg tab [...] At risk for sleep apnea / IMO [id number] / Confirmed, Active Problems (17) Angina Arthritis [...] EDT Height Source Stated Height Entry Format [place] Height/Length, BELIZE[place] (ft) 4 ft Height/Length BELIZEAN 11 Inch CLINICALHEIGHT 149.86 cm Type of Weight Measurement. [place] Weight, est lb 245 lb Estimated Clinical Dosing Weight 111.36 kg [place] Body Weight 43 kg Weight Source Stated 07/26/2020 15:40 EDT Height Source Not Done: Completed and previously documented (Not Done) Height Entry Format Not Done: Completed and previously documented (Not Done) Weight Source Not Done: Completed and previously documented (Not Done) , Vitals Signs (last 24 hrs) Last Charted Minimum Maximum Temp 98.3 (JUL 24 12:00) 98.3 (JUL 26 12:00) 98.3 ([facility] 12:00) Apical HR 65 (JUL 26 12:00) 65 ([facility] 24 12:00) 65 ([facility] 24 12:00) Resp Rate 18 (JUL 24 12:00) 18 ([facility] 24 12:00) 18 ([facility] 24 12:00) SBP H 153 ([facility] 24 12:00) H 153 ([facility] 24 12:00) H 153 ([facility] 24 12:00) DBP 81 ([facility] 24 12:00) 81 ([facility] 24 12:00) 81 ([facility] 24 12:00) General: Alert and oriented. Eye: [...] on filedocumented in this encounter Care Teams Spud Driller Relationship Specialty Start Date End Date Marly Kumar NP [address] [place] [address] PCP - General Nurse Practitioner 09/22/24 documented as of this encounter
--- OUTSIDE RECORDS SUMMARY | 2025-10-28 10:33 | XMS_ITS | Clinical Summary ---
Author Organization [facility] Address [address] [place] [address] Care Team Providers Care Digital Forensic Analyst Name Role Phone Jessie Payne APRN Unavailable Marly Gomez APRN Primary Care Provider [phone] Allergies Active Allergy Reactions Criticality Noted Date [...] Team Description 10/23/2025 Telephone PAV [facility] [address] [address] [facility] 10/17/2025 - 10/17/2025 11:59 PM [facility] Hospital Encounter PAV [facility] [address] [address] Encounter for other specified special examinations Discharge Disposition: Home or Self Care from Last 3 Months Immunizations Immunization Administration [...] drink first t zander in the morning (EYE-TELETRAY OPERATOR) to steady your nerves or to [...] Description 11/23/2025 9:00 AM EST Appointment P[facility] [address] [address] 11/23/2025 9:30 AM EST Appointment P[facility] 234 [facility] [address] [place] [address] 11/23/2025 1:00 PM EST Appointment PAV [place] [address] [address] Health Maintenance Due Date Last Done Comments [facility]-Bone Density Scan 1955 [facility]-Hepatitis C Screening 1955 [facility]-Medicare Annual Wellness (AWV) 1955 [facility]-/Child/Adol SDOH Screenings 1955 [facility]- SDOH Screenings 1971 [facility]-Adult SDOH Screenings 1971 CT Colonography 1998 Colonoscopy 1998 FIT-DNA 1998 FIT 1998 FOBT 1998 Sigmoidoscopy 1998 [facility]-Colorectal Cancer Screening 1998 [facility]-Breast Cancer Screening 2003 OEF-IHKAA-28 Vaccine (5 - Mixed Product risk 2024- season) 01/31/2026 08/02/2025, 09/09/2021, 12/05/2020, Additional history exists [facility]-Depression Screening 07/11/2026 07/11/2025, 07/2025 [facility]-Diabetes: Hemoglobin A1C 09/21/2026 09/21/2025, 08/25/2025 [...] Patient has decision-making capacity? Yes Care Teams Digital Forensic Analyst Relationship Specialty Start Date End Date Marly Kumar, CROP DUSTER [address] [place] [address] PCP - General 06/09/25 Jessie Payne APRN 08/07/23
--- OUTSIDE RECORDS SUMMARY | 2025-10-28 10:33 | XMS_ITS | Referral Summary ---
Author Organization [employer] ([place], [place], [place], [place], [place]) Address [address] [place] [address] Care Team Providers Care Sales Enablement Lead Name Role Phone Marly Kumar NP Primary Care Provider [phone] Encounters Date Type Department Care Team Description 10/11/2025 Travel 10/11/2025 10:00 AM EST Office Visit [facility] Neurology [address] [place] [address] [address] Rad Duong MD Localization-related epilepsy [...] 10/06/2024 Pacemaker 10/06/2024 Other supraventricular tachycardia 10/06/2024 [place] (myocardial infarction) 10/06/2024 Gastroesophageal reflux disease 10/06/2024 [...] on file Medical Devices Implanted Type Area Liquid Flavor Compounder Device Identifier Shelf Expiration Date Model / Serial / Lot Iol Uv Clareon +21.5 [id number] - [id number] Implanted:Qty: 1 on 09/22/2024 by Urmila So MD at [facility] IMPLANTS Left: Eye GUS 09/24/2027 [id number] / [id number] / Iol Uv Clareon +22.0 [id number] - [id number] Implanted:Qty: 1 on 10/06/2024 by Urmila So MD at [facility] IMPLANTS Right: Eye GUS 08/05/2027 [id number] / [id number] / Insurance MEDICARE PART B ONLY MEDICAID OF [place] Care Teams Sales Enablement Lead Relationship Specialty Start Date End Date Marly Kumar NP [address] [place] [address] PCP - General Nurse Practitioner 09/22/24
--- OUTSIDE RECORDS SUMMARY | 2025-10-28 10:33 | XMS_ITS | Encounter Summary ---
Author Organization [facility] Address [address] [place] [address] Care Team Providers Care Outsole Cementer Machine Name Role Phone Marly Kumar SHAKIRA Primary Care Provider [phone] Encounter Details Date Type Department Care Team [...] Description 10/31/2025 9:00 AM EST Office Visit [facility] CARDIOLOGY [address] [place] [address] Nereida Ambrose APRN [address] [place] [address] 11/13/2025 2:30 PM EST Office Visit [facility] NEUROLOGY [address] [facility] [facility] [address] [place], [place] [id number] Camille Spann APRN 1720 [facility] [address] [address] 02/09/2026 2:15 PM EDT Office Visit [facility] GASTROENTEROLOGY [address] [facility] [address] [place] [address] Shahla Troy PALienC 1720 [facility] [address] [place], [place] [address] documented as of this encounter Visit Diagnoses Not on filedocumented in this encounter Care Teams Outsole Cementer Machine Relationship Specialty Start Date End Date Marly Kumar APRN [address] [place], [place] [id number] PCP - General Family Medicine 07/06/24 documented as of this encounter
--- OUTSIDE RECORDS SUMMARY | 2025-10-28 10:34 | XMS_ITS | Encounter Summary ---
Author Organization [facility] Address [address] [place] [address] Care Team Providers Care Information Technology Security Analyst Name Role Phone Marly Kumar SHAKIRA Primary Care Provider [phone] Encounter Details Date Type Department Care Team (Late st Contact Info) Description 08/29/2025 Telephone [facility] CARDIOLOGY [address] [place] [address] Dinorah Christiansen MD [address] [place] [address] Social History Tobacco Use Types Packs/Day [...] to Mira that ER visit was at [facility] and after reviewing records she reiterates thatcardiology can wait till her upcoming appointment. She relays that this sounds more of PCP or neuroissue. Called and relayed information to Sia at [facility]. * Telephone Encounter - Bridgette Zepeda RN - 08/29/2025 10:27 AM EDT Received phone call from Sia at the [facility]. She states concerns because Daniela was [...] have an event while at the day [facility]. Relays that she does not have a [...] Description 10/31/2025 9:00 AM EST Office Visit [facility] CARDIOLOGY [address] [place] [address] Nereida Ambrose, MONUMENTAL STONEMASON [address] [place] [address] 11/13/2025 2:30 PM EST Office Visit [facility] NEUROLOGY [address] [facility] [address] [place], [place] [phone] Camille Spann, MONUMENTAL STONEMASON 1720 [facility] [address] [place], [place] [address] 02/09/2026 2:15 PM EDT Office Visit [facility] GASTROENTEROLOGY 1720 [facility] JEN [address] [place] [address] Shahla Troy PA-C 17[address] [facility] [address] [place], [place] [address] documented as of this encounter Visit Diagnoses Not on filedocumented in this encounter Care Teams Information Technology Security Analyst Relationship Specialty Start Date End Date Marly Kumar, MONUMENTAL STONEMASON [address] [place] [address] PCP - General Family Medicine 07/06/24 documented as of this encounter
--- OUTSIDE RECORDS SUMMARY | 2025-10-28 10:34 | XMS_ITS | Encounter Summary ---
Author Organization [facility] Address [address] [place] [address] Care Team Providers Care Byproducts Supervisor Name Role Phone Marly Kumar SHAKIRA Primary Care Provider [phone] Encounter Details Date Type Department Care Team (Late st Contact Info) Description 08/29/2025 Readmission Management [facility] NURSE CALL CENTER [address] [place] [address] Liliane Dwyer, TIM Social History Tobacco [...] Medical Week 1 Survey Flowsheet Row Responses [facility] patient discharged from? [place] Does the patient have one of the [...] report. What is the Home health agency? [facility]ly [facility], [facility] Has home health visited the patient within [...] Description 10/31/2025 9:00 AM EST Office Visit [facility] CARDIOLOGY [address] [place] [address] Nereida Ambrose APRN [address] [place] [address] 11/13/2025 2:30 PM EST Office Visit [facility] NEUROLOGY 1720 [facility] [address] [place] [address] Camille Spann APRN 1720 [facility] [address] [address] 02/09/2026 2:15 PM EDT Office Visit [facility] GASTROENTEROLOGY 1720 [facility] [address] [place] [address] Shahla Troy PA-C [address] [facility] [address] [place] [address] documented as of this encounter Visit Diagnoses Not on filedocumented in this encounter Care Teams Byproducts Supervisor Relationship Specialty Start Date End Date José, Marly Briceno APRN [address] [place] [address] PCP - General Family Medicine 07/06/24 documented as of this encounter
--- OUTSIDE RECORDS SUMMARY | 2025-10-28 10:34 | XMS_ITS | Encounter Summary ---
Author Organization [facility] Address [address] [place] [address] Care Team Providers Care Community Living Specialist Name Role Phone Pcp, No Primary Care Provider Jessie King PROVIDER RELATIONS CONSULTANT Unavailable Marly Gomez PROVIDER RELATIONS CONSULTANT Primary Care Provider [phone] Reason for Referral * Consultation (Routine) - Closed Specialty Diagnoses / Procedures Referred By Contact Referred To Contact Physical Medicine and Rehabilitation Diagnoses Numbness Numbness and tingling Carpal tunnel syndrome, bilateral Cynthia Garay MD fax:[phone] [facility] [address] [facility] [place] [address] Phone: tel: fax: Referral ID Status Reason Start Date Expiration Date V isits Requested Visits Authorized [id number] Closed Specialty Services Required 06/02/2025 12/02/2026 1 1 Encounter Details Date Type Department Care Team (Late st Contact Info) Description 06/02/2025 Community [facility] Community [facility] [address] [place] [address] Cynthia Garay MD Numbness (Primary Dx); Numbness [...] drink first t zander in the morning (EYE-BUYING INTERN) to steady your nerves or to get [...] Description 11/23/2025 9:00 AM EST Appointment P[facility] [address] [facility] 800 [place] [address] 11/23/2025 9:30 AM EST Appointment P[facility] [address] [facility] [address] [place] [address] 11/23/2025 1:00 PM EST Appointment PAV [facility] [address] [facility] [address] [place] [address] Scheduled Referrals Name Type Priority Associated Diagnoses [...] documented as of this encounter Care Teams Community Living Specialist Relationship Specialty Start Date End Date Pcp, No [address] [place] [address] PCP - General Family Medicine 08/07/23 06/08/25 Marly Kumar APRN [address] [place] [address] PCP - General 06/09/25 Jessie Payne APRN [address] [place] [address] 08/07/23 documented as of this encounter
--- OUTSIDE RECORDS SUMMARY | 2025-10-28 10:34 | XMS_ITS | Encounter Summary ---
Author Organization [facility] Address [address] [place] [address] Care Team Providers Care Bottle Label Inspector Name Role Phone Marly Kumar SHAKIRA Primary Care Provider [phone] Encounter Details Date Type Department Care Team (Late st Contact Info) Description 09/07/2025 Readmission Management [facility] NURSE CALL CENTER [address] [place] [address] Renee Gage RN Social History Tobacco [...] Medical Week 2 Survey Flowsheet Row Responses [facility] patient discharged from? [place] Does the patient have one of the [...] Description 10/31/2025 9:00 AM EST Office Visit [facility] CARDIOLOGY [address] [place] [place] [address] Nereida Ambrose APRN 24 [place] [address] 11/13/2025 2:30 PM EST Office Visit [facility] NEUROLOGY 1720 [facility] [address] [place], [place] [phone] Camille Spann APRN 1720 [facility] [address] [place], [place] [address] 02/09/2026 2:15 PM EDT Office Visit [facility] GASTROENTEROLOGY 1720 [facility] 302 [place] [address] Shahla Troy PA-C 1720 [facility] [address] [place], [place] [phone] documented as of this encounter Visit Diagnoses Not on filedocumented in this encounter Care Teams Bottle Label Inspector Relationship Specialty Start Date End Date Marly Kumar, MID LEVEL DEVELOPER [facility]5 [place], [place] [address] PCP - General Family Medicine 07/06/24 documented as of this encounter
--- OUTSIDE RECORDS SUMMARY | 2025-10-28 10:34 | XMS_ITS | Encounter Summary ---
Author Organization [facility] Address [address] [place] [address] Care Team Providers Care Lumber Bearer Name Role Phone Marly Kumar SHAKIRA Primary Care Provider [phone] Reason for Visit * Reason Onset Date Comments CAMILLE SPANN APRN- [facility] F/U APPT 08/28/20 Encounter Details Date Type Department Care Team (Late st Contact Info) Description 08/28/2025 Telephone [facility] NEUROLOGY [address] [place] [address] Camille Spann APRN [address] [place] [address] CAMILLE SPANN APRN- [facility] F/U APPT Social History Tobacco Use Types [...] to patient: Self Best call back number: [phone] New or established patient? [x] New [] Established Date of admission: 08/24/2025 Date of discharge: 08/27/2025 Length of stay (If applicable): 3 DAYS Facility discharged from: [facility] Diagnosis/Symptoms: HX OF RIGHT THALAMIC STROKE Suggested follow-up timeframe: 8 WEEKS Specialty Only: Did you see a [facility] provider? [x] Yes [] No If so, [...] Description 10/31/2025 9:00 AM EST Office Visit [facility] CARDIOLOGY [address] [place] [place] [address] Nereida Ambrose APRN [address] [place] [address] 11/13/2025 2:30 PM EST Office Visit [facility] NEUROLOGY 1720 [facility] [address] [place] [address] Camille Spann APRN 1720 [facility] [address] [address] 02/09/2026 2:15 PM EDT Office Visit [facility] GASTROENTEROLOGY 1720 [facility] [address] [place] [phone] Shahla Troy PA-C 1720 [facility] [address] [place] [phone] documented as of this encounter Visit Diagnoses Not on filedocumented in this encounter Care Teams Lumber Bearer Relationship Specialty Start Date End Date Marly Kumar APRN [address] [place] [id number] PCP - General Family Medicine 07/06/24 documented as of this encounter
--- OUTSIDE RECORDS SUMMARY | 2025-10-28 10:34 | XMS_ITS | Encounter Summary ---
Author Organization [facility] Address [address] [place] [address] Care Team Providers Care Supervising Nurse Name Role Phone Marly Kumar SHAKIRA Primary Care Provider [phone] Encounter Details Date Type Department Care Team [...] Visit [facility] CARDIOLOGY [address] [place] [address] Nereida Ambrose APRN [address] [place] [address] 11/13/2025 2:30 PM EST Office Visit [facility] NEUROLOGY 1720 [facility] JEN [address] [place], [place] [address] Camille Spann APRN 1720 [facility] [address] [address] 02/09/2026 2:15 PM EDT Office Visit [facility] GASTROENTEROLOGY 1720 [facility] JEN [address] [place] [address] Shahla Troy PALienC 1720 [facility] [address] [place], [place] [phone] documented as of this encounter Visit Diagnoses Not on filedocumented in this encounter Care Teams Supervising Nurse Relationship Specialty Start Date End Date Marly Kumar APRN [address] [place], [place] [address] PCP - General Family Medicine 07/06/24 documented as of this encounter
--- OUTSIDE RECORDS SUMMARY | 2025-10-28 10:34 | XMS_ITS | Encounter Summary ---
Author Organization [employer] ([place], [place], [place], [place], [place]) Address [address] [place] [address] Care Team Providers Care Disease Case Manager Name Role Phone Marly Kumar LEAD ATHLETE Primary Care Provider [phone] Encounter Details Date Type Department Care Team (Late st Contact Info) Description 07/28/2020 Transcribed Document [facility] [place] [address] ProviderMiya MD [address] [place] [address] Social History Tobacco Use Types Packs/Day [...] On: 07/28/2020 13:07 EDT by JENNIFER TRUJILLO RN-Head Of Sales Promotion Final Discharge Planning Discharge Arrangements : Patient Post-Acute Information Patient Name: RENNY VILLA Gender: Female : 51 Age: 64 Years No Post-Acute Placement(s) Listed No Post-Acute Service(s) Listed No [place] Referral(s) Listed Patient Offered Choice/Affiliations Explained : No Discharge Transportation Arrangement Cmt : [place] transportation Follow Up Appointment Scheduled : No (Comment: List of appointments sent to Patient Access Center [JENNIFER TRUJILLO RN-Head Of Sales Promotion - 07/28/2020 13:07 EDT] ) Is Patient High/Moderate Readmission Risk? : No Patient/Family Notified of Plan : Yes Is Patient Ready for Discharge? : Yes Physician Notified Patient is Ready for Discharge? : Yes Discharge To Care Management : SNF with Medicare Certification-03 JENNIFER TRUJILLO RN-Head Of Sales Promotion - 07/28/2020 13:07 EDT Final Narrative Note Final Narrative Note : Discharged back to [facility]. Transportation by [place] [facility] JENNIFER TRUJILLO RN-Head Of Sales Promotion - 07/28/2020 13:07 EDT Electronically signed by Klaus Sprague Conversion Territory Account Representative Cerner at 02/19/2023 6:43 PM CDT documented in this encounter Plan of Treatment Not on file documented as of this encounter Visit Diagnoses Not on filedocumented in this encounter Care Teams Disease Case Manager Relationship Specialty Start Date End Date Marly Kumar, DUNG [address] [place] [address] PCP - General Nurse Practitioner 09/22/24 documented as of this encounter
--- OUTSIDE RECORDS SUMMARY | 2025-10-28 10:34 | XMS_ITS | Encounter Summary ---
Author Organization [facility] ([place], [place], [place], [place], [place]) Address [address] [place] [address] Care Team Providers Care Glove Printer Name Role Phone Marly Kumar REPAIRER [employer] Primary Care Provider [phone] Encounter Details Date Type Department Care Team (Late st Contact Info) Description 07/28/2020 Transcribed Document [facility] [place] Family Medicine Formerly [facility] [place] [address] ProviderMiya MD [address] [place] [id number] Social History Tobacco Use Types Packs/Day [...] EEG-video monitoring was performed using the 32-channel Coderwall monitoring system. The seizure detection computer was [...] may be more prominent on the right. /[id number] MD RAPHAEL Esquivel/AQ / RAPHAEL / MODL /[id number] documented in this encounter Plan of Treatment Not on file documented as of this encounter Visit Diagnoses Not on filedocumented in this encounter Care Teams Glove Printer Relationship Specialty Start Date End Date Marly Kumar, REPAIRER [employer] [address] [place] [address] PCP - General Nurse Practitioner 09/22/24 documented as of this encounter
--- NOTE | 2025-10-28 10:35 | ECG_ITS ---
APPROVED REPORT Exam: Resting ECG HR:71 bpm ECG Measurements Heart Rate 71 AXES IN 157 P 67 QRSd 76 QRS 44 QT 354 T 65 QTc 376 Conclusion SINUS RHYTHM LOW QRS VOLTAGE IN PRECORDIAL LEADS [QRS DEFLECTION < 1.0 mV IN CHEST LEADS] BORDERLINE ECG Electronically signed by : JEFFERSON NOVAK, 10/29/2025 07:18:30
[2025-10-28 10:36] LABS: Coronavirus 19, PCR Not Detected (NotDetected); Influenza B, PCR Not Detected (NotDetected)
--- NOTE | 2025-10-28 10:36 | HMH.EDCP ---
Discharge Plan Disposition Patient Disposition: Home, Self-Care Prescriptions Prescriptions: New prednisone 50 mg tablet 50 mg PO DAILY 4 Days Qty: 4 0RF oseltamivir [Tamiflu] 75 mg capsule 75 mg PO Q12H 5 Days Qty: 10 0RF No Action quetiapine 25 mg tablet 12.5 mg PO HS Patient Comments: take ONE-HALF TABLET BY MOUTH every night FOR SLEEP loratadine 10 mg tablet 10 mg PO DAILY Patient Comments: TAKE ONE TABLET BY MOUTH DAILY budesonide-formoterol 160-4.5 mcg/actuation HFA aerosol inhaler 2 puff inhalation BID fenofibrate nanocrystallized 145 mg tablet 145 mg PO HS Patient Comments: TAKE ONE TABLET BY MOUTH AT BEDTIME levothyroxine 88 mcg capsule 88 mcg PO DAILY Rx Instructions: Take 1 tablet by mouth daily on empty stomach before breakfast tizanidine 4 mg tablet 4 mg PO DAILY PRN (Reason: muscle spasms) Rx Instructions: Take 1/2 to 1 tablet every 6 hours as needed for pain levetiracetam [Keppra] 1,000 mg tablet 1,000 mg PO BID Qty: 180 3RF acetaminophen 500 MG tablet 1,000 mg PO BIDP PRN (Reason: pain) furosemide 40 mg tablet 40 mg PO BID ropinirole 1 mg tablet 1 mg PO HS omeprazole 40 capsule,delayed release(DR/EC) 40 mg PO DAILY atorvastatin 40 MG tablet 40 mg PO HS aspirin 81 MG tablet,chewable 81 mg PO DAILY nitroglycerin 0.4 MG tablet, sublingual 0.4 mg sublingual Q5MINP PRN (Reason: Chest Pain) magnesium oxide 400 mg (241.3 mg magnesium) tablet 400 mg PO DAILY albuterol sulfate [Ventolin HFA] 90 mcg/actuation Hfa Aerosol Inhaler 2 puff INHALATION Q4HP PRN (Reason: Shortness Of Breath) calcium carbonate-vitamin D2 600 mg calcium- 200 unit Tablet 1 tab PO DAILY midodrine 2.5 mg Tablet 2.5 mg PO NEEDED PRN (Reason: low blood pressure) Rx Instructions: do not give last dose of day after 6PM or within 4 hrs of bedtime potassium chloride 10 mEq tablet extended release 10 meq PO BID Patient Comments: TAKE ONE TABLET BY MOUTH TWICE DAILY bisoprolol fumarate 5 mg tablet 5 mg PO DAILY Patient Comments: TAKE 1 TABLET BY MOUTH DAILY mirtazapine 45 mg tablet 45 mg PO HS Patient Comments: TAKE 1 TABLET BY MOUTH EVERY DAY Referrals Follow up/Referrals: Marly Kumar APRN [Primary Care Provider, Medical] - See instructions Activity Restrictions/Add. Instructions Additional Instructions/Restrictions: At this time it was felt you are safe to be discharged home. If new or worsening symptoms please do not hesitate to return the emergency department. Please take your Tamiflu and steroids as prescribed and follow-up with your doctor early next week to make sure things are headed in the right direction. Clinical Impressions Clinical Impression: Influenza A, Acute exacerbation of chronic obstructive pulmonary disease Print Language Print Language: Occitan Discharge ED Provider: John Paul Puentes HPI General Chief Complaint: Shortness of Breath/Dyspnea Stated Complaint: SOA,Cough,Fever Time Seen by Provider: 10/28/25 10:28 Mode of Arrival: Ambulatory Source of Information: Patient and Relative Description of Symptoms (Recalled from ER Triage Doc. by RN): PATIENT PRESENTS TO ED FOR SHORTNESS OF BREATH, DRY COUGH, AND FEVER. STATES S/S HAVE BEEN PRESENT FOR A COUPLE OF DAYS. DENIES PAIN. History of Present Illness HPI narrative: Patient is a 70-year-old female with past medical history of COPD not on oxygen on control therapy at home who presents emergency department for evaluation of shortness of breath, dry cough, subjective fever. No chest pain. Onset was acute over the last 48 hours with multiple sick contacts with similar symptoms. No other acute complaints at this time. Please note that above description of symptoms, in this electronic medical record under categorization of recalled from ER triage doctor by RN are reflective of an initial nursing assessment, however, is not reflective of my full history and physical exam that was personally taken and clarified. Consequentially, this preceding description of symptoms, which may include the patient's categorized chief complaint in the EMR, do not reflect my personal clinical impression, and the ultimate description of history of present illness and patient stated complaints should be deferred to this section of the note. Unless stated otherwise or congruent with this section of the note, additional signs, symptoms, or incongruence should be interpreted as inaccurate with my clinical impression. Related Data Home Medications ?Medication ?Instructions ?Recorded ?Confirmed atorvastatin 40 mg tablet 40 mg PO HS 04/23/19 10/24/25 omeprazole 40 mg capsule,delayed 40 mg PO DAILY 06/22/19 12/23/25 release aspirin 81 mg chewable tablet 81 mg PO DAILY 04/24/19 10/24/25 nitroglycerin 0.4 mg sublingual 0.4 mg sublingual Q5MINP PRN Chest 04/24/19 10/24/25 tablet Pain acetaminophen 500 mg tablet 1,000 mg PO BIDP PRN pain 08/08/19 10/24/25 budesonide-formoterol HFA 160 2 puff inhalation BID 01/25/25 10/24/25 mcg-4.5 mcg/actuation aerosol inhaler fenofibrate nanocrystallized 145 145 mg PO HS 01/25/25 10/24/25 mg tablet levothyroxine 88 mcg capsule 88 mcg PO DAILY 01/25/25 10/24/25 loratadine 10 mg tablet 10 mg PO DAILY 01/25/25 10/24/25 magnesium oxide 400 mg (241.3 mg 400 mg PO DAILY 01/25/25 10/24/25 magnesium) tablet quetiapine 25 mg tablet 12.5 mg PO HS 01/25/25 10/24/25 tizanidine 4 mg tablet 4 mg PO DAILY PRN muscle spasms 01/25/25 10/24/25 furosemide 40 mg tablet 40 mg PO BID 04/27/25 10/24/25 ropinirole 1 mg tablet 1 mg PO HS 04/27/25 10/24/25 albuterol sulfate 90 mcg/actuation 2 puff inhalation Q4HP PRN 08/23/25 10/24/25 aerosol inhaler (Ventolin HFA) Shortness Of Breath calcium carb-ergocalciferol (vit 1 tab PO DAILY 08/23/25 10/24/25 D2) 600 mg calcium-200 unit tablet midodrine 2.5 mg tablet 2.5 mg PO NEEDED PRN low blood 08/23/25 10/24/25 pressure bisoprolol fumarate 5 mg tablet 5 mg PO DAILY 08/24/25 10/24/25 mirtazapine 45 mg tablet 45 mg PO HS 08/24/25 10/24/25 potassium chloride 10 mEq 10 meq PO BID 08/24/25 10/24/25 tablet,extended release Previous Rx's ?Medication ?Instructions ?Recorded levetiracetam 1,000 mg tablet 1,000 mg PO BID #180 tabs 09/19/25 (Keppra) oseltamivir 75 mg capsule (Tamiflu) 75 mg PO Q12H 5 days #10 caps 10/28/25 prednisone 50 mg tablet 50 mg PO DAILY 4 days #4 tabs 10/28/25 Allergies Allergy/AdvReac Type Severity Reaction Status Date / Time alendronate sodium (From Allergy Unknown I-HIVES Verified 10/24/25 13:38 FOSAMAX) Penicillins (PENICILLINS) Allergy Unknown I-HIVES Verified 10/24/25 13:38 Sulfa (Sulfonamide Allergy Unknown I-HIVES Verified 10/24/25 13:38 Antibiotics) (SULFA (SULFONAMIDE ANTIBIOTICS)) gabapentin Allergy Other Verified 10/24/25 13:38 [facility] Disclaimer: The information contained in this section may have been updated after the patient was seen, as this information can be updated by other users. Medical History Abnormal EMG Carpal tunnel syndrome, right Seizure Atypical seizures cannot exclude psychogenic etiology, PNES. History of pacemaker Arthritis Seizures Renal insufficiency Osteoporosis Heart attack Migraine Hyperlipemia Depression Dementia CHF (congestive heart failure) Afib Surgical History Hx of hysterectomy Hx of lumpectomy Hx of cholecystectomy Family History Other Diabetes Hyperlipidemia Hypertension Social History Smoking Status: Former smoker tobacco type: cigarettes packs per day: 2 second hand exposure: No alcohol intake: never substance use type: other current occupational status: disabled Travel in the last 8 weeks?: None household members: other housing: care home current occupational exposures/hazards: No caffeine: Yes Have you lived/traveled outside [place] in past 30 days?: No Contact w/someone who lives/traveled outside US past 30 days?: No Exposure to someone with infectious disease in past 14 days?: No Do you have a fever (greater than 100.4 F or 38 C)?: No Have you tested positive for COVID-19?: No Exposed to someone with COVID-19 in past 14 days?: No Do you have a sore throat?: No Do you have a cough?: No Do you have any weakness?: No Do you have any diarrhea?: No Are you experiencing any unusual bleeding?: No Do you have any muscle aches/pain?: No Do you have any abdominal pain?: No Are you experiencing loss of taste or smell?: No Other Medical History Have you received the Flu Vaccine for this season: No Have you received the Pneumonia Vaccine: Yes ROS Obtained: Yes Systems reviewed as appropriate & no additional complaints except as documented Physical Exam General General appearance: alert and in no apparent distress Head Head exam: atraumatic and normocephalic Eye Eye exam: Present PERRL and EOMI ENT ENT exam: Present mucous membranes moist Neck Neck exam: Present normal inspection Chest Chest inspection: Present normal inspection and symmetric chest wall rise Respiratory Respiratory exam: Present wheezes (Moderate biphasic wheezing, good air movement); Absent normal lung sounds bilaterally or respiratory distress Cardiovascular Cardiovascular exam: Present regular rate and normal rhythm Abdominal Exam Abdominal exam: Present soft; Absent tenderness Extremities Exam Extremities exam: Present normal inspection Neurological Exam Neurological exam: Present alert Psychiatric Psychiatric exam: Present normal affect Skin Skin exam: Present warm and dry HEART Score HEART Score HEART Score assessment performed?: No Critical Care Critical Care Time Critical Care Time: No Medical Decision Making Marc Inquiry Pt receiving controlled substance: No Vital Signs Vital Signs: 10/28/25 10:23 10/28/25 10:25 10/28/25 10:25 Temperature 98.5 F 98.5 F Temperature Source Oral Pulse Rate 84 84 Pulse Rate [Left] 84 Respiratory Rate 20 20 Blood Pressure 146/81 H 146/81 H Blood Pressure [Right Arm] 146/81 H Blood Pressure Mean [Right Arm] 102 02 Sat by Pulse Oximetry 97 97 97 Oxygen Delivery Method Room Air 10/28/25 10:30 10/28/25 10:30 10/28/25 10:57 Temperature Temperature Source Pulse Rate 72 70 Pulse Rate [Left] Respiratory Rate Blood Pressure 142/71 H 120/64 Blood Pressure [Right Arm] Blood Pressure Mean [Right Arm] 02 Sat by Pulse Oximetry 97 97 95 Oxygen Delivery Method Room Air Room Air Room Air Lab Data Labs: Lab Results 10/28/25 10:24: SARS-CoV-2 (PCR) Not detected, Influenza A Untype (PCR) Detected A, Influenza Type B (PCR) Not detected 10/28/25 10:58: WBC 4.8, RBC 4.18 L, Hgb 12.7, Hct 38.4, MCV 91.9, MCH 30.4, MCHC 33.1, RDW 13.9, Plt Count 236, MPV 11.4 H, Neut % (Auto) 65.2, Lymph % (Auto) 22.3, [place] % (Auto) 10.6 H, Eos % (Auto) 1.3, Baso % (Auto) 0.4, Neut # (Auto) 3.1, Lymph # (Auto) 1.1, [place] # (Auto) 0.5, Eos # (Auto) 0.1, Baso # (Auto) 0.0, Sodium 137, Potassium 3.8, Chloride 102, Carbon Dioxide 27, Anion Gap 11.8, BUN 23 H, Creatinine 1.20 H, Estimated Creat Clear 50, Estimated GFR 44 L, Est GFR ( Amer) 53 L, Glucose 91, Calcium 10.1, Total Bilirubin 0.6, AST 73 H, ALT 48, Alkaline Phosphatase 61, Total Protein 7.9, Albumin 4.6, Globulin 3.3 H, Albumin/Globulin Ratio 1.4 10/28/25 10:58 10/28/25 10:58 Response Orders (Tests/Meds): ED MEDICATIONS Discontinued Medications Generic Name Dose Route Start Last Admin Trade Name Freq PRN Reason Stop Dose Admin Albuterol/Ipratropium 9 ml 10/28/25 10:33 10/28/25 11:06 Ipratropium/Albuterol 3 Ml Neb IH 10/28/25 10:34 9 ml ONCE ONE Administration Azithromycin 500 mg 10/28/25 10:35 10/28/25 11:07 Azithromycin 250mg Tablet PO 10/28/25 10:36 500 mg ONCE ONE Administration Magnesium Sulfate 2 gm in 50 mls @ 50 mls/hr 10/28/25 10:33 10/28/25 11:06 Magnesium Sulfate 2gm/50ml Premix IV 10/28/25 11:32 50 mls/hr ONCE ONE Administration Methylprednisolone Sodium Succinate 125 mg 10/28/25 10:33 10/28/25 11:06 Methylprednisolone Sod Succ 125mg Vial IV 10/28/25 10:34 125 mg ONCE ONE Administration ORDERS Category Date Time Status CXR 2 view (NOT portable) [XR chest 2V] Stat Exams 10/28/25 10:39 Taken CBC w/Auto Diff [Complete Blood Count Auto Diff] Stat Lab 10/28/25 10:58 Completed CMP [Comprehensive Metabolic Panel] Stat Lab 10/28/25 10:58 Completed Rapid PCR Covid and Flu A/B Stat Lab 10/28/25 10:24 Completed ECG Data Tracing #1: ECG Narrative: Independently interpreted by me rate of 71, rhythm is regular, axis is normal, no ST elevation in anatomical contiguous leads, QTc 376. MDM Narrative Medical Decision Narrative: In summary patient is a 70-year-old female with past medical history described above presents emergency department for evaluation of cough and shortness of breath. Patient is hemodynamically stable and nontoxic-appearing upon arrival, afebrile. No chest pain. Differential clues viral induced COPD exacerbation, pneumonia, among others. Workup in totality will be conducted with hematologic labs, chest x-ray, EKG, viral swab. Initial inventions include DuoNebs x 3, steroids, magnesium sulfate. Initial workup reviewed by me no significant leukocytosis no transfusable anemia, RON or critical electrolyte abnormality, swab positive for influenza A. Chest x-ray informally interpreted by me perihilar opacities, no dense lobar opacities or large pneumothorax. Upon repeat evaluation patient continued to saturate well on room air improvement of wheezing continued good air movement no significant respiratory stress. Patient has inhaler with spacer at home already. Given this patient is appropriate for outpatient management at this time although she is high risk will be discharged with Tamiflu given multiple return precautions and verbalized understanding.
--- NOTE | 2025-10-28 10:39 | XR_ITS ---
PROCEDURE INFORMATION: Exam: XR Chest Exam date and time: 10/28/2025 10:48 AM Age: 70 years old Clinical indication: Cough; Additional info: Cough, copd TECHNIQUE: Imaging protocol: Radiologic exam of the chest. Views: 2 views. COMPARISON: CR XR CHEST PORTABLE 07/06/2025 10:04 AM FINDINGS: Tubes, catheters and devices: The left chest wall pacemaker leads end in the right atrium and right ventricle. Lungs: Unremarkable. No consolidation. Pleural spaces: Unremarkable. No pleural effusion. No pneumothorax. Heart/Mediastinum: Unremarkable. No cardiomegaly. Bones/joints: Unremarkable. IMPRESSION: No acute findings.
[2025-10-28] MEDS: METHYLPREDNISOLONE SOD SUCC 125MG VIAL 125 MG IV (11:06)
[2025-10-28] MEDS: MAGNESIUM SULFATE IN WATER 2 GM/50 ML PIGGYBACK IV (11:06)
[2025-10-28] MEDS: IPRATROPIUM/ALBUTEROL 3 ML NEB 9 ML IH (11:06)
[2025-10-28] MEDS: AZITHROMYCIN 250MG TABLET 500 MG PO (11:07)
[2025-10-28 11:11] LABS: Hematocrit 38.4 % (37.0-47.0); Hemoglobin 12.7 g/dL (12.2-16.2); Immature Granulocytes % 0.2 %; Mean Corpuscular HGB Conc 33.1 g/dL (31.8-35.4); Mean Corpuscular Hemoglobin 30.4 pg (27.0-31.2); Mean Corpuscular Volume 91.9 fl (81-99); Nucleated Red Blood Cells % 0 %; Platelet Count 236 K/mm3 (142-424); Red Blood Count 4.18 M/mm3 (4.20-5.40); Red Cell Distribution Width-SD 47.3 fL; White Blood Count 4.8 K/mm3 (4.8-10.8)
[2025-10-28 11:13] LABS: Albumin Level 4.6 g/dl (3.5-5.0); Chloride 102 mmol/L (98-107); Sodium 137 mmol/L (136-145)
[2025-10-28 11:14] LABS: Potassium 3.8 mmoL/L (3.5-5.1)
[2025-10-28 11:16] LABS: Alanine Aminotransferase 48 U/L (12-78); Albumin/Globulin Ratio 1.4 (1.1-1.8); Alkaline Phosphatase 61 U/L (38-126); Anion Gap 11.8 mEq/L (5-15); Aspartate Amino Transferase 73 U/L (14-36); Bilirubin,Total 0.6 mg/dl (0.2-1.3); Blood Urea Nitrogen 23 mg/dl (7-17); Calcium 10.1 mg/dl (8.4-10.2); Carbon Dioxide 27 mmol/L (22.0-30.0); Creatinine Clearance Estimated 50 mL/min (50-200); Creatinine,Serum 1.20 mg/dl (0.52-1.04); Estimated Glomerular Filt Rate 44 ml/min (>60); GFR (African American) 53 ML/MIN (>60); Globulin 3.3 g/dL (1.3-3.2); Glucose 91 mg/dl (74-100); Total Protein,Serum 7.9 g/dl (6.3-8.2)
[2025-10-28 11:32] LABS: Influenza A, PCR Detected (NotDetected)
== END 2025-10-28 12:11 | disposition home or self-care (01) ==
PROVIDERS: Emergency Provider Emergency Medicine; PCP Nurse Practitioner Family
DX: J10.1 Influenza due to other identified influenza virus with other respiratory manifestations (principal); J44.1 Chronic obstructive pulmonary disease with (acute) exacerbation; R50.9 Fever, unspecified; Z87.891 Personal history of nicotine dependence
CPT/HCPCS: 71046; 80053; 85025; 87636; 93005; 96365; 96375; 99284; 99285; J2919; J3475